=== PATIENT | male | born 1950 | race Caucasian/White ===

== ENCOUNTER 2018-04-18 11:48 | Emergency (ER) | payer MEDICARE, SELFPAY ==
[2018-04-18 11:51] VITALS: BP 141/104; PULSE 110; RESP 25; TEMP 36.7; O2SAT 91; BMI 25.2
[2018-04-18 11:59] VITALS: BP 141/104; PULSE 109; RESP 18
--- NOTE | 2018-04-18 12:09 | NURSING ---
NO OLD EKGS
--- NOTE | 2018-04-18 12:19 | EKG12_ITS ---
Test Reason : AFIB Blood Pressure : / mmHG Vent. Rate : 107 BPM Atrial Rate : 107 BPM P-R Int : 280 ms QRS Dur : 108 ms QT Int : 324 ms P-R-T Axes : 000 -60 066 degrees QTc Int : 432 ms Sinus tachycardia with 1st degree A-V block with Premature atrial complexes with Aberrant conduction Left axis deviation Possible Lateral infarct , age undetermined Inferior infarct , age undetermined , cannot be excluded Abnormal ECG Confirmed by COBY WADSWORTH, KEITH ([id number]), multimedia editor MARYLIN ENGLE ([id number]) on 04/21/2018 1:32:35 PM Referred By: EKATERINA Confirmed By:KEITH TENORIO MD
[2018-04-18 12:51] LABS: Absolute Lymphocyte Count 1.45 X10^3/ul (0.83-4.51); Absolute Neutrophil Count 14.3 X10^3/uL (2.0-7.7); Basophil# 0.08 X10^3/uL; Basophil% 0.5 % (0-1); Eosinophil# 0.12 X10^3/uL; Eosinophils% 0.7 % (0-5); Hematocrit 41.4 % (40-54); Hemoglobin 13.4 g/dl (13.0-16.5); Lymphocyte # 1.45 X10^3/ul (4.0); Lymphocyte % 8.5 % (19-41); Mean Corp Hgb Conc 32.4 g/gl (32-36); Mean Corpuscular Hgb 29.9 pg (27.0-32.0); Mean Corpuscular Volume 92.4 fL (80-94); Mean Platelet Vol. 10.7 fl (6.2-12.0); Monocyte# 1.03 X10^3/uL; Neutrophil # 14.29 X10^3/uL (2.7-7.7); Neutrophil % 83.4 % (47-70); Platelet Count 236 K/mm3 (150-450); RBC Distribution Width SD 49.4 fl (35.1-43.9); Red Blood Count 4.48 M/mm3 (4.6-6.2); White Blood Count 17.1 K/mm3 (4.4-11.0)
[2018-04-18 12:52] LABS: POSITIVE COUNT NO; POSITIVE DIFFERENTIAL NO; POSITIVE MORPHOLOGY NO
--- NOTE | 2018-04-18 13:02 | RAD_ITS ---
STUDY: X-RAY CHEST REASON FOR EXAM: Male, 67 years old. Cough. Nausea and vomiting. TECHNIQUE: Single AP portable view of the chest. COMPARISON: None. FINDINGS: EKG electrodes are seen. There is blunting of the left costophrenic angle with mild increased markings at the left lung base. Follow-up is recommended. There is mild cardiac enlargement. Normal mediastinum and merrill. Normal visualized pulmonary arteries. There is atherosclerotic calcification of the aortic arch with tortuosity. There are diffuse degenerative changes of the visualized thoracic spine. Normal visualized ribs, clavicles, and shoulders. There is no demonstrated abnormality of the visualized soft tissue structures of the upper abdomen. RAD/Chest 1 View (Portable) IMPRESSION: Mild increased markings at the left lung base with blunting of the left costophrenic angle. Electronically Signed: Jose Trejo MD at 13:51 EST Tel [phone], Service support ,
[2018-04-18 13:03] LABS: Anion Gap 4 (5-15); BUN 30 mg/dL (7-18); Calcium,Total 9.2 mg/dL (8.5-10.1); Chloride 97 mmol/L (98-107); Creatinine, Serum 0.53 mg/dL (0.70-1.30); EST Glomerular Filtration Rate 167 mL/min (>60); Est Glom Filt Rate - Afr Amer 202 mL/min (>60); Estimated Creatinine Clearance 152.52 ml/min; Glucose 135 mg/dL (74-106); Potassium 4.8 mmol/L (3.5-5.1); Sodium Level 132 mmol/L (136-145)
[2018-04-18 13:17] LABS: BNP,B-Type NATRIURETIC PEPTIDE 196.7 pg/mL (0-100)
[2018-04-18 14:00] VITALS: BP 129/93; PULSE 97; RESP 30; O2SAT 96
[2018-04-18] MEDS: levoFLOXacin IV 500 MG/100 ML BAG 100 MG IV (14:19)
[2018-04-18] MEDS: Ipratropium/Albuterol Sulfate 3 ML AMPUL.NEB INHALATION (14:23)
[2018-04-18 14:24] VITALS: PULSE 99; RESP 21
--- NOTE | 2018-04-18 15:12 | ED.RN ---
RED PATCHES NOTED ON L FOREARM AND ANTECUBITAL AREA, LEVAQUIN STOPPED. FAMILY CONCERNED OF ALLERGY TO IV MEDICATION. NO DUSSEL AWARE.
--- NOTE | 2018-04-18 15:17 | ED.VISSUMM ---
- ER Visit Summary Date of Service: 04/18/18 Chief Complaint: Cough History of Present Illness: The patient is a 67 M with a recent hospitalization at [facility] complicated by respiratory failure. He was doing well at a local group home facility but over the past 2 days has developed a productive cough and fever. He has vomited 1-2 times but has not had abdominal pain or other complaints. His mental status has remained essentially at baseline except for occasional episodes of confusion but no new neurologic symptoms. Physical Examination: Vitals are within normal limits except for a pulse ox of 90% on room air. He is not in distress. His mucous members are somewhat dry. Breath sounds are diminished at both bases but he has an audible productive moist cough. Abdomen is soft and nontender. He has no focal or lateralizing neuro findings. He is alert and oriented x3. Test Results: White blood cell count is 17,100. Chemistries essentially within normal limits. Chest x-ray revealed a left lower lobe infiltrate. Blood and sputum cultures were sent. Urinalysis is pending. Emergency Department Course and Treatment: He was given intravenous Levaquin and started to have a rash around the injection site so was discontinued. I discussed the case at length with his nephew who is his power of compliance attorney. He feels strongly that this is a pneumonia and there is no evidence of any other source of the infection at this time. He has no abdominal pain or tenderness at all. His nephew requested that he be transferred to [facility]. I spoke with the hospitalist through the transfer line but his nephew did notify that he spoke with the measurement department chief clerk of the hospital and the director of the intensive care unit who are going to assume care on a different service but that this is going to be arranged through the transfer line. He has been accepted at [facility] and we are waiting for a bed assignment. Treatment Plan: Transfer to [facility] Disposition: Transfer, stable Impression: Initial encounter healthcare associated pneumonia This note was generated with [employer] dictation software. It may contain incorrect words, spelling, and punctuation that were not noted in review of the chart prior to signing ED Disposition - Plan for ED Patient: Chief Complaint: Nausea/Vomiting/Diarrhea Referrals: Kamilah Lopez [Primary Care Provider] -
--- NOTE | 2018-04-18 15:21 | ED.DCSUM_ITS ---
- ER Visit Summary Date of Service: 04/18/18 Chief Complaint: Cough History of Present Illness: The patient is a 67 M with a recent hospitalization at [facility] complicated by respiratory failure. [facility] but over the past 2 days has developed a productive cough and fever. He has vomited 1-2 times but has not had abdominal pain or other complaints. His mental status has remained essentially at baseline except for occasional episodes of confusion but no new neurologic symptoms. Physical Examination: Vitals are within normal limits except for a pulse ox of 90% on room air. He is not in distress. His mucous members are somewhat dry. Breath sounds are diminished at both bases but he has an audible productive moist cough. Abdomen is soft and nontender. He has no focal or lateralizing neuro findings. He is alert and oriented x3. Test Results: White blood cell count is 17,100. Chemistries essentially within normal limits. Chest x-ray revealed a left lower lobe infiltrate. Blood and sputum cultures were sent. Urinalysis is pending. Emergency Department Course and Treatment: He was given intravenous Levaquin and started to have a rash around the injection site so was discontinued. I discussed the case at length with his nephew who is his power of commonwealth attorney. He feels strongly that this is a pneumonia and there is no evidence of any other source of the infection at this time. He has no abdominal pain or tenderness at all. His nephew requested that he be transferred to [facility]. I spoke with the hospitalist through the transfer line but his nephew did notify that he spoke with the chief operator of the hospital and the director of the intensive care unit who are going to assume care on a different service but that this is going to be arranged through the transfer line. He has been accepted at [facility] and we are waiting for a bed assignment. Treatment Plan: Transfer to [facility] Disposition: Transfer, stable Impression: Initial encounter healthcare associated pneumonia This note was generated with [employer] dictation software. It may contain incorrect words, spelling, and punctuation that were not noted in review of the chart prior to signing ED Disposition - Plan for ED Patient: Chief Complaint: Nausea/Vomiting/Diarrhea Referrals: Kamilah Lopez [Primary Care Provider] -
[2018-04-18] MEDS: Piperacil/Tazobactam 3.375 GM/50 ML ML IV (16:31)
[2018-04-18 16:32] VITALS: BP 135/72; PULSE 93; RESP 21; O2SAT 96
--- NOTE | 2018-04-18 16:58 | NURSING ---
CALLED [facility] FOR BED STATUS
--- NOTE | 2018-04-18 17:06 | NURSING ---
[facility] 3RD FLOOR 321 A NURSE TO NURSE [phone]
--- NOTE | 2018-04-18 17:15 | NURSING ---
CALLED [facility]. ETA 15
[2018-04-18 17:50] VITALS: BP 122/87
--- NOTE | 2018-04-20 21:08 | ED.RN ---
BLOOD CULTURE RESULTS FAXED TO [facility]
--- OUTSIDE RECORDS SUMMARY | 2018-06-11 18:53 | XMS RPT_ITS ---
:1950 Author Organization OHIP Care Team Providers Name Role Phone Dr. Allie Parada Admitting Unavailable Dr. Allie Parada Attending Unavailable Jose Strong Referring Unavailable Hood, Jr Zandra Primary Care Unavailable Parada, Dr. Allie Ruiz Attending Unavailable Hood, Jr Zandra Primary Care Unavailable Parada, Dr. Allie Ruiz Attending Unavailable UNKNOWN, PCP Referring Unavailable Hood, Jr Zandra Primary Care Unavailable Parada, Dr. Allie Ruiz Attending Unavailable Hood, Jr Zandra Primary Care Unavailable Parada, Dr. Allie Ruiz Attending Unavailable Parada, Dr. Allie Ruiz Referring Unavailable Hood, Jr Zandra Primary Care Unavailable Parada, Dr. Allie Ruiz Admitting Unavailable Parada, Dr. Allie Ruiz Admitting Unavailable Parada, Dr. Allie Ruiz Referring Unavailable Hood, Jr Zandra Primary Care Unavailable Ashley, Dr. Shagufta Aguiar Attending Unavailable Parada, Dr. Allie Ruiz Attending Unavailable Hood, Jr Zandra Primary Care Unavailable BRITTANY COTTER Attending Unavailable GIACOMO BYNUM Referring Unavailable Hood, Jr Zandra Primary Care Unavailable Rosendo, Dr. Augustine Wells Attending Unavailable Jacques, Dr. Mika Germain Referring Unavailable Hood, Jr Zandra Primary Care Unavailable GRACIELA BARBOZA Admitting Unavailable CORRECT INFO, NEEDED Referring Unavailable Hood, Jr Zandra Primary Care Unavailable [place] HARDING Attending Unavailable ROSENQUIST, RUBIN W Referring Unavailable ROSENQUIST, RUBIN W Referring Unavailable ROSENQUIST, RUBIN W Referring Unavailable CARLIN, TEJA COYLE Referring Unavailable ROSENQUIST, RUBIN W Referring Unavailable ROSENQUIST, RUBIN W Referring Unavailable ROSENQUIST, RUBIN W Referring Unavailable ROSENQUIST, RUBIN W Referring Unavailable ROSENQUIST, RUBIN W Referring Unavailable ROSENQUIST, RUBIN W Referring Unavailable ROSENQUIST, RUBIN W Attending Unavailable NELLIE, CHRISTY Referring Unavailable ROSENQUIST, RUBIN W Attending Unavailable Сергей Robles Attending Unavailable Gamaliel, Kamilah Primary Care Unavailable TEJA CARLIN Referring Unavailable IMCA Primary Care Unavailable TEJA ORTEGA (PT) Attending Unavailable IMCA Referring Unavailable IMCA Primary Care Unavailable IMCA Referring Unavailable IMCA Primary Care Unavailable IMCA Referring Unavailable IMCA Primary Care Unavailable IMCA Referring Unavailable IMCA Primary Care Unavailable IMCA Referring Unavailable IMCA Primary Care Unavailable TEJA ORTEGA (PT) Attending Unavailable IMCA Referring Unavailable IMCA Primary Care Unavailable TEJA ORTEGA (PT) Attending Unavailable IMCA Referring Unavailable IMCA Primary Care Unavailable IMCA Referring Unavailable IMCA Primary Care Unavailable TEJA ORTEGA (PT) Attending Unavailable IMCA Referring Unavailable IMCA Primary Care Unavailable TEJA ORTEGA (PT) Attending Unavailable IMCA Referring Unavailable IMCA Primary Care Unavailable IMCA Referring Unavailable IMCA Primary Care Unavailable IMCA Referring Unavailable IMCA Primary Care Unavailable IMCA Referring Unavailable IMCA Primary Care Unavailable IMCA Referring Unavailable IMCA Primary Care Unavailable TEJA ORTEGA (PT) Attending Unavailable IMCA Referring Unavailable IMCA Primary Care Unavailable TEJA ORTEGA (PT) Attending Unavailable IMCA Referring Unavailable IMCA Primary Care Unavailable TEJA ORTEGA (PT) Attending Unavailable IMCA Referring Unavailable IMCA Primary Care Unavailable PROBLEMS PROBLEMS DATE TYPE CONDITION / CODE ATTENDING STATUS SOURCE 05/02/2018 Final diagnosis Essential (primary) [facility] hypertension / Hospitals I10(ICD-10) Repository 05/02/2018 Final diagnosis Allergy status to [facility] Active [place] (discharge) penicillin / Hospitals Z88.0(ICD-10) Repository 05/02/2018 Final diagnosis buttermaker continuous churn (current) [facility] use of insulin / Hospitals Z79.4(ICD-10) Repository 05/02/2018 Final diagnosis Acute respiratory [facility], NOUR [facility] ([facility]) failure with Hospitals hypercapnia / Repository J96.02(ICD-10) 05/02/2018 Final diagnosis [facility] failure with hypoxia Hospitals / J96.01(ICD-10) Repository 05/02/2018 Final diagnosis Pneumonitis due to [facility], NOUR Active [facility] ([facility]) inhalation of food Hospitals and vomit / Repository J69.0(ICD-10) 05/02/2018 Final diagnosis Obstructive sleep [facility], NOUR [facility] ([facility]) apnea (adult) Hospitals (pediatric) / Repository G47.33(ICD-10) 05/02/2018 Final diagnosis 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 mellitus with Hospitals hyperglycemia / Repository E11.65(ICD-10) 05/02/2018 Admitting Pneumonitis due to [facility], NOUR Active [facility] diagnosis inhalation of food Hospitals and vomit / Repository J69.0(ICD-10) 05/02/2018 Final diagnosis Hypo[facility]osmolality and [facility] hyponatremia / Hospitals E87.1(ICD-10) Repository 05/02/2018 Final diagnosis Moderate [facility], NOUR [facility] ([facility]) protein-calorie Hospitals malnutrition / Repository E44.0(ICD-10) 05/02/2018 Final diagnosis Bacteremia / [facility], NOUR [facility] ([facility]) R78.81(ICD-10) Hospitals Repository 05/02/2018 Final diagnosis 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[facility], NOUR [facility] ([facility]) cerebral infrc aff Hospitals right dominant side Repository / I69.351(ICD-10) 05/02/2018 Final diagnosis skilled nursing (current) [facility], NOUR [facility]) use of Hospitals anticoagulants / Repository Z79.01(ICD-10) 05/02/2018 Final diagnosis skilled nursing (current) [facility], NOUR [facility] use of inhaled Hospitals steroids / Repository Z79.51(ICD-10) 05/02/2018 Final diagnosis [facility] nicotine dependence Hospitals / Z87.891(ICD-10) Repository 05/02/2018 Final diagnosis Encounter for [facility], NOUR [facility] ([facility]) palliative care / Hospitals Z51.5(ICD-10) Repository 05/02/2018 Final diagnosis Gastrostomy status / [facility], NOUR [facility]) Z93.1(ICD-10) Hospitals Repository 05/02/2018 Final diagnosis Other disorders of [facility], NOUR [facility]) phosphorus Hospitals metabolism / Repository E83.39(ICD-10) 05/02/2018 Final diagnosis Personal history of [facility], NOUR [facility]) malignant neoplasm Hospitals of brain / Repository Z85.841(ICD-10) 05/02/2018 Final diagnosis Esophagitis, [facility], NOUR [facility] unspecified / Hospitals K20.9(ICD-10) Repository 05/02/2018 Final diagnosis Body mass index [facility] ([facility]charge) (BMI) 27.0-27.9, Hospitals adult / Repository Z68.27(ICD-10) 05/02/2018 Final diagnosis Oth bacterial agents [facility] [place] [facility] (discharge) as the cause of Hospitals diseases classd Repository elswhr / B96.89(ICD-10) 05/02/2018 Final diagnosis Emphysema, [facility] / Hospitals J43.9(ICD-10) Repository 05/02/2018 Final diagnosis Bronchitis, not [facility] [place] Active [place] (discharge) specified as acute Hospitals or chronic / Repository J40(ICD-10) 05/02/2018 Final diagnosis Dysphagia following [facility] ([facility]charge) cerebral infarction Hospitals / I69.391(ICD-10) Repository 05/02/2018 Final diagnosis Facial weakness [facility] ([facility]) following cerebral Hospitals infarction / Repository I69.392(ICD-10) 04/04/2018 Final diagnosis Nicotine dependence, Dr. 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 Ashley Active [place] (discharge) Pseudomonas / [facility] J15.1(ICD-10) Repository 04/04/2018 Final diagnosis Compression of brain Dr. Ashley Active [place] (discharge) / G93.5(ICD-10) [facility] Repository 04/04/2018 Final diagnosis Cerebral edema / Dr. Ashley Active [place] (discharge) G93.6(ICD-10) [facility] Repository 04/04/2018 Final diagnosis Pneumonia due to Dr. Ashley [facility]) Methicillin [facility] resistant Repository Staphylococcus aureus / J15.212(ICD-10) 04/04/[address] Ashley Active [place] (discharge) encephalopathy / [facility] G93.41(ICD-10) Repository 04/04/2018 Final diagnosis Toxic encephalopathy Dr. Ashley Active [place] (discharge) / G92(ICD-10) [facility] Repository 04/04/2018 Final diagnosis Atelectasis / Dr. Ashley Active [place] (discharge) J98.11(ICD-10) [facility] Repository 04/04/2018 Final diagnosis Hemiplegia, Dr. Ashley Active [place] (discharge) unspecified [facility] affecting right Repository dominant side / G81.91(ICD-10) 04/04/2018 Final diagnosis Other sites of Dr. Ashley Active [place] (discharge) candidiasis / [facility] B37.89(ICD-10) Repository 04/04/2018 Final diagnosis Acute embolism and Dr. Ashley Active [place] (discharge) [facility] veins of l up extrem Repository / I82.612(ICD-10) 04/04/2018 Final diagnosis Hyperosmolality and Dr. Ashley Active [place] (discharge) hypernatremia / [facility] E87.0(ICD-10) Repository 04/04/2018 Final diagnosis Oth postproc Dr. Ashley Active [place] (discharge) complications and [facility] disorders of nervous Repository sys / G97.82(ICD-10) 04/04/2018 Final diagnosis ACQUIRED ABSENCE OF Dr. Ashley Active [place] (discharge) LUNG / Z90.2(ICD-10) [facility] Repository 04/04/2018 Final diagnosis Diplopia / Dr. Ashley Active [place] (discharge) H53.2(ICD-10) [facility] Repository 04/04/2018 Final diagnosis Other esophagitis / Dr. Ashley Active [place] (discharge) K20.8(ICD-10) [facility] Repository 04/04/2018 Final diagnosis Dysarthria and Dr. Ashley Active [place] (discharge) anarthria / [facility] R47.1(ICD-10) Repository 04/04/2018 Final diagnosis Retention of urineAshley Dr. Active [place] (discharge) unspecified / [facility] R33.9(ICD-10) Repository 04/04/2018 Final diagnosis DysphagiaAshley Dr. Active [place] (discharge) oropharyngeal phase [facility] / R13.12(ICD-10) Repository 04/04/2018 Final diagnosis Physical restraint Dr. Ashley Active [place] (discharge) status / [facility] Z78.1(ICD-10) Repository 04/04/2018 Final diagnosis Facial weakness / Dr. Ashley Active [place] (discharge) R29.810(ICD-10) [facility] Repository 04/04/2018 Final diagnosis NIHSS score 7 / Dr. Ashley Active [place] (discharge) R29.707(ICD-10) [facility] Repository 04/04/2018 Final diagnosis Altered mental Dr. Ashley Active [place] (discharge) status, unspecified [facility] / R41.82(ICD-10) Repository 04/04/[address] Active [place] (discharge) unspecified / [facility] K59.00(ICD-10) Repository 04/04/[address] obstructive [address] Ashley Active [place] (discharge) pulmonary disease, [facility] unspecified / Repository J44.9(ICD-10) 04/04/2018 Final diagnosis Pressure ulcer of Dr. Ashley Active [place] (discharge) right buttock, stage [facility] 1 / L89.311(ICD-10) Repository 04/04/[address] Active [place] (discharge) unspecified / [facility] G24.9(ICD-10) Repository 04/04/2018 Final diagnosis NIHSS score 18 / Dr. Ashley Active [place] (discharge) R29.718(ICD-10) [facility] Repository 04/04/2018 Final diagnosis Hyperkalemia / Dr. Ashley Active [place] (discharge) E87.5(ICD-10) [facility] Repository 04/04/2018 Final diagnosis Other disorders of Dr. Ashley Active [place] (discharge) meninges, not [facility] elsewhere classified Repository / G96.19(ICD-10) 02/10/2018 Final diagnosis Benign neoplasm of Tal, Active [place] (discharge) [facility], [facility] unspecified / Repository D32.9(ICD-10) 02/10/2018 Final diagnosis Type [address] Tal Active [place] (discharge) mellitus without [facility] complications / Repository E11.9(ICD-10) 02/10/2018 Active Benign neoplasm of Dr. Tal Active [facility] unspecified / Repository D32.9(ICD-10) 02/10/2018 Admitting Benign neoplasm of Dr. Tal Active [place] diagnosis mening, [facility] unspecified / Repository D32.9(ICD-10) 12/15/[address] Tal Active [place] diagnosis unspecified behavior [facility] of brain / Repository D49.6(ICD-10) 10/01/2017 Active Low back pain / NA Active [place] M54.5(ICD-10) Clinic Other [place] Repository 10/01/2017 Active Other chronic pain / NA Active [place] G89.29(ICD-10) Clinic Other [place] Repository 10/01/2017 Active Cervicalgia / NA Active [place] M54.2(ICD-10) Clinic Other [place] Repository 10/01/2017 Active Other malaise / NA Active [place] R53.81(ICD-10) Clinic Other [place] Repository 10/01/2017 Active Unspecified NA Active [place] abnormalities of Clinic Other gait and mobility / [place] R26.9(ICD-10) Repository 09/15/2017 Active Unknown / NA Active [place] UNK(Unknown) Clinic Other [place] Repository 06/07/2017 Admitting Unknown / NA Active [facility] diagnosis UNK(Unknown) Health System Repository PROCEDURES PROCEDURES DATE CODE DESCRIPTION STATUS SOURCE 03/18/2018 [id number](ICD10- [id number] Completed [facility] Hospitals Repository 03/14/2018 62P520Z(ICD10- 33Y855B Completed [facility]) Hospitals Repository 02/24/2018 319Z1XO(ICD10- 542D3MJ Completed [facility]) Hospitals Repository 02/21/2018 4AV70JX(ICD10- 7ZK69EK [facility]pleted [facility] Repository 02/16/2018 7JW35US(ICD10- 9UD91UM [facility]pleted [facility] Repository 02/16/2018 [id number](ICD10- 4LDB5LL Completed [facility] Repository 02/15/2018 84G931R(ICD10- 88E604U [facility]pleted [facility] Repository 02/15/2018 3C1V98M(ICD10- 1U1Z51M Completed [facility] Repository 02/15/2018 [id number](ICD10- 9SP7EKH Completed [facility] Repository 02/15/2018 4NO79WS(ICD10- 7EZ61KF Completed [facility] Repository 02/11/2018 65L79ZW(ICD10- 29S93XS Completed [facility] Repository 02/11/2018 5BN60JD(ICD10- 5DK33HZ Completed [facility] Repository 02/11/2018 28Q89JW(ICD10- 40S96VK Completed [facility] Repository 02/11/2018 4E33IUI(ICD10- 1C17NRL Completed [facility] Repository 02/10/2018 90171([facility]PCS 31450 Completed [facility]) Hospitals Repository 02/10/2018 91295([facility]PCS 23165 Completed [facility] Hospitals Repository 02/10/2018 99749([facility]PCS 73939 Completed [facility] Hospitals Repository 02/10/2018 92471([facility]PCS 18344 Completed [facility] Hospitals Repository 02/10/2018 70101([facility]PCS 74062 Completed [facility] Hospitals Repository RESULTS RESULTS GLUCOSE-POCT Collected: 05/02/2018 Status: F Source: [facility] 2:48 PM HOSPITALS REPOSITORY TYPE CODE TESTS RESULT OUT OF RANGE REFERENCE UNITS LAB GLUP(LOINC) 74 - 99 mg/dL High 151 GLUCOSE-POCT Performed By: #### GLUPO #### [facility] [address] [place] [address] GLUCOSE-POCT Collected: 05/02/2018 Status: F Source: [facility] 1:13 PM HOSPITALS REPOSITORY TYPE CODE TESTS RESULT OUT OF RANGE REFERENCE UNITS LAB GLUP(LOINC) 74 - 99 mg/dL High 168 GLUCOSE-POCT Performed By: #### GLUPO #### [facility] [address] [place] [id number] CBC Collected: 05/02/2018 Status: F Source: [facility] 8:05 HOSPITALS REPOSITORY TYPE CODE TESTS RESULT OUT OF REFERENCE UNITS RANGE LAB WBCR(LOINC 4.4 - 11.3 x10E9/L ) WBC High 14.0 LAB NRBC(LOINC 0.0-0.0 /100 WBC ) NUCLEATED RBC 0.0 LAB RBCCT(LOIN 4.50 - 5.90 x10E12/L C) RBC 4.65 LAB HGB(LOINC) 13.5 - 17.5 g/dL HGB 13.5 LAB HCT(LOINC) 41.0 - 52.0 % HCT 43.6 LAB MCV(LOINC) 80 - 100 fL MCV 94 LAB MCHC2(LOIN 32.0 - 36.0 g/dL C) Low MCHC 31.0 LAB PLTCT(LOIN 150 - 450 x10E9/L C) PLT 301 LAB RDWCV(LOIN 11.5 - 14.5 % C) RDW-CV 14.5 Performed By: #### CBC #### [facility] [address] [place] [id number] RENAL FUNCTION PANEL Collected: 05/02/2018 Status: F Source: [facility] 8:[address] [place] [address] REPOSITORY TYPE CODE TESTS RESULT OUT OF REFERENCE UNITS RANGE LAB GLU(LOINC) 74 - 99 mg/dL GLUCOSE High 191 LAB SOD(LOINC) 136 - 145 mmol/L SODIUM 138 LAB K(LOINC) 3.5 - 5.3 mmol/L POTASSIUM 4.9 LAB CHLOR(LOIN 98 - 107 mmol/L C) CHLORIDE 98 LAB BIC(LOINC) 21 - 32 mmol/L BICARBONATE 30 LAB ANGAP(LOIN 10 - 20 mmol/L C) ANION GAP 15 LAB UREA(LOINC 6 - 23 mg/dL ) UREA High NITROGEN 37 LAB CREA(LOINC 0.50 - 1.30 mg/dL ) Low CREATININE 0.45 LAB GFRFN(LOIN >60 mL/min/1.7 C) 3m2 GFR-NON AM. >60 LAB GFRAA(LOIN >60 mL/min/1.7 C) 3m2 GFR- AM. >60 Result Comment: CALCULATIONS OF ESTIMATED GFR ARE PERFORMED USING THE MDRD STUDY EQUATION FOR THE IDMS-TRACEABLE CREATININE METHODS. CLIN CHEM 2007;53:766-72 LAB CA(LOINC) 8.6 - 10.6 mg/dL CALCIUM 9.7 LAB PHOS(LOINC) 2.5 - 4.9 mg/dL PHOSPHORUS 3.0 Result Comment: The performance characteristics of phosphorus testing in heparinized plasma have been validated by the individual laboratory site where testing is performed. Testing on heparinized plasma is not approved by the FDA; however, such approval is not necessary. LAB ALB(LOINC) 3.4 - 5.0 g/dL Low ALBUMIN 3.0 Performed By: #### RENAL #### [facility] [address] [place] [address] GLUCOSE-POCT Collected: 05/02/2018 Status: F Source: [facility] 5:32 AM [facility] REPOSITORY TYPE CODE TESTS RESULT OUT OF RANGE REFERENCE UNITS LAB GLUP(LOINC) 74 - 99 mg/dL High 174 GLUCOSE-POCT Performed By: #### GLUPO #### [facility] [address] [place] [address] GLUCOSE-POCT Collected: 05/02/2018 Status: F Source: [facility] 12:28 AM HOSPITALS REPOSITORY TYPE CODE TESTS RESULT OUT OF RANGE REFERENCE UNITS LAB GLUP(LOINC) 74 - 99 mg/dL High 151 GLUCOSE-POCT Performed By: #### GLUPO #### [facility] [address] [place] [address] GLUCOSE-POCT Collected: 05/01/2018 Status: F Source: [facility] 8:20 PM HOSPITALS REPOSITORY TYPE CODE TESTS RESULT OUT OF RANGE REFERENCE UNITS LAB GLUP(LOINC) 74 - 99 mg/dL High 176 GLUCOSE-POCT Performed By: #### GLUPO #### [facility] [address] [place] [address] GLUCOSE-POCT Collected: 05/01/2018 Status: F Source: [facility] 3:29 PM [facility] REPOSITORY TYPE CODE TESTS RESULT OUT OF RANGE REFERENCE UNITS LAB GLUP(LOINC) 74 - 99 mg/dL High 162 GLUCOSE-POCT Performed By: #### GLUPO #### [facility] [address] [place] [address] DAILY PROGRESS Observed: 05/01/2018 Status: COMPLETED Source: [facility]MEDICINE 1:16 PM HOSPITALS REPOSITORY Service: Medicine Subjective Data: DIPESH BERMUDEZ is a 67 year old Male who is Hospital Day # 14. 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 Admitted to medicine. 05/01: . The patient states he looked okay and his only complaint is a mild headache which he also complained of yesterday. Patient states this is an ongoing problem. Patient denies any other pain, difficulty breathing, nausea vomiting, or any other issues at this time. Objective Data: Objective Information: ---- Intake and Output ----- Mn/Dy/Year TimeIntakeOutputNet May 01, 2018 6:00 [id number] Apr 30, 2018 10:00 [id number] Apr 30, 2018 2:00 [id number] The Intake and Output Totals for the last 24 hours are: IntakeOutputNet 3320nullnull T PRBPSpO2 [id number]/8898% Date/Time05/01 6: 6: 6: 6: 6:58 Range(35.9C - 37.1C ) (71 - 82 ) (18 - 18 ) (129 - 137 )/ (74 - 88 ) (92% - 98% ) Highest temp of 37.1 C was recorded at 04/30 15:25 Physical exam: General: Vitals noted, no acute distress. Afebrile. Alert and oriented x 1. Head: atraumatic and normocephalic Eyes: Pupils equal round reactive to light, EOMs are intact, conjunctivae is not injected. Oropharynx: no trismus or drooling, buccal mucosa is moist. Neck: Supple, full range of motion, Cardiac: Regular rate and rhythm. No murmurs noted. Pulmonary: Lungs clear bilaterally with good aeration. No adventitious breath sounds. No wheezes rales or rhonchi. No accessory muscle use no retraction noted. Abdomen: Soft, Nontender. No guarding, rigidity, or distention. Normoactive bowel sounds. No pulsatile masses, no bruits. Extremities: No pitting edema. Full range of motion. Distal pulses are intact. Skin: No rash seen. Skin is warm and dry Neuro: Patient is alert and oriented x1. Speech is clear. There is no asymmetry with facial grimaces, and no tongue deviation. Patient moves all extremities independently although minimal range of motion of lower extremities. Hospital course: History is provided by the patient and we reviewed the medical records. Vital signs and nurses notes were reviewed. Patient's CBC shows a white blood cell count of 13.2, hemoglobin 12.8 hematocrit is 42.8, platelets are normal. Patient's renal function panel is within normal limits other than a glucose of 109, chloride 96, BUN of 37, creatinine 0.47, and albumin low at 2.9 Patient is awaiting precertification to return to his shelter facility Medication: Medications: Continuous Medications No continuous medications are active Scheduled Medications 1. Artificial Tears (Preservative Free): 2 drop(s) Both Eyes Every 4 Hours 2. Atorvastatin: 40 mg Oral Daily 3. Budesonide 0.5 mg/ 2 mL Nebulizer Soln: 2 mL Inhalation Every 12 Hours 4. Docusate Oral Liquid: 100 mg Oral 2 Times a Day 5. Enoxaparin SubCutaneous: 40 mg SubCutaneous Every 24 Hours 6. Esomeprazole Oral Packet: 40 mg NasoGastric Tube 2 Times a Day 7. Formoterol 20 microgram/ 2 mL Neb Soln: 2 mL Inhalation Every 12 Hours 8. guaiFENesin Oral Liquid: 400 mg Oral Every 6 Hours 9. Insulin Glargine (Lantus) Injectable: 15 unit(s) SubCutaneous Every 24 Hours 10. Insulin Lispro Mild Corrective Scale: unit(s) SubCutaneous Every 4 Hours 11. Nystatin 100,000 Units/ gram Topical: 1 application(s) Topical 3 Times a Day 12. Saliva Substitute: 15 mL Oral 4 Times a Day 13. Silodosin (NON - Formulary): 8 mg Oral Daily 14. Simethicone Oral Liquid Drops: 80 mg Oral 4 Times a Day After Meals 15. Valproic Acid (Depakene) Oral Liquid: 500 mg PEG Tube <User Schedule> PRN Medications 1. Acetaminophen Oral Liquid: 650 mg Gastrostomy Tube Every 4 Hours 2. Albuterol 2.5 mg/ 3 mL Nebulizer Soln: 3 mL Inhalation Every 6 Hours 3. Dextrose 50% in Water Injectable: 25 gram(s) IntraVenous Push Every 15 Minutes 4. Glucagon Injectable: 1 mg IntraMuscular Every 15 Minutes 5. Polyethylene Glycol: 17 gram(s) Oral Daily Recent Lab Results: Results: I have reviewed these laboratory results: Complete Blood Count Trending View [id number] 08:15:00 -Apr-2018 08:30:00 White Blood Cell Count13.2 H 11.8 H Nucleated Erythrocyte Count0.0 0.0 Red Blood Cell Count4.36 L 4.73 HGB12.8 L 13.8 HCT42.8 45.4 MCV98 96 MCHC29.9 L 30.4 L GTP569 187 RDW-CV14.7 H 14.7 H Renal Function Panel Trending View [id number] 08:15:00 -Apr-2018 08:30:00 Glucose, Cyfsz414 H 173 H NA137 136 K4.8 4.7 CL96 L 100 Bicarbonate, Serum31 26 Anion Gap, Serum15 15 BUN37 H 37 H CREAT0.47 L 0.44 L GFR-Non >60 >60 GFR->60 >60 Calcium, Serum9.6 9.0 Phosphorus, Serum3.5 3.0 ALB2.9 L 2.7 L Assessment and Plan: Additional Dx: Respiratory failure with hypoxia: Entered Date: 28-Apr-2018 18:11 Hyponatremia: Entered Date: 28-Apr-2018 18:09 Bacteremia: Entered Date: 24-Apr-2018 21:10 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 continuous churn current use of insulin: Entered Date: 19-Apr-2018 19:36 Type 2 diabetes mellitus without complication: Entered Date: 19-Apr-2018 19:36 COPD (chronic obstructive pulmonary disease): Entered Date: 19-Apr-2018 19:36 Pneumonia: Entered Date: 18-Apr-2018 21:38 Assessment: This is a 67 year old male with history significant for HTN, type II DM, COPD, left lung resection in (for unclear reasons), CYNTHIA, and meningioma s/p craniotomy with resection 2013 (at [facility]) who was recently admitted 02/10/18-04/04/18 for meningioma resection with 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 Admitted to medicine. In a shared visit with Dr. Harding # PNA: - Pulmonology consulted -> signed off. Likely recurrent aspiration pneumonia - Chest CT 04/22 to assist with further plan for antibiotics --> Bronchial wall thickening predominantly in the lower lobes, and left lower lobe tree-in-bud opacity. Bronchiolitis/small airway disease, likely infectious in etiology. Pulmonary recommends to continue antibiotics x 2 weeks course. - One set of blood cultures was sent at [facility] 04/18 - per phone requested result on 04/22 --> aerobic vial positive for gram negative rods and 04/23 Breveundimonis diminuta - roman sensitive reported. - Blood cultures from 04/18 [place] negative -final. - ID consulted: started on ceftriaxone 2 gm every 24 hours for total of 10 days - Ceftriaxone completed course on 04/27 - continue EZ pap and vest therapy - weaned off supplemental 02. Satting 92-96% on RA - bronchial hygiene - spiritual support - repeat BC, UA, UC all negative with no growth on 04/29 - No need for further antibiotics at this time. Patient is stable with no fevers, no new oxygen requirement, a stable white blood cell count, no pain, no shortness of breath, patient is asymptomatic, and the workup shows no signs of current infection. - decreased WBC on 04/30, downtrending - Updated nephew Donta, he agrees with plan for pt to return to [facility] - Infectious disease felt the patient had no antibiotic requirements at this time. - Patient is ready to return to the shelter facility. # COPD: - continue inhaled formoterol and budesonide - hold off with Advair as he is unable to comply with medication administration - continue PRN albuterol nebulizer treatments # Dysphagia s/p PEG tube placement: - repeat MBS 04/21 with speech therapy recommending to continue NPO with PEG tube feedings. - Repeat MBSS in 2-3 months. - NPO status with PEG tube feedings - continue Diabetic Source tube feedings and free water flushes # Grade D esophagitis: - continue PPI BID (plan was for him to be on this for 3 months following EGD on 02/21/18) - arranged for outpatient GI follow up on 06/06/18 # Type II DM: - continue Lantus 15 units daily (home dose 30 units daily) - ISS - hypo-/ hyperglycemia protocol # CYNTHIA: - continue CPAP at night # DVT Prophylaxis: - enoxaparin, b/l SCD Code status: - DNAR/DNI # Discharge disposition: - pt was at SNF prior to going to [facility]. Anel Macias reporting that has mild cognitive deficits at baseline and has a low IQ. - PT recommending SNF - anel Macias updated. He would like him to return to prior SNF - No need for further antibiotics at this time. Patient is stable with no fevers, no new oxygen requirement, a stable white blood cell count, no pain, no shortness of breath, patient is asymptomatic, and the workup shows no signs of current infection. - decreased WBC on 04/30, downtrending - Updated kassandraew Donta, he agrees with plan for pt to return to [facility] - Infectious disease felt the patient had no antibiotic requirements at this time. - Patient is ready to return to the shelter facility. - SW aware, waiting on precert Signature/Cosignature/Attestation: Attending Only - Shared Visit with Advanced Practice ProviderThis is a shared visit. I have reviewed the Advanced Practice Providers encounter note, approve the Advanced Practice Providers documentation, and provide the following additional information from my personal encounter. 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 Admitted to medicine. # PNA: - Pulmonology consulted -> signed off. Likely recurrent aspiration pneumonia - Chest CT 04/22 to assist with further plan for antibiotics --> Bronchial wall thickening predominantly in the lower lobes, and left lower lobe tree-in-bud opacity. Bronchiolitis/small airway disease, likely infectious in etiology. Pulmonary recommends to continue antibiotics x 2 weeks course. - One set of blood cultures was sent at [facility] 04/18 - per phone requested result on 04/22 --> aerobic vial positive for gram negative rods and 04/23 Breveundimonis diminuta - roman sensitive reported. - Blood cultures from 04/18 [place] negative -final. - ID consulted: started on ceftriaxone 2 gm every 24 hours for total of 10 days- finished 04/27 - repeat BC, UA, UC all negative with no growth on 04/29 - No need for further antibiotics at this time. Patient is stable with no fevers, no new oxygen requirement, a stable white blood cell count, no pain, no shortness of breath, patient is asymptomatic, and the workup shows no signs of current infection. - Attempted to update his nephew Donta on 04/29 but was unable to reach him. I left a message for him to call back. - Infectious disease felt the patient had no antibiotic requirements at this time. - Patient is ready to return to the shelter facility. rest of the plan per the HANDLE SANDER OPERATOR note. Electronic Signatures: Nam Muro (PAC) (Signed 01-May-2018 13:22) Authored: Service, Subjective Data, Objective Data, Assessment and Plan, Signature/Cosignature/Attestation Phoenix Harding) (Signed 02-May-2018 07:51) Authored: Signature/Cosignature/Attestation Co-Signer: Service, Subjective Data, Objective Data, Assessment and Plan, Signature/Cosignature/Attestation Last Updated: 02-May-2018 07:51 by Phoenix Harding) GLUCOSE-POCT Collected: 05/01/2018 Status: F Source: [facility]ABEL 11:12 AM [facility]OS[facility]ITALS REPOSITORY TYPE CODE TESTS RESULT OUT OF RANGE REFERENCE UNITS LAB GLUP(LOINC) 74 - 99 mg/dL High 177 GLUCOSE-POCT Performed By: #### GLUPO #### [facility] [id number] [place] [id number] CBC Collected: 05/01/2018 Status: F Source: [facility] 8:15 AM HOSPITALS REPOSITORY TYPE CODE TESTS RESULT OUT OF REFERENCE UNITS RANGE LAB WBCR(LOINC 4.4 - 11.3 x10E9/L ) WBC High 13.2 LAB NRBC(LOINC 0.0-0.0 /100 WBC ) NUCLEATED RBC 0.0 LAB RBCCT(LOIN 4.50 - 5.90 x10E12/L C) Low RBC 4.36 LAB HGB(LOINC) 13.5 - 17.5 g/dL Low HGB 12.8 LAB HCT(LOINC) 41.0 - 52.0 % HCT 42.8 LAB MCV(LOINC) 80 - 100 fL MCV 98 LAB MCHC2(LOIN 32.0 - 36.0 g/dL C) Low MCHC 29.9 LAB PLTCT(LOIN 150 - 450 x10E9/L C) PLT 282 LAB RDWCV(LOIN 11.5 - 14.5 % C) High RDW-CV 14.7 Performed By: #### CBC #### [facility] [address] [place] [id number] RENAL FUNCTION PANEL Collected: 05/01/2018 Status: F Source: [facility] 8:15 AM HOSPITALS REPOSITORY TYPE CODE TESTS RESULT OUT OF REFERENCE UNITS RANGE LAB GLU(LOINC) 74 - 99 mg/dL GLUCOSE High 109 LAB SOD(LOINC) 136 - 145 mmol/L SODIUM 137 LAB K(LOINC) 3.5 - 5.3 mmol/L POTASSIUM 4.8 LAB CHLOR(LOIN 98 - 107 mmol/L C) Low CHLORIDE 96 LAB BIC(LOINC) 21 - 32 mmol/L BICARBONATE 31 LAB ANGAP(LOIN 10 - 20 mmol/L C) ANION GAP 15 LAB UREA(LOINC 6 - 23 mg/dL ) UREA High NITROGEN 37 LAB CREA(LOINC 0.50 - 1.30 mg/dL ) Low CREATININE 0.47 LAB GFRFN(LOIN >60 mL/min/1.7 C) 3m2 GFR-NON AM. >60 LAB GFRAA(LOIN >60 mL/min/1.7 C) 3m2 GFR- AM. >60 Result Comment: CALCULATIONS OF ESTIMATED GFR ARE PERFORMED USING THE MDRD STUDY EQUATION FOR THE IDMS-TRACEABLE CREATININE METHODS. CLIN CHEM 2007;53:766-72 LAB CA(LOINC) 8.6 - 10.6 mg/dL CALCIUM 9.6 LAB PHOS(LOINC) 2.5 - 4.9 mg/dL PHOSPHORUS 3.5 Result Comment: The performance characteristics of phosphorus testing in heparinized plasma have been validated by the individual laboratory site where testing is performed. Testing on heparinized plasma is not approved by the FDA; however, such approval is not necessary. LAB ALB(LOINC) 3.4 - 5.0 g/dL Low ALBUMIN 2.9 Performed By: #### RENAL #### [facility] [id number] [place] [address] GLUCOSE-POCT Collected: 05/01/2018 Status: F Source: IDABEL 7:11 AM [facility] REPOSITORY TYPE CODE TESTS RESULT OUT OF RANGE REFERENCE UNITS LAB GLUP(LOINC) 74 - 99 mg/dL High 123 GLUCOSE-POCT Performed By: #### GLUPO #### [facility] [address] [place] [address] GLUCOSE-POCT Collected: 05/01/2018 Status: F Source: [facility] 12:07 AM [facility]OSPITALS REPOSITORY TYPE CODE TESTS RESULT OUT OF RANGE REFERENCE UNITS LAB GLUP(LOINC) 74 - 99 mg/dL High 168 GLUCOSE-POCT Performed By: #### GLUPO #### [facility] [address] [place] [address] GLUCOSE-POCT Collected: 04/30/2018 Status: F Source: IDABEL 8:11 PM HOSPITALS REPOSITORY TYPE CODE TESTS RESULT OUT OF RANGE REFERENCE UNITS LAB GLUP(LOINC) 74 - 99 mg/dL High 125 GLUCOSE-POCT Performed By: #### GLUPO #### [facility] [address] [place] [address] DAILY PROGRESS Observed: 04/30/2018 Status: COMPLETED Source: [facility]ERS[facility] NOTE-MEDICINE 4:41 PM HOSPITALS REPOSITORY Service: Medicine Subjective Data: DIPESH BERMUDEZ is a 67 year old Male who is Hospital Day # 13. 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 Admitted to medicine. today, 04/30, the patient states he's had a slight frontal headache that started 2 weeks ago, however he has not mentioned this before. Patient denies any other pain or complaints. Overnight Events: Patient had an uneventful night. Objective Data: Objective Information: ---- Intake and Output ----- Mn/Dy/Year TimeIntakeOutputNet Apr 30, 2018 2:00 [id number] Apr 29, 2018 10:00 [id number] The Intake and Output Totals for the last 24 hours are: IntakeOutputNet 300nullnull T PRBPSpO2 [id number]/7492% Date/Time04/30 15: 15: 15: 15: 15:25 Range(36.7C - 37.1C ) (79 - 85 ) (18 - 18 ) (125 - 133 )/ (74 - 88 ) (92% - 96% ) Highest temp of 37.1 C was recorded at 12 15:25 Physical exam: General: Vitals noted, no acute distress. Afebrile. Alert and oriented to name only today, but is pleasant and cooperative. Head: atraumatic and normocephalic Eyes: Pupils equal round reactive to light, EOMs are intact, conjunctivae is not injected. Oropharynx: no trismus or drooling, buccal mucosa is moist. Neck: Supple, full range of motion, Cardiac: Regular rate and rhythm. No murmurs noted. Pulmonary: Lungs clear bilaterally with good aeration. No adventitious breath sounds. No wheezes rales or rhonchi. No accessory muscle use no retraction noted. Abdomen: Soft, Nontender. No guarding, rigidity, or distention. Normoactive bowel sounds. No pulsatile masses, no bruits. Extremities: No pitting edema. Full range of motion to upper extremities but decreased range of motion to lower extremities. Distal pulses are intact. Skin: No rash seen. Skin is warm and dry Neuro: Patient is alert and oriented to person only today. Speech is clear. There is no asymmetry with facial grimaces, and no tongue deviation. Patient moves all extremities independently, but has very little ROM to lower extremities. Hospital course: History is provided by the patient and we reviewed the medical records. Vital signs and nurses notes were reviewed. Patient's CBC today reveals a decreased white blood cell count 11.8, H&H, and platelets were within normal limits. Overall the CBC is improved from the prior study. The renal function panel is within normal limits other than a glucose of 173, BUN of 37, creatinine low at 0.44, and albumin low at 2.7. We discussed all the findings result etc. and ID consult recommendations with the patient's nephew Donta. He is pleased about the downtrend of the WBC count and agrees with the plan for patient to return to [facility] in [place], [place]. Per no precertification yet. Medication: Medications: Continuous Medications No continuous medications are active Scheduled Medications 1. Artificial Tears (Preservative Free): 2 drop(s) Both Eyes Every 4 Hours 2. Atorvastatin: 40 mg Oral Daily 3. Budesonide 0.5 mg/ 2 mL Nebulizer Soln: 2 mL Inhalation Every 12 Hours 4. Docusate Oral Liquid: 100 mg Oral 2 Times a Day 5. Enoxaparin SubCutaneous: 40 mg SubCutaneous Every 24 Hours 6. Esomeprazole Oral Packet: 40 mg NasoGastric Tube 2 Times a Day 7. Formoterol 20 microgram/ 2 mL Neb Soln: 2 mL Inhalation Every 12 Hours 8. guaiFENesin Oral Liquid: 400 mg Oral Every 6 Hours 9. Insulin Glargine (Lantus) Injectable: 15 unit(s) SubCutaneous Every 24 Hours 10. Insulin Lispro Mild Corrective Scale: unit(s) SubCutaneous Every 4 Hours 11. Nystatin 100,000 Units/ gram Topical: 1 application(s) Topical 3 Times a Day 12. Saliva Substitute: 15 mL Oral 4 Times a Day 13. Silodosin (NON - Formulary): 8 mg Oral Daily 14. Simethicone Oral Liquid Drops: 80 mg Oral 4 Times a Day After Meals 15. Valproic Acid (Depakene) Oral Liquid: 500 mg PEG Tube <User Schedule> PRN Medications 1. Acetaminophen Oral Liquid: 650 mg Gastrostomy Tube Every 4 Hours 2. Albuterol 2.5 mg/ 3 mL Nebulizer Soln: 3 mL Inhalation Every 6 Hours 3. Dextrose 50% in Water Injectable: 25 gram(s) IntraVenous Push Every 15 Minutes 4. Glucagon Injectable: 1 mg IntraMuscular Every 15 Minutes 5. Polyethylene Glycol: 17 gram(s) Oral Daily Recent Lab Results: Results: I have reviewed these laboratory results: Complete Blood Count Trending View [id number] 08:30:00 29-Apr-2018 06:24:00 White Blood Cell Count11.8 H 13.6 H Nucleated Erythrocyte Count0.0 0.0 Red Blood Cell Count4.73 4.45 L HGB13.8 13.0 L HCT45.4 41.6 MCV96 93 MCHC30.4 L 31.3 L JTW933 290 RDW-CV14.7 H 14.7 H Renal Function Panel Trending View [id number] 08:30:00 29-Apr-2018 06:24:00 Glucose, Tbwta243 H 170 H NA136 135 L K4.7 4.6 CL100 96 L Bicarbonate, Serum26 32 Anion Gap, Serum15 12 BUN37 H 37 H CREAT0.44 L 0.53 GFR-Non >60 >60 GFR->60 >60 Calcium, Serum9.0 9.5 Phosphorus, Serum3.0 3.1 ALB2.7 L 3.0 L Assessment and Plan: Additional Dx: Respiratory failure with hypoxia: Entered Date: 28-Apr-2018 18:11 Hyponatremia: Entered Date: 28-Apr-2018 18:09 Bacteremia: Entered Date: 24-Apr-2018 21:10 buttermaker continuous churn current use of insulin: Entered Date: 19-Apr-2018 19:36 Type 2 diabetes mellitus without complication: Entered Date: 19-Apr-2018 19:36 COPD (chronic obstructive pulmonary disease): Entered Date: 19-Apr-2018 19:36 Pneumonia: Entered Date: 18-Apr-2018 21:38 Assessment: This is a 67 year old male with history significant for HTN, type II DM, COPD, left lung resection in (for unclear reasons), CYNTHIA, and meningioma s/p craniotomy with resection 2013 (at [facility]) who was recently admitted 02/10/18-04/04/18 for meningioma resection with 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 Admitted to medicine. In a shared visit with Dr. Harding # PNA: - Pulmonology consulted -> signed off. Likely recurrent aspiration pneumonia - Chest CT 04/22 to assist with further plan for antibiotics --> Bronchial wall thickening predominantly in the lower lobes, and left lower lobe tree-in-bud opacity. Bronchiolitis/small airway disease, likely infectious in etiology. Pulmonary recommends to continue antibiotics x 2 weeks course. - One set of blood cultures was sent at [facility] 04/18 - per phone requested result on 04/22 --> aerobic vial positive for gram negative rods and 04/23 Breveundimonis diminuta - roman sensitive reported. - Blood cultures from 04/18 [place] negative -final. - ID consulted: started on ceftriaxone 2 gm every 24 hours for total of 10 days - Ceftriaxone completed course on 04/27 - continue EZ pap and vest therapy - weaned off supplemental 02. Satting 92-96% on RA - bronchial hygiene - spiritual support - repeat BC, UA, UC all negative with no growth on 04/29 - No need for further antibiotics at this time. Patient is stable with no fevers, no new oxygen requirement, a stable white blood cell count, no pain, no shortness of breath, patient is asymptomatic, and the workup shows no signs of current infection. - decreased WBC on 04/30, downtrending - Updated nephbibiana Macias, he agrees with plan for pt to return to [facility] - Infectious disease felt the patient had no antibiotic requirements at this time. - Patient is ready to return to the shelter facility. # COPD: - continue inhaled formoterol and budesonide - hold off with Advair as he is unable to comply with medication administration - continue PRN albuterol nebulizer treatments # Dysphagia s/p PEG tube placement: - repeat MBS 04/21 with speech therapy recommending to continue NPO with PEG tube feedings. - Repeat MBSS in 2-3 months. - NPO status with PEG tube feedings - continue Diabetic Source tube feedings and free water flushes # Grade D esophagitis: - continue PPI BID (plan was for him to be on this for 3 months following EGD on 02/21/18) - arranged for outpatient GI follow up on 06/06/18 # Type II DM: - continue Lantus 15 units daily (home dose 30 units daily) - ISS - hypo-/ hyperglycemia protocol # CYNTHIA: - continue CPAP at night # DVT Prophylaxis: - enoxaparin, b/l SCD Code status: - DNAR/DNI # Discharge disposition: - pt was at SNF prior to going to [facility]. Nephew Donta reporting that has mild cognitive deficits at baseline and has a low IQ. - PT recommending SNF - nephbibiana Macias updated. He would like him to return to prior SNF - No need for further antibiotics at this time. Patient is stable with no fevers, no new oxygen requirement, a stable white blood cell count, no pain, no shortness of breath, patient is asymptomatic, and the workup shows no signs of current infection. - decreased WBC on 04/30, downtrending - Updated nephew Donta, he agrees with plan for pt to return to [facility] - Infectious disease felt the patient had no antibiotic requirements at this time. - Patient is ready to return to the shelter facility. - SW aware, waiting on precert Signature/Cosignature/Attestation: Attending Only - Shared Visit with Advanced Practice ProviderThis is a shared visit. I have reviewed the Advanced Practice Providers encounter note, approve the Advanced Practice Providers documentation, and provide the following additional information from my personal encounter. 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 Admitted to medicine. # PNA: - Pulmonology consulted -> signed off. Likely recurrent aspiration pneumonia - Chest CT 04/22 to assist with further plan for antibiotics --> Bronchial wall thickening predominantly in the lower lobes, and left lower lobe tree-in-bud opacity. Bronchiolitis/small airway disease, likely infectious in etiology. Pulmonary recommends to continue antibiotics x 2 weeks course. - One set of blood cultures was sent at [facility] 04/18 - per phone requested result on 04/22 --> aerobic vial positive for gram negative rods and 04/23 Breveundimonis diminuta - roman sensitive reported. - Blood cultures from 04/18 [place] negative -final. - ID consulted: started on ceftriaxone 2 gm every 24 hours for total of 10 days- finished 04/27 - repeat BC, UA, UC all negative with no growth on 04/29 - No need for further antibiotics at this time. Patient is stable with no fevers, no new oxygen requirement, a stable white blood cell count, no pain, no shortness of breath, patient is asymptomatic, and the workup shows no signs of current infection. - Attempted to update his nephew Donta on 04/29 but was unable to reach him. I left a message for him to call back. - Infectious disease felt the patient had no antibiotic requirements at this time. - Patient is ready to return to the shelter facility. rest of the plan per the HANDLE SANDER OPERATOR note. Electronic Signatures: Nam Muro (PAC) (Signed 30-Apr-2018 17:03) Authored: Service, Subjective Data, Objective Data, Assessment and Plan, Signature/Cosignature/Attestation Phoenix Harding) (Signed 01-May-2018 09:40) Authored: Signature/Cosignature/Attestation Co-Signer: Service, Subjective Data, Objective Data, Assessment and Plan, Signature/Cosignature/Attestation Last Updated: 01-May-2018 09:40 by Phoenix Harding) GLUCOSE-POCT Collected: 04/30/2018 Status: F Source: IDABEL 4:04 PM [facility] REPOSITORY TYPE CODE TESTS RESULT OUT OF RANGE REFERENCE UNITS LAB GLUP(LOINC) 74 - 99 mg/dL High 165 GLUCOSE-POCT Performed By: #### GLUPO #### [facility] [address] [place] [address] GLUCOSE-POCT Collected: 04/30/2018 Status: F Source: IDABEL 11:09 AM [facility] TYPE CODE TESTS RESULT OUT OF RANGE REFERENCE UNITS LAB GLUP(LOINC) 74 - 99 mg/dL High 187 GLUCOSE-POCT Performed By: #### GLUPO #### [facility] [address] [place] [address] CBC Collected: 04/30/2018 Status: F Source: IDABEL 8:30 AM [facility] REPOSIT[facility] TYPE CODE TESTS RESULT OUT OF REFERENCE UNITS RANGE LAB WBCR(LOINC 4.4 - 11.3 x10E9/L ) WBC High 11.8 LAB NRBC(LOINC 0.0-0.0 /100 WBC ) NUCLEATED RBC 0.0 LAB RBCCT(LOIN 4.50 - 5.90 x10E12/L C) RBC 4.73 LAB HGB(LOINC) 13.5 - 17.5 g/dL HGB 13.8 LAB HCT(LOINC) 41.0 - 52.0 % HCT 45.4 LAB MCV(LOINC) 80 - 100 fL MCV 96 LAB MCHC2(LOIN 32.0 - 36.0 g/dL C) Low MCHC 30.4 LAB PLTCT(LOIN 150 - 450 x10E9/L C) PLT 187 LAB RDWCV(LOIN 11.5 - 14.5 % C) High RDW-CV 14.7 Performed By: #### CBC #### [facility] [address] [place] [address] RENAL FUNCTION PANEL Collected: 04/30/2018 Status: F Source: IDABEL 8:30 AM [facility]POSITORY TYPE CODE TESTS RESULT OUT OF REFERENCE UNITS RANGE LAB GLU(LOINC) 74 - 99 mg/dL High GLUCOSE 173 LAB SOD(LOINC) 136 - 145 mmol/L SODIUM 136 LAB K(LOINC) 3.5 - 5.3 mmol/L POTASSIUM 4.7 Result Comment: MILD HEMOLYSIS DETECTED. The result may be falsely elevated due to hemolysis or other interferents. Clinical correlation is recommended. Repeat testing may be considered. LAB CHLOR(LOINC) 98 - 107 mmol/L CHLORIDE 100 LAB BIC(LOINC) 21 - 32 mmol/L BICARBONATE 26 LAB ANGAP(LOINC) 10 - 20 mmol/L ANION GAP 15 LAB UREA(LOINC) 6 - 23 mg/dL UREA High NITROGEN 37 LAB CREA(LOINC) 0.50 - mg/dL 1.30 CREATININE Low 0.44 LAB GFRFN(LOINC) >60 mL/min/1.73m 2 GFR-NON AM. >60 LAB GFRAA(LOINC) >60 mL/min/1.73m 2 GFR- AM. >60 Result Comment: CALCULATIONS OF ESTIMATED GFR ARE PERFORMED USING THE MDRD STUDY EQUATION FOR THE IDMS-TRACEABLE CREATININE METHODS. CLIN CHEM 2007;53:766-72 LAB CA(LOINC) 8.6 - 10.6 mg/dL CALCIUM 9.0 LAB PHOS(LOINC) 2.5 - 4.9 mg/dL PHOSPHORUS 3.0 Result Comment: The performance characteristics of phosphorus testing in heparinized plasma have been validated by the individual laboratory site where testing is performed. Testing on heparinized plasma is not approved by the FDA; however, such approval is not necessary. LAB ALB(LOINC) 3.4 - 5.0 g/dL Low ALBUMIN 2.7 Performed By: #### RENAL #### [facility] [address] [place] [address] GLUCOSE-POCT Collected: 04/30/2018 Status: F Source: IDABEL 7:34 AM [facility] REPOSITORY TYPE CODE TESTS RESULT OUT OF RANGE REFERENCE UNITS LAB GLUP(LOINC) 74 - 99 mg/dL High 186 GLUCOSE-POCT Performed By: #### GLUPO #### [facility] [address] [place] [address] GLUCOSE-POCT Collected: 04/30/2018 Status: F Source: IDABEL 4:43 AM [facility] REPOSITORY TYPE CODE TESTS RESULT OUT OF RANGE REFERENCE UNITS LAB GLUP(LOINC) 74 - 99 mg/dL High 138 GLUCOSE-POCT Performed By: #### GLUPO #### [facility] [address] [place] [address] GLUCOSE-POCT Collected: 04/30/2018 Status: F Source: IDABEL 12:14 AM [facility] REPOSITORY TYPE CODE TESTS RESULT OUT OF RANGE REFERENCE UNITS LAB GLUP(LOINC) 74 - 99 mg/dL High 151 GLUCOSE-POCT Performed By: #### GLUPO #### [facility] [address] [place] [address] GLUCOSE-POCT Collected: 04/29/2018 Status: F Source: IDABEL 8:00 PM [facility] REPOSITORY TYPE CODE TESTS RESULT OUT OF RANGE REFERENCE UNITS LAB GLUP(LOINC) 74 - 99 mg/dL High 166 GLUCOSE-POCT Performed By: #### GLUPO #### [facility] [address] [place] [address] DAILY PROGRESS Observed: 04/29/2018 Status: COMPLETED Source: IDABEL NOTE-MEDICINE 6:24 PM [facility] REPOSITORY Service: Medicine Subjective Data: DIPESH BERMUDEZ is a 67 year old Male who is Hospital Day # 12. 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 Admitted to medicine. Today, 04/29, patient denies any pain or discomfort of any kind. Patient was not oriented to the place or year but was oriented to person, age, date of and was able to follow commands. Overnight Events: Patient had an uneventful night. Objective Data: Objective Information: ---- Intake and Output ----- Mn/Dy/Year TimeIntakeOutputNet Apr 29, 2018 2:00 pm000 Apr 29, 2018 6:00 [id number] Apr 28, 2018 10:00 [id number] The Intake and Output Totals for the last 24 hours are: IntakeOutputNet [id number] T PRBPSpO2 [id number]/8195% Date/Time04/29 15: 15: 15: 15: 15:05 Range(36.4C - 37.1C ) (79 - 92 ) (16 - 18 ) (107 - 129 )/ (66 - 85 ) (93% - 96% ) Highest temp of 37.1 C was recorded at 04/29 6:55 Physical exam: General: Vitals noted, no acute distress. Afebrile. Alert and oriented to name, date of and age. Head: atraumatic and normocephalic Eyes: Pupils equal round reactive to light, EOMs are intact, conjunctivae is not injected. Oropharynx: no trismus or drooling, buccal mucosa is moist. Neck: Supple, full range of motion, Cardiac: Regular rate and rhythm. No murmurs noted. Pulmonary: Lungs clear bilaterally with good aeration. No adventitious breath sounds. No wheezes rales or rhonchi. No accessory muscle use no retraction noted. Abdomen: Soft, Nontender. No guarding, rigidity, or distention. Normoactive bowel sounds. No pulsatile masses, no bruits. Extremities: No pitting edema. Full range of motion to upper extremities but decreased range of motion to lower extremities. Distal pulses are intact. Skin: No rash seen. Skin is warm and dry Neuro: Patient is alert and oriented to person, date of , and age, but was not able to tell me where he was or the year. Speech is clear. There is no asymmetry with facial grimaces, and no tongue deviation. Patient moves all extremities independently. Hospital course: History is provided by the patient and we reviewed the medical records. Vital signs and nurses notes were reviewed. The patient's lab work today showed a CBC with a white blood cell count of 3.6, hemoglobin 13.0, hematocrit 41.6, and platelets of 290,000. This compares with a white blood cell count of 13.5 on 04/28, normal H&H and normal platelets. The patient was blood cell count has been running in the typically with a 13.1 on 04/26, 13.2 on 04/23, 11.3 on 04/19, 13.2 on 03/24. Patient has been afebrile and had no new oxygen requirement. No signs of infectious process. Patient had a urinalysis that showed no signs of infection and a urine culture that showed no growth. Repeat blood cultures from 04/28 are negative to date. Repeat chest x-ray showed subtle bibasilar retrocardiac airspace opacities which may represent atelectatic changes, there was no sizable pleural effusions. At this time we do not have an indication for any further antibiotics but did consult ID for their opinion, as the POA is concerned about his long history of previous infections. He voiced to the physician that he thought we might need to extend the antibiotic treatment, however the ceftriaxone course was completed on April 27 and there is no indication for further antibiotics at this time. ID was not concerned white blood cell count and agreed that there was no need for further antibiotics currently. We will follow the blood culture results for any growth. I attempted to call the patient's nephew Donta this evening to update him, at [phone], but it went to a voicemail. We recommend discharge to shelter facility at this time. Medication: Medications: Continuous Medications No continuous medications are active Scheduled Medications 1. Artificial Tears (Preservative Free): 2 drop(s) Both Eyes Every 4 Hours 2. Atorvastatin: 40 mg Oral Daily 3. Budesonide 0.5 mg/ 2 mL Nebulizer Soln: 2 mL Inhalation Every 12 Hours 4. Docusate Oral Liquid: 100 mg Oral 2 Times a Day 5. Enoxaparin SubCutaneous: 40 mg SubCutaneous Every 24 Hours 6. Esomeprazole Oral Packet: 40 mg NasoGastric Tube 2 Times a Day 7. Formoterol 20 microgram/ 2 mL Neb Soln: 2 mL Inhalation Every 12 Hours 8. guaiFENesin Oral Liquid: 400 mg Oral Every 6 Hours 9. Insulin Glargine (Lantus) Injectable: 15 unit(s) SubCutaneous Every 24 Hours 10. Insulin Lispro Mild Corrective Scale: unit(s) SubCutaneous Every 4 Hours 11. Nystatin 100,000 Units/ gram Topical: 1 application(s) Topical 3 Times a Day 12. Saliva Substitute: 15 mL Oral 4 Times a Day 13. Silodosin (NON - Formulary): 8 mg Oral Daily 14. Simethicone Oral Liquid Drops: 80 mg Oral 4 Times a Day After Meals 15. Valproic Acid (Depakene) Oral Liquid: 500 mg PEG Tube <User Schedule> PRN Medications 1. Acetaminophen Oral Liquid: 650 mg Gastrostomy Tube Every 4 Hours 2. Albuterol 2.5 mg/ 3 mL Nebulizer Soln: 3 mL Inhalation Every 6 Hours 3. Dextrose 50% in Water Injectable: 25 gram(s) IntraVenous Push Every 15 Minutes 4. Glucagon Injectable: 1 mg IntraMuscular Every 15 Minutes 5. Polyethylene Glycol: 17 gram(s) Oral Daily Recent Lab Results: Results: I have reviewed these laboratory results: Complete Blood Count Trending View [id number] 06:24:00 13-Dec-2018 06:17:00 White Blood Cell Count13.6 H 13.5 H Nucleated Erythrocyte Count0.0 0.0 Red Blood Cell Count4.45 L 4.62 HGB13.0 L 13.7 HCT41.6 43.6 MCV93 94 MCHC31.3 L 31.4 L [id number] 259 RDW-CV14.7 H 14.8 H Renal Function Panel 29-Apr-2018 06:24:00 ResultValue Glucose, Serum 170 H NA 135 L K 4.6 CL 96 L Bicarbonate, Serum 32 Anion Gap, Serum 12 BUN 37 H CREAT 0.53 GFR-Non >60 GFR- >60 Calcium, Serum 9.5 Phosphorus, Serum 3.1 ALB 3.0 L Urinalysis 28-Apr-2018 18:55:00 ResultValue Color, Urine YELLOW Reference Range: STRAW,YELLOW Appearance, Urine HAZY Specific [place], Urine 1.020 pH, Urine 7.0 Protein, Urine 100 (2+) A Glucose, Urine NEGATIVE Blood, Urine NEGATIVE Ketones, Urine NEGATIVE Bilirubin, Urine NEGATIVE Urobilinogen, Urine <2.0 Nitrite, Urine NEGATIVE Leukocyte Esterase, Urine NEGATIVE Urinalysis, Microscopic 28-Apr-2018 18:55:00 ResultValue White Cells 4 Red Blood Cells 5 Epithelial Cells, Squamous <1 Mucous 1+ Culture, Urine 28-Apr-2018 18:55:00 ResultValue Culture, Urine NO GROWTH Culture, Blood 28-Apr-2018 18:53:00 ResultValue Culture, Blood NEGATIVE TO DATE, CULTURE IN PROGRESS. Basic Metabolic Panel 28-Apr-2018 06:17:00 ResultValue Glucose, Serum 143 H NA 134 L K 5.1 CL 95 L Bicarbonate, Serum 30 Anion Gap, Serum 14 BUN 31 H CREAT 0.54 GFR-Non >60 GFR- >60 Calcium, Serum 9.8 Radiology Results: Results: Impression: 1. Subtle bibasilar and retrocardiac airspace opacities, which are better evaluated on prior CT scan 06/22/2017 and may represent atelectatic changes. However, also correlate with infection/aspiration. 2. No sizable pleural effusions or pneumothorax. 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: Entered Date: 19-Apr-2018 19:36 Type 2 diabetes mellitus without complication: Entered Date: 19-Apr-2018 19:36 COPD (chronic obstructive pulmonary disease): Entered Date: 19-Apr-2018 19:36 Pneumonia: Entered Date: 18-Apr-2018 21:38 Medical History: Meningioma: Entered Date: 03-Mar-2018 15:48 COPD (chronic obstructive pulmonary disease): Entered Date: 03-Mar-2018 15:48 Type II diabetes mellitus: Entered Date: 03-Mar-2018 15:48 HTN (hypertension): Entered Date: 03-Mar-2018 15:48 Surg History: History of resection of meningioma: Entered Date: 03-Mar-2018 15:48 Assessment: Assessment: This is a 67 year old male with history significant for HTN, type II DM, COPD, left lung resection in (for unclear reasons), CYNTHIA, and meningioma s/p craniotomy with resection 2013 (at [facility]) who was recently admitted 02/10/18-04/04/18 for meningioma resection with 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 Admitted to medicine. In a shared visit with Dr. Jennings # PNA: - Pulmonology consulted -> signed off. Likely recurrent aspiration pneumonia - Chest CT 04/22 to assist with further plan for antibiotics --> Bronchial wall thickening predominantly in the lower lobes, and left lower lobe tree-in-bud opacity. Bronchiolitis/small airway disease, likely infectious in etiology. Pulmonary recommends to continue antibiotics x 2 weeks course. - One set of blood cultures was sent at [facility] 04/18 - per phone requested result on 04/22 --> aerobic vial positive for gram negative rods and 04/23 Breveundimonis diminuta - roman sensitive reported. - Blood cultures from 04/18 [place] negative -final. - ID consulted: started on ceftriaxone 2 gm every 24 hours for total of 10 days - Ceftriaxone completed course on 04/27 - continue EZ pap and vest therapy - weaned off supplemental 02. Satting 92-96% on RA - bronchial hygiene - spiritual support - repeat BC, UA, UC all negative with no growth on 04/29 - No need for further antibiotics at this time. Patient is stable with no fevers, no new oxygen requirement, a stable white blood cell count, no pain, no shortness of breath, patient is asymptomatic, and the workup shows no signs of current infection. - Attempted to update his nephew Donta on 04/29 but was unable to reach him. I left a message for him to call back. - Infectious disease felt the patient had no antibiotic requirements at this time. - Patient is ready to return to the shelter facility. # COPD: - continue inhaled formoterol and budesonide - hold off with Advair as he is unable to comply with medication administration - continue PRN albuterol nebulizer treatments # Dysphagia s/p PEG tube placement: - repeat MBS 04/21 with speech therapy recommending to continue NPO with PEG tube feedings. - Repeat MBSS in 2-3 months. - NPO status with PEG tube feedings - continue Diabetic Source tube feedings and free water flushes # Grade D esophagitis: - continue PPI BID (plan was for him to be on this for 3 months following EGD on 02/21/18) - arranged for outpatient GI follow up on 06/06/18 # Type II DM: - continue Lantus 15 units daily (home dose 30 units daily) - ISS - hypo-/ hyperglycemia protocol # CYNTHIA: - continue CPAP at night # DVT Prophylaxis: - enoxaparin, b/l SCD Code status: - DNAR/DNI # Discharge disposition: - pt was at SNF prior to going to [facility]. Nephew Donta reporting that has mild cognitive deficits at baseline and has a low IQ. - PT recommending SNF - nephew Donta updated. He would like him to return to prior SNF - No need for further antibiotics at this time. Patient is stable with no fevers, no new oxygen requirement, a stable white blood cell count, no pain, no shortness of breath, patient is asymptomatic, and the workup shows no signs of current infection. - Attempted to update his nephew Donta on 04/29 but was unable to reach him. I left a message for him to call back. - Infectious disease felt the patient had no antibiotic requirements at this time. - Patient is ready to return to the shelter facility. Signature/Cosignature/Attestation: Attending Only - Shared Visit with Advanced Practice ProviderThis is a shared visit. I have reviewed the Advanced Practice Providers encounter note, approve the Advanced Practice Providers documentation, and provide the following additional information from my personal encounter. Comments/ Additional Findings Patient see and examined with the HANDLE SANDER OPERATOR today. Agree with the above exam and assessment/ plan. Gen: NAD HEENT: facial droop CV: RRR Pulm: CTAB GI: soft, non-tender Ext: no pitting edema 67 year old male with a past medical history of COPD, CYNTHIA, DM-II, meningioma s/p resection in 2013 with recurrence, and recent admission (from 02/10/18-04/04/18) for repeat resection with hospital course complicated by brainstem infarction, dysphagia (now s/p PEG), line associated DVT, and multiple HAP (MRSA and Pseudomonas) and recurrent mucous plugging, atelectasis requiring aggressive respiratory management that was discharged to SNF. On 04/18/18 patient was found at SNF to be tachycardic and hypoxic so transferred to OSH. At OSH ED that was concern for LLL PNA on CXR so he was started on broad spectrum abx and transferred to [facility] on 04/18/18 due to for further care. Hypoxic Respiratory Failure/ Concern for LLL PNA: - given history concern for recurrent aspiration even - CT chest with left tree in bud opacity most likely infectious - pulmonary consulted - aggressive respiratory therapy per pulm/ respiratory recs - blood cultures from OSH growing Brevundimonis dimunnnata/ all culture from NGTD - ID consulted - s/p 10 day course of abx (stop date 04/27/13) Mild Leukocytosis: - re-roman culture (blood, urine, CXR) on 04/28 - cultures currently [facility]GTD and CXR with no new findings of infection - ID consulted today about cause of leukocytosis Dysphagia: - speech consulted and MBS done -> continue strict NPO Meningioma 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: - continue valproic acid Hyponatremia: - continue to monitor COPD: - does not appear to be in exacerbation - continue inhalers CYNTHIA: - continue CPAP DM: - Lantus 15U daily (1/2 home dose) and ISS Diet: - tube feeds Ppx: - Lovenox subcutaneous Electronic Signatures: Kimberly Singer) (Signed 02-May-2018 16:12) Authored: Signature/Cosignature/Attestation Co-Signer: Service, Subjective Data, Objective Data, Assessment and Plan, Signature/Cosignature/Attestation Nam Muro (PAC) (Signed 29-Apr-2018 18:45) Authored: Service, Subjective Data, Objective Data, Assessment and Plan, Signature/Cosignature/Attestation Last Updated: 02-May-2018 16:12 by Kimberly Singer) GLUCOSE-POCT Collected: 04/29/2018 Status: F Source: IDABEL 4:07 PM [facility] REPOSITORY TYPE CODE TESTS RESULT OUT OF RANGE REFERENCE UNITS LAB GLUP(LOINC) 74 - 99 mg/dL High 156 GLUCOSE-POCT Performed By: #### GLUPO #### [facility] [address] [place] [address] GLUCOSE-POCT Collected: 04/29/2018 Status: F Source: IDABEL 12:58 PM [facility] REPOSITORY TYPE CODE TESTS RESULT OUT OF RANGE REFERENCE UNITS LAB GLUP(LOINC) 74 - 99 mg/dL High 180 GLUCOSE-POCT Performed By: #### GLUPO #### [facility] [address] [place] [address] GLUCOSE-POCT Collected: 04/29/2018 Status: F Source: IDABEL 8:03 AM [facility] REPOSITORY TYPE CODE TESTS RESULT OUT OF RANGE REFERENCE UNITS LAB GLUP(LOINC) 74 - 99 mg/dL High 202 GLUCOSE-POCT Performed By: #### GLUPO #### [facility] [address] [place] [address] CBC Collected: 04/29/2018 Status: F Source: IDABEL 6:24 AM [facility] REPOSITORY TYPE CODE TESTS RESULT OUT OF REFERENCE UNITS RANGE LAB WBCR(LOINC 4.4 - 11.3 x10E9/L ) WBC High 13.6 LAB NRBC(LOINC 0.0-0.0 /100 WBC ) NUCLEATED RBC 0.0 LAB RBCCT(LOIN 4.50 - 5.90 x10E12/L C) Low RBC 4.45 LAB HGB(LOINC) 13.5 - 17.5 g/dL Low HGB 13.0 LAB HCT(LOINC) 41.0 - 52.0 % HCT 41.6 LAB MCV(LOINC) 80 - 100 fL MCV 93 LAB MCHC2(LOIN 32.0 - 36.0 g/dL C) Low MCHC 31.3 LAB PLTCT(LOIN 150 - 450 x10E9/L C) PLT 290 LAB RDWCV(LOIN 11.5 - 14.5 % C) High RDW-CV 14.7 Performed By: #### CBC #### [facility] [address] [place] [address] RENAL FUNCTION PANEL Collected: 04/29/2018 Status: F Source: IDABEL 6:24 AM [facility]POSIT[facility] TYPE CODE TESTS RESULT OUT OF REFERENCE UNITS RANGE LAB GLU(LOINC) 74 - 99 mg/dL GLUCOSE High 170 LAB SOD(LOINC) 136 - 145 mmol/L Low SODIUM 135 LAB K(LOINC) 3.5 - 5.3 mmol/L POTASSIUM 4.6 LAB CHLOR(LOIN 98 - 107 mmol/L C) Low CHLORIDE 96 LAB BIC(LOINC) 21 - 32 mmol/L BICARBONATE 32 LAB ANGAP(LOIN 10 - 20 mmol/L C) ANION GAP 12 LAB UREA(LOINC 6 - 23 mg/dL ) UREA High NITROGEN 37 LAB CREA(LOINC 0.50 - 1.30 mg/dL ) CREATININE 0.53 LAB GFRFN(LOIN >60 mL/min/1.7 C) 3m2 GFR-NON AM. >60 LAB GFRAA(LOIN >60 mL/min/1.7 C) 3m2 GFR- AM. >60 Result Comment: CALCULATIONS OF ESTIMATED GFR ARE PERFORMED USING THE MDRD STUDY EQUATION FOR THE IDMS-TRACEABLE CREATININE METHODS. CLIN CHEM 2007;53:766-72 LAB CA(LOINC) 8.6 - 10.6 mg/dL CALCIUM 9.5 LAB PHOS(LOINC) 2.5 - 4.9 mg/dL PHOSPHORUS 3.1 Result Comment: The performance characteristics of phosphorus testing in heparinized plasma have been validated by the individual laboratory site where testing is performed. Testing on heparinized plasma is not approved by the FDA; however, such approval is not necessary. LAB ALB(LOINC) 3.4 - 5.0 g/dL Low ALBUMIN 3.0 Performed By: #### RENAL #### [facility] [address] [place] [address] GLUCOSE-POCT Collected: 04/29/2018 Status: F Source: IDABEL 4:04 AM [facility] REPOSITORY TYPE CODE TESTS RESULT OUT OF RANGE REFERENCE UNITS LAB GLUP(LOINC) 74 - 99 mg/dL High 154 GLUCOSE-POCT Performed By: #### GLUPO #### [facility] [address] [place] [address] GLUCOSE-POCT Collected: 04/29/2018 Status: F Source: IDABEL 12:12 AM [facility] REPOSITORY TYPE CODE TESTS RESULT OUT OF RANGE REFERENCE UNITS LAB GLUP(LOINC) 74 - 99 mg/dL High 154 GLUCOSE-POCT Performed By: #### GLUPO #### [facility] [address] [place] [address] GLUCOSE-POCT Collected: 04/28/2018 Status: F Source: IDABEL 9:17 PM [facility] REPOSITORY TYPE CODE TESTS RESULT OUT OF RANGE REFERENCE UNITS LAB GLUP(LOINC) 74 - 99 mg/dL High 173 GLUCOSE-POCT Performed By: #### GLUPO #### [facility] [address] [place] [address] URINALYSIS Collected: 04/28/2018 Status: F Source: IDABEL 6:55 PM [facility] REPOSITORY TYPE CODE TESTS RESULT OUT OF RANGE REFERENCE UNITS LAB COLU(LOIN STRAW,YELLOW C) COLOR YELLOW LAB APPRU(SHAKEEL CLEAR NC) APPEARANCE HAZY LAB SPGRU(SHAKEEL 1.005 - 1.035 NC) SPECIFIC GRAVITY 1.020 LAB CAMMY(LOINC 5.0 - 8.0 ) pH 7.0 LAB PROTU(SHAKEEL NEGATIVE mg/dL NC) PROTEIN Abnormal 100 (2+) LAB GLUCU(SHAKEEL NEGATIVE mg/dL NC) GLUCOSE NEGATIVE LAB BLDU(LOIN NEGATIVE C) BLOOD NEGATIVE LAB KETU(LOIN NEGATIVE mg/dL C) KETONES NEGATIVE LAB BILIU(SHAKEEL NEGATIVE NC) BILIRUBIN NEGATIVE LAB UROU2(SHAKEEL 0.0 - 1.9 mg/dL NC) UROBILINOGEN <2.0 LAB NITRU(SHAKEEL NEGATIVE NC) NITRITE NEGATIVE LAB LEUKU(SHAKEEL NEGATIVE NC) LEUKOCYTE ESTERASE NEGATIVE Performed By: #### UA #### [facility] [address] [place] [address] UA MICROSCOPIC Collected: 04/28/2018 Status: F Source: [facility] 6:55 PM HOSPITALS REPOSITORY TYPE CODE TESTS RESULT OUT OF REFERENCE UNITS RANGE LAB WBCUR(LOINC 0-5 /HPF ) WBC 4 LAB RBCUR(LOINC 0-5 /HPF ) RBC 5 LAB EPSQE(LOINC /HPF ) SQUAMOUS <1 EPITH. CELLS LAB MUCOU(LOINC /LPF ) MUCUS 1+ Performed By: #### UAMIC #### [facility] [address] [place] [id number] URINE Observed: 04/28/2018 Status: F Source: [facility] CULTURE,BACTERIAL 6:55 PM HOSPITALS REPOSITORY PATIENT: DIPESH BERMUDEZ LOCATION: [facility]0 0 BILL#: [id number] : 54 AGE: SEX: M ORDERED BY: NAM MURO SOURCE: URINE COLLECTED: 04/28/18 18:55 ANTIBIOTICS AT [facility].: RECEIVED : 04/28/18 21:32 SITE: Straight Cath R E S U L T S URINE CULTURE,BACTERIAL FINAL 04/29/18 14:03 NO GROWTH Performed By: #### URINC #### [facility] [address] [place] [id number] Observed: 04/28/2018 Status: F Source: [facility] BLOOD CULTURE, 6:53 HOSPITALS REPOSITORY BACTERIAL PATIENT: DIPESH BERMUDEZ LOCATION: L050 L50 BILL#: [id number] : 54 AGE: SEX: M ORDERED BY: NAM MURO SOURCE: Blood COLLECTED: 04/28/18 18:53 ANTIBIOTICS AT [facility].: RECEIVED : 04/28/18 21:55 SITE: left wrist R E S U L T S BLOOD CULTURE, BACTERIAL FINAL 05/03/18 23:42 No Growth at 1 days No Growth at 2 days No Growth at 3 days No Growth at 4 days NO GROWTH - FINAL REPORT Performed By: #### BLDC #### [facility] [address] [place] [address] Observed: 04/28/2018 Status: F Source: [facility] BLOOD CULTURE, 6:51 PM HOSPITALS REPOSITORY BACTERIAL PATIENT: DIPESH BERMUDEZ LOCATION: [place] [address] BILL#: [id number] : 54 AGE: SEX: M ORDERED BY: NAM MURO SOURCE: Blood COLLECTED: 04/28/18 18:51 ANTIBIOTICS AT [facility].: RECEIVED : 04/28/18 23:49 SITE: Right wrist R E S U L T S BLOOD CULTURE, BACTERIAL FINAL 05/04/18 05:42 No Growth at 1 days No Growth at 2 days No Growth at 3 days NO GROWTH - FINAL REPORT Performed By: #### BLDC #### [facility] [address] [place] [address] DAILY PROGRESS Observed: 04/28/2018 Status: COMPLETED Source: [facility] 5:39 PM HOSPITALS REPOSITORY Service: Medicine Subjective Data: DIPESH BERMUDEZ is a 67 year old Male who is Hospital Day # 11. 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 Admitted to medicine. Today 04/28 the patient was reported to have had a soft stool yesterday and he had to again today. Patient is incontinent of stool and urine at his baseline. Patient denied any pain or any other complaints at this time. Overnight Events: Patient had an uneventful night. Objective Data: Objective Information: T PRBPSpO2 [id number]/9192% Date/Time04/28 15: 15: 15: 15: 15:18 Range(36.7C - 37.1C ) (69 - 106 ) (18 - 18 ) (103 - 138 )/ (71 - 91 ) (92% - 96% ) Highest temp of 37.1 C was recorded at 04/28 15:18 Physical exam: General: Vitals noted, no acute distress. Afebrile. Alert and oriented x 2. Head: atraumatic and normocephalic Eyes: Pupils equal round reactive to light, EOMs are intact, conjunctivae is not injected. Oropharynx: no trismus or drooling, buccal mucosa is moist. Neck: Supple, full range of motion, Cardiac: Regular rate and rhythm. No murmurs noted. Pulmonary: Lungs clear bilaterally with good aeration. No adventitious breath sounds. No wheezes rales or rhonchi. No accessory muscle use no retraction noted. Abdomen: Soft, Nontender. No guarding, rigidity, or distention. Normoactive bowel sounds. No pulsatile masses, no bruits. Extremities: No pitting edema. Full range of motion. Distal pulses are intact. Skin: No rash seen. Skin is warm and dry. Slight blanchable erythema at sacrum, no skin breakdown Neuro: Patient is alert and appears oriented x2. Speech is clear but limited to one word answers. Patient does follow commands well. There is no asymmetry with facial grimaces, and no tongue deviation. Patient moves all extremities independently. Sensation is intact. Hospital course: History is provided by the patient and we reviewed the medical records. Vital signs and nurses notes were reviewed. Pt has been on room air since 04/27 with oxygen saturations of 92-96% on room air. Patient has had 2 soft stools in the last 24 hours with no evidence of blood. Patient's CBC on 04/28 showed an elevated white blood cell count of 13.5. Hemoglobin, hematocrit, and platelets, all within normal limits. Patient's white blood cell count on April 27 was 13.4 on April 26 was 13.1. Patient had a white blood cell count of 16.1 on March 29 and has recently been running in the 12-13 range primarily. The patient basic metabolic panel on 04/28 revealed a glucose of 143, sodium was slightly low at 134 but improved from yesterday when it was 131. Patient's chloride was low at 95 and the BUN was high at 31 but the creatinine was normal at 0.54. The BUN was also 31 yesterday on 04/27. We did order a 500 cc normal saline bolus. Patient's chest x-ray today revealed subtle bibasilar and retrocardiac air space opacities which could be atelectatic changes versus infection/aspiration. Patient has repeat blood cultures, repeat urinalysis and urine culture, and repeat morning labs pending. Apparently the patient nephew was requesting that his antibiotics be extended however this is not recommended and Dr. Jennings was to call him and discuss this today. Patient completed a 10 day course of ceftriaxone on 04/27, it had been recommended by infectious disease. Prior to that the patient was on cefepime and Linezolid. At this time there does not appear to be an indication to give more antibiotics however we will review the blood cultures, urinalysis, CBC, etc. and those results are available. Medication: Medications: Continuous Medications No continuous medications are active Scheduled Medications 1. Artificial Tears (Preservative Free): 2 drop(s) Both Eyes Every 4 Hours 2. Atorvastatin: 40 mg Oral Daily 3. Budesonide 0.5 mg/ 2 mL Nebulizer Soln: 2 mL Inhalation Every 12 Hours 4. Docusate Oral Liquid: 100 mg Oral 2 Times a Day 5. Enoxaparin SubCutaneous: 40 mg SubCutaneous Every 24 Hours 6. Esomeprazole Oral Packet: 40 mg NasoGastric Tube 2 Times a Day 7. Formoterol 20 microgram/ 2 mL Neb Soln: 2 mL Inhalation Every 12 Hours 8. guaiFENesin Oral Liquid: 400 mg Oral Every 6 Hours 9. Insulin Glargine (Lantus) Injectable: 15 unit(s) SubCutaneous Every 24 Hours 10. Insulin Lispro Mild Corrective Scale: unit(s) SubCutaneous Every 4 Hours 11. Nystatin 100,000 Units/ gram Topical: 1 application(s) Topical 3 Times a Day 12. Saliva Substitute: 15 mL Oral 4 Times a Day 13. Silodosin (NON - Formulary): 8 mg Oral Daily 14. Simethicone Oral Liquid Drops: 80 mg Oral 4 Times a Day After Meals 15. Sodium Chloride 0.9% IV Bolus: 500 mL IntraVenous Piggyback Once 16. Valproic Acid (Depakene) Oral Liquid: 500 mg PEG Tube <User Schedule> PRN Medications 1. Acetaminophen Oral Liquid: 650 mg Gastrostomy Tube Every 4 Hours 2. Albuterol 2.5 mg/ 3 mL Nebulizer Soln: 3 mL Inhalation Every 6 Hours 3. Dextrose 50% in Water Injectable: 25 gram(s) IntraVenous Push Every 15 Minutes 4. Glucagon Injectable: 1 mg IntraMuscular Every 15 Minutes 5. Polyethylene Glycol: 17 gram(s) Oral Daily Recent Lab Results: Results: I have reviewed these laboratory results: Complete Blood Count Trending View [id number] 06:17:00 -Apr-2018 06:15:00 White Blood Cell Count13.5 H 13.4 H Nucleated Erythrocyte Count0.0 0.0 Red Blood Cell Count4.62 4.49 L HGB13.7 13.2 L HCT43.6 42.0 MCV94 94 MCHC31.4 L 31.4 L NUD167 224 RDW-CV14.8 H 14.5 Basic Metabolic Panel Trending View [id number] 06:17:00 -Apr-2018 06:15:00 Glucose, Gpoku304 H 161 H NA134 L 131 L K5.1 4.7 CL95 L 93 L Bicarbonate, Serum30 30 Anion Gap, Serum14 13 BUN31 H 31 H CREAT0.54 0.42 L GFR-Non >60 >60 GFR->60 >60 Calcium, Serum9.8 8.9 Radiology Results: Results: Impression: 1. Subtle bibasilar and retrocardiac airspace opacities, which are better evaluated on prior CT scan 06/22/2017 and may represent atelectatic changes. However, also correlate with infection/aspiration. 2. No sizable pleural effusions or pneumothorax. Xray Chest 2 View PA + Lateral [Apr 28 2018 2:19PM] Assessment and Plan: Additional Dx: Respiratory failure with hypoxia: Entered Date: 28-Apr-2018 18:11 Hyponatremia: Entered Date: 28-Apr-2018 18:09 Bacteremia: Entered Date: 24-Apr-2018 21:10 skilled nursing current use of insulin: Entered Date: 19-Apr-2018 19:36 Type 2 diabetes mellitus without complication: Entered Date: 19-Apr-2018 19:36 COPD (chronic obstructive pulmonary disease): Entered Date: 19-Apr-2018 19:36 Pneumonia: Entered Date: 18-Apr-2018 21:38 Delirium, acute: Onset Date: 27-Mar-2018, Entered Date: 27-Mar-2018 23:04 Pseudomonas pneumonia: Onset Date: 27-Mar-2018, Entered Date: 27-Mar-2018 23:04 Encephalopathy: Entered Date: 23-Mar-2018 09:23 Assessment: This is a 67 year old male with history significant for HTN, type II DM, COPD, left lung resection in (for unclear reasons), CYNTHIA, and meningioma s/p craniotomy with resection 2013 (at [facility]) who was recently admitted 02/10/18-04/04/18 for meningioma resection with 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 Admitted to medicine. In a shared visit with Dr. Jennings # PNA: - Pulmonology consulted -> signed off. Likely recurrent aspiration pneumonia - Chest CT 04/22 to assist with further plan for antibiotics --> Bronchial wall thickening predominantly in the lower lobes, and left lower lobe tree-in-bud opacity. Bronchiolitis/small airway disease, likely infectious in etiology. Pulmonary recommends to continue antibiotics x 2 weeks course. - One set of blood cultures was sent at [facility] 04/18 - per phone requested result on 04/22 --> aerobic vial positive for gram negative rods and 04/23 Breveundimonis diminuta - roman sensitive reported. - Blood cultures from 04/18 [place] negative -final. - ID consulted: started on ceftriaxone 2 gm every 24 hours for total of 10 days - Ceftriaxone completed course on 04/27 - continue EZ pap and vest therapy - weaned off supplemental 02. Satting 92-96% on RA - bronchial hygiene - spiritual support - repeat BC, UA, UC pending # COPD: - continue inhaled formoterol and budesonide - hold off with Advair as he is unable to comply with medication administration - continue PRN albuterol nebulizer treatments # Dysphagia s/p PEG tube placement: - repeat MBS 04/21 with speech therapy recommending to continue NPO with PEG tube feedings. - Repeat MBSS in 2-3 months. - NPO status with PEG tube feedings - continue Diabetic Source tube feedings and free water flushes # Grade D esophagitis: - continue PPI BID (plan was for him to be on this for 3 months following EGD on 02/21/18) - arranged for outpatient GI follow up on 06/06/18 # Type II DM: - continue Lantus 15 units daily (home dose 30 units daily) - ISS - hypo-/ hyperglycemia protocol # CYNTHIA: - continue CPAP at night # DVT Prophylaxis: - enoxaparin, b/l SCD Code status: - DNAR/DNI # Discharge disposition: - pt was at SNF prior to going to [facility]. Nephew Donta reporting that has mild cognitive deficits at baseline and has a low IQ. - PT recommending SNF - nephew Donta updated. He would like him to return to prior SNF - anticipate discharge back to SNF in next 2-3 days if respiratory status stable Signature/Cosignature/Attestation: Attending Only - Shared Visit with Advanced Practice ProviderThis is a shared visit. I have reviewed the Advanced Practice Providers encounter note, approve the Advanced Practice Providers documentation, and provide the following additional information from my personal encounter. Comments/ Additional Findings Patient see and examined with the HANDLE SANDER OPERATOR today. Agree with the above exam and assessment/ plan. Gen: NAD HEENT: facial droop CV: RRR Pulm: CTAB GI: soft, non-tender Ext: no pitting edema 67 year old male with a past medical history of COPD, CYNTHIA, DM-II, meningioma s/p resection in 2013 with recurrence, and recent admission (from 02/10/18-04/04/18) for repeat resection with hospital course complicated by brainstem infarction, dysphagia (now s/p PEG), line associated DVT, and multiple HAP (MRSA and Pseudomonas) and recurrent mucous plugging, atelectasis requiring aggressive respiratory management that was discharged to SNF. On 04/18/18 patient was found at SNF to be tachycardic and hypoxic so transferred to OSH. At OSH ED that was concern for LLL PNA on CXR so he was started on broad spectrum abx and transferred to [facility] on 04/18/18 due to for further care. Hypoxic Respiratory Failure/ Concern for LLL PNA: - given history concern for recurrent aspiration even - CT chest with left tree in bud opacity most likely infectious - pulmonary consulted - aggressive respiratory therapy per pulm/ respiratory recs - blood cultures from OSH growing Brevundimonis dimunnnata/ all culture from [facility] - ID consulted - s/p 10 day course of abx (stop date 04/27/13) Mild Leukocytosis: - re-roman culture (blood, urine, CXR) Dysphagia: - speech consulted and MBS done -> continue strict NPO Meningioma 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: - continue valproic acid Hyponatremia: - continue to monitor COPD: - does not appear to be in exacerbation - continue inhalers CYNTHIA: - continue CPAP DM: - Lantus 15U daily (1/2 home dose) and ISS Diet: - tube feeds Ppx: - Lovenox subcutaneous Electronic Signatures: Kimberly Singer) (Signed 02-May-2018 16:10) Authored: Signature/Cosignature/Attestation Co-Signer: Service, Subjective Data, Objective Data, Assessment and Plan, Signature/Cosignature/Attestation Nam Muro (PAC) (Signed 28-Apr-2018 18:15) Authored: Service, Subjective Data, Objective Data, Assessment and Plan, Signature/Cosignature/Attestation Last Updated: 02-May-2018 16:10 by Kimberly Singer) GLUCOSE-POCT Collected: 04/28/2018 Status: F Source: [facility] 4:57 PM HOSPITALS REPOSITORY TYPE CODE TESTS RESULT OUT OF RANGE REFERENCE UNITS LAB GLUP(LOINC) 74 - 99 mg/dL 98 GLUCOSE-POCT Performed By: #### GLUPO #### [facility] [address] [place] [address] CHEST 2 VIEW PA Observed: 04/28/2018 Status: F Source: [facility] 1:54 PM HOSPITALS REPOSITORY Patient Name: DIPESH BERMUDEZ STUDY: CHEST 2 VIEW PA AND LAT; 04/28/2018 1:54 pm INDICATION: Signs/Symptoms: leukocytosis, hx of aspiration pneumonia. COMPARISON: Chest radiograph and CT from 04/21/2018 ACCESSION NUMBER(S): [id number] ORDERING CLINICIAN: NAM MURO FINDINGS: The cardiomediastinal silhouette is within normal limits and grossly unchanged, allowing for differences in lung inflation Better inspiratory effort on present examination resulting in improvement of bronchovascular crowding. There is subtle bibasilar retrocardiac airspace opacities, better evaluated on the prior CT scan, which may represent atelectasis/consolidation. No sizeable pleural effusion pneumothorax. No acute osseous abnormality. IMPRESSION: 1. Subtle bibasilar and retrocardiac airspace opacities, which are better evaluated on prior CT scan 06/22/2017 and may represent atelectatic changes. However, also correlate with infection/aspiration. 2. No sizable pleural effusions or pneumothorax. Electronically signed by: LEXI LI MD GLUCOSE-POCT Collected: 04/28/2018 Status: F Source: [facility] 12:30 PM [facility] REPOSITORY TYPE CODE TESTS RESULT OUT OF RANGE REFERENCE UNITS LAB GLUP(LOINC) 74 - 99 mg/dL High 182 GLUCOSE-POCT Performed By: #### GLUPO #### [facility] [address] [place] [address] GLUCOSE-POCT Collected: 04/28/2018 Status: F Source: [facility] 8:08 AM [facility] REPOSITORY TYPE CODE TESTS RESULT OUT OF RANGE REFERENCE UNITS LAB GLUP(LOINC) 74 - 99 mg/dL High 134 GLUCOSE-POCT Performed By: #### GLUPO #### [facility] [address] [place] [address] BASIC METABOLIC PANEL Collected: 04/28/2018 Status: F Source: [facility] 6:17 AM HOSPITALS REPOSITORY TYPE CODE TESTS RESULT OUT OF REFERENCE UNITS RANGE LAB GLU(LOINC) 74 - 99 mg/dL High GLUCOSE 143 LAB SOD(LOINC) 136 - 145 mmol/L Low SODIUM 134 LAB K(LOINC) 3.5 - 5.3 mmol/L POTASSIUM 5.1 Result Comment: MILD HEMOLYSIS DETECTED. The result may be falsely elevated due to hemolysis or other interferents. Clinical correlation is recommended. Repeat testing may be considered. LAB CHLOR(LOINC) 98 - 107 mmol/L CHLORIDE Low 95 LAB BIC(LOINC) 21 - 32 mmol/L BICARBONATE 30 LAB ANGAP(LOINC) 10 - 20 mmol/L ANION GAP 14 LAB UREA(LOINC) 6 - 23 mg/dL UREA High NITROGEN 31 LAB CREA(LOINC) 0.50 - mg/dL 1.30 CREATININE 0.54 LAB GFRFN(LOINC) >60 mL/min/1.73m 2 GFR-NON AM. >60 LAB GFRAA(LOINC) >60 mL/min/1.73m 2 GFR- AM. >60 Result Comment: CALCULATIONS OF ESTIMATED GFR ARE PERFORMED USING THE MDRD STUDY EQUATION FOR THE IDMS-TRACEABLE CREATININE METHODS. CLIN CHEM 2007;53:766-72 LAB CA(LOINC) 8.6 - 10.6 mg/dL CALCIUM 9.8 Performed By: #### BMP #### [facility] [address] [place] [address] CBC Collected: 04/28/2018 Status: F Source: [facility] 6:17 AM HOSPITALS REPOSITORY TYPE CODE TESTS RESULT OUT OF REFERENCE UNITS RANGE LAB WBCR(LOINC 4.4 - 11.3 x10E9/L ) WBC High 13.5 LAB NRBC(LOINC 0.0-0.0 /100 WBC ) NUCLEATED RBC 0.0 LAB RBCCT(LOIN 4.50 - 5.90 x10E12/L C) RBC 4.62 LAB HGB(LOINC) 13.5 - 17.5 g/dL HGB 13.7 LAB HCT(LOINC) 41.0 - 52.0 % HCT 43.6 LAB MCV(LOINC) 80 - 100 fL MCV 94 LAB MCHC2(LOIN 32.0 - 36.0 g/dL C) Low MCHC 31.4 LAB PLTCT(LOIN 150 - 450 x10E9/L C) PLT 259 LAB RDWCV(LOIN 11.5 - 14.5 % C) High RDW-CV 14.8 Performed By: #### CBC #### [facility] [address] [place] [address] GLUCOSE-POCT Collected: 04/28/2018 Status: F Source: [facility] 3:00 AM HOSPITALS REPOSITORY TYPE CODE TESTS RESULT OUT OF RANGE REFERENCE UNITS LAB GLUP(LOINC) 74 - 99 mg/dL High 167 GLUCOSE-POCT Performed By: #### GLUPO #### [facility] [address] [place] [address] GLUCOSE-POCT Collected: 04/27/2018 Status: F Source: [facility] 9:07 PM [facility] REPOSITORY TYPE CODE TESTS RESULT OUT OF RANGE REFERENCE UNITS LAB GLUP(LOINC) 74 - 99 mg/dL High 137 GLUCOSE-POCT Performed By: #### GLUPO #### [facility] [address] [place] [address] GLUCOSE-POCT Collected: 04/27/2018 Status: F Source: [facility] 5:00 PM [facility] REPOSITORY TYPE CODE TESTS RESULT OUT OF RANGE REFERENCE UNITS LAB GLUP(LOINC) 74 - 99 mg/dL High 164 GLUCOSE-POCT Performed By: #### GLUPO #### [facility] [address] [place] [address] DAILY PROGRESS Observed: 04/27/2018 Status: COMPLETED Source: [facility] NOTE-MEDICINE 3:26 PM HOSPITALS REPOSITORY Service: Medicine Subjective Data: DIPESH BERMUDEZ is a 67 year old Male who is Hospital Day # 10. Overnight Events: Patient had an uneventful night. Objective Data: Objective Information: ---- Intake and Output ----- Mn/Dy/Year TimeIntakeOutputNet Apr 27, 2018 2:00 pm000 Apr 27, 2018 6:00 am000 Apr 26, 2018 10:00 [id number] The Intake and Output Totals for the last 24 hours are: IntakeOutputNet 1949nullnull T PRBPSpO2 Value36.09806997/8199% Date/Time04/27 15: 15: 15: 15: 15:17 Range(36.6C - 37.2C ) (70 - 104 ) (17 - 19 ) (115 - 152 )/ (76 - 93 ) (94% - 100% ) Highest temp of 37.2 C was recorded at 04/26 20:34 Physical Exam: Constitutional: Well developed, awake/alert/oriented x2, no distress, alert and cooperative Eyes: PERRL, EOMI, clear sclera ENMT: mucous membranes moist, no apparent injury, no lesions seen Head/Neck: Neck supple, no apparent injury, thyroid without mass or tenderness, No JVD, trachea midline, no bruits Respiratory/Thorax: Patent airways, CTAB, normal breath sounds with good chest expansion, thorax symmetric Cardiovascular: Regular, rate and rhythm, no murmurs, 2+ equal pulses of the extremities, normal S 1and S 2 Gastrointestinal: Nondistended, soft, non-tender, no rebound tenderness or guarding, no masses palpable, no organomegaly, +BS, no bruits Musculoskeletal: ROM intact, no joint swelling, normal strength Extremities: normal extremities, no cyanosis edema, contusions or wounds, no clubbing Neurological: alert and oriented x2, intact senses, motor, response and reflexes, normal strength Breast: No masses, tenderness, no discharge or discoloration Lymphatic: No significant lymphadenopathy Psychological: Appropriate mood and behavior Skin: Warm and dry, no lesions, no rashes Medication: Medications: Continuous Medications No continuous medications are active Scheduled Medications 1. Artificial Tears (Preservative Free): 2 drop(s) Both Eyes Every 4 Hours 2. Atorvastatin: 40 mg Oral Daily 3. Budesonide 0.5 mg/ 2 mL Nebulizer Soln: 2 mL Inhalation Every 12 Hours 4. Docusate Oral Liquid: 100 mg Oral 2 Times a Day 5. Enoxaparin SubCutaneous: 40 mg SubCutaneous Every 24 Hours 6. Esomeprazole Oral Packet: 40 mg NasoGastric Tube 2 Times a Day 7. Formoterol 20 microgram/ 2 mL Neb Soln: 2 mL Inhalation Every 12 Hours 8. guaiFENesin Oral Liquid: 400 mg Oral Every 6 Hours 9. Insulin Glargine (Lantus) Injectable: 15 unit(s) SubCutaneous Every 24 Hours 10. Insulin Lispro Mild Corrective Scale: unit(s) SubCutaneous Every 4 Hours 11. Nystatin 100,000 Units/ gram Topical: 1 application(s) Topical 3 Times a Day 12. Saliva Substitute: 15 mL Oral 4 Times a Day 13. Silodosin (NON - Formulary): 8 mg Oral Daily 14. Simethicone Oral Liquid Drops: 80 mg Oral 4 Times a Day After Meals 15. Valproic Acid (Depakene) Oral Liquid: 500 mg PEG Tube <User Schedule> PRN Medications 1. Acetaminophen Oral Liquid: 650 mg Gastrostomy Tube Every 4 Hours 2. Albuterol 2.5 mg/ 3 mL Nebulizer Soln: 3 mL Inhalation Every 6 Hours 3. Dextrose 50% in Water Injectable: 25 gram(s) IntraVenous Push Every 15 Minutes 4. Glucagon Injectable: 1 mg IntraMuscular Every 15 Minutes 5. Polyethylene Glycol: 17 gram(s) Oral Daily Recent Lab Results: Results: I have reviewed these laboratory results: Glucose_POCT Trending View [id number] 12:01:00 27-Apr-2018 08:14:00 27-Apr-2018 05:16:00 27-Apr-2018 00:18:00 26-Apr-2018 20:17:00 26-Apr-2018 16:36:00 26-Apr-2018 11:52:00 26-Apr-2018 07:33:00 26-Apr-2018 05:39:00 26-Apr-2018 01:04:00 25-Apr-2018 19:51:00 25-Apr-2018 16:54:00 Glucose-WESZ611 H 193 H 199 H 178 H 184 H 161 H 177 H 136 H 167 H 186 H 169 H 151 H Complete Blood Count Trending View [id number] 06:15:00 26-Apr-2018 06:21:00 White Blood Cell Count13.4 H 13.1 H Nucleated Erythrocyte Count0.0 0.0 Red Blood Cell Count4.49 L 4.34 L HGB13.2 L 12.7 L HCT42.0 39.8 L MCV94 92 MCHC31.4 L 31.9 L DIA683 243 RDW-CV14.5 14.5 Basic Metabolic Panel Trending View [id number] 06:15:00 26-Apr-2018 06:21:00 Glucose, Jqcwk971 H 134 H NA131 L 133 L K4.7 4.8 CL93 L 94 L Bicarbonate, Serum30 33 H Anion Gap, Serum13 11 BUN31 H 30 H CREAT0.42 L 0.44 L GFR-Non >60 >60 GFR->60 >60 Calcium, Serum8.9 9.7 Radiology Results: Results: Impression: number 6 should read indeterminate nodular thickening of the right adrenal gland. The rest of the dictation remains unchanged. Addendum Ends Patient Name: DIPESH BERMUDEZ STUDY: CT CHEST W CONTRAST; 04/21/2018 8:33 pm INDICATION: Signs/Symptoms: unresolving pneumonia, LieFlat: Yes. COMPARISON: Contrast enhance CT angiogram of the chest dated 03/12/2018. ACCESSION NUMBER(S): [id number] ORDERING CLINICIAN: JACKSON BELTRAN TECHNIQUE: Helical data acquisition of the chest was obtained following administration of 90 mL Isovue 370 intravenous contrast.. Images were reformatted in axial, coronal, and sagittal planes. FINDINGS: LUNGS AND AIRWAYS: The trachea and central airways are patent. No endobronchial lesion. There are surgical clips in the left hilum and postoperative changes left lower lobe from likely left lower lobectomy. Correlate with prior surgical history. There is redemonstration of diffuse bronchial wall thickening, predominantly in the lower lobes, with mucus plugging seen. There is been interval re-aeration of the left lung. There is bibasilar atelectasis, greater on the left. There is a linear band like opacity in the left lung base which likely represents atelectasis versus scar, as it is seen as far back as the CT of the chest from 02/16/2018. There is tree-in-bud opacity predominantly in the left lower lobe. Correlate with bronchiolitis/small airway disease. There are trace bilateral pleural effusions. MEDIASTINUM AND MERRILL, LOWER NECK AND AXILLA: The visualized thyroid gland is within normal limits. Scattered subcentimeter non-specific prominent mediastinal lymph nodes, however no evidence of thoracic lymphadenopathy by CT criteria. There is a small hiatal hernia. HEART AND VESSELS: The thoracic aorta is ectatic, measuring up to 4 cm in diameter. There is moderate calcified and noncalcified atherosclerosis of the thoracic aorta. Main pulmonary artery and its branches are normal in caliber. Moderate coronary artery calcifications are seen in the left main coronary artery and LAD. The study is not optimized for evaluation of coronary arteries. The cardiac chambers are not enlarged. No evidence of pericardial effusion. UPPER ABDOMEN: There is a 1.5 cm indeterminate nodular thickening of the left adrenal gland. There are multiple low attenuating lesions within the kidneys, favored to be cysts. Positive oral contrast is seen within the visualized colon. PEG tube is in place within the stomach. CHEST WALL AND OSSEOUS STRUCTURES: There are no suspicious osseous lesions. Multilevel degenerative changes are present. There is gynecomastia. IMPRESSION: 1. Bronchial wall thickening predominantly in the lower lobes, and left lower lobe tree-in-bud opacity. Correlate with bronchiolitis/small airway disease, likely infectious in etiology. No focal consolidation is however identified. 2. Bibasilar atelectasis, left more than right. Trace bibasilar pleural effusion. 3. Moderate coronary artery calcifications. 4. Ectatic thoracic aorta measuring up to 4 cm in diameter with moderate calcified and noncalcified atherosclerosis. 5. Postoperative changes consistent with left lower lobectomy. Correlate with surgical history. 6. 1.5 cm indeterminate nodular thickening of the left adrenal gland. ADDENDUM: Impression number 6 should read indeterminate nodular thickening of the right adrenal gland. The rest of the dictation remains unchanged. CT Chest with Contrast [Apr 24 2018 8:46AM] Conclusion: Electrocardiogram 12 Lead [Apr 21 2018 11:42PM] Impression: 1. Fluoroscopic support provided to speech pathologist for a modified barium swallow findings as described above. Correlate with detailed report from speech pathologist for dietary recommendations. Xray Complete Pharyngeal + Speech Eval [Apr 21 2018 3:53PM] Impression: Persistent left basilar and retrocardiac opacity which can be due to pneumonia in appropriate clinical setting. No significant interval change Xray Chest 1 View [Apr 21 2018 6:55AM] Impression: 1. Unchanged left basilar retrocardiac opacity, likely representing combination of atelectasis and small pleural effusion with or without superimposed consolidation. 2. No pneumothorax. Xray Chest 1 View [Apr 19 2018 7:55AM] Impression: Xray Chest 1 View [Apr 19 2018 12:20AM] Impression: Xray Chest 1 View [Apr 18 2018 9:17PM] Impression: 1. Slight interval worsening in left basilar atelectasis and effusion.No pneumothorax Xray Chest 1 View [Apr 03 2018 1:16PM] Conclusion: CONCLUSIONS: Right Upper Venous: Positive for aucte occlusive DVT of the right brachial vein. Brachial vein is noted to have IV line. Collateral was noted off axillary vein. Cephalic vein was not visualized. Basilic vein was compressible. Left Upper Venous: The subclavian demonstrates a normal spontaneous and phasic flow. 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 Admitted to medicine. In a shared visit with Dr. Jennings # PNA: - Pulmonology consulted -> signed off. Likely recurrent aspiration pneumonia - Chest CT 04/22 to assist with further plan for antibiotics --> Bronchial wall thickening predominantly in the lower lobes, and left lower lobe tree-in-bud opacity. Bronchiolitis/small airway disease, likely infectious in etiology. Pulmonary recommends to continue antibiotics x 2 weeks course. - One set of blood cultures was sent at [facility] 04/18 - per phone requested result on 04/22 --> aerobic vial positive for gram negative rods and 04/23 Breveundimonis diminuta - roman sensitive reported. - Blood cultures from 04/18 [place] negative -final. - ID consulted: started on ceftriaxone 2 gm every 24 hours for total of 10 days - Ceftriaxone completed course on 04/27 - continue EZ pap and vest therapy - weaned off supplemental 02. Satting 95% on RA - bronchial hygiene - spiritual support # COPD: - continue inhaled formoterol and budesonide - hold off with Advair as he is unable to comply with medication administration - continue PRN albuterol nebulizer treatments # Dysphagia s/p PEG tube placement: - repeat MBS 04/21 with speech therapy recommending to continue NPO with PEG tube feedings. - Repeat MBSS in 2-3 months. - NPO status with PEG tube feedings - continue Diabetic Source tube feedings and free water flushes # Grade D esophagitis: - continue PPI BID (plan was for him to be on this for 3 months following EGD on 02/21/18) - arranged for outpatient GI follow up on 06/06/18 # Type II DM: - continue Lantus 15 units daily (home dose 30 units daily) - ISS - hypo-/ hyperglycemia protocol # CYNTHIA: - continue CPAP at night # DVT Prophylaxis: - enoxaparin, b/l SCD Code status: - DNAR/DNI # Discharge disposition: - pt was at SNF prior to going to [facility]. Nephew Donta reporting that has mild cognitive deficits at baseline and has a low IQ. - PT recommending SNF - nephew Donta updated. He would like him to return to prior SNF - anticipate discharge back to SNF in next 2-3 days if respiratory status stable Signature/Cosignature/Attestation: Attending Only - Shared Visit with Advanced Practice ProviderThis is a shared visit. I have reviewed the Advanced Practice Providers encounter note, approve the Advanced Practice Providers documentation, and provide the following additional information from my personal encounter. Comments/ Additional Findings Patient see and examined with the HANDLE SANDER OPERATOR today. Agree with the above exam and assessment/ plan. Gen: NAD HEENT: facial droop CV: RRR Pulm: CTAB GI: soft, non-tender Ext: no pitting edema 67 year old male with a past medical history of COPD, CYNTHIA, DM-II, meningioma s/p resection in 2013 with recurrence, and recent admission (from 02/10/18-04/04/18) for repeat resection with hospital course complicated by brainstem infarction, dysphagia (now s/p PEG), line associated DVT, and multiple HAP (MRSA and Pseudomonas) and recurrent mucous plugging, atelectasis requiring aggressive respiratory management that was discharged to SNF. On 04/18/18 patient was found at SNF to be tachycardic and hypoxic so transferred to OSH. At OSH ED that was concern for LLL PNA on CXR so he was started on broad spectrum abx and transferred to [facility] on 04/18/18 due to for further care. Hypoxic Respiratory Failure/ Concern for LLL PNA: - given history concern for recurrent aspiration even - CT chest with left tree in bud opacity most likely infectious - pulmonary consulted - aggressive respiratory therapy per pulm/ respiratory recs - blood cultures from OSH growing Brevundimonis dimunnnata/ all culture from [facility] - ID consulted - continue ceftriaxone 2g daily for 10 day course (stop date 04/27/13) - if leaves can prior to stop date can transition to levofloxacin 750mg daily Dysphagia: - speech consulted and MBS done -> continue strict NPO Meningioma 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: - continue valproic acid Hyponatremia: - continue to monitor COPD: - does not appear to be in exacerbation - continue inhalers CYNTHIA: - continue CPAP DM: - Lantus 15U daily (1/2 home dose) and ISS Diet: - tube feeds Ppx: - Lovenox subcutaneous Electronic Signatures: Kimberly Singer) (Signed 02-May-2018 16:07) Authored: Signature/Cosignature/Attestation Constantine Ji ([facility]) (Signed 27-Apr-2018 19:33) Authored: Service, Subjective Data, Objective Data, Assessment and Plan Last Updated: 02-May-2018 16:07 by Kimberly Singer) GLUCOSE-POCT Collected: 04/27/2018 Status: F Source: [facility] 12:01 PM HOSPITALS REPOSITORY TYPE CODE TESTS RESULT OUT OF RANGE REFERENCE UNITS LAB GLUP(LOINC) 74 - 99 mg/dL High 159 GLUCOSE-POCT Performed By: #### GLUPO #### [facility] [id number] [place] [address] NUTRITION THERAPY-FOLLOW Observed: 04/27/2018 Status: UNK Source: [facility] UP 11:33 AM HOSPITALS REPOSITORY Assessment Subjective/Objective: Note Type: Follow Up Note Authored by: Registered Dietitian Career Placement Specialist Pager Number: [phone] Nutrition Note: Pt continues to receive Diabetisource AC @ 80ml/hr - recently underwent MBSS (04/21) with MANAGER PROCESS IMPROVEMENT recs for continued NPO.RDN attempted to visit pt, however, both times was unable (being cleaned and other discipline working with pt). RN informed RDN that there seems to be no concerns with TF intolerance at this time. Objective Information: Intake Output Enteral - Tube 1599 mL IV Fluids 50 mL Irrigation Solutions 300 mL Height/Weight: Weight history/ % weight change: This admission: 04/18: 84.8kg 04/27: 84.2kg Recent Lab Results: Results: I have reviewed these laboratory results: Glucose_POCT Trending View [id number] 08:14:00 27-Apr-2018 05:16:00 27-Apr-2018 00:18:00 26-Apr-2018 20:17:00 26-Apr-2018 16:36:00 Glucose-SKDL283 H 199 H 178 H 184 H 161 H Complete Blood Count Trending View [id number] 06:15:00 26-Apr-2018 06:21:00 White Blood Cell Count13.4 H 13.1 H Nucleated Erythrocyte Count0.0 0.0 Red Blood Cell Count4.49 L 4.34 L HGB13.2 L 12.7 L HCT42.0 39.8 L MCV94 92 MCHC31.4 L 31.9 L EHI314 243 RDW-CV14.5 14.5 Basic Metabolic Panel Trending View [id number] 06:15:00 26-Apr-2018 06:21:00 Glucose, Cigbg656 H 134 H NA131 L 133 L K4.7 4.8 CL93 L 94 L Bicarbonate, Serum30 33 H Anion Gap, Serum13 11 BUN31 H 30 H CREAT0.42 L 0.44 L GFR-Non >60 >60 GFR->60 >60 Calcium, Serum8.9 9.7 Nutrition Labs: Special Chemistry: 28-Feb-2018 03:53, Hemoglobin A1C, Level Hemoglobin A1C, Level 8.1 Diagnosis of Diabetes-Adults Non-Diabetic: < or = 5.6% Increased risk for developing diabetes: 5.7-6.4% Diagnostic of diabetes: > or = 6.5% . Monitoring of Diabetes Age (y) Therapeutic Goal (%) Adults: >18 <7.0 Pediatrics: 13-18 <7.5 7-12 <8.0 0- 6 7.5-8.5 [employer] [employer]. Diabetes Care 33(S1), May 2009. Current Active Medications/PN: Silodosin (NON - Formulary), Capsule DOSE = 8 mg Oral Daily, 18-Apr-2018 Atorvastatin, Tablet (LIPITOR) DOSE = 40 mg Oral Daily, 18-Apr-2018 Formoterol 20 microgram/ 2 mL Neb Soln, (PERFOROMIST) DOSE = 2 mL Inhalation Every 12 Hours via Nebulizer, 18-Apr-2018 Docusate Oral Liquid, (COLACE) DOSE = 100 mg Oral 2 Times a Day, 18-Apr-2018 Esomeprazole Oral Packet, (NEXIUM.) DOSE = 40 mg NasoGastric Tube 2 Times a Day, 18-Apr-2018 Polyethylene Glycol, Powder for Reconstitution (MIRALAX) DOSE = 17 gram(s) Oral Daily, PRN Constipation, 18-Apr-2018 Simethicone Oral Liquid Drops, (MYLICON) DOSE = 80 mg Oral 4 Times a Day After Meals, 18-Apr-2018 Insulin Lispro Mild Corrective Scale, Give SubCutaneous Every 4 Hours Hypoglycemia Protocol Call LIP unit(s) if Blood Glucose is between 0 - 70 0 unit(s) if Blood Glucose is between 71 - 150 2 unit(s) if Blood Glucose is between 151 - 200 4 unit(s) if Blood Glucose is between 201 - 250 6 unit(s) if Blood Glucose is between 251 - 300 8 unit(s) if Blood Glucose is between 301 - 350 10 unit(s) if Blood Glucose is between 351 - 400 Notify Provider unit(s) if Blood Glucose is greater than 400, 18-Apr-2018 Insulin Glargine (Lantus) Injectable, DOSE = 15 unit(s) SubCutaneous Every 24 Hours Notes from Pharmacy: HIGH ALERT , 18-Apr-2018 Valproic Acid (Depakene) Oral Liquid, DOSE = 500 mg PEG Tube <User Schedule> ( every 1 day: 21:00 ), 19-Apr-2018 cefTRIAXone IV Piggy Back, in Sodium Chloride 0.9% 50 mL (ROCEPHIN) DOSE = 2,000 mg Every 24 Hours Recommended Infusion Time: 30 minute(s), 24-Apr-2018 Nutrition Orders: Enteral Feeding (CMC), Routine, Diabetic Source AC Rate: ( Continuous & Cycle Only)- mL/hr: 80 ,<Continuous> Route: PEG (Percutaneous Endoscopic Gastric Tube), Continuous, 19-Apr-2018 Enteral Feeding Water Flush, 150, PEG (Percutaneous Endoscopic Gastric Tube), 4 Times a Day, 19-Apr-2018 NPO, Routine ., 19-Apr-2018 Nutrition Focused Physical Findings: Other Physical Findings: Skin: stage 2 buttock pressure ulcer Edema: +1, b/l ankles Change in Metabolic Demand: yes Subjective Global Assessment Rating: moderate malnutrition Etiology: acute illness or injury, chronic illness Estimated Needs: kcals/day: 7840-8433 gms protein/day: 100+ mL fluid/day: 3619-6231 Nutrition Diagnosis: Diagnosis1 ongoing. Dx: Moderate protein calorie malnutrition. related to recent complicated post-op course as evidenced by mild muscle wasting to temples, shoulders and clavicles, mild fat loss to orbital pads and biceps, and significant weight loss of 15% x ~ 2 months. Additional Assessment Information: Pt continues to require NPO, therefore, continuous is still warranted (it is noted that pt did not tolerate bolus feeds prior, so unsure if he would be safe to do nocturnal as this will require higher volume) - will keep TF continuous at this time. Nutrition Interventions: Individualized Nutrition Prescription Provided for: enteral nutrition Diet Education: not applicable Provided Nutrition Support Recommendations: Diabetisource AC provides 1920mls, 2304kcals, 115g pro, 192g CHO, 1567mls free H2O Nutrition Goals: Goals: Nutrition Therapy: nutrition support goals are met within 48 hrs, nutrition support is meeting 75% of nutrient needs, tube feed tolerance, Blood Glucose 80-180 mg/dl, promote healing, maintain stable weight Nutrition Goal Outcomes: goal partially met Outcomes Summary: Nutrition Therapy Progress: Nutrition Therapy: no change Outcome Summary: Nutritional Therapy: Moderate protein calorie malnutrition NUTRITION RECOMMENDATIONS: Recommendations: Continue Diabetisource AC @ 80ml/hr (continuous). Adjust water flushes per MD Continue to monitor lytes/BG Bi-weekly weights to track trend Nutrition Therapy Recommendations: Nutrition Therapy Recommendations: Please see RDN note on 04/27 Dietitian Monitoring and Evaluation Plan: Monitoring and Evaluation Plan: Nutrition Support tolerance/adequacy, weight trend, stool output, labs Time Spent (minutes): 60 Nutrition Support: yes Electronic Signatures: Elaine Bright (JORDYN, NOAH) (Signed 27-Apr-2018 14:42) Authored: Assessment Subjective/Objective, Nutrition Focused Physical Findings, Estimated Needs, Nutrition Diagnosis, Nutrition Interventions, Nutrition Goals, Nutrition Recommendations, Dietitian Monitoring and Evaluation Plan, Time Spent/Nutrition Support Last Updated: 27-Apr-2018 14:42 by Elaine Bright (RDN, LD) GLUCOSE-POCT Collected: 04/27/2018 Status: F Source: [facility] 8:14 AM HOSPITALS REPOSITORY TYPE CODE TESTS RESULT OUT OF RANGE REFERENCE UNITS LAB GLUP(LOINC) 74 - 99 mg/dL High 193 GLUCOSE-POCT Performed By: #### GLUPO #### [facility] [address] [place] [id number] CBC Collected: 04/27/2018 Status: F Source: [facility] 6:15 AM HOSPITALS REPOSITORY TYPE CODE TESTS RESULT OUT OF REFERENCE UNITS RANGE LAB WBCR(LOINC 4.4 - 11.3 x10E9/L ) WBC High 13.4 LAB NRBC(LOINC 0.0-0.0 /100 WBC ) NUCLEATED RBC 0.0 LAB RBCCT(LOIN 4.50 - 5.90 x10E12/L C) Low RBC 4.49 LAB HGB(LOINC) 13.5 - 17.5 g/dL Low HGB 13.2 LAB HCT(LOINC) 41.0 - 52.0 % HCT 42.0 LAB MCV(LOINC) 80 - 100 fL MCV 94 LAB MCHC2(LOIN 32.0 - 36.0 g/dL C) Low MCHC 31.4 LAB PLTCT(LOIN 150 - 450 x10E9/L C) PLT 224 LAB RDWCV(LOIN 11.5 - 14.5 % C) RDW-CV 14.5 Performed By: #### CBC #### [facility] [address] [place] [address] BASIC METABOLIC PANEL Collected: 04/27/2018 Status: F Source: [facility] 6:15 AM [facility] REPOSITORY TYPE CODE TESTS RESULT OUT OF REFERENCE UNITS RANGE LAB GLU(LOINC) 74 - 99 mg/dL GLUCOSE High 161 LAB SOD(LOINC) 136 - 145 mmol/L Low SODIUM 131 LAB K(LOINC) 3.5 - 5.3 mmol/L POTASSIUM 4.7 LAB CHLOR(LOIN 98 - 107 mmol/L C) Low CHLORIDE 93 LAB BIC(LOINC) 21 - 32 mmol/L BICARBONATE 30 LAB ANGAP(LOIN 10 - 20 mmol/L C) ANION GAP 13 LAB UREA(LOINC 6 - 23 mg/dL ) UREA High NITROGEN 31 LAB CREA(LOINC 0.50 - 1.30 mg/dL ) Low CREATININE 0.42 LAB GFRFN(LOIN >60 mL/min/1.7 C) 3m2 GFR-NON AM. >60 LAB GFRAA(LOIN >60 mL/min/1.7 C) 3m2 GFR- AM. >60 Result Comment: CALCULATIONS OF ESTIMATED GFR ARE PERFORMED USING THE MDRD STUDY EQUATION FOR THE IDMS-TRACEABLE CREATININE METHODS. CLIN CHEM 2007;53:766-72 LAB CA(LOINC) 8.6 - 10.6 mg/dL CALCIUM 8.9 Performed By: #### BMP #### [facility] [address] [place] [address] GLUCOSE-POCT Collected: 04/27/2018 Status: F Source: [facility] 5:16 AM [facility] REPOSITORY TYPE CODE TESTS RESULT OUT OF RANGE REFERENCE UNITS LAB GLUP(LOINC) 74 - 99 mg/dL High 199 GLUCOSE-POCT Performed By: #### GLUPO #### [facility] [address] [place] [address] GLUCOSE-POCT Collected: 04/27/2018 Status: F Source: [facility] 12:18 AM HOSPITALS REPOSITORY TYPE CODE TESTS RESULT OUT OF RANGE REFERENCE UNITS LAB GLUP(LOINC) 74 - 99 mg/dL High 178 GLUCOSE-POCT Performed By: #### GLUPO #### [facility] [address] [place] [address] GLUCOSE-POCT Collected: 04/26/2018 Status: F Source: [facility] 8:17 PM HOSPITALS REPOSITORY TYPE CODE TESTS RESULT OUT OF RANGE REFERENCE UNITS LAB GLUP(LOINC) 74 - 99 mg/dL High 184 GLUCOSE-POCT Performed By: #### GLUPO #### [facility] [address] [place] [address] GLUCOSE-POCT Collected: 04/26/2018 Status: F Source: [facility] 4:36 PM HOSPITALS REPOSITORY TYPE CODE TESTS RESULT OUT OF RANGE REFERENCE UNITS LAB GLUP(LOINC) 74 - 99 mg/dL High 161 GLUCOSE-POCT Performed By: #### GLUPO #### [facility] [address] [place] [address] GLUCOSE-POCT Collected: 04/26/2018 Status: F Source: [facility] 11:52 AM HOSPITALS REPOSITORY TYPE CODE TESTS RESULT OUT OF RANGE REFERENCE UNITS LAB GLUP(LOINC) 74 - 99 mg/dL High 177 GLUCOSE-POCT Performed By: #### GLUPO #### [facility] [address] [place] [address] DAILY PROGRESS Observed: 04/26/2018 Status: COMPLETED Source: [facility] NOTE-MEDICINE 8:49 AM HOSPITALS REPOSITORY Service: Medicine Subjective Data: DIPESH BERMUDEZ is a 67 year old Male who is Hospital Day # 9. Overnight Events: Patient had an uneventful night. Objective Data: Objective Information: ---- Intake and Output ----- Mn/Dy/Year TimeIntakeOutputNet Apr 26, 2018 6:00 [id number] Apr 25, 2018 10:00 [id number] Apr 25, 2018 2:00 [id number] The Intake and Output Totals for the last 24 hours are: IntakeOutputNet 1462nullnull T PRBPSpO2 [id number]/8694% Date/Time04/26 15: 15: 15: 15: 15:37 Range(36.3C - 37C ) (62 - 86 ) (16 - 18 ) (122 - 138 )/ (77 - 87 ) (91% - 99% ) Highest temp of 37 C was recorded at 04/26 10:48 Pain with Activity reported at 04/26 8:00: 0 Pain at Rest reported at 04/26 8:00: 0 Physical Exam: Constitutional: Well developed, awake/alert/oriented x2, no distress, alert and cooperative Eyes: PERRL, EOMI, clear sclera ENMT: mucous membranes moist, no apparent injury, no lesions seen Head/Neck: Neck supple, no apparent injury, thyroid without mass or tenderness, No JVD, trachea midline, no bruits Respiratory/Thorax: Patent airways, CTAB, normal breath sounds with good chest expansion, thorax symmetric Cardiovascular: Regular, rate and rhythm, no murmurs, 2+ equal pulses of the extremities, normal S 1and S 2 Gastrointestinal: Nondistended, soft, non-tender, no rebound tenderness or guarding, no masses palpable, no organomegaly, +BS, no bruits PEG in situ Musculoskeletal: ROM intact, no joint swelling, normal strength Extremities: normal extremities, no cyanosis edema, contusions or wounds, no clubbing Neurological: alert and oriented x2, intact senses, motor, response and reflexes, normal strength Breast: No masses, tenderness, no discharge or discoloration Lymphatic: No significant lymphadenopathy Psychological: Appropriate mood and behavior Skin: Warm and dry, no lesions, no rashes Medication: Medications: Continuous Medications No continuous medications are active Scheduled Medications 1. Artificial Tears (Preservative Free): 2 drop(s) Both Eyes Every 4 Hours 2. Atorvastatin: 40 mg Oral Daily 3. Budesonide 0.5 mg/ 2 mL Nebulizer Soln: 2 mL Inhalation Every 12 Hours 4. cefTRIAXone IV Piggy Back: 2000 mg IntraVenous Piggyback Every 24 Hours 5. Docusate Oral Liquid: 100 mg Oral 2 Times a Day 6. Enoxaparin SubCutaneous: 40 mg SubCutaneous Every 24 Hours 7. Esomeprazole Oral Packet: 40 mg NasoGastric Tube 2 Times a Day 8. Formoterol 20 microgram/ 2 mL Neb Soln: 2 mL Inhalation Every 12 Hours 9. guaiFENesin Oral Liquid: 400 mg Oral Every 6 Hours 10. Insulin Glargine (Lantus) Injectable: 15 unit(s) SubCutaneous Every 24 Hours 11. Insulin Lispro Mild Corrective Scale: unit(s) SubCutaneous Every 4 Hours 12. Nystatin 100,000 Units/ gram Topical: 1 application(s) Topical 3 Times a Day 13. Saliva Substitute: 15 mL Oral 4 Times a Day 14. Silodosin (NON - Formulary): 8 mg Oral Daily 15. Simethicone Oral Liquid Drops: 80 mg Oral 4 Times a Day After Meals 16. Valproic Acid (Depakene) Oral Liquid: 500 mg PEG Tube <User Schedule> PRN Medications 1. Acetaminophen Oral Liquid: 650 mg Gastrostomy Tube Every 4 Hours 2. Albuterol 2.5 mg/ 3 mL Nebulizer Soln: 3 mL Inhalation Every 6 Hours 3. Dextrose 50% in Water Injectable: 25 gram(s) IntraVenous Push Every 15 Minutes 4. Glucagon Injectable: 1 mg IntraMuscular Every 15 Minutes 5. Polyethylene Glycol: 17 gram(s) Oral Daily Recent Lab Results: Results: I have reviewed these laboratory results: Glucose_POCT Trending View [id number] 16:36:00 26-Apr-2018 11:52:00 26-Apr-2018 07:33:00 26-Apr-2018 05:39:00 26-Apr-2018 01:04:00 25-Apr-2018 19:51:00 25-Apr-2018 16:54:00 25-Apr-2018 12:04:00 25-Apr-2018 08:16:00 25-Apr-2018 03:56:00 24-Apr-2018 21:30:00 Glucose-[id number] H 177 H 136 H 167 H 186 H 169 H 151 H 176 H 158 H 111 H 153 H Complete Blood Count Trending View [id number] 06:21:00 25-Apr-2018 06:00:00 White Blood Cell Count13.1 H 12.0 H Nucleated Erythrocyte Count0.0 0.0 Red Blood Cell Count4.34 L 4.21 L HGB12.7 L 12.4 L HCT39.8 L 37.3 L MCV92 89 MCHC31.9 L 33.2 QBG037 202 RDW-CV14.5 14.3 Basic Metabolic Panel 26-Apr-2018 06:21:00 ResultValue Glucose, Serum 134 H NA 133 L K 4.8 CL 94 L Bicarbonate, Serum 33 H Anion Gap, Serum 11 BUN 30 H CREAT 0.44 L GFR-Non >60 GFR- >60 Calcium, Serum 9.7 Renal Function Panel 25-Apr-2018 06:00:00 ResultValue Glucose, Serum 139 H NA 132 L K 4.7 CL 94 L Bicarbonate, Serum 33 H Anion Gap, Serum 10 BUN 22 CREAT 0.42 L GFR-Non >60 GFR- >60 Calcium, Serum 9.6 Phosphorus, Serum 2.7 ALB 2.7 L Radiology Results: Results: Impression: number 6 should read indeterminate nodular thickening of the right adrenal gland. The rest of the dictation remains unchanged. Addendum Ends Patient Name: DIPESH BERMUDEZ STUDY: CT CHEST W CONTRAST; 04/21/2018 8:33 pm INDICATION: Signs/Symptoms: unresolving pneumonia, LieFlat: Yes. COMPARISON: Contrast enhance CT angiogram of the chest dated 03/12/2018. ACCESSION NUMBER(S): [id number] ORDERING CLINICIAN: JACKSON BELTRAN TECHNIQUE: Helical data acquisition of the chest was obtained following administration of 90 mL Isovue 370 intravenous contrast.. Images were reformatted in axial, coronal, and sagittal planes. FINDINGS: LUNGS AND AIRWAYS: The trachea and central airways are patent. No endobronchial lesion. There are surgical clips in the left hilum and postoperative changes left lower lobe from likely left lower lobectomy. Correlate with prior surgical history. There is redemonstration of diffuse bronchial wall thickening, predominantly in the lower lobes, with mucus plugging seen. There is been interval re-aeration of the left lung. There is bibasilar atelectasis, greater on the left. There is a linear band like opacity in the left lung base which likely represents atelectasis versus scar, as it is seen as far back as the CT of the chest from 02/16/2018. There is tree-in-bud opacity predominantly in the left lower lobe. Correlate with bronchiolitis/small airway disease. There are trace bilateral pleural effusions. MEDIASTINUM AND MERRILL, LOWER NECK AND AXILLA: The visualized thyroid gland is within normal limits. Scattered subcentimeter non-specific prominent mediastinal lymph nodes, however no evidence of thoracic lymphadenopathy by CT criteria. There is a small hiatal hernia. HEART AND VESSELS: The thoracic aorta is ectatic, measuring up to 4 cm in diameter. There is moderate calcified and noncalcified atherosclerosis of the thoracic aorta. Main pulmonary artery and its branches are normal in caliber. Moderate coronary artery calcifications are seen in the left main coronary artery and LAD. The study is not optimized for evaluation of coronary arteries. The cardiac chambers are not enlarged. No evidence of pericardial effusion. UPPER ABDOMEN: There is a 1.5 cm indeterminate nodular thickening of the left adrenal gland. There are multiple low attenuating lesions within the kidneys, favored to be cysts. Positive oral contrast is seen within the visualized colon. PEG tube is in place within the stomach. CHEST WALL AND OSSEOUS STRUCTURES: There are no suspicious osseous lesions. Multilevel degenerative changes are present. There is gynecomastia. IMPRESSION: 1. Bronchial wall thickening predominantly in the lower lobes, and left lower lobe tree-in-bud opacity. Correlate with bronchiolitis/small airway disease, likely infectious in etiology. No focal consolidation is however identified. 2. Bibasilar atelectasis, left more than right. Trace bibasilar pleural effusion. 3. Moderate coronary artery calcifications. 4. Ectatic thoracic aorta measuring up to 4 cm in diameter with moderate calcified and noncalcified atherosclerosis. 5. Postoperative changes consistent with left lower lobectomy. Correlate with surgical history. 6. 1.5 cm indeterminate nodular thickening of the left adrenal gland. ADDENDUM: Impression number 6 should read indeterminate nodular thickening of the right adrenal gland. The rest of the dictation remains unchanged. CT Chest with Contrast [Apr 24 2018 8:46AM] Conclusion: Electrocardiogram 12 Lead [Apr 21 2018 11:42PM] Impression: 1. Fluoroscopic support provided to speech pathologist for a modified barium swallow findings as described above. Correlate with detailed report from speech pathologist for dietary recommendations. Xray Complete Pharyngeal + Speech Eval [Apr 21 2018 3:53PM] Impression: Persistent left basilar and retrocardiac opacity which can be due to pneumonia in appropriate clinical setting. No significant interval change Xray Chest 1 View [Apr 21 2018 6:55AM] Impression: 1. Unchanged left basilar retrocardiac opacity, likely representing combination of atelectasis and small pleural effusion with or without superimposed consolidation. 2. No pneumothorax. Xray Chest 1 View [Apr 19 2018 7:55AM] Impression: Xray Chest 1 View [Apr 19 2018 12:20AM] Assessment and Plan: Assessment: This is a 67 year old male with history significant for HTN, type II DM, COPD, left lung resection in (for unclear reasons), CYNTHIA, and meningioma s/p craniotomy with resection 2013 (at [facility]) who was recently admitted 02/10/18-04/04/18 for meningioma resection with 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 Admitted to medicine. In a shared visit with Dr. Jennings # PNA: - Pulmonology consulted -> signed off. Likely recurrent aspiration pneumonia Chest CT 04/22 to assist with further plan for antibiotics --> Bronchial wall thickening predominantly in the lower lobes, and left lower lobe tree-in-bud opacity. Bronchiolitis/small airway disease, likely infectious in etiology. Pulmonary recommends to continue antibiotics x 2 weeks course. One set of blood cultures was sent at [facility] 04/18 - per phone requested result on 04/22 --> aerobic vial positive for gram negative rods and 04/23 Breveundimonis diminuta - roman sensitive reported. Blood cultures from 04/18 [place] negative -final. - ID consulted: started on ceftriaxone 2 gm every 24 hours for total of 10 days, stop date 04/27 (switch to levofloxacin if discharged prior to ceftriaxone completion) - > WBC down to 12.0 today - continue EZ pap and vest therapy - weaned off supplemental 02. Satting 95% on RA - bronchial hygiene - palliative care consulted to assist with conversations on plan of care (previously saw him during prior hospitalization) # COPD: - continue inhaled formoterol and budesonide - hold off with Advair as he is unable to comply with medication administration - continue PRN albuterol nebulizer treatments # Dysphagia s/p PEG tube placement: repeat MBS 04/21 with speech therapy recommending to continue NPO with PEG tube feedings. - Repeat MBSS in 2-3 months. - NPO status with PEG tube feedings - continue Diabetic Source tube feedings and free water flushes # Grade D esophagitis: - continue PPI BID (plan was for him to be on this for 3 months following EGD on 02/21/18) - arranged for outpatient GI follow up on 06/06/18 # Type II DM: - continue Lantus 15 units daily (home dose 30 units daily) - ISS - hypo-/ hyperglycemia protocol # CYNTHIA: - continue CPAP at night # DVT Prophylaxis: - enoxaparin, b/l SCD Code status: - DNAR/DNI # Discharge disposition: - pt was at SNF prior to going to [facility]. Nephew Donta reporting that has mild cognitive deficits at baseline and has a low IQ. - PT recommending SNF - nephew Donta updated. He would like him to return to prior SNF - anticipate discharge back to SNF in next 2-3 days if respiratory status stable Signature/Cosignature/Attestation: Attending Only - Shared Visit with Advanced Practice ProviderThis is a shared visit. I have reviewed the Advanced Practice Providers encounter note, approve the Advanced Practice Providers documentation, and provide the following additional information from my personal encounter. Comments/ Additional Findings Patient see and examined with the HANDLE SANDER OPERATOR today. Agree with the above exam and assessment/ plan. Gen: NAD HEENT: facial droop CV: RRR Pulm: CTAB GI: soft, non-tender Ext: no pitting edema 67 year old male with a past medical history of COPD, CYNTHIA, DM-II, meningioma s/p resection in 2013 with recurrence, and recent admission (from 02/10/18-04/04/18) for repeat resection with hospital course complicated by brainstem infarction, dysphagia (now s/p PEG), line associated DVT, and multiple HAP (MRSA and Pseudomonas) and recurrent mucous plugging, atelectasis requiring aggressive respiratory management that was discharged to SNF. On 04/18/18 patient was found at SNF to be tachycardic and hypoxic so transferred to OSH. At OSH ED that was concern for LLL PNA on CXR so he was started on broad spectrum abx and transferred to [facility] on 04/18/18 due to for further care. Hypoxic Respiratory Failure/ Concern for LLL PNA: - given history concern for recurrent aspiration even - CT chest with left tree in bud opacity most likely infectious - pulmonary consulted - aggressive respiratory therapy per pulm/ respiratory recs - blood cultures from OSH growing Brevundimonis dimunnnata/ all culture from [facility] - ID consulted - continue ceftriaxone 2g daily for 10 day course (stop date 04/27/13) - if leaves can prior to stop date can transition to levofloxacin 750mg daily Dysphagia: - speech consulted and MBS done -> continue strict NPO Meningioma 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: - continue valproic acid Hyponatremia: - continue to monitor COPD: - does not appear to be in exacerbation - continue inhalers CYNTHIA: - continue CPAP DM: - Lantus 15U daily (1/2 home dose) and ISS Diet: - tube feeds Ppx: - Lovenox subcutaneous Electronic Signatures: Kimberly Singer) (Signed 02-May-2018 16:06) Authored: Signature/Cosignature/Attestation Co-Signer: Subjective Data, Objective Data, Assessment and Plan TeriConstantine whitman ([employer] OPERATOR-GROUP MANAGER) (Signed 26-Apr-2018 18:26) Authored: Service, Subjective Data, Objective Data, Assessment and Plan Last Updated: 02-May-2018 16:06 by Kimberly Singer) GLUCOSE-POCT Collected: 04/26/2018 Status: F Source: [facility] 7:33 AM HOSPITALS REPOSITORY TYPE CODE TESTS RESULT OUT OF RANGE REFERENCE UNITS LAB GLUP(LOINC) 74 - 99 mg/dL High 136 GLUCOSE-POCT Performed By: #### GLUPO #### [facility] [address] [place] [address] CBC Collected: 04/26/2018 Status: F Source: [facility] 6:21 AM HOSPITALS REPOSITORY TYPE CODE TESTS RESULT OUT OF REFERENCE UNITS RANGE LAB WBCR(LOINC 4.4 - 11.3 x10E9/L ) WBC High 13.1 LAB NRBC(LOINC 0.0-0.0 /100 WBC ) NUCLEATED RBC 0.0 LAB RBCCT(LOIN 4.50 - 5.90 x10E12/L C) Low RBC 4.34 LAB HGB(LOINC) 13.5 - 17.5 g/dL Low HGB 12.7 LAB HCT(LOINC) 41.0 - 52.0 % Low HCT 39.8 LAB MCV(LOINC) 80 - 100 fL MCV 92 LAB MCHC2(LOIN 32.0 - 36.0 g/dL C) Low MCHC 31.9 LAB PLTCT(LOIN 150 - 450 x10E9/L C) PLT 243 LAB RDWCV(LOIN 11.5 - 14.5 % C) RDW-CV 14.5 Performed By: #### CBC #### [facility] [address] [place] [id number] BASIC METABOLIC PANEL Collected: 04/26/2018 Status: F Source: [facility] 6:21 AM HOSPITALS REPOSITORY TYPE CODE TESTS RESULT OUT OF REFERENCE UNITS RANGE LAB GLU(LOINC) 74 - 99 mg/dL GLUCOSE High 134 LAB SOD(LOINC) 136 - 145 mmol/L Low SODIUM 133 LAB K(LOINC) 3.5 - 5.3 mmol/L POTASSIUM 4.8 LAB CHLOR(LOIN 98 - 107 mmol/L C) Low CHLORIDE 94 LAB BIC(LOINC) 21 - 32 mmol/L BICARBONATE High 33 LAB ANGAP(LOIN 10 - 20 mmol/L C) ANION GAP 11 LAB UREA(LOINC 6 - 23 mg/dL ) UREA High NITROGEN 30 LAB CREA(LOINC 0.50 - 1.30 mg/dL ) Low CREATININE 0.44 LAB GFRFN(LOIN >60 mL/min/1.7 C) 3m2 GFR-NON AM. >60 LAB GFRAA(LOIN >60 mL/min/1.7 C) 3m2 GFR- AM. >60 Result Comment: CALCULATIONS OF ESTIMATED GFR ARE PERFORMED USING THE MDRD STUDY EQUATION FOR THE IDMS-TRACEABLE CREATININE METHODS. CLIN CHEM 2007;53:766-72 LAB CA(LOINC) 8.6 - 10.6 mg/dL CALCIUM 9.7 Performed By: #### BMP #### [facility] [address] [place] [address] GLUCOSE-POCT Collected: 04/26/2018 Status: F Source: [facility] 5:39 AM HOSPITALS REPOSITORY TYPE CODE TESTS RESULT OUT OF RANGE REFERENCE UNITS LAB GLUP(LOINC) 74 - 99 mg/dL High 167 GLUCOSE-POCT Performed By: #### GLUPO #### [facility] [address] [place] [address] GLUCOSE-POCT Collected: 04/26/2018 Status: F Source: [facility] 1:04 AM [facility]OSPITALS REPOSITORY TYPE CODE TESTS RESULT OUT OF RANGE REFERENCE UNITS LAB GLUP(LOINC) 74 - 99 mg/dL High 186 GLUCOSE-POCT Performed By: #### GLUPO #### [facility] [address] [place] [address] GLUCOSE-POCT Collected: 04/25/2018 Status: F Source: [facility] 7:51 PM HOSPITALS REPOSITORY TYPE CODE TESTS RESULT OUT OF RANGE REFERENCE UNITS LAB GLUP(LOINC) 74 - 99 mg/dL High 169 GLUCOSE-POCT Performed By: #### GLUPO #### [facility] [address] [place] [address] GLUCOSE-POCT Collected: 04/25/2018 Status: F Source: [facility] 4:54 PM HOSPITALS REPOSITORY TYPE CODE TESTS RESULT OUT OF RANGE REFERENCE UNITS LAB GLUP(LOINC) 74 - 99 mg/dL High 151 GLUCOSE-POCT Performed By: #### GLUPO #### [facility] [address] [place] [address] GLUCOSE-POCT Collected: 04/25/2018 Status: F Source: [facility] 12:04 PM HOSPITALS REPOSITORY TYPE CODE TESTS RESULT OUT OF RANGE REFERENCE UNITS LAB GLUP(LOINC) 74 - 99 mg/dL High 176 GLUCOSE-POCT Performed By: #### GLUPO #### [facility] [address] [place] [address] DAILY PROGRESS Observed: 04/25/2018 Status: COMPLETED Source: [facility] NOTE-MEDICINE 9:29 AM HOSPITALS REPOSITORY Service: Medicine Subjective Data: DIPESH BERMUDEZ is a 67 year old Male who is Hospital Day # 8. Overnight Events: Patient had an uneventful night. Objective Data: Objective Information: ---- Intake and Output ----- Mn/Dy/Year TimeIntakeOutputNet Apr 25, 2018 6:00 am000 Apr 24, 2018 10:00 [id number] Apr 24, 2018 2:00 [id number] The Intake and Output Totals for the last 24 hours are: IntakeOutputNet 1545nullnull T PRBPSpO2 [id number]/8795% Date/Time04/25 12: 12: 12: 12: 12:02 Range(36C - 36.8C ) (67 - 184 ) (16 - 18 ) (126 - 139 )/ (78 - 87 ) (95% - 99% ) Pain with Activity reported at 04/25 9:00: 0 Pain at Rest reported at 04/25 9:00: 0 Physical Exam: Constitutional: Well developed, awake/alert/oriented x2, no distress, alert and cooperative Eyes: PERRL, EOMI, clear sclera ENMT: mucous membranes moist, no apparent injury, no lesions seen Rt lower facial droop Head/Neck: Neck supple, no apparent injury, thyroid without mass or tenderness, No JVD, trachea midline, no bruits Respiratory/Thorax: Patent airways, CTAB, normal breath sounds with good chest expansion, thorax symmetric Cardiovascular: Regular, rate and rhythm, no murmurs, 2+ equal pulses of the extremities, normal S 1and S 2 Gastrointestinal: Nondistended, soft, non-tender, no rebound tenderness or guarding, no masses palpable, no organomegaly, +BS, no bruits PEG in situ Musculoskeletal: ROM intact, no joint swelling, normal strength Extremities: normal extremities, no cyanosis edema, contusions or wounds, no clubbing Neurological: alert and oriented x2, intact senses, motor, response and reflexes, normal strength Breast: No masses, tenderness, no discharge or discoloration Lymphatic: No significant lymphadenopathy Psychological: Appropriate mood and behavior Skin: Warm and dry, no lesions, no rashes Medication: Medications: Continuous Medications No continuous medications are active Scheduled Medications 1. Artificial Tears (Preservative Free): 2 drop(s) Both Eyes Every 4 Hours 2. Atorvastatin: 40 mg Oral Daily 3. Budesonide 0.5 mg/ 2 mL Nebulizer Soln: 2 mL Inhalation Every 12 Hours 4. cefTRIAXone IV Piggy Back: 2000 mg IntraVenous Piggyback Every 24 Hours 5. Docusate Oral Liquid: 100 mg Oral 2 Times a Day 6. Enoxaparin SubCutaneous: 40 mg SubCutaneous Every 24 Hours 7. Esomeprazole Oral Packet: 40 mg NasoGastric Tube 2 Times a Day 8. Formoterol 20 microgram/ 2 mL Neb Soln: 2 mL Inhalation Every 12 Hours 9. guaiFENesin Oral Liquid: 400 mg Oral Every 6 Hours 10. Insulin Glargine (Lantus) Injectable: 15 unit(s) SubCutaneous Every 24 Hours 11. Insulin Lispro Mild Corrective Scale: unit(s) SubCutaneous Every 4 Hours 12. Nystatin 100,000 Units/ gram Topical: 1 application(s) Topical 3 Times a Day 13. Saliva Substitute: 15 mL Oral 4 Times a Day 14. Silodosin (NON - Formulary): 8 mg Oral Daily 15. Simethicone Oral Liquid Drops: 80 mg Oral 4 Times a Day After Meals 16. Valproic Acid (Depakene) Oral Liquid: 500 mg PEG Tube <User Schedule> PRN Medications 1. Acetaminophen Oral Liquid: 650 mg Gastrostomy Tube Every 4 Hours 2. Albuterol 2.5 mg/ 3 mL Nebulizer Soln: 3 mL Inhalation Every 6 Hours 3. Dextrose 50% in Water Injectable: 25 gram(s) IntraVenous Push Every 15 Minutes 4. Glucagon Injectable: 1 mg IntraMuscular Every 15 Minutes 5. Polyethylene Glycol: 17 gram(s) Oral Daily Recent Lab Results: Results: I have reviewed these laboratory results: Glucose_POCT Trending View [id number] 16:54:00 25-Apr-2018 12:04:00 25-Apr-2018 08:16:00 25-Apr-2018 03:56:00 [id number] H 176 H 158 H 111 H Renal Function Panel 25-Apr-2018 06:00:00 ResultValue Glucose, Serum 139 H NA 132 L K 4.7 CL 94 L Bicarbonate, Serum 33 H Anion Gap, Serum 10 BUN 22 CREAT 0.42 L GFR-Non >60 GFR- >60 Calcium, Serum 9.6 Phosphorus, Serum 2.7 ALB 2.7 L Complete Blood Count 25-Apr-2018 06:00:00 ResultValue White Blood Cell Count 12.0 H Nucleated Erythrocyte Count 0.0 Red Blood Cell Count 4.21 L HGB 12.4 L HCT 37.3 L MCV 89 MCHC 33.2 PLT 202 RDW-CV 14.3 Radiology Results: Results: Impression: number 6 should read indeterminate nodular thickening of the right adrenal gland. The rest of the dictation remains unchanged. Addendum Ends Patient Name: DIPESH BERMUDEZ STUDY: CT CHEST W CONTRAST; 04/21/2018 8:33 pm INDICATION: Signs/Symptoms: unresolving pneumonia, LieFlat: Yes. COMPARISON: Contrast enhance CT angiogram of the chest dated 03/12/2018. ACCESSION NUMBER(S): [id number] ORDERING CLINICIAN: JACKSON BELTRAN TECHNIQUE: Helical data acquisition of the chest was obtained following administration of 90 mL Isovue 370 intravenous contrast.. Images were reformatted in axial, coronal, and sagittal planes. FINDINGS: LUNGS AND AIRWAYS: The trachea and central airways are patent. No endobronchial lesion. There are surgical clips in the left hilum and postoperative changes left lower lobe from likely left lower lobectomy. Correlate with prior surgical history. There is redemonstration of diffuse bronchial wall thickening, predominantly in the lower lobes, with mucus plugging seen. There is been interval re-aeration of the left lung. There is bibasilar atelectasis, greater on the left. There is a linear band like opacity in the left lung base which likely represents atelectasis versus scar, as it is seen as far back as the CT of the chest from 02/16/2018. There is tree-in-bud opacity predominantly in the left lower lobe. Correlate with bronchiolitis/small airway disease. There are trace bilateral pleural effusions. MEDIASTINUM AND MERRILL, LOWER NECK AND AXILLA: The visualized thyroid gland is within normal limits. Scattered subcentimeter non-specific prominent mediastinal lymph nodes, however no evidence of thoracic lymphadenopathy by CT criteria. There is a small hiatal hernia. HEART AND VESSELS: The thoracic aorta is ectatic, measuring up to 4 cm in diameter. There is moderate calcified and noncalcified atherosclerosis of the thoracic aorta. Main pulmonary artery and its branches are normal in caliber. Moderate coronary artery calcifications are seen in the left main coronary artery and LAD. The study is not optimized for evaluation of coronary arteries. The cardiac chambers are not enlarged. No evidence of pericardial effusion. UPPER ABDOMEN: There is a 1.5 cm indeterminate nodular thickening of the left adrenal gland. There are multiple low attenuating lesions within the kidneys, favored to be cysts. Positive oral contrast is seen within the visualized colon. PEG tube is in place within the stomach. CHEST WALL AND OSSEOUS STRUCTURES: There are no suspicious osseous lesions. Multilevel degenerative changes are present. There is gynecomastia. IMPRESSION: 1. Bronchial wall thickening predominantly in the lower lobes, and left lower lobe tree-in-bud opacity. Correlate with bronchiolitis/small airway disease, likely infectious in etiology. No focal consolidation is however identified. 2. Bibasilar atelectasis, left more than right. Trace bibasilar pleural effusion. 3. Moderate coronary artery calcifications. 4. Ectatic thoracic aorta measuring up to 4 cm in diameter with moderate calcified and noncalcified atherosclerosis. 5. Postoperative changes consistent with left lower lobectomy. Correlate with surgical history. 6. 1.5 cm indeterminate nodular thickening of the left adrenal gland. ADDENDUM: Impression number 6 should read indeterminate nodular thickening of the right adrenal gland. The rest of the dictation remains unchanged. CT Chest with Contrast [Apr 24 2018 8:46AM] Conclusion: Electrocardiogram 12 Lead [Apr 21 2018 11:42PM] Impression: 1. Fluoroscopic support provided to speech pathologist for a modified barium swallow findings as described above. Correlate with detailed report from speech pathologist for dietary recommendations. Xray Complete Pharyngeal + Speech Eval [Apr 21 2018 3:53PM] Impression: Persistent left basilar and retrocardiac opacity which can be due to pneumonia in appropriate clinical setting. No significant interval change Xray Chest 1 View [Apr 21 2018 6:55AM] Impression: 1. Unchanged left basilar retrocardiac opacity, likely representing combination of atelectasis and small pleural effusion with or without superimposed consolidation. 2. No pneumothorax. Xray Chest 1 View [Apr 19 2018 7:55AM] Impression: Xray Chest 1 View [Apr 19 2018 12:20AM] Impression: Xray Chest 1 View [Apr 18 2018 9:17PM] Assessment and Plan: Assessment: This is a 67 year old male with history significant for HTN, type II DM, COPD, left lung resection in (for unclear reasons), CYNTHIA, and meningioma s/p craniotomy with resection 2013 (at [facility]) who was recently admitted 02/10/18-04/04/18 for meningioma resection with 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 Admitted to medicine. In a shared visit with Dr. Jennings # PNA: - Pulmonology consulted, Likely recurrent aspiration pneumonia Chest CT 04/22 to assist with further plan for antibiotics --> Bronchial wall thickening predominantly in the lower lobes, and left lower lobe tree-in-bud opacity. Bronchiolitis/small airway disease, likely infectious in etiology. Pulmonary recommends to continue antibiotics x 2 weeks course. One set of blood cultures was sent at [facility] 04/18 - per phone requested result on 04/22 --> aerobic vial positive for gram negative rods and 04/23 Breveundimonis diminuta - roman sensitive reported. Blood cultures from 04/18 [place] negative -final. - ID consulted: started on ceftriaxone 2 gm every 24 hours for total of 10 days, stop date 04/27 (switch to levofloxacin if discharged prior to ceftriaxone completion) - > WBC down to 12.0 today - continue EZ pap and vest therapy - wean supplemental 02 as tolerated (he is not normally on 02) - bronchial hygiene - palliative care consulted to assist with conversations on plan of care (previously saw him during prior hospitalization) # COPD: - continue inhaled formoterol and budesonide - hold off with Advair as he is unable to comply with medication administration - continue PRN albuterol nebulizer treatments # Dysphagia s/p PEG tube placement: repeat MBS 04/21 with speech therapy recommending to continue NPO with PEG tube feedings. - Repeat MBSS in 2-3 months. - NPO status with PEG tube feedings - continue Diabetic Source tube feedings and free water flushes # Grade D esophagitis: - continue PPI BID (plan was for him to be on this for 3 months following EGD on 02/21/18) - arranged for outpatient GI follow up on 06/06/18 # Type II DM: - continue Lantus 15 units daily (home dose 30 units daily); will consider increasing dose - ISS - hypo-/ hyperglycemia protocol # CYNTHIA: - continue CPAP # DVT Prophylaxis: - enoxaparin, b/l SCD Code status: - DNAR/DNI # Discharge disposition: - pt was at SNF prior to going to [facility]. Nephew Donta reporting that has mild cognitive deficits at baseline and has a low IQ. - PT recommending SNF - nephbibiana Macias would like him to return to prior SNF - anticipate discharge back to SNF in next 2-3 days if respiratory status stable Signature/Cosignature/Attestation: Comments/ Additional Findings Patient see and examined with the HANDLE SANDER OPERATOR today. Agree with the above exam and assessment/ plan. Gen: NAD HEENT: facial droop CV: RRR Pulm: CTAB GI: soft, non-tender Ext: no pitting edema 67 year old male with a past medical history of COPD, CYNTHIA, DM-II, meningioma s/p resection in 2013 with recurrence, and recent admission (from 02/10/18-04/04/18) for repeat resection with hospital course complicated by brainstem infarction, dysphagia (now s/p PEG), line associated DVT, and multiple HAP (MRSA and Pseudomonas) and recurrent mucous plugging, atelectasis requiring aggressive respiratory management that was discharged to SNF. On 04/18/18 patient was found at SNF to be tachycardic and hypoxic so transferred to OSH. At OSH ED that was concern for LLL PNA on CXR so he was started on broad spectrum abx and transferred to [facility] on 04/18/18 due to for further care. Hypoxic Respiratory Failure/ Concern for LLL PNA: - given history concern for recurrent aspiration even - CT chest with left tree in bud opacity most likely infectious - pulmonary consulted - aggressive respiratory therapy per pulm/ respiratory recs - blood cultures from OSH growing Brevundimonis dimunnnata/ all culture from [facility] - ID consulted - continue ceftriaxone 2g daily for 10 day course (stop date 04/27/13) - if leaves can prior to stop date can transition to levofloxacin 750mg daily Dysphagia: - speech consulted and MBS done -> continue strict NPO Meningioma 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: - continue valproic acid Hyponatremia: - continue to monitor COPD: - does not appear to be in exacerbation - continue inhalers CYNTHIA: - continue CPAP DM: - Lantus 15U daily (1/2 home dose) and ISS Diet: - tube feeds Ppx: - Lovenox subcutaneous Electronic Signatures: Kimberly Singer) (Signed 02-May-2018 16:04) Authored: Signature/Cosignature/Attestation Co-Signer: Subjective Data, Objective Data, Assessment and Plan Constantine Ji ([employer] OPERATOR-GROUP MANAGER) (Signed 25-Apr-2018 18:42) Authored: Service, Subjective Data, Objective Data, Assessment and Plan Last Updated: 02-May-2018 16:04 by Kimberly Singer) GLUCOSE-POCT Collected: 04/25/2018 Status: F Source: [facility] 8:16 AM [facility] REPOSITORY TYPE CODE TESTS RESULT OUT OF RANGE REFERENCE UNITS LAB GLUP(LOINC) 74 - 99 mg/dL High 158 GLUCOSE-POCT Performed By: #### GLUPO #### [facility] [address] [place] [id number] CBC Collected: 04/25/2018 Status: F Source: [facility] 6:00 [facility]PITALS REPOSITORY TYPE CODE TESTS RESULT OUT OF REFERENCE UNITS RANGE LAB WBCR(LOINC 4.4 - 11.3 x10E9/L ) WBC High 12.0 LAB NRBC(LOINC 0.0-0.0 /100 WBC ) NUCLEATED RBC 0.0 LAB RBCCT(LOIN 4.50 - 5.90 x10E12/L C) Low RBC 4.21 LAB HGB(LOINC) 13.5 - 17.5 g/dL Low HGB 12.4 LAB HCT(LOINC) 41.0 - 52.0 % Low HCT 37.3 LAB MCV(LOINC) 80 - 100 fL MCV 89 LAB MCHC2(LOIN 32.0 - 36.0 g/dL C) MCHC 33.2 LAB PLTCT(LOIN 150 - 450 x10E9/L C) PLT 202 LAB RDWCV(LOIN 11.5 - 14.5 % C) RDW-CV 14.3 Performed By: #### CBC #### [facility] [id number] [place] [address] RENAL FUNCTION PANEL Collected: 04/25/2018 Status: F Source: ID[facility]EL 6:00 [facility] REPOSITORY TYPE CODE TESTS RESULT OUT OF REFERENCE UNITS RANGE LAB GLU(LOINC) 74 - 99 mg/dL GLUCOSE High 139 LAB SOD(LOINC) 136 - 145 mmol/L Low SODIUM 132 LAB K(LOINC) 3.5 - 5.3 mmol/L POTASSIUM 4.7 LAB CHLOR(LOIN 98 - 107 mmol/L C) Low CHLORIDE 94 LAB BIC(LOINC) 21 - 32 mmol/L BICARBONATE High 33 LAB ANGAP(LOIN 10 - 20 mmol/L C) ANION GAP 10 LAB UREA(LOINC 6 - 23 mg/dL ) UREA NITROGEN 22 LAB CREA(LOINC 0.50 - 1.30 mg/dL ) Low CREATININE 0.42 LAB GFRFN(LOIN >60 mL/min/1.7 C) 3m2 GFR-NON AM. >60 LAB GFRAA(LOIN >60 mL/min/1.7 C) 3m2 GFR- AM. >60 Result Comment: CALCULATIONS OF ESTIMATED GFR ARE PERFORMED USING THE MDRD STUDY EQUATION FOR THE IDMS-TRACEABLE CREATININE METHODS. CLIN CHEM 2007;53:766-72 LAB CA(LOINC) 8.6 - 10.6 mg/dL CALCIUM 9.6 LAB PHOS(LOINC) 2.5 - 4.9 mg/dL PHOSPHORUS 2.7 Result Comment: The performance characteristics of phosphorus testing in heparinized plasma have been validated by the individual laboratory site where testing is performed. Testing on heparinized plasma is not approved by the FDA; however, such approval is not necessary. LAB ALB(LOINC) 3.4 - 5.0 g/dL Low ALBUMIN 2.7 Performed By: #### RENAL #### [facility] [address] [place] [address] GLUCOSE-POCT Collected: 04/25/2018 Status: F Source: [facility] 3:56 AM [facility] REPOSITORY TYPE CODE TESTS RESULT OUT OF RANGE REFERENCE UNITS LAB GLUP(LOINC) 74 - 99 mg/dL High 111 GLUCOSE-POCT Performed By: #### GLUPO #### [facility] [address] [place] [address] GLUCOSE-POCT Collected: 04/24/2018 Status: F Source: [facility] 9:30 PM [facility] REPOSITORY TYPE CODE TESTS RESULT OUT OF RANGE REFERENCE UNITS LAB GLUP(LOINC) 74 - 99 mg/dL High 153 GLUCOSE-POCT Performed By: #### GLUPO #### [facility] [address] [place] [address] GLUCOSE-POCT Collected: 04/24/2018 Status: F Source: ID[facility] 5:16 PM [facility] REPOSITORY TYPE CODE TESTS RESULT OUT OF RANGE REFERENCE UNITS LAB GLUP(LOINC) 74 - 99 mg/dL High 148 GLUCOSE-POCT Performed By: #### GLUPO #### [facility] [address] [place] [address] DAILY PROGRESS Observed: 04/24/2018 Status: COMPLETED Source: [facility] NOTE-MEDICINE 12:44 PM [facility]OS[facility]ITALS REPOSITORY Service: Medicine Subjective Data: DIPESH BERMUDEZ is a 67 year old Male who is Hospital Day # 7. Overnight Events: Patient had an uneventful night. Additional Information: Patient verbal with one word communication pointing to abdomen nodding head when asked if in pain. Patient again nodded when asked regarding feeling constipated. Objective Data: Objective Information: ---- Intake and Output ----- Mn/Dy/Year TimeIntakeOutputNet Apr 24, 2018 6:00 am000 Apr 23, 2018 10:00 [id number] Apr 23, 2018 2:00 [id number] The Intake and Output Totals for the last 24 hours are: IntakeOutputNet 1380nullnull T PRBPSpO2 [id number]/8196% Date/Time04/24 19: 19: 19: 19: 19:05 Range(36C - 36.9C ) (61 - 75 ) (16 - 18 ) (126 - 137 )/ (76 - 84 ) (96% - 100% ) Highest temp of 36.9 C was recorded at 04/24 10:46 Physical Exam: Constitutional: lying in bed, in NAD Eyes: sclera clear, no injection or drainage ENMT: MMM, no lesions noted Head/Neck: Craniectomy incision well healed Respiratory/Thorax: CTAB, breathing even, unlabored, chest excursion even and symmetric on 2L N/C Cardiovascular: RRR, normal S1, S2, no m,r,g Gastrointestinal: +BS, soft, rounded nontender, Peg intact with no drainage at site Extremities: PPPx4, no edema Neurological: A&O to person and year, occasionally following simple command and limited one word verbalization Psychological: calm Skin: Warm, dry, and intact Medication: Medications: Continuous Medications No continuous medications are active Scheduled Medications 1. Artificial Tears (Preservative Free): 2 drop(s) Both Eyes Every 4 Hours 2. Atorvastatin: 40 mg Oral Daily 3. Budesonide 0.5 mg/ 2 mL Nebulizer Soln: 2 mL Inhalation Every 12 Hours 4. cefTRIAXone IV Piggy Back: 2000 mg IntraVenous Piggyback Every 24 Hours 5. Docusate Oral Liquid: 100 mg Oral 2 Times a Day 6. Enoxaparin SubCutaneous: 40 mg SubCutaneous Every 24 Hours 7. Esomeprazole Oral Packet: 40 mg NasoGastric Tube 2 Times a Day 8. Formoterol 20 microgram/ 2 mL Neb Soln: 2 mL Inhalation Every 12 Hours 9. guaiFENesin Oral Liquid: 400 mg Oral Every 6 Hours 10. Insulin Glargine (Lantus) Injectable: 15 unit(s) SubCutaneous Every 24 Hours 11. Insulin Lispro Mild Corrective Scale: unit(s) SubCutaneous Every 4 Hours 12. Nystatin 100,000 Units/ gram Topical: 1 application(s) Topical 3 Times a Day 13. Saliva Substitute: 15 mL Oral 4 Times a Day 14. Silodosin (NON - Formulary): 8 mg Oral Daily 15. Simethicone Oral Liquid Drops: 80 mg Oral 4 Times a Day After Meals 16. Valproic Acid (Depakene) Oral Liquid: 500 mg PEG Tube <User Schedule> PRN Medications 1. Acetaminophen Oral Liquid: 650 mg Gastrostomy Tube Every 4 Hours 2. Albuterol 2.5 mg/ 3 mL Nebulizer Soln: 3 mL Inhalation Every 6 Hours 3. Dextrose 50% in Water Injectable: 25 gram(s) IntraVenous Push Every 15 Minutes 4. Glucagon Injectable: 1 mg IntraMuscular Every 15 Minutes 5. Polyethylene Glycol: 17 gram(s) Oral Daily Recent Lab Results: Results: I have reviewed these laboratory results: Glucose_POCT Trending View [id number] 21:30:00 24-Apr-2018 17:16:00 24-Apr-2018 12:20:00 24-Apr-2018 07:46:00 24-Apr-2018 04:12:00 24-Apr-2018 00:34:00 23-Apr-2018 17:13:00 23-Apr-2018 13:10:00 [id number] H 148 H 182 H 161 H 158 H 226 H 124 H 182 H Renal Function Panel 24-Apr-2018 07:35:00 ResultValue Glucose, Serum 157 H NA 128 L K 5.2 CL 92 L Bicarbonate, Serum 28 Anion Gap, Serum 13 BUN 24 H CREAT 0.42 L GFR-Non >60 GFR- >60 Calcium, Serum 8.9 Phosphorus, Serum 2.5 ALB 2.6 L Complete Blood Count 24-Apr-2018 07:35:00 ResultValue White Blood Cell Count 13.1 H Nucleated Erythrocyte Count 0.0 Red Blood Cell Count 4.10 L HGB 12.0 L HCT 38.0 L MCV 93 MCHC 31.6 L PLT 216 RDW-CV 14.4 Radiology Results: Results: Impression: number 6 should read indeterminate nodular thickening of the right adrenal gland. The rest of the dictation remains unchanged. Addendum Ends Patient Name: DIPESH BERMUDEZ STUDY: CT CHEST W CONTRAST; 04/21/2018 8:33 pm INDICATION: Signs/Symptoms: unresolving pneumonia, LieFlat: Yes. COMPARISON: Contrast enhance CT angiogram of the chest dated 03/12/2018. ACCESSION NUMBER(S): [id number] ORDERING CLINICIAN: JACKSON BELTRAN TECHNIQUE: Helical data acquisition of the chest was obtained following administration of 90 mL Isovue 370 intravenous contrast.. Images were reformatted in axial, coronal, and sagittal planes. FINDINGS: LUNGS AND AIRWAYS: The trachea and central airways are patent. No endobronchial lesion. There are surgical clips in the left hilum and postoperative changes left lower lobe from likely left lower lobectomy. Correlate with prior surgical history. There is redemonstration of diffuse bronchial wall thickening, predominantly in the lower lobes, with mucus plugging seen. There is been interval re-aeration of the left lung. There is bibasilar atelectasis, greater on the left. There is a linear band like opacity in the left lung base which likely represents atelectasis versus scar, as it is seen as far back as the CT of the chest from 02/16/2018. There is tree-in-bud opacity predominantly in the left lower lobe. Correlate with bronchiolitis/small airway disease. There are trace bilateral pleural effusions. MEDIASTINUM AND MERRILL, LOWER NECK AND AXILLA: The visualized thyroid gland is within normal limits. Scattered subcentimeter non-specific prominent mediastinal lymph nodes, however no evidence of thoracic lymphadenopathy by CT criteria. There is a small hiatal hernia. HEART AND VESSELS: The thoracic aorta is ectatic, measuring up to 4 cm in diameter. There is moderate calcified and noncalcified atherosclerosis of the thoracic aorta. Main pulmonary artery and its branches are normal in caliber. Moderate coronary artery calcifications are seen in the left main coronary artery and LAD. The study is not optimized for evaluation of coronary arteries. The cardiac chambers are not enlarged. No evidence of pericardial effusion. UPPER ABDOMEN: There is a 1.5 cm indeterminate nodular thickening of the left adrenal gland. There are multiple low attenuating lesions within the kidneys, favored to be cysts. Positive oral contrast is seen within the visualized colon. PEG tube is in place within the stomach. CHEST WALL AND OSSEOUS STRUCTURES: There are no suspicious osseous lesions. Multilevel degenerative changes are present. There is gynecomastia. IMPRESSION: 1. Bronchial wall thickening predominantly in the lower lobes, and left lower lobe tree-in-bud opacity. Correlate with bronchiolitis/small airway disease, likely infectious in etiology. No focal consolidation is however identified. 2. Bibasilar atelectasis, left more than right. Trace bibasilar pleural effusion. 3. Moderate coronary artery calcifications. 4. Ectatic thoracic aorta measuring up to 4 cm in diameter with moderate calcified and noncalcified atherosclerosis. 5. Postoperative changes consistent with left lower lobectomy. Correlate with surgical history. 6. 1.5 cm indeterminate nodular thickening of the left adrenal gland. ADDENDUM: Impression number 6 should read indeterminate nodular thickening of the right adrenal gland. The rest of the dictation remains unchanged. CT Chest with Contrast [Apr 24 2018 8:46AM] Assessment and Plan: Assessment: This is a 67 year old male with history significant for HTN, type II DM, COPD, left lung resection in (for unclear reasons), CYNTHIA, and meningioma s/p craniotomy with resection 2013 (at [facility]) who was recently admitted 02/10/18-04/04/18 for meningioma resection with 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 Admitted to medicine. In a shared visit with Dr. Jennings Suspected HCAP: Pulmonology consulted, Appreciate recs. Likely recurrent aspiration pneumonia, COPD without signs of exacerbation, acute hypoxic respiratory failure, dysphagia related to stroke. Chest CT 04/22 to assist with further plan for antibiotics --> Bronchial wall thickening predominantly in the lower lobes, and left lower lobe tree-in-bud opacity. Bronchiolitis/small airway disease, likely infectious in etiology. Pulmonary recommends to continue antibiotics x 2 weeks course. Microbiology lab at [facility] verified that sputum culture was not sent and Flu panel from [facility] was negative. One set of blood cultures was sent at [facility] 04/18 - per phone requested result on 04/22 --> aerobic vial positive for gram negative rods and 04/23 Breveundimonis diminuta - roman sensitive reported. Micro report faxed from [place] and copy placed in patient paper chart. Blood cultures from 04/18 [place] negative -final. ID consulted for above OSH blood culture result and assistance with further antibiotic plan. - discontinue linezolid and cefepime per recommendations - ceftriaxone 2 gm every 24 hours for total of 10 days, stop date 04/27 (switch to levofloxacin if discharged prior to ceftriaxone completion) - follow up 04/18 [facility] blood culture results- negative to date - send sputum culture if cough productive - continue EZ pap and vest therapy - wean supplemental 02 as tolerated (he is not normally on 02) - bronchial hygiene - palliative care consulted to assist with conversations on plan of care (previously saw him during prior hospitalization) Initial concern for atrial fibrillation: unclear if this was the case as ECG was of poor quality. Repeat ECG at noted Sinus rhythm with 1st degree AV block. No atrial fibrillation has been noted on telemetry. - continue to monitor telemetry COPD: - continue inhaled formoterol and budesonide - hold off with Advair as he is unable to comply with medication administration - continue PRN albuterol nebulizer treatments Recent midline related right brachial DVT: - prior midline was removed during last hospitalization; therapeutic anticoagulation was not initiated - per records at SNF, planning for repeat US on 05/04/18 Dysphagia s/p PEG tube placement: repeat MBS 04/21 with speech therapy recommending to continue NPO with PEG tube feedings. Frequent aggressive oral care. Repeat MBSS in 2- 3 months. - NPO status with PEG tube feedings - continue Diabetic Source tube feedings and free water flushes Electrolyte abnormality/Hyponatremia today Na 128 yesterday 130 K+ 5.2 - monitor daily RFP Grade D esophagitis: - continue PPI BID (plan was for him to be on this for 3 months following EGD on 02/21/18) - arranged for outpatient GI follow up on 06/06/18 HTN: BP controlled - will consider starting antihypertensive if indicated Type II DM: - continue Lantus 15 units daily (home dose 30 units daily); will consider increasing dose - continue Lispro sliding scale with hypoglycemia protocol CYNTHIA: - continue CPAP Prophylaxis: - enoxaparin/PPI Code status: - DNAR/DNI MISC. CT chest 04/21/18 reported incidental L adrenal mass thickening. Re-read requested by radiology and addendum made to report that thickening is on R adrenal as patient had on previous CT reports. Discharge disposition: was at SNF prior to going to [facility]. Nephbibiana Macias reporting that has mild cognitive deficits at baseline and has a low IQ. - PT recommending SNF - anel Macias would like him to return to prior SNF - anticipate discharge back to SNF in next 2-3 days if respiratory status stable Signature/Cosignature/Attestation: Provider/Team Contact Info-Pager Bhargav Gonzalez [facility] #[id number] Attending Only - Shared Visit with Advanced Practice ProviderThis is a shared visit. I have reviewed the Advanced Practice Providers encounter note, approve the Advanced Practice Providers documentation, and provide the following additional information from my personal encounter. Comments/ Additional Findings Patient see and examined with the HANDLE SANDER OPERATOR today. Agree with the above exam and assessment/ plan. Gen: NAD HEENT: facial droop CV: RRR Pulm: CTAB, on 2L NC GI: soft, non-tender Ext: no pitting edema 67 year old male with a past medical history of COPD, CYNTHIA, DM-II, meningioma s/p resection in 2013 with recurrence, and recent admission (from 02/10/18-04/04/18) for repeat resection with hospital course complicated by brainstem infarction, dysphagia (now s/p PEG), line associated DVT, and multiple HAP (MRSA and Pseudomonas) and recurrent mucous plugging, atelectasis requiring aggressive respiratory management that was discharged to SNF. On 04/18/18 patient was found at SNF to be tachycardic and hypoxic so transferred to OSH. At OSH ED that was concern for LLL PNA on CXR so he was started on broad spectrum abx and transferred to [facility] on 04/18/18 due to for further care. Hypoxic Respiratory Failure/ Concern for LLL PNA: - given history concern for recurrent aspiration even - CT chest with left tree in bud opacity most likely infectious - pulmonary consulted - aggressive respiratory therapy per pulm/ respiratory recs - blood cultures from OSH growing Brevundimonis dimunnnata/ all culture from [facility] - ID consulted - change abx to ceftriaxone 2g daily for 10 day course (stop date 04/27/13) - if leaves can prior to stop date can transition to levofloxacin 750mg daily Dysphagia: - speech consulted and MBS done -> continue strict NPO Meningioma 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: - continue valproic acid Hyponatremia: - continue to monitor COPD: - does not appear to be in exacerbation - continue inhalers CYNTHIA: - continue CPAP DM: - Lantus 15U daily (1/2 home dose) and ISS Diet: - tube feeds Ppx: - Lovenox subcutaneous Electronic Signatures: Porfirio Gonzalez ([employer] OPERATOR-GROUP MANAGER) (Signed 24-Apr-2018 22:13) Authored: Service, Subjective Data, Objective Data, Assessment and Plan, Signature/Cosignature/Attestation Kimberly Singer) (Signed 25-Apr-2018 08:33) Authored: Signature/Cosignature/Attestation Co-Signer: Assessment and Plan Last Updated: 25-Apr-2018 08:33 by Kimberly Singer) GLUCOSE-POCT Collected: 04/24/2018 Status: F Source: [facility] 12:20 PM [facility] REPOSITORY TYPE CODE TESTS RESULT OUT OF RANGE REFERENCE UNITS LAB GLUP(LOINC) 74 - 99 mg/dL High 182 GLUCOSE-POCT Performed By: #### GLUPO #### [facility] [address] [place] [address] CONSULT-INFECTIOUS DISEASE Observed: 04/24/2018 Status: COMPLETED Source: [facility] 8:19 AM [facility]ITALS REPOSITORY Service: Service: Infectious Disease Consult: Consult requested by (Attending Name): Dr Darren Chao Reason: Bacteremia with Breveundimonis dimunnata History of Present Illness: HPI: Mr. Siegel is a 67 year old man with a medical history relevant for several comorbidities including HTN, Type II DM, COPD, CYNTHIA, history of left lower lobe lobectomy back in 1980s with no clear etiology, meningioma S/P resection in 2013 and recent prolonged hospitalization at [facility] for another resection of another enlarging residual mass S/P repeat craniotomy and titanium mesh placement on 02/11/18, complicated by brainstem infarct, midline associated DVT, Hospital acquired pneumonia with MRSA for which he received Vancomycin initially but apparently leukocytosis persisted , so Vancomycin switched to Linezolid. He also had Pseudomonas aeruginosa recovered from sputum culture on 03/19/18 for which he was treated with Levofloxacin. He was ultimately discharged to SNF on 04/04/18. He presented on 04/18/18 after being transferred from [facility] for concern of new pneumonia. He initially presented there with the complaint of alteration in general status over the past few days along with increase in O2 requirements. No fever or chills reported. Upon presentation there VS were the following: T: 36.0, P: 109, BP: 141/104, 96% on 2 L nasal cannula. Labs were notable for WBC of 17k. CXR with increased interstitial markings of the left lung base. Started there on Vancomycin , Piperacillin- Tazobactam and Levofloxacin He was transferred then here for further evaluation and management. Antibiotics were switched here to Cefepime and Linezolid ( As previous regimen during his last hospitalization). Pulmonary team consulted recommending CT chest. CT Chest revealed the presence of bronchial wall thickening predominantly in the lower lobes and left lower lobe tree in bud opacities. ID Team is consulted given the positive culture results from [facility] which grew from blood cultures collected there on 04-18-18: Brevundiimonas diminuta. Blood cultures collected here on 04/18/18 remain negative to date. Patient has been stable hemodynamically since transfer and afebrile. Patient seen this morning. He is aphasic. Lying in bed comfortable. History was provided by chart review. #ROS: A 10 point review of system was conducted. Negative unless mentioned specifically in the history of present illness. #PMH: As above #Social History: ( Per chart review) -Smoking: Former smoker -Alcohol: None -Illicit Drug use: None #Allergies: -PNC #Family History: -Reviewed and non contributory to the history of present illness Allergies: Codeine Sulfate: Unknown penicillin: Unknown Intolerances: Aspir 81: GI Upset Objective: Objective Information: T PRBPSpO2 Value36.80278346/8297% Date/Time04/24 7: 7: 7: 7: 7:23 Range(36C - 36.9C ) (61 - 75 ) (16 - 18 ) (119 - 135 )/ (69 - 84 ) (91% - 100% ) As of 23-Apr-2018 16:00:00, patient is on 2 L/min of oxygen Highest temp of 36.9 C was recorded at 04/23 11:35 Physical Exam: Constitutional: General appearance and Mental status: Comfortable looking. Not in distress. Aphasic. Follow simple commands. HEENT: Anicteric sclera. Could not assess oral cavity as patient barely opens his mouth Heart: Regular S1S2. No audible murmur. Lungs: Bilateral decrease air entry with very poor inspiratory effort. Abdomen: Non distended abdomen, positive bowel sounds, soft, no abdominal tenderness. Extremities: Warm to touch. No lower limb edema Skin: Normal skin color and pigmentation. No visible rash. Musculoskeletal: No Joint swelling, tenderness, or redness. Mood affect: Cannot be assessed. Medications: Medications: 1. Artificial Tears (Preservative Free): 2 drop(s) Both Eyes Every 4 Hours ANTI-INFECTIVES: 1. Nystatin 100,000 Units/ gram Topical: 1 application(s) Topical 3 Times a Day 2. Cefepime IV Piggy Back: 2 gram(s) IntraVenous Piggyback Every 12 Hours 3. Linezolid 600 mg IVPB/ Premixed Soln 300 mL: 300 mL IntraVenous Piggyback Every 12 Hours CARDIOVASCULAR AGENTS: 1. Silodosin (NON - Formulary): 8 mg Oral Daily CENTRAL NERVOUS SYSTEM AGENTS: 1. Acetaminophen Oral Liquid: 650 mg Gastrostomy Tube Every 4 Hours PRN 2. Valproic Acid (Depakene) Oral Liquid: 500 mg PEG Tube <User Schedule> COAGULATION MODIFIERS: 1. Enoxaparin SubCutaneous: 40 mg SubCutaneous Every 24 Hours GASTROINTESTINAL AGENTS: 1. Docusate Oral Liquid: 100 mg Oral 2 Times a Day 2. Polyethylene Glycol: 17 gram(s) Oral Daily PRN 3. Simethicone Oral Liquid Drops: 80 mg Oral 4 Times a Day After Meals 4. Esomeprazole Oral Packet: 40 mg NasoGastric Tube 2 Times a Day METABOLIC AGENTS: 1. Insulin Glargine (Lantus) Injectable: 15 unit(s) SubCutaneous Every 24 Hours 2. Insulin Lispro Mild Corrective Scale: unit(s) SubCutaneous Every 4 Hours 3. Atorvastatin: 40 mg Oral Daily 4. Dextrose 50% in Water Injectable: 25 gram(s) IntraVenous Push Every 15 Minutes PRN 5. Glucagon Injectable: 1 mg IntraMuscular Every 15 Minutes PRN RESPIRATORY AGENTS: 1. Albuterol 2.5 mg/ 3 mL Nebulizer Soln: 3 mL Inhalation Every 6 Hours PRN 2. Formoterol 20 microgram/ 2 mL Neb Soln: 2 mL Inhalation Every 12 Hours 3. guaiFENesin Oral Liquid: 400 mg Oral Every 6 Hours 4. Budesonide 0.5 mg/ 2 mL Nebulizer Soln: 2 mL Inhalation Every 12 Hours TOPICAL AGENTS: 1. Saliva Substitute: 15 mL Oral 4 Times a Day Recent Lab Results: Results: I have reviewed these laboratory results: Renal Function Panel Trending View [id number] 07:55:00 22-Apr-2018 20:10:00 Glucose, [id number] H 134 H NA130 L 125 L K5.6 H 4.5 CL93 L 90 L Bicarbonate, Serum23 32 Anion Gap, Serum20 8 L BUN24 H 22 CREAT0.45 L 0.39 L GFR-Non >60 >60 GFR->60 >60 Calcium, Serum9.0 8.7 Phosphorus, Serum3.3 1.8 L ALB2.6 L 2.7 L Complete Blood Count Trending View [id number] 07:55:00 22-Apr-2018 13:10:00 White Blood Cell Count13.2 H 11.5 H Nucleated Erythrocyte Count0.0 0.0 Red Blood Cell Count4.05 L 3.95 L HGB11.9 L 11.6 L HCT40.3 L 36.8 L FBT593 93 MCHC29.5 L 31.5 L LIC550 206 RDW-CV14.6 H 14.3 Radiology Results: Results: Impression: 1. Bronchial wall thickening predominantly in the lower lobes, and left lower lobe tree-in-bud opacity. Correlate with bronchiolitis/small airway disease, likely infectious in etiology. No focal consolidation is however identified. 2. Bibasilar atelectasis, left more than right. Trace bibasilar pleural effusion. 3. Moderate coronary artery calcifications. 4. Ectatic thoracic aorta measuring up to 4 cm in diameter with moderate calcified and noncalcified atherosclerosis. 5. Postoperative changes consistent with left lower lobectomy. Correlate with surgical history. 6. 1.5 cm indeterminate nodular thickening of the left adrenal gland. CT Chest with Contrast [Apr 22 2018 11:19AM] Impression: 1. Fluoroscopic support provided to speech pathologist for a modified barium swallow findings as described above. Correlate with detailed report from speech pathologist for dietary recommendations. Xray Complete Pharyngeal + Speech Eval [Apr 21 2018 3:53PM] Assessment: Mr. Siegel is a 67 year old man with a medical history relevant for several comorbidities including HTN, Type II DM, COPD, CYNTHIA, history of left lower lobe lobectomy back in with no clear etiology, meningioma S/P resection in 2013 and recent prolonged hospitalization at [facility] for another resection of another enlarging residual mass S/P repeat craniotomy and titanium mesh placement on 02/11/18, complicated by brainstem infarct, midline associated DVT, Hospital acquired pneumonia with MRSA for which he received Vancomycin initially but apparently leukocytosis persisted , so Vancomycin switched to Linezolid. He also had Pseudomonas aeruginosa recovered from sputum culture on 03/19/18 for which he was treated with Levofloxacin. He was ultimately discharged to SNF on 04/04/18. 1. Recent prolonged hospitalization for craniotomy and titanium mesh placement on 02/11/18 Complicated by Brainstem infarct Hospital acquired pneumonia: MRSA and Pseudomonas aeruginosa 2. Concern for new pneumonia CT Chest: bronchial wall thickening predominantly in the lower lobes and left lower lobe tree in bud opacities 3. Blood cultures: Brevundimonas diminuta from 04/18/18 from [facility]. Impression: Patient is presenting after a recent prolonged hospital stay with alteration in his general status compared to his baseline and mild increase in 02 requirements. WBC was elevated on admission to 17k. Blood cultures grew Breveundimonis dimunita which is a gram negative pathogen. It is usually isolated form soils, water. Per literature review, it has been isolated previously from lungs of CF patients. We believe that patient might have a new pneumonia given the radiological findings on CT chest that was complicated by Breveundimonis dimunita bacteremia. Given the susceptibility profile, ( Sensitive to Cefazolin, cefepime, ceftriaxone, ceftazidime, ciprofloxacin , Levofloxacin, TMP-SMX and Imipenem we can narrow antibiotics accordingly. RECOMMENDATIONS: 1. Stop Linezolid and Cefepime 2. Start Ceftriaxone 2 g IV Q 24 hrs 3. Recommend to treat for a total course of 10 days as of 04/18/18--> Today is Day# 7) Stop date: 04/27/18 If patient is discharged prior to the stop date, can switch to oral therapy. Suggest Levofloxacin 750 mg daily to complete the course. ID Team signing off. Please call for questions or concerns. Lavern Purvis MD Infectious Disease Fellow Team A Pager: [phone] Signature/Cosignature/Attestation: Attending AttestationI saw and evaluated the patient. I personally obtained the gonzalez and critical portions of the history and physical exam or was physically present for gonzalez and critical portions performed by the resident/fellow. I reviewed the resident/fellows documentation and discussed the patient with the resident/fellow. I agree with the resident/fellows medical decision making as documented in the residents note. I personally evaluated the patient (as noted in the above attestation) on 24-Apr-2018 Electronic Signatures: Dyllan Jean Baptiste) (Signed 24-Apr-2018 21:09) Authored: History of Present Illness, Assessment/Recommendations, Signature/Cosignature/Attestation Co-Signer: History of Present Illness, Objective, Assessment/Recommendations, Signature/Cosignature/Attestation Lavern Purvis (Fellow)) (Signed 24-Apr-2018 16:06) Authored: Service, History of Present Illness, Allergies, Objective, Assessment/Recommendations, Signature/Cosignature/Attestation Last Updated: 24-Apr-2018 21:09 by Dyllan Jean Baptiste) GLUCOSE-POCT Collected: 04/24/2018 Status: F Source: [facility] 7:46 AM HOSPITALS REPOSITORY TYPE CODE TESTS RESULT OUT OF RANGE REFERENCE UNITS LAB GLUP(LOINC) 74 - 99 mg/dL High 161 GLUCOSE-POCT Performed By: #### GLUPO #### [facility] [address] [place] [address] CBC Collected: 04/24/2018 Status: F Source: [facility] 7:35 AM HOSPITALS REPOSITORY TYPE CODE TESTS RESULT OUT OF REFERENCE UNITS RANGE LAB WBCR(LOINC 4.4 - 11.3 x10E9/L ) WBC High 13.1 LAB NRBC(LOINC 0.0-0.0 /100 WBC ) NUCLEATED RBC 0.0 LAB RBCCT(LOIN 4.50 - 5.90 x10E12/L C) Low RBC 4.10 LAB HGB(LOINC) 13.5 - 17.5 g/dL Low HGB 12.0 LAB HCT(LOINC) 41.0 - 52.0 % Low HCT 38.0 LAB MCV(LOINC) 80 - 100 fL MCV 93 LAB MCHC2(LOIN 32.0 - 36.0 g/dL C) Low MCHC 31.6 LAB PLTCT(LOIN 150 - 450 x10E9/L C) PLT 216 LAB RDWCV(LOIN 11.5 - 14.5 % C) RDW-CV 14.4 Performed By: #### CBC #### [facility] [address] [place] [address] RENAL FUNCTION PANEL Collected: 04/24/2018 Status: F Source: [facility] 7:35 AM [facility]OSPITALS REPOSITORY TYPE CODE TESTS RESULT OUT OF REFERENCE UNITS RANGE LAB GLU(LOINC) 74 - 99 mg/dL GLUCOSE High 157 LAB SOD(LOINC) 136 - 145 mmol/L Low SODIUM 128 LAB K(LOINC) 3.5 - 5.3 mmol/L POTASSIUM 5.2 LAB CHLOR(LOIN 98 - 107 mmol/L C) Low CHLORIDE 92 LAB BIC(LOINC) 21 - 32 mmol/L BICARBONATE 28 LAB ANGAP(LOIN 10 - 20 mmol/L C) ANION GAP 13 LAB UREA(LOINC 6 - 23 mg/dL ) UREA High NITROGEN 24 LAB CREA(LOINC 0.50 - 1.30 mg/dL ) Low CREATININE 0.42 LAB GFRFN(LOIN >60 mL/min/1.7 C) 3m2 GFR-NON AM. >60 LAB GFRAA(LOIN >60 mL/min/1.7 C) 3m2 GFR- AM. >60 Result Comment: CALCULATIONS OF ESTIMATED GFR ARE PERFORMED USING THE MDRD STUDY EQUATION FOR THE IDMS-TRACEABLE CREATININE METHODS. CLIN CHEM 2007;53:766-72 LAB CA(LOINC) 8.6 - 10.6 mg/dL CALCIUM 8.9 LAB PHOS(LOINC) 2.5 - 4.9 mg/dL PHOSPHORUS 2.5 Result Comment: The performance characteristics of phosphorus testing in heparinized plasma have been validated by the individual laboratory site where testing is performed. Testing on heparinized plasma is not approved by the FDA; however, such approval is not necessary. LAB ALB(LOINC) 3.4 - 5.0 g/dL Low ALBUMIN 2.6 Performed By: #### RENAL #### [facility] [address] [place] [address] GLUCOSE-POCT Collected: 04/24/2018 Status: F Source: [facility] 4:12 AM [facility] REPOSITORY TYPE CODE TESTS RESULT OUT OF RANGE REFERENCE UNITS LAB GLUP(LOINC) 74 - 99 mg/dL High 158 GLUCOSE-POCT Performed By: #### GLUPO #### [facility] [address] [place] [address] GLUCOSE-POCT Collected: 04/24/2018 Status: F Source: [facility] 12:34 AM [facility] REPOSITORY TYPE CODE TESTS RESULT OUT OF RANGE REFERENCE UNITS LAB GLUP(LOINC) 74 - 99 mg/dL High 226 GLUCOSE-POCT Performed By: #### GLUPO #### [facility] [address] [place] [address] GLUCOSE-POCT Collected: 04/23/2018 Status: F Source: [facility] 5:13 PM [facility] REPOSITORY TYPE CODE TESTS RESULT OUT OF RANGE REFERENCE UNITS LAB GLUP(LOINC) 74 - 99 mg/dL High 124 GLUCOSE-POCT Performed By: #### GLUPO #### [facility] [address] [place] [address] GLUCOSE-POCT Collected: 04/23/2018 Status: F Source: [facility] 1:10 PM [facility] REPOSITORY TYPE CODE TESTS RESULT OUT OF RANGE REFERENCE UNITS LAB GLUP(LOINC) 74 - 99 mg/dL High 182 GLUCOSE-POCT Performed By: #### GLUPO #### [facility] [address] [place] [address] DAILY PROGRESS Observed: 04/23/2018 Status: COMPLETED Source: [facility] NOTE-MEDICINE 10:52 AM HOSPITALS REPOSITORY Service: Medicine Subjective Data: DIPESH BERMUDEZ is a 67 year old Male who is Hospital Day # 6. Objective Data: Objective Information: T PRBPSpO2 [id number]/7894% Date/Time04/23 11: 11: 11: 11: 11:35 Range(36.8C - 37.3C ) (66 - 81 ) (17 - 18 ) (119 - 144 )/ (78 - 95 ) (94% - 99% ) Highest temp of 37.3 C was recorded at 04/23 6:53 Physical Exam: Constitutional: lying in bed, smiling, in NAD Eyes: sclera clear, no injection or drainage ENMT: MMM, no lesions noted Head/Neck: Craniectomy incision well-approximated Respiratory/Thorax: CTAB, breathing even, unlabored, chest excursion even and symmetric on 2L N/C Cardiovascular: RRR, normal S1, S2, no m,r,g Gastrointestinal: +BS, abd. soft, rounded NT, Peg intact with no drainage at site Extremities: PPPx4, no edema Neurological: A&O to person and year, occasionally following simple command Psychological: calm with limited verbalization Skin: Warm, dry, and intact Medication: Medications: Continuous Medications No continuous medications are active Scheduled Medications 1. Artificial Tears (Preservative Free): 2 drop(s) Both Eyes Every 4 Hours 2. Atorvastatin: 40 mg Oral Daily 3. Budesonide 0.5 mg/ 2 mL Nebulizer Soln: 2 mL Inhalation Every 12 Hours 4. Cefepime IV Piggy Back: 2 gram(s) IntraVenous Piggyback Every 12 Hours 5. Docusate Oral Liquid: 100 mg Oral 2 Times a Day 6. Enoxaparin SubCutaneous: 40 mg SubCutaneous Every 24 Hours 7. Esomeprazole Oral Packet: 40 mg NasoGastric Tube 2 Times a Day 8. Formoterol 20 microgram/ 2 mL Neb Soln: 2 mL Inhalation Every 12 Hours 9. guaiFENesin Oral Liquid: 400 mg Oral Every 6 Hours 10. Insulin Glargine (Lantus) Injectable: 15 unit(s) SubCutaneous Every 24 Hours 11. Insulin Lispro Mild Corrective Scale: unit(s) SubCutaneous Every 4 Hours 12. Linezolid 600 mg IVPB/ Premixed Soln 300 mL: 300 mL IntraVenous Piggyback Every 12 Hours 13. Nystatin 100,000 Units/ gram Topical: 1 application(s) Topical 3 Times a Day 14. Saliva Substitute: 15 mL Oral 4 Times a Day 15. Silodosin (NON - Formulary): 8 mg Oral Daily 16. Simethicone Oral Liquid Drops: 80 mg Oral 4 Times a Day After Meals 17. Valproic Acid (Depakene) Oral Liquid: 500 mg PEG Tube <User Schedule> PRN Medications 1. Acetaminophen Oral Liquid: 650 mg Gastrostomy Tube Every 4 Hours 2. Albuterol 2.5 mg/ 3 mL Nebulizer Soln: 3 mL Inhalation Every 6 Hours 3. Dextrose 50% in Water Injectable: 25 gram(s) IntraVenous Push Every 15 Minutes 4. Glucagon Injectable: 1 mg IntraMuscular Every 15 Minutes 5. Polyethylene Glycol: 17 gram(s) Oral Daily Recent Lab Results: Results: I have reviewed these laboratory results: Renal Function Panel 23-Apr-2018 07:55:00 ResultValue Glucose, Serum 144 H NA 130 L K 5.6 H CL 93 L Bicarbonate, Serum 23 Anion Gap, Serum 20 BUN 24 H CREAT 0.45 L GFR-Non >60 GFR- >60 Calcium, Serum 9.0 Phosphorus, Serum 3.3 ALB 2.6 L Complete Blood Count 23-Apr-2018 07:55:00 ResultValue White Blood Cell Count 13.2 H Nucleated Erythrocyte Count 0.0 Red Blood Cell Count 4.05 L HGB 11.9 L HCT 40.3 L MCV 100 MCHC 29.5 L PLT 197 RDW-CV 14.6 H Glucose_POCT 23-Apr-2018 06:26:00 ResultValue Glucose-POCT 179 H Radiology Results: Results: CT Chest with Contrast [Apr 22 2018 11:19AM] Impression: 1. Bronchial wall thickening predominantly in the lower lobes, and left lower lobe tree-in-bud opacity. Correlate with bronchiolitis/small airway disease, likely infectious in etiology. No focal consolidation is however identified. 2. Bibasilar atelectasis, left more than right. Trace bibasilar pleural effusion. 3. Moderate coronary artery calcifications. 4. Ectatic thoracic aorta measuring up to 4 cm in diameter with moderate calcified and noncalcified atherosclerosis. 5. Postoperative changes consistent with left lower lobectomy. Correlate with surgical history. 6. 1.5 cm indeterminate nodular thickening of the left adrenal gland. Assessment and Plan: Assessment: This is a 67 year old male with history significant for HTN, type II DM, COPD, left lung resection in (for unclear reasons), CYNTHIA, and meningioma s/p craniotomy with resection 2013 (at [facility]) who was recently admitted 02/10/18-04/04/18 for meningioma resection with 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 Admitted to medicine. In a shared visit with Dr. Jennings Suspected HCAP: Microbiology lab at [facility] verified that sputum culture was not sent. Flu panel from [facility] was negative. One set of blood cultures was sent at [facility] 04/18 - per phone requested result on 04/22 - aerobic vial positive for gram negative rods, sensitivities not resulted. Blood cultures from [place] negative to date (day #3). Pulmonology consulted, Appreciate recs. Likely recurrent aspiration pneumonia, COPD without signs of exacerbation, acute hypoxic respiratory failure, dysphagia related to stroke. Chest CT 04/22 to assist with further plan for antibiotics - Bronchial wall thickening predominantly in the lower lobes, and left lower lobe tree-in-bud opacity. Bronchiolitis/small airway disease, likely infectious in etiology. Pulmonary recommends to continue antibiotics x 2 weeks course - continue linezolid and cefepime per recommendations - Results from [facility] 04/18 blood culture (1 set) aerobic vial grew Breveundimonis diminuta - roman sensitive. Report faxed and copy placed in patient paper chart. - follow up 04/18 [facility] blood culture results- negative to date - ID consult for OSH blood culture result and assistance with further antibiotic plan - send sputum culture - continue EZ pap and vest therapy - wean supplemental 02 as tolerated (he is not normally on 02) - bronchial hygiene - palliative care consulted to assist with conversations on plan of care (previously saw him during prior hospitalization) Initial concern for atrial fibrillation: unclear if this was the case as ECG was of poor quality. Repeat ECG at noted Sinus rhythm with 1st degree AV block. No atrial fibrillation has been noted on telemetry. - continue to monitor telemetry COPD: - continue inhaled formoterol and budesonide - hold off with Advair as he is unable to comply with medication administration - continue PRN albuterol nebulizer treatments Recent midline related right brachial DVT: - prior midline was removed during last hospitalization; therapeutic anticoagulation was not initiated - per records at SNF, planning for repeat US on 05/04/18 Dysphagia s/p PEG tube placement: repeat MBS 04/21 with speech therapy recommending to continue NPO with PEG tube feedings. Frequent aggressive oral care. Repeat MBSS in 2- 3 months. - NPO status with PEG tube feedings - continue Diabetic Source tube feedings and free water flushes Electrolyte abnormality/Hyponatremia today Na 130 up from 125 yesterday K+ 5.6 today yesterday 4.5 and 4.7 - monitor daily RFP Grade D esophagitis: - continue PPI BID (plan was for him to be on this for 3 months following EGD on 02/21/18) - arranged for outpatient GI follow up on 06/06/18 HTN: BP controlled - will consider starting antihypertensive if indicated Type II DM: - continue Lantus 15 units daily (home dose 30 units daily); will consider increasing dose - continue Lispro sliding scale with hypoglycemia protocol CYNTHIA: - continue CPAP Prophylaxis: - enoxaparin/PPI Code status: - DNAR/DNI Discharge disposition: was at SNF prior to going to [facility]. Nephew Donta reporting that has mild cognitive deficits at baseline and has a low IQ. - PT recommending SNF - nephew Donta would like him to return to prior SNF - anticipate discharge back to SNF in next 2-3 days if respiratory status stable Nutrition Diagnosis: Nutrition Diagnosis Agree with dietitians assessment and diagnoses as stated. Moderate protein calorie malnutrition related to recent complicated post-op course as evidence by mild muscle wasting to temples, shoulders and clavicles, mild fat loss to orbital pads and biceps, and significant weight loss of 15% x ~ 2 months. Signature/Cosignature/Attestation: Provider/Team Contact Info-Pager Bhargav Gonzalez CHRISTIAN #[id number] Attending Only - Shared Visit with Advanced Practice ProviderThis is a shared visit. I have reviewed the Advanced Practice Providers encounter note, approve the Advanced Practice Providers documentation, and provide the following additional information from my personal encounter. Comments/ Additional Findings Patient see and examined with the HANDLE SANDER OPERATOR today. Agree with the above exam and assessment/ plan. No complaints today. Gen: NAD HEENT: facial droop CV: RRR Pulm: CTAB, on 2L NC GI: soft, non-tender Ext: no pitting edema 67 year old male with a past medical history of COPD, CYNTHIA, DM-II, meningioma s/p resection in 2013 with recurrence, and recent admission (from 02/10/18-04/04/18) for repeat resection with hospital course complicated by brainstem infarction, dysphagia (now s/p PEG), line associated DVT, and multiple HAP (MRSA and Pseudomonas) and recurrent mucous plugging, atelectasis requiring aggressive respiratory management that was discharged to SNF. On 04/18/18 patient was found at SNF to be tachycardic and hypoxic so transferred to OSH. At OSH ED that was concern for LLL PNA on CXR so he was started on broad spectrum abx and transferred to [facility] on 04/18/18 due to for further care. Hypoxic Respiratory Failure/ Concern for LLL PNA: - given history concern for recurrent aspiration even - CT chest with left tree in bud opacity most likely infectious - continue on linezolid and cefapime (day #6 of abx) - pulmonary consulted - aggressive respiratory therapy per pulm/ respiratory recs - cultures from OSH growing Brevundimonis dimunnnata - ID consult torrow - blood culture from admission to [facility] - >NGTD - wean oxygen as tolerated Dysphagia: - speech consulted and MBS done -> continue strict NPO Meningioma 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: - continue valproic acid Hyponatremia: - stable COPD: - does not appear to be in exacerbation - continue inhalers CYNTHIA: - continue CPAP DM: - Lantus 15U daily (1/2 home dose) and ISS Diet: - tube feeds Ppx: - Lovenox subcutaneous Electronic Signatures: Porfirio Gonzalez (V[employer]EX OPERATOR-GROUP MANAGER) (Signed 23-Apr-2018 17:35) Authored: Service, Subjective Data, Objective Data, Assessment and Plan, Signature/Cosignature/Attestation Kimberly Singer) (Signed 24-Apr-2018 09:12) Authored: Signature/Cosignature/Attestation Co-Signer: Objective Data, Assessment and Plan Last Updated: 24-Apr-2018 09:12 by Kimberly Singer) DAILY PROGRESS Observed: 04/23/2018 Status: COMPLETED Source: [facility] NOTE-PULMONOLOGY 10:04 AM [facility]OSPITALS REPOSITORY Service: Pulmonology Subjective Data: DIPESH BERMUDEZ is a 67 year old Male who is Hospital Day # 6. Overnight Events: Patient had an uneventful night. Objective Data: Objective Information: ---- Intake and Output ----- Mn/Dy/Year TimeIntakeOutputNet Apr 23, 2018 6:00 [id number] Apr 22, 2018 10:00 [id number] Apr 22, 2018 2:00 [id number] The Intake and Output Totals for the last 24 hours are: IntakeOutputNet 2570nullnull T PRBPSpO2 [id number]/8397% Date/Time04/23 6: 6: 6: 6: 6:53 Range(36.8C - 37.3C ) (66 - 81 ) (17 - 18 ) (135 - 144 )/ (78 - 95 ) (94% - 99% ) Highest temp of 37.3 C was recorded at 04/23 6:53 Physical Exam: Constitutional: Well developed, awake/alert/oriented x3, no distress, alert and cooperative Eyes: PERRL, EOMI, clear sclera ENMT: mucous membranes moist, no apparent injury, no lesions seen Head/Neck: Neck supple, no apparent injury, thyroid without mass or tenderness, No JVD, trachea midline, no bruits Respiratory/Thorax: Idalia. air entry with idalia. basal crypts+ (L>R) Cardiovascular: Regular, rate and rhythm, no murmurs, 2+ equal pulses of the extremities, normal S 1and S 2 Gastrointestinal: Nondistended, soft, non-tender, no rebound tenderness or guarding, no masses palpable, no organomegaly, +BS, no bruits Musculoskeletal: ROM intact, no joint swelling, normal strength Extremities: normal extremities, no cyanosis edema, contusions or wounds, no clubbing Neurological: awake, alert cooperative, facial droop, right sided hemiparesis Psychological: Appropriate mood and behavior Skin: Warm and dry, no lesions, no rashes Medication: Medications: Continuous Medications No continuous medications are active Scheduled Medications 1. Artificial Tears (Preservative Free): 2 drop(s) Both Eyes Every 4 Hours 2. Atorvastatin: 40 mg Oral Daily 3. Budesonide 0.5 mg/ 2 mL Nebulizer Soln: 2 mL Inhalation Every 12 Hours 4. Cefepime IV Piggy Back: 2 gram(s) IntraVenous Piggyback Every 12 Hours 5. Docusate Oral Liquid: 100 mg Oral 2 Times a Day 6. Enoxaparin SubCutaneous: 40 mg SubCutaneous Every 24 Hours 7. Esomeprazole Oral Packet: 40 mg NasoGastric Tube 2 Times a Day 8. Formoterol 20 microgram/ 2 mL Neb Soln: 2 mL Inhalation Every 12 Hours 9. guaiFENesin Oral Liquid: 400 mg Oral Every 6 Hours 10. Insulin Glargine (Lantus) Injectable: 15 unit(s) SubCutaneous Every 24 Hours 11. Insulin Lispro Mild Corrective Scale: unit(s) SubCutaneous Every 4 Hours 12. Linezolid 600 mg IVPB/ Premixed Soln 300 mL: 300 mL IntraVenous Piggyback Every 12 Hours 13. Nystatin 100,000 Units/ gram Topical: 1 application(s) Topical 3 Times a Day 14. Saliva Substitute: 15 mL Oral 4 Times a Day 15. Silodosin (NON - Formulary): 8 mg Oral Daily 16. Simethicone Oral Liquid Drops: 80 mg Oral 4 Times a Day After Meals 17. Valproic Acid (Depakene) Oral Liquid: 500 mg PEG Tube <User Schedule> PRN Medications 1. Acetaminophen Oral Liquid: 650 mg Gastrostomy Tube Every 4 Hours 2. Albuterol 2.5 mg/ 3 mL Nebulizer Soln: 3 mL Inhalation Every 6 Hours 3. Dextrose 50% in Water Injectable: 25 gram(s) IntraVenous Push Every 15 Minutes 4. Glucagon Injectable: 1 mg IntraMuscular Every 15 Minutes 5. Polyethylene Glycol: 17 gram(s) Oral Daily Recent Lab Results: Results: I have reviewed these laboratory results: Complete Blood Count 23-Apr-2018 07:55:00 ResultValue White Blood Cell Count 13.2 H Nucleated Erythrocyte Count 0.0 Red Blood Cell Count 4.05 L HGB 11.9 L HCT 40.3 L MCV 100 MCHC 29.5 L PLT 197 RDW-CV 14.6 H Glucose_POCT 23-Apr-2018 06:26:00 ResultValue Glucose-POCT 179 H Renal Function Panel 22-Apr-2018 20:10:00 ResultValue Glucose, Serum 134 H NA 125 L K 4.5 CL 90 L Bicarbonate, Serum 32 Anion Gap, Serum 8 L BUN 22 CREAT 0.39 L GFR-Non >60 GFR- >60 Calcium, Serum 8.7 Phosphorus, Serum 1.8 L ALB 2.7 L Radiology Results: Results: Impression: 1. Bronchial wall thickening predominantly in the lower lobes, and left lower lobe tree-in-bud opacity. Correlate with bronchiolitis/small airway disease, likely infectious in etiology. No focal consolidation is however identified. 2. Bibasilar atelectasis, left more than right. Trace bibasilar pleural effusion. 3. Moderate coronary artery calcifications. 4. Ectatic thoracic aorta measuring up to 4 cm in diameter with moderate calcified and noncalcified atherosclerosis. 5. Postoperative changes consistent with left lower lobectomy. Correlate with surgical history. 6. 1.5 cm indeterminate nodular thickening of the left adrenal gland. CT Chest with Contrast [Apr 22 2018 11:19AM] Assessment and Plan: Assessment: 67 year old man with PMHx of COPD, meningioma s/p resection twice with post-hospitalization course complicated by stroke, dysphagia, PEG placement, recurrent aspiration pneumonia presenting with acute hypoxic respiratory failure which may be related to a recent hospital-acquired pneumonia / aspiration pneumonia. CT chest showed: Bronchial wall thickening predominantly in the lower lobes, and left lower lobe tree-in-bud opacity. Bronchiolitis/small airway disease, likely infectious in etiology. IMPRESSIONS: 1. Recurrent Pneumonia- most likely due to recurrent aspiration. 2. COPD- (no sign of exacerbation) 3. Acute hypoxic respiratory failure- on low flow O2 4. Dysphagia- related to stroke RECOMMENDATIONS: - Continue antibiotics course for two weeks - Continue EzPAP and Vest therapy q6h - Slow weaning of O2 to keep saturation 90-92% - Aspiration precaution and need follow up speech therapy recommendation. - Continue Albuterol inh PRN Please page at #[phone] for any further questions. Nutrition Diagnosis: Nutrition Diagnosis Agree with dietitians assessment and diagnoses as stated. Moderate protein calorie malnutrition related to recent complicated post-op course as evidence by mild muscle wasting to temples, shoulders and clavicles, mild fat loss to orbital pads and biceps, and significant weight loss of 15% x ~ 2 months. Signature/Cosignature/Attestation: Attending AttestationI reviewed the resident/fellows documentation and discussed the patient with the resident/fellow. I agree with the resident/fellows medical decision making as documented in the residents note. Electronic Signatures: Porfirio Gonzalez ([facility] OPERATOR[facility]) (Signed 23-Apr-2018 12:11) Authored: Subjective Data, Assessment and Plan Dameno Salazar (Fellow)) (Entered 23-Apr-2018 10:17) Entered: Service, Subjective Data, Objective Data, Assessment and Plan, Signature/Cosignature/Attestation Digna Up) (Signed 23-Apr-2018 20:06) Entered: Signature/Cosignature/Attestation Authored: Service, Subjective Data, Objective Data, Assessment and Plan, Signature/Cosignature/Attestation Last Updated: 23-Apr-2018 20:06 by Digna Up) CBC Collected: 04/23/2018 Status: F Source: [facility] 7:55 AM HOSPITALS REPOSITORY TYPE CODE TESTS RESULT OUT OF REFERENCE UNITS RANGE LAB WBCR(LOINC 4.4 - 11.3 x10E9/L ) WBC High 13.2 LAB NRBC(LOINC 0.0-0.0 /100 WBC ) NUCLEATED RBC 0.0 LAB RBCCT(LOIN 4.50 - 5.90 x10E12/L C) Low RBC 4.05 LAB HGB(LOINC) 13.5 - 17.5 g/dL Low HGB 11.9 LAB HCT(LOINC) 41.0 - 52.0 % Low HCT 40.3 LAB MCV(LOINC) 80 - 100 fL MCV 100 LAB MCHC2(LOIN 32.0 - 36.0 g/dL C) Low MCHC 29.5 LAB PLTCT(LOIN 150 - 450 x10E9/L C) PLT 197 LAB RDWCV(LOIN 11.5 - 14.5 % C) High RDW-CV 14.6 Performed By: #### CBC #### [facility] [id number] [place] [address] RENAL FUNCTION PANEL Collected: 04/23/2018 Status: F Source: [facility] 7:55 AM HOSPITALS REPOSITORY TYPE CODE TESTS RESULT OUT OF REFERENCE UNITS RANGE LAB GLU(LOINC) 74 - 99 mg/dL High GLUCOSE 144 LAB SOD(LOINC) 136 - 145 mmol/L Low SODIUM 130 LAB K(LOINC) 3.5 - 5.3 mmol/L High POTASSIUM 5.6 Result Comment: MILD HEMOLYSIS DETECTED. The result may be falsely elevated due to hemolysis or other interferents. Clinical correlation is recommended. Repeat testing may be considered. LAB CHLOR(LOINC) 98 - 107 mmol/L CHLORIDE Low 93 LAB BIC(LOINC) 21 - 32 mmol/L BICARBONATE 23 LAB ANGAP(LOINC) 10 - 20 mmol/L ANION GAP 20 LAB UREA(LOINC) 6 - 23 mg/dL UREA High NITROGEN 24 LAB CREA(LOINC) 0.50 - mg/dL 1.30 CREATININE Low 0.45 LAB GFRFN(LOINC) >60 mL/min/1.73m 2 GFR-NON AM. >60 LAB GFRAA(LOINC) >60 mL/min/1.73m 2 GFR- AM. >60 Result Comment: CALCULATIONS OF ESTIMATED GFR ARE PERFORMED USING THE MDRD STUDY EQUATION FOR THE IDMS-TRACEABLE CREATININE METHODS. CLIN CHEM 2007;53:766-72 LAB CA(LOINC) 8.6 - 10.6 mg/dL CALCIUM 9.0 LAB PHOS(LOINC) 2.5 - 4.9 mg/dL PHOSPHORUS 3.3 Result Comment: The performance characteristics of phosphorus testing in heparinized plasma have been validated by the individual laboratory site where testing is performed. Testing on heparinized plasma is not approved by the FDA; however, such approval is not necessary. LAB ALB(LOINC) 3.4 - 5.0 g/dL Low ALBUMIN 2.6 Performed By: #### RENAL #### [facility] [address] [place] [address] GLUCOSE-POCT Collected: 04/23/2018 Status: F Source: [facility] 6:26 AM HOSPITALS REPOSITORY TYPE CODE TESTS RESULT OUT OF RANGE REFERENCE UNITS LAB GLUP(LOINC) 74 - 99 mg/dL High 179 GLUCOSE-POCT Performed By: #### GLUPO #### [facility] [address] [place] [address] GLUCOSE-POCT Collected: 04/22/2018 Status: F Source: [facility] 11:57 PM HOSPITALS REPOSITORY TYPE CODE TESTS RESULT OUT OF RANGE REFERENCE UNITS LAB GLUP(LOINC) 74 - 99 mg/dL High 208 GLUCOSE-POCT Performed By: #### GLUPO #### [facility] [address] [place] [address] CLINICAL EVENT Observed: 04/22/2018 Status: UNK Source: [facility] NOTE-HYPONATREMIA / 10:56 PM HOSPITALS REPOSITORY HYPOPHOSPHATEMIA Event: Topic: hyponatremia / hypophosphatemia Details: renal panel drawn with Na+=125 (this am was 125), phosphorus of 1.8. will order 21mmol of sodium phosphorus. repeat renal panel in am, monitor sodium closely. Provider / Team Contact Information: Provider/Team Contact Info-Pager Number: [phone] Electronic Signatures: Lavon Pedro ([employer] OPERATOR-GROUP MANAGER) (Signed 22-Apr-2018 23:01) Authored: Event, Provider / Team Contact Information Last Updated: 22-Apr-2018 23:01 by Lavon Pedro ([employer] OPERATOR-GROUP MANAGER) RENAL FUNCTION PANEL Collected: 04/22/2018 Status: F Source: [facility] 8:10 PM HOSPITALS REPOSITORY TYPE CODE TESTS RESULT OUT OF REFERENCE UNITS RANGE LAB GLU(LOINC) 74 - 99 mg/dL GLUCOSE High 134 LAB SOD(LOINC) 136 - 145 mmol/L Low SODIUM 125 LAB K(LOINC) 3.5 - 5.3 mmol/L POTASSIUM 4.5 LAB CHLOR(LOIN 98 - 107 mmol/L C) Low CHLORIDE 90 LAB BIC(LOINC) 21 - 32 mmol/L BICARBONATE 32 LAB ANGAP(LOIN 10 - 20 mmol/L C) Low ANION GAP 8 LAB UREA(LOINC 6 - 23 mg/dL ) UREA NITROGEN 22 LAB CREA(LOINC 0.50 - 1.30 mg/dL ) Low CREATININE 0.39 LAB GFRFN(LOIN >60 mL/min/1.7 C) 3m2 GFR-NON AM. >60 LAB GFRAA(LOIN >60 mL/min/1.7 C) 3m2 GFR- AM. >60 Result Comment: CALCULATIONS OF ESTIMATED GFR ARE PERFORMED USING THE MDRD STUDY EQUATION FOR THE IDMS-TRACEABLE CREATININE METHODS. CLIN CHEM 2007;53:766-72 LAB CA(LOINC) 8.6 - 10.6 mg/dL CALCIUM 8.7 LAB PHOS(LOINC) 2.5 - 4.9 mg/dL PHOSPHORUS Low 1.8 Result Comment: The performance characteristics of phosphorus testing in heparinized plasma have been validated by the individual laboratory site where testing is performed. Testing on heparinized plasma is not approved by the FDA; however, such approval is not necessary. LAB ALB(LOINC) 3.4 - 5.0 g/dL Low ALBUMIN 2.7 Performed By: #### RENAL #### [facility] [address] [place] [address] GLUCOSE-POCT Collected: 04/22/2018 Status: F Source: [facility] 7:55 PM HOSPITALS REPOSITORY TYPE CODE TESTS RESULT OUT OF RANGE REFERENCE UNITS LAB GLUP(LOINC) 74 - 99 mg/dL High 164 GLUCOSE-POCT Performed By: #### GLUPO #### [facility] [address] [place] [address] GLUCOSE-POCT Collected: 04/22/2018 Status: F Source: [facility] 5:24 PM HOSPITALS REPOSITORY TYPE CODE TESTS RESULT OUT OF RANGE REFERENCE UNITS LAB GLUP(LOINC) 74 - 99 mg/dL High 160 GLUCOSE-POCT Performed By: #### GLUPO #### [facility] [address] [place] [address] DAILY PROGRESS Observed: 04/22/2018 Status: COMPLETED Source: [facility]ERSITY NOTE-MEDICINE 2:44 PM HOSPITALS REPOSITORY Service: Medicine Subjective Data: DIPESH BERMUDEZ is a 67 year old Male who is Hospital Day # 5. Overnight Events: Patient had an uneventful night. Objective Data: Objective Information: Moshe PRBPSpO2 [id number]% Date/Time04/22 11: 11: 11: 11: 11:20 Range(36.4C - 37.2C ) (56 - 75 ) (18 - 18 ) (126 - 153 )/ (73 - 86 ) (94% - 99% ) As of 21-Apr-2018 21:05:00, patient is on 2 L/min of oxygen via nasal cannula. Highest temp of 37.2 C was recorded at 04/22 11:20 Pain with Activity reported at 04/22 8:40: 0 Pain at Rest reported at 04/22 8:40: 0 Physical Exam: Constitutional: Pt. lying in bed, pleasant, nodding, in NAD Eyes: sclera clear ENMT: MMM, no lesions noted Head/Neck: Craniectomy incision well-approximated Respiratory/Thorax: CTAB, breathing even, unlabored, chest excursion even and symmetric on 2L N/C Cardiovascular: RRR, normal S1, S2, no m,r,g Gastrointestinal: +BS, abd. soft, rounded NT, Peg intact with no drainage to site. Extremities: PPPx4, no edema noted Neurological: A&Ox1-2. difficult to assess, nonverbal, occasionally following simple command Psychological: calm, nonverbal Skin: Warm, dry, and intact Medication: Medications: Continuous Medications No continuous medications are active Scheduled Medications 1. Atorvastatin: 40 mg Oral Daily 2. Budesonide 0.5 mg/ 2 mL Nebulizer Soln: 2 mL Inhalation Every 12 Hours 3. Cefepime IV Piggy Back: 2 gram(s) IntraVenous Piggyback Every 12 Hours 4. Docusate Oral Liquid: 100 mg Oral 2 Times a Day 5. Enoxaparin SubCutaneous: 40 mg SubCutaneous Every 24 Hours 6. Esomeprazole Oral Packet: 40 mg NasoGastric Tube 2 Times a Day 7. Formoterol 20 microgram/ 2 mL Neb Soln: 2 mL Inhalation Every 12 Hours 8. guaiFENesin Oral Liquid: 400 mg Oral Every 6 Hours 9. Insulin Glargine (Lantus) Injectable: 15 unit(s) SubCutaneous Every 24 Hours 10. Insulin Lispro Mild Corrective Scale: unit(s) SubCutaneous Every 4 Hours 11. Linezolid 600 mg IVPB/ Premixed Soln 300 mL: 300 mL IntraVenous Piggyback Every 12 Hours 12. Saliva Substitute: 15 mL Oral 4 Times a Day 13. Silodosin (NON - Formulary): 8 mg Oral Daily 14. Simethicone Oral Liquid Drops: 80 mg Oral 4 Times a Day After Meals 15. Valproic Acid (Depakene) Oral Liquid: 500 mg PEG Tube <User Schedule> PRN Medications 1. Acetaminophen Oral Liquid: 650 mg Gastrostomy Tube Every 4 Hours 2. Albuterol 2.5 mg/ 3 mL Nebulizer Soln: 3 mL Inhalation Every 6 Hours 3. Dextrose 50% in Water Injectable: 25 gram(s) IntraVenous Push Every 15 Minutes 4. Glucagon Injectable: 1 mg IntraMuscular Every 15 Minutes 5. Polyethylene Glycol: 17 gram(s) Oral Daily Recent Lab Results: Results: I have reviewed these laboratory results: Glucose_POCT Trending View [id number] 17:24:00 22-Apr-2018 13:19:00 22-Apr-2018 09:56:00 22-Apr-2018 06:30:00 22-Apr-2018 02:08:00 [id number] H 169 H 146 H 134 H 176 H Complete Blood Count 22-Apr-2018 13:10:00 ResultValue White Blood Cell Count 11.5 H Nucleated Erythrocyte Count 0.0 Red Blood Cell Count 3.95 L HGB 11.6 L HCT 36.8 L MCV 93 MCHC 31.5 L PLT 206 RDW-CV 14.3 Renal Function Panel 22-Apr-2018 13:10:00 ResultValue Glucose, Serum 170 H NA 125 L K 4.7 CL 90 L Bicarbonate, Serum 29 Anion Gap, Serum 11 BUN 21 CREAT 0.39 L GFR-Non >60 GFR- >60 Calcium, Serum 8.9 Phosphorus, Serum 1.9 L ALB 2.7 L Radiology Results: Results: CT Chest with Contrast [Apr 22 2018 11:19AM] Impression: 1. Bronchial wall thickening predominantly in the lower lobes, and left lower lobe tree-in-bud opacity. Correlate with bronchiolitis/small airway disease, likely infectious in etiology. No focal consolidation is however identified. 2. Bibasilar atelectasis, left more than right. Trace bibasilar pleural effusion. 3. Moderate coronary artery calcifications. 4. Ectatic thoracic aorta measuring up to 4 cm in diameter with moderate calcified and noncalcified atherosclerosis. 5. Postoperative changes consistent with left lower lobectomy. Correlate with surgical history. 6. 1.5 cm indeterminate nodular thickening of the left adrenal gland. Assessment and Plan: Assessment: This is a 67 year old male with history significant for HTN, type II DM, COPD, left lung resection in (for unclear reasons), CYNTHIA, and meningioma s/p craniotomy with resection 2013 (at [facility]) who was recently admitted 02/10/18-04/04/18 for meningioma resection with 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 Admitted to medicine. In a shared visit with Dr. Jennings Suspected HCAP: Microbiology lab at [facility] verified that sputum culture was not sent. Flu panel from [facility] was negative. One set of blood cultures was sent at [facility] 04/18 - per phone requested result on 04/22 - aerobic vial positive for gram negative rods, sensitivities not resulted. Blood cultures from 04/18 [place] negative to date (day #3). - consulted pulmonology. Appreciate recs - obtain chest CT to assist with further plan for antibiotics - per pulmonary - consulted palliative care to assist with conversations on plan of care (previously saw him during prior hospitalization) - continue linezolid and cefepime per recommendations - follow up 04/18 blood culture sensitivity results from [facility] - follow up 04/18 [facility] blood culture results- negative to date - send sputum culture - continue EZ pap and vest therapy - wean supplemental 02 as tolerated (he is not normally on 02) - bronchial hygiene Initial concern for atrial fibrillation: unclear if this was the case as ECG was of poor quality. Repeat ECG at noted Sinus rhythm with 1st degree AV block. No atrial fibrillation has been noted on telemetry. - continue to monitor telemetry COPD: - continue inhaled formoterol and budesonide - hold off with Advair as he can't follow directions to receive medication - continue PRN albuterol nebulizer treatments Recent midline related right brachial DVT: - prior midline was removed during last hospitalization; therapeutic anticoagulation was not initiated - per records at SNF, planning for repeat US on 05/04/18 Dysphagia s/p PEG tube placement: repeat MBS 04/21 with speech therapy recommending to continue NPO with PEG tube. Frequent aggressive oral care. Repeat MBSS in 2-3 months. - speech therapy recommending NPO status - continue Diabetic Source tube feedings and free water flushes Hyponatremia Na 125 on am labs today, EMR review does not indicate history of recent hyponatremia - repeat evening RFP Grade D esophagitis: - continue PPI BID (plan was for him to be on this for 3 months following EGD on 02/21/18) - arranged for outpatient GI follow up on 06/06/18 HTN: BP controlled - will consider starting antihypertensive if indicated Type II DM: - continue Lantus 15 units daily (home dose 30 units daily); will consider increasing dose - continue Lispro sliding scale with hypoglycemia protocol CYNTHIA: - continue CPAP Prophylaxis: - enoxaparin/PPI Code status: - DNAR/DNI Discharge disposition: was at SNF prior to going to [facility]. Nephew Donta reporting that has mild cognitive deficits at baseline and has a low IQ. - PT recommending SNF - nephbibiana Macias would like him to return to prior SNF - anticipate discharge back to SNF in next 1-2 days Nutrition Diagnosis: Nutrition Diagnosis Agree with dietitians assessment and diagnoses as stated. Moderate protein calorie malnutrition related to recent complicated post-op course as evidence by mild muscle wasting to temples, shoulders and clavicles, mild fat loss to orbital pads and biceps, and significant weight loss of 15% x ~ 2 months. Signature/Cosignature/Attestation: Provider/Team Contact Info-Pager Bhargav Lisa GONZALES #[phone] Attending Only - Shared Visit with Advanced Practice ProviderThis is a shared visit. I have reviewed the Advanced Practice Providers encounter note, approve the Advanced Practice Providers documentation, and provide the following additional information from my personal encounter. Comments/ Additional Findings Patient see and examined with the HANDLE SANDER OPERATOR today. Agree with the above exam and assessment/ plan. No complaints today. Gen: NAD HEENT: facial droop CV: RRR Pulm: CTAB, on 2L NC GI: soft, non-tender Ext: no pitting edema 67 year old male with a past medical history of COPD, CYNTHIA, DM-II, meningioma s/p resection in 2013 with recurrence, and recent admission (from 02/10/18-04/04/18) for repeat resection with hospital course complicated by brainstem infarction, dysphagia (now s/p PEG), line associated DVT, and multiple HAP (MRSA and Pseudomonas) and recurrent mucous plugging, atelectasis requiring aggressive respiratory management that was discharged to SNF. On 04/18/18 patient was found at SNF to be tachycardic and hypoxic so transferred to OSH. At OSH ED that was concern for LLL PNA on CXR so he was started on broad spectrum abx and transferred to [facility] on 04/18/18 due to for further care. Hypoxic Respiratory Failure/ Concern for LLL PNA: - given history concern for recurrent aspiration even - continue on linezolid and cefapime (day #5 of abx) - pulmonary consulted - CT chest with left tree in bud opacity most likely infectious - aggressive respiratory therapy per pulm/ respiratory recs - cultures from OSH (1 of 2 vitals from blood cultures with gram neg bacilli) - blood culture from admission to [facility] - >NGTD - wean oxygen as tolerated Tachycardia: - resolved - EKG at OSH showed sinus tach with multiple PACs and some PVCs Dysphagia: - speech consulted and MBS done -> continue strict NPO Meningioma 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: - continue valproic acid COPD: - does not appear to be in exacerbation - continue inhalers CYNTHIA: - continue CPAP DM: - Lantus 15U daily (1/2 home dose) and ISS Diet: - tube feeds Ppx: - Lovenox subcutaneous Electronic Signatures: Porfirio Gonzalez ([employer] OPERATOR-GROUP MANAGER) (Signed 22-Apr-2018 18:14) Authored: Service, Subjective Data, Objective Data, Assessment and Plan, Signature/Cosignature/Attestation Kimberly Singer) (Signed 24-Apr-2018 09:08) Authored: Signature/Cosignature/Attestation Co-Signer: Subjective Data, Objective Data, Assessment and Plan Last Updated: 24-Apr-2018 09:08 by Kimberly Singer) GLUCOSE-POCT Collected: 04/22/2018 Status: F Source: [facility] 1:19 HOSPITALS REPOSITORY TYPE CODE TESTS RESULT OUT OF RANGE REFERENCE UNITS LAB GLUP(LOINC) 74 - 99 mg/dL High 169 GLUCOSE-POCT Performed By: #### GLUPO #### [facility] [address] [place] [address] CBC Collected: 04/22/2018 Status: F Source: [facility] 1:10 HOSPITALS REPOSITORY TYPE CODE TESTS RESULT OUT OF REFERENCE UNITS RANGE LAB WBCR(LOINC 4.4 - 11.3 x10E9/L ) WBC High 11.5 LAB NRBC(LOINC 0.0-0.0 /100 WBC ) NUCLEATED RBC 0.0 LAB RBCCT(LOIN 4.50 - 5.90 x10E12/L C) Low RBC 3.95 LAB HGB(LOINC) 13.5 - 17.5 g/dL Low HGB 11.6 LAB HCT(LOINC) 41.0 - 52.0 % Low HCT 36.8 LAB MCV(LOINC) 80 - 100 fL MCV 93 LAB MCHC2(LOIN 32.0 - 36.0 g/dL C) Low MCHC 31.5 LAB PLTCT(LOIN 150 - 450 x10E9/L C) PLT 206 LAB RDWCV(LOIN 11.5 - 14.5 % C) RDW-CV 14.3 Performed By: #### CBC #### [facility] [address] [place] [id number] RENAL FUNCTION PANEL Collected: 04/22/2018 Status: F Source: [facility] 1:10 HOSPITALS REPOSITORY TYPE CODE TESTS RESULT OUT OF REFERENCE UNITS RANGE LAB GLU(LOINC) 74 - 99 mg/dL GLUCOSE High 170 LAB SOD(LOINC) 136 - 145 mmol/L Low SODIUM 125 LAB K(LOINC) 3.5 - 5.3 mmol/L POTASSIUM 4.7 LAB CHLOR(LOIN 98 - 107 mmol/L C) Low CHLORIDE 90 LAB BIC(LOINC) 21 - 32 mmol/L BICARBONATE 29 LAB ANGAP(LOIN 10 - 20 mmol/L C) ANION GAP 11 LAB UREA(LOINC 6 - 23 mg/dL ) UREA NITROGEN 21 LAB CREA(LOINC 0.50 - 1.30 mg/dL ) Low CREATININE 0.39 LAB GFRFN(LOIN >60 mL/min/1.7 C) 3m2 GFR-NON AM. >60 LAB GFRAA(LOIN >60 mL/min/1.7 C) 3m2 GFR- AM. >60 Result Comment: CALCULATIONS OF ESTIMATED GFR ARE PERFORMED USING THE MDRD STUDY EQUATION FOR THE IDMS-TRACEABLE CREATININE METHODS. CLIN CHEM 2007;53:766-72 LAB CA(LOINC) 8.6 - 10.6 mg/dL CALCIUM 8.9 LAB PHOS(LOINC) 2.5 - 4.9 mg/dL PHOSPHORUS Low 1.9 Result Comment: The performance characteristics of phosphorus testing in heparinized plasma have been validated by the individual laboratory site where testing is performed. Testing on heparinized plasma is not approved by the FDA; however, such approval is not necessary. LAB ALB(LOINC) 3.4 - 5.0 g/dL Low ALBUMIN 2.7 Performed By: #### RENAL #### [facility] [address] [place] [address] DAILY PROGRESS Observed: 04/22/2018 Status: COMPLETED Source: UNIVERSITY NOTE-PULMONOLOGY 12:24 PM HOSPITALS REPOSITORY Service: Pulmonology Subjective Data: DIPESH BERMUDEZ is a 67 year old Male who is Hospital Day # 5. Overnight Events: Acute events in the past 24 hours include Additional Information: Patient is non verbal. No acute distress and denies SOB or chest pain. Objective Data: Objective Information: Moshe PRBPSpO2 [id number]% Date/Time04/22 11: 11: 11: 11: 11:20 Range(36.4C - 37.2C ) (56 - 75 ) (18 - 18 ) (126 - 153 )/ (73 - 86 ) (94% - 99% ) As of 21-Apr-2018 21:05:00, patient is on 2 L/min of oxygen via nasal cannula. Highest temp of 37.2 C was recorded at 04/22 11:20 Pain with Activity reported at 04/22 8:40: 0 Pain at Rest reported at 04/22 8:40: 0 Physical Exam: Constitutional: Well developed, awake/alert/oriented x3, no distress, alert and cooperative Eyes: PERRL, EOMI, clear sclera ENMT: mucous membranes moist, no apparent injury, no lesions seen Head/Neck: Neck supple, no apparent injury, thyroid without mass or tenderness, No JVD, trachea midline, no bruits Respiratory/Thorax: [place]. air entry with few right basal crypts+ Cardiovascular: Regular, rate and rhythm, no murmurs, 2+ equal pulses of the extremities, normal S 1and S 2 Gastrointestinal: Nondistended, soft, non-tender, no rebound tenderness or guarding, no masses palpable, no organomegaly, +BS, no bruits Musculoskeletal: ROM intact, no joint swelling, normal strength Extremities: normal extremities, no cyanosis edema, contusions or wounds, no clubbing Neurological: awake, alert cooperative, facial droop, right sided hemiparesis Psychological: Appropriate mood and behavior Skin: Warm and dry, no lesions, no rashes Medication: Medications: Continuous Medications No continuous medications are active Scheduled Medications 1. Atorvastatin: 40 mg Oral Daily 2. Budesonide 0.5 mg/ 2 mL Nebulizer Soln: 2 mL Inhalation Every 12 Hours 3. Cefepime IV Piggy Back: 2 gram(s) IntraVenous Piggyback Every 12 Hours 4. Docusate Oral Liquid: 100 mg Oral 2 Times a Day 5. Enoxaparin SubCutaneous: 40 mg SubCutaneous Every 24 Hours 6. Esomeprazole Oral Packet: 40 mg NasoGastric Tube 2 Times a Day 7. Formoterol 20 microgram/ 2 mL Neb Soln: 2 mL Inhalation Every 12 Hours 8. guaiFENesin Oral Liquid: 400 mg Oral Every 6 Hours 9. Insulin Glargine (Lantus) Injectable: 15 unit(s) SubCutaneous Every 24 Hours 10. Insulin Lispro Mild Corrective Scale: unit(s) SubCutaneous Every 4 Hours 11. Linezolid 600 mg IVPB/ Premixed Soln 300 mL: 300 mL IntraVenous Piggyback Every 12 Hours 12. Saliva Substitute: 15 mL Oral 4 Times a Day 13. Silodosin (NON - Formulary): 8 mg Oral Daily 14. Simethicone Oral Liquid Drops: 80 mg Oral 4 Times a Day After Meals 15. Valproic Acid (Depakene) Oral Liquid: 500 mg PEG Tube <User Schedule> PRN Medications 1. Acetaminophen Oral Liquid: 650 mg Gastrostomy Tube Every 4 Hours 2. Albuterol 2.5 mg/ 3 mL Nebulizer Soln: 3 mL Inhalation Every 6 Hours 3. Dextrose 50% in Water Injectable: 25 gram(s) IntraVenous Push Every 15 Minutes 4. Glucagon Injectable: 1 mg IntraMuscular Every 15 Minutes 5. Polyethylene Glycol: 17 gram(s) Oral Daily Recent Lab Results: Results: I have reviewed these laboratory results: Glucose_POCT 22-Apr-2018 09:56:00 ResultValue Glucose-POCT 146 H Radiology Results: Results: Impression: 1. Bronchial wall thickening predominantly in the lower lobes, and left lower lobe tree-in-bud opacity. Correlate with bronchiolitis/small airway disease, likely infectious in etiology. No focal consolidation is however identified. 2. Bibasilar atelectasis, left more than right. Trace bibasilar pleural effusion. 3. Moderate coronary artery calcifications. 4. Ectatic thoracic aorta measuring up to 4 cm in diameter with moderate calcified and noncalcified atherosclerosis. 5. Postoperative changes consistent with left lower lobectomy. Correlate with surgical history. 6. 1.5 cm indeterminate nodular thickening of the left adrenal gland. CT Chest with Contrast [Apr 22 2018 11:19AM] Assessment and Plan: Assessment: 67 year old man known case of COPD, meningioma s/p resection twice with post-hospitalization course complicated by stroke, dysphagia, PEG placement, recurrent aspiration pneumonia presenting with acute hypoxic respiratory failure which may be related to a recent hospital-acquired pneumonia vs. left lower lobe atelectasis. 1. Recurrent Pneumonia- most likely due to recurrent aspiration. 2. COPD 3. Acute hypoxic respiratory failure 4. Dysphagia Recommend: - Aspiration precaution and need follow up speech therapy recommendation. - Continue Linezolid/Cefepime - Continue EzPAP and Vest therapy q6h - Low flow O2 to keep saturation 90-92% - Please obtain CT chest to evaluate for presence of infiltrate, and determine course length of antibiotics Please page at #[phone] for any further questions. Signature/Cosignature/Attestation: Attending AttestationI saw and evaluated the patient. I personally obtained the gonzalez and critical portions of the history and physical exam or was physically present for gonzalez and critical portions performed by the resident/fellow. I reviewed the resident/fellows documentation and discussed the patient with the resident/fellow. I agree with the resident/fellows medical decision making as documented in the resident/fellows note with the exception/addition of the following: I personally evaluated the patient (as noted in the above attestation) on 22-Apr-2018 Comments/ Additional Findings Stable overnight, receiving respiratory secretion clearance, note failure of swallow study with aspiration consistent with ongoing problems, primary team addressing, Ct consistent with aspiration and previous pneumonia, would consider 10-14 day antibiotics. Electronic Signatures: Dameon Salazar ( (Fellow)) (Entered 22-Apr-2018 12:30) Entered: Service, Subjective Data, Objective Data, Assessment and Plan, Signature/Cosignature/Attestation Brittany Harrell (DO) (Signed 22-Apr-2018 13:39) Entered: Signature/Cosignature/Attestation Authored: Service, Subjective Data, Objective Data, Assessment and Plan, Signature/Cosignature/Attestation Last Updated: 22-Apr-2018 13:39 by Brittany Harrell (DO) GLUCOSE-POCT Collected: 04/22/2018 Status: F Source: [facility] 9:56 AM HOSPITALS REPOSITORY TYPE CODE TESTS RESULT OUT OF RANGE REFERENCE UNITS LAB GLUP(LOINC) 74 - 99 mg/dL High 146 GLUCOSE-POCT Performed By: #### GLUPO #### [facility] [address] [place] [address] GLUCOSE-POCT Collected: 04/22/2018 Status: F Source: [facility] 6:30 AM HOSPITALS REPOSITORY TYPE CODE TESTS RESULT OUT OF RANGE REFERENCE UNITS LAB GLUP(LOINC) 74 - 99 mg/dL High 134 GLUCOSE-POCT Performed By: #### GLUPO #### [facility] [address] [place] [address] GLUCOSE-POCT Collected: 04/22/2018 Status: F Source: [facility] 2:08 AM HOSPITALS REPOSITORY TYPE CODE TESTS RESULT OUT OF RANGE REFERENCE UNITS LAB GLUP(LOINC) 74 - 99 mg/dL High 176 GLUCOSE-POCT Performed By: #### GLUPO #### [facility] [address] [place] [address] GLUCOSE-POCT Collected: 04/21/2018 Status: F Source: [facility] 9:45 PM HOSPITALS REPOSITORY TYPE CODE TESTS RESULT OUT OF RANGE REFERENCE UNITS LAB GLUP(LOINC) 74 - 99 mg/dL High 137 GLUCOSE-POCT Performed By: #### GLUPO #### [facility] [address] [place] [address] CHEST W Observed: 04/21/2018 Status: F Source: [facility] CONTRAST 8:33 PM HOSPITALS REPOSITORY Addendum Begins Patient Name: DIPESH BERMUDEZ ADDENDUM: Impression number 6 should read indeterminate nodular thickening of the right adrenal gland. The rest of the dictation remains unchanged. Electronically signed by: FADIA WEI MD Addendum Ends Patient Name: DIPESH BERMUDEZ STUDY: CT CHEST W CONTRAST; 04/21/2018 8:33 pm INDICATION: Signs/Symptoms: unresolving pneumonia, Lie Flat: Yes. COMPARISON: Contrast enhance CT angiogram of the chest dated 03/12/2018. ACCESSION NUMBER(S): [id number] ORDERING CLINICIAN: JACKSON BELTRAN TECHNIQUE: Helical data acquisition of the chest was obtained following administration of 90 mL Isovue 370 intravenous contrast.. Images were reformatted in axial, coronal, and sagittal planes. FINDINGS: LUNGS AND AIRWAYS: The trachea and central airways are patent. No endobronchial lesion. There are surgical clips in the left hilum and postoperative changes left lower lobe from likely left lower lobectomy. Correlate with prior surgical history. There is redemonstration of diffuse bronchial wall thickening, predominantly in the lower lobes, with mucus plugging seen. There is been interval re-aeration of the left lung. There is bibasilar atelectasis, greater on the left. There is a linear band like opacity in the left lung base which likely represents atelectasis versus scar, as it is seen as far back as the CT of the chest from 02/16/2018. There is tree-in-bud opacity predominantly in the left lower lobe. Correlate with bronchiolitis/small airway disease. There are trace bilateral pleural effusions. MEDIASTINUM AND MERRILL, LOWER NECK AND AXILLA: The visualized thyroid gland is within normal limits. Scattered subcentimeter non-specific prominent mediastinal lymph nodes, however no evidence of thoracic lymphadenopathy by CT criteria. There is a small hiatal hernia. HEART AND VESSELS: The thoracic aorta is ectatic, measuring up to 4 cm in diameter. There is moderate calcified and noncalcified atherosclerosis of the thoracic aorta. Main pulmonary artery and its branches are normal in caliber. Moderate coronary artery calcifications are seen in the left main coronary artery and LAD. The study is not optimized for evaluation of coronary arteries. The cardiac chambers are not enlarged. No evidence of pericardial effusion. UPPER ABDOMEN: There is a 1.5 cm indeterminate nodular thickening of the left adrenal gland. There are multiple low attenuating lesions within the kidneys, favored to be cysts. Positive oral contrast is seen within the visualized colon. PEG tube is in place within the stomach. CHEST WALL AND OSSEOUS STRUCTURES: There are no suspicious osseous lesions. Multilevel degenerative changes are present. There is gynecomastia. IMPRESSION: 1. Bronchial wall thickening predominantly in the lower lobes, and left lower lobe tree-in-bud opacity. Correlate with bronchiolitis/small airway disease, likely infectious in etiology. No focal consolidation is however identified. 2. Bibasilar atelectasis, left more than right. Trace bibasilar pleural effusion. 3. Moderate coronary artery calcifications. 4. Ectatic thoracic aorta measuring up to 4 cm in diameter with moderate calcified and noncalcified atherosclerosis. 5. Postoperative changes consistent with left lower lobectomy. Correlate with surgical history. 6. 1.5 cm indeterminate nodular thickening of the left adrenal gland. I personally reviewed the images/study and I agree with the findings as stated. This study was interpreted at [place], [place]. Electronically signed by: FADIA WEI MD GLUCOSE-POCT Collected: 04/21/2018 Status: F Source: [facility] 3:47 PM HOSPITALS REPOSITORY TYPE CODE TESTS RESULT OUT OF RANGE REFERENCE UNITS LAB GLUP(LOINC) 74 - 99 mg/dL High 132 GLUCOSE-POCT Performed By: #### GLUPO #### [facility] [address] [place] [address] DAILY PROGRESS Observed: 04/21/2018 Status: COMPLETED Source: [facility] NOTE-PULMONOLOGY 2:37 PM HOSPITALS REPOSITORY Service: Pulmonology Subjective Data: DIPESH BERMUDEZ is a 67 year old Male who is Hospital Day # 4. Additional Information: Reported feeling well. Denied dyspnea, cough, or sputum production. Objective Data: Objective Information: Moshe PRBPSpO2 [id number]% Date/Time04/21 11: 11: 11: 11: 11:42 Range(36.5C - 37.1C ) (59 - 71 ) (17 - 18 ) (111 - 148 )/ (69 - 89 ) (98% - 100% ) Highest temp of 37.1 C was recorded at 04/21 11:42 Pain with Activity reported at 04/21 9:50: 0 Pain at Rest reported at 04/21 9:50: 0 Physical Exam: Constitutional: awake, cooperative, dysarthria Eyes: anicteric sclera ENMT: mmm Head/Neck: nc/at Respiratory/Thorax: Patent airways, CTAB, normal breath sounds with good chest expansion, thorax symmetric Cardiovascular: Regular, rate and rhythm, no murmurs, 2+ equal pulses of the extremities, normal S 1and S 2 Gastrointestinal: abd soft nontender, peg tube Extremities: no edema Neurological: awake, alert cooperative, facial droop, right sided hemiparesis Lymphatic: No significant lymphadenopathy Psychological: Appropriate mood and behavior Skin: warm dry, no edema Medication: Medications: Continuous Medications No continuous medications are active Scheduled Medications 1. Atorvastatin: 40 mg Oral Daily 2. Budesonide 0.5 mg/ 2 mL Nebulizer Soln: 2 mL Inhalation Every 12 Hours 3. Cefepime IV Piggy Back: 2 gram(s) IntraVenous Piggyback Every 12 Hours 4. Docusate Oral Liquid: 100 mg Oral 2 Times a Day 5. Enoxaparin SubCutaneous: 40 mg SubCutaneous Every 24 Hours 6. Esomeprazole Oral Packet: 40 mg NasoGastric Tube 2 Times a Day 7. Formoterol 20 microgram/ 2 mL Neb Soln: 2 mL Inhalation Every 12 Hours 8. guaiFENesin Oral Liquid: 400 mg Oral Every 6 Hours 9. Insulin Glargine (Lantus) Injectable: 15 unit(s) SubCutaneous Every 24 Hours 10. Insulin Lispro Mild Corrective Scale: unit(s) SubCutaneous Every 4 Hours 11. Iopamidol 76% (ISOVUE 370) -Radiology Contrast): 125.85 mL IntraVenous Push Once 12. Linezolid 600 mg IVPB/ Premixed Soln 300 mL: 300 mL IntraVenous Piggyback Every 12 Hours 13. Saliva Substitute: 15 mL Oral 4 Times a Day 14. Silodosin (NON - Formulary): 8 mg Oral Daily 15. Simethicone Oral Liquid Drops: 80 mg Oral 4 Times a Day After Meals 16. Valproic Acid (Depakene) Oral Liquid: 500 mg PEG Tube <User Schedule> PRN Medications 1. Acetaminophen Oral Liquid: 650 mg Gastrostomy Tube Every 4 Hours 2. Albuterol 2.5 mg/ 3 mL Nebulizer Soln: 3 mL Inhalation Every 6 Hours 3. Dextrose 50% in Water Injectable: 25 gram(s) IntraVenous Push Every 15 Minutes 4. Glucagon Injectable: 1 mg IntraMuscular Every 15 Minutes 5. Polyethylene Glycol: 17 gram(s) Oral Daily Radiology Results: Results: Impression: Persistent left basilar and retrocardiac opacity which can be due to pneumonia in appropriate clinical setting. No significant interval change Xray Chest 1 View [Apr 21 2018 6:55AM] Assessment and Plan: Assessment: 67 year old man known case of COPD, meningioma s/p resection twice with post-hospitalization course complicated by stroke, dysphagia, PEG placement, recurrent aspiration pneumonia presenting with acute hypoxic respiratory failure which may be related to a recent hospital-acquired pneumonia vs. left lower lobe atelectasis. 1. Recurrent Pneumonia 2. COPD 3. Acute hypoxic respiratory failure 4. Dysphagia Recommend: - Continue Linezolid/Cefepime - Continue EzPAP and Vest therapy q6h - Wean down FiO2 to keep SpO2 around 92% - Please obtain CT chest to evaluate for presence of infiltrate, and determine course length of antibiotics Thank you for allowing our service to participate in the patient's care, and please feel free to page at #[phone] for any further questions. Signature/Cosignature/Attestation: Attending AttestationI saw and evaluated the patient. I personally obtained the gonzalez and critical portions of the history and physical exam or was physically present for gonzalez and critical portions performed by the resident/fellow. I reviewed the resident/fellows documentation and discussed the patient with the resident/fellow. I agree with the resident/fellows medical decision making as documented in the resident/fellows note with the exception/addition of the following: I personally evaluated the patient (as noted in the above attestation) on 21-Apr-2018 Comments/ Additional Findings Receiving therapy per bedside nursing, non-verbal but awake. Lungs clear on my exam. Will re-image chest to assess duration of therapy. Oxygen stable. Electronic Signatures: Jairon Lomas (Fellow)) (Signed 21-Apr-2018 14:40) Authored: Service, Subjective Data, Objective Data, Assessment and Plan, Signature/Cosignature/Attestation Brittany Harrell (DO) (Signed 21-Apr-2018 15:57) Authored: Signature/Cosignature/Attestation Co-Signer: Service, Subjective Data, Objective Data, Assessment and Plan, Signature/Cosignature/Attestation Last Updated: 21-Apr-2018 15:57 by Brittany Harrell (DO) 12 LEAD ELECTROCARDIOGRAM Observed: 04/21/2018 Status: F Source: [place] 1:33 PM [facility] REPOSITORY [facility] Cardiovascular Services [address] [place] [id number] 12 Lead EKG 04/18/18 1158 MR#: [id number] Acct: [id number] Name: DIPESH CARR Rep #: [id number] : 1950 67 From: Keith Andujar MD Attending Dr: Status: DEP ER Ordering Dr: Riccardo Robles MD Date: 04/18/18 Location: ED Sex: M C Admitted: Test Reason : AFIB Blood Pressure : / mmHG Vent. Rate : 107 BPM Atrial Rate : 107 BPM P-R Int : 280 ms QRS Dur : 108 ms QT Int : 324 ms P-R-T Axes : 000 -60 066 degrees QTc Int : 432 ms Sinus tachycardia with 1st degree A-V block with Premature atrial complexes with Aberrant conduction Left axis deviation Possible Lateral infarct , age undetermined Inferior infarct , age undetermined , cannot be excluded Abnormal ECG Confirmed by KEITH ANDUJAR MD ([id number]), rewrite editor MARYLIN NUNES ([id number]) on 04/21/2018 1:32:35 PM Referred By: EKATERINA Confirmed By:KEITH ANDUJAR MD 04/21/18 1332 Date Keith Andujar MD CC: Kamilah Lopez; Срегей Robles MD; Kamilah Lopez MD Signed DAILY PROGRESS Observed: 04/21/2018 Status: COMPLETED Source: [facility] 12:22 PM HOSPITALS REPOSITORY Service: Medicine Subjective Data: DIPESH BERMUDEZ is a 67 year old Male who is Hospital Day # 4. pt stating only his name. Overnight Events: Patient had an uneventful night. Objective Data: Objective Information: T PRBPSpO2 [id number]% Date/Time04/21 11 11 11 11:42 Range(36.5C - 37.1C ) (59 - 71 ) (17 - 18 ) (111 - 148 )/ (69 - 89 ) (98% - 100% ) Highest temp of 37.1 C was recorded at 04/21 11:42 Pain with Activity reported at 04/21 9:50: 0 Pain at Rest reported at 04/21 9:50: 0 Weights 04/21 5:23: Weight in kg (Weight (kg)) 83.9 04/21 5:23: Weight in lbs ((lbs)) 184.9 Physical Exam: Constitutional: Pt. lying in bed, pleasant, nodding, making eye contact, in NAD Eyes: PERRL +3, sclera clear ENMT: MMM, no lesions noted Head/Neck: Craniectomy incision well-approximated Respiratory/Thorax: CTAB, breathing even, unlabored, chest excursion even and symmetric on 2L N/C Cardiovascular: RRR, normal S1, S2, no m,r,g Gastrointestinal: +BS, abd. soft, round NT, Peg intact with no drainage to site. Musculoskeletal: 5/5 strength throughout Extremities: PPPx4, no edema noted Neurological: A&Ox1-2. difficult to assess Psychological: Mood flat, verbal with much encouragement. Skin: Warm, dry, and intact Medication: Medications: Continuous Medications No continuous medications are active Scheduled Medications 1. Atorvastatin: 40 mg Oral Daily 2. Budesonide 0.5 mg/ 2 mL Nebulizer Soln: 2 mL Inhalation Every 12 Hours 3. Cefepime IV Piggy Back: 2 gram(s) IntraVenous Piggyback Every 12 Hours 4. Docusate Oral Liquid: 100 mg Oral 2 Times a Day 5. Enoxaparin SubCutaneous: 40 mg SubCutaneous Every 24 Hours 6. Esomeprazole Oral Packet: 40 mg NasoGastric Tube 2 Times a Day 7. Formoterol 20 microgram/ 2 mL Neb Soln: 2 mL Inhalation Every 12 Hours 8. guaiFENesin Oral Liquid: 400 mg Oral Every 6 Hours 9. Insulin Glargine (Lantus) Injectable: 15 unit(s) SubCutaneous Every 24 Hours 10. Insulin Lispro Mild Corrective Scale: unit(s) SubCutaneous Every 4 Hours 11. Iopamidol 76% (ISOVUE 370) -Radiology Contrast): 125.85 mL IntraVenous Push Once 12. Linezolid 600 mg IVPB/ Premixed Soln 300 mL: 300 mL IntraVenous Piggyback Every 12 Hours 13. Saliva Substitute: 15 mL Oral 4 Times a Day 14. Silodosin (NON - Formulary): 8 mg Oral Daily 15. Simethicone Oral Liquid Drops: 80 mg Oral 4 Times a Day After Meals 16. Valproic Acid (Depakene) Oral Liquid: 500 mg PEG Tube <User Schedule> PRN Medications 1. Acetaminophen Oral Liquid: 650 mg Gastrostomy Tube Every 4 Hours 2. Albuterol 2.5 mg/ 3 mL Nebulizer Soln: 3 mL Inhalation Every 6 Hours 3. Dextrose 50% in Water Injectable: 25 gram(s) IntraVenous Push Every 15 Minutes 4. Glucagon Injectable: 1 mg IntraMuscular Every 15 Minutes 5. Polyethylene Glycol: 17 gram(s) Oral Daily Recent Lab Results: Results: I have reviewed these laboratory results: Glucose_POCT Trending View [id number] 15:47:00 21-Apr-2018 11:40:00 21-Apr-2018 07:07:00 21-Apr-2018 04:16:00 21-Apr-2018 02:14:00 [id number] H 148 H 160 H 136 H 148 H Radiology Results: Results: Impression: 1. Fluoroscopic support provided to speech pathologist for a modified barium swallow findings as described above. Correlate with detailed report from speech pathologist for dietary recommendations. Xray Complete Pharyngeal + Speech Eval [Apr 21 2018 3:53PM] Impression: Persistent left basilar and retrocardiac opacity which can be due to pneumonia in appropriate clinical setting. No significant interval change Xray Chest 1 View [Apr 21 2018 6:55AM] Assessment and Plan: Assessment: This is a 67 year old male with history significant for HTN, type II DM, COPD, left lung resection in (for unclear reasons), CYNTHIA, and meningioma s/p craniotomy with resection 2013 (at [facility]) who was recently admitted 02/10/18-04/04/18 for meningioma resection with 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 Admitted to medicine. In a shared visit with Dr. Jennings Suspected HCAP: Microbiology lab at [facility] verified that sputum culture was not sent. Flu panel from [facility] was negative. One set of blood cultures was sent at [facility] and is negative to date. Blood cultures from [facility] negative to date. - consulted pulmonology. Appreciate recs - obtain chest CT to assist with further plan for antibiotics - consulted palliative care to assist with conversations on plan of care (previously saw him during prior hospitalization) - continue linezolid and cefepime per recommendations - follow up blood cultures from [facility] and [facility] - send sputum culture - continue EZ pap and vest therapy - wean supplemental 02 as tolerated (he is not normally on 02) - bronchial hygiene Initial concern for atrial fibrillation: unclear if this was the case as ECG was of poor quality. Repeat ECG at noted. Sinus rhythm with 1st degree AV block. No atrial fibrillation has been noted on telemetry. - continue to monitor telemetry COPD: - continue inhaled formoterol and budesonide - hold off with Advair as he can't follow directions enough to take this - continue PRN albuterol nebulizer treatments Recent midline related right brachial DVT: - prior midline was removed during last hospitalization; therapeutic anticoagulation was not initiated - per records at SNF, planning for repeat US on 05/04/18 Dysphagia s/p PEG tube placement: - speech therapy recommending NPO status and MBS (which will be tomorrow; canceled today) - continue Diabetic Source tube feedings and free water flushes Grade D esophagitis: - continue PPI BID (plan was for him to be on this for 3 months following EGD on 02/21/18) - arranged for outpatient GI follow up on 06/06/18 HTN: BP controlled - will consider starting antihypertensive if indicated Type II DM: - continue Lantus 15 units daily (home dose 30 units daily); will consider increasing dose tomorrow - continue Lispro sliding scale with hypoglycemia protocol CYNTHIA: - continue CPAP Prophylaxis: - enoxaparin/PPI Code status: - DNAR/DNI Discharge disposition: was at SNF prior to going to [facility]. Nephew Donta reporting that pt has mild cognitive deficits at baseline and has a low IQ. - PT recommending SNF - nephew Donta would like him to return to prior SNF - anticipate discharge back to SNF in next 1-2 days Nutrition Diagnosis: Nutrition Diagnosis Agree with dietitians assessment and diagnoses as stated. Moderate protein calorie malnutrition related to recent complicated post-op course as evidence by mild muscle wasting to temples, shoulders and clavicles, mild fat loss to orbital pads and biceps, and significant weight loss of 15% x ~ 2 months. Signature/Cosignature/Attestation: Provider/Team Contact Info-Pager LESLIE De Los Santos #[phone] Comments/ Additional Findings Patient see and examined with the HANDLE SANDER OPERATOR today. Agree with the above exam and assessment/ plan. No complaints today. Gen: NAD HEENT: facial droop CV: RRR Pulm: CTAB, on 2L NC GI: soft, non-tender Ext: no pitting edema 67 year old male with a past medical history of COPD, CYNTHIA, DM-II, meningioma s/p resection in 2013 with recurrence, and recent admission (from 02/10/18-04/04/18) for repeat resection with hospital course complicated by brainstem infarction, dysphagia (now s/p PEG), line associated DVT, and multiple HAP (MRSA and Pseudomonas) and recurrent mucous plugging, atelectasis requiring aggressive respiratory management that was discharged to SNF. On 04/18/18 patient was found at SNF to be tachycardic and hypoxic so transferred to OSH. At OSH ED that was concern for LLL PNA on CXR so he was started on broad spectrum abx and transferred to [facility] on 04/18/18 due to for further care. Hypoxic Respiratory Failure/ Concern for LLL PNA: - given history concern for recurrent aspiration even - continue on linezolid and cefapime (day #4 of abx) - pulmonary consulted - CXR with persistent left basilar and retrocardic opacity - recommend CT chest - aggressive respiratory therapy per pulm/ respirtory recs - f/u cultures from OSH - blood culture from admission to [facility] - >NGTD - wean oxygen as tolerated Tachycardia: - resolved - EKG at OSH showed sinus tach with multiple PACs and some PVCs Dysphagia: - speech consulted and MBS done -> continue strict NPO Meningioma 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: - continue valproic acid COPD: - does not appear to be in exacerbation - continue inhalers CYNTHIA: - continue CPAP DM: - Lantus 15U daily (1/2 home dose) and ISS Diet: - tube feeds Ppx: - Lovenox subcutaneous Electronic Signatures: Jackson Beltran (VORTEX OPERATOR-GROUP MANAGER) (Signed 21-Apr-2018 20:18) Authored: Service, Subjective Data, Objective Data, Assessment and Plan, Signature/Cosignature/Attestation Kimberly Singer) (Signed 24-Apr-2018 09:05) Authored: Signature/Cosignature/Attestation Co-Signer: Service, Subjective Data, Objective Data, Assessment and Plan, Signature/Cosignature/Attestation Last Updated: 24-Apr-2018 09:05 by Kimberly Singer) GLUCOSE-POCT Collected: 04/21/2018 Status: F Source: [facility]ABEL 11:40 AM [facility]OSPITALS REPOSITORY TYPE CODE TESTS RESULT OUT OF RANGE REFERENCE UNITS LAB GLUP(LOINC) 74 - 99 mg/dL High 148 GLUCOSE-POCT Performed By: #### GLUPO #### [facility] [address] [place] [address] SWALLOW EVALUATION Observed: 04/21/2018 Status: UNK Source: IDABEL V2-MODIFIED BARIUM 8:38 AM HOSPITALS REPOSITORY SWALLOW, MANAGER PROCESS IMPROVEMENT Rehab: Info: Mode of TreatmentSpeech-Language Pathology Time IN07:50 Time OUT08:25 Total Treatment [id number] Patient in ... at end of sessionbed, 4 railings up Evaluation TypeModified Barium Swallow, MANAGER PROCESS IMPROVEMENT Patient Effortadequate Symptoms Noted During/After Treatmentshortness of breath Patient Profile Reviewedyes Onset of Illness/Injury or Date of [id number] Reason for ReferralPneumonia Referring PhysicianMahsa Mar Observations of PatientCooperative; Confused: IV lines; O2 via NC Pertinent History of Current Functional Uwyxdnl89 y/o male with PMH of HTN, type II DM, COPD, left lung resection ( for unclear reasons), CYNTHIA refuses treatment, and meningioma s/p craniotomy with resection 2013 (at [facility]) here as transfer from [facility] for treatment of pneumonia. Patient recently had a prolonged hospital stay from 02/10 04/03 when he came for a repeat surgical resection of his meningioma. The post-operative course was complicated by dysphagia and aspiration pneumonia, as well as brainstem infarct. Patient received vanc/zosyn but without a resolution of leukocytosis until he was transitioned to linezolid for pneumonia with MRSA growing in sputum, and then later was started on a brief course of Levaquin for sputum growing pseudomonas (03/21-04/04). He had multiple episodes of desaturation requiring CPAP and aggressive chest physiotherapy. Patient was eventually discharged to SNF on 2L NC. While at SNF, patients labs were stable, he states he was participating in physical therapy as best as he could and that he did not have any issues. States he continued to cough up clear sputum, and denies any fevers or chills. However, he endorses approximately 4-5 days of muscle aches and fatigue. In the ED: VS T 36.0 P 109 BP 141/104 R 18 96% SpO2 on 2L NC Labs: CBC 17.1/13.4/236 BMP 132/4.8/97/31/30/0.53 Lactate 1.0 Imaging: CXR w/ increased interstitial marking over left lung and base Intervention: Given 1L NS bolus, 3.375gm zosyn, 1.25gm vancomycin, 500mg Levaquin, transferred to [facility] Precautions/Limitationsswallowing precautions; oxygen therapy device and L/min Limitations/Impairmentssafety/cognitive; sensory; swallowing Impression: MANAGER PROCESS IMPROVEMENT Swallowing DiagnosisSevere Oral-Pharyngeal Dysphagia Assessment (Swallow Eval)Repeat MBSS completed. Initial MBSS completed 02/16 with recs for STRICT NPO; see EMR for full details/recommendations. Informed verbal consent obtained. Given trials of thin, nectar, honey and puree consistencies. Pt presents with significantly impaired bolus formation/control, decreased A-P transit and lingual pumping resulting in premature spillage into the pharynx across tested consistencies. Significantly delayed swallow onset with decreased BOT retraction, laryngeal elevation/anterior pull, pharyngeal squeeze and reduced laryngeal vestibular closure resulting in SILENT ASPIRATION in mod amounts during the swallow with thin liquids, nectar thick liquids and honey thick liquids and continued SILENT aspiration with all liquid consistencies and puree after the swallow 2/2 pharyngeal residue. Pt is NOT sensate to pharyngeal residue leaving him at high risk of aspiration with any/all PO intake, including therapeutic trials. Pt not able to follow commands to complete compensatory strategies (i.e. chin tuck/head turn). Recommend continue NPO with PEG tube. Frequent aggressive oral care. HANDLE SANDER OPERATOR (Jackson) aware of results/recommendations. Repeat MBSS in 2-3 months. MANAGER PROCESS IMPROVEMENT Diet Recommendations (Swallow Eval)STRICT NPO with frequent aggressive oral care MBSS: Rosenbek's Penetration Aspiration Scale, Thin Liquid (MBSS)(8) contrast passes glottis, visible subglottic residue remains, absent patient response (aspiration) Rosenbek's Penetration Aspiration Scale, [place] Thick (MBSS)(8) contrast passes glottis, visible subglottic residue remains, absent patient response (aspiration) Rosenbek's Penetration Aspiration Scale, Honey Thick (MBSS)(8) contrast passes glottis, visible subglottic residue remains, absent patient response (aspiration) Rosenbek's Penetration Aspiration Scale, Puree (MBSS)(5) contrast contacts vocal cords, visible residue remains (penetration) Short Term Goals: Dysphagia/Swallow: Established [id number] Dysphagia/Swallow: Goal DetailsPt will tolerate the least restrictive diet with no overt clinical s/s of aspiration/penetration 100% of the time. Dysphagia/Swallow: Time Frame for GoalBy discharge Electronic Signatures: Danielle Florence (RYLAN) (Signed 21-Apr-2018 09:04) Authored: Rehab Last Updated: 21-Apr-2018 09:04 by Danielle Florence (RYLAN) GI COMP PHARYNGEAL Observed: 04/21/2018 Status: F Source: UNIVERSITY SPEECH EVAL 8:10 AM HOSPITALS REPOSITORY Patient Name: DIPESH BERMUDEZ STUDY: GI COMP PHARYNGEAL SPEECH EVAL; 04/21/2018 8:10 am INDICATION: Signs/Symptoms: Mr. Bermudez had prior dysphagia. Please reassess.. COMPARISON: Pharyngeal speech evaluation dated 02/16/2018. ACCESSION NUMBER(S): [id number] ORDERING CLINICIAN: BROOKE MULLEN TECHNIQUE: Radiographic and videographic assistance was provided to the speech pathologist performing modified barium swallow. The patient was given food of different consistencies mixed with approximately 100 mL of barium and the swallowing response was observed. Fluoroscopic time was 2.7 minutes. FINDINGS: Normal retropharyngeal space. Moderate degenerative changes are seen in the cervical spine. No abnormal calcifications. Oral phase swallowing function was Abnormal The pharyngeal phase is Abnormal. Laryngeal penetration and aspiration detected with thin, nectar, honey, and puree consistencies. Esophageal phase of swallowing demonstrated No reduced motility. See MANAGER PROCESS IMPROVEMENT report for further findings and recommendations. IMPRESSION: 1. Fluoroscopic support provided to speech pathologist for a modified barium swallow findings as described above. Correlate with detailed report from speech pathologist for dietary recommendations. I personally reviewed the images/study and I agree with the findings as stated. This study was interpreted at [facility], [place], [place]. Electronically signed by: DENNY BLACK MD GLUCOSE-POCT Collected: 04/21/2018 Status: F Source: IDABEL 7:07 AM [facility] REPOSITORY TYPE CODE TESTS RESULT OUT OF RANGE REFERENCE UNITS LAB GLUP(LOINC) 74 - 99 mg/dL High 160 GLUCOSE-POCT Performed By: #### GLUPO #### [facility] [address] [place] [address] TH CHEST 1 VIEW Observed: 04/21/2018 Status: F Source: IDABEL 6:38 AM [facility] REPOSITORY Patient Name: DIPESH BERMUDEZ STUDY: TH CHEST 1 VIEW; 04/21/2018 6:38 am INDICATION: Signs/Symptoms: Mr. Bermudez has suspected pneumonia. Please reevaluate.. COMPARISON: 04/18/2018 ACCESSION NUMBER(S): [id number] ORDERING CLINICIAN: BROOKE MULLEN FINDINGS: The cardiac silhouette size is stable. There is calcification in aortic knob. Persistent left basilar and retrocardiac opacity. No sizable pneumothorax No acute osseous abnormality. IMPRESSION: Persistent left basilar and retrocardiac opacity which can be due to pneumonia in appropriate clinical setting. No significant interval change Electronically signed by: FADIA WEI MD GLUCOSE-POCT Collected: 04/21/2018 Status: F Source: IDABEL 4:16 AM [facility] REPOSITORY TYPE CODE TESTS RESULT OUT OF RANGE REFERENCE UNITS LAB GLUP(LOINC) 74 - 99 mg/dL High 136 GLUCOSE-POCT Performed By: #### GLUPO #### [facility] [address] [place] [address] GLUCOSE-POCT Collected: 04/21/2018 Status: F Source: IDABEL 2:14 AM [facility] REPOSITORY TYPE CODE TESTS RESULT OUT OF RANGE REFERENCE UNITS LAB GLUP(LOINC) 74 - 99 mg/dL High 148 GLUCOSE-POCT Performed By: #### GLUPO #### [facility] [address] [place] [address] CBC AND DIFFERENTIAL Collected: 04/21/2018 Status: CANCELLED Source: [facility] 1:00 HOSPITALS REPOSITORY Order Comment: TEST CBC AND DIFFERENTIAL WAS CANCELLED, 04/22/2018 01:31 NO SPECIMEN RECEIVED IN LAB. TYPE CODE TESTS RESULT OUT OF REFERENCE UNITS RANGE LAB WBCR(LOINC ) WBC Canceled LAB NRBC(LOINC ) NUCLEATED RBC Canceled LAB RBCCT(LOIN C) RBC Canceled LAB HGB(LOINC) HGB Canceled LAB HCT(LOINC) HCT Canceled LAB MCV(LOINC) MCV Canceled LAB MCHC2(LOIN C) MCHC Canceled LAB PLTCT(LOIN C) PLT Canceled LAB RDWCV(LOIN C) RDW-CV Canceled LAB NEUT(LOINC ) % NEUTROPHIL Canceled LAB IG(LOINC) % AUTOMATED Canceled IMMATURE GRAN Result Comment: Percent differential counts (%) should be interpreted in the context of the absolute cell counts (cells/L). LAB LYMPH(LOINC) % LYMPHOCYTE Canceled LAB MONO(LOINC) % MONOCYTE Canceled LAB EOS(LOINC) % EOSINOPHIL Canceled LAB BASO(LOINC) % BASOPHIL Canceled LAB #NEUT(LOINC) NEUTROPHIL Canceled LAB #LYMP(LOINC) LYMPHOCYTE Canceled LAB #MONO(LOINC) MONOCYTE Canceled LAB #EOS(LOINC) EOSINOPHIL Canceled LAB #BASO(LOINC) BASOPHIL Canceled LAB MDIF(LOINC) DIFFERENTIAL Canceled Performed By: #### CBCDF #### [facility] [address] [place] [address] RENAL FUNCTION PANEL Collected: 04/21/2018 Status: CANCELLED Source: [facility] 1:00 HOSPITALS REPOSITORY Order Comment: TEST RENAL FUNCTION PANEL WAS CANCELLED, 04/22/2018 01:31 NO SPECIMEN RECEIVED IN LAB. TYPE CODE TESTS RESULT OUT OF REFERENCE UNITS RANGE LAB GLU(LOINC) GLUCOSE Canceled LAB SOD(LOINC) SODIUM Canceled LAB K(LOINC) POTASSIUM Canceled LAB CHLOR(LOIN C) CHLORIDE Canceled LAB BIC(LOINC) BICARBONATE Canceled LAB ANGAP(LOIN C) ANION GAP Canceled LAB UREA(LOINC ) UREA NITROGEN Canceled LAB CREA(LOINC ) CREATININE Canceled LAB GFRFN(LOIN C) GFR-NON AM. Canceled LAB GFRAA(LOIN C) GFR- AM. Canceled Result Comment: CALCULATIONS OF ESTIMATED GFR ARE PERFORMED USING THE MDRD STUDY EQUATION FOR THE IDMS-TRACEABLE CREATININE METHODS. CLIN CHEM 2007;53:766-72 LAB CA(LOINC) CALCIUM Canceled LAB PHOS(LOINC) PHOSPHORUS Canceled Result Comment: The performance characteristics of phosphorus testing in heparinized plasma have been validated by the individual laboratory site where testing is performed. Testing on heparinized plasma is not approved by the FDA; however, such approval is not necessary. LAB ALB(LOINC) Canceled ALBUMIN Performed By: #### RENAL #### [facility] [address] [place] [address] GLUCOSE-POCT Collected: 04/20/2018 Status: F Source: IDABEL 10:36 PM [facility] REPOSITORY TYPE CODE TESTS RESULT OUT OF RANGE REFERENCE UNITS LAB GLUP(LOINC) 74 - 99 mg/dL High 176 GLUCOSE-POCT Performed By: #### GLUPO #### [facility] [address] [place] [address] GLUCOSE-POCT Collected: 04/20/2018 Status: F Source: IDABEL 5:43 PM [facility] REPOSITORY TYPE CODE TESTS RESULT OUT OF RANGE REFERENCE UNITS LAB GLUP(LOINC) 74 - 99 mg/dL High 137 GLUCOSE-POCT Performed By: #### GLUPO #### [facility] [address] [place] [address] DAILY PROGRESS Observed: 04/20/2018 Status: COMPLETED Source: [facility] NOTE-PULMONOLOGY 5:36 PM HOSPITALS REPOSITORY Service: Pulmonology Subjective Data: DIPESH BERMUDEZ is a 67 year old Male who is Hospital Day # 3. Additional Information: Reported feeling well with no dyspnea or cough. Objective Data: Objective Information: Moshe PRBPSpO2 [id number]/7598% Date/Time04/20 16:00106/21 16: 16: 16: 16:00 Range(36.5C - 36.8C ) (63 - 71 ) (18 - 19 ) (122 - 128 )/ (75 - 80 ) (91% - 98% ) Pain with Activity reported at 04/20 9:20: 0 Pain at Rest reported at 04/20 9:20: 0 Physical Exam: Constitutional: awake, cooperative, dysarthria Eyes: anicteric sclera ENMT: mmm Head/Neck: nc/at Respiratory/Thorax: Patent airways, CTAB, normal breath sounds with good chest expansion, thorax symmetric Cardiovascular: Regular, rate and rhythm, no murmurs, 2+ equal pulses of the extremities, normal S 1and S 2 Gastrointestinal: abd soft nontender, peg tube Extremities: no edema Neurological: awake, alert cooperative, facial droop, right sided hemiparesis Lymphatic: No significant lymphadenopathy Psychological: Appropriate mood and behavior Skin: warm dry, no edema Medication: Medications: Continuous Medications No continuous medications are active Scheduled Medications 1. Atorvastatin: 40 mg Oral Daily 2. Budesonide 0.5 mg/ 2 mL Nebulizer Soln: 2 mL Inhalation Every 12 Hours 3. Cefepime IV Piggy Back: 2 gram(s) IntraVenous Piggyback Every 12 Hours 4. Docusate Oral Liquid: 100 mg Oral 2 Times a Day 5. Enoxaparin SubCutaneous: 40 mg SubCutaneous Every 24 Hours 6. Esomeprazole Oral Packet: 40 mg NasoGastric Tube 2 Times a Day 7. Formoterol 20 microgram/ 2 mL Neb Soln: 2 mL Inhalation Every 12 Hours 8. guaiFENesin Oral Liquid: 400 mg Oral Every 6 Hours 9. Insulin Glargine (Lantus) Injectable: 15 unit(s) SubCutaneous Every 24 Hours 10. Insulin Lispro Mild Corrective Scale: unit(s) SubCutaneous Every 4 Hours 11. Linezolid 600 mg IVPB/ Premixed Soln 300 mL: 300 mL IntraVenous Piggyback Every 12 Hours 12. Saliva Substitute: 15 mL Oral 4 Times a Day 13. Silodosin (NON - Formulary): 8 mg Oral Daily 14. Simethicone Oral Liquid Drops: 80 mg Oral 4 Times a Day After Meals 15. Valproic Acid (Depakene) Oral Liquid: 500 mg PEG Tube <User Schedule> PRN Medications 1. Acetaminophen Oral Liquid: 650 mg Gastrostomy Tube Every 4 Hours 2. Albuterol 2.5 mg/ 3 mL Nebulizer Soln: 3 mL Inhalation Every 6 Hours 3. Dextrose 50% in Water Injectable: 25 gram(s) IntraVenous Push Every 15 Minutes 4. Glucagon Injectable: 1 mg IntraMuscular Every 15 Minutes 5. Polyethylene Glycol: 17 gram(s) Oral Daily Recent Lab Results: Results: I have reviewed these laboratory results: Complete Blood Count + Differential 20-Apr-2018 08:40:00 ResultValue White Blood Cell Count 11.5 H Nucleated Erythrocyte Count 0.0 Red Blood Cell Count 3.97 L HGB 11.5 L HCT 37.5 L MCV 94 MCHC 30.7 L PLT 187 RDW-CV 14.6 H Neutrophil % 75.4 Immature Granulocytes % 1.4 Lymphocyte % 13.3 Monocyte % 7.5 Eosinophil % 1.7 Basophil % 0.7 Neutrophil Count 8.66 H Lymphocyte Count 1.53 Monocyte Count 0.86 Eosinophil Count 0.20 Basophil Count 0.08 Renal Function Panel 20-Apr-2018 08:40:00 ResultValue Glucose, Serum 126 H NA 131 L K 4.7 CL 96 L Bicarbonate, Serum 30 Anion Gap, Serum 10 BUN 26 H CREAT 0.41 L GFR-Non >60 GFR- >60 Calcium, Serum 8.9 Phosphorus, Serum 2.4 L ALB 2.4 L Procalcitonin, Serum 20-Apr-2018 08:40:00 ResultValue Procalcitonin, Serum 0.08 A Assessment and Plan: Assessment: 67 year old man known case of COPD, meningioma s/p resection twice with post-hospitalization course complicated by stroke, dysphagia, PEG placement, recurrent aspiration pneumonia presenting with acute hypoxic respiratory failure which may be related to a recent hospital-acquired pneumonia vs. left lower lobe atelectasis. 1. Recurrent Pneumonia 2. COPD 3. Acute hypoxic respiratory failure 4. Dysphagia Recommend: - Continue Linezolid/Cefepime - Check on sputum culture from [facility] - Awaiting blood cultures - Aggressive bronchial hygiene with Vest and EzPAP q6h - Continue Formoterol and Budesonide by nebulizer - Albuterol as needed by nebulizer - Aspiration precautions - Please obtain CXR tomorrow - Wean down FiO2 to keep SpO2 around 92% Thank you for allowing our service to participate in the patient's care, and please feel free to page at #[phone] for any further questions. Signature/Cosignature/Attestation: Attending AttestationI saw and evaluated the patient. I personally obtained the gonzalez and critical portions of the history and physical exam or was physically present for gonzalez and critical portions performed by the resident/fellow. I reviewed the resident/fellows documentation and discussed the patient with the resident/fellow. I agree with the resident/fellows medical decision making as documented in the resident/fellows note with the exception/addition of the following: I personally evaluated the patient (as noted in the above attestation) on 20-Apr-2018 Comments/ Additional Findings Patient remains stable with stable oxygen needs. Will insure VEST and secretion clearance therapy for mucous , continue ab for possible pneumonia, repeat CXR Electronic Signatures: Jairon Lomas (Fellow)) (Signed 20-Apr-2018 17:39) Authored: Service, Subjective Data, Objective Data, Assessment and Plan, Signature/Cosignature/Attestation Brittany Harrell (DO) (Signed 21-Apr-2018 14:45) Authored: Signature/Cosignature/Attestation Co-Signer: Service, Subjective Data, Objective Data, Assessment and Plan, Signature/Cosignature/Attestation Last Updated: 21-Apr-2018 14:45 by Brittany Harrell (DO) CONSULT-PALLIATIVE CARE Observed: 04/20/2018 Status: COMPLETED Source: [facility] 1:08 PM [facility]OSPITALS REPOSITORY Service: Service: Palliative Care Consult: Consult requested by (Attending Name): Dr. Darren Jennings Reason: Continuity of care History of Present Illness: Admission Reason: Pneumonia HPI: Patient is a 67 y/o man with a recent (02/10-04/03) prolonged hospital stay after initially being admitted for resection of the meningioma and having a recovery complicated by brain stem infarction, aspiration, weak cough, and multiple pneumonias with recurrent mucous plugging, atelectasis, and respiratory failure. When patient was discharged he went to a shelter facility. At the SNF patient developed cough and increasing oxygen requirements. He initially presented to an outside hospital for treatment of presumed pneumonia. Palliative cares consults for continuity of care as patient and family known to palliative from his prior hospital stay. Patient is a poor historian and today found to be disoriented. He could not provide details of what has happened recently, but was able to state that he is not having pain and his breathing feels okay. His only concern was that his sisters may not know where he is. Of note, his sisters did visit and spoke with primary team yesterday. No family at bedside at this time. PMH/PSH hypertension diabetes COPD CYNTHIA meningioma s/p resections (2013, 2018) brainstem stroke recurrent HAP DVT Review Family/Social History and ROS: Review Family/Social History and ROS: I have reviewed the family and social history and review of systems from the History and Physical dated 04/18, no changes. Incomplete ROS: patient's impaired mental status, family not present to provide Allergies: Codeine Sulfate: Unknown penicillin: Unknown Intolerances: Aspir 81: GI Upset Objective: Objective Information: T PRBPSpO2 [id number]/7798% Date/Time04/20 11: 11: 11: 11: 11:32 Range(36.5C - 36.8C ) (63 - 71 ) (18 - 19 ) (122 - 130 )/ (76 - 82 ) (91% - 98% ) Pain with Activity reported at 04/20 9:20: 0 Pain at Rest reported at 04/20 9:20: 0 Physical Exam: Constitutional: patient sitting in bed, talking with providers, comfortable appearing Eyes: Anicteric ENMT: Dry mucous membranes Respiratory/Thorax: Breathing comfortably with supplemental oxygen via nasal canula, no increased work of breathing Cardiovascular: Rapid rate, regular rhythm Gastrointestinal: Soft, no apparent tenderness Extremities: No edema Neurological: Awake and alert, but oriented to self only; able to smile and converse but unable to provide history Psychological: Calm, cooperative Skin: Warm and dry Medications: Medications: Continuous Medications No continuous medications are active Scheduled Medications 1. Atorvastatin: 40 mg Oral Daily 2. Budesonide 0.5 mg/ 2 mL Nebulizer Soln: 2 mL Inhalation Every 12 Hours 3. Cefepime IV Piggy Back: 2 gram(s) IntraVenous Piggyback Every 12 Hours 4. Docusate Oral Liquid: 100 mg Oral 2 Times a Day 5. Enoxaparin SubCutaneous: 40 mg SubCutaneous Every 24 Hours 6. Esomeprazole Oral Packet: 40 mg NasoGastric Tube 2 Times a Day 7. Formoterol 20 microgram/ 2 mL Neb Soln: 2 mL Inhalation Every 12 Hours 8. guaiFENesin Oral Liquid: 400 mg Oral Every 6 Hours 9. Insulin Glargine (Lantus) Injectable: 15 unit(s) SubCutaneous Every 24 Hours 10. Insulin Lispro Mild Corrective Scale: unit(s) SubCutaneous Every 4 Hours 11. Linezolid 600 mg IVPB/ Premixed Soln 300 mL: 300 mL IntraVenous Piggyback Every 12 Hours 12. Saliva Substitute: 15 mL Oral 4 Times a Day 13. Silodosin (NON - Formulary): 8 mg Oral Daily 14. Simethicone Oral Liquid Drops: 80 mg Oral 4 Times a Day After Meals 15. Valproic Acid (Depakene) Oral Liquid: 500 mg PEG Tube <User Schedule> PRN Medications 1. Acetaminophen Oral Liquid: 650 mg Gastrostomy Tube Every 4 Hours 2. Albuterol 2.5 mg/ 3 mL Nebulizer Soln: 3 mL Inhalation Every 6 Hours 3. Dextrose 50% in Water Injectable: 25 gram(s) IntraVenous Push Every 15 Minutes 4. Glucagon Injectable: 1 mg IntraMuscular Every 15 Minutes 5. Polyethylene Glycol: 17 gram(s) Oral Daily Recent Lab Results: Results: I have reviewed these laboratory results: Complete Blood Count + Differential [Drawn 20-Apr-2018 08:40:00], Complete Blood Count + Differential [Drawn 19-Apr-2018 05:47:00], Renal Function Panel [Drawn 20-Apr-2018 08:40:00], Comprehensive Metabolic Panel [Drawn 19-Apr-2018 05:47:00]. Radiology Results: Results: I have reviewed these studies: Xray Chest 1 View [Apr 19 2018 7:55AM] Xray Chest 1 View [Apr 18 2018 9:17PM] Assessment: Patient is a 67 y/o man with a recent (02/10-04/03) prolonged hospital stay after initially being admitted for resection of the meningioma and having a recovery complicated by brain stem infarction, aspiration, weak cough, and multiple pneumonias with recurrent mucous plugging, atelectasis, and respiratory failure. When patient was discharged he went to a shelter facility. At the SNF patient developed cough and increasing oxygen requirements. He initially presented to an outside hospital for treatment of presumed pneumonia. Palliative cares consults for continuity of care as patient and family known to palliative from his prior hospital stay. # Palliative care encounter: family not present at this time; sat with patient and talked; provided reassurance that his sisters would be called (and later found out they had been in the day before and do know where he is); will reach out to family at next opportunity and continue to visit if they are present - supportive listening presence provided - ongoing visits for psychosocial support - will engage remainder of palliative interdisciplinary team as indicated - Please and forearm palliative team if any family meetings are set with patient's nephew and palliative will attend barring conflict Thank you for allowing us to participate in the care of this patient. Palliative Team will continue to follow as needed. Please contact team with any questions or concerns. Pao Engel MD Palliative Care Contact via [employer] for weekday workdays If delayed answer [place] for [place] [phone] Electronic Signatures: Pao Engel) (Signed 20-Apr-2018 15:06) Authored: Service, History of Present Illness, Review Family/Social History and ROS, Allergies, Objective, Assessment/Recommendations, Signature/Cosignature/Attestation Last Updated: 20-Apr-2018 15:06 by Pao Engel) DAILY PROGRESS Observed: 04/20/2018 Status: COMPLETED Source: UNIVERSITY NOTE-MEDICINE 12:14 PM HOSPITALS REPOSITORY Service: Medicine Subjective Data: DIPESH BERMUDEZ is a 67 year old Male who is Hospital Day # 3. Denies any complaints. Objective Data: Objective Information: Moshe PRBPSpO2 [id number]% Date/Time04/20 16: 16: 16: 16: 16:00 Range(36.5C - 36.8C ) (63 - 71 ) (18 - 19 ) (122 - 128 )/ (75 - 80 ) (91% - 98% ) Physical Exam: Constitutional: Lying in bed in NAD Eyes: Clear sclera ENMT: MMM Head/Neck: Craniectomy incision well-approximated Respiratory/Thorax: Nonlabored. Lungs CTA bilaterally. Cardiovascular: RRR. Normal S1/S2. No M/R/G noted. Gastrointestinal: Abdomen soft, nondistended and nontender. +BS. PEG tube intact. Musculoskeletal: REMY Extremities: No peripheral edema Neurological: Alert. Oriented to person and time only. Psychological: Appropriate mood and behavior Skin: Warm and dry; no rashes or lesions Medication: Medications: Continuous Medications No continuous medications are active Scheduled Medications 1. Atorvastatin: 40 mg Oral Daily 2. Budesonide 0.5 mg/ 2 mL Nebulizer Soln: 2 mL Inhalation Every 12 Hours 3. Cefepime IV Piggy Back: 2 gram(s) IntraVenous Piggyback Every 12 Hours 4. Docusate Oral Liquid: 100 mg Oral 2 Times a Day 5. Enoxaparin SubCutaneous: 40 mg SubCutaneous Every 24 Hours 6. Esomeprazole Oral Packet: 40 mg NasoGastric Tube 2 Times a Day 7. Formoterol 20 microgram/ 2 mL Neb Soln: 2 mL Inhalation Every 12 Hours 8. guaiFENesin Oral Liquid: 400 mg Oral Every 6 Hours 9. Insulin Glargine (Lantus) Injectable: 15 unit(s) SubCutaneous Every 24 Hours 10. Insulin Lispro Mild Corrective Scale: unit(s) SubCutaneous Every 4 Hours 11. Linezolid 600 mg IVPB/ Premixed Soln 300 mL: 300 mL IntraVenous Piggyback Every 12 Hours 12. Saliva Substitute: 15 mL Oral 4 Times a Day 13. Silodosin (NON - Formulary): 8 mg Oral Daily 14. Simethicone Oral Liquid Drops: 80 mg Oral 4 Times a Day After Meals 15. Valproic Acid (Depakene) Oral Liquid: 500 mg PEG Tube <User Schedule> PRN Medications 1. Acetaminophen Oral Liquid: 650 mg Gastrostomy Tube Every 4 Hours 2. Albuterol 2.5 mg/ 3 mL Nebulizer Soln: 3 mL Inhalation Every 6 Hours 3. Dextrose 50% in Water Injectable: 25 gram(s) IntraVenous Push Every 15 Minutes 4. Glucagon Injectable: 1 mg IntraMuscular Every 15 Minutes 5. Polyethylene Glycol: 17 gram(s) Oral Daily Recent Lab Results: Results: I have reviewed these laboratory results: Glucose_POCT Trending View [id number] 17:43:00 20-Apr-2018 11:37:00 20-Apr-2018 09:05:00 20-Apr-2018 04:50:00 20-Apr-2018 01:04:00 [id number] H 196 H 146 H 158 H 119 H Complete Blood Count + Differential 20-Apr-2018 08:40:00 ResultValue White Blood Cell Count 11.5 H Nucleated Erythrocyte Count 0.0 Red Blood Cell Count 3.97 L HGB 11.5 L HCT 37.5 L MCV 94 MCHC 30.7 L PLT 187 RDW-CV 14.6 H Neutrophil % 75.4 Immature Granulocytes % 1.4 Lymphocyte % 13.3 Monocyte % 7.5 Eosinophil % 1.7 Basophil % 0.7 Neutrophil Count 8.66 H Lymphocyte Count 1.53 Monocyte Count 0.86 Eosinophil Count 0.20 Basophil Count 0.08 Renal Function Panel 20-Apr-2018 08:40:00 ResultValue Glucose, Serum 126 H NA 131 L K 4.7 CL 96 L Bicarbonate, Serum 30 Anion Gap, Serum 10 BUN 26 H CREAT 0.41 L GFR-Non >60 GFR- >60 Calcium, Serum 8.9 Phosphorus, Serum 2.4 L ALB 2.4 L Procalcitonin, Serum 20-Apr-2018 08:40:00 ResultValue Procalcitonin, Serum 0.08 A Assessment and Plan: Assessment: This is a 67 year old male with history significant for HTN, type II DM, COPD, left lung resection in (for unclear reasons), CYNTHIA, and meningioma s/p craniotomy with resection 2013 (at [facility]) who was recently admitted 02/10/18-04/04/18 for meningioma resection with 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 Admitted to medicine. in a shared visit with Dr. Jennings Suspected HCAP: spoke with microbiology lab at [facility] who verified that sputum culture was not sent. Flu panel from [facility] was negative. One set of blood cultures were sent at [facility] and is negative to date. Blood cultures from [facility] negative to date. - consulted pulmonology - consulted palliative care to assist with conversations on plan of care (previously saw him during prior hospitalization) - continue linezolid and cefepime per recommendations - follow up blood cultures from [facility] and [facility] - send sputum culture - wean supplemental 02 as tolerated (he is not normally on 02) - bronchial hygiene - will repeat chest x-ray tomorrow Initial concern for atrial fibrillation: unclear if this was the case as ECG was of poor quality. Repeat ECG at noted sinus rhythm with 1st degree AV block. No atrial fibrillation has been noted on telemetry. - continue to monitor telemetry COPD: - continue inhaled formoterol and budesonide - hold off with Advair as he can't follow directions enough to take this - continue PRN albuterol nebulizer treatments Recent midline related right brachial DVT: - prior midline was removed during last hospitalization; therapeutic anticoagulation was not initiated - per records at SNF, planning for repeat US on 05/04/18 Dysphagia s/p PEG tube placement: - speech therapy recommending NPO status and MBS (which will be tomorrow; canceled today) - continue Diabetic Source tube feedings and free water flushes Grade D esophagitis: - continue PPI BID (plan was for him to be on this for 3 months following EGD on 02/21/18) - arranged for outpatient GI follow up on 06/06/18 HTN: BP controlled - will consider starting antihypertensive if indicated Type II DM: - continue Lantus 15 units daily (home dose 30 units daily); will consider increasing dose tomorrow - continue Lispro sliding scale with hypoglycemia protocol CYNTHIA: - continue CPAP DVT prophylaxis: - enoxaparin Miscellaneous: - continue home valproic acid Code status: - DNAR/DNI Discharge disposition: was at SNF prior to going to [facility]. Nephew Donta reporting that pt has mild cognitive deficits at baseline and has a low IQ. - PT recommending SNF - nephew Donta would like him to return to prior SNF - updated nephbibiana Macias on plan of care via telephone - anticipate discharge back to SNF by the end of the week Nutrition Diagnosis: Nutrition Diagnosis Agree with dietitians assessment and diagnoses as stated. Moderate protein calorie malnutrition related to recent complicated post-op course as evidence by mild muscle wasting to temples, shoulders and clavicles, mild fat loss to orbital pads and biceps, and significant weight loss of 15% x ~ 2 months. Signature/Cosignature/Attestation: Attending Only - Shared Visit with Advanced Practice ProviderThis is a shared visit. I have reviewed the Advanced Practice Providers encounter note, approve the Advanced Practice Providers documentation, and provide the following additional information from my personal encounter. Comments/ Additional Findings Patient see and examined with the HANDLE SANDER OPERATOR today. Agree with the above exam and assessment/ plan. Patient seems to be upset about his new room today (moved to a telemetry floor) but otherwise no complaints. States breathing okay. Gen: NAD HEENT: facial droop CV: RRR Pulm: CTAB, on 2L NC GI: soft, non-tender Ext: no pitting edema 67 year old male with a past medical history of COPD, CYNTHIA, DM-II, meningioma s/p resection in 2013 with recurrence, and recent admission (from 02/10/18-04/04/18) for repeat resection with hospital course complicated by brainstem infarction, dysphagia (now s/p PEG), line associated DVT, and multiple HAP (MRSA and Pseudomonas) and recurrent mucous plugging, atelectasis requiring aggressive respiratory management that was discharged to SNF. On 04/18/18 patient was found at SNF to be tachycardic and hypoxic so transferred to OSH. At OSH ED that was concern for LLL PNA on CXR so he was started on broad spectrum abx and transferred to [facility] on 04/18/18 due to for further care. Hypoxic Respiratory Failure/ Concern for LLL PNA: - given history concern for recurrent aspiration even - continue on linezolid and cefapime (day #3 of abx) - pulmonary consulted - repeat CXR tomorrow - aggressive respiratory therapy per pulm/ respirtory recs - f/u cultures from OSH (blood no growth and sputum canceled) - blood culture from admission to [facility] - >NGTD - wean oxygen as tolerated Tachycardia: - resolved - EKG at OSH showed sinus tach with multiple PACs and some PVCs Dysphagia: - speech consulted - plan for MBS tomorrow - continue NPO and tube feeds for now Meningioma 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: - continue valproic acid COPD: - does not appear to be in exacerbation - continue inhalers CYNTHIA: - continue CPAP DM: - Lantus 15U daily (1/2 home dose) and ISS Diet: - tube feeds Ppx: - Lovenox subcutaneous Electronic Signatures: Kimberly Singer) (Signed 24-Apr-2018 07:46) Authored: Signature/Cosignature/Attestation Co-Signer: Service, Subjective Data, Objective Data, Assessment and Plan, Signature/Cosignature/Attestation Brooke Mullen ([facility]) (Signed 20-Apr-2018 18:46) Authored: Service, Subjective Data, Objective Data, Assessment and Plan, Signature/Cosignature/Attestation Last Updated: 24-Apr-2018 07:46 by Kimberly Singer) GLUCOSE-POCT Collected: 04/20/2018 Status: F Source: IDABEL 11:37 AM [facility] REPOSITORY TYPE CODE TESTS RESULT OUT OF RANGE REFERENCE UNITS LAB GLUP(LOINC) 74 - 99 mg/dL High 196 GLUCOSE-POCT Performed By: #### GLUPO #### [facility] [address] [place] [address] GLUCOSE-POCT Collected: 04/20/2018 Status: F Source: IDABEL 9:05 AM [facility] REPOSITORY TYPE CODE TESTS RESULT OUT OF RANGE REFERENCE UNITS LAB GLUP(LOINC) 74 - 99 mg/dL High 146 GLUCOSE-POCT Performed By: #### GLUPO #### [facility] [address] [place] [address] CBC AND DIFFERENTIAL Collected: 04/20/2018 Status: F Source: IDABEL 8:40 AM HOSPITALS REPOSITORY TYPE CODE TESTS RESULT OUT OF REFERENCE UNITS RANGE LAB WBCR(LOINC 4.4 - 11.3 x10E9/L ) WBC High 11.5 LAB NRBC(LOINC 0.0-0.0 /100 WBC ) NUCLEATED RBC 0.0 LAB RBCCT(LOIN 4.50 - 5.90 x10E12/L C) Low RBC 3.97 LAB HGB(LOINC) 13.5 - 17.5 g/dL Low HGB 11.5 LAB HCT(LOINC) 41.0 - 52.0 % Low HCT 37.5 LAB MCV(LOINC) 80 - 100 fL MCV 94 LAB MCHC2(LOIN 32.0 - 36.0 g/dL C) Low MCHC 30.7 LAB PLTCT(LOIN 150 - 450 x10E9/L C) PLT 187 LAB RDWCV(LOIN 11.5 - 14.5 % C) RDW-CV High 14.6 LAB NEUT(LOINC 40.0 - 80.0 % ) % NEUTROPHIL 75.4 LAB IG(LOINC) 0.0 - 0.9 % % AUTOMATED 1.4 IMMATURE GRAN Result Comment: Percent differential counts (%) should be interpreted in the context of the absolute cell counts (cells/L). LAB LYMPH(LOINC) 13.0 - % 44.0 % LYMPHOCYTE 13.3 LAB MONO(LOINC) 2.0 - 10.0 % % MONOCYTE 7.5 LAB EOS(LOINC) 0.0 - 6.0 % % EOSINOPHIL 1.7 LAB BASO(LOINC) 0.0 - 2.0 % % BASOPHIL 0.7 LAB #NEUT(LOINC) 1.20 - x10E9/L 7.70 NEUTROPHIL High 8.66 LAB #LYMP(LOINC) 1.20 - x10E9/L 4.80 LYMPHOCYTE 1.53 LAB #MONO(LOINC) 0.10 - x10E9/L 1.00 MONOCYTE 0.86 LAB #EOS(LOINC) 0.00 - x10E9/L 0.70 EOSINOPHIL 0.20 LAB #BASO(LOINC) 0.00 - x10E9/L 0.10 BASOPHIL 0.08 Performed By: #### CBCDF #### [facility] [address] [place] [address] RENAL FUNCTION PANEL Collected: 04/20/2018 Status: F Source: IDABEL 8:40 AM [facility]OSPITALS REPOSITORY TYPE CODE TESTS RESULT OUT OF REFERENCE UNITS RANGE LAB GLU(LOINC) 74 - 99 mg/dL GLUCOSE High 126 LAB SOD(LOINC) 136 - 145 mmol/L Low SODIUM 131 LAB K(LOINC) 3.5 - 5.3 mmol/L POTASSIUM 4.7 LAB CHLOR(LOIN 98 - 107 mmol/L C) Low CHLORIDE 96 LAB BIC(LOINC) 21 - 32 mmol/L BICARBONATE 30 LAB ANGAP(LOIN 10 - 20 mmol/L C) ANION GAP 10 LAB UREA(LOINC 6 - 23 mg/dL ) UREA High NITROGEN 26 LAB CREA(LOINC 0.50 - 1.30 mg/dL ) Low CREATININE 0.41 LAB GFRFN(LOIN >60 mL/min/1.7 C) 3m2 GFR-NON AM. >60 LAB GFRAA(LOIN >60 mL/min/1.7 C) 3m2 GFR- AM. >60 Result Comment: CALCULATIONS OF ESTIMATED GFR ARE PERFORMED USING THE MDRD STUDY EQUATION FOR THE IDMS-TRACEABLE CREATININE METHODS. CLIN CHEM 2007;53:766-72 LAB CA(LOINC) 8.6 - 10.6 mg/dL CALCIUM 8.9 LAB PHOS(LOINC) 2.5 - 4.9 mg/dL PHOSPHORUS Low 2.4 Result Comment: The performance characteristics of phosphorus testing in heparinized plasma have been validated by the individual laboratory site where testing is performed. Testing on heparinized plasma is not approved by the FDA; however, such approval is not necessary. LAB ALB(LOINC) 3.4 - 5.0 g/dL Low ALBUMIN 2.4 Performed By: #### RENAL #### [facility] [address] [place] [address] PROCALCITONIN Collected: 04/20/2018 Status: F Source: IDABEL 8:40 AM [facility]OSPITALS REPOSITORY TYPE CODE TESTS RESULT OUT OF RANGE REFERENCE UNITS LAB PCALC(SHAKEEL <=0.07 ng/mL NC) PROCALCITONIN Abnormal 0.08 Result Comment: Note new reference range and methodology as of 06/29/2017. . Procalcitonin (PCT) results measured serially can aid in decision-making for antibiotic discontinuation in patients with suspected or confirmed sepsis in conjunction with additional clinical information. Antibiotic discontinuation may be considered with a change in PCT of >80% from the peak result or when PCT falls below 0.50 ng/mL. . Procalcitonin results should not be used in isolation but should be interpreted in conjunction with additional clinical and laboratory findings. Procalcitonin results should not be used to guide the initiation of antibiotic therapy. . Falsely low PCT values in the presence of bacterial infection may occur in early infection, with atypical pathogens, localized infections, and subacute infectious endocarditis. . Falsely elevated results outside of severe bacterial infection/sepsis may be seen in patients with renal failure or insufficiency, severe trauma or chao, recent major abdominal/cardiac surgery, acute multi-organ failure, rarely in patients with medullary thyroid carcinoma and rare neuroendocrine tumors, and non-specific interfering antibodies (heterophile antibodies, rheumatoid factor, human anti-mouse antibodies (HAMA), etc). . Performance of the PCT test in pediatric patients (<18yo), women, immunocompromised patients, and patients on immunomodulatory medications has not been evaluated. Performed By: #### PCALC #### [facility] [address] [place], [place] [id number] EMR ADDON Collected: 04/20/2018 Status: F Source: IDABEL 8:28 AM [facility] REPOSITORY TYPE CODE TESTS RESULT OUT OF REFERENCE UNITS RANGE LAB EMRAC(LOIN C) ADDON CONFIRMATION REQUEST REC'D Performed By: #### EMRAD #### NO LOCATION NEEDED GLUCOSE-POCT Collected: 04/20/2018 Status: F Source: IDABEL 4:50 AM [facility] REPOSITORY TYPE CODE TESTS RESULT OUT OF RANGE REFERENCE UNITS LAB GLUP(LOINC) 74 - 99 mg/dL High 158 GLUCOSE-POCT Performed By: #### GLUPO #### [facility] [address] [employer] [facility] [employer] [facility] [place] [address] GLUCOSE-POCT Collected: 04/20/2018 Status: F Source: IDABEL 1:04 AM [facility] REPOSITORY TYPE CODE TESTS RESULT OUT OF RANGE REFERENCE UNITS LAB GLUP(LOINC) 74 - 99 mg/dL High 119 GLUCOSE-POCT Performed By: #### GLUPO #### [facility] [address] [employer] [facility] [place] [address] DISCHARGE PROFILE2 Observed: 04/19/2018 Status: UNK Source: IDABEL 8:43 PM [facility]OSPITALS REPOSITORY Discharge Orders: Anticipated Discharge Date: Anticipated Discharge [id number] Anticipated Discharge Time15:20 Problem List: Additional Dx: Respiratory failure with hypoxia: Catalog Name: Respiratory failure, unspecified with hypoxia Hyponatremia: Catalog Name: Hypo-osmolality and hyponatremia Bacteremia: Catalog Name: Bacteremia buttermaker continuous churn current use of insulin: Catalog Name: buttermaker continuous churn (current) use of insulin Type 2 diabetes mellitus without complication: Catalog Name: Type 2 diabetes mellitus without complications COPD (chronic obstructive pulmonary disease): Catalog Name: Chronic obstructive pulmonary disease, unspecified Pneumonia: Catalog Name: Pneumonia, unspecified organism 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 Acute respiratory failure with hypoxia and hypercapnia: Catalog Name: Acute respiratory failure with hypoxia COPD with chronic bronchitis and emphysema: Catalog Name: Chronic obstructive pulmonary disease, unspecified Dysphagia: Catalog Name: Dysphagia, unspecified Type 2 diabetes mellitus: Catalog Name: Type 2 diabetes mellitus Medical History: Meningioma: Catalog Name: Benign neoplasm of meninges, unspecified COPD (chronic obstructive pulmonary disease): Catalog Name: Chronic obstructive pulmonary disease, unspecified Type II diabetes mellitus: Catalog Name: Type 2 diabetes mellitus without complications HTN (hypertension): Catalog Name: Essential (primary) hypertension Prelim Disch Dx: Positive blood culture: Catalog Name: Bacteremia Respiratory failure with hypoxia: Catalog Name: Respiratory failure, unspecified with hypoxia COPD without exacerbation: Catalog Name: Chronic obstructive pulmonary disease, unspecified Pneumonia: Catalog Name: Pneumonia, unspecified organism Aspiration pneumonia due to food (regurgitated): Catalog Name: Pneumonitis due to inhalation of food and vomit Hospital Providers: Provider RoleProvider Name Pao Chau Helen E ConsultingPalliative Care ConsultingPulmonary Consult Kimberly Carson Willem Henry DNAR: DNAR StatusDNAR + additional limitations DNI Activity: activity with assistance. Weight-bearing Instructions: weight-bearing as tolerated. Diet: Dietnothing by mouth Enteral Feeding: Enteral Feedingyes Tube Feeding ProductDiabetic Source AC, 150 ml water flush four times daily Feeding RoutePEG (percutaneous Endoscopic Gastric) Frequency of Feedingcontinuous [id number] cc/hr Drain/Tube Care 1: TypeGT (Gastrostomy Tube) Cleanse Withsodium chloride 0.9% Frequencydaily Other Instructionscover with drain gauze Mechanical Ventilation: Ventilation TypeCPAP auto 4-20 Frequencycontinuous O2 LPM (Liters per Minute) or FIO20.21 Delivery DeviceRT discretion Additional Orders: Blood Glucose Monitoringevery 6 hours Vital Signsdaily Additional Instructions Follow up repeat ultrasound 05/04 (as reported scheduled prior to admission) for history of right brachial DVT Repeat Modified Barium swallow in 2-3 months recommended Daily Care for PEG tube: - Inspect skin for redness, tenderness, swelling, drainage or gastric leakage. - Inspect tube for inward or outward movement. The ink brooke should be at skin level. - Cleanse skin with antibacterial soap and water. Dry thoroughly. Gentle manipulations of tube are not harmful, but take care not to push or pull tube out of position. If tube has a disk or crossbar, clean underneath with cotton tip applicator. - Use half- strength hydrogen peroxide to remove crusts, if present. Rinse with water. Repeat up to 2-3 times per day as needed. - Avoid a dressing in most cases: dressings may promote skin breakdown and infection. If a dressing is used, change immediately if it becomes wet. - Secure the tube underneath clothing to prevent movement. Excess tension can cause damage to the stomach lining or enlarge the opening in the stomach. Make sure the tube does not lay flat against the skin all the time. - T- bar or cross-piece should rest gently against the skin without dimpling it when you are in a position of comfort. If it leaves an impression on the skin, its too tight. There should be some room for cleaning under it and around the tube. If necessary, rotate bar to relieve pressure. If the bar seems to be too tight, you should contact your physician. It may become tight if you gain weight. - Rotate cross- piece of a turn daily to avoid skin breakdown. Perform this after cleaning the area. When should I call my doctor Signs and Symptoms for infection - Chills or temperature over 100.5 - Redness, swelling, increased pain, or foul smelling drainage around the tube. - Contact your physician immediately or go to the emergency room if tube falls out within the first 2 weeks after placement. - The tube must be replaced within 2 to 3 hours or the opening leading to your stomach may close. - Bring your tube with you. Cover skin opening with a dry gauze or cloth. - If tube falls out over 2 weeks after placement: it should be replaced within 12 hours Abdominal bloating, nausea, cramps, vomiting or diarrhea. -Unable to do feedings. -Increasing size of the hole into your stomach. - The crosspiece is making a sore at the skin. - Change in overall health: significant weight change, weakness, less urine. - Any new, unexplained symptoms. - If you are unable to solve any problems Call Provider If (Homegoing Patients): Breathing harder than normal or having retractions. Temperature is greater than 102 degrees. Chills. Acting very sleepy and difficult to awaken. Vomiting (throwing up) and not able to eat or drink for 12 hours. 3 or more loose, watery bowel movements in 24 hours (diarrhea). Any new concerning symptoms. Hospital Course (Home Care/Gold Form): Hospital Course: Hospital Course: include significant abnormal lab values This is a 67 year old male with history significant for HTN, type II DM, COPD, left lung resection in (for unclear reasons), CYNTHIA, and meningioma s/p craniotomy with resection 2013 (at [facility]) who was recently admitted 02/10/18-04/04/18 for meningioma resection with postop course complicated by brainstem infarction, dysphagia requiring PEG placement, grade D esophagitis (noted on EGD 02/21/18), midline-related right brachial DVT, multiple bouts of aspiration with left lung collapse (grew MRSA and 2 different strains of pseudomonas; was previously on several antibiotics, but most recently completed course of levofloxacin on 04/04/18) who was transferred from [facility] for further management of suspected HCAP. He was admitted to medicine service and continued on cefepime and linezolid. Pulmonology and palliative care consulted. Speech therapy consulted and patient failed MBS study, unchanged from previous study and NPO status with enteral PEG feedings maintained. Recommended that MBS not need to be repeated for at least 2-3 months given brainstem infarction as this often can take 6 months for recovery. Pulmonary consult impression indicated recurrent pneumonia most likely due to recurrent aspiration, COPD without exacerbation, acute hypoxic respiratory failure, and dysphagia. Chest CT repeated 04/22 showed bronchial wall thickening predominantly in lower lobes LLL tree in bud opacity, bronchiolitis/ small airway disease likely infectious in etiology and recommended to continue bronchial pulmonary hygiene along with antibiotics for two week course. [facility] [facility] microbiology lab reported 04/18 blood culture(1 set done) aerobic vial growth postitive for Brevundimonas Diminuta, roman sensitive. [facility] blood culture 04/18 showing no growth to date. ID consulted for evaluation of OSH blood culture results. Cefepime and linezolid stopped and Ceftriaxone started for 10 day total course with stop date 04/27. Plan for levofloxacin if patient discharged prior to completing ceftriaxone course. 04/28:Pt has been on room air since 04/27 with oxygen saturations of 92-96% on room air. Patient has had 2 soft stools in the last 24 hours with no evidence of blood. Patient's CBC on 04/28 showed an elevated white blood cell count of 13.5. Hemoglobin, hematocrit, and platelets, all within normal limits. Patient's white blood cell count on April 27 was 13.4 on April 26 was 13.1. Patient had a white blood cell count of 16.1 on March 29 and has recently been running in the 12-13 range primarily. The patient basic metabolic panel on 04/28 revealed a glucose of 143, sodium was slightly low at 134 but improved from yesterday when it was 131. Patient's chloride was low at 95 and the BUN was high at 31 but the creatinine was normal at 0.54. The BUN was also 31 yesterday on 04/27. We did order a 500 cc normal saline bolus. Patient's chest x-ray today revealed subtle bibasilar and retrocardiac air space opacities which could be atelectatic changes versus infection/aspiration. Patient has repeat blood cultures, repeat urinalysis and urine culture, and repeat morning labs pending. Apparently the patient nephew was requesting that his antibiotics be extended however this is not recommended and Dr. Jennings was to call him and discuss this today. Patient completed a 10 day course of ceftriaxone on 04/27, it had been recommended by infectious disease. Prior to that the patient was on cefepime and Linezolid. At this time there does not appear to be an indication to give more antibiotics however we will review the blood cultures, urinalysis, CBC, etc. and those results are available. 04/30: Patient's CBC today reveals a decreased white blood cell count 11.8, H&H, and platelets were within normal limits. Overall the CBC is improved from the prior study. The renal function panel is within normal limits other than a glucose of 173, BUN of 37, creatinine low at 0.44, and albumin low at 2.7. We discussed all the findings result etc. and ID consult recommendations with the patient's nephew Donta. He is pleased about the downtrend of the WBC count and agrees with the plan for patient to return to [facility] in [place], [place]. Infectious Disease: PPD Statusnot given MRSAno VREno C. Diffno Other Resistant Organismno Isolation Typenone Gold Form Orders: Care Recommendation: I recommend that INPATIENT care is required at:Skilled Estimated StayConvalescent stay < 30 days PrognosisGood Rehab Potential/FunctionImprove Provider CertificationI certify that inpatient care is required at the level recommended above. To the best of my knowledge, all information provided about the individual is a true and accurate reflection of the individual's condition. Therapy Orders: Occupational Therapy OrdersEval and Treat ([facility]) daily Physical Therapy OrdersEval and Treat ([facility]) daily Speech Therapy OrdersEval and Treat ([facility]) 1-3 times/week Provider Follow Up: Physician To Follow at Skilled/RehabAttending Phys[facility] Provider FINAL REVIEW of Orders: Final Review: Final Review of Medication Reconciliation and Orders Completedby Physician Reviewing ProviderPhoenix Harding MD at 02-May-2018 15:20:38 Appointments: Follow-Up Appointment 01: Physician/Dept/ServiceDr. Christian Silva, Gastroenterology Scheduled Date/[id number] 10:[address] [place] [address] Phone [phone] CommentsPlease arrive 10-15 minutes early, bring photo ID, insurance cards, discharge summary, and a list of current medications. Please call the office if you need to change this appointment. Gold Form - Nursing Summary: Special Treatments/Procedures (in past 14 days): Chemotherapyno Dialysisno IV Medicationno Oxygen Therapyno Transfusionsno Feverno Radiationno Ventilatorno Tracheostomyno Suctioningno Nutrition: Nutritional Statusdysphagia, feeding tube Feeding Tube TypePEG Nutrition CommentDiabetic source AC IV Hydration: Additional IV InformationNo Iv Sensory/Comfort: Visionadequate Hearingadequate Speechdifficult, garbled Language Neededenglish Elimination: Bladderincontinent Bowelincontinent Toiletingdiapered Safety: Siderailsyes Siderails Number/Reason2 Restraintsno Sitterno Fall Riskweakness Medication/Hygiene/Mobility: Medication Administrationtotal dependent Bathingtotal dependent Dressingtotal dependent Bed Mobilitytotal dependent Wheelchairtotal dependent Transferstotal dependent Ambulationtotal dependent Pressure Ulcer 1: Locationcoccyx StageStage 1 Appearancered Tunneling/Sinus Tractnone Dressingmepilex Dressing Change Frequencydaily/prn Electronic Signatures: Mora Kam (RN) (Signed 02-May-2018 01:30) Authored: Gold Form - Nursing Summary Jr Jacobs ([facility]) (Signed 02-May-2018 11:39) Authored: Discharge Orders, Hospital Course (Home Care/Gold Form), Provider FINAL REVIEW of Orders Porfirio Gonzalez ([facility]) (Signed 24-Apr-2018 22:26) Authored: Discharge Orders, Hospital Course (Home Care/Gold Form), Gold Form Orders Nam Muro ([facility]) (Signed 01-May-2018 13:25) Authored: Discharge Orders, Hospital Course (Home Care/Gold Form), Provider FINAL REVIEW of Orders Phoenix Harding) (Signed 02-May-2018 15:20) Authored: Discharge Orders, Provider FINAL REVIEW of Orders Brooke Mullen ([facility]) (Signed 20-Apr-2018 21:59) Authored: Discharge Orders, Hospital Course (Home Care/Gold Form), Gold Form Orders, Gold Form - Media Production Operator Summary Constantine Ji ([facility]) (Signed 26-Apr-2018 12:44) Authored: Discharge Orders, Gold Form Orders Ladonna Griffin (PT [facility]) (Signed 20-Apr-2018 08:40) Authored: Appointments Last Updated: 02-May-2018 15:20 by Phoenix Harding) CONSULT-PULMONOLOGY Observed: Status: COMPLETED Source: IDABEL 04/19/2018 8:12 PM HOSPITALS REPOSITORY Service: Service: Pulmonology Consult: Consult requested by (Attending Name): Dr. Kimberly Jennings Reason: Possible pneumonia History of Present Illness: HPI: 67 year old man known case of meningioma s/p recent repeat resection at [facility] with a prolonged hospital course complicated by a brainstem infarct and multiple HAP (MRSA and Pseudomonas) and recurrent mucous plugging, atelectasis, and respiratory failure presenting with concern for pneumonia. The patient started experiencing desaturations at current [facility], so he was transferred to nearby hospital. His labs showed WBC 17 and CXR showed a left lower lobe infiltrate, so he was started on Zosyn. The patient was transferred here, the time of which his antibiotics were broadened to Linezolid and Cefepime. On interview, the patient reported feeling well overall. He denied any dyspnea. Described chronic cough, but denied any sputum production. He also denied any fever, chills, nausea, or vomiting. Past Medical/Surgical History: HTN COPD DM CYNTHIA Meningioma s/p resection X 2 Brainstem stroke Recurrent HAP DVT Social History: Former smoker Denied alcohol or illicit drugs Lives at Longterm Family History: Unable to obtain Review Family/Social History and ROS: Incomplete ROS: patient's impaired mental status, family not present to provide Allergies: Codeine Sulfate: Unknown penicillin: Unknown Intolerances: Aspir 81: GI Upset Objective: Objective Information: T PRBPSpO2 [id number]/8293% Date/Time04/19 16:10106/20 16: 16:10106/20 16:10106/20 16:10 Range(35.9C - 36.6C ) (71 - 91 ) (16 - 18 ) (129 - 134 )/ (82 - 86 ) (92% - 96% ) Physical Exam: Constitutional: awake, cooperative, dysarthria Eyes: pupils +3 equal reactive to light ENMT: mucous membrane dry, white coated tongue Head/Neck: nc/at Respiratory/Thorax: Patent airways, CTAB, normal breath sounds with good chest expansion, thorax symmetric Cardiovascular: Regular, rate and rhythm, no murmurs, 2+ equal pulses of the extremities, normal S 1and S 2 Gastrointestinal: abd soft nontender, peg tube Extremities: no cyanosis edema, contusions or wounds, no clubbing Neurological: awake, alert cooperative, facial droop, right sided hemiparesis Lymphatic: No significant lymphadenopathy Psychological: Appropriate mood and behavior Skin: warm dry, no edema Medications: Medications: Continuous Medications No continuous medications are active Scheduled Medications 1. Atorvastatin: 40 mg Oral Daily 2. Budesonide 0.5 mg/ 2 mL Nebulizer Soln: 2 mL Inhalation Every 12 Hours 3. Cefepime IV Piggy Back: 2 gram(s) IntraVenous Piggyback Every 12 Hours 4. Docusate Oral Liquid: 100 mg Oral 2 Times a Day 5. Enoxaparin SubCutaneous: 40 mg SubCutaneous Every 24 Hours 6. Esomeprazole Oral Packet: 40 mg NasoGastric Tube 2 Times a Day 7. Formoterol 20 microgram/ 2 mL Neb Soln: 2 mL Inhalation Every 12 Hours 8. guaiFENesin Oral Liquid: 400 mg Oral Every 6 Hours 9. Insulin Glargine (Lantus) Injectable: 15 unit(s) SubCutaneous Every 24 Hours 10. Insulin Lispro Mild Corrective Scale: unit(s) SubCutaneous Every 4 Hours 11. Linezolid 600 mg IVPB/ Premixed Soln 300 mL: 300 mL IntraVenous Piggyback Every 12 Hours 12. Saliva Substitute: 15 mL Oral 4 Times a Day 13. Silodosin (NON - Formulary): 8 mg Oral Daily 14. Simethicone Oral Liquid Drops: 80 mg Oral 4 Times a Day After Meals 15. Valproic Acid (Depakene) Oral Liquid: 500 mg PEG Tube <User Schedule> PRN Medications 1. Acetaminophen Oral Liquid: 650 mg Gastrostomy Tube Every 4 Hours 2. Albuterol 2.5 mg/ 3 mL Nebulizer Soln: 3 mL Inhalation Every 6 Hours 3. Dextrose 50% in Water Injectable: 25 gram(s) IntraVenous Push Every 15 Minutes 4. Glucagon Injectable: 1 mg IntraMuscular Every 15 Minutes 5. Polyethylene Glycol: 17 gram(s) Oral Daily Recent Lab Results: Results: I have reviewed these laboratory results: Comprehensive Metabolic Panel 19-Apr-2018 05:47:00 ResultValue Glucose, Serum 97 NA 131 L K 4.6 CL 96 L Bicarbonate, Serum 28 Anion Gap, Serum 12 BUN 26 H CREAT 0.53 GFR-Non >60 GFR- >60 Calcium, Serum 9.4 ALB 2.8 L ALKP 82 T Pro 5.9 L T Bili 0.4 Alanine Aminotransferase, Serum 24 Aspartate Transaminase, Serum 17 Complete Blood Count + Differential 19-Apr-2018 05:47:00 ResultValue White Blood Cell Count 11.3 Nucleated Erythrocyte Count 0.0 Red Blood Cell Count 4.56 HGB 13.4 L HCT 41.1 MCV 90 MCHC 32.6 PLT 184 RDW-CV 14.8 H Neutrophil % 71.0 Immature Granulocytes % 1.4 Lymphocyte % 18.3 Monocyte % 7.7 Eosinophil % 1.1 Basophil % 0.5 Neutrophil Count 8.04 H Lymphocyte Count 2.07 Monocyte Count 0.87 Eosinophil Count 0.13 Basophil Count 0.06 Culture, Blood Trending View [id number] 23:56:00 18-Apr-2018 23:55:00 Culture, BloodNEGATIVE TO DATE, CULTURE IN PROGRESS. NEGATIVE TO DATE, CULTURE IN PROGRESS. Radiology Results: Results: Impression: 1. Unchanged left basilar retrocardiac opacity, likely representing combination of atelectasis and small pleural effusion with or without superimposed consolidation. 2. No pneumothorax. Xray Chest 1 View [Apr 19 2018 7:55AM] Assessment: 67 year old man known case of COPD, meningioma s/p resection twice with post-hospitalization course complicated by stroke, dysphagia, PEG placement, recurrent aspiration pneumonia presenting with acute hypoxic respiratory failure which may be related to a recent hospital-acquired pneumonia vs. left lower lobe atelectasis. 1. Recurrent Pneumonia - likely 2. COPD 3. Acute hypoxic respiratory failure 4. Dysphagia Recommend: - Agree with empiric antibiotics (Linezolid/Cefepime) - Awaiting blood cultures - Please obtain sputum cultures if positive - Please obtain serum procalcitonin - Aggressive bronchial hygiene with Metaneb q6h - Continue Formoterol and Budesonide by nebulizer - Albuterol as needed by nebulizer - Aspiration precautions - Will continue to follow Thank you for allowing our service to participate in the patient's care, and please feel free to page at #[phone] for any further questions. Signature/Cosignature/Attestation: Attending AttestationI saw and evaluated the patient. I personally obtained the gonzalez and critical portions of the history and physical exam or was physically present for gonzalez and critical portions performed by the resident/fellow. I reviewed the resident/fellows documentation and discussed the patient with the resident/fellow. I agree with the resident/fellows medical decision making as documented in the resident/fellows note with the exception/addition of the following: I personally evaluated the patient (as noted in the above attestation) on 19-Apr-2018 Comments/ Additional Findings Given patient's previous course would consider additional secretion clearance by addition of vest therapy. Electronic Signatures: Jairon Lomas (Fellow)) (Signed 19-Apr-2018 20:31) Authored: Service, History of Present Illness, Review Family/Social History and ROS, Allergies, Objective, Assessment/Recommendations, Signature/Cosignature/Attestation Brittany Harrell (DO) (Signed 21-Apr-2018 14:14) Authored: Assessment/Recommendations, Signature/Cosignature/Attestation Co-Signer: Service, History of Present Illness, Review Family/Social History and ROS, Allergies, Objective, Assessment/Recommendations, Signature/Cosignature/Attestation Last Updated: 21-Apr-2018 14:14 by Brittany Harrell (DO) GLUCOSE-POCT Collected: 04/19/2018 Status: F Source: IDABEL 4:47 PM [facility] REPOSITORY TYPE CODE TESTS RESULT OUT OF RANGE REFERENCE UNITS LAB GLUP(LOINC) 74 - 99 mg/dL High 101 GLUCOSE-POCT Performed By: #### GLUPO #### [facility] [address] [place] [address] SWALLOW EVALUATION Observed: 04/19/2018 Status: UNK Source: IDABEL V2-BEDSIDE CLINICAL 2:55 PM HOSPITALS REPOSITORY SWALLOW, MANAGER PROCESS IMPROVEMENT Rehab: Info: Mode of TreatmentSpeech-Language Pathology Time IN14:00 Time OUT14:40 Total Treatment [id number] Patient in ... at end of sessionbed, 4 railings up Evaluation TypeBedside Clinical Swallow, MANAGER PROCESS IMPROVEMENT Patient Effortfair Symptoms Noted During/After Treatmentshortness of breath Patient Profile Reviewedyes Onset of Illness/Injury or Date of [id number] Reason for ReferralPneumonia Referring PhysicianMahsa Mar General Observations of PatientCooperative; Confused: IV lines; O2 via NC Pertinent History of Current Functional Iqqscus57 y/o male with PMH of HTN, type II DM, COPD, left lung resection ( for unclear reasons), CYNTHIA refuses treatment, and meningioma s/p craniotomy with resection 2013 (at [facility]) here as transfer from [facility] for treatment of pneumonia. Patient recently had a prolonged hospital stay from 02/10 04/03 when he came for a repeat surgical resection of his meningioma. The post-operative course was complicated by dysphagia and aspiration pneumonia, as well as brainstem infarct. Patient received vanc/zosyn but without a resolution of leukocytosis until he was transitioned to linezolid for pneumonia with MRSA growing in sputum, and then later was started on a brief course of Levaquin for sputum growing pseudomonas (03/21-04/04). He had multiple episodes of desaturation requiring CPAP and aggressive chest physiotherapy. Patient was eventually discharged to SNF on 2L NC. While at SNF, patients labs were stable, he states he was participating in physical therapy as best as he could and that he did not have any issues. States he continued to cough up clear sputum, and denies any fevers or chills. However, he endorses approximately 4-5 days of muscle aches and fatigue. In the ED: VS T 36.0 P 109 BP 141/104 R 18 96% SpO2 on 2L NC Labs: CBC 17.1/13.4/236 BMP 132/4.8/97/31/30/0.53 Lactate 1.0 Imaging: CXR w/ increased interstitial marking over left lung and base Intervention: Given 1L NS bolus, 3.375gm zosyn, 1.25gm vancomycin, 500mg Levaquin, transferred to [facility] Precautions/Limitationsswallowing precautions; oxygen therapy device and L/min Limitations/Impairmentssafety/cognitive; sensory; swallowing Impression: MANAGER PROCESS IMPROVEMENT Swallowing Diagnosissevere dysphagia; Per MBSS completed 02/16; please see EMR for full results/recommendations Assessment (Swallow Eval)Swallow evaluation completed. Pt well known to this MANAGER PROCESS IMPROVEMENT from recent lengthy admission. MBSS completed 02/16 with recs for STRICT NPO with frequent aggressive oral care. PEG placed during last admit. Please see EMR for full details/recommendations. This date, pt A&Ox2. MANAGER PROCESS IMPROVEMENT attempted to review MBSS results via PACS images from recent admit; question pt's ability to demonstrate understanding of swallow function. Per pt and HANDLE SANDER OPERATOR, pt scheduled for MBSS at SNF. Given tsp of thin liquids x3, pt with audible repeated swallows (4-5 swallows per tsp) with immediate overt clinical s/s of aspiration/penetration. No further trials given 2/2 hx of severe oral-pharyngeal dysphagia/risk of aspiration. Recommend continue NPO with PEG tube feeding. Repeat MBSS warranted to determine any improvement since last exam. Discussed POC with both HANDLE SANDER OPERATOR (Brooke) and nephew Donta via telephone; will call Donta with results of MBSS. Criteria for Skilled Therapeutic Interventions Met (Swallow Eval)yes; treatment indicated Therapy Frequency (MANAGER PROCESS IMPROVEMENT)2 times/wk MANAGER PROCESS IMPROVEMENT Diet Recommendations (Swallow Eval)NPO with MBSS to fully re-assess swallow function Short Term Goals: Dysphagia/Swallow: Established [id number] Dysphagia/Swallow: Goal DetailsPt will tolerate the least restrictive diet with no overt clinical s/s of aspiration/penetration 100% of the time. Dysphagia/Swallow: Time Frame for GoalBy discharge Electronic Signatures: Danielle Florence (RYLAN) (Signed 19-Apr-2018 15:19) Authored: Rehab Last Updated: 19-Apr-2018 15:19 by Danielle Florence (RYLAN) DISCHARGE PLANNING Observed: 04/19/2018 Status: UNK Source: UNIVERSITY NOTE 2:24 PM HOSPITALS REPOSITORY Patient Learning: Factors that Impact Ability to Learnacuteness of illness, cognitive limitations, physical limitations(1) Other Factors: Functional Screen: In the recent/past 2-4 weeks, patient or family have noticeda significant change in speech or language, a significant change in function affecting balance, or the ability to safely transfer or ambulate (And is not on bedrest)(2) Discharge Planning: Discharge Plannin04/19/18 Waste Disposal Attendant Note 1020 Met with pt and family, introduced self as RN-CC and part of the care transitions team. Demographic sheet verified Pt is from [facility] for rehab. Pt's Primary POA is Kyle Lam([phone]) and secondary is Isha ([phone]). Plan is for patient to return to facility to continue rehab at discharge. Sw made aware. Will continue to follow and will update accordingly. Verenice Sy RNlog carrier operator Coordinator pager #[phone] 04/19/18 SOCIAL WORK NOTE 1100 This director of social services sent referral to [facility] in [facility] as patient has been their previously. They agreed to accept the patient back when medically ready for discharge. Social work will continue to follow through out stay until discharge. Call with questions. LEXI Garza [phone] 04/19/18 22:30 Transfer Note: Patient arrived saftely to [place] [address] from [place] [address] at 21:53. Patient refused to be assessed and screamed to be left alone. Patient denies pain. Patient put on Telemetry. Call light functioning and within reach. Patient did not arrive with any belongings. Patient is resting comfortably, will continue to monitor. Antonia Crystal RN 04/20/18 3:17am SOCIAL WORK NOTE TAMALE MACHINE FEEDER spoke with the patient's TCC on this date who reported that the MD said the patient should be medically ready on 04/22. TAMALE MACHINE FEEDER asked [facility] to start precert. TAMALE MACHINE FEEDER will follow up as needed. VERONICA Simmons, TAMALE MACHINE FEEDER pager [phone] 04/21/18 2:02pm SOCIAL WORK NOTE TAMALE MACHINE FEEDER spoke with [facility] who reported that they would submit for precert. TAMALE MACHINE FEEDER sent updated notes. TAMALE MACHINE FEEDER will follow up as needed. VERONICA Simmons, TAMALE MACHINE FEEDER pager [phone] 04/25/18 2:20pm SOCIAL WORK NOTE TAMALE MACHINE FEEDER spoke with the patient's [facility] who reported that the patient may be medically ready in the next couple of days. TAMALE MACHINE FEEDER was informed that the patient has IVs for 2 more days and the MD is trying to decide if he should stay here for the duration or if he can discharge. TAMALE MACHINE FEEDER asked [facility] to start precert on 04/20. TAMALE MACHINE FEEDER will send updates and follow up with Ana to see if they obtained precert. TAMALE MACHINE FEEDER will follow up as needed. VERONICA Simmons, TAMALE MACHINE FEEDER pager [phone] 04/27/18 4:31pm SOCIAL WORK NOTE TAMALE MACHINE FEEDER asked PT/OT to see the patient yesterday. TAMALE MACHINE FEEDER sent PT updates yesterday 04/26. TAMALE MACHINE FEEDER spoke with the facility on this date who reported that [facility] closed the case since it was taking too long. They reported that they would need to resubmit when the patient is medically ready and when we have all the notes. TAMALE MACHINE FEEDER asked them to restart precert. Patient should be medically ready. TAMALE MACHINE FEEDER sent OT updates to the facility. TAMALE MACHINE FEEDER spring follow up as needed Althea Ordaz TRADEMARK ATTORNEY, TAMALE MACHINE FEEDER pager [phone] Social Work Note 04/27/18 1:10pm SW was contacted by the medical team re potential return to SNF. Called facility and confirmed that precert has not yet been obtained. They will need updates on Wednesday morning. Will request therapy to see for updates and inform team SW MOJGAN Cantor, METAL ENGINEERING PROCESS WORKER-S pager [phone] 05/02/18 11:50am SOCIAL WORK NOTE TAMALE MACHINE FEEDER spoke with the patient's GROUP MANAGER on this date who reported that the patient is medically ready. TAMALE MACHINE FEEDER received a message from [facility] who reported that they obtained auth. Patient does not need 7000 or PAS. TAMALE MACHINE FEEDER set up transport for 3pm. TAMALE MACHINE FEEDER will send orders when finished. TAMALE MACHINE FEEDER also called patient's nephew Donta to let him know about discharge. Donta reported understanding and agreement. TAMALE MACHINE FEEDER will follow up as needed. Althea Ordaz TRADEMARK ATTORNEY, TAMALE MACHINE FEEDER pager [phone] 05/02/18 1625 Discharge note patient tube feed disconnected, iv discontinued and tele removed. transport here to take patient to SNF. Kate Vera RN Electronic Signatures: Deanne Hinton (METAL ENGINEERING PROCESS WORKER) (Signed 30-Apr-2018 13:15) Authored: Discharge Planning Note Verenice Sy (RN) (Signed 19-Apr-2018 14:59) Authored: Discharge Planning Note Kate Vera (RN) (Signed 02-May-2018 16:27) Authored: Discharge Planning Note Althea Ordaz (CONSTANTINO) (Signed 02-May-2018 11:52) Authored: Discharge Planning Note Bhakti Hoffmann (METAL ENGINEERING PROCESS WORKER) (Signed 20-Apr-2018 14:43) Authored: Discharge Planning Note Antonia Crystal (RN) (Signed 19-Apr-2018 23:17) Authored: Discharge Planning Note Last Updated: 02-May-2018 16:27 by Kate Vera (RN) References: 1. Data Referenced From 5. Education 04/18/2018 8:02 PM 2. Data Referenced From Admission Risk Screen - Adult 04/18/2018 8:02 PM GLUCOSE-POCT Collected: 04/19/2018 Status: F Source: [facility]EL 11:47 AM HOSPITALS REPOSITORY TYPE CODE TESTS RESULT OUT OF RANGE REFERENCE UNITS LAB GLUP(LOINC) 74 - 99 mg/dL High 138 GLUCOSE-POCT Performed By: #### GLUPO #### [facility] [address] [place] [address] NUTRITION THERAPY-ASSESSMENT Observed: 04/19/2018 Status: UNK Source: [facility] 11:28 AM HOSPITALS REPOSITORY Assessment Subjective/Objective: Note Type: Assessment Note Authored by: Registered Dietitian Career Placement Specialist Pager Number: [phone] Nutrition Note: The patient is a 67 year old Male who transferred from [facility] for treatment of pneumonia. - Concern for both pseudomonas and MRSA. Patient was hospitalized at 02/10 04/03 for a repeat surgical resection of his meningioma. Post-op complications included dysphagia, aspiration pneumonia, and brainstem infarct. Patient discharged on 04/03 to SNF with continuous TF's of Diabetisource AC. Has been NPO since discharge. This Service consulted via TF rec's Spoke with HANDLE SANDER OPERATOR this morning. Plan is to start TF's and order a Swallowing eval. Patient's sister and [id number] present and stated that patient had been on continuous tube feeds in SNF. Per [id number], Don't do bolus. He aspirated when they did that. Medical History: Meningioma: COPD (chronic obstructive pulmonary disease): Type II diabetes mellitus: HTN (hypertension): Objective Information: T PRBPSpO2 [id number]% Date/Time04/19 6: 6: 6: 6: 6:55 Range(35.9C - 36.6C ) (77 - 91 ) (16 - 18 ) (129 - 138 )/ (69 - 86 ) (92% - 97% ) Height/Weight: Height in inches: 72 inch(es) Weight history/ % weight change: Wt loss of 33 lbs (15%) since his surgery in January 2018. Wt hx: 04/18 186.6 lbs 04/04 192.7 lbs 02/10 219.8 lbs Significant Weight Change: yes Recent Lab Results: Results: I have reviewed these laboratory results: Glucose_POCT Trending View [id number] 07:47:00 19-Apr-2018 05:45:00 19-Apr-2018 02:12:00 Glucose-POCT95 102 H 133 H Comprehensive Metabolic Panel 19-Apr-2018 05:47:00 ResultValue Glucose, Serum 97 NA 131 L K 4.6 CL 96 L Bicarbonate, Serum 28 Anion Gap, Serum 12 BUN 26 H CREAT 0.53 GFR-Non >60 GFR- >60 Calcium, Serum 9.4 ALB 2.8 L ALKP 82 T Pro 5.9 L T Bili 0.4 Alanine Aminotransferase, Serum 24 Aspartate Transaminase, Serum 17 Current Active Medications/PN: Linezolid 600 mg IVPB/ Premixed Soln 300 mL, Every 12 Hours Recommended Infusion Time: 2 hour(s), 18-Apr-2018 Atorvastatin, Tablet (LIPITOR) DOSE = 40 mg Oral Daily, 18-Apr-2018 Docusate Oral Liquid, (COLACE) DOSE = 100 mg Oral 2 Times a Day, 18-Apr-2018 Esomeprazole Oral Packet, (NEXIUM.) DOSE = 40 mg NasoGastric Tube 2 Times a Day, 18-Apr-2018 Polyethylene Glycol, Powder for Reconstitution (MIRALAX) DOSE = 17 gram(s) Oral Daily, PRN Constipation, 18-Apr-2018 Saliva Substitute, Solution DOSE = 15 mL Oral 4 Times a Day, 18-Apr-2018 Simethicone Oral Liquid Drops, (MYLICON) DOSE = 80 mg Oral 4 Times a Day After Meals, 18-Apr-2018 Insulin Lispro Mild Corrective Scale, Give SubCutaneous Every 4 Hours Hypoglycemia Protocol Call LIP unit(s) if Blood Glucose is between 0 - 70 0 unit(s) if Blood Glucose is between 71 - 150 2 unit(s) if Blood Glucose is between 151 - 200 4 unit(s) if Blood Glucose is between 201 - 250 6 unit(s) if Blood Glucose is between 251 - 300 8 unit(s) if Blood Glucose is between 301 - 350 10 unit(s) if Blood Glucose is between 351 - 400 Notify Provider unit(s) if Blood Glucose is greater than 400, 18-Apr-2018 Insulin Glargine (Lantus) Injectable, DOSE = 15 unit(s) SubCutaneous Every 24 Hours Notes from Pharmacy: HIGH ALERT , 18-Apr-2018 Cefepime IV Piggy Back, in Sodium Chloride 0.9% 50 mL (MAXIPIME) DOSE = 2 gram(s) Every 12 Hours Recommended Infusion Time: 30 minute(s), 18-Apr-2018 Lactated Ringers Infusion, IV Bag Volume = 1,000 mL Run at: 200 mL/hr IntraVenous <Continuous> Stop After 5 Hours, 18-Apr-2018 Nutrition Orders: NPO, Routine Except Ice Chips, 18-Apr-2018 Food/Nutrition Related History: Oral Problems: swallowing difficulty Mobility: difficulty with normal activity Food Allergies Comment: NKFA Nutrition Focused Physical Findings: Muscle Wasting: Temporal: yes Shoulder: yes Clavicle: yes Scapula/Back: defer Interosseous: yes Quadriceps: yes Calf: yes Loss of Subcutaneous Fat: Eyes: yes Perioral: no Triceps: yes Chest: no Other Physical Findings: Hair: negative Eyes: negative Mouth: patient had difficulty sticking out his tongue on command Nails: negative Skin: stage II pressure injury to R buttock Edema: none Change in Metabolic Demand: yes Etiology: acute illness or injury Estimated Needs: kcals/day: 3085-9584 gms protein/day: 100+ mL fluid/day: 8147-8602 Nutrition Diagnosis: Dx: Moderate protein calorie malnutrition. related to recent complicated post-op course as evidenced by mild muscle wasting to temples, shoulders and clavicles, mild fat loss to orbital pads and biceps, and significant weight loss of 15% x ~ 2 months. Nutrition Interventions: Individualized Nutrition Prescription Provided for: enteral nutrition Diet Education: not applicable Nutrition Goals: Goals: Nutrition Therapy: nutrition support goals are met within 48 hrs, nutrition support is meeting 75% of nutrient needs, tube feed tolerance, Blood Glucose 80-180 mg/dl, promote healing, maintain stable weight Outcomes Summary: Nutrition Therapy Outcome Summary: Nutritional Therapy: Moderate protein calorie malnutrition NUTRITION RECOMMENDATIONS: Recommendations: 1) Diabetisource AC at 80ml/hr. (2304kcals, 115grams protein,1567ml of free water). FAMILY IS REQUESTING NO BOLUS FEEDS DUE TO THEIR REPORT OF ASPIRATION WITH BOLUS FEEDS. 2) Flushes per MD. (patient hyponatremic). Nutrition Therapy Recommendations: Nutrition Therapy Recommendations: See RDN note 04/19 Dietitian Monitoring and Evaluation Plan: Monitoring and Evaluation Plan: Nutrition Support tolerance/adequacy, weight trend, skin healing/integrity, labs Time Spent (minutes): 60 Nutrition Support: yes Electronic Signatures: Yaneth Martini (JORDYN, NOAH) (Signed 19-Apr-2018 12:06) Authored: Assessment Subjective/Objective, Nutrition Focused Physical Findings, Estimated Needs, Nutrition Diagnosis, Nutrition Interventions, Nutrition Goals, Nutrition Recommendations, Dietitian Monitoring and Evaluation Plan, Time Spent/Nutrition Support Last Updated: 19-Apr-2018 12:06 by Yaneth Martini (JORDYN, NOAH) HISTORY AND PHYSICAL Observed: 04/19/2018 Status: COMPLETED Source: [facility] 9:20 AM HOSPITALS REPOSITORY History of Present Illness: Admission Reason: HCAP HPI: This is a 67 year old male with history significant for HTN, type II DM, COPD, left lung resection in (for unclear reasons), CYNTHIA, and meningioma s/p craniotomy with resection 2013 (at [facility]) who was recently admitted 02/10/18-04/04/18 for meningioma resection with postop course complicated by brainstem infarction, dysphagia requiring PEG placement, grade D esophagitis (noted on EGD 02/21/18), midline-related right brachial DVT, multiple bouts of aspiration with left lung collapse (grew MRSA and 2 different strains of pseudomonas; was previously on several antibiotics, but most recently completed course of levofloxacin on 04/04/18) who was transferred from [facility] for further management of suspected HCAP. Pt is somewhat of a poor historian so much of the historian was obtained from his nephew Donta and his sister. Pt reportedly had been having a productive cough for the past several days. Nephew notes that he was having oxygen desaturations while at [facility] and required supplemental 02. Denies any fevers or chills. EMS brought pt from SNF to [facility]. ECG obtained by EMS en route to hospital read as atrial fibrillation, but unclear if this was the case as it was of poor quality and potentially had P waves. Chest x-ray upon arrival to [facility] reported mild increased markings at left lung base with blunting of left costophrenic angle. WBC was 17.1. Flu panel, sputum culture, and blood cultures were obtained. Pt was given IV vancomycin, Zosyn, and levofloxacin prior to transport to [facility]. Past medical history: See above in HPI Past surgical history: See above in HPI Family history: Not pertinent to presenting problem Social history: Prior smoker Denies use of alcohol or illicit substances Allergies: Aspirin Codeine Penicillin Medications per [facility] records: acetaminophen 160 mg/5 mL oral liquid 20.3 milliliter(s) by gastrostomy tube every 6 hours, As Needed for pain/temp albuterol 2.5 mg/3 mL (0.083%) inhalation solution 3 milliliter(s) inhaled every 6 hours Arginaid 1 packet(s) by gastrostomy tube 2 times a day atorvastatin 40 mg oral tablet orally once a day (at bedtime) bisacodyl 10 mg rectal suppository 1 suppository(ies) rectal once a day, As needed, budesonide 0.5 mg/2 mL inhalation suspension 2 milliliter(s) inhaled every 12 hours docusate sodium 10 mg/mL oral liquid 10 milliliter(s) via peg 2 times a day enoxaparin 40 milligram(s) subcutaneous every 24 hours esomeprazole 40 mg oral powder for reconstitution, delayed release 1 packet(s) by nasogastric tube 2 times a day fluticasone-salmeterol 250 mcg-50 mcg inhalation powder inhaled twice a day formoterol 20 mcg/2 mL inhalation solution 2 milliliter(s) inhaled every 12 hours guaiFENesin 100 mg/5 mL oral liquid 20 milliliter(s) via peg every 6 hours insulin glargine 100 units/mL subcutaneous solution 30 unit(s) subcutaneous every 24 hours insulin lispro 100 units/mL injectable solution subcutaneous every 6 hours; Hypoglycemia Protocol Call LIP unit(s) if Blood Glucose is between 0 - 70, 0 unit(s) if Blood Glucose is between 71 - 150, 2 unit(s) if Blood Glucose is between 151 - 200, 4 unit(s) if Blood Glucose is between 201 - 250, 6 unit(s) if Blood Glucose is between 251 - 300, 8 unit(s) if Blood Glucose is between 301 - 350, 10 unit(s) if Blood Glucose is between 351 - 400, Notify Physician unit(s) if Blood Glucose is greater than 400 meloxicam 7.5 mg oral tablet 1 tab(s) by gastrostomy tube once a day (at bedtime) for 2 weeks nystatin 100,000 units/mL oral suspension 5 milliliter(s) orally every 6 hours polyethylene glycol 3350 oral powder for reconstitution 17 gram(s) via peg once a day silodosin 8 mg oral capsule 1 cap(s) by gastrostomy tube once a day simethicone 40 mg/0.6 mL oral liquid 1.2 milliliter(s) orally 4 times a day (after meals and at bedtime) Tylenol 500 milligram(s) by gastrostomy tube 3 times a day valproic acid 250 mg/5 mL oral syrup 10 ml via peg tube every night Comorbidities: Comorbid Conditionschronic obstructive pulmonary disease, diabetes, hypertension COPDunknown Diabtetes TypeType 2 Insulin Dependentyes DM Acuity or Statuspoorly controlled DM Complicationsnone Family History: Family History: reviewed and not pertinent to presenting problem Social History: Social History: Smoking Statusformer smoker Alcohol Usedenies Drug Usedenies Allergies: Codeine Sulfate: Unknown penicillin: Unknown Intolerances: Aspir 81: GI Upset Review of Systems: Constitutional: NEGATIVE: Fever, Chills, Anorexia, Weight Loss, Malaise Eyes: NEGATIVE: Blurry Vision, Drainage, Diploplia, Redness, Vision Loss/ Change ENMT: NEGATIVE: Nasal Discharge, Nasal Congestion, Ear Pain, Mouth Pain, Throat Pain Respiratory: POSITIVE: Productive Cough; NEGATIVE: Dry Cough, Hemoptysis, Wheezing, Shortness of Breath Cardiac: NEGATIVE: Chest Pain, Dyspnea on Exertion, Orthopnea, Palpitations, Syncope Gastrointestinal: NEGATIVE: Nausea, Vomiting, Diarrhea, Constipation, Abdominal Pain Genitourinary: NEGATIVE: Discharge, Dysuria, Flank Pain, Frequency, Hematuria Musculoskeletal: NEGATIVE: Decreased ROM, Pain, Swelling, Stiffness, Weakness Neurological: NEGATIVE: Dizziness, Confusion, Headache, Seizures, Syncope Psychiatric: NEGATIVE: Mood Changes, Anxiety, Hallucinations, Sleep Changes Skin: NEGATIVE: Mass, Pain, Pruritus, Rash, Ulcer Endocrine: NEGATIVE: Heat Intolerance, Cold Intolerance, Sweat, Polyuria, Thirst Hematologic/Lymph: NEGATIVE: Anemia, Bruising, Easy Bleeding, Night Sweats, Petechiae Allergic/Immunologic: NEGATIVE: Anaphylaxis, Itchy/ Teary Eyes, Itching, Sneezing, Swelling Objective: Objective Information: T PRBPSpO2 [id number]% Date/Time04/19 16: 16: 16: 16: 16:10 Range(35.9C - 36.6C ) (71 - 91 ) (16 - 18 ) (129 - 138 )/ (69 - 86 ) (92% - 97% ) Physical Exam: Constitutional: Lying in bed in NAD Eyes: Clear sclera ENMT: MMM Head/Neck: Craniectomy incision well-approximated Respiratory/Thorax: Nonlabored. Lungs CTA bilaterally. Cardiovascular: RRR. Normal S1/S2. No M/R/G noted. Gastrointestinal: Abdomen soft, nondistended and nontender. +BS. PEG tube intact. Musculoskeletal: REMY Extremities: No peripheral edema Neurological: Alert. Oriented to person, place, and time. Psychological: Appropriate mood and behavior Skin: Warm and dry; no rashes or lesions Medications: Medications: Continuous Medications No continuous medications are active Scheduled Medications 1. Atorvastatin: 40 mg Oral Daily 2. Budesonide 0.5 mg/ 2 mL Nebulizer Soln: 2 mL Inhalation Every 12 Hours 3. Cefepime IV Piggy Back: 2 gram(s) IntraVenous Piggyback Every 12 Hours 4. Docusate Oral Liquid: 100 mg Oral 2 Times a Day 5. Enoxaparin SubCutaneous: 40 mg SubCutaneous Every 24 Hours 6. Esomeprazole Oral Packet: 40 mg NasoGastric Tube 2 Times a Day 7. Formoterol 20 microgram/ 2 mL Neb Soln: 2 mL Inhalation Every 12 Hours 8. guaiFENesin Oral Liquid: 400 mg Oral Every 6 Hours 9. Insulin Glargine (Lantus) Injectable: 15 unit(s) SubCutaneous Every 24 Hours 10. Insulin Lispro Mild Corrective Scale: unit(s) SubCutaneous Every 4 Hours 11. Linezolid 600 mg IVPB/ Premixed Soln 300 mL: 300 mL IntraVenous Piggyback Every 12 Hours 12. Saliva Substitute: 15 mL Oral 4 Times a Day 13. Silodosin (NON - Formulary): 8 mg Oral Daily 14. Simethicone Oral Liquid Drops: 80 mg Oral 4 Times a Day After Meals 15. Valproic Acid (Depakene) Oral Liquid: 500 mg PEG Tube <User Schedule> PRN Medications 1. Acetaminophen Oral Liquid: 650 mg Gastrostomy Tube Every 4 Hours 2. Albuterol 2.5 mg/ 3 mL Nebulizer Soln: 3 mL Inhalation Every 6 Hours 3. Dextrose 50% in Water Injectable: 25 gram(s) IntraVenous Push Every 15 Minutes 4. Glucagon Injectable: 1 mg IntraMuscular Every 15 Minutes 5. Polyethylene Glycol: 17 gram(s) Oral Daily Recent Lab Results: Results: I have reviewed these laboratory results: Glucose_POCT Trending View [id number] 16:47:00 19-Apr-2018 11:47:00 19-Apr-2018 07:47:00 19-Apr-2018 05:45:00 19-Apr-2018 02:12:00 Glucose-SFSR332 H 138 H 95 102 H 133 H Comprehensive Metabolic Panel 19-Apr-2018 05:47:00 ResultValue Glucose, Serum 97 NA 131 L K 4.6 CL 96 L Bicarbonate, Serum 28 Anion Gap, Serum 12 BUN 26 H CREAT 0.53 GFR-Non >60 GFR- >60 Calcium, Serum 9.4 ALB 2.8 L ALKP 82 T Pro 5.9 L T Bili 0.4 Alanine Aminotransferase, Serum 24 Aspartate Transaminase, Serum 17 Complete Blood Count + Differential 19-Apr-2018 05:47:00 ResultValue White Blood Cell Count 11.3 Nucleated Erythrocyte Count 0.0 Red Blood Cell Count 4.56 HGB 13.4 L HCT 41.1 MCV 90 MCHC 32.6 PLT 184 RDW-CV 14.8 H Neutrophil % 71.0 Immature Granulocytes % 1.4 Lymphocyte % 18.3 Monocyte % 7.7 Eosinophil % 1.1 Basophil % 0.5 Neutrophil Count 8.04 H Lymphocyte Count 2.07 Monocyte Count 0.87 Eosinophil Count 0.13 Basophil Count 0.06 Radiology Results: Results: Impression: 1. Unchanged left basilar retrocardiac opacity, likely representing combination of atelectasis and small pleural effusion with or without superimposed consolidation. 2. No pneumothorax. Xray Chest 1 View [Apr 19 2018 7:55AM] Assessment and Plan: Assessment: This is a 67 year old male with history significant for HTN, type II DM, COPD, left lung resection in (for unclear reasons), CYNTHIA, and meningioma s/p craniotomy with resection 2013 (at [facility]) who was recently admitted 02/10/18-04/04/18 for meningioma resection with 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 Admitted to medicine. in a shared visit with Dr. Jennings Suspected HCAP: - consult pulmonology given complex pulmonary history and recent hospitalization - consult palliative care to assist with conversations on plan of care (previously saw him during prior hospitalization) - continue linezolid and cefepime (started on admission) - repeat blood cultures sent at ; will follow up results - send sputum culture - follow up flu panel, blood cultures, and sputum culture from [facility] - wean supplemental 02 as tolerated (he is not normally on 02) Initial concern for atrial fibrillation: unclear if this was the case as ECG was of poor quality. Repeat ECG today noting sinus rhythm with 1st degree AV block. - transfer to telemetry for further evaluation and per request of anel Macias (who spoke with Dr. Ramirez in pulmonology) COPD: - continue inhaled formoterol and budesonide - hold off with Advair as he can't follow directions enough to take this - change albuterol nebulizer treatments to PRN Recent midline related right brachial DVT: - prior midline was removed during last hospitalization; therapeutic anticoagulation was not initiated - per records at SNF, planning for repeat US on 05/04/18 Dysphagia s/p PEG tube placement: - speech therapy consulted and is recommending NPO with MBS (which will be done tomorrow) - continue Diabetic Source tube feedings and free water flushes Grade D esophagitis: - continue PPI BID (plan was for him to be on this for 3 months following EGD on 02/21/18) - will need outpatient follow up in GI clinic in 05/2018 HTN: BP controlled - will consider starting antihypertensive if indicated Type II DM: - continue Lantus 15 units daily (home dose 30 units daily); will consider increasing dose tomorrow - continue Lispro sliding scale with hypoglycemia protocol CYNTHIA: - continue CPAP DVT prophylaxis: - enoxaparin Miscellaneous: - continue home valproic acid Code status: - DNAR/DNI Discharge disposition: was at SNF prior to going to [facility]. Nephew Donta reporting that pt has mild cognitive deficits at baseline and has a low IQ. - updated nephew Donta and sister on plan of care at bedside - nephew Donta would like him to return to prior SNF - consult PT/OT Signatures/Attestation/Certification: Attending Only - Shared Visit with Advanced Practice ProviderThis is a shared visit. I have reviewed the Advanced Practice Providers encounter note, approve the Advanced Practice Providers documentation, and provide the following additional information from my personal encounter. Comments/ Additional Findings 67 year old male with a past medical history of COPD, CYNTHIA, DM-II, meningioma s/p resection in 2013 with recurrence, and recent admission (from 02/10/18-04/04/18) for repeat resection with hospital course complicated by brainstem infarction, dysphagia (now s/p PEG), line associated DVT, and multiple HAP (MRSA and Pseudomonas) and recurrent mucous plugging, atelectasis requiring aggressive respiratory management that was discharged to SNF that was readmitted to [facility] on 04/18/18 due to hypoxic respiratory failure. Per his nephew he was been doing well at the SNF but continues to have a wet sounding cough. His nephew was called by the SNF the morning of 04/18/18 and told that he had thick brown substance down the front of his cloths (unsure if it was secretions due to cough or emesis) and was de-sating to the upper 70s/ low 80s and so his nephew had him transported to the hospital. He was taken to [facility] where he was found to have a leukocytosis to 17 and CXR suggested possible left sided PNA. Thus, he was given vancomycin, Zosyn, and levofloxacin in the ED and transferred to [facility] for admission. See HANDLE SANDER OPERATOR note for full details of history, ROS, home meds, and exam. Gen: NAD Eyes: sclera anicteric, PERRLA HEENT: mucous membranes moist, dentures in places, dysarthric. Head and Neck: scar from surgery over the left scalp CV: RRR Pulm: CTAB, on 2L NC GI: soft, non-tender Ext: no pitting edema Neuro: AAOx2-3 (knows year but exact month) Labs and Imaging Reviewed. 67 year old male with a past medical history of COPD, CYNTHIA, DM-II, meningioma s/p resection in 2013 with recurrence, and recent admission (from 02/10/18-04/04/18) for repeat resection with hospital course complicated by brainstem infarction, dysphagia (now s/p PEG), line associated DVT, and multiple HAP (MRSA and Pseudomonas) and recurrent mucous plugging, atelectasis requiring aggressive respiratory management that was discharged to SNF. On 04/18/18 patient was found at SNF to be tachycardic and hypoxic so transferred to OSH. At OSH ED that was concern for LLL PNA on CXR so he was started on broad spectrum abx and transferred to [facility] on 04/18/18 due to for further care. Hypoxic Respiratory Failure/ Concern for LLL PNA: - given history concern for recurrent aspiration even - continue on linezolid and cefapime - based on allergies and past sensitivities - pulmonary consulted - aggressive respiratory therapy - f/u cultures from OSH - f/u blood culture from admission to [facility] - wean oxygen as tolerated Tachycardia: - resolved - EKG at OSH showed sinus tach with multiple PACs and some PVCs - will move to telemetry bed per family request for closer monitoring Dysphagia: - speech consulted - per family due for a repeat swallow evaluation today - continue NPO and tube feeds for now Meningioma 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: - continue valproic acid COPD: - does not appear to be in exacerbation - continue inhalers CYNTHIA: - continue CPAP DM: - Lantus 15U daily (1/2 home dose) and ISS Diet: - tube feeds Ppx: - Lovenox subcutaneous Attending Provider Inpatient Certification StatementI certify this patients need for inpatient care based on the above documentation including; the order to admit as inpatient, the anticipated length of stay, diagnosis, problem list and plan of care, and discharge plan. Electronic Signatures: Kimberly Singer) (Signed 24-Apr-2018 07:36) Authored: Signatures/Attestation/Certification Co-Signer: History of Present Illness, Comorbidities, Family History, Social History, Allergies, Review of Systems, Objective, Assessment and Plan, Signatures/Attestation/Certification Brooke Mullen ([employer] OPERATOR-GROUP MANAGER) (Signed 19-Apr-2018 20:38) Authored: History of Present Illness, Comorbidities, Family History, Social History, Allergies, Review of Systems, Objective, Assessment and Plan, Signatures/Attestation/Certification Last Updated: 24-Apr-2018 07:36 by Kimberly Singer) GLUCOSE-POCT Collected: 04/19/2018 Status: F Source: [facility] 7:47 AM HOSPITALS REPOSITORY TYPE CODE TESTS RESULT OUT OF RANGE REFERENCE UNITS LAB GLUP(LOINC) 74 - 99 mg/dL 95 GLUCOSE-POCT Performed By: #### GLUPO #### [facility] [address] [place] [address] COMPREHENSIVE PANEL Collected: 04/19/2018 Status: F Source: [facility] 5:47 AM HOSPITALS REPOSITORY TYPE CODE TESTS RESULT OUT OF REFERENCE UNITS RANGE LAB GLU(LOINC) 74 - 99 mg/dL GLUCOSE 97 LAB SOD(LOINC) 136 - 145 mmol/L Low SODIUM 131 LAB K(LOINC) 3.5 - 5.3 mmol/L POTASSIUM 4.6 LAB CHLOR(LOIN 98 - 107 mmol/L C) Low CHLORIDE 96 LAB BIC(LOINC) 21 - 32 mmol/L BICARBONATE 28 LAB ANGAP(LOIN 10 - 20 mmol/L C) ANION GAP 12 LAB UREA(LOINC 6 - 23 mg/dL ) UREA High NITROGEN 26 LAB CREA(LOINC 0.50 - 1.30 mg/dL ) CREATININE 0.53 LAB GFRFN(LOIN >60 mL/min/1.7 C) 3m2 GFR-NON AM. >60 LAB GFRAA(LOIN >60 mL/min/1.7 C) 3m2 GFR- AM. >60 Result Comment: CALCULATIONS OF ESTIMATED GFR ARE PERFORMED USING THE MDRD STUDY EQUATION FOR THE IDMS-TRACEABLE CREATININE METHODS. CLIN CHEM 2007;53:766-72 LAB CA(LOINC) 8.6 - 10.6 mg/dL CALCIUM 9.4 LAB ALB(LOINC) 3.4 - 5.0 g/dL ALBUMIN Low 2.8 LAB AP(LOINC) 33 - 136 U/L ALKALINE PHOSPHATASE 82 LAB TP(LOINC) 6.4 - 8.2 g/dL TOTAL PROTEIN Low 5.9 LAB AST(LOINC) 9 - 39 U/L AST 17 LAB TBILI(LOINC) 0.0 - 1.2 mg/dL BILIRUBIN,TOTAL 0.4 LAB ALT(LOINC) 10 - 52 U/L ALT 24 Result Comment: Patients treated with Sulfasalazine may generate falsely decreased results for ALT. Performed By: #### CMP #### [facility] [address] [place] [address] CBC AND DIFFERENTIAL Collected: 04/19/2018 Status: F Source: [facility] 5:47 AM HOSPITALS REPOSITORY TYPE CODE TESTS RESULT OUT OF REFERENCE UNITS RANGE LAB WBCR(LOINC 4.4 - 11.3 x10E9/L ) WBC 11.3 LAB NRBC(LOINC 0.0-0.0 /100 WBC ) NUCLEATED RBC 0.0 LAB RBCCT(LOIN 4.50 - 5.90 x10E12/L C) RBC 4.56 LAB HGB(LOINC) 13.5 - 17.5 g/dL Low HGB 13.4 LAB HCT(LOINC) 41.0 - 52.0 % HCT 41.1 LAB MCV(LOINC) 80 - 100 fL MCV 90 LAB MCHC2(LOIN 32.0 - 36.0 g/dL C) MCHC 32.6 LAB PLTCT(LOIN 150 - 450 x10E9/L C) PLT 184 LAB RDWCV(LOIN 11.5 - 14.5 % C) RDW-CV High 14.8 LAB NEUT(LOINC 40.0 - 80.0 % ) % NEUTROPHIL 71.0 LAB IG(LOINC) 0.0 - 0.9 % % AUTOMATED 1.4 IMMATURE GRAN Result Comment: Percent differential counts (%) should be interpreted in the context of the absolute cell counts (cells/L). LAB LYMPH(LOINC) 13.0 - % 44.0 % LYMPHOCYTE 18.3 LAB MONO(LOINC) 2.0 - 10.0 % % MONOCYTE 7.7 LAB EOS(LOINC) 0.0 - 6.0 % % EOSINOPHIL 1.1 LAB BASO(LOINC) 0.0 - 2.0 % % BASOPHIL 0.5 LAB #NEUT(LOINC) 1.20 - x10E9/L 7.70 NEUTROPHIL High 8.04 LAB #LYMP(LOINC) 1.20 - x10E9/L 4.80 LYMPHOCYTE 2.07 LAB #MONO(LOINC) 0.10 - x10E9/L 1.00 MONOCYTE 0.87 LAB #EOS(LOINC) 0.00 - x10E9/L 0.70 EOSINOPHIL 0.13 LAB #BASO(LOINC) 0.00 - x10E9/L 0.10 BASOPHIL 0.06 Performed By: #### CBCDF #### [facility] [address] [place] [address] GLUCOSE-POCT Collected: 04/19/2018 Status: F Source: [facility] 5:45 AM [facility]OSPITALS REPOSITORY TYPE CODE TESTS RESULT OUT OF RANGE REFERENCE UNITS LAB GLUP(LOINC) 74 - 99 mg/dL High 102 GLUCOSE-POCT Performed By: #### GLUPO #### [facility] [address] [place] [address] GLUCOSE-POCT Collected: 04/19/2018 Status: F Source: [facility] 2:12 AM [facility] REPOSITORY TYPE CODE TESTS RESULT OUT OF RANGE REFERENCE UNITS LAB GLUP(LOINC) 74 - 99 mg/dL High 133 GLUCOSE-POCT Performed By: #### GLUPO #### [facility] [address] [place] [address] Observed: 04/18/2018 Status: F Source: [facility] BLOOD CULTURE, 11:56 PM HOSPITALS REPOSITORY BACTERIAL PATIENT: DIPESH BERMUDEZ LOCATION: L050 L50 BILL#: [id number] : 54 AGE: SEX: M ORDERED BY: KRISTEN PLUMMER SOURCE: Blood COLLECTED: 04/18/18 23:56 ANTIBIOTICS AT [facility].: RECEIVED : 04/19/18 02:33 SITE: PERIPHERAL R E S U L T S BLOOD CULTURE, BACTERIAL FINAL 04/24/18 05:42 No Growth at 1 days No Growth at 2 days No Growth at 3 days NO GROWTH - FINAL REPORT Performed By: #### BLDC #### [facility] [address] [place] [address] Observed: 04/18/2018 Status: F Source: [facility] BLOOD CULTURE, 11:55 PM HOSPITALS REPOSITORY BACTERIAL PATIENT: DIPESH BERMUDEZ LOCATION: L050 L50 BILL#: [id number] : 54 AGE: SEX: M ORDERED BY: KRISTEN PLUMMER SOURCE: Blood COLLECTED: 04/18/18 23:55 ANTIBIOTICS AT [facility].: RECEIVED : 04/19/18 02:33 SITE: PERIPHERAL R E S U L T S BLOOD CULTURE, BACTERIAL FINAL 04/24/18 05:42 No Growth at 1 days No Growth at 2 days No Growth at 3 days NO GROWTH - FINAL REPORT Performed By: #### BLDC #### [facility] [address] [place] [address] GLUCOSE-POCT Collected: 04/18/2018 Status: F Source: [facility] 10:32 PM [facility]OSPITALS REPOSITORY TYPE CODE TESTS RESULT OUT OF RANGE REFERENCE UNITS LAB GLUP(LOINC) 74 - 99 mg/dL High 108 GLUCOSE-POCT Performed By: #### GLUPO #### [facility] [address] [place] [address] TH CHEST 1 VIEW Observed: 04/18/2018 Status: F Source: [facility] 9:36 PM HOSPITALS REPOSITORY Patient Name: DIPESH BERMUDEZ STUDY: CHEST 1 VIEW; 04/18/2018 9:36 pm INDICATION: Signs/Symptoms: pneumonia. COMPARISON: Chest radiograph from 04/03/2018 ACCESSION NUMBER(S): [id number] ORDERING CLINICIAN: KRISTEN PLUMMER FINDINGS: Evaluation is slightly limited due to patient's rightward rotation and beam underpenetration. The cardiomediastinal silhouette is grossly stable in size and configuration. Mild aortic knob calcifications. The patient is status post left lower lobectomy. There is mild perihilar congestion and interstitial prominence without overt edema. There is similar left basilar retrocardiac opacity, likely representing combination of atelectasis and small pleural effusion. No pneumothorax. No acute osseous abnormality. IMPRESSION: 1. Unchanged left basilar retrocardiac opacity, likely representing combination of atelectasis and small pleural effusion with or without superimposed consolidation. 2. No pneumothorax. Electronically signed by: LEXI LI MD PATIENT PROFILE - Observed: 04/18/2018 Status: UNK Source: [facility] ADULT V2 8:30 PM HOSPITALS REPOSITORY Profile: Initial Info: How to be Addressedharry Spoken Language PreferredEnglish (1) Source of Informationpatient Are you currently using the Personal [facility] Record or WePowSigndatno Are you interested in learning more about [facility] for the management of your healthdeclined Stated Reason for AdmissionI have pneumonia [facility] Bel[facility] Medications Brought to Hospitalno General Health: Weight in kg84.8 kilogram(s) Weight in dae505.9 pound(s) Height in feet5 feet Height in inches9 inch(es) Height in cm175.2 centimeter(s) BMI (kg/m2)27.626 square meter Weight Methodactual (measured) Scale Typebed Height Methodstated RSP Based Care: How would you like to participate in your careFull What is the number one concern for you during this hospitalizationGetting better What is the most important thing we can do to support you during this hospitalizationAddress my concerns Is there anything we need to know to best care for youNo Substance: Current or Former Substance Use never: Street Drugs(1) YES: Cigarette/Tobacco(1), Alcohol(1) Tobacco Cessation Education (provide if tobacco use within the last 12 mos)not applicable Alcohol Use Statuspast alcohol (1) Health Mgmt: Symptoms/Conditions Managed at Homecardiovascular; neurological; respiratory; musculoskeletal; skin Cardiovascular Symptoms/Conditionshypertension; Afib Cardiovascular Managementmanaged Musculoskeletal Symptoms/Conditionsmobility limited; unsteady gait Musculoskeletal Managementnot managed Neurological Symptoms/Conditionsstroke Neurological Managementmanaged Respiratory Symptoms/Conditionspna Respiratory Managementnot managed Skin Symptoms/Conditionspressure injury Number of Pressure Injury on Admission1 Skin Managementmanaged Relationship/Environ: Primary Source of Support/Comfortsibling(s) Lives Withsnf Living Arrangementsnursing home Resource/Environmental Concernsnone Anticipated Transition [facility] care facility Services Anticipated at Transitionskilled nursing Significant IndicatorsComplete Information Review: Allergies, Home Meds and Significant Events have been Reviewed and Verified with Patient/Familyyes ALLERGY, INTOLERANCE, ADVERSE EVENT: Allergies: Codeine Sulfate: Drug, Unknown, Active penicillin: Drug, Unknown, Active insulin: Drug, Unknown, Active Intolerances: Aspir 81: Drug, GI Upset, Active Problem List: Additional Dx: Delirium, acute: Onset Date: 27-Mar-2018, Catalog Name: Disorientation, unspecified Pseudomonas pneumonia: Onset Date: 27-Mar-2018, Catalog Name: Pneumonia due to Pseudomonas Encephalopathy: Catalog Name: Encephalopathy, unspecified Encounter for palliative care: Catalog Name: Encounter for palliative care Goals of care, counseling/discussion: Catalog Name: Other specified counseling Hyperkalemia: Catalog Name: Hyperkalemia 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 Esophagitis, acute: Catalog Name: Esophagitis, unspecified Feeding difficulty in adult: Catalog Name: Feeding difficulties Encephalopathy acute: Catalog Name: Encephalopathy, unspecified Acute respiratory failure with hypoxia and hypercapnia: Catalog Name: Acute respiratory failure with hypoxia COPD with chronic bronchitis and emphysema: Catalog Name: Chronic obstructive pulmonary disease, unspecified Respiratory failure with hypoxia: Catalog Name: Respiratory failure, unspecified with hypoxia Oropharyngeal dysphagia: Catalog Name: Dysphagia, oropharyngeal phase Dysphagia: Catalog Name: Dysphagia, unspecified Pneumonia: Catalog Name: Pneumonia, unspecified organism Cerebral edema: Catalog Name: Cerebral edema Brain stem compression: Catalog Name: Compression of brain buttermaker continuous churn current use of insulin: Catalog Name: buttermaker continuous churn (current) use of insulin Type 2 diabetes mellitus: Catalog Name: Type 2 diabetes mellitus skilled nursing current use of insulin: Catalog Name: skilled nursing (current) use of insulin Type 2 diabetes mellitus: Catalog Name: Type 2 diabetes mellitus Meningioma: Catalog Name: Benign neoplasm of meninges, unspecified Medical History: Meningioma: Catalog Name: Benign neoplasm of meninges, unspecified COPD (chronic obstructive pulmonary disease): Catalog Name: Chronic obstructive pulmonary disease, unspecified Type II diabetes mellitus: Catalog Name: Type 2 diabetes mellitus without complications HTN (hypertension): Catalog Name: Essential (primary) hypertension Surg History: History of resection of meningioma: Catalog Name: Other specified postprocedural states Hypoxemia: Onset Date: 16-Feb-2018, Catalog Name: Hypoxemia Prelim Disch Dx: Leukocytosis: Catalog Name: Elevated white blood cell count, unspecified Aspiration pneumonia due to food (regurgitated): Catalog Name: Pneumonitis due to inhalation of food and vomit MRSA pneumonia: Catalog Name: Pneumonia due to Methicillin resistant Staphylococcus aureus Electronic Signatures: Cindy Pearson) (Signed 18-Apr-2018 20:42) Authored: Profile, Additional Information Last Updated: 18-Apr-2018 20:42 by Cindy Pearson (JANIYA) References: 1. Data Referenced From Patient [facility] - Adult v2 02/10/2018 07:45 PM ADMISSION RISK SCREEN Observed: 04/18/2018 Status: UNK Source: [facility] - ADULT 8:02 PM HOSPITALS REPOSITORY Allergies: Allergies: Codeine Sulfate: Unknown penicillin: Unknown insulin: Unknown Intolerances: Aspir 81: GI Upset Patient Verification: New W ID Band Applied in my Departmentyes Patient Identity Verified Bypatient ID Band FULL Name, include Middle, spelling matches patient's ID used for verificationyes ID Band Matches Patient ID used for Verficationyes ID Band MRN Matches EMR MRNyes Advance Directive: Advance Directive Medicalno Advance Directive Information Givenpatient/family declined Falls Screen: Type of Assessmentadmission Moderate Risk Factorsaltered elimination High Risk Factorsgait instability Risk for Injury Associated with Fallnone Fall Risk Conclusionhigh falls risk with low risk for associated injury [place] Safety InterventionsWDL *orient to call system *instruct to call for assistance before getting out of bed *non-slip footwear when patient is out of bed *call kam in reach *personal items and telephone in reach *physically safe environment (no spills or clutter) *bed in lowest position with wheels locked *appropriate side rails in place *room/bathroom lighting operational, light cord in reach *appropriate signage on door Family Violence Screen: Are you or have you been threatened or abused physically, emotionally, or sexually by anyoneno Do you feel UNSAFE going back to the place where you are livingno Clinical assessment: Are there any apparent signs of injuries/behaviors that could be related to abuse/neglectno Social Service Consult for abuse/neglect needed this visitno Functional screen: Functional Screen: In the recent/past 2-4 weeks, patient or family have noticeda significant change in speech or language, a significant change in function affecting balance, or the ability to safely transfer or ambulate (And is not on bedrest) Learning Assessment (Patient): Patient is Able to be Assessed for Learningyes Factors Influencing Readiness to Learnacuteness of illness Factors that Impact Ability to Learnacuteness of illness, cognitive limitations, physical limitations Devices/Methods Used to Communicatenone Learning Preferencesverbal instruction Cultural Considerationsnone Developmental Considerationsnone Quaker Considerationsnone Learning Assessment (Other Learner): Other learner availableno Suicide/Depression Screen: During the past month, have you often been bothered by feeling down, depressed or hopelessno During the past month, have you often had little interest or pleasure in doing thingsno Have you had any thoughts of harming yourselfno Have you had any thoughts of harming anyone elseno Adult Nutrition Screen: Have you recently lost weight without tryingunsure Have you been eating poorly because of a decreased appetiteno MST Score2 RiskMST = 2 or more At Risk. Eating poorly and/or recent weight loss Additional Risk (Order Nutrition Consult)tube feeding or parenteral nutrition Nutrition Consult needed this visityes Can Patient Participate in Room Serviceno Patient requires Paper Dishes/Plastic Utensilsno Pain Screen: Pain Scalenumerical 0-10 Pain Scale Educationteaching provided Current Pain Level0 = None Acceptable Pain Level0 = None Expression of Pain (nonverbal)none Chronic Painno Spiritual Screen: Are there any cultural, spiritual, voodoo practices/values/needs that are important for us to knowno CAGE: Is this an injured patient at a Trauma Center ([facility] / [facility]): no Vaccinations: Vaccination - Influenza Vaccination Screen: Is it flu season (between and )Yes Screening for identified contraindications to influenza vaccinationpatient already received vaccine this season Vaccination - Pneumonia Vaccination Screen: Patient has received a previous pneumonia vaccine:yes Rikki: Skin - Rikki Scale: Rikki: Sensory Perception (response to environment)(3) slightly limited Rikki: Moisture (degree skin exposed to moisture)(3) occasionally moist Rikki: Activity (ability to walk)(1) bedfast Rikki: Mobility (amount/control of body movement)(2) very limited Rikki: Nutrition (quality of food intake)(3) adequate Rikki: Friction and Shear(2) potential problem Rikki: Score14 Skin Intervention Orders (Nursing orders will be generated)elevate heels, up in chair < 1 hr intervals, turn side to side every 2 hrs, assess for therapeutic equipment, assess pressure points, hygiene care, toilet/ADL every 2 hrs awake, toilet/ADL every 4 hrs asleep, educate prevent/treat pressure ulcer Significant Indicatiors: Significant Indicators: Complete Pressure Injury: Pressure Injury Present on Admissionyes Pressure Injury: Image has been removed. Pressure Injury Photo Takenyes Electronic Signatures: Cindy Pearson (JANIYA) (Signed 18-Apr-2018 20:29) Authored: Admission Risk Screens, Vaccinations, Rikki, Pressure Injury Last Updated: 18-Apr-2018 20:29 by Cindy Pearson) EMERGENCY DEPARTMENT Observed: 04/18/2018 Status: F Source: [facility] SUMMARY 3:21 PM [facility] REPOSITORY [facility] Medical Records Department [address] [place] [address] Emergency Department Summary 04/18/18 1517 MR#: [id number] Acct: [id number] Name: DIPESH CARR Rep #: [id number] : 1950 67 From: Riccardo Robles MD PCP: Kamilah Lopez Status: REG ER - ER Visit Summary Date of Service: 04/18/18 Chief Complaint: Cough History of Present Illness: The patient is a 67 M with a recent hospitalization at [facility] complicated by respiratory failure. He was doing well at a local shelter facility but over the past 2 days has developed a productive cough and fever. He has vomited 1-2 times but has not had abdominal pain or other complaints. His mental status has remained essentially at baseline except for occasional episodes of confusion but no new neurologic symptoms. Physical Examination: Vitals are within normal limits except for a pulse ox of 90% on room air. He is not in distress. His mucous members are somewhat dry. Breath sounds are diminished at both bases but he has an audible productive moist cough. Abdomen is soft and nontender. He has no focal or lateralizing neuro findings. He is alert and oriented x3. Test Results: White blood cell count is 17,100. Chemistries essentially within normal limits. Chest x-ray revealed a left lower lobe infiltrate. Blood and sputum cultures were sent. Urinalysis is pending. Emergency Department Course and Treatment: He was given intravenous Levaquin and started to have a rash around the injection site so was discontinued. I discussed the case at length with his nephew who is his power of attorney law clerk. He feels strongly that this is a pneumonia and there is no evidence of any other source of the infection at this time. He has no abdominal pain or tenderness at all. His nephew requested that he be transferred to [facility]. I spoke with the hospitalist through the transfer line but his nephew did notify that he spoke with the chief cardiopulmonary technologist of the hospital and the director of the intensive care unit who are going to assume care on a different service but that this is going to be arranged through the transfer line. He has been accepted at [facility] and we are waiting for a bed assignment. Treatment Plan: Transfer to [facility] Disposition: Transfer, stable Impression: Initial encounter healthcare associated pneumonia This note was generated with [employer] dictation software. It may contain incorrect words, spelling, and punctuation that were not noted in review of the chart prior to signing ED Disposition - Plan for ED Patient: Chief Complaint: Nausea/Vomiting/Diarrhea Referrals: Kamilah Lopez [Primary Care Provider] - What to do if you have Problems For any increased pain, shortness of breath, bleeding, nausea or vomiting, chest pain, or any unexpected problems, contact your Primary Care Provider. Call [facility] ([phone]) or report to the closest Emergency Room. Call 911 if necessary. 04/18/18 1521 <Electronically signed by Riccardo Robles MD> Date Riccardo Robles MD Cosigner Signature (If Indicated): Date CC: Kamilah Lopez; Kamilah Loepz MD Observed: 04/18/2018 Status: F Source: [facility] INFLUENZA A+B (RAPID 12:35 PM [facility]) REPOSITORY Order Date: 04/18/18 FLU A/B Rapid Negative test results should be confirmed by culture. Order Rapid Viral Culture for Influenzae A+B ([id number]) if clinically indicated. Influenza Ag, Direct Presumptive NEGATIVE for Influenza A/B Antigen (See Note) Performed By: #### M101.0101 #### [facility] [place], [address] CBC W/DIFF, AUTOMATED Collected: 04/18/2018 Status: F Source: [place] 12:30 PM [facility] REPOSITORY TYPE CODE TESTS RESULT OUT OF RANGE REFERENCE UNITS LAB L100.1000 4.4-11.0 K/mm3 High WBC 17.1 LAB L100.1200 4.6-6.2 M/mm3 Low RBC 4.48 LAB L100.1300 13.0-16.5 g/dl Normal HGB 13.4 LAB L100.1400 40-54 % Normal HCT 41.4 LAB L100.1500 80-94 fL Normal MCV 92.4 LAB L100.1600 27.0-32.0 pg Normal MCH 29.9 LAB L100.1700 32-36 g/gl Normal MCHC 32.4 LAB L100.1810 11.6-14.6 % High RDW CV 15.0 LAB L100.1820 35.1-43.9 fl High RDW SD 49.4 LAB L100.1900 150-450 K/mm3 Normal PLT 236 LAB L100.2000 6.2-12.0 fl Normal MPV 10.7 LAB L100.2100 47-70 % High NEUT% 83.4 LAB L100.2200 19-41 % Low LY% 8.5 LAB L100.2300 0-10 % Normal MONO% 6.0 LAB L100.2400 0-5 % Normal EO% 0.7 LAB L100.2500 0-1 % Normal BASO% 0.5 LAB L100.2550 0.0-0.9 % Normal IM GRAN % 0.900 Result Comment: IG% - Immature Granulocytes (promyelocytes, myelocytes and metamyelocytes) > 1% indicates that a LEFT SHIFT is Present. LAB L100.2620 2.0-7.7 X10 3/uL High Absolute Neut 14.3 LAB L100.2720 0.83-4.51 X10 3/ul Normal Absolute Lymph 1.45 Performed By: #### L100.0100 #### [facility] [address] [place], [place], [address] BASIC METABOLIC Collected: 04/18/2018 Status: F Source: [facility] PROFILE ([facility]) 12:30 PM [facility] REPOSITORY TYPE CODE TESTS RESULT OUT OF RANGE REFERENCE UNITS LAB L501.0100 74-106 mg/dL High GLU 135 Result Comment: Fasting Glucose result greater than or equal to 126 mg/dL suggests DIABETES MELLITUS per A.D.A. criteria. Please note revised GLUCOSE reference range effective 2017. LAB L501.1000 7-18 mg/dL High BUN 30 LAB L501.1100 0.70-1.30 mg/dL Low CREAT,SERUM 0.53 Result Comment: The validity of the calculated GFR AND GFRAA in patients over 70 years has not been determined. Clinical correlation is essential. LAB L501.1110 >60 mL/min Normal EST GFR 167 Result Comment: Non- GFR Calc LAB L501.1115 >60 mL/min Normal EST GFR - AA 202 Result Comment: GFR Calc LAB L501.1255 ml/min Normal Estimated CRCL 152.52 LAB L501.1300 10-20 RATIO High BUN/CRE 57.0 LAB L501.2200 8.5-10 mg/dL .1 CA Normal 9.2 LAB L501.5300 136-14 mmol/L Low 5 NA 132 LAB L501.5600 3.5-5. mmol/L 1 K Normal 4.8 LAB L501.5900 98-107 mmol/L Low CL 97 LAB L501.6100 21.0-3 mmol/L 2.0 CO2 Normal 31.0 LAB L501.6200 5-15 Low GAP 4 Performed By: #### L500.2500 #### [facility] [address] [place], [place], [id number] LACTIC ACID Collected: 04/18/2018 Status: F Source: [facility] 12:30 PM [facility] REPOSITORY Order Comment: Yes/No query for Sepsis Lactate Rule Y TYPE CODE TESTS RESULT OUT OF RANGE REFERENCE UNITS LAB L503.6005 0.4-2.0 mmol/L Normal LACTIC ACID 1.0 Performed By: #### L503.6005 #### [facility] [address] [place], [place], [address] BNP,B-TYPE NATRIURETIC Collected: 04/18/2018 Status: F Source: [facility] PEPTIDE 12:30 PM [facility] REPOSITORY TYPE CODE TESTS RESULT OUT OF RANGE REFERENCE UNITS LAB L503.6620 0-100 pg/mL High B-TYPE 196.7 JENNIFER PEP Performed By: #### L503.6620 #### [facility] [address] [place], [place], [address] Observed: 04/18/2018 Status: F Source: [facility] CULTURE, BLOOD (WB) 12:30 PM [facility] REPOSITORY PRELIM GRAM STAIN CALLED TO ER Dennis.ALL 28/09/17 AT 2100PM MAF PRELIM GRAM STAIN= GRAM NEG RODS POSITIVE AEROBIC BOTTLE BC PRELIM GRAM STAIN CALLED TO ER JENNIFER 28/09/17 AT 2100PM MAF PRELIM GRAM STAIN= GRAM NEG RODS POSITIVE AEROBIC BOTTLE ANAEROBIC BOTTLE:No growth in 5 days. ORGANISM 1: Brevundimonas vesicularis Amount Growth Growth Performed By: #### M200.1000 #### [facility] [address] [place], [address] CHEST 1 VIEW Observed: 04/18/2018 Status: F Source: [facility]CIAL (PORTABLE) 12:22 PM [facility] REPOSITORY [facility] Imaging Services [address] [place] [address] Chest 1 View (Portable) MR#: [id number] Acct: [id number] Name: DIPESH CARR Rep #: [id number] : 1950 67 From: Jose Trejo MD PCP: Kamilah Lopez Status: REG ER Study: Chest 1 View (Portable) Date of Exam: 04/18/18 Exam# [id number] Ordering Dr: Riccardo Robles MD STUDY: X-RAY CHEST REASON FOR EXAM: Male, 67 years old. Cough. Nausea and vomiting. TECHNIQUE: Single AP portable view of the chest. COMPARISON: None. FINDINGS: EKG electrodes are seen. There is blunting of the left costophrenic angle with mild increased markings at the left lung base. Follow-up is recommended. There is mild cardiac enlargement. Normal mediastinum and merrill. Normal visualized pulmonary arteries. There is atherosclerotic calcification of the aortic arch with tortuosity. There are diffuse degenerative changes of the visualized thoracic spine. Normal visualized ribs, clavicles, and shoulders. There is no demonstrated abnormality of the visualized soft tissue structures of the upper abdomen. RAD/Chest 1 View (Portable) IMPRESSION: Mild increased markings at the left lung base with blunting of the left costophrenic angle. Electronically Signed: Jose Trejo MD at 13:51 EST Tel [phone], Service support , CC: Kamilah Lopez; Сергей Robles MD Shoe Polisher: Signed ESTABLISHED VISIT Observed: 04/11/2018 Status: UNK Source: [facility] ([facility]UROSURGERY) 3:42 PM HOSPITALS REPOSITORY Chief Complaint Patient is being seen for a follow-up Neurosurgical visit. History of Present Illness Mr. BERMUDEZ is a very nice 67 year year old man here for post-operative visit s/p 02/11/18 left posterior fossa crani for tumor resection. doing ok; he is in SNF he has no complaints today; denies headaches; he is NPO on tube feeds. he is off oxygen Active Problems Problems Brain lesion (348.89) (G93.9) Meningioma (225.2) (D32.9) Family History Mother No pertinent family history Social History Problems Current every day smoker (305.1) (F17.200) Allergies Medication aspirin Recorded By: Yaneth Ocampo; 10/14/2017 8:35:55 AM codeine Recorded By: Yaneth Ocampo; 10/14/2017 8:35:55 AM Penicillins Recorded By: Yaneth Ocampo; 10/14/2017 8:35:55 AM sulindac Recorded By: Yaneth Ocampo; 10/14/2017 8:35:55 AM Current Meds Medication NameInstruction Albuterol Sulfate (2.5 MG/3ML) 0.083% Inhalation Nebulization Solution Albuterol Sulfate HFA 108 MCG/ACT AERS AmLODIPine Besylate 10 MG Oral Tablet Atorvastatin Calcium 20 MG Oral Tablet Carboxymethylcellulose Sodium Granules Chlorthalidone 25 MG Oral Tablet Depakote 500 MG Oral Tablet Delayed Release Divalproex Sodium 500 MG Oral Tablet Delayed Release Glucose 4 GM Oral Tablet Chewable GuaiFENesin 400 MG Oral Tablet Hibiclens 4 % External LiquidUSE DIRECTED as preop shower Ketoconazole 2 % External Cream Levemir 100 UNIT/ML Subcutaneous Solution Lisinopril 40 MG Oral Tablet Loratadine 10 MG Oral Tablet Melatonin 3 MG Oral Tablet MetFORMIN HCl - 1000 MG Oral Tablet MiraLax Oral Packet Mometasone Furoate SKNS270 MCG/INH NovoLOG FlexPen 100 UNIT/ML SOLN RisperiDONE 3 MG Oral Tablet Sildenafil Citrate 100 MG Oral Tablet Tolnaftate 1 % External Cream TraZODone HCl - 100 MG Oral Tablet Physical Exam awake and alert speech slow but fluent;' he is oriented to person not to place moves all extremities; face is symmetric nonambulatory Diagnoses/Problems Assessed Meningioma (225.2) (D32.9) Orders Meningioma Education Material Provided for Patient; Status:Complete - Retrospective Authorization; Done: 11Apr2018 Last Updated By:Flores Stevenson; 04/11/2018 3:38:59 PM;Ordered; For:Meningioma; Ordered By:Augustine Cardoza; Provider Impressions slow recovery following debulking of 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 continue therapies and follow up in 6 months with MRI Signatures Electronically signed by : Augustine Cardoza MD; Apr 11 2018 3:42PM EST (Author) DISCHARGE SUMMARY Observed: 04/04/2018 Status: COMPLETED Source: [facility] 8:22 PM HOSPITALS REPOSITORY Send Summary: Discharge Summary Providers: Provider RoleProvider Name AttendingShagufta Ramirez Helen E Note Recipients: Christy Esquivel MD - [id number] [] Allie Parada MD Discharge: Summary: Admission Date: .10-Feb-2018 16:08:00 Discharge Date: 04-Apr-2018 Attending Physician at Discharge: Shagufta Ramirez Admission Reason: craniotomy for tumor resection Final Discharge Diagnoses: Acute respiratory failure with hypoxia and hypercapnia, Aspiration pneumonia due to food (regurgitated), Brain stem compression, Brainstem stroke syndrome, Cerebral edema, COPD (chronic obstructive pulmonary disease), Delirium, acute, Dysphagia, Encephalopathy acute, HTN (hypertension), Hyperkalemia, Leukocytosis, Meningioma, MRSA pneumonia, Pseudomonas pneumonia, Type 2 diabetes mellitus, Procedures: Date: 11-Feb-2018 17:06:00 Procedure Name: left retrosigmoid craniotomy for tumor resection Date: 24-Feb-2018 23:13:00 Procedure Name: Lumbar puncture Lars Procedure Date: 02/21/2018 10:04 AM Date of : 1950 Admit Type: Inpatient Site: [place] Procedure Room 1 Ethnicity: Not or Race: White Attending MD: Jalen Feb 21, 2018 Condition at Discharge: Poor Disposition at Discharge: Shelter Facility Hospital Course: Mr Bermudez is a 67 y/o male with PMH of HTN, type II DM, COPD, left lung resection ( for unclear reasons), CYNTHIA refuses treatment, and meningioma s/p craniotomy with resection 2013 (at [facility]). Admitted 02/10 for repeat surgical resection of meningioma. 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 Postop course complicated by dysphagia, brainstem infarction and hypoxia concerning for aspiration PNA. Sputum grew MRSA. Seen by ENT for dysphagia, and flexible laryngoscopy showed generalized pharyngeal weakness with gross aspiration. PEG was placed on 02/21/18 with EGD at that time noting grade D esophagitis. On 02/24/18 neurosurgery performed lumbar puncture that was negative. Was in step down for 2 days and then transferred to medicine service on 03/02. He was continued on Vancomycin until 03/04, when ID was consulted for a persistent leukocytosis, up to 23K, they recommended stopping the vancomycin and starting linezolid. CT chest 03/04 showed significant worsening of now severe bronchial and bronchiolar wall thickening, worsening small airway disease, tree in bud changes, infectious bronchiolitis and likely aspiration. Head CT showed left occipital craniectomy and cranioplasty with associated pseudomeningocele and cortical resection defect at the lateral left cerebellum, mild cortical volume loss and slight ventricular dilatation. C. Diff PCR negative. Leukocytosis resolved with switching to Linezolid, with stop date 03/13. During the infectious work up an ultrasound duplex was completed of the BUE which revealed a left basilic occlusive thrombosis adjacent to the midline. No anticoagulation indicated for this, line was removed. New Midline in RUE placed 03/14. Brain MRI repeated 03/07, showing new irregular enhancement within the brainstem suggest evolving subacute infarction within the brainstem with the possibility of a minimal amount of superimposed more acute infarction (compared to initial MRI 02/10. On 03/12 O2 needs increased to NRB mask. CXR showed left chest complete opacified and CT chest 03/13 was negative for PE and revealed complete atelectasis of left lung. He was transferred to the MICU 03/13. Goals of care established no intubation but aggressive measures to reexpand lung. Attempted to utilize NIPPV but pt did not tolerate, refusing care and mask, tried nasal mask and that was not tolerated either. IPV, vest therapy, and NT suction did reexpand the lung by 03/16 but then it partially (LLL) recollapsed 03/17. Over the last 3 days his lung has remained expanded and O2 weaned to room air. MICU team met with family, the Cyber Software Engineer (had been contacted by family), and MICU team and goals of care established further. He will go only to SDU where pulmonary needs can be met, then from there to LTACH for ongoing care. Family was to select a facility over this past weekend. SDU course He is now transferred to [facility]. Upon arrival patient was sleeping, mildly arousable. He was on room air, having episodes of apnea with POx drop to 87% during apneic episodes. RT called to place patient on CPAP. After he was placed on CPAP (auto pap as per previous MICU orderers) POx improved to upper 90s. During the day, pt continue to be drowsy, unable to assess LOC due to level drowsiness, grimacing to painful stimulation. Patient was kept on auto CPAP.Chest Xray order this morning 03/22 with improvement compared to 03/21 Cxray. ABG showed 7.48/37/74/98 HCO3 (27.4). Repeat VBG 7.41/46/36/HCo3 29.2 Code Bat called by Dr Ramirez. Head CT scan done w/o new acute findings. Per neuro stroke likely metabolic encephalopathy. Repeat brain MRI on 03/23 did not show any changes in comparison to prior exam. Hold melatonin and Risperidone, narcotics continue O2 via NC 2L and CPAP at night oxygenation support continue treatement for PSA PNA with levaquin (start on 03/21, plan for 7-10 days of therapy)-stopping on 04/04 03/27-03/29 - Left lower lobe collapse noted on CXR and continues to have leukocytosis. ID consulted, with repeat cultures and C-diff samples negative. NO increase in oxygen needs and aggressive pulmonary toileting contiued. Patient was weaned off aggressive pulmonary hygiene. On 03/31 right arm DVT study showed acute occlusive brachial DVT at midline site. Midline removed, no anticoagulation. Will need to repeat DVT study in 1 month. PT/OT/MANAGER PROCESS IMPROVEMENT rec discharge to a SNF. Nephew was called and updated prior to transferring patient to facility. Medical History: Meningioma: COPD (chronic obstructive pulmonary disease): Type II diabetes mellitus: HTN (hypertension): Surg History: History of resection of meningioma: Hypoxemia: Onset Date: 16-Feb-2018 Discharge Information: and Continuing Care: Discharge Instructions: Activity: activity with assistance. Weight-bearing Instructions: weight-bearing as tolerated. Nutrition/Diet: nothing by mouth Tube Feeding Product: Diabetic Source AC Feeding Route: PEG (percutaneous Endoscopic Gastric) Frequency of Feeding: continuous Rate Per Hour: 80 Comments: 60 ml free water flushes before feeds, after feeds, and in between feeds Labs: Lab Test(s): Basic Metabolic Panel, CBC, Magnesium Date To Be Drawn: twice weekly Call Results To: facility provider Fax Results To: facility provider Wound Care: Wound Site: Left craniotomy surgical incision Wound Type: surgical incision Cleanse With: soap and water Cover With: no dressing, leave open to air Instructions: no lotions, creams, or tub soaks Wound Site: Stage 1- right buttocks Wound Type: pressure ulcer Cover With: no dressing, leave open to air Instructions: no lotions, creams, or tub soaks Respiratory: Ventilation Type: CPAP Auto CPAP 4-20 Frequency: at night O2 LPM (Liters per Minute) or FIO2: 2 Inspiratory Pressure: 4-20 Monitors: Type: pulse oximetry Frequency: as needed Additional Orders: Blood Glucose Monitoring: every 6 hours Vital Signs: per facility protocol Weight: daily Rehab Services: Occupational Therapy Orders: Eval and Treat ([facility]) daily 2 times/day Physical Therapy Orders: Eval and Treat ([facility]) daily 2 times/day Speech Therapy Orders: Eval and Treat ([facility]) 1-3 times/week Infectious Disease: PPD Status: not given MRSA: yes MRSA Site: sputum VRE: no C. Diff: no Other Resistant Organism: no Isolation Type: Contact, Droplet Care Recommendation: I recommend that INPATIENT care is required at:: Skilled Estimated Stay: Convalescent stay < 30 days Follow Up Appointments: Follow-Up Appointment 01: Physician/Dept/Service: Dr. Cardoza - Neurosurgery Scheduled Date/Time: 11-Apr-2018 15:15 Location: [address], [place] [id number] Follow-Up Appointment 02: Physician/Dept/Service: Dr. Christian Silva - Gastroenterology Scheduled Date/Time: 06-Jun-2018 10:00 Location: [address] [place] [address] [address] [address] Discharge Medications: Home Medication docusate sodium 10 mg/mL oral liquid - 10 milliliter(s) via peg 2 times a day polyethylene glycol 3350 oral powder for reconstitution - 17 gram(s) via peg once a day esomeprazole 40 mg oral powder for reconstitution, delayed release - 1 packet(s) by nasogastric tube 2 times a day insulin glargine 100 units/mL subcutaneous solution - 30 unit(s) subcutaneous every 24 hours simethicone 40 mg/0.6 mL oral liquid - 1.2 milliliter(s) orally 4 times a day (after meals and at bedtime) saliva substitutes oral solution - 5 milliliter(s) orally 4 times a day budesonide 0.5 mg/2 mL inhalation suspension - 2 milliliter(s) inhaled every 12 hours nystatin 100,000 units/mL oral suspension - 5 milliliter(s) orally every 6 hours enoxaparin - 40 milligram(s) subcutaneous every 24 hours insulin lispro 100 units/mL injectable solution - subcutaneous every 6 hours; Hypoglycemia Protocol Call LIP unit(s) if Blood Glucose is between 0 - 70 0 unit(s) if Blood Glucose is between 71 - 150 2 unit(s) if Blood Glucose is between 151 - 200 4 unit(s) if Blood Glucose is between 201 - 250 6 unit(s) if Blood Glucose is between 251 - 300 8 unit(s) if Blood Glucose is between 301 - 350 10 unit(s) if Blood Glucose is between 351 - 400 Notify Physician unit(s) if Blood Glucose is greater than 400 silodosin 8 mg oral capsule - 1 cap(s) by nasogastric tube once a day valproic acid 250 mg/5 mL oral syrup - 10 ml via peg tube every night albuterol 2.5 mg/3 mL (0.083%) inhalation solution - 3 milliliter(s) inhaled every 6 hours formoterol 20 mcg/2 mL inhalation solution - 2 milliliter(s) inhaled every 12 hours fluticasone-salmeterol 250 mcg-50 mcg inhalation powder - inhaled twice a day guaiFENesin 100 mg/5 mL oral liquid - 20 milliliter(s) via peg every 6 hours atorvastatin 40 mg oral tablet - orally once a day (at bedtime) PRN Medication acetaminophen 325 mg oral tablet - 2 tab(s) via peg every 6 hours, As needed, Pain - Mild (1-3) bisacodyl 10 mg rectal suppository - 1 suppository(ies) rectal once a day, As needed, if no BM in the previous 36 hours Lab Results - Pending: None Radiology Results - Pending: Midline Placement in Radiology (greater than 5 years) at 14-Mar-2018 10:29:00 Midline Placement in Radiology (greater than 5 years) at 15-Feb-2018 16:32:00 Signature/Cosignature/Attestation: Attending Only - Shared Visit with Advanced Practice ProviderThis is a shared visit. I have reviewed the Advanced Practice Providers encounter note, approve the Advanced Practice Providers documentation, and provide the following additional information from my personal encounter. Comments/ Additional Findings I saw and evaluated the patient. I personally obtained the gonzalez and critical portions of the clinical data. The above reflect my findings, assessment and management plans. Electronic Signatures: Evelin Hernadez ([employer] OPERATOR-GROUP MANAGER) (Signed 04-Apr-2018 20:31) Authored: Send Summary, Summary Content, Medical History, Ongoing Care, Signature/Cosignature/Attestation Shagufta Ramirez) (Signed 10-Apr-2018 14:17) Authored: Send Summary, Summary Content, Ongoing Care, Signature/Cosignature/Attestation Co-Signer: Send Summary, Summary Content, Medical History, Ongoing Care, Signature/Cosignature/Attestation Last Updated: 10-Apr-2018 14:17 by Shagufta Ramirez) GLUCOSE-POCT Collected: 04/04/2018 Status: F Source: [facility] 5:46 PM HOSPITALS REPOSITORY TYPE CODE TESTS RESULT OUT OF RANGE REFERENCE UNITS LAB GLUP(LOINC) 74 - 99 mg/dL High 159 GLUCOSE-POCT Performed By: #### GLUPO #### [facility] [address] [place] [address] GLUCOSE-POCT Collected: 04/04/2018 Status: F Source: [facility] 11:38 AM HOSPITALS REPOSITORY TYPE CODE TESTS RESULT OUT OF RANGE REFERENCE UNITS LAB GLUP(LOINC) 74 - 99 mg/dL High 186 GLUCOSE-POCT Performed By: #### GLUPO #### [facility] [address] [place] [address] DAILY PROGRESS Observed: 04/04/2018 Status: COMPLETED Source: [facility] NOTE-PULMONOLOGY 8:25 AM HOSPITALS REPOSITORY Service: Pulmonology Subjective Data: DIPESH BERMUDEZ is a 67 year old Male who is Hospital Day # 54 and POD #52 for left retrosigmoid craniotomy for tumor resection. no complaints this morning. Additional Information: Hemodynamically stable, awake, cooperative, soft voice. Remains on room air w/o any evidence of worsening of respiratory status. Plan for discharge today. Objective Data: Objective Information: Moshe PRBPSpO2 [id number]% Date/Time04/04 8: 8: 8: 8: 8:00 Range(36C - 36.6C ) (78 - 87 ) (17 - 25 ) (105 - 140 )/ (72 - 95 ) (92% - 97% ) Weights 04/04 3:00: Weight in kg (Weight (kg)) 87.6 04/04 3:00: Weight in lbs ((lbs)) 193.3 ---- Intake and Output ----- Mn/Dy/Year TimeIntakeOutputNet Apr 04, 2018 6:00 [id number] Apr 03, 2018 10:00 [id number] The Intake and Output Totals for the last 24 hours are: IntakeOutputNet [id number] Physical Exam: Constitutional: awake, cooperative, refused to answer his name, place or time, but cooperative with commands, pt with right sided weakness (not new finding), + dysarthria Eyes: pupils +3 equal reactive to light ENMT: mucous membrane dry, white coated tongue Head/Neck: nc/at Respiratory/Thorax: clear lung sounds, no wheezing rales or rhonchi, low lung volume Cardiovascular: RRR, s1/s 2 no s3/s4 no GMR + radial and dp Gastrointestinal: abd soft nontender, peg tube Musculoskeletal: strength 3/3 LUE, 2/2 LLE, 1/1 bilateral right UE and LE, no edema Extremities: no cyanosis edema, contusions or wounds, no clubbing Neurological: awake, alert cooperative, smililing on exam, but refusing to answer LOC questions Psychological: Appropriate mood and behavior Skin: warm dry, no edema Medication: Medications: Continuous Medications No continuous medications are active Scheduled Medications 1. Albuterol 2.5 mg/ 3 mL Nebulizer Soln: 3 mL Inhalation Every 6 Hours 2. Atorvastatin: 40 mg Oral Daily 3. Budesonide 0.5 mg/ 2 mL Nebulizer Soln: 2 mL Inhalation Every 12 Hours 4. Docusate 50 mg - Senna 8.6 m tablet(s) Oral 2 Times a Day 5. Enoxaparin SubCutaneous: 40 mg SubCutaneous Every 24 Hours 6. Esomeprazole Oral Packet: 40 mg PEG Tube 2 Times a Day 7. Insulin Glargine (Lantus) Injectable: 30 unit(s) SubCutaneous Every 24 Hours 8. Insulin Lispro Mild Corrective Scale: unit(s) SubCutaneous Every 6 Hours 9. levoFLOXacin 750 mg IVPB/ Premix 150 mL: 150 mL IntraVenous Piggyback Every 24 Hours 10. Nicotine 7 mg/ 24 hour TransDermal: 1 patch TransDermal Every 24 Hours 11. Nystatin Oral Liquid: 838162 unit(s) Oral Every 6 Hours 12. Petrolatum Topical: 1 application(s) Topical 2 Times a Day 13. Saliva Substitute: 5 mL Oral 4 Times a Day 14. Silodosin (NON - Formulary): 8 mg NasoGastric Tube Daily 15. Simethicone Oral Liquid Drops: 80 mg Oral 4 Times a Day After Meals 16. Valproic Acid (Depakene) Oral Liquid: 250 mg PEG Tube Every 12 Hours PRN Medications 1. Acetaminophen: 650 mg Oral Every 6 Hours 2. Bisacodyl Rectal: 10 mg Rectal Daily 3. Dextrose 50% in Water Injectable: 25 gram(s) IntraVenous Push Every 15 Minutes 4. Glucagon Injectable: 1 mg IntraMuscular Every 15 Minutes 5. Ondansetron Injectable: 4 mg IntraVenous Push Every 6 Hours 6. Polyethylene Glycol: 17 gram(s) Oral Daily Recent Lab Results: Results: I have reviewed these laboratory results: Glucose_POCT Trending View [id number] 05:52:00 04-Apr-2018 00:18:00 [id number] H 167 H Assessment and Plan: Assessment: Patient is 67 year old male who is s/p meningioma resection on 02/11 c/b L brainstem infarction, dysphagia and dysarthria, Right sided weakness, hypoxemic respiratory failure (treated for MRSA), AMS, now undergoing treatment for PSAG. Transfer to SDU on 03/22 for aggressive pulmonary toileting for left lobe collapse. REspiratory remained stable for the last week, awaiting LTAC Neuro: s/p meningioma resection on 02/11 c/b L brainstem infarction, dysphagia and dysarthria, right sided weakness. c/b AMS, difficult to arouse in the SDU on 03/22 s/[address] Head CT scan w/o acute findings. Patient at high risk for metabolic encephalopathy Pt with prolong hospitalization, undergoing infection treatment, polypharmacy. - continue Valproid Acid - holding trazodone, risperidone, melatonin - PT/OT/MANAGER PROCESS IMPROVEMENT following - s/p head CT scan 03/22 (w/o no new acute findings per neuro stroke) - MRI brain with no acute findings compared prior MRI 03/07) - will continue to provide supportive care Pulm: Hx of COPD. Acute hypoxic respiratory failure. Treated for MRSA PNA. Currently, undergoing treatment for PSAG pneumonia. Patient remains hemodynamically stable, on room air. - pt stable off aggressive therapy - incentive spirometer - will continue Levaquin for PSA coverage- Stop today 04/04 per ID recs - continue budesonide, albuterol prn - will continue auto CPAP and RA during the day (while off CPAP) - IPV-per SNF facility they can only provide Caugh assist, which is likely not beneficial to patient ID: Leukocytosis resolved, remains afebrile. Currently with PSA in the sputum (03/21). - sputum cx 02/24 grew MRSA - Treated for MRSA PNA (Vanco 02/17-02/22, 02/25-03/04) - Abx: Kvng (02/24-02/28) - cont Levofloxacin for PSA coverage ( 03/21 stop 04/04) - can transition to PEG route for DC - ID following, per ID recs - c-diff (neg.), blood culture (NGTD), sputum culture (does not provide adequate sputum), UA/culture (neg.) Cardiac: hx of HTN, remains HD stable - will continue to hold home amlodipine, HCTZ and Lisinopril for now - continue statin Heme: -pt with right brachial acute occlusive DVT at midline site, found on 03/31 UE US. Line removed, no AC (d/t risk/benefit) -will need to repeat US in 1 month to f/u FEN/GI: Severe dysphagia 2/2 L brainstem infarction.s/p Peg tube 02/21. Tolerating tube feeds - continue bowel regimen - s/p EGD 02/21 showing LA grade D esophagitis - continue PPI twice a day x 3 months - Replete electrolytes as needed - daily RFP Renal: no issues Endo: IDDM - continue Lantus 30 units (40 units home dose) - mild corrective insulin scale as needed - hypoglycemia protocol ordered as needed - holding home 70/30 insulin PPX: cont lovenox and scds DNAR/DNI lines: midline Dispo: patient hemodynamically stable - discharge to facility today awaiting for transportation confirmation A and P discussed with Dr Ramirez Signature/Cosignature/Attestation: Attending Only - Shared Visit with Advanced Practice ProviderThis is a shared visit. I have reviewed the Advanced Practice Providers encounter note, approve the Advanced Practice Providers documentation, and provide the following additional information from my personal encounter. Comments/ Additional Findings I saw and evaluated the patient. I personally obtained the gonzalez and critical portions of the clinical data. The above reflect my findings, assessment and management plans. Electronic Signatures: Shagufta Ramirez) (Signed 18-Apr-2018 12:01) Authored: Signature/Cosignature/Attestation Co-Signer: Signature/Cosignature/Attestation Brittany Cool ([employer] OPERATOR-GROUP MANAGER) (Signed 04-Apr-2018 13:50) Authored: Service, Subjective Data, Objective Data, Assessment and Plan, Signature/Cosignature/Attestation Last Updated: 18-Apr-2018 12:01 by Shagufta Ramirez) GLUCOSE-POCT Collected: 04/04/2018 Status: F Source: [facility] 5:52 AM HOSPITALS REPOSITORY TYPE CODE TESTS RESULT OUT OF RANGE REFERENCE UNITS LAB GLUP(LOINC) 74 - 99 mg/dL High 138 GLUCOSE-POCT Performed By: #### GLUPO #### [facility] [address] [place] [address] CBC Collected: 04/04/2018 Status: CANCELLED Source: [facility] 2:29 AM HOSPITALS REPOSITORY Order Comment: TEST CBC WAS CANCELLED, 04/05/2018 07:49 NO SPECIMEN RECEIVED IN LAB. TYPE CODE TESTS RESULT OUT OF REFERENCE UNITS RANGE LAB WBCR(LOINC ) WBC Canceled LAB NRBC(LOINC ) NUCLEATED RBC Canceled LAB RBCCT(LOIN C) RBC Canceled LAB HGB(LOINC) HGB Canceled LAB HCT(LOINC) HCT Canceled LAB MCV(LOINC) MCV Canceled LAB MCHC2(LOIN C) MCHC Canceled LAB PLTCT(LOIN C) PLT Canceled LAB RDWCV(LOIN C) RDW-CV Canceled Performed By: #### CBC #### [facility] [address] [place] [address] MAGNESIUM Collected: 04/04/2018 Status: CANCELLED Source: [facility] 2:29 AM HOSPITALS REPOSITORY Order Comment: TEST MAGNESIUM WAS CANCELLED, 04/05/2018 07:49 NO SPECIMEN RECEIVED IN LAB. TYPE CODE TESTS RESULT OUT OF REFERENCE UNITS RANGE LAB MG(LOINC) MAGNESIUM Canceled Performed By: #### MG #### [facility] [address] [place] [address] RENAL FUNCTION PANEL Collected: 04/04/2018 Status: CANCELLED Source: [facility] 2:29 AM HOSPITALS REPOSITORY Order Comment: TEST RENAL FUNCTION PANEL WAS CANCELLED, 04/05/2018 07:49 NO SPECIMEN RECEIVED IN LAB. TYPE CODE TESTS RESULT OUT OF REFERENCE UNITS RANGE LAB GLU(LOINC) GLUCOSE Canceled LAB SOD(LOINC) SODIUM Canceled LAB K(LOINC) POTASSIUM Canceled LAB CHLOR(LOIN C) CHLORIDE Canceled LAB BIC(LOINC) BICARBONATE Canceled LAB ANGAP(LOIN C) ANION GAP Canceled LAB UREA(LOINC ) UREA NITROGEN Canceled LAB CREA(LOINC ) CREATININE Canceled LAB GFRFN(LOIN C) GFR-NON AM. Canceled LAB GFRAA(LOIN C) GFR- AM. Canceled Result Comment: CALCULATIONS OF ESTIMATED GFR ARE PERFORMED USING THE MDRD STUDY EQUATION FOR THE IDMS-TRACEABLE CREATININE METHODS. CLIN CHEM 2007;53:766-72 LAB CA(LOINC) CALCIUM Canceled LAB PHOS(LOINC) PHOSPHORUS Canceled Result Comment: The performance characteristics of phosphorus testing in heparinized plasma have been validated by the individual laboratory site where testing is performed. Testing on heparinized plasma is not approved by the FDA; however, such approval is not necessary. LAB ALB(LOINC) Canceled ALBUMIN Performed By: #### RENAL #### [facility] [address] [place] [address] GLUCOSE-POCT Collected: 04/04/2018 Status: F Source: [facility] 12:18 AM [facility]ITALS REPOSITORY TYPE CODE TESTS RESULT OUT OF RANGE REFERENCE UNITS LAB GLUP(LOINC) 74 - 99 mg/dL High 167 GLUCOSE-POCT Performed By: #### GLUPO #### [facility] [address] [place] [address] GLUCOSE-POCT Collected: 04/03/2018 Status: F Source: [facility] 5:45 PM [facility]ITALS REPOSITORY TYPE CODE TESTS RESULT OUT OF RANGE REFERENCE UNITS LAB GLUP(LOINC) 74 - 99 mg/dL High 115 GLUCOSE-POCT Performed By: #### GLUPO #### [facility] [address] [place] [address] GLUCOSE-POCT Collected: 04/03/2018 Status: F Source: [facility] 11:23 AM [facility]ALS REPOSITORY TYPE CODE TESTS RESULT OUT OF RANGE REFERENCE UNITS LAB GLUP(LOINC) 74 - 99 mg/dL High 159 GLUCOSE-POCT Performed By: #### GLUPO #### [facility] [address] [place] [address] DAILY PROGRESS Observed: 04/03/2018 Status: COMPLETED Source: [facility]ERSITY NOTE-PULMONOLOGY 8:40 AM [facility]ITALS REPOSITORY Service: Pulmonology Subjective Data: DIPESH BERMUDEZ is a 67 year old Male who is Hospital Day # 53 and POD #51 for left retrosigmoid craniotomy for tumor resection. denies pain, SOB, agrees to attempt sitting in cardiac chair today. Objective Data: Objective Information: ---- Intake and Output ----- Mn/Dy/Year TimeIntakeOutputNet Apr 03, 2018 6:00 [id number] Apr 02, 2018 10:00 [id number] Apr 02, 2018 2:00 [id number] The Intake and Output Totals for the last 24 hours are: IntakeOutputNet [id number] T PRBPSpO2 Value36.10181734/9293% Date/Time04/03 8: 8: 8: 8:00106/03 8:00 Range(35.8C - 36.5C ) (77 - 88 ) (11 - 25 ) (103 - 131 )/ (60 - 92 ) (92% - 97% ) Physical Exam: Constitutional: alert, no distress Eyes: anicteric sclera ENMT: mm pink, dry Head/Neck: normocephalic Respiratory/Thorax: coarse crackles left lower lobe Cardiovascular: RRR Gastrointestinal: abdomen soft, nontender Musculoskeletal: REMY Extremities: no edema Neurological: A/O to self Skin: warm, dry Medication: Medications: Continuous Medications No continuous medications are active Scheduled Medications 1. Albuterol 2.5 mg/ 3 mL Nebulizer Soln: 3 mL Inhalation Every 6 Hours 2. Atorvastatin: 40 mg Oral Daily 3. Budesonide 0.5 mg/ 2 mL Nebulizer Soln: 2 mL Inhalation Every 12 Hours 4. Docusate 50 mg - Senna 8.6 m tablet(s) Oral 2 Times a Day 5. Enoxaparin SubCutaneous: 40 mg SubCutaneous Every 24 Hours 6. Esomeprazole Oral Packet: 40 mg PEG Tube 2 Times a Day 7. Insulin Glargine (Lantus) Injectable: 30 unit(s) SubCutaneous Every 24 Hours 8. Insulin Lispro Mild Corrective Scale: unit(s) SubCutaneous Every 6 Hours 9. levoFLOXacin 750 mg IVPB/ Premix 150 mL: 150 mL IntraVenous Piggyback Every 24 Hours 10. Nicotine 7 mg/ 24 hour TransDermal: 1 patch TransDermal Every 24 Hours 11. Nystatin Oral Liquid: [id number] unit(s) Oral Every 6 Hours 12. Petrolatum Topical: 1 application(s) Topical 2 Times a Day 13. Saliva Substitute: 5 mL Oral 4 Times a Day 14. Silodosin (NON - Formulary): 8 mg NasoGastric Tube Daily 15. Simethicone Oral Liquid Drops: 80 mg Oral 4 Times a Day After Meals 16. Valproic Acid (Depakene) Oral Liquid: 250 mg PEG Tube Every 12 Hours PRN Medications 1. Acetaminophen: 650 mg Oral Every 6 Hours 2. Bisacodyl Rectal: 10 mg Rectal Daily 3. Dextrose 50% in Water Injectable: 25 gram(s) IntraVenous Push Every 15 Minutes 4. Glucagon Injectable: 1 mg IntraMuscular Every 15 Minutes 5. Ondansetron Injectable: 4 mg IntraVenous Push Every 6 Hours 6. Polyethylene Glycol: 17 gram(s) Oral Daily Assessment and Plan: Assessment: Patient is 67 year old male who is s/p meningioma resection on 02/11 c/b L brainstem infarction, dysphagia and dysarthria, Right sided weakness, hypoxemic respiratory failure (treated for MRSA), AMS, now undergoing treatment for PSAG. Transfer to SDU on 03/22 for aggressive pulmonary toileting for left lobe collapse. REspiratory remained stable for the last week, awaiting LTAC Neuro: s/p meningioma resection on 02/11 c/b L brainstem infarction, dysphagia and dysarthria, right sided weakness. c/b AMS, difficult to arouse in the SDU on 03/22 s/p Head CT scan w/o acute findings. Patient at high risk for metabolic encephalopathy Pt with prolong hospitalization, undergoing infection treatment, polypharmacy. - continue Valproid Acid - holding trazodone, risperidone, melatonin - PT/OT/MANAGER PROCESS IMPROVEMENT following - s/p head CT scan 03/22 (w/o no new acute findings per neuro stroke) - MRI brain with no acute findings compared prior MRI 03/07) - will continue to provide supportive care Pulm: Hx of COPD. Acute hypoxic respiratory failure. Treated for MRSA PNA. Currently, undergoing treatment for PSAG pneumonia. Left lower lobe collapsed on CXR this am - resume IPV for 24 hours - will continue Levaquin for PSA coverage- Stop date 04/04 per ID recs - continue budesonide, albuterol prn - will continue auto CPAP and RA during the day (while off CPAP) - IPV-per SNF facility they can only provide Caugh assist, which is likely not beneficial to patient - does not need inhaled hypertonic saline for DC ID: Leukocytosis resolved, remains afebrile. Currently with PSA in the sputum (03/21). - sputum cx 02/24 grew MRSA - Treated for MRSA PNA (Vanco 02/17-02/22, 02/25-03/04) - Abx: Kvng (02/24-02/28) - cont Levofloxacin for PSA coverage ( 03/21 stop 04/04) - can transition to PEG route for DC - ID following, per ID recs - c-diff (neg.), blood culture (NGTD), sputum culture (does not provide adequate sputum), UA/culture (neg.) Cardiac: hx of HTN, remains HD stable - will continue to hold home amlodipine, HCTZ and Lisinopril for now - continue statin Heme: -pt with right brachial acute occlusive DVT at midline site, found on 03/31 UE US. Line removed, no AC (d/t risk/benefit) -will need to repeat US in 1 month to f/u FEN/GI: Severe dysphagia 2/2 L brainstem infarction.s/p Peg tube 02/21. Tolerating tube feeds - continue bowel regimen - s/p EGD 02/21 showing LA grade D esophagitis - continue PPI twice a day x 3 months - Replete electrolytes as needed - daily RFP Renal: no issues Endo: IDDM - continue Lantus 30 units (40 units home dose) - mild corrective insulin scale as needed - hypoglycemia protocol ordered as needed - holding home 70/30 insulin PPX: cont lovenox and scds DNAR/DNI lines: midline Dispo: Keep patient in the SDU until DC likely Wednesday. Obtained Precert Wednesday evening, it is active until Thursday 04/05. Will monitor over weekend holding bronchial hygiene d/t stable respiratory function in preparation for d/c d/w Dr Up Signature/Cosignature/Attestation: Attending Only - Shared Visit with Advanced Practice ProviderThis is a shared visit. I have reviewed the Advanced Practice Providers encounter note, approve the Advanced Practice Providers documentation, and provide the following additional information from my personal encounter. Comments/ Additional Findings Patient agreeable to sit in chair. Somewhat slumped when I walked in. overall deconditioned. CXR personally reviewed and sublobar collapse on left. Will treat with aggressive pulmonary hygiene. Increased mobilization. Electronic Signatures: Digna Up) (Signed 03-Apr-2018 15:10) Authored: Signature/Cosignature/Attestation Co-Signer: Signature/Cosignature/Attestation Cherelle Juarez ([employer] OPERATOR-GROUP MANAGER) (Signed 03-Apr-2018 15:05) Authored: Service, Subjective Data, Objective Data, Assessment and Plan, Signature/Cosignature/Attestation Last Updated: 03-Apr-2018 15:10 by Digan Up) CBC Collected: 04/03/2018 Status: F Source: [facility] 7:00 AM [facility]ALS REPOSITORY TYPE CODE TESTS RESULT OUT OF REFERENCE UNITS RANGE LAB WBCR(LOINC 4.4 - 11.3 x10E9/L ) WBC High 13.2 LAB NRBC(LOINC 0.0-0.0 /100 WBC ) NUCLEATED RBC 0.0 LAB RBCCT(LOIN 4.50 - 5.90 x10E12/L C) Low RBC 4.10 LAB HGB(LOINC) 13.5 - 17.5 g/dL Low HGB 12.1 LAB HCT(LOINC) 41.0 - 52.0 % Low HCT 39.4 LAB MCV(LOINC) 80 - 100 fL MCV 96 LAB MCHC2(LOIN 32.0 - 36.0 g/dL C) Low MCHC 30.7 LAB PLTCT(LOIN 150 - 450 x10E9/L C) PLT 207 LAB RDWCV(LOIN 11.5 - 14.5 % C) High RDW-CV 16.9 Performed By: #### CBC #### [facility] [address] [place] [address] MAGNESIUM Collected: 04/03/2018 Status: F Source: [facility] 7:00 AM [facility] REPOSITORY TYPE CODE TESTS RESULT OUT OF REFERENCE UNITS RANGE LAB MG(LOINC) 1.60 - 2.40 mg/dL MAGNESIUM 2.00 Performed By: #### MG #### [facility] [address] [place] [address] RENAL FUNCTION PANEL Collected: 04/03/2018 Status: F Source: [facility] 7:00 [facility]ITALS REPOSITORY TYPE CODE TESTS RESULT OUT OF REFERENCE UNITS RANGE LAB GLU(LOINC) 74 - 99 mg/dL GLUCOSE High 166 LAB SOD(LOINC) 136 - 145 mmol/L Low SODIUM 134 LAB K(LOINC) 3.5 - 5.3 mmol/L POTASSIUM 4.6 LAB CHLOR(LOIN 98 - 107 mmol/L C) Low CHLORIDE 94 LAB BIC(LOINC) 21 - 32 mmol/L BICARBONATE 31 LAB ANGAP(LOIN 10 - 20 mmol/L C) ANION GAP 14 LAB UREA(LOINC 6 - 23 mg/dL ) UREA High NITROGEN 40 LAB CREA(LOINC 0.50 - 1.30 mg/dL ) CREATININE 0.61 LAB GFRFN(LOIN >60 mL/min/1.7 C) 3m2 GFR-NON AM. >60 LAB GFRAA(LOIN >60 mL/min/1.7 C) 3m2 GFR- AM. >60 Result Comment: CALCULATIONS OF ESTIMATED GFR ARE PERFORMED USING THE MDRD STUDY EQUATION FOR THE IDMS-TRACEABLE CREATININE METHODS. CLIN CHEM 2007;53:766-72 LAB CA(LOINC) 8.6 - 10.6 mg/dL CALCIUM 9.3 LAB PHOS(LOINC) 2.5 - 4.9 mg/dL PHOSPHORUS 3.3 Result Comment: The performance characteristics of phosphorus testing in heparinized plasma have been validated by the individual laboratory site where testing is performed. Testing on heparinized plasma is not approved by the FDA; however, such approval is not necessary. LAB ALB(LOINC) 3.4 - 5.0 g/dL Low ALBUMIN 2.8 Performed By: #### RENAL #### [facility] [address] [place] [address] GLUCOSE-POCT Collected: 04/03/2018 Status: F Source: [facility] 5:49 AM [facility] REPOSITORY TYPE CODE TESTS RESULT OUT OF RANGE REFERENCE UNITS LAB GLUP(LOINC) 74 - 99 mg/dL High 158 GLUCOSE-POCT Performed By: #### GLUPO #### [facility] [address] [place] [address] TH CHEST 1 VIEW Observed: 04/03/2018 Status: F Source: [facility] 4:41 AM [facility] REPOSITORY Patient Name: DIPESH BERMUDEZ STUDY: TH CHEST 1 VIEW; 04/03/2018 4:41 am INDICATION: Signs/Symptoms: pulmonary congestion f/u. COMPARISON: 04/01/2018 ACCESSION NUMBER(S): [id number] ORDERING CLINICIAN: EVELIN HERNADEZ FINDINGS: CARDIOMEDIASTINAL SILHOUETTE: Cardiomediastinal silhouette is normal in size and configuration. LUNGS: Slight interval worsening in left basilar atelectasis/effusion. No pneumothorax. ABDOMEN: No remarkable upper abdominal findings. BONES: No acute osseous changes. IMPRESSION: 1. Slight interval worsening in left basilar atelectasis and effusion. No pneumothorax Electronically signed by: Brnadee COTTER MD GLUCOSE-POCT Collected: 04/03/2018 Status: F Source: [facility] 12:37 AM [facility] REPOSITORY TYPE CODE TESTS RESULT OUT OF RANGE REFERENCE UNITS LAB GLUP(LOINC) 74 - 99 mg/dL High 155 GLUCOSE-POCT Performed By: #### GLUPO #### [facility] [address] [place] [address] GLUCOSE-POCT Collected: 04/02/2018 Status: F Source: [facility] 5:46 PM [facility]ALS REPOSITORY TYPE CODE TESTS RESULT OUT OF RANGE REFERENCE UNITS LAB GLUP(LOINC) 74 - 99 mg/dL High 169 GLUCOSE-POCT Performed By: #### GLUPO #### [facility] [address] [place] [address] GLUCOSE-POCT Collected: 04/02/2018 Status: F Source: [facility] 11:50 AM [facility] REPOSITORY TYPE CODE TESTS RESULT OUT OF RANGE REFERENCE UNITS LAB GLUP(LOINC) 74 - 99 mg/dL High 122 GLUCOSE-POCT Performed By: #### GLUPO #### [facility] [address] [place] [address] DAILY PROGRESS Observed: 04/02/2018 Status: COMPLETED Source: [facility]ERS[facility] NOTE-PULMONOLOGY 11:31 AM [facility]ALS REPOSITORY Service: Pulmonology Subjective Data: DIPESH BERMUDEZ is a 67 year old Male who is Hospital Day # 52 and POD #50 for left retrosigmoid craniotomy for tumor resection. no issues, denies pain. Objective Data: Objective Information: ---- Intake and Output ----- Mn/Dy/Year TimeIntakeOutputNet Apr 02, 2018 6:00 [id number] Apr 01, 2018 10:00 [id number] Apr 01, 2018 2:00 [id number] The Intake and Output Totals for the last 24 hours are: IntakeOutputNet [id number] Pain with Activity reported at 04/02 8:00: 0 Pain at Rest reported at 04/02 8:00: 0 T PRBPSpO2 Value36.39432550/8794% Date/Time04/02 8: 10: 10: 10: 10:00 Range(36.2C - 36.8C ) (75 - 93 ) (13 - 23 ) (103 - 135 )/ (63 - 89 ) (93% - 96% ) Physical Exam: Constitutional: alert, no apparent distress Eyes: anicteric sclera ENMT: mm pink, moist Head/Neck: normocephalic Respiratory/Thorax: clear Cardiovascular: RRR Gastrointestinal: abdomen soft, nontender, PEG Musculoskeletal: strength L>R Extremities: no edema Neurological: A/O to self, nods appropriately, R sided deficit Skin: warm, dry Medication: Medications: Continuous Medications No continuous medications are active Scheduled Medications 1. Albuterol 2.5 mg/ 3 mL Nebulizer Soln: 3 mL Inhalation Every 6 Hours 2. Atorvastatin: 40 mg Oral Daily 3. Budesonide 0.5 mg/ 2 mL Nebulizer Soln: 2 mL Inhalation Every 12 Hours 4. Docusate 50 mg - Senna 8.6 m tablet(s) Oral 2 Times a Day 5. Enoxaparin SubCutaneous: 40 mg SubCutaneous Every 24 Hours 6. Esomeprazole Oral Packet: 40 mg PEG Tube 2 Times a Day 7. Insulin Glargine (Lantus) Injectable: 30 unit(s) SubCutaneous Every 24 Hours 8. Insulin Lispro Mild Corrective Scale: unit(s) SubCutaneous Every 6 Hours 9. levoFLOXacin 750 mg IVPB/ Premix 150 mL: 150 mL IntraVenous Piggyback Every 24 Hours 10. Nicotine 7 mg/ 24 hour TransDermal: 1 patch TransDermal Every 24 Hours 11. Nystatin Oral Liquid: [id number] unit(s) Oral Every 6 Hours 12. Petrolatum Topical: 1 application(s) Topical 2 Times a Day 13. Saliva Substitute: 5 mL Oral 4 Times a Day 14. Silodosin (NON - Formulary): 8 mg NasoGastric Tube Daily 15. Simethicone Oral Liquid Drops: 80 mg Oral 4 Times a Day After Meals 16. Valproic Acid (Depakene) Oral Liquid: 250 mg PEG Tube Every 12 Hours PRN Medications 1. Acetaminophen: 650 mg Oral Every 6 Hours 2. Bisacodyl Rectal: 10 mg Rectal Daily 3. Dextrose 50% in Water Injectable: 25 gram(s) IntraVenous Push Every 15 Minutes 4. Glucagon Injectable: 1 mg IntraMuscular Every 15 Minutes 5. Ondansetron Injectable: 4 mg IntraVenous Push Every 6 Hours 6. Polyethylene Glycol: 17 gram(s) Oral Daily Recent Lab Results: Results: I have reviewed these laboratory results: Glucose_POCT Trending View [id number] 06:11:00 02-Apr-2018 00:43:00 [id number] H 165 H Complete Blood Count 02-Apr-2018 05:30:00 ResultValue White Blood Cell Count 12.9 H Nucleated Erythrocyte Count 0.0 Red Blood Cell Count 4.08 L HGB 12.1 L HCT 39.2 L MCV 96 MCHC 30.9 L PLT 204 RDW-CV 17.0 H Renal Function Panel 02-Apr-2018 05:30:00 ResultValue Glucose, Serum 178 H NA 131 L K 4.9 CL 94 L Bicarbonate, Serum 28 Anion Gap, Serum 14 BUN 43 H CREAT 0.64 GFR-Non >60 GFR- >60 Calcium, Serum 9.5 Phosphorus, Serum 3.0 ALB 2.9 L Magnesium, Serum 02-Apr-2018 05:30:00 ResultValue Magnesium, Serum 2.19 Radiology Results: Results: Conclusion: CONCLUSIONS: Right Upper Venous: Positive for aucte occlusive DVT of the right brachial vein. Brachial vein is noted to have IV line. Collateral was noted off axillary vein. Cephalic vein was not visualized. Basilic vein was compressible. Left Upper Venous: The subclavian demonstrates a normal spontaneous and phasic flow. [facility] Venous Duplex Ultrasound for DVT [Apr 02 2018 8:56AM] Assessment and Plan: Assessment: Patient is 67 year old male who is s/p meningioma resection on 02/11 c/b L brainstem infarction, dysphagia and dysarthria, Right sided weakness, hypoxemic respiratory failure (treated for MRSA), AMS, now undergoing treatment for PSAG. Transfer to SDU on 03/22 for aggressive pulmonary toileting for left lobe collapse. REspiratory remained stable for the last week, awaiting LTAC Neuro: s/p meningioma resection on 02/11 c/b L brainstem infarction, dysphagia and dysarthria, right sided weakness. c/b AMS, difficult to arouse in the SDU on 03/22 s/p Head CT scan w/o acute findings. Patient at high risk for metabolic encephalopathy Pt with prolong hospitalization, undergoing infection treatment, polypharmacy. - continue Valproid Acid - holding trazodone, risperidone, melatonin - PT/OT/MANAGER PROCESS IMPROVEMENT following - s/p head CT scan 03/22 (w/o no new acute findings per neuro stroke) - MRI brain with no acute findings compared prior MRI 03/07) - will continue to provide supportive care Pulm: Hx of COPD. Acute hypoxic respiratory failure. Treated for MRSA PNA. Currently, undergoing treatment for PSAG pneumonia. Left lower lobe collapse resolved with agressive bronchial hygiene - will continue Levaquin for PSA coverage- Stop date 04/04 per ID recs - continue budesonide, albuterol prn - will continue auto CPAP and RA during the day (while off CPAP) - IPV-per SNF facility they can only provide Caugh assist, which is likely not beneficial to patient - stop inhaled hypertonic saline ID:Leukocytosis resolved, remains afebrile. Currently with PSA in the sputum (03/21). - sputum cx 02/24 grew MRSA - Treated for MRSA PNA (Vanco 02/17-02/22, 02/25-03/04) - Abx: Kvng (02/24-02/28) - cont Levofloxacin for PSA coverage ( 03/21 stop 04/04) - can transition to PEG route for DC - ID following, per ID recs - c-diff (neg.), blood culture (NGTD), sputum culture (does not provide adequate sputum), UA/culture (neg.) Cardiac: hx of HTN, remains HD stable - will continue to hold home amlodipine, HCTZ and Lisinopril for now - continue statin Heme: -pt with right brachial acute occlusive DVT at midline site, found on 03/31 UE US. Line removed, no AC (d/t risk/benefit) -will need to repeat US in 1 month to f/u FEN/GI: Severe dysphagia 2/2 L brainstem infarction.s/p Peg tube 02/21. Tolerating tube feeds - continue bowel regimen - s/p EGD 02/21 showing LA grade D esophagitis - continue PPI twice a day x 3 months - Replete electrolytes as needed - daily RFP Renal: no issues Endo: IDDM - continue Lantus 30 units (40 units home dose) - mild corrective insulin scale as needed - hypoglycemia protocol ordered as needed - holding home 70/30 insulin PPX: cont lovenox and scds DNAR/DNI lines: midline Dispo: Keep patient in the SDU until DC likely Wednesday. Obtained Precert Wednesday evening, it is active until Thursday 04/05. Will monitor over weekend holding bronchial hygiene d/t stable respiratory function in preparation for d/c d/w Dr Up Signature/Cosignature/Attestation: Attending Only - Shared Visit with Advanced Practice ProviderThis is a shared visit. I have reviewed the Advanced Practice Providers encounter note, approve the Advanced Practice Providers documentation, and provide the following additional information from my personal encounter. Comments/ Additional Findings Denies any pain. Continue with levaquin to complete course. Aggressive pulmonary toileting but will stop hypertonic saline. Electronic Signatures: Digna Up) (Signed 02-Apr-2018 15:58) Authored: Signature/Cosignature/Attestation Co-Signer: Subjective Data, Objective Data, Assessment and Plan, Signature/Cosignature/Attestation Cherelle Juarez ([employer] OPERATOR-GROUP MANAGER) (Signed 02-Apr-2018 14:23) Authored: Service, Subjective Data, Objective Data, Assessment and Plan, Signature/Cosignature/Attestation Last Updated: 02-Apr-2018 15:58 by Digna Up) GLUCOSE-POCT Collected: 04/02/2018 Status: F Source: [facility] 6:11 AM [facility] REPOSITORY TYPE CODE TESTS RESULT OUT OF RANGE REFERENCE UNITS LAB GLUP(LOINC) 74 - 99 mg/dL High 184 GLUCOSE-POCT Performed By: #### GLUPO #### [facility] [address] [place] [address] CBC Collected: 04/02/2018 Status: F Source: [facility] 5:30 AM [facility] REPOSITORY TYPE CODE TESTS RESULT OUT OF REFERENCE UNITS RANGE LAB WBCR(LOINC 4.4 - 11.3 x10E9/L ) WBC High 12.9 LAB NRBC(LOINC 0.0-0.0 /100 WBC ) NUCLEATED RBC 0.0 LAB RBCCT(LOIN 4.50 - 5.90 x10E12/L C) Low RBC 4.08 LAB HGB(LOINC) 13.5 - 17.5 g/dL Low HGB 12.1 LAB HCT(LOINC) 41.0 - 52.0 % Low HCT 39.2 LAB MCV(LOINC) 80 - 100 fL MCV 96 LAB MCHC2(LOIN 32.0 - 36.0 g/dL C) Low MCHC 30.9 LAB PLTCT(LOIN 150 - 450 x10E9/L C) PLT 204 LAB RDWCV(LOIN 11.5 - 14.5 % C) High RDW-CV 17.0 Performed By: #### CBC #### [facility] [address] [place] [address] MAGNESIUM Collected: 04/02/2018 Status: F Source: [facility] 5:30 AM [facility] REPOSITORY TYPE CODE TESTS RESULT OUT OF REFERENCE UNITS RANGE LAB MG(LOINC) 1.60 - 2.40 mg/dL MAGNESIUM 2.19 Performed By: #### MG #### [facility] [address] [place] [address] RENAL FUNCTION PANEL Collected: 04/02/2018 Status: F Source: [facility] 5:30 AM [facility] REPOSITORY TYPE CODE TESTS RESULT OUT OF REFERENCE UNITS RANGE LAB GLU(LOINC) 74 - 99 mg/dL GLUCOSE High 178 LAB SOD(LOINC) 136 - 145 mmol/L Low SODIUM 131 LAB K(LOINC) 3.5 - 5.3 mmol/L POTASSIUM 4.9 LAB CHLOR(LOIN 98 - 107 mmol/L C) Low CHLORIDE 94 LAB BIC(LOINC) 21 - 32 mmol/L BICARBONATE 28 LAB ANGAP(LOIN 10 - 20 mmol/L C) ANION GAP 14 LAB UREA(LOINC 6 - 23 mg/dL ) UREA High NITROGEN 43 LAB CREA(LOINC 0.50 - 1.30 mg/dL ) CREATININE 0.64 LAB GFRFN(LOIN >60 mL/min/1.7 C) 3m2 GFR-NON AM. >60 LAB GFRAA(LOIN >60 mL/min/1.7 C) 3m2 GFR- AM. >60 Result Comment: CALCULATIONS OF ESTIMATED GFR ARE PERFORMED USING THE MDRD STUDY EQUATION FOR THE IDMS-TRACEABLE CREATININE METHODS. CLIN CHEM 2007;53:766-72 LAB CA(LOINC) 8.6 - 10.6 mg/dL CALCIUM 9.5 LAB PHOS(LOINC) 2.5 - 4.9 mg/dL PHOSPHORUS 3.0 Result Comment: The performance characteristics of phosphorus testing in heparinized plasma have been validated by the individual laboratory site where testing is performed. Testing on heparinized plasma is not approved by the FDA; however, such approval is not necessary. LAB ALB(LOINC) 3.4 - 5.0 g/dL Low ALBUMIN 2.9 Performed By: #### RENAL #### [facility] [address] [place] [address] GLUCOSE-POCT Collected: 04/02/2018 Status: F Source: [facility] 12:43 AM [facility] REPOSIT[facility] TYPE CODE TESTS RESULT OUT OF RANGE REFERENCE UNITS LAB GLUP(LOINC) 74 - 99 mg/dL High 165 GLUCOSE-POCT Performed By: #### GLUPO #### [facility] [address] [place] [address] GLUCOSE-POCT Collected: 04/01/2018 Status: F Source: [facility] 5:34 PM [facility] REPOSITORY TYPE CODE TESTS RESULT OUT OF RANGE REFERENCE UNITS LAB GLUP(LOINC) 74 - 99 mg/dL High 176 GLUCOSE-POCT Performed By: #### GLUPO #### [facility] [address] [place] [address] GLUCOSE-POCT Collected: 04/01/2018 Status: F Source: [facility] 12:35 PM [facility] REPOSITORY TYPE CODE TESTS RESULT OUT OF RANGE REFERENCE UNITS LAB GLUP(LOINC) 74 - 99 mg/dL High 151 GLUCOSE-POCT Performed By: #### GLUPO #### [facility] [address] [place] [address] DAILY PROGRESS Observed: 04/01/2018 Status: COMPLETED Source: [facility] NOTE-PULMONOLOGY 10:33 AM [facility]IT[facility] REPOSITORY Consult Type: Step Down Service: Pulmonology Subjective Data: DIPESH BERMUDEZ is a 67 year old Male who is Hospital Day # 51 and POD #49 for left retrosigmoid craniotomy for tumor resection. Overnight Events: Patient had an uneventful night. Additional Information: Right arm vascular study showed brachial thrombus at the midline site. Midline was removed. No AC started. Patient HD stable. More alert and awake today Objective Data: Objective Information: ---- Intake and Output ----- Mn/Dy/Year TimeIntakeOutputNet Apr 01, 2018 6:00 [id number] Mar 31, 2018 10:00 [id number] Mar 31, 2018 2:00 [id number] The Intake and Output Totals for the last 24 hours are: IntakeOutputNet 2450nullnull T PRBPSpO2 Value36.61895257/8196% Date/Time04/01 8: 8: 8: 8: 8:00 Range(36.4C - 36.7C ) (85 - 99 ) (11 - 24 ) (97 - 130 )/ (56 - 90 ) (93% - 100% ) Physical Exam: Constitutional: alert, awake, NAD Eyes: PERRL ENMT: moist mucous membranes Respiratory/Thorax: CTAB Cardiovascular: HRR, no m/g/r Gastrointestinal: abdomen soft, non-tender, non-distended Genitourinary: [place] catheter Extremities: +1BLE edema, +2 right hand and arm edema Neurological: alert, awake, oriented x2 today, facial droop, follows commands, generalized wekness, REMY Psychological: Appropriate mood and behavior Skin: WDI Medication: Medications: Continuous Medications No continuous medications are active Scheduled Medications 1. Albuterol 2.5 mg/ 3 mL Nebulizer Soln: 3 mL Inhalation Every 6 Hours 2. Atorvastatin: 40 mg Oral Daily 3. Budesonide 0.5 mg/ 2 mL Nebulizer Soln: 2 mL Inhalation Every 12 Hours 4. Docusate 50 mg - Senna 8.6 m tablet(s) Oral 2 Times a Day 5. Enoxaparin SubCutaneous: 40 mg SubCutaneous Every 24 Hours 6. Esomeprazole Oral Packet: 40 mg PEG Tube 2 Times a Day 7. Insulin Glargine (Lantus) Injectable: 30 unit(s) SubCutaneous Every 24 Hours 8. Insulin Lispro Mild Corrective Scale: unit(s) SubCutaneous Every 6 Hours 9. levoFLOXacin 750 mg IVPB/ Premix 150 mL: 150 mL IntraVenous Piggyback Every 24 Hours 10. Nicotine 7 mg/ 24 hour TransDermal: 1 patch TransDermal Every 24 Hours 11. Nystatin Oral Liquid: 500024 unit(s) Oral Every 6 Hours 12. Petrolatum Topical: 1 application(s) Topical 2 Times a Day 13. Saliva Substitute: 5 mL Oral 4 Times a Day 14. Silodosin (NON - Formulary): 8 mg NasoGastric Tube Daily 15. Simethicone Oral Liquid Drops: 80 mg Oral 4 Times a Day After Meals 16. Sodium Chloride 0.9% Injectable Flush: 10 mL IntraVenous Flush Every 12 Hours 17. Sodium Chloride 0.9% Injectable Flush: 10 mL IntraVenous Flush Every 12 Hours 18. Sodium Chloride 3% Nebulizer Soln: 3 mL Inhalation Every 6 Hours 19. Valproic Acid (Depakene) Oral Liquid: 250 mg PEG Tube Every 12 Hours PRN Medications 1. Acetaminophen: 650 mg Oral Every 6 Hours 2. Bisacodyl Rectal: 10 mg Rectal Daily 3. Dextrose 50% in Water Injectable: 25 gram(s) IntraVenous Push Every 15 Minutes 4. Glucagon Injectable: 1 mg IntraMuscular Every 15 Minutes 5. Heparin Flush 10 unit/ mL PF Injectable: 5 mL IntraVenous Flush Every 12 Hours 6. Heparin Flush 10 unit/ mL PF Injectable PRN: 5 mL IntraVenous Flush According to Flush Policy 7. Heparin Flush 10 unit/ mL PF Injectable PRN: 5 mL IntraVenous Flush According to Flush Policy 8. Ondansetron Injectable: 4 mg IntraVenous Push Every 6 Hours 9. Polyethylene Glycol: 17 gram(s) Oral Daily 10. Sodium Chloride 0.9% Injectable Flush PRN: 10 mL IntraVenous Flush According to Flush Policy 11. Sodium Chloride 0.9% Injectable Flush PRN: 20 mL IntraVenous Flush According to Flush Policy Recent Lab Results: Results: I have reviewed these laboratory results: Complete Blood Count 01-Apr-2018 07:38:00 ResultValue White Blood Cell Count 12.5 H Nucleated Erythrocyte Count 0.0 Red Blood Cell Count 3.90 L HGB 11.5 L HCT 36.5 L MCV 94 MCHC 31.5 L PLT 194 RDW-CV 17.2 H Renal Function Panel 01-Apr-2018 07:38:00 ResultValue Glucose, Serum 155 H NA 132 L K 4.4 CL 94 L Bicarbonate, Serum 31 Anion Gap, Serum 11 BUN 38 H CREAT 0.59 GFR-Non >60 GFR- >60 Calcium, Serum 9.2 Phosphorus, Serum 3.2 ALB 2.6 L Magnesium, Serum 01-Apr-2018 07:38:00 ResultValue Magnesium, Serum 1.93 Glucose_POCT Trending View [id number] 05:47:00 01-Apr-2018 00:19:00 31-Mar-2018 18:26:00 31-Mar-2018 15:48:00 [id number] H 157 H 132 H 154 H Radiology Results: Results: Xray Chest 1 View [Apr 01 2018 10:42AM] Impression: 1. Continued improvement in left basilar and retrocardiac presumed atelectasis. Small left pleural effusion is not excluded. MRI Brain without Contrast [Mar 23 2018 3:00PM] Impression: Overall, no significant interval change compared to prior examination dated 03/07/2018. CT Head without Contrast [Mar 22 2018 4:37PM] Impression: Redemonstration of postoperative changes compatible with a left retrosigmoid craniectomy and cranioplasty. 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 The hypodense extra-axial collection deep to the cranioplasty in the posterior fossa is similar from the previous examination. Suspected lacunar infarcts of the basal ganglia and right thalamus/posterior limb of the internal capsule. MRI with diffusion-weighted imaging would be a more sensitive means of evaluating for acute ischemic injury. There are alsononspecific white matter changes thought to most likely reflect small-vessel ischemic disease in a patient of this age. Diffuse parenchymal volume loss. Assessment and Plan: Assessment: Patient is 67 year old male who is s/p meningioma resection on 02/11 c/b L brainstem infarction, dysphagia and dysarthria, Right sided weakness, hypoxemic respiratory failure (treated for MRSA), AMS, now undergoing treatment for PSAG. Transfer to SDU on 03/22 for aggressive pulmonary toileting for left lobe collapse. REspiratory remained stable for the last week, awaiting LTAC Neuro: s/p meningioma resection on 02/11 c/b L brainstem infarction, dysphagia and dysarthria, right sided weakness. c/b AMS, difficult to arouse in the SDU on 03/22 s/p Head CT scan w/o acute findings. Patient at high risk for metabolic encephalopathy Pt with prolong hospitalization, undergoing infection treatment, polypharmacy. - continue Valproid Acid - holding trazodone, risperidone, melatonin - PT/OT/MANAGER PROCESS IMPROVEMENT following - s/p head CT scan 03/22 (w/o no new acute findings per neuro stroke) - MRI brain with no acute findings compared prior MRI 03/07) - will continue to provide supportive care Pulm: Hx of COPD. Acute hypoxic respiratory failure. Treated for MRSA PNA. Currently, undergoing treatment for PSAG pneumonia. Left lower lobe collapse resolved with agressive bronchial hygiene - will continue Levaquin for PSA coverage- Stop date 04/04 per ID recs - continue budesonide, albuterol prn - will continue auto CPAP and RA during the day (while off CPAP) - IPV-per SNF facility they can only provide Caugh assist, which is likely not beneficial to patient -at this time will d/c bronchial hygiene and monitor respiratory function, repeat CXR Wednesday (last CXR from 04/01 with much improvement ) ID:Leukocytosis resolved, remains afebrile. Currently with PSA in the sputum (03/21). - sputum cx 02/24 grew MRSA - Treated for MRSA PNA (Vanco 02/17-02/22, 02/25-03/04) - Abx: Kvng (02/24-02/28) - cont Levofloxacin for PSA coverage ( 03/21 stop 04/04) - can transition to PEG route for DC - ID following, per ID recs - c-diff (neg.), blood culture (NGTD), sputum culture (does not provide adequate sputum), UA/culture (neg.) Cardiac: hx of HTN, remains HD stable - will continue to hold home amlodipine, HCTZ and Lisinopril for now - continue statin Heme: -pt with right brachial acute occlusive DVT at midline site, found on 03/31 UE US. Line removed, no AC (d/t risk/benefit) -will need to repeat US in 1 month to f/u FEN/GI: Severe dysphagia 2/2 L brainstem infarction.s/p Peg tube 02/21. Tolerating tube feeds - continue bowel regimen - s/p EGD 02/21 showing LA grade D esophagitis - continue PPI twice a day x 3 months - Replete electrolytes as needed - daily RFP Renal: no issues Endo: IDDM - continue Lantus 30 units (40 units home dose) - mild corrective insulin scale as needed - hypoglycemia protocol ordered as needed - holding home 70/30 insulin PPX: cont lovenox and scds DNAR/DNI lines: midline Dispo: Keep patient in the SDU until DC likely Wednesday. Obtained Precert Wednesday evening, it is active until Thursday 04/05. Will monitor over weekend holding bronchial hygiene d/t stable respiratory function in preparation for d/c d/w Dr Hanna Signature/Cosignature/Attestation: Attending Only - Shared Visit with Advanced Practice ProviderThis is a shared visit. I have reviewed the Advanced Practice Providers encounter note, approve the Advanced Practice Providers documentation, and provide the following additional information from my personal encounter. Comments/ Additional Findings This is a shared visit. Both the HANDLE SANDER OPERATOR and I have had a [id number] encounter with this patient today. I have reviewed the child care aide encounter note and approve the child care aide documentation. The following is additional information from my personal encounter with this patient: No further information obtained. Electronic Signatures: Evelin Hernadez ([employer] OPERATOR-GROUP MANAGER) (Signed 01-Apr-2018 16:17) Authored: Service, Subjective Data, Objective Data, Assessment and Plan, Signature/Cosignature/Attestation Mika Hanna) (Signed 05-Apr-2018 10:51) Authored: Signature/Cosignature/Attestation Co-Signer: Assessment and Plan, Signature/Cosignature/Attestation Last Updated: 05-Apr-2018 10:51 by Mika Hanna) TH CHEST 1 VIEW Observed: 04/01/2018 Status: F Source: [facility] 10:20 AM [facility] REPOSITORY Patient Name: DIPESH BERMUDEZ STUDY: CHEST 1 VIEW; 04/01/2018 10:20 am INDICATION: Signs/Symptoms: pulmonary congestion. COMPARISON: Chest radiograph from 03/29/2018 ACCESSION NUMBER(S): [id number] ORDERING CLINICIAN: EVELIN HERNADEZ FINDINGS: The cardiomediastinal silhouette is stable and within normal limits. Continued interval improvement in left basilar retrocardiac atelectasis. Small pleural effusion is not excluded. Right lung is clear. No pneumothorax PET No acute osseous abnormality. IMPRESSION: 1. Continued improvement in left basilar and retrocardiac presumed atelectasis. Small left pleural effusion is not excluded. Electronically signed by: LEXI LI MD CBC Collected: 04/01/2018 Status: F Source: [facility] 7:38 AM [facility] REPOSITORY TYPE CODE TESTS RESULT OUT OF REFERENCE UNITS RANGE LAB WBCR(LOINC 4.4 - 11.3 x10E9/L ) WBC High 12.5 LAB NRBC(LOINC 0.0-0.0 /100 WBC ) NUCLEATED RBC 0.0 LAB RBCCT(LOIN 4.50 - 5.90 x10E12/L C) Low RBC 3.90 LAB HGB(LOINC) 13.5 - 17.5 g/dL Low HGB 11.5 LAB HCT(LOINC) 41.0 - 52.0 % Low HCT 36.5 LAB MCV(LOINC) 80 - 100 fL MCV 94 LAB MCHC2(LOIN 32.0 - 36.0 g/dL C) Low MCHC 31.5 LAB PLTCT(LOIN 150 - 450 x10E9/L C) PLT 194 LAB RDWCV(LOIN 11.5 - 14.5 % C) High RDW-CV 17.2 Performed By: #### CBC #### [facility] [address] [place] [id number] MAGNESIUM Collected: 04/01/2018 Status: F Source: [facility] 7:38 [facility] REPOSITORY TYPE CODE TESTS RESULT OUT OF REFERENCE UNITS RANGE LAB MG(LOINC) 1.60 - 2.40 mg/dL MAGNESIUM 1.93 Performed By: #### MG #### [facility] [address] [place] [id number] RENAL FUNCTION PANEL Collected: 04/01/2018 Status: F Source: [facility] 7:38 [facility]POS[facility] TYPE CODE TESTS RESULT OUT OF REFERENCE UNITS RANGE LAB GLU(LOINC) 74 - 99 mg/dL GLUCOSE High 155 LAB SOD(LOINC) 136 - 145 mmol/L Low SODIUM 132 LAB K(LOINC) 3.5 - 5.3 mmol/L POTASSIUM 4.4 LAB CHLOR(LOIN 98 - 107 mmol/L C) Low CHLORIDE 94 LAB BIC(LOINC) 21 - 32 mmol/L BICARBONATE 31 LAB ANGAP(LOIN 10 - 20 mmol/L C) ANION GAP 11 LAB UREA(LOINC 6 - 23 mg/dL ) UREA High NITROGEN 38 LAB CREA(LOINC 0.50 - 1.30 mg/dL ) CREATININE 0.59 LAB GFRFN(LOIN >60 mL/min/1.7 C) 3m2 GFR-NON AM. >60 LAB GFRAA(LOIN >60 mL/min/1.7 C) 3m2 GFR- AM. >60 Result Comment: CALCULATIONS OF ESTIMATED GFR ARE PERFORMED USING THE MDRD STUDY EQUATION FOR THE IDMS-TRACEABLE CREATININE METHODS. CLIN CHEM 2007;53:766-72 LAB CA(LOINC) 8.6 - 10.6 mg/dL CALCIUM 9.2 LAB PHOS(LOINC) 2.5 - 4.9 mg/dL PHOSPHORUS 3.2 Result Comment: The performance characteristics of phosphorus testing in heparinized plasma have been validated by the individual laboratory site where testing is performed. Testing on heparinized plasma is not approved by the FDA; however, such approval is not necessary. LAB ALB(LOINC) 3.4 - 5.0 g/dL Low ALBUMIN 2.6 Performed By: #### RENAL #### [facility] [address] [place] [address] GLUCOSE-POCT Collected: 04/01/2018 Status: F Source: [facility] 5:47 AM [facility] REPOSITORY TYPE CODE TESTS RESULT OUT OF RANGE REFERENCE UNITS LAB GLUP(LOINC) 74 - 99 mg/dL High 163 GLUCOSE-POCT Performed By: #### GLUPO #### [facility] [address] [place] [address] GLUCOSE-POCT Collected: 04/01/2018 Status: F Source: [facility] 12:19 AM [facility] REPOSITORY TYPE CODE TESTS RESULT OUT OF RANGE REFERENCE UNITS LAB GLUP(LOINC) 74 - 99 mg/dL High 157 GLUCOSE-POCT Performed By: #### GLUPO #### [facility] [address] [place] [address] GLUCOSE-POCT Collected: 03/31/2018 Status: F Source: [facility] 6:26 PM [facility] REPOSITORY TYPE CODE TESTS RESULT OUT OF RANGE REFERENCE UNITS LAB GLUP(LOINC) 74 - 99 mg/dL High 132 GLUCOSE-POCT Performed By: #### GLUPO #### [facility] [address] [place] [address] VASC LAB VENOUS DUPLEX Observed: 03/31/2018 Status: F Source: [facility] ULTRASOUND DVT 4:15 PM [facility]OS[facility]ITALS REPOSITORY [facility], [address] [place] [address] and Vascular Lab Report Upper Venous Duplex Ultrasound Patient Name: DIPESH Quiñones Physician: [id number] Alexa BERMUDEZ Study Date: 03/31/2018 Referring Mika Hanna Physician: MRN/PID: [id number] PCP: Accession/Order#: [id number] CC Report to: Date of : 1950 Technologist: Flores Burnette RVT Gender: M Technologist 2: Dyana Ellenpaola REEMAT, [facility] Admission Status: Inpatient Location Performed: [facility] Diagnosis/ICD: M79.89-Right arm swelling Indication: Limb edema Procedure/CPT: 53907 Peripheral venous duplex scan for DVT Limited-[id number] CRITICAL RESULT Critical Result: Acute DVT in the right brachial vein. Notification called to Cody NELSON on 03/31/2018 at 5:08:02 PM by Cory Burnette RVT. CONCLUSIONS: Right Upper Venous: Positive for aucte occlusive DVT of the right brachial vein. Brachial vein is noted to have IV line. Collateral was noted off axillary vein. Cephalic vein was not visualized. Basilic vein was compressible. Left Upper Venous: The subclavian demonstrates a normal spontaneous and phasic flow. Imaging AND Doppler Findings: Right Compressible Thrombus Internal Jugular Yes None Subclavian No Acute occlusive Subclavian Proximal No Acute occlusive Subclavian Mid No Acute occlusive Subclavian Distal No Acute occlusive Axillary Yes None Brachial Yes None Basilic Yes None [id number] Alexa Callaway MD Final GLUCOSE-POCT Collected: 03/31/2018 Status: F Source: [facility] 3:48 PM [facility]ALS REPOSITORY TYPE CODE TESTS RESULT OUT OF RANGE REFERENCE UNITS LAB GLUP(LOINC) 74 - 99 mg/dL High 154 GLUCOSE-POCT Performed By: #### GLUPO #### [facility] [address] [place] [address] RENAL FUNCTION PANEL Collected: 03/31/2018 Status: F Source: [facility] 12:23 PM [facility] REPOSITORY TYPE CODE TESTS RESULT OUT OF REFERENCE UNITS RANGE LAB GLU(LOINC) 74 - 99 mg/dL High GLUCOSE 196 LAB SOD(LOINC) 136 - 145 mmol/L Low SODIUM 130 LAB K(LOINC) 3.5 - 5.3 mmol/L POTASSIUM 5.2 Result Comment: MILD HEMOLYSIS DETECTED. The result may be falsely elevated due to hemolysis or other interferents. Clinical correlation is recommended. Repeat testing may be considered. LAB CHLOR(LOINC) 98 - 107 mmol/L CHLORIDE Low 93 LAB BIC(LOINC) 21 - 32 mmol/L BICARBONATE 28 LAB ANGAP(LOINC) 10 - 20 mmol/L ANION GAP 14 LAB UREA(LOINC) 6 - 23 mg/dL UREA High NITROGEN 36 LAB CREA(LOINC) 0.50 - mg/dL 1.30 CREATININE 0.60 LAB GFRFN(LOINC) >60 mL/min/1.73m 2 GFR-NON AM. >60 LAB GFRAA(LOINC) >60 mL/min/1.73m 2 GFR- AM. >60 Result Comment: CALCULATIONS OF ESTIMATED GFR ARE PERFORMED USING THE MDRD STUDY EQUATION FOR THE IDMS-TRACEABLE CREATININE METHODS. CLIN CHEM 2007;53:766-72 LAB CA(LOINC) 8.6 - 10.6 mg/dL CALCIUM 9.5 LAB PHOS(LOINC) 2.5 - 4.9 mg/dL PHOSPHORUS 3.4 Result Comment: The performance characteristics of phosphorus testing in heparinized plasma have been validated by the individual laboratory site where testing is performed. Testing on heparinized plasma is not approved by the FDA; however, such approval is not necessary. LAB ALB(LOINC) 3.4 - 5.0 g/dL Low ALBUMIN 2.8 Performed By: #### RENAL #### [facility] [address] [place] [address] GLUCOSE-POCT Collected: 03/31/2018 Status: F Source: [facility] 11:50 AM [facility] REPOSITORY TYPE CODE TESTS RESULT OUT OF RANGE REFERENCE UNITS LAB GLUP(LOINC) 74 - 99 mg/dL High 183 GLUCOSE-POCT Performed By: #### GLUPO #### [facility] [address] [place] [address] DAILY PROGRESS Observed: 03/31/2018 Status: COMPLETED Source: [facility] NOTE-PULMONOLOGY 7:50 AM [facility] REPOSITORY Consult Type: Step Down Service: Pulmonology Subjective Data: DIPESH BERMUDEZ is a 67 year old Male who is Hospital Day # 50 and POD #48 for left retrosigmoid craniotomy for tumor resection. Overnight Events: Patient had an uneventful night. Objective Data: Objective Information: ---- Intake and Output ----- Mn/Dy/Year TimeIntakeOutputNet Mar 31, 2018 6:00 [id number] Mar 30, 2018 10:00 [id number] Mar 30, 2018 2:00 [id number] The Intake and Output Totals for the last 24 hours are: IntakeOutputNet 1770nullnull T PRBPSpO2 [id number]/8693% Date/Time03/31 4: 6: 6: 6: 6:00 Range(36.4C - 36.9C ) (81 - 99 ) (13 - 25 ) (99 - 148 )/ (64 - 95 ) (92% - 100% ) Highest temp of 36.9 C was recorded at 03/30 20:00 Physical Exam: Constitutional: NAD Eyes: PERRL ENMT: moist mucous membranes Respiratory/Thorax: CTAB Cardiovascular: HRR, no m/g/r Gastrointestinal: abdomen soft, non-tender, non-distended Genitourinary: [place] catheter Extremities: +1BLE edema, +2 right hand and arm Neurological: alert, not odriented, follows commands, generalized wekness, REMY Skin: WDI Medication: Medications: Continuous Medications No continuous medications are active Scheduled Medications 1. Albuterol 2.5 mg/ 3 mL Nebulizer Soln: 3 mL Inhalation Every 6 Hours 2. Atorvastatin: 40 mg Oral Daily 3. Budesonide 0.5 mg/ 2 mL Nebulizer Soln: 2 mL Inhalation Every 12 Hours 4. Docusate 50 mg - Senna 8.6 m tablet(s) Oral 2 Times a Day 5. Enoxaparin SubCutaneous: 40 mg SubCutaneous Every 24 Hours 6. Esomeprazole Oral Packet: 40 mg PEG Tube 2 Times a Day 7. Insulin Glargine (Lantus) Injectable: 30 unit(s) SubCutaneous Every 24 Hours 8. Insulin Lispro Mild Corrective Scale: unit(s) SubCutaneous Every 6 Hours 9. levoFLOXacin 750 mg IVPB/ Premix 150 mL: 150 mL IntraVenous Piggyback Every 24 Hours 10. Nicotine 7 mg/ 24 hour TransDermal: 1 patch TransDermal Every 24 Hours 11. Nystatin Oral Liquid: 310448 unit(s) Oral Every 6 Hours 12. Petrolatum Topical: 1 application(s) Topical 2 Times a Day 13. Saliva Substitute: 5 mL Oral 4 Times a Day 14. Silodosin (NON - Formulary): 8 mg NasoGastric Tube Daily 15. Simethicone Oral Liquid Drops: 80 mg Oral 4 Times a Day After Meals 16. Sodium Chloride 0.9% Injectable Flush: 10 mL IntraVenous Flush Every 12 Hours 17. Sodium Chloride 0.9% Injectable Flush: 10 mL IntraVenous Flush Every 12 Hours 18. Sodium Chloride 3% Nebulizer Soln: 3 mL Inhalation Every 6 Hours 19. Sodium Polystyrene Sulfonate Oral Liquid: 15 gram(s) Oral Once 20. Valproic Acid (Depakene) Oral Liquid: 250 mg PEG Tube Every 12 Hours PRN Medications 1. Acetaminophen: 650 mg Oral Every 6 Hours 2. Bisacodyl Rectal: 10 mg Rectal Daily 3. Dextrose 50% in Water Injectable: 25 gram(s) IntraVenous Push Every 15 Minutes 4. Glucagon Injectable: 1 mg IntraMuscular Every 15 Minutes 5. Heparin Flush 10 unit/ mL PF Injectable: 5 mL IntraVenous Flush Every 12 Hours 6. Heparin Flush 10 unit/ mL PF Injectable PRN: 5 mL IntraVenous Flush According to Flush Policy 7. Heparin Flush 10 unit/ mL PF Injectable PRN: 5 mL IntraVenous Flush According to Flush Policy 8. Ondansetron Injectable: 4 mg IntraVenous Push Every 6 Hours 9. Polyethylene Glycol: 17 gram(s) Oral Daily 10. Sodium Chloride 0.9% Injectable Flush PRN: 10 mL IntraVenous Flush According to Flush Policy 11. Sodium Chloride 0.9% Injectable Flush PRN: 20 mL IntraVenous Flush According to Flush Policy Recent Lab Results: Results: I have reviewed these laboratory results: Glucose_POCT Trending View [id number] 05:56:00 31-Mar-2018 00:36:00 30-Mar-2018 17:30:00 30-Mar-2018 12:41:00 [id number] H 154 H 158 H 165 H Complete Blood Count 31-Mar-2018 03:37:00 ResultValue White Blood Cell Count 13.4 H Nucleated Erythrocyte Count 0.0 Red Blood Cell Count 3.81 L HGB 11.3 L HCT 38.1 L MCV 100 MCHC 29.7 L PLT 139 L RDW-CV 17.4 H Renal Function Panel 31-Mar-2018 03:37:00 ResultValue Glucose, Serum 152 H NA 129 L K 5.8 H CL 96 L Bicarbonate, Serum 18 L Anion Gap, Serum 21 H BUN 37 H CREAT 0.65 GFR-Non >60 GFR- >60 Calcium, Serum 9.2 Phosphorus, Serum 3.1 ALB 2.9 L Magnesium, Serum 31-Mar-2018 03:37:00 ResultValue Magnesium, Serum 2.62 H Radiology Results: Results: Xray Chest 1 View [Mar 29 2018 10:50AM] Impression: 1. Persistent left basilar and retrocardiac opacity which might be due to left basilar atelectasis and small effusion with infectious infiltrate not excluded. MRI Brain without Contrast [Mar 23 2018 3:00PM] Impression: Overall, no significant interval change compared to prior examination dated 03/07/2018. CT Head without Contrast [Mar 22 2018 4:37PM] Impression: Redemonstration of postoperative changes compatible with a left retrosigmoid craniectomy and cranioplasty. 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 The hypodense extra-axial collection deep to the cranioplasty in the posterior fossa is similar from the previous examination. Suspected lacunar infarcts of the basal ganglia and right thalamus/posterior limb of the internal capsule. MRI with diffusion-weighted imaging would be a more sensitive means of evaluating for acute ischemic injury. There are alsononspecific white matter changes thought to most likely reflect small-vessel ischemic disease in a patient of this age. Diffuse parenchymal volume loss. Assessment and Plan: Assessment: Patient is 67 year old male who is s/p meningioma resection on 02/11 c/b L brainstem infarction, dysphagia and dysarthria, Right sided weakness, hypoxemic respiratory failure (treated for MRSA), AMS, now undergoing treatment for PSAG. Transfer to SDU on 03/22 for aggressive pulmonary toileting for left lobe collapse. Neuro: s/p meningioma resection on 02/11 c/b L brainstem infarction, dysphagia and dysarthria, right sided weakness. c/b AMS, difficult to arouse in the SDU on 03/22 s/p Head CT scan w/o acute findings. Patient at high risk for metabolic encephalopathy Pt with prolong hospitalization, undergoing infection treatment, polypharmacy. - continue Valproid Acid - holding trazodone, risperidone, melatonin - PT/OT/MANAGER PROCESS IMPROVEMENT following - s/p head CT scan 03/22 (w/o no new acute findings per neuro stroke) - MRI brain with no acute findings compared prior MRI 03/07) - will continue to provide supportive care Pulm: Hx of COPD. Acute hypoxic respiratory failure. Treated for MRSA PNA. Currently, undergoing treatment for PSAG pneumonia. Left lower lobe collapse resolved with agressive bronchial hygiene - will continue Levaquin for PSA coverage- Stop date 04/04 per ID recs - continue budesonide, albuterol prn - will continue auto CPAP and RA during the day (while off CPAP) - IPV- can provide cough assist when DCd to facility ID: Continues with Leukocytosis but downtrending, however remains afebrile. Currently with PSA in the sputum (03/21). - sputum cx 02/24 grew MRSA - Treated for MRSA PNA (Vanco 02/17-02/22, 02/25-03/04) - Abx: Kvng (02/24-02/28) - cont Levofloxacin for PSA coverage ( 03/21 stop 04/04) - can transition to PEG route for DC - ID following, per ID recs - c-diff (neg.), blood culture (NGTD), sputum culture (does not provide adequate sputum), UA/culture (neg.) Cardiac: hx of HTN, remains HD stable - will continue to hold home amlodipine, HCTZ and Lisinopril for now - continue statin FEN/GI: Severe dysphagia 2/2 L brainstem infarction.s/p Peg tube 02/21. Tolerating tube feeds - continue bowel regimen - s/p EGD 02/21 showing LA grade D esophagitis - continue PPI twice a day x 3 months - Replete electrolytes as needed - daily RFP Renal: no issues Endo: IDDM - continue Lantus 30 units (40 units home dose) - mild corrective insulin scale as needed - hypoglycemia protocol ordered as needed - holding home 70/30 insulin PPX: cont lovenox and scds DNAR/DNI lines: midline Dispo: Keep patient in the SDU until DC at end of week,, Wednesday at the earliest. Awaiting Precert. Facility will only be able to provide cough assist. d/c with Dr Hanna Signature/Cosignature/Attestation: Attending Only - Shared Visit with Advanced Practice ProviderThis is a shared visit. I have reviewed the Advanced Practice Providers encounter note, approve the Advanced Practice Providers documentation, and provide the following additional information from my personal encounter. Comments/ Additional Findings This is a shared visit. Both the HANDLE SANDER OPERATOR and I have had a [id number] encounter with this patient today. I have reviewed the child care aide encounter note and approve the child care aide documentation. The following is additional information from my personal encounter with this patient: No further information obtained. Electronic Signatures: Evelin Hernadez ([employer] OPERATOR-GROUP MANAGER) (Signed 31-Mar-2018 12:36) Authored: Service, Subjective Data, Objective Data, Assessment and Plan, Signature/Cosignature/Attestation Mika Hanna) (Signed 31-Mar-2018 15:33) Authored: Signature/Cosignature/Attestation Co-Signer: Objective Data, Assessment and Plan, Signature/Cosignature/Attestation Last Updated: 31-Mar-2018 15:33 by Mika Hanna) GLUCOSE-POCT Collected: 03/31/2018 Status: F Source: [facility] 5:56 AM HOSPITALS REPOSITORY TYPE CODE TESTS RESULT OUT OF RANGE REFERENCE UNITS LAB GLUP(LOINC) 74 - 99 mg/dL High 177 GLUCOSE-POCT Performed By: #### GLUPO #### [facility] [address] [place] [address] CBC Collected: 03/31/2018 Status: F Source: [facility] 3:37 AM HOSPITALS REPOSITORY TYPE CODE TESTS RESULT OUT OF REFERENCE UNITS RANGE LAB WBCR(LOINC 4.4 - 11.3 x10E9/L ) WBC High 13.4 LAB NRBC(LOINC 0.0-0.0 /100 WBC ) NUCLEATED RBC 0.0 LAB RBCCT(LOIN 4.50 - 5.90 x10E12/L C) Low RBC 3.81 LAB HGB(LOINC) 13.5 - 17.5 g/dL Low HGB 11.3 LAB HCT(LOINC) 41.0 - 52.0 % Low HCT 38.1 LAB MCV(LOINC) 80 - 100 fL MCV 100 LAB MCHC2(LOIN 32.0 - 36.0 g/dL C) Low MCHC 29.7 LAB PLTCT(LOIN 150 - 450 x10E9/L C) Low PLT 139 LAB RDWCV(LOIN 11.5 - 14.5 % C) High RDW-CV 17.4 Performed By: #### CBC #### [facility] [address] [place] [address] MAGNESIUM Collected: 03/31/2018 Status: F Source: [facility] 3:[facility] REPOSITORY TYPE CODE TESTS RESULT OUT OF REFERENCE UNITS RANGE LAB MG(LOINC) 1.60 - 2.40 mg/dL High MAGNESIUM 2.62 Performed By: #### MG #### [facility] [address] [place] [id number] RENAL FUNCTION PANEL Collected: 03/31/2018 Status: F Source: [facility] 3:[address] [place] [address] REPOSITORY TYPE CODE TESTS RESULT OUT OF REFERENCE UNITS RANGE LAB GLU(LOINC) 74 - 99 mg/dL High GLUCOSE 152 LAB SOD(LOINC) 136 - 145 mmol/L Low SODIUM 129 LAB K(LOINC) 3.5 - 5.3 mmol/L High POTASSIUM 5.8 Result Comment: MILD HEMOLYSIS DETECTED. The result may be falsely elevated due to hemolysis or other interferents. Clinical correlation is recommended. Repeat testing may be considered. LAB CHLOR(LOINC) 98 - 107 mmol/L CHLORIDE Low 96 LAB BIC(LOINC) 21 - 32 mmol/L BICARBONATE Low 18 LAB ANGAP(LOINC) 10 - 20 mmol/L ANION GAP High 21 LAB UREA(LOINC) 6 - 23 mg/dL UREA High NITROGEN 37 LAB CREA(LOINC) 0.50 - mg/dL 1.30 CREATININE 0.65 LAB GFRFN(LOINC) >60 mL/min/1.73m 2 GFR-NON AM. >60 LAB GFRAA(LOINC) >60 mL/min/1.73m 2 GFR- AM. >60 Result Comment: CALCULATIONS OF ESTIMATED GFR ARE PERFORMED USING THE MDRD STUDY EQUATION FOR THE IDMS-TRACEABLE CREATININE METHODS. CLIN CHEM 2007;53:766-72 LAB CA(LOINC) 8.6 - 10.6 mg/dL CALCIUM 9.2 LAB PHOS(LOINC) 2.5 - 4.9 mg/dL PHOSPHORUS 3.1 Result Comment: The performance characteristics of phosphorus testing in heparinized plasma have been validated by the individual laboratory site where testing is performed. Testing on heparinized plasma is not approved by the FDA; however, such approval is not necessary. LAB ALB(LOINC) 3.4 - 5.0 g/dL Low ALBUMIN 2.9 Performed By: #### RENAL #### [facility] [address] [place] [address] GLUCOSE-POCT Collected: 03/31/2018 Status: F Source: [facility] 12:36 AM [facility]OSPITALS REPOSITORY TYPE CODE TESTS RESULT OUT OF RANGE REFERENCE UNITS LAB GLUP(LOINC) 74 - 99 mg/dL High 154 GLUCOSE-POCT Performed By: #### GLUPO #### [facility] [address] [place] [address] DAILY PROGRESS Observed: 03/30/2018 Status: COMPLETED Source: [facility] NOTE-INFECTIOUS DISEASE 7:04 PM HOSPITALS REPOSITORY Service: Infectious Disease Subjective Data: DIPESH BERMUDEZ is a 67 year old Male who is Hospital Day # 49 and POD #47 for left retrosigmoid craniotomy for tumor resection. Additional Information: No acute events overnight. No fever. Objective Data: Objective Information: ---- Intake and Output ----- Mn/Dy/Year TimeIntakeOutputNet Mar 30, 2018 2:00 [id number] Mar 30, 2018 6:00 [id number] Mar 29, 2018 10:00 [id number] The Intake and Output Totals for the last 24 hours are: IntakeOutputNet 1760nullnull T PRBPSpO2 [id number]/66684% Date/Time03/30 16: 16: 16: 16: 16:00 Range(36.4C - 36.7C ) (85 - 94 ) (13 - 24 ) (99 - 145 )/ (63 - 87 ) (91% - 100% ) Physical Exam: Constitutional: In no acute distress, non-toxic appearing alert and interactive slightly dysarthric but understandable ENMT: Dry mucous membranes, no lesions noted. Head/Neck: Left sided post-auricular fluid collection that can be seen and palpated where surgical site is. Non-tender, not warm or fluctuant. Respiratory/Thorax: Diminished most on left base but otherwise comfortable in room air and clear. Cardiovascular: Regular rate and rhythm, no murmurs, rubs, gallops. Gastrointestinal: Soft, non-tender, non-distended. A PEG tube is in place, not leaking feeds. Extremities: RUE PICC line. Surrounding area appears clean, no signs of inflammation Neurological: Right UE, LE weaker than left. Right sided facial droop. Skin: No rashes, no sacral wound Medication: Medications: Continuous Medications No continuous medications are active Scheduled Medications 1. Albuterol 2.5 mg/ 3 mL Nebulizer Soln: 3 mL Inhalation Every 6 Hours 2. Atorvastatin: 40 mg Oral Daily 3. Budesonide 0.5 mg/ 2 mL Nebulizer Soln: 2 mL Inhalation Every 12 Hours 4. Docusate 50 mg - Senna 8.6 m tablet(s) Oral 2 Times a Day 5. Enoxaparin SubCutaneous: 40 mg SubCutaneous Every 24 Hours 6. Esomeprazole Oral Packet: 40 mg PEG Tube 2 Times a Day 7. Insulin Glargine (Lantus) Injectable: 30 unit(s) SubCutaneous Every 24 Hours 8. Insulin Lispro Mild Corrective Scale: unit(s) SubCutaneous Every 6 Hours 9. levoFLOXacin 750 mg IVPB/ Premix 150 mL: 150 mL IntraVenous Piggyback Every 24 Hours 10. Nicotine 7 mg/ 24 hour TransDermal: 1 patch TransDermal Every 24 Hours 11. Nystatin Oral Liquid: 218533 unit(s) Oral Every 6 Hours 12. Petrolatum Topical: 1 application(s) Topical 2 Times a Day 13. Saliva Substitute: 5 mL Oral 4 Times a Day 14. Silodosin (NON - Formulary): 8 mg NasoGastric Tube Daily 15. Simethicone Oral Liquid Drops: 80 mg Oral 4 Times a Day After Meals 16. Sodium Chloride 0.9% Injectable Flush: 10 mL IntraVenous Flush Every 12 Hours 17. Sodium Chloride 0.9% Injectable Flush: 10 mL IntraVenous Flush Every 12 Hours 18. Sodium Chloride 3% Nebulizer Soln: 3 mL Inhalation Every 6 Hours 19. Valproic Acid (Depakene) Oral Liquid: 250 mg PEG Tube Every 12 Hours PRN Medications 1. Acetaminophen: 650 mg Oral Every 6 Hours 2. Bisacodyl Rectal: 10 mg Rectal Daily 3. Dextrose 50% in Water Injectable: 25 gram(s) IntraVenous Push Every 15 Minutes 4. Glucagon Injectable: 1 mg IntraMuscular Every 15 Minutes 5. Heparin Flush 10 unit/ mL PF Injectable: 5 mL IntraVenous Flush Every 12 Hours 6. Heparin Flush 10 unit/ mL PF Injectable PRN: 5 mL IntraVenous Flush According to Flush Policy 7. Heparin Flush 10 unit/ mL PF Injectable PRN: 5 mL IntraVenous Flush According to Flush Policy 8. Ondansetron Injectable: 4 mg IntraVenous Push Every 6 Hours 9. Polyethylene Glycol: 17 gram(s) Oral Daily 10. Sodium Chloride 0.9% Injectable Flush PRN: 10 mL IntraVenous Flush According to Flush Policy 11. Sodium Chloride 0.9% Injectable Flush PRN: 20 mL IntraVenous Flush According to Flush Policy Recent Lab Results: Results: I have reviewed these laboratory results: Complete Blood Count 30-Mar-2018 06:39:00 ResultValue White Blood Cell Count 15.7 H Nucleated Erythrocyte Count 0.0 Red Blood Cell Count 4.10 L HGB 11.9 L HCT 39.1 L MCV 95 MCHC 30.4 L PLT 216 RDW-CV 17.5 H Renal Function Panel 30-Mar-2018 06:39:00 ResultValue Glucose, Serum 158 H NA 132 L K 4.9 CL 94 L Bicarbonate, Serum 29 Anion Gap, Serum 14 BUN 34 H CREAT 0.60 GFR-Non >60 GFR- >60 Calcium, Serum 9.3 Phosphorus, Serum 3.0 ALB 2.8 L Magnesium, Serum 30-Mar-2018 06:39:00 ResultValue Magnesium, Serum 2.05 Radiology Results: Results: Impression: 1. Persistent left basilar and retrocardiac opacity which might be due to left basilar atelectasis and small effusion with infectious infiltrate not excluded. 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 Treated already for both MRSA and pseudomonal pneumonia with ongoing leukocytosis. With no fever, change in respiratory effort or support needs the white count likely does not reflect a new pneumonia. It may be that he is continuing to aspirate. Pseudomonas that grew out 03/19 with very different resistance profile is likely just a different strain not a developed resistance over a few days. Leukocytosis now improving and patient remains stable. Growing S aureus and Pseudomonas aeruginosa from sputum culture in a saliva contaminated sample. The patient is likely colonized. 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 Complicated by stroke in post-op period MICRO 03/28 sputum Cx -- multiple organisms. Contaminated with saliva. Asked lab to check for S aureus and P aeruginosa which he is growing. COLONIZATION 03/28 Blood Cx x2 03/22 urine Cx NGTD 03/19 Pseudomonas aeruginosa sensitive to meropenem, imipenem, ciprofloxacin, levofloxacin, tobramycin; resistant to piperarcillin-tazobactam, aztreonam, intermediate to cefepime 03/14 Pseudomonas aeruginosa sensitive to piperacillin-tazobactam, cefepime, meropenem, imipenem, aztreonam, ciprofloxacin, levofloxacin, tobramycin 02/24 Sputum MRSA Antibiotics levofloxacin (03/21 - current) piperacillin-tazobactam (03/13 - 03/21) linezolid (03/04 - 03/18) vancomycin (02/24 - 03/04) azithromycin (02/16 - 02/22) RECOMMENDATIONS - continue on levofloxacin 750 mg every daily. Has already been on since 03/21. Can continue for a total of 14 days AND STOP 04/04 - continued aggressive pulmonary toilet and aspiration precautions Will sign off at this time. Discussed with attending on ID rounds. Please check for attending updates to this note. Allan Monique MD Adult and Pediatric Infectious Disease Fellow [facility] Team A Pager: [phone] Signature/Cosignature/Attestation: Attending AttestationI saw and evaluated the patient. I personally obtained the gonzalez and critical portions of the history and physical exam or was physically present for gonzalez and critical portions performed by the resident/fellow. I reviewed the resident/fellows documentation and discussed the patient with the resident/fellow. I agree with the resident/fellows medical decision making as documented in the residents note. I personally evaluated the patient (as noted in the above attestation) on 30-Mar-2018 Electronic Signatures: Aureliano Nelson) (Signed 30-Mar-2018 20:53) Authored: Assessment and Plan, Signature/Cosignature/Attestation Co-Signer: Service, Subjective Data, Objective Data, Assessment and Plan, Signature/Cosignature/Attestation Allan Monique (Fellow)) (Signed 30-Mar-2018 19:17) Authored: Service, Subjective Data, Objective Data, Assessment and Plan, Signature/Cosignature/Attestation Last Updated: 30-Mar-2018 20:53 by Aureliano Nelson) DAILY PROGRESS Observed: 03/30/2018 Status: COMPLETED Source: [facility] NOTE-PULMONOLOGY 6:04 PM HOSPITALS REPOSITORY Consult Type: Step Down Service: Pulmonology Subjective Data: DIPESH BERMUDEZ is a 67 year old Male who is Hospital Day # 49 and POD #47 for left retrosigmoid craniotomy for tumor resection. Overnight Events: Patient had an uneventful night. Objective Data: Objective Information: ---- Intake and Output ----- Mn/Dy/Year TimeIntakeOutputNet Mar 30, 2018 2:00 [id number] Mar 30, 2018 6:00 [id number] Mar 29, 2018 10:00 [id number] The Intake and Output Totals for the last 24 hours are: IntakeOutputNet 1760nullnull T PRBPSpO2 [id number]/18039% Date/Time03/30 16: 16: 16: 16: 16:00 Range(36.4C - 36.7C ) (85 - 94 ) (13 - 24 ) (99 - 145 )/ (63 - 87 ) (91% - 100% ) Physical Exam: Constitutional: NAD Eyes: PERRL ENMT: moist mucous membranes Respiratory/Thorax: CTAB Cardiovascular: HRR, no m/g/r Gastrointestinal: abdomen soft, non-tender, non-distended Genitourinary: [place] catheter Extremities: +1BLE edema Neurological: alert, not odriented, follows commands, generalized wekness, REMY Skin: WDI Medication: Medications: Continuous Medications No continuous medications are active Scheduled Medications 1. Albuterol 2.5 mg/ 3 mL Nebulizer Soln: 3 mL Inhalation Every 6 Hours 2. Atorvastatin: 40 mg Oral Daily 3. Budesonide 0.5 mg/ 2 mL Nebulizer Soln: 2 mL Inhalation Every 12 Hours 4. Docusate 50 mg - Senna 8.6 m tablet(s) Oral 2 Times a Day 5. Enoxaparin SubCutaneous: 40 mg SubCutaneous Every 24 Hours 6. Esomeprazole Oral Packet: 40 mg PEG Tube 2 Times a Day 7. Insulin Glargine (Lantus) Injectable: 30 unit(s) SubCutaneous Every 24 Hours 8. Insulin Lispro Mild Corrective Scale: unit(s) SubCutaneous Every 6 Hours 9. levoFLOXacin 750 mg IVPB/ Premix 150 mL: 150 mL IntraVenous Piggyback Every 24 Hours 10. Nicotine 7 mg/ 24 hour TransDermal: 1 patch TransDermal Every 24 Hours 11. Nystatin Oral Liquid: 168623 unit(s) Oral Every 6 Hours 12. Petrolatum Topical: 1 application(s) Topical 2 Times a Day 13. Saliva Substitute: 5 mL Oral 4 Times a Day 14. Silodosin (NON - Formulary): 8 mg NasoGastric Tube Daily 15. Simethicone Oral Liquid Drops: 80 mg Oral 4 Times a Day After Meals 16. Sodium Chloride 0.9% Injectable Flush: 10 mL IntraVenous Flush Every 12 Hours 17. Sodium Chloride 0.9% Injectable Flush: 10 mL IntraVenous Flush Every 12 Hours 18. Sodium Chloride 3% Nebulizer Soln: 3 mL Inhalation Every 6 Hours 19. Valproic Acid (Depakene) Oral Liquid: 250 mg PEG Tube Every 12 Hours PRN Medications 1. Acetaminophen: 650 mg Oral Every 6 Hours 2. Bisacodyl Rectal: 10 mg Rectal Daily 3. Dextrose 50% in Water Injectable: 25 gram(s) IntraVenous Push Every 15 Minutes 4. Glucagon Injectable: 1 mg IntraMuscular Every 15 Minutes 5. Heparin Flush 10 unit/ mL PF Injectable: 5 mL IntraVenous Flush Every 12 Hours 6. Heparin Flush 10 unit/ mL PF Injectable PRN: 5 mL IntraVenous Flush According to Flush Policy 7. Heparin Flush 10 unit/ mL PF Injectable PRN: 5 mL IntraVenous Flush According to Flush Policy 8. Ondansetron Injectable: 4 mg IntraVenous Push Every 6 Hours 9. Polyethylene Glycol: 17 gram(s) Oral Daily 10. Sodium Chloride 0.9% Injectable Flush PRN: 10 mL IntraVenous Flush According to Flush Policy 11. Sodium Chloride 0.9% Injectable Flush PRN: 20 mL IntraVenous Flush According to Flush Policy Recent Lab Results: Results: I have reviewed these laboratory results: Glucose_POCT Trending View [id number] 17:30:00 30-Mar-2018 12:41:00 30-Mar-2018 05:51:00 30-Mar-2018 00:18:00 29-Mar-2018 17:16:00 29-Mar-2018 12:18:00 [id number] H 165 H 160 H 161 H 149 H 173 H Complete Blood Count 30-Mar-2018 06:39:00 ResultValue White Blood Cell Count 15.7 H Nucleated Erythrocyte Count 0.0 Red Blood Cell Count 4.10 L HGB 11.9 L HCT 39.1 L MCV 95 MCHC 30.4 L PLT 216 RDW-CV 17.5 H Renal Function Panel 30-Mar-2018 06:39:00 ResultValue Glucose, Serum 158 H NA 132 L K 4.9 CL 94 L Bicarbonate, Serum 29 Anion Gap, Serum 14 BUN 34 H CREAT 0.60 GFR-Non >60 GFR- >60 Calcium, Serum 9.3 Phosphorus, Serum 3.0 ALB 2.8 L Magnesium, Serum 30-Mar-2018 06:39:00 ResultValue Magnesium, Serum 2.05 Radiology Results: Results: Xray Chest 1 View [Mar 29 2018 10:50AM] Impression: 1. Persistent left basilar and retrocardiac opacity which might be due to left basilar atelectasis and small effusion with infectious infiltrate not excluded. MRI Brain without Contrast [Mar 23 2018 3:00PM] Impression: Overall, no significant interval change compared to prior examination dated 03/07/2018. CT Head without Contrast [Mar 22 2018 4:37PM] Impression: Redemonstration of postoperative changes compatible with a left retrosigmoid craniectomy and cranioplasty. 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 The hypodense extra-axial collection deep to the cranioplasty in the posterior fossa is similar from the previous examination. Suspected lacunar infarcts of the basal ganglia and right thalamus/posterior limb of the internal capsule. MRI with diffusion-weighted imaging would be a more sensitive means of evaluating for acute ischemic injury. There are alsononspecific white matter changes thought to most likely reflect small-vessel ischemic disease in a patient of this age. Diffuse parenchymal volume loss. Assessment and Plan: Assessment: Patient is 67 year old male who is s/p meningioma resection on 02/11 c/b L brainstem infarction, dysphagia and dysarthria, Right sided weakness, hypoxemic respiratory failure (treated for MRSA), AMS, now undergoing treatment for PSAG. Transfer to SDU on 03/22 for aggressive pulmonary toileting for left lobe collapse. Neuro: s/p meningioma resection on 02/11 c/b L brainstem infarction, dysphagia and dysarthria, right sided weakness. c/b AMS, difficult to arouse in the SDU on 03/22 s/p Head CT scan w/o acute findings. Patient at high risk for metabolic encephalopathy Pt with prolong hospitalization, undergoing infection treatment, polypharmacy. - continue Valproid Acid - holding trazodone, risperidone, melatonin - PT/OT/MANAGER PROCESS IMPROVEMENT following - s/p head CT scan 03/22 (w/o no new acute findings per neuro stroke) - MRI brain ordered (no acute findings compared prior MRI 03/07) - will continue to provide supportive care Pulm: Hx of COPD. Acute hypoxic respiratory failure. Treated for MRSA PNA. Currently, undergoing treatment for PSAG pneumonia. Left lower lobe collapse on CXR. Did not wear CPAP overnight. - will continue Levaquin for PSA coverage - continue budesonide, albuterol prn - will continue auto CPAP and RA during the day (while off CPAP) - IPV- can provide cough assist when DCd to facility ID: Continues with Leukocytosis but downtrending, however remains afebrile. Currently with PSA in the sputum (03/21). 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 Tolerating tube feeds - continue bowel regimen - s/p EGD 02/21 showing LA grade D esophagitis - continue PPI twice a day x 3 months - Replete electrolytes as needed - daily RFP Renal: no issues Endo: IDDM - continue Lantus 30 units (40 units home dose) - mild corrective insulin scale as needed - hypoglycemia protocol ordered as needed - holding home 70/30 insulin PPX: cont lovenox and scds DNAR/DNI lines: midline Likely DC to SNF when lung re-expands Dispo: Keep patient in the SDU until DC at end of week,, Wednesday at the earliest. Facility will only be able to provide cough assist. d/c with Dr Hanna Signature/Cosignature/Attestation: Attending Only - Shared Visit with Advanced Practice ProviderThis is a shared visit. I have reviewed the Advanced Practice Providers encounter note, approve the Advanced Practice Providers documentation, and provide the following additional information from my personal encounter. Comments/ Additional Findings This is a shared visit. Both the HANDLE SANDER OPERATOR and I have had a [id number] encounter with this patient today. I have reviewed the child care aide encounter note and approve the child care aide documentation. The following is additional information from my personal encounter with this patient: No further information obtained. Electronic Signatures: Evelin Hernadez ([employer] OPERATOR-GROUP MANAGER) (Signed 30-Mar-2018 18:14) Authored: Service, Subjective Data, Objective Data, Assessment and Plan, Signature/Cosignature/Attestation Mika Hanna) (Signed 31-Mar-2018 10:56) Authored: Signature/Cosignature/Attestation Co-Signer: Service, Subjective Data, Objective Data, Assessment and Plan, Signature/Cosignature/Attestation Last Updated: 31-Mar-2018 10:56 by Mika Hanna) GLUCOSE-POCT Collected: 03/30/2018 Status: F Source: [facility] 5:30 PM [facility]OSPITALS REPOSITORY TYPE CODE TESTS RESULT OUT OF RANGE REFERENCE UNITS LAB GLUP(LOINC) 74 - 99 mg/dL High 158 GLUCOSE-POCT Performed By: #### GLUPO #### [facility] [address] [place] [address] GLUCOSE-POCT Collected: 03/30/2018 Status: F Source: [facility] 12:41 PM [facility]OSPITALS REPOSITORY TYPE CODE TESTS RESULT OUT OF RANGE REFERENCE UNITS LAB GLUP(LOINC) 74 - 99 mg/dL High 165 GLUCOSE-POCT Performed By: #### GLUPO #### [facility] [address] [place] [address] CBC Collected: 03/30/2018 Status: F Source: [facility] 6:39 AM HOSPITALS REPOSITORY TYPE CODE TESTS RESULT OUT OF REFERENCE UNITS RANGE LAB WBCR(LOINC 4.4 - 11.3 x10E9/L ) WBC High 15.7 LAB NRBC(LOINC 0.0-0.0 /100 WBC ) NUCLEATED RBC 0.0 LAB RBCCT(LOIN 4.50 - 5.90 x10E12/L C) Low RBC 4.10 LAB HGB(LOINC) 13.5 - 17.5 g/dL Low HGB 11.9 LAB HCT(LOINC) 41.0 - 52.0 % Low HCT 39.1 LAB MCV(LOINC) 80 - 100 fL MCV 95 LAB MCHC2(LOIN 32.0 - 36.0 g/dL C) Low MCHC 30.4 LAB PLTCT(LOIN 150 - 450 x10E9/L C) PLT 216 LAB RDWCV(LOIN 11.5 - 14.5 % C) High RDW-CV 17.5 Performed By: #### CBC #### [facility] [address] [place] [address] MAGNESIUM Collected: 03/30/2018 Status: F Source: [facility] 6:39 AM HOSPITALS REPOSITORY TYPE CODE TESTS RESULT OUT OF REFERENCE UNITS RANGE LAB MG(LOINC) 1.60 - 2.40 mg/dL MAGNESIUM 2.05 Performed By: #### MG #### [facility] [address] [place] [address] RENAL FUNCTION PANEL Collected: 03/30/2018 Status: F Source: [facility] 6:39 AM [facility]OSPITALS REPOSITORY TYPE CODE TESTS RESULT OUT OF REFERENCE UNITS RANGE LAB GLU(LOINC) 74 - 99 mg/dL GLUCOSE High 158 LAB SOD(LOINC) 136 - 145 mmol/L Low SODIUM 132 LAB K(LOINC) 3.5 - 5.3 mmol/L POTASSIUM 4.9 LAB CHLOR(LOIN 98 - 107 mmol/L C) Low CHLORIDE 94 LAB BIC(LOINC) 21 - 32 mmol/L BICARBONATE 29 LAB ANGAP(LOIN 10 - 20 mmol/L C) ANION GAP 14 LAB UREA(LOINC 6 - 23 mg/dL ) UREA High NITROGEN 34 LAB CREA(LOINC 0.50 - 1.30 mg/dL ) CREATININE 0.60 LAB GFRFN(LOIN >60 mL/min/1.7 C) 3m2 GFR-NON AM. >60 LAB GFRAA(LOIN >60 mL/min/1.7 C) 3m2 GFR- AM. >60 Result Comment: CALCULATIONS OF ESTIMATED GFR ARE PERFORMED USING THE MDRD STUDY EQUATION FOR THE IDMS-TRACEABLE CREATININE METHODS. CLIN CHEM 2007;53:766-72 LAB CA(LOINC) 8.6 - 10.6 mg/dL CALCIUM 9.3 LAB PHOS(LOINC) 2.5 - 4.9 mg/dL PHOSPHORUS 3.0 Result Comment: The performance characteristics of phosphorus testing in heparinized plasma have been validated by the individual laboratory site where testing is performed. Testing on heparinized plasma is not approved by the FDA; however, such approval is not necessary. LAB ALB(LOINC) 3.4 - 5.0 g/dL Low ALBUMIN 2.8 Performed By: #### RENAL #### [facility] [address] [place] [address] GLUCOSE-POCT Collected: 03/30/2018 Status: F Source: [facility] 5:51 AM [facility] REPOSITORY TYPE CODE TESTS RESULT OUT OF RANGE REFERENCE UNITS LAB GLUP(LOINC) 74 - 99 mg/dL High 160 GLUCOSE-POCT Performed By: #### GLUPO #### [facility] [address] [place] [address] GLUCOSE-POCT Collected: 03/30/2018 Status: F Source: [facility] 12:18 AM [facility] REPOSITORY TYPE CODE TESTS RESULT OUT OF RANGE REFERENCE UNITS LAB GLUP(LOINC) 74 - 99 mg/dL High 161 GLUCOSE-POCT Performed By: #### GLUPO #### [facility] [address] [place] [address] GLUCOSE-POCT Collected: 03/29/2018 Status: F Source: [facility] 5:16 PM [facility] REPOSITORY TYPE CODE TESTS RESULT OUT OF RANGE REFERENCE UNITS LAB GLUP(LOINC) 74 - 99 mg/dL High 149 GLUCOSE-POCT Performed By: #### GLUPO #### [facility] [address] [place] [address] GLUCOSE-POCT Collected: 03/29/2018 Status: F Source: [facility] 12:18 PM [facility] REPOSITORY TYPE CODE TESTS RESULT OUT OF RANGE REFERENCE UNITS LAB GLUP(LOINC) 74 - 99 mg/dL High 173 GLUCOSE-POCT Performed By: #### GLUPO #### [facility] [address] [place] [address] TH CHEST 1 VIEW Observed: 03/29/2018 Status: F Source: [facility] 9:55 AM [facility] REPOSITORY Patient Name: DIPESH BERMUDEZ STUDY: TH CHEST 1 VIEW; 03/29/2018 9:55 am INDICATION: Signs/Symptoms: left lower lobe collapse. COMPARISON: 03/28/2018 ACCESSION NUMBER(S): [id number] ORDERING CLINICIAN: CHERELLE JUAREZ FINDINGS: The cardiac silhouette size is stable. There is calcification in aortic knob.There is left basilar opacity and blunting of left costophrenic angle. There is no edema or pneumothorax. No acute osseous abnormality. IMPRESSION: 1. Persistent left basilar and retrocardiac opacity which might be due to left basilar atelectasis and small effusion with infectious infiltrate not excluded. Electronically signed by: FADIA WEI MD DAILY PROGRESS Observed: 03/29/2018 Status: COMPLETED Source: [facility]-PULMONOLOGY 8:17 AM [facility] REPOSITORY Service: Pulmonology Subjective Data: DIPESH BERMUDEZ is a 67 year old Male who is Hospital Day # 48 and POD #46 for left retrosigmoid craniotomy for tumor resection. did not wear CPAP overnight. Objective Data: Objective Information: ---- Intake and Output ----- Mn/Dy/Year TimeIntakeOutputNet Mar 29, 2018 6:00 [id number] Mar 28, 2018 10:00 [id number] Mar 28, 2018 2:00 [id number] The Intake and Output Totals for the last 24 hours are: IntakeOutputNet 2100nullnull T PRBPSpO2 [id number]/6393% Date/Time03/29 4: 4: 4: 4: 4:00 Range(36.2C - 36.6C ) (79 - 90 ) (13 - 22 ) (124 - 141 )/ (63 - 90 ) (93% - 98% ) Pain with Activity reported at 03/28 21:00: 0 Pain at Rest reported at 03/28 21:00: 0 Physical Exam: Constitutional: no apparent distress Eyes: anicteric sclera ENMT: mm pink, oral thrush Head/Neck: normocephalic Respiratory/Thorax: diminshed breath sounds on left Cardiovascular: RRR Gastrointestinal: abdomen nontender, PEG Genitourinary: incontinent Musculoskeletal: REMY Extremities: no edema Neurological: A/O to self, follows commands Psychological: flat affect Skin: warm, dry Medication: Medications: Continuous Medications No continuous medications are active Scheduled Medications 1. Albuterol 2.5 mg/ 3 mL Nebulizer Soln: 3 mL Inhalation Every 6 Hours 2. Atorvastatin: 40 mg Oral Daily 3. Budesonide 0.5 mg/ 2 mL Nebulizer Soln: 2 mL Inhalation Every 12 Hours 4. Docusate 50 mg - Senna 8.6 m tablet(s) Oral 2 Times a Day 5. Enoxaparin SubCutaneous: 40 mg SubCutaneous Every 24 Hours 6. Esomeprazole Oral Packet: 40 mg PEG Tube 2 Times a Day 7. Insulin Glargine (Lantus) Injectable: 30 unit(s) SubCutaneous Every 24 Hours 8. Insulin Lispro Mild Corrective Scale: unit(s) SubCutaneous Every 6 Hours 9. levoFLOXacin 750 mg IVPB/ Premix 150 mL: 150 mL IntraVenous Piggyback Every 24 Hours 10. Nicotine 7 mg/ 24 hour TransDermal: 1 patch TransDermal Every 24 Hours 11. Nystatin Oral Liquid: [id number] unit(s) Oral Every 6 Hours 12. Petrolatum Topical: 1 application(s) Topical 2 Times a Day 13. Saliva Substitute: 5 mL Oral 4 Times a Day 14. Silodosin (NON - Formulary): 8 mg NasoGastric Tube Daily 15. Simethicone Oral Liquid Drops: 80 mg Oral 4 Times a Day After Meals 16. Sodium Chloride 0.9% Injectable Flush: 10 mL IntraVenous Flush Every 12 Hours 17. Sodium Chloride 0.9% Injectable Flush: 10 mL IntraVenous Flush Every 12 Hours 18. Sodium Chloride 3% Nebulizer Soln: 3 mL Inhalation Every 6 Hours 19. Valproic Acid (Depakene) Oral Liquid: 250 mg PEG Tube Every 12 Hours PRN Medications 1. Acetaminophen: 650 mg Oral Every 6 Hours 2. Bisacodyl Rectal: 10 mg Rectal Daily 3. Dextrose 50% in Water Injectable: 25 gram(s) IntraVenous Push Every 15 Minutes 4. Glucagon Injectable: 1 mg IntraMuscular Every 15 Minutes 5. Heparin Flush 10 unit/ mL PF Injectable: 5 mL IntraVenous Flush Every 12 Hours 6. Heparin Flush 10 unit/ mL PF Injectable PRN: 5 mL IntraVenous Flush According to Flush Policy 7. Heparin Flush 10 unit/ mL PF Injectable PRN: 5 mL IntraVenous Flush According to Flush Policy 8. Ondansetron Injectable: 4 mg IntraVenous Push Every 6 Hours 9. Polyethylene Glycol: 17 gram(s) Oral Daily 10. Sodium Chloride 0.9% Injectable Flush PRN: 10 mL IntraVenous Flush According to Flush Policy 11. Sodium Chloride 0.9% Injectable Flush PRN: 20 mL IntraVenous Flush According to Flush Policy Recent Lab Results: Results: I have reviewed these laboratory results: Complete Blood Count + Differential 29-Mar-2018 06:13:00 ResultValue White Blood Cell Count 16.1 H Nucleated Erythrocyte Count 0.0 Red Blood Cell Count 4.09 L HGB 12.0 L HCT 38.5 L MCV 94 MCHC 31.2 L PLT 210 RDW-CV 17.7 H Neutrophil % 73.7 Immature Granulocytes % 1.6 Lymphocyte % 14.3 Monocyte % 7.4 Eosinophil % 2.3 Basophil % 0.7 Neutrophil Count 11.88 H Lymphocyte Count 2.31 Monocyte Count 1.20 H Eosinophil Count 0.37 Basophil Count 0.12 H Glucose_POCT Trending View [id number] 05:17:00 29-Mar-2018 00:09:00 [id number] H 168 H I have reviewed these laboratory results: Renal Function Panel 29-Mar-2018 06:13:00 ResultValue Glucose, Serum 130 H NA 133 L K 4.7 CL 95 L Bicarbonate, Serum 30 Anion Gap, Serum 13 BUN 36 H CREAT 0.58 GFR-Non >60 GFR- >60 Calcium, Serum 9.3 Phosphorus, Serum 2.8 ALB 2.8 L Assessment and Plan: Assessment: Patient is 67 year old male patient who is s/p meningioma resection on 02/11 c/b L brainstem infarction, dysphagia and dysarthria, Right sided weakness, hypoxemic respiratory failure (treated for MRSA), AMS, now undergoing treatment for PSAG. Transfer to SDU on 03/22 for aggressive pulmonary toileting for left lobe collapse. Neuro: s/p meningioma resection on 02/11 c/b L brainstem infarction, dysphagia and dysarthria, right sided weakness. c/b AMS, difficult to arouse in the SDU on 03/22 s/p Head CT scan w/o acute findings. Patient at high risk for metabolic encephalopathy Pt with prolong hospitalization, undergoing infection treatment, polypharmacy. - continue Valproid Acid - holding trazodone, risperidone, melatonin - PT/OT/MANAGER PROCESS IMPROVEMENT following - s/p head CT scan 03/22 (w/o no new acute findings per neuro stroke) - MRI brain ordered (no acute findings compared prior MRI 03/07) - will continue to provide supportive care Pulm: Hx of COPD. Acute hypoxia respiratory failure. Treated for MRSA PNA. Currently, undergoing treatment for PSAG pneumonia. Left lower lobe collapse on CXR. Did not wear CPAP overnight. - will continue Levaquin for PSA coverage - continue budesonide, albuterol prn - will continue auto CPAP and RA during the day (while off CPAP) - IPV- can provide cough assist when DCd to facility ID: Continues with Leukocytosis but downtrending, however remains afebrile. Currently with PSA in the sputum (03/21). 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 Tolerating tube feeds - continue bowel regimen - s/p EGD 02/21 showing LA grade D esophagitis - continue PPI twice a day x 3 months - Replete electrolytes as needed - daily RFP Renal: no issues Endo: IDDM - continue Lantus 30 units (40 units home dose) - mild corrective insulin scale as needed - hypoglycemia protocol ordered as needed - holding home 70/30 insulin PPX: cont lovenox and scds DNAR/DNI lines: midline Likely DC to SNF when lung re-expands Dispo: Keep patient in the SDU until DC at end of week,, Wednesday at the earliest. Facility will only be able to provide cough assist. Signature/Cosignature/Attestation: Attending Only - Shared Visit with Advanced Practice ProviderThis is a shared visit. I have reviewed the Advanced Practice Providers encounter note, approve the Advanced Practice Providers documentation, and provide the following additional information from my personal encounter. Comments/ Additional Findings This is a shared visit. Both the HANDLE SANDER OPERATOR and I have had a [id number] encounter with this patient today. I have reviewed the child care aide encounter note and approve the child care aide documentation. The following is additional information from my personal encounter with this patient: No further information obtained. Electronic Signatures: Cherelle Juarez ([employer] OPERATOR-GROUP MANAGER) (Signed 29-Mar-2018 16:17) Authored: Service, Subjective Data, Objective Data, Assessment and Plan, Signature/Cosignature/Attestation Mika Hanna) (Signed 29-Mar-2018 18:16) Authored: Signature/Cosignature/Attestation Co-Signer: Assessment and Plan, Signature/Cosignature/Attestation Last Updated: 29-Mar-2018 18:16 by Mika Hanna) CBC AND DIFFERENTIAL Collected: 03/29/2018 Status: F Source: [facility] 6:13 AM [facility] REPOSITORY TYPE CODE TESTS RESULT OUT OF REFERENCE UNITS RANGE LAB WBCR(LOINC 4.4 - 11.3 x10E9/L ) WBC High 16.1 LAB NRBC(LOINC 0.0-0.0 /100 WBC ) NUCLEATED RBC 0.0 LAB RBCCT(LOIN 4.50 - 5.90 x10E12/L C) Low RBC 4.09 LAB HGB(LOINC) 13.5 - 17.5 g/dL Low HGB 12.0 LAB HCT(LOINC) 41.0 - 52.0 % Low HCT 38.5 LAB MCV(LOINC) 80 - 100 fL MCV 94 LAB MCHC2(LOIN 32.0 - 36.0 g/dL C) Low MCHC 31.2 LAB PLTCT(LOIN 150 - 450 x10E9/L C) PLT 210 LAB RDWCV(LOIN 11.5 - 14.5 % C) RDW-CV High 17.7 LAB NEUT(LOINC 40.0 - 80.0 % ) % NEUTROPHIL 73.7 LAB IG(LOINC) 0.0 - 0.9 % % AUTOMATED 1.6 IMMATURE GRAN Result Comment: Percent differential counts (%) should be interpreted in the context of the absolute cell counts (cells/L). LAB LYMPH(LOINC) 13.0 - % 44.0 % LYMPHOCYTE 14.3 LAB MONO(LOINC) 2.0 - 10.0 % % MONOCYTE 7.4 LAB EOS(LOINC) 0.0 - 6.0 % % EOSINOPHIL 2.3 LAB BASO(LOINC) 0.0 - 2.0 % % BASOPHIL 0.7 LAB #NEUT(LOINC) 1.20 - x10E9/L 7.70 NEUTROPHIL High 11.88 LAB #LYMP(LOINC) 1.20 - x10E9/L 4.80 LYMPHOCYTE 2.31 LAB #MONO(LOINC) 0.10 - x10E9/L 1.00 MONOCYTE High 1.20 LAB #EOS(LOINC) 0.00 - x10E9/L 0.70 EOSINOPHIL 0.37 LAB #BASO(LOINC) 0.00 - x10E9/L 0.10 BASOPHIL High 0.12 Performed By: #### CBCDF #### [facility] [address] [place] [address] RENAL FUNCTION PANEL Collected: 03/29/2018 Status: F Source: [facility] 6:13 AM [facility] REPOSITORY TYPE CODE TESTS RESULT OUT OF REFERENCE UNITS RANGE LAB GLU(LOINC) 74 - 99 mg/dL GLUCOSE High 130 LAB SOD(LOINC) 136 - 145 mmol/L Low SODIUM 133 LAB K(LOINC) 3.5 - 5.3 mmol/L POTASSIUM 4.7 LAB CHLOR(LOIN 98 - 107 mmol/L C) Low CHLORIDE 95 LAB BIC(LOINC) 21 - 32 mmol/L BICARBONATE 30 LAB ANGAP(LOIN 10 - 20 mmol/L C) ANION GAP 13 LAB UREA(LOINC 6 - 23 mg/dL ) UREA High NITROGEN 36 LAB CREA(LOINC 0.50 - 1.30 mg/dL ) CREATININE 0.58 LAB GFRFN(LOIN >60 mL/min/1.7 C) 3m2 GFR-NON AM. >60 LAB GFRAA(LOIN >60 mL/min/1.7 C) 3m2 GFR- AM. >60 Result Comment: CALCULATIONS OF ESTIMATED GFR ARE PERFORMED USING THE MDRD STUDY EQUATION FOR THE IDMS-TRACEABLE CREATININE METHODS. CLIN CHEM 2007;53:766-72 LAB CA(LOINC) 8.6 - 10.6 mg/dL CALCIUM 9.3 LAB PHOS(LOINC) 2.5 - 4.9 mg/dL PHOSPHORUS 2.8 Result Comment: The performance characteristics of phosphorus testing in heparinized plasma have been validated by the individual laboratory site where testing is performed. Testing on heparinized plasma is not approved by the FDA; however, such approval is not necessary. LAB ALB(LOINC) 3.4 - 5.0 g/dL Low ALBUMIN 2.8 Performed By: #### RENAL #### [facility] [address] [place] [address] GLUCOSE-POCT Collected: 03/29/2018 Status: F Source: [facility] 5:17 AM [facility] REPOSITORY TYPE CODE TESTS RESULT OUT OF RANGE REFERENCE UNITS LAB GLUP(LOINC) 74 - 99 mg/dL High 148 GLUCOSE-POCT Performed By: #### GLUPO #### [facility] [address] [place] [address] GLUCOSE-POCT Collected: 03/29/2018 Status: F Source: [facility] 12:09 AM [facility]ALS REPOSITORY TYPE CODE TESTS RESULT OUT OF RANGE REFERENCE UNITS LAB GLUP(LOINC) 74 - 99 mg/dL High 168 GLUCOSE-POCT Performed By: #### GLUPO #### [facility] [address] [place] [address] GLUCOSE-POCT Collected: 03/28/2018 Status: F Source: [facility] 8:17 PM [facility]ALS REPOSITORY TYPE CODE TESTS RESULT OUT OF RANGE REFERENCE UNITS LAB GLUP(LOINC) 74 - 99 mg/dL High 147 GLUCOSE-POCT Performed By: #### GLUPO #### [facility] [address] [place] [address] GLUCOSE-POCT Collected: 03/28/2018 Status: F Source: [facility] 3:08 PM [facility] REPOSITORY TYPE CODE TESTS RESULT OUT OF RANGE REFERENCE UNITS LAB GLUP(LOINC) 74 - 99 mg/dL High 173 GLUCOSE-POCT Performed By: #### GLUPO #### [facility] [address] [place] [address] GLUCOSE-POCT Collected: 03/28/2018 Status: F Source: [facility] 11:48 AM [facility] REPOSITORY TYPE CODE TESTS RESULT OUT OF RANGE REFERENCE UNITS LAB GLUP(LOINC) 74 - 99 mg/dL High 197 GLUCOSE-POCT Performed By: #### GLUPO #### [facility] [address] [place] [address] CLOST.DIFF.TOXIN,PCR Collected: Status: F Source: [facility] 03/28/2018 11:39 AM [facility] REPOSITORY TYPE CODE TESTS RESULT OUT OF REFERENCE UNITS RANGE LAB CDPCR(LOINC Not Detected ) NOT DETECTED CLOST.DIFF.T OXIN,PCR Result Comment: This assay detects the presence of the tcdB (toxin B) gene via DNA amplification, and results should be interpreted in the context of the patients history and clinical findings. This test cannot be performed on formed stools or used as a test of cure, and should not be performed more than once per 7 days. Performed By: #### CDPCR #### [facility] [address] [place] [address] Observed: 03/28/2018 Status: F Source: [facility] BLOOD CULTURE, 11:25 AM [facility]OSPITALS REPOSITORY BACTERIAL PATIENT: DIPESH BERMUDEZ LOCATION: [address]#: [id number] : 54 AGE: SEX: M ORDERED BY: CHERELLE JUAREZ SOURCE: Blood COLLECTED: 03/28/18 11:25 ANTIBIOTICS AT [facility].: RECEIVED : 03/28/18 13:05 SITE: PERIPHERAL lt ac R E S U L T S BLOOD CULTURE, BACTERIAL FINAL 04/02/18 13:42 No Growth at 1 days No Growth at 2 days No Growth at 3 days No Growth at 4 days NO GROWTH - FINAL REPORT Performed By: #### BLDC #### [facility] [address] [place] [address] URINALYSIS Collected: 03/28/2018 Status: F Source: [facility] 11:18 AM [facility] REPOSITORY TYPE CODE TESTS RESULT OUT OF RANGE REFERENCE UNITS LAB COLU(LOIN STRAW,YELLOW C) COLOR YELLOW LAB APPRU(SHAKEEL CLEAR NC) APPEARANCE CLEAR LAB SPGRU(SHAKEEL 1.005 - 1.035 NC) SPECIFIC GRAVITY 1.017 LAB CAMMY(LOINC 5.0 - 8.0 ) pH 7.0 LAB PROTU(SHAKEEL NEGATIVE mg/dL NC) PROTEIN Abnormal 30 (1+) LAB GLUCU(SHAKEEL NEGATIVE mg/dL NC) GLUCOSE Abnormal 50 (TRACE) LAB BLDU(LOIN NEGATIVE C) BLOOD NEGATIVE LAB KETU(LOIN NEGATIVE mg/dL C) KETONES NEGATIVE LAB BILIU(SHAKEEL NEGATIVE NC) BILIRUBIN NEGATIVE LAB UROU2(SHAKEEL 0.0 - 1.9 mg/dL NC) UROBILINOGEN <2.0 LAB NITRU(SHAKEEL NEGATIVE NC) NITRITE NEGATIVE LAB LEUKU(SHAKEEL NEGATIVE NC) LEUKOCYTE ESTERASE NEGATIVE Performed By: #### UA #### [facility] [address] [place] [address] UA MICROSCOPIC Collected: 03/28/2018 Status: F Source: [facility] 11:18 [facility] REPOSITORY TYPE CODE TESTS RESULT OUT OF RANGE REFERENCE UNITS LAB WBCUR(LOINC 0-5 /HPF ) WBC 3 LAB RBCUR(LOINC 0-5 /HPF ) Abnormal RBC 12 LAB MUCOU(LOINC /LPF ) MUCUS 1+ Performed By: #### UAMIC #### [facility] [address] [place] [address] URINE Observed: 03/28/2018 Status: F Source: [facility] CULTURE,BACTERIAL 11:18 HOSPITALS REPOSITORY PATIENT: DIPESH BERMUDEZ LOCATION: [place] [id number] BILL#: [id number] : 54 AGE: SEX: M ORDERED BY: CHERELLE JUAREZ SOURCE: URINE COLLECTED: 03/28/18 11:18 ANTIBIOTICS AT [facility].: RECEIVED : 03/28/18 13:19 SITE: Straight Cath R E S U L T S URINE CULTURE,BACTERIAL FINAL 03/29/18 08:01 NO GROWTH Performed By: #### URINC #### [facility] [address] [place] [address] DAILY PROGRESS Observed: 03/28/2018 Status: COMPLETED Source: UNIVERSITY NOTE-INFECTIOUS DISEASE 10:59 AM [facility]OSPITALS REPOSITORY Service: Infectious Disease Subjective Data: DIPESH BERMUDEZ is a 67 year old Male who is Hospital Day # 47 and POD #45 for left retrosigmoid craniotomy for tumor resection. Additional Information: Infectious disease service is called back regarding increased leukocytosis. ID team comprised of different providers had been consulted before for pneumonia with Pseudomonas aeruginosa and MRSA growing from sputum. In brief, this is a 67-yearold male with a history of meningioma s/p resection in 2013 who presented on 02/10/18 for resection of enlarging residual mass and underwent repeat craniotomy with titanium mesh placement on 02/11 with complication of brainstem infarction and resultant desaturations and aspirations. 02/21 he had PEG tube placed. 02/24 sputum cultures eventually grew out MRSA, planned for 1 week of therapy for HAP/VAP. Leukocytosis stable but not improved by the end of therapy so ID consulted and switched vancomycin to linezolid. CT chest 03/12 showed left lung collapse. Repeat sputum culture 03/14/18 grew out Pseudomonas aeruginosa and so he was planned on piperacillin-tazobctam for 14 day course. ID signed off 03/15/18. A repeat sputum culture from 03/19/18 grew out different Pseudomonas with more resistant profile. Changed from piperacillin-tazobactam to levofloxacin 03/21/18. White count has trended back up again but patient is clinically stable, no new oxygen requirements. In addition, patient has had no chest pain, sob, rash, diarrhea, or headache. Objective Data: Objective Information: ---- Intake and Output ----- Mn/Dy/Year TimeIntakeOutputNet Mar 28, 2018 6:00 [id number] Mar 27, 2018 10:00 [id number] Mar 27, 2018 2:00 [id number] The Intake and Output Totals for the last 24 hours are: IntakeOutputNet 2120nullnull T PRBPSpO2 [id number]/9095% Date/Time03/28 16: 16: 16: 16: 16:00 Range(36.2C - 37.1C ) (78 - 94 ) (10 - 24 ) (118 - 140 )/ (56 - 90 ) (93% - 100% ) Highest temp of 37.1 C was recorded at 03/28 8:00 Pain with Activity reported at 03/28 16:00: 0 Pain at Rest reported at 03/28 16:00: 0 Physical Exam: Constitutional: In no acute distress, non-toxic appearing alert and interactive slightly dysarthric but understandable Eyes: PERRL, EOMI, clear sclera ENMT: Dry mucous membranes, no lesions noted. Head/Neck: Left sided post-auricular fluid collection that can be seen and palpated where surgical site is. Non-tender, not warm or fluctuant. Respiratory/Thorax: Diminished most on left base but otherwise comfortable in room air and clear. Cardiovascular: Regular rate and rhythm, no murmurs, rubs, gallops. Gastrointestinal: Soft, non-tender, non-distended. A PEG tube is in place, not leaking feeds. Genitourinary: Sacral area clean and clear No ulcers Musculoskeletal: No joint swelling noted. Extremities: RUE PICC line. Surrounding area appears clean, no signs of inflammation Neurological: Right UE, LE weaker than left. Right sided facial droop. Lymphatic: No significant lymphadenopathy Psychological: Appropriate mood and behavior Skin: No rashes, no sacral wound Medication: Medications: ANTI-INFECTIVES: 1. Nystatin Oral Liquid: [id number] unit(s) Oral Every 6 Hours 2. levoFLOXacin 750 mg IVPB/ Premix 150 mL: 150 mL IntraVenous Piggyback Every 24 Hours CARDIOVASCULAR AGENTS: 1. Silodosin (NON - Formulary): 8 mg NasoGastric Tube Daily CENTRAL NERVOUS SYSTEM AGENTS: 1. Acetaminophen: 650 mg Oral Every 6 Hours PRN 2. Valproic Acid (Depakene) Oral Liquid: 250 mg PEG Tube Every 12 Hours 3. Ondansetron Injectable: 4 mg IntraVenous Push Every 6 Hours PRN COAGULATION MODIFIERS: 1. Enoxaparin SubCutaneous: 40 mg SubCutaneous Every 24 Hours 2. Heparin Flush 10 unit/ mL PF Injectable: 5 mL IntraVenous Flush Every 12 Hours PRN 3. Heparin Flush 10 unit/ mL PF Injectable PRN: 5 mL IntraVenous Flush According to Flush Policy PRN 4. Heparin Flush 10 unit/ mL PF Injectable PRN: 5 mL IntraVenous Flush According to Flush Policy PRN GASTROINTESTINAL AGENTS: 1. Bisacodyl Rectal: 10 mg Rectal Daily PRN 2. Docusate 50 mg - Senna 8.6 m tablet(s) Oral 2 Times a Day 3. Polyethylene Glycol: 17 gram(s) Oral Daily PRN 4. Simethicone Oral Liquid Drops: 80 mg Oral 4 Times a Day After Meals 5. Esomeprazole Oral Packet: 40 mg PEG Tube 2 Times a Day METABOLIC AGENTS: 1. Insulin Glargine (Lantus) Injectable: 30 unit(s) SubCutaneous Every 24 Hours 2. Insulin Lispro Mild Corrective Scale: unit(s) SubCutaneous Every 6 Hours 3. Atorvastatin: 40 mg Oral Daily 4. Dextrose 50% in Water Injectable: 25 gram(s) IntraVenous Push Every 15 Minutes PRN 5. Glucagon Injectable: 1 mg IntraMuscular Every 15 Minutes PRN MISCELLANEOUS AGENTS: 1. Nicotine 7 mg/ 24 hour TransDermal: 1 patch TransDermal Every 24 Hours NUTRITIONAL PRODUCTS: 1. Sodium Chloride 0.9% Injectable Flush: 10 mL IntraVenous Flush Every 12 Hours 2. Sodium Chloride 0.9% Injectable Flush: 10 mL IntraVenous Flush Every 12 Hours 3. Sodium Chloride 0.9% Injectable Flush PRN: 10 mL IntraVenous Flush According to Flush Policy PRN 4. Sodium Chloride 0.9% Injectable Flush PRN: 20 mL IntraVenous Flush According to Flush Policy PRN RESPIRATORY AGENTS: 1. Albuterol 2.5 mg/ 3 mL Nebulizer Soln: 3 mL Inhalation Every 6 Hours 2. Sodium Chloride 3% Nebulizer Soln: 3 mL Inhalation Every 6 Hours 3. Budesonide 0.5 mg/ 2 mL Nebulizer Soln: 2 mL Inhalation Every 12 Hours TOPICAL AGENTS: 1. Petrolatum Topical: 1 application(s) Topical 2 Times a Day 2. Saliva Substitute: 5 mL Oral 4 Times a Day Recent Lab Results: Results: I have reviewed these laboratory results: Complete Blood Count + Differential 28-Mar-2018 06:12:00 ResultValue White Blood Cell Count 18.7 H Nucleated Erythrocyte Count 0.0 Red Blood Cell Count 3.97 L HGB 11.6 L HCT 37.8 L MCV 95 MCHC 30.7 L PLT 221 RDW-CV 17.9 H Neutrophil % 78.5 Immature Granulocytes % 1.7 Lymphocyte % 12.0 Monocyte % 6.1 Eosinophil % 1.0 Basophil % 0.7 Neutrophil Count 14.71 H Lymphocyte Count 2.24 Monocyte Count 1.15 H Eosinophil Count 0.18 Basophil Count 0.14 H Renal Function Panel 28-Mar-2018 06:12:00 ResultValue Glucose, Serum 137 H NA 133 L K 4.8 CL 95 L Bicarbonate, Serum 30 Anion Gap, Serum 13 BUN 34 H CREAT 0.58 GFR-Non >60 GFR- >60 Calcium, Serum 9.5 Phosphorus, Serum 3.0 ALB 2.8 L Procalcitonin, Serum 28-Mar-2018 06:12:00 ResultValue Procalcitonin, Serum 0.09 A Radiology Results: Results: Impression: 1. Left basilar consolidation concerning for pneumonia, grossly unchanged.. 2. Small left basilar pleural effusion. Xray Chest 1 View [Mar 28 2018 12:14PM] Impression: Overall, no significant interval change compared to prior examination dated 03/07/2018. MRI Brain without Contrast [Mar 23 2018 3:00PM] Assessment and Plan: Assessment: 67-yearold male with a history of meningioma s/p resection in 2013 who presented on 02/10/18 for resection of enlarging residual mass and underwent repeat craniotomy with titanium mesh placement on 02/11 with complication of brainstem infarction and resultant desaturations and aspirations. Treated already for both MRSA and pseudomonal pneumonia with ongoing leukocytosis. With no fever, change in respiratory effort or support needs the white count likely does not reflect a new pneumonia. It may be that he is continuing to aspirate. Pseudomonas that grew out 03/19 with very different resistance profile is likely just a different strain not a developed resistance over a few days. In addition to pulmonary source, other sources of leukocytosis could be PICC line, C difficile given antibiotics (stools were soft appearing in diaper), loculated effusion in the pleural space. He remarkably does not have sacral decubitus ulcers/skin breakdown. Clinically, the patient is relatively well appearing. It may be that we do not find exact cause of leukocytosis in this patient and if all workup comes back negative would just have to follow clinically. 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 Complicated by stroke in post-op period MICRO 03/22 urine Cx NGTD 03/19 Pseudomonas aeruginosa sensitive to meropenem, imipenem, ciprofloxacin, levofloxacin, tobramycin; resistant to piperarcillin-tazobactam, aztreonam, intermediate to cefepime 03/14 Pseudomonas aeruginosa sensitive to piperacillin-tazobactam, cefepime, meropenem, imipenem, aztreonam, ciprofloxacin, levofloxacin, tobramycin 02/24 Sputum MRSA Antibiotics levofloxacin (03/21 - current) piperacillin-tazobactam (03/13 - 03/21) linezolid (03/04 - 03/18) vancomycin (02/24 - 03/04) azithromycin (02/16 - 02/22) RECOMMENDATIONS - repeat blood cultures and include one set from PICC line - repeat urine culture - induce sputum for culture - order thoracic ultrasound to see if left pleural effusion can be drained - check C difficile. - continue on levofloxacin 750 mg every daily. Will follow Discussed with attending on ID rounds. Please check for attending updates to this note. Allan Monique MD Adult and Pediatric Infectious Disease Fellow [facility] Team A Pager: [phone] Signature/Cosignature/Attestation: Attending AttestationI saw and evaluated the patient. I personally obtained the gonzalez and critical portions of the history and physical exam or was physically present for gonzalez and critical portions performed by the resident/fellow. I reviewed the resident/fellows documentation and discussed the patient with the resident/fellow. I agree with the resident/fellows medical decision making as documented in the residents note. I personally evaluated the patient (as noted in the above attestation) on 28-Mar-2018 Electronic Signatures: Aureliano Nelson) (Signed 29-Mar-2018 08:01) Authored: Subjective Data, Objective Data, Assessment and Plan, Signature/Cosignature/Attestation Co-Signer: Subjective Data, Objective Data, Assessment and Plan, Signature/Cosignature/Attestation Allan Monique (Fellow)) (Signed 28-Mar-2018 19:34) Authored: Service, Subjective Data, Objective Data, Assessment and Plan, Signature/Cosignature/Attestation Last Updated: 29-Mar-2018 08:01 by Aureliano Nelson) Observed: 03/28/2018 Status: F Source: [facility] RESPIRATORY 10:46 AM HOSPITALS REPOSITORY CULT./[facility] PATIENT: DIPESH BERMUDEZ LOCATION: [place] [address] BILL#: [id number] : 54 AGE: SEX: M ORDERED BY: NORM CARRILLO SOURCE: SPUTUM COLLECTED: 03/28/18 10:46 ANTIBIOTICS AT [place].: RECEIVED : 03/28/18 13:19 SITE: Supplemental Report R E S U L T S GRAM STAIN FINAL 03/28/18 16:34 THE GRAM STAIN INDICATES THAT THE SPECIMEN CONTAINS SIGNIFICANT SALIVARY CONTAMINATION. THE CULTURE WILL NOT BE PROCESSED IT WILL BE OF LIMITED DIAGNOSTIC VALUE.A SPECIMEN OF BETTER QUALITY SHOULD BE SUBMITTED IF CLINICALLY INDICATED. RESPIRATORY CULT./,[facility] FINAL 03/31/18 12:44 THIS REPORT CONTAINS ADDITIONAL INFORMATION NOT INCLUDED IN PREVIOUS FINAL REPORT. WORK UP PER DOCTOR REQUEST. ISOLATE1 : Staphylococcus aureus 3+ METHICILLIN(OXACILLIN)RESISTANT METHICILLIN(OXACILLIN)RESISTANT STAPHYLOCOCCI ARE RESISTANT TO ALL CURRENTLY AVAILABLE PENICILLINS, BETA-LACTAM/BETA-LACTAMASE INHIBITOR COMBINATIONS (INCLUDING AMPICILLIN/SULBACTAM, AMOXICILLIN/CLAVULANATE AND PIPERACILLIN/TAZOBACTAM),CARBAPENEMS AND CEPHALOSPORINS(EXCEPT CEFTAROLINE). ISOLATE2 : Pseudomonas aeruginosa 4 COLONIES Organism S aureus Ps aerug Antibiotic BP INTRP BP INTRP Ampicillin R Clindamycin R Ciprofloxacin R S Erythromycin R Gentamicin S S Levofloxacin R S Oxacillin R Penicillin R Trimeth/Sulfa S Tetracycline S Vancomycin S Aztreonam R Ceftazidime S Cefepime S Piperc/Tazobact S Tobramycin S S=SUSCEPTIBLE I=INTERMEDIATE R=RESISTANT SDD=SUSCEPTIBLE DOSE DEPENDENT NS=NONSUSCEPTIBLE X=REPORTED IN ERROR Performed By: #### RESPL #### [facility] [address] [place] [address] GLUCOSE-POCT Collected: 03/28/2018 Status: F Source: [facility] 8:36 AM HOSPITALS REPOSITORY TYPE CODE TESTS RESULT OUT OF RANGE REFERENCE UNITS LAB GLUP(LOINC) 74 - 99 mg/dL High 165 GLUCOSE-POCT Performed By: #### GLUPO #### [facility] [address] [place] [address] DAILY PROGRESS Observed: 03/28/2018 Status: COMPLETED Source: [facility] NOTE-PULMONOLOGY 8:26 AM HOSPITALS REPOSITORY Service: Pulmonology Subjective Data: DIPESH BERMUDEZ is a 67 year old Male who is Hospital Day # 47 and POD #45 for left retrosigmoid craniotomy for tumor resection. alert, interactive, no distress. Objective Data: Objective Information: ---- Intake and Output ----- Mn/Dy/Year TimeIntakeOutputNet Mar 28, 2018 6:00 [id number] Mar 27, 2018 10:00 [id number] Mar 27, 2018 2:00 [id number] The Intake and Output Totals for the last 24 hours are: IntakeOutputNet 2120nullnull T PRBPSpO2 [id number]/7294% Date/Time03/28 0: 6: 6: 6: 6:00 Range(36.5C - 36.9C ) (78 - 96 ) (10 - 24 ) (112 - 135 )/ (56 - 88 ) (93% - 100% ) Highest temp of 36.9 C was recorded at 03/27 20:00 Pain with Activity reported at 03/27 21:00: 0 Pain at Rest reported at 03/27 21:00: 0 Physical Exam: Constitutional: alert, no apparent distress Eyes: anicteric sclera ENMT: oral thrush Head/Neck: normocephalic Respiratory/Thorax: diminshed breath sounds throughout Cardiovascular: RRR Gastrointestinal: abdomen soft, nontender Genitourinary: incontinent Musculoskeletal: REMY Extremities: no edema Neurological: A/Ox1-2, follows commands Skin: warm, dry Medication: Medications: Continuous Medications No continuous medications are active Scheduled Medications 1. Albuterol 2.5 mg/ 3 mL Nebulizer Soln: 3 mL Inhalation Every 6 Hours 2. Atorvastatin: 40 mg Oral Daily 3. Budesonide 0.5 mg/ 2 mL Nebulizer Soln: 2 mL Inhalation Every 12 Hours 4. Docusate 50 mg - Senna 8.6 m tablet(s) Oral 2 Times a Day 5. Enoxaparin SubCutaneous: 40 mg SubCutaneous Every 24 Hours 6. Esomeprazole Oral Packet: 40 mg PEG Tube 2 Times a Day 7. Insulin Glargine (Lantus) Injectable: 30 unit(s) SubCutaneous Every 24 Hours 8. Insulin Lispro Mild Corrective Scale: unit(s) SubCutaneous Every 6 Hours 9. levoFLOXacin 750 mg IVPB/ Premix 150 mL: 150 mL IntraVenous Piggyback Every 24 Hours 10. Nicotine 7 mg/ 24 hour TransDermal: 1 patch TransDermal Every 24 Hours 11. Nystatin Oral Liquid: 249911 unit(s) Oral Every 6 Hours 12. Petrolatum Topical: 1 application(s) Topical 2 Times a Day 13. Saliva Substitute: 5 mL Oral 4 Times a Day 14. Silodosin (NON - Formulary): 8 mg NasoGastric Tube Daily 15. Simethicone Oral Liquid Drops: 80 mg Oral 4 Times a Day After Meals 16. Sodium Chloride 0.9% Injectable Flush: 10 mL IntraVenous Flush Every 12 Hours 17. Sodium Chloride 0.9% Injectable Flush: 10 mL IntraVenous Flush Every 12 Hours 18. Sodium Chloride 3% Nebulizer Soln: 3 mL Inhalation Every 6 Hours 19. Valproic Acid (Depakene) Oral Liquid: 250 mg PEG Tube Every 12 Hours PRN Medications 1. Acetaminophen: 650 mg Oral Every 6 Hours 2. Bisacodyl Rectal: 10 mg Rectal Daily 3. Dextrose 50% in Water Injectable: 25 gram(s) IntraVenous Push Every 15 Minutes 4. Glucagon Injectable: 1 mg IntraMuscular Every 15 Minutes 5. Heparin Flush 10 unit/ mL PF Injectable: 5 mL IntraVenous Flush Every 12 Hours 6. Heparin Flush 10 unit/ mL PF Injectable PRN: 5 mL IntraVenous Flush According to Flush Policy 7. Heparin Flush 10 unit/ mL PF Injectable PRN: 5 mL IntraVenous Flush According to Flush Policy 8. Ondansetron Injectable: 4 mg IntraVenous Push Every 6 Hours 9. Polyethylene Glycol: 17 gram(s) Oral Daily 10. Sodium Chloride 0.9% Injectable Flush PRN: 10 mL IntraVenous Flush According to Flush Policy 11. Sodium Chloride 0.9% Injectable Flush PRN: 20 mL IntraVenous Flush According to Flush Policy Recent Lab Results: Results: I have reviewed these laboratory results: Glucose_POCT Trending View [id number] 11:48:00 28-Mar-2018 08:36:00 28-Mar-2018 05:09:00 [id number] H 165 H 124 H Urinalysis 28-Mar-2018 11:18:00 ResultValue Color, Urine YELLOW Reference Range: STRAW,YELLOW Appearance, Urine CLEAR Specific [place], Urine 1.017 pH, Urine 7.0 Protein, Urine 30 (1+) A Glucose, Urine 50 (TRACE) A Blood, Urine NEGATIVE Ketones, Urine NEGATIVE Bilirubin, Urine NEGATIVE Urobilinogen, Urine <2.0 Nitrite, Urine NEGATIVE Leukocyte Esterase, Urine NEGATIVE Urinalysis, Microscopic 28-Mar-2018 11:18:00 ResultValue White Cells 3 Red Blood Cells 12 A Mucous 1+ Complete Blood Count + Differential 28-Mar-2018 06:12:00 ResultValue White Blood Cell Count 18.7 H Nucleated Erythrocyte Count 0.0 Red Blood Cell Count 3.97 L HGB 11.6 L HCT 37.8 L MCV 95 MCHC 30.7 L PLT 221 RDW-CV 17.9 H Neutrophil % 78.5 Immature Granulocytes % 1.7 Lymphocyte % 12.0 Monocyte % 6.1 Eosinophil % 1.0 Basophil % 0.7 Neutrophil Count 14.71 H Lymphocyte Count 2.24 Monocyte Count 1.15 H Eosinophil Count 0.18 Basophil Count 0.14 H Renal Function Panel 28-Mar-2018 06:12:00 ResultValue Glucose, Serum 137 H NA 133 L K 4.8 CL 95 L Bicarbonate, Serum 30 Anion Gap, Serum 13 BUN 34 H CREAT 0.58 GFR-Non >60 GFR- >60 Calcium, Serum 9.5 Phosphorus, Serum 3.0 ALB 2.8 L Procalcitonin, Serum 28-Mar-2018 06:12:00 ResultValue Procalcitonin, Serum 0.09 A Radiology Results: Results: Impression: 1. Left basilar consolidation concerning for pneumonia, grossly unchanged.. 2. Small left basilar pleural effusion. Xray Chest 1 View [Mar 28 2018 12:14PM] Assessment and Plan: Assessment: Patient is 67 year old male patient who is s/p meningioma resection on 02/11 c/b L brainstem infarction, dysphagia and dysarthria, Right sided weakness, hypoxemic respiratory failure (treated for MRSA), AMS, now undergoing treatment for PSAG. Transfer to SDU on 03/22 for aggressive pulmonary toileting for left lobe collapse. Neuro: s/p meningioma resection on 02/11 c/b L brainstem infarction, dysphagia and dysarthria, right sided weakness. c/b AMS, difficult to arouse in the SDU on 03/22 s/p Head CT scan w/o acute findings. Patient at high risk for metabolic encephalopathy Pt with prolong hospitalization, undergoing infection treatment, polypharmacy. - continue Valproid Acid - holding trazodone, risperidone, melatonin - PT/OT/MANAGER PROCESS IMPROVEMENT following - s/p head CT scan 03/22 (w/o no new acute findings per neuro stroke) - MRI brain ordered (no acute findings compared prior MRI 03/07) - will continue to provide supportive care Pulm: Hx of COPD. Acute hypoxia respiratory failure. Treated for MRSA PNA. Currently, undergoing treatment for PSAG pneumonia. Left lower lobe collapse on CXR. - will continue Levaquin for PSA coverage - continue budesonide, albuterol prn - will continue auto CPAP and RA during the day (while off CPAP) - mechanical vest, IPV, bed percussion ID: Continues with Leukocytosis, however remains afebrile. Currently with PSA in the sputum (03/21). - sputum cx 02/24 grew MRSA - Treated for MRSA PNA (Vanco 02/17-02/22, 02/25-03/04) - Abx: Kvng (02/24-02/28) - cont Levofloxacin for PSA coverage (start 03/21) - plan to stop Levaquin on 03/31 (can transition to PEG route for DC) - f/u ID recs - c-diff, blood culture, sputum culture, UA/culture, consider tap of pleural effusion Cardiac: hx of HTN, remains HD stable - will continue to hold home amlodipine, HCTZ and Lisinopril for now - continue statin as ordered FEN/GI: Severe dysphagia 2/2 L brainstem infarction.s/p Peg tube 02/21. Tolerating tube feeds - continue bowel regimen - s/p EGD 02/21 showing LA grade D esophagitis - continue PPI twice a day x 3 months - Replete electrolytes as needed - daily RFP Renal: no issues Endo: IDDM - continue Lantus 30 units (40 units home dose) - mild corrective insulin scale as needed - hypoglycemia protocol ordered as needed - holding home 70/30 insulin PPX: cont lovenox and scds DNAR/DNI lines: midline Likely DC to SNF when lung re-expands Dispo: Keep patient in the SDU Signature/Cosignature/Attestation: Attending Only - Shared Visit with Advanced Practice ProviderThis is a shared visit. I have reviewed the Advanced Practice Providers encounter note, approve the Advanced Practice Providers documentation, and provide the following additional information from my personal encounter. Comments/ Additional Findings This is a shared visit. Both the HANDLE SANDER OPERATOR and I have had a [id number] encounter with this patient today. I have reviewed the child care aide encounter note and approve the child care aide documentation. The following is additional information from my personal encounter with this patient: No further information obtained. Electronic Signatures: Cherelle Juarez ([employer] OPERATOR-GROUP MANAGER) (Signed 28-Mar-2018 15:37) Authored: Service, Subjective Data, Objective Data, Assessment and Plan, Signature/Cosignature/Attestation Mika Hanna) (Signed 29-Mar-2018 18:15) Authored: Signature/Cosignature/Attestation Co-Signer: Signature/Cosignature/Attestation Last Updated: 29-Mar-2018 18:15 by Mika Hanna) CBC AND DIFFERENTIAL Collected: 03/28/2018 Status: F Source: [facility] 6:12 AM HOSPITALS REPOSITORY TYPE CODE TESTS RESULT OUT OF REFERENCE UNITS RANGE LAB WBCR(LOINC 4.4 - 11.3 x10E9/L ) WBC High 18.7 LAB NRBC(LOINC 0.0-0.0 /100 WBC ) NUCLEATED RBC 0.0 LAB RBCCT(LOIN 4.50 - 5.90 x10E12/L C) Low RBC 3.97 LAB HGB(LOINC) 13.5 - 17.5 g/dL Low HGB 11.6 LAB HCT(LOINC) 41.0 - 52.0 % Low HCT 37.8 LAB MCV(LOINC) 80 - 100 fL MCV 95 LAB MCHC2(LOIN 32.0 - 36.0 g/dL C) Low MCHC 30.7 LAB PLTCT(LOIN 150 - 450 x10E9/L C) PLT 221 LAB RDWCV(LOIN 11.5 - 14.5 % C) RDW-CV High 17.9 LAB NEUT(LOINC 40.0 - 80.0 % ) % NEUTROPHIL 78.5 LAB IG(LOINC) 0.0 - 0.9 % % AUTOMATED 1.7 IMMATURE GRAN Result Comment: Percent differential counts (%) should be interpreted in the context of the absolute cell counts (cells/L). LAB LYMPH(LOINC) 13.0 - % 44.0 % LYMPHOCYTE 12.0 LAB MONO(LOINC) 2.0 - 10.0 % % MONOCYTE 6.1 LAB EOS(LOINC) 0.0 - 6.0 % % EOSINOPHIL 1.0 LAB BASO(LOINC) 0.0 - 2.0 % % BASOPHIL 0.7 LAB #NEUT(LOINC) 1.20 - x10E9/L 7.70 NEUTROPHIL High 14.71 LAB #LYMP(LOINC) 1.20 - x10E9/L 4.80 LYMPHOCYTE 2.24 LAB #MONO(LOINC) 0.10 - x10E9/L 1.00 MONOCYTE High 1.15 LAB #EOS(LOINC) 0.00 - x10E9/L 0.70 EOSINOPHIL 0.18 LAB #BASO(LOINC) 0.00 - x10E9/L 0.10 BASOPHIL High 0.14 Performed By: #### CBCDF #### [facility] [address] [place] [address] RENAL FUNCTION PANEL Collected: 03/28/2018 Status: F Source: [facility] 6:12 AM HOSPITALS REPOSITORY TYPE CODE TESTS RESULT OUT OF REFERENCE UNITS RANGE LAB GLU(LOINC) 74 - 99 mg/dL GLUCOSE High 137 LAB SOD(LOINC) 136 - 145 mmol/L Low SODIUM 133 LAB K(LOINC) 3.5 - 5.3 mmol/L POTASSIUM 4.8 LAB CHLOR(LOIN 98 - 107 mmol/L C) Low CHLORIDE 95 LAB BIC(LOINC) 21 - 32 mmol/L BICARBONATE 30 LAB ANGAP(LOIN 10 - 20 mmol/L C) ANION GAP 13 LAB UREA(LOINC 6 - 23 mg/dL ) UREA High NITROGEN 34 LAB CREA(LOINC 0.50 - 1.30 mg/dL ) CREATININE 0.58 LAB GFRFN(LOIN >60 mL/min/1.7 C) 3m2 GFR-NON AM. >60 LAB GFRAA(LOIN >60 mL/min/1.7 C) 3m2 GFR- AM. >60 Result Comment: CALCULATIONS OF ESTIMATED GFR ARE PERFORMED USING THE MDRD STUDY EQUATION FOR THE IDMS-TRACEABLE CREATININE METHODS. CLIN CHEM 2007;53:766-72 LAB CA(LOINC) 8.6 - 10.6 mg/dL CALCIUM 9.5 LAB PHOS(LOINC) 2.5 - 4.9 mg/dL PHOSPHORUS 3.0 Result Comment: The performance characteristics of phosphorus testing in heparinized plasma have been validated by the individual laboratory site where testing is performed. Testing on heparinized plasma is not approved by the FDA; however, such approval is not necessary. LAB ALB(LOINC) 3.4 - 5.0 g/dL Low ALBUMIN 2.8 Performed By: #### RENAL #### [facility] [address] [place] [address] PROCALCITONIN Collected: 03/28/2018 Status: F Source: [facility] 6:12 AM [facility] REPOSITORY TYPE CODE TESTS RESULT OUT OF RANGE REFERENCE UNITS LAB PCALC(SHAKEEL <=0.07 ng/mL NC) PROCALCITONIN Abnormal 0.09 Result Comment: Note new reference range and methodology as of 06/29/2017. . Procalcitonin (PCT) results measured serially can aid in decision-making for antibiotic discontinuation in patients with suspected or confirmed sepsis in conjunction with additional clinical information. Antibiotic discontinuation may be considered with a change in PCT of >80% from the peak result or when PCT falls below 0.50 ng/mL. . Procalcitonin results should not be used in isolation but should be interpreted in conjunction with additional clinical and laboratory findings. Procalcitonin results should not be used to guide the initiation of antibiotic therapy. . Falsely low PCT values in the presence of bacterial infection may occur in early infection, with atypical pathogens, localized infections, and subacute infectious endocarditis. . Falsely elevated results outside of severe bacterial infection/sepsis may be seen in patients with renal failure or insufficiency, severe trauma or chao, recent major abdominal/cardiac surgery, acute multi-organ failure, rarely in patients with medullary thyroid carcinoma and rare neuroendocrine tumors, and non-specific interfering antibodies (heterophile antibodies, rheumatoid factor, human anti-mouse antibodies (HAMA), etc). . Performance of the PCT test in pediatric patients (<18yo), women, immunocompromised patients, and patients on immunomodulatory medications has not been evaluated. Performed By: #### PCALC #### [facility] [address] [place], [place] [id number] GLUCOSE-POCT Collected: 03/28/2018 Status: F Source: [facility] 5:09 AM [facility] REPOSITORY TYPE CODE TESTS RESULT OUT OF RANGE REFERENCE UNITS LAB GLUP(LOINC) 74 - 99 mg/dL High 124 GLUCOSE-POCT Performed By: #### GLUPO #### [facility] [address] [place] [address] TH CHEST 1 VIEW Observed: 03/28/2018 Status: F Source: [facility] 5:09 AM HOSPITALS REPOSITORY Patient Name: DIPESH BERMUDEZ STUDY: CHEST 1 VIEW; 03/28/2018 5:09 am INDICATION: Signs/Symptoms: hypoxia. COMPARISON: 03/27/2018 ACCESSION NUMBER(S): [id number] ORDERING CLINICIAN: NORM CARRILLO FINDINGS: The cardiac silhouette size is within normal limits. There is calcification in aortic knob. Right midline is projecting over the right axilla. Left basilar consolidation again identified. Small left basilar pleural effusion. No edema or pneumothorax. No acute osseous abnormality. IMPRESSION: 1. Left basilar consolidation concerning for pneumonia, grossly unchanged.. 2. Small left basilar pleural effusion. Electronically signed by: FADIA WEI MD GLUCOSE-POCT Collected: 03/27/2018 Status: F Source: [facility] 11:45 PM HOSPITALS REPOSITORY TYPE CODE TESTS RESULT OUT OF RANGE REFERENCE UNITS LAB GLUP(LOINC) 74 - 99 mg/dL High 190 GLUCOSE-POCT Performed By: #### GLUPO #### [facility] [address] [place] [address] GLUCOSE-POCT Collected: 03/27/2018 Status: F Source: [facility] 8:40 PM HOSPITALS REPOSITORY TYPE CODE TESTS RESULT OUT OF RANGE REFERENCE UNITS LAB GLUP(LOINC) 74 - 99 mg/dL High 163 GLUCOSE-POCT Performed By: #### GLUPO #### [facility] [address] [place] [address] DAILY PROGRESS Observed: 03/27/2018 Status: COMPLETED Source: [facility] NOTE-PULMONOLOGY 7:43 PM HOSPITALS REPOSITORY Service: Pulmonology Subjective Data: DIPESH BERMUDEZ is a 67 year old Male who is Hospital Day # 46 and POD #44 for left retrosigmoid craniotomy for tumor resection. I want to go sit in the living room, remains confused to place, time, and person. Overnight Events: Acute events in the past 24 hours include Additional Information: Removed CPAP at 0200, stated that he did not want to wear it any more for the night according to the nursing staff CC: confused, delirium ROS: All systems reviewed and unable to accurately assess for negative or positive complaints due to confusion Objective Data: Objective Information: ---- Intake and Output ----- Mn/Dy/Year TimeIntakeOutputNet Mar 27, 2018 2:00 [id number] Mar 27, 2018 6:00 [id number] Mar 26, 2018 10:00 [id number] The Intake and Output Totals for the last 24 hours are: IntakeOutputNet [id number] Physical Exam: Constitutional: Confused to time, place, oriented to person, stable Eyes: PERRL ENMT: mucous membranes slightly dry, no apparent injury, no lesions seen Head/Neck: has small healed incision in posterior part of head on the left side Respiratory/Thorax: Breath sounds vesicular with decreased sounds on the left anterior lobe Cardiovascular: RRR, S1 S2, bus monitor showing sinus rhythm with first degree AV block, HR at 94 Gastrointestinal: ABD soft to touch, ND, + bowel sounds, PEG tube in place Genitourinary: incontinent of stool and urine Musculoskeletal: right leg 1/5 strength, moves left leg, 3/5 strength of upper extremities Extremities: trace edema to lower legs Neurological: face deviation to right side Skin: Warm and dry to touch Medication: Medications: ANTI-INFECTIVES: 1. Nystatin Oral Liquid: [id number] unit(s) Oral Every 6 Hours 2. levoFLOXacin 750 mg IVPB/ Premix 150 mL: 150 mL IntraVenous Piggyback Every 24 Hours CARDIOVASCULAR AGENTS: 1. Silodosin (NON - Formulary): 8 mg NasoGastric Tube Daily CENTRAL NERVOUS SYSTEM AGENTS: 1. Acetaminophen: 650 mg Oral Every 6 Hours PRN 2. Valproic Acid (Depakene) Oral Liquid: 250 mg PEG Tube Every 12 Hours 3. Ondansetron Injectable: 4 mg IntraVenous Push Every 6 Hours PRN COAGULATION MODIFIERS: 1. Enoxaparin SubCutaneous: 40 mg SubCutaneous Every 24 Hours 2. Heparin Flush 10 unit/ mL PF Injectable: 5 mL IntraVenous Flush Every 12 Hours PRN 3. Heparin Flush 10 unit/ mL PF Injectable PRN: 5 mL IntraVenous Flush According to Flush Policy PRN 4. Heparin Flush 10 unit/ mL PF Injectable PRN: 5 mL IntraVenous Flush According to Flush Policy PRN GASTROINTESTINAL AGENTS: 1. Bisacodyl Rectal: 10 mg Rectal Daily PRN 2. Docusate 50 mg - Senna 8.6 m tablet(s) Oral 2 Times a Day 3. Polyethylene Glycol: 17 gram(s) Oral Daily PRN 4. Simethicone Oral Liquid Drops: 80 mg Oral 4 Times a Day After Meals 5. Esomeprazole Oral Packet: 40 mg PEG Tube 2 Times a Day METABOLIC AGENTS: 1. Insulin Glargine (Lantus) Injectable: 30 unit(s) SubCutaneous Every 24 Hours 2. Insulin Lispro Mild Corrective Scale: unit(s) SubCutaneous Every 4 Hours 3. Atorvastatin: 40 mg Oral Daily 4. Dextrose 50% in Water Injectable: 25 gram(s) IntraVenous Push Every 15 Minutes PRN 5. Glucagon Injectable: 1 mg IntraMuscular Every 15 Minutes PRN MISCELLANEOUS AGENTS: 1. Nicotine 7 mg/ 24 hour TransDermal: 1 patch TransDermal Every 24 Hours NUTRITIONAL PRODUCTS: 1. Sodium Chloride 0.9% Injectable Flush: 10 mL IntraVenous Flush Every 12 Hours 2. Sodium Chloride 0.9% Injectable Flush: 10 mL IntraVenous Flush Every 12 Hours 3. Sodium Chloride 0.9% Injectable Flush PRN: 10 mL IntraVenous Flush According to Flush Policy PRN 4. Sodium Chloride 0.9% Injectable Flush PRN: 20 mL IntraVenous Flush According to Flush Policy PRN RESPIRATORY AGENTS: 1. Albuterol 2.5 mg/ 3 mL Nebulizer Soln: 3 mL Inhalation Every 6 Hours 2. Sodium Chloride 3% Nebulizer Soln: 3 mL Inhalation Every 6 Hours 3. Budesonide 0.5 mg/ 2 mL Nebulizer Soln: 2 mL Inhalation Every 12 Hours TOPICAL AGENTS: 1. Petrolatum Topical: 1 application(s) Topical 2 Times a Day 2. Saliva Substitute: 5 mL Oral 4 Times a Day Recent Lab Results: Results: I have reviewed these laboratory results: Glucose_POCT Trending View [id number] 16:47:00 27-Mar-2018 11:53:00 27-Mar-2018 07:34:00 [id number] H 164 H 142 H Complete Blood Count + Differential 27-Mar-2018 06:17:00 ResultValue White Blood Cell Count 17.7 H Nucleated Erythrocyte Count 0.0 Red Blood Cell Count 3.77 L HGB 11.1 L HCT 38.0 L MCV 101 H MCHC 29.2 L PLT 171 RDW-CV 17.8 H Neutrophil % 79.4 Immature Granulocytes % 1.5 Lymphocyte % 10.1 Monocyte % 6.3 Eosinophil % 1.9 Basophil % 0.8 Neutrophil Count 14.05 H Lymphocyte Count 1.79 Monocyte Count 1.12 H Eosinophil Count 0.34 Basophil Count 0.14 H Renal Function Panel 27-Mar-2018 06:17:00 ResultValue Glucose, Serum 133 H NA 133 L K 5.0 CL 97 L Bicarbonate, Serum 28 Anion Gap, Serum 13 BUN 38 H CREAT 0.59 GFR-Non >60 GFR- >60 Calcium, Serum 9.4 Phosphorus, Serum 3.0 ALB 2.6 L Magnesium, Serum 27-Mar-2018 06:17:00 ResultValue Magnesium, Serum 2.33 Radiology Results: Results: I have reviewed this radiology result: Impression: 1. Interval development of left basilar and retrocardiac large area of consolidation correlate with concern for pneumonia. 2. Probable small pleural effusion. 3. Right lung is clear. Xray Chest 1 View [Mar 27 2018 12:02PM] Assessment and Plan: Assessment: Patient is 67 year old male patient who is s/p meningioma resection on 02/11 c/b L brainstem infarction, dysphagia and dysarthria, Right sided weakness, hypoxemic respiratory failure (treated for MRSA), AMS, now undergoing treatment for PSAG. Transfer to SDU on 03/22, pt arrived to the SDU drowsy with AMS, with periods of desaturation on room air, placed on CPAP, not following command, grimacing to painful stimulation at the time, Code BAT called, s/p head CT scan w/o acute findings. Family asked to transfer pt back to MICU and MRI brain (MRI unchanged from prior exam). No need for transfer back to MICU at this time Neuro: s/p meningioma resection on 02/11 c/b L brainstem infarction, dysphagia and dysarthria, right sided weakness. c/b AMS, difficult to arouse in the SDU on 03/22 s/p Head CT scan w/o acute findings. Patient at high risk for metabolic encephalopathy Pt with prolong hospitalization, undergoing infection treatment, polypharmacy. - continue Valproid Acid - holding trazodone, risperidone, melatonin - PT/OT/MANAGER PROCESS IMPROVEMENT following - s/p head CT scan 03/22 (w/o no new acute findings per neuro stroke) - MRI brain ordered (no acute findings compared prior MRI 03/07) - will continue to provide supportive care Pulm: Hx of COPD. Acute hypoxia respiratory failure. Treated for MRSA PNA. Currently, undergoing treatment for PSAG pneumonia. Pt with AMS upon arrival to SDU. will continue nocturnal CPAP at night, auto pressor 4- 20 with Oxygen at 2 liters, however, patient requested the CPAP to be removed at 0200 last night - will continue Levaquin for PSA coverage - continue budesonide, albuterol prn - CXR done today showing increased infiltrate on the left lower lobe, plan to repeat CXR in am - will continue auto CPAP and RA during the day (while off CPAP) - mechanical vest, IPV, bed percussion ID: Continues with Leukocytosis, however remains afebrile. Currently with PSA in the sputum (03/21). - sputum cx 02/24 grew MRSA - Treated for MRSA PNA (Vanco 02/17-02/22, 02/25-03/04) - Abx: Kvng (02/24-02/28) - cont Levofloxacin for PSA coverage (start 03/21) - plan to stop Levaquin on 03/31 (can transition to PEG route for DC) - reconsulted ID today due to persistent leukocytosis in the setting of changes in the CXR from today - sputum cultured ordered Cardiac: hx of HTN, remains HD stable - blood pressure sys 120 to 136 for 24 hours - will continue to hold home amlodipine, HCTZ and Lisinopril for now - continue statin as ordered FEN/GI: Severe dysphagia 2/2 L brainstem infarction.s/p Peg tube 02/21. Tolerating tube feeds - continue bowel regimen - s/p EGD 02/21 showing LA grade D esophagitis - continue PPI twice a day x 3 months - Replete electrolytes as needed - daily RFP Renal: no issues Endo: IDDM - Accu check 133 to 159 for last 24 hours - continue Lantus 30 units (40 units home dose) - mild corrective insulin scale as needed - hypoglycemia protocol ordered as needed - holding home 70/30 insulin PPX: cont lovenox and scds DNAR/DNI lines: midline Likely DC to SNF early next week. DIspo: Keep patient in the SDU Assessment and plan of care d/w Dr. Lomax, SDU attending Signature/Cosignature/Attestation: Attending Only - Shared Visit with Advanced Practice ProviderThis is a shared visit. I have reviewed the Advanced Practice Providers encounter note, approve the Advanced Practice Providers documentation, and provide the following additional information from my personal encounter. Comments/ Additional Findings I have seen and evaluated the patient. I personally obtained the gonzalez and critical portions of the history and physical exam or was physically present for gonzalez and critical portions performed by the nurse practitioner. I reviewed the HANDLE SANDER OPERATOR's documentation and discussed the patient with the HANDLE SANDER OPERATOR, and agree with above transcribed documentation. Treating for pseudomonas pneumonia, hypoxemia improved, supporting encephalopathy and delirium, CXR showing worsening of LL aeration- will increase airway clearance and repeat CXR tomorrow to see if atelectasis, ID called back to discuss antibiotic coverage, rest as above. Continue in SDU for close observation. Electronic Signatures: Norm Carrillo ([employer] OPERATOR-GROUP MANAGER) (Signed 27-Mar-2018 20:41) Authored: Service, Subjective Data, Objective Data, Assessment and Plan, Signature/Cosignature/Attestation Komal Lomax) (Signed 27-Mar-2018 23:03) Authored: Signature/Cosignature/Attestation Co-Signer: Service, Subjective Data, Objective Data, Assessment and Plan, Signature/Cosignature/Attestation Last Updated: 27-Mar-2018 23:03 by Komal Lomax) GLUCOSE-POCT Collected: 03/27/2018 Status: F Source: [facility] 4:47 PM [facility] REPOSITORY TYPE CODE TESTS RESULT OUT OF RANGE REFERENCE UNITS LAB GLUP(LOINC) 74 - 99 mg/dL High 144 GLUCOSE-POCT Performed By: #### GLUPO #### [facility] [address] [place] [address] GLUCOSE-POCT Collected: 03/27/2018 Status: F Source: [facility] 11:53 AM [facility] REPOSITORY TYPE CODE TESTS RESULT OUT OF RANGE REFERENCE UNITS LAB GLUP(LOINC) 74 - 99 mg/dL High 164 GLUCOSE-POCT Performed By: #### GLUPO #### [facility] [address] [place] [address] TH CHEST 1 VIEW Observed: 03/27/2018 Status: F Source: [facility] 11:44 AM [facility] REPOSITORY Patient Name: DIPESH BERMUDEZ STUDY: TH CHEST 1 VIEW; 03/27/2018 11:44 am INDICATION: Signs/Symptoms: infection. COMPARISON: Chest radiograph from 03/22/2018 ACCESSION NUMBER(S): [id number] ORDERING CLINICIAN: NORM CARRILLO FINDINGS: The cardiomediastinal silhouette is grossly stable from prior. Mild aortic knob calcifications. Slightly low lung volumes with bronchovascular crowding no lowell pulmonary edema. Interval development of a large airspace opacity along the left lung base and retrocardiac location. Suspected small left pleural effusion. Right lung is clear. No pneumothorax. No acute osseous abnormality. IMPRESSION: 1. Interval development of left basilar and retrocardiac large area of consolidation correlate with concern for pneumonia. 2. Probable small pleural effusion. 3. Right lung is clear. Electronically signed by: LEXI LI MD GLUCOSE-POCT Collected: 03/27/2018 Status: F Source: [facility] 7:34 AM [facility] REPOSITORY TYPE CODE TESTS RESULT OUT OF RANGE REFERENCE UNITS LAB GLUP(LOINC) 74 - 99 mg/dL High 142 GLUCOSE-POCT Performed By: #### GLUPO #### [facility] [address] [place] [address] CBC AND DIFFERENTIAL Collected: 03/27/2018 Status: F Source: [facility] 6:17 AM [facility] REPOSITORY TYPE CODE TESTS RESULT OUT OF REFERENCE UNITS RANGE LAB WBCR(LOINC 4.4 - 11.3 x10E9/L ) WBC High 17.7 LAB NRBC(LOINC 0.0-0.0 /100 WBC ) NUCLEATED RBC 0.0 LAB RBCCT(LOIN 4.50 - 5.90 x10E12/L C) Low RBC 3.77 LAB HGB(LOINC) 13.5 - 17.5 g/dL Low HGB 11.1 LAB HCT(LOINC) 41.0 - 52.0 % Low HCT 38.0 LAB MCV(LOINC) 80 - 100 fL MCV High 101 LAB MCHC2(LOIN 32.0 - 36.0 g/dL C) Low MCHC 29.2 LAB PLTCT(LOIN 150 - 450 x10E9/L C) PLT 171 LAB RDWCV(LOIN 11.5 - 14.5 % C) RDW-CV High 17.8 LAB NEUT(LOINC 40.0 - 80.0 % ) % NEUTROPHIL 79.4 LAB IG(LOINC) 0.0 - 0.9 % % AUTOMATED 1.5 IMMATURE GRAN Result Comment: Percent differential counts (%) should be interpreted in the context of the absolute cell counts (cells/L). LAB LYMPH(LOINC) 13.0 - % 44.0 % LYMPHOCYTE 10.1 LAB MONO(LOINC) 2.0 - 10.0 % % MONOCYTE 6.3 LAB EOS(LOINC) 0.0 - 6.0 % % EOSINOPHIL 1.9 LAB BASO(LOINC) 0.0 - 2.0 % % BASOPHIL 0.8 LAB #NEUT(LOINC) 1.20 - x10E9/L 7.70 NEUTROPHIL High 14.05 LAB #LYMP(LOINC) 1.20 - x10E9/L 4.80 LYMPHOCYTE 1.79 LAB #MONO(LOINC) 0.10 - x10E9/L 1.00 MONOCYTE High 1.12 LAB #EOS(LOINC) 0.00 - x10E9/L 0.70 EOSINOPHIL 0.34 LAB #BASO(LOINC) 0.00 - x10E9/L 0.10 BASOPHIL High 0.14 Performed By: #### CBCDF #### [facility] [address] [place] [address] MAGNESIUM Collected: 03/27/2018 Status: F Source: [place] [id number] [place] [address] REPOSITORY TYPE CODE TESTS RESULT OUT OF REFERENCE UNITS RANGE LAB MG(LOINC) 1.60 - 2.40 mg/dL MAGNESIUM 2.33 Performed By: #### MG #### [facility] [address] [place] [id number] RENAL FUNCTION PANEL Collected: 03/27/2018 Status: F Source: [facility] [address] [place] [address] REPOSITORY TYPE CODE TESTS RESULT OUT OF REFERENCE UNITS RANGE LAB GLU(LOINC) 74 - 99 mg/dL High GLUCOSE 133 LAB SOD(LOINC) 136 - 145 mmol/L Low SODIUM 133 LAB K(LOINC) 3.5 - 5.3 mmol/L POTASSIUM 5.0 Result Comment: MILD HEMOLYSIS DETECTED. The result may be falsely elevated due to hemolysis or other interferents. Clinical correlation is recommended. Repeat testing may be considered. LAB CHLOR(LOINC) 98 - 107 mmol/L CHLORIDE Low 97 LAB BIC(LOINC) 21 - 32 mmol/L BICARBONATE 28 LAB ANGAP(LOINC) 10 - 20 mmol/L ANION GAP 13 LAB UREA(LOINC) 6 - 23 mg/dL UREA High NITROGEN 38 LAB CREA(LOINC) 0.50 - mg/dL 1.30 CREATININE 0.59 LAB GFRFN(LOINC) >60 mL/min/1.73m 2 GFR-NON AM. >60 LAB GFRAA(LOINC) >60 mL/min/1.73m 2 GFR- AM. >60 Result Comment: CALCULATIONS OF ESTIMATED GFR ARE PERFORMED USING THE MDRD STUDY EQUATION FOR THE IDMS-TRACEABLE CREATININE METHODS. CLIN CHEM 2007;53:766-72 LAB CA(LOINC) 8.6 - 10.6 mg/dL CALCIUM 9.4 LAB PHOS(LOINC) 2.5 - 4.9 mg/dL PHOSPHORUS 3.0 Result Comment: The performance characteristics of phosphorus testing in heparinized plasma have been validated by the individual laboratory site where testing is performed. Testing on heparinized plasma is not approved by the FDA; however, such approval is not necessary. LAB ALB(LOINC) 3.4 - 5.0 g/dL Low ALBUMIN 2.6 Performed By: #### RENAL #### [facility] [address] [place] [address] GLUCOSE-POCT Collected: 03/27/2018 Status: F Source: [facility] 5:12 AM [facility] REPOSITORY TYPE CODE TESTS RESULT OUT OF RANGE REFERENCE UNITS LAB GLUP(LOINC) 74 - 99 mg/dL High 142 GLUCOSE-POCT Performed By: #### GLUPO #### [facility] [address] [place] [address] GLUCOSE-POCT Collected: 03/27/2018 Status: F Source: [facility] 12:33 AM [facility] REPOSITORY TYPE CODE TESTS RESULT OUT OF RANGE REFERENCE UNITS LAB GLUP(LOINC) 74 - 99 mg/dL High 159 GLUCOSE-POCT Performed By: #### GLUPO #### [facility] [address] [place] [address] GLUCOSE-POCT Collected: 03/26/2018 Status: F Source: [facility] 8:43 PM [facility] REPOSITORY TYPE CODE TESTS RESULT OUT OF RANGE REFERENCE UNITS LAB GLUP(LOINC) 74 - 99 mg/dL High 160 GLUCOSE-POCT Performed By: #### GLUPO #### [facility] [address] [place] [address] GLUCOSE-POCT Collected: 03/26/2018 Status: F Source: [facility] 8:14 PM [facility] REPOSITORY TYPE CODE TESTS RESULT OUT OF RANGE REFERENCE UNITS LAB GLUP(LOINC) 74 - 99 mg/dL High 170 GLUCOSE-POCT Performed By: #### GLUPO #### [facility] [address] [place] [address] DAILY PROGRESS Observed: 03/26/2018 Status: COMPLETED Source: [facility] NOTE-PULMONOLOGY 7:07 PM [facility] REPOSITORY Service: Pulmonology Subjective Data: DIPESH BERMUDEZ is a 67 year old Male who is Hospital Day # 45 and POD #43 for left retrosigmoid craniotomy for tumor resection. Following commands, disoriented to place and time, knows the president and the season is fall, stable. Additional Information: CPAP at night All other systems have been reviewed, but patient unable to provide complaint or full ROS due to encephalopathy. Objective Data: Objective Information: ---- Intake and Output ----- Mn/Dy/Year TimeIntakeOutputNet Mar 26, 2018 2:00 [id number] Mar 26, 2018 6:00 [id number] Mar 25, 2018 10:00 [id number] The Intake and Output Totals for the last 24 hours are: IntakeOutputNet [id number] Physical Exam: Constitutional: Confused to place and time, needs reorienting, follows commands, has slurred speech Eyes: PERRL ENMT: mucous membranes moist Respiratory/Thorax: Breath sounds decreased in anterior lobes Cardiovascular: RRR, S1 S2, bus monitor showing sinus rhythm with HR 98 Gastrointestinal: ABD soft to touch, + bowel sounds, PEG in place with tube feeding Genitourinary: incontinent of urine and stool Musculoskeletal: 3/5 strength of upper extremities, 1/5 strength of lower extremities Extremities: has trace edema to lower legs bilaterally Skin: Warm and dry to touch Medication: Medications: ANTI-INFECTIVES: 1. Nystatin Oral Liquid: [id number] unit(s) Oral Every 6 Hours 2. levoFLOXacin 750 mg IVPB/ Premix 150 mL: 150 mL IntraVenous Piggyback Every 24 Hours CARDIOVASCULAR AGENTS: 1. Silodosin (NON - Formulary): 8 mg NasoGastric Tube Daily CENTRAL NERVOUS SYSTEM AGENTS: 1. Acetaminophen: 650 mg Oral Every 6 Hours PRN 2. Valproic Acid (Depakene) Oral Liquid: 250 mg PEG Tube Every 12 Hours 3. Ondansetron Injectable: 4 mg IntraVenous Push Every 6 Hours PRN COAGULATION MODIFIERS: 1. Enoxaparin SubCutaneous: 40 mg SubCutaneous Every 24 Hours 2. Heparin Flush 10 unit/ mL PF Injectable: 5 mL IntraVenous Flush Every 12 Hours PRN 3. Heparin Flush 10 unit/ mL PF Injectable PRN: 5 mL IntraVenous Flush According to Flush Policy PRN 4. Heparin Flush 10 unit/ mL PF Injectable PRN: 5 mL IntraVenous Flush According to Flush Policy PRN GASTROINTESTINAL AGENTS: 1. Bisacodyl Rectal: 10 mg Rectal Daily PRN 2. Docusate 50 mg - Senna 8.6 m tablet(s) Oral 2 Times a Day 3. Polyethylene Glycol: 17 gram(s) Oral Daily PRN 4. Simethicone Oral Liquid Drops: 80 mg Oral 4 Times a Day After Meals 5. Esomeprazole Oral Packet: 40 mg PEG Tube 2 Times a Day METABOLIC AGENTS: 1. Insulin Glargine (Lantus) Injectable: 30 unit(s) SubCutaneous Every 24 Hours 2. Insulin Lispro Mild Corrective Scale: unit(s) SubCutaneous Every 4 Hours 3. Atorvastatin: 40 mg Oral Daily 4. Dextrose 50% in Water Injectable: 25 gram(s) IntraVenous Push Every 15 Minutes PRN 5. Glucagon Injectable: 1 mg IntraMuscular Every 15 Minutes PRN MISCELLANEOUS AGENTS: 1. Nicotine 7 mg/ 24 hour TransDermal: 1 patch TransDermal Every 24 Hours NUTRITIONAL PRODUCTS: 1. Sodium Chloride 0.9% Injectable Flush: 10 mL IntraVenous Flush Every 12 Hours 2. Sodium Chloride 0.9% Injectable Flush: 10 mL IntraVenous Flush Every 12 Hours 3. Sodium Chloride 0.9% Injectable Flush PRN: 10 mL IntraVenous Flush According to Flush Policy PRN 4. Sodium Chloride 0.9% Injectable Flush PRN: 20 mL IntraVenous Flush According to Flush Policy PRN RESPIRATORY AGENTS: 1. Albuterol 2.5 mg/ 3 mL Nebulizer Soln: 3 mL Inhalation Every 6 Hours 2. Sodium Chloride 3% Nebulizer Soln: 3 mL Inhalation Every 6 Hours 3. Budesonide 0.5 mg/ 2 mL Nebulizer Soln: 2 mL Inhalation Every 12 Hours TOPICAL AGENTS: 1. Petrolatum Topical: 1 application(s) Topical 2 Times a Day 2. Saliva Substitute: 5 mL Oral 4 Times a Day Radiology Results: Results: I have reviewed this radiology result: MRI Brain without Contrast [Mar 23 2018 3:00PM] CT Head without Contrast [Mar 22 2018 4:37PM] Assessment and Plan: Assessment: Patient is 67 year old male patient who is s/p meningioma resection on 02/11 c/b L brainstem infarction, dysphagia and dysarthria, Right sided weakness, hypoxemic respiratory failure (treated for MRSA), AMS, now undergoing treatment for PSAG. Transfer to SDU on 03/22, pt arrived to the SDU drowsy with AMS, with periods of desaturation on room air, placed on CPAP, not following command, grimacing to painful stimulation at the time, Code BAT called, s/p head CT scan w/o acute findings. Family asked to transfer pt back to MICU and MRI brain (MRI unchanged from prior exam). No need for transfer back to MICU at this time Neuro: s/p meningioma resection on 02/11 c/b L brainstem infarction, dysphagia and dysarthria, right sided weakness. c/b AMS, difficult to arouse in the SDU on 03/22 s/p Head CT scan w/o acute findings. Patient at high risk for metabolic encephalopathy Pt with prolong hospitalization, undergoing infection treatment, polypharmacy. - continue Valproid Acid - holding trazodone, risperidone, melatonin - PT/OT/MANAGER PROCESS IMPROVEMENT following - s/p head CT scan 03/22 (w/o no new acute findings per neuro stroke) - MRI brain order (no acute findings compared prior MRI 03/07) - will continue to provide supportive care Pulm: Hx of COPD. Acute hypoxia respiratory failure. Treated for MRSA PNA. Now undergoing treatment for PSAG pneumonia. Pt with AMS upon arrival to SDU. On cpap overnight, and now on RA, will continue nocturnal CPAP at night, auto pressor 4-20 with Oxygen at 2 liters - continue Levaquin for PSA coverage - continue budesonide, albuterol prn - 03/22 chest xray (improvement of bilateral atelectasis) - will continue auto CPAP and NC 2-3L during the day (while off CPAP) - mechanical vest, IPV, bed percussion ID: Leukocytosis, remains afebrile. Now PSA in the sputum (03/21). - sputum cx 02/24 grew MRSA - Treated for MRSA PNA (Vanco 02/17-02/22, 02/25-03/04) - Abx: Kvng (02/24-02/28) - cont Levofloxacin for PSA coverage (start 03/21) - plan to stop Levaquin on 03/31 (can transition to PEG route for DC) Cardiac: hx of HTN, remains HD stable - blood pressure 99/87 to 100/61 for last 24 hours - holding home amlodipine, HCTZ and Lisinopril - continue Statin as ordered FEN/GI: Severe dysphagia 2/2 L brainstem infarction.s/p Peg tube 02/21. Tolerating tube feeds - continue bowel regimen - s/p EGD 02/21 showing LA grade D esophagitis - cont PPI twice a day x 3 months - Replete electrolytes as needed - daily RFP Renal: no issues Endo: IDDM - continue Lantus 30 units (40 units home dose) - mild corrective insulin scale as needed - hypoglycemia protocol ordered as needed - holding home 70/30 insulin PPX: cont lovenox and scds DNAR/DNI lines: midline Likely DC to SNF early next week. DIspo: Keep patient in the SDU Assessment and plan of care d/w Dr. Lomax, SDU attending Signature/Cosignature/Attestation: Attending Only - Shared Visit with Advanced Practice ProviderThis is a shared visit. I have reviewed the Advanced Practice Providers encounter note, approve the Advanced Practice Providers documentation, and provide the following additional information from my personal encounter. Comments/ Additional Findings I have seen and evaluated the patient. I personally obtained the gonzalez and critical portions of the history and physical exam or was physically present for gonzalez and critical portions performed by the nurse practitioner. I reviewed the HANDLE SANDER OPERATOR's documentation and discussed the patient with the HANDLE SANDER OPERATOR, and agree with above transcribed documentation. On exam lungs diminished anteriorly, no wheeze, patient awake but unable to answer questions. Treating for pneumonia, hypoxemia, rest as above. Electronic Signatures: Norm Carrillo ([employer] OPERATOR-GROUP MANAGER) (Signed 26-Mar-2018 19:29) Authored: Service, Subjective Data, Objective Data, Assessment and Plan, Signature/Cosignature/Attestation Komal Lomax) (Signed 27-Mar-2018 22:59) Authored: Subjective Data, Signature/Cosignature/Attestation Co-Signer: Subjective Data, Objective Data, Assessment and Plan, Signature/Cosignature/Attestation Last Updated: 27-Mar-2018 22:59 by Komal Lomax) CBC Collected: 03/26/2018 Status: F Source: [facility] 6:54 PM [facility] REPOSITORY TYPE CODE TESTS RESULT OUT OF REFERENCE UNITS RANGE LAB WBCR(LOINC 4.4 - 11.3 x10E9/L ) WBC High 22.0 LAB NRBC(LOINC 0.0-0.0 /100 WBC ) NUCLEATED RBC 0.0 LAB RBCCT(LOIN 4.50 - 5.90 x10E12/L C) Low RBC 3.89 LAB HGB(LOINC) 13.5 - 17.5 g/dL Low HGB 11.8 LAB HCT(LOINC) 41.0 - 52.0 % Low HCT 37.4 LAB MCV(LOINC) 80 - 100 fL MCV 96 LAB MCHC2(LOIN 32.0 - 36.0 g/dL C) Low MCHC 31.6 LAB PLTCT(LOIN 150 - 450 x10E9/L C) PLT 210 LAB RDWCV(LOIN 11.5 - 14.5 % C) High RDW-CV 18.2 Performed By: #### CBC #### [facility] [address] [place] [address] GLUCOSE-POCT Collected: 03/26/2018 Status: F Source: [facility] 4:00 PM [facility] REPOSITORY TYPE CODE TESTS RESULT OUT OF RANGE REFERENCE UNITS LAB GLUP(LOINC) 74 - 99 mg/dL High 152 GLUCOSE-POCT Performed By: #### GLUPO #### [facility] [address] [place] [address] GLUCOSE-POCT Collected: 03/26/2018 Status: F Source: [facility] 4:24 AM [facility] REPOSITORY TYPE CODE TESTS RESULT OUT OF RANGE REFERENCE UNITS LAB GLUP(LOINC) 74 - 99 mg/dL High 178 GLUCOSE-POCT Performed By: #### GLUPO #### [facility] [address] [place] [address] CBC Collected: 03/26/2018 Status: CANCELLED Source: [facility] 4:15 [facility]ITALS REPOSITORY Order Comment: TEST CBC WAS CANCELLED, 03/26/2018 04:15 ?Cancel Reason: Discontinued. TYPE CODE TESTS RESULT OUT OF REFERENCE UNITS RANGE LAB WBCR(LOINC ) WBC Canceled LAB NRBC(LOINC ) NUCLEATED RBC Canceled LAB RBCCT(LOIN C) RBC Canceled LAB HGB(LOINC) HGB Canceled LAB HCT(LOINC) HCT Canceled LAB MCV(LOINC) MCV Canceled LAB MCHC2(LOIN C) MCHC Canceled LAB PLTCT(LOIN C) PLT Canceled LAB RDWCV(LOIN C) RDW-CV Canceled Performed By: #### CBC #### [facility] [address] [place] [address] MAGNESIUM Collected: 03/26/2018 Status: CANCELLED Source: [facility] 4:15 [facility] REPOSITORY Order Comment: TEST MAGNESIUM WAS CANCELLED, 03/26/2018 04:15 ?Cancel Reason: Discontinued. TYPE CODE TESTS RESULT OUT OF REFERENCE UNITS RANGE LAB MG(LOINC) MAGNESIUM Canceled Performed By: #### MG #### [facility] [address] [place] [address] RENAL FUNCTION PANEL Collected: 03/26/2018 Status: CANCELLED Source: [facility] 4:15 [facility] REPOSITORY Order Comment: TEST RENAL FUNCTION PANEL WAS CANCELLED, 03/26/2018 04:15 ?Cancel Reason: Discontinued. TYPE CODE TESTS RESULT OUT OF REFERENCE UNITS RANGE LAB GLU(LOINC) GLUCOSE Canceled LAB SOD(LOINC) SODIUM Canceled LAB K(LOINC) POTASSIUM Canceled LAB CHLOR(LOIN C) CHLORIDE Canceled LAB BIC(LOINC) BICARBONATE Canceled LAB ANGAP(LOIN C) ANION GAP Canceled LAB UREA(LOINC ) UREA NITROGEN Canceled LAB CREA(LOINC ) CREATININE Canceled LAB GFRFN(LOIN C) GFR-NON AM. Canceled LAB GFRAA(LOIN C) GFR- AM. Canceled Result Comment: CALCULATIONS OF ESTIMATED GFR ARE PERFORMED USING THE MDRD STUDY EQUATION FOR THE IDMS-TRACEABLE CREATININE METHODS. CLIN CHEM 2007;53:766-72 LAB CA(LOINC) CALCIUM Canceled LAB PHOS(LOINC) PHOSPHORUS Canceled Result Comment: The performance characteristics of phosphorus testing in heparinized plasma have been validated by the individual laboratory site where testing is performed. Testing on heparinized plasma is not approved by the FDA; however, such approval is not necessary. LAB ALB(LOINC) Canceled ALBUMIN Performed By: #### RENAL #### [facility] [address] [place] [address] TROPONIN I Collected: 03/26/2018 Status: CANCELLED Source: [facility] 4:15 AM [facility] REPOSITORY Order Comment: TEST TROPONIN I WAS CANCELLED, 03/26/2018 04:15 ?Cancel Reason: Discontinued. TYPE CODE TESTS RESULT OUT OF REFERENCE UNITS RANGE LAB TROP2(LOIN C) TROPONIN I Canceled Result Comment: LESS THAN 0.04 NG/ML: NEGATIVE REPEAT TESTING IN FOUR TO SIX HOURS IF CLINICALLY INDICATED. 0.04 - 0.5 NG/ML: CONSISTENT WITH POSSIBLE CARDIAC DAMAGE AND POSSIBLE INCREASED CLINICAL RISK. SERIAL MEASUREMENTS MAY HELP ASSESS EXTENT OF MYOCARDIAL DAMAGE. >0.5 NG/ML: CONSISTENT WITH CARDIAC DAMAGE, INCREASED CLINICAL RISK AND MYOCARDIAL INFARCTION. SERIAL MEASUREMENTS MAY HELP ASSESS EXTENT OF MYOCARDIAL DAMAGE. . Note: Troponin I testing is performed using different testing methodology at [facility] than at other [facility]. Direct result comparisons should only be made within the same method. . Patients receiving more than 5 mg/day of biotin may have interference in test results. A sample should be taken no sooner than eight hours after previous dose. Contact [phone] for additional information. Performed By: #### TROP2 #### [facility] [id number] [place] [address] GLUCOSE-POCT Collected: 03/26/2018 Status: F Source: [facility] 12:17 AM [facility] REPOSITORY TYPE CODE TESTS RESULT OUT OF RANGE REFERENCE UNITS LAB GLUP(LOINC) 74 - 99 mg/dL High 178 GLUCOSE-POCT Performed By: #### GLUPO #### [facility] [address] [place] [address] GLUCOSE-POCT Collected: 03/25/2018 Status: F Source: [facility] 4:28 PM [facility] REPOSITORY TYPE CODE TESTS RESULT OUT OF RANGE REFERENCE UNITS LAB GLUP(LOINC) 74 - 99 mg/dL High 166 GLUCOSE-POCT Performed By: #### GLUPO #### [facility] [address] [place] [address] NUTRITION THERAPY-FOLLOW Observed: 03/25/2018 Status: UNK Source: [facility] 12:11 PM [facility] REPOSITORY Assessment Subjective/Objective: Note Type: Follow Up Note Authored by: Registered Dietitian Career Placement Specialist Pager Number: [phone] Nutrition Note: Pt transferred to SDU from MICU for further care. He is being treated for MRSA PNA and resp failure after meningioma resection and subsequent brainstem infarct with dysphagia. Intermittent metabolic encephalopathy. Pt on CPAP at night and nasal canula during the day. Pt remains in with PEG for sole source nutrition. He is on Diabetisource AC@ 80mls/hr. Stooling appears to be less-- would hesitate on changing TF away from a carb-controlled, fiber-rich TF d/t concern for blood sugars going up. Can always do Imodium and/or probiotics to get with stool output. Docusate ordered on 03/21 for unclear reason as pt was having loose stools. He has only been given it once, on 03/22. Objective Information: weight: 87.8kgs-- stable from last RDN note but remains down overall from admit weight of 99.7kgs stool: +BM today, 2 on 03/24 Recent Lab Results: Results: Na+ 132 K+ 4.6 chloride 94 bicarb 30 BUN 39 creatinine 0.69 calcium 9.5 phos 2.4 sugars 199, 167, 170 Current Active Medications/PN: Silodosin (NON - Formulary), Capsule DOSE = 8 mg NasoGastric Tube Daily, 16-Feb-2018 Valproic Acid (Depakene) Oral Liquid, DOSE = 250 mg PEG Tube Every 12 Hours, 23-Feb-2018 Simethicone Oral Liquid Drops, (MYLICON) DOSE = 80 mg Oral 4 Times a Day After Meals, 17-Mar-2018 Insulin Glargine (Lantus) Injectable, DOSE = 30 unit(s) SubCutaneous Every 24 Hours Notes from Pharmacy: HIGH ALERT , 17-Mar-2018 levoFLOXacin 750 mg IVPB/ Premix 150 mL, (LEVAQUIN) Every 24 Hours Recommended Infusion Time: 90 minute(s), 21-Mar-2018 Docusate 50 mg - Senna 8.6 mg, Tablet (SENOKOT S) DOSE = 2 tablet(s) Oral 2 Times a Day, 21-Mar-2018 Nutrition Focused Physical Findings: Other Physical Findings: Skin: stage I butt, L crani site Edema: +1 to +2 edema all over Change in Metabolic Demand: yes Estimated Needs: kcals/day: 2170-3066 gms protein/day: 100+ mL fluid/day: 1 ml/kcal or per MD Nutrition Diagnosis: Diagnosis1 ongoing. Dx: Swallowing difficulties. related to recent craniotomy for tumor resection as evidenced by speech recs for pt to remain NPO with need for PEG placement. Nutrition Interventions: Diet Education: not applicable Provided Nutrition Support Recommendations: TF at goal= 2304kcals, 115grams protein Nutrition Goals: Goals: Nutrition Therapy: tube feed tolerance, Blood Glucose 80-180 mg/dl, maintain stable weight NUTRITION RECOMMENDATIONS: Recommendations: 1) Would consider d/c'ing docusate as it is not being given and pt without constipation issues. 2) If pt needs an alternate feeding regimen for therapy, can trial the following: --> 375mls of Diabetisource AC given 5 times daily. Typically would flush with 60mls of water before and after each feed but will defer to team as pt is hyponatremic. This provides 2250kcals, 112.5grams protein. --> Pt should sit upright-- least at 45 degree angle-- for at least an hour after each bolus. --> Since pt is on CPAP at night, alternate feeding option be would to change feeding regimen to daytime to help prevent aspiration while on CPAP at night. Can do 130mls/hr over 14hrs during the day of Diabetisource AC, from 7a-9p. This provides 2184kcals, 109grams protein. 3) Can consider ordering PRN Imodium for patient if stooling is liquid. 4) Can also try probiotics with patient. Following- -[id number] Nutrition Therapy Recommendations: Nutrition Therapy Recommendations: See RDN note on 03/25 for updated recommendations Dietitian Monitoring and Evaluation Plan: Monitoring and Evaluation Plan: digestive function, Nutrition Support tolerance/adequacy Electronic Signatures: Margarita Awan (JORDYN, LD) (Signed 25-Mar-2018 12:38) Authored: Assessment Subjective/Objective, Nutrition Focused Physical Findings, Estimated Needs, Nutrition Diagnosis, Nutrition Interventions, Nutrition Goals, Nutrition Recommendations, Dietitian Monitoring and Evaluation Plan Last Updated: 25-Mar-2018 12:38 by Margarita Awan (JORDYN, LD) GLUCOSE-POCT Collected: 03/25/2018 Status: F Source: [facility] 11:26 AM [facility] REPOSITORY TYPE CODE TESTS RESULT OUT OF RANGE REFERENCE UNITS LAB GLUP(LOINC) 74 - 99 mg/dL High 168 GLUCOSE-POCT Performed By: #### GLUPO #### [facility] [address] [place] [address] DAILY PROGRESS Observed: 03/25/2018 Status: COMPLETED Source: ID[facility]EL NOTE-PULMONOLOGY 8:18 AM [facility] REPOSITORY Service: Pulmonology Subjective Data: DIPESH BERMUDEZ is a 67 year old Male who is Hospital Day # 44 and POD #42 for left retrosigmoid craniotomy for tumor resection. alert and interacting, minimal verbal response. Objective Data: Objective Information: ---- Intake and Output ----- Mn/Dy/Year TimeIntakeOutputNet Mar 25, 2018 6:00 [id number] Mar 24, 2018 10:00 [id number] Mar 24, 2018 2:00 [id number] The Intake and Output Totals for the last 24 hours are: IntakeOutputNet [id number] T PRBPSpO2 [id number]/7397% Date/Time03/25 6: 6: 6: 6: 6:39 Range(36C - 37.1C ) (75 - 99 ) (16 - 22 ) (80 - 130 )/ (57 - 83 ) (94% - 100% ) As of 24-Mar-2018 20:00:00, patient is on 2 L/min of oxygen via CPAP. Highest temp of 37.1 C was recorded at 03/24 20:00 Pain with Activity reported at 03/24 20:40: 4 Pain at Rest reported at 03/25 7:34: 0 Weights 03/25 2:00: Weight in kg (Weight (kg)) 87.8 03/25 2:00: Weight in lbs ((lbs)) 193.7 Physical Exam: Constitutional: alert, no apparent distress Eyes: anicteric sclera ENMT: mm pink, dry, oral thrush Head/Neck: normocephalic Respiratory/Thorax: clear bilat, diminished Cardiovascular: RRR Gastrointestinal: abdomen soft, nontender, PEG, bowel sounds present Genitourinary: flynn Musculoskeletal: REMY Extremities: no edema Neurological: A/O to self, minimal movement of RUE/RLE Skin: warm, dry Medication: Medications: Continuous Medications No continuous medications are active Scheduled Medications 1. Atorvastatin: 40 mg Oral Daily 2. Budesonide 0.5 mg/ 2 mL Nebulizer Soln: 2 mL Inhalation Every 12 Hours 3. Docusate 50 mg - Senna 8.6 m tablet(s) Oral 2 Times a Day 4. Enoxaparin SubCutaneous: 40 mg SubCutaneous Every 24 Hours 5. Esomeprazole Oral Packet: 40 mg PEG Tube 2 Times a Day 6. Insulin Glargine (Lantus) Injectable: 30 unit(s) SubCutaneous Every 24 Hours 7. Insulin Lispro Mild Corrective Scale: unit(s) SubCutaneous Every 4 Hours 8. levoFLOXacin 750 mg IVPB/ Premix 150 mL: 150 mL IntraVenous Piggyback Every 24 Hours 9. Nicotine 7 mg/ 24 hour TransDermal: 1 patch TransDermal Every 24 Hours 10. Nystatin Oral Liquid: 107290 unit(s) Oral Every 6 Hours 11. Petrolatum Topical: 1 application(s) Topical 2 Times a Day 12. Saliva Substitute: 5 mL Oral 4 Times a Day 13. Silodosin (NON - Formulary): 8 mg NasoGastric Tube Daily 14. Simethicone Oral Liquid Drops: 80 mg Oral 4 Times a Day After Meals 15. Sodium Chloride 0.9% Injectable Flush: 10 mL IntraVenous Flush Every 12 Hours 16. Sodium Chloride 0.9% Injectable Flush: 10 mL IntraVenous Flush Every 12 Hours 17. Sodium Chloride 3% Nebulizer Soln: 3 mL Inhalation Every 6 Hours 18. Valproic Acid (Depakene) Oral Liquid: 250 mg PEG Tube Every 12 Hours PRN Medications 1. Acetaminophen: 650 mg Oral Every 6 Hours 2. Albuterol 2.5 mg/ 3 mL Nebulizer Soln: 3 mL Inhalation Every 2 Hours 3. Bisacodyl Rectal: 10 mg Rectal Daily 4. Dextrose 50% in Water Injectable: 25 gram(s) IntraVenous Push Every 15 Minutes 5. Glucagon Injectable: 1 mg IntraMuscular Every 15 Minutes 6. Heparin Flush 10 unit/ mL PF Injectable: 5 mL IntraVenous Flush Every 12 Hours 7. Heparin Flush 10 unit/ mL PF Injectable PRN: 5 mL IntraVenous Flush According to Flush Policy 8. Heparin Flush 10 unit/ mL PF Injectable PRN: 5 mL IntraVenous Flush According to Flush Policy 9. Ondansetron Injectable: 4 mg IntraVenous Push Every 6 Hours 10. Polyethylene Glycol: 17 gram(s) Oral Daily 11. Sodium Chloride 0.9% Injectable Flush PRN: 10 mL IntraVenous Flush According to Flush Policy 12. Sodium Chloride 0.9% Injectable Flush PRN: 20 mL IntraVenous Flush According to Flush Policy Recent Lab Results: Results: I have reviewed these laboratory results: Glucose_POCT Trending View [id number] 07:36:00 25-Mar-2018 05:09:00 25-Mar-2018 00:14:00 [id number] H 167 H 170 H Complete Blood Count + Differential 25-Mar-2018 05:03:00 ResultValue White Blood Cell Count 19.1 H Nucleated Erythrocyte Count 0.0 Red Blood Cell Count 4.01 L HGB 11.9 L HCT 38.5 L MCV 96 MCHC 30.9 L PLT 229 RDW-CV 18.4 H Neutrophil % 78.3 Immature Granulocytes % 2.3 Lymphocyte % 10.6 Monocyte % 6.4 Eosinophil % 1.7 Basophil % 0.7 Neutrophil Count 15.00 H Lymphocyte Count 2.03 Monocyte Count 1.22 H Eosinophil Count 0.32 Basophil Count 0.13 H Renal Function Panel 25-Mar-2018 05:03:00 ResultValue Glucose, Serum 165 H NA 132 L K 4.6 CL 94 L Bicarbonate, Serum 30 Anion Gap, Serum 13 BUN 39 H CREAT 0.69 GFR-Non >60 GFR- >60 Calcium, Serum 9.5 Phosphorus, Serum 2.4 L ALB 2.9 L Assessment and Plan: Assessment: 67 year old male patient who is s/p meningioma resection on 02/11 c/b L brainstem infarction, dysphagia and dysarthria, Right sided weakness, hypoxemic respiratory failure (treated for MRSA), AMS, now undergoing treatment for PSAG. Transfer to SDU on 03/22, pt arrived to the SDU drowsy with AMS, with periods of desaturation on room air, placed on CPAP, not following command, grimacing to painful stimulation at the time, Code BAT called, s/p head CT scan w/o acute findings. Family asked to transfer pt back to MICU and MRI brain (MRI unchanged from prior exam). NO need for transfer back to MICU at this time. Neuro: s/p meningioma resection on 02/11 c/b L brainstem infarction, dysphagia and dysarthria, right sided weakness. c/b AMS, difficult to arouse in the SDU on 03/22 s/p Head CT scan w/o acute findings. Patient at high risk for metabolic encephalopathy Pt with prolong hospitalization, undergoing infection treatment, polypharmacy. - cont Valproid Acid - holding trazodone, risperidone, melatonin - PT/OT/MANAGER PROCESS IMPROVEMENT following - NSG and Neuro stroke following - s/p head CT scan 03/22 (w/o no new acute findings per neuro stroke) - MRI brain order (no acute findings compared prior MRI 03/07) - will continue to provide supportive care Pulm: Hx of COPD. Acute hypoxia respiratory failure. Treated for MRSA PNA. Now undergoing treatment for PSAG pneumonia. Pt with AMS upon arrival to SDU. On cpap overnight, and now on RA. - cont Levaquin for PSA coverage - cont budesonide, albuterol prn - repeat ABG prn - 03/22 chest xray (improvement of bilateral atelectasis) - will continue auto CPAP and NC 2-3L during the day (while off CPAP) - mechanical vest, IPV, bed percussion ID: Leukocytosis, remains afebrile. Now PSA in the sputum (03/21). - sputum cx 02/24 grew MRSA - Treated for MRSA PNA (Vanco 02/17-02/22, 02/25-03/04) - Abx: Kvng (02/24-02/28) - cont Levofloxacin for PSA coverage (start 03/21) - plan to stop Levaquin on 03/31 (can transition to PEG route for DC) Cardiac: hx of HTN, remains HD stable -holding home amlodipine, HCTZ and Lisinopril -cont Statin FEN/GI: Severe dysphagia 2/2 L brainstem infarction.s/p Peg tube 02/21. Tolerating tube feeds - cont bowel regimen - s/p EGD 02/21 showing LA grade D esophagitis - cont PPI twice a day x 3 months - Replete electrolytes as needed - daily RFP Renal: no issues Endo: IDDM - cont Lantus 30 units (40 units home dose) - SSI q6hrs - holding home 70/30 PPX: cont lovenox and scds DNAR/DNI lines: midline Likely DC to SNF early next week. DIspo: Keep patient in the SDU A and P discussed with Dr Gamino Signature/Cosignature/Attestation: Attending Only - Shared Visit with Advanced Practice ProviderThis is a shared visit. I have reviewed the Advanced Practice Providers encounter note, approve the Advanced Practice Providers documentation, and provide the following additional information from my personal encounter. Comments/ Additional Findings Patient seen and examined by me during team rounds. Ms. Juarez's note reviewed and agree. Patient appears to be at baseline neurologic status. We are trying to place in SNF for rehab. Bayron Gamino MD Electronic Signatures: Cherelle Juarez ([employer] OPERATOR-GROUP MANAGER) (Signed 25-Mar-2018 15:00) Authored: Service, Subjective Data, Objective Data, Assessment and Plan, Signature/Cosignature/Attestation Bayron Gamino) (Signed 25-Mar-2018 19:11) Authored: Signature/Cosignature/Attestation Co-Signer: Assessment and Plan, Signature/Cosignature/Attestation Last Updated: 25-Mar-2018 19:11 by Bayron Gamino) GLUCOSE-POCT Collected: 03/25/2018 Status: F Source: [facility] 7:36 AM [facility] REPOSITORY TYPE CODE TESTS RESULT OUT OF RANGE REFERENCE UNITS LAB GLUP(LOINC) 74 - 99 mg/dL High 199 GLUCOSE-POCT Performed By: #### GLUPO #### [facility] [address] [place] [address] GLUCOSE-POCT Collected: 03/25/2018 Status: F Source: [facility] 5:09 AM [facility] REPOSITORY TYPE CODE TESTS RESULT OUT OF RANGE REFERENCE UNITS LAB GLUP(LOINC) 74 - 99 mg/dL High 167 GLUCOSE-POCT Performed By: #### GLUPO #### [facility] [address] [place] [address] CBC AND DIFFERENTIAL Collected: 03/25/2018 Status: F Source: [facility] 5:03 AM [facility] REPOSITORY TYPE CODE TESTS RESULT OUT OF REFERENCE UNITS RANGE LAB WBCR(LOINC 4.4 - 11.3 x10E9/L ) WBC High 19.1 LAB NRBC(LOINC 0.0-0.0 /100 WBC ) NUCLEATED RBC 0.0 LAB RBCCT(LOIN 4.50 - 5.90 x10E12/L C) Low RBC 4.01 LAB HGB(LOINC) 13.5 - 17.5 g/dL Low HGB 11.9 LAB HCT(LOINC) 41.0 - 52.0 % Low HCT 38.5 LAB MCV(LOINC) 80 - 100 fL MCV 96 LAB MCHC2(LOIN 32.0 - 36.0 g/dL C) Low MCHC 30.9 LAB PLTCT(LOIN 150 - 450 x10E9/L C) PLT 229 LAB RDWCV(LOIN 11.5 - 14.5 % C) RDW-CV High 18.4 LAB NEUT(LOINC 40.0 - 80.0 % ) % NEUTROPHIL 78.3 LAB IG(LOINC) 0.0 - 0.9 % % AUTOMATED 2.3 IMMATURE GRAN Result Comment: Percent differential counts (%) should be interpreted in the context of the absolute cell counts (cells/L). LAB LYMPH(LOINC) 13.0 - % 44.0 % LYMPHOCYTE 10.6 LAB MONO(LOINC) 2.0 - 10.0 % % MONOCYTE 6.4 LAB EOS(LOINC) 0.0 - 6.0 % % EOSINOPHIL 1.7 LAB BASO(LOINC) 0.0 - 2.0 % % BASOPHIL 0.7 LAB #NEUT(LOINC) 1.20 - x10E9/L 7.70 NEUTROPHIL High 15.00 LAB #LYMP(LOINC) 1.20 - x10E9/L 4.80 LYMPHOCYTE 2.03 LAB #MONO(LOINC) 0.10 - x10E9/L 1.00 MONOCYTE High 1.22 LAB #EOS(LOINC) 0.00 - x10E9/L 0.70 EOSINOPHIL 0.32 LAB #BASO(LOINC) 0.00 - x10E9/L 0.10 BASOPHIL High 0.13 Performed By: #### CBCDF #### [facility] [address] [place] [address] RENAL FUNCTION PANEL Collected: 03/25/2018 Status: F Source: [facility] 5:03 AM [facility] REPOSITORY TYPE CODE TESTS RESULT OUT OF REFERENCE UNITS RANGE LAB GLU(LOINC) 74 - 99 mg/dL GLUCOSE High 165 LAB SOD(LOINC) 136 - 145 mmol/L Low SODIUM 132 LAB K(LOINC) 3.5 - 5.3 mmol/L POTASSIUM 4.6 LAB CHLOR(LOIN 98 - 107 mmol/L C) Low CHLORIDE 94 LAB BIC(LOINC) 21 - 32 mmol/L BICARBONATE 30 LAB ANGAP(LOIN 10 - 20 mmol/L C) ANION GAP 13 LAB UREA(LOINC 6 - 23 mg/dL ) UREA High NITROGEN 39 LAB CREA(LOINC 0.50 - 1.30 mg/dL ) CREATININE 0.69 LAB GFRFN(LOIN >60 mL/min/1.7 C) 3m2 GFR-NON AM. >60 LAB GFRAA(LOIN >60 mL/min/1.7 C) 3m2 GFR- AM. >60 Result Comment: CALCULATIONS OF ESTIMATED GFR ARE PERFORMED USING THE MDRD STUDY EQUATION FOR THE IDMS-TRACEABLE CREATININE METHODS. CLIN CHEM 2007;53:766-72 LAB CA(LOINC) 8.6 - 10.6 mg/dL CALCIUM 9.5 LAB PHOS(LOINC) 2.5 - 4.9 mg/dL PHOSPHORUS Low 2.4 Result Comment: The performance characteristics of phosphorus testing in heparinized plasma have been validated by the individual laboratory site where testing is performed. Testing on heparinized plasma is not approved by the FDA; however, such approval is not necessary. LAB ALB(LOINC) 3.4 - 5.0 g/dL Low ALBUMIN 2.9 Performed By: #### RENAL #### [facility] [address] [place] [address] GLUCOSE-POCT Collected: 03/25/2018 Status: F Source: [facility] 12:14 AM [facility] REPOSITORY TYPE CODE TESTS RESULT OUT OF RANGE REFERENCE UNITS LAB GLUP(LOINC) 74 - 99 mg/dL High 170 GLUCOSE-POCT Performed By: #### GLUPO #### [facility] [address] [place] [address] GLUCOSE-POCT Collected: 03/24/2018 Status: F Source: [facility] 7:43 PM [facility] REPOSITORY TYPE CODE TESTS RESULT OUT OF RANGE REFERENCE UNITS LAB GLUP(LOINC) 74 - 99 mg/dL High 151 GLUCOSE-POCT Performed By: #### GLUPO #### [facility] [address] [place] [address] GLUCOSE-POCT Collected: 03/24/2018 Status: F Source: [facility] 3:44 PM [facility] REPOSITORY TYPE CODE TESTS RESULT OUT OF RANGE REFERENCE UNITS LAB GLUP(LOINC) 74 - 99 mg/dL High 137 GLUCOSE-POCT Performed By: #### GLUPO #### [facility] [address] [place] [address] GLUCOSE-POCT Collected: 03/24/2018 Status: F Source: [facility] 11:39 AM [facility] REPOSITORY TYPE CODE TESTS RESULT OUT OF RANGE REFERENCE UNITS LAB GLUP(LOINC) 74 - 99 mg/dL High 183 GLUCOSE-POCT Performed By: #### GLUPO #### [facility] [address] [place] [address] GLUCOSE-POCT Collected: 03/24/2018 Status: F Source: [facility] 8:25 AM [facility] REPOSITORY TYPE CODE TESTS RESULT OUT OF RANGE REFERENCE UNITS LAB GLUP(LOINC) 74 - 99 mg/dL High 190 GLUCOSE-POCT Performed By: #### GLUPO #### [facility] [address] [place] [address] DAILY PROGRESS Observed: 03/24/2018 Status: COMPLETED Source: [facility] NOTE-NEURO - STROKE 8:12 AM [facility] REPOSITORY Service: Neuro - Stroke Subjective Data: DIPESH BERMUDEZ is a 67 year old Male who is Hospital Day # 43 and POD #41 for left retrosigmoid craniotomy for tumor resection. This morning patient is able to say that he is doing ok but that he is confused. Objective Data: Objective Information: ---- Intake and Output ----- Mn/Dy/Year TimeIntakeOutputNet Mar 24, 2018 6:00 [id number] Mar 23, 2018 10:00 [id number] Mar 23, 2018 2:00 [id number] The Intake and Output Totals for the last 24 hours are: IntakeOutputNet [id number] Physical Exam: Neurological: MSE: Alert oriented to name and age, thinks he's at home in [place]. Knows president is Trump. CN: Appears to BTT bilaterally, PER EOMI horizontally rt lower face droop, dysarthria. Motor: NO drift LUE, is at least AG in LLE, he does not wriggle his rt toes, no EAG RUE or RLE. In rt hand he has weak lever operator. Sensory: intact to LT x4 Coord: F2N intact in LUE, untestable in other limbs Medication: Medications: ANTI-INFECTIVES: 1. Nystatin Oral Liquid: 038801 unit(s) Oral Every 6 Hours 2. levoFLOXacin 750 mg IVPB/ Premix 150 mL: 150 mL IntraVenous Piggyback Every 24 Hours CARDIOVASCULAR AGENTS: 1. Silodosin (NON - Formulary): 8 mg NasoGastric Tube Daily CENTRAL NERVOUS SYSTEM AGENTS: 1. Acetaminophen: 650 mg Oral Every 6 Hours PRN 2. Valproic Acid (Depakene) Oral Liquid: 250 mg PEG Tube Every 12 Hours 3. Ondansetron Injectable: 4 mg IntraVenous Push Every 6 Hours PRN COAGULATION MODIFIERS: 1. Enoxaparin SubCutaneous: 40 mg SubCutaneous Every 24 Hours 2. Heparin Flush 10 unit/ mL PF Injectable: 5 mL IntraVenous Flush Every 12 Hours PRN 3. Heparin Flush 10 unit/ mL PF Injectable PRN: 5 mL IntraVenous Flush According to Flush Policy PRN 4. Heparin Flush 10 unit/ mL PF Injectable PRN: 5 mL IntraVenous Flush According to Flush Policy PRN GASTROINTESTINAL AGENTS: 1. Bisacodyl Rectal: 10 mg Rectal Daily PRN 2. Docusate 50 mg - Senna 8.6 m tablet(s) Oral 2 Times a Day 3. Polyethylene Glycol: 17 gram(s) Oral Daily PRN 4. Simethicone Oral Liquid Drops: 80 mg Oral 4 Times a Day After Meals 5. Esomeprazole Oral Packet: 40 mg PEG Tube 2 Times a Day METABOLIC AGENTS: 1. Insulin Glargine (Lantus) Injectable: 30 unit(s) SubCutaneous Every 24 Hours 2. Insulin Lispro Mild Corrective Scale: unit(s) SubCutaneous Every 4 Hours 3. Atorvastatin: 40 mg Oral Daily 4. Dextrose 50% in Water Injectable: 25 gram(s) IntraVenous Push Every 15 Minutes PRN 5. Glucagon Injectable: 1 mg IntraMuscular Every 15 Minutes PRN MISCELLANEOUS AGENTS: 1. Nicotine 7 mg/ 24 hour TransDermal: 1 patch TransDermal Every 24 Hours NUTRITIONAL PRODUCTS: 1. Sodium Chloride 0.9% Injectable Flush: 10 mL IntraVenous Flush Every 12 Hours 2. Sodium Chloride 0.9% Injectable Flush: 10 mL IntraVenous Flush Every 12 Hours 3. Sodium Chloride 0.9% Injectable Flush PRN: 10 mL IntraVenous Flush According to Flush Policy PRN 4. Sodium Chloride 0.9% Injectable Flush PRN: 20 mL IntraVenous Flush According to Flush Policy PRN RESPIRATORY AGENTS: 1. Albuterol 2.5 mg/ 3 mL Nebulizer Soln: 3 mL Inhalation Every 2 Hours PRN 2. Sodium Chloride 3% Nebulizer Soln: 3 mL Inhalation Every 6 Hours 3. Budesonide 0.5 mg/ 2 mL Nebulizer Soln: 2 mL Inhalation Every 12 Hours TOPICAL AGENTS: 1. Petrolatum Topical: 1 application(s) Topical 2 Times a Day 2. Saliva Substitute: 5 mL Oral 4 Times a Day Recent Lab Results: Results: I have reviewed these laboratory results: Complete Blood Count + Differential 24-Mar-2018 03:38:00 ResultValue White Blood Cell Count 15.7 H Nucleated Erythrocyte Count 0.0 Red Blood Cell Count 3.89 L HGB 11.7 L HCT 36.7 L MCV 94 MCHC 31.9 L PLT 231 RDW-CV 18.3 H Neutrophil % 68.8 Immature Granulocytes % 3.8 Lymphocyte % 14.4 Monocyte % 10.0 Eosinophil % 2.1 Basophil % 0.9 Neutrophil Count 10.78 H Lymphocyte Count 2.25 Monocyte Count 1.56 H Eosinophil Count 0.33 Basophil Count 0.14 H Renal Function Panel 24-Mar-2018 03:38:00 ResultValue Glucose, Serum 170 H NA 132 L K 4.9 CL 96 L Bicarbonate, Serum 27 Anion Gap, Serum 14 BUN 39 H CREAT 0.75 GFR-Non >60 GFR- >60 Calcium, Serum 9.3 Phosphorus, Serum 2.9 ALB 2.8 L Hepatic Function Panel 23-Mar-2018 04:19:00 ResultValue Aspartate Transaminase, Serum 12 ALB 2.7 L T Bili 0.3 Bilirubin, Serum Direct - Conjugated 0.1 ALKP 57 Alanine Aminotransferase, Serum 17 T Pro 5.9 L Radiology Results: Results: Impression: Overall, no significant interval change compared to prior examination dated 03/07/2018. MRI Brain without Contrast [Mar 23 2018 3:00PM] NIHSS: Level of Consciousness: 0 = alert LOC Question: 0 = both correct LOC Commands: 0 = obeys both Best Gaze: 0 = normal Visual Field: 0 = no visual loss Facial Paresis: 1 = minor paresis Left Upper Extremity: 0 = no drift; 10 seconds Right Upper Extremity: 3 = no effort vs gravity Dysarthria: 1 = mild-moderate Left Lower Extremity: 2 = effort vs gravity Right Lower Extremity: 3 = no effort vs gravity Best Language: 0 = no aphasia Limb Ataxia: 0 = absent Sensory: 0 = absent Neglect: 0 = none NIHSS Score: 10 Assessment and Plan: Assessment: 67 y/o CM with pmhx meningioma s/p crani and resection in 2013 hospital day 40 for repeat resection meningioma for infratentorial tumor, microdisscetion, and lumbar drain placement. Course complicated by brainstem infarction and hypoxia from likely aspiration pneumonia necessitating transfer to ICU, evolution of infarct in 03/07 MRI brain in brainstem, complete left lung atelectasis, patient refusing care, PEG placement, and now a BAT called for confusion, unclear if there is actual change in neuro exam. CTH reviewed, no signs of early ischemic or hemorrhagic stroke. Findings initially attributed to metabolic encephalopathy + risperdal on top of baseline neurological deficits. No improvement in exam overnight after risperdal held. MRI done, is stable to prior no significant changes. He is more alert on 03/24 and much more cooperative. Impression: Metabolic encephalopathy (infection, hyponatremia, respiratory issues, medication induced) on top of baseline neuro deficits. Recommendations Continue to hold sedating medications Delirium precautions Treat sources of metabolic encephalopathy Stroke neurology will sign off at this time, please page with questions [id number]. Signature/Cosignature/Attestation: Attending AttestationI reviewed the resident/fellows documentation and discussed the patient with the resident/fellow. I agree with the resident/fellows medical decision making as documented in the residents note. Electronic Signatures: Lucas Huitron (Resident)) (Signed 24-Mar-2018 08:20) Authored: Service, Subjective Data, Objective Data, Scales, Assessment and Plan, Signature/Cosignature/Attestation Mark Kennedy) (Signed 24-Mar-2018 10:32) Authored: Assessment and Plan, Signature/Cosignature/Attestation Co-Signer: Service, Subjective Data, Objective Data, Scales, Assessment and Plan, Signature/Cosignature/Attestation Last Updated: 24-Mar-2018 10:32 by Mark Kennedy) DAILY PROGRESS Observed: 03/24/2018 Status: COMPLETED Source: [facility] NOTE-PULMONOLOGY 7:47 AM [facility]OSPITALS REPOSITORY Service: Pulmonology Subjective Data: DIPESH BERMUDEZ is a 67 year old Male who is Hospital Day # 43 and POD #41 for left retrosigmoid craniotomy for tumor resection. alert, calm. Objective Data: Objective Information: ---- Intake and Output ----- Mn/Dy/Year TimeIntakeOutputNet Mar 24, 2018 6:00 [id number] Mar 23, 2018 10:00 [id number] Mar 23, 2018 2:00 [id number] The Intake and Output Totals for the last 24 hours are: IntakeOutputNet [id number] T PRBPSpO2 [id number]/5096% Date/Time03/24 7: 7: 7: 7: 7:15 Range(36.4C - 37.2C ) (90 - 104 ) (11 - 26 ) (89 - 121 )/ (50 - 72 ) (93% - 97% ) As of 24-Mar-2018 07:15:00, patient is on 2 L/min of oxygen via nasal cannula. Highest temp of 37.2 C was recorded at 03/23 20:00 Pain with Activity reported at 03/23 21:15: 0 Pain at Rest reported at 03/23 21:15: 0 Physical Exam: Constitutional: no apparent distress Eyes: anicteric sclera ENMT: yellow plaque on tongue, dry Head/Neck: normocephalic Respiratory/Thorax: diminished breath sounds on left Cardiovascular: RRR Gastrointestinal: PEG, abdomen soft, with bowel sounds Musculoskeletal: REMY Extremities: trace BUE edema Neurological: A/O to self Skin: warm, dry Medication: Medications: Continuous Medications No continuous medications are active Scheduled Medications 1. Atorvastatin: 40 mg Oral Daily 2. Budesonide 0.5 mg/ 2 mL Nebulizer Soln: 2 mL Inhalation Every 12 Hours 3. Docusate 50 mg - Senna 8.6 m tablet(s) Oral 2 Times a Day 4. Enoxaparin SubCutaneous: 40 mg SubCutaneous Every 24 Hours 5. Esomeprazole Oral Packet: 40 mg PEG Tube 2 Times a Day 6. Insulin Glargine (Lantus) Injectable: 30 unit(s) SubCutaneous Every 24 Hours 7. Insulin Lispro Mild Corrective Scale: unit(s) SubCutaneous Every 4 Hours 8. levoFLOXacin 750 mg IVPB/ Premix 150 mL: 150 mL IntraVenous Piggyback Every 24 Hours 9. Nicotine 7 mg/ 24 hour TransDermal: 1 patch TransDermal Every 24 Hours 10. Nystatin Oral Liquid: [id number] unit(s) Oral Every 6 Hours 11. Petrolatum Topical: 1 application(s) Topical 2 Times a Day 12. Saliva Substitute: 5 mL Oral 4 Times a Day 13. Silodosin (NON - Formulary): 8 mg NasoGastric Tube Daily 14. Simethicone Oral Liquid Drops: 80 mg Oral 4 Times a Day After Meals 15. Sodium Chloride 0.9% Injectable Flush: 10 mL IntraVenous Flush Every 12 Hours 16. Sodium Chloride 0.9% Injectable Flush: 10 mL IntraVenous Flush Every 12 Hours 17. Sodium Chloride 3% Nebulizer Soln: 3 mL Inhalation Every 6 Hours 18. Valproic Acid (Depakene) Oral Liquid: 250 mg PEG Tube Every 12 Hours PRN Medications 1. Acetaminophen: 650 mg Oral Every 6 Hours 2. Albuterol 2.5 mg/ 3 mL Nebulizer Soln: 3 mL Inhalation Every 2 Hours 3. Bisacodyl Rectal: 10 mg Rectal Daily 4. Dextrose 50% in Water Injectable: 25 gram(s) IntraVenous Push Every 15 Minutes 5. Glucagon Injectable: 1 mg IntraMuscular Every 15 Minutes 6. Heparin Flush 10 unit/ mL PF Injectable: 5 mL IntraVenous Flush Every 12 Hours 7. Heparin Flush 10 unit/ mL PF Injectable PRN: 5 mL IntraVenous Flush According to Flush Policy 8. Heparin Flush 10 unit/ mL PF Injectable PRN: 5 mL IntraVenous Flush According to Flush Policy 9. Ondansetron Injectable: 4 mg IntraVenous Push Every 6 Hours 10. Polyethylene Glycol: 17 gram(s) Oral Daily 11. Sodium Chloride 0.9% Injectable Flush PRN: 10 mL IntraVenous Flush According to Flush Policy 12. Sodium Chloride 0.9% Injectable Flush PRN: 20 mL IntraVenous Flush According to Flush Policy Recent Lab Results: Results: I have reviewed these laboratory results: Glucose_POCT Trending View [id number] 04:32:00 24-Mar-2018 00:24:00 Glucose-PEPT777 H 136 H Complete Blood Count + Differential 24-Mar-2018 03:38:00 ResultValue White Blood Cell Count 15.7 H Nucleated Erythrocyte Count 0.0 Red Blood Cell Count 3.89 L HGB 11.7 L HCT 36.7 L MCV 94 MCHC 31.9 L PLT 231 RDW-CV 18.3 H Neutrophil % 68.8 Immature Granulocytes % 3.8 Lymphocyte % 14.4 Monocyte % 10.0 Eosinophil % 2.1 Basophil % 0.9 Neutrophil Count 10.78 H Lymphocyte Count 2.25 Monocyte Count 1.56 H Eosinophil Count 0.33 Basophil Count 0.14 H Renal Function Panel 24-Mar-2018 03:38:00 ResultValue Glucose, Serum 170 H NA 132 L K 4.9 CL 96 L Bicarbonate, Serum 27 Anion Gap, Serum 14 BUN 39 H CREAT 0.75 GFR-Non >60 GFR- >60 Calcium, Serum 9.3 Phosphorus, Serum 2.9 ALB 2.8 L Assessment and Plan: Assessment: 67 year old male patient who is s/p meningioma resection on 02/11 c/b L brainstem infarction, dysphagia and dysarthria, Right sided weakness, hypoxemic respiratory failure (treated for MRSA), AMS, now undergoing treatment for PSAG. Transfer to SDU on 03/22, pt arrived to the SDU drowsy with AMS, with periods of desaturation on room air, placed on CPAP, not following command, grimacing to painful stimulation at the time, Code BAT called, s/p head CT scan w/o acute findings. Family asked to transfer pt back to MICU and MRI brain (MRI unchanged from prior exam). NO need for transfer back to MICU at this time. Neuro: s/p meningioma resection on 02/11 c/b L brainstem infarction, dysphagia and dysarthria, right sided weakness. c/b AMS, difficult to arouse in the SDU on 03/22 s/p Head CT scan w/o acute findings. Patient at high risk for metabolic encephalopathy Pt with prolong hospitalization, undergoing infection treatment, polypharmacy. - cont Valproid Acid - holding trazodone, risperidone, melatonin - PT/OT/MANAGER PROCESS IMPROVEMENT following - NSG and Neuro stroke following - s/p head CT scan 03/22 (w/o no new acute findings per neuro stroke) - MRI brain order (no acute findings compared prior MRI 03/07) - will continue to provide supportive care Pulm: Hx of COPD. Acute hypoxia respiratory failure. Treated for MRSA PNA. Now undergoing treatment for PSAG pneumonia. Pt with AMS upon arrival to SDU. On cpap overnight, and now on 2 L of o2. - cont Levaquin for PSA coverage - cont budesonide, albuterol prn - repeat ABG prn - 03/22 chest xray (improvement of bilateral atelectasis) - will continue auto CPAP and NC 2-3L during the day (while off CPAP) - mechanical vest, IPV, bed percussion ID: Leukocytosis plateau WBC 16.5, remains afebrile. Now PSA in the sputum (03/21). - sputum cx 02/24 grew MRSA - Treated for MRSA PNA (Vanco 02/17-02/22, 02/25-03/04) - Abx: Kvng (02/24-02/28) - cont Levofloxacin for PSA coverage (start 03/21) Cardiac: hx of HTN, remains HD stable -holding home amlodipine, HCTZ and Lisinopril -cont Statin FEN/GI: Severe dysphagia 2/2 L brainstem infarction.s/p Peg tube 10/08. Tolerating tube feeds - cont bowel regimen - s/p EGD 02/21 showing LA grade D esophagitis - cont PPI twice a day x 3 months - Replete electrolytes as needed - daily RFP Renal: no issues Endo: IDDM - cont Lantus 30 units (40 units home dose) - SSI q6hrs - holding home 70/30 PPX: cont lovenox and scds DNAR/DNI lines: midline Updated nephew this afternoon, plan for DC to SNF early next week if remains stable. DIspo: Keep patient in the SDU A and P discussed with Dr Gamino Signature/Cosignature/Attestation: Attending Only - Shared Visit with Advanced Practice ProviderThis is a shared visit. I have reviewed the Advanced Practice Providers encounter note, approve the Advanced Practice Providers documentation, and provide the following additional information from my personal encounter. Comments/ Additional Findings Patient seen and examined by me during team rounds. Ms. Juarez's note reviewed and agree. Patient is awake and alert but hesitant to speak, which he says is due to dry mouth. Answers questions appropriately. Aggressive physical therapy is his biggest need currently. We will continue to follow cultures, though worsened somnolence 2 days ago was likely due to medication. Bayron Gamino MD Electronic Signatures: Cherelle Juarez ([employer] OPERATOR-GROUP MANAGER) (Signed 24-Mar-2018 16:40) Authored: Service, Subjective Data, Objective Data, Assessment and Plan, Signature/Cosignature/Attestation Bayron Gamino) (Signed 24-Mar-2018 18:13) Authored: Signature/Cosignature/Attestation Co-Signer: Objective Data, Assessment and Plan, Signature/Cosignature/Attestation Last Updated: 24-Mar-2018 18:13 by Bayron Gmaino) GLUCOSE-POCT Collected: 03/24/2018 Status: F Source: [facility] 4:32 AM [facility]OS[facility]ITALS REPOSITORY TYPE CODE TESTS RESULT OUT OF RANGE REFERENCE UNITS LAB GLUP(LOINC) 74 - 99 mg/dL High 173 GLUCOSE-POCT Performed By: #### GLUPO #### [facility] [address] [place] [address] CBC AND DIFFERENTIAL Collected: 03/24/2018 Status: F Source: [facility] 3:38 AM [facility]ITALS REPOSITORY TYPE CODE TESTS RESULT OUT OF REFERENCE UNITS RANGE LAB WBCR(LOINC 4.4 - 11.3 x10E9/L ) WBC High 15.7 LAB NRBC(LOINC 0.0-0.0 /100 WBC ) NUCLEATED RBC 0.0 LAB RBCCT(LOIN 4.50 - 5.90 x10E12/L C) Low RBC 3.89 LAB HGB(LOINC) 13.5 - 17.5 g/dL Low HGB 11.7 LAB HCT(LOINC) 41.0 - 52.0 % Low HCT 36.7 LAB MCV(LOINC) 80 - 100 fL MCV 94 LAB MCHC2(LOIN 32.0 - 36.0 g/dL C) Low MCHC 31.9 LAB PLTCT(LOIN 150 - 450 x10E9/L C) PLT 231 LAB RDWCV(LOIN 11.5 - 14.5 % C) RDW-CV High 18.3 LAB NEUT(LOINC 40.0 - 80.0 % ) % NEUTROPHIL 68.8 LAB IG(LOINC) 0.0 - 0.9 % % AUTOMATED 3.8 IMMATURE GRAN Result Comment: Percent differential counts (%) should be interpreted in the context of the absolute cell counts (cells/L). LAB LYMPH(LOINC) 13.0 - % 44.0 % LYMPHOCYTE 14.4 LAB MONO(LOINC) 2.0 - 10.0 % % MONOCYTE 10.0 LAB EOS(LOINC) 0.0 - 6.0 % % EOSINOPHIL 2.1 LAB BASO(LOINC) 0.0 - 2.0 % % BASOPHIL 0.9 LAB #NEUT(LOINC) 1.20 - x10E9/L 7.70 NEUTROPHIL High 10.78 LAB #LYMP(LOINC) 1.20 - x10E9/L 4.80 LYMPHOCYTE 2.25 LAB #MONO(LOINC) 0.10 - x10E9/L 1.00 MONOCYTE High 1.56 LAB #EOS(LOINC) 0.00 - x10E9/L 0.70 EOSINOPHIL 0.33 LAB #BASO(LOINC) 0.00 - x10E9/L 0.10 BASOPHIL High 0.14 Performed By: #### CBCDF #### [facility] [address] [place] [address] RENAL FUNCTION PANEL Collected: 03/24/2018 Status: F Source: [facility] 3:38 AM [facility]ITALS REPOSITORY TYPE CODE TESTS RESULT OUT OF REFERENCE UNITS RANGE LAB GLU(LOINC) 74 - 99 mg/dL GLUCOSE High 170 LAB SOD(LOINC) 136 - 145 mmol/L Low SODIUM 132 LAB K(LOINC) 3.5 - 5.3 mmol/L POTASSIUM 4.9 LAB CHLOR(LOIN 98 - 107 mmol/L C) Low CHLORIDE 96 LAB BIC(LOINC) 21 - 32 mmol/L BICARBONATE 27 LAB ANGAP(LOIN 10 - 20 mmol/L C) ANION GAP 14 LAB UREA(LOINC 6 - 23 mg/dL ) UREA High NITROGEN 39 LAB CREA(LOINC 0.50 - 1.30 mg/dL ) CREATININE 0.75 LAB GFRFN(LOIN >60 mL/min/1.7 C) 3m2 GFR-NON AM. >60 LAB GFRAA(LOIN >60 mL/min/1.7 C) 3m2 GFR- AM. >60 Result Comment: CALCULATIONS OF ESTIMATED GFR ARE PERFORMED USING THE MDRD STUDY EQUATION FOR THE IDMS-TRACEABLE CREATININE METHODS. CLIN CHEM 2007;53:766-72 LAB CA(LOINC) 8.6 - 10.6 mg/dL CALCIUM 9.3 LAB PHOS(LOINC) 2.5 - 4.9 mg/dL PHOSPHORUS 2.9 Result Comment: The performance characteristics of phosphorus testing in heparinized plasma have been validated by the individual laboratory site where testing is performed. Testing on heparinized plasma is not approved by the FDA; however, such approval is not necessary. LAB ALB(LOINC) 3.4 - 5.0 g/dL Low ALBUMIN 2.8 Performed By: #### RENAL #### [facility] [address] [place] [address] GLUCOSE-POCT Collected: 03/24/2018 Status: F Source: [facility] 12:24 AM [facility]OSPITALS REPOSITORY TYPE CODE TESTS RESULT OUT OF RANGE REFERENCE UNITS LAB GLUP(LOINC) 74 - 99 mg/dL High 136 GLUCOSE-POCT Performed By: #### GLUPO #### [facility] [address] [place] [address] GLUCOSE-POCT Collected: 03/23/2018 Status: F Source: [facility] 8:34 PM [facility]OSPITALS REPOSITORY TYPE CODE TESTS RESULT OUT OF RANGE REFERENCE UNITS LAB GLUP(LOINC) 74 - 99 mg/dL High 158 GLUCOSE-POCT Performed By: #### GLUPO #### [facility] [address] [place] [address] GLUCOSE-POCT Collected: 03/23/2018 Status: F Source: [facility] 4:40 PM [facility]ITALS REPOSITORY TYPE CODE TESTS RESULT OUT OF RANGE REFERENCE UNITS LAB GLUP(LOINC) 74 - 99 mg/dL High 205 GLUCOSE-POCT Performed By: #### GLUPO #### [facility] [address] [place] [address] NR MRI BRAIN WO Observed: 03/23/2018 Status: F Source: [facility] 1:31 PM [facility]OSPITALS REPOSITORY Patient Name: DIPESH BERMUDEZ STUDY: NR MRI BRAIN WO; 03/23/2018 1:31 pm INDICATION: Signs/Symptoms: alter mental status, Lie Flat: Yes, Pre Med: No. COMPARISON: MRI scan of the brain dated 03/07/2018 ACCESSION NUMBER(S): [id number] ORDERING CLINICIAN: BRITTANY COOL TECHNIQUE: Axial T2, FLAIR, DWI, gradient echo T2 and sagittal and coronal T1 weighted images of brain were acquired. FINDINGS: Again, note is made of changes consistent with previous left retromastoid craniectomy and mesh cranioplasty as well as left frontal craniotomy. An extracranial fluid collection is again noted at the craniotomy site which is unchanged in size in the interval. Also, an extra-axial intracranial fluid collection is again noted adjacent to the mesh cranioplasty unchanged in the interval. Again, note is made of encephalomalacia changes involving the inferior cerebellar hemispheres bilaterally. Abnormal diffusion restriction is again seen involving the left anterior aspect the alejandra not significantly changed in the interval. There are no new areas of abnormal diffusion restriction on the current examination compared to the previous examination. There is no gradient echo image evidence of intracranial hemorrhage. Abnormal signal intensity consistent with residual neoplasm/postoperative granulation tissue is again seen within the left prepontine cistern extending into the region Meckel's cave on the left. The appearance has not changed significantly in the interval. Again, note is made of edematous changes involving the left temporal lobe unchanged in the interval. Again, note is made of nonspecific signal changes involving right hemispheric periventricular white matter. IMPRESSION: Overall, no significant interval change compared to prior examination dated 03/07/2018. Electronically signed by: BRITTANY HAMPTON MD GLUCOSE-POCT Collected: 03/23/2018 Status: F Source: [facility] 12:25 PM [facility]OSPITALS REPOSITORY TYPE CODE TESTS RESULT OUT OF RANGE REFERENCE UNITS LAB GLUP(LOINC) 74 - 99 mg/dL High 174 GLUCOSE-POCT Performed By: #### GLUPO #### [facility] [address] [place] [address] EMR ADDON Collected: 03/23/2018 Status: F Source: [facility] 10:58 AM [facility] REPOSITORY TYPE CODE TESTS RESULT OUT OF REFERENCE UNITS RANGE LAB EMRAC(LOIN C) ADDON CONFIRMATION REQUEST REC'D Performed By: #### EMRAD #### NO LOCATION NEEDED GLUCOSE-POCT Collected: 03/23/2018 Status: F Source: [facility] 8:56 AM [facility] REPOSITORY TYPE CODE TESTS RESULT OUT OF RANGE REFERENCE UNITS LAB GLUP(LOINC) 74 - 99 mg/dL High 203 GLUCOSE-POCT Performed By: #### GLUPO #### [facility] [address] [place] [id number] DAILY PROGRESS Observed: 03/23/2018 Status: COMPLETED Source: [facility] NOTE-PULMONOLOGY 8:30 AM [facility]OSPITALS REPOSITORY Service: Pulmonology Subjective Data: DIPESH BERMUDEZ is a 67 year old Male who is Hospital Day # 42 and POD #40 for left retrosigmoid craniotomy for tumor resection. Additional Information: no acute events overnight, pt's vitals stable, pt was taking off CPAP this morning. asked pt patient to say sidneylo KELVIN he replied. Asked to tell me his name, place, time, nodded head 'NO', asked commands question pt close his eyes and yelled What. Objective Data: Objective Information: T PRBPSpO2 [id number]/6397% Date/Time03/23 8: 8: 8: 8: 8:00 Range(36.2C - 37.8C ) (91 - 100 ) (15 - 29 ) (103 - 131 )/ (63 - 86 ) (92% - 97% ) As of 22-Mar-2018 22:00:00, patient is on 2 L/min of oxygen via CPAP. Highest temp of 37.8 C was recorded at 11/6 20:00 Weights 03/23 6:00: Weight in kg (Weight (kg)) 87.4 03/23 6:00: Weight in lbs ((lbs)) 192.6 ---- Intake and Output ----- Mn/Dy/[facility] Mar 23, 2018 6:00 [id number] Mar 22, 2018 10:00 [id number] Mar 22, 2018 2:00 [id number] The Intake and Output Totals for the last 24 hours are: IntakeOutputNet [id number] Physical Exam: Constitutional: drowsy, pt was aroused, noddle head NO when asked (name, time, place), yelled what when asked simple commands request, moved noted on right arm, left arm, and left toes, none noted on RLL Eyes: pupils +3 equal reactive to light ENMT: mucous membrane dry, white coated tongue Head/Neck: nc/at Respiratory/Thorax: clear lung anterior field, diminished BB no wheezing, rales or rhonchi Cardiovascular: RRR, s1/s 2 no s3/s4 no GMR + radial and dp Gastrointestinal: abd soft nontender Genitourinary: flynn yellow clear urine Musculoskeletal: no movement on RLL, pt followed command when asked to lift JOEY (weakness lift up 10 degree angle), squeeze with Carole, lift up to 15 degree angle), wiggles toes L side. Extremities: no cyanosis edema, contusions or wounds, no clubbing Neurological: unable to assess cranial nverve V, II, IX, X, XI due to pt with poor cooperation on exam Psychological: flat Skin: warm dry Medication: Medications: Continuous Medications No continuous medications are active Scheduled Medications 1. Atorvastatin: 40 mg Oral Daily 2. Budesonide 0.5 mg/ 2 mL Nebulizer Soln: 2 mL Inhalation Every 12 Hours 3. Docusate 50 mg - Senna 8.6 m tablet(s) Oral 2 Times a Day 4. Enoxaparin SubCutaneous: 40 mg SubCutaneous Every 24 Hours 5. Esomeprazole Oral Packet: 40 mg PEG Tube 2 Times a Day 6. Insulin Glargine (Lantus) Injectable: 30 unit(s) SubCutaneous Every 24 Hours 7. Insulin Lispro Mild Corrective Scale: unit(s) SubCutaneous Every 4 Hours 8. levoFLOXacin 750 mg IVPB/ Premix 150 mL: 150 mL IntraVenous Piggyback Every 24 Hours 9. Nicotine 7 mg/ 24 hour TransDermal: 1 patch TransDermal Every 24 Hours 10. Nystatin Oral Liquid: [id number] unit(s) Oral Every 6 Hours 11. Petrolatum Topical: 1 application(s) Topical 2 Times a Day 12. Saliva Substitute: 5 mL Oral 4 Times a Day 13. Silodosin (NON - Formulary): 8 mg NasoGastric Tube Daily 14. Simethicone Oral Liquid Drops: 80 mg Oral 4 Times a Day After Meals 15. Sodium Chloride 0.9% Injectable Flush: 10 mL IntraVenous Flush Every 12 Hours 16. Sodium Chloride 0.9% Injectable Flush: 10 mL IntraVenous Flush Every 12 Hours 17. Sodium Chloride 3% Nebulizer Soln: 3 mL Inhalation Every 6 Hours 18. Valproic Acid (Depakene) Oral Liquid: 250 mg PEG Tube Every 12 Hours PRN Medications 1. Acetaminophen: 650 mg Oral Every 6 Hours 2. Albuterol 2.5 mg/ 3 mL Nebulizer Soln: 3 mL Inhalation Every 2 Hours 3. Bisacodyl Rectal: 10 mg Rectal Daily 4. Dextrose 50% in Water Injectable: 25 gram(s) IntraVenous Push Every 15 Minutes 5. Fleet Adult (Sodium Phosphate) Rectal: 1 enema Rectal Daily 6. Glucagon Injectable: 1 mg IntraMuscular Every 15 Minutes 7. Heparin Flush 10 unit/ mL PF Injectable: 5 mL IntraVenous Flush Every 12 Hours 8. Heparin Flush 10 unit/ mL PF Injectable PRN: 5 mL IntraVenous Flush According to Flush Policy 9. Heparin Flush 10 unit/ mL PF Injectable PRN: 5 mL IntraVenous Flush According to Flush Policy 10. Ondansetron Injectable: 4 mg IntraVenous Push Every 6 Hours 11. Polyethylene Glycol: 17 gram(s) Oral Daily 12. Sodium Chloride 0.9% Injectable Flush PRN: 10 mL IntraVenous Flush According to Flush Policy 13. Sodium Chloride 0.9% Injectable Flush PRN: 20 mL IntraVenous Flush According to Flush Policy Currently Suspended Medications 1. Melatonin: 3 mg Oral At Bedtime 2. risperiDONE: 2 mg Oral At Bedtime Recent Lab Results: Results: I have reviewed these laboratory results: Glucose_POCT Trending View [id number] 08:56:00 23-Mar-2018 03:44:00 23-Mar-2018 00:24:00 [id number] H 168 H 143 H Complete Blood Count + Differential 23-Mar-2018 04:19:00 ResultValue White Blood Cell Count 16.5 H Nucleated Erythrocyte Count 0.0 Red Blood Cell Count 3.83 L HGB 11.3 L HCT 36.2 L MCV 95 MCHC 31.2 L PLT 255 RDW-CV 18.3 H Immature Granulocytes % 5.8 Differential Comment SEE MANUAL DIFF Renal Function Panel 23-Mar-2018 04:19:00 ResultValue Glucose, Serum 165 H NA 132 L K 5.0 CL 97 L Bicarbonate, Serum 28 Anion Gap, Serum 12 BUN 39 H CREAT 0.91 GFR-Non >60 GFR- >60 Calcium, Serum 9.5 Phosphorus, Serum 3.5 ALB 2.7 L RBC Morphology 23-Mar-2018 04:19:00 ResultValue Red Blood Cell Morphology See Below Polychromasia Mild Manual Differential Panel 23-Mar-2018 04:19:00 ResultValue % Seg Neutrophil 68.0 % Band Neutrophil 8.0 % Lymphocyte 9.0 % Monocyte 11.0 % Eosinophil 1.0 % Basophil 0.0 % Lymph-Atypical 1.0 % Myelocyte 2.0 Absolute Neutrophil Count (ANC) 12.54 H Seg Neutrophil Count 11.22 H Band Neutrophil Count 1.32 H Lymphocyte, Count 1.49 Monocyte, Count 1.82 H Eosinophil, Count 0.17 Basophil, Count 0.00 Lymph Atypical, Count 0.17 Myelocyte, Count 0.33 A Assessment and Plan: Additional Dx: Encephalopathy: Entered Date: 23-Mar-2018 09:23 Brainstem stroke syndrome: Entered Date: 08-Mar-2018 14:40 Esophagitis, acute: Entered Date: 06-Mar-2018 17:45 COPD with chronic bronchitis and emphysema: Entered Date: 22-Feb-2018 19:10 Respiratory failure with hypoxia: Entered Date: 22-Feb-2018 09:36 Oropharyngeal dysphagia: Entered Date: 20-Feb-2018 15:42 skilled nursing current use of insulin: Entered Date: 10-Feb-2018 13:31 Assessment: 67 year old male patient who is s/p meningioma resection on 02/11 c/b L brainstem infarction, dysphagia and dysarthria, Right sided weakness, hypoxemic respiratory failure (treated for MRSA), AMS, now undergoing treatment for PSAG. Transfer to SDU on 03/22, pt arrived to the SDU drowsy with AMS, with periods of desaturation on room air, placed on CPAP, not following command, grimacing to painful stimulation at the time, Code BAT called, s/p head CT scan w/o acute findings. Family asked to transfer pt back to MICU and MRI brain (both pending). This morning open eyes to verbal and touch stimulation, asked to say Hello he say HI, asked to express his name, place or time he noddle NO, after multiple request to assess command response, physical and mental pt yelled What and closed his eyes. Movement noted BUA and left leg toes, no spontaneous movement noted to RLL. Patient's vitals stable since arrival to SDU. Neuro: s/p meningioma resection on 02/11 c/b L brainstem infarction, dysphagia and dysarthria, right sided weakness. c/b AMS, difficult to arouse in the SDU on 03/22 s/p Head CT scan w/o acute findings. Patient at high risk for metabolic encephalopathy Pt with prolong hospitalization, undergoing infection treatment, polypharmacy. - cont Valproid Acid - holding trazodone, risperidone, melatonin - PT/OT/MANAGER PROCESS IMPROVEMENT following - NSG and Neuro stroke following - s/p head CT scan 03/22 (w/o no new acute findings per neuro stroke) - MRI brain order (no acute findings compared prior MRI 03/07) - will continue to provide supportive care Pulm: Hx of COPD. Acute hypoxia respiratory failure. Treated for MRSA PNA. Now undergoing treatment for PSAG pneumonia. Pt with AMS upon arrival to SDU. On cpap overnight, and now on 2 L of o2. - ABG obtained w/o any CO2 retention (7.48/37/74/98/27.4), repeat VBG 7.41/46/36/29.2) - cont Levaquin for PSA coverage - cont budesonide, albuterol prn - repeat ABG prn - 03/22 chest xray (improvement of bilateral atelectasis) - will continue auto CPAP and NC 2-3L during the day (while off CPAP) - mechanical vest, IPV, bed percussion ID: Leukocytosis plateau WBC 16.5, remains afebrile. Now PSA in the sputum (03/21). - sputum cx 02/24 grew MRSA - Treated for MRSA PNA (Vanco 02/17-02/22, 02/25-03/04) - Abx: Kvng (02/24-02/28) - cont Levofloxacin for PSA coverage (start 03/21) Cardiac: hx of HTN, remains HD stable -holding home amlodipine, HCTZ and Lisinopril -cont Statin FEN/GI: Severe dysphagia 2/2 L brainstem infarction.s/p Peg tube 02/21. Tolerating tube feeds - cont bowel regimen - s/p EGD 02/21 showing LA grade D esophagitis - cont PPI twice a day x 3 months - Replete electrolytes as needed - daily RFP Renal: no issues Endo: IDDM - cont Lantus 30 units (40 units home dose) - SSI q6hrs - holding home 70/30 PPX: cont lovenox and scds DNAR/DNI lines: midline Will update pt's nephew today after rounds or with new medical changes of the patient. DIspo: Keep patient in the SDU Plan for discharge to LTACH from either SDU or ICU. A and P discussed with Dr Gmaino Signature/Cosignature/Attestation: Attending Only - Shared Visit with Advanced Practice ProviderThis is a shared visit. I have reviewed the Advanced Practice Providers encounter note, approve the Advanced Practice Providers documentation, and provide the following additional information from my personal encounter. Comments/ Additional Findings Patient seen and examined by me during rounds today. I agree with Ms. Cool's exam and plan. Patient is awake and alert on my exam. He spoke a few words but largely communicated with nods and shrugs, but did so appropriately. MRI results pending. Patient is appropriate to remain in stepdown. Bayron Gamino MD Electronic Signatures: Brittany Cool ([employer] OPERATOR-GROUP MANAGER) (Signed 23-Mar-2018 15:31) Authored: Service, Subjective Data, Objective Data, Assessment and Plan, Signature/Cosignature/Attestation Bayron Gamino) (Signed 23-Mar-2018 16:10) Authored: Signature/Cosignature/Attestation Co-Signer: Signature/Cosignature/Attestation Last Updated: 23-Mar-2018 16:10 by Bayron Gamino) DAILY PROGRESS Observed: 03/23/2018 Status: COMPLETED Source: UNIVERSITY NOTE-NEURO - STROKE 7:51 AM HOSPITALS REPOSITORY Service: Neuro - Stroke Subjective Data: DIPESH BERMUDEZ is a 67 year old Male who is Hospital Day # 42 and POD #40 for left retrosigmoid craniotomy for tumor resection. Overnight pt's nephew requested MRI and MICU transfer. Pt's overnight nurse who also had him prior night in the SDU says there has been no clinical change. in AM patient is still telling me to stop and being minimally cooperative. Objective Data: Objective Information: ---- Intake and Output ----- Mn/Dy/Year TimeIntakeOutputNet Mar 23, 2018 6:00 [id number] Mar 22, 2018 10:00 [id number] Mar 22, 2018 2:00 [id number] The Intake and Output Totals for the last 24 hours are: IntakeOutputNet [id number] Physical Exam: Neurological: MSE: Sleepy but arousable, Oriented to name, not age (thought it was 61), not place (hospital but in [place]), not answering for president or year. Minimally cooperative not following any commands. CN: PERRL, EOMI by VOR, right lower facial assymetry/droop. Not following any commands to test vision, remainder of CN exam limited by lack of cooperation Motor: flaccid RUE and RLE. NOrmal tone LUE and LLE. Is at least AG in LUE and localizing there. Spontaneous LLE movements observed, and spont RLE at toes. No movement in RUE observed. Not fol cmnds for further testing. Sensory: Grimaces to nox stim x4, but no movement in response in RUE, trace toe movement in RLE Reflexes: normal in RUE, 0 Rt knee 0 rt ankle, rt toes mute. UNable to test in LUE due to lack of cooperation, LLE 0 knee 0 ankle, toes mute. Coord: untestable due to lack of cooperation Gait: untestable due to lack of cooperation Medication: Medications: ANTI-INFECTIVES: 1. Nystatin Oral Liquid: [id number] unit(s) Oral Every 6 Hours 2. levoFLOXacin 750 mg IVPB/ Premix 150 mL: 150 mL IntraVenous Piggyback Every 24 Hours CARDIOVASCULAR AGENTS: 1. Silodosin (NON - Formulary): 8 mg NasoGastric Tube Daily CENTRAL NERVOUS SYSTEM AGENTS: 1. Acetaminophen: 650 mg Oral Every 6 Hours PRN 2. Valproic Acid (Depakene) Oral Liquid: 250 mg PEG Tube Every 12 Hours 3. Ondansetron Injectable: 4 mg IntraVenous Push Every 6 Hours PRN COAGULATION MODIFIERS: 1. Enoxaparin SubCutaneous: 40 mg SubCutaneous Every 24 Hours 2. Heparin Flush 10 unit/ mL PF Injectable: 5 mL IntraVenous Flush Every 12 Hours PRN 3. Heparin Flush 10 unit/ mL PF Injectable PRN: 5 mL IntraVenous Flush According to Flush Policy PRN 4. Heparin Flush 10 unit/ mL PF Injectable PRN: 5 mL IntraVenous Flush According to Flush Policy PRN GASTROINTESTINAL AGENTS: 1. Bisacodyl Rectal: 10 mg Rectal Daily PRN 2. Docusate 50 mg - Senna 8.6 m tablet(s) Oral 2 Times a Day 3. Fleet Adult (Sodium Phosphate) Rectal: 1 enema Rectal Daily PRN 4. Polyethylene Glycol: 17 gram(s) Oral Daily PRN 5. Simethicone Oral Liquid Drops: 80 mg Oral 4 Times a Day After Meals 6. Esomeprazole Oral Packet: 40 mg PEG Tube 2 Times a Day METABOLIC AGENTS: 1. Insulin Glargine (Lantus) Injectable: 30 unit(s) SubCutaneous Every 24 Hours 2. Insulin Lispro Mild Corrective Scale: unit(s) SubCutaneous Every 4 Hours 3. Atorvastatin: 40 mg Oral Daily 4. Dextrose 50% in Water Injectable: 25 gram(s) IntraVenous Push Every 15 Minutes PRN 5. Glucagon Injectable: 1 mg IntraMuscular Every 15 Minutes PRN MISCELLANEOUS AGENTS: 1. Nicotine 7 mg/ 24 hour TransDermal: 1 patch TransDermal Every 24 Hours NUTRITIONAL PRODUCTS: 1. Sodium Chloride 0.9% Injectable Flush: 10 mL IntraVenous Flush Every 12 Hours 2. Sodium Chloride 0.9% Injectable Flush: 10 mL IntraVenous Flush Every 12 Hours 3. Sodium Chloride 0.9% Injectable Flush PRN: 10 mL IntraVenous Flush According to Flush Policy PRN 4. Sodium Chloride 0.9% Injectable Flush PRN: 20 mL IntraVenous Flush According to Flush Policy PRN RESPIRATORY AGENTS: 1. Albuterol 2.5 mg/ 3 mL Nebulizer Soln: 3 mL Inhalation Every 2 Hours PRN 2. Sodium Chloride 3% Nebulizer Soln: 3 mL Inhalation Every 6 Hours 3. Budesonide 0.5 mg/ 2 mL Nebulizer Soln: 2 mL Inhalation Every 12 Hours TOPICAL AGENTS: 1. Petrolatum Topical: 1 application(s) Topical 2 Times a Day 2. Saliva Substitute: 5 mL Oral 4 Times a Day Currently Suspended Medications 1. Melatonin: 3 mg Oral At Bedtime 2. risperiDONE: 2 mg Oral At Bedtime Recent Lab Results: Results: I have reviewed these laboratory results: Complete Blood Count + Differential Trending View [id number] 04:19:00 22-Mar-2018 04:02:00 White Blood Cell Count16.5 H 16.7 H Nucleated Erythrocyte Count0.0 0.0 Red Blood Cell Count3.83 L 4.01 L HGB11.3 L 11.9 L HCT36.2 L 38.0 L MCV95 95 MCHC31.2 L 31.3 L ASV566 246 RDW-CV18.3 H 18.0 H Immature Granulocytes %5.8 8.6 Differential CommentSEE MANUAL DIFF SEE MANUAL DIFF Renal Function Panel Trending View [id number] 04:19:00 22-Mar-2018 04:02:00 Glucose, Dqxxs012 H 125 H NA132 L 132 L K5.0 4.9 CL97 L 97 L Bicarbonate, Serum28 28 Anion Gap, Serum12 12 BUN39 H 32 H CREAT0.91 0.75 GFR-Non >60 >60 GFR->60 >60 Calcium, Serum9.5 9.4 Phosphorus, Serum3.5 3.1 ALB2.7 L 2.8 L RBC Morphology Trending View [id number] 04:19:00 22-Mar-2018 04:02:00 Red Blood Cell MorphologySee Below See Below PolychromasiaMild Mild Manual Differential Panel 23-Mar-2018 04:19:00 ResultValue % Seg Neutrophil 68.0 % Band Neutrophil 8.0 % Lymphocyte 9.0 % Monocyte 11.0 % Eosinophil 1.0 % Basophil 0.0 % Lymph-Atypical 1.0 % Myelocyte 2.0 Absolute Neutrophil Count (ANC) 12.54 H Seg Neutrophil Count 11.22 H Band Neutrophil Count 1.32 H Lymphocyte, Count 1.49 Monocyte, Count 1.82 H Eosinophil, Count 0.17 Basophil, Count 0.00 Lymph Atypical, Count 0.17 Myelocyte, Count 0.33 A Glucose_POCT Trending View [id number] 03:44:00 23-Mar-2018 00:24:00 22-Mar-2018 20:56:00 22-Mar-2018 17:50:00 22-Mar-2018 11:48:00 22-Mar-2018 08:17:00 Glucose-[id number] H 143 H 152 H 117 H 203 H 210 H Urinalysis 22-Mar-2018 16:23:00 ResultValue Color, Urine YELLOW Reference Range: STRAW,YELLOW Appearance, Urine CLEAR Specific [place], Urine 1.015 pH, Urine 8.0 Protein, Urine 30 (1+) A Glucose, Urine NEGATIVE Blood, Urine NEGATIVE Ketones, Urine NEGATIVE Bilirubin, Urine NEGATIVE Urobilinogen, Urine <2.0 Nitrite, Urine NEGATIVE Leukocyte Esterase, Urine TRACE A Urinalysis, Microscopic 22-Mar-2018 16:23:00 ResultValue White Cells 9 A Red Blood Cells 3 Mucous 1+ Blood Gas, Venous 22-Mar-2018 10:37:00 ResultValue pH, Venous 7.41 pCO2, Venous 46 pO2, Venous 36 Patient-Temperature 37.0 SO2, Venous 73 Base Excess-Blood 4.0 H Bicarbonate, Calculated, Venous 29.2 H Blood Gas, Arterial 22-Mar-2018 10:04:00 ResultValue pH, Arterial 7.48 H pCO2, Arterial 37 L pO2, Arterial 74 L Patient-Temperature 37.0 SO2, Arterial 98 Base Excess-Blood 4.0 H Bicarbonate, Calculated, Arterial 27.6 H NIHSS: Level of Consciousness: 1 = drowsy LOC Question: 1 = one correct LOC Commands: 2 = obeys neither Best Gaze: 0 = normal Visual Field: 0 = no visual loss Facial Paresis: 1 = minor paresis Left Upper Extremity: 1 = drift Right Upper Extremity: 4 = no movement Dysarthria: 1 = mild-moderate Left Lower Extremity: 3 = no effort vs gravity Right Lower Extremity: 3 = no effort vs gravity Best Language: 2 = severe aphasia Limb Ataxia: 0 = absent Sensory: 0 = absent Neglect: 0 = none NIHSS Score: 19 Assessment and Plan: Assessment: 67 y/o CM with pmhx meningioma s/p crani and resection in 2013 hospital day 40 for repeat resection meningioma for infratentorial tumor, microdisscetion, and lumbar drain placement. Course complicated by brainstem infarction and hypoxia from likely aspiration pneumonia necessitating transfer to ICU, evolution of infarct in 03/07 MRI brain in brainstem, complete left lung atelectasis, patient refusing care, PEG placement, and now a BAT called for confusion, unclear if there is actual change in neuro exam. CTH reviewed, no signs of early ischemic or hemorrhagic stroke. Findings initially attributed to metabolic encephalopathy + risperdal on top of baseline neurological deficits. No improvement in exam overnight after risperdal held. now waiting for MRI (requested by pt's nephew) and MICU transfer. Impression: Metabolic encephalopathy (infection, hyponatremia, respiratory issues, medication induced) on top of baseline neuro deficits. Recommendations Continue to hold sedating medications Metabolic encephalopathy workup Will follow up MRI if done Signature/Cosignature/Attestation: Attending AttestationI reviewed the resident/fellows documentation and discussed the patient with the resident/fellow. I agree with the resident/fellows medical decision making as documented in the residents note. Electronic Signatures: Lucas Huitron (Resident)) (Signed 24-Mar-2018 08:51) Authored: Service, Subjective Data, Objective Data, Scales, Assessment and Plan, Signature/Cosignature/Attestation Mark Kennedy) (Signed 24-Mar-2018 10:30) Authored: Signature/Cosignature/Attestation Co-Signer: Service, Subjective Data, Objective Data, Scales, Assessment and Plan, Signature/Cosignature/Attestation Last Updated: 24-Mar-2018 10:30 by Mark Kennedy) RENAL FUNCTION PANEL Collected: 03/23/2018 Status: F Source: [facility] 4:19 AM HOSPITALS REPOSITORY TYPE CODE TESTS RESULT OUT OF REFERENCE UNITS RANGE LAB GLU(LOINC) 74 - 99 mg/dL GLUCOSE High 165 LAB SOD(LOINC) 136 - 145 mmol/L Low SODIUM 132 LAB K(LOINC) 3.5 - 5.3 mmol/L POTASSIUM 5.0 LAB CHLOR(LOIN 98 - 107 mmol/L C) Low CHLORIDE 97 LAB BIC(LOINC) 21 - 32 mmol/L BICARBONATE 28 LAB ANGAP(LOIN 10 - 20 mmol/L C) ANION GAP 12 LAB UREA(LOINC 6 - 23 mg/dL ) UREA High NITROGEN 39 LAB CREA(LOINC 0.50 - 1.30 mg/dL ) CREATININE 0.91 LAB GFRFN(LOIN >60 mL/min/1.7 C) 3m2 GFR-NON AM. >60 LAB GFRAA(LOIN >60 mL/min/1.7 C) 3m2 GFR- AM. >60 Result Comment: CALCULATIONS OF ESTIMATED GFR ARE PERFORMED USING THE MDRD STUDY EQUATION FOR THE IDMS-TRACEABLE CREATININE METHODS. CLIN CHEM 2007;53:766-72 LAB CA(LOINC) 8.6 - 10.6 mg/dL CALCIUM 9.5 LAB PHOS(LOINC) 2.5 - 4.9 mg/dL PHOSPHORUS 3.5 Result Comment: The performance characteristics of phosphorus testing in heparinized plasma have been validated by the individual laboratory site where testing is performed. Testing on heparinized plasma is not approved by the FDA; however, such approval is not necessary. LAB ALB(LOINC) 3.4 - 5.0 g/dL Low ALBUMIN 2.7 Performed By: #### RENAL #### [facility] [address] [place] [address] CBC AND DIFFERENTIAL Collected: 03/23/2018 Status: F Source: [facility] 4:19 AM HOSPITALS REPOSITORY TYPE CODE TESTS RESULT OUT OF REFERENCE UNITS RANGE LAB WBCR(LOINC 4.4 - 11.3 x10E9/L ) WBC High 16.5 LAB NRBC(LOINC 0.0-0.0 /100 WBC ) NUCLEATED RBC 0.0 LAB RBCCT(LOIN 4.50 - 5.90 x10E12/L C) Low RBC 3.83 LAB HGB(LOINC) 13.5 - 17.5 g/dL Low HGB 11.3 LAB HCT(LOINC) 41.0 - 52.0 % Low HCT 36.2 LAB MCV(LOINC) 80 - 100 fL MCV 95 LAB MCHC2(LOIN 32.0 - 36.0 g/dL C) Low MCHC 31.2 LAB PLTCT(LOIN 150 - 450 x10E9/L C) PLT 255 LAB RDWCV(LOIN 11.5 - 14.5 % C) High RDW-CV 18.3 LAB IG(LOINC) 0.0 - 0.9 % % AUTOMATED 5.8 IMMATURE GRAN Result Comment: Percent differential counts (%) should be interpreted in the context of the absolute cell counts (cells/L). LAB MDIF(LOINC) DIFFERENTIAL SEE MANUAL DIFF Performed By: #### CBCDF #### [facility] [address] [place] [address] MANUAL DIFFERENTIAL Collected: 03/23/2018 Status: F Source: [facility] 4:19 AM [facility]OSPITALS REPOSITORY TYPE CODE TESTS RESULT OUT OF REFERENCE UNITS RANGE LAB SEG(LOINC) 40.0 - 80.0 % % SEG NEUTROPHIL 68.0 Result Comment: Percent differential counts (%) should be interpreted in the context of the absolute cell counts (cells/L). LAB BAND(LOINC) 0.0 - 5.0 % % BAND NEUTROPHIL 8.0 LAB LYMP2(LOINC) 13.0 - % 44.0 % LYMPHOCYTE 9.0 LAB MONO2(LOINC) 2.0 - % 10.0 % MONOCYTE 11.0 LAB EOS2(LOINC) 0.0 - 6.0 % % EOSINOPHIL 1.0 LAB BASO2(LOINC) 0.0 - 2.0 % % BASOPHIL 0.0 LAB ALYMP(LOINC) 0.0 - 2.0 % % LYMPH-ATYPICAL 1.0 LAB MYEL(LOINC) 0.0 - 0.0 % % MYELOCYTE 2.0 LAB ANC(LOINC) 1.20 - x10E9/L High 7.70 ANC 12.54 LAB #SEG(LOINC) 1.20 - x10E9/L High 7.00 SEG NEUTROPHIL 11.22 LAB #BAND(LOINC) 0.00 - x10E9/L High 0.70 BAND NEUTROPHIL 1.32 LAB #LYM2(LOINC) 1.20 - x10E9/L 4.80 LYMPHOCYTE 1.49 LAB #MON2(LOINC) 0.10 - x10E9/L High 1.00 MONOCYTE 1.82 LAB #EOS2(LOINC) 0.00 - x10E9/L 0.70 EOSINOPHIL 0.17 LAB #BAS2(LOINC) 0.00 - x10E9/L 0.10 BASOPHIL 0.00 LAB #ALYM(LOINC) 0.00 - x10E9/L 0.50 LYMPH-ATYPICAL 0.17 LAB #MYEL(LOINC) 0.00 - x10E9/L Abnormal 0.00 MYELOCYTE 0.33 Performed By: #### MDIFF #### [facility] [address] [place] [address] RED CELL MORPHOLOGY Collected: 03/23/2018 Status: F Source: [facility] 4:19 AM HOSPITALS REPOSITORY TYPE CODE TESTS RESULT OUT OF REFERENCE UNITS RANGE LAB RBCMO(LOIN C) RBC MORPHOLOGY See Below LAB POLY(LOINC ) POLYCHROMASIA Mild Performed By: #### MORP2 #### [facility] [address] [place] [address] HEPATIC FUNCTION Collected: 03/23/2018 Status: F Source: [facility] 4:19 AM HOSPITALS REPOSITORY TYPE CODE TESTS RESULT OUT OF REFERENCE UNITS RANGE LAB ALB(LOINC) 3.4 - 5.0 g/dL Low ALBUMIN 2.7 LAB TBILI(LOIN 0.0 - 1.2 mg/dL C) BILIRUBIN,TOTAL 0.3 LAB DBILI(LOIN 0.0 - 0.3 mg/dL C) BILIRUBIN,DIRECT 0.1 LAB AP(LOINC) 33 - 136 U/L ALKALINE PHOSPHATASE 57 LAB ALT(LOINC) 10 - 52 U/L ALT 17 Result Comment: Patients treated with Sulfasalazine may generate falsely decreased results for ALT. LAB AST(LOINC) 9 - 39 U/L AST 12 LAB TP(LOINC) 6.4 - 8.2 g/dL Low TOTAL PROTEIN 5.9 Performed By: #### HEPFP #### [facility] [address] [place] [id number] TSH Collected: 03/23/2018 Status: F Source: [facility] 4:19 AM [facility] REPOSITORY TYPE CODE TESTS RESULT OUT OF RANGE REFERENCE UNITS LAB TSH2(LOINC) 0.44 - 3.98 mIU/L TSH 1.56 Result Comment: TSH testing is performed using different testing methodology at [facility] than at other [facility]. Direct result comparisons should only be made within the same method. . Patients receiving more than 5 mg/day of biotin may have interference in test results. A sample should be taken no sooner than eight hours after previous dose. Contact [phone] for additional information. Performed By: #### TSH2 #### [facility] [address] [place] [address] VITAMIN B12 Collected: 03/23/2018 Status: F Source: [facility] 4:19 AM [facility] REPOSITORY TYPE CODE TESTS RESULT OUT OF REFERENCE UNITS RANGE LAB VTB12(LOINC 211 - 911 pg/mL ) High VITAMIN B12 1158 Performed By: #### VTB12 #### [facility] [address] [place] [id number] FOLATE, SERUM Collected: 03/23/2018 Status: F Source: [facility] 4:19 AM [facility] REPOSITORY TYPE CODE TESTS RESULT OUT OF RANGE REFERENCE UNITS LAB FOLA2(LOINC >5.0 ng/mL ) FOLATE, 23.0 SERUM Result Comment: Patients receiving more than 5 mg/day of biotin may have interference in test results. A sample should be taken no sooner than eight hours after previous dose. Contact [phone] for additional information. Performed By: #### FOLA2 #### [facility] [address] [place] [address] GLUCOSE-POCT Collected: 03/23/2018 Status: F Source: [facility] 3:44 AM [facility] REPOSITORY TYPE CODE TESTS RESULT OUT OF RANGE REFERENCE UNITS LAB GLUP(LOINC) 74 - 99 mg/dL High 168 GLUCOSE-POCT Performed By: #### GLUPO #### [facility] [address] [place] [address] GLUCOSE-POCT Collected: 03/23/2018 Status: F Source: [facility] 12:24 AM [facility] REPOSITORY TYPE CODE TESTS RESULT OUT OF RANGE REFERENCE UNITS LAB GLUP(LOINC) 74 - 99 mg/dL High 143 GLUCOSE-POCT Performed By: #### GLUPO #### [facility] [address] [place] [address] GLUCOSE-POCT Collected: 03/22/2018 Status: F Source: [facility] 8:56 PM HOSPITALS REPOSITORY TYPE CODE TESTS RESULT OUT OF RANGE REFERENCE UNITS LAB GLUP(LOINC) 74 - 99 mg/dL High 152 GLUCOSE-POCT Performed By: #### GLUPO #### [facility] [address] [place] [address] TRANSFER/OFF SERVICE Observed: 03/22/2018 Status: UNK Source: [facility] NOTE 5:52 PM HOSPITALS REPOSITORY Subjective: Hospital Course: Hospital Course: Mr Bermudez is a 67 y/o male with PMH of HTN, type II DM, COPD, left lung resection ( for unclear reasons), CYNTHIA refuses treatment, and meningioma s/p craniotomy with resection 2013 (at [facility]). Admitted 02/10 for repeat surgical resection of meningioma. 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 Postop course complicated by dysphagia, brainstem infarction and hypoxia concerning for aspiration PNA. Sputum grew MRSA. Seen by ENT for dysphagia, and flexible laryngoscopy showed generalized pharyngeal weakness with gross aspiration. PEG was placed on 02/21/18 with EGD at that time noting grade D esophagitis. On 02/24/18 neurosurgery performed lumbar puncture that was negative. Was in step down for 2 days and then transferred to medicine service on 03/02. He was continued on Vancomycin until 03/04, when ID was consulted for a persistent leukocytosis, up to 23K, they recommended stopping the vancomycin and starting linezolid. CT chest 03/04 showed significant worsening of now severe bronchial and bronchiolar wall thickening, worsening small airway disease, tree in bud changes, infectious bronchiolitis and likely aspiration. Head CT showed left occipital craniectomy and cranioplasty with associated pseudomeningocele and cortical resection defect at the lateral left cerebellum, mild cortical volume loss and slight ventricular dilatation. C. Diff PCR negative. Leukocytosis resolved with switching to Linezolid, with stop date 03/13. During the infectious work up an ultrasound duplex was completed of the BUE which revealed a left basilic occlusive thrombosis adjacent to the midline. No anticoagulation indicated for this, line was removed. New Midline in RUE placed 03/14. Brain MRI repeated 03/07, showing new irregular enhancement within the brainstem suggest evolving subacute infarction within the brainstem with the possibility of a minimal amount of superimposed more acute infarction (compared to initial MRI 02/10. On 03/12 O2 needs increased to NRB mask. CXR showed left chest complete opacified and CT chest 03/13 was negative for PE and revealed complete atelectasis of left lung. He was transferred to the MICU 03/13. Goals of care established no intubation but aggressive measures to reexpand lung. Attempted to utilize NIPPV but pt did not tolerate, refusing care and mask, tried nasal mask and that was not tolerated either. IPV, vest therapy, and NT suction did reexpand the lung by 03/16 but then it partially (LLL) recollapsed 03/17. Over the last 3 days his lung has remained expanded and O2 weaned to room air. MICU team met with family, the Cyber Software Engineer (had been contacted by family), and MICU team and goals of care established further. He will go only to SDU where pulmonary needs can be met, then from there to LTACH for ongoing care. Family was to select a facility over this past weekend. SDU course He is now transferred to Step Down. Upon arrival patient was sleeping, mildly arousable. He was on room air, having episodes of apnea with POx drop to 87% during apneic episodes. RT called to place patient on CPAP. After he was placed on CPAP (auto pap as per previous MICU orderers) POx improved to upper 90s. During the day, pt continue to be drowsy, unable to assess LOC due to level drowsiness, grimacing to painful stimulation. Patient was kept on auto CPAP.Chest Xray order this morning 03/22 with improvement compared to 03/21 Cxray. ABG showed 7.48/37/74/98 HCO3 (27.4). Repeat VBG 7.41/46/36/HCo3 29.2 Code Bat called by Dr Ramirez. Head CT scan done w/o new acute findings. Per neuro stroke likely metabolic encephalopathy. will order Brain MRI w/o contrast Hold melatonin and Risperidone, narcotics continue O2 via NC 2L and CPAP at night oxygenation support ABG as needed continue treatement for PSA PNA with levaquin (start on 03/21) Transfer to MICU for higher level of care Objective Data: Objective Information: Objective Information: ---- Intake and Output ----- Mn/Dy/[facility] Mar 22, 2018 2:00 [id number] Mar 22, 2018 6:00 [id number] Mar 21, 2018 10:00 [id number] The Intake and Output Totals for the last 24 hours are: IntakeOutputNet [id number] Physical Exam: Constitutional: pt noncooperative, noted right sided weakness upper and lower, + dysarthria, pt combative with frequent reassessment but drowsy without stimulation Eyes: pupils equal reactive to light, EOMI with spontaneous eye movements. No nystagmus. ENMT: dry mucous membrane Head/Neck: nc/at Respiratory/Thorax: clear lung sounds, diminished BB good lung expansion no wheezing rales or rhonchi Cardiovascular: RRR s1/s2 no s3/s4 no gmr +2 radial and dp Gastrointestinal: abd soft nontender bsx 4 peg tube Genitourinary: flynn, yellow urine Musculoskeletal: weakness noted on right upper and lower side, noncooperative to fully assess ROM Neurological: combative disoriented to time place or name, drowsy without frequent reassessment, unable to fully assess LOC due to noncooperative Skin: dry + trace edema Medications: Medications: Continuous Medications No continuous medications are active Scheduled Medications 1. Atorvastatin: 40 mg Oral Daily 2. Budesonide 0.5 mg/ 2 mL Nebulizer Soln: 2 mL Inhalation Every 12 Hours 3. Docusate 50 mg - Senna 8.6 m tablet(s) Oral 2 Times a Day 4. Enoxaparin SubCutaneous: 40 mg SubCutaneous Every 24 Hours 5. Esomeprazole Oral Packet: 40 mg PEG Tube 2 Times a Day 6. Insulin Glargine (Lantus) Injectable: 30 unit(s) SubCutaneous Every 24 Hours 7. Insulin Lispro Mild Corrective Scale: unit(s) SubCutaneous Every 4 Hours 8. levoFLOXacin 750 mg IVPB/ Premix 150 mL: 150 mL IntraVenous Piggyback Every 24 Hours 9. Nicotine 7 mg/ 24 hour TransDermal: 1 patch TransDermal Every 24 Hours 10. Nystatin Oral Liquid: [id number] unit(s) Oral Every 6 Hours 11. Petrolatum Topical: 1 application(s) Topical 2 Times a Day 12. Saliva Substitute: 5 mL Oral 4 Times a Day 13. Silodosin (NON - Formulary): 8 mg NasoGastric Tube Daily 14. Simethicone Oral Liquid Drops: 80 mg Oral 4 Times a Day After Meals 15. Sodium Chloride 0.9% Injectable Flush: 10 mL IntraVenous Flush Every 12 Hours 16. Sodium Chloride 0.9% Injectable Flush: 10 mL IntraVenous Flush Every 12 Hours 17. Sodium Chloride 3% Nebulizer Soln: 3 mL Inhalation Every 6 Hours 18. Valproic Acid (Depakene) Oral Liquid: 250 mg PEG Tube Every 12 Hours PRN Medications 1. Acetaminophen: 650 mg Oral Every 6 Hours 2. Albuterol 2.5 mg/ 3 mL Nebulizer Soln: 3 mL Inhalation Every 2 Hours 3. Bisacodyl Rectal: 10 mg Rectal Daily 4. Dextrose 50% in Water Injectable: 25 gram(s) IntraVenous Push Every 15 Minutes 5. Fleet Adult (Sodium Phosphate) Rectal: 1 enema Rectal Daily 6. Glucagon Injectable: 1 mg IntraMuscular Every 15 Minutes 7. Heparin Flush 10 unit/ mL PF Injectable: 5 mL IntraVenous Flush Every 12 Hours 8. Heparin Flush 10 unit/ mL PF Injectable PRN: 5 mL IntraVenous Flush According to Flush Policy 9. Heparin Flush 10 unit/ mL PF Injectable PRN: 5 mL IntraVenous Flush According to Flush Policy 10. Ondansetron Injectable: 4 mg IntraVenous Push Every 6 Hours 11. Polyethylene Glycol: 17 gram(s) Oral Daily 12. Sodium Chloride 0.9% Injectable Flush PRN: 10 mL IntraVenous Flush According to Flush Policy 13. Sodium Chloride 0.9% Injectable Flush PRN: 20 mL IntraVenous Flush According to Flush Policy Currently Suspended Medications 1. Melatonin: 3 mg Oral At Bedtime 2. risperiDONE: 2 mg Oral At Bedtime Recent Lab Results: Results: I have reviewed these laboratory results: Glucose_POCT Trending View [id number] 17:50:00 22-Mar-2018 11:48:00 22-Mar-2018 08:17:00 22-Mar-2018 03:41:00 Glucose-IBOH243 H 203 H 210 H 153 H Urinalysis 22-Mar-2018 16:23:00 ResultValue Color, Urine YELLOW Reference Range: STRAW,YELLOW Appearance, Urine CLEAR Specific [place], Urine 1.015 pH, Urine 8.0 Protein, Urine 30 (1+) A Glucose, Urine NEGATIVE Blood, Urine NEGATIVE Ketones, Urine NEGATIVE Bilirubin, Urine NEGATIVE Urobilinogen, Urine <2.0 Nitrite, Urine NEGATIVE Leukocyte Esterase, Urine TRACE A Urinalysis, Microscopic 22-Mar-2018 16:23:00 ResultValue White Cells 9 A Red Blood Cells 3 Mucous 1+ Blood Gas, Arterial 22-Mar-2018 10:04:00 ResultValue pH, Arterial 7.48 H pCO2, Arterial 37 L pO2, Arterial 74 L Patient-Temperature 37.0 SO2, Arterial 98 Base Excess-Blood 4.0 H Bicarbonate, Calculated, Arterial 27.6 H Complete Blood Count + Differential 22-Mar-2018 04:02:00 ResultValue White Blood Cell Count 16.7 H Nucleated Erythrocyte Count 0.0 Red Blood Cell Count 4.01 L HGB 11.9 L HCT 38.0 L MCV 95 MCHC 31.3 L PLT 246 RDW-CV 18.0 H Immature Granulocytes % 8.6 Differential Comment SEE MANUAL DIFF Renal Function Panel 22-Mar-2018 04:02:00 ResultValue Glucose, Serum 125 H NA 132 L K 4.9 CL 97 L Bicarbonate, Serum 28 Anion Gap, Serum 12 BUN 32 H CREAT 0.75 GFR-Non >60 GFR- >60 Calcium, Serum 9.4 Phosphorus, Serum 3.1 ALB 2.8 L RBC Morphology 22-Mar-2018 04:02:00 ResultValue Red Blood Cell Morphology See Below Polychromasia Mild Manual Differential Panel 22-Mar-2018 04:02:00 ResultValue % Seg Neutrophil 62.0 % Band Neutrophil 1.0 % Lymphocyte 20.0 % Monocyte 6.0 % Eosinophil 2.0 % Basophil 2.0 % Lymph-Atypical 1.0 % Myelocyte 6.0 Absolute Neutrophil Count (ANC) 10.52 H Seg Neutrophil Count 10.35 H Band Neutrophil Count 0.17 Lymphocyte, Count 3.34 Monocyte, Count 1.00 Eosinophil, Count 0.33 Basophil, Count 0.33 H Lymph Atypical, Count 0.17 Myelocyte, Count 1.00 A Radiology Results: Results: Conclusion: Electrocardiogram 12 Lead [Mar 22 2018 4:44PM] Impression: Redemonstration of postoperative changes compatible with a left retrosigmoid craniectomy and cranioplasty. 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 The hypodense extra-axial collection deep to the cranioplasty in the posterior fossa is similar from the previous examination. Suspected lacunar infarcts of the basal ganglia and right thalamus/posterior limb of the internal capsule. MRI with diffusion-weighted imaging would be a more sensitive means of evaluating for acute ischemic injury. There are alsononspecific white matter changes thought to most likely reflect small-vessel ischemic disease in a patient of this age. Diffuse parenchymal volume loss. CT Head without Contrast [Mar 22 2018 4:37PM] Impression: 1. Left basilar pleural effusion. Residual left basilar atelectasis and follow-up with any concern underlying infiltrate or pneumonia. Xray Chest 1 View [Mar 22 2018 7:51AM] Assessment and Plan: Impression and Plan 1-5: Assessment: 67 year old male patient who is s/p meningioma resection on 02/11 c/b L brainstem infarction, dysphagia and dysarthria, hypoxemic respiratory failure (treated for MRSA) now undergoing treatment for PSAG. Transfer to SDU on 03/22, pt with AMS not following commands, grimacing to painful stimulation only. Neuro: s/p meningioma resection on 02/11 c/b L brainstem infarction, dysphagia and dysarthria. Pt with AMS this morning, unable to assess fully LOC due to unable to communicate with staffing. Likely delirium due to prolong hospitalization, undergoing infection treatment. Code BAT called by Dr Ramierz due to noted AMS. - per neuro stroke likely metabolic encephalopathy - cont Valproid Acid, Hold risperidone and melatonin - holding home Trazodone - PT/OT/MANAGER PROCESS IMPROVEMENT following - NSG and Neuro stroke following - order CT head w/o contrast - per neuro w/o any acute findings - per neuro recs: continue current therapy, hold sedatives and repeat MRI Brain if mentals does not improves by tomorrow - MRI brain order (per family request), okay per SDU attending Pulm: Hx of COPD. Acute hypoxia respiratory failure 2/2 Treated for MRSA PNA. Now undergoing treatment for PSAG pneumonia. Pt with AMS upon arrival to SDU - ABG obtained w/o any CO2 retention (7.48/37/74/98/27.4), repeat VBG 7.41/46/36/29.2) - cont Levaquin possible 7 day coverage (start on 03/21) - cont budesonide, albuterol prn - repeat ABG prn - f/u chest xray from this morning (improvement of bilateral atelectasis) - will continue auto CPAP and NC 2-3L during the day (while off CPAP) ID: Leukocytosis improving, remains afebrile. WBC 16.7 today - sputum cx 02/24 grew MRSA - Treated for MRSA PNA (Vanco 02/17-02/22, 02/25-03/04) - Abx: Kvng (02/24-02/28) - continue treatment Levaquin for PSA PNA per sputum cx 03/21 (finalized) Cardiac: hx of HTN, remains HD stable -holding home amlodipine, HCTZ and Lisinopril -cont Statin FEN/GI: Severe dysphagia 2/2 L brainstem infarction.s/p Peg tube 02/21. Tolerating tube feeds - cont bowel regimen - s/p EGD 02/21 showing LA grade D esophagitis - cont PPI twice a day x 3 months - Replete electrolytes as needed - daily RFP Renal: no issues Endo: IDDM - cont Lantus 30 units (40 units home dose) - SSI q6hrs - holding home 70/30 PPX: cont lovenox and scds DNAR/DNI lines: midline - pt's nephew at bedside updated by SDU team DIspo:Transfer to MICU for higher level of care Plan for discharge to LTACH from either SDU or ICU. A and P discussed with Dr Gamino Signature: Signature: Signature: Pager # Electronic Signatures: Brittany Cool ([employer] OPERATOR-GROUP MANAGER) (Signed 22-Mar-2018 18:09) Authored: Subjective, Objective Data, Assessment and Plan, Signature, Signature/Cosignature/Attestation Last Updated: 22-Mar-2018 18:09 by Brittany Cool ([employer] OPERATOR-GROUP MANAGER) GLUCOSE-POCT Collected: 03/22/2018 Status: F Source: [facility] 5:50 [facility] REPOSITORY TYPE CODE TESTS RESULT OUT OF RANGE REFERENCE UNITS LAB GLUP(LOINC) 74 - 99 mg/dL High 117 GLUCOSE-POCT Performed By: #### GLUPO #### [facility] [address] [place] [id number] URINALYSIS Collected: 03/22/2018 Status: F Source: [facility] 4:23 [facility] REPOSITORY TYPE CODE TESTS RESULT OUT OF RANGE REFERENCE UNITS LAB COLU(LOIN STRAW,YELLOW C) COLOR YELLOW LAB APPRU(SHAKEEL CLEAR NC) APPEARANCE CLEAR LAB SPGRU(SHAKEEL 1.005 - 1.035 NC) SPECIFIC GRAVITY 1.015 LAB CAMMY(LOINC 5.0 - 8.0 ) pH 8.0 LAB PROTU(SHAKEEL NEGATIVE mg/dL NC) PROTEIN Abnormal 30 (1+) LAB GLUCU(SHAKEEL NEGATIVE mg/dL NC) GLUCOSE NEGATIVE LAB BLDU(LOIN NEGATIVE C) BLOOD NEGATIVE LAB KETU(LOIN NEGATIVE mg/dL C) KETONES NEGATIVE LAB BILIU(SHAKEEL NEGATIVE NC) BILIRUBIN NEGATIVE LAB UROU2(SHAKEEL 0.0 - 1.9 mg/dL NC) UROBILINOGEN <2.0 LAB NITRU(SHAKEEL NEGATIVE NC) NITRITE NEGATIVE LAB LEUKU(SHAKEEL NEGATIVE NC) LEUKOCYTE Abnormal ESTERASE TRACE Performed By: #### UA #### [facility] [address] [place] [id number] UA MICROSCOPIC Collected: 03/22/2018 Status: F Source: [facility] 4:23 [facility] REPOSITORY TYPE CODE TESTS RESULT OUT OF RANGE REFERENCE UNITS LAB WBCUR(LOINC 0-5 /HPF ) Abnormal WBC 9 LAB RBCUR(LOINC 0-5 /HPF ) RBC 3 LAB MUCOU(LOINC /LPF ) MUCUS 1+ Performed By: #### UAMIC #### [facility] [address] [place] [address] URINE Observed: 03/22/2018 Status: F Source: [facility] CULTURE,BACTERIAL 4:23 [facility] REPOSITORY PATIENT: DIPESH BERMUDEZ LOCATION: 03 T30 BILL#: [id number] : 54 AGE: SEX: M ORDERED BY: BRITTANY COOL SOURCE: URINE COLLECTED: 03/22/18 16:23 ANTIBIOTICS AT [facility].: RECEIVED : 03/22/18 17:50 SITE: [facility] URINE CULTURE,BACTERIAL FINAL 03/23/18 10:27 NO GROWTH Performed By: #### URINC #### [facility] [address] [place] [address] CONSULT - NEURO-STROKE Observed: 03/22/2018 Status: COMPLETED Source: [facility] 3:30 [facility] REPOSITORY Service: Service: Service: Stroke Consult: Consult requested by (Attending Name): Dr. Gamino Reason: BAT History of Present Illness: HPI: History per chart review and talking to pt's caregivers as he is a poor historian. 67 year old male with history significant for HTN, type II DM, COPD, 2/3 of left lung resected for unclear reasons pt relates due to rib poking into lung, CYNTHIA refuses treatment, and meningioma s/p craniotomy with resection 2013 (done at [facility]). He was admitted 02/10 for repeat surgical resection of meningioma as angiogram prior to admit had no targets for embolization. 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 Postoperative course complicated by dysphagia, brainstem infarction as well as hypoxia concerning for aspiration pneumonia necessitating transfer to ICU. Sputum grew MRSA. He ended up failing modified barium swallow by speech therapy. ENT was consulted and performed flexible laryngoscopy that noted generalized pharyngeal weakness with gross aspiration. GI was consulted and placed PEG tube on 02/21/18 with EGD at that time also noting grade D esophagitis. On 02/24/18 neurosurgery performed lumbar puncture that was negative. Transferred from step down unit to regular nursing floor for further management by medicine service 03/02. On the floor he was continued on vancomycin until 03/04, when ID was consulted for a persistent leukocytosis, up to 23K, they recommended stopping the vancomycin and starting linezolid. CT chest 03/04 showed significant worsening of now severe bronchial and bronchiolar wall thickening, worsening small airway disease, tree in bud changes, infectious bronchiolitis and likely aspiration. Head CT the same day showed left occipital craniectomy and cranioplasty with associated pseudomeningocele and cortical resection defect at the lateral left cerebellum, mild cortical volume loss and slight ventricular dilatation. C. Diff PCR negative. Leukocytosis resolved with switching the antibiotic to linezolid, stop date for antibiotic will be 03/13. During the infectious work up an ultrasound duplex was completed of the BUE which revealed a left basilic occlusive thrombosis adjacent to the midline. No anticoagulation is indicated for this, line was removed. New Midline in RUE placed 03/14. An MRI of the brain was repeated 03/07, it did show showing new irregular enhancement within the brainstem suggest evolving subacute infarction within the brainstem with the possibility of a minimal amount of superimposed more acute infarction (compared to initial MRI 02/10. On 03/12 O2 needs increased to NRB mask. CXR showed left chest complete opacified and CT chest 03/13 was negative for PE and revealed complete atelectasis of left lung. He was transferred to the MICU 03/13. Goals of care established no intubation but aggressive measures to reexpand lung. Attempted to utilize NIPPV but pt did not tolerate, refusing care and mask, tried nasal mask and that was not tolerated either. IPV, vest therapy, and NT suction did reexpand the lung by 03/16 but then it partially (LLL) recollasped 03/17. Over the last 3 days his lung has remained expanded and O2 weaned to room air. We met with family, the Cyber Software Engineer (had been contacted by family), and MICU team and goals of care established further. He will go only to SDU where pulmonary needs can be met, then from there to LTACH for ongoing care. Family was to select a facility over this past weekend. on 03/22 a BAT was called at 2:30pm, unclear who initiated it, it may have been initiated by pt's nephew who was in the room. Per the nephew patient is more confused today than he was yesterday, and this is why it was called. Per the nephew the patient was standing on Wednesday and now is unable to get out of bed. Per review of rehab notes patient was max assist to stand on Sunday 03/18 so it is unclear if there is a change from then until now. The pt's HANDLE SANDER OPERATOR was not aware a bat was called until after it happened, per the HANDLE SANDER OPERATOR the patient arrived from MICU at around 3am in current condition, minimally cooperative, and has actually IMPROVED through the course of the day. LKN is unclear but is no later than 3am when he arrived to [facility] stepdown unit. Taken to CTH where there was no intracranial bleed and no signs of early ischemic stroke. Taken back to SDU. ROS: incomplete due to lack of cooperation from patient FamHx: incomplete due to lack of cooperation from patient PMHx: as above Social: prior everyday smoker, no alcohol or illicit drugs reported All: Codeine Sulfate, Penicillin, Insulin Notably, was just re-started on risperdal last night, got single dose 2mg. Home Medications: -Metformin 1000mg BID -Amlodipine 10mg daily -Lisinopril 30mg daily -Albuterol PRN -HCTZ 25mg daily -Mometasone -Atorvastatin 40mg daily -Divalproex ER 500mg daily -Insulin Lantus 40u qhs -Novolog 8u TID -Melatonin qhs -Trazodone 100mg qhs -Risperdal 3mg qhs Allergies: Codeine Sulfate: Unknown penicillin: Unknown insulin: Unknown Intolerances: Aspir 81: GI Upset Objective: Objective Information: T PRBPSpO2 [id number]/7897% Date/Time03/22 12: 14: 14: 14: 14:00 Range(36.3C - 37.4C ) (80 - 117 ) (12 - 25 ) (94 - 150 )/ (39 - 91 ) (90% - 100% ) As of 21-Mar-2018 18:00:00, patient is on 4 L/min of oxygen via CPAP. Highest temp of 37.4 C was recorded at 03/21 20:00 General Neurology: General Neurology Extensive Exam: GENERAL APPEARANCE: No distress, alert, minimally interactive CARDIOVASCULAR: Distant heart sounds, but is RRR at least. unable to test carotid pulses though attmepted, due to patient lack of cooperation. MENTAL STATE: Refusing to answer any questions, says no no away and you are a retard. He does not say his name and does not nod to name for choices. Does not answer any other orientation questions. Recent and remote memory is not assessable due to lack of cooperation. Attention span and concentration were not normal. Language testing: he follows some commands but unable to assess in detail. Clarke snot name, does not open his eyes to look at stroke card, does not tell me how many fingers I am holding up. He clarke smake eye contact to say you are a retard. General fund of knowledge was not intact OPHTHALMOSCOPIC: The ophthalmoscopic exam attempted but unable to visualize due to perhaps cataracts or corrective error, complicated by lack of cooperation CRANIAL NERVES: CN 2 Does not reliably BTT from either side, does not count fingers due to lack of cooperation CN 3, 4, 6 Pupils round, 2 mm in diameter, equally reactive to light. Lids symmetric; no ptosis. EOMI horizontally by spontaneous eye movements. No nystagmus. CN 5 Unable to assess due to lack of cooperation CN 7 right lower face droop CN 8 Follows some verbal commands CN 9 Unable to assess due to lack of cooperation CN 11 Unable to assess due to lack of cooperation CN 12 Unable to assess due to lack of cooperation MOTOR: LUE drift LLE no EAG RUE no EAG RLE no EAG Flaccid tone on right Normal on left Not following ocmmands for formal strenght testing, but on passive testing his is 5/5 in LUE REFLEXES: Reflexes were normal. RIGHT UE LEFT UE BR:2 BR: Biceps:2 Biceps: Triceps:2 Triceps: unable to test in LUE due to lack of cooperation RIGHT LLE LEFT LLE Knee:0 Knee:0 Ankle:0 Ankle:0 Babinski: toes mute bilat SENSORY: Intact to LT in RUE and RLE Possible loss of LT in LUE and LLE versus lack of cooperation Brisk withdrawal to nox stim in all limbs except RLE and yells ouch stop that and you're a retard COORDINATION: Unable to assess due to lack of cooperation GAIT: Deferred due to lack of patient cooperation and recent documentatoin that he is max assist Recent Lab Results: Results: I have reviewed these laboratory results: Glucose_POCT Trending View [id number] 11:48:00 22-Mar-2018 08:17:00 22-Mar-2018 03:41:00 21-Mar-2018 23:43:00 21-Mar-2018 19:35:00 21-Mar-2018 15:28:00 21-Mar-2018 11:38:00 21-Mar-2018 10:15:00 21-Mar-2018 01:47:00 20-Mar-2018 16:05:00 20-Mar-2018 11:38:00 20-Mar-2018 07:42:00 20-Mar-2018 04:42:00 Glucose-UPUP869 H 210 H 153 H 171 H 164 H 167 H 184 H 231 H 178 H 149 H 167 H 172 H 137 H Blood Gas, Venous 22-Mar-2018 10:37:00 ResultValue pH, Venous 7.41 pCO2, Venous 46 pO2, Venous 36 Patient-Temperature 37.0 SO2, Venous 73 Base Excess-Blood 4.0 H Bicarbonate, Calculated, Venous 29.2 H Blood Gas, Arterial 22-Mar-2018 10:04:00 ResultValue pH, Arterial 7.48 H pCO2, Arterial 37 L pO2, Arterial 74 L Patient-Temperature 37.0 SO2, Arterial 98 Base Excess-Blood 4.0 H Bicarbonate, Calculated, Arterial 27.6 H Complete Blood Count + Differential Trending View [id number] 04:02:00 21-Mar-2018 01:53:00 White Blood Cell Count16.7 H 18.3 H Nucleated Erythrocyte Count0.0 0.1 Red Blood Cell Count4.01 L 3.89 L HGB11.9 L 11.5 L HCT38.0 L 35.4 L MCV95 91 MCHC31.3 L 32.5 GTH548 228 RDW-CV18.0 H 17.3 H Immature Granulocytes %8.6 5.4 Differential CommentSEE MANUAL DIFF SEE MANUAL DIFF Renal Function Panel Trending View [id number] 04:02:00 21-Mar-2018 01:53:00 Glucose, Tkywl339 H 182 H NA132 L 134 L K4.9 4.9 CL97 L 99 Bicarbonate, Serum28 28 Anion Gap, Serum12 12 BUN32 H 30 H CREAT0.75 0.80 GFR-Non >60 >60 GFR->60 >60 Calcium, Serum9.4 9.4 Phosphorus, Serum3.1 2.5 ALB2.8 L 2.7 L RBC Morphology Trending View [id number] 04:02:00 21-Mar-2018 01:53:00 Red Blood Cell MorphologySee Below See Below PolychromasiaMild Mild Ovalocytes Few Manual Differential Panel Trending View [id number] 04:02:00 21-Mar-2018 01:53:00 % Seg Stufqpvajv22.0 68.0 % Band Neutrophil1.0 1.0 % Ungufqojxf37.0 14.0 % Monocyte6.0 7.0 % Eosinophil2.0 1.0 % Basophil2.0 0.0 % Lymph-Atypical1.0 1.0 % Myelocyte6.0 7.0 Absolute Neutrophil Count (ANC)10.52 H 12.62 H Seg Neutrophil Count10.35 H 12.44 H Band Neutrophil Count0.17 0.18 Lymphocyte, Count3.34 2.56 Monocyte, Count1.00 1.28 H Eosinophil, Count0.33 0.18 Basophil, Count0.33 H 0.00 Lymph Atypical, Count0.17 0.18 Myelocyte, Count1.00 A 1.28 A % Metamyelocyte 1.0 Metamyelocyte, Count 0.18 A Procalcitonin, Serum 21-Mar-2018 01:53:00 ResultValue Procalcitonin, Serum 0.11 A NIH Stroke Scale: Level of Consciousness: 0 = alert LOC Question: 2 = neither correct LOC Commands: 1 = obeys Best Gaze: 0 = normal Visual Field: 0 = no visual loss Facial Paresis: 1 = minor paresis Left Upper Extremity: 1 = drift Right Upper Extremity: 3 = no effort vs gravity Dysarthria: 1 = mild-moderate Left Lower Extremity: 3 = no effort vs gravity Right Lower Extremity: 3 = no effort vs gravity Best Language: 2 = severe aphasia Limb Ataxia: 0 = absent Sensory: 1 = partial loss Neglect: 0 = none NIHSS Score: 18 Modified Luis Scale: Modified Lycoming Scale: 4 = moderate-severe, walks with a person, alone for hours IV tPA Exclusions and Consent: IV tPA Therapy for Acute Ischemic Stroke: Last known well date/time unknown; pt arrived from MICU at around 3am in [facility]. unknown LKW prior to that, per pt's nephew he was better the prior night but unclear exactly how so. CT/MRI was interpreted as it was being performed. Contraindications for IV tPA Therapy: Time from last known well (or stroke onset) is > 4.5 hours. See Other Circumstances for these Contraindications for IV tPA Therapy: *History of prior ischemic stroke < 3 months. Assessment/Recommendations: 67 y/o CM with pmhx meningioma s/p crani and resection in 2013 hospital day 40 for repeat resectoin meningioma for infratentorial tumor, microdisscetion, and lumbar drain placement. Course complicated by brainstem infarction and hypoxia from likely aspiration pneumonia necessitating transfer to ICU, evolution of infarct in 03/07 MRI brain in brainstem, complete left lung atelectasis, patient refusing care, PEG placement, and now a BAT called for confusion, unclear if there is actual change in neuro exam. CTH reviewed, no signs of early ischemic or hemorrhagic stroke. No prior exams by neuro to compare to but exam is notable for lack of cooperation, and right sided weakness and left sided sensory deficit to LT but not nox stim, and possible aphasia with inability to say his own name. Difficult to localize this exam, however patient is not tPA candidate given he is out of the time window, and is a poor mechanical thrombectomy candidate given his comorbidities. High consideration given for metabolic encephalopathy on top of his baseline neuro deficits. his lack of cooperation and refusal to say his own name may be related to encephalopathy and not true aphasia. Notably he had gotten one dose of 2mg risperdal overnight. Recommendations Hold sedating medications Metabolic encephalopathy workup If symptoms do not resolve would consider repeat MRI brain Signature/Cosignature/Attestation: Attending AttestationI saw and evaluated the patient. I personally obtained the gonzalez and critical portions of the history and physical exam or was physically present for gonzalez and critical portions performed by the resident/fellow. I reviewed the resident/fellows documentation and discussed the patient with the resident/fellow. I agree with the resident/fellows medical decision making as documented in the resident/fellows note with the exception/addition of the following: I personally evaluated the patient (as noted in the above attestation) on 22-Mar-2018 Comments/ Additional Findings Late entry: 67 yo M with complex recent medical history was discovered to have decreased mental status since transfer from MICU. Of note, patient was restarted on risperidone 2mg yesterday. 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 Head CT is unremarkable. If patient's mental status does not improve within 24h, can consider MRI brain to r/o any acute pathology. Will follow. Electronic Signatures: Lucas Huitron (Resident)) (Signed 22-Mar-2018 17:02) Authored: Service, History of Present Illness, Allergies, Objective, NIH Stroke Scale, Modified Luis Scale, IV tPA Exclusions and Consent, Assessment/Recommendations, Signature/Cosignature/Attestation Mark Kennedy) (Signed 23-Mar-2018 09:23) Authored: Signature/Cosignature/Attestation Co-Signer: Objective, Assessment/Recommendations, Signature/Cosignature/Attestation Last Updated: 23-Mar-2018 09:23 by Mark Kennedy) NR CT HEAD WO Observed: 03/22/2018 Status: F Source: [facility] 3:00 PM [facility]PITALS REPOSITORY Patient Name: DIPESH BERMUDEZ STUDY: CT HEAD WO CONTRAST; 03/22/2018 3:00 pm INDICATION: Signs/Symptoms: AMS, Lie Flat: Yes. COMPARISON: March 04, 2018 ACCESSION NUMBER(S): [id number] ORDERING CLINICIAN: BRITTANY COOL TECHNIQUE: Noncontrast axial CT scan of head was performed. Angled reformats in brain and bone windows were generated. The images were reviewed in bone, brain, blood and soft tissue windows. FINDINGS: There are again postoperative changes compatible with a left retro sigmoid craniectomy and cranioplasty. There is also a lateral left craniectomy/cranioplasty. There is an extra-axial collection in the posterior fossa deep to the cranioplasty that remains hypodense and measures up to approximately 1.5 cm in thickness overlying the left cerebellar hemisphere. There is again an extracranial collection overlying the cranioplasty and extending into the upper neck. The inferior component is incompletely included on the obtained [id number] and measures up to approximately 4.8 by 4.9 cm in axial dimension compared with 4.3 by 4.6 cm. The component superficial to and surrounding the cranioplasty has also increased in size currently measuring up to approximately 5.2 cm in greatest axial dimension. There is again prominence of ventricles and sulci compatible with diffuse parenchymal volume loss. There are subtle areas of diminished attenuation in the subcortical and periventricular white matter. There are again ovoid hypodensities within the basal ganglia likely corresponding to lacunar infarcts. There is also a subtle hypodensity within the right thalamus/posterior limb of the internal capsule. There are calcifications of the carotid siphons. There is no evidence of acute intracranial hemorrhage. No mass effect or midline shift is identified. There is polypoid mucosal thickening versus retention cysts or polyps in the left sphenoid sinus. There is opacification of a left ethmoid air cell. The mastoid air cells are clear. There is asymmetric soft tissue attenuation in the left external auditory canal, possibly corresponding to cerumen or debris. Correlation with direct visualization is recommended. IMPRESSION: Redemonstration of postoperative changes compatible with a left retrosigmoid craniectomy and cranioplasty. 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 The hypodense extra-axial collection deep to the cranioplasty in the posterior fossa is similar from the previous examination. Suspected lacunar infarcts of the basal ganglia and right thalamus/posterior limb of the internal capsule. MRI with diffusion-weighted imaging would be a more sensitive means of evaluating for acute ischemic injury. There are also nonspecific white matter changes thought to most likely reflect small-vessel ischemic disease in a patient of this age. Diffuse parenchymal volume loss. Electronically signed by: PAO HIGH DO GLUCOSE-POCT Collected: 03/22/2018 Status: F Source: [facility] 11:48 AM [facility] REPOSITORY TYPE CODE TESTS RESULT OUT OF RANGE REFERENCE UNITS LAB GLUP(LOINC) 74 - 99 mg/dL High 203 GLUCOSE-POCT Performed By: #### GLUPO #### [facility] [address] [place] [address] VENOUS BLOOD GAS Collected: 03/22/2018 Status: F Source: ID[place] 10:37 AM [facility] REPOSITORY TYPE CODE TESTS RESULT OUT OF REFERENCE UNITS RANGE LAB PHVEN(LOIN 7.33 - 7.43 C) pH 7.41 LAB PCO2V(LOIN 41 - 51 mmHg C) PCO2 46 LAB PO2V(LOINC 35 - 45 mmHg ) PO2 36 LAB TEMP(LOINC degrees C ) PATIENT TEMPERATURE 37.0 Result Comment: NOTE: PATIENT RESULTS ARE NOT CORRECTED FOR TEMPERATURE. LAB SO2%V(LOINC) 45 - 75 % SO2 73 LAB BSEXB(LOINC) -2.0 - mmol/L 3.0 BASE High EXCESS-BLOOD 4.0 LAB BICVN(LOINC) 22.0 - mmol/L 26.0 BICARB, High CALCULATED 29.2 Performed By: #### [email or web address] #### [facility] [address] [place] [address] ARTERIAL BLOOD GAS Collected: 03/22/2018 Status: F Source: [facility] 10:04 AM [facility] TYPE CODE TESTS RESULT OUT OF REFERENCE UNITS RANGE LAB PHART(LOIN 7.38 - 7.42 C) pH High 7.48 LAB PCO2A(LOIN 38 - 42 mmHg C) PCO2 Low 37 LAB PO2A(LOINC 85 - 95 mmHg ) PO2 Low 74 LAB TEMP(LOINC degrees C ) PATIENT TEMPERATURE 37.0 Result Comment: NOTE: PATIENT RESULTS ARE NOT CORRECTED FOR TEMPERATURE. LAB SO2%A(LOINC) 94 - 100 % SO2 98 LAB BSEXB(LOINC) -2.0 - 3.0 mmol/L BASE High EXCESS-BLOOD 4.0 LAB BICAR(LOINC) 22.0 - mmol/L 26.0 BICARB, High CALCULATED 27.6 Performed By: #### [email or web address] #### [facility] [address] [place] [address] ARTERIAL BLOOD GAS Collected: 03/22/2018 Status: CANCELLED Source: [facility] 9:49 AM [facility] Order Comment: TEST ARTERIAL BLOOD GAS WAS CANCELLED, 03/22/2018 09:50 SYRINGE NOT LABELED NOTIFIED MARTI CARLISLE/JANIYA. TYPE CODE TESTS RESULT OUT OF REFERENCE UNITS RANGE LAB PHART(LOIN C) pH Canceled LAB PCO2A(LOIN C) PCO2 Canceled LAB PO2A(LOINC ) PO2 Canceled LAB TEMP(LOINC ) PATIENT TEMPERATURE Canceled Result Comment: NOTE: PATIENT RESULTS ARE NOT CORRECTED FOR TEMPERATURE. LAB FIO2(LOINC) % FIO2 Canceled LAB BSEXB(LOINC) BASE EXCESS-BLOOD Canceled LAB BICAR(LOINC) BICARB, CALCULATED Canceled LAB APPAR(LOINC) APPARATUS Canceled LAB VMODE(LOINC) VENTILATOR MODE Canceled LAB VRATE(LOINC) VENTILATOR RATE Canceled LAB TLVOL(LOINC) TIDAL VOLUME Canceled LAB SPTLV(LOINC) SPONTANEOUS TIDAL VOLUME Canceled LAB TMVOL(LOINC) TOTAL MINUTE VOLUME Canceled LAB PEEP(LOINC) PEEP CMH2O Canceled LAB BPM(LOINC) FREQUENCY (BPM) Canceled LAB PRESS(LOINC) PRESSURE SUPPORT Canceled LAB PEAKP(LOINC) PEAK PRESSURE Canceled LAB IERAT(LOINC) INSPIRATORY/EXPIRA Canceled TORY RATIO LAB HPEEP(LOINC) HIGH PEEP CMH2O Canceled LAB LPEEP(LOINC) LOW PEEP CMH2O Canceled LAB ITIME(LOINC) INSPIRATORY TIME Canceled LAB CPAP(LOINC) CPAP Canceled LAB IPAP(LOINC) IPAP CMH2O Canceled LAB EPAP(LOINC) EPAP CMH2O Canceled LAB VLPM(LOINC) VAPOTHERM LPM Canceled Performed By: #### [email or web address] #### [facility] [address] [place] [address] GLUCOSE-POCT Collected: 03/22/2018 Status: F Source: [facility] 8:17 AM [facility] REPOSITORY TYPE CODE TESTS RESULT OUT OF RANGE REFERENCE UNITS LAB GLUP(LOINC) 74 - 99 mg/dL High 210 GLUCOSE-POCT Performed By: #### GLUPO #### [facility] [address] [place] [address] DAILY PROGRESS Observed: 03/22/2018 Status: COMPLETED Source: IDABEL NOTE-PULMONOLOGY 7:56 AM [facility] REPOSITORY Service: Pulmonology Subjective Data: DIPESH BERMUDEZ is a 67 year old Male who is Hospital Day # 41 and POD #39 for left retrosigmoid craniotomy for tumor resection. Additional Information: pt transfer from MICU to SDU. This morning pt with AMS not following command, grimacing to painful stimulation. ABG order. Vitals stable. Objective Data: Objective Information: Moshe PRBPSpO2 [id number]% Date/Time03/22 3: 6: 6: 6: 6:00 Range(36.1C - 37.4C ) (80 - 117 ) (12 - 27 ) (104 - 150 )/ (64 - 91 ) (89% - 100% ) As of 21-Mar-2018 18:00:00, patient is on 4 L/min of oxygen via CPAP. Highest temp of 37.4 C was recorded at 03/21 20:00 Weights 03/22 7:00: Weight in kg (Weight (kg)) 87 03/22 7:00: Weight in lbs ((lbs)) 191.9 ---- Intake and Output ----- Mn/Dy/Year TimeIntakeOutputNet Mar 22, 2018 6:00 [id number] Mar 21, 2018 10:00 [id number] Mar 21, 2018 2:00 [id number] The Intake and Output Totals for the last 24 hours are: IntakeOutputNet [id number] Physical Exam: Constitutional: not following command, grimacing to painful stimulation only Eyes: pupils equal reactive ENMT: dry mucous membrane Head/Neck: nc/at Respiratory/Thorax: clear lung sounds, diminished BB good lung expansion no wheezing rales or rhonchi Cardiovascular: RRR s1/s2 no s3/s4 no gmr +2 radial and dp Gastrointestinal: abd soft nontender bsx 4 peg tube Genitourinary: flynn, yellow urine Musculoskeletal: unable to assess due to ams Neurological: unable to assess LOC due to AMS, not following command, pt grimacy to painful stimulation Skin: dry + trace edema Medication: Medications: Continuous Medications No continuous medications are active Scheduled Medications 1. Atorvastatin: 40 mg Oral Daily 2. Budesonide 0.5 mg/ 2 mL Nebulizer Soln: 2 mL Inhalation Every 12 Hours 3. Docusate 50 mg - Senna 8.6 m tablet(s) Oral 2 Times a Day 4. Enoxaparin SubCutaneous: 40 mg SubCutaneous Every 24 Hours 5. Esomeprazole Oral Packet: 40 mg PEG Tube 2 Times a Day 6. Insulin Glargine (Lantus) Injectable: 30 unit(s) SubCutaneous Every 24 Hours 7. Insulin Lispro Mild Corrective Scale: unit(s) SubCutaneous Every 4 Hours 8. levoFLOXacin 750 mg IVPB/ Premix 150 mL: 150 mL IntraVenous Piggyback Every 24 Hours 9. Melatonin: 3 mg Oral At Bedtime 10. Nicotine 7 mg/ 24 hour TransDermal: 1 patch TransDermal Every 24 Hours 11. Nystatin Oral Liquid: 325687 unit(s) Oral Every 6 Hours 12. Petrolatum Topical: 1 application(s) Topical 2 Times a Day 13. risperiDONE: 2 mg Oral At Bedtime 14. Saliva Substitute: 5 mL Oral 4 Times a Day 15. Silodosin (NON - Formulary): 8 mg NasoGastric Tube Daily 16. Simethicone Oral Liquid Drops: 80 mg Oral 4 Times a Day After Meals 17. Sodium Chloride 0.9% Injectable Flush: 10 mL IntraVenous Flush Every 12 Hours 18. Sodium Chloride 0.9% Injectable Flush: 10 mL IntraVenous Flush Every 12 Hours 19. Sodium Chloride 3% Nebulizer Soln: 3 mL Inhalation Every 6 Hours 20. Valproic Acid (Depakene) Oral Liquid: 250 mg PEG Tube Every 12 Hours PRN Medications 1. Acetaminophen: 650 mg Oral Every 6 Hours 2. Albuterol 2.5 mg/ 3 mL Nebulizer Soln: 3 mL Inhalation Every 2 Hours 3. Bisacodyl Rectal: 10 mg Rectal Daily 4. Dextrose 50% in Water Injectable: 25 gram(s) IntraVenous Push Every 15 Minutes 5. Fleet Adult (Sodium Phosphate) Rectal: 1 enema Rectal Daily 6. Glucagon Injectable: 1 mg IntraMuscular Every 15 Minutes 7. Heparin Flush 10 unit/ mL PF Injectable: 5 mL IntraVenous Flush Every 12 Hours 8. Heparin Flush 10 unit/ mL PF Injectable PRN: 5 mL IntraVenous Flush According to Flush Policy 9. Heparin Flush 10 unit/ mL PF Injectable PRN: 5 mL IntraVenous Flush According to Flush Policy 10. Ondansetron Injectable: 4 mg IntraVenous Push Every 6 Hours 11. Polyethylene Glycol: 17 gram(s) Oral Daily 12. Sodium Chloride 0.9% Injectable Flush PRN: 10 mL IntraVenous Flush According to Flush Policy 13. Sodium Chloride 0.9% Injectable Flush PRN: 20 mL IntraVenous Flush According to Flush Policy Recent Lab Results: Results: I have reviewed these laboratory results: Complete Blood Count + Differential 22-Mar-2018 04:02:00 ResultValue White Blood Cell Count 16.7 H Nucleated Erythrocyte Count 0.0 Red Blood Cell Count 4.01 L HGB 11.9 L HCT 38.0 L MCV 95 MCHC 31.3 L PLT 246 RDW-CV 18.0 H Immature Granulocytes % 8.6 Differential Comment SEE MANUAL DIFF Renal Function Panel 22-Mar-2018 04:02:00 ResultValue Glucose, Serum 125 H NA 132 L K 4.9 CL 97 L Bicarbonate, Serum 28 Anion Gap, Serum 12 BUN 32 H CREAT 0.75 GFR-Non >60 GFR- >60 Calcium, Serum 9.4 Phosphorus, Serum 3.1 ALB 2.8 L RBC Morphology 22-Mar-2018 04:02:00 ResultValue Red Blood Cell Morphology See Below Polychromasia Mild Manual Differential Panel 22-Mar-2018 04:02:00 ResultValue % Seg Neutrophil 62.0 % Band Neutrophil 1.0 % Lymphocyte 20.0 % Monocyte 6.0 % Eosinophil 2.0 % Basophil 2.0 % Lymph-Atypical 1.0 % Myelocyte 6.0 Absolute Neutrophil Count (ANC) 10.52 H Seg Neutrophil Count 10.35 H Band Neutrophil Count 0.17 Lymphocyte, Count 3.34 Monocyte, Count 1.00 Eosinophil, Count 0.33 Basophil, Count 0.33 H Lymph Atypical, Count 0.17 Myelocyte, Count 1.00 A Glucose_POCT 22-Mar-2018 03:41:00 ResultValue Glucose-POCT 153 H Radiology Results: Results: Impression: 1. Left basilar pleural effusion. Residual left basilar atelectasis and follow-up with any concern underlying infiltrate or pneumonia. Xray Chest 1 View [Mar 22 2018 7:51AM] Assessment and Plan: Assessment: 67 year old male patient who is s/p meningioma resection on 02/11 c/b L brainstem infarction, dysphagia and dysarthria, hypoxemic respiratory failure (treated for MRSA) now undergoing treatment for PSAG. Transfer to SDU on 03/22, pt with AMS not following commands, grimacing to painful stimulation only. Neuro: s/p meningioma resection on 02/11 c/b L brainstem infarction, dysphagia and dysarthria. Pt with AMS this morning, unable to assess fully LOC due to unable to communicate with staffing. Likely delirium due to prolong hospitalization, undergoing infection treatment - cont Valproid Acid, Hold risperidone - holding home Trazodone - PT/OT/MANAGER PROCESS IMPROVEMENT following - will f/u with neurology team for possible evaluation if imaging needs to be repeated today - order CT head w/o contrast Pulm: Hx of COPD. Acute hypoxia respiratory failure 2/2 Treated for MRSA PNA. Now undergoing treatment for PSAG pneumonia. Pt with AMS upon arrival to SDU - ABG obtained w/o any CO2 retention (7.48/37/74/98/27.4), repeat VBG 7.41/46/36/29.2) - cont Levaquin - cont budesonide, albuterol prn - repeat ABG prn - f/u chest xray from this morning (improvement of bilateral atelectasis) - will continue auto CPAP and NC 2-3L during the day (while off CPAP) ID: Leukocytosis improving, remains afebrile. WBC 16.7 today - sputum cx 02/24 grew MRSA - Treated for MRSA PNA (Vanco 02/17-02/22, 02/25-03/04) - Abx: Kvng (02/24-02/28) Cardiac: hx of HTN, remains HD stable -holding home amlodipine, HCTZ and Lisinopril -cont Statin FEN/GI: Severe dysphagia 2/2 L brainstem infarction.s/p Peg tube 02/21. Tolerating tube feeds - cont bowel regimen - s/p EGD 02/21 showing LA grade D esophagitis - cont PPI twice a day x 3 months - Replete electrolytes as needed - daily RFP Renal: no issues Endo: IDDM - cont Lantus 30 units (40 units home dose) - SSI q6hrs - holding home 70/30 PPX: cont lovenox and scds DNAR/DNI lines: midline - pt's nephew at bedside updated by SDU team DIspo: keep in SDU due to AMS. Plan for discharge to LTACH from either SDU or ICU. A and P discussed with Dr Gamino Signature/Cosignature/Attestation: Attending Only - Shared Visit with Advanced Practice ProviderThis is a shared visit. I have reviewed the Advanced Practice Providers encounter note, approve the Advanced Practice Providers documentation, and provide the following additional information from my personal encounter. Comments/ Additional Findings Patient seen and examined by me during team rounds today. Patient would open eyes to voice and focus, but quickly closed them. He resisted me opening his eyes equally on both sides but would not follow commands to assess neuro exam. Unclear etiology of this change in mentation. Metabolic encephalopathy seems unlikely given labs. Hypoactive delirium is possible, but he had not been having problems with this recently in ICU. Over the course of the day he has woken up and is able to participate in neuro exam with neuro team. We will check head CT, though likely no intervention will be possible if he has another ischemic stroke. I reviewed head CT, which appears unchanged from recent films by my read. Awaiting official report. We will discuss further evaluation with neurology. Bayron Gamino MD Electronic Signatures: Brittany Cool ([employer] OPERATOR-GROUP MANAGER) (Signed 22-Mar-2018 15:29) Authored: Service, Subjective Data, Objective Data, Assessment and Plan, Signature/Cosignature/Attestation Bayron Gamino) (Signed 22-Mar-2018 15:47) Authored: Assessment and Plan, Signature/Cosignature/Attestation Co-Signer: Signature/Cosignature/Attestation Last Updated: 22-Mar-2018 15:47 by Bayron Gamino) TH CHEST 1 VIEW Observed: 03/22/2018 Status: F Source: [facility] 4:59 AM [facility] Patient Name: DIPESH BERMUDEZ STUDY: TH CHEST 1 VIEW; 03/22/2018 4:59 am INDICATION: Signs/Symptoms: hypoxia. COMPARISON: 03/21/2018 ACCESSION NUMBER(S): [id number] ORDERING CLINICIAN: EVELIN HERNADEZ FINDINGS: CARDIOMEDIASTINAL SILHOUETTE: Cardiomediastinal silhouette is stable in size and configuration. Atherosclerotic calcifications are again identified in the aortic arch. LUNGS: Blunting of the left costophrenic angle is identified, consistent with pleural effusion. No sizable pneumothorax or focal consolidation is identified. ABDOMEN: No remarkable upper abdominal findings. BONES: No acute osseous changes. IMPRESSION: 1. Left basilar pleural effusion. Residual left basilar atelectasis and follow-up with any concern underlying infiltrate or pneumonia. I personally reviewed the image(s) / study and resident, Dr. Aranda's interpretation. I agree with the findings as stated. This study has been interpreted at [facility] in [place], [place]. Electronically signed by: Brandee COTTER MD RENAL FUNCTION PANEL Collected: 03/22/2018 Status: F Source: [facility] 4:02 AM [facility]POS[facility] TYPE CODE TESTS RESULT OUT OF REFERENCE UNITS RANGE LAB GLU(LOINC) 74 - 99 mg/dL GLUCOSE High 125 LAB SOD(LOINC) 136 - 145 mmol/L Low SODIUM 132 LAB K(LOINC) 3.5 - 5.3 mmol/L POTASSIUM 4.9 LAB CHLOR(LOIN 98 - 107 mmol/L C) Low CHLORIDE 97 LAB BIC(LOINC) 21 - 32 mmol/L BICARBONATE 28 LAB ANGAP(LOIN 10 - 20 mmol/L C) ANION GAP 12 LAB UREA(LOINC 6 - 23 mg/dL ) UREA High NITROGEN 32 LAB CREA(LOINC 0.50 - 1.30 mg/dL ) CREATININE 0.75 LAB GFRFN(LOIN >60 mL/min/1.7 C) 3m2 GFR-NON AM. >60 LAB GFRAA(LOIN >60 mL/min/1.7 C) 3m2 GFR- AM. >60 Result Comment: CALCULATIONS OF ESTIMATED GFR ARE PERFORMED USING THE MDRD STUDY EQUATION FOR THE IDMS-TRACEABLE CREATININE METHODS. CLIN CHEM 2007;53:766-72 LAB CA(LOINC) 8.6 - 10.6 mg/dL CALCIUM 9.4 LAB PHOS(LOINC) 2.5 - 4.9 mg/dL PHOSPHORUS 3.1 Result Comment: The performance characteristics of phosphorus testing in heparinized plasma have been validated by the individual laboratory site where testing is performed. Testing on heparinized plasma is not approved by the FDA; however, such approval is not necessary. LAB ALB(LOINC) 3.4 - 5.0 g/dL Low ALBUMIN 2.8 Performed By: #### RENAL #### [facility] [address] [place] [address] CBC AND DIFFERENTIAL Collected: 03/22/2018 Status: F Source: [facility] 4:02 [facility] REPOSITORY TYPE CODE TESTS RESULT OUT OF REFERENCE UNITS RANGE LAB WBCR(LOINC 4.4 - 11.3 x10E9/L ) WBC High 16.7 LAB NRBC(LOINC 0.0-0.0 /100 WBC ) NUCLEATED RBC 0.0 LAB RBCCT(LOIN 4.50 - 5.90 x10E12/L C) Low RBC 4.01 LAB HGB(LOINC) 13.5 - 17.5 g/dL Low HGB 11.9 LAB HCT(LOINC) 41.0 - 52.0 % Low HCT 38.0 LAB MCV(LOINC) 80 - 100 fL MCV 95 LAB MCHC2(LOIN 32.0 - 36.0 g/dL C) Low MCHC 31.3 LAB PLTCT(LOIN 150 - 450 x10E9/L C) PLT 246 LAB RDWCV(LOIN 11.5 - 14.5 % C) High RDW-CV 18.0 LAB IG(LOINC) 0.0 - 0.9 % % AUTOMATED 8.6 IMMATURE GRAN Result Comment: Percent differential counts (%) should be interpreted in the context of the absolute cell counts (cells/L). LAB MDIF(LOINC) DIFFERENTIAL SEE MANUAL DIFF Performed By: #### CBCDF #### [facility] [address] [facility] [employer] [facility] [facility] [place] [address] RED CELL MORPHOLOGY Collected: 03/22/2018 Status: F Source: [address] REPOSITORY TYPE CODE TESTS RESULT OUT OF REFERENCE UNITS RANGE LAB RBCMO(LOIN C) RBC MORPHOLOGY See Below LAB POLY(LOINC ) POLYCHROMASIA Mild Performed By: #### [email or web address] #### [facility] [address] [facility] [employer] [facility] [place] [address] MANUAL DIFFERENTIAL Collected: 03/22/2018 Status: F Source: ID[place]EL 4:[address] [place] [address] REPOSITORY TYPE CODE TESTS RESULT OUT OF REFERENCE UNITS RANGE LAB SEG(LOINC) 40.0 - 80.0 % % SEG NEUTROPHIL 62.0 Result Comment: Percent differential counts (%) should be interpreted in the context of the absolute cell counts (cells/L). LAB BAND(LOINC) 0.0 - 5.0 % % BAND NEUTROPHIL 1.0 LAB LYMP2(LOINC) 13.0 - % 44.0 % LYMPHOCYTE 20.0 LAB MONO2(LOINC) 2.0 - % 10.0 % MONOCYTE 6.0 LAB EOS2(LOINC) 0.0 - 6.0 % % EOSINOPHIL 2.0 LAB BASO2(LOINC) 0.0 - 2.0 % % BASOPHIL 2.0 LAB ALYMP(LOINC) 0.0 - 2.0 % % LYMPH-ATYPICAL 1.0 LAB MYEL(LOINC) 0.0 - 0.0 % % MYELOCYTE 6.0 LAB ANC(LOINC) 1.20 - x10E9/L High 7.70 ANC 10.52 LAB #SEG(LOINC) 1.20 - x10E9/L High 7.00 SEG NEUTROPHIL 10.35 LAB #BAND(LOINC) 0.00 - x10E9/L 0.70 BAND NEUTROPHIL 0.17 LAB #LYM2(LOINC) 1.20 - x10E9/L 4.80 LYMPHOCYTE 3.34 LAB #MON2(LOINC) 0.10 - x10E9/L 1.00 MONOCYTE 1.00 LAB #EOS2(LOINC) 0.00 - x10E9/L 0.70 EOSINOPHIL 0.33 LAB #BAS2(LOINC) 0.00 - x10E9/L High 0.10 BASOPHIL 0.33 LAB #ALYM(LOINC) 0.00 - x10E9/L 0.50 LYMPH-ATYPICAL 0.17 LAB #MYEL(LOINC) 0.00 - x10E9/L Abnormal 0.00 MYELOCYTE 1.00 Performed By: #### IFF #### [facility] [address] [place] [address] CLINICAL EVENT NOTE Observed: 03/22/2018 Status: UNK Source: [facility] 3:42 AM [facility] REPOSITORY Event: Topic: Acceptance to Step Down Details: Mr Bermudez is a 67 y/o male with PMH of HTN, type II DM, COPD, left lung resection ( for unclear reasons), CYNTHIA refuses treatment, and meningioma s/p craniotomy with resection 2013 (at [facility]). Admitted 02/10 for repeat surgical resection of meningioma. 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 Postop course complicated by dysphagia, brainstem infarction and hypoxia concerning for aspiration PNA. Sputum grew MRSA. Seen by ENT for dysphagia, and flexible laryngoscopy showed generalized pharyngeal weakness with gross aspiration. PEG was placed on 02/21/18 with EGD at that time noting grade D esophagitis. On 02/24/18 neurosurgery performed lumbar puncture that was negative. Was in step down for 2 days and then transferred to medicine service on 03/02. He was continued on Vancomycin until 03/04, when ID was consulted for a persistent leukocytosis, up to 23K, they recommended stopping the vancomycin and starting linezolid. CT chest 03/04 showed significant worsening of now severe bronchial and bronchiolar wall thickening, worsening small airway disease, tree in bud changes, infectious bronchiolitis and likely aspiration. Head CT showed left occipital craniectomy and cranioplasty with associated pseudomeningocele and cortical resection defect at the lateral left cerebellum, mild cortical volume loss and slight ventricular dilatation. C. Diff PCR negative. Leukocytosis resolved with switching to Linezolid, with stop date 03/13. During the infectious work up an ultrasound duplex was completed of the BUE which revealed a left basilic occlusive thrombosis adjacent to the midline. No anticoagulation indicated for this, line was removed. New Midline in RUE placed 03/14. Brain MRI repeated 03/07, showing new irregular enhancement within the brainstem suggest evolving subacute infarction within the brainstem with the possibility of a minimal amount of superimposed more acute infarction (compared to initial MRI 02/10. On 03/12 O2 needs increased to NRB mask. CXR showed left chest complete opacified and CT chest 03/13 was negative for PE and revealed complete atelectasis of left lung. He was transferred to the MICU 03/13. Goals of care established no intubation but aggressive measures to reexpand lung. Attempted to utilize NIPPV but pt did not tolerate, refusing care and mask, tried nasal mask and that was not tolerated either. IPV, vest therapy, and NT suction did reexpand the lung by 03/16 but then it partially (LLL) recollapsed 03/17. Over the last 3 days his lung has remained expanded and O2 weaned to room air. MICU team met with family, the Cyber Software Engineer (had been contacted by family), and MICU team and goals of care established further. He will go only to SDU where pulmonary needs can be met, then from there to LTACH for ongoing care. Family was to select a facility over this past weekend. He is now transferred to Step Down. Upon arrival patient was sleeping, mildly arousable. He was on room air, having episodes of apnea with POx drop to 87% during apneic episodes. RT called to place patient on CPAP. After he was placed on CPAP (auto pap as per previous MICU orderers) POx improved to upper 90s. Will continue plan as outlined in MICU progress note Neuro: -managing delirium and seizures Pulm/ID: -continue Vest, IPV and NT suction -Levofloxacin for MRSA PNA (need to determine stop date) -CPAP at night -autopap CV: -continue adjusting HTN meds FEN/GI: -TF via PEG -bowel regimen and PPI Endo: -glargine and mild sliding scale Code: DNAR and DNI. Dispo: will remain in SDU until tx to LTACH Provider / Team Contact Information: Provider/Team Contact Info-Pager Number: [phone] Electronic Signatures: Evelin Hernadez ([employer] OPERATOR-GROUP MANAGER) (Signed 22-Mar-2018 05:15) Authored: Event, Provider / Team Contact Information Last Updated: 22-Mar-2018 05:15 by Evelin Hernadez ([employer] OPERATOR-GROUP MANAGER) GLUCOSE-POCT Collected: 03/22/2018 Status: F Source: [facility] 3:41 AM [facility] REPOSITORY TYPE CODE TESTS RESULT OUT OF RANGE REFERENCE UNITS LAB GLUP(LOINC) 74 - 99 mg/dL High 153 GLUCOSE-POCT Performed By: #### GLUPO #### [facility] [address] [place] [address] GLUCOSE-POCT Collected: 03/21/2018 Status: F Source: [facility] 11:43 PM [facility] REPOSITORY TYPE CODE TESTS RESULT OUT OF RANGE REFERENCE UNITS LAB GLUP(LOINC) 74 - 99 mg/dL High 171 GLUCOSE-POCT Performed By: #### GLUPO #### [facility] [address] [place] [address] GLUCOSE-POCT Collected: 03/21/2018 Status: F Source: [facility] 7:35 PM [facility] TYPE CODE TESTS RESULT OUT OF RANGE REFERENCE UNITS LAB GLUP(LOINC) 74 - 99 mg/dL High 164 GLUCOSE-POCT Performed By: #### GLUPO #### [facility] [address] [place] [address] GLUCOSE-POCT Collected: 03/21/2018 Status: F Source: [facility] 3:28 PM [facility] TYPE CODE TESTS RESULT OUT OF RANGE REFERENCE UNITS LAB GLUP(LOINC) 74 - 99 mg/dL High 167 GLUCOSE-POCT Performed By: #### GLUPO #### [facility] [address] [place] [address] ESTABLISHED VISIT Observed: 03/21/2018 Status: UNK Source: [facility] (NEUROSURGERY) 1:48 PM [facility] REPOSITORY No report was sent DAILY PROGRESS Observed: 03/21/2018 Status: COMPLETED Source: [facility] NOTE-PALLIATIVE CARE 1:32 PM [facility] REPOSITORY Consult Type: subsequent visit/care Service: Palliative Care Subjective Data: DIPESH BERMUDEZ is a 67 year old Male who is Hospital Day # 40 and POD #38 for left retrosigmoid craniotomy for tumor resection. Additional Information: Subjective / interval events: - patient trialed with PPV overnight end of last week, did not tolerate - patient intermittently refusing treatments/therapies Objective Data: Objective Information: T PRBPSpO2 [id number]% Date/Time03/21 12: 13: 14: 13: 13:00 Range(36.1C - 37.1C ) (72 - 104 ) (10 - 27 ) (122 - 161 )/ (70 - 121 ) (88% - 100% ) Highest temp of 37.1 C was recorded at 03/20 15:45 Patient on room air Patient refused exam Medication: Medications: Continuous Medications No continuous medications are active Scheduled Medications 1. Atorvastatin: 40 mg Oral Daily 2. Budesonide 0.5 mg/ 2 mL Nebulizer Soln: 2 mL Inhalation Every 12 Hours 3. Docusate 50 mg - Senna 8.6 m tablet(s) Oral 2 Times a Day 4. Enoxaparin SubCutaneous: 40 mg SubCutaneous Every 24 Hours 5. Esomeprazole Oral Packet: 40 mg PEG Tube 2 Times a Day 6. Insulin Glargine (Lantus) Injectable: 30 unit(s) SubCutaneous Every 24 Hours 7. Insulin Lispro Mild Corrective Scale: unit(s) SubCutaneous Every 4 Hours 8. levoFLOXacin 750 mg IVPB/ Premix 150 mL: 150 mL IntraVenous Piggyback Every 24 Hours 9. Melatonin: 3 mg Oral At Bedtime 10. Nicotine 7 mg/ 24 hour TransDermal: 1 patch TransDermal Every 24 Hours 11. Nystatin Oral Liquid: 724155 unit(s) Oral Every 6 Hours 12. Petrolatum Topical: 1 application(s) Topical 2 Times a Day 13. Saliva Substitute: 5 mL Oral 4 Times a Day 14. Silodosin (NON - Formulary): 8 mg NasoGastric Tube Daily 15. Simethicone Oral Liquid Drops: 80 mg Oral 4 Times a Day After Meals 16. Sodium Chloride 0.9% Injectable Flush: 10 mL IntraVenous Flush Every 12 Hours 17. Sodium Chloride 0.9% Injectable Flush: 10 mL IntraVenous Flush Every 12 Hours 18. Sodium Chloride 3% Nebulizer Soln: 3 mL Inhalation Every 6 Hours 19. Valproic Acid (Depakene) Oral Liquid: 250 mg PEG Tube Every 12 Hours PRN Medications 1. Acetaminophen: 650 mg Oral Every 6 Hours 2. Albuterol 2.5 mg/ 3 mL Nebulizer Soln: 3 mL Inhalation Every 2 Hours 3. Bisacodyl Rectal: 10 mg Rectal Daily 4. Dextrose 50% in Water Injectable: 25 gram(s) IntraVenous Push Every 15 Minutes 5. Fleet Adult (Sodium Phosphate) Rectal: 1 enema Rectal Daily 6. Glucagon Injectable: 1 mg IntraMuscular Every 15 Minutes 7. Heparin Flush 10 unit/ mL PF Injectable: 5 mL IntraVenous Flush Every 12 Hours 8. Heparin Flush 10 unit/ mL PF Injectable PRN: 5 mL IntraVenous Flush According to Flush Policy 9. Heparin Flush 10 unit/ mL PF Injectable PRN: 5 mL IntraVenous Flush According to Flush Policy 10. Ondansetron Injectable: 4 mg IntraVenous Push Every 6 Hours 11. Polyethylene Glycol: 17 gram(s) Oral Daily 12. Sodium Chloride 0.9% Injectable Flush PRN: 10 mL IntraVenous Flush According to Flush Policy 13. Sodium Chloride 0.9% Injectable Flush PRN: 20 mL IntraVenous Flush According to Flush Policy Recent Lab Results: Results: I have reviewed these laboratory results: Complete Blood Count + Differential [Drawn 21-Mar-2018 01:53:00], Renal Function Panel [Drawn 21-Mar-2018 01:53:00]. Radiology Results: Results: I have reviewed and personally visualized these studies: Xray Chest 1 View [Mar 21 2018 1:26PM] Xray Chest 1 View [Mar 20 2018 11:40AM] Xray Chest 1 View [Mar 19 2018 10:58AM] Xray Chest 1 View [Mar 18 2018 9:46AM] Xray Chest 1 View [Mar 17 2018 4:01PM] Assessment and Plan: Assessment: Mr. Bermudez is a 67 y/o with a history of COPD and untreated sleep apnea who initially presented for meningioma resection and has had a prolonged hospital stay with post-operative period complicated by stroke, decreased cough and impaired swallow as post-stroke sequelae, and recurrent MICU admissions due to acute on chronic respiratory failure attributed to mucous plugging in the setting of decreased cough. Palliative Care is consulted for goals of care. # Goals of care: no change since family meeting held 03/16; see notes from that day or PC note from 03/17 for summary; patient has done well with spacing out breathing treatments and currently left lung remains open for the past few days so transfer to SDU in process; if patient continues to do well in SDU then potentially transition to LTAC but if not goals and plan of care will need to be readdressed - monitor progress - ongoing conversations regarding goals/plan of care # Palliative encounter: no family at bedside this AM and patient would not engage - ongoing visits for building rapport - palliative care interdisciplinary team following Thank you for allowing us to participate in the care of this patient. Palliative Team will continue to follow as needed. Please contact team with any questions or concerns. Pao Engel MD Palliative Care Contact via [employer] for weekday workdays If delayed answer [place] for [place] [phone] Electronic Signatures: Pao Engel) (Signed 21-Mar-2018 13:47) Authored: Service, Subjective Data, Objective Data, Assessment and Plan, Signature/Cosignature/Attestation Last Updated: 21-Mar-2018 13:47 by Pao Engel) GLUCOSE-POCT Collected: 03/21/2018 Status: F Source: [facility] 11:38 AM [facility]IT[facility] TYPE CODE TESTS RESULT OUT OF RANGE REFERENCE UNITS LAB GLUP(LOINC) 74 - 99 mg/dL High 184 GLUCOSE-POCT Performed By: #### GLUPO #### [facility] [address] [place] [address] EMR ADDON Collected: 03/21/2018 Status: F Source: [facility] 10:16 AM [facility] REPOSITORY TYPE CODE TESTS RESULT OUT OF REFERENCE UNITS RANGE LAB EMRAC(LOIN C) ADDON CONFIRMATION REQUEST REC'D Performed By: #### EMRAD #### NO LOCATION NEEDED GLUCOSE-POCT Collected: 03/21/2018 Status: F Source: [facility] 10:15 AM [facility] REPOSITORY TYPE CODE TESTS RESULT OUT OF RANGE REFERENCE UNITS LAB GLUP(LOINC) 74 - 99 mg/dL High 231 GLUCOSE-POCT Performed By: #### GLUPO #### [facility] [address] [place] [address] TH CHEST 1 VIEW Observed: 03/21/2018 Status: F Source: [facility] 9:17 AM [facility] REPOSITORY Patient Name: DIPESH BERMUDEZ STUDY: CHEST 1 VIEW; 03/21/2018 9:17 am INDICATION: Signs/Symptoms: reassess atelectasis. COMPARISON: Chest x-ray dated 03/20/2018. ACCESSION NUMBER(S): [id number] ORDERING CLINICIAN: MO KINGSTON FINDINGS: CARDIOMEDIASTINAL SILHOUETTE: Cardiomediastinal silhouette is persistently enlarged, unchanged from prior. Mild aortic knob calcifications again seen. LUNGS: There is stable appearance of a left basilar retrocardiac opacity, likely representing pleural effusion versus atelectasis. Mild perihilar congestion is again present without evidence of lowell pulmonary edema. No evidence of sizable pneumothorax. ABDOMEN: No remarkable upper abdominal findings. BONES: No acute osseous changes. IMPRESSION: 1. Stable appearance of left basilar retrocardiac opacity, likely representing pleural effusion versus atelectasis. I personally reviewed the images/study and I agree with the findings as stated. This study was interpreted at [facility], [place], [place]. Electronically signed by: Brandee COTTER MD DAILY PROGRESS NOTE - Observed: 03/21/2018 Status: COMPLETED Source: [facility] ( 7:26 AM HOSPITALS REPOSITORY AGALEEROYP STUDENT ) Service: Critical Care Service: ServiceMICU Medical Student: Medical Student: JOSEPH Student Subjective Data: ID Statement: DIPESH BERMUDEZ is a 67 year old Male who is Hospital Day # 40 and ICU Day #4 and POD #38 for left retrosigmoid craniotomy for tumor resection. No acute events overnight. Patient alert and answering questions appropriately. Resting comfortably in bed. Objective Data: Objective Information T PRBPSpO2 [id number]/8490% Date/Time03/20 15:4511/5 6:00115 6:00105/21 6:00105/21 6:00 Range(36.7C - 37.2C ) (72 - 104 ) (10 - 25 ) (130 - 161 )/ (70 - 121 ) (90% - 96% ) Highest temp of 37.2 C was recorded at 03/20 11:51 ---- Intake and Output ----- Mn/Dy/Year TimeIntakeOutputNet Mar 21, 2018 6:00 [id number] Mar 20, 2018 10:00 [id number] Mar 20, 2018 2:00 [id number] The Intake and Output Totals for the last 24 hours are: IntakeOutputNet [id number] Drain and tube details (included in I&O totals) 2510 cc Indwelling Catheter - Urethral( 21-Mar-2018 06:00:00 ) Physical Exam: Physical Exam: Neurological: Alert and answering question appropriately MAEx4 5/5 with generalized weakness PERRLA EOMI Cardiovascular: NSR on the monitor S1S2 auscultated without friction rubs or murmurs +1 generalized edema radial and DP +2 pulses palpable Respiratory/Thorax: RA Rhonchi in left upper lobe diminished lung sounds in bilateral lower lobes Genitourinary: Flynn with clear yellow adequate urine Gastrointestinal: LUQ PEG without drainage around site. skin intact with bumper in place active bowel sounds in all four quadrants Soft, non-tender, round Skin: Grossly intact, warm, dry Musculoskeletal: Generalized weakness Constitutional: In no acute distress resting in bed Eyes: no icterus sclera white ENMT: no nasal or oral lesions mucosa moist and intact Head/Neck: atraumatic, normocephalic Mike T Coma Scale: Best Eye Response: (E4) spontaneous Best Motor Response: (M6) obeys commands Best Verbal Response: (V4) confused [place] Score: 14 RASS: Torres Agitation Sedation Scale (RASS): 0 (alert and calm) spontaneously pays attention to caregiver Allergies: Allergies: Codeine Sulfate: Unknown penicillin: Unknown insulin: Unknown Intolerances: Aspir 81: GI Upset Medications: Medications: Continuous Medications No continuous medications are active Scheduled Medications 1. Atorvastatin: 40 mg Oral Daily 2. Budesonide 0.5 mg/ 2 mL Nebulizer Soln: 2 mL Inhalation Every 12 Hours 3. Docusate Oral Liquid: 100 mg Oral 2 Times a Day 4. Enoxaparin SubCutaneous: 40 mg SubCutaneous Every 24 Hours 5. Esomeprazole Oral Packet: 40 mg PEG Tube 2 Times a Day 6. Insulin Glargine (Lantus) Injectable: 30 unit(s) SubCutaneous Every 24 Hours 7. Insulin Lispro Mild Corrective Scale: unit(s) SubCutaneous Every 4 Hours 8. levoFLOXacin 750 mg IVPB/ Premix 150 mL: 150 mL IntraVenous Piggyback Every 24 Hours 9. Melatonin: 3 mg Oral At Bedtime 10. Nicotine 7 mg/ 24 hour TransDermal: 1 patch TransDermal Every 24 Hours 11. Nystatin Oral Liquid: 756694 unit(s) Oral Every 6 Hours 12. Petrolatum Topical: 1 application(s) Topical 2 Times a Day 13. Polyethylene Glycol: 17 gram(s) Oral Daily 14. Saliva Substitute: 5 mL Oral 4 Times a Day 15. Silodosin (NON - Formulary): 8 mg NasoGastric Tube Daily 16. Simethicone Oral Liquid Drops: 80 mg Oral 4 Times a Day After Meals 17. Sodium Chloride 0.9% Injectable Flush: 10 mL IntraVenous Flush Every 12 Hours 18. Sodium Chloride 0.9% Injectable Flush: 10 mL IntraVenous Flush Every 12 Hours 19. Sodium Chloride 3% Nebulizer Soln: 3 mL Inhalation Every 6 Hours 20. Valproic Acid (Depakene) Oral Liquid: 250 mg PEG Tube Every 12 Hours PRN Medications 1. Acetaminophen: 650 mg Oral Every 6 Hours 2. Albuterol 2.5 mg/ 3 mL Nebulizer Soln: 3 mL Inhalation Every 2 Hours 3. Bisacodyl Rectal: 10 mg Rectal Daily 4. Dextrose 50% in Water Injectable: 25 gram(s) IntraVenous Push Every 15 Minutes 5. Fleet Adult (Sodium Phosphate) Rectal: 1 enema Rectal Daily 6. Glucagon Injectable: 1 mg IntraMuscular Every 15 Minutes 7. Heparin Flush 10 unit/ mL PF Injectable: 5 mL IntraVenous Flush Every 12 Hours 8. Heparin Flush 10 unit/ mL PF Injectable PRN: 5 mL IntraVenous Flush According to Flush Policy 9. Heparin Flush 10 unit/ mL PF Injectable PRN: 5 mL IntraVenous Flush According to Flush Policy 10. Ondansetron Injectable: 4 mg IntraVenous Push Every 6 Hours 11. Polyethylene Glycol: 17 gram(s) Oral Daily 12. Sodium Chloride 0.9% Injectable Flush PRN: 10 mL IntraVenous Flush According to Flush Policy 13. Sodium Chloride 0.9% Injectable Flush PRN: 20 mL IntraVenous Flush According to Flush Policy Recent Lab Results: Results: CBC: 03/21/2018 01:53 \ Hgb / \ 11.5 L / WBC Plt 18.3 H 228 / Hct \ / 35.4 L \ RBC: 3.89 L MCV: 91 RFP: 03/21/2018 01:53 NA+ Cl- BUN / 134 L 99 30 H / Glucose 182 H K+ HCO3- Creat \ 4.9 28 0.80 \ Calcium : 9.4Anion Gap : 12 Albumin : 2.7 L Phos : 2.5 I have reviewed these laboratory results: RBC Morphology [Drawn 21-Mar-2018 01:53:00], Manual Differential Panel [Drawn 21-Mar-2018 01:53:00]. Results: Impression: 1.Slight interval improvement in left basilar atelectasis. Xray Chest 1 View [Mar 20 2018 11:40AM] Assessment and Plan: Daily Risk Screen: Does patient have a central lineno Does patient have an indwelling urinary catheteryes Plan for indwelling urinary catheter removal todayno The patient continues to require indwelling urinary catheterization for critically ill patients who need accurate urinary output measurements, urinary retention/bladder outlet obstruction, acute or chronic Is the patient intubatedno Neurology: Diagnosis: Hospital course: 67 year old male with a PMH significant for HTN, DMII, COPD, tobacco abuse, CYNTHIA, hypoxemic episodes related to aspiration pneumonitis, meningioma with surgical resection in 2013 who was admitted on 02/10/18 for repeat surgical resection of residual meningioma. He underwent a left retrosigmoid craniotomy for meningioma resection on 02/11/18. Postoperative course was complicated by brainstem stroke, left CN 6 palsy, recurrent dysphagia and aspiration pneumonitis. A Swallow evaluation was performed on 02/12 with weak right sided oromotor skills, poor lingual control and coordination, and overt coughing/choking spell with ice chip and 2 sips of water. MANAGER PROCESS IMPROVEMENT recommended strict NPO and consideration into right eye alternate means of nutrition. 02/13 Luis mason was called r/t patient desaturation which improved with increased FiO2. On 02/16 MBS was completed a significantly delayed swallow onset with decreased laryngeal elevation/anterior pull and laryngeal vestibular closure which results in silent aspiration in moderate amounts during swallow with thin, nectar, and honey thick liquids is seen with pharyngeal residue. Recommendations are strict NPO with frequent, aggressive oral care. On 02/17 a code [place] was called and the patient was transferred from the floor to the NSU related to increased FiO2 requirement and desaturation 2/2 mucous plugging and concern for aspiration pneumonia for which he was treated with vancomycin, azithromycin, metronidazole, and cefepime r/t PCN allergy. Goals of care were discussed with patient and family at this time and he was made DNAR/DNI . On 02/19 GI was consulted for PEG placement 2/2 silent aspiration Patient was transferred to the floor and on 02/21 PEG was placed. A code [place] was called on 02/21 r/t patient desaturation to 76% on 40% FiO2. He was placed on a NRB 100% FiO2 and his saturation improved to 88%. He was NT suctioned and thick secretions were removed. He was transferred to the MICU at that time. CXR showed left lung volume loss, postobstructive atelectasis 2/2 to mucous plugging . On 02/23 he had leukocytosis to 27.9 and elevated procalcitonin 0.24. He was started on meropenum. On 02/24 an LP was completed with concern for hydrocephalus, opening pressure was 15 cmH2O. Fungal and bacterial cultures were sent and were negative. Lower respiratory sputum culture was positive for MRSA and was initially treated with vancomycin and meropenem which was changed to linezolid and a 12 day course was completed. On 02/28 he was transferred to the SDU with decreased FiO2 needs at that time. On 03/07 an ultrasounds of the LUE showed an occlusive thrombus into right eye the left basilic vein adjacent to the midline catheter, AC was not indicated at this time. An MRI of the brain was completed and showed subacute infarction within the brainstem, left parietal subacute infarction and extra- axial dural based neoplasm/meningioma. Neurosurgery signed off. On 03/09 the patient was transferred to the floor. On 03/13 a code white was called related to a change in mental status and desaturation to the low 80%. CXR showed left lower lobe lung collapse. EzPap was initiated with albuterol and mucomyst treatments. Zosyn and Vancomycin were started. The patient was transferred to the MICU, family was contacted and it was restated the patient was not to be intubated. On 03/14 the left midline was d/c and a 4fr right midline was placed. On 03/15 lower respiratory tract sputum culture was positive for pansensitive PSAG and zosyn was started. The patient required q4h IPV, mechanical vest therapy, and frequent NT suctioning. He was unable to create a productive enough cough on his own to mainatin airway patency. On 03/16 a family meeting was held to discuss the patients tenuous condition and inability to clear his own airway without continued, intesne bronchial hygiene, pulmonary toileting, and suctioning. It was discussed that he would need LTACH placemetn for continued pulmonary toileting and physical and occupational therapy that he will need in order to gain the strength to maintain lung fucntion and airway patency. aeration on CXR improved and his need for pulmonary toileting decreased from q4h to q6h. On 03/17 nasal CPAP was trialed, the patient was unable to tolerate this. From 03/18 - 03/21 his left lung aeration improved but he has continued to have leukocytosis. His ATB was changed from zosyn to Levoflaxocin. Patient is currently maintaining SPO2 >91% on RA. He is requiring Q6h bronchial hygiene with IPV an mechanical vest. He is requiring NT suctioning at PRN basis. Assessment: 67 year old male s/p left retrosigmoid craniotomy for meningioma resection complicated by brain stem stroke, Left CN 6 palsy, recurrent dysphagia s/p PEG placement with hypoxemic hypercapnic respiratory failure 2/2 to recurrent aspiration PNA with MRSA and now PSAG. Plan: Neuro: Generalized weakness r/t prolonged hospitalization and illness. Slept well overnight. - Continue PT/OT - Mobilize patient daily - Continue valproic acid - Continue melatonin HS - Promote sleep hygiene Pulm/ID: Hypoxemic hypercapnic respiratory failure now resolved 2/2 to aspiration PNA with PSAG. Patient receive full course of linezolid for MRSA PNA. He is now on Levofloxacin for PSAG PNA. Continued leukocytosis. Afebrile. - Change zosyn to Levofloxacin - continue q6h pulmonary toilet with IPV and Mechanical vest - NT suction PRN - Continue incentive spirometry Q2h while awake - daily CBC - follow temperature curve - low threshold to roman culture patient if fever develops - f/u on CXR today CV: Hemodynamically stable. HLD, HFpEF 55- 60% - Continue atorvastatin - continue to hold home lisinopril, HCTHZ, amlodipine as SBP 130 - 160 - continue to monitor BP and need to restart home antihypertensives - Continue tele monitoring FEN/GI: Hyponatremia. Stable hypophosphatemia. Dysphagia with MBS completed on 02/16 recommending strict NPO r/t silent aspiration on thin, honey, and nectar thick liquids s/p PEG on enteral feedings. Stooling. Esophagitis. - Continue daily PPI - outpatient follow up with GI r/t esophagitis - Continue enteral feedings at goal as tolerated - d/c free water flushes r/t hyponatremia - daily RFP - aggressive oral care Q2h to prevent aspiration - daily I&O, monitor stool Endo: DMII POCT BG 137 - 182 well controlled. - continue lantus - continue mild corrective insulin scale Dispo: DNAR/DNI. Patient will be transferred to SDU today once bed available. Patient will continue to be worked up for LTACH placement as he continues to have high pulmonary toileting and suctioning needs. He will require extensive PT/OT needs. Family will be updated, patient is in agreement with this plan. Code Status: Code StatusDNAR with Added Limitations Signature/Cosignature/Attestation: Operations Leader Only - Attest to Medical Student/Acting Merchandise Distributor documentationAs a teaching institution, we recognize that medical students need to learn how to formulate documentation in the medical record. Although this document has been reviewed and the student has been given formative feedback by me, clinical decisions should not be based on the information contained herein. Electronic Signatures: Rubin Pathak (GURPREET) (Signed 21-Mar-2018 10:02) Authored: Service, Subjective Data, Objective Data, Assessment and Plan Mo Kingston ([employer] OPERATOR-GROUP MANAGER) (Signed 21-Mar-2018 11:27) Authored: Service, Signature/Cosignature/Attestation Last Updated: 21-Mar-2018 11:27 by Mo Kingston ([employer] OPERATOR-GROUP MANAGER) DAILY PROGRESS NOTE - Observed: 03/21/2018 Status: COMPLETED Source[facility] AM [facility] REPOSITORY TRANSFER SUMMARY Service: Critical Care Service: ServiceMICU Transfer Summary Subjective Data: ID Statement: DIPESH BEMRUDEZ is a 67 year old Male who is Hospital Day # 40 and ICU Day #4 and POD #38 for left retrosigmoid craniotomy for tumor resection. No issues overnight. Pt slept then awake with stooling and had trouble falling back asleep. Objective Data: Objective Information T PRBPSpO2 [id number]/8490% Date/Time03/20 15:4511/5 6:0011/5 6:0011/5 6:0011/5 6:00 Range(36.7C - 37.2C ) (72 - 104 ) (10 - 25 ) (127 - 161 )/ (70 - 121 ) (90% - 96% ) ---- Intake and Output ----- The Intake and Output Totals for the last 24 hours are: IntakeOutputNet [id number] Drain and tube details (included in I&O totals) 2510 cc Indwelling Catheter - Urethral( 21-Mar-2018 06:00:00 ) 3 BM Room air chemsticks 137-178 Allergies: Allergies: Codeine Sulfate: Unknown penicillin: Unknown insulin: Unknown Intolerances: Aspir 81: GI Upset Recent Lab Results: Results: CBC: 03/21/2018 01:53 \ Hgb / \ 11.5 L / WBC Plt 18.3 H 228 / Hct \ / 35.4 L \ RBC: 3.89 L MCV: 91 RFP: 03/21/2018 01:53 NA+ Cl- BUN / 134 L 99 30 H / Glucose 182 H K+ HCO3- Creat \ 4.9 28 0.80 \ Calcium : 9.4Anion Gap : 12 Albumin : 2.7 L Phos : 2.5 Cultures: 03/14 blood x 2 negative urine negative 03/19 c diff negative sputum PSAG sensitivities pending Results: 03/21 am CXR: Assessment and Plan: Daily Risk Screen: Does patient have a central lineno Does patient have an indwelling urinary catheteryes Plan for indwelling urinary catheter removal todayno The patient continues to require indwelling urinary catheterization for critically ill patients who need accurate urinary output measurements, incontinent patients with an open sacral wound or perineal wounds Is the patient intubatedno Neurology: Diagnosis: HOSPITAL COURSE: 67 year old male with history significant for HTN, type II DM, COPD, 2/3 of left lung resected for unclear reasons pt relates due to rib poking into lung, CYNTHIA refuses treatment, and meningioma s/p craniotomy with resection 2013 (done at [facility]). He was admitted 02/10 for repeat surgical resection of meningioma as angiogram prior to admit had no targets for embolization. 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 Postoperative course complicated by dysphagia, brainstem infarction as well as hypoxia concerning for aspiration pneumonia necessitating transfer to ICU. Sputum grew MRSA. He ended up failing modified barium swallow by speech therapy. ENT was consulted and performed flexible laryngoscopy that noted generalized pharyngeal weakness with gross aspiration. GI was consulted and placed PEG tube on 02/21/18 with EGD at that time also noting grade D esophagitis. On 02/24/18 neurosurgery performed lumbar puncture that was negative. Transferred from step down unit to regular nursing floor for further management by medicine service 03/02. On the floor he was continued on vancomycin until 03/04, when ID was consulted for a persistent leukocytosis, up to 23K, they recommended stopping the vancomycin and starting linezolid. CT chest 03/04 showed significant worsening of now severe bronchial and bronchiolar wall thickening, worsening small airway disease, tree in bud changes, infectious bronchiolitis and likely aspiration. Head CT the same day showed left occipital craniectomy and cranioplasty with associated pseudomeningocele and cortical resection defect at the lateral left cerebellum, mild cortical volume loss and slight ventricular dilatation. C. Diff PCR negative. Leukocytosis resolved with switching the antibiotic to linezolid, stop date for antibiotic will be 03/13. During the infectious work up an ultrasound duplex was completed of the BUE which revealed a left basilic occlusive thrombosis adjacent to the midline. No anticoagulation is indicated for this, line was removed. New Midline in RUE placed 03/14. An MRI of the brain was repeated 03/07, it did show showing new irregular enhancement within the brainstem suggest evolving subacute infarction within the brainstem with the possibility of a minimal amount of superimposed more acute infarction (compared to initial MRI 02/10. On 03/12 O2 needs increased to NRB mask. CXR showed left chest complete opacified and CT chest 03/13 was negative for PE and revealed complete atelectasis of left lung. He was transferred to the MICU 03/13. Goals of care established no intubation but aggressive measures to reexpand lung. Attempted to utilize NIPPV but pt did not tolerate, refusing care and mask, tried nasal mask and that was not tolerated either. IPV, vest therapy, and NT suction did reexpand the lung by 03/16 but then it partially (LLL) recollasped 03/17. Over the last 3 days his lung has remained expanded and O2 weaned to room air. We met with family, the Cyber Software Engineer (had been contacted by family), and MICU team and goals of care established further. He will go only to SDU where pulmonary needs can be met, then from there to LTACH for ongoing care. Family was to select a facility over this past weekend. A/P: 67 y/o s/p meningioma resection complicated by brainstem CVA with dysphagia, aspiration pneumonia, initially with MRSA now with PSAG that is pansensitive, and hypercapneic and hypoxemic respiratory failure. Ongoing issues include leukocytosis that is somewhat better today, no fevers; pulmonary toilet requirements; sleep. Neuro: Slept but it was interrupted, then could not return to sleep. Avoiding all benzos and sedating agents due to risk of delirium. - continue PT and OT - continue valproic acid - mobilize daily - schedule melatonin, increase to 6 mg Pulm/ID: MRSA then PSAG pneumonia. Completed a course of vanco/linezolid, now was on piptazo switched to levaquin today. O2 weaned to room air for the last several days. We did try nocturnal CPAP with nasal mask but he did not tolerate. Nephew was planning to get nasal prongs but I do not think we have tried those over the weekend. He remains afebrile but WBC count is still elevated. Differential is normal but there are metamyelocytes and myeloytes on the smear. Repeat cx are negative except for PSAG in the sputum still. Hx of COPD, but we do not have PFTs here in the system. - continue budesonide and as needed albuterol - continue pulmonary toilet with IPV, 3% nebs, percussion, VEST therapy, and NT suctioning. - continue levofloxacin, will discuss stop date - daily CBC with diff CV: HTN at home on lisinopril, HCTZ, and amlodipine. We have been holding them for soft BP. Echo done 02/16 with preserved EF, diastolic dysfunction, and moderate LVH. - will resume amlodipine, starting at 5 mg daily - strict I and O FEN/GI: Pt failed first swallow study post op with dysphagia signs on 02/12, then MBSS with laryngeal penetration, aspiration events, and subsequent PEG placement 03/01. On enteral feeds at goal, aspiration precautions. No further episodes of aspiration thus far. No further PO trials have been attempted. Electrolytes have been stable with K, Mag, and phos repleted as needed. Had some constipation, now on bowel regimen and having more stools, regimen adjusted, stopped standing miralax and colace and replaced it with PRN miralax and standing senokot BID. Mild hypernatremia corrected, free water stopped today. EGD revealed esophagitis, on BID PPI and needs follow up with GI. - daily RFP - F/U appt with GI needs to be set - continue PPI Renal: Pt had elevated BUN>>>Cr, both are improving. UA had no casts or debris. Urine lytes not sent. UOP has been good. Overall he is positive fluid balance but no signs of congestion. Endo: Type II DM, on glargine and metformin at home. BG was difficult to control at times, but once the glargine was titrated up he is at goal 140-180. - continue glargine to 30 units daily - continue mild scale for now Dispo: DNAR and DNI. Will update nephew via phone today. To SDU. Once LTACH ready and they have accepted can go right to LTACH from SDU. Pt discussed with Dr Stevenson WADSWORTH 45 minutes critical care time Code Status: Code StatusDNAR Signature/Cosignature/Attestation: Provider/Team Contact Info-Pager [id number] Critical Care PatientI have reviewed and evaluated the most recent data and results, personally examined the patient, and formulated the plan of care as presented above. This patient was critically ill and required continued critical care treatment. Teaching and any separately billable procedures are not included in the time calculation. Billing Provider Critical Care Time45 minute(s) Primary Critical Care Issue/Treatment (See Assessment and Plan for greater detail)-- This patient has significantly altered mental status (delirium, encephalopathy, coma, or anoxic brain damage). We are treating with appropriate medications, hemodynamic support, ventilatory and/or oxygenating support, as indicated, as well as doing intensive diagnostic evaluation and neurological monitoring. Please see assessment and plan above for greater detail.; -- This patient has impending or acute respiratory failure. We are treating with appropriate medications, ventilatory and/or oxygenating support, as indicated, as well as intensive monitoring. Please see assessment and plan above for greater detail. Electronic Signatures: Mo Kingston ([employer] OPERATOR-GROUP MANAGER) (Signed 21-Mar-2018 11:25) Authored: Service, Subjective Data, Objective Data, Assessment and Plan, Signature/Cosignature/Attestation Last Updated: 21-Mar-2018 11:25 by Mo Kingston ([employer] OPERATOR-GROUP MANAGER) RENAL FUNCTION PANEL Collected: 03/21/2018 Status: F Source: [facility] 1:53 AM HOSPITALS REPOSITORY TYPE CODE TESTS RESULT OUT OF REFERENCE UNITS RANGE LAB GLU(LOINC) 74 - 99 mg/dL GLUCOSE High 182 LAB SOD(LOINC) 136 - 145 mmol/L Low SODIUM 134 LAB K(LOINC) 3.5 - 5.3 mmol/L POTASSIUM 4.9 LAB CHLOR(LOIN 98 - 107 mmol/L C) CHLORIDE 99 LAB BIC(LOINC) 21 - 32 mmol/L BICARBONATE 28 LAB ANGAP(LOIN 10 - 20 mmol/L C) ANION GAP 12 LAB UREA(LOINC 6 - 23 mg/dL ) UREA High NITROGEN 30 LAB CREA(LOINC 0.50 - 1.30 mg/dL ) CREATININE 0.80 LAB GFRFN(LOIN >60 mL/min/1.7 C) 3m2 GFR-NON AM. >60 LAB GFRAA(LOIN >60 mL/min/1.7 C) 3m2 GFR- AM. >60 Result Comment: CALCULATIONS OF ESTIMATED GFR ARE PERFORMED USING THE MDRD STUDY EQUATION FOR THE IDMS-TRACEABLE CREATININE METHODS. CLIN CHEM 2007;53:766-72 LAB CA(LOINC) 8.6 - 10.6 mg/dL CALCIUM 9.4 LAB PHOS(LOINC) 2.5 - 4.9 mg/dL PHOSPHORUS 2.5 Result Comment: The performance characteristics of phosphorus testing in heparinized plasma have been validated by the individual laboratory site where testing is performed. Testing on heparinized plasma is not approved by the FDA; however, such approval is not necessary. LAB ALB(LOINC) 3.4 - 5.0 g/dL Low ALBUMIN 2.7 Performed By: #### RENAL #### [facility] [address] [place] [address] CBC AND DIFFERENTIAL Collected: 03/21/2018 Status: F Source: [facility] 1:53 AM HOSPITALS REPOSITORY TYPE CODE TESTS RESULT OUT OF REFERENCE UNITS RANGE LAB WBCR(LOINC 4.4 - 11.3 x10E9/L ) WBC High 18.3 LAB NRBC(LOINC 0.0-0.0 /100 WBC ) NUCLEATED RBC 0.1 LAB RBCCT(LOIN 4.50 - 5.90 x10E12/L C) Low RBC 3.89 LAB HGB(LOINC) 13.5 - 17.5 g/dL Low HGB 11.5 LAB HCT(LOINC) 41.0 - 52.0 % Low HCT 35.4 LAB MCV(LOINC) 80 - 100 fL MCV 91 LAB MCHC2(LOIN 32.0 - 36.0 g/dL C) MCHC 32.5 LAB PLTCT(LOIN 150 - 450 x10E9/L C) PLT 228 LAB RDWCV(LOIN 11.5 - 14.5 % C) High RDW-CV 17.3 LAB IG(LOINC) 0.0 - 0.9 % % AUTOMATED 5.4 IMMATURE GRAN Result Comment: Percent differential counts (%) should be interpreted in the context of the absolute cell counts (cells/L). LAB MDIF(LOINC) DIFFERENTIAL SEE MANUAL DIFF Performed By: #### CBCDF #### [facility] [address] [place] [address] MANUAL DIFFERENTIAL Collected: 03/21/2018 Status: F Source: [facility] 1:53 AM [facility]PITALS REPOSITORY TYPE CODE TESTS RESULT OUT OF REFERENCE UNITS RANGE LAB SEG(LOINC) 40.0 - 80.0 % % SEG NEUTROPHIL 68.0 Result Comment: Percent differential counts (%) should be interpreted in the context of the absolute cell counts (cells/L). LAB BAND(LOINC) 0.0 - 5.0 % % BAND NEUTROPHIL 1.0 LAB LYMP2(LOINC) 13.0 - % 44.0 % LYMPHOCYTE 14.0 LAB MONO2(LOINC) 2.0 - % 10.0 % MONOCYTE 7.0 LAB EOS2(LOINC) 0.0 - 6.0 % % EOSINOPHIL 1.0 LAB BASO2(LOINC) 0.0 - 2.0 % % BASOPHIL 0.0 LAB ALYMP(LOINC) 0.0 - 2.0 % % LYMPH-ATYPICAL 1.0 LAB META(LOINC) 0.0 - 0.0 % % METAMYELOCYTE 1.0 LAB MYEL(LOINC) 0.0 - 0.0 % % MYELOCYTE 7.0 LAB ANC(LOINC) 1.20 - x10E9/L High 7.70 ANC 12.62 LAB #SEG(LOINC) 1.20 - x10E9/L High 7.00 SEG NEUTROPHIL 12.44 LAB #BAND(LOINC) 0.00 - x10E9/L 0.70 BAND NEUTROPHIL 0.18 LAB #LYM2(LOINC) 1.20 - x10E9/L 4.80 LYMPHOCYTE 2.56 LAB #MON2(LOINC) 0.10 - x10E9/L High 1.00 MONOCYTE 1.28 LAB #EOS2(LOINC) 0.00 - x10E9/L 0.70 EOSINOPHIL 0.18 LAB #BAS2(LOINC) 0.00 - x10E9/L 0.10 BASOPHIL 0.00 LAB #ALYM(LOINC) 0.00 - x10E9/L 0.50 LYMPH-ATYPICAL 0.18 LAB #META(LOINC) 0.00 - x10E9/L Abnormal 0.00 METAMYELOCYTE 0.18 LAB #MYEL(LOINC) 0.00 - x10E9/L Abnormal 0.00 MYELOCYTE 1.28 Performed By: #### MDIFF #### [facility] [address] [place] [id number] RED CELL MORPHOLOGY Collected: 03/21/2018 Status: F Source: [address] REPOSITORY TYPE CODE TESTS RESULT OUT OF REFERENCE UNITS RANGE LAB RBCMO(LOIN C) RBC MORPHOLOGY See Below LAB POLY(LOINC ) POLYCHROMASIA Mild LAB OVALO(LOIN C) OVALOCYTES Few Performed By: #### MORP2 #### [facility] [address] [place] [address] PROCALCITONIN Collected: 03/21/2018 Status: F Source: [place] [id number] [place] [address] REPOSITORY TYPE CODE TESTS RESULT OUT OF RANGE REFERENCE UNITS LAB PCALC(SHAKEEL <=0.07 ng/mL NC) PROCALCITONIN Abnormal 0.11 Result Comment: Note new reference range and methodology as of 06/29/2017. . Procalcitonin (PCT) results measured serially can aid in decision-making for antibiotic discontinuation in patients with suspected or confirmed sepsis in conjunction with additional clinical information. Antibiotic discontinuation may be considered with a change in PCT of >80% from the peak result or when PCT falls below 0.50 ng/mL. . Procalcitonin results should not be used in isolation but should be interpreted in conjunction with additional clinical and laboratory findings. Procalcitonin results should not be used to guide the initiation of antibiotic therapy. . Falsely low PCT values in the presence of bacterial infection may occur in early infection, with atypical pathogens, localized infections, and subacute infectious endocarditis. . Falsely elevated results outside of severe bacterial infection/sepsis may be seen in patients with renal failure or insufficiency, severe trauma or chao, recent major abdominal/cardiac surgery, acute multi-organ failure, rarely in patients with medullary thyroid carcinoma and rare neuroendocrine tumors, and non-specific interfering antibodies (heterophile antibodies, rheumatoid factor, human anti-mouse antibodies (HAMA), etc). . Performance of the PCT test in pediatric patients (<18yo), women, immunocompromised patients, and patients on immunomodulatory medications has not been evaluated. Performed By: #### PCALC #### [facility] [address] [place], [place] [id number] GLUCOSE-POCT Collected: 03/21/2018 Status: F Source: [facility] 1:47 AM HOSPITALS REPOSITORY TYPE CODE TESTS RESULT OUT OF RANGE REFERENCE UNITS LAB GLUP(LOINC) 74 - 99 mg/dL High 178 GLUCOSE-POCT Performed By: #### GLUPO #### [facility] [address] [place] [address] DAILY PROGRESS NOTE - Observed: 03/20/2018 Status: COMPLETED Source: [facility] CRITICAL CARE-MICU 5:05 PM HOSPITALS REPOSITORY Service: Critical Care Service: ServiceMICU Subjective Data: ID Statement: DIPESH BERMUDEZ is a 67 year old Male who is Hospital Day # 39 and ICU Day #3 and POD #37 for left retrosigmoid craniotomy for tumor resection. Mr. Bermudez is alert and cooperative today. He follows commands intermittently. He has been on room air since last night. Objective Data: Objective Information T PRBPSpO2 [id number]% Date/Time03/20 15: 16: 16: 16: 16:00 Range(36.5C - 37.3C ) (72 - 99 ) (10 - 29 ) (127 - 163 )/ (69 - 95 ) (90% - 96% ) Highest temp of 37.3 C was recorded at 03/20 4:00 ---- Intake and Output ----- Mn/Dy/Year TimeIntakeOutputNet Mar 20, 2018 2:00 [id number] Mar 20, 2018 6:00 [id number] Mar 19, 2018 10:00 [id number] The Intake and Output Totals for the last 24 hours are: IntakeOutputNet [id number] Drain and tube details (included in I&O totals) 2265 cc Indwelling Catheter - Urethral( 20-Mar-2018 06:00:00 ) Physical Exam: Physical Exam: Neurological: Alert, answering questions appropriately Cardiovascular: RRR Respiratory/Thorax: decreased breath sounds left base Genitourinary: flynn Gastrointestinal: + BS soft NT ND Skin: No rash Constitutional: no distress Eyes: no icterus ENMT: moist Head/Neck: supple Extremities: 1+ LE chronic stasis RUE ML site dressed and clear Allergies: Allergies: Codeine Sulfate: Unknown penicillin: Unknown insulin: Unknown Intolerances: Aspir 81: GI Upset Recent Lab Results: Results: CBC: 03/20/2018 04:03 \ Hgb / \ 11.0 L / WBC Plt 19.0 H 233 / Hct \ / 34.8 L \ RBC: 3.82 L MCV: 91 Neutrophil %: 73.4 RFP: 03/20/2018 04:03 NA+ Cl- BUN / 137 100 28 H / Glucose 158 H K+ HCO3- Creat \ 4.7 30 0.72 \ Calcium : 9.3Anion Gap : 12 Albumin : 2.7 L Phos : 2.3 L Results: Impression: 1.Slight interval improvement in left basilar atelectasis. Xray Chest 1 View [Mar 20 2018 11:40AM] Assessment and Plan: Daily Risk Screen: Does patient have a central lineno Does patient have an indwelling urinary catheterno Is the patient intubatedno Neurology: Diagnosis: 67 y/o s/p meningioma resection complicated by brainstem CVA with dysphagia, aspiration pneumonia, initially with MRSA now with PSAG that is pansensitive, and hypercapneic and hypoxemic respiratory failure. Neuro: Did not sleep well, attempt with CPAP failed and may have been to stimulating for him. We are reluctant to use any sedation due to risk of delirium and over sedation. - continue PT and OT - continue valproic acid - mobilize daily - scheduled melatonin Pulm/ID: CXR with stable improvement and increased aeration to the left. Psuedamonas culture+, treating with zosyn. Did not tolerate CPAP and refuses from here on to try it. WBC count increased again today, no fevers. Some loose stools. Completed course of linezolid for the MRSA. - c diff toxin negative - repeat sputum cx ordered. Growing Gram negative Bacilli - continue to wean O2 - continue pulmonary toilet with IPV, 3% nebs, percussion, and NT suctioning. Will decrease IPV to Q6 and this way he will get a treatement Q4 and will evaluate to see if that interval keeps lung inflated. - CXR in am - continue piptazo and stop 03/26 (per ID recs for 14 day course); considering de-escalation of antibiotics as ID has signed off, but will hold off given increasing WBC - daily CBC CV: BP stable, holding home amlodipine, HCTZ, and lisinopril for now. HFpEF. FEN/GI: Electrolytes stable, sodium normal. PO4 still low. On enteral feeds via PEG. Loose stools, nutrition consulted to evaluate if could be formula related. - replete PO4 - continue feeds - continue small amount of free water, stop if Na < 140 - follow stools - daily RFP - continue PPI - f/u nutrition recs Endo: Type II DM, on glargine and mild scale. BG better controlled, now in goal range 140-180. On 40 units of glargine at home, now on 30 units here. - continue glargine to 30 units daily - continue mild scale for now Dispo: DNAR and DNI. Nephew updated. Pt discussed with Dr Arana Code Status: Code StatusDNAR with Added Limitations Signature/Cosignature/Attestation: Comments/ Additional Findings I agree with above, I personally saw and examined the patient plan to trasnfer to floor continue chest CPT change AB to levofloxacin Electronic Signatures: Ricardo Arana) (Signed 20-Mar-2018 18:17) Authored: Assessment and Plan, Signature/Cosignature/Attestation Co-Signer: Service, Subjective Data, Objective Data, Assessment and Plan, Signature/Cosignature/Attestation Jairon Lomas ( (Fellow)) (Signed 20-Mar-2018 17:13) Authored: Service, Subjective Data, Objective Data, Assessment and Plan, Signature/Cosignature/Attestation Last Updated: 20-Mar-2018 18:17 by Ricardo Arana) GLUCOSE-POCT Collected: 03/20/2018 Status: F Source: [facility] 4:05 PM [facility]OSPITALS REPOSITORY TYPE CODE TESTS RESULT OUT OF RANGE REFERENCE UNITS LAB GLUP(LOINC) 74 - 99 mg/dL High 149 GLUCOSE-POCT Performed By: #### GLUPO #### [facility] [address] [place] [address] GLUCOSE-POCT Collected: 03/20/2018 Status: F Source: [facility] 11:38 AM [facility] REPOSITORY TYPE CODE TESTS RESULT OUT OF RANGE REFERENCE UNITS LAB GLUP(LOINC) 74 - 99 mg/dL High 167 GLUCOSE-POCT Performed By: #### GLUPO #### [facility] [address] [place] [address] TH CHEST 1 VIEW Observed: 03/20/2018 Status: F Source: [facility] 9:27 AM HOSPITALS REPOSITORY Patient Name: DIPESH BERMUDEZ STUDY: CHEST 1 VIEW; 03/20/2018 9:27 am INDICATION: Signs/Symptoms: follow-up atelectasis. COMPARISON: 03/19/2018 ACCESSION NUMBER(S): [id number] ORDERING CLINICIAN: JAIRON LOMAS FINDINGS: CARDIOMEDIASTINAL SILHOUETTE: Cardiomediastinal silhouette is normal in size and configuration. LUNGS: Mild peribronchial interstitial prominence. No definite focal pneumonia. Slight improvement in left basilar aeration but follow-up with PA and lateral x-ray is recommended. ABDOMEN: No remarkable upper abdominal findings. BONES: No acute osseous changes. IMPRESSION: 1. Slight interval improvement in left basilar atelectasis. Electronically signed by: Brandee COTTER MD GLUCOSE-POCT Collected: 03/20/2018 Status: F Source: [facility] 7:42 AM HOSPITALS REPOSITORY TYPE CODE TESTS RESULT OUT OF RANGE REFERENCE UNITS LAB GLUP(LOINC) 74 - 99 mg/dL High 172 GLUCOSE-POCT Performed By: #### GLUPO #### [facility] [address] [place] [address] GLUCOSE-POCT Collected: 03/20/2018 Status: F Source: [facility] 4:42 AM [facility]ITALS REPOSITORY TYPE CODE TESTS RESULT OUT OF RANGE REFERENCE UNITS LAB GLUP(LOINC) 74 - 99 mg/dL High 137 GLUCOSE-POCT Performed By: #### GLUPO #### [facility] [address] [place] [address] CBC AND DIFFERENTIAL Collected: 03/20/2018 Status: F Source: [facility] 4:03 AM [facility]ITALS REPOSITORY TYPE CODE TESTS RESULT OUT OF REFERENCE UNITS RANGE LAB WBCR(LOINC 4.4 - 11.3 x10E9/L ) WBC High 19.0 LAB NRBC(LOINC 0.0-0.0 /100 WBC ) NUCLEATED RBC 0.0 LAB RBCCT(LOIN 4.50 - 5.90 x10E12/L C) Low RBC 3.82 LAB HGB(LOINC) 13.5 - 17.5 g/dL Low HGB 11.0 LAB HCT(LOINC) 41.0 - 52.0 % Low HCT 34.8 LAB MCV(LOINC) 80 - 100 fL MCV 91 LAB MCHC2(LOIN 32.0 - 36.0 g/dL C) Low MCHC 31.6 LAB PLTCT(LOIN 150 - 450 x10E9/L C) PLT 233 LAB RDWCV(LOIN 11.5 - 14.5 % C) RDW-CV High 17.2 LAB NEUT(LOINC 40.0 - 80.0 % ) % NEUTROPHIL 73.4 LAB IG(LOINC) 0.0 - 0.9 % % AUTOMATED 3.9 IMMATURE GRAN Result Comment: Percent differential counts (%) should be interpreted in the context of the absolute cell counts (cells/L). LAB LYMPH(LOINC) 13.0 - % 44.0 % LYMPHOCYTE 14.2 LAB MONO(LOINC) 2.0 - 10.0 % % MONOCYTE 6.6 LAB EOS(LOINC) 0.0 - 6.0 % % EOSINOPHIL 1.1 LAB BASO(LOINC) 0.0 - 2.0 % % BASOPHIL 0.8 LAB #NEUT(LOINC) 1.20 - x10E9/L 7.70 NEUTROPHIL High 13.97 LAB #LYMP(LOINC) 1.20 - x10E9/L 4.80 LYMPHOCYTE 2.70 LAB #MONO(LOINC) 0.10 - x10E9/L 1.00 MONOCYTE High 1.26 LAB #EOS(LOINC) 0.00 - x10E9/L 0.70 EOSINOPHIL 0.20 LAB #BASO(LOINC) 0.00 - x10E9/L 0.10 BASOPHIL High 0.16 Performed By: #### CBCDF #### [facility] [address] [place] [address] RENAL FUNCTION PANEL Collected: 03/20/2018 Status: F Source: [facility] 4:03 AM [facility]OSPITALS REPOSITORY TYPE CODE TESTS RESULT OUT OF REFERENCE UNITS RANGE LAB GLU(LOINC) 74 - 99 mg/dL GLUCOSE High 158 LAB SOD(LOINC) 136 - 145 mmol/L SODIUM 137 LAB K(LOINC) 3.5 - 5.3 mmol/L POTASSIUM 4.7 LAB CHLOR(LOIN 98 - 107 mmol/L C) CHLORIDE 100 LAB BIC(LOINC) 21 - 32 mmol/L BICARBONATE 30 LAB ANGAP(LOIN 10 - 20 mmol/L C) ANION GAP 12 LAB UREA(LOINC 6 - 23 mg/dL ) UREA High NITROGEN 28 LAB CREA(LOINC 0.50 - 1.30 mg/dL ) CREATININE 0.72 LAB GFRFN(LOIN >60 mL/min/1.7 C) 3m2 GFR-NON AM. >60 LAB GFRAA(LOIN >60 mL/min/1.7 C) 3m2 GFR- AM. >60 Result Comment: CALCULATIONS OF ESTIMATED GFR ARE PERFORMED USING THE MDRD STUDY EQUATION FOR THE IDMS-TRACEABLE CREATININE METHODS. CLIN CHEM 2007;53:766-72 LAB CA(LOINC) 8.6 - 10.6 mg/dL CALCIUM 9.3 LAB PHOS(LOINC) 2.5 - 4.9 mg/dL PHOSPHORUS Low 2.3 Result Comment: The performance characteristics of phosphorus testing in heparinized plasma have been validated by the individual laboratory site where testing is performed. Testing on heparinized plasma is not approved by the FDA; however, such approval is not necessary. LAB ALB(LOINC) 3.4 - 5.0 g/dL Low ALBUMIN 2.7 Performed By: #### RENAL #### [facility] [address] [place] [address] GLUCOSE-POCT Collected: 03/20/2018 Status: F Source: [facility] 12:36 AM HOSPITALS REPOSITORY TYPE CODE TESTS RESULT OUT OF RANGE REFERENCE UNITS LAB GLUP(LOINC) 74 - 99 mg/dL High 104 GLUCOSE-POCT Performed By: #### GLUPO #### [facility] [address] [place] [address] GLUCOSE-POCT Collected: 03/19/2018 Status: F Source: [facility] 7:49 PM [facility]OSPITALS REPOSITORY TYPE CODE TESTS RESULT OUT OF RANGE REFERENCE UNITS LAB GLUP(LOINC) 74 - 99 mg/dL High 166 GLUCOSE-POCT Performed By: #### GLUPO #### [facility] [address] [place] [address] CLOST.DIFF.TOXIN,PCR Collected: Status: F Source: [facility] 03/19/2018 6:25 PM HOSPITALS REPOSITORY TYPE CODE TESTS RESULT OUT OF REFERENCE UNITS RANGE LAB CDPCR(LOINC Not Detected ) NOT DETECTED CLOST.DIFF.T OXIN,PCR Result Comment: This assay detects the presence of the tcdB (toxin B) gene via DNA amplification, and results should be interpreted in the context of the patients history and clinical findings. This test cannot be performed on formed stools or used as a test of cure, and should not be performed more than once per 7 days. Performed By: #### CDPCR #### [facility] [address] [place] [address] Observed: 03/19/2018 Status: F Source: [facility] 5:50 PM HOSPITALS REPOSITORY CULT./SM,LOWER PATIENT: DIPESH BERMUDEZ LOCATION: [facility] BILL#: [id number] : 54 AGE: SEX: M ORDERED BY: EMMANUELLE MARC SOURCE: TRACHEAL ASPIRATE COLLECTED: 03/19/18 17:50 ANTIBIOTICS AT [facility].: RECEIVED : 03/19/18 18:26 SITE: [facility] Collins S U L T S GRAM STAIN FINAL 03/19/18 23:14 3+ GRANULOCYTES. 4+ GRAM (-) BACILLI. RESPIRATORY CULT./,LOWER FINAL 03/21/18 08:36 ISOLATE1 : Pseudomonas aeruginosa 4+ Organism Ps aerug Antibiotic BP INTRP Aztreonam R Ceftazidime R Ciprofloxacin S Cefepime I Gentamicin S Imipenem S Levofloxacin S Meropenem S Piperc/Tazobact R Tobramycin S S=SUSCEPTIBLE I=INTERMEDIATE R=RESISTANT SDD=SUSCEPTIBLE DOSE DEPENDENT NS=NONSUSCEPTIBLE X=REPORTED IN ERROR Performed By: #### RESPL #### [facility] [address] [address] [address] GLUCOSE-POCT Collected: 03/19/2018 Status: F Source: [facility] 3:22 PM HOSPITALS REPOSITORY TYPE CODE TESTS RESULT OUT OF RANGE REFERENCE UNITS LAB GLUP(LOINC) 74 - 99 mg/dL High 165 GLUCOSE-POCT Performed By: #### GLUPO #### [facility] [address] [place] [address] DAILY PROGRESS NOTE - Observed: 03/19/2018 Status: COMPLETED Source: [facility] 2:55 PM HOSPITALS REPOSITORY Service: Critical Care Service: ServiceMICU Subjective Data: ID Statement: DIPESH BERMUDEZ is a 67 year old Male who is Hospital Day # 38 and ICU Day #2 and POD #36 for left retrosigmoid craniotomy for tumor resection. No events overnight. Objective Data: Objective Information T PRBPSpO2 [id number]/15260% Date/Time03/19 12: 13: 13: 13: 13:00 Range(35.5C - 36.6C ) (59 - 90 ) (11 - 25 ) (122 - 166 )/ (65 - 133 ) (85% - 100% ) As of 19-Mar-2018 08:00:00, patient is on 2 L/min of oxygen via nasal cannula. Pain with Activity reported at 03/18 16:00: 0 Pain at Rest reported at 03/18 20:00: 0 ---- Intake and Output ----- Mn/Dy/Year TimeIntakeOutputNet Mar 19, 2018 2:00 [id number] Mar 19, 2018 6:00 [id number] Mar 18, 2018 10:00 [id number] The Intake and Output Totals for the last 24 hours are: IntakeOutputNet [id number] Drain and tube details (included in I&O totals) 1290 cc Indwelling Catheter - Urethral( 19-Mar-2018 06:00:00 ) Weights 03/19 5:00: Weight in kg (Weight (kg)) 88.3 03/19 5:00: Weight in lbs ((lbs)) 194.6 T PRBPSpO2 [id number]/69544% Date/Time03/19 12: 13: 13: 13: 13:00 Range(35.5C - 36.6C ) (59 - 90 ) (11 - 25 ) (122 - 166 )/ (65 - 133 ) (85% - 100% ) As of 19-Mar-2018 08:00:00, patient is on 2 L/min of oxygen via nasal cannula. Pain with Activity reported at 03/18 16:00: 0 Pain at Rest reported at 03/18 20:00: 0 Weights 03/19 5:00: Weight in kg (Weight (kg)) 88.3 03/19 5:00: Weight in lbs ((lbs)) 194.6 Physical Exam: Physical Exam: Neurological: Alert, answering questions appropriately, dysarthria continued right arm drift Cardiovascular: RRR Respiratory/Thorax: decreased breath sounds left base Genitourinary: flynn Gastrointestinal: + BS soft NT ND Constitutional: no distress Eyes: no icterus ENMT: moist Head/Neck: supple Extremities: 1+ LE chronic stasis RUE ML site dressed and clear Allergies: Allergies: Codeine Sulfate: Unknown penicillin: Unknown insulin: Unknown Intolerances: Aspir 81: GI Upset Medications: Medications: Continuous Medications No continuous medications are active Scheduled Medications 1. Atorvastatin: 40 mg Oral Daily 2. Budesonide 0.5 mg/ 2 mL Nebulizer Soln: 2 mL Inhalation Every 12 Hours 3. Docusate Oral Liquid: 100 mg Oral 2 Times a Day 4. Enoxaparin SubCutaneous: 40 mg SubCutaneous Every 24 Hours 5. Esomeprazole Oral Packet: 40 mg PEG Tube 2 Times a Day 6. Insulin Glargine (Lantus) Injectable: 30 unit(s) SubCutaneous Every 24 Hours 7. Insulin Lispro Mild Corrective Scale: unit(s) SubCutaneous Every 4 Hours 8. Melatonin: 3 mg Oral At Bedtime 9. Nicotine 14 mg/ 24 hour TransDermal: 1 patch TransDermal Every 24 Hours 10. Nystatin Oral Liquid: 647308 unit(s) Oral Every 6 Hours 11. Petrolatum Topical: 1 application(s) Topical 2 Times a Day 12. Piperacillin - Tazobactam 4.5 gram/Iso-osmotic 100 mL Premix IVPB: 100 mL IntraVenous Piggyback Every 6 Hours 13. Polyethylene Glycol: 17 gram(s) Oral Daily 14. Saliva Substitute: 5 mL Oral 4 Times a Day 15. Silodosin (NON - Formulary): 8 mg NasoGastric Tube Daily 16. Simethicone Oral Liquid Drops: 80 mg Oral 4 Times a Day After Meals 17. Sodium Chloride 0.9% Injectable Flush: 10 mL IntraVenous Flush Every 12 Hours 18. Sodium Chloride 0.9% Injectable Flush: 10 mL IntraVenous Flush Every 12 Hours 19. Sodium Chloride 3% Nebulizer Soln: 3 mL Inhalation Every 4 Hours 20. Valproic Acid (Depakene) Oral Liquid: 250 mg PEG Tube Every 12 Hours PRN Medications 1. Acetaminophen: 650 mg Oral Every 6 Hours 2. Albuterol 2.5 mg/ 3 mL Nebulizer Soln: 3 mL Inhalation Every 2 Hours 3. Bisacodyl Rectal: 10 mg Rectal Daily 4. Dextrose 50% in Water Injectable: 25 gram(s) IntraVenous Push Every 15 Minutes 5. Fleet Adult (Sodium Phosphate) Rectal: 1 enema Rectal Daily 6. Glucagon Injectable: 1 mg IntraMuscular Every 15 Minutes 7. Heparin Flush 10 unit/ mL PF Injectable: 5 mL IntraVenous Flush Every 12 Hours 8. Heparin Flush 10 unit/ mL PF Injectable PRN: 5 mL IntraVenous Flush According to Flush Policy 9. Heparin Flush 10 unit/ mL PF Injectable PRN: 5 mL IntraVenous Flush According to Flush Policy 10. Ondansetron Injectable: 4 mg IntraVenous Push Every 6 Hours 11. Polyethylene Glycol: 17 gram(s) Oral Daily 12. Sodium Chloride 0.9% Injectable Flush PRN: 10 mL IntraVenous Flush According to Flush Policy 13. Sodium Chloride 0.9% Injectable Flush PRN: 20 mL IntraVenous Flush According to Flush Policy Recent Lab Results: Results: CBC: 03/19/2018 03:57 \ Hgb / \ 10.1 L / WBC Plt 15.7 H 230 / Hct \ / 31.4 L \ RBC: 3.42 L MCV: 92 Neutrophil %: 74.1 RFP: 03/19/2018 03:57 NA+ Cl- BUN / 140 100 30 H / Glucose 154 H K+ HCO3- Creat \ 4.4 35 H 0.68 \ Calcium : 8.7Anion Gap : 9 L Albumin : 2.4 L Phos : 2.3 L Results: Impression: 1. Continued left basilar atelectasis and correlate with residual atelectasis/pneumonia. Xray Chest 1 View [Mar 19 2018 10:58AM] Impression: 1. Interval slight improvement in left lung aeration with persistent left basilar opacity, likely representing combination of atelectasis and pleural effusion. Again, correlate with concern for central mucous plugging and underlying infection. Xray Chest 1 View [Mar 18 2018 9:46AM] Assessment and Plan: Daily Risk Screen: Does patient have a central lineno Does patient have an indwelling urinary catheterno Is the patient intubatedno Neurology: Diagnosis: 67 y/o s/p meningioma resection complicated by brainstem CVA with dysphagia, aspiration pneumonia, initially with MRSA now with PSAG that is pansensitive, and hypercapneic and hypoxemic respiratory failure. Neuro: Did not sleep well, attempt with CPAP failed and may have been to stimulating for him. We are reluctant to use any sedation due to risk of delirium and over sedation. - continue PT and OT - continue valproic acid - mobilize daily - scheduled melatonin Pulm/ID: CXR with stable improvement and increased aeration to the left. Psuedamonas culture+, treating with zosyn. Did not tolerate CPAP and refuses from here on to try it. WBC count increased again today, no fevers. Some loose stools. Completed course of linezolid for the MRSA. - c diff toxin - repeat sputum cx ordered - continue to wean O2 - continue pulmonary toilet with IPV, 3% nebs, percussion, and NT suctioning. Will decrease IPV to Q6 and this way he will get a treatement Q4 and will evaluate to see if that interval keeps lung inflated. - CXR in am - continue piptazo and stop 11/10 (per ID recs for 14 day course); considering de-escalation of antibiotics as ID has signed off, but will hold off given increasing WBC - daily CBC CV: BP stable, holding home amlodipine, HCTZ, and lisinopril for now. HFpEF. FEN/GI: Electrolytes stable, sodium normal. PO4 still low. On enteral feeds via PEG. Loose stools, nutrition consulted to evaluate if could be formula related. - replete PO4 - continue feeds - continue small amount of free water, stop if Na < 140 - follow stools - daily RFP - continue PPI - f/u nutrition recs Endo: Type II DM, on glargine and mild scale. BG better controlled, now in goal range 140-180. On 40 units of glargine at home, now on 30 units here. - continue glargine to 30 units daily - continue mild scale for now Dispo: DNAR and DNI. Nephew updated. Pt discussed with Dr Arana Code Status: Code StatusDNAR with Added Limitations Electronic Signatures: Ricardo Arana) (Signed 19-Mar-2018 19:43) Authored: Assessment and Plan, Signature/Cosignature/Attestation Co-Signer: Service, Subjective Data, Objective Data, Assessment and Plan, Signature/Cosignature/Attestation Ralf Hughes (Fellow)) (Signed 19-Mar-2018 15:20) Authored: Service, Subjective Data, Objective Data, Assessment and Plan, Signature/Cosignature/Attestation Last Updated: 19-Mar-2018 19:43 by Ricardo Arana) GLUCOSE-POCT Collected: 03/19/2018 Status: F Source: [facility] 11:53 AM HOSPITALS REPOSITORY TYPE CODE TESTS RESULT OUT OF RANGE REFERENCE UNITS LAB GLUP(LOINC) 74 - 99 mg/dL High 155 GLUCOSE-POCT Performed By: #### GLUPO #### [facility] [address] [place] [address] TH CHEST 1 VIEW Observed: 03/19/2018 Status: F Source: [facility] 8:03 AM [facility] REPOSITORY Patient Name: DIPESH BERMUDEZ STUDY: CHEST 1 VIEW; 03/19/2018 8:03 am INDICATION: Signs/Symptoms: am film f/u atelectasis. COMPARISON: 03/18/2018 ACCESSION NUMBER(S): [id number] ORDERING CLINICIAN: MO KINGSTON FINDINGS: CARDIOMEDIASTINAL SILHOUETTE: Cardiomediastinal silhouette is normal in size and configuration. LUNGS: Mild left perihilar edema with left basilar atelectasis/effusion. Correlate pneumonia. Correlate with subphrenic process. ABDOMEN: No remarkable upper abdominal findings. BONES: No acute osseous changes. IMPRESSION: 1. Continued left basilar atelectasis and correlate with residual atelectasis/pneumonia. Electronically signed by: Brandee COTTER MD GLUCOSE-POCT Collected: 03/19/2018 Status: F Source: [facility] 7:49 AM HOSPITALS REPOSITORY TYPE CODE TESTS RESULT OUT OF RANGE REFERENCE UNITS LAB GLUP(LOINC) 74 - 99 mg/dL High 165 GLUCOSE-POCT Performed By: #### GLUPO #### [facility] [address] [place] [address] GLUCOSE-POCT Collected: 03/19/2018 Status: F Source: [facility] 4:05 AM [facility] REPOSITORY TYPE CODE TESTS RESULT OUT OF RANGE REFERENCE UNITS LAB GLUP(LOINC) 74 - 99 mg/dL High 173 GLUCOSE-POCT Performed By: #### GLUPO #### [facility] [address] [place] [address] RENAL FUNCTION PANEL Collected: 03/19/2018 Status: F Source: [facility] 3:57 AM [facility] REPOSITORY TYPE CODE TESTS RESULT OUT OF REFERENCE UNITS RANGE LAB GLU(LOINC) 74 - 99 mg/dL GLUCOSE High 154 LAB SOD(LOINC) 136 - 145 mmol/L SODIUM 140 LAB K(LOINC) 3.5 - 5.3 mmol/L POTASSIUM 4.4 LAB CHLOR(LOIN 98 - 107 mmol/L C) CHLORIDE 100 LAB BIC(LOINC) 21 - 32 mmol/L BICARBONATE High 35 LAB ANGAP(LOIN 10 - 20 mmol/L C) Low ANION GAP 9 LAB UREA(LOINC 6 - 23 mg/dL ) UREA High NITROGEN 30 LAB CREA(LOINC 0.50 - 1.30 mg/dL ) CREATININE 0.68 LAB GFRFN(LOIN >60 mL/min/1.7 C) 3m2 GFR-NON AM. >60 LAB GFRAA(LOIN >60 mL/min/1.7 C) 3m2 GFR- AM. >60 Result Comment: CALCULATIONS OF ESTIMATED GFR ARE PERFORMED USING THE MDRD STUDY EQUATION FOR THE IDMS-TRACEABLE CREATININE METHODS. CLIN CHEM 2007;53:766-72 LAB CA(LOINC) 8.6 - 10.6 mg/dL CALCIUM 8.7 LAB PHOS(LOINC) 2.5 - 4.9 mg/dL PHOSPHORUS Low 2.3 Result Comment: The performance characteristics of phosphorus testing in heparinized plasma have been validated by the individual laboratory site where testing is performed. Testing on heparinized plasma is not approved by the FDA; however, such approval is not necessary. LAB ALB(LOINC) 3.4 - 5.0 g/dL Low ALBUMIN 2.4 Performed By: #### RENAL #### [facility] [address] [place] [address] CBC AND DIFFERENTIAL Collected: 03/19/2018 Status: F Source: [facility] 3:57 AM [facility]ITALS REPOSITORY TYPE CODE TESTS RESULT OUT OF REFERENCE UNITS RANGE LAB WBCR(LOINC 4.4 - 11.3 x10E9/L ) WBC High 15.7 LAB NRBC(LOINC 0.0-0.0 /100 WBC ) NUCLEATED RBC 0.0 LAB RBCCT(LOIN 4.50 - 5.90 x10E12/L C) Low RBC 3.42 LAB HGB(LOINC) 13.5 - 17.5 g/dL Low HGB 10.1 LAB HCT(LOINC) 41.0 - 52.0 % Low HCT 31.4 LAB MCV(LOINC) 80 - 100 fL MCV 92 LAB MCHC2(LOIN 32.0 - 36.0 g/dL C) MCHC 32.2 LAB PLTCT(LOIN 150 - 450 x10E9/L C) PLT 230 LAB RDWCV(LOIN 11.5 - 14.5 % C) RDW-CV High 16.5 LAB NEUT(LOINC 40.0 - 80.0 % ) % NEUTROPHIL 74.1 LAB IG(LOINC) 0.0 - 0.9 % % AUTOMATED 2.3 IMMATURE GRAN Result Comment: Percent differential counts (%) should be interpreted in the context of the absolute cell counts (cells/L). LAB LYMPH(LOINC) 13.0 - % 44.0 % LYMPHOCYTE 14.7 LAB MONO(LOINC) 2.0 - 10.0 % % MONOCYTE 6.4 LAB EOS(LOINC) 0.0 - 6.0 % % EOSINOPHIL 1.9 LAB BASO(LOINC) 0.0 - 2.0 % % BASOPHIL 0.6 LAB #NEUT(LOINC) 1.20 - x10E9/L 7.70 NEUTROPHIL High 11.62 LAB #LYMP(LOINC) 1.20 - x10E9/L 4.80 LYMPHOCYTE 2.31 LAB #MONO(LOINC) 0.10 - x10E9/L 1.00 MONOCYTE 1.00 LAB #EOS(LOINC) 0.00 - x10E9/L 0.70 EOSINOPHIL 0.30 LAB #BASO(LOINC) 0.00 - x10E9/L 0.10 BASOPHIL 0.10 Performed By: #### CBCDF #### [facility] [address] [place] [address] GLUCOSE-POCT Collected: 03/18/2018 Status: F Source: [facility] 11:41 PM [facility]ALS REPOSITORY TYPE CODE TESTS RESULT OUT OF RANGE REFERENCE UNITS LAB GLUP(LOINC) 74 - 99 mg/dL High 184 GLUCOSE-POCT Performed By: #### GLUPO #### [facility] [address] [place] [address] GLUCOSE-POCT Collected: 03/18/2018 Status: F Source: [facility] 7:22 PM [facility] REPOSITORY TYPE CODE TESTS RESULT OUT OF RANGE REFERENCE UNITS LAB GLUP(LOINC) 74 - 99 mg/dL High 163 GLUCOSE-POCT Performed By: #### GLUPO #### [facility] [address] [place] [address] GLUCOSE-POCT Collected: 03/18/2018 Status: F Source: [facility] 11:44 AM [facility] REPOSITORY TYPE CODE TESTS RESULT OUT OF RANGE REFERENCE UNITS LAB GLUP(LOINC) 74 - 99 mg/dL High 178 GLUCOSE-POCT Performed By: #### GLUPO #### [facility] [address] [place] [address] NUTRITION THERAPY-NOTE Observed: 03/18/2018 Status: UNK Source: [facility] 11:43 AM [facility]OSPITALS REPOSITORY Assessment Subjective/Objective: Note Type: Note Note Authored by: Registered Dietitian Career Placement Specialist Pager Number: [phone] Nutrition Note: Reconsulted to see patient for loose stools while on TF. He has had 2 loose BMs so far today and 3 yesterday. Pt is currently on Diabetisource AC@ goal rate of 80mls/hr. This goal rate has 29grams of fiber. Pt's blood sugars had been better today but had been in the mid-100s to low 200s in the days before that. Would be concerned about changing pt to a lower fiber tube feed as blood sugars are just starting to get better controlled-- fiber in TF can be helpful in controlling blood sugars. High amounts of fiber can cause loose stools. Changing TF to a semi-elemental formula such as Peptamen 1.5 which has no fiber in it would provide patient with 100grams more carbs daily compared to current feeding regimen. For now, can continue on current TF regimen. May want to consider adding probiotics to med regimen to help with encouraging growth of good gut bacteria as this may help stool output-- lactobacillus tablets BID to start. May need to order PRN Imodium as well. Following-- [id number] . Electronic Signatures: Margarita Harrington (JORDYN, NOAH) (Signed 18-Mar-2018 12:05) Authored: Assessment Subjective/Objective Last Updated: 18-Mar-2018 12:05 by Margarita Harrington (JORDYN, NOAH) TH CHEST 1 VIEW Observed: 03/18/2018 Status: F Source: [facility] 7:48 AM [facility] REPOSITORY Patient Name: DIPESH BERMUDEZ STUDY: CHEST 1 VIEW; 03/18/2018 7:48 am INDICATION: Signs/Symptoms: am film. COMPARISON: Chest radiograph from 03/17/2018 ACCESSION NUMBER(S): [id number] ORDERING CLINICIAN: MO KINGSTON FINDINGS: The cardiomediastinal silhouette is stable with respect to size, but now with slightly improved partial obscuration of left heart border. There has been interval slight improvement in left lung aeration with persistent left basilar retrocardiac opacity. Similar mild right basilar atelectasis without sizable right-sided pleural effusion. No pneumothorax. No acute osseous abnormality. IMPRESSION: 1. Interval slight improvement in left lung aeration with persistent left basilar opacity, likely representing combination of atelectasis and pleural effusion. Again, correlate with concern for central mucous plugging and underlying infection. Electronically signed by: LEXI LI MD GLUCOSE-POCT Collected: 03/18/2018 Status: F Source: [facility] 7:31 AM [facility]ALS REPOSITORY TYPE CODE TESTS RESULT OUT OF RANGE REFERENCE UNITS LAB GLUP(LOINC) 74 - 99 mg/dL High 179 GLUCOSE-POCT Performed By: #### GLUPO #### [facility] [address] [place] [address] DAILY PROGRESS NOTE - Observed: 03/18/2018 Status: COMPLETED Source: [facility] 6:17 AM [facility] REPOSITORY Service: Critical Care Service: ServiceMICU Subjective Data: ID Statement: DIPESH BERMUDEZ is a 67 year old Male who is Hospital Day # 37 and ICU Day #6 and POD #35 for left retrosigmoid craniotomy for tumor resection. Pt is awake and alert this am, no complaints. When asked about the mask last night, he said that was a trip, never again. Per RN was on CPAP 12-2 am but slept little and did not tolerate. Slept very little after that as well. Objective Data: Objective Information T PRBPSpO2 [id number]/55627% Date/Time03/18 4:00105/18 5:00105/18 5:0012 5:00105/18 5:00 Range(35.9C - 36.6C ) (57 - 86 ) (11 - 25 ) (112 - 149 )/ (59 - 93 ) (90% - 100% ) --- Intake and Output ----- The Intake and Output Totals for the last 24 hours are: IntakeOutputNet [id number] Drain and tube details (included in I&O totals) 970 cc Indwelling Catheter - Urethral( 18-Mar-2018 06:00:00 ) on room air last evening on 2 l/m NC this am chemsticks 154-175 Weights 03/18 4:00: Weight in kg (Weight (kg)) 89.6 03/18 4:00: Weight in lbs ((lbs)) 197.5 Physical Exam: Physical Exam: Neurological: awake answers questions, speech somewhat garbled but follows commands REMY continued right arm drift Cardiovascular: RRR Respiratory/Thorax: bronchial left base Genitourinary: flynn Gastrointestinal: + BS soft NT ND Constitutional: no distress Eyes: no icterus ENMT: moist Head/Neck: supple Extremities: 1+ LE chronic stasis RUE ML site dressed and clear Allergies: Allergies: Codeine Sulfate: Unknown penicillin: Unknown insulin: Unknown Intolerances: Aspir 81: GI Upset Medications: Medications: Scheduled Medications 1. Atorvastatin: 40 mg Oral Daily 2. Budesonide 0.5 mg/ 2 mL Nebulizer Soln: 2 mL Inhalation Every 12 Hours 3. Docusate Oral Liquid: 100 mg Oral 2 Times a Day 4. Enoxaparin SubCutaneous: 40 mg SubCutaneous Every 24 Hours 5. Esomeprazole Oral Packet: 40 mg PEG Tube 2 Times a Day 6. Insulin Glargine (Lantus) Injectable: 30 unit(s) SubCutaneous Every 24 Hours 7. Insulin Lispro Mild Corrective Scale: unit(s) SubCutaneous Every 4 Hours 8. Melatonin: 3 mg Oral At Bedtime 9. Nicotine 14 mg/ 24 hour TransDermal: 1 patch TransDermal Every 24 Hours 10. Nystatin Oral Liquid: 132711 unit(s) Oral Every 6 Hours 11. Petrolatum Topical: 1 application(s) Topical 2 Times a Day 12. Piperacillin - Tazobactam 4.5 gram/Iso-osmotic 100 mL Premix IVPB: 100 mL IntraVenous Piggyback Every 6 Hours 13. Polyethylene Glycol: 17 gram(s) Oral Daily 14. Potassium Acid Phosphate: 500 mg Oral Every 6 Hours 15. Saliva Substitute: 5 mL Oral 4 Times a Day 16. Silodosin (NON - Formulary): 8 mg NasoGastric Tube Daily 17. Simethicone Oral Liquid Drops: 80 mg Oral 4 Times a Day After Meals 18. Sodium Chloride 0.9% Injectable Flush: 10 mL IntraVenous Flush Every 12 Hours 19. Sodium Chloride 0.9% Injectable Flush: 10 mL IntraVenous Flush Every 12 Hours 20. Sodium Chloride 3% Nebulizer Soln: 3 mL Inhalation Every 4 Hours 21. Valproic Acid (Depakene) Oral Liquid: 250 mg PEG Tube Every 12 Hours PRN Medications 1. Acetaminophen: 650 mg Oral Every 6 Hours 2. Albuterol 2.5 mg/ 3 mL Nebulizer Soln: 3 mL Inhalation Every 2 Hours 3. Bisacodyl Rectal: 10 mg Rectal Daily 4. Dextrose 50% in Water Injectable: 25 gram(s) IntraVenous Push Every 15 Minutes 5. Fleet Adult (Sodium Phosphate) Rectal: 1 enema Rectal Daily 6. Glucagon Injectable: 1 mg IntraMuscular Every 15 Minutes 7. Heparin Flush 10 unit/ mL PF Injectable: 5 mL IntraVenous Flush Every 12 Hours 8. Heparin Flush 10 unit/ mL PF Injectable PRN: 5 mL IntraVenous Flush According to Flush Policy 9. Heparin Flush 10 unit/ mL PF Injectable PRN: 5 mL IntraVenous Flush According to Flush Policy 10. Ondansetron Injectable: 4 mg IntraVenous Push Every 6 Hours 11. Polyethylene Glycol: 17 gram(s) Oral Daily 12. Sodium Chloride 0.9% Injectable Flush PRN: 10 mL IntraVenous Flush According to Flush Policy 13. Sodium Chloride 0.9% Injectable Flush PRN: 20 mL IntraVenous Flush According to Flush Policy Recent Lab Results: Results: CBC: 03/18/2018 03:33 \ Hgb / \ 10.0 L / WBC Plt 15.4 H 248 / Hct \ / 31.7 L \ RBC: 3.46 L MCV: 92 RFP: 03/18/2018 03:41 NA+ Cl- BUN / 140 98 35 H / Glucose 169 H K+ HCO3- Creat \ 4.0 36 H 0.68 \ Calcium : 8.8Anion Gap : 10 Albumin : 2.4 L Phos : 1.9 L Coagulation: 03/18/2018 03:41 PT / 11.4 / -------< INR < 1.0 PTT\ 29 \ Results: 11 am CXR: FINDINGS: The cardiomediastinal silhouette is stable with respect to size, but now with slightly improved partial obscuration of left heart border. There has been interval slight improvement in left lung aeration with persistent left basilar retrocardiac opacity. Similar mild right basilar atelectasis without sizable right-sided pleural effusion. No pneumothorax. No acute osseous abnormality. IMPRESSION: 1. Interval slight improvement in left lung aeration with persistent left basilar opacity, likely representing combination of atelectasis and pleural effusion. Again, correlate with concern for central mucous plugging and underlying infection. Assessment and Plan: Daily Risk Screen: Does patient have a central lineno Does patient have an indwelling urinary catheteryes Plan for indwelling urinary catheter removal todayno The patient continues to require indwelling urinary catheterization for critically ill patients who need accurate urinary output measurements Is the patient intubatedno Neurology: Diagnosis: 67 y/o s/p meningioma resection complicated by brainstem CVA with dysphagia, aspiration pneumonia, initially with MRSA now with PSAG that is pansensitive, and hypercapneic and hypoxemic respiratory failure. Neuro: Did not sleep well, attempt with CPAP failed and may have been to stimulating for him. We are reluctant to use any sedation due to risk of delirium and over sedation. - continue PT and OT - continue valproic acid - mobilize daily - schedule melatonin Pulm/ID: Weaned to room air at least for a bit last night. CXR does show some improvement today, increased aeration to the left. On piptazo for PSAG day #6 of 14. Did not tolerate CPAP and refuses from here on to try it. WBC count increased again today, no fevers. Some loose stools. Completed course of linezolid for the MRSA. - c diff toxin - repeat sputum cx if produces - continue to wean O2 - continue pulmonary toilet with IPV, 3% nebs, percussion, and NT suctioning. Will decrease IPV to Q6 and this way he will get a treatement Q4 and will evaluate to see if that interval keeps lung inflated. - CXR in am - continue piptazo and stop 03/26 (per ID recs for 14 day course) - daily CBC CV: BP stable, holding home amlodipine, HCTZ, and lisinopril for now. HFpEF. FEN/GI: Electrolytes stable, sodium normal. PO4 still low. On enteral feeds via PEG. Loose stools, nutrition consulted to evaluate if could be formula related. - replete PO4 - continue feeds - continue small amount of free water, stop if Na < 140 - follow stools - daily RFP - continue PPI - f/u nutrition recs Endo: Type II DM, on glargine and mild scale. BG better controlled, now in goal range 140-180. On 40 units of glargine at home, now on 30 units here. - continue glargine to 30 units daily - continue mild scale for now Dispo: DNAR and DNI. Will update nephew via phone today. Pt discussed with Dr Ashley WADSWORTH 35 minutes critical care time Code Status: Code StatusDNAR Signature/Cosignature/Attestation: Provider/Team Contact Info-Pager [phone] Critical Care PatientI have reviewed and evaluated the most recent data and results, personally examined the patient, and formulated the plan of care as presented above. This patient was critically ill and required continued critical care treatment. Teaching and any separately billable procedures are not included in the time calculation. Billing Provider Critical Care Time35 minute(s) Primary Critical Care Issue/Treatment (See Assessment and Plan for greater detail)-- This patient has impending or acute respiratory failure. We are treating with appropriate medications, ventilatory and/or oxygenating support, as indicated, as well as intensive monitoring. Please see assessment and plan above for greater detail. Electronic Signatures: Mo Kingston ([employer] OPERATOR-GROUP MANAGER) (Signed 18-Mar-2018 11:41) Authored: Service, Subjective Data, Objective Data, Assessment and Plan, Signature/Cosignature/Attestation Last Updated: 18-Mar-2018 11:41 by Mo Kingston ([employer] OPERATOR-GROUP MANAGER) GLUCOSE-POCT Collected: 03/18/2018 Status: F Source: [facility] 4:08 AM [facility] REPOSITORY TYPE CODE TESTS RESULT OUT OF RANGE REFERENCE UNITS LAB GLUP(LOINC) 74 - 99 mg/dL High 160 GLUCOSE-POCT Performed By: #### GLUPO #### [facility] [address] [place] [address] RENAL FUNCTION PANEL Collected: 03/18/2018 Status: F Source: [facility] 3:41 AM [facility] REPOSITORY TYPE CODE TESTS RESULT OUT OF REFERENCE UNITS RANGE LAB GLU(LOINC) 74 - 99 mg/dL GLUCOSE High 169 LAB SOD(LOINC) 136 - 145 mmol/L SODIUM 140 LAB K(LOINC) 3.5 - 5.3 mmol/L POTASSIUM 4.0 LAB CHLOR(LOIN 98 - 107 mmol/L C) CHLORIDE 98 LAB BIC(LOINC) 21 - 32 mmol/L BICARBONATE High 36 LAB ANGAP(LOIN 10 - 20 mmol/L C) ANION GAP 10 LAB UREA(LOINC 6 - 23 mg/dL ) UREA High NITROGEN 35 LAB CREA(LOINC 0.50 - 1.30 mg/dL ) CREATININE 0.68 LAB GFRFN(LOIN >60 mL/min/1.7 C) 3m2 GFR-NON AM. >60 LAB GFRAA(LOIN >60 mL/min/1.7 C) 3m2 GFR- AM. >60 Result Comment: CALCULATIONS OF ESTIMATED GFR ARE PERFORMED USING THE MDRD STUDY EQUATION FOR THE IDMS-TRACEABLE CREATININE METHODS. CLIN CHEM 2007;53:766-72 LAB CA(LOINC) 8.6 - 10.6 mg/dL CALCIUM 8.8 LAB PHOS(LOINC) 2.5 - 4.9 mg/dL PHOSPHORUS Low 1.9 Result Comment: The performance characteristics of phosphorus testing in heparinized plasma have been validated by the individual laboratory site where testing is performed. Testing on heparinized plasma is not approved by the FDA; however, such approval is not necessary. LAB ALB(LOINC) 3.4 - 5.0 g/dL Low ALBUMIN 2.4 Performed By: #### RENAL #### [facility] [address] [place] [address] COAGULATION SCREEN Collected: 03/18/2018 Status: F Source: [facility] 3:41 AM [facility] TYPE CODE TESTS RESULT OUT OF REFERENCE UNITS RANGE LAB PT(LOINC) 9.7 - 12.7 sec PROTHROMBIN TIME 11.4 Result Comment: Note new reference range as of 03/08/2018. LAB INR(LOINC) 0.9 - 1.1 PT, INR 1.0 LAB APTT(LOINC) 28 - 38 sec APTT 29 Result Comment: Note new reference range as of 03/08/2018. THE APTT IS NO LONGER USED FOR MONITORING UNFRACTIONATED HEPARIN THERAPY. FOR MONITORING HEPARIN THERAPY, USE THE HEPARIN ASSAY. Performed By: #### COAGS #### [facility] [address] [place] [address] CBC Collected: 03/18/2018 Status: F Source: [facility] 3:33 AM [facility] TYPE CODE TESTS RESULT OUT OF REFERENCE UNITS RANGE LAB WBCR(LOINC 4.4 - 11.3 x10E9/L ) WBC High 15.4 LAB NRBC(LOINC 0.0-0.0 /100 WBC ) NUCLEATED RBC 0.0 LAB RBCCT(LOIN 4.50 - 5.90 x10E12/L C) Low RBC 3.46 LAB HGB(LOINC) 13.5 - 17.5 g/dL Low HGB 10.0 LAB HCT(LOINC) 41.0 - 52.0 % Low HCT 31.7 LAB MCV(LOINC) 80 - 100 fL MCV 92 LAB MCHC2(LOIN 32.0 - 36.0 g/dL C) Low MCHC 31.5 LAB PLTCT(LOIN 150 - 450 x10E9/L C) PLT 248 LAB RDWCV(LOIN 11.5 - 14.5 % C) High RDW-CV 16.0 Performed By: #### CBC #### [facility] [address] [place] [address] GLUCOSE-POCT Collected: 03/17/2018 Status: F Source: [facility] 11:32 PM [facility] REPOSITORY TYPE CODE TESTS RESULT OUT OF RANGE REFERENCE UNITS LAB GLUP(LOINC) 74 - 99 mg/dL High 175 GLUCOSE-POCT Performed By: #### GLUPO #### [facility] [address] [place] [address] GLUCOSE-POCT Collected: 03/17/2018 Status: F Source: [facility] 4:56 PM [facility] TYPE CODE TESTS RESULT OUT OF RANGE REFERENCE UNITS LAB GLUP(LOINC) 74 - 99 mg/dL High 172 GLUCOSE-POCT Performed By: #### GLUPO #### [facility] [address] [place] [address] DAILY PROGRESS Observed: 03/17/2018 Status: COMPLETED Source: [facility] NOTE-PALLIATIVE CARE 1:06 PM [facility] REPOSITORY Consult Type: subsequent visit/care Service: Palliative Care Subjective Data: DIPESH BERMUDEZ is a 67 year old Male who is Hospital Day # 36 and POD #34 for left retrosigmoid craniotomy for tumor resection. Additional Information: Subjective / interval events: - Patient reports feeling better today, no acute complaints - Patient expressed frustration that the doctors have been talking to his nephew and not telling him things - when asked if he knew the outcome of yesterday's (03/16) meeting he said that he did not - big picture overview of immediate/short term plan provided, patient expressed agreement - Patient asking for soda, knows that he isn't supposed to have it - patient's sister at bedside (not the sister who was present for the family meeting 03/16) - only question was how the xray from this AM looked - RT came for breathing treatment, provided update including xray result - patient's sister expressed frustration with patient's lack of progress (one step forward, two steps back) Objective Data: Objective Information: T PRBPSpO2 [id number]/7599% Date/Time03/17 4: 11: 11: 11: 11:00 Range(35.1C - 36C ) (54 - 73 ) (11 - 22 ) (91 - 153 )/ (59 - 91 ) (94% - 100% ) As of 17-Mar-2018 03:00:00, patient is on 2 L/min of oxygen via nasal cannula. Pain with Activity reported at 03/17 8:00: 0 Pain at Rest reported at 03/17 8:00: 0 Physical Exam: Constitutional: chronincally ill appearing man sitting up in bed, visiting with family, comfortable appearing ENMT: dry mucous membranes, supplemental oxygen via nasal canula in place, frequent wet-sounding but non-productive cough Respiratory/Thorax: coarse breath sounds, do not clear with cough Cardiovascular: normal rate, regular rhythm Neurological: awake, alert, and oriented, no myoclonus Psychological: calm, cooperative Skin: warm and dr Medication: Medications: Continuous Medications No continuous medications are active Scheduled Medications 1. Atorvastatin: 40 mg Oral Daily 2. Budesonide 0.5 mg/ 2 mL Nebulizer Soln: 2 mL Inhalation Every 12 Hours 3. Docusate Oral Liquid: 100 mg Oral 2 Times a Day 4. Enoxaparin SubCutaneous: 40 mg SubCutaneous Every 24 Hours 5. Esomeprazole Oral Packet: 40 mg PEG Tube 2 Times a Day 6. Insulin Glargine (Lantus) Injectable: 30 unit(s) SubCutaneous Every 24 Hours 7. Insulin Lispro Mild Corrective Scale: unit(s) SubCutaneous Every 4 Hours 8. Linezolid 600 mg IVPB/ Premixed Soln 300 mL: 300 mL IntraVenous Piggyback Every 12 Hours 9. Nicotine 14 mg/ 24 hour TransDermal: 1 patch TransDermal Every 24 Hours 10. Nystatin Oral Liquid: 837430 unit(s) Oral Every 6 Hours 11. Petrolatum Topical: 1 application(s) Topical 2 Times a Day 12. Piperacillin - Tazobactam 4.5 gram/Iso-osmotic 100 mL Premix IVPB: 100 mL IntraVenous Piggyback Every 6 Hours 13. Polyethylene Glycol: 17 gram(s) Oral Daily 14. Saliva Substitute: 5 mL Oral 4 Times a Day 15. Silodosin (NON - Formulary): 8 mg NasoGastric Tube Daily 16. Simethicone Oral Liquid Drops: 80 mg Oral 4 Times a Day After Meals 17. Sodium Chloride 0.9% Injectable Flush: 10 mL IntraVenous Flush Every 12 Hours 18. Sodium Chloride 0.9% Injectable Flush: 10 mL IntraVenous Flush Every 12 Hours 19. Sodium Chloride 3% Nebulizer Soln: 3 mL Inhalation Every 4 Hours 20. Valproic Acid (Depakene) Oral Liquid: 250 mg PEG Tube Every 12 Hours PRN Medications 1. Acetaminophen: 650 mg Oral Every 6 Hours 2. Albuterol 2.5 mg/ 3 mL Nebulizer Soln: 3 mL Inhalation Every 2 Hours 3. Bisacodyl Rectal: 10 mg Rectal Daily 4. Dextrose 50% in Water Injectable: 25 gram(s) IntraVenous Push Every 15 Minutes 5. Fleet Adult (Sodium Phosphate) Rectal: 1 enema Rectal Daily 6. Glucagon Injectable: 1 mg IntraMuscular Every 15 Minutes 7. Heparin Flush 10 unit/ mL PF Injectable: 5 mL IntraVenous Flush Every 12 Hours 8. Heparin Flush 10 unit/ mL PF Injectable PRN: 5 mL IntraVenous Flush According to Flush Policy 9. Heparin Flush 10 unit/ mL PF Injectable PRN: 5 mL IntraVenous Flush According to Flush Policy 10. Ondansetron Injectable: 4 mg IntraVenous Push Every 6 Hours 11. Polyethylene Glycol: 17 gram(s) Oral Daily 12. Sodium Chloride 0.9% Injectable Flush PRN: 10 mL IntraVenous Flush According to Flush Policy 13. Sodium Chloride 0.9% Injectable Flush PRN: 20 mL IntraVenous Flush According to Flush Policy Recent Lab Results: Results: I have reviewed these laboratory results: Complete Blood Count + Differential [Drawn 17-Mar-2018 04:53:00], Complete Blood Count + Differential [Drawn 16-Mar-2018 03:41:00], Renal Function Panel [Drawn 17-Mar-2018 04:53:00], Renal Function Panel [Drawn 16-Mar-2018 03:41:00]. Radiology Results: Results: I have reviewed these studies: Xray Chest 1 View [Mar 16 2018 11:21AM] I personally visualized/assessed CXR from 03/17: notable for partial left sided collapse, worsened from 03/16 Assessment and Plan: Assessment: Mr. Bermudez is a 67 y/o with a history of COPD and untreated sleep apnea who initially presented for meningioma resection and has had a prolonged hospital stay with post-operative period complicated by stroke, decreased cough and impaired swallow as post-stroke sequelae, and recurrent MICU admissions due to acute on chronic respiratory failure attributed to mucous plugging in the setting of decreased cough. Palliative Care is consulted for goals of care. # Goals of care: family meeting held 03/16 to discus goals and plan of care; at that time plan was made to monitor to see if patient's lung would stay open and potentially transfer to SDU with the ultimate goal of transition to LTAC for ongoing aggressive pulmonary toilet and ongoing rehab with the hope for recovery to patient's premorbid baseline; family acknowledged that this may be out of reach and if so or if the patient worsened they would consider comfort care - monitor progress - ongoing conversations regarding goals/plan of care # Palliative encounter - ongoing visits for building rapport - will engage remainder of palliative care interdisciplinary team as indicated Thank you for allowing us to participate in the care of this patient. Palliative Team will continue to follow as needed. Please contact team with any questions or concerns. Pao Engel MD Palliative Care Contact via [employer] for weekday workdays If delayed answer [place] [phone] Electronic Signatures: Pao Engel) (Signed 17-Mar-2018 14:17) Authored: Service, Subjective Data, Objective Data, Assessment and Plan, Signature/Cosignature/Attestation Last Updated: 17-Mar-2018 14:17 by Pao Engel) GLUCOSE-POCT Collected: 03/17/2018 Status: F Source: [facility] 12:48 PM [facility] TYPE CODE TESTS RESULT OUT OF RANGE REFERENCE UNITS LAB GLUP(LOINC) 74 - 99 mg/dL High 154 GLUCOSE-POCT Performed By: #### GLUPO #### [facility] [address] [place] [address] CLINICAL EVENT Observed: 03/17/2018 Status: UNK Source: [facility]-NEUROSURGERY 12:27 PM [facility] RE[facility]IT[facility] Event: Topic: neurosurgery Details: patient was seen this morning eosp comfortable awake ox3 fc x 4 briskly incision healing appropriately -no need for nsgy intervention -will follow peripherally -do not hesitate to page if you have any questions Provider / Team Contact Information: Provider/Team Contact Info-Pager Number: [phone] Electronic Signatures: Santiago Tompkins (Resident)) (Signed 17-Mar-2018 12:28) Authored: Event, Provider / Team Contact Information Last Updated: 17-Mar-2018 12:28 by Santiago Tompkins (Resident)) GLUCOSE-POCT Collected: 03/17/2018 Status: F Source: [facility] 8:13 AM [facility] REPOSIT[facility] TYPE CODE TESTS RESULT OUT OF RANGE REFERENCE UNITS LAB GLUP(LOINC) 74 - 99 mg/dL High 175 GLUCOSE-POCT Performed By: #### GLUPO #### [facility] [address] [place] [address] TH CHEST 1 VIEW Observed: 03/17/2018 Status: F Source: [facility] 7:20 AM [facility] REPOSITORY Patient Name: DIPESH BERMUDEZ STUDY: CHEST 1 VIEW; 03/17/2018 7:20 am INDICATION: Signs/Symptoms: am film. COMPARISON: Chest radiograph from 03/1606/23/2017 ACCESSION NUMBER(S): [id number] ORDERING CLINICIAN: MO KINGSTON FINDINGS: Cardiomediastinal silhouette is stable with respect to size, but with increased partial obscuration of the left, when compared to prior. Mild aortic knob calcifications. There has been interval worsening of left lung aeration secondary to increasing volume loss and basilar predominant opacification, likely representing increasing atelectasis with left basilar pleural effusion. Unchanged minimal right basilar atelectasis without right pleural effusion. No pneumothorax. No acute osseous abnormality. IMPRESSION: 1. Interval worsening of left lung aeration, likely secondary to increasing atelectasis and associated pleural effusion. Correlate with concern for central mucous plugging. Electronically signed by: LEXI LI MD DAILY PROGRESS NOTE - Observed: 03/17/2018 Status: COMPLETED Source: [facility] CRITICAL CARE-MICU 6:21 AM [facility] REPOSITORY Service: Critical Care Service: ServiceMICU Subjective Data: ID Statement: DIPESH BERMUDEZ is a 67 year old Male who is Hospital Day # 36 and ICU Day #5 and POD #34 for left retrosigmoid craniotomy for tumor resection. Pt slept overnight. Per RN transient drop in HR to the 40s, periods of apnea. No desats noted, O2 weaned to 2 liters. Objective Data: Objective Information T PRBPSpO2 [id number]/6699% Date/Time03/17 4: 5: 5: 5: 5:00 Range(35.1C - 36C ) (54 - 79 ) (11 - 22 ) (91 - 153 )/ (59 - 91 ) (94% - 100% ) ---- Intake and Output ----- The Intake and Output Totals for the last 24 hours are: IntakeOutputNet [id number] Drain and tube details (included in I&O totals) 895 cc Indwelling Catheter - Urethral( 17-Mar-2018 06:00:00 ) 2 l/m NC chemsticks 164-214 3 BM Weights 03/17 4:00: Weight in kg (Weight (kg)) 87.5 03/17 4:00: Weight in lbs ((lbs)) 192.9 Physical Exam: Physical Exam: Neurological: alert smiles perrl eomi slight right arm drift REMY Cardiovascular: RRR Respiratory/Thorax: diminshed throughout no wheeze or rhonchi Genitourinary: flynn Gastrointestinal: + BS soft NT ND peg site clear Constitutional: no distress Eyes: no icterus ENMT: moist some oral thrush Head/Neck: supple Extremities: 1-2+ edema RUE ML site dressed and clear Psychological: calm cooperative Allergies: Allergies: Codeine Sulfate: Unknown penicillin: Unknown insulin: Unknown Intolerances: Aspir 81: GI Upset Medications: Medications: Scheduled Medications 1. Atorvastatin: 40 mg Oral Daily 2. Budesonide 0.5 mg/ 2 mL Nebulizer Soln: 2 mL Inhalation Every 12 Hours 3. Docusate Oral Liquid: 100 mg Oral 2 Times a Day 4. Enoxaparin SubCutaneous: 40 mg SubCutaneous Every 24 Hours 5. Esomeprazole Oral Packet: 40 mg PEG Tube 2 Times a Day 6. Insulin Glargine (Lantus) Injectable: 30 unit(s) SubCutaneous Every 24 Hours 7. Insulin Lispro Mild Corrective Scale: unit(s) SubCutaneous Every 4 Hours 8. Linezolid 600 mg IVPB/ Premixed Soln 300 mL: 300 mL IntraVenous Piggyback Every 12 Hours 9. Nicotine 14 mg/ 24 hour TransDermal: 1 patch TransDermal Every 24 Hours 10. Nystatin Oral Liquid: 564334 unit(s) Oral Every 6 Hours 11. Petrolatum Topical: 1 application(s) Topical 2 Times a Day 12. Piperacillin - Tazobactam 4.5 gram/Iso-osmotic 100 mL Premix IVPB: 100 mL IntraVenous Piggyback Every 6 Hours 13. Polyethylene Glycol: 17 gram(s) Oral Daily 14. Silodosin (NON - Formulary): 8 mg NasoGastric Tube Daily 15. Simethicone Oral Liquid Drops: 80 mg Oral 4 Times a Day After Meals 16. Sodium Chloride 0.9% Injectable Flush: 10 mL IntraVenous Flush Every 12 Hours 17. Sodium Chloride 0.9% Injectable Flush: 10 mL IntraVenous Flush Every 12 Hours 18. Sodium Chloride 3% Nebulizer Soln: 3 mL Inhalation Every 4 Hours 19. Valproic Acid (Depakene) Oral Liquid: 250 mg PEG Tube Every 12 Hours PRN Medications 1. Acetaminophen: 650 mg Oral Every 6 Hours 2. Albuterol 2.5 mg/ 3 mL Nebulizer Soln: 3 mL Inhalation Every 2 Hours 3. Bisacodyl Rectal: 10 mg Rectal Daily 4. Dextrose 50% in Water Injectable: 25 gram(s) IntraVenous Push Every 15 Minutes 5. Fleet Adult (Sodium Phosphate) Rectal: 1 enema Rectal Daily 6. Glucagon Injectable: 1 mg IntraMuscular Every 15 Minutes 7. Heparin Flush 10 unit/ mL PF Injectable: 5 mL IntraVenous Flush Every 12 Hours 8. Heparin Flush 10 unit/ mL PF Injectable PRN: 5 mL IntraVenous Flush According to Flush Policy 9. Heparin Flush 10 unit/ mL PF Injectable PRN: 5 mL IntraVenous Flush According to Flush Policy 10. Ondansetron Injectable: 4 mg IntraVenous Push Every 6 Hours 11. Polyethylene Glycol: 17 gram(s) Oral Daily 12. Sodium Chloride 0.9% Injectable Flush PRN: 10 mL IntraVenous Flush According to Flush Policy 13. Sodium Chloride 0.9% Injectable Flush PRN: 20 mL IntraVenous Flush According to Flush Policy Recent Lab Results: Results: 03/17 am LABS 143 100 44 185 3.7 37 0.72 Ca 9 Po4 2.3 WBC 14 hgb 9 Plt 229 Results: 11 am CXR: Assessment and Plan: Daily Risk Screen: Does patient have a central lineno Does patient have an indwelling urinary catheteryes Plan for indwelling urinary catheter removal todayno The patient continues to require indwelling urinary catheterization for critically ill patients who need accurate urinary output measurements Is the patient intubatedno Neurology: Diagnosis: 67 y/o s/p meningioma resection complicated by brainstem CVA with dysphagia, aspiration pneumonia, initially with MRSA now with PSAG that is pansensitive, and hypercapneic and hypoxemic respiratory failure. Neuro: Mental status slightly better today, more interactive. Working with PT. - continue PT and OT - continue valproic acid - mobilize daily Pulm: O2 needs came down however CXR with increased LLL collapse. On piptazo for PSAG in sputum. Will ccomplete a course of linezolid for MRSA today. - add nocturnal CPAP --> use autotitrator and nasal mask or nasal prongs - continue to wean O2 - continue pulmonary toilet with IPV, 3% nebs, percussion, and NT suctioning - continue piptazo and stop 03/26 (per ID recs for 14 day course) - continue linezolid stop today CV: Hemodynamically stable. Holding home amlodipine, HCTZ, and lisinopril for now. HFpEF. FEN/GI: Electrolytes stable, mild rise in sodium. PO4 still slightly low. On enteral feeds via PEG. - replete PO4 - continue feeds - add small amount of free water - follow stools - daily RFP - continue PPI Endo: Type II DM, on glargine and mild scale. BG still elevated, required 16 units of regular on the corrective scale. - increase glargine to 30 units daily - continue mild scale for now Dispo: DNAR and DNI. Nephew updated via phone today. Pt discussed with Dr Ashley WADSWORTH 45 minutes critical care time Code Status: Code StatusDNAR with Added Limitations Signature/Cosignature/Attestation: Provider/Team Contact Info-Pager [phone] Critical Care PatientI have reviewed and evaluated the most recent data and results, personally examined the patient, and formulated the plan of care as presented above. This patient was critically ill and required continued critical care treatment. Teaching and any separately billable procedures are not included in the time calculation. Billing Provider Critical Care Time45 minute(s) Primary Critical Care Issue/Treatment (See Assessment and Plan for greater detail)-- This patient has significantly altered mental status (delirium, encephalopathy, coma, or anoxic brain damage). We are treating with appropriate medications, hemodynamic support, ventilatory and/or oxygenating support, as indicated, as well as doing intensive diagnostic evaluation and neurological monitoring. Please see assessment and plan above for greater detail.; -- This patient has impending or acute respiratory failure. We are treating with appropriate medications, ventilatory and/or oxygenating support, as indicated, as well as intensive monitoring. Please see assessment and plan above for greater detail. Electronic Signatures: Mo Kingston ([employer] OPERATOR-GROUP MANAGER) (Signed 17-Mar-2018 12:35) Authored: Service, Subjective Data, Objective Data, Assessment and Plan, Signature/Cosignature/Attestation Last Updated: 17-Mar-2018 12:35 by Mo Kingston ([employer] OPERATOR-GROUP MANAGER) CBC AND DIFFERENTIAL Collected: 03/17/2018 Status: F Source: [facility] 4:53 AM [facility] REPOSITORY TYPE CODE TESTS RESULT OUT OF REFERENCE UNITS RANGE LAB WBCR(LOINC 4.4 - 11.3 x10E9/L ) WBC High 14.4 LAB NRBC(LOINC 0.0-0.0 /100 WBC ) NUCLEATED RBC 0.0 LAB RBCCT(LOIN 4.50 - 5.90 x10E12/L C) Low RBC 3.22 LAB HGB(LOINC) 13.5 - 17.5 g/dL Low HGB 9.5 LAB HCT(LOINC) 41.0 - 52.0 % Low HCT 29.6 LAB MCV(LOINC) 80 - 100 fL MCV 92 LAB MCHC2(LOIN 32.0 - 36.0 g/dL C) MCHC 32.1 LAB PLTCT(LOIN 150 - 450 x10E9/L C) PLT 229 LAB RDWCV(LOIN 11.5 - 14.5 % C) RDW-CV High 16.2 LAB NEUT(LOINC 40.0 - 80.0 % ) % NEUTROPHIL 77.1 LAB IG(LOINC) 0.0 - 0.9 % % AUTOMATED 1.5 IMMATURE GRAN Result Comment: Percent differential counts (%) should be interpreted in the context of the absolute cell counts (cells/L). LAB LYMPH(LOINC) 13.0 - % 44.0 % LYMPHOCYTE 13.0 LAB MONO(LOINC) 2.0 - 10.0 % % MONOCYTE 5.8 LAB EOS(LOINC) 0.0 - 6.0 % % EOSINOPHIL 1.9 LAB BASO(LOINC) 0.0 - 2.0 % % BASOPHIL 0.7 LAB #NEUT(LOINC) 1.20 - x10E9/L 7.70 NEUTROPHIL High 11.11 LAB #LYMP(LOINC) 1.20 - x10E9/L 4.80 LYMPHOCYTE 1.87 LAB #MONO(LOINC) 0.10 - x10E9/L 1.00 MONOCYTE 0.83 LAB #EOS(LOINC) 0.00 - x10E9/L 0.70 EOSINOPHIL 0.27 LAB #BASO(LOINC) 0.00 - x10E9/L 0.10 BASOPHIL 0.10 Performed By: #### CBCDF #### [facility] [address] [place] [address] RENAL FUNCTION PANEL Collected: 03/17/2018 Status: F Source: [facility] 4:53 AM [facility] REPOSIT[facility] TYPE CODE TESTS RESULT OUT OF REFERENCE UNITS RANGE LAB GLU(LOINC) 74 - 99 mg/dL GLUCOSE High 185 LAB SOD(LOINC) 136 - 145 mmol/L SODIUM 143 LAB K(LOINC) 3.5 - 5.3 mmol/L POTASSIUM 3.7 LAB CHLOR(LOIN 98 - 107 mmol/L C) CHLORIDE 100 LAB BIC(LOINC) 21 - 32 mmol/L BICARBONATE High 37 LAB ANGAP(LOIN 10 - 20 mmol/L C) ANION GAP 10 LAB UREA(LOINC 6 - 23 mg/dL ) UREA High NITROGEN 44 LAB CREA(LOINC 0.50 - 1.30 mg/dL ) CREATININE 0.72 LAB GFRFN(LOIN >60 mL/min/1.7 C) 3m2 GFR-NON AM. >60 LAB GFRAA(LOIN >60 mL/min/1.7 C) 3m2 GFR- AM. >60 Result Comment: CALCULATIONS OF ESTIMATED GFR ARE PERFORMED USING THE MDRD STUDY EQUATION FOR THE IDMS-TRACEABLE CREATININE METHODS. CLIN CHEM 2007;53:766-72 LAB CA(LOINC) 8.6 - 10.6 mg/dL CALCIUM 9.0 LAB PHOS(LOINC) 2.5 - 4.9 mg/dL PHOSPHORUS Low 2.3 Result Comment: The performance characteristics of phosphorus testing in heparinized plasma have been validated by the individual laboratory site where testing is performed. Testing on heparinized plasma is not approved by the FDA; however, such approval is not necessary. LAB ALB(LOINC) 3.4 - 5.0 g/dL Low ALBUMIN 2.2 Performed By: #### RENAL #### [facility] [address] [place] [address] GLUCOSE-POCT Collected: 03/17/2018 Status: F Source: [facility] 4:46 AM [facility]ALS REPOSITORY TYPE CODE TESTS RESULT OUT OF RANGE REFERENCE UNITS LAB GLUP(LOINC) 74 - 99 mg/dL High 200 GLUCOSE-POCT Performed By: #### GLUPO #### [facility] [address] [place] [address] GLUCOSE-POCT Collected: 03/17/2018 Status: F Source: [facility] 12:32 AM HOSPITALS REPOSITORY TYPE CODE TESTS RESULT OUT OF RANGE REFERENCE UNITS LAB GLUP(LOINC) 74 - 99 mg/dL High 164 GLUCOSE-POCT Performed By: #### GLUPO #### [facility] [address] [place] [address] GLUCOSE-POCT Collected: 03/16/2018 Status: F Source: IDABEL 8:55 PM HOSPITALS REPOSITORY TYPE CODE TESTS RESULT OUT OF RANGE REFERENCE UNITS LAB GLUP(LOINC) 74 - 99 mg/dL High 183 GLUCOSE-POCT Performed By: #### GLUPO #### [facility] [address] [place] [address] GLUCOSE-POCT Collected: 03/16/2018 Status: F Source: IDABEL 3:42 PM HOSPITALS REPOSITORY TYPE CODE TESTS RESULT OUT OF RANGE REFERENCE UNITS LAB GLUP(LOINC) 74 - 99 mg/dL High 214 GLUCOSE-POCT Performed By: #### GLUPO #### [facility] [address] [place] [address] CLINICAL EVENT Observed: 03/16/2018 Status: UNK Source: UNIVERSITY NOTE-FAMILY MEETING 2:52 PM HOSPITALS REPOSITORY Event: Topic: Family meeting Details: Dr Ramirez, Dr Deluna, Dr Engel, Nel Lawrence RN, KARLY Dumont, and myself met with pts nephew Donta and pts sister Nam. Reviewed course and prognosis --> admitted for meningioma resected, complicated by altered mental status and dysphagia, found to have CVA, developed MRSA pneumonia and recurrent respiratory failure 2/2 poor cough and atelectasis. At present time he is improving. We found a new pathogen on most recent cx and added antibiotic to cover that organism. With Q 2 hour pulmonary toilet he has reexpanded his left lung, however, he is requiring frequent treatments. Because of this once he is stable- perhaps tomorrow - we will transfer him to Step Down unit. From there he will need to go directly to [facility] where he can continue to receive the aggressive pulmonary toilet and the PT he needs in order to get the strength he needs to keep lungs inflated. Whether he will ever be able to take PO food is to be determined. He will need speech therapy and he can get that as well at the [facility]. Dr Deluna and Dr Ramirez answered questions. Dr Engel explained the role of palliative care when faced with life limiting disease in helping the family navigate the choices that need to be made. Ariella Hinton will give them list of LTACHs to explore and visit to make a choice. 45 minutes patient's family explaining goals of care. Greater than 50% of this time was spent in counselling and or coordination of care. Provider / Team Contact Information: Provider/Team Contact Info-Pager Number: [phone] Electronic Signatures: Mo Kingston ([employer] OPERATOR-GROUP MANAGER) (Signed 16-Mar-2018 15:09) Authored: Event, Provider / Team Contact Information Last Updated: 16-Mar-2018 15:09 by Mo Kingston ([employer] OPERATOR-GROUP MANAGER) GLUCOSE-POCT Collected: 03/16/2018 Status: F Source: IDABEL 11:45 AM HOSPITALS REPOSITORY TYPE CODE TESTS RESULT OUT OF RANGE REFERENCE UNITS LAB GLUP(LOINC) 74 - 99 mg/dL High 184 GLUCOSE-POCT Performed By: #### GLUPO #### [facility] [address] [place] [address] TH CHEST 1 VIEW Observed: 03/16/2018 Status: F Source: IDABEL 7:45 AM HOSPITALS REPOSITORY Patient Name: DIPESH BERMUDEZ STUDY: TH CHEST 1 VIEW; 03/16/2018 7:45 am INDICATION: Signs/Symptoms: mrsa pneumonia. COMPARISON: Chest x-ray dated 03/15/[address] chest dated 03/12/2018. ACCESSION NUMBER(S): [id number] ORDERING CLINICIAN: DANIELLE CORRAL FINDINGS: CARDIOMEDIASTINAL SILHOUETTE: Cardiomediastinal silhouette is persistently enlarged, unchanged from prior. Trachea now appears midline. LUNGS: There is improved aeration of the left lung with significant improvement in the previously identified left lung opacification, likely reflecting resolving atelectasis. There remains a left basilar retrocardiac opacity, which may be secondary to a small pleural effusion or residual basilar atelectasis. There is mild perihilar congestion without evidence of lowell pulmonary edema. ABDOMEN: No remarkable upper abdominal findings. BONES: No acute osseous changes. A remote fracture of the distal 3rd of the right clavicle is again seen. IMPRESSION: 1. Significant improvement in the aeration of the left lung with residual left basilar pleural effusion and atelectasis. 2. Mild perihilar congestion without evidence of lowell pulmonary edema. I personally reviewed the images/study and I agree with the findings as stated. This study was interpreted at [facility], [place], [place]. Electronically signed by: FADIA WEI MD GLUCOSE-POCT Collected: 03/16/2018 Status: F Source: IDABEL 7:33 AM HOSPITALS REPOSITORY TYPE CODE TESTS RESULT OUT OF RANGE REFERENCE UNITS LAB GLUP(LOINC) 74 - 99 mg/dL High 212 GLUCOSE-POCT Performed By: #### GLUPO #### [facility] [address] [place] [address] DAILY PROGRESS NOTE - Observed: 03/16/2018 Status: COMPLETED Source: IDABEL CRITICAL CARE-MICU 6:40 AM HOSPITALS REPOSITORY Service: Critical Care Service: ServiceMICU Subjective Data: ID Statement: DIPESH BERMUDEZ is a 67 year old Male who is Hospital Day # 35 and ICU Day #4 and POD #33 for left retrosigmoid craniotomy for tumor resection. Pt opens eyes and says hello when addressed. No issues overnight. Objective Data: Objective Information T PRBPSpO2 [id number]% Date/Time03/16 4: 6: 6: 6: 6:00 Range(35.6C - 37.1C ) (68 - 105 ) (12 - 31 ) (91 - 140 )/ (59 - 83 ) (92% - 100% ) 4 L/M NC 2 BM chemsticks 187-224 ---- Intake and Output ----- The Intake and Output Totals for the last 24 hours are: IntakeOutputNet [id number] Drain and tube details (included in I&O totals) 1355 cc Indwelling Catheter - Urethral( 16-Mar-2018 06:00:00 ) Physical Exam: Physical Exam: Neurological: alert O x person and place perrl eomi follows commands, REMY. RUE weak, sensation intact Cardiovascular: RRR distant Respiratory/Thorax: diminshed throughout no wheeze or rhonchi Genitourinary: flynn in place Gastrointestinal: + BS soft NT ND peg site clean Constitutional: no distress Eyes: no icterus ENMT: slightly dry Head/Neck: supple no jvp Allergies: Allergies: Codeine Sulfate: Unknown penicillin: Unknown insulin: Unknown Intolerances: Aspir 81: GI Upset Medications: Medications: Scheduled Medications 1. Atorvastatin: 40 mg Oral Daily 2. Budesonide 0.5 mg/ 2 mL Nebulizer Soln: 2 mL Inhalation Every 12 Hours 3. Docusate Oral Liquid: 100 mg Oral 2 Times a Day 4. Enoxaparin SubCutaneous: 40 mg SubCutaneous Every 24 Hours 5. Esomeprazole Oral Packet: 40 mg PEG Tube 2 Times a Day 6. Insulin Glargine (Lantus) Injectable: 25 unit(s) SubCutaneous Every 24 Hours 7. Insulin Lispro Mild Corrective Scale: unit(s) SubCutaneous Every 4 Hours 8. Linezolid 600 mg IVPB/ Premixed Soln 300 mL: 300 mL IntraVenous Piggyback Every 12 Hours 9. Nicotine 14 mg/ 24 hour TransDermal: 1 patch TransDermal Every 24 Hours 10. Nystatin Oral Liquid: [id number] unit(s) Oral Every 6 Hours 11. Petrolatum Topical: 1 application(s) Topical 2 Times a Day 12. Piperacillin - Tazobactam 4.5 gram/Iso-osmotic 100 mL Premix IVPB: 100 mL IntraVenous Piggyback Every 6 Hours 13. Polyethylene Glycol: 17 gram(s) Oral Daily 14. Potassium Acid Phosphate: 500 mg Oral Every 6 Hours 15. Silodosin (NON - Formulary): 8 mg NasoGastric Tube Daily 16. Sodium Chloride 0.9% Injectable Flush: 10 mL IntraVenous Flush Every 12 Hours 17. Sodium Chloride 0.9% Injectable Flush: 10 mL IntraVenous Flush Every 12 Hours 18. Sodium Chloride 3% Nebulizer Soln: 3 mL Inhalation Every 4 Hours 19. Valproic Acid (Depakene) Oral Liquid: 250 mg PEG Tube Every 12 Hours PRN Medications 1. Acetaminophen: 650 mg Oral Every 6 Hours 2. Albuterol 2.5 mg/ 3 mL Nebulizer Soln: 3 mL Inhalation Every 2 Hours 3. Bisacodyl Rectal: 10 mg Rectal Daily 4. Dextrose 50% in Water Injectable: 25 gram(s) IntraVenous Push Every 15 Minutes 5. Fleet Adult (Sodium Phosphate) Rectal: 1 enema Rectal Daily 6. Glucagon Injectable: 1 mg IntraMuscular Every 15 Minutes 7. Heparin Flush 10 unit/ mL PF Injectable: 5 mL IntraVenous Flush Every 12 Hours 8. Heparin Flush 10 unit/ mL PF Injectable PRN: 5 mL IntraVenous Flush According to Flush Policy 9. Heparin Flush 10 unit/ mL PF Injectable PRN: 5 mL IntraVenous Flush According to Flush Policy 10. Ondansetron Injectable: 4 mg IntraVenous Push Every 6 Hours 11. Polyethylene Glycol: 17 gram(s) Oral Daily 12. Sodium Chloride 0.9% Injectable Flush PRN: 10 mL IntraVenous Flush According to Flush Policy 13. Sodium Chloride 0.9% Injectable Flush PRN: 20 mL IntraVenous Flush According to Flush Policy Recent Lab Results: Results: CBC: 03/16/2018 03:41 \ Hgb / \ 9.9 L / WBC Plt 13.6 H 234 / Hct \ / 31.6 L \ RBC: 3.41 L MCV: 93 Neutrophil %: 75.7 RFP: 03/16/2018 03:41 NA+ Cl- BUN / 142 102 48 H / Glucose 206 H K+ HCO3- Creat \ 3.4 L 33 H 0.86 \ Calcium : 9.1Anion Gap : 10 Albumin : 2.2 L Phos : 2.2 L Cultures: 03/14 urine negative sputum PSAG sens all Results: 03/16 am CXR: CARDIOMEDIASTINAL SILHOUETTE: Cardiomediastinal silhouette is persistently enlarged, unchanged from prior. Trachea now appears midline. LUNGS: There is improved aeration of the left lung with significant improvement in the previously identified left lung opacification, likely reflecting resolving atelectasis. There remains a left basilar retrocardiac opacity, which may be secondary to a small pleural effusion or residual basilar atelectasis. There is mild perihilar congestion without evidence of lowell pulmonary edema. ABDOMEN: No remarkable upper abdominal findings. BONES: No acute osseous changes. A remote fracture of the distal 3rd of the right clavicle is again seen. IMPRESSION: 1. Significant improvement in the aeration of the left lung with residual left basilar pleural effusion and atelectasis. 2. Mild perihilar congestion without evidence of lowell pulmonary edema. Assessment and Plan: Daily Risk Screen: Does patient have a central lineno Does patient have an indwelling urinary catheteryes Plan for indwelling urinary catheter removal todayno The patient continues to require indwelling urinary catheterization for critically ill patients who need accurate urinary output measurements Is the patient intubatedno Neurology: Diagnosis: 67 y/o s/p meningioma resection complicated by brainstem CVA with dysphagia, aspiration pneumonia, initially with MRSA now with PSAG that is pansensitive, and hypercapneic and hypoxemic respiratory failure. Neuro: Mental status stable, working with PT and got to chair today. Sleeping at night. - continue PT and OT - continue valproic acid - mobilize Pulm: CXR with improved LLL and RAIN, O2 needs stable. Sputum cx with PSAG that is sensitive to piptazo. On linezolid for MRSA - continue to wean O2 - continue pulmonary toilet with IPV, 3% nebs, percussion, and NT suctioning - continue piptazo and stop 03/26 - continue linezolid stop 03/17 CV: Hx of HTN, hemodynamically stable. Holding home amlodipine, HCTZ, and lisinopril for now. HFpEF. Demand ischemia, troponin was downtrended. ID: Afebrile, WBC count coming back down. - antibiotics as above FEN/GI: On enteral feeds via PEG. Speech therapy following peripherally if further evaluation needed. Will need Speech therapy in rehab. - replete K and PO4 - continue feeds - follow stools - daily RFP - continue PPI Endo: Type II DM, on glargine and mild scale. BG mostly > than goal of 140-180. Received 20 units of regular on the corrective scale. - increase glargine to 25 units daily - continue mild scale for now Dispo: DNAR and DNI. Family meeting today see clinical event note. Pt discussed with Dr Ashley WADSWORTH 45 minutes critical care time Code Status: Code StatusDNAR with Added Limitations Signature/Cosignature/Attestation: Provider/Team Contact Info-Pager [phone] Critical Care PatientI have reviewed and evaluated the most recent data and results, personally examined the patient, and formulated the plan of care as presented above. This patient was critically ill and required continued critical care treatment. Teaching and any separately billable procedures are not included in the time calculation. Billing Provider Critical Care Time45 minute(s) Primary Critical Care Issue/Treatment (See Assessment and Plan for greater detail)-- This patient has significantly altered mental status (delirium, encephalopathy, coma, or anoxic brain damage). We are treating with appropriate medications, hemodynamic support, ventilatory and/or oxygenating support, as indicated, as well as doing intensive diagnostic evaluation and neurological monitoring. Please see assessment and plan above for greater detail.; -- This patient is believed to have significant heart failure requiring careful monitoring of fluid and respiratory status, including intensive treatment with cardiovascular medications or devices, as indicated. Please see assessment and plan above for greater detail.; -- This patient has impending or acute respiratory failure. We are treating with appropriate medications, ventilatory and/or oxygenating support, as indicated, as well as intensive monitoring. Please see assessment and plan above for greater detail. Electronic Signatures: Mo Kingston ([employer] OPERATOR-GROUP MANAGER) (Signed 16-Mar-2018 14:52) Authored: Service, Subjective Data, Objective Data, Assessment and Plan, Signature/Cosignature/Attestation Last Updated: 16-Mar-2018 14:52 by Mo Kingston ([employer] OPERATOR-GROUP MANAGER) CBC AND DIFFERENTIAL Collected: 03/16/2018 Status: F Source: IDABEL 3:41 AM HOSPITALS REPOSITORY TYPE CODE TESTS RESULT OUT OF REFERENCE UNITS RANGE LAB WBCR(LOINC 4.4 - 11.3 x10E9/L ) WBC High 13.6 LAB NRBC(LOINC 0.0-0.0 /100 WBC ) NUCLEATED RBC 0.0 LAB RBCCT(LOIN 4.50 - 5.90 x10E12/L C) Low RBC 3.41 LAB HGB(LOINC) 13.5 - 17.5 g/dL Low HGB 9.9 LAB HCT(LOINC) 41.0 - 52.0 % Low HCT 31.6 LAB MCV(LOINC) 80 - 100 fL MCV 93 LAB MCHC2(LOIN 32.0 - 36.0 g/dL C) Low MCHC 31.3 LAB PLTCT(LOIN 150 - 450 x10E9/L C) PLT 234 LAB RDWCV(LOIN 11.5 - 14.5 % C) RDW-CV High 16.2 LAB NEUT(LOINC 40.0 - 80.0 % ) % NEUTROPHIL 75.7 LAB IG(LOINC) 0.0 - 0.9 % % AUTOMATED 1.3 IMMATURE GRAN Result Comment: Percent differential counts (%) should be interpreted in the context of the absolute cell counts (cells/L). LAB LYMPH(LOINC) 13.0 - % 44.0 % LYMPHOCYTE 14.0 LAB MONO(LOINC) 2.0 - 10.0 % % MONOCYTE 6.7 LAB EOS(LOINC) 0.0 - 6.0 % % EOSINOPHIL 1.8 LAB BASO(LOINC) 0.0 - 2.0 % % BASOPHIL 0.5 LAB #NEUT(LOINC) 1.20 - x10E9/L 7.70 NEUTROPHIL High 10.27 LAB #LYMP(LOINC) 1.20 - x10E9/L 4.80 LYMPHOCYTE 1.90 LAB #MONO(LOINC) 0.10 - x10E9/L 1.00 MONOCYTE 0.91 LAB #EOS(LOINC) 0.00 - x10E9/L 0.70 EOSINOPHIL 0.24 LAB #BASO(LOINC) 0.00 - x10E9/L 0.10 BASOPHIL 0.07 Performed By: #### CBCDF #### [facility] [address] [place] [address] RENAL FUNCTION PANEL Collected: 03/16/2018 Status: F Source: IDABEL 3:41 AM HOSPITALS REPOSITORY TYPE CODE TESTS RESULT OUT OF REFERENCE UNITS RANGE LAB GLU(LOINC) 74 - 99 mg/dL GLUCOSE High 206 LAB SOD(LOINC) 136 - 145 mmol/L SODIUM 142 LAB K(LOINC) 3.5 - 5.3 mmol/L Low POTASSIUM 3.4 LAB CHLOR(LOIN 98 - 107 mmol/L C) CHLORIDE 102 LAB BIC(LOINC) 21 - 32 mmol/L BICARBONATE High 33 LAB ANGAP(LOIN 10 - 20 mmol/L C) ANION GAP 10 LAB UREA(LOINC 6 - 23 mg/dL ) UREA High NITROGEN 48 LAB CREA(LOINC 0.50 - 1.30 mg/dL ) CREATININE 0.86 LAB GFRFN(LOIN >60 mL/min/1.7 C) 3m2 GFR-NON AM. >60 LAB GFRAA(LOIN >60 mL/min/1.7 C) 3m2 GFR- AM. >60 Result Comment: CALCULATIONS OF ESTIMATED GFR ARE PERFORMED USING THE MDRD STUDY EQUATION FOR THE IDMS-TRACEABLE CREATININE METHODS. CLIN CHEM 2007;53:766-72 LAB CA(LOINC) 8.6 - 10.6 mg/dL CALCIUM 9.1 LAB PHOS(LOINC) 2.5 - 4.9 mg/dL PHOSPHORUS Low 2.2 Result Comment: The performance characteristics of phosphorus testing in heparinized plasma have been validated by the individual laboratory site where testing is performed. Testing on heparinized plasma is not approved by the FDA; however, such approval is not necessary. LAB ALB(LOINC) 3.4 - 5.0 g/dL Low ALBUMIN 2.2 Performed By: #### RENAL #### [facility] [address] [place] [address] GLUCOSE-POCT Collected: 03/16/2018 Status: F Source: IDABEL 3:37 AM HOSPITALS REPOSITORY TYPE CODE TESTS RESULT OUT OF RANGE REFERENCE UNITS LAB GLUP(LOINC) 74 - 99 mg/dL High 223 GLUCOSE-POCT Performed By: #### GLUPO #### [facility] [address] [place] [address] GLUCOSE-POCT Collected: 03/15/2018 Status: F Source: ID[facility]EL 11:29 PM HOSPITALS REPOSITORY TYPE CODE TESTS RESULT OUT OF RANGE REFERENCE UNITS LAB GLUP(LOINC) 74 - 99 mg/dL High 183 GLUCOSE-POCT Performed By: #### GLUPO #### [facility] [address] [place] [address] GLUCOSE-POCT Collected: 03/15/2018 Status: F Source: ID[facility]EL 7:12 PM HOSPITALS REPOSITORY TYPE CODE TESTS RESULT OUT OF RANGE REFERENCE UNITS LAB GLUP(LOINC) 74 - 99 mg/dL High 196 GLUCOSE-POCT Performed By: #### GLUPO #### [facility] [address] [place] [address] DAILY PROGRESS Observed: 03/15/2018 Status: COMPLETED Source: UNIVERSITY NOTE-INFECTIOUS DISEASE 6:37 PM HOSPITALS REPOSITORY Consult Type: subsequent visit/care Service: Infectious Disease Subjective Data: DIPESH BERMUDEZ is a 67 year old Male who is Hospital Day # 34 and POD #32 for left retrosigmoid craniotomy for tumor resection. Additional Information: He is mad because he cannot drink. Indicates that he is breathing fine. No specific complaints. Shakes head NO when questioned regarding symptoms. Objective Data: Objective Information: T PRBPSpO2 [id number]/6997% Date/Time03/15 16: 18: 18: 18: 18:00 Range(35.7C - 37.1C ) (69 - 105 ) (17 - 27 ) (91 - 140 )/ (61 - 83 ) (92% - 100% ) As of 15-Mar-2018 15:00:00, patient is on 6% oxygen via nasal cannula. Highest temp of 37.1 C was recorded at 03/15 16:00 Physical Exam: ENMT: No thrush Respiratory/Thorax: Clear throughout but decreased BS in left chest throughout. Effort may be decreased overall. Cardiovascular: Regular, rate and rhythm. Normal S1 and S2. No murmur, rub, or gallop. Skin: No rashes Medication: Medications: ANTI-INFECTIVES: 1. Nystatin Oral Liquid: [id number] unit(s) Oral Every 6 Hours 2. Linezolid 600 mg IVPB/ Premixed Soln 300 mL: 300 mL IntraVenous Piggyback Every 12 Hours 3. Piperacillin - Tazobactam 4.5 gram/Iso-osmotic 100 mL Premix IVPB: 100 mL IntraVenous Piggyback Every 6 Hours CARDIOVASCULAR AGENTS: 1. Silodosin (NON - Formulary): 8 mg NasoGastric Tube Daily CENTRAL NERVOUS SYSTEM AGENTS: 1. Acetaminophen: 650 mg Oral Every 6 Hours PRN 2. Valproic Acid (Depakene) Oral Liquid: 250 mg PEG Tube Every 12 Hours 3. Ondansetron Injectable: 4 mg IntraVenous Push Every 6 Hours PRN COAGULATION MODIFIERS: 1. Enoxaparin SubCutaneous: 40 mg SubCutaneous Every 24 Hours 2. Heparin Flush 10 unit/ mL PF Injectable: 5 mL IntraVenous Flush Every 12 Hours PRN 3. Heparin Flush 10 unit/ mL PF Injectable PRN: 5 mL IntraVenous Flush According to Flush Policy PRN 4. Heparin Flush 10 unit/ mL PF Injectable PRN: 5 mL IntraVenous Flush According to Flush Policy PRN GASTROINTESTINAL AGENTS: 1. Bisacodyl Rectal: 10 mg Rectal Daily PRN 2. Docusate Oral Liquid: 100 mg Oral 2 Times a Day 3. Fleet Adult (Sodium Phosphate) Rectal: 1 enema Rectal Daily PRN 4. Polyethylene Glycol: 17 gram(s) Oral Daily PRN 5. Polyethylene Glycol: 17 gram(s) Oral Daily 6. Esomeprazole Oral Packet: 40 mg PEG Tube 2 Times a Day METABOLIC AGENTS: 1. Insulin Glargine (Lantus) Injectable: 15 unit(s) SubCutaneous Every 24 Hours 2. Insulin Lispro Mild Corrective Scale: unit(s) SubCutaneous Every 4 Hours 3. Atorvastatin: 40 mg Oral Daily 4. Dextrose 50% in Water Injectable: 25 gram(s) IntraVenous Push Every 15 Minutes PRN 5. Glucagon Injectable: 1 mg IntraMuscular Every 15 Minutes PRN MISCELLANEOUS AGENTS: 1. Nicotine 14 mg/ 24 hour TransDermal: 1 patch TransDermal Every 24 Hours NUTRITIONAL PRODUCTS: 1. Sodium Chloride 0.9% Injectable Flush: 10 mL IntraVenous Flush Every 12 Hours 2. Sodium Chloride 0.9% Injectable Flush: 10 mL IntraVenous Flush Every 12 Hours 3. Sodium Chloride 0.9% Injectable Flush PRN: 10 mL IntraVenous Flush According to Flush Policy PRN 4. Sodium Chloride 0.9% Injectable Flush PRN: 20 mL IntraVenous Flush According to Flush Policy PRN RESPIRATORY AGENTS: 1. Albuterol 2.5 mg/ 3 mL Nebulizer Soln: 3 mL Inhalation Every 2 Hours PRN 2. Sodium Chloride 3% Nebulizer Soln: 3 mL Inhalation Every 4 Hours 3. Budesonide 0.5 mg/ 2 mL Nebulizer Soln: 2 mL Inhalation Every 12 Hours TOPICAL AGENTS: 1. Petrolatum Topical: 1 application(s) Topical 2 Times a Day Recent Lab Results: Results: I have reviewed these laboratory results: Complete Blood Count + Differential Trending View [id number] 04:12:00 14-Mar-2018 01:53:00 White Blood Cell Count17.8 H 27.5 H Nucleated Erythrocyte Count0.0 0.0 Red Blood Cell Count3.52 L 4.06 L HGB10.3 L 12.0 L HCT32.3 L 37.0 L MCV92 91 MCHC31.9 L 32.4 DLQ151 278 RDW-CV16.6 H 16.8 H Neutrophil %79.7 83.0 Immature Granulocytes %1.5 0.9 Lymphocyte %9.7 6.3 Monocyte %8.0 9.4 Eosinophil %0.7 0.0 Basophil %0.4 0.4 Neutrophil Count14.23 H 22.82 H Lymphocyte Count1.73 1.73 Monocyte Count1.43 H 2.60 H Eosinophil Count0.12 0.01 Basophil Count0.07 0.11 H Renal Function Panel Trending View [id number] 04:12:00 14-Mar-2018 01:53:00 Glucose, Sztih209 H 133 H NA141 143 K3.3 L 4.2 CL103 103 Bicarbonate, Serum31 31 Anion Gap, Serum10 13 BUN46 H 46 H CREAT0.99 1.09 GFR-Non >60 >60 GFR->60 >60 Calcium, Serum9.1 9.4 Phosphorus, Serum2.6 4.0 ALB2.2 L 2.3 L Culture, Respiratory Lower, incl. smear 14-Mar-2018 14:09:00 ResultValue Gram Stain GRAM STAIN INDICATES SPECIMEN CONSISTS OF LOWER RESPIRATORY TRACT SECRETIONS. PREDOMINANT ORGANISM= GRAM (-) BACILLI. Organism Pseudomonas aeruginosa 4+ A Assessment and Plan: Assessment: 67 male with hx of HTN, HLD, DM, COPD, CYNTHIA, meningioma s/p resection in 2013 who was admitted on 02/10 for repeat craniotomy of the infratentorial tumor with titanium mesh complicated by post op brainstem infarction who additionally has had a complicated hospitalization. He has had multiple code whites called due to desaturation, and there was concern for aspiration pneumonia/pneumonitis near the beginning of his admission. On 02/17 he was started on Vanco/Cefepime/Azithro/Flagyl. There was concern for continued aspiration, so PEG was placed on 02/21. He completed a 7 day course of Cefepime. On 02/24, respiratory cultures were growing MRSA, so Vanco was restarted with a planned end date of 03/04 to treat MRSA pneumonia. He continued to have a leukocytosis, so ID was consulted on 03/04. There was no new positive culture data, so we switched him from Vanco to Linezolid with planned end date of 03/13. CT of the Chest was done, and he was found to have left lung collapse with concern for necrotizing PNA. He was transferred to the MICU after having a Code White called. Oxygenation improved remarkably with airway suctioning. Sputum culture growing Pseudomonas aeruginosa, sensitivities pending. Microbiology: 02/24 Resp Cx: MRSA 03/14 BCx: pending Antibiotics: Linezolid 600 q12 hours (start 03/13, received it 03/04-03/12) Pip Tazo 4.5 q6 hours (start 03/13) s/p Vanco 02/24-03/04 A/P: 1. Left lung collapse -likely secondary to mucus plugging, unlikely necrotizing PNA as gas was consistent with air in bronchioles 2. Hx of MRSA pneumonia 3. meningioma s/p resections in 2013 with repeat crani on 02/11 FINAL RECOMMENDATIONS: 1. Complete a course of Linezolid 600 mg IV q 12 hrs after doses received on 03/17/18. 2. Continue high dose Piperacillin/Tazobactam 4.5 gm IV every 6 hours for PSDA. Today is day 3 of 14 with anticipated stop date of 03/26/18. If returns resistant to Piperacillin/Tazobactam (then he will have improved despite abx) then new medication will start from day #[address] Ramirez. She will continue to manage his pneumonia clinically. Thank-you for allowing us to assist in your patient's management. We are signing off. Call if any further issues should arise or you should have any questions. Teja Renee MD. pager [phone] Infectious Diseases Attending Physician Team A pager [phone] Please feel free to reconsult ID f conditions change Electronic Signatures: Teja Renee) (Signed 15-Mar-2018 18:58) Authored: Service, Subjective Data, Objective Data, Assessment and Plan, Signature/Cosignature/Attestation Last Updated: 15-Mar-2018 18:58 by Teja Renee) DAILY PROGRESS Observed: 03/15/2018 Status: UNK Source: UN[facility]ERSITY NOTE-INFECTIOUS DISEASE 6:16 PM HOSPITALS REPOSITORY This report has been cancelled. CLINICAL EVENT Observed: 03/15/2018 Status: UNK Source: [facility] NOTE-PALLIATIVE CARE 5:04 PM HOSPITALS REPOSITORY Event: Topic: Palliative Care Details: Consult request received from primary team for goals of care discussion with family meeting planned for 03/16 1100 with patient's surrogate (nephew). Case reviewed with primary team, reviewed available records in EMR. Met with patient briefly. Will plan to attend family meeting. Please inform palliative if plan for meeting is changed. Full consult to follow. Pao Engel MD Palliative Care Contact via [employer] for weekday workdays If delayed answer [place] [phone] Provider / Team Contact Information: Provider/Team Contact Info-Pager Number: [phone] Electronic Signatures: Pao Engel) (Signed 15-Mar-2018 17:07) Authored: Event, Provider / Team Contact Information Last Updated: 15-Mar-2018 17:07 by Pao Engel) GLUCOSE-POCT Collected: 03/15/2018 Status: F Source: [facility] 3:24 PM HOSPITALS REPOSITORY TYPE CODE TESTS RESULT OUT OF RANGE REFERENCE UNITS LAB GLUP(LOINC) 74 - 99 mg/dL High 187 GLUCOSE-POCT Performed By: #### GLUPO #### [facility] [address] [place] [address] CLINICAL EVENT Observed: 03/15/2018 Status: UNK Source: [facility] NOTE-CRITICAL CARE 2:42 PM HOSPITALS REPOSITORY ATTENDING Event: Topic: Critical care attending Details: Overnight - no major changes. he declined treatment till early in morning . CXR showed complete opacification of the left chest indicating complete atelectasis of the RAIN. The LLL has been resected previously. Sputum culture is positive for pseudomonas Electronic Signatures: Shagufta Ramirez) (Signed 15-Mar-2018 14:49) Authored: Event Last Updated: 15-Mar-2018 14:49 by Shagufta Ramirez) DAILY PROGRESS NOTE - Observed: 03/15/2018 Status: COMPLETED Source: [facility] CRITICAL CARE-MICU 12:07 PM HOSPITALS REPOSITORY Service: Critical Care Service: ServiceMICU Subjective Data: ID Statement: DIPESH BERMUDEZ is a 67 year old Male who is Hospital Day # 34 and ICU Day #3 and POD #32 for left retrosigmoid craniotomy for tumor resection. Pt reportedly did not cooperate with 1 IPV tx last night and 2nd was more cooperative. This am, CXR with total L lung atelectasis, RT performed IPV, bed vibration and suctioned large amounts yellow secretions. Pt states no pain, breathing so so. Objective Data: Objective Information T PRBPSpO2 [id number]/7098% Date/Time03/15 12: 12: 12: 12: 12:00 Range(35.7C - 36.6C ) (69 - 113 ) (17 - 28 ) (91 - 128 )/ (61 - 95 ) (90% - 99% ) As of 15-Mar-2018 09:00:00, patient is on 25 L/min of oxygen via vapotherm. Pain with Activity reported at 03/15 9:00: 0 Pain at Rest reported at 03/15 9:00: 0 ---- Intake and Output ----- Mn/Dy/Year TimeIntakeOutputNet Mar 15, 2018 6:00 [id number] Mar 14, 2018 10:00 [id number] Mar 14, 2018 2:00 [id number] The Intake and Output Totals for the last 24 hours are: IntakeOutputNet [id number] Drain and tube details (included in I&O totals) 1190 cc Indwelling Catheter - Urethral( 15-Mar-2018 06:00:00 ) Weights 03/15 6:00: Weight in kg (Weight (kg)) 89 03/15 6:00: Weight in lbs ((lbs)) 196.2 Physical Exam: Physical Exam: Neurological: AAOC x 3, knows year, not month. REMY , generally weak with R side weaker. Cardiovascular: S1, S2, RRR. No edema. Has midline UE. Respiratory/Thorax: Lungs very diminished R side, L did not hear breaths sounds. On 50% FIO2 high flow 25L/min. Genitourinary: flynn draining yellow urine. Gastrointestinal: BS+, soft nontender. Has peg infusing tubefeeds. Eyes: perrla anicteric. ENMT: tongue dry. no lesions. Allergies: Allergies: Codeine Sulfate: Unknown penicillin: Unknown insulin: Unknown Intolerances: Aspir 81: GI Upset Medications: Medications: Continuous Medications No continuous medications are active Scheduled Medications 1. Atorvastatin: 40 mg Oral Daily 2. Budesonide 0.5 mg/ 2 mL Nebulizer Soln: 2 mL Inhalation Every 12 Hours 3. Docusate Oral Liquid: 100 mg Oral 2 Times a Day 4. Enoxaparin SubCutaneous: 40 mg SubCutaneous Every 24 Hours 5. Esomeprazole Oral Packet: 40 mg PEG Tube 2 Times a Day 6. Insulin Glargine (Lantus) Injectable: 15 unit(s) SubCutaneous Every 24 Hours 7. Insulin Lispro Mild Corrective Scale: unit(s) SubCutaneous Every 4 Hours 8. Linezolid 600 mg IVPB/ Premixed Soln 300 mL: 300 mL IntraVenous Piggyback Every 12 Hours 9. Nicotine 14 mg/ 24 hour TransDermal: 1 patch TransDermal Every 24 Hours 10. Nystatin Oral Liquid: 307595 unit(s) Oral Every 6 Hours 11. Petrolatum Topical: 1 application(s) Topical 2 Times a Day 12. Piperacillin - Tazobactam 4.5 gram/Iso-osmotic 100 mL Premix IVPB: 100 mL IntraVenous Piggyback Every 6 Hours 13. Polyethylene Glycol: 17 gram(s) Oral Daily 14. Silodosin (NON - Formulary): 8 mg NasoGastric Tube Daily 15. Sodium Chloride 0.9% Injectable Flush: 10 mL IntraVenous Flush Every 12 Hours 16. Sodium Chloride 0.9% Injectable Flush: 10 mL IntraVenous Flush Every 12 Hours 17. Sodium Chloride 3% Nebulizer Soln: 3 mL Inhalation Every 4 Hours 18. Valproic Acid (Depakene) Oral Liquid: 250 mg PEG Tube Every 12 Hours PRN Medications 1. Acetaminophen: 650 mg Oral Every 6 Hours 2. Albuterol 2.5 mg/ 3 mL Nebulizer Soln: 3 mL Inhalation Every 2 Hours 3. Bisacodyl Rectal: 10 mg Rectal Daily 4. Dextrose 50% in Water Injectable: 25 gram(s) IntraVenous Push Every 15 Minutes 5. Fleet Adult (Sodium Phosphate) Rectal: 1 enema Rectal Daily 6. Glucagon Injectable: 1 mg IntraMuscular Every 15 Minutes 7. Heparin Flush 10 unit/ mL PF Injectable: 5 mL IntraVenous Flush Every 12 Hours 8. Heparin Flush 10 unit/ mL PF Injectable PRN: 5 mL IntraVenous Flush According to Flush Policy 9. Heparin Flush 10 unit/ mL PF Injectable PRN: 5 mL IntraVenous Flush According to Flush Policy 10. Ondansetron Injectable: 4 mg IntraVenous Push Every 6 Hours 11. Polyethylene Glycol: 17 gram(s) Oral Daily 12. Sodium Chloride 0.9% Injectable Flush PRN: 10 mL IntraVenous Flush According to Flush Policy 13. Sodium Chloride 0.9% Injectable Flush PRN: 20 mL IntraVenous Flush According to Flush Policy Recent Lab Results: Results: CBC: 03/15/2018 04:12 \ Hgb / \ 10.3 L / WBC Plt 17.8 H 238 / Hct \ / 32.3 L \ RBC: 3.52 L MCV: 92 Neutrophil %: 79.7 RFP: 03/15/2018 04:12 NA+ Cl- BUN / 141 103 46 H / Glucose 185 H K+ HCO3- Creat \ 3.3 L 31 0.99 \ Calcium : 9.1Anion Gap : 10 Albumin : 2.2 L Phos : 2.6 I have reviewed these laboratory results: Culture, Respiratory Lower, incl. smear 14-Mar-2018 14:09:00 ResultValue Gram Stain GRAM STAIN INDICATES SPECIMEN CONSISTS OF LOWER RESPIRATORY TRACT SECRETIONS. PREDOMINANT ORGANISM= GRAM (-) BACILLI. Organism Pseudomonas aeruginosa 4+ A Culture, Urine 14-Mar-2018 01:57:00 ResultValue Culture, Urine NO GROWTH Culture, Blood Trending View [id number] 01:55:00 14-Mar-2018 01:53:00 Culture, BloodNEGATIVE TO DATE, CULTURE IN PROGRESS. No Growth at 1 days NEGATIVE TO DATE, CULTURE IN PROGRESS. No Growth at 1 days Results: I have reviewed this radiology result: Impression: [Complete whiteout of the left lung with secondary signs of volume loss, leftward mediastinal and tracheal deviation. This is most compatible with left lung collapse secondary to mucus plug. This case was discussed with Angelica Corral by Dr. Reynaldo Munoz on 03/15/2018 at 8:50 a.m.. [ Xray Chest 1 View [Mar 15 2018 8:51AM] Impression: Postoperative changes are again identified compatible with a previous left-sided craniotomy as well as a left retrosigmoid occipital craniectomy with surgical mesh overlying the craniectomy site. There is an extracranial fluid collection similar to CSF in attenuation superficial to and surrounding the surgical mesh overlying left occipital craniectomy site most suggestive of a pseudomeningocele which has demonstrated interval enlargement when compared with the prior MRI dated 02/12/2018. Immediately deep to the surgical mesh overlying the left occipital craniectomy, there is a extra-axial fluid collection similar to CSF again measuring approximately 16 mm in thickness similar when compared with the prior study. There is smooth dural enhancement deep to the left craniotomy site as well as surrounding the left occipital craniectomy site likely postsurgical/reactive in etiology. The current diffusion-weighted images againdemonstrate increased diffusion signal within the left aspect of the pontomesencephalic junction with less pronounced corresponding diminished signal on the ADC map. There is corresponding abnormal increased signal on the FLAIR and T2 weighted images. The diffusion-weighted images demonstrate new irregular enhancement within the brain stem in this region. The constellation of findings suggests an area of predominantly evolving subacute infarction within the brainstem with the possibility of a minimal amount superimposed more acute infarction not entirely excluded. There is a punctate focus of cortical enhancement noted along the posterior left parietal lobe as seen on axial post gadolinium T1 slice 10 of 28 which corresponds aurora area of abnormal diffusion restriction on the prior MRI dated 02/12/2018 raising the possibility of a small focus of enhancement related to an evolving area of subacute infarction. Areas of encephalomalacia and gliosis are again identified along the inferior medial cerebellar hemispheres bilaterally as well as within the left temporal lobe. There is again evidence of asymmetric extra-axial dural thickening enhancement along the left parasellar region/cavernous sinus and filling Meckel's cave on the left extending posteriorly along the left petrous apex, left aspect of the tentorium, and left posterior margin of the clivus which is similar in appearance when compared with 02/12/2018 suggestive of residual extra-axial dural based neoplasm/meningioma as well as postoperative granulation tissue/scar. There is new opacification of scattered left mastoid air cells. The study was interpreted at [facility]. MRI Brain w/wo Contrast [Mar 07 2018 9:39AM] Conclusion: CONCLUSIONS: 1. The left ventricular systolic function is normal with a 55-60% estimated ejection fraction. 2. Spectral Doppler shows an impaired relaxation pattern of left ventricular diastolic filling. 3. There is moderate concentric left ventricular hypertrophy. QUANTITATIVE DATA SUMMARY: 2D MEASUREMENTS: Normal Ranges: IVSd: 1.70 cm (0.6-1.1cm) LVPWd: 1.30 cm (0.6-1.1cm) LVIDd: 5.61 cm (3.9-5.9cm) LVIDs: 3.50 cm LV % FS 37.6 % LA VOLUME: Normal Ranges: LA Volume Index: 22.0ml/m2 M-MODE MEASUREMENTS: Normal Ranges: Ao Root: 3.70 cm (2.0-3.7cm) LAs: 2.50 cm (2.7-4.0cm) AORTA MEASUREMENTS: Normal Ranges: Ao Sinus, d: 3.70 cm (2.1-3.5cm) Asc Ao, d: 3.54 cm (2.1-3.4cm) LVSYSTOLIC FUNCTION BY 2D PLANIMETRY (MOD): Normal Ranges: EF-A4C View: 61.5 % (>55%) EF-A2C View: 57.6 % EF-Biplane: 58.7 % LV DIASTOLIC FUNCTION: Normal Ranges: MV Peak E: 0.58 m/s (0.7-1.2 m/s) AORTICVALVE: Normal Ranges: AoV Vmax: 1.64 m/s (<1.7m/s) AoV Peak P.8 mmHg (<20mmHg) LVOT Max Siddhartha: 1.50 m/s (<1.1m/s) LVOT VTI: 23.90 cm LVOT Diameter: 2.10 cm (1.8-2.4cm) AoV Area,Vmax: 3.17 cm2 (2.5-4.5cm2) PULMONIC VALVE: Normal Ranges: PV Max Siddhartha: 1.2 m/s (0.6-0.9m/s) PV Max P.9 mmHg Echocardiogram [Feb 16 2018 12:46PM] Assessment and Plan: Daily Risk Screen: Does patient have a central lineno Does patient have an indwelling urinary catheteryes Plan for indwelling urinary catheter removal todayno The patient continues to require indwelling urinary catheterization for critically ill patients who need accurate urinary output measurements Is the patient intubatedno Neurology: Diagnosis: This is a 67y/o WM with PMH significant for HTN, DMII, COPD, s/p meningioma resection 2013, s/p 2nd meningioma resection 02/11/18 complicated by brainstem infarct, dysphagia and R sided weakness, aspiration MRSA PNA, difficulty with lung atelectasis due to weakness and infection and now PSA Pneumonia. Neuro: s/p Meningioma resection 02/11/18 with course complicated by brainstem infarct resulting in dysphagia and R sided weakness. -cont valproic acid -PT/OT-attempt to stand today, very weak, unable to sit in chair CV: Tropinemia likely due to demand ischemia. EF 55-60% with impaired diastolic fillings. HF diastolic dysfunction. -I/O keep even -holding home amlodipine, lisinopril and HCTZ Pulm/ID: COPD, Acute hypoxemic respiratory failure due to MRSA pneumonia, now PSA pneumonia and weak cough. On 30L flow 50% oxygen. CXR this am with total L lung atelectasis, required IPV, bed vibration and frequent suctioning. -IPV/vest therapy every 4h with NT suctioning and in between every 4hrs bed vibration -add 3% NS -wean down oxygen -f/u sensitivities of sputum cx -f/u blood cx -cont IV linezolid and started zosyn, ID following GI: Esophagitis. dysphagia, failed swallow eval by speech. s/p PEg 02/21. -cont TF continuous rate -PPI bid x 3 months -monitor bms Endocrine: DM, BS 128-187. Lantus had been decreased when made npo. Now back on tubefeeds continuously. -on lantus, titrate up as needed -on SSI Heme: Superficial venous thrombus L basilica vein associated with midline. This midline was removed. - new poieodi01/29 Disp: DNAR/DNI. Anel Macias [phone] updated. He wants to be updated daily with status and any change in condition. Discussed with him that pt had total atelectasis due to combination of weakness and infection, and he may never be strong enough to cough up own secretions. I later called him and updated him on the plan for increase pulmonary toilet and that we would like to meet with him tomorrow with palliative care, social work, Dr. Ramirez and [employer] [place] Saw Operator to discuss goals of care and where he can go from the ICU. -Meeting tomorrow 11am (palliative care Pao Engel MD, social work, Dr. Ramirez and HANDLE SANDER OPERATOR to meet) Discussed with Dr. Ramierz. Code Status: Code StatusDNAR with Added Limitations Signature/Cosignature/Attestation: Critical Care PatientI have reviewed and evaluated the most recent data and results, personally examined the patient, and formulated the plan of care as presented above. This patient was critically ill and required continued critical care treatment. Teaching and any separately billable procedures are not included in the time calculation. Billing Provider Critical Care Time60 minute(s) Primary Critical Care Issue/Treatment (See Assessment and Plan for greater detail)-- This patient has significantly altered mental status (delirium, encephalopathy, coma, or anoxic brain damage). We are treating with appropriate medications, hemodynamic support, ventilatory and/or oxygenating support, as indicated, as well as doing intensive diagnostic evaluation and neurological monitoring. Please see assessment and plan above for greater detail.; -- This patient is believed to have significant heart failure requiring careful monitoring of fluid and respiratory status, including intensive treatment with cardiovascular medications or devices, as indicated. Please see assessment and plan above for greater detail.; -- This patient has impending or acute respiratory failure. We are treating with appropriate medications, ventilatory and/or oxygenating support, as indicated, as well as intensive monitoring. Please see assessment and plan above for greater detail. Electronic Signatures: Danielle Corral ([employer] OPERATOR-GROUP MANAGER) (Signed 15-Mar-2018 13:26) Authored: Service, Subjective Data, Objective Data, Assessment and Plan, Signature/Cosignature/Attestation Last Updated: 15-Mar-2018 13:26 by Danielle Corral ([employer] OPERATOR-GROUP MANAGER) NUTRITION THERAPY-ASSESSMENT Observed: 03/15/2018 Status: UNK Source: [facility] 11:44 AM HOSPITALS REPOSITORY Assessment Subjective/Objective: Note Type: Assessment Note Authored by: Registered Dietitian Career Placement Specialist Pager Number: [phone] Nutrition Note: Pt transferred back to MICU overnight 03/13-03/14 for code white d/t change in mental status and desaturations. He is currently on 40% high flow nasal canula for support. Noted to have near complete collapse of L lung. Initially admitted for crani and resection of meningioma with subsequent brain stem infarct. Aware goals of care discussions being had with family re: pt's prognosis. Currently DNR/DNI. Pt is receiving TF via PEG. GI had been consulted two weeks ago for possible J-tube as he has chronic issues with dysphagia/aspiration d/t brain stem infarct and concerned for feeding into his stomach. GI indicates pt too high risk for J-tube d/t poor resp status and need for sedation during placement. He is on Diabetisource AC@ 70mls/hr with goal rate noted to be 80mls/hr. TF had been turned off d/t concern for resp status. Unclear when it got turned off or if he was at goal rate on the floor as it is not documented on RN flowsheets. Objective Information: weight today: 89kgs-- down by 10kgs from admit weight of 99.7kgs (fluids vs actual weight loss) stool: +BM on 03/13 Recent Lab Results: Results: Na+ 141 K+ 3.3 chloride 103 bicarb 31 BUN 46 creatinine 0.99 calcium 9.1 phos 2.6 mag 2.27 sugars 216, 187, 149 Current Active Medications/PN: Silodosin (NON - Formulary), Capsule DOSE = 8 mg NasoGastric Tube Daily, 16-Feb-2018 Docusate Oral Liquid, (COLACE) DOSE = 100 mg Oral 2 Times a Day, 19-Feb-2018 Valproic Acid (Depakene) Oral Liquid, DOSE = 250 mg PEG Tube Every 12 Hours, 23-Feb-2018 Polyethylene Glycol, Powder for Reconstitution (MIRALAX) DOSE = 17 gram(s) Oral Daily, 27-Feb-2018 Nystatin Oral Liquid, DOSE = 500,000 unit(s) Oral Every 6 Hours Clinician Notes: swish and spit, 27-Feb-2018 Piperacillin - Tazobactam 4.5 gram/Iso-osmotic 100 mL Premix IVPB, (ZOSYN) Every 6 Hours Recommended Infusion Time: 30 minute(s), 13-Mar-2018 Linezolid 600 mg IVPB/ Premixed Soln 300 mL, Every 12 Hours Recommended Infusion Time: 2 hour(s), 13-Mar-2018 Insulin Glargine (Lantus) Injectable, DOSE = 15 unit(s) SubCutaneous Every 24 Hours Notes from Pharmacy: HIGH ALERT , 14-Mar-2018 Nutrition Orders: Enteral Feeding (CMC), Diabetic Source AC Rate: ( Continuous & Cycle Only)- mL/hr: 80 ,<Continuous> Route: PEG (Percutaneous Endoscopic Gastric Tube), Continuous Special Instructions: Increase by 20ml every 6hrs until at goal rate., 27-Feb-2018 Enteral Feeding Water Flush, 60 ml, GT (Gastric Tube), Daily, Before Feeds, After Feeds, Between Feeds Special Instructions: before and after medication administration, 01-Mar-2018 Nutrition Focused Physical Findings: Muscle Wasting: Temporal: yes Shoulder: yes Clavicle: yes Biceps/Triceps: yes Quadriceps: no Calf: no Loss of Subcutaneous Fat: Eyes: no Perioral: no Triceps: no Chest: no Other Physical Findings: Hair: negative Eyes: negative Nails: negative Skin: L head crani site, stage I sacrum, bruises Edema: +1, generalized Change in Metabolic Demand: yes Estimated Needs: kcals/day: 9856-8427 gms protein/day: 100+ mL fluid/day: 1 ml/kcal or per MD Nutrition Diagnosis: Diagnosis1 ongoing. Dx: Swallowing difficulties. related to recent craniotomy for tumor resection as evidenced by speech recs for pt to remain NPO with need for PEG placement. Additional Assessment Information: Pt remains at high risk for aspiration with current medical issues affecting his ability to protect his airway. Few options nutrition-ortiz to decrease aspiration risk at this time. Pt showing signs of muscle loss on exam. May be from deconditioning from prolonged hospital stay vs frequency of TF being turned off during admission. Nutrition Interventions: Diet Education: not applicable Provided Nutrition Support Recommendations: TF at goal= 2304kcals, 115grams protein Nutrition Goals: Goals: Nutrition Therapy: tube feed tolerance, Blood Glucose 80-180 mg/dl NUTRITION RECOMMENDATIONS: Recommendations: 1) Continue with increasing TF to goal rate of 80mls/hr. Following-- [id number] Dietitian Monitoring and Evaluation Plan: Monitoring and Evaluation Plan: Nutrition Support tolerance/adequacy Electronic Signatures: Margarita Harrington (JORDYN, NOAH) (Signed 15-Mar-2018 12:10) Authored: Assessment Subjective/Objective, Nutrition Focused Physical Findings, Estimated Needs, Nutrition Diagnosis, Nutrition Interventions, Nutrition Goals, Nutrition Recommendations, Dietitian Monitoring and Evaluation Plan Last Updated: 15-Mar-2018 12:10 by Margarita Harrington (JORDYN, NOAH) GLUCOSE-POCT Collected: 03/15/2018 Status: F Source: [facility] 11:43 AM HOSPITALS REPOSITORY TYPE CODE TESTS RESULT OUT OF RANGE REFERENCE UNITS LAB GLUP(LOINC) 74 - 99 mg/dL High 224 GLUCOSE-POCT Performed By: #### GLUPO #### [facility] [address] [place] [address] TH CHEST 1 VIEW Observed: 03/15/2018 Status: F Source: [place] 7:42 AM [facility] REPOSITORY Patient Name: DIPESH BERMUDEZ STUDY: TH CHEST 1 VIEW; 03/15/2018 7:42 am INDICATION: Signs/Symptoms: pneumonia mrsa. COMPARISON: Radiograph dated 03/14/2018 ACCESSION NUMBER(S): [id number] ORDERING CLINICIAN: DANIELLE CORRAL FINDINGS: CARDIOMEDIASTINAL SILHOUETTE: Cardiomediastinal silhouette is shifted to the left. There is leftward tracheal deviation. LUNGS: There is complete whiteout of the left lung with secondary signs of volume loss. Likely representing left lung collapse secondary to mucus plug. The right lung appears clear. BONES: There is a remote fracture of the distal 3rd of the right clavicle. IMPRESSION: 1. Near complete opacification of the left lung with secondary signs of volume loss, leftward mediastinal and tracheal deviation. Findings are likely due to combination of volume loss, collapse and pleural effusion/consolidation. Correlation for mucous plugging. This case was discussed with Angelica Corral by Dr. Reynaldo Munoz on 03/15/2018 at 8:50 a.m.. I personally reviewed the images/study and I agree with the findings as stated. This study was interpreted at [facility] [place], [place]. Electronically signed by: FADIA WEI MD GLUCOSE-POCT Collected: 03/15/2018 Status: F Source: [facility] 7:32 AM HOSPITALS REPOSITORY TYPE CODE TESTS RESULT OUT OF RANGE REFERENCE UNITS LAB GLUP(LOINC) 74 - 99 mg/dL High 216 GLUCOSE-POCT Performed By: #### GLUPO #### [facility] [address] [place] [address] CBC AND DIFFERENTIAL Collected: 03/15/2018 Status: F Source: [facility] 4:12 AM HOSPITALS REPOSITORY TYPE CODE TESTS RESULT OUT OF REFERENCE UNITS RANGE LAB WBCR(LOINC 4.4 - 11.3 x10E9/L ) WBC High 17.8 LAB NRBC(LOINC 0.0-0.0 /100 WBC ) NUCLEATED RBC 0.0 LAB RBCCT(LOIN 4.50 - 5.90 x10E12/L C) Low RBC 3.52 LAB HGB(LOINC) 13.5 - 17.5 g/dL Low HGB 10.3 LAB HCT(LOINC) 41.0 - 52.0 % Low HCT 32.3 LAB MCV(LOINC) 80 - 100 fL MCV 92 LAB MCHC2(LOIN 32.0 - 36.0 g/dL C) Low MCHC 31.9 LAB PLTCT(LOIN 150 - 450 x10E9/L C) PLT 238 LAB RDWCV(LOIN 11.5 - 14.5 % C) RDW-CV High 16.6 LAB NEUT(LOINC 40.0 - 80.0 % ) % NEUTROPHIL 79.7 LAB IG(LOINC) 0.0 - 0.9 % % AUTOMATED 1.5 IMMATURE GRAN Result Comment: Percent differential counts (%) should be interpreted in the context of the absolute cell counts (cells/L). LAB LYMPH(LOINC) 13.0 - 44.0 % % LYMPHOCYTE 9.7 LAB MONO(LOINC) 2.0 - 10.0 % % MONOCYTE 8.0 LAB EOS(LOINC) 0.0 - 6.0 % % EOSINOPHIL 0.7 LAB BASO(LOINC) 0.0 - 2.0 % % BASOPHIL 0.4 LAB #NEUT(LOINC) 1.20 - 7.70 x10E9/L NEUTROPHIL High 14.23 LAB #LYMP(LOINC) 1.20 - 4.80 x10E9/L LYMPHOCYTE 1.73 LAB #MONO(LOINC) 0.10 - 1.00 x10E9/L MONOCYTE High 1.43 LAB #EOS(LOINC) 0.00 - 0.70 x10E9/L EOSINOPHIL 0.12 LAB #BASO(LOINC) 0.00 - 0.10 x10E9/L BASOPHIL 0.07 Performed By: #### CBCDF #### [facility] [address] [place] [address] RENAL FUNCTION PANEL Collected: 03/15/2018 Status: F Source: [facility] 4:12 AM HOSPITALS REPOSITORY TYPE CODE TESTS RESULT OUT OF REFERENCE UNITS RANGE LAB GLU(LOINC) 74 - 99 mg/dL GLUCOSE High 185 LAB SOD(LOINC) 136 - 145 mmol/L SODIUM 141 LAB K(LOINC) 3.5 - 5.3 mmol/L Low POTASSIUM 3.3 LAB CHLOR(LOIN 98 - 107 mmol/L C) CHLORIDE 103 LAB BIC(LOINC) 21 - 32 mmol/L BICARBONATE 31 LAB ANGAP(LOIN 10 - 20 mmol/L C) ANION GAP 10 LAB UREA(LOINC 6 - 23 mg/dL ) UREA High NITROGEN 46 LAB CREA(LOINC 0.50 - 1.30 mg/dL ) CREATININE 0.99 LAB GFRFN(LOIN >60 mL/min/1.7 C) 3m2 GFR-NON AM. >60 LAB GFRAA(LOIN >60 mL/min/1.7 C) 3m2 GFR- AM. >60 Result Comment: CALCULATIONS OF ESTIMATED GFR ARE PERFORMED USING THE MDRD STUDY EQUATION FOR THE IDMS-TRACEABLE CREATININE METHODS. CLIN CHEM 2007;53:766-72 LAB CA(LOINC) 8.6 - 10.6 mg/dL CALCIUM 9.1 LAB PHOS(LOINC) 2.5 - 4.9 mg/dL PHOSPHORUS 2.6 Result Comment: The performance characteristics of phosphorus testing in heparinized plasma have been validated by the individual laboratory site where testing is performed. Testing on heparinized plasma is not approved by the FDA; however, such approval is not necessary. LAB ALB(LOINC) 3.4 - 5.0 g/dL Low ALBUMIN 2.2 Performed By: #### RENAL #### [facility] [address] [place] [address] GLUCOSE-POCT Collected: 03/15/2018 Status: F Source: [facility] 3:27 AM HOSPITALS REPOSITORY TYPE CODE TESTS RESULT OUT OF RANGE REFERENCE UNITS LAB GLUP(LOINC) 74 - 99 mg/dL High 187 GLUCOSE-POCT Performed By: #### GLUPO #### [facility] [address] [place] [address] GLUCOSE-POCT Collected: 03/15/2018 Status: F Source: [facility] 12:05 AM [facility]PITALS REPOSITORY TYPE CODE TESTS RESULT OUT OF RANGE REFERENCE UNITS LAB GLUP(LOINC) 74 - 99 mg/dL High 149 GLUCOSE-POCT Performed By: #### GLUPO #### [facility] [address] [place] [address] GLUCOSE-POCT Collected: 03/14/2018 Status: F Source: [facility] 7:18 PM [facility]OSPITALS REPOSITORY TYPE CODE TESTS RESULT OUT OF RANGE REFERENCE UNITS LAB GLUP(LOINC) 74 - 99 mg/dL High 182 GLUCOSE-POCT Performed By: #### GLUPO #### [facility] [address] [place] [address] TH CHEST 1 VIEW Observed: 03/14/2018 Status: F Source: [facility] 5:33 PM HOSPITALS REPOSITORY Patient Name: DIPESH BERMUDEZ STUDY: TH CHEST 1 VIEW; 03/14/2018 5:33 pm INDICATION: Signs/Symptoms: pneumonia. COMPARISON: 03/13/2018 ACCESSION NUMBER(S): [id number] ORDERING CLINICIAN: DANIELLE CORRAL FINDINGS: CARDIOMEDIASTINAL SILHOUETTE: Cardiomediastinal silhouette is stable in size and configuration. LUNGS: Since the prior radiograph, there is interval improvement in left upper lung aeration from prior examination. Patient is status post left lower lobectomy. Coarsened interstitial lung markings are identified, consistent with chronic interstitial disease. ABDOMEN: No remarkable upper abdominal findings. BONES: No acute osseous changes. IMPRESSION: 1. Interval improvement in left upper lung aeration from prior exam. Trace left-sided pleural effusion. 2. Coarsened interstitial markings consistent with emphysematous changes. I personally reviewed the image(s) / study and resident, Dr. Aranda's interpretation. I agree with the findings as stated. This study has been interpreted at [facility] in [place], [place]. Electronically signed by: GAYATHRI STEVENSON MD GLUCOSE-POCT Collected: 03/14/2018 Status: F Source: [facility] 5:15 PM HOSPITALS REPOSITORY TYPE CODE TESTS RESULT OUT OF RANGE REFERENCE UNITS LAB GLUP(LOINC) 74 - 99 mg/dL High 221 GLUCOSE-POCT Performed By: #### GLUPO #### [facility] [address] [place] [address] Observed: 03/14/2018 Status: F Source: [facility] RESPIRATORY 2:09 PM HOSPITALS REPOSITORY CULT./SM,LOWER PATIENT: DIPESH BERMUDEZ LOCATION: [facility] BILL#: [id number] : 54 AGE: SEX: M ORDERED BY: TAMELA BYNUM SOURCE: SPUTUM COLLECTED: 03/14/18 14:09 ANTIBIOTICS AT [facility].: RECEIVED : 03/14/18 17:25 SITE: Brandee Chavarria U L T S GRAM STAIN FINAL 03/14/18 22:04 GRAM STAIN INDICATES SPECIMEN CONSISTS OF LOWER RESPIRATORY TRACT SECRETIONS. PREDOMINANT ORGANISM= GRAM (-) BACILLI. RESPIRATORY CULT./SM,LOWER FINAL 03/16/18 09:12 ISOLATE1 : Pseudomonas aeruginosa 4+ Organism Ps aerug Antibiotic BP INTRP Aztreonam S Ceftazidime S Ciprofloxacin S Cefepime S Gentamicin S Levofloxacin S Piperc/Tazobact S Tobramycin S S=SUSCEPTIBLE I=INTERMEDIATE R=RESISTANT SDD=SUSCEPTIBLE DOSE DEPENDENT NS=NONSUSCEPTIBLE X=REPORTED IN ERROR Performed By: #### RESPL #### [facility] [address] [place] [address] CLINICAL EVENT Observed: 03/14/2018 Status: UNK Source: UNIVERSITY NOTE-GOALS OF CARE 11:46 AM HOSPITALS REPOSITORY Event: Topic: Goals of care/daily progress note. Details: Neuro: Awake, oriented x 1, verbalizes I want pop. REMY, R side weaker than L S1, S2, RRR On 100% 40L High flow oxygen. Lungs diminished L lung, R coarse vesicular, nonlabored. BS+, soft nontender, Has peg tube site nonred. Extr: Pulses radials and pedals +1, no edema. Venous stasis changes Labs: WBC 27.1, H/h 11.9/37 plts 336, BUN/Cr 44/1.12, LFTs nl, Troponin 0.12. ABG 03/13 1623 7.47/47/74/97 03/12 CT PE no PE, bronchial wall thckening and mucus secretions with near complete obliteration of PRISCILLA bronchus and more distal bronchi, subtle tree in bud opacities; RUL correlate with concern for aspiration 03/07 MRI pseudomeningocele suggests interval enlargement, subacute infarct within brainstem wit more acute infarct no excluded. Discussion held with pts anel Macias, Dr. Ramirez, and Jairon, ICU Fellow and myself. The nephew articulated that he believes that there was malpractice with the care of his uncle since hospitalization. He was asked to explain and he said that it started from after surgery when the family noticed dysphagia and weakness on 1 side and they were told that the pt did not have a stroke and then later, he did have a stroke. He said that the pt was transferred to and was treated like a palliative care patient instead of active care. He does not believe he was getting aggressive pulmonary care on the floor. He did not appreciate not getting a call every day from the team. He believes he has been lied to. He expressed that he feels guilty for bringing his uncle here and other family members blame him for the patients decline because he suggested pt come to . He said he called the community administrator travel accommodations rater and that the POWER EQUIPMENT TECHNOLOGY INSTRUCTOR will be reviewing his case and speaking to him. Dr. Ramirez reviewed with the nephew that the pt has pneumonia which has been tx with antibiotics, but the course was broadened in the event there is another bacteria. The pt has collapse of the RAIN, and has had LLL lobectomy. Given his stroke, it is difficult for him to cough up his own secretions. We will institute IPV and lung vibration, and attempt NT suction every 4 hours to see if the lung can be opened up. But it will be difficult to keep it open if the pt can not cough. The nephew did say that his family agree if he should decline, that there be no cpr or intubation. If he is in pain, we should treat the pain knowing it may decrease his respirations. He wants to be called with acute changes in condition. A: s/p Meningioma resection 02/11/18 complicated by brainstem infarct resulting in R side weakness and dysphagia. Acute hypoxemic respiratory failure due to MRSA pneumonia and weakness to cough effectively Tropinemia likely due to demand ischemia Dysphagia and Grade D esophagitis, s/p Peg tube DMII L basilic superficial venous thrombosis-L midline removed Plan: See how pt does with aggressive pulmonary toilet over the next couple of days and reevaluate 1. Zosyn emperic coverage and Linezolid per ID recs, repeat sputum cx with deep suctioning 2. Restart tubefeeds at continuous rate 3. Mobilize pt, PT 4. f/u EKG 5. Update nephew Donta [phone] daily with status and for any emergent change in condition Critical care time 30 minutes. Electronic Signatures: Danielle Corral ([employer] OPERATOR-GROUP MANAGER) (Signed 14-Mar-2018 12:19) Authored: Event Last Updated: 14-Mar-2018 12:19 by Danielle Corral ([employer] OPERATOR-GROUP MANAGER) GLUCOSE-POCT Collected: 03/14/2018 Status: F Source: [facility] 11:43 AM HOSPITALS REPOSITORY TYPE CODE TESTS RESULT OUT OF RANGE REFERENCE UNITS LAB GLUP(LOINC) 74 - 99 mg/dL High 128 GLUCOSE-POCT Performed By: #### GLUPO #### [facility] [address] [place] [address] DAILY PROGRESS Observed: 03/14/2018 Status: COMPLETED Source: UNIVERSITY NOTE-INFECTIOUS DISEASE 10:26 AM HOSPITALS REPOSITORY Service: Infectious Disease Subjective Data: DIPESH BERMUDEZ is a 67 year old Male who is Hospital Day # 33 and POD #31 for left retrosigmoid craniotomy for tumor resection. Additional Information: Patient transferred to ICU overnight after desaturation and Code White. Afebrile. Less lethargic this morning, on high flow NC Objective Data: Objective Information: ---- Intake and Output ----- Mn/Dy/Year TimeIntakeOutputNet Mar 14, 2018 6:00 [id number] Mar 13, 2018 10:00 [id number] Mar 13, 2018 2:00 [id number] The Intake and Output Totals for the last 24 hours are: IntakeOutputNet [id number] T PRBPSpO2 [id number]/7195% Date/Time03/14 8:001 7:001 7: 7:001 7:00 Range(36.3C - 37.4C ) (51 - 124 ) (16 - 31 ) (88 - 157 )/ (23 - 84 ) (81% - 97% ) As of 14-Mar-2018 04:00:00, patient is on 40% oxygen via high-flow nasal cannula. Highest temp of 37.4 C was recorded at 03/13 20:00 Physical Exam: Constitutional: Less lethargic, arousable and more responsive this morning Eyes: PERRL Respiratory/Thorax: lungs with diminished breath sounds on the left side and rhonchi on the right Cardiovascular: irregularly irregular, +S1/S2, tachycardic Gastrointestinal: +BS, soft, PEG Extremities: no peripheral edema Neurological: more responsive today Skin: PEG site c/d/i Medication: Medications: ANTI-INFECTIVES: 1. Nystatin Oral Liquid: 830324 unit(s) Oral Every 6 Hours 2. Linezolid 600 mg IVPB/ Premixed Soln 300 mL: 300 mL IntraVenous Piggyback Every 12 Hours 3. Piperacillin - Tazobactam 4.5 gram/Iso-osmotic 100 mL Premix IVPB: 100 mL IntraVenous Piggyback Every 6 Hours CARDIOVASCULAR AGENTS: 1. Silodosin (NON - Formulary): 8 mg NasoGastric Tube Daily CENTRAL NERVOUS SYSTEM AGENTS: 1. Acetaminophen: 650 mg Oral Every 6 Hours PRN 2. Valproic Acid (Depakene) Oral Liquid: 250 mg PEG Tube Every 12 Hours 3. Ondansetron Injectable: 4 mg IntraVenous Push Every 6 Hours PRN COAGULATION MODIFIERS: 1. Enoxaparin SubCutaneous: 40 mg SubCutaneous Every 24 Hours 2. Heparin Flush 10 unit/ mL PF Injectable: 5 mL IntraVenous Flush Every 12 Hours PRN 3. Heparin Flush 10 unit/ mL PF Injectable PRN: 5 mL IntraVenous Flush According to Flush Policy PRN 4. Heparin Flush 10 unit/ mL PF Injectable PRN: 5 mL IntraVenous Flush According to Flush Policy PRN GASTROINTESTINAL AGENTS: 1. Bisacodyl Rectal: 10 mg Rectal Daily PRN 2. Docusate Oral Liquid: 100 mg Oral 2 Times a Day 3. Fleet Adult (Sodium Phosphate) Rectal: 1 enema Rectal Daily PRN 4. Polyethylene Glycol: 17 gram(s) Oral Daily PRN 5. Polyethylene Glycol: 17 gram(s) Oral Daily 6. Esomeprazole Oral Packet: 40 mg PEG Tube 2 Times a Day METABOLIC AGENTS: 1. Insulin Glargine (Lantus) Injectable: 15 unit(s) SubCutaneous Every 24 Hours 2. Insulin Lispro Mild Corrective Scale: unit(s) SubCutaneous Every 4 Hours 3. Atorvastatin: 40 mg Oral Daily 4. Dextrose 50% in Water Injectable: 25 gram(s) IntraVenous Push Every 15 Minutes PRN 5. Glucagon Injectable: 1 mg IntraMuscular Every 15 Minutes PRN MISCELLANEOUS AGENTS: 1. Nicotine 14 mg/ 24 hour TransDermal: 1 patch TransDermal Every 24 Hours NUTRITIONAL PRODUCTS: 1. Sodium Chloride 0.9% Infusion: 1000 mL IntraVenous <Continuous> 2. Sodium Chloride 0.9% Injectable Flush: 10 mL IntraVenous Flush Every 12 Hours 3. Sodium Chloride 0.9% Injectable Flush: 10 mL IntraVenous Flush Every 12 Hours 4. Sodium Chloride 0.9% Injectable Flush PRN: 10 mL IntraVenous Flush According to Flush Policy PRN 5. Sodium Chloride 0.9% Injectable Flush PRN: 20 mL IntraVenous Flush According to Flush Policy PRN RESPIRATORY AGENTS: 1. Albuterol 2.5 mg/ 3 mL Nebulizer Soln: 3 mL Inhalation Every 6 Hours 2. Albuterol 2.5 mg/ 3 mL Nebulizer Soln: 3 mL Inhalation Every 2 Hours PRN 3. Acetylcysteine 20% Inhalation: 5 mL Inhalation Every 6 Hours 4. Budesonide 0.25 mg/ 2 mL Nebulizer Soln: 2 mL Inhalation Every 12 Hours TOPICAL AGENTS: 1. Petrolatum Topical: 1 application(s) Topical 2 Times a Day Recent Lab Results: Results: I have reviewed these laboratory results: Glucose_POCT Trending View [id number] 07:32:00 14-Mar-2018 02:50:00 14-Mar-2018 00:06:00 [id number] H 102 H 106 H Culture, Blood 14-Mar-2018 01:55:00 ResultValue Culture, Blood NEGATIVE TO DATE, CULTURE IN PROGRESS. Complete Blood Count 13-Mar-2018 20:41:00 ResultValue White Blood Cell Count 27.1 H Nucleated Erythrocyte Count 0.0 Red Blood Cell Count 4.07 L HGB 11.9 L HCT 37.0 L MCV 91 MCHC 32.2 PLT 336 RDW-CV 16.5 H Comprehensive Metabolic Panel 13-Mar-2018 20:41:00 ResultValue Glucose, Serum 93 NA 141 K 4.4 CL 101 Bicarbonate, Serum 30 Anion Gap, Serum 14 BUN 44 H CREAT 1.12 GFR-Non >60 GFR- >60 Calcium, Serum 9.8 ALB 2.8 L ALKP 47 T Pro 6.3 L T Bili 0.6 Alanine Aminotransferase, Serum 23 Aspartate Transaminase, Serum 16 Coagulation Screen 13-Mar-2018 20:41:00 ResultValue Prothrombin Time, Plasma 13.8 H International Normalized Ratio, Plasma 1.2 H Activated Partial Thromboplastin Time 34 Creatine Kinase, Level 13-Mar-2018 20:41:00 ResultValue Creatine Kinase, Level 84 CKMB 13-Mar-2018 20:41:00 ResultValue CKMB 1.6 Radiology Results: Results: Xray Chest 1 View [Mar 13 2018 10:16PM] Assessment and Plan: Assessment: 67 male with hx of HTN, HLD, DM, COPD, CYNTHIA, meningioma s/p resection in 2013 who was admitted on 02/10 for repeat craniotomy of the infratentorial tumor with titanium mesh complicated by post op brainstem infarction who additionally has had a complicated hospitalization. He has had multiple code whites called due to desaturation, and there was concern for aspiration pneumonia/pneumonitis near the beginning of his admission. On 02/17 he was started on Vanco/Cefepime/Azithro/Flagyl. There was concern for continued aspiration, so PEG was placed on 02/21. He completed a 7 day course of Cefepime. On 02/24, respiratory cultures were growing MRSA, so Vanco was restarted with a planned end date of 03/04 to treat MRSA pneumonia. He continued to have a leukocytosis, so ID was consulted on 03/04. There was no new positive culture data, so we switched him from Vanco to Linezolid with planned end date of 03/13. CT of the Chest was done, and he was found to have left lung collapse with concern for necrotizing PNA. He was transferred to the MICU overnight after having a Code White on the floor. He is now on high flow NC but has improved and is much more awake today Microbiology: 02/24 Resp Cx: MRSA 03/14 BCx: pending Antibiotics: Linezolid 600 q12 hours (start 03/13, received it 03/04-03/12) Pip Tazo 4.5 q6 hours (start 03/13) s/p Vanco 02/24-03/04 A/P: 1. Left lung collapse -likely secondary to mucus plugging, less likely necrotizing PNA 2. Hx of MRSA pneumonia 3. meningioma s/p resections in 2013 with repeat crani on 02/11 Recommendations: -Continue Linezolid 600mg IV q12 hours, OK to d/c Pip tazo. Discussed with team, and they would like to wait until sputum culture results -he is much more responsive today -Pulm follow for the collapsed left lung--possible bronch, chest PT for now -f/u repeat BCx -sputum culture pending All findings discussed with the attending, Dr Thelma Friend ID fellow Team [id number] Signature/Cosignature/Attestation: Attending AttestationI saw and evaluated the patient. I personally obtained the gonzalez and critical portions of the history and physical exam or was physically present for gonzalez and critical portions performed by the resident/fellow. I reviewed the resident/fellows documentation and discussed the patient with the resident/fellow. I agree with the resident/fellows medical decision making as documented in the resident/fellows note with the exception/addition of the following: I personally evaluated the patient (as noted in the above attestation) on 14-Mar-2018 Comments/ Additional Findings Marked improvement in oxygenation and mental status after aggressive suctioning of mucus plugs. Sputum sent from procedure. Awaiting cultures and if negative for gram negative organisms, would stop Piperacillin/Tazobactam and continue treatment for Linezolid. Teja Renee MD. pager [phone] Infectious Diseases Attending Physician Team A pager [phone] Electronic Signatures: Lisette Friend (DO (Fellow)) (Signed 14-Mar-2018 18:27) Authored: Service, Subjective Data, Objective Data, Assessment and Plan, Signature/Cosignature/Attestation Teja Renee) (Signed 15-Mar-2018 00:44) Authored: Signature/Cosignature/Attestation Co-Signer: Assessment and Plan, Signature/Cosignature/Attestation Last Updated: 15-Mar-2018 00:44 by Teja Renee) GLUCOSE-POCT Collected: 03/14/2018 Status: F Source: [facility] 7:32 [facility] REPOSITORY TYPE CODE TESTS RESULT OUT OF RANGE REFERENCE UNITS LAB GLUP(LOINC) 74 - 99 mg/dL High 124 GLUCOSE-POCT Performed By: #### GLUPO #### [facility] [address] [facility] [place] [address] CBC Collected: 03/14/2018 Status: CANCELLED Source: [facility] 7:28 [facility] REPOSITORY Order Comment: TEST CBC WAS CANCELLED, 03/14/2018 11:07 DUPLICATE ORDER. TYPE CODE TESTS RESULT OUT OF REFERENCE UNITS RANGE LAB WBCR(LOINC ) WBC Canceled LAB NRBC(LOINC ) NUCLEATED RBC Canceled LAB RBCCT(LOIN C) RBC Canceled LAB HGB(LOINC) HGB Canceled LAB HCT(LOINC) HCT Canceled LAB MCV(LOINC) MCV Canceled LAB MCHC2(LOIN C) MCHC Canceled LAB PLTCT(LOIN C) PLT Canceled LAB RDWCV(LOIN C) RDW-CV Canceled Performed By: #### CBC #### [facility] [address] [place] [address] MAGNESIUM Collected: 03/14/2018 Status: CANCELLED Source: [facility] 7:28 [facility]OSPITALS REPOSITORY Order Comment: TEST MAGNESIUM WAS CANCELLED, 03/14/2018 11:07 DUPLICATE ORDER. TYPE CODE TESTS RESULT OUT OF REFERENCE UNITS RANGE LAB MG(LOINC) MAGNESIUM Canceled Performed By: #### MG #### [facility] [address] [place] [address] RENAL FUNCTION PANEL Collected: 03/14/2018 Status: CANCELLED Source: [facility] 7:28 [facility]OSPITALS REPOSITORY Order Comment: TEST RENAL FUNCTION PANEL WAS CANCELLED, 03/14/2018 11:07 DUPLICATE ORDER. TYPE CODE TESTS RESULT OUT OF REFERENCE UNITS RANGE LAB GLU(LOINC) GLUCOSE Canceled LAB SOD(LOINC) SODIUM Canceled LAB K(LOINC) POTASSIUM Canceled LAB CHLOR(LOIN C) CHLORIDE Canceled LAB BIC(LOINC) BICARBONATE Canceled LAB ANGAP(LOIN C) ANION GAP Canceled LAB UREA(LOINC ) UREA NITROGEN Canceled LAB CREA(LOINC ) CREATININE Canceled LAB GFRFN(LOIN C) GFR-NON AM. Canceled LAB GFRAA(LOIN C) GFR- AM. Canceled Result Comment: CALCULATIONS OF ESTIMATED GFR ARE PERFORMED USING THE MDRD STUDY EQUATION FOR THE IDMS-TRACEABLE CREATININE METHODS. CLIN CHEM 2007;53:766-72 LAB CA(LOINC) CALCIUM Canceled LAB PHOS(LOINC) PHOSPHORUS Canceled Result Comment: The performance characteristics of phosphorus testing in heparinized plasma have been validated by the individual laboratory site where testing is performed. Testing on heparinized plasma is not approved by the FDA; however, such approval is not necessary. LAB ALB(LOINC) Canceled ALBUMIN Performed By: #### RENAL #### [facility] [address] [place] [address] TROPONIN I Collected: 03/14/2018 Status: CANCELLED Source: [facility] 7:28 [facility]OSPITALS REPOSITORY Order Comment: TEST TROPONIN I WAS CANCELLED, 03/14/2018 11:07 DUPLICATE ORDER. TYPE CODE TESTS RESULT OUT OF REFERENCE UNITS RANGE LAB TROP2(LOIN C) TROPONIN I Canceled Result Comment: LESS THAN 0.04 NG/ML: NEGATIVE REPEAT TESTING IN FOUR TO SIX HOURS IF CLINICALLY INDICATED. 0.04 - 0.5 NG/ML: CONSISTENT WITH POSSIBLE CARDIAC DAMAGE AND POSSIBLE INCREASED CLINICAL RISK. SERIAL MEASUREMENTS MAY HELP ASSESS EXTENT OF MYOCARDIAL DAMAGE. >0.5 NG/ML: CONSISTENT WITH CARDIAC DAMAGE, INCREASED CLINICAL RISK AND MYOCARDIAL INFARCTION. SERIAL MEASUREMENTS MAY HELP ASSESS EXTENT OF MYOCARDIAL DAMAGE. . Note: Troponin I testing is performed using different testing methodology at [facility] than at other [facility]. Direct result comparisons should only be made within the same method. . Patients receiving more than 5 mg/day of biotin may have interference in test results. A sample should be taken no sooner than eight hours after previous dose. Contact [phone] for additional information. Performed By: #### TROP2 #### [facility] [address] [place] [address] GLUCOSE-POCT Collected: 03/14/2018 Status: F Source: [facility] 2:50 AM HOSPITALS REPOSITORY TYPE CODE TESTS RESULT OUT OF RANGE REFERENCE UNITS LAB GLUP(LOINC) 74 - 99 mg/dL High 102 GLUCOSE-POCT Performed By: #### GLUPO #### [facility] [address] [place] [id number] URINE Observed: 03/14/2018 Status: F Source: [facility]EL CULTURE,BACTERIAL 1:57 AM HOSPITALS REPOSITORY PATIENT: DIPESH BERMUDEZ LOCATION: [facility] BILL#: [id number] : 54 AGE: SEX: M ORDERED BY: TAMELA BYNUM SOURCE: URINE COLLECTED: 03/14/18 01:57 ANTIBIOTICS AT [facility].: RECEIVED : 03/14/18 08:03 SITE: [facility] R E S [facility] T S URINE CULTURE,BACTERIAL FINAL 03/15/18 03:00 NO GROWTH Performed By: #### URINC #### [facility] [address] [place] [address] Observed: 03/14/2018 Status: F Source: [facility] BLOOD CULTURE, 1:55 AM HOSPITALS REPOSITORY BACTERIAL PATIENT: DIPESH BERMUDEZ LOCATION: [facility] BILL#: [id number] : 54 AGE: SEX: M ORDERED BY: TAEMLA BYNUM SOURCE: Blood COLLECTED: 03/14/18 01:55 ANTIBIOTICS AT [facility].: RECEIVED : 03/14/18 08:45 SITE: [facility] R E S U L T S BLOOD CULTURE, BACTERIAL FINAL 03/19/18 09:42 No Growth at 1 days No Growth at 2 days No Growth at 3 days No Growth at 4 days NO GROWTH - FINAL REPORT Performed By: #### BLDC #### [facility] [address] [place] [address] CBC AND DIFFERENTIAL Collected: 03/14/2018 Status: F Source: [facility] 1:53 AM [facility]OSPITALS REPOSITORY TYPE CODE TESTS RESULT OUT OF REFERENCE UNITS RANGE LAB WBCR(LOINC 4.4 - 11.3 x10E9/L ) WBC High 27.5 LAB NRBC(LOINC 0.0-0.0 /100 WBC ) NUCLEATED RBC 0.0 LAB RBCCT(LOIN 4.50 - 5.90 x10E12/L C) Low RBC 4.06 LAB HGB(LOINC) 13.5 - 17.5 g/dL Low HGB 12.0 LAB HCT(LOINC) 41.0 - 52.0 % Low HCT 37.0 LAB MCV(LOINC) 80 - 100 fL MCV 91 LAB MCHC2(LOIN 32.0 - 36.0 g/dL C) MCHC 32.4 LAB PLTCT(LOIN 150 - 450 x10E9/L C) PLT 278 LAB RDWCV(LOIN 11.5 - 14.5 % C) RDW-CV High 16.8 LAB NEUT(LOINC 40.0 - 80.0 % ) % NEUTROPHIL 83.0 LAB IG(LOINC) 0.0 - 0.9 % % AUTOMATED 0.9 IMMATURE GRAN Result Comment: Percent differential counts (%) should be interpreted in the context of the absolute cell counts (cells/L). LAB LYMPH(LOINC) 13.0 - 44.0 % % LYMPHOCYTE 6.3 LAB MONO(LOINC) 2.0 - 10.0 % % MONOCYTE 9.4 LAB EOS(LOINC) 0.0 - 6.0 % % EOSINOPHIL 0.0 LAB BASO(LOINC) 0.0 - 2.0 % % BASOPHIL 0.4 LAB #NEUT(LOINC) 1.20 - 7.70 x10E9/L NEUTROPHIL High 22.82 LAB #LYMP(LOINC) 1.20 - 4.80 x10E9/L LYMPHOCYTE 1.73 LAB #MONO(LOINC) 0.10 - 1.00 x10E9/L MONOCYTE High 2.60 LAB #EOS(LOINC) 0.00 - 0.70 x10E9/L EOSINOPHIL 0.01 LAB #BASO(LOINC) 0.00 - 0.10 x10E9/L BASOPHIL High 0.11 Performed By: #### CBCDF #### [facility] [address] [place] [address] MAGNESIUM Collected: 03/14/2018 Status: F Source: [facility] 1:53 HOSPITALS REPOSITORY TYPE CODE TESTS RESULT OUT OF REFERENCE UNITS RANGE LAB MG(LOINC) 1.60 - 2.40 mg/dL MAGNESIUM 2.27 Performed By: #### MG #### [facility] [address] [place] [id number] RENAL FUNCTION PANEL Collected: 03/14/2018 Status: F Source: [facility] 1:53 HOSPITALS REPOSITORY TYPE CODE TESTS RESULT OUT OF REFERENCE UNITS RANGE LAB GLU(LOINC) 74 - 99 mg/dL GLUCOSE High 133 LAB SOD(LOINC) 136 - 145 mmol/L SODIUM 143 LAB K(LOINC) 3.5 - 5.3 mmol/L POTASSIUM 4.2 LAB CHLOR(LOIN 98 - 107 mmol/L C) CHLORIDE 103 LAB BIC(LOINC) 21 - 32 mmol/L BICARBONATE 31 LAB ANGAP(LOIN 10 - 20 mmol/L C) ANION GAP 13 LAB UREA(LOINC 6 - 23 mg/dL ) UREA High NITROGEN 46 LAB CREA(LOINC 0.50 - 1.30 mg/dL ) CREATININE 1.09 LAB GFRFN(LOIN >60 mL/min/1.7 C) 3m2 GFR-NON AM. >60 LAB GFRAA(LOIN >60 mL/min/1.7 C) 3m2 GFR- AM. >60 Result Comment: CALCULATIONS OF ESTIMATED GFR ARE PERFORMED USING THE MDRD STUDY EQUATION FOR THE IDMS-TRACEABLE CREATININE METHODS. CLIN CHEM 2007;53:766-72 LAB CA(LOINC) 8.6 - 10.6 mg/dL CALCIUM 9.4 LAB PHOS(LOINC) 2.5 - 4.9 mg/dL PHOSPHORUS 4.0 Result Comment: The performance characteristics of phosphorus testing in heparinized plasma have been validated by the individual laboratory site where testing is performed. Testing on heparinized plasma is not approved by the FDA; however, such approval is not necessary. LAB ALB(LOINC) 3.4 - 5.0 g/dL Low ALBUMIN 2.3 Performed By: #### RENAL #### [facility] [address] [place] [address] TROPONIN I Collected: 03/14/2018 Status: F Source: [facility] 1:53 AM HOSPITALS REPOSITORY TYPE CODE TESTS RESULT OUT OF REFERENCE UNITS RANGE LAB TROP2(LOINC 0.00 - 0.03 ng/mL ) High TROPONIN I 0.11 Result Comment: LESS THAN 0.04 NG/ML: NEGATIVE REPEAT TESTING IN FOUR TO SIX HOURS IF CLINICALLY INDICATED. 0.04 - 0.5 NG/ML: CONSISTENT WITH POSSIBLE CARDIAC DAMAGE AND POSSIBLE INCREASED CLINICAL RISK. SERIAL MEASUREMENTS MAY HELP ASSESS EXTENT OF MYOCARDIAL DAMAGE. >0.5 NG/ML: CONSISTENT WITH CARDIAC DAMAGE, INCREASED CLINICAL RISK AND MYOCARDIAL INFARCTION. SERIAL MEASUREMENTS MAY HELP ASSESS EXTENT OF MYOCARDIAL DAMAGE. . Note: Troponin I testing is performed using different testing methodology at [facility] than at other [facility]. Direct result comparisons should only be made within the same method. . Patients receiving more than 5 mg/day of biotin may have interference in test results. A sample should be taken no sooner than eight hours after previous dose. Contact [phone] for additional information. Performed By: #### TROP2 #### [facility] [address] [place] [address] Observed: 03/14/2018 Status: F Source: [facility] BLOOD CULTURE, 1:53 AM HOSPITALS REPOSITORY BACTERIAL PATIENT: DIPESH BERMUDEZ LOCATION: [facility] BILL#: [id number] : 54 AGE: SEX: M ORDERED BY: TAMELA BYNUM SOURCE: Blood COLLECTED: 03/14/18 01:53 ANTIBIOTICS AT [facility].: RECEIVED : 03/14/18 08:49 SITE: PERIPHERAL R E S U L T S BLOOD CULTURE, BACTERIAL FINAL 03/19/18 09:42 No Growth at 1 days No Growth at 2 days No Growth at 3 days No Growth at 4 days NO GROWTH - FINAL REPORT Performed By: #### BLDC #### [facility] [address] [place] [address] HISTORY AND PHYSICAL Observed: 03/14/2018 Status: COMPLETED Source: [facility] 1:35 AM HOSPITALS REPOSITORY Service: Critical Care Service: ServiceMICU History of Present Illness: HPI: PCP: none on record Neurosurgeon: notes outpatient from Dr Allie Parada Admission Reason: Hypoxemic Respiratory Failure HPI: Mr Bermudez is a 67 yo man with PMHx s/f COPD (no PFTs on record), DM type II (A1C 8.1% on 02/2018), CYNTHIA (non compliant with CPAP) and History of Meningioma (s/p craniotomy with resection in 2013 in [facility]) who presents to the MICU for Hypoxemic Respiratory Failure. Patient was initially admitted to [facility] for repeat surgical resection of Meningioma, underwent retrosigmoid craniectomy with resection of infratentorial meningioma on 02/11/2018. Hospital course has been prolonged complicated by Brainstem infarction with development of subsequent dysphagia. Patient has had multiple Code Whites/transfers to the MICU for respiratory distress and desaturations thought to be 2/2 aspiration episodes. He was started on Vancomycin/Cefepime/Azithromycin/Flagyl 02/17 and initially completed a 7 day course. Due to continued concerns for aspiration patient underwent PEG tube placement 02/21. On 02/24, SpCx was positive for MRSA so Vancomycin was restarted with initial planned stop date of 03/04. Given continued elevated WBC (15-20s), ID was consulted and recommended stopping Vancomycin and switching to Linezolid with planned stop date 03/13. On 03/12 patient noted to have desaturations, tachycardia and O2 requirement (although per chart review patient was continued on 3L NC). CT PE showed near complete L lung collapse with concerns for necrotizing Pneumonia so he was restarted on IV Zosyn, switched from Linezolid to Vancomycin. Both ID and Pulmonary were re-consulted. Pulmonary recommended aggressive chest physiotherapy to promote bronchial clearance, vest therapy and IPV. ID recommended continuing IV Zosyn, switching back to IV Linezolid and possible bronchoscopy. Today Code [place] was called for worsening mental status and desaturations necessitating escalation to NRB mask, ABG 7.47/45/74 97% SO2. Discussion was held with the family and despite continued desire for DNAR/DNI the decision was made to transfer to the MICU for high flood oxygen. On arrival to the MICU patient is lethargic, only opening eyes to sternal rub and not following commands. Repeat ABG 7.46/44/66 93% SO2 on Vapotherm, FiO2 100%, 40LPM. Family at bedside, discussing GOC. 12 point ROS is unable to be obtained given patients mental status PMHx: as above PSHx: as above Social: prior everyday smoker, no alcohol or illicit drugs reported All: Codeine Sulfate, Penicillin, Insulin Home Medications: -Metformin 1000mg BID -Amlodipine 10mg daily -Lisinopril 30mg daily -Albuterol PRN -HCTZ 25mg daily -Mometasone -Atorvastatin 40mg daily -Divalproex ER 500mg daily -Insulin Lantus 40u qhs -Novolog 8u TID -Melatonin qhs -Trazodone 100mg qhs -Risperdal 3mg qhs Medications on transfer: as below Comorbidities: Comorbid Conditionsdiabetes, hypertension Diabtetes TypeType 2 Insulin Dependentyes DM Acuity or Statuspoorly controlled DM Complicationsunknown Allergies: Codeine Sulfate: Unknown penicillin: Unknown insulin: Unknown Intolerances: Aspir 81: GI Upset Medications Prior to Admission: amLODIPine 10 mg oral tablet: 1 tab(s) orally once a day (at bedtime) hydroCHLOROthiazide 25 mg oral tablet: 1 tab(s) orally once a day (at bedtime) lisinopril 30 mg oral tablet: orally once a day (at bedtime) atorvastatin 40 mg oral tablet: orally once a day (at bedtime) metFORMIN 1000 mg oral tablet: 1 tab(s) orally 2 times a day RisperDAL 3 mg oral tablet: orally once a day (at bedtime) Melatonin: orally once a day (at bedtime) traZODone 100 mg oral tablet: 1 orally once a day (at bedtime). Objective: Objective Information: Objective Information T PRBPSpO2 [id number]/6295% Date/Time03/14 0: 1: 1:: 1:00 Range(36.6C - 37.4C ) (51 - 124 ) (16 - 31 ) (88 - 157 )/ (23 - 87 ) (85% - 97% ) As of 13-Mar-2018 20:00:00, patient is on 40% oxygen via high-flow nasal cannula. Highest temp of 37.4 C was recorded at 03/13 20:00 Pain with Activity reported at 03/13 2:12: 0 Pain at Rest reported at 03/13 2:12: 0 ---- Intake and Output ----- Mn/Dy/Year TimeIntakeOutputNet Mar 12, 2018 10:00 [id number] Mar 12, 2018 2:00 [id number] Mar 12, 2018 6:00 [id number] The Intake and Output Totals for the last 24 hours are: IntakeOutputNet [id number] Physical Exam: Neurological: Lethargic, opens eyes to sternal rub and painful stimuli, does not follow commands or answer questions Cardiovascular: Tachycardic but regular, +posteriolateral displacement of PMI Respiratory/Thorax: Crackles throughtout L lung, basilar crackles in RLL Gastrointestinal: soft, non distended, no grimmacing to deep palpation, PEG tube site appears clean and intact, no bleeding or significant erythema Constitutional: Lethargic Extremities: No LE edema, +venous stasis changes Medications: Medications: Continuous Medications 1. Sodium Chloride 0.9% Infusion: 1000 mL IntraVenous <Continuous> Scheduled Medications 1. Acetylcysteine 20% Inhalation: 5 mL Inhalation Every 6 Hours 2. Albuterol 2.5 mg/ 3 mL Nebulizer Soln: 3 mL Inhalation Every 6 Hours 3. Atorvastatin: 40 mg Oral Daily 4. Budesonide 0.25 mg/ 2 mL Nebulizer Soln: 2 mL Inhalation Every 12 Hours 5. Docusate Oral Liquid: 100 mg Oral 2 Times a Day 6. Enoxaparin SubCutaneous: 40 mg SubCutaneous Every 24 Hours 7. Esomeprazole Oral Packet: 40 mg PEG Tube 2 Times a Day 8. Insulin Glargine (Lantus) Injectable: 15 unit(s) SubCutaneous Every 24 Hours 9. Insulin Lispro Mild Corrective Scale: unit(s) SubCutaneous Every 4 Hours 10. Linezolid 600 mg IVPB/ Premixed Soln 300 mL: 300 mL IntraVenous Piggyback Every 12 Hours 11. Nicotine 14 mg/ 24 hour TransDermal: 1 patch TransDermal Every 24 Hours 12. Nystatin Oral Liquid: 360121 unit(s) Oral Every 6 Hours 13. Petrolatum Topical: 1 application(s) Topical 2 Times a Day 14. Piperacillin - Tazobactam 4.5 gram/Iso-osmotic 100 mL Premix IVPB: 100 mL IntraVenous Piggyback Every 6 Hours 15. Polyethylene Glycol: 17 gram(s) Oral Daily 16. Silodosin (NON - Formulary): 8 mg NasoGastric Tube Daily 17. Sodium Chloride 0.9% Injectable Flush: 10 mL IntraVenous Flush Every 12 Hours 18. Valproic Acid (Depakene) Oral Liquid: 250 mg PEG Tube Every 12 Hours PRN Medications 1. Acetaminophen: 650 mg Oral Every 6 Hours 2. Albuterol 2.5 mg/ 3 mL Nebulizer Soln: 3 mL Inhalation Every 2 Hours 3. Bisacodyl Rectal: 10 mg Rectal Daily 4. Dextrose 50% in Water Injectable: 25 gram(s) IntraVenous Push Every 15 Minutes 5. Fleet Adult (Sodium Phosphate) Rectal: 1 enema Rectal Daily 6. Glucagon Injectable: 1 mg IntraMuscular Every 15 Minutes 7. Heparin Flush 10 unit/ mL PF Injectable PRN: 5 mL IntraVenous Flush According to Flush Policy 8. Lidocaine 1% Injectable (PICC KIT): 1 mL IntraDermal Once 9. Ondansetron Injectable: 4 mg IntraVenous Push Every 6 Hours 10. Polyethylene Glycol: 17 gram(s) Oral Daily Recent Lab Results: Results: I have reviewed these laboratory results: Glucose_POCT Trending View [id number] 00:06:00 13-Mar-2018 18:12:00 13-Mar-2018 15:56:00 Glucose-IDXG700 H 98 83 Complete Blood Count 13-Mar-2018 20:41:00 ResultValue White Blood Cell Count 27.1 H Nucleated Erythrocyte Count 0.0 Red Blood Cell Count 4.07 L HGB 11.9 L HCT 37.0 L MCV 91 MCHC 32.2 PLT 336 RDW-CV 16.5 H Comprehensive Metabolic Panel 13-Mar-2018 20:41:00 ResultValue Glucose, Serum 93 NA 141 K 4.4 CL 101 Bicarbonate, Serum 30 Anion Gap, Serum 14 BUN 44 H CREAT 1.12 GFR-Non >60 GFR- >60 Calcium, Serum 9.8 ALB 2.8 L ALKP 47 T Pro 6.3 L T Bili 0.6 Alanine Aminotransferase, Serum 23 Aspartate Transaminase, Serum 16 Coagulation Screen 13-Mar-2018 20:41:00 ResultValue Prothrombin Time, Plasma 13.8 H International Normalized Ratio, Plasma 1.2 H Activated Partial Thromboplastin Time 34 Creatine Kinase, Level 13-Mar-2018 20:41:00 ResultValue Creatine Kinase, Level 84 CKMB 13-Mar-2018 20:41:00 ResultValue CKMB 1.6 Troponin I, Serum Trending View [id number] 20:41:00 13-Mar-2018 17:56:00 13-Mar-2018 09:17:00 Troponin I, Serum0.12 H 0.11 H 0.12 H Arterial Full Panel Trending View [id number] 19:11:00 13-Mar-2018 16:23:00 pH, Arterial7.46 H 7.47 H pCO2, Foybacge31 H 45 H pO2, Ioyyegpz11 L 74 L Patient-Yyjwmldqpaq53.0 37.0 SO2, Jmipziyh06 L 97 HCT42.0 42.0 Sodium-Dvgnk699 L 138 Potassium-Level4.5 4.5 Chloride-Ntlos478 107 Calcium, Ionized-Level1.36 H 1.36 H Glucose-Rmljv947 H 77 Lactate-Level1.0 1.5 Base Excess-Blood6.6 H 8.0 H Bicarbonate, Calculated, Gbsfbdom82.3 H 32.8 H HGB, Wtavweyqom74.3 14.3 Anion Gap-Level5 L 3 L Culture, Respiratory Lower, incl. smear 13-Mar-2018 15:49:00 ResultValue Gram Stain THE GRAM STAIN INDICATES THAT THE SPECIMEN CONTAINS SIGNIFICANT SALIVARY CONTAMINATION. THE CULTURE WILL NOT BE PROCESSED IT WILL BE OF LIMITED DIAGNOSTIC VALUE.A SPECIMEN OF BETTER QUALITY SHOULD BE SUBMITTED IF CLINICALLY INDICATED. Complete Blood Count + Differential 13-Mar-2018 09:17:00 ResultValue White Blood Cell Count 20.0 H Nucleated Erythrocyte Count 0.0 Red Blood Cell Count 4.78 HGB 13.6 HCT 44.5 MCV 93 MCHC 30.6 L PLT 350 RDW-CV 16.2 H Neutrophil % 74.7 Immature Granulocytes % 2.8 Lymphocyte % 10.9 Monocyte % 10.4 Eosinophil % 0.5 Basophil % 0.7 Neutrophil Count 14.98 H Lymphocyte Count 2.17 Monocyte Count 2.08 H Eosinophil Count 0.09 Basophil Count 0.13 H Renal Function Panel 13-Mar-2018 09:17:00 ResultValue Glucose, Serum 209 H NA 137 K 5.0 CL 98 Bicarbonate, Serum 28 Anion Gap, Serum 16 BUN 43 H CREAT 0.99 GFR-Non >60 GFR- >60 Calcium, Serum 9.7 Phosphorus, Serum 3.5 ALB 2.7 L Results: Impression: 1. Interval increase in left lower lung zone consolidation with associated atelectasis and pleural effusion likely secondary to worsening infectious etiology. 2. Minimal right basilar atelectasis/pleural effusion. Xray Chest 1 View [Mar 13 2018 10:16PM] Assessment and Plan: Neurology: Diagnosis: Mr Bermudez is a 67 yo man with PMHx s/f COPD (no PFTs on record), DM type II (A1C 8.1% on 02/2018), CYNTHIA (non compliant with CPAP) and History of Meningioma (s/p craniotomy with resection in 2013 in [facility]) who was initially admitted to [facility] for repeat craniotomy and meningioma resection 01/2018, hospitalization c/b brainstem stroke and subsequent dysphagia now presenting to the MICU for Hypoxemic Respiratory Failure likely 2/2 inability to clear secretions leading to near complete L lung collapse. Patient currently remains hypoxic despite Vapotherm at 100%, family would not like escalation of care, discussion to pursue comfort care ongoing. 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 -Continue Valproic Acid 250mg BID via PEG Respiratory #Hypoxemic Respiratory Failure -suspect 2/2 inability to clear secretions leading to near total L lung collapse -Labs remarkable for increasing WBC to 27->will trend, repeat BCx2, UCx and SpCx ordered as above -CXR showed interval increase in left lower lung zone consolidation with associated atelectasis and pleural effusion likely secondary to worsening infectious etiology -Continue Vapotherm at 100%, 40 LPM->no escalation of O2 per discussion with family -Continue Mycomyst q6hrs scheduled, Pulmicort BID, Albuterol q6hrs -Continue Bronchial Hygiene with Mechanical vest therapy and IPV (pending patients ability to cooperate) q4hrs scheduled -Continue IV Linezolid 600mg BID, IV Zosyn 4.5grams q6hrs -ID following, appreciate recs Cardiovascular #Troponin leak -suspect 2/2 demand ischemia -EKG without acute ischemic changes -Troponin 0.12->0.11->0.12, will stop trending #Sinus Tachycardia -suspect reactive 2/2 underlying infection -will allow compensatory tachycardia for now -Continue NS at 75cc/hr #HTN -Holding home Amlodipine, Lisinopril, HCTZ Renal -no active issues GI #Dysphagia -suspect 2/2 stroke -Speech pathology consulted->patient failed MBS -ENT consulted, performed flexible laryngoscopy and noted generalized pharyngeal weakness with gross aspiration -PEG tube placed by GI 02/21 -TF now on hold given concern for persistent aspiration #Grade D Esophagitis -per GI, continue Esomeprazole 40mg BID x3 months -follow up outpatient Endocrine #DM type II -A1C 8.1% on 02/2018 -Will hold home Metformin 1000mg BID -Home insulin regimen: Lantus 40u qhs, Novolog 8u TID -Given currently NPO will decrease Lantus to 15u qhs +SSI -Monitor for hypoglycemia Heme/Onc #Superficial Venous Thrombosis -03/06 Duplex showing L basilica vein thrombus-associated with midline -given midline is sole access, plan to keep until discharge -warm compresses as needed Fluids: NS at 75cc/hr Electrolytes: Replete as needed Diet: NPO for now, PEG for medications. Discuss restarting TF in the AM Prophylaxis DVT: SCDs, SubQ Lovenox GI: Esomeprazole 40mg BID Lines: L arm midline (placed 02/15)->will need to be replaced tomorrow, consider sending tip for culture DNAR/DNI, no escalation of care. Per discussion with family, if respiratory status were to deteriorate from current, plan is to initiate palliative measures. Code Status: Code StatusDNAR with Added Limitations Signatures/Attestation/Certification: Attending AttestationI saw and evaluated the patient. I personally obtained the gonzalez and critical portions of the history and physical exam or was physically present for gonzalez and critical portions performed by the resident/fellow. I reviewed the resident/fellows documentation and discussed the patient with the resident/fellow. I agree with the resident/fellows medical decision making as documented in the resident/fellows note with the exception/addition of the following: I personally evaluated the patient (as noted in the above attestation) on 14-Mar-2018 Comments/ Additional Findings this critically ill patient continues to be at-risk for deterioration / failure due to the above mentioned dysfunctional unstable organ systems. I have personally identified and managed all critical care issues. Assessment, impressions and plans are reflected in the note above as well as the orders. Critical care time is spent at bedside includes review of diagnostic tests, labs, and radiographs, serial assessments and management of hemodynamics, respiratory status, ventilation and coordination of care Time spent in critical care is 50 minutes gonzalez critical care issues include - acute, probably on chronic respiratory failure secondary to progressive atelectasis of the left lung. A superimposed bacterial pneumonia is also suspected given the increased secretions and tendency for mucus plugging Encephalopathy - it is metabolic in nature - mainly related to the hypoxia and sepsis without shock that is likely induced by pneumonia. aspiration is not excluded recent brain stem infarct resulting in significant dysphagia - now NPO with enteral feeding via PEG , plan to switch it to continuous feeding rather than bolus feeding DM - need to optimize glycemic control with SC insulin Met with POAugustina = Donta Tam . He is frustrated and is concerned about the multiple transfers. We agreed for the next 24 to focus on treatment with the least invasive strategy possible. DNR and I status maintained. my team will communicate with Donta directly any change in condition as well as the progress of management Critical Care PatientI have reviewed and evaluated the most recent data and results, personally examined the patient, and formulated the plan of care as presented above. This patient was critically ill and required continued critical care treatment. Teaching and any separately billable procedures are not included in the time calculation. Billing Provider Critical Care Time50 minute(s) Primary Critical Care Issue/Treatment (See Assessment and Plan for greater detail)-- This patient has impending or acute respiratory failure. We are treating with appropriate medications, ventilatory and/or oxygenating support, as indicated, as well as intensive monitoring. Please see assessment and plan above for greater detail.; -- This patient has significantly altered mental status (delirium, encephalopathy, coma, or anoxic brain damage). We are treating with appropriate medications, hemodynamic support, ventilatory and/or oxygenating support, as indicated, as well as doing intensive diagnostic evaluation and neurological monitoring. Please see assessment and plan above for greater detail. Attending Provider Inpatient Certification StatementI certify this patients need for inpatient care based on the above documentation including; the order to admit as inpatient, the anticipated length of stay, diagnosis, problem list and plan of care, and discharge plan. Electronic Signatures: Shagufta Ramirez) (Signed 15-Mar-2018 14:39) Authored: Signatures/Attestation/Certification Tamela Bynum (Resident)) (Signed 14-Mar-2018 01:45) Authored: Service, History of Present Illness, Allergies, Medications Prior to Admission, Objective, Assessment and Plan, Signatures/Attestation/Certification, Comorbidities Last Updated: 23-Mar-2018 10:06 by Zhane Garcia ([facility]) CLINICAL EVENT Observed: 03/14/2018 Status: UNK Source: [facility] NOTE-GOALS OF CARE 12:31 AM HOSPITALS REPOSITORY Event: Topic: Goals of Care Details: Met with family to discuss re-escalation of care as the patient was transferred to the ICU. Relayed to family it appears patient is having recurrent difficulties handling mucus secretions and difficulties with hypoxia with a component of mucus plugging. Patient had previously reported he did not want to be intubated. Given that patient has had a long and complicated hospital stay with poor prognosis, the consideration of comfort measures was discussed, however, family declined, reporting they prefer continuation of current care, with no escalation of care and comfort measures to be instituted should patient further deteriorate Electronic Signatures: Christina Palma ( (Fellow)) (Signed 14-Mar-2018 07:34) Authored: Event Last Updated: 14-Mar-2018 07:34 by Christina Palma ( (Fellow)) GLUCOSE-POCT Collected: 03/14/2018 Status: F Source: [facility] 12:06 AM HOSPITALS REPOSITORY TYPE CODE TESTS RESULT OUT OF RANGE REFERENCE UNITS LAB GLUP(LOINC) 74 - 99 mg/dL High 106 GLUCOSE-POCT Performed By: #### GLUPO #### [facility] [address] [place] [address] COAGULATION SCREEN Collected: 03/13/2018 Status: CANCELLED Source: [facility] 9:05 PM HOSPITALS REPOSITORY Order Comment: TEST COAGULATION SCREEN WAS CANCELLED, 03/14/2018 08:28 DUPLICATE ORDER. TYPE CODE TESTS RESULT OUT OF REFERENCE UNITS RANGE LAB PT(LOINC) PROTHROMBIN TIME Canceled Result Comment: Note new reference range as of 03/08/2018. LAB INR(LOINC) Canceled PT, INR LAB APTT(LOINC) Canceled APTT Result Comment: Note new reference range as of 03/08/2018. THE APTT IS NO LONGER USED FOR MONITORING UNFRACTIONATED HEPARIN THERAPY. FOR MONITORING HEPARIN THERAPY, USE THE HEPARIN ASSAY. Performed By: #### COAGS #### [facility] [address] [place] [address] EMR ADDON Collected: 03/13/2018 Status: F Source: [facility] 9:04 PM HOSPITALS REPOSITORY TYPE CODE TESTS RESULT OUT OF REFERENCE UNITS RANGE LAB EMRAC(LOIN C) ADDON CONFIRMATION REQUEST REC'D Performed By: #### EMRAD #### NO LOCATION NEEDED CBC Collected: 03/13/2018 Status: CANCELLED Source: [facility] 9:04 PM HOSPITALS REPOSITORY Order Comment: TEST CBC WAS CANCELLED, 03/14/2018 08:28 DUPLICATE ORDER. TYPE CODE TESTS RESULT OUT OF REFERENCE UNITS RANGE LAB WBCR(LOINC ) WBC Canceled LAB NRBC(LOINC ) NUCLEATED RBC Canceled LAB RBCCT(LOIN C) RBC Canceled LAB HGB(LOINC) HGB Canceled LAB HCT(LOINC) HCT Canceled LAB MCV(LOINC) MCV Canceled LAB MCHC2(LOIN C) MCHC Canceled LAB PLTCT(LOIN C) PLT Canceled LAB RDWCV(LOIN C) RDW-CV Canceled Performed By: #### CBC #### [facility] [address] [place] [address] COMPREHENSIVE PANEL Collected: 03/13/2018 Status: CANCELLED Source: [facility] 9:04 PM HOSPITALS REPOSITORY Order Comment: TEST COMPREHENSIVE PANEL WAS CANCELLED, 03/14/2018 08:28 DUPLICATE ORDER. TYPE CODE TESTS RESULT OUT OF REFERENCE UNITS RANGE LAB GLU(LOINC) GLUCOSE Canceled LAB SOD(LOINC) SODIUM Canceled LAB K(LOINC) POTASSIUM Canceled LAB CHLOR(LOIN C) CHLORIDE Canceled LAB BIC(LOINC) BICARBONATE Canceled LAB ANGAP(LOIN C) ANION GAP Canceled LAB UREA(LOINC ) UREA NITROGEN Canceled LAB CREA(LOINC ) CREATININE Canceled LAB GFRFN(LOIN C) GFR-NON AM. Canceled LAB GFRAA(LOIN C) GFR- AM. Canceled Result Comment: CALCULATIONS OF ESTIMATED GFR ARE PERFORMED USING THE MDRD STUDY EQUATION FOR THE IDMS-TRACEABLE CREATININE METHODS. CLIN CHEM 2007;53:766-72 LAB CA(LOINC) CALCIUM Canceled LAB ALB(LOINC) ALBUMIN Canceled LAB AP(LOINC) ALKALINE Canceled PHOSPHATASE LAB TP(LOINC) TOTAL PROTEIN Canceled LAB AST(LOINC) AST Canceled LAB TBILI(LOINC) BILIRUBIN,TOTAL Canceled LAB ALT(LOINC) ALT Canceled Result Comment: Patients treated with Sulfasalazine may generate falsely decreased results for ALT. Performed By: #### CMP #### [facility] [address] [place] [address] TH CHEST 1 VIEW Observed: 03/13/2018 Status: F Source: [facility] 8:56 PM HOSPITALS REPOSITORY Patient Name: DIPESH BERMUDEZ STUDY: TH CHEST 1 VIEW; 03/13/2018 8:56 pm INDICATION: Signs/Symptoms: increased oxygen demand, SOB. COMPARISON: CT chest dated 03/12/2018, 03/04/2018, chest radiograph dated 02/28/2018 ACCESSION NUMBER(S): [id number] ORDERING CLINICIAN: TAMELA BYNUM FINDINGS: CARDIOMEDIASTINAL SILHOUETTE: Cardiomediastinal silhouette is stable in size and configuration. LUNGS: Patient is status post left lower lobectomy. There is increased left lower lung zone opacification. There is decreased aeration of the left upper lung zone. There is minimal right basilar opacification. No evidence of pneumothorax. ABDOMEN: No remarkable upper abdominal findings. BONES: No acute osseous changes. IMPRESSION: 1. Interval increase in left lower lung zone consolidation with associated atelectasis and pleural effusion likely secondary to worsening infectious etiology. 2. Minimal right basilar atelectasis/pleural effusion. I personally reviewed the images/study and I agree with the findings as stated. This study was interpreted at [facility], [place], [place]. Electronically signed by: Brandee COTTER MD CBC Collected: 03/13/2018 Status: F Source: [place] [id number] [place] [address] REPOSITORY TYPE CODE TESTS RESULT OUT OF REFERENCE UNITS RANGE LAB WBCR(LOINC 4.4 - 11.3 x10E9/L ) WBC High 27.1 LAB NRBC(LOINC 0.0-0.0 /100 WBC ) NUCLEATED RBC 0.0 LAB RBCCT(LOIN 4.50 - 5.90 x10E12/L C) Low RBC 4.07 LAB HGB(LOINC) 13.5 - 17.5 g/dL Low HGB 11.9 LAB HCT(LOINC) 41.0 - 52.0 % Low HCT 37.0 LAB MCV(LOINC) 80 - 100 fL MCV 91 LAB MCHC2(LOIN 32.0 - 36.0 g/dL C) MCHC 32.2 LAB PLTCT(LOIN 150 - 450 x10E9/L C) PLT 336 LAB RDWCV(LOIN 11.5 - 14.5 % C) High RDW-CV 16.5 Performed By: #### CBC #### [facility] [address] [place] [address] COMPREHENSIVE PANEL Collected: 03/13/2018 Status: F Source: [place] [id number] [place] [address] REPOSITORY TYPE CODE TESTS RESULT OUT OF REFERENCE UNITS RANGE LAB GLU(LOINC) 74 - 99 mg/dL GLUCOSE 93 LAB SOD(LOINC) 136 - 145 mmol/L SODIUM 141 LAB K(LOINC) 3.5 - 5.3 mmol/L POTASSIUM 4.4 LAB CHLOR(LOIN 98 - 107 mmol/L C) CHLORIDE 101 LAB BIC(LOINC) 21 - 32 mmol/L BICARBONATE 30 LAB ANGAP(LOIN 10 - 20 mmol/L C) ANION GAP 14 LAB UREA(LOINC 6 - 23 mg/dL ) UREA High NITROGEN 44 LAB CREA(LOINC 0.50 - 1.30 mg/dL ) CREATININE 1.12 LAB GFRFN(LOIN >60 mL/min/1.7 C) 3m2 GFR-NON AM. >60 LAB GFRAA(LOIN >60 mL/min/1.7 C) 3m2 GFR- AM. >60 Result Comment: CALCULATIONS OF ESTIMATED GFR ARE PERFORMED USING THE MDRD STUDY EQUATION FOR THE IDMS-TRACEABLE CREATININE METHODS. CLIN CHEM 2007;53:766-72 LAB CA(LOINC) 8.6 - 10.6 mg/dL CALCIUM 9.8 LAB ALB(LOINC) 3.4 - 5.0 g/dL ALBUMIN Low 2.8 LAB AP(LOINC) 33 - 136 U/L ALKALINE PHOSPHATASE 47 LAB TP(LOINC) 6.4 - 8.2 g/dL TOTAL PROTEIN Low 6.3 LAB AST(LOINC) 9 - 39 U/L AST 16 LAB TBILI(LOINC) 0.0 - 1.2 mg/dL BILIRUBIN,TOTAL 0.6 LAB ALT(LOINC) 10 - 52 U/L ALT 23 Result Comment: Patients treated with Sulfasalazine may generate falsely decreased results for ALT. Performed By: #### CMP #### [facility] [address] [place] [address] COAGULATION SCREEN Collected: 03/13/2018 Status: F Source: [place] 8:41 PM HOSPITALS REPOSITORY TYPE CODE TESTS RESULT OUT OF REFERENCE UNITS RANGE LAB PT(LOINC) 9.7 - 12.7 sec PROTHROMBIN High TIME 13.8 Result Comment: Note new reference range as of 03/08/2018. LAB INR(LOINC) 0.9 - 1.1 High PT, INR 1.2 LAB APTT(LOINC) 28 - 38 sec APTT 34 Result Comment: Note new reference range as of 03/08/2018. THE APTT IS NO LONGER USED FOR MONITORING UNFRACTIONATED HEPARIN THERAPY. FOR MONITORING HEPARIN THERAPY, USE THE HEPARIN ASSAY. Performed By: #### COAGS #### [facility] [address] [place] [address] CKMB Collected: 03/13/2018 Status: F Source: [address] REPOSITORY TYPE CODE TESTS RESULT OUT OF RANGE REFERENCE UNITS LAB CKMB(LOINC) ng/mL CKMB 1.6 Result Comment: CKMB testing is performed using different testing methodology at [facility] than at other [facility]. Direct result comparisons should only be made within the same method. REF VALUES CKMB <7 and RI <4% :Negative CKMB <7 and RI >4% :Equivocal CKMB >=7 and RI <4% :Equivocal CKMB >=7 and RI >4% :Positive Performed By: #### CKMB #### [facility] [address] [place] [id number] TROPONIN I Collected: 03/13/2018 Status: F Source: [address] REPOSITORY TYPE CODE TESTS RESULT OUT OF REFERENCE UNITS RANGE LAB TROP2(LOINC 0.00 - 0.03 ng/mL ) High TROPONIN I 0.12 Result Comment: LESS THAN 0.04 NG/ML: NEGATIVE REPEAT TESTING IN FOUR TO SIX HOURS IF CLINICALLY INDICATED. 0.04 - 0.5 NG/ML: CONSISTENT WITH POSSIBLE CARDIAC DAMAGE AND POSSIBLE INCREASED CLINICAL RISK. SERIAL MEASUREMENTS MAY HELP ASSESS EXTENT OF MYOCARDIAL DAMAGE. >0.5 NG/ML: CONSISTENT WITH CARDIAC DAMAGE, INCREASED CLINICAL RISK AND MYOCARDIAL INFARCTION. SERIAL MEASUREMENTS MAY HELP ASSESS EXTENT OF MYOCARDIAL DAMAGE. . Note: Troponin I testing is performed using different testing methodology at [facility] than at [facility]. Direct result comparisons should only be made within the same method. . Patients receiving more than 5 mg/day of biotin may have interference in test results. A sample should be taken no sooner than eight hours after previous dose. Contact [phone] for additional information. Performed By: #### TROP2 #### [facility] [address] [place] [address] CREATINE KINASE Collected: 03/13/2018 Status: F Source: [address] REPOSITORY TYPE CODE TESTS RESULT OUT OF REFERENCE UNITS RANGE LAB CK(LOINC) 0 - 325 U/L CREATINE 84 KINASE Performed By: #### CK #### [facility] [address] [place] [address] ARTERIAL FULL PANEL Collected: 03/13/2018 Status: F Source: [place] 7:11 PM HOSPITALS REPOSITORY TYPE CODE TESTS RESULT OUT OF REFERENCE UNITS RANGE LAB PHART(LOIN 7.38 - 7.42 C) pH High 7.46 LAB PCO2A(LOIN 38 - 42 mmHg C) PCO2 High 44 LAB PO2A(LOINC 85 - 95 mmHg ) PO2 Low 66 LAB TEMP(LOINC degrees C ) PATIENT TEMPERATURE 37.0 Result Comment: NOTE: PATIENT RESULTS ARE NOT CORRECTED FOR TEMPERATURE. LAB SO2%A(LOINC) 94 - 100 % Low SO2 93 LAB HCTN(LOINC) 41.0 - % 52.0 HCT 42.0 LAB SODN(LOINC) 136 - 145 mmol/L Low SODIUM 135 LAB POTN(LOINC) 3.5 - 5.3 mmol/L POTASSIUM 4.5 LAB CHLN(LOINC) 98 - 107 mmol/L CHLORIDE 103 LAB IONCA(LOINC) 1.10 - mmol/L 1.33 High CALCIUM,IONIZED 1.36 LAB GLUN(LOINC) 74 - 99 mg/dL GLUCOSE High 127 LAB LACTN(LOINC) 0.4 - 2.0 mmol/L LACTATE 1.0 LAB BSEXB(LOINC) -2.0 - 3.0 mmol/L BASE High EXCESS-BLOOD 6.6 LAB BICAR(LOINC) 22.0 - mmol/L 26.0 BICARB, High CALCULATED 31.3 LAB HGBNC(LOINC) 13.5 - g/dL 17.5 HGB,CALCULATED 14.3 LAB ANGPN(LOINC) 10 - 25 mmol/L Low ANION GAP 5 Performed By: #### AFPA3 #### [facility] [address] [place] [address] TRANSFER/OFF SERVICE Observed: 03/13/2018 Status: UNK Source: UNIVERSITY NOTE 6:57 PM HOSPITALS REPOSITORY Subjective: Identification Statement: Identification StatementTransfer to ICU for hypoxia Hospital Course: Hospital Course: This is a 67 year old male with history significant for HTN, type II DM, COPD, and meningioma s/p craniotomy with resection 2013 (done at [facility]) who was admitted for repeat surgical resection of meningioma as angiogram prior to admit had no targets for embolization. 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 Postoperative course complicated by dysphagia, brainstem infarction as well as hypoxia concerning for aspiration pneumonia necessitating transfer to ICU. Sputum grew MRSA. He ended up failing modified barium swallow by speech therapy. ENT was consulted and performed flexible laryngoscopy that noted generalized pharyngeal weakness with gross aspiration. GI was consulted and placed PEG tube on 02/21/18 with EGD at that time also noting grade D esophagitis. On 02/24/18 neurosurgery performed lumbar puncture that was unrevealing. Transferred from step down unit to regular nursing floor for further management by medicine service. Most recently noted to have increased [address] chest noting evidence of collapsed left lung as well as aspiration for which pulmonology and ID were reconsulted. Zosyn was added to Linezolid for coverage. Today pt was noted to have increased 02 requirements to the point that he needed a nonrebreather to maintain 02 saturations in the 90s. Code white was called. Despite pts DNAR/DNI status, he was transferred to the ICU for high flow 02 administration per family's request. Objective Data: Objective Information: Objective Information: T PRBPSpO2 [id number]/8092% Date/Time03/13 17: 18: 18: 18: 18:03 Range(36.6C - 37C ) (51 - 121 ) (16 - 22 ) (111 - 157 )/ (75 - 87 ) (87% - 97% ) As of 13-Mar-2018 17:46:00, patient is on 14 L/min of oxygen via nonrebreather mask. Highest temp of 37 C was recorded at 03/13 1:48 Physical Exam: Constitutional: Lying in bed appearing dyspneic Head/Neck: Craniectomy incision intact Respiratory/Thorax: Mildly labored breathing pattern. Breath sounds difficult to hear as he was unable to cooperate when asked to take deep breaths. Cardiovascular: Regular rhythm, but tachycardic. Normal S1/S2. No M/R/G noted. Gastrointestinal: abdomen soft and nontender; normoactive bowel sounds; PEG tube intact Extremities: No peripheral edema Neurological: Somnolent. He does awaken with deep sternal rub though. Unable to answer orientation questions. Skin: Warm and dry; no rashes or lesions Medications: Medications: Continuous Medications 1. Sodium Chloride 0.9% Infusion: 1000 mL IntraVenous <Continuous> Scheduled Medications 1. Acetylcysteine 20% Inhalation: 5 mL Inhalation Every 6 Hours 2. Albuterol 2.5 mg/ 3 mL Nebulizer Soln: 3 mL Inhalation Every 6 Hours 3. Atorvastatin: 40 mg Oral Daily 4. Budesonide 0.25 mg/ 2 mL Nebulizer Soln: 2 mL Inhalation Every 12 Hours 5. Docusate Oral Liquid: 100 mg Oral 2 Times a Day 6. Enoxaparin SubCutaneous: 40 mg SubCutaneous Every 24 Hours 7. Esomeprazole Oral Packet: 40 mg NasoGastric Tube 2 Times a Day 8. guaiFENesin Oral Liquid: 400 mg Oral Every 6 Hours 9. Insulin Glargine (Lantus) Injectable: 25 unit(s) SubCutaneous Daily Before First Meal 10. Insulin Lispro Moderate Corrective Scale: unit(s) SubCutaneous Every 6 Hours 11. Linezolid 600 mg IVPB/ Premixed Soln 300 mL: 300 mL IntraVenous Piggyback Every 12 Hours 12. Nicotine 14 mg/ 24 hour TransDermal: 1 patch TransDermal Every 24 Hours 13. Nystatin Oral Liquid: 774127 unit(s) Oral Every 6 Hours 14. Petrolatum Topical: 1 application(s) Topical 2 Times a Day 15. Piperacillin - Tazobactam 4.5 gram/Iso-osmotic 100 mL Premix IVPB: 100 mL IntraVenous Piggyback Every 6 Hours 16. Polyethylene Glycol: 17 gram(s) Oral Daily 17. Silodosin (NON - Formulary): 8 mg NasoGastric Tube Daily 18. Sodium Chloride 0.9% Injectable Flush: 10 mL IntraVenous Flush Every 12 Hours 19. Valproic Acid (Depakene) Oral Liquid: 250 mg PEG Tube Every 12 Hours PRN Medications 1. Acetaminophen: 650 mg Oral Every 6 Hours 2. Albuterol 2.5 mg/ 3 mL Nebulizer Soln: 3 mL Inhalation Every 2 Hours 3. Bisacodyl Rectal: 10 mg Rectal Daily 4. Dextrose 50% in Water Injectable: 25 gram(s) IntraVenous Push Every 15 Minutes 5. Fleet Adult (Sodium Phosphate) Rectal: 1 enema Rectal Daily 6. Glucagon Injectable: 1 mg IntraMuscular Every 15 Minutes 7. Heparin Flush 10 unit/ mL PF Injectable PRN: 5 mL IntraVenous Flush According to Flush Policy 8. hydrALAZINE Injectable: 10 mg IntraVenous Push Every 6 Hours 9. Lidocaine 1% Injectable (PICC KIT): 1 mL IntraDermal Once 10. Ondansetron Injectable: 4 mg IntraVenous Push Every 6 Hours 11. Polyethylene Glycol: 17 gram(s) Oral Daily Currently Suspended Medications 1. amLODIPine: 10 mg Oral Daily 2. Fluticasone 250 microgram -Salmeterol 50 microgram/ Inh: 1 inhalation Inhalation Every 12 Hours 3. hydroCHLOROthiazide: 25 mg Oral Daily 4. Insulin Glargine (Lantus) Injectable: 25 unit(s) SubCutaneous At Bedtime 5. Insulin Lispro (HumaLOG) Injectable: 5 unit(s) SubCutaneous Every 6 Hours 6. Lisinopril: 30 mg Oral Daily 7. oxyCODONE Immediate Release: 5 mg Oral Every 4 Hours 8. oxyCODONE Immediate Release: 10 mg Oral Every 4 Hours 9. Sennosides: 2 tablet(s) Oral Daily Recent Lab Results: Results: I have reviewed these laboratory results: Glucose_POCT Trending View [id number] 18:12:00 13-Mar-2018 15:56:00 13-Mar-2018 06:50:00 13-Mar-2018 01:15:00 [id number] 83 195 H 234 H Arterial Full Panel 13-Mar-2018 16:23:00 ResultValue pH, Arterial 7.47 H pCO2, Arterial 45 H pO2, Arterial 74 L Patient-Temperature 37.0 SO2, Arterial 97 HCT 42.0 Sodium-Level 138 Potassium-Level 4.5 Chloride-Level 107 Calcium, Ionized-Level 1.36 H Glucose-Level 77 Lactate-Level 1.5 Base Excess-Blood 8.0 H Bicarbonate, Calculated, Arterial 32.8 H HGB, Calculated 14.3 Anion Gap-Level 3 L Complete Blood Count + Differential 13-Mar-2018 09:17:00 ResultValue White Blood Cell Count 20.0 H Nucleated Erythrocyte Count 0.0 Red Blood Cell Count 4.78 HGB 13.6 HCT 44.5 MCV 93 MCHC 30.6 L PLT 350 RDW-CV 16.2 H Neutrophil % 74.7 Immature Granulocytes % 2.8 Lymphocyte % 10.9 Monocyte % 10.4 Eosinophil % 0.5 Basophil % 0.7 Neutrophil Count 14.98 H Lymphocyte Count 2.17 Monocyte Count 2.08 H Eosinophil Count 0.09 Basophil Count 0.13 H Renal Function Panel 13-Mar-2018 09:17:00 ResultValue Glucose, Serum 209 H NA 137 K 5.0 CL 98 Bicarbonate, Serum 28 Anion Gap, Serum 16 BUN 43 H CREAT 0.99 GFR-Non >60 GFR- >60 Calcium, Serum 9.7 Phosphorus, Serum 3.5 ALB 2.7 L Troponin I, Serum 13-Mar-2018 09:17:00 ResultValue Troponin I, Serum 0.12 H Radiology Results: Results: Impression: 1. No discrete filling defect to suggest pulmonary embolism to the segmental level. 2. Bronchial wall thickening and mucous secretions with near complete obliteration of left upper bronchus and more distal bronchi and resulting in complete collapse of left lung with significant volume loss. Subtle tree-in-bud opacities within right upper lobe are unchanged from prior. Correlate with concern for aspiration. 3. Focal area of decreased enhancement of the left lung parenchyma, concerning for focal infectious consolidation. 4. Small left pleural effusion again seen, slightly increased from prior. 5. Rest of stable chronic findings as above. 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 Angio Chest for PE [Mar 13 2018 10:19AM] Assessment and Plan: Impression and Plan 1-5: Assessment: This is a 67 year old male with history significant for HTN, type II DM, COPD, and meningioma s/p craniotomy with resection 2013 (done at [facility]) who was admitted for repeat surgical resection of meningioma as angiogram prior to admit had no targets for embolization. 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 Postoperative course complicated by dysphagia, brainstem infarction as well as hypoxia concerning for aspiration pneumonia necessitating transfer to ICU. Sputum grew MRSA. He ended up failing modified barium swallow by speech therapy. ENT was consulted and performed flexible laryngoscopy that noted generalized pharyngeal weakness with gross aspiration. GI was consulted and placed PEG tube on 02/21/18 with EGD at that time also noting grade D esophagitis. On 02/24/18 neurosurgery performed lumbar puncture that was unrevealing. Transferred from step down unit to regular nursing floor for further management by medicine service. Most recently noted to have increased [address] chest noting evidence of collapsed left lung as well as aspiration. Today pt was noted to have increased 02 requirements to the point that he needed a nonrebreather to maintain 02 saturations in the 90s. Code white was called. Despite pts DNAR/DNI status, he was transferred to the ICU for high flow 02 administration per family's request. in a shared visit with Dr. Cruz Left lung collapse/MRSA pneumonia: collapsed lung potentially secondary to mucous plugging in the setting of MRSA pneumonia. - pulmonology reconsulted and recommending aggressive chest physiotherapy; chest vest ordered - ID reconsulted - continue linezolid - added Zosyn - repeat sputum culture - check CBC daily - pulmonology considering bronchoscopy if he doesn't show improvement with chest physiotherapy - wean supplemental 02 as tolerated Sinus tachycardia: likely multifactorial in the setting of collapsed lung/infection. No PE was noted on CT scan. - telemetry monitoring Troponin elevation: troponin up to 0.12 this morning. Suspect demand ischemia in the setting of tachycardia and infection. Low suspicion for acute coronary syndrome. ECG with no significant ST or T wave changes. - continue to trend troponin levels - will consider cardiology consult if troponin becomes significantly elevated Encephalopathy: suspect etiology to be related to underlying pneumonia and overall compromised respiratory status. ABG was without evidence of significant C02 retention. - continue to monitor mentation for now Meningioma s/p retrosigmoid craniectomy with postop brainstem infarction: LP cultures from 02/24/18 negative so far. - follow up LP cultures - outpatient follow up with Dr. Cardoza in neurosurgery on 03/21/18 at 3:15 PM Superficial venous thrombosis: US from 03/06/18 noted an occlusive thrombosis of left basilic vein adjacent to midline catheter - no therapeutic anticoagulation needed for this - plan to remove midline at time of discharge Dysphagia s/p PEG tube placement: - NPO - hold tube feedings for now in light of aspiration noted on CT scan - continue gentle IV hydration - needs repeat modified barium swallow in 4-6 weeks (per verbal recommendations by speech therapy) Grade D esophagitis: - continue PPI BID x3 months - will need outpatient follow up in GI clinic in 3 months COPD: - hold Advair as he is unable to take this in current encephalopathic state; start inhaled budesonide in the interim - continue albuterol nebulizers - added acetylcysteine in light of potential mucous plugging HTN: BP controlled - hold all schedule antihypertensives for now - continue PRN hydralazine Type II DM: - continue Lantus 25 units in the morning; will hold evening Lantus since tube feeding are on hold - continue Lispro sliding scale with hypoglycemia protocol - will hold scheduled Lispro 5 units every 6 hours since tube feeding are on hold DVT prophylaxis: - enoxaparin Miscellaneous: - continue home valproic acid Code status: - DNAR/DNI Discharge disposition: - PT/OT recommending acute rehab - prior plans for discharge now on hold given his poor prognosis - updated nephew Donta and sister/POAugustina Prieto on transfer to ICU and overall declining condition Signature: Signature: Signature: Pager # Signature/Cosignature/Attestation: Attending Only - Shared Visit with Advanced Practice ProviderThis is a shared visit. I have reviewed the Advanced Practice Providers encounter note, approve the Advanced Practice Providers documentation, and provide the following additional information from my personal encounter. Comments/ Additional Findings Transferred to MICU. Electronic Signatures: Brooke Mullen ([employer]ORTEX OPERATOR-GROUP MANAGER) (Signed 13-Mar-2018 19:14) Authored: Subjective, Objective Data, Assessment and Plan, Signature, Signature/Cosignature/Attestation Emiliana Cruz) (Signed 14-Mar-2018 09:16) Authored: Signature/Cosignature/Attestation Co-Signer: Subjective, Objective Data, Assessment and Plan, Signature, Signature/Cosignature/Attestation Last Updated: 14-Mar-2018 09:16 by Emiliana Cruz) CLINICAL EVENT Observed: 03/13/2018 Status: UNK Source: [place] NOTE-MICU TRANSFER 6:41 PM HOSPITALS REPOSITORY Event: Topic: MICU Transfer Details: LUIS mason called for Hypoxia, noted to be desaturating down to 80's on 6L o2, also tried on ventimask and non rebreather. MICU fellow at the bedside Lethargic initially hard to arouse, later arousable, opened eyes, decreased respirations when lethargic, very weak cough reflex. Spoke to Donta, the nephew, discussed his clinical status, concern for worsening resp status, DNI status. Discussed with MICU, to be transferred to MICU for high flow Oxygen, cont bronchial hygiene. Provider / Team Contact Information: Provider/Team Contact Info-Pager Number: [phone] Electronic Signatures: Emiliana Cruz) (Signed 13-Mar-2018 18:44) Authored: Event, Provider / Team Contact Information Last Updated: 13-Mar-2018 18:44 by Emiliana Cruz) GLUCOSE-POCT Collected: 03/13/2018 Status: F Source: [place] 6:12 PM [facility] REPOSITORY TYPE CODE TESTS RESULT OUT OF RANGE REFERENCE UNITS LAB GLUP(LOINC) 74 - 99 mg/dL 98 GLUCOSE-POCT Performed By: #### GLUPO #### [facility] [address] [place] [address] TROPONIN I Collected: 03/13/2018 Status: F Source: [place] 5:56 PM [facility] REPOSITORY TYPE CODE TESTS RESULT OUT OF REFERENCE UNITS RANGE LAB TROP2(LOINC 0.00 - 0.03 ng/mL ) High TROPONIN I 0.11 Result Comment: LESS THAN 0.04 NG/ML: NEGATIVE REPEAT TESTING IN FOUR TO SIX HOURS IF CLINICALLY INDICATED. 0.04 - 0.5 NG/ML: CONSISTENT WITH POSSIBLE CARDIAC DAMAGE AND POSSIBLE INCREASED CLINICAL RISK. SERIAL MEASUREMENTS MAY HELP ASSESS EXTENT OF MYOCARDIAL DAMAGE. >0.5 NG/ML: CONSISTENT WITH CARDIAC DAMAGE, INCREASED CLINICAL RISK AND MYOCARDIAL INFARCTION. SERIAL MEASUREMENTS MAY HELP ASSESS EXTENT OF MYOCARDIAL DAMAGE. . Note: Troponin I testing is performed using different testing methodology at [facility] than at other [facility]. Direct result comparisons should only be made within the same method. . Patients receiving more than 5 mg/day of biotin may have interference in test results. A sample should be taken no sooner than eight hours after previous dose. Contact [phone] for additional information. Performed By: #### TROP2 #### [facility] [address] [place] [id number] ARTERIAL FULL PANEL Collected: 03/13/2018 Status: F Source: [place] 4:23 PM HOSPITALS REPOSITORY TYPE CODE TESTS RESULT OUT OF REFERENCE UNITS RANGE LAB PHART(LOIN 7.38 - 7.42 C) pH High 7.47 LAB PCO2A(LOIN 38 - 42 mmHg C) PCO2 High 45 LAB PO2A(LOINC 85 - 95 mmHg ) PO2 Low 74 LAB TEMP(LOINC degrees C ) PATIENT TEMPERATURE 37.0 Result Comment: NOTE: PATIENT RESULTS ARE NOT CORRECTED FOR TEMPERATURE. LAB SO2%A(LOINC) 94 - 100 % SO2 97 LAB HCTN(LOINC) 41.0 - % 52.0 HCT 42.0 LAB SODN(LOINC) 136 - 145 mmol/L SODIUM 138 LAB POTN(LOINC) 3.5 - 5.3 mmol/L POTASSIUM 4.5 LAB CHLN(LOINC) 98 - 107 mmol/L CHLORIDE 107 LAB IONCA(LOINC) 1.10 - mmol/L 1.33 High CALCIUM,IONIZED 1.36 LAB GLUN(LOINC) 74 - 99 mg/dL GLUCOSE 77 LAB LACTN(LOINC) 0.4 - 2.0 mmol/L LACTATE 1.5 LAB BSEXB(LOINC) -2.0 - 3.0 mmol/L BASE High EXCESS-BLOOD 8.0 LAB BICAR(LOINC) 22.0 - mmol/L 26.0 BICARB, High CALCULATED 32.8 LAB HGBNC(LOINC) 13.5 - g/dL 17.5 HGB,CALCULATED 14.3 LAB ANGPN(LOINC) 10 - 25 mmol/L Low ANION GAP 3 Performed By: #### AFPA3 #### [facility] [address] [place] [address] GLUCOSE-POCT Collected: 03/13/2018 Status: F Source: [place] 3:56 PM [facility]OS[facility]ITALS REPOSITORY TYPE CODE TESTS RESULT OUT OF RANGE REFERENCE UNITS LAB GLUP(LOINC) 74 - 99 mg/dL 83 GLUCOSE-POCT Performed By: #### GLUPO #### [facility] [address] [place] [address] Observed: 03/13/2018 Status: F Source: [place] RESPIRATORY 3:49 PM HOSPITALS REPOSITORY CULT./SM,LOWER PATIENT: DIPESH BERMUDEZ LOCATION: [facility] BILL#: [id number] : 54 AGE: SEX: M ORDERED BY: BROOKE MULLEN SOURCE: SPUTUM COLLECTED: 03/13/18 15:49 ANTIBIOTICS AT [facility].: RECEIVED : 03/13/18 17:46 SITE: R E S U L T S GRAM STAIN FINAL 03/14/18 01:13 THE GRAM STAIN INDICATES THAT THE SPECIMEN CONTAINS SIGNIFICANT SALIVARY CONTAMINATION. THE CULTURE WILL NOT BE PROCESSED IT WILL BE OF LIMITED DIAGNOSTIC VALUE.A SPECIMEN OF BETTER QUALITY SHOULD BE SUBMITTED IF CLINICALLY INDICATED. RESPIRATORY CULT./SM,LOWER CANCELLED 03/14/18 01:14 Performed By: #### RESPL #### [facility] [address] [place] [address] DAILY PROGRESS Observed: 03/13/2018 Status: COMPLETED Source: [place] NOTE-PULMONOLOGY 1:06 PM HOSPITALS REPOSITORY Service: Pulmonology Subjective Data: DIPESH BERMUDEZ is a 67 year old Male who is Hospital Day # 32 and POD #30 for left retrosigmoid craniotomy for tumor resection. Additional Information: Pulmonary called to re-evaluate patient again given possible necrotizing pneumonia. Patient well known as he has been admitted or followed by the consult, MICU, and stepdown unit teams. Briefly, he is a 67 yo M with hx of meningioma s/p craniotomy/resection (2013), HTN, DM, COPD, tobacco abuse, prior LLL lobectomy, and CYNTHIA who was admitted on 02/10 for repeat craniotomy of the infratentorial tumor with titanium mesh complicated by post-op brainstem infarction who additionally has had a complicated hospitalization. He has had multiple code whites called due to desaturation events, and there were concerns for aspiration pneumonia/pneumonitis near the beginning of his admission given significant dysphagia & multiple suspected aspiration events. On 02/17 he was started on Vanc/Cefepime/Azithro/Flagyl. Due to concerns regarding continued aspiration patient underwent PEG placement on 02/21. He completed a 7- day course of Cefepime. On 02/24, respiratory cultures were growing MRSA, so Vanc was re-started with a planned end date of 03/04 to treat MRSA pneumonia. He continued to have a leukocytosis, so ID was consulted on 03/04. Vanc was switched to Linezolid with planned end date of 03/13. Yesterday he was found to have worsening O2 saturation and tachycardia so CT chest was repeated which shows near complete left lung collapse with concerns for necrotizing pneumonia. Zosyn was added and Pulmonary re-consulted for assistance in management. Patient on examination today provides little contributory history. He appears comfortable breathing with 3L nasal oxygen. No signs or symptoms of respiratory distress. He is not able to provide a strong cough - his cough is very weak. Objective Data: Objective Information: T PRBPSpO2 [id number]/7996% Date/Time03/13 10: 10: 10: 10: 10:00 Range(36.3C - 37.1C ) (90 - 114 ) (18 - 20 ) (111 - 146 )/ (79 - 87 ) (90% - 96% ) As of 12-Mar-2018 14:20:00, patient is on 3 L/min of oxygen via nasal cannula. Highest temp of 37.1 C was recorded at 03/12 13:18 ---- Intake and Output ----- Mn/Dy/Year TimeIntakeOutputNet Mar 13, 2018 6:00 [id number] Mar 12, 2018 10:00 [id number] Mar 12, 2018 2:00 [id number] The Intake and Output Totals for the last 24 hours are: IntakeOutputNet 2240nullnull Physical Exam: Constitutional: Awake, alert, NAD Eyes: EOMI Head/Neck: Neck supple, normal ROM Respiratory/Thorax: Patient with very weak cough and weak inspiratory effort, no signs of respiratory distress, breath sounds are faint across the left lung field with rhonchi, better aeration right lung field but again with rhonchi Cardiovascular: RRR, normal S1/S2 Gastrointestinal: Soft, NT, ND Neurological: Alert, speech dysarthric/difficult to understand Psychological: Appropriate mood and behavior Skin: Warm and dry, no diaphoresis Medication: Medications: ANTI-INFECTIVES: 1. Nystatin Oral Liquid: 699075 unit(s) Oral Every 6 Hours 2. Vancomycin IV Piggy Back: 1.5 gram(s) IntraVenous Piggyback Every 12 Hours 3. Piperacillin - Tazobactam 4.5 gram/Iso-osmotic 100 mL Premix IVPB: 100 mL IntraVenous Piggyback Every 6 Hours CARDIOVASCULAR AGENTS: 1. Silodosin (NON - Formulary): 8 mg NasoGastric Tube Daily 2. hydrALAZINE Injectable: 10 mg IntraVenous Push Every 6 Hours PRN CENTRAL NERVOUS SYSTEM AGENTS: 1. Acetaminophen: 650 mg Oral Every 6 Hours PRN 2. Valproic Acid (Depakene) Oral Liquid: 250 mg PEG Tube Every 12 Hours 3. Ondansetron Injectable: 4 mg IntraVenous Push Every 6 Hours PRN COAGULATION MODIFIERS: 1. Enoxaparin SubCutaneous: 40 mg SubCutaneous Every 24 Hours 2. Heparin Flush 10 unit/ mL PF Injectable PRN: 5 mL IntraVenous Flush According to Flush Policy PRN GASTROINTESTINAL AGENTS: 1. Bisacodyl Rectal: 10 mg Rectal Daily PRN 2. Docusate Oral Liquid: 100 mg Oral 2 Times a Day 3. Fleet Adult (Sodium Phosphate) Rectal: 1 enema Rectal Daily PRN 4. Polyethylene Glycol: 17 gram(s) Oral Daily 5. Polyethylene Glycol: 17 gram(s) Oral Daily PRN 6. Esomeprazole Oral Packet: 40 mg NasoGastric Tube 2 Times a Day METABOLIC AGENTS: 1. Insulin Glargine (Lantus) Injectable: 25 unit(s) SubCutaneous Daily Before First Meal 2. Insulin Lispro Moderate Corrective Scale: unit(s) SubCutaneous Every 6 Hours 3. Atorvastatin: 40 mg Oral Daily 4. Dextrose 50% in Water Injectable: 25 gram(s) IntraVenous Push Every 15 Minutes PRN 5. Glucagon Injectable: 1 mg IntraMuscular Every 15 Minutes PRN MISCELLANEOUS AGENTS: 1. Lidocaine 1% Injectable (PICC KIT): 1 mL IntraDermal Once PRN 2. Nicotine 14 mg/ 24 hour TransDermal: 1 patch TransDermal Every 24 Hours NUTRITIONAL PRODUCTS: 1. Sodium Chloride 0.9% Infusion: 1000 mL IntraVenous <Continuous> 2. Sodium Chloride 0.9% Injectable Flush: 10 mL IntraVenous Flush Every 12 Hours RESPIRATORY AGENTS: 1. Albuterol 2.5 mg/ 3 mL Nebulizer Soln: 3 mL Inhalation Every 2 Hours PRN 2. Albuterol 2.5 mg/ 3 mL Nebulizer Soln: 3 mL Inhalation Every 6 Hours 3. Fluticasone 250 microgram -Salmeterol 50 microgram/ Inh: 1 inhalation Inhalation Every 12 Hours 4. guaiFENesin Oral Liquid: 400 mg Oral Every 6 Hours 5. Acetylcysteine 20% Inhalation: 5 mL Inhalation Every 6 Hours TOPICAL AGENTS: 1. Petrolatum Topical: 1 application(s) Topical 2 Times a Day Currently Suspended Medications 1. Lisinopril: 30 mg Oral Daily 2. amLODIPine: 10 mg Oral Daily 3. hydroCHLOROthiazide: 25 mg Oral Daily 4. oxyCODONE Immediate Release: 5 mg Oral Every 4 Hours PRN 5. oxyCODONE Immediate Release: 10 mg Oral Every 4 Hours PRN 6. Sennosides: 2 tablet(s) Oral Daily 7. Insulin Glargine (Lantus) Injectable: 25 unit(s) SubCutaneous At Bedtime 8. Insulin Lispro (HumaLOG) Injectable: 5 unit(s) SubCutaneous Every 6 Hours Recent Lab Results: Results: I have reviewed these laboratory results: Complete Blood Count + Differential 13-Mar-2018 09:17:00 ResultValue White Blood Cell Count 20.0 H Nucleated Erythrocyte Count 0.0 Red Blood Cell Count 4.78 HGB 13.6 HCT 44.5 MCV 93 MCHC 30.6 L PLT 350 RDW-CV 16.2 H Neutrophil % 74.7 Immature Granulocytes % 2.8 Lymphocyte % 10.9 Monocyte % 10.4 Eosinophil % 0.5 Basophil % 0.7 Neutrophil Count 14.98 H Lymphocyte Count 2.17 Monocyte Count 2.08 H Eosinophil Count 0.09 Basophil Count 0.13 H Renal Function Panel 13-Mar-2018 09:17:00 ResultValue Glucose, Serum 209 H NA 137 K 5.0 CL 98 Bicarbonate, Serum 28 Anion Gap, Serum 16 BUN 43 H CREAT 0.99 GFR-Non >60 GFR- >60 Calcium, Serum 9.7 Phosphorus, Serum 3.5 ALB 2.7 L Radiology Results: Results: Impression: 1. No discrete filling defect to suggest pulmonary embolism to the segmental level. 2. Bronchial wall thickening and mucous secretions with near complete obliteration of left upper bronchus and more distal bronchi and resulting in complete collapse of left lung with significant volume loss. Subtle tree-in-bud opacities within right upper lobe are unchanged from prior. Correlate with concern for aspiration. 3. Focal area of decreased enhancement of the left lung parenchyma, concerning for focal infectious consolidation. 4. Small left pleural effusion again seen, slightly increased from prior. 5. Rest of stable chronic findings as above. 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 Angio Chest for PE [Mar 13 2018 10:19AM] Assessment and Plan: Assessment: 67 yo M with history of meningioma s/p craniotomy/resection (2013), HTN, DM, COPD, tobacco abuse, prior LLL lobectomy, and CYNTHIA, admitted following repeat craniotomy, hospital course has been complex and complicated by multiple episodes of hypoxia and needed for intensive care. Patient was MRSA isolated from the sputum for which he has been receiving appropriate antibiotic therapy (vanc->linezolid). Pulmonary re-consulted due to repeat CT- PE which shows near complete left lung collapse (some air is still penetrating into the parenchyma) which is a significant change compared to prior CT chest on 03/04 at which point patient was adequately ventilating his entire left lung. Patient currently requiring 3L NC. #Acute respiratory failure/Hypoxia, etiology likely multifactorial secondary to all of the below #Left lung collapse likely related to significant bronchial secretions/debris in setting of known MRSA pneumonia #History of COPD (severity unknown given no PFT data), likely chronic bronchitis given bronchial thickening on CT scan #Heavy secretions with weak cough #Small left pleural effusion #Dysphagia/chronic aspiration s/p PEG tube #CYNTHIA not treated currently (patient non-adherent to home CPAP) #History of LLL lobectomy RECS: 1. Antibiotics per primary team and ID 2. Continue aggressive chest physiotherapy to promote bronchial clearance - please involve RT for EZ-PAP (if pt will cooperative), vest therapy, and/or IPV - MUST BE REGULARLY SCHEDULED 3. Continue bronchodilators - schedule Duo-Nebs, start albuterol nebs PRN, continue Advair 4. Wean FiO2 as tolerated 5. If no improvement with aggressive chest PT after 48-72 hrs, will consider bronchoscopy Will follow. Please page [phone] with questions. Patient seen, examined, and discussed with staff Dr. Ramirez. Recommendations discussed personally with the primary team. Signature/Cosignature/Attestation: Attending AttestationI saw and evaluated the patient. I personally obtained the gonzalez and critical portions of the history and physical exam or was physically present for gonzalez and critical portions performed by the resident/fellow. I reviewed the resident/fellows documentation and discussed the patient with the resident/fellow. I agree with the resident/fellows medical decision making as documented in the residents note. I personally evaluated the patient (as noted in the above attestation) on 13-Mar-2018 Electronic Signatures: Allan Babcock (Fellow)) (Signed 13-Mar-2018 13:39) Authored: Service, Subjective Data, Objective Data, Assessment and Plan, Signature/Cosignature/Attestation Shagufta Ramirez) (Signed 15-Mar-2018 14:41) Authored: Signature/Cosignature/Attestation Co-Signer: Service, Subjective Data, Objective Data, Assessment and Plan, Signature/Cosignature/Attestation Last Updated: 15-Mar-2018 14:41 by Shagufta Ramirez) DAILY PROGRESS Observed: 03/13/2018 Status: COMPLETED Source: [facility] NOTE-INFECTIOUS DISEASE 12:16 PM [facility] REPOSITORY Service: Infectious Disease Subjective Data: DIPESH BERMUDEZ is a 67 year old Male who is Hospital Day # 32 and POD #30 for left retrosigmoid craniotomy for tumor resection. Additional Information: ID was recalled to see the patient today due to possible necrotizing PNA and left lung collapse Briefly, he is a 67 male with hx of HTN, HLD, DM, COPD, CYNTHIA, meningioma s/p resection in 2013 who was admitted on 02/10 for repeat craniotomy of the infratentorial tumor with titanium mesh complicated by post op brainstem infarction who additionally has had a complicated hospitalization. He has had multiple code whites called due to desaturation, and there was concern for aspiration pneumonia/pneumonitis near the beginning of his admission. On 02/17 he was started on Vanco/Cefepime/Azithro/Flagyl. There was concern for continued aspiration, so PEG was placed on 02/21. He completed a 7 day course of Cefepime. On 02/24, respiratory cultures were growing MRSA, so Vanco was restarted with a planned end date of 03/04 to treat MRSA pneumonia. He continued to have a leukocytosis, so ID was consulted on 03/04. There was no new positive culture data, so we switched him from Vanco to Linezolid with planned end date of 03/13. Yesterday he was found to have worsening O2 saturation, so CT of the Chest was done and he was found to have left lung collapse with concern for necrotizing PNA. The team added Pip Tazo, d/c'd Linezolid, and restarted Vanco. He has remained afebrile. Pulmonary consult has also been requested. Objective Data: Objective Information: ---- Intake and Output ----- Mn/Dy/Year TimeIntakeOutputNet Mar 13, 2018 6:00 [id number] Mar 12, 2018 10:00 [id number] Mar 12, 2018 2:00 [id number] The Intake and Output Totals for the last 24 hours are: IntakeOutputNet 2240nullnull T PRBPSpO2 [id number]/7996% Date/Time03/13 10: 10: 10: 10: 10:00 Range(36.3C - 37.1C ) (90 - 114 ) (18 - 20 ) (111 - 146 )/ (79 - 87 ) (90% - 96% ) As of 12-Mar-2018 14:20:00, patient is on 3 L/min of oxygen via nasal cannula. Highest temp of 37.1 C was recorded at 03/12 13:18 Physical Exam: Constitutional: Lethargic but arousable with Tanner Armstrong breathing Eyes: PERRL Respiratory/Thorax: lungs with diminished breath sounds on the left side Cardiovascular: irregularly irregular, +S1/S2 Gastrointestinal: +BS, soft, PEG Extremities: no peripheral edema, LUE midline Neurological: lethargic Skin: PEG site c/d/i Medication: Medications: ANTI-INFECTIVES: 1. Nystatin Oral Liquid: [id number] unit(s) Oral Every 6 Hours 2. Vancomycin IV Piggy Back: 1.5 gram(s) IntraVenous Piggyback Every 12 Hours 3. Piperacillin - Tazobactam 4.5 gram/Iso-osmotic 100 mL Premix IVPB: 100 mL IntraVenous Piggyback Every 6 Hours CARDIOVASCULAR AGENTS: 1. Silodosin (NON - Formulary): 8 mg NasoGastric Tube Daily 2. hydrALAZINE Injectable: 10 mg IntraVenous Push Every 6 Hours PRN CENTRAL NERVOUS SYSTEM AGENTS: 1. Acetaminophen: 650 mg Oral Every 6 Hours PRN 2. Valproic Acid (Depakene) Oral Liquid: 250 mg PEG Tube Every 12 Hours 3. Ondansetron Injectable: 4 mg IntraVenous Push Every 6 Hours PRN COAGULATION MODIFIERS: 1. Enoxaparin SubCutaneous: 40 mg SubCutaneous Every 24 Hours 2. Heparin Flush 10 unit/ mL PF Injectable PRN: 5 mL IntraVenous Flush According to Flush Policy PRN GASTROINTESTINAL AGENTS: 1. Bisacodyl Rectal: 10 mg Rectal Daily PRN 2. Docusate Oral Liquid: 100 mg Oral 2 Times a Day 3. Fleet Adult (Sodium Phosphate) Rectal: 1 enema Rectal Daily PRN 4. Polyethylene Glycol: 17 gram(s) Oral Daily 5. Polyethylene Glycol: 17 gram(s) Oral Daily PRN 6. Esomeprazole Oral Packet: 40 mg NasoGastric Tube 2 Times a Day METABOLIC AGENTS: 1. Insulin Glargine (Lantus) Injectable: 25 unit(s) SubCutaneous Daily Before First Meal 2. Insulin Lispro Moderate Corrective Scale: unit(s) SubCutaneous Every 6 Hours 3. Atorvastatin: 40 mg Oral Daily 4. Dextrose 50% in Water Injectable: 25 gram(s) IntraVenous Push Every 15 Minutes PRN 5. Glucagon Injectable: 1 mg IntraMuscular Every 15 Minutes PRN MISCELLANEOUS AGENTS: 1. Lidocaine 1% Injectable (PICC KIT): 1 mL IntraDermal Once PRN 2. Nicotine 14 mg/ 24 hour TransDermal: 1 patch TransDermal Every 24 Hours NUTRITIONAL PRODUCTS: 1. Sodium Chloride 0.9% Infusion: 1000 mL IntraVenous <Continuous> 2. Sodium Chloride 0.9% Injectable Flush: 10 mL IntraVenous Flush Every 12 Hours RESPIRATORY AGENTS: 1. Albuterol 2.5 mg/ 3 mL Nebulizer Soln: 3 mL Inhalation Every 2 Hours PRN 2. Albuterol 2.5 mg/ 3 mL Nebulizer Soln: 3 mL Inhalation Every 6 Hours 3. Fluticasone 250 microgram -Salmeterol 50 microgram/ Inh: 1 inhalation Inhalation Every 12 Hours 4. guaiFENesin Oral Liquid: 400 mg Oral Every 6 Hours 5. Acetylcysteine 20% Inhalation: 5 mL Inhalation Every 6 Hours TOPICAL AGENTS: 1. Petrolatum Topical: 1 application(s) Topical 2 Times a Day Currently Suspended Medications 1. Lisinopril: 30 mg Oral Daily 2. amLODIPine: 10 mg Oral Daily 3. hydroCHLOROthiazide: 25 mg Oral Daily 4. oxyCODONE Immediate Release: 5 mg Oral Every 4 Hours PRN 5. oxyCODONE Immediate Release: 10 mg Oral Every 4 Hours PRN 6. Sennosides: 2 tablet(s) Oral Daily 7. Insulin Glargine (Lantus) Injectable: 25 unit(s) SubCutaneous At Bedtime 8. Insulin Lispro (HumaLOG) Injectable: 5 unit(s) SubCutaneous Every 6 Hours Recent Lab Results: Results: I have reviewed these laboratory results: Complete Blood Count + Differential 13-Mar-2018 09:17:00 ResultValue White Blood Cell Count 20.0 H Nucleated Erythrocyte Count 0.0 Red Blood Cell Count 4.78 HGB 13.6 HCT 44.5 MCV 93 MCHC 30.6 L PLT 350 RDW-CV 16.2 H Neutrophil % 74.7 Immature Granulocytes % 2.8 Lymphocyte % 10.9 Monocyte % 10.4 Eosinophil % 0.5 Basophil % 0.7 Neutrophil Count 14.98 H Lymphocyte Count 2.17 Monocyte Count 2.08 H Eosinophil Count 0.09 Basophil Count 0.13 H Renal Function Panel 13-Mar-2018 09:17:00 ResultValue Glucose, Serum 209 H NA 137 K 5.0 CL 98 Bicarbonate, Serum 28 Anion Gap, Serum 16 BUN 43 H CREAT 0.99 GFR-Non >60 GFR- >60 Calcium, Serum 9.7 Phosphorus, Serum 3.5 ALB 2.7 L Radiology Results: Results: CT Angio Chest for PE [Mar 13 2018 10:19AM] CT Angio Chest for PE [Mar 13 2018 12:39AM] Assessment and Plan: Assessment: ID was recalled to see the patient today due to possible necrotizing PNA with left lung collapse. 67 male with hx of HTN, HLD, DM, COPD, CYNTHIA, meningioma s/p resection in 2013 who was admitted on 02/10 for repeat craniotomy of the infratentorial tumor with titanium mesh complicated by post op brainstem infarction who additionally has had a complicated hospitalization. He has had multiple code whites called due to desaturation, and there was concern for aspiration pneumonia/pneumonitis near the beginning of his admission. On 02/17 he was started on Vanco/Cefepime/Azithro/Flagyl. There was concern for continued aspiration, so PEG was placed on 02/21. He completed a 7 day course of Cefepime. On 02/24, respiratory cultures were growing MRSA, so Vanco was restarted with a planned end date of 03/04 to treat MRSA pneumonia. He continued to have a leukocytosis, so ID was consulted on 03/04. There was no new positive culture data, so we switched him from Vanco to Linezolid with planned end date of 03/13. Yesterday he was found to have worsening O2 saturation, so CT of the Chest was done and he was found to have left lung collapse with concern for necrotizing PNA. The team added Pip Tazo, and restarted Vanco, but d/c Linezolid. Microbiology: 02/24 Resp Cx: MRSA Antibiotics: Vanco 02/24-03/04, restarted 03/13 Linezolid 600 q12 hours 03/04- Pip Tazo 4.5 q6 hours (start 03/13) A/P: 1. Left lung collapse -likely secondary to mucus plugging 2. Hx of MRSA pneumonia 3. meningioma s/p resections in 2013 with repeat crani on 02/11 Recommendations: -D/C Vanco and restart Linezolid 600mg IV q12 hours -Pulm follow for the collapsed left lung--possible bronch, chest PT for now -Ok to continue Pip Tazo All findings discussed with the attending, Dr Thelma Friend ID fellow Team [id number] Signature/Cosignature/Attestation: Attending AttestationI saw and evaluated the patient. I personally obtained the gonzalez and critical portions of the history and physical exam or was physically present for gonzalez and critical portions performed by the resident/fellow. I reviewed the resident/fellows documentation and discussed the patient with the resident/fellow. I agree with the resident/fellows medical decision making as documented in the resident/fellows note with the exception/addition of the following: I personally evaluated the patient (as noted in the above attestation) on 13-Mar-2018 Comments/ Additional Findings We personally reviewed the images from his CT scan of his chest. His left lung is fully collapsed. The concern for an necrotizing pneumonia due to gas bubbles his [place] the presence of air in his bronchial tree. He has full lung collapse, most likely due to mucous plugging of his airways. He is barely responsive during rounds and has obvious Tanner-Armstrong respirations with periods of apnea. During the apneic spells, he had oxygen desaturations into the low 80%'s He would benefit from aggressive pulmonary toilet. Recent his appearance, I would not be surprised if he ends up in the intensive care unit at some point soon for further respiratory management. Antibiotics as recommended above. Electronic Signatures: Lisette FriendDO (Fellow)) (Signed 13-Mar-2018 16:08) Authored: Service, Subjective Data, Objective Data, Assessment and Plan, Signature/Cosignature/Attestation Teja Renee) (Signed 15-Mar-2018 00:11) Authored: Signature/Cosignature/Attestation Co-Signer: Signature/Cosignature/Attestation Last Updated: 15-Mar-2018 00:11 by Teja Renee) DAILY PROGRESS Observed: 03/13/2018 Status: COMPLETED Source: [facility] NOTE-MEDICINE 11:06 AM [facility] REPOSIT[facility] Service: Medicine Subjective Data: DIPESH BERMUDEZ is a 67 year old Male who is Hospital Day # 32 and POD #30 for left retrosigmoid craniotomy for tumor resection. Not responding to verbal commands this morning. Objective Data: Objective Information: Moshe PRBPSpO2 [id number]/[id number]% Date/Time03/13 13: 13: 13: 13: 13:50 Range(36.3C - 37C ) (90 - 114 ) (18 - 20 ) (111 - 146 )/ (79 - 87 ) (90% - 97% ) Highest temp of 37 C was recorded at 03/13 1:48 Physical Exam: Constitutional: Lying in bed appearing mildly dyspneic Eyes: Clear sclera. Head/Neck: Craniectomy incision intact. Respiratory/Thorax: Mildly labored breathing pattern. Breath sounds difficult to hear as he was unable to cooperate when asked to take deep breaths. Cardiovascular: Regular rhythm, but tachycardic. Normal S1/S2. No M/R/G noted. Gastrointestinal: Abdomen soft and nontender. +BS noted. PEG tube intact. Musculoskeletal: Right sided weakness. Extremities: No peripheral edema Neurological: Somnolent. He does awaken with deep sternal rub though. Unable to answer orientation questions. Skin: Warm and dry; no rashes or lesions Medication: Medications: Continuous Medications 1. Sodium Chloride 0.9% Infusion: 1000 mL IntraVenous <Continuous> Scheduled Medications 1. Acetylcysteine 20% Inhalation: 5 mL Inhalation Every 6 Hours 2. Albuterol 2.5 mg/ 3 mL Nebulizer Soln: 3 mL Inhalation Every 6 Hours 3. Atorvastatin: 40 mg Oral Daily 4. Budesonide 0.25 mg/ 2 mL Nebulizer Soln: 2 mL Inhalation Every 12 Hours 5. Docusate Oral Liquid: 100 mg Oral 2 Times a Day 6. Enoxaparin SubCutaneous: 40 mg SubCutaneous Every 24 Hours 7. Esomeprazole Oral Packet: 40 mg NasoGastric Tube 2 Times a Day 8. guaiFENesin Oral Liquid: 400 mg Oral Every 6 Hours 9. Insulin Glargine (Lantus) Injectable: 25 unit(s) SubCutaneous Daily Before First Meal 10. Insulin Lispro Moderate Corrective Scale: unit(s) SubCutaneous Every 6 Hours 11. Linezolid 600 mg IVPB/ Premixed Soln 300 mL: 300 mL IntraVenous Piggyback Every 12 Hours 12. Nicotine 14 mg/ 24 hour TransDermal: 1 patch TransDermal Every 24 Hours 13. Nystatin Oral Liquid: 231915 unit(s) Oral Every 6 Hours 14. Petrolatum Topical: 1 application(s) Topical 2 Times a Day 15. Piperacillin - Tazobactam 4.5 gram/Iso-osmotic 100 mL Premix IVPB: 100 mL IntraVenous Piggyback Every 6 Hours 16. Polyethylene Glycol: 17 gram(s) Oral Daily 17. Silodosin (NON - Formulary): 8 mg NasoGastric Tube Daily 18. Sodium Chloride 0.9% Injectable Flush: 10 mL IntraVenous Flush Every 12 Hours 19. Valproic Acid (Depakene) Oral Liquid: 250 mg PEG Tube Every 12 Hours PRN Medications 1. Acetaminophen: 650 mg Oral Every 6 Hours 2. Albuterol 2.5 mg/ 3 mL Nebulizer Soln: 3 mL Inhalation Every 2 Hours 3. Bisacodyl Rectal: 10 mg Rectal Daily 4. Dextrose 50% in Water Injectable: 25 gram(s) IntraVenous Push Every 15 Minutes 5. Fleet Adult (Sodium Phosphate) Rectal: 1 enema Rectal Daily 6. Glucagon Injectable: 1 mg IntraMuscular Every 15 Minutes 7. Heparin Flush 10 unit/ mL PF Injectable PRN: 5 mL IntraVenous Flush According to Flush Policy 8. hydrALAZINE Injectable: 10 mg IntraVenous Push Every 6 Hours 9. Lidocaine 1% Injectable (PICC KIT): 1 mL IntraDermal Once 10. Ondansetron Injectable: 4 mg IntraVenous Push Every 6 Hours 11. Polyethylene Glycol: 17 gram(s) Oral Daily Currently Suspended Medications 1. amLODIPine: 10 mg Oral Daily 2. Fluticasone 250 microgram -Salmeterol 50 microgram/ Inh: 1 inhalation Inhalation Every 12 Hours 3. hydroCHLOROthiazide: 25 mg Oral Daily 4. Insulin Glargine (Lantus) Injectable: 25 unit(s) SubCutaneous At Bedtime 5. Insulin Lispro (HumaLOG) Injectable: 5 unit(s) SubCutaneous Every 6 Hours 6. Lisinopril: 30 mg Oral Daily 7. oxyCODONE Immediate Release: 5 mg Oral Every 4 Hours 8. oxyCODONE Immediate Release: 10 mg Oral Every 4 Hours 9. Sennosides: 2 tablet(s) Oral Daily Recent Lab Results: Results: I have reviewed these laboratory results: Complete Blood Count + Differential 13-Mar-2018 09:17:00 ResultValue White Blood Cell Count 20.0 H Nucleated Erythrocyte Count 0.0 Red Blood Cell Count 4.78 HGB 13.6 HCT 44.5 MCV 93 MCHC 30.6 L PLT 350 RDW-CV 16.2 H Neutrophil % 74.7 Immature Granulocytes % 2.8 Lymphocyte % 10.9 Monocyte % 10.4 Eosinophil % 0.5 Basophil % 0.7 Neutrophil Count 14.98 H Lymphocyte Count 2.17 Monocyte Count 2.08 H Eosinophil Count 0.09 Basophil Count 0.13 H Renal Function Panel 13-Mar-2018 09:17:00 ResultValue Glucose, Serum 209 H NA 137 K 5.0 CL 98 Bicarbonate, Serum 28 Anion Gap, Serum 16 BUN 43 H CREAT 0.99 GFR-Non >60 GFR- >60 Calcium, Serum 9.7 Phosphorus, Serum 3.5 ALB 2.7 L Troponin I, Serum 13-Mar-2018 09:17:00 ResultValue Troponin I, Serum 0.12 H Glucose_POCT Trending View [id number] 06:50:00 13-Mar-2018 01:15:00 [id number] H 234 H Radiology Results: Results: Impression: 1. No discrete filling defect to suggest pulmonary embolism to the segmental level. 2. Bronchial wall thickening and mucous secretions with near complete obliteration of left upper bronchus and more distal bronchi and resulting in complete collapse of left lung with significant volume loss. Subtle tree-in-bud opacities within right upper lobe are unchanged from prior. Correlate with concern for aspiration. 3. Focal area of decreased enhancement of the left lung parenchyma, concerning for focal infectious consolidation. 4. Small left pleural effusion again seen, slightly increased from prior. 5. Rest of stable chronic findings as above. Above findings was discussed with the team HANDLE SANDER OPERATOR Jim by surgeon/president at 12:[address] Angio Chest for PE [Mar 13 2018 10:19AM] Assessment and Plan: Assessment: This is a pleasant 67 year old male with history significant for HTN, type II DM, COPD, and meningioma s/p craniotomy with resection 2013 (done at [facility]) who was admitted for repeat surgical resection of meningioma as angiogram prior to admit had no targets for embolization. 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 Postoperative course complicated by dysphagia, brainstem infarction as well as hypoxia concerning for aspiration pneumonia necessitating transfer to ICU. Sputum grew MRSA. He ended up failing modified barium swallow by speech therapy. ENT was consulted and performed flexible laryngoscopy that noted generalized pharyngeal weakness with gross aspiration. GI was consulted and placed PEG tube on 02/21/18 with EGD at that time also noting grade D esophagitis. On 02/24/18 neurosurgery performed lumbar puncture that was unrevealing. Transferred from step down unit to regular nursing floor for further management by medicine service. Most recently noted to have increased [address] chest noting evidence of collapsed left lung as well as aspiration. in a shared visit with Dr. Cruz Left lung collapse/MRSA pneumonia: collapsed lung potentially secondary to mucous plugging in the setting of MRSA pneumonia. - pulmonology reconsulted and recommending aggressive chest physiotherapy; chest vest ordered - ID reconsulted - continue linezolid - added Zosyn - repeat sputum culture - check CBC daily - pulmonology considering bronchoscopy if he doesn't show improvement with chest physiotherapy - wean supplemental 02 as tolerated Sinus tachycardia: likely multifactorial in the setting of collapsed lung/infection. No PE was noted on CT scan. - telemetry monitoring Troponin elevation: troponin up to 0.12 this morning. Suspect demand ischemia in the setting of tachycardia and infection. Low suspicion for acute coronary syndrome. ECG with no significant ST or T wave changes. - continue to trend troponin levels - will consider cardiology consult if troponin becomes significantly elevated Encephalopathy: suspect etiology to be related to underlying pneumonia and overall compromised respiratory status. ABG was without evidence of significant C02 retention. - continue to monitor mentation for now Meningioma s/p retrosigmoid craniectomy with postop brainstem infarction: LP cultures from 02/24/18 negative so far. - follow up LP cultures - outpatient follow up with Dr. Cardoza in neurosurgery on 03/21/18 at 3:15 PM Superficial venous thrombosis: US from 03/06/18 noted an occlusive thrombosis of left basilic vein adjacent to midline catheter - no therapeutic anticoagulation needed for this - plan to remove midline at time of discharge Dysphagia s/p PEG tube placement: - NPO - hold tube feedings for now in light of aspiration noted on CT scan - start gentle IV hydration - needs repeat modified barium swallow in 4-6 weeks (per verbal recommendations by speech therapy) Grade D esophagitis: - continue PPI BID x3 months - will need outpatient follow up in GI clinic in 3 months COPD: - hold Advair as he is unable to take this in light of encephalopathic state; start inhaled budesonide in the interim - continue albuterol nebulizers - added acetylcysteine in light of potential mucous plugging HTN: BP controlled - hold all schedule antihypertensives for now - continue PRN hydralazine Type II DM: - continue Lantus 25 units in the morning; will hold evening Lantus since tube feeding are on hold - continue Lispro sliding scale with hypoglycemia protocol - will hold scheduled Lispro 5 units every 6 hours since tube feeding are on hold DVT prophylaxis: - enoxaparin Miscellaneous: - continue home valproic acid Code status: - DNAR/DNI Discharge disposition: - PT/OT recommending acute rehab - do not anticipate discharge until sometime later next week in light of multiple active problems - social work assisting with placement - updated nephew Donta and sister/POA Isha on plan of care extensively at the bedside Signature/Cosignature/Attestation: Attending Only - Shared Visit with Advanced Practice ProviderThis is a shared visit. I have reviewed the Advanced Practice Providers encounter note, approve the Advanced Practice Providers documentation, and provide the following additional information from my personal encounter. Comments/ Additional Findings Seen at the bedside. Overnight events noted. CT chest results noted, left lung collapse, tube feeds held, started on IVF, abx coverage broadened. Lethargic, arousable, but not able to follow commands. Vitals noted, tachycardic, o2 sat 94 on 4L O2, NC On exam, appears tachypneic, deviation of mouth noted lungs with decreased air left lung, Irregular tachycardic heart rate, unable to hear any murmurs. soft, +peg in place, area clean and dry, BS+ No pedal edema, palpable pulses. Labs noted. Leukocytosis + up to 20 Cr stable. Telemetry reviewed, tachycardic CT chest films reviewed, completed white out of the left lung on imaging technologist film, also concern for worsening consolidation/ bronchiolitis. Plan Left lung collapse, acute resp failure, hypoxic, likely due to mucus ;plugging Also with worsening consolidation/ PNA/ Bronchiolitis aggressive bronchial hygiene, EZ PAP, Chest VEST three times a day Mucomyst/ Aerosol nebs, O2 as needed, maintain o2 sat at >925 pulm input, Bronch for airway clearance. Tachycardia, likely due to hypoxia Troponin leak, type 2, demand ischemia from Tachycardia/ hypoxia/ pneumonia Cont Zosyn, changed to Vanc, discussed with ID, reconsulted, changed back to Linezolid IV Sputum c/s, hold PEG tube feeds, >component of Aspiration IVF for hydration. s/p Craniectomy, CVA Suture well healed, boggy, but no tenderness, clean and dry Dysphagia, s/p PEG Follow up with NSGY outpatient. DM type 2, Hold evening Lantus dose NPO, once daily, half dose Accucheck DNAR/ DNI, but family ok with higher level care, MICU/ Step Down, NIPPV if needed Low threshold to transfer to MICU. Had extensive discussion with nephbibiana Macias, at the bedside earlier today. Was very upset about multiple events that transpired since earlier this admission, also with other teams involved in his care earlier, concerned about lack of communication. Explained that overnight, the covering HANDLE SANDER OPERATOR was willing to give him a call back, but he preferred to speak with an MD only. Noted to be tachycardic, felt to be Sinus tachy with PAC's, EKG and Tele reviewed by EP< nephew informed about the same, when he questioned about A fib diagnosis. Explained the course of events past 24 hours, clinical picture, reviewed the CT films with him, also the labs and the plan to broaden the abx coverage, ID and Pulm input. Conservative treatment plan for the LL collapse, concern for persistent Asp/ difficult airway clearance, given his CVA. Troponin added, as per his request, explained to him, the possibility of it being elevated, type 2 ND, demand ischemia from Tachycardia. Will trend as needed. Prognosis: Guarded, given multiple comorbidities. Spent over 120mins of time with this patient. Electronic Signatures: Brooke Mullen (VORTEX OPERATOR-GROUP MANAGER) (Signed 13-Mar-2018 17:02) Authored: Service, Subjective Data, Objective Data, Assessment and Plan, Signature/Cosignature/Attestation Emiliana Cruz) (Signed 13-Mar-2018 17:44) Authored: Signature/Cosignature/Attestation Co-Signer: Subjective Data, Objective Data, Assessment and Plan, Signature/Cosignature/Attestation Last Updated: 13-Mar-2018 17:44 by Emiliana Cruz) MURRAY PEÑA Collected: 03/13/2018 Status: F Source: [facility] 10:49 AM HOSPITALS REPOSITORY TYPE CODE TESTS RESULT OUT OF REFERENCE UNITS RANGE LAB EMRAC(LOIN C) ADDON CONFIRMATION REQUEST REC'D Performed By: #### EMRAD #### NO LOCATION NEEDED CBC AND DIFFERENTIAL Collected: 03/13/2018 Status: F Source: [facility] 9:17 AM [facility]OSPITALS REPOSITORY TYPE CODE TESTS RESULT OUT OF REFERENCE UNITS RANGE LAB WBCR(LOINC 4.4 - 11.3 x10E9/L ) WBC High 20.0 LAB NRBC(LOINC 0.0-0.0 /100 WBC ) NUCLEATED RBC 0.0 LAB RBCCT(LOIN 4.50 - 5.90 x10E12/L C) RBC 4.78 LAB HGB(LOINC) 13.5 - 17.5 g/dL HGB 13.6 LAB HCT(LOINC) 41.0 - 52.0 % HCT 44.5 LAB MCV(LOINC) 80 - 100 fL MCV 93 LAB MCHC2(LOIN 32.0 - 36.0 g/dL C) Low MCHC 30.6 LAB PLTCT(LOIN 150 - 450 x10E9/L C) PLT 350 LAB RDWCV(LOIN 11.5 - 14.5 % C) RDW-CV High 16.2 LAB NEUT(LOINC 40.0 - 80.0 % ) % NEUTROPHIL 74.7 LAB IG(LOINC) 0.0 - 0.9 % % AUTOMATED 2.8 IMMATURE GRAN Result Comment: Percent differential counts (%) should be interpreted in the context of the absolute cell counts (cells/L). LAB LYMPH(LOINC) 13.0 - % 44.0 % LYMPHOCYTE 10.9 LAB MONO(LOINC) 2.0 - 10.0 % % MONOCYTE 10.4 LAB EOS(LOINC) 0.0 - 6.0 % % EOSINOPHIL 0.5 LAB BASO(LOINC) 0.0 - 2.0 % % BASOPHIL 0.7 LAB #NEUT(LOINC) 1.20 - x10E9/L 7.70 NEUTROPHIL High 14.98 LAB #LYMP(LOINC) 1.20 - x10E9/L 4.80 LYMPHOCYTE 2.17 LAB #MONO(LOINC) 0.10 - x10E9/L 1.00 MONOCYTE High 2.08 LAB #EOS(LOINC) 0.00 - x10E9/L 0.70 EOSINOPHIL 0.09 LAB #BASO(LOINC) 0.00 - x10E9/L 0.10 BASOPHIL High 0.13 Performed By: #### CBCDF #### [facility] [address] [place] [address] RENAL FUNCTION PANEL Collected: 03/13/2018 Status: F Source: [facility] 9:17 AM [facility]OSPITALS REPOSITORY TYPE CODE TESTS RESULT OUT OF REFERENCE UNITS RANGE LAB GLU(LOINC) 74 - 99 mg/dL GLUCOSE High 209 LAB SOD(LOINC) 136 - 145 mmol/L SODIUM 137 LAB K(LOINC) 3.5 - 5.3 mmol/L POTASSIUM 5.0 LAB CHLOR(LOIN 98 - 107 mmol/L C) CHLORIDE 98 LAB BIC(LOINC) 21 - 32 mmol/L BICARBONATE 28 LAB ANGAP(LOIN 10 - 20 mmol/L C) ANION GAP 16 LAB UREA(LOINC 6 - 23 mg/dL ) UREA High NITROGEN 43 LAB CREA(LOINC 0.50 - 1.30 mg/dL ) CREATININE 0.99 LAB GFRFN(LOIN >60 mL/min/1.7 C) 3m2 GFR-NON AM. >60 LAB GFRAA(LOIN >60 mL/min/1.7 C) 3m2 GFR- AM. >60 Result Comment: CALCULATIONS OF ESTIMATED GFR ARE PERFORMED USING THE MDRD STUDY EQUATION FOR THE IDMS-TRACEABLE CREATININE METHODS. CLIN CHEM 2007;53:766-72 LAB CA(LOINC) 8.6 - 10.6 mg/dL CALCIUM 9.7 LAB PHOS(LOINC) 2.5 - 4.9 mg/dL PHOSPHORUS 3.5 Result Comment: The performance characteristics of phosphorus testing in heparinized plasma have been validated by the individual laboratory site where testing is performed. Testing on heparinized plasma is not approved by the FDA; however, such approval is not necessary. LAB ALB(LOINC) 3.4 - 5.0 g/dL Low ALBUMIN 2.7 Performed By: #### RENAL #### [facility] [address] [place] [address] TROPONIN I Collected: 03/13/2018 Status: F Source: [facility] 9:17 AM [facility]OSPITALS REPOSITORY TYPE CODE TESTS RESULT OUT OF REFERENCE UNITS RANGE LAB TROP2(LOINC 0.00 - 0.03 ng/mL ) High TROPONIN I 0.12 Result Comment: LESS THAN 0.04 NG/ML: NEGATIVE REPEAT TESTING IN FOUR TO SIX HOURS IF CLINICALLY INDICATED. 0.04 - 0.5 NG/ML: CONSISTENT WITH POSSIBLE CARDIAC DAMAGE AND POSSIBLE INCREASED CLINICAL RISK. SERIAL MEASUREMENTS MAY HELP ASSESS EXTENT OF MYOCARDIAL DAMAGE. >0.5 NG/ML: CONSISTENT WITH CARDIAC DAMAGE, INCREASED CLINICAL RISK AND MYOCARDIAL INFARCTION. SERIAL MEASUREMENTS MAY HELP ASSESS EXTENT OF MYOCARDIAL DAMAGE. . Note: Troponin I testing is performed using different testing methodology at [facility] than at other [facility]. Direct result comparisons should only be made within the same method. . Patients receiving more than 5 mg/day of biotin may have interference in test results. A sample should be taken no sooner than eight hours after previous dose. Contact [phone] for additional information. Performed By: #### TROP2 #### [facility] [address] [place] [address] GLUCOSE-POCT Collected: 03/13/2018 Status: F Source: [facility] 6:50 AM [facility] REPOSITORY TYPE CODE TESTS RESULT OUT OF RANGE REFERENCE UNITS LAB GLUP(LOINC) 74 - 99 mg/dL High 195 GLUCOSE-POCT Performed By: #### GLUPO #### [facility] [address] [place] [address] CLINICAL EVENT Observed: 03/13/2018 Status: UNK Source: [facility] NOTE-LEFT LUNG COLLAPSE 6:02 AM HOSPITALS REPOSITORY / C/F NECROTIZING PNE Event: Topic: Left lung collapse / c/f necrotizing pneumonia Details: Called by radiology at [address] PE study was negative for PE however showing complete LLL collapse with consolidation and volume loss, resulting in mediastinal shift.; decreased enhancement in parenchyma and air foci in apex c/f necrotizing pneumonia. Pt has been afebrile. Previous VS 36.6 - 90 - 18 - 140/88 - 91% 3L. at 0148 VS 37 - 111 -20 -111/85 - 92% onO2 increased to 4L. Ordered EZ pap, albuterol tx, mucomyst tx (in case d/t plug), RT consult; changed linezolid to IV (has been receiving since 03/07) and started zosyn 4.5 gram every 6 hours. Mucous secretion seen on CT left upper bronchus c/f aspiration so TF on hold; started D5NS as pt received long acting insulin. on exam pt stating no more but then opened eyes slightly (per RT was not wanting resp treatment and she had just left room) and cooperated with exam. on exam heart with irregular beats, rate approx 110 bpm; lungs with scattered faint rhonchi on right, decreased sounds on left. resp non labored. per RT pt refused treatment at 0700. Nephbibiana Macias called RN in evening wanting to speak with team (however I was unable to call back immediately). He then called back within the hour, stating he wanted to speak with attending and told RN that he did NOT want ot speak with HANDLE SANDER OPERATOR. RN paged [facility]. will ask team to update today. Provider / Team Contact Information: Provider/Team Contact Info-Pager Number: [phone] Electronic Signatures: Lavon Pedro (VORTEX OPERATOR-GROUP MANAGER) (Signed 13-Mar-2018 07:15) Authored: Event, Provider / Team Contact Information Last Updated: 13-Mar-2018 07:15 by Lavon Pedro (VORTEX OPERATOR-GROUP MANAGER) GLUCOSE-POCT Collected: 03/13/2018 Status: F Source: [facility] 1:15 AM [facility]OSPITALS REPOSITORY TYPE CODE TESTS RESULT OUT OF RANGE REFERENCE UNITS LAB GLUP(LOINC) 74 - 99 mg/dL High 234 GLUCOSE-POCT Performed By: #### GLUPO #### [facility] [address] [place] [address] ANGIO CHEST Observed: 03/12/2018 Status: F Source: [facility] FOR PE 10:35 PM HOSPITALS REPOSITORY Patient Name: DIPESH BERMUDEZ STUDY: TH CT ANGIO CHEST FOR PE; 03/12/2018 10:35 pm INDICATION: Signs/Symptoms: Mr. Bermudez has increased 02 requirements and unexplained tachycardia concerning for PE., Lie Flat: Yes. COMPARISON: Chest CT dated 03/04/2018 and 02/16/2018. ACCESSION NUMBER(S): [id number] ORDERING CLINICIAN: BROOKE MULLEN TECHNIQUE: Helical data acquisition of the chest was obtained following intravenous administration of 90 mL of Isovue 370 contrast. Images were reformatted in axial, coronal, and sagittal planes including Axial and Coronal MIP. FINDINGS: POTENTIAL LIMITATIONS OF THE STUDY:Mild respiratory motion artifact. HEART AND VESSELS: No discrete filling defects within the main pulmonary artery or its branches. Main pulmonary artery is within upper normal range. The thoracic aorta is mildly ectatic, measuring up to 4 cm, unchanged from prior examination. There is mild atherosclerotic calcifications along the aortic arch and descending thoracic aorta. Mild to moderate coronary artery calcifications are seen.The study is not optimized for evaluation of coronary arteries. The cardiac chambers are not enlarged. No evidence of pericardial effusion. MEDIASTINUM AND MERRILL, LOWER NECK AND AXILLA: The visualized thyroid gland is within normal limits. No evidence of thoracic lymphadenopathy by CT criteria. Prominent AP window and left hilar lymph nodes are likely reactive in nature, measuring 9 mm in short axis. Esophagus appears within normal limits as seen. LUNGS AND AIRWAYS: The trachea is patent. There is again demonstration of bronchial wall thickening with mucous secretions in resulting in near complete obliteration of left upper lobar bronchus and more distal bronchi. Patient is status post left lower lobectomy. There has been interval development of complete left lung collapse with resultant leftward mediastinal shift. Only minimal portion of left apical lung aeration remains (axial image 53 of 294). At the medial aspect of the left lung parenchyma, there is decreased enhancement, which may represent focal infectious consolidation. There is small left pleural effusion again seen, slightly increased from prior. There is mild right basilar atelectasis, improved from prior examination.. There is also suggestion of subtle tree-in-bud opacities within right upper lobe, unchanged from prior examination. UPPER ABDOMEN: The visualized subdiaphragmatic structures demonstrate no acute findings. Nodularities of the right adrenal gland is again noted. Mild bilateral perinephric stranding. PEG tube is seen in the gastric body. CHEST WALL AND OSSEOUS STRUCTURES: There are no suspicious osseous lesions. Chronic fracture deformity of the left 11th rib. Multilevel degenerative changes are present IMPRESSION: 1. No discrete filling defect to suggest pulmonary embolism to the segmental level. 2. Bronchial wall thickening and mucous secretions with near complete obliteration of left upper bronchus and more distal bronchi and resulting in complete collapse of left lung with significant volume loss. Subtle tree-in-bud opacities within right upper lobe are unchanged from prior. Correlate with concern for aspiration. 3. Focal area of decreased enhancement of the left lung parenchyma, concerning for focal infectious consolidation. 4. Small left pleural effusion again seen, slightly increased from prior. 5. Rest of stable chronic findings as above. 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 I personally reviewed the images/study and I agree with the findings as stated. This study was interpreted at [facility], [place], [place]. Electronically signed by: LEXI LI MD GLUCOSE-POCT Collected: 03/12/2018 Status: F Source: [facility] 5:33 PM HOSPITALS REPOSITORY TYPE CODE TESTS RESULT OUT OF RANGE REFERENCE UNITS LAB GLUP(LOINC) 74 - 99 mg/dL High 154 GLUCOSE-POCT Performed By: #### GLUPO #### [facility] [address] [place] [id number] CLINICAL EVENT NOTE Observed: 03/12/2018 Status: UNK Source: [facility] 2:12 PM HOSPITALS REPOSITORY Event: Details: ECG and Telemetry reviewed. Rhythm is sinus tachycardia with PACs. No atrial fibrillation noted. Electronic Signatures: Donald Tompkins ( (Fellow)) (Signed 12-Mar-2018 14:13) Authored: Event Last Updated: 12-Mar-2018 14:13 by Donald Tompkins ( (Fellow)) GLUCOSE-POCT Collected: 03/12/2018 Status: F Source: [facility] 12:19 PM [facility]OSPITALS REPOSITORY TYPE CODE TESTS RESULT OUT OF RANGE REFERENCE UNITS LAB GLUP(LOINC) 74 - 99 mg/dL High 222 GLUCOSE-POCT Performed By: #### GLUPO #### [facility] [address] [place] [id number] DAILY PROGRESS Observed: 03/12/2018 Status: COMPLETED Source: [facility] NOTE-MEDICINE 11:17 AM HOSPITALS REPOSITORY Service: Medicine Subjective Data: DIPESH BERMUDEZ is a 67 year old Male who is Hospital Day # 31 and POD #29 for left retrosigmoid craniotomy for tumor resection. Denies any complaints. Objective Data: Objective Information: T PRBPSpO2 [id number]/8092% Date/Time03/12 14: 14: 14: 14: 14:20 Range(36.7C - 37.5C ) (73 - 109 ) (18 - 18 ) (122 - 155 )/ (76 - 83 ) (91% - 95% ) As of 12-Mar-2018 14:20:00, patient is on 3 L/min of oxygen via nasal cannula. Highest temp of 37.5 C was recorded at 03/12 9:55 Physical Exam: Constitutional: Lying in bed in NAD Eyes: Clear sclera. Head/Neck: Craniectomy incision intact. Respiratory/Thorax: Nonlabored. Lungs CTA bilaterally. Cardiovascular: RRR. Normal S1/S2. No M/R/G noted. Gastrointestinal: Abdomen soft and nontender. +BS noted. PEG tube intact. Musculoskeletal: Right sided weakness. Extremities: No peripheral edema Neurological: A/Ox2. Psychological: pleasant affect Skin: Warm and dry; no rashes or lesions Medication: Medications: Continuous Medications No continuous medications are active Scheduled Medications 1. Atorvastatin: 40 mg Oral Daily 2. Docusate Oral Liquid: 100 mg Oral 2 Times a Day 3. Enoxaparin SubCutaneous: 40 mg SubCutaneous Every 24 Hours 4. Esomeprazole Oral Packet: 40 mg NasoGastric Tube 2 Times a Day 5. Fluticasone 250 microgram -Salmeterol 50 microgram/ Inh: 1 inhalation Inhalation Every 12 Hours 6. Formoterol 20 microgram/ 2 mL Neb Soln: 2 mL Inhalation Every 12 Hours 7. guaiFENesin Oral Liquid: 400 mg Oral Every 6 Hours 8. Insulin Glargine (Lantus) Injectable: 25 unit(s) SubCutaneous At Bedtime 9. Insulin Glargine (Lantus) Injectable: 25 unit(s) SubCutaneous Daily Before First Meal 10. Insulin Lispro (HumaLOG) Injectable: 5 unit(s) SubCutaneous Every 6 Hours 11. Insulin Lispro Moderate Corrective Scale: unit(s) SubCutaneous Every 6 Hours 12. Iopamidol 76% (ISOVUE 370) -Radiology Contrast): 135.15 mL IntraVenous Push Once 13. Linezolid Oral Liquid: 600 mg PEG Tube Every 12 Hours 14. Nicotine 14 mg/ 24 hour TransDermal: 1 patch TransDermal Every 24 Hours 15. Nystatin Oral Liquid: 397242 unit(s) Oral Every 6 Hours 16. Petrolatum Topical: 1 application(s) Topical 2 Times a Day 17. Polyethylene Glycol: 17 gram(s) Oral Daily 18. Silodosin (NON - Formulary): 8 mg NasoGastric Tube Daily 19. Sodium Chloride 0.9% Injectable Flush: 10 mL IntraVenous Flush Every 12 Hours 20. Valproic Acid (Depakene) Oral Liquid: 250 mg PEG Tube Every 12 Hours PRN Medications 1. Acetaminophen: 650 mg Oral Every 6 Hours 2. Albuterol 2.5 mg/ 3 mL Nebulizer Soln: 3 mL Inhalation Every 2 Hours 3. Bisacodyl Rectal: 10 mg Rectal Daily 4. Dextrose 50% in Water Injectable: 25 gram(s) IntraVenous Push Every 15 Minutes 5. Fleet Adult (Sodium Phosphate) Rectal: 1 enema Rectal Daily 6. Glucagon Injectable: 1 mg IntraMuscular Every 15 Minutes 7. Heparin Flush 10 unit/ mL PF Injectable PRN: 5 mL IntraVenous Flush According to Flush Policy 8. hydrALAZINE Injectable: 10 mg IntraVenous Push Every 6 Hours 9. Lidocaine 1% Injectable (PICC KIT): 1 mL IntraDermal Once 10. Ondansetron Injectable: 4 mg IntraVenous Push Every 6 Hours 11. Polyethylene Glycol: 17 gram(s) Oral Daily Currently Suspended Medications 1. Albuterol 2.5 mg/ 3 mL Nebulizer Soln: 3 mL Inhalation Every 6 Hours 2. amLODIPine: 10 mg Oral Daily 3. hydroCHLOROthiazide: 25 mg Oral Daily 4. Lisinopril: 30 mg Oral Daily 5. oxyCODONE Immediate Release: 5 mg Oral Every 4 Hours 6. oxyCODONE Immediate Release: 10 mg Oral Every 4 Hours 7. Sennosides: 2 tablet(s) Oral Daily Recent Lab Results: Results: I have reviewed these laboratory results: Glucose_POCT Trending View [id number] 17:33:00 27-Oct-2018 12:19:00 12-Mar-2018 05:32:00 12-Mar-2018 01:42:00 [id number] H 222 H 152 H 182 H Complete Blood Count + Differential 12-Mar-2018 09:41:00 ResultValue White Blood Cell Count 15.4 H Nucleated Erythrocyte Count 0.0 Red Blood Cell Count 4.12 L HGB 11.8 L HCT 38.9 L MCV 94 MCHC 30.3 L PLT 322 RDW-CV 16.0 H Neutrophil % 64.8 Immature Granulocytes % 4.5 Lymphocyte % 15.9 Monocyte % 10.0 Eosinophil % 3.0 Basophil % 1.8 Neutrophil Count 9.96 H Lymphocyte Count 2.45 Monocyte Count 1.54 H Eosinophil Count 0.46 Basophil Count 0.28 H Renal Function Panel 12-Mar-2018 09:41:00 ResultValue Glucose, Serum 174 H NA 136 K 5.3 CL 98 Bicarbonate, Serum 28 Anion Gap, Serum 15 BUN 42 H CREAT 0.93 GFR-Non >60 GFR- >60 Calcium, Serum 9.5 Phosphorus, Serum 3.0 ALB 2.7 L Assessment and Plan: Assessment: This is a pleasant 67 year old male with history significant for HTN, type II DM, COPD, and meningioma s/p craniotomy with resection 2013 (done at [facility]) who was admitted for repeat surgical resection of meningioma as angiogram prior to admit had no targets for embolization. 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 Postoperative course complicated by dysphagia, brainstem infarction as well as hypoxia concerning for aspiration pneumonia necessitating transfer to ICU. Sputum grew MRSA. He ended up failing modified barium swallow by speech therapy. ENT was consulted and performed flexible laryngoscopy that noted generalized pharyngeal weakness with gross aspiration. GI was consulted and placed PEG tube on 02/21/18 with EGD at that time also noting grade D esophagitis. On 02/24/18 neurosurgery performed lumbar puncture that was unrevealing. Transferred from step down unit to regular nursing floor for further management by medicine service. in a shared visit with Dr. Cruz Meningioma s/p retrosigmoid craniectomy with postop brainstem infarction: LP cultures from 02/24/18 negative so far. - follow up LP cultures - outpatient follow up with Dr. Cardoza in neurosurgery on 03/21/18 at 3:15 PM Aspiration/MRSA pneumonia: - continue linezolid 600 mg twice a day via PEG tube with stop date of 03/13/18 per ID recommendations - check CBC daily Tachycardia: initially concerning for Afib. Cardiology reviewed telemetry/ECG and felt it was actually sinus tachycardia with PACs. - will get CT angio to rule out PE Superficial venous thrombosis: US from 03/06/18 noted an occlusive thrombosis of left basilic vein adjacent to midline catheter - no therapeutic anticoagulation needed for this - plan to remove midline at time of discharge Dysphagia s/p PEG tube placement: - NPO - continue Diabetic Source tube feedings - needs repeat modified barium swallow in 4-6 weeks (per verbal recommendations by speech therapy) - oral hygiene Grade D esophagitis: - continue PPI BID x3 months - will need outpatient follow up in GI clinic in 3 months COPD: - continue albuterol nebulizers and Advair HTN: BP controlled - hold all schedule antihypertensives for now - continue PRN hydralazine Type II DM: - continue Lantus 25 units BID - continue scheduled Lispro 5 units every 6 hours - continue Lispro sliding scale with hypoglycemia protocol DVT prophylaxis: - enoxaparin Miscellaneous: - continue home valproic acid Code status: - DNAR/DNI Discharge disposition: - PT/OT recommending acute rehab - anticipate discharge sometime early next week - social work assisting with placement Signature/Cosignature/Attestation: Attending Only - Shared Visit with Advanced Practice ProviderThis is a shared visit. I have reviewed the Advanced Practice Providers encounter note, approve the Advanced Practice Providers documentation, and provide the following additional information from my personal encounter. Comments/ Additional Findings Seen at the bedside. Family present, no complains, no acute overnight events. Awake, follows commands. Vitals noted, tachycardic, O2 sat at 91-94% on 3L )2, was on 2L previously. On exam, deviation of mouth noted lungs with fair air entry, no wheeze/ rhonchi heard Irregular tachycardic heart rate, unable to hear any murmurs. soft, +peg in place, area clean and dry, BS+ No pedal edema, palpable pulses. Labs noted. Leukocytosis +, Cr stable. Telemetry reviewed, tachycardic, irregular EKG with A fib, irregular rhythm. Plan Tachycardic, Sinus vs A fib, irregular on auscultation No pain, O2 sat at around the same., appears to be adequately hydrated, receiving tube feeds, can try to increase free water flushes, given mild elevated Na yesterday, but Na down to 136 +basilic vein thrombosis by the midline, LUE midline still in place Started on DVT prophylaxis, Lovenox 03/10, none prior to that EKG and tele reviewed by EP, believe he has SInus tachy with PAC's, no a fib ECHO 02/16 with normal EF, LVH, impaired relaxation Will get CT PE, r/o PE if HR >120, Metop in the interim, if BP tolerates. Afebrile, leukocytosis stable, trending down. MRSA pneumonia, Acute hypoxic resp failure, requiring O2 now Cont Linezolid, last dose tomorrow. s/p Craniectomy, CVA Suture well healed, boggy, but no tenderness, clean and dry Dysphagia, s/p PEG Follow up with NSGY outpatient. O K for AC if needed as per NSGY DM type 2, Cont Insulin, fairly controlled Cont rest of meds SNF when stable. DNAR/ DNI Electronic Signatures: Brooke Mullen ([employer] OPERATOR-GROUP MANAGER) (Signed 12-Mar-2018 17:46) Authored: Service, Subjective Data, Objective Data, Assessment and Plan, Signature/Cosignature/Attestation Emiliana Cruz) (Signed 12-Mar-2018 18:28) Authored: Signature/Cosignature/Attestation Co-Signer: Service, Subjective Data, Objective Data, Assessment and Plan, Signature/Cosignature/Attestation Last Updated: 12-Mar-2018 18:28 by Emiliana Cruz) CBC AND DIFFERENTIAL Collected: 03/12/2018 Status: F Source: [facility] 9:41 AM HOSPITALS REPOSITORY TYPE CODE TESTS RESULT OUT OF REFERENCE UNITS RANGE LAB WBCR(LOINC 4.4 - 11.3 x10E9/L ) WBC High 15.4 LAB NRBC(LOINC 0.0-0.0 /100 WBC ) NUCLEATED RBC 0.0 LAB RBCCT(LOIN 4.50 - 5.90 x10E12/L C) Low RBC 4.12 LAB HGB(LOINC) 13.5 - 17.5 g/dL Low HGB 11.8 LAB HCT(LOINC) 41.0 - 52.0 % Low HCT 38.9 LAB MCV(LOINC) 80 - 100 fL MCV 94 LAB MCHC2(LOIN 32.0 - 36.0 g/dL C) Low MCHC 30.3 LAB PLTCT(LOIN 150 - 450 x10E9/L C) PLT 322 LAB RDWCV(LOIN 11.5 - 14.5 % C) RDW-CV High 16.0 LAB NEUT(LOINC 40.0 - 80.0 % ) % NEUTROPHIL 64.8 LAB IG(LOINC) 0.0 - 0.9 % % AUTOMATED 4.5 IMMATURE GRAN Result Comment: Percent differential counts (%) should be interpreted in the context of the absolute cell counts (cells/L). LAB LYMPH(LOINC) 13.0 - % 44.0 % LYMPHOCYTE 15.9 LAB MONO(LOINC) 2.0 - 10.0 % % MONOCYTE 10.0 LAB EOS(LOINC) 0.0 - 6.0 % % EOSINOPHIL 3.0 LAB BASO(LOINC) 0.0 - 2.0 % % BASOPHIL 1.8 LAB #NEUT(LOINC) 1.20 - x10E9/L 7.70 NEUTROPHIL High 9.96 LAB #LYMP(LOINC) 1.20 - x10E9/L 4.80 LYMPHOCYTE 2.45 LAB #MONO(LOINC) 0.10 - x10E9/L 1.00 MONOCYTE High 1.54 LAB #EOS(LOINC) 0.00 - x10E9/L 0.70 EOSINOPHIL 0.46 LAB #BASO(LOINC) 0.00 - x10E9/L 0.10 BASOPHIL High 0.28 Performed By: #### CBCDF #### [facility] [address] [place] [address] RENAL FUNCTION PANEL Collected: 03/12/2018 Status: F Source: [facility] 9:41 AM [facility]OSPITALS REPOSITORY TYPE CODE TESTS RESULT OUT OF REFERENCE UNITS RANGE LAB GLU(LOINC) 74 - 99 mg/dL GLUCOSE High 174 LAB SOD(LOINC) 136 - 145 mmol/L SODIUM 136 LAB K(LOINC) 3.5 - 5.3 mmol/L POTASSIUM 5.3 LAB CHLOR(LOIN 98 - 107 mmol/L C) CHLORIDE 98 LAB BIC(LOINC) 21 - 32 mmol/L BICARBONATE 28 LAB ANGAP(LOIN 10 - 20 mmol/L C) ANION GAP 15 LAB UREA(LOINC 6 - 23 mg/dL ) UREA High NITROGEN 42 LAB CREA(LOINC 0.50 - 1.30 mg/dL ) CREATININE 0.93 LAB GFRFN(LOIN >60 mL/min/1.7 C) 3m2 GFR-NON AM. >60 LAB GFRAA(LOIN >60 mL/min/1.7 C) 3m2 GFR- AM. >60 Result Comment: CALCULATIONS OF ESTIMATED GFR ARE PERFORMED USING THE MDRD STUDY EQUATION FOR THE IDMS-TRACEABLE CREATININE METHODS. CLIN CHEM 2007;53:766-72 LAB CA(LOINC) 8.6 - 10.6 mg/dL CALCIUM 9.5 LAB PHOS(LOINC) 2.5 - 4.9 mg/dL PHOSPHORUS 3.0 Result Comment: The performance characteristics of phosphorus testing in heparinized plasma have been validated by the individual laboratory site where testing is performed. Testing on heparinized plasma is not approved by the FDA; however, such approval is not necessary. LAB ALB(LOINC) 3.4 - 5.0 g/dL Low ALBUMIN 2.7 Performed By: #### RENAL #### [facility] [address] [place] [address] GLUCOSE-POCT Collected: 03/12/2018 Status: F Source: [facility] 5:32 AM [facility]ITALS REPOSITORY TYPE CODE TESTS RESULT OUT OF RANGE REFERENCE UNITS LAB GLUP(LOINC) 74 - 99 mg/dL High 152 GLUCOSE-POCT Performed By: #### GLUPO #### [facility] [address] [place] [address] GLUCOSE-POCT Collected: 03/12/2018 Status: F Source: [facility] 1:42 AM [facility]ALS REPOSITORY TYPE CODE TESTS RESULT OUT OF RANGE REFERENCE UNITS LAB GLUP(LOINC) 74 - 99 mg/dL High 182 GLUCOSE-POCT Performed By: #### GLUPO #### [facility] [address] [place] [address] GLUCOSE-POCT Collected: 03/11/2018 Status: F Source: [facility] 10:18 PM HOSPITALS REPOSITORY TYPE CODE TESTS RESULT OUT OF RANGE REFERENCE UNITS LAB GLUP(LOINC) 74 - 99 mg/dL High 139 GLUCOSE-POCT Performed By: #### GLUPO #### [facility] [address] [place] [address] GLUCOSE-POCT Collected: 03/11/2018 Status: F Source: [facility] 6:49 PM [facility]OSPITALS REPOSITORY TYPE CODE TESTS RESULT OUT OF RANGE REFERENCE UNITS LAB GLUP(LOINC) 74 - 99 mg/dL High 146 GLUCOSE-POCT Performed By: #### GLUPO #### [facility] [address] [place] [address] DAILY PROGRESS Observed: 03/11/2018 Status: COMPLETED Source: [facility] NOTE-MEDICINE 4:40 PM HOSPITALS REPOSITORY Service: Medicine Subjective Data: DIPESH BERMUDEZ is a 67 year old Male who is Hospital Day # 30 and POD #28 for left retrosigmoid craniotomy for tumor resection. I saw the patient, reviewed labs, images, medications, reports and discussed with the GROUP MANAGER. No fever or desaturation reported past 24h. At the time we arrived in his room he was sleeping, it took a few min to wake him up. Did not have any new complaints. Objective Data: Objective Information: T PRBPSpO2 [id number]% Date/Time03/11 9: 9: 9: 9: 9:14 Range(36.9C - 37.6C ) (74 - 109 ) (18 - 18 ) (113 - 159 )/ (66 - 85 ) (91% - 95% ) Highest temp of 37.6 C was recorded at 03/10 17:36 Intake/output not followed strictly, not critically important at this time. Physical examination: Today's physical findings are similar to those noted/reported yesterday. A middle (older than stated) age male oriented to self in mild detectable physical distress. No dyskinesia movements noted when asleep. It quickly appeared after waking up. No signs of trauma in the head. Nonicteric sclera, round pupils symmetrically respond to light. Full range of motion in all directions. Mouth and throat mucosa dry, no ulcers or thrush. Edentulous, no dentures were present. When sleeping he breaths by mouth, mucosa is dry all the time. Supple neck, no JVD, or bruit appreciated. Good air motion, no wheezing or rales heard. While without movements of dyskinesia he was breathing with larger volumes, no wheezing or rales. Nasal cannula was in place, nose patent. Regular rhythm, clear S1/S2 no appreciable murmur or gallop. Abdomen round, large with normal bowel sounds, no tenderness or organomegaly appreciated. PEG in place, dry and clean exit site. Neuro exam showed mild R hemiparesis. He has buccal dyskinesia pretty severe. (In)coherent, did not appear depressed. No lab tests performed today below are the most recent ones. WBC: 16.2 -> 12.8 -> 14.1 -> 14.2 Hctr: 38.7 -> 36.7 -> 38.0 -> 37.0 Platelet: 302 -> 345 -> 367 -> 333 BUN/creatinine: 47/0.85 -> 39/0.78 -> 40/0.86 43/0.92 K+(mEq/L): 5.2 -> 5.6 -> 4.7 Capillary glucose is reported daily: AM glucose: 169 Past 24h: 143 - 220 No new radiological imaging; previous ones I reviewed, read the report and discussed with the GROUP MANAGER. I reviewed the medications and discussed with the resident. Medical decision making: An elderly male with multiple medical problems, listed according to importance: Recurrent meningeoma, s/p resection complicated with brainstem stroke. Most recent MRI showed changes that are indicative of infarct evolution although perifocal ischemia cannot be excluded. Continue statin. MRSA pneumonia presumed from aspiration. No fever or desaturation. He is on oxygen supplementation though. Leukocytosis is fluctuating. Per ID team linezolid is being given. Severe dysphagia, s/p gastrostomy (PEG) insertion. Dysphagia also can be from tardive dyskinesia! Type 2 DM. The feeding is continuous. In AM glucose was higher likely because smaller dose of evening glargine given. Currently is to be on Glargine 25 units BID. Continue lispro as ordered. Hyperkalemia. He has no renal disfunction. Heparin can cause hyperkalemia. With polystyrene hyerkalemia resolved. Substitute enoxaparin (40mg daily) for heparin. COPD Breathing treatments. On previous days he was saturating optimally on ambient air. Oxygen can be discontinued as judged by the oxymetry. Electronic Signatures: Brian Raza) (Signed 11-Mar-2018 16:49) Authored: Service, Subjective Data, Objective Data, Signature/Cosignature/Attestation Last Updated: 11-Mar-2018 16:49 by Brian Raza) GLUCOSE-POCT Collected: 03/11/2018 Status: F Source: [facility] 12:23 PM [facility]OSPITALS REPOSITORY TYPE CODE TESTS RESULT OUT OF RANGE REFERENCE UNITS LAB GLUP(LOINC) 74 - 99 mg/dL High 201 GLUCOSE-POCT Performed By: #### GLUPO #### [facility] [address] [place] [address] CBC AND DIFFERENTIAL Collected: 03/11/2018 Status: F Source: [facility] 6:44 AM [facility]ITALS REPOSITORY TYPE CODE TESTS RESULT OUT OF REFERENCE UNITS RANGE LAB WBCR(LOINC 4.4 - 11.3 x10E9/L ) WBC High 14.2 LAB NRBC(LOINC 0.0-0.0 /100 WBC ) NUCLEATED RBC 0.0 LAB RBCCT(LOIN 4.50 - 5.90 x10E12/L C) Low RBC 3.99 LAB HGB(LOINC) 13.5 - 17.5 g/dL Low HGB 11.5 LAB HCT(LOINC) 41.0 - 52.0 % Low HCT 37.0 LAB MCV(LOINC) 80 - 100 fL MCV 93 LAB MCHC2(LOIN 32.0 - 36.0 g/dL C) Low MCHC 31.1 LAB PLTCT(LOIN 150 - 450 x10E9/L C) PLT 333 LAB RDWCV(LOIN 11.5 - 14.5 % C) RDW-CV High 15.8 LAB NEUT(LOINC 40.0 - 80.0 % ) % NEUTROPHIL 64.5 LAB IG(LOINC) 0.0 - 0.9 % % AUTOMATED 4.6 IMMATURE GRAN Result Comment: Percent differential counts (%) should be interpreted in the context of the absolute cell counts (cells/L). LAB LYMPH(LOINC) 13.0 - % 44.0 % LYMPHOCYTE 18.7 LAB MONO(LOINC) 2.0 - 10.0 % % MONOCYTE 8.4 LAB EOS(LOINC) 0.0 - 6.0 % % EOSINOPHIL 2.7 LAB BASO(LOINC) 0.0 - 2.0 % % BASOPHIL 1.1 LAB #NEUT(LOINC) 1.20 - x10E9/L 7.70 NEUTROPHIL High 9.16 LAB #LYMP(LOINC) 1.20 - x10E9/L 4.80 LYMPHOCYTE 2.65 LAB #MONO(LOINC) 0.10 - x10E9/L 1.00 MONOCYTE High 1.19 LAB #EOS(LOINC) 0.00 - x10E9/L 0.70 EOSINOPHIL 0.39 LAB #BASO(LOINC) 0.00 - x10E9/L 0.10 BASOPHIL High 0.16 Performed By: #### CBCDF #### [facility] [address] [place] [address] RENAL FUNCTION PANEL Collected: 03/11/2018 Status: F Source: [facility] 6:44 AM [facility]ITALS REPOSITORY TYPE CODE TESTS RESULT OUT OF REFERENCE UNITS RANGE LAB GLU(LOINC) 74 - 99 mg/dL GLUCOSE High 162 LAB SOD(LOINC) 136 - 145 mmol/L SODIUM 138 LAB K(LOINC) 3.5 - 5.3 mmol/L POTASSIUM 4.7 LAB CHLOR(LOIN 98 - 107 mmol/L C) CHLORIDE 99 LAB BIC(LOINC) 21 - 32 mmol/L BICARBONATE 31 LAB ANGAP(LOIN 10 - 20 mmol/L C) ANION GAP 13 LAB UREA(LOINC 6 - 23 mg/dL ) UREA High NITROGEN 43 LAB CREA(LOINC 0.50 - 1.30 mg/dL ) CREATININE 0.92 LAB GFRFN(LOIN >60 mL/min/1.7 C) 3m2 GFR-NON AM. >60 LAB GFRAA(LOIN >60 mL/min/1.7 C) 3m2 GFR- AM. >60 Result Comment: CALCULATIONS OF ESTIMATED GFR ARE PERFORMED USING THE MDRD STUDY EQUATION FOR THE IDMS-TRACEABLE CREATININE METHODS. CLIN CHEM 2007;53:766-72 LAB CA(LOINC) 8.6 - 10.6 mg/dL CALCIUM 9.5 LAB PHOS(LOINC) 2.5 - 4.9 mg/dL PHOSPHORUS 3.4 Result Comment: The performance characteristics of phosphorus testing in heparinized plasma have been validated by the individual laboratory site where testing is performed. Testing on heparinized plasma is not approved by the FDA; however, such approval is not necessary. LAB ALB(LOINC) 3.4 - 5.0 g/dL Low ALBUMIN 2.6 Performed By: #### RENAL #### [facility] [address] [place] [address] GLUCOSE-POCT Collected: 03/11/2018 Status: F Source: [facility] 5:35 AM [facility] REPOSITORY TYPE CODE TESTS RESULT OUT OF RANGE REFERENCE UNITS LAB GLUP(LOINC) 74 - 99 mg/dL High 169 GLUCOSE-POCT Performed By: #### GLUPO #### [facility] [address] [place] [address] GLUCOSE-POCT Collected: 03/11/2018 Status: F Source: [facility] 12:30 AM [facility] REPOSITORY TYPE CODE TESTS RESULT OUT OF RANGE REFERENCE UNITS LAB GLUP(LOINC) 74 - 99 mg/dL High 212 GLUCOSE-POCT Performed By: #### GLUPO #### [facility] [address] [place] [address] GLUCOSE-POCT Collected: 03/10/2018 Status: F Source: [facility] 10:35 PM [facility] REPOSITORY TYPE CODE TESTS RESULT OUT OF RANGE REFERENCE UNITS LAB GLUP(LOINC) 74 - 99 mg/dL High 143 GLUCOSE-POCT Performed By: #### GLUPO #### [facility] [address] [place] [address] GLUCOSE-POCT Collected: 03/10/2018 Status: F Source: [facility] 6:00 PM [facility] REPOSITORY TYPE CODE TESTS RESULT OUT OF RANGE REFERENCE UNITS LAB GLUP(LOINC) 74 - 99 mg/dL High 214 GLUCOSE-POCT Performed By: #### GLUPO #### [facility] [address] [place] [address] GLUCOSE-POCT Collected: 03/10/2018 Status: F Source: [facility] 11:47 AM [facility] REPOSITORY TYPE CODE TESTS RESULT OUT OF RANGE REFERENCE UNITS LAB GLUP(LOINC) 74 - 99 mg/dL High 220 GLUCOSE-POCT Performed By: #### GLUPO #### [facility] [address] [place] [address] DAILY PROGRESS Observed: 03/10/2018 Status: COMPLETED Source: [facility]-MEDICINE 10:59 AM [facility]OS[facility]ITALS REPOSITORY Service: Medicine Subjective Data: DIPESH BERMUDEZ is a 67 year old Male who is Hospital Day # 29 and POD #27 for left retrosigmoid craniotomy for tumor resection. Denies any complaints. Objective Data: Objective Information: T PRBPSpO2 [id number]% Date/Time03/10 6: 6: 6: 6: 6:00 Range(36.6C - 37.6C ) (79 - 87 ) (18 - 20 ) (122 - 144 )/ (73 - 82 ) (91% - 94% ) Highest temp of 37.6 C was recorded at 03/10 2:00 Physical Exam: Constitutional: Lying in bed in NAD Eyes: Clear sclera. Head/Neck: Craniectomy incision intact. Respiratory/Thorax: Nonlabored. Lungs CTA bilaterally. Cardiovascular: RRR. Normal S1/S2. No M/R/G noted. Gastrointestinal: Abdomen soft and nontender. +BS noted. PEG tube intact. Musculoskeletal: Right sided weakness. Extremities: No peripheral edema Neurological: Oriented x2. Somnolent this morning. Psychological: pleasant affect Skin: Warm and dry; no rashes or lesions Medication: Medications: Continuous Medications No continuous medications are active Scheduled Medications 1. Atorvastatin: 40 mg Oral Daily 2. Docusate Oral Liquid: 100 mg Oral 2 Times a Day 3. Enoxaparin SubCutaneous: 40 mg SubCutaneous Every 24 Hours 4. Esomeprazole Oral Packet: 40 mg NasoGastric Tube 2 Times a Day 5. Fluticasone 250 microgram -Salmeterol 50 microgram/ Inh: 1 inhalation Inhalation Every 12 Hours 6. Formoterol 20 microgram/ 2 mL Neb Soln: 2 mL Inhalation Every 12 Hours 7. guaiFENesin Oral Liquid: 400 mg Oral Every 6 Hours 8. Insulin Glargine (Lantus) Injectable: 25 unit(s) SubCutaneous At Bedtime 9. Insulin Glargine (Lantus) Injectable: 25 unit(s) SubCutaneous Daily Before First Meal 10. Insulin Lispro (HumaLOG) Injectable: 5 unit(s) SubCutaneous Every 6 Hours 11. Insulin Lispro Moderate Corrective Scale: unit(s) SubCutaneous Every 6 Hours 12. Linezolid Oral Liquid: 600 mg PEG Tube Every 12 Hours 13. Nicotine 14 mg/ 24 hour TransDermal: 1 patch TransDermal Every 24 Hours 14. Nystatin Oral Liquid: [id number] unit(s) Oral Every 6 Hours 15. Petrolatum Topical: 1 application(s) Topical 2 Times a Day 16. Polyethylene Glycol: 17 gram(s) Oral Daily 17. Silodosin (NON - Formulary): 8 mg NasoGastric Tube Daily 18. Sodium Chloride 0.9% Injectable Flush: 10 mL IntraVenous Flush Every 12 Hours 19. Valproic Acid (Depakene) Oral Liquid: 250 mg PEG Tube Every 12 Hours PRN Medications 1. Acetaminophen: 650 mg Oral Every 6 Hours 2. Albuterol 2.5 mg/ 3 mL Nebulizer Soln: 3 mL Inhalation Every 2 Hours 3. Bisacodyl Rectal: 10 mg Rectal Daily 4. Dextrose 50% in Water Injectable: 25 gram(s) IntraVenous Push Every 15 Minutes 5. Fleet Adult (Sodium Phosphate) Rectal: 1 enema Rectal Daily 6. Glucagon Injectable: 1 mg IntraMuscular Every 15 Minutes 7. Heparin Flush 10 unit/ mL PF Injectable PRN: 5 mL IntraVenous Flush According to Flush Policy 8. hydrALAZINE Injectable: 10 mg IntraVenous Push Every 6 Hours 9. Lidocaine 1% Injectable (PICC KIT): 1 mL IntraDermal Once 10. Ondansetron Injectable: 4 mg IntraVenous Push Every 6 Hours 11. Polyethylene Glycol: 17 gram(s) Oral Daily Currently Suspended Medications 1. Albuterol 2.5 mg/ 3 mL Nebulizer Soln: 3 mL Inhalation Every 6 Hours 2. amLODIPine: 10 mg Oral Daily 3. hydroCHLOROthiazide: 25 mg Oral Daily 4. Lisinopril: 30 mg Oral Daily 5. oxyCODONE Immediate Release: 5 mg Oral Every 4 Hours 6. oxyCODONE Immediate Release: 10 mg Oral Every 4 Hours 7. Sennosides: 2 tablet(s) Oral Daily Recent Lab Results: Results: I have reviewed these laboratory results: Glucose_POCT Trending View [id number] 11:47:00 10-Mar-2018 06:37:00 10-Mar-2018 00:33:00 [id number] H 213 H 182 H Complete Blood Count + Differential 10-Mar-2018 07:51:00 ResultValue White Blood Cell Count 14.1 H Nucleated Erythrocyte Count 0.0 Red Blood Cell Count 4.15 L HGB 11.6 L HCT 38.0 L MCV 92 MCHC 30.5 L PLT 367 RDW-CV 15.3 H Neutrophil % 70.2 Immature Granulocytes % 3.5 Lymphocyte % 14.0 Monocyte % 7.3 Eosinophil % 3.8 Basophil % 1.2 Neutrophil Count 9.92 H Lymphocyte Count 1.98 Monocyte Count 1.03 H Eosinophil Count 0.54 Basophil Count 0.17 H Renal Function Panel 10-Mar-2018 07:51:00 ResultValue Glucose, Serum 186 H NA 133 L K 5.6 H CL 97 L Bicarbonate, Serum 28 Anion Gap, Serum 14 BUN 40 H CREAT 0.86 GFR-Non >60 GFR- >60 Calcium, Serum 9.6 Phosphorus, Serum 3.0 ALB 2.7 L Assessment and Plan: Assessment: This is a pleasant 67 year old male with history significant for HTN, type II DM, COPD, and meningioma s/p craniotomy with resection 2013 (done at [facility]) who was admitted for repeat surgical resection of meningioma as angiogram prior to admit had no targets for embolization. 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 Postoperative course complicated by dysphagia, brainstem infarction as well as hypoxia concerning for aspiration pneumonia necessitating transfer to ICU. Sputum grew MRSA. He ended up failing modified barium swallow by speech therapy. ENT was consulted and performed flexible laryngoscopy that noted generalized pharyngeal weakness with gross aspiration. GI was consulted and placed PEG tube on 02/21/18 with EGD at that time also noting grade D esophagitis. On 02/24/18 neurosurgery performed lumbar puncture that was unrevealing. Transferred from step down unit to regular nursing floor for further management by medicine service. in a shared visit with Dr. Raza Meningioma s/p retrosigmoid craniectomy with postop brainstem infarction: LP cultures from 02/24/18 negative so far. - follow up LP cultures - outpatient follow up with Dr. Cardoza in neurosurgery on 03/21/18 at 3:15 PM Aspiration/MRSA pneumonia: leukocytosis improving. - continue linezolid 600 mg twice a day via PEG tube with stop date of 03/13/18 per ID recommendations - check CBC daily Hyperkalemia: - will give 30 grams of Kayexalate as potassium up to 5.6 - change subcutaneous heparin to enoxaparin for chemoprophylaxis - check renal function panel in the morning Superficial venous thrombosis: US from 03/06/18 noted an occlusive thrombosis of left basilic vein adjacent to midline catheter - no therapeutic anticoagulation needed for this - plan to remove midline at time of discharge Dysphagia s/p PEG tube placement: - NPO - continue Diabetic Source tube feedings - needs repeat modified barium swallow in 4-6 weeks (per verbal recommendations by speech therapy) - oral hygiene Grade D esophagitis: - continue PPI BID x3 months - will need outpatient follow up in GI clinic in 3 months COPD: - continue albuterol nebulizers and Advair HTN: BP controlled - hold all schedule antihypertensives for now - continue PRN hydralazine Type II DM: - continue Lantus 25 units BID - continue scheduled Lispro 5 units every 6 hours - continue Lispro sliding scale with hypoglycemia protocol DVT prophylaxis: - change subcutaneous heparin to enoxaparin for chemoprophylaxis in light of hyperkalemia (see above) Miscellaneous: - continue home valproic acid Code status: - DNAR/DNI Discharge disposition: - PT/OT recommending acute rehab - medically ready for discharge; social work assisting with placement Signature/Cosignature/Attestation: Attending Only - Shared Visit with Advanced Practice ProviderThis is a shared visit. I have reviewed the Advanced Practice Providers encounter note, approve the Advanced Practice Providers documentation, and provide the following additional information from my personal encounter. Comments/ Additional Findings No fever or desaturation reported past 24h. At the time we arrived in his room he was sleeping, didn't want to be waken up, half awake he denied having pain, nausea or SOB. Physical examination: A middle (older than stated) age male oriented to self in mild detectable physical distress. No dyskinesia movements noted just after waking up. No signs of trauma in the head. Nonicteric sclera, round pupils symmetrically respond to light. Full range of motion in all directions. Mouth and throat mucosa dry, no ulcers or thrush. Edentulous, no dentures were present. Supple neck, no JVD, or bruit appreciated. Good air motion, no wheezing or rales heard. While without movements of dyskinesia he was breathing with larger volumes, no wheezing or rales. Nasal cannula was not in place, nose patent. Regular rhythm, clear S1/S2 no appreciable murmur or gallop. Abdomen round, large with normal bowel sounds, no tenderness or organomegaly appreciated. PEG in place, dry and clean exit site. Neuro exam showed mild R hemiparesis. He has buccal dyskinesia pretty severe. (In)coherent, did not appear depressed. The rest of today's physical findings are similar to those noted/reported yesterday. No lab tests performed today below are the most recent ones. WBC: 16.2 -> 12.8 -> 14.1 Hctr: 38.7 -> 36.7 -> 38.0 Platelet: 302 -> 345 -> 367 BUN/creatinine: 47/0.85 -> 39/0.78 -> 40/0.86 K+(mEq/L): 5.2 -> 5.6 Capillary glucose is reported daily: AM glucose: 213 Past 24h: 140 - 296 No new radiological imaging; previous ones I reviewed, read the report and discussed with the GROUP MANAGER. I reviewed the medications and discussed with the resident. Medical decision making: An elderly male with multiple medical problems, listed according to importance: Recurrent meningeoma, s/p resection complicated with brainstem stroke. Most recent MRI showed changes that are indicative of infarct evolution although perifocal ischemia cannot be excluded. Continue statin. MRSA pneumonia presumed from aspiration. No fever or desaturation. Leukocytosis is fluctuating. Per ID team linezolid is being given. Severe dysphagia, s/p gastrostomy (PEG) insertion. Dysphagia also can be from tardive dyskinesia! Type 2 DM. The feeding is continuous. In AM glucose was higher likely because smaller dose of evening glargine given. Currently is to be on Glargine 25 units BID. Continue lispro as ordered. Hyperkalemia. He has no renal disfunction. Heparin can cause hyperkalemia. Polystyrene orally. Substitute enoxaparin (40mg daily) for heparin. COPD Breathing treatments. Was saturating optimally on ambient air. Oxygen can be discontinued. Anticipate discharge in 1-2 days. Electronic Signatures: Brian Raza) (Signed 10-Mar-2018 17:31) Authored: Signature/Cosignature/Attestation Co-Signer: Service, Subjective Data, Objective Data, Assessment and Plan, Signature/Cosignature/Attestation Brooke Mullen ([facility]) (Signed 10-Mar-2018 12:52) Authored: Service, Subjective Data, Objective Data, Assessment and Plan, Signature/Cosignature/Attestation Last Updated: 10-Mar-2018 17:31 by Brian Raza) CBC AND DIFFERENTIAL Collected: 03/10/2018 Status: F Source: [facility] 7:51 AM [facility]OSPITALS REPOSITORY TYPE CODE TESTS RESULT OUT OF REFERENCE UNITS RANGE LAB WBCR(LOINC 4.4 - 11.3 x10E9/L ) WBC High 14.1 LAB NRBC(LOINC 0.0-0.0 /100 WBC ) NUCLEATED RBC 0.0 LAB RBCCT(LOIN 4.50 - 5.90 x10E12/L C) Low RBC 4.15 LAB HGB(LOINC) 13.5 - 17.5 g/dL Low HGB 11.6 LAB HCT(LOINC) 41.0 - 52.0 % Low HCT 38.0 LAB MCV(LOINC) 80 - 100 fL MCV 92 LAB MCHC2(LOIN 32.0 - 36.0 g/dL C) Low MCHC 30.5 LAB PLTCT(LOIN 150 - 450 x10E9/L C) PLT 367 LAB RDWCV(LOIN 11.5 - 14.5 % C) RDW-CV High 15.3 LAB NEUT(LOINC 40.0 - 80.0 % ) % NEUTROPHIL 70.2 LAB IG(LOINC) 0.0 - 0.9 % % AUTOMATED 3.5 IMMATURE GRAN Result Comment: Percent differential counts (%) should be interpreted in the context of the absolute cell counts (cells/L). LAB LYMPH(LOINC) 13.0 - % 44.0 % LYMPHOCYTE 14.0 LAB MONO(LOINC) 2.0 - 10.0 % % MONOCYTE 7.3 LAB EOS(LOINC) 0.0 - 6.0 % % EOSINOPHIL 3.8 LAB BASO(LOINC) 0.0 - 2.0 % % BASOPHIL 1.2 LAB #NEUT(LOINC) 1.20 - x10E9/L 7.70 NEUTROPHIL High 9.92 LAB #LYMP(LOINC) 1.20 - x10E9/L 4.80 LYMPHOCYTE 1.98 LAB #MONO(LOINC) 0.10 - x10E9/L 1.00 MONOCYTE High 1.03 LAB #EOS(LOINC) 0.00 - x10E9/L 0.70 EOSINOPHIL 0.54 LAB #BASO(LOINC) 0.00 - x10E9/L 0.10 BASOPHIL High 0.17 Performed By: #### CBCDF #### [facility] [id number] [place] [address] RENAL FUNCTION PANEL Collected: 03/10/2018 Status: F Source: [facility] 7:51 AM [facility]ITALS REPOSITORY TYPE CODE TESTS RESULT OUT OF REFERENCE UNITS RANGE LAB GLU(LOINC) 74 - 99 mg/dL GLUCOSE High 186 LAB SOD(LOINC) 136 - 145 mmol/L Low SODIUM 133 LAB K(LOINC) 3.5 - 5.3 mmol/L POTASSIUM High 5.6 LAB CHLOR(LOIN 98 - 107 mmol/L C) Low CHLORIDE 97 LAB BIC(LOINC) 21 - 32 mmol/L BICARBONATE 28 LAB ANGAP(LOIN 10 - 20 mmol/L C) ANION GAP 14 LAB UREA(LOINC 6 - 23 mg/dL ) UREA High NITROGEN 40 LAB CREA(LOINC 0.50 - 1.30 mg/dL ) CREATININE 0.86 LAB GFRFN(LOIN >60 mL/min/1.7 C) 3m2 GFR-NON AM. >60 LAB GFRAA(LOIN >60 mL/min/1.7 C) 3m2 GFR- AM. >60 Result Comment: CALCULATIONS OF ESTIMATED GFR ARE PERFORMED USING THE MDRD STUDY EQUATION FOR THE IDMS-TRACEABLE CREATININE METHODS. CLIN CHEM 2007;53:766-72 LAB CA(LOINC) 8.6 - 10.6 mg/dL CALCIUM 9.6 LAB PHOS(LOINC) 2.5 - 4.9 mg/dL PHOSPHORUS 3.0 Result Comment: The performance characteristics of phosphorus testing in heparinized plasma have been validated by the individual laboratory site where testing is performed. Testing on heparinized plasma is not approved by the FDA; however, such approval is not necessary. LAB ALB(LOINC) 3.4 - 5.0 g/dL Low ALBUMIN 2.7 Performed By: #### RENAL #### [facility] [address] [place] [address] GLUCOSE-POCT Collected: 03/10/2018 Status: F Source: [facility] 6:37 AM [facility]ITALS REPOSITORY TYPE CODE TESTS RESULT OUT OF RANGE REFERENCE UNITS LAB GLUP(LOINC) 74 - 99 mg/dL High 213 GLUCOSE-POCT Performed By: #### GLUPO #### [facility] [address] [place] [address] GLUCOSE-POCT Collected: 03/10/2018 Status: F Source: [facility] 12:33 AM [facility] REPOSITORY TYPE CODE TESTS RESULT OUT OF RANGE REFERENCE UNITS LAB GLUP(LOINC) 74 - 99 mg/dL High 182 GLUCOSE-POCT Performed By: #### GLUPO #### [facility] [address] [place] [address] GLUCOSE-POCT Collected: 03/09/2018 Status: F Source: [facility] 5:20 PM [facility]OS[facility]ITALS REPOSITORY TYPE CODE TESTS RESULT OUT OF RANGE REFERENCE UNITS LAB GLUP(LOINC) 74 - 99 mg/dL High 139 GLUCOSE-POCT Performed By: #### GLUPO #### [facility] [address] [place] [address] GLUCOSE-POCT Collected: 03/09/2018 Status: F Source: [facility] 11:59 AM [facility]ALS REPOSITORY TYPE CODE TESTS RESULT OUT OF RANGE REFERENCE UNITS LAB GLUP(LOINC) 74 - 99 mg/dL High 296 GLUCOSE-POCT Performed By: #### GLUPO #### [facility] [address] [place] [address] DAILY PROGRESS Observed: 03/09/2018 Status: COMPLETED Source: [facility] NOTE-MEDICINE 11:25 AM HOSPITALS REPOSITORY Service: Medicine Subjective Data: DIPESH BERMUDEZ is a 67 year old Male who is Hospital Day # 28 and POD #26 for left retrosigmoid craniotomy for tumor resection. Denies any complaints. Objective Data: Objective Information: Moshe [id number] [id number]% Date/Time03/09 17: 17: 17: 17: 17:43 Range(36.1C - 36.8C ) (79 - 92 ) (18 - 28 ) (125 - 143 )/ (76 - 82 ) (90% - 94% ) Physical Exam: Constitutional: Lying in bed in NAD Eyes: Clear sclera. Head/Neck: Craniectomy incision intact. Respiratory/Thorax: Nonlabored. Lungs CTA bilaterally. Cardiovascular: RRR. Normal S1/S2. No M/R/G noted. Gastrointestinal: Abdomen soft and nontender. +BS noted. PEG tube intact. Musculoskeletal: Right sided weakness. Extremities: No peripheral edema Neurological: A/Ox2. Psychological: pleasant affect Skin: Warm and dry; no rashes or lesions Medication: Medications: Continuous Medications No continuous medications are active Scheduled Medications 1. Atorvastatin: 40 mg Oral Daily 2. Docusate Oral Liquid: 100 mg Oral 2 Times a Day 3. Esomeprazole Oral Packet: 40 mg NasoGastric Tube 2 Times a Day 4. Fluticasone 250 microgram -Salmeterol 50 microgram/ Inh: 1 inhalation Inhalation Every 12 Hours 5. Formoterol 20 microgram/ 2 mL Neb Soln: 2 mL Inhalation Every 12 Hours 6. guaiFENesin Oral Liquid: 400 mg Oral Every 6 Hours 7. Heparin SubCutaneous: 5000 unit(s) SubCutaneous Every 8 Hours 8. Insulin Glargine (Lantus) Injectable: 25 unit(s) SubCutaneous At Bedtime 9. Insulin Lispro (HumaLOG) Injectable: 5 unit(s) SubCutaneous Every 6 Hours 10. Insulin Lispro Moderate Corrective Scale: unit(s) SubCutaneous Every 6 Hours 11. Linezolid Oral Liquid: 600 mg PEG Tube Every 12 Hours 12. Nicotine 14 mg/ 24 hour TransDermal: 1 patch TransDermal Every 24 Hours 13. Nystatin Oral Liquid: 855968 unit(s) Oral Every 6 Hours 14. Petrolatum Topical: 1 application(s) Topical 2 Times a Day 15. Polyethylene Glycol: 17 gram(s) Oral Daily 16. Silodosin (NON - Formulary): 8 mg NasoGastric Tube Daily 17. Sodium Chloride 0.9% Injectable Flush: 10 mL IntraVenous Flush Every 12 Hours 18. Valproic Acid (Depakene) Oral Liquid: 250 mg PEG Tube Every 12 Hours PRN Medications 1. Acetaminophen: 650 mg Oral Every 6 Hours 2. Albuterol 2.5 mg/ 3 mL Nebulizer Soln: 3 mL Inhalation Every 2 Hours 3. Bisacodyl Rectal: 10 mg Rectal Daily 4. Dextrose 50% in Water Injectable: 25 gram(s) IntraVenous Push Every 15 Minutes 5. Fleet Adult (Sodium Phosphate) Rectal: 1 enema Rectal Daily 6. Glucagon Injectable: 1 mg IntraMuscular Every 15 Minutes 7. Heparin Flush 10 unit/ mL PF Injectable PRN: 5 mL IntraVenous Flush According to Flush Policy 8. hydrALAZINE Injectable: 10 mg IntraVenous Push Every 6 Hours 9. Lidocaine 1% Injectable (PICC KIT): 1 mL IntraDermal Once 10. Ondansetron Injectable: 4 mg IntraVenous Push Every 6 Hours 11. Polyethylene Glycol: 17 gram(s) Oral Daily Currently Suspended Medications 1. Albuterol 2.5 mg/ 3 mL Nebulizer Soln: 3 mL Inhalation Every 6 Hours 2. amLODIPine: 10 mg Oral Daily 3. hydroCHLOROthiazide: 25 mg Oral Daily 4. Lisinopril: 30 mg Oral Daily 5. oxyCODONE Immediate Release: 5 mg Oral Every 4 Hours 6. oxyCODONE Immediate Release: 10 mg Oral Every 4 Hours 7. Sennosides: 2 tablet(s) Oral Daily Recent Lab Results: Results: I have reviewed these laboratory results: Glucose_POCT Trending View [id number] 17:20:00 09-Mar-2018 11:59:00 09-Mar-2018 06:00:00 09-Mar-2018 00:09:00 [id number] H 296 H 140 H 169 H Complete Blood Count 09-Mar-2018 07:37:00 ResultValue White Blood Cell Count 12.8 H Nucleated Erythrocyte Count 0.0 Red Blood Cell Count 4.03 L HGB 11.3 L HCT 36.7 L MCV 91 MCHC 30.8 L PLT 345 RDW-CV 15.0 H Renal Function Panel 09-Mar-2018 07:37:00 ResultValue Glucose, Serum 161 H NA 134 L K 5.2 CL 97 L Bicarbonate, Serum 30 Anion Gap, Serum 12 BUN 39 H CREAT 0.78 GFR-Non >60 GFR- >60 Calcium, Serum 9.4 Phosphorus, Serum 3.2 ALB 2.6 L Assessment and Plan: Assessment: This is a pleasant 67 year old male with history significant for HTN, type II DM, COPD, and meningioma s/p craniotomy with resection 2013 (done at [facility]) who was admitted for repeat surgical resection of meningioma as angiogram prior to admit had no targets for embolization. 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 Postoperative course complicated by dysphagia, brainstem infarction as well as hypoxia concerning for aspiration pneumonia necessitating transfer to ICU. Sputum grew MRSA. He ended up failing modified barium swallow by speech therapy. ENT was consulted and performed flexible laryngoscopy that noted generalized pharyngeal weakness with gross aspiration. GI was consulted and placed PEG tube on 02/21/18 with EGD at that time also noting grade D esophagitis. On 02/24/18 neurosurgery performed lumbar puncture that was unrevealing. Transferred from step down unit to regular nursing floor for further management by medicine service. in a shared visit with Dr. Raza Meningioma s/p retrosigmoid craniectomy with postop brainstem infarction: LP cultures from 02/24/18 negative so far. - follow up LP cultures - outpatient follow up with Dr. Cardoza in neurosurgery on 03/21/18 at 3:15 PM Aspiration/MRSA pneumonia: leukocytosis improving. - continue linezolid 600 mg twice a day via PEG tube with stop date of 03/13/18 per ID recommendations - check CBC daily Superficial venous thrombosis: US from 03/06/18 noted an occlusive thrombosis of left basilic vein adjacent to midline catheter - no therapeutic anticoagulation needed for this - plan to remove midline at time of discharge Dysphagia s/p PEG tube placement: - NPO - continue Diabetic Source tube feedings - needs repeat modified barium swallow in 4-6 weeks (per verbal recommendations by speech therapy) - oral hygiene Grade D esophagitis: - continue PPI BID x3 months - will need outpatient follow up in GI clinic in 3 months COPD: - continue albuterol nebulizers and Advair HTN: BP controlled - hold all schedule antihypertensives for now - continue PRN hydralazine Type II DM: Blood sugars poorly controlled today - change Lantus to 25 units BID for better glycemic control - continue scheduled Lispro 5 units every 6 hours - continue Lispro sliding scale with hypoglycemia protocol DVT prophylaxis: - subcutaneous heparin Miscellaneous: - continue home valproic acid Code status: - DNAR/DNI Discharge disposition: - PT/OT recommending acute rehab - medically ready for discharge; social work assisting with placement Signature/Cosignature/Attestation: Attending Only - Shared Visit with Advanced Practice ProviderThis is a shared visit. I have reviewed the Advanced Practice Providers encounter note, approve the Advanced Practice Providers documentation, and provide the following additional information from my personal encounter. Comments/ Additional Findings No fever or desaturation reported past 24h. After we discontinued nasal canula the nursing staff likely noted desaturation and reinstituted it. Reported no complaints. At the time we arrived in his room he was awake, nasal canula away, slowly answered questions and followed simple commands. Physical examination: A middle (older than stated) age male oriented to self in mild detectable physical distress. No signs of trauma in the head. Nonicteric sclera, round pupils symmetrically respond to light. Full range of motion in all directions. Mouth and throat mucosa dry, no ulcers or thrush. Edentulous, no dentures were present. Supple neck, no JVD, or bruit appreciated. Good air motion, no wheezing or rales heard. (He cannot take deep breath and the impression for clear breath sounds may be inaccurate. This problem is not due to weakness but rather due to dyskinesia.) Nasal cannula was not in place, nose patent. Regular rhythm, clear S1/S2 no appreciable murmur or gallop. Abdomen round, large with normal bowel sounds, no tenderness or organomegaly appreciated. PEG in place, dry and clean exit site. Neuro exam showed mild R hemiparesis. He has buccal dyskinesia pretty severe. Musculoskeletal system without anatomical deformities, good strength in all major muscle groups. Extremities with no anatomical deformities, full range of motion in all big joints, no pitting edema in legs. No lymphadenopathy noted in the standard sites of examination. Skin has normal color and turgor. (In)coherent, did not appear depressed. No lab tests performed today below are the most recent ones. WBC: 16.2 -> 12.8 Hctr: 38.7 -> 36.7 Platelet: 302 -> 345 BUN/creatinine: 47/0.85 -> 39/0.78 Capillary glucose is reported daily: AM glucose: 140 Past 24h: 136 - 239 I reviewed the imaging, I read the report and discussed with the GROUP MANAGER. MRI brain with and without contrast (03/07): Postoperative changes are again identified compatible with a previous left-sided craniotomy as well as a left retrosigmoid occipital craniectomy with surgical mesh overlying the craniectomy site. There is an extracranial fluid collection similar to CSF in attenuation superficial to and surrounding the surgical mesh overlying left occipital craniectomy site most suggestive of a pseudomeningocele which has demonstrated interval enlargement when compared with the prior MRI dated 02/12/2018. Immediately deep to the surgical mesh overlying the left occipital craniectomy, there is a extra-axial fluid collection similar to CSF again measuring approximately 16 mm in thickness similar when compared with the prior study. There is smooth dural enhancement deep to the left craniotomy site as well as surrounding the left occipital craniectomy site likely postsurgical/reactive in etiology. The current diffusion-weighted images again demonstrate increased diffusion signal within the left aspect of the pontomesencephalic junction with less pronounced corresponding diminished signal on the ADC map. There is corresponding abnormal increased signal on the FLAIR and T2 weighted images. The diffusion-weighted images demonstrate new irregular enhancement within the brain stem in this region. The constellation of findings suggests an area of predominantly evolving subacute infarction within the brainstem with the possibility of a minimal amount superimposed more acute infarction not entirely excluded. There is a punctate focus of cortical enhancement noted along the posterior left parietal lobe as seen on axial post gadolinium T1 slice which corresponds to an area of abnormal diffusion restriction on the prior MRI dated 02/12/2018 raising the possibility of a small focus of enhancement related to an evolving area of subacute infarction. Areas of encephalomalacia and gliosis are again identified along the inferior medial cerebellar hemispheres bilaterally as well as within the left temporal lobe. There is again evidence of asymmetric extra-axial dural thickening enhancement along the left parasellar region/cavernous sinus and filling Meckel's cave on the left extending posteriorly along the left petrous apex, left aspect of the tentorium, and left posterior margin of the clivus which is similar in appearance when compared with 02/12/2018 suggestive of residual extra-axial dural based neoplasm/meningioma as well as postoperative granulation tissue/scar. There is new opacification of scattered left mastoid air cells. I reviewed the medications and discussed with the resident. Medical decision making: An elderly male with multiple medical problems, listed per importance: Recurrent meningeoma, s/p resection complicated with brainstem stroke. New MRI showed changes that are indicative of infarct evolution although perifocal ischemia cannot be excluded. Continue statin. MRSA pneumonia presumed from aspiration. Leukocytosis improved. No fever or desaturation. Per ID team linezolid is being given. Severe dysphagia, s/p gastrostomy (PEG) insertion. Dysphagia also can be from dyskinesia! He is craving for Coca. It can be given through PEG. Type 2 DM. In mid day there is a spike in glycemia! Could be from (possible) regular coca given per PEG. The feeding is continuous. Change glargine to 25 units BID. Continue lispro as ordered. COPD Breathing treatments. Was saturating optimally on ambient air. Oxygen can be discontinued. Anticipate discharge in 1-2 days. Electronic Signatures: Brian Raza) (Signed 09-Mar-2018 16:56) Authored: Service, Signature/Cosignature/Attestation Brooke Mullen ([facility] MANAGER) (Signed 09-Mar-2018 18:25) Authored: Subjective Data, Objective Data, Assessment and Plan Last Updated: 09-Mar-2018 18:25 by Brooke Mullen ([facility]) CBC Collected: 03/09/2018 Status: F Source: [facility] 7:37 AM [facility]OSPITALS REPOSITORY TYPE CODE TESTS RESULT OUT OF REFERENCE UNITS RANGE LAB WBCR(LOINC 4.4 - 11.3 x10E9/L ) WBC High 12.8 LAB NRBC(LOINC 0.0-0.0 /100 WBC ) NUCLEATED RBC 0.0 LAB RBCCT(LOIN 4.50 - 5.90 x10E12/L C) Low RBC 4.03 LAB HGB(LOINC) 13.5 - 17.5 g/dL Low HGB 11.3 LAB HCT(LOINC) 41.0 - 52.0 % Low HCT 36.7 LAB MCV(LOINC) 80 - 100 fL MCV 91 LAB MCHC2(LOIN 32.0 - 36.0 g/dL C) Low MCHC 30.8 LAB PLTCT(LOIN 150 - 450 x10E9/L C) PLT 345 LAB RDWCV(LOIN 11.5 - 14.5 % C) High RDW-CV 15.0 Performed By: #### CBC #### [facility] [address] [place] [address] RENAL FUNCTION PANEL Collected: 03/09/2018 Status: F Source: [facility] 7:37 AM [facility]ITALS REPOSITORY TYPE CODE TESTS RESULT OUT OF REFERENCE UNITS RANGE LAB GLU(LOINC) 74 - 99 mg/dL GLUCOSE High 161 LAB SOD(LOINC) 136 - 145 mmol/L Low SODIUM 134 LAB K(LOINC) 3.5 - 5.3 mmol/L POTASSIUM 5.2 LAB CHLOR(LOIN 98 - 107 mmol/L C) Low CHLORIDE 97 LAB BIC(LOINC) 21 - 32 mmol/L BICARBONATE 30 LAB ANGAP(LOIN 10 - 20 mmol/L C) ANION GAP 12 LAB UREA(LOINC 6 - 23 mg/dL ) UREA High NITROGEN 39 LAB CREA(LOINC 0.50 - 1.30 mg/dL ) CREATININE 0.78 LAB GFRFN(LOIN >60 mL/min/1.7 C) 3m2 GFR-NON AM. >60 LAB GFRAA(LOIN >60 mL/min/1.7 C) 3m2 GFR- AM. >60 Result Comment: CALCULATIONS OF ESTIMATED GFR ARE PERFORMED USING THE MDRD STUDY EQUATION FOR THE IDMS-TRACEABLE CREATININE METHODS. CLIN CHEM 2007;53:766-72 LAB CA(LOINC) 8.6 - 10.6 mg/dL CALCIUM 9.4 LAB PHOS(LOINC) 2.5 - 4.9 mg/dL PHOSPHORUS 3.2 Result Comment: The performance characteristics of phosphorus testing in heparinized plasma have been validated by the individual laboratory site where testing is performed. Testing on heparinized plasma is not approved by the FDA; however, such approval is not necessary. LAB ALB(LOINC) 3.4 - 5.0 g/dL Low ALBUMIN 2.6 Performed By: #### RENAL #### [facility] [address] [place] [address] GLUCOSE-POCT Collected: 03/09/2018 Status: F Source: [facility] 6:00 AM [facility] REPOSITORY TYPE CODE TESTS RESULT OUT OF RANGE REFERENCE UNITS LAB GLUP(LOINC) 74 - 99 mg/dL High 140 GLUCOSE-POCT Performed By: #### GLUPO #### [facility] [address] [place] [address] GLUCOSE-POCT Collected: 03/09/2018 Status: F Source: [facility] 12:09 AM [facility] REPOSITORY TYPE CODE TESTS RESULT OUT OF RANGE REFERENCE UNITS LAB GLUP(LOINC) 74 - 99 mg/dL High 169 GLUCOSE-POCT Performed By: #### GLUPO #### [facility] [address] [place] [address] GLUCOSE-POCT Collected: 03/08/2018 Status: F Source: [facility] 5:10 PM [facility] REPOSITORY TYPE CODE TESTS RESULT OUT OF RANGE REFERENCE UNITS LAB GLUP(LOINC) 74 - 99 mg/dL High 136 GLUCOSE-POCT Performed By: #### GLUPO #### [facility] [address] [place] [address] NUTRITION THERAPY-FOLLOW Observed: 03/08/2018 Status: UNK Source: [facility] UP 1:57 PM [facility]OS[facility]ITALS REPOSITORY Assessment Subjective/Objective: Note Type: Follow Up Note Authored by: Registered Dietitian Career Placement Specialist Pager Number: [phone] Nutrition Note: The patient is a 67 year old Male Hospital Day # 27 and POD #25 for left retrosigmoid craniotomy for tumor resection. During last nutrition visit, RDN recommended J-tube extension placement to try to reduce the risk of aspiration. GI consulted on 02/25. Pt is high risk aspiration of his oral secretions as well as TF. J-tube extension may or may not reduce the risk of aspiration and required pt to be intubated for the procedure. After discussion, decided that J-tube placement can be postponed until pt's respiratory status improves and if J-tube extension still requested. Pt is currently receiving Diabetic Source AC via PEG at goal rate of 80mL/hr. J-tube not placed. Objective Information: ---- Intake and Output ----- Mn/Dy/Year TimeIntakeOutputNet Mar 08, 2018 2:00 pm02-2 Mar 08, 2018 6:00 am02-2 Mar 07, 2018 10:00 [id number] The Intake and Output Totals for the last 24 hours are: IntakeOutputNet [id number] Recent Lab Results: Results: I have reviewed these laboratory results: Glucose_POCT Trending View [id number] 11:18:00 08-Mar-2018 05:40:00 08-Mar-2018 00:33:00 07-Mar-2018 17:25:00 07-Mar-2018 12:25:00 07-Mar-2018 06:36:00 [id number] H 161 H 214 H 74 167 H 272 H Renal Function Panel 07-Mar-2018 06:20:00 ResultValue Glucose, Serum 242 H NA 137 K 5.1 CL 97 L Bicarbonate, Serum 32 Anion Gap, Serum 13 BUN 47 H CREAT 0.85 GFR-Non >60 GFR- >60 Calcium, Serum 9.4 Phosphorus, Serum 3.2 ALB 2.5 L Nutrition Labs: Special Chemistry: 28-Feb-2018 03:53, Hemoglobin A1C, Level Hemoglobin A1C, Level 8.1 Diagnosis of Diabetes-Adults Non-Diabetic: < or = 5.6% Increased risk for developing diabetes: 5.7-6.4% Diagnostic of diabetes: > or = 6.5% . Monitoring of Diabetes Age (y) Therapeutic Goal (%) Adults: >18 <7.0 Pediatrics: 13-18 <7.5 7-12 <8.0 0- 6 7.5-8.5 [employer]. Diabetes Care 33(S1), May 2009. Current Active Medications/PN: Atorvastatin, Tablet (LIPITOR) DOSE = 40 mg Oral Daily, 11-Feb-2018 Sodium Chloride 0.9% Injectable Flush, via Midline Catheter Volume = 10 mL IntraVenous Flush Every 12 Hours Clinician Notes: When patient has double lumen, flush both lumens, 14-Feb-2018 Docusate Oral Liquid, (COLACE) DOSE = 100 mg Oral 2 Times a Day, 19-Feb-2018 Insulin Lispro (HumaLOG) Injectable, DOSE = 5 unit(s) SubCutaneous Every 6 Hours Clinician Notes: hold if tube feeds on hold, 01-Mar-2018 Insulin Lispro Moderate Corrective Scale, Give SubCutaneous Every 6 Hours Hypoglycemia Protocol Call LIP unit(s) if Blood Glucose is between 0 - 70 0 unit(s) if Blood Glucose is between 71 - 150 4 unit(s) if Blood Glucose is between 151 - 200 6 unit(s) if Blood Glucose is between 201 - 250 8 unit(s) if Blood Glucose is between 251 - 300 10 unit(s) if Blood Glucose is between 301 - 350 12 unit(s) if Blood Glucose is between 351 - 400 Notify Physician unit(s) if Blood Glucose is greater than 400, 01-Mar-2018 Insulin Glargine (Lantus) Injectable, DOSE = 40 unit(s) SubCutaneous At Bedtime Notes from Pharmacy: HIGH ALERT , 06-Mar-2018 Nutrition Orders: NPO, Routine ., 18-Feb-2018 Enteral Feeding (CMC), Diabetic Source AC Rate: ( Continuous & Cycle Only)- mL/hr: 80 ,<Continuous> Route: PEG (Percutaneous Endoscopic Gastric Tube), Continuous Special Instructions: Increase by 20ml every 6hrs until at goal rate., 27-Feb-2018 Enteral Feeding Water Flush, 60 ml, GT (Gastric Tube), Daily, Before Feeds, After Feeds, Between Feeds Special Instructions: before and after medication administration, 01-Mar-2018 Nutrition Focused Physical Findings: Other Physical Findings: Edema: +1, generalized Estimated Needs: kcals/day: 2279-7266 gms protein/day: 100+ mL fluid/day: 1 ml/kcal or per MD Nutrition Diagnosis: Diagnosis1 ongoing. Dx: Swallowing difficulties. related to recent craniotomy for tumor resection as evidenced by speech recs for pt to remain NPO with need for PEG placement. Additional Assessment Information: pt is at high risk for aspiration, may still benefit from continuous TF at this time. Nutrition Interventions: Individualized Nutrition Prescription Provided for: enteral nutrition Diet Education: not applicable Provided Nutrition Support Recommendations: TF at goal provides 2304kcals, 115grams protein, 192grams carbs and 1920mls volume (1566mls volume). Nutrition Goals: Goals: Nutrition Therapy: nutrition support is meeting 75% of nutrient needs, tube feed tolerance, Blood Glucose 80-180 mg/dl, electrolytes within normal limits, maintain stable weight Nutrition Goal Outcomes: goal partially met Outcomes Summary: Nutrition Therapy Progress: Nutrition Therapy: no change Outcome Summary: Nutritional Therapy: Swallowing Difficulties NUTRITION RECOMMENDATIONS: Recommendations: Continue current TF regimen Nutrition Therapy Recommendations: Nutrition Therapy Recommendations: see RDN note on 03/08 Dietitian Monitoring and Evaluation Plan: Monitoring and Evaluation Plan: Nutrition Support tolerance/adequacy, weight trend, stool output, labs Electronic Signatures: Candie Siddiqui (NOAH COBB) (Signed 08-Mar-2018 14:58) Authored: Assessment Subjective/Objective, Nutrition Focused Physical Findings, Estimated Needs, Nutrition Diagnosis, Nutrition Interventions, Nutrition Goals, Nutrition Recommendations, Dietitian Monitoring and Evaluation Plan Last Updated: 08-Mar-2018 14:58 by Candie Siddiqui (NOAH COBB) CBC Collected: 03/08/2018 Status: F Source: [facility] [address] [place] [address] REPOSITORY TYPE CODE TESTS RESULT OUT OF REFERENCE UNITS RANGE LAB WBCR(LOINC 4.4 - 11.3 x10E9/L ) WBC High 13.6 LAB NRBC(LOINC 0.0-0.0 /100 WBC ) NUCLEATED RBC 0.0 LAB RBCCT(LOIN 4.50 - 5.90 x10E12/L C) RBC 4.85 LAB HGB(LOINC) 13.5 - 17.5 g/dL Low HGB 13.3 LAB HCT(LOINC) 41.0 - 52.0 % HCT 44.9 LAB MCV(LOINC) 80 - 100 fL MCV 93 LAB MCHC2(LOIN 32.0 - 36.0 g/dL C) Low MCHC 29.6 LAB PLTCT(LOIN 150 - 450 x10E9/L C) PLT 324 LAB RDWCV(LOIN 11.5 - 14.5 % C) High RDW-CV 14.8 Performed By: #### CBC #### [facility] [address] [place] [address] RENAL FUNCTION PANEL Collected: 03/08/2018 Status: F Source: [facility] [address] [place] [address] REPOSITORY TYPE CODE TESTS RESULT OUT OF REFERENCE UNITS RANGE LAB GLU(LOINC) 74 - 99 mg/dL GLUCOSE High 220 LAB SOD(LOINC) 136 - 145 mmol/L SODIUM 136 LAB K(LOINC) 3.5 - 5.3 mmol/L POTASSIUM 5.2 LAB CHLOR(LOIN 98 - 107 mmol/L C) Low CHLORIDE 96 LAB BIC(LOINC) 21 - 32 mmol/L BICARBONATE 30 LAB ANGAP(LOIN 10 - 20 mmol/L C) ANION GAP 15 LAB UREA(LOINC 6 - 23 mg/dL ) UREA High NITROGEN 42 LAB CREA(LOINC 0.50 - 1.30 mg/dL ) CREATININE 0.80 LAB GFRFN(LOIN >60 mL/min/1.7 C) 3m2 GFR-NON AM. >60 LAB GFRAA(LOIN >60 mL/min/1.7 C) 3m2 GFR- AM. >60 Result Comment: CALCULATIONS OF ESTIMATED GFR ARE PERFORMED USING THE MDRD STUDY EQUATION FOR THE IDMS-TRACEABLE CREATININE METHODS. CLIN CHEM 2007;53:766-72 LAB CA(LOINC) 8.6 - 10.6 mg/dL CALCIUM 9.6 LAB PHOS(LOINC) 2.5 - 4.9 mg/dL PHOSPHORUS 3.6 Result Comment: The performance characteristics of phosphorus testing in heparinized plasma have been validated by the individual laboratory site where testing is performed. Testing on heparinized plasma is not approved by the FDA; however, such approval is not necessary. LAB ALB(LOINC) 3.4 - 5.0 g/dL Low ALBUMIN 2.9 Performed By: #### RENAL #### [facility] [id number] [place] [address] GLUCOSE-POCT Collected: 03/08/2018 Status: F Source: [facility] 11:18 AM [facility] REPOSITORY TYPE CODE TESTS RESULT OUT OF RANGE REFERENCE UNITS LAB GLUP(LOINC) 74 - 99 mg/dL High 239 GLUCOSE-POCT Performed By: #### GLUPO #### [facility] [address] [place] [address] DAILY PROGRESS Observed: 03/08/2018 Status: COMPLETED Source: [facility] NOTE-MEDICINE 11:12 AM [facility] REPOSITORY Service: Medicine Subjective Data: DIPESH BERMUDEZ is a 67 year old Male who is Hospital Day # 27 and POD #25 for left retrosigmoid craniotomy for tumor resection. Objective Data: Objective Information: ---- Intake and Output ----- Mn/Dy/Year TimeIntakeOutputNet Mar 08, 2018 6:00 am02-2 Mar 07, 2018 10:00 [id number] Mar 07, 2018 2:00 [id number] The Intake and Output Totals for the last 24 hours are: [id number] Physical Exam: Constitutional: awake and interactive Respiratory/Thorax: CTAB Cardiovascular: RRR Gastrointestinal: soft, nontender, nondistended, BSX4 PEG tube site intact no redness or drainage noted Extremities: NO edema noted Lymphatic: No significant lymphadenopathy Psychological: Appropriate mood and behavior Skin: intact Medication: Medications: Continuous Medications No continuous medications are active Scheduled Medications 1. Atorvastatin: 40 mg Oral Daily 2. Docusate Oral Liquid: 100 mg Oral 2 Times a Day 3. Esomeprazole Oral Packet: 40 mg NasoGastric Tube 2 Times a Day 4. Fluticasone 250 microgram -Salmeterol 50 microgram/ Inh: 1 inhalation Inhalation Every 12 Hours 5. Formoterol 20 microgram/ 2 mL Neb Soln: 2 mL Inhalation Every 12 Hours 6. guaiFENesin Oral Liquid: 400 mg Oral Every 6 Hours 7. Heparin SubCutaneous: 5000 unit(s) SubCutaneous Every 8 Hours 8. Insulin Glargine (Lantus) Injectable: 40 unit(s) SubCutaneous At Bedtime 9. Insulin Lispro (HumaLOG) Injectable: 5 unit(s) SubCutaneous Every 6 Hours 10. Insulin Lispro Moderate Corrective Scale: unit(s) SubCutaneous Every 6 Hours 11. Linezolid Oral Liquid: 600 mg PEG Tube Every 12 Hours 12. Nicotine 14 mg/ 24 hour TransDermal: 1 patch TransDermal Every 24 Hours 13. Nystatin Oral Liquid: 071010 unit(s) Oral Every 6 Hours 14. Petrolatum Topical: 1 application(s) Topical 2 Times a Day 15. Polyethylene Glycol: 17 gram(s) Oral Daily 16. Silodosin (NON - Formulary): 8 mg NasoGastric Tube Daily 17. Sodium Chloride 0.9% Injectable Flush: 10 mL IntraVenous Flush Every 12 Hours 18. Valproic Acid (Depakene) Oral Liquid: 250 mg PEG Tube Every 12 Hours PRN Medications 1. Acetaminophen: 650 mg Oral Every 6 Hours 2. Albuterol 2.5 mg/ 3 mL Nebulizer Soln: 3 mL Inhalation Every 2 Hours 3. Bisacodyl Rectal: 10 mg Rectal Daily 4. Dextrose 50% in Water Injectable: 25 gram(s) IntraVenous Push Every 15 Minutes 5. Fleet Adult (Sodium Phosphate) Rectal: 1 enema Rectal Daily 6. Glucagon Injectable: 1 mg IntraMuscular Every 15 Minutes 7. Heparin Flush 10 unit/ mL PF Injectable PRN: 5 mL IntraVenous Flush According to Flush Policy 8. hydrALAZINE Injectable: 10 mg IntraVenous Push Every 6 Hours 9. Lidocaine 1% Injectable (PICC KIT): 1 mL IntraDermal Once 10. Ondansetron Injectable: 4 mg IntraVenous Push Every 6 Hours 11. Polyethylene Glycol: 17 gram(s) Oral Daily Currently Suspended Medications 1. Albuterol 2.5 mg/ 3 mL Nebulizer Soln: 3 mL Inhalation Every 6 Hours 2. amLODIPine: 10 mg Oral Daily 3. hydroCHLOROthiazide: 25 mg Oral Daily 4. Lisinopril: 30 mg Oral Daily 5. oxyCODONE Immediate Release: 5 mg Oral Every 4 Hours 6. oxyCODONE Immediate Release: 10 mg Oral Every 4 Hours 7. Sennosides: 2 tablet(s) Oral Daily Recent Lab Results: Results: I have reviewed these laboratory results: Glucose_POCT Trending View [id number] 05:40:00 08-Mar-2018 00:33:00 Glucose-[id number] H 214 H Assessment and Plan: Assessment: This is a pleasant 67 year old male with history significant for HTN, type II DM, COPD, and meningioma s/p craniotomy with resection 2013 (done at [facility]) who was admitted for repeat surgical resection of meningioma as angiogram prior to admit had no targets for embolization. 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 Postoperative course complicated by dysphagia, brainstem infarction as well as hypoxia concerning for aspiration pneumonia necessitating transfer to ICU. Sputum grew MRSA. He ended up failing modified barium swallow by speech therapy. ENT was consulted and performed flexible laryngoscopy that noted generalized pharyngeal weakness with gross aspiration. GI was consulted and placed PEG tube on 02/21/18 with EGD at that time also noting grade D esophagitis. On 02/24/18 neurosurgery performed lumbar puncture that was unrevealing. Transferred from step down unit to regular nursing floor for further management by medicine service. in a shared visit with Meningioma s/p retrosigmoid craniectomy with postop brainstem infarction: LP cultures from 02/24 negative MRI Brain repeated - showing new irregular enhancement within the brainstem suggest evolving subacute infarction within the brainstem with the possibility of a minimal amount of superimposed more acute infarction - continue statin - continue PRN oxycodone - outpatient follow up with Dr. Cardoza in neurosurgery on 03/21/18 at 3:15 PM Aspiration/MRSA pneumonia: CT chest revealing significant worsening of now severe bronchial and bronchiolar wall thickening, worsening small airway disease, infectious bronchiolitis and likely aspiration - ID consulted, appreciate recs - change to linezolid 600 mg twice a day via peg tube with stop date of 03/13 - check CBC daily Persistent leukocytosis - improving WBC trending down to 16, awaiting labs from today c. diff pcr negative recent blood culture and urine culture no growth, afebrile LP culture from 02/24 no growth BUE duplex showing a left bascilic vein occlusive thrombus adjacent to the midline, plan to remove midline at the time of discharge, no anticoagulation is needed - continue linezolid 600 mg q12h stop date 03/13 - repeat cbc in am - monitor Dysphagia s/p PEG tube placement: - NPO - continue Diabetic Source tube feedings - needs repeat modified barium swallow in 4-6 weeks (per verbal recommendations by speech therapy) - oral hygiene Grade D esophagitis: - continue PPI BID x3 months - will need outpatient follow up in GI clinic in 3 months COPD: - continue albuterol nebulizers and Advair HTN: BP controlled - hold all schedule antihypertensives for now - continue PRN hydralazine Type II DM: uncontrolled - increases lantus to 40 units, this may need further titration - continue scheduled Lispro 5 units every 6 hours - continue Lispro sliding scale with hypoglycemia protocol DVT prophylaxis: - subcutaneous heparin Miscellaneous: - continue home valproic acid Code status: - DNAR/DNI Discharge disposition: - PT/OT recommending acute rehab -updated donta on wednesday evening regarding imaging and plan of care Signature/Cosignature/Attestation: Provider/Team Contact Info-Pager [phone] Attending Only - Shared Visit with Advanced Practice ProviderThis is a shared visit. I have reviewed the Advanced Practice Providers encounter note, approve the Advanced Practice Providers documentation, and provide the following additional information from my personal encounter. Comments/ Additional Findings No fever or desaturation reported past 24h. At the time we arrived in his room he was not wearing the oxygen cannula. Pulse oxymetry on ambient air was reading from 90 - 92% Had no complaints. Physical examination: Per the WHO definition of age the patient is a middle (older than stated) age male oriented in mild detectable physical distress. No signs of trauma in the head. Nonicteric sclera, round pupils symmetrically respond to light. Full range of motion in all directions. Mouth and throat mucosa dry, no ulcers or thrush. Edentulous, no dentures were present. Supple neck, no JVD, or bruit appreciated. Good air motion, no wheezing or rales heard. Nasal cannula in place, nose patent. Regular rhythm, clear S1/S2 no appreciable murmur or gallop. Abdomen round, large with normal bowel sounds, no tenderness or organomegaly appreciated. PEG in place, dry and clean exit site. Neuro exam showed mild R hemiparesis. He has buccal dyskinesia pretty severe. Musculoskeletal system without anatomical deformities, good strength in all major muscle groups. Extremities with no anatomical deformities, full range of motion in all big joints, no pitting edema in legs. No lymphadenopathy noted in the standard sites of examination. Skin has normal color and turgor. (In)coherent, did not appear depressed. No lab tests performed today below are the most recent ones. WBC: 16.2 Hctr: 38.7 Platelet: 302 BUN/creatinine: 47/0.85 Capillary glucose is reported daily: AM glucose: 161 Past 24h: 74 - 272 I reviewed the imaging, I read the report and discussed with the GROUP MANAGER. MRI brain with and without contrast (03/07): Postoperative changes are again identified compatible with a previous left-sided craniotomy as well as a left retrosigmoid occipital craniectomy with surgical mesh overlying the craniectomy site. There is an extracranial fluid collection similar to CSF in attenuation superficial to and surrounding the surgical mesh overlying left occipital craniectomy site most suggestive of a pseudomeningocele which has demonstrated interval enlargement when compared with the prior MRI dated 02/12/2018. Immediately deep to the surgical mesh overlying the left occipital craniectomy, there is a extra-axial fluid collection similar to CSF again measuring approximately 16 mm in thickness similar when compared with the prior study. There is smooth dural enhancement deep to the left craniotomy site as well as surrounding the left occipital craniectomy site likely postsurgical/reactive in etiology. The current diffusion-weighted images again demonstrate increased diffusion signal within the left aspect of the pontomesencephalic junction with less pronounced corresponding diminished signal on the ADC map. There is corresponding abnormal increased signal on the FLAIR and T2 weighted images. The diffusion-weighted images demonstrate new irregular enhancement within the brain stem in this region. The constellation of findings suggests an area of predominantly evolving subacute infarction within the brainstem with the possibility of a minimal amount superimposed more acute infarction not entirely excluded. There is a punctate focus of cortical enhancement noted along the posterior left parietal lobe as seen on axial post gadolinium T1 slice 10 of 28 which corresponds to an area of abnormal diffusion restriction on the prior MRI dated 02/12/2018 raising the possibility of a small focus of enhancement related to an evolving area of subacute infarction. Areas of encephalomalacia and gliosis are again identified along the inferior medial cerebellar hemispheres bilaterally as well as within the left temporal lobe. There is again evidence of asymmetric extra-axial dural thickening enhancement along the left parasellar region/cavernous sinus and filling Meckel's cave on the left extending posteriorly along the left petrous apex, left aspect of the tentorium, and left posterior margin of the clivus which is similar in appearance when compared with 02/12/2018 suggestive of residual extra-axial dural based neoplasm/meningioma as well as postoperative granulation tissue/scar. There is new opacification of scattered left mastoid air cells. I reviewed the medications and discussed with the resident. Medical decision making: An elderly male with multiple medical problems, listed per importance: Recurrent meningeoma, s/p resection complicated with brainstem stroke. New MRI showed changes that are indicative of infarct evolution although perifocal ischemia cannot be excluded. Continue statin. MRSA pneumonia presumed from aspiration. Per ID team linezolid is being given. No fever or desaturation. Severe dysphagia, s/p gastrostomy (PEG) insertion. Dysphagia also can be from dyskinesia! He is craving for Coca. It can be given through PEG. COPD Breathing treatments. Was saturating optimally on ambient air. Oxygen can be discontinued. Anticipate discharge in 1-2 days. Electronic Signatures: Brian Raza) (Signed 08-Mar-2018 14:38) Authored: Signature/Cosignature/Attestation Jr Jacobs ([employer] OPERATOR-GROUP MANAGER) (Signed 08-Mar-2018 11:46) Authored: Service, Subjective Data, Objective Data, Assessment and Plan, Signature/Cosignature/Attestation Last Updated: 08-Mar-2018 14:38 by Brian Raza) GLUCOSE-POCT Collected: 03/08/2018 Status: F Source: [facility] 5:40 AM [facility] REPOSITORY TYPE CODE TESTS RESULT OUT OF RANGE REFERENCE UNITS LAB GLUP(LOINC) 74 - 99 mg/dL High 161 GLUCOSE-POCT Performed By: #### GLUPO #### [facility] [address] [place] [address] GLUCOSE-POCT Collected: 03/08/2018 Status: F Source: [facility] 12:33 AM [facility] REPOSITORY TYPE CODE TESTS RESULT OUT OF RANGE REFERENCE UNITS LAB GLUP(LOINC) 74 - 99 mg/dL High 214 GLUCOSE-POCT Performed By: #### GLUPO #### [facility] [address] [place] [address] GLUCOSE-POCT Collected: 03/07/2018 Status: F Source: [facility] 5:25 PM [facility] REPOSITORY TYPE CODE TESTS RESULT OUT OF RANGE REFERENCE UNITS LAB GLUP(LOINC) 74 - 99 mg/dL 74 GLUCOSE-POCT Performed By: #### GLUPO #### [facility] [address] [place] [address] GLUCOSE-POCT Collected: 03/07/2018 Status: F Source: [facility] 12:25 PM [facility] REPOSITORY TYPE CODE TESTS RESULT OUT OF RANGE REFERENCE UNITS LAB GLUP(LOINC) 74 - 99 mg/dL High 167 GLUCOSE-POCT Performed By: #### GLUPO #### [facility] [address] [place] [address] DAILY PROGRESS Observed: 03/07/2018 Status: COMPLETED Source: [facility] 10:19 AM [facility] REPOSITORY Service: Medicine Subjective Data: DIPESH BERMUDEZ is a 67 year old Male who is Hospital Day # 26 and POD #24 for left retrosigmoid craniotomy for tumor resection. Objective Data: Objective Information: ---- Intake and Output ----- Mn/Dy/Year TimeIntakeOutputNet Mar 06, 2018 10:00 [id number] Mar 06, 2018 2:00 [id number] The Intake and Output Totals for the last 24 hours are: IntakeOutputNet [id number] Physical Exam: Constitutional: awake and interactive Respiratory/Thorax: CTAB Cardiovascular: RRR Gastrointestinal: soft, nontender, nondistended, BSX4 PEG tube site intact no redness or drainage noted Extremities: NO edema noted Lymphatic: No significant lymphadenopathy Psychological: Appropriate mood and behavior Skin: intact Medication: Medications: Continuous Medications No continuous medications are active Scheduled Medications 1. Atorvastatin: 40 mg Oral Daily 2. Docusate Oral Liquid: 100 mg Oral 2 Times a Day 3. Esomeprazole Oral Packet: 40 mg NasoGastric Tube 2 Times a Day 4. Fluticasone 250 microgram -Salmeterol 50 microgram/ Inh: 1 inhalation Inhalation Every 12 Hours 5. Formoterol 20 microgram/ 2 mL Neb Soln: 2 mL Inhalation Every 12 Hours 6. guaiFENesin Oral Liquid: 400 mg Oral Every 6 Hours 7. Heparin SubCutaneous: 5000 unit(s) SubCutaneous Every 8 Hours 8. Insulin Glargine (Lantus) Injectable: 40 unit(s) SubCutaneous At Bedtime 9. Insulin Lispro (HumaLOG) Injectable: 5 unit(s) SubCutaneous Every 6 Hours 10. Insulin Lispro Moderate Corrective Scale: unit(s) SubCutaneous Every 6 Hours 11. Linezolid Oral Liquid: 600 mg PEG Tube Every 12 Hours 12. Nicotine 14 mg/ 24 hour TransDermal: 1 patch TransDermal Every 24 Hours 13. Nystatin Oral Liquid: [id number] unit(s) Oral Every 6 Hours 14. Petrolatum Topical: 1 application(s) Topical 2 Times a Day 15. Polyethylene Glycol: 17 gram(s) Oral Daily 16. Silodosin (NON - Formulary): 8 mg NasoGastric Tube Daily 17. Sodium Chloride 0.9% Injectable Flush: 10 mL IntraVenous Flush Every 12 Hours 18. Valproic Acid (Depakene) Oral Liquid: 250 mg PEG Tube Every 12 Hours PRN Medications 1. Acetaminophen: 650 mg Oral Every 6 Hours 2. Albuterol 2.5 mg/ 3 mL Nebulizer Soln: 3 mL Inhalation Every 2 Hours 3. Bisacodyl Rectal: 10 mg Rectal Daily 4. Dextrose 50% in Water Injectable: 25 gram(s) IntraVenous Push Every 15 Minutes 5. Fleet Adult (Sodium Phosphate) Rectal: 1 enema Rectal Daily 6. Glucagon Injectable: 1 mg IntraMuscular Every 15 Minutes 7. Heparin Flush 10 unit/ mL PF Injectable PRN: 5 mL IntraVenous Flush According to Flush Policy 8. hydrALAZINE Injectable: 10 mg IntraVenous Push Every 6 Hours 9. Lidocaine 1% Injectable (PICC KIT): 1 mL IntraDermal Once 10. Ondansetron Injectable: 4 mg IntraVenous Push Every 6 Hours 11. Polyethylene Glycol: 17 gram(s) Oral Daily Currently Suspended Medications 1. Albuterol 2.5 mg/ 3 mL Nebulizer Soln: 3 mL Inhalation Every 6 Hours 2. amLODIPine: 10 mg Oral Daily 3. hydroCHLOROthiazide: 25 mg Oral Daily 4. Lisinopril: 30 mg Oral Daily 5. oxyCODONE Immediate Release: 5 mg Oral Every 4 Hours 6. oxyCODONE Immediate Release: 10 mg Oral Every 4 Hours 7. Sennosides: 2 tablet(s) Oral Daily Recent Lab Results: Results: I have reviewed these laboratory results: Glucose_POCT Trending View [id number] 06:36:00 07-Mar-2018 00:02:00 Glucose-[id number] H 136 H Renal Function Panel 07-Mar-2018 06:20:00 ResultValue Glucose, Serum 242 H NA 137 K 5.1 CL 97 L Bicarbonate, Serum 32 Anion Gap, Serum 13 BUN 47 H CREAT 0.85 GFR-Non >60 GFR- >60 Calcium, Serum 9.4 Phosphorus, Serum 3.2 ALB 2.5 L Complete Blood Count + Differential 07-Mar-2018 06:20:00 ResultValue White Blood Cell Count 16.2 H Nucleated Erythrocyte Count 0.0 Red Blood Cell Count 4.17 L HGB 11.7 L HCT 38.7 L MCV 93 MCHC 30.2 L PLT 302 RDW-CV 14.9 H Neutrophil % 76.4 Immature Granulocytes % 0.8 Lymphocyte % 11.9 Monocyte % 6.0 Eosinophil % 4.3 Basophil % 0.6 Neutrophil Count 12.37 H Lymphocyte Count 1.93 Monocyte Count 0.98 Eosinophil Count 0.69 Basophil Count 0.10 Radiology Results: Results: Impression: Postoperative changes are again identified compatible with a previous left-sided craniotomy as well as a left retrosigmoid occipital craniectomy with surgical mesh overlying the craniectomy site. There is an extracranial fluid collection similar to CSF in attenuation superficial to and surrounding the surgical mesh overlying left occipital craniectomy site most suggestive of a pseudomeningocele which has demonstrated interval enlargement when compared with the prior MRI dated 02/12/2018. Immediately deep to the surgical mesh overlying the left occipital craniectomy, there is a extra-axial fluid collection similar to CSF again measuring approximately 16 mm in thickness similar when compared with the prior study. There is smooth dural enhancement deep to the left craniotomy site as well as surrounding the left occipital craniectomy site likely postsurgical/reactive in etiology. The current diffusion-weighted images againdemonstrate increased diffusion signal within the left aspect of the pontomesencephalic junction with less pronounced corresponding diminished signal on the ADC map. There is corresponding abnormal increased signal on the FLAIR and T2 weighted images. The diffusion-weighted images demonstrate new irregular enhancement within the brain stem in this region. The constellation of findings suggests an area of predominantly evolving subacute infarction within the brainstem with the possibility of a minimal amount superimposed more acute infarction not entirely excluded. There is a punctate focus of cortical enhancement noted along the posterior left parietal lobe as seen on axial post gadolinium T1 slice 10 of 28 which corresponds aurora area of abnormal diffusion restriction on the prior MRI dated 02/12/2018 raising the possibility of a small focus of enhancement related to an evolving area of subacute infarction. Areas of encephalomalacia and gliosis are again identified along the inferior medial cerebellar hemispheres bilaterally as well as within the left temporal lobe. There is again evidence of asymmetric extra-axial dural thickening enhancement along the left parasellar region/cavernous sinus and filling Meckel's cave on the left extending posteriorly along the left petrous apex, left aspect of the tentorium, and left posterior margin of the clivus which is similar in appearance when compared with 02/12/2018 suggestive of residual extra-axial dural based neoplasm/meningioma as well as postoperative granulation tissue/scar. There is new opacification of scattered left mastoid air cells. The study was interpreted at [facility]. MRI Brain w/wo Contrast [Mar 07 2018 9:39AM] Impression: Occlusive thrombus of the left basilic vein adjacent to the midline catheter. Nurse practitioner Martin was made aware of these findings by residential roofer Tyrese Avendano MD at 11:59 p.m. on 03/06/2018 with read back verification. Ultrasound Duplex Upper Extremity Veins Bilateral [Mar 07 2018 6:38AM] Impression: No sonographic evidence for deep vein thrombosis within the evaluated veins of the bilateral lower extremity. Nurse practitioner Martin was made aware of these findings by residential roofer Tyrese Avendano MD at 11:59 p.m. on 03/06/2018 with read back verification. Ultrasound Duplex Lower Extremity Veins Bilateral [Mar 07 2018 6:37AM] Assessment and Plan: Assessment: This is a pleasant 67 year old male with history significant for HTN, type II DM, COPD, and meningioma s/p craniotomy with resection 2013 (done at [facility]) who was admitted for repeat surgical resection of meningioma as angiogram prior to admit had no targets for embolization. 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 Postoperative course complicated by dysphagia, brainstem infarction as well as hypoxia concerning for aspiration pneumonia necessitating transfer to ICU. Sputum grew MRSA. He ended up failing modified barium swallow by speech therapy. ENT was consulted and performed flexible laryngoscopy that noted generalized pharyngeal weakness with gross aspiration. GI was consulted and placed PEG tube on 02/21/18 with EGD at that time also noting grade D esophagitis. On 02/24/18 neurosurgery performed lumbar puncture that was unrevealing. Transferred from step down unit to regular nursing floor for further management by medicine service. in a shared visit with Meningioma s/p retrosigmoid craniectomy with postop brainstem infarction: LP cultures from 02/24 negative MRI Brain repeated - showing new irregular enhancement within the brainstem suggest evolving subacute infarction within the brainstem with the possibility of a minimal amount of superimposed more acute infarction - continue statin - continue PRN oxycodone - outpatient follow up with Dr. Cardoza in neurosurgery on 03/21/18 at 3:15 PM Aspiration/MRSA pneumonia: CT chest revealing significant worsening of now severe bronchial and bronchiolar wall thickening, worsening small airway disease, infectious bronchiolitis and likely aspiration - ID consulted, appreciate recs - change to linezolid 600 mg twice a day via peg tube with stop date of 03/13 - check CBC daily Persistent leukocytosis - improving WBC trending down to 16 c. diff pcr negative recent blood culture and urine culture no growth, afebrile LP culture from 02/24 no growth - continue linezolid 600 mg q12h stop date 03/13 - repeat cbc in am - monitor Dysphagia s/p PEG tube placement: - NPO - continue Diabetic Source tube feedings - needs repeat modified barium swallow in 4-6 weeks (per verbal recommendations by speech therapy) - oral hygiene Grade D esophagitis: - continue PPI BID x3 months - will need outpatient follow up in GI clinic in 3 months COPD: - continue albuterol nebulizers and Advair HTN: BP controlled - hold all schedule antihypertensives for now - continue PRN hydralazine Type II DM: uncontrolled BS 272 - 167 looking at trend he has been elevated - increase lantus to 40 units - continue scheduled Lispro 5 units every 6 hours - continue Lispro sliding scale with hypoglycemia protocol DVT prophylaxis: - subcutaneous heparin Miscellaneous: - continue home valproic acid Code status: - DNAR/DNI Discharge disposition: - PT/OT recommending acute rehab - given leukocytosis and ID consulted, possible discharge wednesday Signature/Cosignature/Attestation: Provider/Team Contact Info-Pager [phone] Attending Only - Shared Visit with Advanced Practice ProviderThis is a shared visit. I have reviewed the Advanced Practice Providers encounter note, approve the Advanced Practice Providers documentation, and provide the following additional information from my personal encounter. Comments/ Additional Findings I [place] [facility] Mr. Bermudez Suffered a brainstem stroke which left into muscle with severe dysphagia. Gastrostomy (PEG) tube was given. Per the previous attending's information patient's POA worried because he appeared less interactive. MRI was requested later on completed. At the time we arrived in his room he was awake, initially did not talk later continued to talk quite coherently. Denied SOB or pain, felt thirsty and wanted to be allowed to drink Coca. Physical examination: Per the WHO definition of age the patient is a middle (older than stated) age male oriented in mild detectable physical distress. No signs of trauma in the head. Nonicteric sclera, round pupils symmetrically respond to light. Full range of motion in all directions. Mouth and throat mucosa dry, no ulcers or thrush. Edentulous, no dentures were present. Supple neck, no JVD, or bruit appreciated. Good air motion, no wheezing or rales heard. Nasal cannula in place, nose patent. Regular rhythm, clear S1/S2 no appreciable murmur or gallop. Abdomen round, large with normal bowel sounds, no tenderness or organomegaly appreciated. PEG in place, dry and clean exit site. Neuro exam showed mild R hemiparesis. He has buccal dyskinesia pretty severe. Musculoskeletal system without anatomical deformities, good strength in all major muscle groups. Extremities with no anatomical deformities, full range of motion in all big joints, no pitting edema in legs. No lymphadenopathy noted in the standard sites of examination. Skin has normal color and turgor. Coherent, did not appear depressed. I reviewed the most recent labs and discussed with the GROUP MANAGER. WBC: 16.2 Hctr: 38.7 Platelet: 302 BUN/creatinine: 47/0.85 Capillary glucose is reported daily: AM glucose: 272 Past 24h: I reviewed the imaging, I read the report and discussed with the GROUP MANAGER. MRI brain with and without contrast (03/07): Postoperative changes are again identified compatible with a previous left-sided craniotomy as well as a left retrosigmoid occipital craniectomy with surgical mesh overlying the craniectomy site. There is an extracranial fluid collection similar to CSF in attenuation superficial to and surrounding the surgical mesh overlying left occipital craniectomy site most suggestive of a pseudomeningocele which has demonstrated interval enlargement when compared with the prior MRI dated 02/12/2018. Immediately deep to the surgical mesh overlying the left occipital craniectomy, there is a extra-axial fluid collection similar to CSF again measuring approximately 16 mm in thickness similar when compared with the prior study. There is smooth dural enhancement deep to the left craniotomy site as well as surrounding the left occipital craniectomy site likely postsurgical/reactive in etiology. The current diffusion-weighted images again demonstrate increased diffusion signal within the left aspect of the pontomesencephalic junction with less pronounced corresponding diminished signal on the ADC map. There is corresponding abnormal increased signal on the FLAIR and T2 weighted images. The diffusion-weighted images demonstrate new irregular enhancement within the brain stem in this region. The constellation of findings suggests an area of predominantly evolving subacute infarction within the brainstem with the possibility of a minimal amount superimposed more acute infarction not entirely excluded. There is a punctate focus of cortical enhancement noted along the posterior left parietal lobe as seen on axial post gadolinium T1 slice 10 of 28 which corresponds to an area of abnormal diffusion restriction on the prior MRI dated 02/12/2018 raising the possibility of a small focus of enhancement related to an evolving area of subacute infarction. Areas of encephalomalacia and gliosis are again identified along the inferior medial cerebellar hemispheres bilaterally as well as within the left temporal lobe. There is again evidence of asymmetric extra-axial dural thickening enhancement along the left parasellar region/cavernous sinus and filling Meckel's cave on the left extending posteriorly along the left petrous apex, left aspect of the tentorium, and left posterior margin of the clivus which is similar in appearance when compared with 02/12/2018 suggestive of residual extra-axial dural based neoplasm/meningioma as well as postoperative granulation tissue/scar. There is new opacification of scattered left mastoid air cells. I reviewed the medications and discussed with the resident. Medical decision making: An elderly male with multiple medical problems, listed per improtance: Recurrent meningeoma, s/p resection complicated with brainstem stroke. New MRI showed changes that are indicative of infarct evolution although perifocus ischemia cannot be excluded. Continue statin. MRSA pneumonia presumed from aspiration. Per ID team linezolid is being given. Leukocytosis is still high. No fever or desaturation. Severe dysphagia, s/p gastrostomy (PEG) insertion. He is craving for Coca. It can be given through PEG. COPD Breathing treatments. Electronic Signatures: Brian Raza) (Signed 07-Mar-2018 22:58) Authored: Signature/Cosignature/Attestation Jr Jacobs ([employer] OPERATOR-GROUP MANAGER) (Signed 07-Mar-2018 16:32) Authored: Service, Subjective Data, Objective Data, Assessment and Plan, Signature/Cosignature/Attestation Last Updated: 07-Mar-2018 22:58 by Brian Raza) NR MRI BRAIN W/WO Observed: 03/07/2018 Status: F Source: UNIVERS[facility] CONTRAST 7:55 AM HOSPITALS REPOSITORY Patient Name: DIPESH BERMUDEZ STUDY: NR MRI BRAIN W/WO CONTRAST; 03/07/2018 7:55 am INDICATION: Signs/Symptoms: s/p craniotomy, worsening mental status., Lie Flat: Yes, Pre Med: No. COMPARISON: None. ACCESSION NUMBER(S): [id number] ORDERING CLINICIAN: LAVON PEDRO TECHNIQUE: Axial diffusion, axial T2, axial FLAIR, axial T1, post gadolinium volumetric T1, as well as post gadolinium axial T1 weighted MRI images of the brain were obtained. The patient received 18 mL of MultiHance gadolinium intravenously. FINDINGS: Postoperative changes are again identified compatible with a previous left-sided craniotomy as well as a left retrosigmoid occipital craniectomy with surgical mesh overlying the craniectomy site. There is an extracranial fluid collection similar to CSF in attenuation superficial to and surrounding the surgical mesh overlying left occipital craniectomy site most suggestive of a pseudomeningocele which has demonstrated interval enlargement when compared with the prior MRI dated 02/12/2018. Immediately deep to the surgical mesh overlying the left occipital craniectomy, there is a extra-axial fluid collection similar to CSF again measuring approximately 16 mm in thickness similar when compared with the prior study. There is smooth dural enhancement deep to the left craniotomy site as well as surrounding the left occipital craniectomy site likely postsurgical/reactive in etiology. The current diffusion-weighted images again demonstrate increased diffusion signal within the left aspect of the pontomesencephalic junction with less pronounced corresponding diminished signal on the ADC map. There is corresponding abnormal increased signal on the FLAIR and T2 weighted images. The diffusion-weighted images demonstrate new irregular enhancement within the brain stem in this region. The constellation of findings suggests an area of predominantly evolving subacute infarction within the brainstem with the possibility of a minimal amount superimposed more acute infarction not entirely excluded. There is a punctate focus of cortical enhancement noted along the posterior left parietal lobe as seen on axial post gadolinium T1 slice 10 of 28 which corresponds to an area of abnormal diffusion restriction on the prior MRI dated 02/12/2018 raising the possibility of a small focus of enhancement related to an evolving area of subacute infarction. Areas of encephalomalacia and gliosis are again identified along the inferior medial cerebellar hemispheres bilaterally as well as within the left temporal lobe. There is again evidence of asymmetric extra-axial dural thickening enhancement along the left parasellar region/cavernous sinus and filling Meckel's cave on the left extending posteriorly along the left petrous apex, left aspect of the tentorium, and left posterior margin of the clivus which is similar in appearance when compared with 02/12/2018 suggestive of residual extra-axial dural based neoplasm/meningioma as well as postoperative granulation tissue/scar. There has been interval resolution of the previously noted pneumocephalus. There is again evidence of moderate brain parenchymal volume loss. Scattered nonspecific white matter changes are again noted within the cerebral hemispheres bilaterally which while nonspecific, given the patient's age, likely represent sequelae of small vessel ischemic change. Additional foci of bright signal on the T2 weighted images are again noted within the basal ganglia and thalami bilaterally suggesting incidental mildly prominent perivascular spaces and/or scattered more remote lacunar infarctions. There is opacification of left ethmoid air cell. Minimal mucosal thickening is noted within additional scattered ethmoid air cells. There is new opacification of scattered left mastoid air cells. IMPRESSION: Postoperative changes are again identified compatible with a previous left-sided craniotomy as well as a left retrosigmoid occipital craniectomy with surgical mesh overlying the craniectomy site. There is an extracranial fluid collection similar to CSF in attenuation superficial to and surrounding the surgical mesh overlying left occipital craniectomy site most suggestive of a pseudomeningocele which has demonstrated interval enlargement when compared with the prior MRI dated 02/12/2018. Immediately deep to the surgical mesh overlying the left occipital craniectomy, there is a extra-axial fluid collection similar to CSF again measuring approximately 16 mm in thickness similar when compared with the prior study. There is smooth dural enhancement deep to the left craniotomy site as well as surrounding the left occipital craniectomy site likely postsurgical/reactive in etiology. The current diffusion-weighted images again demonstrate increased diffusion signal within the left aspect of the pontomesencephalic junction with less pronounced corresponding diminished signal on the ADC map. There is corresponding abnormal increased signal on the FLAIR and T2 weighted images. The diffusion-weighted images demonstrate new irregular enhancement within the brain stem in this region. The constellation of findings suggests an area of predominantly evolving subacute infarction within the brainstem with the possibility of a minimal amount superimposed more acute infarction not entirely excluded. There is a punctate focus of cortical enhancement noted along the posterior left parietal lobe as seen on axial post gadolinium T1 slice 10 of 28 which corresponds to an area of abnormal diffusion restriction on the prior MRI dated 02/12/2018 raising the possibility of a small focus of enhancement related to an evolving area of subacute infarction. Areas of encephalomalacia and gliosis are again identified along the inferior medial cerebellar hemispheres bilaterally as well as within the left temporal lobe. There is again evidence of asymmetric extra-axial dural thickening enhancement along the left parasellar region/cavernous sinus and filling Meckel's cave on the left extending posteriorly along the left petrous apex, left aspect of the tentorium, and left posterior margin of the clivus which is similar in appearance when compared with 02/12/2018 suggestive of residual extra-axial dural based neoplasm/meningioma as well as postoperative granulation tissue/scar. There is new opacification of scattered left mastoid air cells. The study was interpreted at [facility]. Electronically signed by: CELIA MCPHERSON MD CLINICAL EVENT Observed: 03/07/2018 Status: UNK Source: [facility] [id number] 7:52 AM HOSPITALS REPOSITORY Event: Topic: Sign-off Details: No acute neurosurgical intervention or additional neuroimaging needed at this time. Thank you for allowing us to participate in the care of this patient. Will sign off at this time. Please page with any questions or concerns. Provider / Team Contact Information: Provider/Team Contact Info-Pager Number: [phone] Electronic Signatures: Norman Daniel ( (Resident)) (Signed 07-Mar-2018 07:52) Authored: Event, Provider / Team Contact Information Last Updated: 07-Mar-2018 07:52 by Norman Daniel (Resident)) GLUCOSE-POCT Collected: 03/07/2018 Status: F Source: [facility] 6:36 AM HOSPITALS REPOSITORY TYPE CODE TESTS RESULT OUT OF RANGE REFERENCE UNITS LAB GLUP(LOINC) 74 - 99 mg/dL High 272 GLUCOSE-POCT Performed By: #### GLUPO #### [facility] [address] [place] [address] CBC AND DIFFERENTIAL Collected: 03/07/2018 Status: F Source: [facility] 6:20 AM HOSPITALS REPOSITORY TYPE CODE TESTS RESULT OUT OF REFERENCE UNITS RANGE LAB WBCR(LOINC 4.4 - 11.3 x10E9/L ) WBC High 16.2 LAB NRBC(LOINC 0.0-0.0 /100 WBC ) NUCLEATED RBC 0.0 LAB RBCCT(LOIN 4.50 - 5.90 x10E12/L C) Low RBC 4.17 LAB HGB(LOINC) 13.5 - 17.5 g/dL Low HGB 11.7 LAB HCT(LOINC) 41.0 - 52.0 % Low HCT 38.7 LAB MCV(LOINC) 80 - 100 fL MCV 93 LAB MCHC2(LOIN 32.0 - 36.0 g/dL C) Low MCHC 30.2 LAB PLTCT(LOIN 150 - 450 x10E9/L C) PLT 302 LAB RDWCV(LOIN 11.5 - 14.5 % C) RDW-CV High 14.9 LAB NEUT(LOINC 40.0 - 80.0 % ) % NEUTROPHIL 76.4 LAB IG(LOINC) 0.0 - 0.9 % % AUTOMATED 0.8 IMMATURE GRAN Result Comment: Percent differential counts (%) should be interpreted in the context of the absolute cell counts (cells/L). LAB LYMPH(LOINC) 13.0 - % 44.0 % LYMPHOCYTE 11.9 LAB MONO(LOINC) 2.0 - 10.0 % % MONOCYTE 6.0 LAB EOS(LOINC) 0.0 - 6.0 % % EOSINOPHIL 4.3 LAB BASO(LOINC) 0.0 - 2.0 % % BASOPHIL 0.6 LAB #NEUT(LOINC) 1.20 - x10E9/L 7.70 NEUTROPHIL High 12.37 LAB #LYMP(LOINC) 1.20 - x10E9/L 4.80 LYMPHOCYTE 1.93 LAB #MONO(LOINC) 0.10 - x10E9/L 1.00 MONOCYTE 0.98 LAB #EOS(LOINC) 0.00 - x10E9/L 0.70 EOSINOPHIL 0.69 LAB #BASO(LOINC) 0.00 - x10E9/L 0.10 BASOPHIL 0.10 Performed By: #### CBCDF #### [facility] [address] [place] [address] RENAL FUNCTION PANEL Collected: 03/07/2018 Status: F Source: [facility] 6:20 AM HOSPITALS REPOSITORY TYPE CODE TESTS RESULT OUT OF REFERENCE UNITS RANGE LAB GLU(LOINC) 74 - 99 mg/dL GLUCOSE High 242 LAB SOD(LOINC) 136 - 145 mmol/L SODIUM 137 LAB K(LOINC) 3.5 - 5.3 mmol/L POTASSIUM 5.1 LAB CHLOR(LOIN 98 - 107 mmol/L C) Low CHLORIDE 97 LAB BIC(LOINC) 21 - 32 mmol/L BICARBONATE 32 LAB ANGAP(LOIN 10 - 20 mmol/L C) ANION GAP 13 LAB UREA(LOINC 6 - 23 mg/dL ) UREA High NITROGEN 47 LAB CREA(LOINC 0.50 - 1.30 mg/dL ) CREATININE 0.85 LAB GFRFN(LOIN >60 mL/min/1.7 C) 3m2 GFR-NON AM. >60 LAB GFRAA(LOIN >60 mL/min/1.7 C) 3m2 GFR- AM. >60 Result Comment: CALCULATIONS OF ESTIMATED GFR ARE PERFORMED USING THE MDRD STUDY EQUATION FOR THE IDMS-TRACEABLE CREATININE METHODS. CLIN CHEM 2007;53:766-72 LAB CA(LOINC) 8.6 - 10.6 mg/dL CALCIUM 9.4 LAB PHOS(LOINC) 2.5 - 4.9 mg/dL PHOSPHORUS 3.2 Result Comment: The performance characteristics of phosphorus testing in heparinized plasma have been validated by the individual laboratory site where testing is performed. Testing on heparinized plasma is not approved by the FDA; however, such approval is not necessary. LAB ALB(LOINC) 3.4 - 5.0 g/dL Low ALBUMIN 2.5 Performed By: #### RENAL #### [facility] [address] [place] [address] CLINICAL EVENT NOTE Observed: 03/07/2018 Status: UNK Source: [facility] 1:18 AM HOSPITALS REPOSITORY Event: Details: Notified by radiology UE doppler (wet read) -> Occlusive thrombus of the left basilic vein adjacent to the midline catheter. Pt. POD #23 for left retrosigmoid craniotomy for tumor resection on SQ heparin TID. Discussed with [facility] () whom reviewed imaging and chart -> advised to hold on initiating AC and discuss with primary team in am and neuro surgery if AC is indicated. Of note, LE doppler negative, UE doppler negative, except noted basilic vein thrombus. Provider / Team Contact Information: Provider/Team Contact Info-Pager Number: [phone] Electronic Signatures: Preeti Salazar ([employer] OPERATOR-GROUP MANAGER) (Signed 07-Mar-2018 01:27) Authored: Event, Provider / Team Contact Information Last Updated: 07-Mar-2018 01:27 by Preeti Salazar ([employer] OPERATOR-GROUP MANAGER) GLUCOSE-POCT Collected: 03/07/2018 Status: F Source: [facility] 12:02 AM HOSPITALS REPOSITORY TYPE CODE TESTS RESULT OUT OF RANGE REFERENCE UNITS LAB GLUP(LOINC) 74 - 99 mg/dL High 136 GLUCOSE-POCT Performed By: #### GLUPO #### [facility] [address] [place] [address] DUPLEX UPPER EXTREMITY Observed: 03/06/2018 Status: F Source: UNIVERSITY VEINS, BILATERAL 10:36 PM HOSPITALS REPOSITORY Patient Name: DIPESH BERMUDEZ STUDY: DUPLEX UPPER EXTREMITY VEINS, BILATERAL; 03/06/2018 10:36 pm INDICATION: Signs/Symptoms: edema. COMPARISON: None. ACCESSION NUMBER(S): [id number] ORDERING CLINICIAN: DANIELLE CORRAL TECHNIQUE: Vascular ultrasound of the bilateral upper extremities was performed. Evaluation was performed with grayscale, color, and spectral Doppler. When possible, compression views of the evaluated veins was also performed. FINDINGS: RIGHT UPPER EXTREMITY: Evaluation of the visualized portions of the right internal jugular, innominate, subclavian, axillary, brachial, cephalic, and basilic veins was performed. There is normal respiratory variation, normal compressibility, as well as normal color doppler signal in the visualized vessels. There is no evidence of thrombus. LEFT UPPER EXTREMITY: Evaluation of the visualized portions of the left internal jugular, innominate, subclavian, axillary, brachial, cephalic, and basilic veins was performed. There is an occlusive thrombus of the left basilic vein adjacent to the midline catheter. Otherwise, there is normal respiratory variation, normal compressibility, as well as normal color doppler signal in the visualized vessels.. IMPRESSION: Occlusive thrombus of the left basilic vein adjacent to the midline catheter. Nurse practitioner Martin was made aware of these findings by residential roofer Tyrese Avendano MD at 11:59 p.m. on 03/06/2018 with read back verification. I personally reviewed the images/study and I agree with the findings as stated. This study was interpreted at [place], [place]. Electronically signed by: CHASITY BATISTA MD DUPLEX LOWER EXTREMITY Observed: 03/06/2018 Status: F Source: UNIVERSITY VEINS, BILATERAL 9:54 PM HOSPITALS REPOSITORY Patient Name: DIPESH BERMUDEZ STUDY: DUPLEX LOWER EXTREMITY VEINS, BILATERAL; 03/06/2018 9:54 pm INDICATION: Signs/Symptoms: edema. COMPARISON: None. ACCESSION NUMBER(S): [id number] ORDERING CLINICIAN: DANIELLE CORRAL TECHNIQUE: Vascular ultrasound of the bilateral lower extremities was performed. Real-time compression views as well as Slaughter scale, color Doppler and spectral Doppler waveform analysis was performed. FINDINGS: Evaluation of the visualized portions of the bilateral common femoral vein, proximal, mid, and distal femoral vein, and popliteal vein were performed. Evaluation of the visualized portions of the posterior tibial and peroneal veins were also performed. Limitations: None The evaluated veins demonstrate normal compressibility. There is intact venous flow demonstrating normal respiratory variability and normal augmentation of flow with calf compression. Therefore, there is no ultrasonographic evidence for deep vein thrombosis within the evaluated veins. Respiratory variation and augmentation to calf pressure was noted. IMPRESSION: No sonographic evidence for deep vein thrombosis within the evaluated veins of the bilateral lower extremity. Nurse practitioner Martin was made aware of these findings by residential roofer Tyrese Avendano MD at 11:59 p.m. on 03/06/2018 with read back verification. I personally reviewed the images/study and I agree with the findings as stated. This study was interpreted at [place], [place]. Electronically signed by: CHASITY BATISTA MD GLUCOSE-POCT Collected: 03/06/2018 Status: F Source: [facility] 5:37 PM HOSPITALS REPOSITORY TYPE CODE TESTS RESULT OUT OF RANGE REFERENCE UNITS LAB GLUP(LOINC) 74 - 99 mg/dL High 194 GLUCOSE-POCT Performed By: #### GLUPO #### [facility] [address] [place] [address] AMMONIA Collected: 03/06/2018 Status: F Source: [facility] 2:38 PM HOSPITALS REPOSITORY TYPE CODE TESTS RESULT OUT OF RANGE REFERENCE UNITS LAB AMM(LOINC) umol/L Abnormal AMMONIA 57 Result Comment: . REFERENCE VALUES DAY 1 to DAY 7 <110 DAY 8 to DAY 14 < 90 DAY 15 to ADULT 16-53 Performed By: #### AMM #### [facility] [address] [place] [address] DAILY PROGRESS Observed: 03/06/2018 Status: COMPLETED Source: [facility] NOTE-INFECTIOUS DISEASE 2:08 PM HOSPITALS REPOSITORY Consult Type: subsequent visit/care Service: Infectious Disease Subjective Data: DIPESH BERMUDEZ is a 67 year old Male who is Hospital Day # 25 and POD #23 for left retrosigmoid craniotomy for tumor resection. More awake and alert today, asking to drink. No fevers. Objective Data: Objective Information: ---- Intake and Output ----- Mn/Dy/Year TimeIntakeOutputNet Mar 06, 2018 2:00 [id number] The Intake and Output Totals for the last 24 hours are: IntakeOutputNet 1120nullnull T PRBPSpO2 [id number]/8094% Date/Time03/06 13: 13: 13: 13: 13:22 Range(36.5C - 36.7C ) (85 - 92 ) (16 - 24 ) (114 - 122 )/ (75 - 84 ) (92% - 94% ) As of 06-Mar-2018 13:22:00, patient is on 3 L/min of oxygen via nasal cannula with humidification. Physical Exam: Constitutional: No acute distress, somewhat chronically ill- appearing, awake and alert and appropriate, on 3 L nasal cannula oxygen Eyes: EOMI, anicteric ENMT: No oral lesions noted Head/Neck: Neck supple Respiratory/Thorax: lungs with diminished breath sounds at the bases, coarse breath sounds Cardiovascular: RRR, +S1/S2 Gastrointestinal: +BS, soft, minimal right-sided tenderness to palpation, nondistended, +PEG site clean dry and intact Genitourinary: No Flynn catheter Musculoskeletal: no joint effusions Extremities: no peripheral edema Psychological: Appropriate mood and behavior Skin: PEG site c/d/i; craniectomy site c/d/i, no skin rash Medication: Medications: ANTI-INFECTIVES: 1. Nystatin Oral Liquid: 094276 unit(s) Oral Every 6 Hours 2. Linezolid 600 mg IVPB/ Premixed Soln 300 mL: 300 mL IntraVenous Piggyback Every 12 Hours CARDIOVASCULAR AGENTS: 1. Silodosin (NON - Formulary): 8 mg NasoGastric Tube Daily 2. hydrALAZINE Injectable: 10 mg IntraVenous Push Every 6 Hours PRN CENTRAL NERVOUS SYSTEM AGENTS: 1. Acetaminophen: 650 mg Oral Every 6 Hours PRN 2. Valproic Acid (Depakene) Oral Liquid: 250 mg PEG Tube Every 12 Hours 3. Ondansetron Injectable: 4 mg IntraVenous Push Every 6 Hours PRN COAGULATION MODIFIERS: 1. Heparin Flush 10 unit/ mL PF Injectable PRN: 5 mL IntraVenous Flush According to Flush Policy PRN 2. Heparin SubCutaneous: 5000 unit(s) SubCutaneous Every 8 Hours GASTROINTESTINAL AGENTS: 1. Bisacodyl Rectal: 10 mg Rectal Daily PRN 2. Docusate Oral Liquid: 100 mg Oral 2 Times a Day 3. Fleet Adult (Sodium Phosphate) Rectal: 1 enema Rectal Daily PRN 4. Polyethylene Glycol: 17 gram(s) Oral Daily PRN 5. Polyethylene Glycol: 17 gram(s) Oral Daily 6. Esomeprazole Oral Packet: 40 mg NasoGastric Tube 2 Times a Day METABOLIC AGENTS: 1. Insulin Glargine (Lantus) Injectable: 40 unit(s) SubCutaneous At Bedtime 2. Insulin Lispro (HumaLOG) Injectable: 5 unit(s) SubCutaneous Every 6 Hours 3. Insulin Lispro Moderate Corrective Scale: unit(s) SubCutaneous Every 6 Hours 4. Atorvastatin: 40 mg Oral Daily 5. Dextrose 50% in Water Injectable: 25 gram(s) IntraVenous Push Every 15 Minutes PRN 6. Glucagon Injectable: 1 mg IntraMuscular Every 15 Minutes PRN MISCELLANEOUS AGENTS: 1. Lidocaine 1% Injectable (PICC KIT): 1 mL IntraDermal Once PRN 2. Nicotine 14 mg/ 24 hour TransDermal: 1 patch TransDermal Every 24 Hours NUTRITIONAL PRODUCTS: 1. Sodium Chloride 0.9% Injectable Flush: 10 mL IntraVenous Flush Every 12 Hours RADIOLOGIC AGENTS: 1. Gadobenate Dimeglumine (MultiHance-Radiology Contrast): 18.02 mL IntraVenous Push Once RESPIRATORY AGENTS: 1. Albuterol 2.5 mg/ 3 mL Nebulizer Soln: 3 mL Inhalation Every 2 Hours PRN 2. Fluticasone 250 microgram -Salmeterol 50 microgram/ Inh: 1 inhalation Inhalation Every 12 Hours 3. Formoterol 20 microgram/ 2 mL Neb Soln: 2 mL Inhalation Every 12 Hours 4. guaiFENesin Oral Liquid: 400 mg Oral Every 6 Hours TOPICAL AGENTS: 1. Petrolatum Topical: 1 application(s) Topical 2 Times a Day Currently Suspended Medications 1. Lisinopril: 30 mg Oral Daily 2. amLODIPine: 10 mg Oral Daily 3. hydroCHLOROthiazide: 25 mg Oral Daily 4. oxyCODONE Immediate Release: 5 mg Oral Every 4 Hours PRN 5. oxyCODONE Immediate Release: 10 mg Oral Every 4 Hours PRN 6. Sennosides: 2 tablet(s) Oral Daily 7. Albuterol 2.5 mg/ 3 mL Nebulizer Soln: 3 mL Inhalation Every 6 Hours Recent Lab Results: Results: I have reviewed these laboratory results: Renal Function Panel 06-Mar-2018 12:34:00 ResultValue Glucose, Serum 248 H NA 138 K 4.7 CL 98 Bicarbonate, Serum 33 H Anion Gap, Serum 12 BUN 45 H CREAT 0.88 GFR-Non >60 GFR- >60 Calcium, Serum 9.3 Phosphorus, Serum 3.7 ALB 2.3 L Complete Blood Count + Differential 06-Mar-2018 12:34:00 ResultValue White Blood Cell Count 19.2 H Nucleated Erythrocyte Count 0.0 Red Blood Cell Count 4.22 L HGB 11.7 L HCT 39.2 L MCV 93 MCHC 29.8 L PLT 263 RDW-CV 15.3 H Neutrophil % 78.7 Immature Granulocytes % 0.8 Lymphocyte % 10.9 Monocyte % 6.6 Eosinophil % 2.3 Basophil % 0.7 Neutrophil Count 15.09 H Lymphocyte Count 2.08 Monocyte Count 1.27 H Eosinophil Count 0.44 Basophil Count 0.14 H Clostridium Difficile Toxin, PCR 20-Oct-2018 07:02:00 ResultValue Clostridium Difficile Toxin, PCR NOT DETECTED Reference Range: Not Detected This assay detects the presence of the tcdB (toxin B) gene via DNA amplification, and results should be interpreted in the context of the patients history and clinical findings. This test cannot be p Radiology Results: Results: Impression: *Postoperative changes as described in the left posterior fossa *No evidence of hemorrhage or infarction *THIS CT Head without Contrast [Mar 05 2018 10:27AM] Impression: 1. Interval significant worsening of now severe bronchial and bronchiolar wall thickening with interval development/worsening of extensive tree-in-bud appearance more in the left lung. Findings are concerning for worsening small airway disease and infectious bronchiolitis. Also recommend correlation for aspiration. 2. Status post left lower lobectomy. 3. Slightly dilated aorta measuring 4.1 cm. 4. Moderate to severe coronary artery calcification. 5. Againseen nodular thickening of the right adrenal gland. CT Chest without Contrast [Mar 05 2018 9:24AM] Assessment and Plan: Assessment: 67 male with hx of HTN, HLD, DM, COPD, CYNTHIA, meningioma s/p resection in 2013 who was admitted on 02/10 for repeat craniotomy of the infratentorial tumor with titanium mesh complicated by post op brainstem infarction who additionally has had a complicated hospitalization. He has had multiple code whites called due to desaturation, and there was concern for aspiration pneumonia/pneumonitis. On 02/17 he was started on Vanco/Cefepime/Azitro/Flagyl. There was concern for continued aspiration, so PEG was placed on 02/21. He completed a day course of Cefepime. 02/24 respiratory cultures were growing MRSA, so Vanco was restarted with a planned end date of 03/04 to treat MRSA pneumonia. It seems that his WBCs spiked around 02/22 and have been persistently high since then. Microbiology: 02/17 BCx: negative 02/22 BCx: negative 02/24 respiratory Cx: +MRSA Antibiotics: Vanco 1g q12 hours (02/17-02/22, 02/25-present) s/p Cefepime x7 days A/P: 1. persistent leukocytosis -MRSA PNA vs continued aspiration 2. hx of meningioma s/p craniectomy Recommendations: -Continue linezolid, could change to per PEG through 03/13/18 to complete course for MRSA pneumonia -Plan noted for brain MRI, neurosurgery recommendations reviewed -Check LFTs, consider CT abdomen/pelvis and ultrasounds of upper/lower extremities if ongoing leukocytosis although appears to be improving at present -Long-term prognosis appears guarded for recovery, can see patient again if needed. Please call if further questions, will sign off Team A [place] pager [phone] Electronic Signatures: Jaycee Mirza) (Signed 06-Mar-2018 14:14) Authored: Service, Subjective Data, Objective Data, Assessment and Plan, Signature/Cosignature/Attestation Last Updated: 06-Mar-2018 14:14 by Jaycee Mirza) EMR ADDON Collected: 03/06/2018 Status: F Source: [facility] 2:07 PM HOSPITALS REPOSITORY TYPE CODE TESTS RESULT OUT OF REFERENCE UNITS RANGE LAB EMRAC(LOIN C) ADDON CONFIRMATION REQUEST REC'D Performed By: #### EMRAD #### NO LOCATION NEEDED CBC AND DIFFERENTIAL Collected: 03/06/2018 Status: F Source: [place] 12:34 PM [facility] REPOSITORY TYPE CODE TESTS RESULT OUT OF REFERENCE UNITS RANGE LAB WBCR(LOINC 4.4 - 11.3 x10E9/L ) WBC High 19.2 LAB NRBC(LOINC 0.0-0.0 /100 WBC ) NUCLEATED RBC 0.0 LAB RBCCT(LOIN 4.50 - 5.90 x10E12/L C) Low RBC 4.22 LAB HGB(LOINC) 13.5 - 17.5 g/dL Low HGB 11.7 LAB HCT(LOINC) 41.0 - 52.0 % Low HCT 39.2 LAB MCV(LOINC) 80 - 100 fL MCV 93 LAB MCHC2(LOIN 32.0 - 36.0 g/dL C) Low MCHC 29.8 LAB PLTCT(LOIN 150 - 450 x10E9/L C) PLT 263 LAB RDWCV(LOIN 11.5 - 14.5 % C) RDW-CV High 15.3 LAB NEUT(LOINC 40.0 - 80.0 % ) % NEUTROPHIL 78.7 LAB IG(LOINC) 0.0 - 0.9 % % AUTOMATED 0.8 IMMATURE GRAN Result Comment: Percent differential counts (%) should be interpreted in the context of the absolute cell counts (cells/L). LAB LYMPH(LOINC) 13.0 - % 44.0 % LYMPHOCYTE 10.9 LAB MONO(LOINC) 2.0 - 10.0 % % MONOCYTE 6.6 LAB EOS(LOINC) 0.0 - 6.0 % % EOSINOPHIL 2.3 LAB BASO(LOINC) 0.0 - 2.0 % % BASOPHIL 0.7 LAB #NEUT(LOINC) 1.20 - x10E9/L 7.70 NEUTROPHIL High 15.09 LAB #LYMP(LOINC) 1.20 - x10E9/L 4.80 LYMPHOCYTE 2.08 LAB #MONO(LOINC) 0.10 - x10E9/L 1.00 MONOCYTE High 1.27 LAB #EOS(LOINC) 0.00 - x10E9/L 0.70 EOSINOPHIL 0.44 LAB #BASO(LOINC) 0.00 - x10E9/L 0.10 BASOPHIL High 0.14 Performed By: #### CBCDF #### [facility] [address] [place] [address] RENAL FUNCTION PANEL Collected: 03/06/2018 Status: F Source: [facility] 12:34 PM HOSPITALS REPOSITORY TYPE CODE TESTS RESULT OUT OF REFERENCE UNITS RANGE LAB GLU(LOINC) 74 - 99 mg/dL GLUCOSE High 248 LAB SOD(LOINC) 136 - 145 mmol/L SODIUM 138 LAB K(LOINC) 3.5 - 5.3 mmol/L POTASSIUM 4.7 LAB CHLOR(LOIN 98 - 107 mmol/L C) CHLORIDE 98 LAB BIC(LOINC) 21 - 32 mmol/L BICARBONATE High 33 LAB ANGAP(LOIN 10 - 20 mmol/L C) ANION GAP 12 LAB UREA(LOINC 6 - 23 mg/dL ) UREA High NITROGEN 45 LAB CREA(LOINC 0.50 - 1.30 mg/dL ) CREATININE 0.88 LAB GFRFN(LOIN >60 mL/min/1.7 C) 3m2 GFR-NON AM. >60 LAB GFRAA(LOIN >60 mL/min/1.7 C) 3m2 GFR- AM. >60 Result Comment: CALCULATIONS OF ESTIMATED GFR ARE PERFORMED USING THE MDRD STUDY EQUATION FOR THE IDMS-TRACEABLE CREATININE METHODS. CLIN CHEM 2007;53:766-72 LAB CA(LOINC) 8.6 - 10.6 mg/dL CALCIUM 9.3 LAB PHOS(LOINC) 2.5 - 4.9 mg/dL PHOSPHORUS 3.7 Result Comment: The performance characteristics of phosphorus testing in heparinized plasma have been validated by the individual laboratory site where testing is performed. Testing on heparinized plasma is not approved by the FDA; however, such approval is not necessary. LAB ALB(LOINC) 3.4 - 5.0 g/dL Low ALBUMIN 2.3 Performed By: #### RENAL #### [facility] [address] [place] [address] HEPATIC FUNCTION Collected: 03/06/2018 Status: F Source: [facility]EL 12:34 PM HOSPITALS REPOSITORY TYPE CODE TESTS RESULT OUT OF REFERENCE UNITS RANGE LAB ALB(LOINC) 3.4 - 5.0 g/dL Low ALBUMIN 2.3 LAB TBILI(LOIN 0.0 - 1.2 mg/dL C) BILIRUBIN,TOTAL 0.6 LAB DBILI(LOIN 0.0 - 0.3 mg/dL C) BILIRUBIN,DIRECT 0.2 LAB AP(LOINC) 33 - 136 U/L ALKALINE PHOSPHATASE 56 LAB ALT(LOINC) 10 - 52 U/L ALT 31 Result Comment: Patients treated with Sulfasalazine may generate falsely decreased results for ALT. LAB AST(LOINC) 9 - 39 U/L AST 16 LAB TP(LOINC) 6.4 - 8.2 g/dL Low TOTAL PROTEIN 5.7 Performed By: #### HEPFP #### [facility] [address] [place] [address] DAILY PROGRESS Observed: 03/06/2018 Status: COMPLETED Source: [facility] NOTE-MEDICINE ( 12:27 PM HOSPITALS REPOSITORY HOSPITALIST ) Service: Medicine Medical Student: Hospitalist Subjective Data: DIPESH BERMUDEZ is a 67 year old Male who is Hospital Day # 25 and POD #23 for left retrosigmoid craniotomy for tumor resection. Lavon Pedro HANDLE SANDER OPERATOR reports that pts nephew Donta called last night and was upset because he thought that pt was less alert, did not know who he was yesterday, wanted MRI brain done. Today nephew is here and wants to know when MRI will be done and if LP is going to be done. Pt denies pain or SOB this am. Objective Data: Objective Information: ---- Intake and Output ----- Mn/Dy/Year TimeIntakeOutputNet Mar 05, 2018 2:00 [id number] The Intake and Output Totals for the last 24 hours are: IntakeOutputNet 1120nullnull T PRBPSpO2 [id number]/8492% Date/Time03/06 10: 10: 10: 10: 10:12 Range(36.5C - 36.7C ) (85 - 92 ) (20 - 24 ) (114 - 122 )/ (75 - 84 ) (92% - 94% ) As of 05-Mar-2018 20:23:00, patient is on 3 L/min of oxygen via nasal cannula. Medication: Medications: Continuous Medications No continuous medications are active Scheduled Medications 1. Atorvastatin: 40 mg Oral Daily 2. Docusate Oral Liquid: 100 mg Oral 2 Times a Day 3. Esomeprazole Oral Packet: 40 mg NasoGastric Tube 2 Times a Day 4. Fluticasone 250 microgram -Salmeterol 50 microgram/ Inh: 1 inhalation Inhalation Every 12 Hours 5. Formoterol 20 microgram/ 2 mL Neb Soln: 2 mL Inhalation Every 12 Hours 6. Gadobenate Dimeglumine (MultiHance-Radiology Contrast): 18.02 mL IntraVenous Push Once 7. guaiFENesin Oral Liquid: 400 mg Oral Every 6 Hours 8. Heparin SubCutaneous: 5000 unit(s) SubCutaneous Every 8 Hours 9. Insulin Glargine (Lantus) Injectable: 35 unit(s) SubCutaneous At Bedtime 10. Insulin Lispro (HumaLOG) Injectable: 5 unit(s) SubCutaneous Every 6 Hours 11. Insulin Lispro Moderate Corrective Scale: unit(s) SubCutaneous Every 6 Hours 12. Linezolid 600 mg IVPB/ Premixed Soln 300 mL: 300 mL IntraVenous Piggyback Every 12 Hours 13. Nicotine 14 mg/ 24 hour TransDermal: 1 patch TransDermal Every 24 Hours 14. Nystatin Oral Liquid: 127695 unit(s) Oral Every 6 Hours 15. Petrolatum Topical: 1 application(s) Topical 2 Times a Day 16. Polyethylene Glycol: 17 gram(s) Oral Daily 17. Silodosin (NON - Formulary): 8 mg NasoGastric Tube Daily 18. Sodium Chloride 0.9% Injectable Flush: 10 mL IntraVenous Flush Every 12 Hours 19. Valproic Acid (Depakene) Oral Liquid: 250 mg PEG Tube Every 12 Hours PRN Medications 1. Acetaminophen: 650 mg Oral Every 6 Hours 2. Albuterol 2.5 mg/ 3 mL Nebulizer Soln: 3 mL Inhalation Every 2 Hours 3. Bisacodyl Rectal: 10 mg Rectal Daily 4. Dextrose 50% in Water Injectable: 25 gram(s) IntraVenous Push Every 15 Minutes 5. Fleet Adult (Sodium Phosphate) Rectal: 1 enema Rectal Daily 6. Glucagon Injectable: 1 mg IntraMuscular Every 15 Minutes 7. Heparin Flush 10 unit/ mL PF Injectable PRN: 5 mL IntraVenous Flush According to Flush Policy 8. hydrALAZINE Injectable: 10 mg IntraVenous Push Every 6 Hours 9. Lidocaine 1% Injectable (PICC KIT): 1 mL IntraDermal Once 10. Ondansetron Injectable: 4 mg IntraVenous Push Every 6 Hours 11. Polyethylene Glycol: 17 gram(s) Oral Daily Currently Suspended Medications 1. Albuterol 2.5 mg/ 3 mL Nebulizer Soln: 3 mL Inhalation Every 6 Hours 2. amLODIPine: 10 mg Oral Daily 3. hydroCHLOROthiazide: 25 mg Oral Daily 4. Lisinopril: 30 mg Oral Daily 5. oxyCODONE Immediate Release: 5 mg Oral Every 4 Hours 6. oxyCODONE Immediate Release: 10 mg Oral Every 4 Hours 7. Sennosides: 2 tablet(s) Oral Daily Recent Lab Results: Results: I have reviewed these laboratory results: Glucose_POCT Trending View [id number] 12:04:00 06-Mar-2018 00:30:00 Glucose-[id number] H 266 H Complete Blood Count 05-Mar-2018 07:10:00 ResultValue White Blood Cell Count 23.9 H Nucleated Erythrocyte Count 0.0 Red Blood Cell Count 4.48 L HGB 12.2 L HCT 40.3 L MCV 90 MCHC 30.3 L PLT 278 RDW-CV 15.1 H Renal Function Panel 05-Mar-2018 07:10:00 ResultValue Glucose, Serum 142 H NA 138 K 5.2 CL 98 Bicarbonate, Serum 30 Anion Gap, Serum 15 BUN 39 H CREAT 0.97 GFR-Non >60 GFR- >60 Calcium, Serum 9.3 Phosphorus, Serum 3.6 ALB 2.6 L Clostridium Difficile Toxin, PCR 05-Mar-2018 07:02:00 ResultValue Clostridium Difficile Toxin, PCR NOT DETECTED Reference Range: Not Detected This assay detects the presence of the tcdB (toxin B) gene via DNA amplification, and results should be interpreted in the context of the patients history and clinical findings. This test cannot be p Radiology Results: Results: Impression: *Postoperative changes as described in the left posterior fossa *No evidence of hemorrhage or infarction *THIS CT Head without Contrast [Mar 05 2018 10:27AM] Impression: 1. Interval significant worsening of now severe bronchial and bronchiolar wall thickening with interval development/worsening of extensive tree-in-bud appearance more in the left lung. Findings are concerning for worsening small airway disease and infectious bronchiolitis. Also recommend correlation for aspiration. 2. Status post left lower lobectomy. 3. Slightly dilated aorta measuring 4.1 cm. 4. Moderate to severe coronary artery calcification. 5. Againseen nodular thickening of the right adrenal gland. CT Chest without Contrast [Mar 05 2018 9:24AM] Impression: 1. Tiny vessels arising from the left cavernous ICA and likely supplying the left intracranial/cavernous sinus mass with minimal tumor blush. No definite target for embolization was identified. 2. No evidence of abnormal blood supply to the left intracranial mass from the left ECA branches. I was present for and/or performed the critical portions of the procedure and immediately available throughout the entireprocedure. Angio Ext Unilateral [Mar 04 2018 1:08PM] Impression: 1. Question mild perihilar edema but no lobar or segmental consolidation. Follow-up with PA and lateral x-ray if there is continued concern for developing pneumonia Xray Chest 1 View [Feb 28 2018 12:18PM] Assessment and Plan: Comorbidities: Comorbidity: altered mental status... Altered Mental Status Type: encephalopathy... Encephalopathy Type: metabolic cva Assessment: This is a 67y/o WM with pMH significant for HTN, DMII, COPD, s/p L lobectomy, meningioma who presented to 02/10 for repeat resection of meningioma done 02/11 with postop course complicated by brainstem infarct, dyspahgia, acute hypoxemic respiratory failure due MRSA aspiration PNA, s/p peg 02/21/18, who has waxing/waning mental status likely multifactorial and worsening MRSA PNA. Neuro: s/p brainstem cva, meningioma resection s/p craniotomy. Has R sided weakness. The pt appears the same from a neurological standpoint to me as compared to last week. Reportedly by nephew Donta, pt seemed less responsive yesterday, but better today. He wanted to know plan for LP and MRI brain today. I called neurosurgery who will speak with him, but resident told me there is no indication now for LP. -f/u repeat MRI brain -cont Pt/OT -monitor neuro status -f/u ammonia level CV: Stable Pulm: MRSA PNA. 03/04 CT chest showed interval worsening extensive tree in bud L lung, trace bilateral pleural effusion, moderate-severe coronary calcifications. ID consulted and changed Vanco to linezolid on 03/04. Leukocytosis with WBC 23.9k yesterday. -appreciate ID recs -cont Linezolid for now -f/u CBC to be drawn today GI: Dyspagia s/p peg tube. -cont tubefeeds -npo Renal: No labs today -f/u renal function today Endo; DMII. BS 150-266. On lantus and lispro. -titrate up lantus as needed to maintain Bs 150-180. -cont SSI Disp: DNAR/DNI. Pt was living with niece, he will need rehab at discharge once stable. Updated nephew Donta who was visiting today [phone] . NSy to update him on plan re mental status and why decision not to do LP. -start discharge form Pt discussed with Dr. Sanchez. Signature/Cosignature/Attestation: Comments/ Additional Findings 67 male with hx of HTN, HLD, DM, COPD, CYNTHIA, meningioma s/p resection in 2013 who was admitted on 9/27 for repeat craniotomy of the infratentorial tumor with titanium mesh complicated by post op brainstem infarction Patient is AOx2 and asking for diet coke Power in Right U and L extremity 2/5 , Left Uand L 5/5 chronic ill looking []Acute respiratory failure secondary to aspiration pneumonia versus hospital-acquired pneumonia Continue Zyvox as per infectious disease recommendations, cultures negative to date. Sputum culture grew MRSA . Continue oxygen to keep saturation more than 90% and wean as tolerated. Patient still has persistent leukocytosis but is trending down , repeat CT chest showing findings consistent with acute bronchiolitis. We will get Doppler studies for upper and lower extremities to rule out DVT. []Meningioma status post rectosigmoid colectomy with postoperative brainstem infarction Outpatient follow-up with neurosurgery, continue physical therapy. Repeat CT head did not show any acute pathology. No acute intervention, as per neurosurgery []Acute encephalopathy Resolving, likely multifactorial secondary to infection, prolonged hospital stay, CVA and metabolic. Continue to hold oxycodone immediate release and continue Tylenol when necessary for pain. Maintain sleep wake cycle and avoid narcotics. CAT scan head did not show any acute intracranial pathology except for postoperative changes, MRI head pending. []Grade D esophagitis. Continue PPI []Type 2 diabetes mellitus. Continue Lantus and sliding scale. Hemoglobin A1c is 8.1 Diet continue PEG tube feeding. Code status full Electronic Signatures: Danielle Corral ([employer] O[employer]ATOR-GROUP MANAGER) (Signed 06-Mar-2018 12:49) Authored: Service, Subjective Data, Objective Data, Assessment and Plan, Signature/Cosignature/Attestation Katy Sanchez) (Signed 06-Mar-2018 15:48) Authored: Signature/Cosignature/Attestation Last Updated: 06-Mar-2018 15:48 by Katy Sanchez) GLUCOSE-POCT Collected: 03/06/2018 Status: F Source: [facility] 12:04 PM HOSPITALS REPOSITORY TYPE CODE TESTS RESULT OUT OF RANGE REFERENCE UNITS LAB GLUP(LOINC) 74 - 99 mg/dL High 218 GLUCOSE-POCT Performed By: #### GLUPO #### [facility] [address] [place] [address] CLINICAL EVENT Observed: 03/06/2018 Status: UNK Source: [facility] NOTE-NSGY 7:12 AM HOSPITALS REPOSITORY Event: Topic: nsgy Details: patient seen this morning Wide awake Ox3 FCx4 LUE/LLE 4+/5 RUE2/5 RLE 3/5 Plan no acute nsgy intervention needed as patient is doing well clinically and is wide awake nsgy will continue to follow please page if you have any questions Provider / Team Contact Information: Provider/Team Contact Info-Pager Number: [phone] Electronic Signatures: Santiago Tompkins ( (Resident)) (Signed 06-Mar-2018 08:39) Authored: Event, Provider / Team Contact Information Last Updated: 06-Mar-2018 08:39 by Santiago Tompkins ( (Resident)) GLUCOSE-POCT Collected: 03/06/2018 Status: F Source: [facility] 12:30 AM [facility]PITALS REPOSITORY TYPE CODE TESTS RESULT OUT OF RANGE REFERENCE UNITS LAB GLUP(LOINC) 74 - 99 mg/dL High 266 GLUCOSE-POCT Performed By: #### GLUPO #### [facility] [address] [place] [address] GLUCOSE-POCT Collected: 03/05/2018 Status: F Source: [facility] 7:56 PM [facility]ITALS REPOSITORY TYPE CODE TESTS RESULT OUT OF RANGE REFERENCE UNITS LAB GLUP(LOINC) 74 - 99 mg/dL High 199 GLUCOSE-POCT Performed By: #### GLUPO #### [facility] [address] [place] [address] DAILY PROGRESS Observed: 03/05/2018 Status: COMPLETED Source: [facility] NOTE-INFECTIOUS DISEASE 4:29 PM HOSPITALS REPOSITORY Consult Type: subsequent visit/care Service: Infectious Disease Subjective Data: DIPESH BERMUDEZ is a 67 year old Male who is Hospital Day # 24 and POD #22 for left retrosigmoid craniotomy for tumor resection. Patient seen earlier today. Mental status remains poor. No fevers. Objective Data: Objective Information: ---- Intake and Output ----- Mn/Dy/Year TimeIntakeOutputNet Mar 05, 2018 2:00 [id number] Mar 04, 2018 10:00 pm000 T PRBPSpO2 [id number]/6392% Date/Time03/05 12: 12: 12: 12: 12:04 Range(36.6C - 36.8C ) (73 - 110 ) (22 - 22 ) (124 - 129 )/ (63 - 77 ) (86% - 92% ) Physical Exam: Constitutional: awake, arousable, minimally responsive to questioning, on room air currently Eyes: EOMI, anicteric ENMT: No oral lesions noted Head/Neck: Neck supple Respiratory/Thorax: lungs with diminished breath sounds at the bases Cardiovascular: RRR, +S1/S2 Gastrointestinal: +BS, soft, nontender, nondistended, +PEG Genitourinary: No Flynn catheter Musculoskeletal: no joint effusions Extremities: no peripheral edema Skin: PEG site c/d/i; craniectomy site c/d/i, no skin rash Medication: Medications: ANTI-INFECTIVES: 1. Nystatin Oral Liquid: 271483 unit(s) Oral Every 6 Hours 2. Linezolid 600 mg IVPB/ Premixed Soln 300 mL: 300 mL IntraVenous Piggyback Every 12 Hours CARDIOVASCULAR AGENTS: 1. Silodosin (NON - Formulary): 8 mg NasoGastric Tube Daily 2. hydrALAZINE Injectable: 10 mg IntraVenous Push Every 6 Hours PRN CENTRAL NERVOUS SYSTEM AGENTS: 1. Acetaminophen: 650 mg Oral Every 6 Hours PRN 2. Valproic Acid (Depakene) Oral Liquid: 250 mg PEG Tube Every 12 Hours 3. Ondansetron Injectable: 4 mg IntraVenous Push Every 6 Hours PRN COAGULATION MODIFIERS: 1. Heparin Flush 10 unit/ mL PF Injectable PRN: 5 mL IntraVenous Flush According to Flush Policy PRN 2. Heparin SubCutaneous: 5000 unit(s) SubCutaneous Every 8 Hours GASTROINTESTINAL AGENTS: 1. Bisacodyl Rectal: 10 mg Rectal Daily PRN 2. Docusate Oral Liquid: 100 mg Oral 2 Times a Day 3. Fleet Adult (Sodium Phosphate) Rectal: 1 enema Rectal Daily PRN 4. Polyethylene Glycol: 17 gram(s) Oral Daily PRN 5. Polyethylene Glycol: 17 gram(s) Oral Daily 6. Esomeprazole Oral Packet: 40 mg NasoGastric Tube 2 Times a Day METABOLIC AGENTS: 1. Insulin Glargine (Lantus) Injectable: 35 unit(s) SubCutaneous At Bedtime 2. Insulin Lispro (HumaLOG) Injectable: 5 unit(s) SubCutaneous Every 6 Hours 3. Insulin Lispro Moderate Corrective Scale: unit(s) SubCutaneous Every 6 Hours 4. Atorvastatin: 40 mg Oral Daily 5. Dextrose 50% in Water Injectable: 25 gram(s) IntraVenous Push Every 15 Minutes PRN 6. Glucagon Injectable: 1 mg IntraMuscular Every 15 Minutes PRN MISCELLANEOUS AGENTS: 1. Lidocaine 1% Injectable (PICC KIT): 1 mL IntraDermal Once PRN 2. Nicotine 14 mg/ 24 hour TransDermal: 1 patch TransDermal Every 24 Hours NUTRITIONAL PRODUCTS: 1. Sodium Chloride 0.9% Injectable Flush: 10 mL IntraVenous Flush Every 12 Hours RESPIRATORY AGENTS: 1. Albuterol 2.5 mg/ 3 mL Nebulizer Soln: 3 mL Inhalation Every 2 Hours PRN 2. Fluticasone 250 microgram -Salmeterol 50 microgram/ Inh: 1 inhalation Inhalation Every 12 Hours 3. Formoterol 20 microgram/ 2 mL Neb Soln: 2 mL Inhalation Every 12 Hours 4. guaiFENesin Oral Liquid: 400 mg Oral Every 6 Hours TOPICAL AGENTS: 1. Petrolatum Topical: 1 application(s) Topical 2 Times a Day Currently Suspended Medications 1. Lisinopril: 30 mg Oral Daily 2. amLODIPine: 10 mg Oral Daily 3. hydroCHLOROthiazide: 25 mg Oral Daily 4. oxyCODONE Immediate Release: 5 mg Oral Every 4 Hours PRN 5. oxyCODONE Immediate Release: 10 mg Oral Every 4 Hours PRN 6. Sennosides: 2 tablet(s) Oral Daily 7. Albuterol 2.5 mg/ 3 mL Nebulizer Soln: 3 mL Inhalation Every 6 Hours Recent Lab Results: Results: I have reviewed these laboratory results: Complete Blood Count 05-Mar-2018 07:10:00 ResultValue White Blood Cell Count 23.9 H Nucleated Erythrocyte Count 0.0 Red Blood Cell Count 4.48 L HGB 12.2 L HCT 40.3 L MCV 90 MCHC 30.3 L PLT 278 RDW-CV 15.1 H Renal Function Panel Trending View [id number] 07:10:00 04-Mar-2018 08:15:00 Glucose, [place]330 H 192 H NA138 137 K5.2 5.1 CL98 98 Bicarbonate, Serum30 31 Anion Gap, Serum15 13 BUN39 H 39 H CREAT0.97 0.87 GFR-Non >60 >60 GFR->60 >60 Calcium, Serum9.3 9.2 Phosphorus, Serum3.6 3.2 ALB2.6 L 2.5 L Clostridium Difficile Toxin, PCR 05-Mar-2018 07:02:00 ResultValue Clostridium Difficile Toxin, PCR NOT DETECTED Reference Range: Not Detected This assay detects the presence of the tcdB (toxin B) gene via DNA amplification, and results should be interpreted in the context of the patients history and clinical findings. This test cannot be p Vancomycin Level, Trough 04-Mar-2018 14:44:00 ResultValue Vancomycin Level, Trough 16.6 Complete Blood Count + Differential 04-Mar-2018 08:15:00 ResultValue White Blood Cell Count 23.4 H Nucleated Erythrocyte Count 0.0 Red Blood Cell Count 4.28 L HGB 11.9 L HCT 38.3 L MCV 89 MCHC 31.1 L PLT 256 RDW-CV 15.0 H Neutrophil % 83.0 Immature Granulocytes % 0.9 Lymphocyte % 7.8 Monocyte % 6.1 Eosinophil % 1.6 Basophil % 0.6 Neutrophil Count 19.37 H Lymphocyte Count 1.83 Monocyte Count 1.43 H Eosinophil Count 0.38 Basophil Count 0.14 H Radiology Results: Results: Impression: *Postoperative changes as described in the left posterior fossa *No evidence of hemorrhage or infarction *THIS CT Head without Contrast [Mar 05 2018 10:27AM] Impression: 1. Interval significant worsening of now severe bronchial and bronchiolar wall thickening with interval development/worsening of extensive tree-in-bud appearance more in the left lung. Findings are concerning for worsening small airway disease and infectious bronchiolitis. Also recommend correlation for aspiration. 2. Status post left lower lobectomy. 3. Slightly dilated aorta measuring 4.1 cm. 4. Moderate to severe coronary artery calcification. 5. Againseen nodular thickening of the right adrenal gland. CT Chest without Contrast [Mar 05 2018 9:24AM] Conclusion: CONCLUSIONS: Right Lower Venous: No evidence of acute deep vein thrombus visualized in the right lower extremity. Left Lower Venous: No evidence of acute deep vein thrombus visualized in the left lower extremity. [facility] Venous Duplex Ultrasound for DVT [Feb 19 2018 10:10AM] Assessment and Plan: Assessment: 67 male with hx of HTN, HLD, DM, COPD, CYNTHIA, meningioma s/p resection in 2013 who was admitted on 02/10 for repeat craniotomy of the infratentorial tumor with titanium mesh complicated by post op brainstem infarction who additionally has had a complicated hospitalization. He has had multiple code whites called due to desaturation, and there was concern for aspiration pneumonia/pneumonitis. On 02/17 he was started on Vanco/Cefepime/Azitro/Flagyl. There was concern for continued aspiration, so PEG was placed on 02/21. He completed a day course of Cefepime. 02/24 respiratory cultures were growing MRSA, so Vanco was restarted with a planned end date of 03/04 to treat MRSA pneumonia. It seems that his WBCs spiked around 02/22 and have been persistently high since then. Microbiology: 02/17 BCx: negative 02/22 BCx: negative 02/24 respiratory Cx: +MRSA Antibiotics: Vanco 1g q12 hours (02/17-02/22, 02/25-present) s/p Cefepime x7 days A/P: 1. persistent leukocytosis -MRSA PNA vs continued aspiration 2. hx of meningioma s/p craniectomy Recommendations: -Continue linezolid (day 2) -Trend leukocytosis -Repeat blood cultures if fever -Consider repeat LE and UE bilateral ultrasound for DVT to evaluate for non-infectious cause of leukocytosis -Will follow, fci prognosis appears poor for recovery Team A [place] pager [phone] Electronic Signatures: Jaycee Mirza) (Signed 05-Mar-2018 16:34) Authored: Service, Subjective Data, Objective Data, Assessment and Plan, Signature/Cosignature/Attestation Last Updated: 05-Mar-2018 16:34 by Jaycee Mirza) DAILY PROGRESS Observed: 03/05/2018 Status: COMPLETED Source: [facility] NOTE-MEDICINE 3:48 PM HOSPITALS REPOSITORY Service: Medicine Subjective Data: DIPESH BERMUDEZ is a 67 year old Male who is Hospital Day # 24 and POD #22 for left retrosigmoid craniotomy for tumor resection. Patient is nonverbal. Overnight Events: Patient had an uneventful night. Additional Information: Patient's nephew at bedside Objective Data: Objective Information: ---- Intake and Output ----- Mn/Dy/Year TimeIntakeOutputNet Mar 05, 2018 2:00 [id number] Mar 04, 2018 10:00 pm000 T PRBPSpO2 [id number]/6392% Date/Time03/05 12: 12: 12: 12: 12:04 Range(36.6C - 36.8C ) (73 - 110 ) (22 - 22 ) (124 - 129 )/ (63 - 77 ) (86% - 92% ) Physical Exam: Constitutional: Chronically looking, nonverbal, opening eyes on ENMT: mucous membranes dry Head/Neck: Neck supple, no apparent injury, trachea midline, no bruits Respiratory/Thorax: Bilateral air entry decreased bases Cardiovascular: Regular, rate and rhythm, no murmurs, Gastrointestinal: Nondistended, soft, non-tender, no rebound tenderness or guarding, no masses palpable, no organomegaly, +BS PEG tube is in place Musculoskeletal: no joint swelling Extremities: no edema, Pulses + b/l Neurological: Patient is nonverbal and confused, not following verbal commands, patient is not moving his right upper and lower extremity, but moved left lower extremity while I was in the room. Neurological examination is difficult as patient is not following commands and is confused Psychological: Not able to assess Skin: Warm and dry, no lesions, no rashes Medication: Medications: ANTI-INFECTIVES: 1. Nystatin Oral Liquid: [id number] unit(s) Oral Every 6 Hours 2. Linezolid 600 mg IVPB/ Premixed Soln 300 mL: 300 mL IntraVenous Piggyback Every 12 Hours CARDIOVASCULAR AGENTS: 1. Silodosin (NON - Formulary): 8 mg NasoGastric Tube Daily 2. hydrALAZINE Injectable: 10 mg IntraVenous Push Every 6 Hours PRN CENTRAL NERVOUS SYSTEM AGENTS: 1. Acetaminophen: 650 mg Oral Every 6 Hours PRN 2. oxyCODONE Immediate Release: 5 mg Oral Every 4 Hours PRN 3. oxyCODONE Immediate Release: 10 mg Oral Every 4 Hours PRN 4. Valproic Acid (Depakene) Oral Liquid: 250 mg PEG Tube Every 12 Hours 5. Ondansetron Injectable: 4 mg IntraVenous Push Every 6 Hours PRN COAGULATION MODIFIERS: 1. Heparin Flush 10 unit/ mL PF Injectable PRN: 5 mL IntraVenous Flush According to Flush Policy PRN 2. Heparin SubCutaneous: 5000 unit(s) SubCutaneous Every 8 Hours GASTROINTESTINAL AGENTS: 1. Bisacodyl Rectal: 10 mg Rectal Daily PRN 2. Docusate Oral Liquid: 100 mg Oral 2 Times a Day 3. Fleet Adult (Sodium Phosphate) Rectal: 1 enema Rectal Daily PRN 4. Polyethylene Glycol: 17 gram(s) Oral Daily PRN 5. Polyethylene Glycol: 17 gram(s) Oral Daily 6. Esomeprazole Oral Packet: 40 mg NasoGastric Tube 2 Times a Day METABOLIC AGENTS: 1. Insulin Glargine (Lantus) Injectable: 35 unit(s) SubCutaneous At Bedtime 2. Insulin Lispro (HumaLOG) Injectable: 5 unit(s) SubCutaneous Every 6 Hours 3. Insulin Lispro Moderate Corrective Scale: unit(s) SubCutaneous Every 6 Hours 4. Atorvastatin: 40 mg Oral Daily 5. Dextrose 50% in Water Injectable: 25 gram(s) IntraVenous Push Every 15 Minutes PRN 6. Glucagon Injectable: 1 mg IntraMuscular Every 15 Minutes PRN MISCELLANEOUS AGENTS: 1. Lidocaine 1% Injectable (PICC KIT): 1 mL IntraDermal Once PRN 2. Nicotine 14 mg/ 24 hour TransDermal: 1 patch TransDermal Every 24 Hours NUTRITIONAL PRODUCTS: 1. Sodium Chloride 0.9% Injectable Flush: 10 mL IntraVenous Flush Every 12 Hours RESPIRATORY AGENTS: 1. Albuterol 2.5 mg/ 3 mL Nebulizer Soln: 3 mL Inhalation Every 6 Hours 2. Albuterol 2.5 mg/ 3 mL Nebulizer Soln: 3 mL Inhalation Every 2 Hours PRN 3. Fluticasone 250 microgram -Salmeterol 50 microgram/ Inh: 1 inhalation Inhalation Every 12 Hours 4. Formoterol 20 microgram/ 2 mL Neb Soln: 2 mL Inhalation Every 12 Hours 5. guaiFENesin Oral Liquid: 400 mg Oral Every 6 Hours TOPICAL AGENTS: 1. Petrolatum Topical: 1 application(s) Topical 2 Times a Day Currently Suspended Medications 1. Lisinopril: 30 mg Oral Daily 2. amLODIPine: 10 mg Oral Daily 3. hydroCHLOROthiazide: 25 mg Oral Daily 4. Sennosides: 2 tablet(s) Oral Daily Recent Lab Results: Results: I have reviewed these laboratory results: Glucose_POCT [Drawn 05-Mar-2018 12:27:00], Glucose_POCT [Drawn 05-Mar-2018 12:02:00], Complete Blood Count [Drawn 05-Mar-2018 07:10:00], Renal Function Panel [Drawn 05-Mar-2018 07:10:00]. Radiology Results: Results: Impression: *Postoperative changes as described in the left posterior fossa *No evidence of hemorrhage or infarction *THIS CT Head without Contrast [Mar 05 2018 10:27AM] Impression: 1. Interval significant worsening of now severe bronchial and bronchiolar wall thickening with interval development/worsening of extensive tree-in-bud appearance more in the left lung. Findings are concerning for worsening small airway disease and infectious bronchiolitis. Also recommend correlation for aspiration. 2. Status post left lower lobectomy. 3. Slightly dilated aorta measuring 4.1 cm. 4. Moderate to severe coronary artery calcification. 5. Againseen nodular thickening of the right adrenal gland. CT Chest without Contrast [Mar 05 2018 9:24AM] Assessment and Plan: Assessment: 67 male with hx of HTN, HLD, DM, COPD, CYNTHIA, meningioma s/p resection in 2013 who was admitted on 02/10 for repeat craniotomy of the infratentorial tumor with titanium mesh complicated by post op brainstem infarction []Acute respiratory failure secondary to aspiration pneumonia versus hospital-acquired pneumonia Continue Zyvox as per infectious disease recommendations, cultures negative to date. Sputum culture grew MRSA that. Continue oxygen to keep saturation more than 90% and wean as tolerated. Patient still has persistent leukocytosis, repeat CT chest showing findings consistent with acute bronchiolitis. []Meningioma status post rectosigmoid colectomy with postoperative brainstem infarction Outpatient follow-up with neurosurgery, continue physical therapy. Repeat CT head did not show any acute pathology. Neurosurgery was made aware that patient's nephew wants to talk to them []Acute encephalopathy Likely multifactorial secondary to infection, prolonged hospital stay, CVA and metabolic. Hold oxycodone immediate release and continue Tylenol when necessary for pain. Maintain sleep wake cycle and avoid narcotics. CAT scan head did not show any acute intracranial pathology except for postoperative changes []Grade D esophagitis. Continue PPI []Type 2 diabetes mellitus. Continue Lantus and sliding scale. Hemoglobin A1c is 8.1 Diet continue PEG tube feeding. Cor status full Signature/Cosignature/Attestation: Comments/ Additional Findings Spent more than 35 minutes in managing the patient, more than 50% of time spent on counseling and coordination of care. All questions answered Dr Katy Sanchez Pager no : [phone] / [phone] (8am to 8 pm) Pager no : [phone] ( 8pm to 8 am) Electronic Signatures: Katy Sanchez) (Signed 05-Mar-2018 15:54) Authored: Service, Subjective Data, Objective Data, Assessment and Plan, Signature/Cosignature/Attestation Last Updated: 05-Mar-2018 15:54 by Katy Sanchez) GLUCOSE-POCT Collected: 03/05/2018 Status: F Source: [facility] 12:27 PM [facility]OSPITALS REPOSITORY TYPE CODE TESTS RESULT OUT OF RANGE REFERENCE UNITS LAB GLUP(LOINC) 74 - 99 mg/dL High 239 GLUCOSE-POCT Performed By: #### GLUPO #### [facility] [address] [place] [id number] GLUCOSE-POCT Collected: 03/05/2018 Status: F Source: [facility] 12:02 PM [facility] REPOSITORY TYPE CODE TESTS RESULT OUT OF RANGE REFERENCE UNITS LAB GLUP(LOINC) 74 - 99 mg/dL High 229 GLUCOSE-POCT Performed By: #### GLUPO #### [facility] [address] [place] [id number] CBC Collected: 03/05/2018 Status: F Source: [facility] 7:10 AM [facility] REPOSITORY TYPE CODE TESTS RESULT OUT OF REFERENCE UNITS RANGE LAB WBCR(LOINC 4.4 - 11.3 x10E9/L ) WBC High 23.9 LAB NRBC(LOINC 0.0-0.0 /100 WBC ) NUCLEATED RBC 0.0 LAB RBCCT(LOIN 4.50 - 5.90 x10E12/L C) Low RBC 4.48 LAB HGB(LOINC) 13.5 - 17.5 g/dL Low HGB 12.2 LAB HCT(LOINC) 41.0 - 52.0 % Low HCT 40.3 LAB MCV(LOINC) 80 - 100 fL MCV 90 LAB MCHC2(LOIN 32.0 - 36.0 g/dL C) Low MCHC 30.3 LAB PLTCT(LOIN 150 - 450 x10E9/L C) PLT 278 LAB RDWCV(LOIN 11.5 - 14.5 % C) High RDW-CV 15.1 Performed By: #### CBC #### [facility] [address] [place] [address] RENAL FUNCTION PANEL Collected: 03/05/2018 Status: F Source: [facility] 7:10 AM [facility]ITALS REPOSITORY TYPE CODE TESTS RESULT OUT OF REFERENCE UNITS RANGE LAB GLU(LOINC) 74 - 99 mg/dL GLUCOSE High 142 LAB SOD(LOINC) 136 - 145 mmol/L SODIUM 138 LAB K(LOINC) 3.5 - 5.3 mmol/L POTASSIUM 5.2 LAB CHLOR(LOIN 98 - 107 mmol/L C) CHLORIDE 98 LAB BIC(LOINC) 21 - 32 mmol/L BICARBONATE 30 LAB ANGAP(LOIN 10 - 20 mmol/L C) ANION GAP 15 LAB UREA(LOINC 6 - 23 mg/dL ) UREA High NITROGEN 39 LAB CREA(LOINC 0.50 - 1.30 mg/dL ) CREATININE 0.97 LAB GFRFN(LOIN >60 mL/min/1.7 C) 3m2 GFR-NON AM. >60 LAB GFRAA(LOIN >60 mL/min/1.7 C) 3m2 GFR- AM. >60 Result Comment: CALCULATIONS OF ESTIMATED GFR ARE PERFORMED USING THE MDRD STUDY EQUATION FOR THE IDMS-TRACEABLE CREATININE METHODS. CLIN CHEM 2007;53:766-72 LAB CA(LOINC) 8.6 - 10.6 mg/dL CALCIUM 9.3 LAB PHOS(LOINC) 2.5 - 4.9 mg/dL PHOSPHORUS 3.6 Result Comment: The performance characteristics of phosphorus testing in heparinized plasma have been validated by the individual laboratory site where testing is performed. Testing on heparinized plasma is not approved by the FDA; however, such approval is not necessary. LAB ALB(LOINC) 3.4 - 5.0 g/dL Low ALBUMIN 2.6 Performed By: #### RENAL #### [facility] [address] [place] [address] CLOST.DIFF.TOXIN,PCR Collected: Status: F Source: [facility] 03/05/2018 7:02 AM HOSPITALS REPOSITORY TYPE CODE TESTS RESULT OUT OF REFERENCE UNITS RANGE LAB CDPCR(LOINC Not Detected ) NOT DETECTED CLOST.DIFF.T OXIN,PCR Result Comment: This assay detects the presence of the tcdB (toxin B) gene via DNA amplification, and results should be interpreted in the context of the patients history and clinical findings. This test cannot be performed on formed stools or used as a test of cure, and should not be performed more than once per 7 days. Performed By: #### CDPCR #### [facility] [address] [place] [address] GLUCOSE-POCT Collected: 03/05/2018 Status: F Source: [facility] 6:54 AM [facility]ITALS REPOSITORY TYPE CODE TESTS RESULT OUT OF RANGE REFERENCE UNITS LAB GLUP(LOINC) 74 - 99 mg/dL High 150 GLUCOSE-POCT Performed By: #### GLUPO #### [facility] [address] [place] [address] GLUCOSE-POCT Collected: 03/05/2018 Status: F Source: [facility] 12:47 AM [facility] REPOSITORY TYPE CODE TESTS RESULT OUT OF RANGE REFERENCE UNITS LAB GLUP(LOINC) 74 - 99 mg/dL High 252 GLUCOSE-POCT Performed By: #### GLUPO #### [facility] [address] [place] [address] CT CHEST WO Observed: 03/04/2018 Status: F Source: [facility] CONTRAST 11:24 PM HOSPITALS REPOSITORY Patient Name: DIPESH BERMUDEZ STUDY: CT CHEST WO CONTRAST; 03/04/2018 11:24 pm INDICATION: Signs/Symptoms: aspiration PNA, MRSA PNA, persistent leukocytosis, Lie Flat: Yes. COMPARISON: CT dated 02/17/2018 and 02/16/2018 ACCESSION NUMBER(S): [id number] ORDERING CLINICIAN: JR JACOBS TECHNIQUE: Helical data acquisition of the chest was obtained without IV contrast material. Images were reformatted in axial, coronal, and sagittal planes. FINDINGS: LUNGS AND AIRWAYS: The trachea and central airways are patent. No endobronchial lesion. Some layering secretion and mucous in the trachea as well as in the left lung bronchi. Interval worsening of diffuse significant thickening of the bronchial and bronchiolar campos. There has been interval worsening of extensive tree-in-bud appearance in the left lung. Status post left lower lobectomy. Trace bilateral pleural effusion. No edema or pneumothorax. Atelectatic changes in lung bases. MEDIASTINUM AND MERRILL, LOWER NECK AND AXILLA: The visualized thyroid gland is within normal limits. No evidence of thoracic lymphadenopathy by CT criteria. Esophagus appears within normal limits as seen. HEART AND VESSELS: Thoracic aorta is slightly dilated measuring 4.1 cm. Main pulmonary artery and its branches are normal in caliber. Moderate to severe coronary artery calcification. The study is not optimized for evaluation of coronary arteries. The cardiac chambers are not enlarged. No evidence of pericardial effusion. UPPER ABDOMEN: Again seen nodular thickening of the right adrenal gland. A presumed cyst in the interpolar region of the right kidney. The visualized portion of the upper abdomen appears otherwise unremarkable. CHEST WALL AND OSSEOUS STRUCTURES: There are no suspicious osseous lesions. Multilevel degenerative changes are present IMPRESSION: 1. Interval significant worsening of now severe bronchial and bronchiolar wall thickening with interval development/worsening of extensive tree-in-bud appearance more in the left lung. Findings are concerning for worsening small airway disease and infectious bronchiolitis. Also recommend correlation for aspiration. 2. Status post left lower lobectomy. 3. Slightly dilated aorta measuring 4.1 cm. 4. Moderate to severe coronary artery calcification. 5. Again seen nodular thickening of the right adrenal gland. Electronically signed by: FADIA WEI MD NR CT HEAD WO Observed: 03/04/2018 Status: F Source: [facility] 11:24 PM [facility] REPOSITORY Patient Name: DIPESH BERMUDEZ STUDY: CT HEAD WO CONTRAST; 03/04/2018 11:24 pm INDICATION: Signs/Symptoms: continued confusion and garbled speech, Lie Flat: Yes. COMPARISON: February 24. ACCESSION NUMBER(S): [id number] ORDERING CLINICIAN: DELFINA KELLOGG TECHNIQUE: Noncontrast enhanced CT brain FINDINGS: *Left occipital craniectomy and cranioplasty with associated pseudomeningocele and cortical resection defect at the lateral left cerebellum *Mild cortical volume loss and slight ventricular dilatation *No evidence of hemorrhage, extra-axial collection or infarction. IMPRESSION: *Postoperative changes as described in the left posterior fossa *No evidence of hemorrhage or infarction *THIS EXAMINATION WAS INTERPRETED AT [facility] Electronically signed by: JUDY NASSAR MD GLUCOSE-POCT Collected: 03/04/2018 Status: F Source: [facility] 5:50 PM HOSPITALS REPOSITORY TYPE CODE TESTS RESULT OUT OF RANGE REFERENCE UNITS LAB GLUP(LOINC) 74 - 99 mg/dL High 298 GLUCOSE-POCT Performed By: #### GLUPO #### [facility] [address] [place] [address] CONSULT-INFECTIOUS DISEASE Observed: 03/04/2018 Status: COMPLETED Source: [facility] 5:04 PM HOSPITALS REPOSITORY Service: Service: Infectious Disease Consult: Consult requested by (Attending Name): Delfina Kellogg Reason: persistent leukocytosis History of Present Illness: HPI: 67 male with hx of HTN, HLD, DM, COPD, CYNTHIA, meningioma s/p resection in 2013 who was admitted on 02/10 for repeat craniotomy of the infratentorial tumor with titanium mesh complicated by post op brainstem infarction who additionally has had a complicated hospitalization. He has had multiple code whites called due to desaturation, and there was concern for aspiration pneumonia/pneumonitis. On 02/17 he was started on Vanco/Cefepime/Azitro/Flagyl. There was concern for continued aspiration, so PEG was placed on 02/21. He completed a day course of Cefepime. 02/24 respiratory cultures were growing MRSA, so Vanco withas restarted with a planned end date of 03/04. It seems that his WBCs spiked around 02/22 and have been persistently high since then. He remains on Vancomycin. He is a poor historian and is not very responsive to questioning. Per nurse, no noted diarrhea, and last fever was on 03/02. ID was consulted for persistently elevated leukocytosis. 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 Social hx: hx of tobacco use Allergies: recorded as PCN allergic, could not confirm with the patient Review Family/Social History and ROS: Incomplete ROS: patient's impaired mental status Allergies: Codeine Sulfate: Unknown penicillin: Unknown insulin: Unknown Intolerances: Aspir 81: GI Upset Objective: Objective Information: T PRBPSpO2 [id number]/6298% Date/Time03/04 14: 14: 14: 14: 14:00 Range(36.4C - 36.7C ) (90 - 104 ) (16 - 18 ) (117 - 139 )/ (62 - 87 ) (93% - 98% ) Physical Exam: Constitutional: awake, arousable, minimally responsive to questioning Eyes: EOMI, anicteric Respiratory/Thorax: lungs with diminished breath sounds at the bases Cardiovascular: RRR, +S1/S2 Gastrointestinal: +BS, soft, +PEG Musculoskeletal: moves all extremities Extremities: no peripheral edema Neurological: awake, arousable Skin: PEG site c/d/i; craniectomy site c/d/ Medications: Medications: ANTI-INFECTIVES: 1. Nystatin Oral Liquid: 124726 unit(s) Oral Every 6 Hours 2. Vancomycin 1 gram IVPB/ Premixed Soln 200 mL: 200 mL IntraVenous Piggyback Every 12 Hours CARDIOVASCULAR AGENTS: 1. Silodosin (NON - Formulary): 8 mg NasoGastric Tube Daily 2. hydrALAZINE Injectable: 10 mg IntraVenous Push Every 6 Hours PRN CENTRAL NERVOUS SYSTEM AGENTS: 1. Acetaminophen: 650 mg Oral Every 6 Hours PRN 2. oxyCODONE Immediate Release: 5 mg Oral Every 4 Hours PRN 3. oxyCODONE Immediate Release: 10 mg Oral Every 4 Hours PRN 4. Valproic Acid (Depakene) Oral Liquid: 250 mg PEG Tube Every 12 Hours 5. Ondansetron Injectable: 4 mg IntraVenous Push Every 6 Hours PRN COAGULATION MODIFIERS: 1. Heparin Flush 10 unit/ mL PF Injectable PRN: 5 mL IntraVenous Flush According to Flush Policy PRN 2. Heparin SubCutaneous: 5000 unit(s) SubCutaneous Every 8 Hours GASTROINTESTINAL AGENTS: 1. Bisacodyl Rectal: 10 mg Rectal Daily PRN 2. Docusate Oral Liquid: 100 mg Oral 2 Times a Day 3. Fleet Adult (Sodium Phosphate) Rectal: 1 enema Rectal Daily PRN 4. Polyethylene Glycol: 17 gram(s) Oral Daily PRN 5. Polyethylene Glycol: 17 gram(s) Oral Daily 6. Sennosides: 2 tablet(s) Oral Daily 7. Esomeprazole Oral Packet: 40 mg NasoGastric Tube 2 Times a Day METABOLIC AGENTS: 1. Insulin Glargine (Lantus) Injectable: 35 unit(s) SubCutaneous At Bedtime 2. Insulin Lispro (HumaLOG) Injectable: 5 unit(s) SubCutaneous Every 6 Hours 3. Insulin Lispro Moderate Corrective Scale: unit(s) SubCutaneous Every 6 Hours 4. Atorvastatin: 40 mg Oral Daily 5. Dextrose 50% in Water Injectable: 25 gram(s) IntraVenous Push Every 15 Minutes PRN 6. Glucagon Injectable: 1 mg IntraMuscular Every 15 Minutes PRN MISCELLANEOUS AGENTS: 1. Lidocaine 1% Injectable (PICC KIT): 1 mL IntraDermal Once PRN 2. Nicotine 14 mg/ 24 hour TransDermal: 1 patch TransDermal Every 24 Hours NUTRITIONAL PRODUCTS: 1. Sodium Chloride 0.9% Injectable Flush: 10 mL IntraVenous Flush Every 12 Hours RESPIRATORY AGENTS: 1. Albuterol 2.5 mg/ 3 mL Nebulizer Soln: 3 mL Inhalation Every 6 Hours 2. Albuterol 2.5 mg/ 3 mL Nebulizer Soln: 3 mL Inhalation Every 2 Hours PRN 3. Fluticasone 250 microgram -Salmeterol 50 microgram/ Inh: 1 inhalation Inhalation Every 12 Hours 4. Formoterol 20 microgram/ 2 mL Neb Soln: 2 mL Inhalation Every 12 Hours 5. guaiFENesin Oral Liquid: 400 mg Oral Every 6 Hours Currently Suspended Medications 1. Lisinopril: 30 mg Oral Daily 2. amLODIPine: 10 mg Oral Daily 3. hydroCHLOROthiazide: 25 mg Oral Daily Recent Lab Results: Results: I have reviewed these laboratory results: Vancomycin Level, Trough 04-Mar-2018 14:44:00 ResultValue Vancomycin Level, Trough 16.6 Glucose_POCT Trending View [id number] 11:37:00 04-Mar-2018 05:24:00 04-Mar-2018 00:53:00 Glucose-NLVE060 H 241 H 185 H Complete Blood Count + Differential 04-Mar-2018 08:15:00 ResultValue White Blood Cell Count 23.4 H Nucleated Erythrocyte Count 0.0 Red Blood Cell Count 4.28 L HGB 11.9 L HCT 38.3 L MCV 89 MCHC 31.1 L PLT 256 RDW-CV 15.0 H Neutrophil % 83.0 Immature Granulocytes % 0.9 Lymphocyte % 7.8 Monocyte % 6.1 Eosinophil % 1.6 Basophil % 0.6 Neutrophil Count 19.37 H Lymphocyte Count 1.83 Monocyte Count 1.43 H Eosinophil Count 0.38 Basophil Count 0.14 H Renal Function Panel 04-Mar-2018 08:15:00 ResultValue Glucose, Serum 192 H NA 137 K 5.1 CL 98 Bicarbonate, Serum 31 Anion Gap, Serum 13 BUN 39 H CREAT 0.87 GFR-Non >60 GFR- >60 Calcium, Serum 9.2 Phosphorus, Serum 3.2 ALB 2.5 L Radiology Results: Results: Angio Ext Unilateral [Mar 04 2018 1:08PM] Assessment: 67 male with hx of HTN, HLD, DM, COPD, CYNTHIA, meningioma s/p resection in 2013 who was admitted on 02/10 for repeat craniotomy of the infratentorial tumor with titanium mesh complicated by post op brainstem infarction who additionally has had a complicated hospitalization. He has had multiple code whites called due to desaturation, and there was concern for aspiration pneumonia/pneumonitis. On 02/17 he was started on Vanco/Cefepime/Azitro/Flagyl. There was concern for continued aspiration, so PEG was placed on 02/21. He completed a day course of Cefepime. 02/24 respiratory cultures were growing MRSA, so Vanco was restarted with a planned end date of 03/04 to treat MRSA pneumonia. It seems that his WBCs spiked around 02/22 and have been persistently high since then. He remains on Vancomycin. Microbiology: 02/17 BCx: negative 02/22 BCx: negative 02/24 respiratory Cx: +MRSA Antibiotics: Vanco 1g q12 hours (02/17-02/22, 02/25-present) s/p Cefepime x7 days A/P: 1. persistent leukocytosis -MRSA PNA vs continued aspiration 2. hx of meningioma s/p craniectomy Recommendations: -repeat CT chest w/o contrast -check Cdiff if patient has diarrhea -D/C Vanco and start Linezolid 60mmg every 12 hours to cover the MRSA Thank you for the courtesy of the consult. All findings discussed with the attending, Dr Yosvany Friend ID fellow [id number] Signature/Cosignature/Attestation: Attending AttestationI saw and evaluated the patient. I personally obtained the gonzalez and critical portions of the history and physical exam or was physically present for gonzalez and critical portions performed by the resident/fellow. I reviewed the resident/fellows documentation and discussed the patient with the resident/fellow. I agree with the resident/fellows medical decision making as documented in the residents note. I personally evaluated the patient (as noted in the above attestation) on 05-Mar-2018 Electronic Signatures: Lisette Friend (DO (Fellow)) (Signed 04-Mar-2018 17:23) Authored: Service, History of Present Illness, Review Family/Social History and ROS, Allergies, Objective, Assessment/Recommendations, Signature/Cosignature/Attestation Ghislaine Bar) (Signed 04-Mar-2018 18:45) Authored: Signature/Cosignature/Attestation Co-Signer: Signature/Cosignature/Attestation Last Updated: 04-Mar-2018 18:45 by Ghislaine Bar) VANCOMYCIN,TROUGH Collected: Status: F Source: [facility] 03/04/2018 2:44 PM HOSPITALS REPOSITORY TYPE CODE TESTS RESULT OUT OF RANGE REFERENCE UNITS LAB VANCT(LOINC 5.0 - 20.0 ug/mL ) 16.6 VANCOMYCIN,T ROUGH Result Comment: Vancomycin levels should be interpreted in conjunction with the dose, disease being treated, vancomycin JENIFFER, time of draw (trough concentrations should be obtained just before the next dose at steady-state), and other clinical information. Trough concentrations of 15-20 ug/mL are desired for severe infections. Ref.: Am J Health-Syst Pharm 66: 83-98, 2008. Performed By: #### VANCT #### [facility] [address] [place] [id number] VANCOMYCIN,TROUGH Collected: Status: CANCELLED Source: [facility] 03/04/2018 2:39 PM HOSPITALS REPOSITORY Order Comment: TEST VANCOMYCIN,TROUGH WAS CANCELLED, 03/07/2018 10:10 NO SPECIMEN RECEIVED IN LAB. TYPE CODE TESTS RESULT OUT OF REFERENCE UNITS RANGE LAB VANCT(LOINC ) Canceled VANCOMYCIN,T ROUGH Performed By: #### VANCT #### [facility] [address] [place] [address] DAILY PROGRESS Observed: 03/04/2018 Status: COMPLETED Source: [facility] NOTE-MEDICINE 11:59 AM HOSPITALS REPOSITORY Service: Medicine Subjective Data: DIPESH BERMUDEZ is a 67 year old Male who is Hospital Day # 23 and POD #21 for left retrosigmoid craniotomy for tumor resection. Objective Data: Objective Information: ---- Intake and Output ----- Mn/Dy/Year TimeIntakeOutputNet Mar 04, 2018 6:00 am000 Mar 03, 2018 10:00 pm000 Mar 03, 2018 2:00 [id number] The Intake and Output Totals for the last 24 hours are: IntakeOutputNet [id number] Physical Exam: Constitutional: asleep this afternoon was not answering orientation questions NAD ENMT: lips and tongue dry Respiratory/Thorax: CTAB Cardiovascular: RRR Gastrointestinal: soft, nontender, nondistended, BSX4 PEG tube site intact no redness or drainage noted Extremities: NO edema noted Lymphatic: No significant lymphadenopathy Skin: intact Medication: Medications: Continuous Medications No continuous medications are active Scheduled Medications 1. Albuterol 2.5 mg/ 3 mL Nebulizer Soln: 3 mL Inhalation Every 6 Hours 2. Atorvastatin: 40 mg Oral Daily 3. Docusate Oral Liquid: 100 mg Oral 2 Times a Day 4. Esomeprazole Oral Packet: 40 mg NasoGastric Tube 2 Times a Day 5. Fluticasone 250 microgram -Salmeterol 50 microgram/ Inh: 1 inhalation Inhalation Every 12 Hours 6. Formoterol 20 microgram/ 2 mL Neb Soln: 2 mL Inhalation Every 12 Hours 7. guaiFENesin Oral Liquid: 400 mg Oral Every 6 Hours 8. Heparin SubCutaneous: 5000 unit(s) SubCutaneous Every 8 Hours 9. Insulin Glargine (Lantus) Injectable: 35 unit(s) SubCutaneous At Bedtime 10. Insulin Lispro (HumaLOG) Injectable: 5 unit(s) SubCutaneous Every 6 Hours 11. Insulin Lispro Moderate Corrective Scale: unit(s) SubCutaneous Every 6 Hours 12. Nicotine 14 mg/ 24 hour TransDermal: 1 patch TransDermal Every 24 Hours 13. Nystatin Oral Liquid: 669187 unit(s) Oral Every 6 Hours 14. Polyethylene Glycol: 17 gram(s) Oral Daily 15. Sennosides: 2 tablet(s) Oral Daily 16. Silodosin (NON - Formulary): 8 mg NasoGastric Tube Daily 17. Sodium Chloride 0.9% Injectable Flush: 10 mL IntraVenous Flush Every 12 Hours 18. Valproic Acid (Depakene) Oral Liquid: 250 mg PEG Tube Every 12 Hours 19. Vancomycin 1 gram IVPB/ Premixed Soln 200 mL: 200 mL IntraVenous Piggyback Every 12 Hours PRN Medications 1. Acetaminophen: 650 mg Oral Every 6 Hours 2. Albuterol 2.5 mg/ 3 mL Nebulizer Soln: 3 mL Inhalation Every 2 Hours 3. Bisacodyl Rectal: 10 mg Rectal Daily 4. Dextrose 50% in Water Injectable: 25 gram(s) IntraVenous Push Every 15 Minutes 5. Fleet Adult (Sodium Phosphate) Rectal: 1 enema Rectal Daily 6. Glucagon Injectable: 1 mg IntraMuscular Every 15 Minutes 7. Heparin Flush 10 unit/ mL PF Injectable PRN: 5 mL IntraVenous Flush According to Flush Policy 8. hydrALAZINE Injectable: 10 mg IntraVenous Push Every 6 Hours 9. Lidocaine 1% Injectable (PICC KIT): 1 mL IntraDermal Once 10. Ondansetron Injectable: 4 mg IntraVenous Push Every 6 Hours 11. oxyCODONE Immediate Release: 5 mg Oral Every 4 Hours 12. oxyCODONE Immediate Release: 10 mg Oral Every 4 Hours 13. Polyethylene Glycol: 17 gram(s) Oral Daily Currently Suspended Medications 1. amLODIPine: 10 mg Oral Daily 2. hydroCHLOROthiazide: 25 mg Oral Daily 3. Lisinopril: 30 mg Oral Daily Recent Lab Results: Results: I have reviewed these laboratory results: Glucose_POCT Trending View [id number] 11:37:00 04-Mar-2018 05:24:00 Glucose-MWLB178 H 241 H Complete Blood Count + Differential Trending View [id number] 08:15:00 03-Mar-2018 01:57:00 White Blood Cell Count23.4 H 21.8 H Nucleated Erythrocyte Count0.0 0.0 Red Blood Cell Count4.28 L 4.11 L HGB11.9 L 11.4 L HCT38.3 L 35.1 L MCV89 85 MCHC31.1 L 32.5 UKG007 281 RDW-CV15.0 H 14.6 H Neutrophil %83.0 81.3 Immature Granulocytes %0.9 1.1 Lymphocyte %7.8 8.9 Monocyte %6.1 6.6 Eosinophil %1.6 1.5 Basophil %0.6 0.6 Neutrophil Count19.37 H 17.72 H Lymphocyte Count1.83 1.93 Monocyte Count1.43 H 1.43 H Eosinophil Count0.38 0.32 Basophil Count0.14 H 0.13 H Renal Function Panel 04-Mar-2018 08:15:00 ResultValue Glucose, Serum 192 H NA 137 K 5.1 CL 98 Bicarbonate, Serum 31 Anion Gap, Serum 13 BUN 39 H CREAT 0.87 GFR-Non >60 GFR- >60 Calcium, Serum 9.2 Phosphorus, Serum 3.2 ALB 2.5 L Radiology Results: Results: Impression: 1. Question mild perihilar edema but no lobar or segmental consolidation. Follow-up with PA and lateral x-ray if there is continued concern for developing pneumonia Xray Chest 1 View [Feb 28 2018 12:18PM] Impression: 1. Nonobstructive bowel gas pattern. Left basilar atelectasis and correlate with developing infiltrate left pneumonia Xray Abdomen AP View [Feb 27 2018 12:22PM] Assessment and Plan: Assessment: This is a pleasant 67 year old male with history significant for HTN, type II DM, COPD, and meningioma s/p craniotomy with resection 2013 (done at [facility]) who was admitted for repeat surgical resection of meningioma as angiogram prior to admit had no targets for embolization. 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 Postoperative course complicated by dysphagia, brainstem infarction as well as hypoxia concerning for aspiration pneumonia necessitating transfer to ICU. Sputum grew MRSA. He ended up failing modified barium swallow by speech therapy. ENT was consulted and performed flexible laryngoscopy that noted generalized pharyngeal weakness with gross aspiration. GI was consulted and placed PEG tube on 02/21/18 with EGD at that time also noting grade D esophagitis. On 02/24/18 neurosurgery performed lumbar puncture that was unrevealing. Transferred from step down unit to regular nursing floor for further management by medicine service. in a shared visit with Dr. Kellogg Meningioma s/p retrosigmoid craniectomy with postop brainstem infarction: LP cultures from 02/24 negative - continue PRN oxycodone - outpatient follow up with Dr. Cardoza in neurosurgery on 03/21/18 at 3:15 PM Aspiration/MRSA pneumonia: - ID consulted, appreciate recs - check CT chest - discontinue vancomycin - start linezolid 600 mg IV q12h - check CBC daily Persistent leukocytosis WBC uptrending to 23.4 although patient is denying diarrhea had a few loose stools recent blood culture and urine culture no growth, afebrile LP culture from 02/24 no growth - check c.diff pcr - ID consulted awaiting recs - check CT chest - d/c vanco - start linezolid 600 mg IVP q12h - repeat cbc in am - monitor Dysphagia s/p PEG tube placement: - NPO - continue Diabetic Source tube feedings - needs repeat modified barium swallow in 4-6 weeks (per verbal recommendations by speech therapy) - oral hygiene Grade D esophagitis: - continue PPI BID x3 months - will need outpatient follow up in GI clinic in 3 months COPD: - continue albuterol nebulizers and Advair HTN: BP controlled 117/68 - hold all schedule antihypertensives for now - continue PRN hydralazine Type II DM: uncontrolled BS 233-241 - continue Lantus to 35 units at bedtime - continue scheduled Lispro 5 units every 6 hours - continue Lispro sliding scale with hypoglycemia protocol DVT prophylaxis: - subcutaneous heparin Miscellaneous: - continue home valproic acid Code status: - DNAR/DNI Discharge disposition: - PT/OT recommending acute rehab - given leukocytosis and ID consulted, possible discharge wednesday or wednesday Signature/Cosignature/Attestation: Provider/Team Contact Info-Pager [phone] Attending Only - Shared Visit with Advanced Practice ProviderThis is a shared visit. I have reviewed the Advanced Practice Providers encounter note, approve the Advanced Practice Providers documentation, and provide the following additional information from my personal encounter. Comments/ Additional Findings was seen and examined today on rounds with the assistant womens volleyball coach. He had no new complaints . On exam S1S2 normal. Chest clear to anterior auscultation. Abdomen , soft nontender to palpation . No guarding . Peg tube noted. Imp; has no physical complaints , but he continues to have a persistent peripheral leucocytosis . Will ask id to see him. If he is having diarrhea would send stool for c.diff . Electronic Signatures: Jr Jacobs ([employer] OPERATOR-GROUP MANAGER) (Signed 04-Mar-2018 17:42) Authored: Service, Subjective Data, Objective Data, Assessment and Plan, Signature/Cosignature/Attestation Delfina Kellogg) (Signed 04-Mar-2018 17:53) Authored: Signature/Cosignature/Attestation Co-Signer: Objective Data, Assessment and Plan Last Updated: 04-Mar-2018 17:53 by Delfina Kellogg) GLUCOSE-POCT Collected: 03/04/2018 Status: F Source: [facility]ABEL 11:37 AM HOSPITALS REPOSITORY TYPE CODE TESTS RESULT OUT OF RANGE REFERENCE UNITS LAB GLUP(LOINC) 74 - 99 mg/dL High 233 GLUCOSE-POCT Performed By: #### GLUPO #### [facility] [address] [place] [address] CBC AND DIFFERENTIAL Collected: 03/04/2018 Status: F Source: [facility] 8:15 AM HOSPITALS REPOSITORY TYPE CODE TESTS RESULT OUT OF REFERENCE UNITS RANGE LAB WBCR(LOINC 4.4 - 11.3 x10E9/L ) WBC High 23.4 LAB NRBC(LOINC 0.0-0.0 /100 WBC ) NUCLEATED RBC 0.0 LAB RBCCT(LOIN 4.50 - 5.90 x10E12/L C) Low RBC 4.28 LAB HGB(LOINC) 13.5 - 17.5 g/dL Low HGB 11.9 LAB HCT(LOINC) 41.0 - 52.0 % Low HCT 38.3 LAB MCV(LOINC) 80 - 100 fL MCV 89 LAB MCHC2(LOIN 32.0 - 36.0 g/dL C) Low MCHC 31.1 LAB PLTCT(LOIN 150 - 450 x10E9/L C) PLT 256 LAB RDWCV(LOIN 11.5 - 14.5 % C) RDW-CV High 15.0 LAB NEUT(LOINC 40.0 - 80.0 % ) % NEUTROPHIL 83.0 LAB IG(LOINC) 0.0 - 0.9 % % AUTOMATED 0.9 IMMATURE GRAN Result Comment: Percent differential counts (%) should be interpreted in the context of the absolute cell counts (cells/L). LAB LYMPH(LOINC) 13.0 - 44.0 % % LYMPHOCYTE 7.8 LAB MONO(LOINC) 2.0 - 10.0 % % MONOCYTE 6.1 LAB EOS(LOINC) 0.0 - 6.0 % % EOSINOPHIL 1.6 LAB BASO(LOINC) 0.0 - 2.0 % % BASOPHIL 0.6 LAB #NEUT(LOINC) 1.20 - 7.70 x10E9/L NEUTROPHIL High 19.37 LAB #LYMP(LOINC) 1.20 - 4.80 x10E9/L LYMPHOCYTE 1.83 LAB #MONO(LOINC) 0.10 - 1.00 x10E9/L MONOCYTE High 1.43 LAB #EOS(LOINC) 0.00 - 0.70 x10E9/L EOSINOPHIL 0.38 LAB #BASO(LOINC) 0.00 - 0.10 x10E9/L BASOPHIL High 0.14 Performed By: #### CBCDF #### [facility] [address] [place] [address] RENAL FUNCTION PANEL Collected: 03/04/2018 Status: F Source: ID[facility]EL 8:15 AM HOSPITALS REPOSITORY TYPE CODE TESTS RESULT OUT OF REFERENCE UNITS RANGE LAB GLU(LOINC) 74 - 99 mg/dL GLUCOSE High 192 LAB SOD(LOINC) 136 - 145 mmol/L SODIUM 137 LAB K(LOINC) 3.5 - 5.3 mmol/L POTASSIUM 5.1 LAB CHLOR(LOIN 98 - 107 mmol/L C) CHLORIDE 98 LAB BIC(LOINC) 21 - 32 mmol/L BICARBONATE 31 LAB ANGAP(LOIN 10 - 20 mmol/L C) ANION GAP 13 LAB UREA(LOINC 6 - 23 mg/dL ) UREA High NITROGEN 39 LAB CREA(LOINC 0.50 - 1.30 mg/dL ) CREATININE 0.87 LAB GFRFN(LOIN >60 mL/min/1.7 C) 3m2 GFR-NON AM. >60 LAB GFRAA(LOIN >60 mL/min/1.7 C) 3m2 GFR- AM. >60 Result Comment: CALCULATIONS OF ESTIMATED GFR ARE PERFORMED USING THE MDRD STUDY EQUATION FOR THE IDMS-TRACEABLE CREATININE METHODS. CLIN CHEM 2007;53:766-72 LAB CA(LOINC) 8.6 - 10.6 mg/dL CALCIUM 9.2 LAB PHOS(LOINC) 2.5 - 4.9 mg/dL PHOSPHORUS 3.2 Result Comment: The performance characteristics of phosphorus testing in heparinized plasma have been validated by the individual laboratory site where testing is performed. Testing on heparinized plasma is not approved by the FDA; however, such approval is not necessary. LAB ALB(LOINC) 3.4 - 5.0 g/dL Low ALBUMIN 2.5 Performed By: #### RENAL #### [facility] [address] [place] [address] GLUCOSE-POCT Collected: 03/04/2018 Status: F Source: [facility]EL 5:24 AM HOSPITALS REPOSITORY TYPE CODE TESTS RESULT OUT OF RANGE REFERENCE UNITS LAB GLUP(LOINC) 74 - 99 mg/dL High 241 GLUCOSE-POCT Performed By: #### GLUPO #### [facility] [address] [place] [address] GLUCOSE-POCT Collected: 03/04/2018 Status: F Source: [facility] 12:53 AM HOSPITALS REPOSITORY TYPE CODE TESTS RESULT OUT OF RANGE REFERENCE UNITS LAB GLUP(LOINC) 74 - 99 mg/dL High 185 GLUCOSE-POCT Performed By: #### GLUPO #### [facility] [address] [place] [address] GLUCOSE-POCT Collected: 03/03/2018 Status: F Source: [facility]EL 6:09 PM HOSPITALS REPOSITORY TYPE CODE TESTS RESULT OUT OF RANGE REFERENCE UNITS LAB GLUP(LOINC) 74 - 99 mg/dL High 296 GLUCOSE-POCT Performed By: #### GLUPO #### [facility] [address] [place] [address] GLUCOSE-POCT Collected: 03/03/2018 Status: F Source: [facility]EL 12:40 PM HOSPITALS REPOSITORY TYPE CODE TESTS RESULT OUT OF RANGE REFERENCE UNITS LAB GLUP(LOINC) 74 - 99 mg/dL High 242 GLUCOSE-POCT Performed By: #### GLUPO #### [facility] [address] [place] [address] DAILY PROGRESS Observed: 03/03/2018 Status: COMPLETED Source: [facility] NOTE-MEDICINE 10:34 AM HOSPITALS REPOSITORY Service: Medicine Subjective Data: DIPESH BERMUDEZ is a 67 year old Male who is Hospital Day # 22 and POD #20 for left retrosigmoid craniotomy for tumor resection. Denies any complaints. Objective Data: Objective Information: T PRBPSpO2 [id number]/7194% Date/Time03/03 7: 7: 7: 7: 7:37 Range(37.6C - 38.2C ) (84 - 97 ) (17 - 22 ) (128 - 132 )/ (67 - 75 ) (90% - 94% ) Highest temp of 38.2 C was recorded at 03/02 14:45 Physical Exam: Constitutional: Lying in bed in NAD Eyes: Clear sclera. ENMT: Dry mucous membranes Head/Neck: Craniectomy incision intact. Respiratory/Thorax: Nonlabored. Lungs CTA bilaterally. Cardiovascular: RRR. Normal S1/S2. No M/R/G noted. Gastrointestinal: Abdomen soft and nontender. +BS noted. PEG tube intact. Musculoskeletal: Right sided weakness Extremities: No peripheral edema Neurological: A/Ox3. Dysarthria noted. Psychological: pleasant affect Skin: Warm and dry; no rashes or lesions Medication: Medications: Continuous Medications No continuous medications are active Scheduled Medications 1. Albuterol 2.5 mg/ 3 mL Nebulizer Soln: 3 mL Inhalation Every 6 Hours 2. Atorvastatin: 40 mg Oral Daily 3. Docusate Oral Liquid: 100 mg Oral 2 Times a Day 4. Esomeprazole Oral Packet: 40 mg NasoGastric Tube 2 Times a Day 5. Fluticasone 250 microgram -Salmeterol 50 microgram/ Inh: 1 inhalation Inhalation Every 12 Hours 6. Formoterol 20 microgram/ 2 mL Neb Soln: 2 mL Inhalation Every 12 Hours 7. guaiFENesin Oral Liquid: 400 mg Oral Every 6 Hours 8. Heparin SubCutaneous: 5000 unit(s) SubCutaneous Every 8 Hours 9. Insulin Glargine (Lantus) Injectable: 35 unit(s) SubCutaneous At Bedtime 10. Insulin Lispro (HumaLOG) Injectable: 5 unit(s) SubCutaneous Every 6 Hours 11. Insulin Lispro Moderate Corrective Scale: unit(s) SubCutaneous Every 6 Hours 12. Nicotine 14 mg/ 24 hour TransDermal: 1 patch TransDermal Every 24 Hours 13. Nystatin Oral Liquid: 457801 unit(s) Oral Every 6 Hours 14. Polyethylene Glycol: 17 gram(s) Oral Daily 15. Sennosides: 2 tablet(s) Oral Daily 16. Silodosin (NON - Formulary): 8 mg NasoGastric Tube Daily 17. Sodium Chloride 0.9% Injectable Flush: 10 mL IntraVenous Flush Every 12 Hours 18. Valproic Acid (Depakene) Oral Liquid: 250 mg PEG Tube Every 12 Hours 19. Vancomycin 1 gram IVPB/ Premixed Soln 200 mL: 200 mL IntraVenous Piggyback Every 12 Hours PRN Medications 1. Acetaminophen: 650 mg Oral Every 6 Hours 2. Albuterol 2.5 mg/ 3 mL Nebulizer Soln: 3 mL Inhalation Every 2 Hours 3. Bisacodyl Rectal: 10 mg Rectal Daily 4. Dextrose 50% in Water Injectable: 25 gram(s) IntraVenous Push Every 15 Minutes 5. Fleet Adult (Sodium Phosphate) Rectal: 1 enema Rectal Daily 6. Glucagon Injectable: 1 mg IntraMuscular Every 15 Minutes 7. Heparin Flush 10 unit/ mL PF Injectable PRN: 5 mL IntraVenous Flush According to Flush Policy 8. hydrALAZINE Injectable: 10 mg IntraVenous Push Every 6 Hours 9. Lidocaine 1% Injectable (PICC KIT): 1 mL IntraDermal Once 10. Ondansetron Injectable: 4 mg IntraVenous Push Every 6 Hours 11. oxyCODONE Immediate Release: 5 mg Oral Every 4 Hours 12. oxyCODONE Immediate Release: 10 mg Oral Every 4 Hours 13. Polyethylene Glycol: 17 gram(s) Oral Daily Currently Suspended Medications 1. amLODIPine: 10 mg Oral Daily 2. hydroCHLOROthiazide: 25 mg Oral Daily 3. Lisinopril: 30 mg Oral Daily Recent Lab Results: Results: I have reviewed these laboratory results: Glucose_POCT Trending View [id number] 05:52:00 03-Mar-2018 00:29:00 Glucose-[id number] H 222 H Complete Blood Count + Differential 03-Mar-2018 01:57:00 ResultValue White Blood Cell Count 21.8 H Nucleated Erythrocyte Count 0.0 Red Blood Cell Count 4.11 L HGB 11.4 L HCT 35.1 L MCV 85 MCHC 32.5 PLT 281 RDW-CV 14.6 H Neutrophil % 81.3 Immature Granulocytes % 1.1 Lymphocyte % 8.9 Monocyte % 6.6 Eosinophil % 1.5 Basophil % 0.6 Neutrophil Count 17.72 H Lymphocyte Count 1.93 Monocyte Count 1.43 H Eosinophil Count 0.32 Basophil Count 0.13 H Renal Function Panel 03-Mar-2018 01:57:00 ResultValue Glucose, Serum 231 H NA 136 K 5.2 CL 98 Bicarbonate, Serum 34 H Anion Gap, Serum 9 L BUN 41 H CREAT 0.92 GFR-Non >60 GFR- >60 Calcium, Serum 9.2 Phosphorus, Serum 2.5 ALB 2.4 L Vancomycin Level, Trough 03-Mar-2018 01:57:00 ResultValue Vancomycin Level, Trough 15.4 Assessment and Plan: Assessment: This is a pleasant 67 year old male with history significant for HTN, type II DM, COPD, and meningioma s/p craniotomy with resection 2013 (done at [facility]) who was admitted for repeat surgical resection of meningioma as angiogram prior to admit had no targets for embolization. 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 Postoperative course complicated by dysphagia, brainstem infarction as well as hypoxia concerning for aspiration pneumonia necessitating transfer to ICU. Sputum grew MRSA. He ended up failing modified barium swallow by speech therapy. ENT was consulted and performed flexible laryngoscopy that noted generalized pharyngeal weakness with gross aspiration. GI was consulted and placed PEG tube on 02/21/18 with EGD at that time also noting grade D esophagitis. On 02/24/18 neurosurgery performed lumbar puncture that was unrevealing. Transferred from step down unit to regular nursing floor for further management by medicine service. in a shared visit with Dr. Kellogg Meningioma s/p retrosigmoid craniectomy with postop brainstem infarction: LP cultures with no growth so far. - continue PRN oxycodone - follow up cultures from LP done on 02/24/18 - outpatient follow up with Dr. Cardoza in neurosurgery on 03/21/18 at 3:15 PM Aspiration/MRSA pneumonia: - continue IV vancomycin 1 gram every 12 hours (trough before 2nd dose therapeutic at 15.4-->it was spot checked in light of recent supratherapeutic level); planned stop date 03/04/18 - repeat vancomycin trough before 4th dose - check CBC daily Dysphagia s/p PEG tube placement: - NPO - continue Diabetic Source tube feedings - needs repeat modified barium swallow in 4-6 weeks (per verbal recommendations by speech therapy) Grade D esophagitis: - continue PPI BID x3 months - will need outpatient follow up in GI clinic in 3 months COPD: - continue albuterol nebulizers and Advair - stop budesonide as Advair has corticosteroid component HTN: BP controlled - hold all schedule antihypertensives for now - continue PRN hydralazine Type II DM: Blood sugars poorly controlled today. - increase Lantus to 35 units at bedtime - continue scheduled Lispro 5 units every 6 hours - continue Lispro sliding scale with hypoglycemia protocol DVT prophylaxis: - subcutaneous heparin Miscellaneous: - continue home valproic acid Code status: - DNAR/DNI Discharge disposition: - PT/OT recommending acute rehab - do not anticipate discharge at least until end of week as still completing course of IV vancomycin - updated nephew Donta on plan of care via telephone Signature/Cosignature/Attestation: Attending Only - Shared Visit with Advanced Practice ProviderThis is a shared visit. I have reviewed the Advanced Practice Providers encounter note, approve the Advanced Practice Providers documentation, and provide the following additional information from my personal encounter. Comments/ Additional Findings was seen and examined today on rounds with the assistant womens volleyball coach. He had no new complaints . On exam Left sided occipital surgical wound healing well. S1S2 normal. Chest clear to anterior auscultation. Abdomen soft , nontender to palpation .No guarding. Peg tube noted . Plan - Continue vancomycin until tomorrow. The persistent peripheral leucocytosis is concerning. Try to improve glycemic control . Electronic Signatures: Brooke Mullen ([employer] OPERATOR-GROUP MANAGER) (Signed 03-Mar-2018 15:56) Authored: Service, Subjective Data, Objective Data, Assessment and Plan, Signature/Cosignature/Attestation Delfina Kellogg) (Signed 03-Mar-2018 17:31) Authored: Signature/Cosignature/Attestation Co-Signer: Service, Subjective Data, Objective Data, Assessment and Plan, Signature/Cosignature/Attestation Last Updated: 03-Mar-2018 17:31 by Delfina Kellogg) GLUCOSE-POCT Collected: 03/03/2018 Status: F Source: [facility] 5:52 AM [facility]ITALS REPOSITORY TYPE CODE TESTS RESULT OUT OF RANGE REFERENCE UNITS LAB GLUP(LOINC) 74 - 99 mg/dL High 238 GLUCOSE-POCT Performed By: #### GLUPO #### [facility] [address] [place] [address] CBC AND DIFFERENTIAL Collected: 03/03/2018 Status: F Source: [facility] 1:57 AM [facility]ITALS REPOSITORY TYPE CODE TESTS RESULT OUT OF REFERENCE UNITS RANGE LAB WBCR(LOINC 4.4 - 11.3 x10E9/L ) WBC High 21.8 LAB NRBC(LOINC 0.0-0.0 /100 WBC ) NUCLEATED RBC 0.0 LAB RBCCT(LOIN 4.50 - 5.90 x10E12/L C) Low RBC 4.11 LAB HGB(LOINC) 13.5 - 17.5 g/dL Low HGB 11.4 LAB HCT(LOINC) 41.0 - 52.0 % Low HCT 35.1 LAB MCV(LOINC) 80 - 100 fL MCV 85 LAB MCHC2(LOIN 32.0 - 36.0 g/dL C) MCHC 32.5 LAB PLTCT(LOIN 150 - 450 x10E9/L C) PLT 281 LAB RDWCV(LOIN 11.5 - 14.5 % C) RDW-CV High 14.6 LAB NEUT(LOINC 40.0 - 80.0 % ) % NEUTROPHIL 81.3 LAB IG(LOINC) 0.0 - 0.9 % % AUTOMATED 1.1 IMMATURE GRAN Result Comment: Percent differential counts (%) should be interpreted in the context of the absolute cell counts (cells/L). LAB LYMPH(LOINC) 13.0 - 44.0 % % LYMPHOCYTE 8.9 LAB MONO(LOINC) 2.0 - 10.0 % % MONOCYTE 6.6 LAB EOS(LOINC) 0.0 - 6.0 % % EOSINOPHIL 1.5 LAB BASO(LOINC) 0.0 - 2.0 % % BASOPHIL 0.6 LAB #NEUT(LOINC) 1.20 - 7.70 x10E9/L NEUTROPHIL High 17.72 LAB #LYMP(LOINC) 1.20 - 4.80 x10E9/L LYMPHOCYTE 1.93 LAB #MONO(LOINC) 0.10 - 1.00 x10E9/L MONOCYTE High 1.43 LAB #EOS(LOINC) 0.00 - 0.70 x10E9/L EOSINOPHIL 0.32 LAB #BASO(LOINC) 0.00 - 0.10 x10E9/L BASOPHIL High 0.13 Performed By: #### CBCDF #### [facility] [address] [place] [address] VANCOMYCIN,TROUGH Collected: Status: F Source: [facility] 03/03/2018 1:57 AM HOSPITALS REPOSITORY TYPE CODE TESTS RESULT OUT OF RANGE REFERENCE UNITS LAB VANCT(LOINC 5.0 - 20.0 ug/mL ) 15.4 VANCOMYCIN,T ROUGH Result Comment: Vancomycin levels should be interpreted in conjunction with the dose, disease being treated, vancomycin JENIFFER, time of draw (trough concentrations should be obtained just before the next dose at steady-state), and other clinical information. Trough concentrations of 15-20 ug/mL are desired for severe infections. Ref.: Am J Health-Syst Pharm 66: 83-98, 2008. Performed By: #### VANCT #### [facility] [address] [place] [address] RENAL FUNCTION PANEL Collected: 03/03/2018 Status: F Source: [facility] 1:57 [facility]OSPITALS REPOSITORY TYPE CODE TESTS RESULT OUT OF REFERENCE UNITS RANGE LAB GLU(LOINC) 74 - 99 mg/dL GLUCOSE High 231 LAB SOD(LOINC) 136 - 145 mmol/L SODIUM 136 LAB K(LOINC) 3.5 - 5.3 mmol/L POTASSIUM 5.2 LAB CHLOR(LOIN 98 - 107 mmol/L C) CHLORIDE 98 LAB BIC(LOINC) 21 - 32 mmol/L BICARBONATE High 34 LAB ANGAP(LOIN 10 - 20 mmol/L C) Low ANION GAP 9 LAB UREA(LOINC 6 - 23 mg/dL ) UREA High NITROGEN 41 LAB CREA(LOINC 0.50 - 1.30 mg/dL ) CREATININE 0.92 LAB GFRFN(LOIN >60 mL/min/1.7 C) 3m2 GFR-NON AM. >60 LAB GFRAA(LOIN >60 mL/min/1.7 C) 3m2 GFR- AM. >60 Result Comment: CALCULATIONS OF ESTIMATED GFR ARE PERFORMED USING THE MDRD STUDY EQUATION FOR THE IDMS-TRACEABLE CREATININE METHODS. CLIN CHEM 2007;53:766-72 LAB CA(LOINC) 8.6 - 10.6 mg/dL CALCIUM 9.2 LAB PHOS(LOINC) 2.5 - 4.9 mg/dL PHOSPHORUS 2.5 Result Comment: The performance characteristics of phosphorus testing in heparinized plasma have been validated by the individual laboratory site where testing is performed. Testing on heparinized plasma is not approved by the FDA; however, such approval is not necessary. LAB ALB(LOINC) 3.4 - 5.0 g/dL Low ALBUMIN 2.4 Performed By: #### RENAL #### [facility] [address] [place] [address] VANCOMYCIN,TROUGH Collected: Status: CANCELLED Source: [facility] 03/03/2018 1:57 AM [facility]OSPITALS REPOSITORY Order Comment: TEST VANCOMYCIN,TROUGH WAS CANCELLED, 03/07/2018 03:38 No specimen received. TYPE CODE TESTS RESULT OUT OF REFERENCE UNITS RANGE LAB VANCT(LOINC ) Canceled VANCOMYCIN,T ROUGH Performed By: #### VANCT #### [facility] [address] [place] [address] GLUCOSE-POCT Collected: 03/03/2018 Status: F Source: [facility] 12:29 AM [facility]OSPITALS REPOSITORY TYPE CODE TESTS RESULT OUT OF RANGE REFERENCE UNITS LAB GLUP(LOINC) 74 - 99 mg/dL High 222 GLUCOSE-POCT Performed By: #### GLUPO #### [facility] [address] [place] [address] CLINICAL EVENT Observed: 03/02/2018 Status: UNK Source: [facility]OUN[facility] 6:54 PM [facility]OSPITALS REPOSITORY Event: Topic: Rounds Details: was seen and examined today on rounds with the assistant womens volleyball coach. He had no complaints . Continue antibiotics for pneumonia. Electronic Signatures: Delfina Kellogg) (Signed 02-Mar-2018 18:57) Authored: Event Last Updated: 02-Mar-2018 18:57 by Delfina Kellogg) GLUCOSE-POCT Collected: 03/02/2018 Status: F Source: [facility] 6:06 PM [facility]OSPITALS REPOSITORY TYPE CODE TESTS RESULT OUT OF RANGE REFERENCE UNITS LAB GLUP(LOINC) 74 - 99 mg/dL High 215 GLUCOSE-POCT Performed By: #### GLUPO #### [facility] [address] [place] [address] GLUCOSE-POCT Collected: 03/02/2018 Status: F Source: [facility] 11:29 AM [facility]OSPITALS REPOSITORY TYPE CODE TESTS RESULT OUT OF RANGE REFERENCE UNITS LAB GLUP(LOINC) 74 - 99 mg/dL High 260 GLUCOSE-POCT Performed By: #### GLUPO #### [facility] [address] [place] [address] CLINICAL INTERVENTION - Observed: 03/02/2018 Status: UNK Source: [facility] 11:20 AM [facility]IT[facility] REPOSITORY Pharmacist's Clinical Intervention: Active and Pending Medications: Vancomycin 750 mg/ D5W IVPB Premixed Soln 150 mL, Every 12 Hours Recommended Infusion Time: 45 minute(s), 02-Mar-2018, Active Reason for pharmacist's clinical intervention: Dosage change, Frequency change Dosage change: Dosage choice Frequency change: Frequency choice Pharmacist intervention: Contacted physician Type of recommendation: Pharmacokinetics Is this intervention medication reconciliation related: No Expected outcome and basis: Enhance therapeutic effect/increase quality, Order clarified or corrected Time Required: 1 - 5 minutes, Discussed with Paz GONZALES. Suggested increase to 1.5GM q12h, since est crcl 80-90. Paz GONZALES and I noted levels, times of draw and dose as well as specific doses. I suggested giving at least 1gm, get a true trough and consider going up based on good renal fx Electronic Signatures: Robert Pool () (Signed 02-Mar-2018 11:24) Authored: Pharmacist's Clinical Intervention Last Updated: 02-Mar-2018 11:24 by Robert Pool () DAILY PROGRESS Observed: 03/02/2018 Status: COMPLETED Source: [facility] 10:37 AM [facility]OS[facility]ITALS REPOSITORY Service: Medicine Subjective Data: DIPESH BERMUDEZ is a 67 year old Male who is Hospital Day # 21 and POD #19 for left retrosigmoid craniotomy for tumor resection. Denies any complaints. Objective Data: Objective Information: T PRBPSpO2 [id number]/7590% Date/Time03/02 14:4510/17 14: 14: 14: 14:45 Range(35.6C - 38.2C ) (72 - 94 ) (16 - 22 ) (132 - 150 )/ (75 - 88 ) (90% - 100% ) Highest temp of 38.2 C was recorded at 03/02 14:45 Physical Exam: Constitutional: Lying in bed in NAD Eyes: Clear sclera. ENMT: Dry mucous membranes Head/Neck: Craniectomy incision intact. Respiratory/Thorax: Nonlabored. Lungs CTA bilaterally. Cardiovascular: RRR. Normal S1/S2. No M/R/G noted. Gastrointestinal: Abdomen soft and nontender. +BS noted. PEG tube intact. Musculoskeletal: Right sided weakness Extremities: No peripheral edema Neurological: A/Ox3. Dysarthria noted. Psychological: pleasant affect Skin: Warm and dry; no rashes or lesions Medication: Medications: Continuous Medications No continuous medications are active Scheduled Medications 1. Albuterol 2.5 mg/ 3 mL Nebulizer Soln: 3 mL Inhalation Every 6 Hours 2. Atorvastatin: 40 mg Oral Daily 3. Budesonide 0.25 mg/ 2 mL Nebulizer Soln: 2 mL Inhalation Every 12 Hours 4. Docusate Oral Liquid: 100 mg Oral 2 Times a Day 5. Esomeprazole Oral Packet: 40 mg NasoGastric Tube 2 Times a Day 6. Fluticasone 250 microgram -Salmeterol 50 microgram/ Inh: 1 inhalation Inhalation Every 12 Hours 7. Formoterol 20 microgram/ 2 mL Neb Soln: 2 mL Inhalation Every 12 Hours 8. guaiFENesin Oral Liquid: 400 mg Oral Every 6 Hours 9. Heparin SubCutaneous: 5000 unit(s) SubCutaneous Every 8 Hours 10. Insulin Glargine (Lantus) Injectable: 30 unit(s) SubCutaneous At Bedtime 11. Insulin Lispro (HumaLOG) Injectable: 5 unit(s) SubCutaneous Every 6 Hours 12. Insulin Lispro Moderate Corrective Scale: unit(s) SubCutaneous Every 6 Hours 13. Nicotine 14 mg/ 24 hour TransDermal: 1 patch TransDermal Every 24 Hours 14. Nystatin Oral Liquid: 255196 unit(s) Oral Every 6 Hours 15. Polyethylene Glycol: 17 gram(s) Oral Daily 16. Sennosides: 2 tablet(s) Oral Daily 17. Silodosin (NON - Formulary): 8 mg NasoGastric Tube Daily 18. Sodium Chloride 0.9% Injectable Flush: 10 mL IntraVenous Flush Every 12 Hours 19. Valproic Acid (Depakene) Oral Liquid: 250 mg PEG Tube Every 12 Hours 20. Vancomycin 1 gram IVPB/ Premixed Soln 200 mL: 200 mL IntraVenous Piggyback Every 12 Hours PRN Medications 1. Acetaminophen: 650 mg Oral Every 6 Hours 2. Albuterol 2.5 mg/ 3 mL Nebulizer Soln: 3 mL Inhalation Every 2 Hours 3. Bisacodyl Rectal: 10 mg Rectal Daily 4. Dextrose 50% in Water Injectable: 25 gram(s) IntraVenous Push Every 15 Minutes 5. Fleet Adult (Sodium Phosphate) Rectal: 1 enema Rectal Daily 6. Glucagon Injectable: 1 mg IntraMuscular Every 15 Minutes 7. Heparin Flush 10 unit/ mL PF Injectable PRN: 5 mL IntraVenous Flush According to Flush Policy 8. hydrALAZINE Injectable: 10 mg IntraVenous Push Every 6 Hours 9. Lidocaine 1% Injectable (PICC KIT): 1 mL IntraDermal Once 10. Ondansetron Injectable: 4 mg IntraVenous Push Every 6 Hours 11. oxyCODONE Immediate Release: 5 mg Oral Every 4 Hours 12. oxyCODONE Immediate Release: 10 mg Oral Every 4 Hours 13. Polyethylene Glycol: 17 gram(s) Oral Daily Currently Suspended Medications 1. amLODIPine: 10 mg Oral Daily 2. hydroCHLOROthiazide: 25 mg Oral Daily 3. Lisinopril: 30 mg Oral Daily Recent Lab Results: Results: I have reviewed these laboratory results: Glucose_POCT Trending View [id number] 18:06:00 02-Mar-2018 11:29:00 02-Mar-2018 06:33:00 Glucose-[id number] H 260 H 220 H Complete Blood Count 17-Oct-2018 07:51:00 ResultValue White Blood Cell Count 22.1 H Nucleated Erythrocyte Count 0.0 Red Blood Cell Count 4.40 L HGB 12.4 L HCT 39.7 L MCV 90 MCHC 31.2 L PLT 316 RDW-CV 14.8 H Comprehensive Metabolic Panel 02-Mar-2018 07:51:00 ResultValue Glucose, Serum 251 H NA 138 K 5.3 CL 97 L Bicarbonate, Serum 32 Anion Gap, Serum 14 BUN 42 H CREAT 0.85 GFR-Non >60 GFR- >60 Calcium, Serum 9.4 ALB 2.5 L ALKP 62 T Pro 5.9 L T Bili 0.5 Alanine Aminotransferase, Serum 45 Aspartate Transaminase, Serum 27 Coagulation Screen 02-Mar-2018 07:51:00 ResultValue Prothrombin Time, Plasma 12.8 H International Normalized Ratio, Plasma 1.2 H Activated Partial Thromboplastin Time 29 Vancomycin Level, Random 02-Mar-2018 07:51:00 ResultValue Vancomycin Level, Random 12.6 Assessment and Plan: Assessment: This is a pleasant 67 year old male with history significant for HTN, type II DM, COPD, and meningioma s/p craniotomy with resection 2013 (done at [facility]) who was admitted for repeat surgical resection of meningioma as angiogram prior to admit had no targets for embolization. 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 Hospital course complicated by dysphagia, dysarthria, and hypoxia concerning for aspiration pneumonia necessitating transfer to ICU. Sputum grew MRSA. He ended up failing modified barium swallow by speech therapy. ENT was consulted and performed flexible laryngoscopy that noted generalized pharyngeal weakness with gross aspiration. GI was consulted and placed PEG tube on 02/21/18 with EGD at that time also noting grade D esophagitis. On 02/24/18 neurosurgery performed lumbar puncture that was unrevealing. Transferred from step down unit to regular nursing floor for further management by medicine service. in a shared visit with Dr. Kellogg Meningioma s/p retrosigmoid craniectomy: - continue PRN oxycodone - follow up cultures from LP done on 02/24/18 - will need outpatient follow up with neurosurgery Aspiration/MRSA pneumonia: - continue IV vancomycin 1 gram every 12 hours (will keep at current dose as it's unclear why trough on 03/01/18 was 21.5 as no dose changes were made recently); planned stop date 03/04/18 - repeat vancomycin trough this evening to ensure dosing is appropriate - check CBC daily Dysphagia s/p PEG tube placement: - NPO - continue Diabetic Source tube feedings - follow up with speech therapy for reevaluation Grade D esophagitis: - continue PPI BID x3 months - will need outpatient follow up in GI clinic in 3 months COPD: - continue albuterol nebulizers, Advair, and budesonide HTN: BP controlled - hold all schedule antihypertensives for now - continue PRN hydralazine Type II DM: - continue Lantus 30 units daily - continue scheduled Lispro 5 units every 6 hours - continue Lispro sliding scale with hypoglycemia protocol DVT prophylaxis: - subcutaneous heparin Miscellaneous: - continue home valproic acid Code status: - DNAR/DNI Discharge disposition: - PT/OT recommending acute rehab - do not anticipate discharge at least until end of week as still completing course of IV vancomycin Signature/Cosignature/Attestation: Attending Only - Shared Visit with Advanced Practice ProviderThis is a shared visit. I have reviewed the Advanced Practice Providers encounter note, approve the Advanced Practice Providers documentation, and provide the following additional information from my personal encounter. Comments/ Additional Findings was seen and examined today on rounds with the assistant womens volleyball coach. He had no particular complaints . On exam S1S2 normal. Chest clear to anterior auscultation. Abdomen soft,nontender to palpation , no guarding . Peg tube noted. Plan- Continue antibiotics for pneumonia until the stop date of 03-04 . The persistent leucocytosis is of concern . Continue ppi . Continue tube feeds. Electronic Signatures: Brooke Mullen ([employer] OPERATOR-GROUP MANAGER) (Signed 02-Mar-2018 19:20) Authored: Service, Subjective Data, Objective Data, Assessment and Plan, Signature/Cosignature/Attestation Delfina Kellogg) (Signed 03-Mar-2018 12:33) Authored: Signature/Cosignature/Attestation Co-Signer: Service, Subjective Data, Objective Data, Assessment and Plan, Signature/Cosignature/Attestation Last Updated: 03-Mar-2018 12:33 by Delfina Kellogg) CBC Collected: 03/02/2018 Status: F Source: [place] [address]:[id number] [place] [address] REPOSITORY TYPE CODE TESTS RESULT OUT OF REFERENCE UNITS RANGE LAB WBCR(LOINC 4.4 - 11.3 x10E9/L ) WBC High 22.1 LAB NRBC(LOINC 0.0-0.0 /100 WBC ) NUCLEATED RBC 0.0 LAB RBCCT(LOIN 4.50 - 5.90 x10E12/L C) Low RBC 4.40 LAB HGB(LOINC) 13.5 - 17.5 g/dL Low HGB 12.4 LAB HCT(LOINC) 41.0 - 52.0 % Low HCT 39.7 LAB MCV(LOINC) 80 - 100 fL MCV 90 LAB MCHC2(LOIN 32.0 - 36.0 g/dL C) Low MCHC 31.2 LAB PLTCT(LOIN 150 - 450 x10E9/L C) PLT 316 LAB RDWCV(LOIN 11.5 - 14.5 % C) High RDW-CV 14.8 Performed By: #### CBC #### [facility] [address] [place] [id number] COAGULATION SCREEN Collected: 03/02/2018 Status: F Source: [address] REPOSITORY TYPE CODE TESTS RESULT OUT OF REFERENCE UNITS RANGE LAB PT(LOINC) 9.8 - 12.7 sec PROTHROMBIN High TIME 12.8 LAB INR(LOINC) 0.9 - 1.1 PT, INR High 1.2 LAB APTT(LOINC 25 - 36 sec ) APTT 29 Result Comment: THE APTT IS NO LONGER USED FOR MONITORING UNFRACTIONATED HEPARIN THERAPY. FOR MONITORING HEPARIN THERAPY, USE THE HEPARIN ASSAY. Performed By: #### COAGS #### [facility] [address] [place] [id number] VANCOMYCIN Collected: 03/02/2018 Status: F Source: [place] [address]:[address] [place] [address] REPOSITORY TYPE CODE TESTS RESULT OUT OF REFERENCE UNITS RANGE LAB VANCU(LOIN ug/mL C) VANCOMYCIN 12.6 Result Comment: .Therapeutic Ranges: Peak: All ages: 30.0-40.0 ug/mL . Trough: Age <18y: 5.0-10.0 ug/mL . Age >/= 18y: 5.0-20.0 ug/mL . Vancomycin trough concentrations drawn immediately prior to the next dose at steady-state are preferred for monitoring patients treated with vancomycin. Ref.: Am J Health-Syst Pharm 66: 83-98, 2008. Performed By: #### VANCU #### [facility] [address] [place] [address] VANCOMYCIN Collected: 03/02/2018 Status: F Source: [facility] [address] [place] [address] REPOSITORY TYPE CODE TESTS RESULT OUT OF REFERENCE UNITS RANGE LAB VANCU(LOIN ug/mL C) VANCOMYCIN 14.4 Result Comment: .Therapeutic Ranges: Peak: All ages: 30.0-40.0 ug/mL . Trough: Age <18y: 5.0-10.0 ug/mL . Age >/= 18y: 5.0-20.0 ug/mL . Vancomycin trough concentrations drawn immediately prior to the next dose at steady-state are preferred for monitoring patients treated with vancomycin. Ref.: Am J Health-Syst Pharm 66: 83-982008. Performed By: #### VANCU #### [facility] [address] [place] [address] COMPREHENSIVE PANEL Collected: 03/02/2018 Status: F Source: [facility] [address] [place] [address] REPOSITORY TYPE CODE TESTS RESULT OUT OF REFERENCE UNITS RANGE LAB GLU(LOINC) 74 - 99 mg/dL GLUCOSE High 251 LAB SOD(LOINC) 136 - 145 mmol/L SODIUM 138 LAB K(LOINC) 3.5 - 5.3 mmol/L POTASSIUM 5.3 LAB CHLOR(LOIN 98 - 107 mmol/L C) Low CHLORIDE 97 LAB BIC(LOINC) 21 - 32 mmol/L BICARBONATE 32 LAB ANGAP(LOIN 10 - 20 mmol/L C) ANION GAP 14 LAB UREA(LOINC 6 - 23 mg/dL ) UREA High NITROGEN 42 LAB CREA(LOINC 0.50 - 1.30 mg/dL ) CREATININE 0.85 LAB GFRFN(LOIN >60 mL/min/1.7 C) 3m2 GFR-NON AM. >60 LAB GFRAA(LOIN >60 mL/min/1.7 C) 3m2 GFR- AM. >60 Result Comment: CALCULATIONS OF ESTIMATED GFR ARE PERFORMED USING THE MDRD STUDY EQUATION FOR THE IDMS-TRACEABLE CREATININE METHODS. CLIN CHEM 2007;53:766-72 LAB CA(LOINC) 8.6 - 10.6 mg/dL CALCIUM 9.4 LAB ALB(LOINC) 3.4 - 5.0 g/dL ALBUMIN Low 2.5 LAB AP(LOINC) 33 - 136 U/L ALKALINE PHOSPHATASE 62 LAB TP(LOINC) 6.4 - 8.2 g/dL TOTAL PROTEIN Low 5.9 LAB AST(LOINC) 9 - 39 U/L AST 27 LAB TBILI(LOINC) 0.0 - 1.2 mg/dL BILIRUBIN,TOTAL 0.5 LAB ALT(LOINC) 10 - 52 U/L ALT 45 Result Comment: Patients treated with Sulfasalazine may generate falsely decreased results for ALT. Performed By: #### CMP #### [facility] [address] [place] [address] GLUCOSE-POCT Collected: 03/02/2018 Status: F Source: [facility] 6:33 AM [facility] REPOSITORY TYPE CODE TESTS RESULT OUT OF RANGE REFERENCE UNITS LAB GLUP(LOINC) 74 - 99 mg/dL High 220 GLUCOSE-POCT Performed By: #### GLUPO #### [facility] [address] [place] [address] GLUCOSE-POCT Collected: 03/01/2018 Status: F Source: [facility] 11:45 PM [facility] REPOSITORY TYPE CODE TESTS RESULT OUT OF RANGE REFERENCE UNITS LAB GLUP(LOINC) 74 - 99 mg/dL High 203 GLUCOSE-POCT Performed By: #### GLUPO #### [facility] [address] [place] [address] CONSULT-WOUND CARE Observed: 03/01/2018 Status: COMPLETED Source: [facility] 5:54 PM [facility] REPOSITORY Service: Service: Wound Care Consult: Reason: wound care Allergies: Codeine Sulfate: Unknown penicillin: Unknown insulin: Unknown Intolerances: Aspir 81: GI Upset Assessment: Wound location: right buttock size:12.5x1cm undermining: none tracking: none Wound type: device related stage 1 pressure injury Wound bed: non blanchable redness Draining: none Periwound skin: intact Therapeutic surface: [facility] Recommendation: Turn and reposition at least every 2 hours. Cleanse with warm wipes. Pat dry. Apply mepilex border daily. Plan: While inpatient, call with questions or if condition changes. Opal Greenberg RN CWON pager# [phone] Electronic Signatures: Opal Greenberg (RN) (Signed 01-Mar-2018 17:58) Authored: Service, Allergies, Assessment/Recommendations, Signature/Cosignature/Attestation Last Updated: 01-Mar-2018 17:58 by Opal Greenberg (RN) GLUCOSE-POCT Collected: 03/01/2018 Status: F Source: [facility] 5:42 PM [facility] REPOSITORY TYPE CODE TESTS RESULT OUT OF RANGE REFERENCE UNITS LAB GLUP(LOINC) 74 - 99 mg/dL High 239 GLUCOSE-POCT Performed By: #### GLUPO #### [facility] [address] [place] [address] GLUCOSE-POCT Collected: 03/01/2018 Status: F Source: [facility] 12:31 PM [facility] REPOSITORY TYPE CODE TESTS RESULT OUT OF RANGE REFERENCE UNITS LAB GLUP(LOINC) 74 - 99 mg/dL High 295 GLUCOSE-POCT Performed By: #### GLUPO #### [facility] [address] [place] [address] CLINICAL EVENT Observed: 03/01/2018 Status: UNK Source: [facility] NOTE-SPEECH THERAPY - 11:30 AM [facility]OSPITALS REPOSITORY ASPIRATION PRECAUTIONS Event: Topic: Speech Therapy - Aspiration Precautions Details: Pt well known to MANAGER PROCESS IMPROVEMENT. MBSS completed 02/16 with recommendations for STRICT NPO 2/2 SILENT ASPIRATION with all tested consistencies. PEG was placed for nutritional needs. New orders received for repeat swallow evaluation. MANAGER PROCESS IMPROVEMENT discussed case at length with HANDLE SANDER OPERATOR (Brittany). Pt continues to demonstrated difficulty managing secretions with an elevated WBC. Pt is NOT appropriate for PO trials and/or repeat MBSS at this time. Recommend continue STRICT NPO with frequent aggressive oral care. Per pt. report, was being given swabs with coke in the ICU. Recommend oral swabs only be used x1 and with water ONLY. Will continue to follow peripherally and repeat MBSS when medical/respiratory status improves. Provider / Team Contact Information: Provider/Team Contact Info-Pager Number: Daxa Florence [phone] Electronic Signatures: Danielle Florence (RYLAN) (Signed 01-Mar-2018 11:35) Authored: Event, Provider / Team Contact Information Last Updated: 01-Mar-2018 11:35 by Danielle Florence (RYLAN) VANCOMYCIN,TROUGH Collected: Status: F Source: [facility] 03/01/2018 9:15 AM [facility] REPOSITORY Order Comment: CRIT VANCT CALLED RB TO LAWSON GUTIÉRREZ., 03/01/2018 10:13 TYPE CODE TESTS RESULT OUT OF RANGE REFERENCE UNITS LAB VANCT(LOINC 5.0 - 20.0 ug/mL ) High alert 21.5 VANCOMYCIN,T ROUGH Result Comment: Vancomycin levels should be interpreted in conjunction with the dose, disease being treated, vancomycin JENIFFER, time of draw (trough concentrations should be obtained just before the next dose at steady-state), and other clinical information. Trough concentrations of 15-20 ug/mL are desired for severe infections. Ref.: Am J Health-Syst Pharm 66: 83-98, 2008. CRIT VANCT CALLED RB TO LAWSON GUTIÉRREZ., 03/01/2018 10:13 Performed By: #### VANCT #### [facility] [address] [place] [address] EMR ADDON Collected: 03/01/2018 Status: F Source: [facility] 8:56 [facility] REPOSITORY TYPE CODE TESTS RESULT OUT OF REFERENCE UNITS RANGE LAB EMRAC(LOIN C) ADDON CONFIRMATION REQUEST REC'D Performed By: #### EMRAD #### NO LOCATION NEEDED EMR ADDON Collected: 03/01/2018 Status: F Source: [facility] 8:47 [facility] REPOSITORY TYPE CODE TESTS RESULT OUT OF REFERENCE UNITS RANGE LAB EMRAC(LOIN C) ADDON CONFIRMATION REQUEST REC'D Performed By: #### EMRAD #### NO LOCATION NEEDED DAILY PROGRESS Observed: 03/01/2018 Status: COMPLETED Source: [facility] NOTE-PULMONOLOGY 8:37 AM [facility]OS[facility]ITALS REPOSITORY Service: Pulmonology Subjective Data: DIPESH BERMUDEZ is a 67 year old Male who is Hospital Day # 20 and POD #18 for left retrosigmoid craniotomy for tumor resection. Additional Information: CC: hypoxia, right sided weakness, dysphagia ROS: pt on 6L of o2, thick sputum, nonproductive cough, right sided weakness (upper and lower extremities), + facial dropping, dysarthria. Rest of vitals of stable. Transfer summary: This is a 67y/o WM with PMH significant for HTN, DM, meningioma s/p craniotomy with resection 2013 (done at [facility]) wh presented 02/10/18 after having been seen by Dr. Parada in clinic for worsening double vision along with unsteady gait. Recent imaging noted interval development of his known residual mass, which was proven to be a meningioma. He was admitted for repeat surgical resection of meningioma. He underwent a Cerebral angiogram for possible embolization, however there was no suitable embolization targets on angiogram. He underwent a retrosigmoid craniectomy for resection of the infratentorial tumor meningioma, micodissection, and lumbar drain catheter placement. After surgery on 02/10 he was noted to be dysarthric. Speech evaluated pt and recommended npo status. On 02/12 and MRI of the brain showed L lateral aspect alejandra developed acute ischemia. Pt has R sided weakness along with dysarthria and dysphagia. On 02/13, a code white was called after the pt desaturated and was treated with duoneb, ezpap and steroids. On 02/15 it was found the feeding tube was in the esophagus and it was replaced, but there was a concern for possible aspiration. He was started on IV Vanco, azithro, flagyl and cefepime. Pt failed MBS. On 02/17 there was a discussion about code status and pt was made DNAR/DNI. GI was consulted for a peg tube and it was placed 02/21. The pt desatted again to 76% on 40% oxygen and was placed on 100% FIO2 and TF to MICU. He was placed on Airvo high flow oxygen. 02/22 Blood cx was negative. 02/24 Sputum Cx grew MRSA. He underwent an LP which preliminarily cx are negative. Antibiotics were changed to Meropenem on 02/24 and IV Vanco (received 02/17-02/22, then restarted 02/25). Pt is constipated and had not had BM in a number of days. He was started on stool softener, laxatives and today given fleets enema. He has had 1 small formed stool. In the SDU patient o2 needs were weaned down to 4L NC. Continue aggresive pulmonary hygiene. s/p enema on 02/28 s/p 1 BM. Holding from repeating MBS at this point due to pt currently under therapy for PNA and likely continues to micro aspirate. Add Advair to pulmonary hygiene 03/01 and holding antihypertensive SBP range 120-130s. Objective Data: Objective Information: T PRBPSpO2 [id number]% Date/Time03/01 8: 8: 8: 8: 8:00 Range(36.1C - 37C ) (89 - 105 ) (12 - 28 ) (111 - 153 )/ (61 - 87 ) (91% - 98% ) As of 01-Mar-2018 08:00:00, patient is on 6 L/min of oxygen via nasal cannula. Highest temp of 37 C was recorded at 02/28 16:00 Weights 03/01 1:00: Weight in kg (Weight (kg)) 90.1 03/01 1:00: Weight in lbs ((lbs)) 198.6 ---- Intake and Output ----- Mn/Dy/Year TimeIntakeOutun[facility] Mar 01, 2018 6:00 [id number] Feb 28, 2018 10:00 [id number] Feb 28, 2018 2:00 [id number] The Intake and Output Totals for the last 24 hours are: IntakeOutputNet [id number] Physical Exam: Constitutional: awake, alert and oriented to self, place and time, follows commands, facial dropping of right side, ride sided neglet, strenght L >R, dysarthria Eyes: pupils +2 ENMT: mucous membrane dry, left head incision intact, no s/sx of infection Head/Neck: nc/at Respiratory/Thorax: clear lung sounds diminished BB + rhonchi upper lobes, no wheezing or rales Cardiovascular: RRR, s1/s2 no s3/s4 no gmr +2 radial and dp, Gastrointestinal: peg tube, abd soft nontender Musculoskeletal: L strength > right, neglect of right arm and leg Neurological: awake, alert to self and oriented x3, follows commands, right sided weakness Psychological: Appropriate mood and behavior Skin: warm, + trace edema Medication: Medications: Continuous Medications 1. Sodium Chloride 0.9% Infusion: 1000 mL IntraVenous <Continuous> Scheduled Medications 1. Albuterol 2.5 mg/ 3 mL Nebulizer Soln: 3 mL Inhalation Every 6 Hours 2. Atorvastatin: 40 mg Oral Daily 3. Budesonide 0.25 mg/ 2 mL Nebulizer Soln: 2 mL Inhalation Every 12 Hours 4. Docusate Oral Liquid: 100 mg Oral 2 Times a Day 5. Esomeprazole Oral Packet: 40 mg NasoGastric Tube 2 Times a Day 6. Formoterol 20 microgram/ 2 mL Neb Soln: 2 mL Inhalation Every 12 Hours 7. guaiFENesin Oral Liquid: 400 mg Oral Every 6 Hours 8. Heparin SubCutaneous: 5000 unit(s) SubCutaneous Every 8 Hours 9. Insulin Glargine (Lantus) Injectable: 20 unit(s) SubCutaneous Every 24 Hours 10. Insulin Lispro Moderate Corrective Scale: unit(s) SubCutaneous Every 4 Hours 11. Nicotine 14 mg/ 24 hour TransDermal: 1 patch TransDermal Every 24 Hours 12. Nystatin Oral Liquid: 801809 unit(s) Oral Every 6 Hours 13. Polyethylene Glycol: 17 gram(s) Oral Daily 14. Sennosides: 2 tablet(s) Oral Daily 15. Silodosin (NON - Formulary): 8 mg NasoGastric Tube Daily 16. Sodium Chloride 0.9% Injectable Flush: 10 mL IntraVenous Flush Every 12 Hours 17. Valproic Acid (Depakene) Oral Liquid: 250 mg PEG Tube Every 12 Hours 18. Vancomycin 1 gram IVPB/ Premixed Soln 200 mL: 200 mL IntraVenous Piggyback Every 12 Hours PRN Medications 1. Acetaminophen: 650 mg Oral Every 6 Hours 2. Albuterol 2.5 mg/ 3 mL Nebulizer Soln: 3 mL Inhalation Every 2 Hours 3. Bisacodyl Rectal: 10 mg Rectal Daily 4. Dextrose 50% in Water Injectable: 25 gram(s) IntraVenous Push Every 15 Minutes 5. Fleet Adult (Sodium Phosphate) Rectal: 1 enema Rectal Daily 6. Glucagon Injectable: 1 mg IntraMuscular Every 15 Minutes 7. Heparin Flush 10 unit/ mL PF Injectable PRN: 5 mL IntraVenous Flush According to Flush Policy 8. hydrALAZINE Injectable: 10 mg IntraVenous Push Every 6 Hours 9. Lidocaine 1% Injectable (PICC KIT): 1 mL IntraDermal Once 10. Ondansetron Injectable: 4 mg IntraVenous Push Every 6 Hours 11. oxyCODONE Immediate Release: 5 mg Oral Every 4 Hours 12. oxyCODONE Immediate Release: 10 mg Oral Every 4 Hours 13. Polyethylene Glycol: 17 gram(s) Oral Daily Currently Suspended Medications 1. amLODIPine: 10 mg Oral Daily 2. hydroCHLOROthiazide: 25 mg Oral Daily 3. Lisinopril: 30 mg Oral Daily Recent Lab Results: Results: I have reviewed these laboratory results: Glucose_POCT Trending View [id number] 05:41:00 01-Mar-2018 02:13:00 [id number] H 269 H Complete Blood Count 01-Mar-2018 04:20:00 ResultValue White Blood Cell Count 25.4 H Nucleated Erythrocyte Count 0.0 Red Blood Cell Count 4.26 L HGB 11.9 L HCT 38.5 L MCV 90 MCHC 30.9 L PLT 346 RDW-CV 15.0 H Renal Function Panel 01-Mar-2018 04:20:00 ResultValue Glucose, Serum 262 H NA 139 K 4.8 CL 97 L Bicarbonate, Serum 34 H Anion Gap, Serum 13 BUN 47 H CREAT 0.92 GFR-Non >60 GFR- >60 Calcium, Serum 9.2 Phosphorus, Serum 1.8 L ALB 2.5 L Coagulation Screen 01-Mar-2018 04:20:00 ResultValue Prothrombin Time, Plasma 12.5 International Normalized Ratio, Plasma 1.1 Activated Partial Thromboplastin Time 30 Magnesium, Serum 01-Mar-2018 04:20:00 ResultValue Magnesium, Serum 2.23 Assessment and Plan: Additional Dx: Acute respiratory failure with hypoxia and hypercapnia: Entered Date: 22-Feb-2018 19:11 COPD with chronic bronchitis and emphysema: Entered Date: 22-Feb-2018 19:10 Oropharyngeal dysphagia: Entered Date: 20-Feb-2018 15:42 Pneumonia: Entered Date: 17-Feb-2018 12:11 Assessment: 67 year old male patient who is s/p meningioma resection on 02/11 c/b L brainstem infarction, dysphagia and dysarthria, hypoxemic respiratory failure, undergoing treatment for aspiration pneumonia, (sputum cx growth MRSA). Transfer to SDU on 02/28 for aggressive pulmonary hygiene. Neuro: s/p meningioma resection on 02/11 c/b L brainstem infarction, dysphagia and dysarthria (pt able to answer simple questions with one word answers), still with Right sided weakness (upper and lower extremities), facial dropping - NSG following - s/p LP on 02/24f/u with cx - cont Valproid Acid - holding home Trazodone, risperidone - PT/OT/MANAGER PROCESS IMPROVEMENT following Pulm: Hx of COPD. Acute hypoxia respiratory failure 2/2 aspiration PNA. O2 weaned from 6 L to 4L NC, saturations staying stable. -sputum cx grow MRSA - wean o2 down for sat>92% - IPV q6hrs ID: MRSA PNA, remains to have leukocytosis likely oral secretions aspiration, and pt s/p MBS test likely aspirated all test content - Vanco (02/17-02/22) cont with goal 7 day course (start on 02/25- stop 03/04) - Meropenem (02/24-) - f/u with LP cx from 02/24 - oral nystatin for thrush - 02/24 sputum cx + MRSA - 02/22 MRSA screen negative - bld cx negative - 03/01 d/c flynn catheter Cardiac: hx of HTN, remains HD stable with SBP range 120-130s. - will hold from restarting home antihypertensive at this time consider tomorrow if HD stable. -holding home amlodipine, HCTZ and Lisinopril -consider starting meds slowly per BP tolerance -cont Statin FEN/GI: Severe dysphagia 2/2 L brainstem infarction. Esophagitis s/p EGD on 02/21. c/b constipation Last BM >3 days - s/p enemas, BM today - cont bowel regimen -s/p peg tube 02/21 - s/p EGD 02/21 showing LA grade D esophagitis - cont PPI twice a day x 3 months - MANAGER PROCESS IMPROVEMENT following - holding MBS at this time due to pt with high risk for aspiration, under treatment for PNA and remains to have leukocytosis likely due to microaspiration - pt s/p failed MBS, s/p scope by ENT with evidence with aspirtion - cont tube feeds per pt tolerance Renal: no issues Endo: IDDM - add Lantus 30 units (40 units home dose) - add 5 units lispro q6hrs (hold if tube feeds on hold) - continue moderate SSI q6hrs - holding home 70/30 PPX: cont heparin and scds DNAR/DNI lines: midline - d/c flynn 03/01 DIspo: will transfer to [facility], no need for tele PT recs Acute Rehab at discharge A and P discussed with Dr Ramirez Signature/Cosignature/Attestation: Attending Only - Shared Visit with Advanced Practice ProviderThis is a shared visit. I have reviewed the Advanced Practice Providers encounter note, approve the Advanced Practice Providers documentation, and provide the following additional information from my personal encounter. Comments/ Additional Findings this chronically ill patient continues to be at-risk for deterioration / failure due to the above mentioned dysfunctional organ systems thus needing in patient care. I have personally identified and managed all active medical issues. Assessment, impressions and plans are reflected in the note above as well as the orders. Management time is spent at bedside includes review of diagnostic tests, labs, and radiographs, serial assessments and management of active medical issues and coordination of care Time spent in management is >35 minutes HISTORY 7 yo M with history of meningioma s/p craniotomy/resection (2013), HTN, DM, COPD, tobacco abuse, admitted under Neurosurgery following repeat craniotomy & tumor resection, noted to have multiple episodes of hypoxia for which Pulmonary has been following. CT chest negative for PE, shows prior LLL resection and patchy opacities in the bilateral lung bases with TIB appearance & mild diffuse bronchial wall thickening. LE Dopplers also negative for DVT in both legs. TTE shows preserved EF 55-60% and diastolic disease. Strict NPO per MANAGER PROCESS IMPROVEMENT due to dysphagia. Transferred to NSU from the floor due to tenuous respiratory status, but has since improved, now down to 5L NC. EXAM - awake, alert, oriented and is very cooperative. . Continues to ask for water . Oropharynx is without any lesions. No JVD . Good air entry bilaterally. Few scattered rhonchi. Both bases have minimal crackles no wheezing is noted. Regular rate and rhythm. Bowel sounds present without any abdominal tenderness, LABS - reviewed CXR - reviewed and confirmed with radiology IMPRESSION #Acute respiratory failure/Hypoxia, CTPE negative, etiology likely multifactorial secondary to all of the below #History of COPD - likely chronic bronchitis given bronchial thickening on CT scan; due to lack of PFT data severity of COPD can not be characterized at this point #Dysphagia requiring strict NPO, with chronic aspiration, now with suspected aspiration pneumonia #Bilateral lung atelectasis #Heavy secretions with weak cough #CYNTHIA not treated currently (patient non-adherent to home CPAP) PLANS Nothing by mouth Physical therapy Bronchodilators Up in chair No need for antibiotics Bronchial clearance as per respiratory Observe in SBU for 24 hours then transferred to the floor Electronic Signatures: Shagufta Ramirez) (Signed 02-Mar-2018 14:32) Authored: Signature/Cosignature/Attestation Brittany Cool ([facility]) (Signed 01-Mar-2018 15:15) Authored: Service, Subjective Data, Objective Data, Assessment and Plan Last Updated: 02-Mar-2018 14:32 by Shagufta Ramirez) GLUCOSE-POCT Collected: 03/01/2018 Status: F Source: [facility] 5:41 AM [facility] REPOSITORY TYPE CODE TESTS RESULT OUT OF RANGE REFERENCE UNITS LAB GLUP(LOINC) 74 - 99 mg/dL High 250 GLUCOSE-POCT Performed By: #### GLUPO #### [facility] [address] [facility] [place] [address] CBC Collected: 03/01/2018 Status: F Source: [facility] 4:20 AM [facility] REPOSITORY TYPE CODE TESTS RESULT OUT OF REFERENCE UNITS RANGE LAB WBCR(LOINC 4.4 - 11.3 x10E9/L ) WBC High 25.4 LAB NRBC(LOINC 0.0-0.0 /100 WBC ) NUCLEATED RBC 0.0 LAB RBCCT(LOIN 4.50 - 5.90 x10E12/L C) Low RBC 4.26 LAB HGB(LOINC) 13.5 - 17.5 g/dL Low HGB 11.9 LAB HCT(LOINC) 41.0 - 52.0 % Low HCT 38.5 LAB MCV(LOINC) 80 - 100 fL MCV 90 LAB MCHC2(LOIN 32.0 - 36.0 g/dL C) Low MCHC 30.9 LAB PLTCT(LOIN 150 - 450 x10E9/L C) PLT 346 LAB RDWCV(LOIN 11.5 - 14.5 % C) High RDW-CV 15.0 Performed By: #### CBC #### [facility] [address] [place] [id number] COAGULATION SCREEN Collected: 03/01/2018 Status: F Source: ID[facility] 4:20 [facility] REPOSITORY TYPE CODE TESTS RESULT OUT OF REFERENCE UNITS RANGE LAB PT(LOINC) 9.8 - 12.7 sec PROTHROMBIN TIME 12.5 LAB INR(LOINC) 0.9 - 1.1 PT, INR 1.1 LAB APTT(LOINC 25 - 36 sec ) APTT 30 Result Comment: THE APTT IS NO LONGER USED FOR MONITORING UNFRACTIONATED HEPARIN THERAPY. FOR MONITORING HEPARIN THERAPY, USE THE HEPARIN ASSAY. Performed By: #### COAGS #### [facility] [address] [place] [id number] MAGNESIUM Collected: 03/01/2018 Status: F Source: ID[facility]EL 4:20 [facility] REPOSITORY TYPE CODE TESTS RESULT OUT OF REFERENCE UNITS RANGE LAB MG(LOINC) 1.60 - 2.40 mg/dL MAGNESIUM 2.23 Performed By: #### MG #### [facility] [address] [employer] [place] [id number] RENAL FUNCTION PANEL Collected: 03/01/2018 Status: F Source: [facility] 4:20 [facility] REPOSITORY TYPE CODE TESTS RESULT OUT OF REFERENCE UNITS RANGE LAB GLU(LOINC) 74 - 99 mg/dL GLUCOSE High 262 LAB SOD(LOINC) 136 - 145 mmol/L SODIUM 139 LAB K(LOINC) 3.5 - 5.3 mmol/L POTASSIUM 4.8 LAB CHLOR(LOIN 98 - 107 mmol/L C) Low CHLORIDE 97 LAB BIC(LOINC) 21 - 32 mmol/L BICARBONATE High 34 LAB ANGAP(LOIN 10 - 20 mmol/L C) ANION GAP 13 LAB UREA(LOINC 6 - 23 mg/dL ) UREA High NITROGEN 47 LAB CREA(LOINC 0.50 - 1.30 mg/dL ) CREATININE 0.92 LAB GFRFN(LOIN >60 mL/min/1.7 C) 3m2 GFR-NON AM. >60 LAB GFRAA(LOIN >60 mL/min/1.7 C) 3m2 GFR- AM. >60 Result Comment: CALCULATIONS OF ESTIMATED GFR ARE PERFORMED USING THE MDRD STUDY EQUATION FOR THE IDMS-TRACEABLE CREATININE METHODS. CLIN CHEM 2007;53:766-72 LAB CA(LOINC) 8.6 - 10.6 mg/dL CALCIUM 9.2 LAB PHOS(LOINC) 2.5 - 4.9 mg/dL PHOSPHORUS Low 1.8 Result Comment: The performance characteristics of phosphorus testing in heparinized plasma have been validated by the individual laboratory site where testing is performed. Testing on heparinized plasma is not approved by the FDA; however, such approval is not necessary. LAB ALB(LOINC) 3.4 - 5.0 g/dL Low ALBUMIN 2.5 Performed By: #### RENAL #### [facility] [address] [place] [address] RED CELL MORPHOLOGY Collected: 03/01/2018 Status: F Source: [facility] 4:20 [facility] REPOSITORY TYPE CODE TESTS RESULT OUT OF REFERENCE UNITS RANGE LAB RBCMO(LOIN C) RBC MORPHOLOGY SEE COMMENT Result Comment: NO SIGNIFICANT RBC ABNORMALITIES SEEN ON SMEAR REVIEW. Performed By: #### MORP2 #### [facility] [address] [place] [address] MANUAL DIFFERENTIAL Collected: 03/01/2018 Status: F Source: [facility]EL 4:20 [facility] REPOSITORY TYPE CODE TESTS RESULT OUT OF REFERENCE UNITS RANGE LAB SEG(LOINC) 40.0 - 80.0 % % SEG NEUTROPHIL 68.0 Result Comment: Percent differential counts (%) should be interpreted in the context of the absolute cell counts (cells/L). LAB BAND(LOINC) 0.0 - 5.0 % % BAND NEUTROPHIL 1.0 LAB LYMP2(LOINC) 13.0 - % 44.0 % LYMPHOCYTE 20.0 LAB MONO2(LOINC) 2.0 - 10.0 % % MONOCYTE 7.0 LAB EOS2(LOINC) 0.0 - 6.0 % % EOSINOPHIL 2.0 LAB BASO2(LOINC) 0.0 - 2.0 % % BASOPHIL 2.0 LAB ANC(LOINC) 1.20 - x10E9/L 7.70 ANC High 17.52 LAB #SEG(LOINC) 1.20 - x10E9/L 7.00 SEG High NEUTROPHIL 17.27 LAB #BAND(LOINC) 0.00 - x10E9/L 0.70 BAND NEUTROPHIL 0.25 LAB #LYM2(LOINC) 1.20 - x10E9/L 4.80 LYMPHOCYTE High 5.08 LAB #MON2(LOINC) 0.10 - x10E9/L 1.00 MONOCYTE High 1.78 LAB #EOS2(LOINC) 0.00 - x10E9/L 0.70 EOSINOPHIL 0.51 LAB #BAS2(LOINC) 0.00 - x10E9/L 0.10 BASOPHIL High 0.51 Performed By: #### MDIFF #### [facility] [address] [place] [address] PROCALCITONIN Collected: 03/01/2018 Status: F Source: [facility] 4:20 [facility]IT[facility] TYPE CODE TESTS RESULT OUT OF RANGE REFERENCE UNITS LAB PCALC(SHAKEEL <=0.07 ng/mL NC) PROCALCITONIN Abnormal 0.17 Result Comment: Note new reference range and methodology as of 06/29/2017. . Procalcitonin (PCT) results measured serially can aid in decision-making for antibiotic discontinuation in patients with suspected or confirmed sepsis in conjunction with additional clinical information. Antibiotic discontinuation may be considered with a change in PCT of >80% from the peak result or when PCT falls below 0.50 ng/mL. . Procalcitonin results should not be used in isolation but should be interpreted in conjunction with additional clinical and laboratory findings. Procalcitonin results should not be used to guide the initiation of antibiotic therapy. . Falsely low PCT values in the presence of bacterial infection may occur in early infection, with atypical pathogens, localized infections, and subacute infectious endocarditis. . Falsely elevated results outside of severe bacterial infection/sepsis may be seen in patients with renal failure or insufficiency, severe trauma or chao, recent major abdominal/cardiac surgery, acute multi-organ failure, rarely in patients with medullary thyroid carcinoma and rare neuroendocrine tumors, and non-specific interfering antibodies (heterophile antibodies, rheumatoid factor, human anti-mouse antibodies (HAMA), etc). . Performance of the PCT test in pediatric patients (<18yo), women, immunocompromised patients, and patients on immunomodulatory medications has not been evaluated. Performed By: #### PCALC #### [facility] [address] [place], [place] [id number] GLUCOSE-POCT Collected: 03/01/2018 Status: F Source: [facility] 2:13 AM HOSPITALS REPOSITORY TYPE CODE TESTS RESULT OUT OF RANGE REFERENCE UNITS LAB GLUP(LOINC) 74 - 99 mg/dL High 269 GLUCOSE-POCT Performed By: #### GLUPO #### [facility] [address] [place] [address] GLUCOSE-POCT Collected: 02/28/2018 Status: F Source: [facility] 10:04 PM HOSPITALS REPOSITORY TYPE CODE TESTS RESULT OUT OF RANGE REFERENCE UNITS LAB GLUP(LOINC) 74 - 99 mg/dL High 267 GLUCOSE-POCT Performed By: #### GLUPO #### [facility] [address] [place] [address] DAILY PROGRESS Observed: 02/28/2018 Status: COMPLETED Source: [facility] NOTE-PULMONOLOGY 6:10 PM HOSPITALS REPOSITORY Service: Pulmonology Subjective Data: DIPESH BERMUDEZ is a 67 year old Male who is Hospital Day # 19 and POD #17 for left retrosigmoid craniotomy for tumor resection. Additional Information: Transfer to SDU this morning. Remains hemodynamically stable with some periods of desaturations down to mid 80s with minimal exertions turning side to side with nursing help, improves with rest pt asymptomatic, still needing 6L of o2. Objective Data: Objective Information: Moshe PRBPSpO2 [id number]% Date/Time02/28 16: 18: 18: 18: 18:05 Range(36.1C - 37.4C ) (78 - 105 ) (12 - 28 ) (111 - 153 )/ (61 - 89 ) (90% - 99% ) As of 28-Feb-2018 18:05:00, patient is on 6 L/min of oxygen via nasal cannula. Highest temp of 37.4 C was recorded at 02/27 20:00 ---- Intake and Output ----- Mn/Dy/Year TimeIntakeOutputNet Feb 28, 2018 2:00 [id number] Feb 28, 2018 6:00 [id number] Feb 27, 2018 10:00 [id number] The Intake and Output Totals for the last 24 hours are: [facility] [id number] Physical Exam: Constitutional: awake, alert and oriented to self, follows commands, facial drop of right side, ride sided neglet, strenght L >R Eyes: pupils +2 ENMT: mucous membrane dry Head/Neck: nc/at Respiratory/Thorax: clear lung sounds diminished BB no wheezing rales or rhonchi Cardiovascular: RRR, s1/s2 no s3/s4 no gmr +2 radial and dp, Gastrointestinal: peg tube, abd soft nontender Musculoskeletal: L strength > right, neglect of right arm and leg Neurological: awake, alert to self only, follows commands, agitated at times Psychological: Appropriate mood and behavior Skin: warm dry Medication: Medications: Continuous Medications 1. Sodium Chloride 0.9% Infusion: 1000 mL IntraVenous <Continuous> Scheduled Medications 1. Albuterol 2.5 mg/ 3 mL Nebulizer Soln: 3 mL Inhalation Every 6 Hours 2. Atorvastatin: 40 mg Oral Daily 3. Budesonide 0.25 mg/ 2 mL Nebulizer Soln: 2 mL Inhalation Every 12 Hours 4. Docusate Oral Liquid: 100 mg Oral 2 Times a Day 5. Esomeprazole Oral Packet: 40 mg NasoGastric Tube 2 Times a Day 6. Formoterol 20 microgram/ 2 mL Neb Soln: 2 mL Inhalation Every 12 Hours 7. guaiFENesin Oral Liquid: 400 mg Oral Every 6 Hours 8. Heparin SubCutaneous: 5000 unit(s) SubCutaneous Every 8 Hours 9. Insulin Lispro Moderate Corrective Scale: unit(s) SubCutaneous Every 4 Hours 10. Nicotine 14 mg/ 24 hour TransDermal: 1 patch TransDermal Every 24 Hours 11. Nystatin Oral Liquid: 141227 unit(s) Oral Every 6 Hours 12. Polyethylene Glycol: 17 gram(s) Oral Daily 13. Sennosides: 2 tablet(s) Oral Daily 14. Silodosin (NON - Formulary): 8 mg NasoGastric Tube Daily 15. Sodium Chloride 0.9% Injectable Flush: 10 mL IntraVenous Flush Every 12 Hours 16. Valproic Acid (Depakene) Oral Liquid: 250 mg PEG Tube Every 12 Hours 17. Vancomycin 1 gram IVPB/ Premixed Soln 200 mL: 200 mL IntraVenous Piggyback Every 12 Hours PRN Medications 1. Acetaminophen: 650 mg Oral Every 6 Hours 2. Albuterol 2.5 mg/ 3 mL Nebulizer Soln: 3 mL Inhalation Every 2 Hours 3. Bisacodyl Rectal: 10 mg Rectal Daily 4. Dextrose 50% in Water Injectable: 25 gram(s) IntraVenous Push Every 15 Minutes 5. Fleet Adult (Sodium Phosphate) Rectal: 1 enema Rectal Daily 6. Glucagon Injectable: 1 mg IntraMuscular Every 15 Minutes 7. Heparin Flush 10 unit/ mL PF Injectable PRN: 5 mL IntraVenous Flush According to Flush Policy 8. hydrALAZINE Injectable: 10 mg IntraVenous Push Every 6 Hours 9. Lidocaine 1% Injectable (PICC KIT): 1 mL IntraDermal Once 10. Ondansetron Injectable: 4 mg IntraVenous Push Every 6 Hours 11. oxyCODONE Immediate Release: 5 mg Oral Every 4 Hours 12. oxyCODONE Immediate Release: 10 mg Oral Every 4 Hours 13. Polyethylene Glycol: 17 gram(s) Oral Daily Currently Suspended Medications 1. amLODIPine: 10 mg Oral Daily 2. hydroCHLOROthiazide: 25 mg Oral Daily 3. Lisinopril: 30 mg Oral Daily Recent Lab Results: Results: I have reviewed these laboratory results: Glucose_POCT Trending View [id number] 16:37:00 28-Feb-2018 12:02:00 28-Feb-2018 04:47:00 28-Feb-2018 00:33:00 Glucose-[id number] H 239 H 220 H 181 H Complete Blood Count 28-Feb-2018 03:53:00 ResultValue White Blood Cell Count 23.8 H Nucleated Erythrocyte Count 0.0 Red Blood Cell Count 4.81 HGB 13.2 L HCT 41.7 MCV 87 MCHC 31.7 L PLT 390 RDW-CV 14.5 Renal Function Panel 28-Feb-2018 03:53:00 ResultValue Glucose, Serum 239 H NA 140 K 4.6 CL 99 Bicarbonate, Serum 35 H Anion Gap, Serum 11 BUN 48 H CREAT 0.96 GFR-Non >60 GFR- >60 Calcium, Serum 9.7 Phosphorus, Serum 2.5 ALB 2.6 L Assessment and Plan: Assessment: 67 year old male patient who is s/p meningioma resection on 02/11 c/b L brainstem infarction, dysphagia and dysarthria, hypoxemic respiratory failure, undergoing treatment for aspiration pneumonia, (sputum cx growth MRSA). Transfer to SDU on 02/28 for aggressive pulmonary hygiene. Neuro: s/p meningioma resection on 02/11 c/b L brainstem infarction, dysphagia and dysarthria. -NSG following - s/p LP on 02/24f/u with cx - cont Valproid Acid - holding home Trazodone, risperidone - PT/OT/MANAGER PROCESS IMPROVEMENT following Pulm: Hx of COPD. Acute hypoxia respiratory failure 2/2 aspiraton PNA. Still needing 6L of o2 -sputum cx grow MRSA - wean o2 down for sat>92% - IPV q6hrs ID: MRSA PNA - Vanco (02/17-02/22) cont with goal 7 day course (start on 02/25) - Meropenem (02/24-) - f/u with LP cx from 02/24 - oral nystatin for thrush - 02/24 sputum cx + MRSA - 02/22 MRSA screen negative - bld cx negative Cardiac: hx of HTN, remains HD stable -holding home amlodipine, HCTZ and Lisinopril -consider starting meds slowly per BP tolerance -cont Statin FEN/GI: Severe dysphagia 2/2 L brainstem infarction. Eosphaghitis s/p EGD on 02/21 c/b constipation - f/u with nursing if constipation improved by this afternoon - cont bowel regimen -s/p peg tube 02/21 - s/p EGD 02/21 showing LA grade D esophagitis - cont PPI twice a day x 3 months - MANAGER PROCESS IMPROVEMENT following - holding MBS at this time due to pt with oral secretions and acute saturations at time \ - cont tube feeds per pt tolerance Renal: no issues Endo: IDDM - SSI q6hrs - will start on lantus - holding home 70/30 PPX: cont heparin and scds DNAR/DNI DIspo: keep in SDU until respiratory status stable PT recs Acute Rehab at discharge Electronic Signatures: Brittany Cool ([employer] OPERATOR-GROUP MANAGER) (Signed 28-Feb-2018 18:51) Authored: Service, Subjective Data, Objective Data, Assessment and Plan, Signature/Cosignature/Attestation Last Updated: 28-Feb-2018 18:51 by Brittany Cool ([employer] OPERATOR-GROUP MANAGER) GLUCOSE-POCT Collected: 02/28/2018 Status: F Source: [facility] 4:37 PM [facility]OSPITALS REPOSITORY TYPE CODE TESTS RESULT OUT OF RANGE REFERENCE UNITS LAB GLUP(LOINC) 74 - 99 mg/dL High 197 GLUCOSE-POCT Performed By: #### GLUPO #### [facility] [address] [place] [address] GLUCOSE-POCT Collected: 02/28/2018 Status: F Source: [facility] 12:02 PM [facility]PITALS REPOSITORY TYPE CODE TESTS RESULT OUT OF RANGE REFERENCE UNITS LAB GLUP(LOINC) 74 - 99 mg/dL High 239 GLUCOSE-POCT Performed By: #### GLUPO #### [facility] [address] [place] [address] DAILY PROGRESS NOTE - Observed: 02/28/2018 Status: COMPLETED Source: [facility] CRITICAL CARE-MICU 8:20 AM HOSPITALS REPOSITORY Service: Critical Care Service: ServiceMICU Subjective Data: ID Statement: DIPESH BERUMDEZ is a 67 year old Male who is Hospital Day # 19 and ICU Day #8 and POD #17 for left retrosigmoid craniotomy for tumor resection. Transfer summary: This is a 67y/o WM with PMH significant for HTN, DM, meningioma s/p craniotomy with resection 2013 (done at [facility]) wh presented 02/10/18 after having been seen by Dr. Parada in clinic for worsening double vision along with unsteady gait. Recent imaging noted interval development of his known residual mass, which was proven to be a meningioma. He was admitted for repeat surgical resection of meningioma. He underwent a Cerebral angiogram for possible embolization, however there was no suitable embolization targets on angiogram. He underwent a retrosigmoid craniectomy for resection of the infratentorial tumor meningioma, micodissection, and lumbar drain catheter placement. After surgery on 02/10 he was noted to be dysarthric. Speech evaluated pt and recommended npo status. On 02/12 and MRI of the brain showed L lateral aspect alejandra developed acute ischemia. Pt has R sided weakness along with dysarthria and dysphagia. On 02/13, a code white was called after the pt desaturated and was treated with duoneb, ezpap and steroids. On 02/15 it was found the feeding tube was in the esophagus and it was replaced, but there was a concern for possible aspiration. He was started on IV Vanco, azithro, flagyl and cefepime. Pt failed MBS. On 02/17 there was a discussion about code status and pt was made DNAR/DNI. GI was consulted for a peg tube and it was placed 02/21. The pt desatted again to 76% on 40% oxygen and was placed on 100% FIO2 and TF to MICU. He was placed on Airvo high flow oxygen. 02/22 Blood cx was negative. 02/24 Sputum Cx grew MRSA. He underwent an LP which preliminarily cx are negative. Antibiotics were changed to Meropenem on 02/24 and IV Vanco (received 02/17-02/22, then restarted 02/25). Pt is constipated and had not had BM in a number of days. He was started on stool softener, laxatives and today given fleets enema. He has had 1 small formed stool. Objective Data: Objective Information T PRBPSpO2 [id number]/8993% Date/Time02/28 4: 7: 7: 6: 7:00 Range(36.2C - 37.4C ) (78 - 101 ) (16 - 22 ) (111 - 142 )/ (57 - 89 ) (90% - 99% ) As of 28-Feb-2018 04:00:00, patient is on 6 L/min of oxygen via nasal cannula. Highest temp of 37.4 C was recorded at 02/27 20:00 Pain with Activity reported at 02/28 4:00: 0 Pain at Rest reported at 02/28 4:00: 0 ---- Intake and Output ----- Mn/Dy/Year TimeIntakeOutputNet Feb 28, 2018 6:00 [id number] Feb 27, 2018 10:00 [id number] Feb 27, 2018 2:00 [id number] The Intake and Output Totals for the last 24 hours are: [facility] [id number] Drain and tube details (included in I&O totals) 1500 cc Indwelling Catheter - Urethral( 28-Feb-2018 06:00:00 ) Physical Exam: Physical Exam: Neurological: AAOx2. R side weakness and facial droop. Able to weakly squeeze R hand and wiggle r toes, L side with fair strength. Perrla. Dysarthria improving. Cardiovascular: S1, S2, RRR. Pulses radials and pedals +2. No LE edema. Respiratory/Thorax: coarse Vesicular, nonlabored, L side diminished 1/2 up. On 6L NC Has congested cough. Genitourinary: flynn draining yellow urine. Gastrointestinal: BS+, soft nontender. has peg tube site nonred. Skin: warm and dry. Has incision behind L ear that is clean//intact Eyes: perrla anicteric. ENMT: no lesions. Extremities: R sided weakness. Allergies: Allergies: Codeine Sulfate: Unknown penicillin: Unknown insulin: Unknown Intolerances: Aspir 81: GI Upset Medications: Medications: Continuous Medications 1. Sodium Chloride 0.9% Infusion: 1000 mL IntraVenous <Continuous> Scheduled Medications 1. Albuterol 2.5 mg/ 3 mL Nebulizer Soln: 3 mL Inhalation Every 6 Hours 2. Atorvastatin: 40 mg Oral Daily 3. Budesonide 0.25 mg/ 2 mL Nebulizer Soln: 2 mL Inhalation Every 12 Hours 4. Docusate Oral Liquid: 100 mg Oral 2 Times a Day 5. Esomeprazole Oral Packet: 40 mg NasoGastric Tube 2 Times a Day 6. Formoterol 20 microgram/ 2 mL Neb Soln: 2 mL Inhalation Every 12 Hours 7. guaiFENesin Oral Liquid: 400 mg Oral Every 6 Hours 8. Heparin SubCutaneous: 5000 unit(s) SubCutaneous Every 8 Hours 9. Insulin Lispro Moderate Corrective Scale: unit(s) SubCutaneous Every 4 Hours 10. Meropenem IV Piggy Back: 1 gram(s) IntraVenous Piggyback Every 8 Hours 11. Nicotine 14 mg/ 24 hour TransDermal: 1 patch TransDermal Every 24 Hours 12. Nystatin Oral Liquid: 178716 unit(s) Oral Every 6 Hours 13. Polyethylene Glycol: 17 gram(s) Oral Daily 14. Sennosides: 2 tablet(s) Oral Daily 15. Silodosin (NON - Formulary): 8 mg NasoGastric Tube Daily 16. Sodium Chloride 0.9% Injectable Flush: 10 mL IntraVenous Flush Every 12 Hours 17. Valproic Acid (Depakene) Oral Liquid: 250 mg PEG Tube Every 12 Hours 18. Vancomycin 1 gram IVPB/ Premixed Soln 200 mL: 200 mL IntraVenous Piggyback Every 12 Hours PRN Medications 1. Acetaminophen: 650 mg Oral Every 6 Hours 2. Albuterol 2.5 mg/ 3 mL Nebulizer Soln: 3 mL Inhalation Every 2 Hours 3. Bisacodyl Rectal: 10 mg Rectal Daily 4. Dextrose 50% in Water Injectable: 25 gram(s) IntraVenous Push Every 15 Minutes 5. Fleet Adult (Sodium Phosphate) Rectal: 1 enema Rectal Daily 6. Glucagon Injectable: 1 mg IntraMuscular Every 15 Minutes 7. Heparin Flush 10 unit/ mL PF Injectable PRN: 5 mL IntraVenous Flush According to Flush Policy 8. hydrALAZINE Injectable: 10 mg IntraVenous Push Every 6 Hours 9. Lidocaine 1% Injectable (PICC KIT): 1 mL IntraDermal Once 10. Ondansetron Injectable: 4 mg IntraVenous Push Every 6 Hours 11. oxyCODONE Immediate Release: 5 mg Oral Every 4 Hours 12. oxyCODONE Immediate Release: 10 mg Oral Every 4 Hours 13. Polyethylene Glycol: 17 gram(s) Oral Daily Currently Suspended Medications 1. amLODIPine: 10 mg Oral Daily 2. hydroCHLOROthiazide: 25 mg Oral Daily 3. Lisinopril: 30 mg Oral Daily Recent Lab Results: Results: CBC: 02/28/2018 03:53 \ Hgb / \ 13.2 L / WBC Plt 23.8 H 390 / Hct \ / 41.7 \ RBC: 4.81 MCV: 87 RFP: 02/28/2018 03:53 NA+ Cl- BUN / 140 99 48 H / Glucose 239 H K+ HCO3- Creat \ 4.6 35 H 0.96 \ Calcium : 9.7Anion Gap : 11 Albumin : 2.6 L Phos : 2.5 I have reviewed these laboratory results: Glucose_POCT Trending View [id number] 00:33:00 27-Feb-2018 19:50:00 [id number] H 192 H Vancomycin Level, Trough 27-Feb-2018 05:55:00 ResultValue Vancomycin Level, Trough 17.3 Urinalysis 26-Feb-2018 08:35:00 ResultValue Color, Urine YELLOW Reference Range: STRAW,YELLOW Appearance, Urine CLEAR Specific [place], Urine 1.020 pH, Urine 5.0 Protein, Urine 100 (2+) A Glucose, Urine 50 (TRACE) A Blood, Urine MODERATE (2+) A Ketones, Urine 5 (TRACE) A Bilirubin, Urine NEGATIVE Urobilinogen, Urine 4.0 H Nitrite, Urine NEGATIVE Leukocyte Esterase, Urine NEGATIVE Results: Impression: 1. Nonobstructive bowel gas pattern. Left basilar atelectasis and correlate with developing infiltrate left pneumonia Xray Abdomen AP View [Feb 27 2018 12:22PM] Impression: 1. Interval improvement in left basilar aeration/consolidation. Xray Chest 1 View [Feb 27 2018 10:10AM] Assessment and Plan: Daily Risk Screen: Does patient have a central lineyes Central Line Typenon-tunneled Plan for non-tunneled central line removal todayno The patient continues to require non-tunneled central line access for parenteral medication Does patient have an indwelling urinary catheteryes Plan for indwelling urinary catheter removal todayno The patient continues to require indwelling urinary catheterization for critically ill patients who need accurate urinary output measurements Is the patient intubatedno Neurology: Diagnosis: This is a 67y/o WM with PMH significant for HTN, DM, COPD, tobacco use, CYNTHIA who presented for meningioma resection done 02/11 with 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 Neuro: S/p Meningioma resection 02/11 with course complicated by CVA resulting in dysphagia, dysarthria and R sided weakness. Dysarthria is improving. Neurosurgery performed LP 02/24 with opening pressure 15, CSF cx prelim neg, viral PCR pending, fungal stain neg, culture no organisms seen. -PT/OT/Speech therapy -Ask speech to reevaluate swallow Wednesday -cont Valproic acid -home trazodone and risperidone held -appreciate neurosurgery following Pulm: Hypoxemic respiratory failure s/p aspiration pneumonia found to have MRSA growing in sputum. Weaning oxygen to 6L. CXR with improvement of L infiltrate. -cont to try to wean down Airvo 50%, 50L -pulmonary toilet IPV CV: Hemodynamically stable. I/O +395. Pt appears dry. -cont to hold home amlodipine, HCTZ and lisinopril -stop lasix twice a day -consider restart home HCTZ tomorrow -cont atorvastatin ID: MRSA pneumonia, on Vanco (02/17-02/22 and restarted 02/25) and Meropenem started 02/24 emperic tx. Vanco trough 17.3 good range. Has oral thrush. Cultures: 02/24 CSF viral PCR pending culture 4+ granulocytes, no organisms seen Sputum MRSA 02/22 MRSA screen neg Blood cx neg 4 days -cont Vanco restarted 02/25 for a 7 day course -stop Meropenem -start oral nystatin GI: Constipation. dysphagia npo. Peg tube placed 02/21 and on trickle feeds. s/p EGD 02/21 showing LA grade D esophagitis and GI recommends ppi twice a day x 3 months. -dulcolax suppository today, if no results by this afternoon give fleets enema -cont docusate -cont sennosides -once bm, increase tubefeed rate to goal -cont ppi twice a day x 3 months, then needs to f/u with gi as OP Endocrine: DM at home on lantus and 70/30 insulin. BS here 168-220. -if repeat bs >200, calculate lantus dose and start -cont ssi -hypoglycemia protocol PPX: cont heparin and scds Disp: DNAR/DNI. Pt will need acute rehab at discharge. Pts niece and children have been living with him the past 2 years. He is a . -starteddischarge form -consult director of social services for placement when pt is stable -Pts Nephbibiana Macias gets all medical updates [phone] -TF to SDU when bed available. Pt discussed with Dr. Ramirez. Code Status: Code StatusDNAR with Added Limitations Comorbidities: Comorbidity: anemia Anemia: anemia of chronic disease Signature/Cosignature/Attestation: Critical Care PatientI have reviewed and evaluated the most recent data and results, personally examined the patient, and formulated the plan of care as presented above. This patient was critically ill and required continued critical care treatment. Teaching and any separately billable procedures are not included in the time calculation. Billing Provider Critical Care Time45 minute(s) Primary Critical Care Issue/Treatment (See Assessment and Plan for greater detail)-- This patient has significantly altered mental status (delirium, encephalopathy, coma, or anoxic brain damage). We are treating with appropriate medications, hemodynamic support, ventilatory and/or oxygenating support, as indicated, as well as doing intensive diagnostic evaluation and neurological monitoring. Please see assessment and plan above for greater detail.; -- This patient is believed to have significant heart failure requiring careful monitoring of fluid and respiratory status, including intensive treatment with cardiovascular medications or devices, as indicated. Please see assessment and plan above for greater detail.; -- This patient has impending or acute respiratory failure. We are treating with appropriate medications, ventilatory and/or oxygenating support, as indicated, as well as intensive monitoring. Please see assessment and plan above for greater detail. Electronic Signatures: Danielle Corral ([employer] OPERATOR-GROUP MANAGER) (Signed 27-Mar-2018 15:03) Authored: Service, Subjective Data, Objective Data, Assessment and Plan, Signature/Cosignature/Attestation Last Updated: 27-Mar-2018 15:03 by Danielle Corral ([employer] OPERATOR-GROUP MANAGER) CLINICAL EVENT Observed: 02/28/2018 Status: UNK Source: [facility]-CLEMENTINE[facility] 8:19 AM [facility]PITALS REPOSITORY Event: Topic: nsgy Details: patient was seen this morning wide awake, oriented x 3 fc x 4 briskly Provider / Team Contact Information: Provider/Team Contact Info-Pager Number: [phone] Electronic Signatures: Santiago Tompkins ( (Resident)) (Signed 28-Feb-2018 08:19) Authored: Event, Provider / Team Contact Information Last Updated: 28-Feb-2018 08:19 by Santiago Tompkins ( (Resident)) TH CHEST 1 VIEW Observed: 02/28/2018 Status: F Source: [facility] 7:25 AM [facility] REPOSITORY Patient Name: DIPESH BERMUDEZ STUDY: TH CHEST 1 VIEW; 02/28/2018 7:25 am INDICATION: Signs/Symptoms: mrsa pneumonia. COMPARISON: 02/27/2018 ACCESSION NUMBER(S): [id number] ORDERING CLINICIAN: DANIELLE CORRAL FINDINGS: CARDIOMEDIASTINAL SILHOUETTE: Cardiomegaly versus pericardial effusion. LUNGS: Mild perihilar interstitial prominence with slight improvement in left lung aeration. Question mild perihilar edema No remarkable upper abdominal findings. BONES: No acute osseous changes. IMPRESSION: 1. Question mild perihilar edema but no lobar or segmental consolidation. Follow-up with PA and lateral x-ray if there is continued concern for developing pneumonia Electronically signed by: Brandee COTTER MD GLUCOSE-POCT Collected: 02/28/2018 Status: F Source: [facility] 4:47 AM [facility] REPOSITORY TYPE CODE TESTS RESULT OUT OF RANGE REFERENCE UNITS LAB GLUP(LOINC) 74 - 99 mg/dL High 220 GLUCOSE-POCT Performed By: #### GLUPO #### [facility] [address] [address] [employer] [place] [address] CBC Collected: 02/28/2018 Status: F Source: [facility] 3:53 AM [facility] REPOSITORY TYPE CODE TESTS RESULT OUT OF REFERENCE UNITS RANGE LAB WBCR(LOINC 4.4 - 11.3 x10E9/L ) WBC High 23.8 LAB NRBC(LOINC 0.0-0.0 /100 WBC ) NUCLEATED RBC 0.0 LAB RBCCT(LOIN 4.50 - 5.90 x10E12/L C) RBC 4.81 LAB HGB(LOINC) 13.5 - 17.5 g/dL Low HGB 13.2 LAB HCT(LOINC) 41.0 - 52.0 % HCT 41.7 LAB MCV(LOINC) 80 - 100 fL MCV 87 LAB MCHC2(LOIN 32.0 - 36.0 g/dL C) Low MCHC 31.7 LAB PLTCT(LOIN 150 - 450 x10E9/L C) PLT 390 LAB RDWCV(LOIN 11.5 - 14.5 % C) RDW-CV 14.5 Performed By: #### CBC #### [facility] [address] [place] [address] RENAL FUNCTION PANEL Collected: 02/28/2018 Status: F Source: [facility] 3:53 AM [facility]ALS REPOSITORY TYPE CODE TESTS RESULT OUT OF REFERENCE UNITS RANGE LAB GLU(LOINC) 74 - 99 mg/dL GLUCOSE High 239 LAB SOD(LOINC) 136 - 145 mmol/L SODIUM 140 LAB K(LOINC) 3.5 - 5.3 mmol/L POTASSIUM 4.6 LAB CHLOR(LOIN 98 - 107 mmol/L C) CHLORIDE 99 LAB BIC(LOINC) 21 - 32 mmol/L BICARBONATE High 35 LAB ANGAP(LOIN 10 - 20 mmol/L C) ANION GAP 11 LAB UREA(LOINC 6 - 23 mg/dL ) UREA High NITROGEN 48 LAB CREA(LOINC 0.50 - 1.30 mg/dL ) CREATININE 0.96 LAB GFRFN(LOIN >60 mL/min/1.7 C) 3m2 GFR-NON AM. >60 LAB GFRAA(LOIN >60 mL/min/1.7 C) 3m2 GFR- AM. >60 Result Comment: CALCULATIONS OF ESTIMATED GFR ARE PERFORMED USING THE MDRD STUDY EQUATION FOR THE IDMS-TRACEABLE CREATININE METHODS. CLIN CHEM 2007;53:766-72 LAB CA(LOINC) 8.6 - 10.6 mg/dL CALCIUM 9.7 LAB PHOS(LOINC) 2.5 - 4.9 mg/dL PHOSPHORUS 2.5 Result Comment: The performance characteristics of phosphorus testing in heparinized plasma have been validated by the individual laboratory site where testing is performed. Testing on heparinized plasma is not approved by the FDA; however, such approval is not necessary. LAB ALB(LOINC) 3.4 - 5.0 g/dL Low ALBUMIN 2.6 Performed By: #### RENAL #### [facility] [address] [place] [address] HEMOGLOBIN A1C Collected: 02/28/2018 Status: F Source: [facility] 3:53 AM [facility]OSPITALS REPOSITORY TYPE CODE TESTS RESULT OUT OF RANGE REFERENCE UNITS LAB HBA1C(LOINC % ) HGB A1C 8.1 Result Comment: Diagnosis of Diabetes-Adults Non-Diabetic: < or = 5.6% Increased risk for developing diabetes: 5.7-6.4% Diagnostic of diabetes: > or = 6.5% . Monitoring of Diabetes Age (y) Therapeutic Goal (%) Adults: >18 <7.0 Pediatrics: 13-18 <7.5 7-12 <8.0 0- 6 7.5-8.5 [employer]. Diabetes Care 33(S1), May 2009. LAB ESAVG(LOINC) MG/DL EST.AVG.GLUCOSE 186 Performed By: #### HBA1E #### [facility] [address] [place] [address] COAGULATION SCREEN Collected: 02/28/2018 Status: CANCELLED Source: [facility] 3:53 AM [facility]OS[facility]ITALS REPOSITORY Order Comment: TEST COAGULATION SCREEN WAS CANCELLED, 03/03/2018 08:18 NO SPECIMEN RECEIVED IN LAB. TYPE CODE TESTS RESULT OUT OF REFERENCE UNITS RANGE LAB PT(LOINC) PROTHROMBIN TIME Canceled LAB INR(LOINC) PT, INR Canceled LAB APTT(LOINC ) APTT Canceled Result Comment: THE APTT IS NO LONGER USED FOR MONITORING UNFRACTIONATED HEPARIN THERAPY. FOR MONITORING HEPARIN THERAPY, USE THE HEPARIN ASSAY. Performed By: #### COAGS #### [facility] [address] [place] [address] GLUCOSE-POCT Collected: 02/28/2018 Status: F Source: [facility] 12:33 AM [facility]ITALS REPOSITORY TYPE CODE TESTS RESULT OUT OF RANGE REFERENCE UNITS LAB GLUP(LOINC) 74 - 99 mg/dL High 181 GLUCOSE-POCT Performed By: #### GLUPO #### [facility] [address] [place] [address] GLUCOSE-POCT Collected: 02/27/2018 Status: F Source: [facility] 7:50 PM [facility]OSPITALS REPOSITORY TYPE CODE TESTS RESULT OUT OF RANGE REFERENCE UNITS LAB GLUP(LOINC) 74 - 99 mg/dL High 192 GLUCOSE-POCT Performed By: #### GLUPO #### [facility] [address] [place] [address] GLUCOSE-POCT Collected: 02/27/2018 Status: F Source: [facility] 11:11 AM [facility]OSPITALS REPOSITORY TYPE CODE TESTS RESULT OUT OF RANGE REFERENCE UNITS LAB GLUP(LOINC) 74 - 99 mg/dL High 192 GLUCOSE-POCT Performed By: #### GLUPO #### [facility] [address] [place] [address] DAILY PROGRESS NOTE - Observed: 02/27/2018 Status: COMPLETED Source: [facility] 9:49 AM [facility]OSPITALS REPOSITORY Service: Critical Care Service: ServiceMICU Subjective Data: ID Statement: DIPESH BERMUDEZ is a 67 year old Male who is Hospital Day # 18 and ICU Day #7 and POD #16 for left retrosigmoid craniotomy for tumor resection. slept well last night. denies pain/sob. breathing is pretty good. Objective Data: Objective Information T PRBPSpO2 [id number]/8895% Date/Time02/27 8: 9: 9: 9: 9:00 Range(36.3C - 37.2C ) (75 - 108 ) (15 - 28 ) (94 - 144 )/ (47 - 94 ) (87% - 98% ) As of 27-Feb-2018 07:00:00, patient is on 50 L/min of oxygen via airvo. Highest temp of 37.2 C was recorded at 02/27 8:00 ---- Intake and Output ----- Mn/Dy/Year TimeIntakeOutputNet Feb 27, 2018 6:00 [id number] Feb 26, 2018 10:00 [id number] Feb 26, 2018 2:00 [id number] The Intake and Output Totals for the last 24 hours are: [facility] [id number] Drain and tube details (included in I&O totals) 2180 cc Indwelling Catheter - Urethral( 27-Feb-2018 06:00:00 ) Physical Exam: Physical Exam: Neurological: AAOx2. R side weakness and facial droop. Able to weakly squeeze R hand and wiggle r toes, L side with fair strength. Perrla. Dysarthria improving. Cardiovascular: S1, S2, RRR. Pulses radials and pedals +2. No LE edema. Respiratory/Thorax: Vesicular, nonlabored, L side diminished 2/3 up. On 50% airvo, 50L. Has congested cough. Genitourinary: flynn draining yellow urine. Gastrointestinal: BS+, soft nontender. has peg tube site nonred. Skin: warm and dry. Has incision behind L ear that is clean//intact Eyes: perrla anicteric. ENMT: no lesions. Extremities: R sided weakness. Allergies: Allergies: Codeine Sulfate: Unknown penicillin: Unknown insulin: Unknown Intolerances: Aspir 81: GI Upset Medications: Medications: Continuous Medications 1. Sodium Chloride 0.9% Infusion: 1000 mL IntraVenous <Continuous> Scheduled Medications 1. Albuterol 2.5 mg/ 3 mL Nebulizer Soln: 3 mL Inhalation Every 6 Hours 2. Atorvastatin: 40 mg Oral Daily 3. Budesonide 0.25 mg/ 2 mL Nebulizer Soln: 2 mL Inhalation Every 12 Hours 4. Docusate Oral Liquid: 100 mg Oral 2 Times a Day 5. Esomeprazole Oral Packet: 40 mg NasoGastric Tube 2 Times a Day 6. Formoterol 20 microgram/ 2 mL Neb Soln: 2 mL Inhalation Every 12 Hours 7. Furosemide Injectable: 40 mg IntraVenous Push 2 Times a Day 8. guaiFENesin Oral Liquid: 400 mg Oral Every 6 Hours 9. Heparin SubCutaneous: 5000 unit(s) SubCutaneous Every 8 Hours 10. Insulin Lispro Moderate Corrective Scale: unit(s) SubCutaneous Every 4 Hours 11. Meropenem IV Piggy Back: 1 gram(s) IntraVenous Piggyback Every 8 Hours 12. Nicotine 14 mg/ 24 hour TransDermal: 1 patch TransDermal Every 24 Hours 13. Polyethylene Glycol: 17 gram(s) Oral Daily 14. Sennosides: 2 tablet(s) Oral Daily 15. Silodosin (NON - Formulary): 8 mg NasoGastric Tube Daily 16. Sodium Chloride 0.9% Injectable Flush: 10 mL IntraVenous Flush Every 12 Hours 17. Valproic Acid (Depakene) Oral Liquid: 250 mg PEG Tube Every 12 Hours 18. Vancomycin 1 gram IVPB/ Premixed Soln 200 mL: 200 mL IntraVenous Piggyback Every 12 Hours PRN Medications 1. Acetaminophen: 650 mg Oral Every 6 Hours 2. Albuterol 2.5 mg/ 3 mL Nebulizer Soln: 3 mL Inhalation Every 2 Hours 3. Bisacodyl Rectal: 10 mg Rectal Daily 4. Dextrose 50% in Water Injectable: 25 gram(s) IntraVenous Push Every 15 Minutes 5. Fleet Adult (Sodium Phosphate) Rectal: 1 enema Rectal Daily 6. Glucagon Injectable: 1 mg IntraMuscular Every 15 Minutes 7. Heparin Flush 10 unit/ mL PF Injectable PRN: 5 mL IntraVenous Flush According to Flush Policy 8. hydrALAZINE Injectable: 10 mg IntraVenous Push Every 6 Hours 9. Lidocaine 1% Injectable (PICC KIT): 1 mL IntraDermal Once 10. Ondansetron Injectable: 4 mg IntraVenous Push Every 6 Hours 11. oxyCODONE Immediate Release: 5 mg Oral Every 4 Hours 12. oxyCODONE Immediate Release: 10 mg Oral Every 4 Hours 13. Polyethylene Glycol: 17 gram(s) Oral Daily Currently Suspended Medications 1. amLODIPine: 10 mg Oral Daily 2. hydroCHLOROthiazide: 25 mg Oral Daily 3. Lisinopril: 30 mg Oral Daily Recent Lab Results: Results: CBC: 02/27/2018 05:55 \ Hgb / \ 12.0 L / WBC Plt 24.2 H 343 / Hct \ / 37.3 L \ RBC: 4.35 L MCV: 86 RFP: 02/27/2018 05:56 NA+ Cl- BUN / 141 100 48 H / Glucose 161 H K+ HCO3- Creat \ 4.2 30 1.02 \ Calcium : 9.5Anion Gap : 15 Albumin : 2.4 L Phos : 2.8 I have reviewed these laboratory results: Vancomycin Level, Trough 27-Feb-2018 05:55:00 ResultValue Vancomycin Level, Trough 17.3 Results: Xray Chest 1 View [Feb 27 2018 8:06AM] Assessment and Plan: Daily Risk Screen: Does patient have a central lineno Does patient have an indwelling urinary catheteryes Plan for indwelling urinary catheter removal todayno The patient continues to require indwelling urinary catheterization for critically ill patients who need accurate urinary output measurements Is the patient intubatedno Neurology: Diagnosis: This is a 67y/o WM with PMH significant for HTN, DM, COPD, tobacco use, CYNTHIA who presented for meningioma resection done 02/11 with 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 Neuro: S/p Meningioma resection 02/11 with course complicated by CVA resulting in dysphagia, dysarthria and R sided weakness. Neurosurgery performed LP 02/24 with opening pressure 15, CSF viral PCR pending, fungal stain neg, culture no organisms seen. -PT/OT/Speech therapy -Ask speech to reevaluate swallow Wednesday -cont Valproic acid -home trazodone and risperidonse held -appreciate neurosurgery following Pulm: Hypoxemic respiratory failure s/p aspiration pneumonia found to have MRSA growing in sputum. Weaning down airvo to 50%. CXR with improvement of L infiltrate. No clear effusion found on bedside US yesterday. -cont to try to wean down Airvo 50%, 50L -pulmonary toilet CV: Hemodynamically stable. I/O -605L last 24h on lasix twice a day. -cont to hold home amlodipine, HCTZ and lisinopril -stop lasix twice a day -consider restart home HCTZ tomorrow -cont atorvastatin ID: MRSA pneumonia, on Vanco (02/17-02/22 and restarted 02/25) and Meropenem started 02/24 emperic tx. Vanco trough 17.3 good range. Has oral thrush. Cultures: 02/24 CSF viral PCR pending culture 4+ granulocytes, no organisms seen Sputum MRSA 02/22 MRSA screen neg Blood cx neg 4 days -cont Vanco restarted 02/25 for an 8 day course -cont Meropenem for now and re evaluate once all cx back -start oral nystatin GI: Constipation. dysphagia npo. Peg tube placed 02/21 and on trickle feeds. s/p EGD 02/21 showing LA grade D esophagitis and GI recommends ppi twice a day x 3 months. -dulcolax suppository today, if no results by this afternoon give fleets enema -cont docusate -cont sennosides -once bm, increase tubefeed rate to goal -cont ppi twice a day x 3 months, then needs to f/u with gi as OP Endocrine: DM at home on lantus and 70/30 insulin. BS here 136-167. -if repeat bs >200, calculate lantus dose and start -cont ssi -hypoglycemia protocol PPX: cont heparin and scds Disp: DNAR/DNI. Pt will need acute rehab at discharge. Pts niece and children have been living with him the past 2 years. He is a . -start discharge form -consult director of social services for placement when pt is stable -Pts Nephbibiana Macias gets all medical updates [phone] -Possible TF to floor tomorrow once constipation issue resolved and FIO2 weaned down Pt discussed with Dr. Coto. Code Status: Code StatusDNAR with Added Limitations Comorbidities: Comorbidity: anemia Anemia: anemia of chronic disease Signature/Cosignature/Attestation: Critical Care PatientI have reviewed and evaluated the most recent data and results, personally examined the patient, and formulated the plan of care as presented above. This patient was critically ill and required continued critical care treatment. Teaching and any separately billable procedures are not included in the time calculation. Billing Provider Critical Care Time60 minute(s) Primary Critical Care Issue/Treatment (See Assessment and Plan for greater detail)-- This patient has significantly altered mental status (delirium, encephalopathy, coma, or anoxic brain damage). We are treating with appropriate medications, hemodynamic support, ventilatory and/or oxygenating support, as indicated, as well as doing intensive diagnostic evaluation and neurological monitoring. Please see assessment and plan above for greater detail.; -- This patient is believed to have significant heart failure requiring careful monitoring of fluid and respiratory status, including intensive treatment with cardiovascular medications or devices, as indicated. Please see assessment and plan above for greater detail.; -- This patient has impending or acute respiratory failure. We are treating with appropriate medications, ventilatory and/or oxygenating support, as indicated, as well as intensive monitoring. Please see assessment and plan above for greater detail. Electronic Signatures: Danielle Corral ([employer] OPERATOR-GROUP MANAGER) (Signed 27-Feb-2018 12:44) Authored: Service, Subjective Data, Objective Data, Assessment and Plan, Signature/Cosignature/Attestation Last Updated: 27-Feb-2018 12:44 by Danielle Corral ([employer] OPERATOR-GROUP MANAGER) TH ABDOMEN AP VIEW Observed: 02/27/2018 Status: F Source: [facility] 9:12 AM [facility] REPOSITORY Patient Name: DIPESH BERMUDEZ STUDY: ABDOMEN AP VIEW; 02/27/2018 9:12 am INDICATION: Signs/Symptoms: constipation. COMPARISON: 02/16/2018 ACCESSION NUMBER(S): [id number] ORDERING CLINICIAN: DANIELLE CORRAL FINDINGS: Feeding tube overlies the body of stomach. Residual contrast in nondistended colon. Limited evaluation of pneumoperitoneum on supine imaging, however no gross evidence of free air is noted. Left basilar opacities probably atelectatic but correlate with basilar infiltrates/atelectasis Osseous structures demonstrate no acute bony changes. IMPRESSION: 1. Nonobstructive bowel gas pattern. Left basilar atelectasis and correlate with developing infiltrate left pneumonia Electronically signed by: Brandee COTTER MD GLUCOSE-POCT Collected: 02/27/2018 Status: F Source: [facility] 8:06 AM [facility] REPOSITORY TYPE CODE TESTS RESULT OUT OF RANGE REFERENCE UNITS LAB GLUP(LOINC) 74 - 99 mg/dL High 168 GLUCOSE-POCT Performed By: #### GLUPO #### [facility] [address] [place] [address] TH CHEST 1 VIEW Observed: 02/27/2018 Status: F Source: [facility] 7:33 AM [facility] REPOSITORY Patient Name: DIPESH BERMUDEZ STUDY: TH CHEST 1 VIEW; 02/27/2018 7:33 am INDICATION: Signs/Symptoms: mrsa pneumonia. COMPARISON: 02/25/2018 ACCESSION NUMBER(S): [id number] ORDERING CLINICIAN: DANIELLE CORRAL FINDINGS: CARDIOMEDIASTINAL SILHOUETTE: Cardiomegaly versus pericardial effusion.. LUNGS: Slight interval improvement in left basilar aeration/effusion. ABDOMEN: No remarkable upper abdominal findings. BONES: No acute osseous changes. IMPRESSION: 1. Interval improvement in left basilar aeration/consolidation. Electronically signed by: Brandee COTTER MD RENAL FUNCTION PANEL Collected: 02/27/2018 Status: F Source: [facility] 5:56 AM [facility] REPOSITORY TYPE CODE TESTS RESULT OUT OF REFERENCE UNITS RANGE LAB GLU(LOINC) 74 - 99 mg/dL GLUCOSE High 161 LAB SOD(LOINC) 136 - 145 mmol/L SODIUM 141 LAB K(LOINC) 3.5 - 5.3 mmol/L POTASSIUM 4.2 LAB CHLOR(LOIN 98 - 107 mmol/L C) CHLORIDE 100 LAB BIC(LOINC) 21 - 32 mmol/L BICARBONATE 30 LAB ANGAP(LOIN 10 - 20 mmol/L C) ANION GAP 15 LAB UREA(LOINC 6 - 23 mg/dL ) UREA High NITROGEN 48 LAB CREA(LOINC 0.50 - 1.30 mg/dL ) CREATININE 1.02 LAB GFRFN(LOIN >60 mL/min/1.7 C) 3m2 GFR-NON AM. >60 LAB GFRAA(LOIN >60 mL/min/1.7 C) 3m2 GFR- AM. >60 Result Comment: CALCULATIONS OF ESTIMATED GFR ARE PERFORMED USING THE MDRD STUDY EQUATION FOR THE IDMS-TRACEABLE CREATININE METHODS. CLIN CHEM 2007;53:766-72 LAB CA(LOINC) 8.6 - 10.6 mg/dL CALCIUM 9.5 LAB PHOS(LOINC) 2.5 - 4.9 mg/dL PHOSPHORUS 2.8 Result Comment: The performance characteristics of phosphorus testing in heparinized plasma have been validated by the individual laboratory site where testing is performed. Testing on heparinized plasma is not approved by the FDA; however, such approval is not necessary. LAB ALB(LOINC) 3.4 - 5.0 g/dL Low ALBUMIN 2.4 Performed By: #### RENAL #### [facility] [address] [place] [address] CBC Collected: 02/27/2018 Status: F Source: [facility] 5:55 AM [facility] REPOSITORY TYPE CODE TESTS RESULT OUT OF REFERENCE UNITS RANGE LAB WBCR(LOINC 4.4 - 11.3 x10E9/L ) WBC High 24.2 LAB NRBC(LOINC 0.0-0.0 /100 WBC ) NUCLEATED RBC 0.0 LAB RBCCT(LOIN 4.50 - 5.90 x10E12/L C) Low RBC 4.35 LAB HGB(LOINC) 13.5 - 17.5 g/dL Low HGB 12.0 LAB HCT(LOINC) 41.0 - 52.0 % Low HCT 37.3 LAB MCV(LOINC) 80 - 100 fL MCV 86 LAB MCHC2(LOIN 32.0 - 36.0 g/dL C) MCHC 32.2 LAB PLTCT(LOIN 150 - 450 x10E9/L C) PLT 343 LAB RDWCV(LOIN 11.5 - 14.5 % C) High RDW-CV 14.6 Performed By: #### CBC #### [facility] [address] [place] [id number] VANCOMYCIN,TROUGH Collected: Status: F Source: [facility] 02/27/2018 5:55 AM [facility] REPOSITORY TYPE CODE TESTS RESULT OUT OF RANGE REFERENCE UNITS LAB VANCT(LOINC 5.0 - 20.0 ug/mL ) 17.3 VANCOMYCIN,T ROUGH Result Comment: Vancomycin levels should be interpreted in conjunction with the dose, disease being treated, vancomycin JENIFFER, time of draw (trough concentrations should be obtained just before the next dose at steady-state), and other clinical information. Trough concentrations of 15-20 ug/mL are desired for severe infections. Ref.: Am J Health-Syst Pharm 66: 83-98, 2008. Performed By: #### VANCT #### [facility] [address] [place] [address] DAILY PROGRESS Observed: 02/27/2018 Status: COMPLETED Source: [facility] NOTE-NEUROSURGERY 1:01 AM [facility]ITALS REPOSITORY Service: Neurosurgery Subjective Data: DIPESH BERMUDEZ is a 67 year old Male who is Hospital Day # 18 and POD #16 for left retrosigmoid craniotomy for tumor resection. Objective Data: Objective Information: ---- Intake and Output ----- Mn/Dy/Year TimeIntakeOutputNet Feb 25, 2018 10:00 [id number] Feb 25, 2018 2:00 [id number] Feb 25, 2018 6:00 [id number] The Intake and Output Totals for the last 24 hours are: IntakeOutputNet [id number] Physical Exam: Neurological: EOSp, PERRL, tracks Verbal )x1 (name), Ox2 with choices FCx4 Assessment and Plan: Assessment: 67M with a h/o HTN, DM, prev L crani for meningioma p/w worsening gait and diplopia, interval inc in residual L petroclival meningioma 02/10 s/p angio with no target for embo. vMRI done. Patient doing remarkably well this morning (see neurological exam). 02/11 s/p L crani for tumor resection. 02/12 MRI POC 02/13 Code White 10/ code white, concern for aspiration, transferred to NSU for increased O2 requirement. CTH/CT chest stable 02/24 s/p LP OP 15 CSF R89K, W346, Pro 484, Glu 64; ABG stable Plan - f/u ammonia - please page nsg with questions Signature/Cosignature/Attestation: Attending AttestationI reviewed the resident/fellows documentation and discussed the patient with the resident/fellow. I agree with the resident/fellows medical decision making as documented in the residents note. Electronic Signatures: Jaiden Cyr) (Signed 28-Feb-2018 09:09) Authored: Signature/Cosignature/Attestation Co-Signer: Service, Subjective Data, Objective Data, Assessment and Plan, Signature/Cosignature/Attestation Tory Abraham (Resident)) (Signed 27-Feb-2018 01:02) Authored: Service, Subjective Data, Objective Data, Assessment and Plan, Signature/Cosignature/Attestation Last Updated: 28-Feb-2018 09:09 by Jaiden Cyr) DAILY PROGRESS NOTE - Observed: 02/26/2018 Status: COMPLETED Source: [facility] 10:23 AM [facility] REPOSITORY Service: Critical Care Service: ServiceMICU Subjective Data: ID Statement: DIPESH BERMUDEZ is a 67 year old Male who is Hospital Day # 17 and ICU Day #6 and POD #15 for left retrosigmoid craniotomy for tumor resection. Nurse reports that patient refused sub Q heparin. I discussed with him the rationale for heparin and potential complications of not receiving it including blood clots with stroke or pulmonary emboli. He initially became very angry, told me he does not want to take it, only wants to take medication that he takes at home. I assessed his orientation and he is oriented x 2, could not remember the year. Pt denies pain or sob. Objective Data: Objective Information T PRBPSpO2 [id number]% Date/Time02/26 8: 9: 9: 9: 9:00 Range(36.3C - 37.4C ) (79 - 107 ) (12 - 27 ) (96 - 139 )/ (54 - 102 ) (90% - 98% ) As of 26-Feb-2018 07:00:00, patient is on 50 L/min of oxygen via Airvo. Highest temp of 37.4 C was recorded at 02/26 0:00 Pain with Activity reported at 02/26 4:00: 0 Pain at Rest reported at 02/26 8:00: 2 ---- Intake and Output ----- Mn/Dy/[facility] Feb 26, 2018 6:00 [id number] Feb 25, 2018 10:00 [id number] Feb 25, 2018 2:00 [phone] The Intake and Output Totals for the last 24 hours are: [facility] [id number] Drain and tube details (included in I&O totals) 2335 cc Indwelling Catheter - Urethral( 26-Feb-2018 06:00:00 ) Weights 02/26 4:00: Weight in kg (Weight (kg)) 87.5 02/26 4:00: Weight in lbs ((lbs)) 192.9 Physical Exam: Physical Exam: Neurological: AAOx2. R side weakness and facial droop. Able to weakly squeeze R hand and wiggle r toes, L side with fair strength. Perrla. Dysarthria Cardiovascular: S1, S2, RRR. Pulses radials and pedals +2. No LE edema. Respiratory/Thorax: Vesicular, nonlabored. On 60% airvo, 50L. Has congested cough. Gastrointestinal: BS+, soft nontender. Skin: warm and dry. Has incision behind L ear that is clean//intact Eyes: perrla anicteric. ENMT: no lesions. Extremities: R sided weakness. Allergies: Allergies: Codeine Sulfate: Unknown penicillin: Unknown insulin: Unknown Intolerances: Aspir 81: GI Upset Medications: Medications: Continuous Medications 1. Sodium Chloride 0.9% Infusion: 1000 mL IntraVenous <Continuous> Scheduled Medications 1. Albuterol 2.5 mg/ 3 mL Nebulizer Soln: 3 mL Inhalation Every 6 Hours 2. Atorvastatin: 40 mg Oral Daily 3. Budesonide 0.25 mg/ 2 mL Nebulizer Soln: 2 mL Inhalation Every 12 Hours 4. Docusate Oral Liquid: 100 mg Oral 2 Times a Day 5. Esomeprazole Oral Packet: 40 mg NasoGastric Tube 2 Times a Day 6. Formoterol 20 microgram/ 2 mL Neb Soln: 2 mL Inhalation Every 12 Hours 7. Furosemide Injectable: 40 mg IntraVenous Push 2 Times a Day 8. guaiFENesin Oral Liquid: 400 mg Oral Every 6 Hours 9. Heparin SubCutaneous: 5000 unit(s) SubCutaneous Every 8 Hours 10. Insulin Lispro Moderate Corrective Scale: unit(s) SubCutaneous Every 4 Hours 11. Meropenem IV Piggy Back: 1 gram(s) IntraVenous Piggyback Every 8 Hours 12. Nicotine 14 mg/ 24 hour TransDermal: 1 patch TransDermal Every 24 Hours 13. Sennosides: 2 tablet(s) Oral Daily 14. Silodosin (NON - Formulary): 8 mg NasoGastric Tube Daily 15. Sodium Chloride 0.9% Injectable Flush: 10 mL IntraVenous Flush Every 12 Hours 16. Valproic Acid (Depakene) Oral Liquid: 250 mg PEG Tube Every 12 Hours 17. Vancomycin 1 gram IVPB/ Premixed Soln 200 mL: 200 mL IntraVenous Piggyback Every 12 Hours PRN Medications 1. Acetaminophen: 650 mg Oral Every 6 Hours 2. Albuterol 2.5 mg/ 3 mL Nebulizer Soln: 3 mL Inhalation Every 2 Hours 3. Bisacodyl Rectal: 10 mg Rectal Daily 4. Dextrose 50% in Water Injectable: 25 gram(s) IntraVenous Push Every 15 Minutes 5. Fleet Adult (Sodium Phosphate) Rectal: 1 enema Rectal Daily 6. Glucagon Injectable: 1 mg IntraMuscular Every 15 Minutes 7. Heparin Flush 10 unit/ mL PF Injectable PRN: 5 mL IntraVenous Flush According to Flush Policy 8. hydrALAZINE Injectable: 10 mg IntraVenous Push Every 6 Hours 9. Lidocaine 1% Injectable (PICC KIT): 1 mL IntraDermal Once 10. Ondansetron Injectable: 4 mg IntraVenous Push Every 6 Hours 11. oxyCODONE Immediate Release: 5 mg Oral Every 4 Hours 12. oxyCODONE Immediate Release: 10 mg Oral Every 4 Hours 13. Polyethylene Glycol: 17 gram(s) Oral Daily Currently Suspended Medications 1. amLODIPine: 10 mg Oral Daily 2. hydroCHLOROthiazide: 25 mg Oral Daily 3. Lisinopril: 30 mg Oral Daily Recent Lab Results: Results: CBC: 02/26/2018 03:58 \ Hgb / \ 12.9 L / WBC Plt 26.0 H 336 / Hct \ / 38.4 L \ RBC: 4.57 MCV: 84 RFP: 02/26/2018 03:58 NA+ Cl- BUN / 139 103 48 H / Glucose 167 H K+ HCO3- Creat \ 4.7 25 1.15 \ Calcium : 9.7Anion Gap : 16 Albumin : 2.4 L Phos : 2.3 L I have reviewed these laboratory results: Urinalysis 26-Feb-2018 08:35:00 ResultValue Color, Urine YELLOW Reference Range: STRAW,YELLOW Appearance, Urine CLEAR Specific [place], Urine 1.020 pH, Urine 5.0 Protein, Urine 100 (2+) A Glucose, Urine 50 (TRACE) A Blood, Urine MODERATE (2+) A Ketones, Urine 5 (TRACE) A Bilirubin, Urine NEGATIVE Urobilinogen, Urine 4.0 H Nitrite, Urine NEGATIVE Leukocyte Esterase, Urine NEGATIVE Urinalysis, Microscopic 26-Feb-2018 08:35:00 ResultValue White Cells 3 Red Blood Cells 6 A Epithelial Cells, Squamous <1 Bacteria, Urine 1+ A Mucous 1+ Ammonia, Plasma 26-Feb-2018 03:58:00 ResultValue Ammonia, Plasma 55 A Glucose_POCT 24-Feb-2018 23:12:00 ResultValue Glucose-POCT 157 H Cell Count + Differential, CSF 24-Feb-2018 23:02:00 ResultValue CSF Color Red CSF Clarity Turbid Tube # Tube 1 Total Nucleated Cell Count, CSF 346 [place] [address] H Supernatant Xanthochromic Comment, CSF SEE BELOW Cell count and differential may be inaccurate due to particulate matter and/or clots. Lymphocyte, CSF 7 Monocyte, CSF 9 Cells Counted, CSF 100 Neutrophil, CSF 84 Total Protein and Glucose, CSF 24-Feb-2018 23:02:00 ResultValue Total Protein, CSF 484 H Glucose, CSF 64 Miscellaneous Lab Test 24-Feb-2018 23:02:00 ResultValue Test Sent Out VIRAL MENINGITIS PANEL BY PCR Culture, CSF, includes smear 24-Feb-2018 23:02:00 ResultValue Gram Stain 4+ GRANULOCYTES, NO ORGANISM SEEN Culture, Fungus +smear 24-Feb-2018 23:02:00 ResultValue Fungal Smear FLUORESCENT FUNGAL STAIN: NEGATIVE Culture, Respiratory Lower, incl. smear 24-Feb-2018 17:00:00 ResultValue Gram Stain GRAM STAIN INDICATES SPECIMEN CONSISTS OF LOWER RESPIRATORY TRACT SECRETIONS. NO PREDOMINANT ORGANISM. Organism Staphylococcus aureus 4+ METHICILLIN(OXACILLIN)RESISTANT METHICILLIN(OXACILLIN)RESISTANT STAPHYLOCOCCI ARE RESISTANT TO ALL CURRENTLY AVAILABLE PENICILLINS, BETA-LACTAM/BETA-LACTAMASE INHIBITOR COMBINATIONS (INCLUDING AMPICILLIN/SULBACTAM, AM A - Antibiotics Result-Interpretation - Ampicillin R Gonzalez S=Susceptible I=Intermediate R=Resistant NS=Non-Susceptible S-DD=Susceptible Dose DependentDependent X=Reported In Error - Ciprofloxacin R - Clindamycin S - Erythromycin R - Gentamicin S - Levofloxacin R - Oxacillin R - Penicillin R - Tetracycline S - Trimethoprim/ Sulfamethoxazole S - Vancomycin S Results: Impression: 1. Redemonstration of left basilar opacity concerning for consolidation/pneumonia (possibly aspiration induced). Left-sided pleural effusion cannot be excluded. 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 Neuro: S/p Meningioma resection 02/11 with course complicated by CVA resulting in dysphagia, dysarthria and R sided weakness. Neurosurgery performed LP 02/24 with opening pressure 15, CSF viral PCR pending, fungal stain neg, culture no organisms seen. -PT/OT/Speech therapy -cont Valproic acid -home trazodone and risperidonse held -appreciate neurosurgery following Pulm: Hypoxemic respiratory failure s/p aspiration pneumonia found to have MRSA growing in sputum. L side lung with large infiltrate, if effusion also present. -f/u bedside US for effusion and tap if found -cont to try to wean down Airvo 60%, 50L -pulmonary toilet CV: Hemodynamically stable. I/O -1.2L last 24h on lasix twice a day. -cont to hold home amlodipine, HCTZ and lisinopril -cont lasix twice a day -cont atorvastatin ID: MRSA pneumonia, on Vanco (02/17-02/22 and restarted 02/25) and Meropenem started 02/24 emperic tx. Cultures: 02/24 CSF viral PCR pending culture 4+ granulocytes, no organisms seen Sputum MRSA 02/22 MRSA screen neg Blood cx neg 4 days -cont Vanco restarted 02/25, f/u vanco trough after 4th dose -cont Meropenem for now and re evaluate once all cx back GI: Constipation. dysphagia npo. Peg tube placed 02/21 and on trickle feeds. s/p EGD 02/21 showing LA grade D esophagitis and GI recommends ppi twice a day x 3 months. -dulcolax suppository today, if no results by this afternoon give fleets enema -cont docusate -cont sennosides -once bm, increase tubefeed rate to goal Endocrine: DM at home on lantus and 70/30 insulin. BS here 136-200. -if repeat bs >200, calculate lantus dose and start -cont ssi -hypoglycemia protocol PPX: pt was refusing heparin subcutaneous and after discussion with pts sister and nephew in room, pt agreed to take heparin and scds Disp: DNAR/DNI. Pt will need acute rehab at discharge. Pts niece and children have been living with him the past 2 years. He is a . -start discharge form -consult director of social services for placement when pt is stable -Pts Nephew Donta gets all medical updates [phone] Coto. Code Status: Code StatusDNAR with Added Limitations Comorbidities: Comorbidity: anemia Anemia: anemia of chronic disease Signature/Cosignature/Attestation: Critical Care PatientI have reviewed and evaluated the most recent data and results, personally examined the patient, and formulated the plan of care as presented above. This patient was critically ill and required continued critical care treatment. Teaching and any separately billable procedures are not included in the time calculation. Billing Provider Critical Care Time45 minute(s) Primary Critical Care Issue/Treatment (See Assessment and Plan for greater detail)-- This patient has significantly altered mental status (delirium, encephalopathy, coma, or anoxic brain damage). We are treating with appropriate medications, hemodynamic support, ventilatory and/or oxygenating support, as indicated, as well as doing intensive diagnostic evaluation and neurological monitoring. Please see assessment and plan above for greater detail.; -- This patient has impending or acute respiratory failure. We are treating with appropriate medications, ventilatory and/or oxygenating support, as indicated, as well as intensive monitoring. Please see assessment and plan above for greater detail. Electronic Signatures: Danielle Corral ([employer] OPERATOR-GROUP MANAGER) (Signed 26-Feb-2018 14:06) Authored: Service, Subjective Data, Objective Data, Assessment and Plan, Signature/Cosignature/Attestation Last Updated: 26-Feb-2018 14:06 by Danielle Corral ([employer] OPERATOR-GROUP MANAGER) DAILY PROGRESS Observed: 02/26/2018 Status: COMPLETED Source: [facility] NOTE-NEUROSURGERY 9:59 AM [facility]OSPITALS REPOSITORY Service: Neurosurgery Subjective Data: DIPESH BERMUDEZ is a 67 year old Male who is Hospital Day # 17 and POD #15 for left retrosigmoid craniotomy for tumor resection. Objective Data: Objective Information: ---- Intake and Output ----- Mn/Dy/Year TimeIntakeOutputNet Feb 26, 2018 6:00 [id number] Feb 25, 2018 10:00 [id number] Feb 25, 2018 2:00 [phone] The Intake and Output Totals for the last 24 hours are: IntakeOutputNet [id number] Physical Exam: Neurological: EOSp, PERRL, AOx3 FCx4 Assessment and Plan: Assessment: 67M with a h/o HTN, DM, prev L crani for meningioma p/w worsening gait and diplopia, interval inc in residual L petroclival meningioma 02/10 s/p angio with no target for embo. vMRI done. Patient doing remarkably well this morning (see neurological exam). 02/11 s/p L crani for tumor resection. 02/12 MRI POC 02/13 Code White 10/4 code white, concern for aspiration, transferred to NSU for increased O2 requirement. CTH/CT chest stable 02/24 s/p LP OP 15 CSF R89K, W346, Pro 484, Glu 64; ABG stable Plan - please page nsg with questions Electronic Signatures: Augustine Cardoza) (Signed 28-Feb-2018 17:45) Authored: Signature/Cosignature/Attestation Co-Signer: Service, Subjective Data, Objective Data, Assessment and Plan Reginald Rubi (Resident)) (Signed 26-Feb-2018 10:02) Authored: Service, Subjective Data, Objective Data, Assessment and Plan Last Updated: 28-Feb-2018 17:45 by Augustine Cardoza) URINALYSIS Collected: 02/26/2018 Status: F Source: [facility] 8:35 AM HOSPITALS REPOSITORY TYPE CODE TESTS RESULT OUT OF RANGE REFERENCE UNITS LAB COLU(LOIN STRAW,YELLOW C) COLOR YELLOW LAB APPRU(SHAKEEL CLEAR NC) APPEARANCE CLEAR LAB SPGRU(SHAKEEL 1.005 - 1.035 NC) SPECIFIC GRAVITY 1.020 LAB CAMMY(LOINC 5.0 - 8.0 ) pH 5.0 LAB PROTU(SHAKEEL NEGATIVE mg/dL NC) PROTEIN Abnormal 100 (2+) LAB GLUCU(SHAKEEL NEGATIVE mg/dL NC) GLUCOSE Abnormal 50 (TRACE) LAB BLDU(LOIN NEGATIVE C) BLOOD Abnormal MODERATE (2+) LAB KETU(LOIN NEGATIVE mg/dL C) KETONES Abnormal 5 (TRACE) LAB BILIU(SHAKEEL NEGATIVE NC) BILIRUBIN NEGATIVE LAB UROU2(SHAKEEL 0.0 - 1.9 mg/dL NC) High UROBILINOGEN 4.0 Result Comment: SOME PIGMENTS AND MEDICATIONS MAY CAUSE A FALSE POSITIVE UROBILINOGEN LAB NITRU(LOINC) NEGATIVE NITRITE NEGATIVE LAB LEUKU(LOINC) NEGATIVE LEUKOCYTE NEGATIVE ESTERASE Performed By: #### UA #### [facility] [address] [place] [address] UA MICROSCOPIC Collected: 02/26/2018 Status: F Source: [facility] [address] [place] [address] REPOSITORY TYPE CODE TESTS RESULT OUT OF RANGE REFERENCE UNITS LAB WBCUR(LOIN 0-5 /HPF C) WBC 3 LAB RBCUR(LOIN 0-5 /HPF C) Abnormal RBC 6 LAB EPSQE(LOIN /HPF C) SQUAMOUS <1 EPITH. CELLS LAB BACUR(LOIN /HPF C) Abnormal BACTERIA 1+ LAB MUCOU(LOIN /LPF C) MUCUS 1+ Performed By: #### UAMIC #### [facility] [address] [place] [address] URINE Observed: 02/26/2018 Status: F Source: [facility] CULTURE,BACTERIAL 8:35 [facility] REPOSITORY PATIENT: DIPESH BERMUDEZ LOCATION: [facility] BILL#: [id number] : 54 AGE: SEX: M ORDERED BY: DANIELLE CORRAL SOURCE: URINE COLLECTED: 02/26/18 08:35 ANTIBIOTICS AT [facility].: RECEIVED : 02/26/18 11:29 SITE: [facility] S URINE CULTURE,BACTERIAL FINAL 02/27/18 09:51 NO GROWTH Performed By: #### URINC #### [facility] [address] [place] [address] CBC Collected: 02/26/2018 Status: F Source: [facility] 3:58 [facility] REPOSITORY TYPE CODE TESTS RESULT OUT OF REFERENCE UNITS RANGE LAB WBCR(LOINC 4.4 - 11.3 x10E9/L ) WBC High 26.0 LAB NRBC(LOINC 0.0-0.0 /100 WBC ) NUCLEATED RBC 0.0 LAB RBCCT(LOIN 4.50 - 5.90 x10E12/L C) RBC 4.57 LAB HGB(LOINC) 13.5 - 17.5 g/dL Low HGB 12.9 LAB HCT(LOINC) 41.0 - 52.0 % Low HCT 38.4 LAB MCV(LOINC) 80 - 100 fL MCV 84 LAB MCHC2(LOIN 32.0 - 36.0 g/dL C) MCHC 33.6 LAB PLTCT(LOIN 150 - 450 x10E9/L C) PLT 336 LAB RDWCV(LOIN 11.5 - 14.5 % C) High RDW-CV 14.7 Performed By: #### CBC #### [facility] [address] [place] [address] AMMONIA Collected: 02/26/2018 Status: F Source: [facility] [address] [place] [address] REPOSITORY TYPE CODE TESTS RESULT OUT OF RANGE REFERENCE UNITS LAB AMM(LOINC) umol/L Abnormal AMMONIA 55 Result Comment: . REFERENCE VALUES DAY 1 to DAY 7 <110 DAY 8 to DAY 14 < 90 DAY 15 to ADULT 16-53 Performed By: #### AMM #### [facility] [address] [place] [address] RENAL FUNCTION PANEL Collected: 02/26/2018 Status: F Source: [facility] [address] [place] [address] REPOSITORY TYPE CODE TESTS RESULT OUT OF REFERENCE UNITS RANGE LAB GLU(LOINC) 74 - 99 mg/dL GLUCOSE High 167 LAB SOD(LOINC) 136 - 145 mmol/L SODIUM 139 LAB K(LOINC) 3.5 - 5.3 mmol/L POTASSIUM 4.7 LAB CHLOR(LOIN 98 - 107 mmol/L C) CHLORIDE 103 LAB BIC(LOINC) 21 - 32 mmol/L BICARBONATE 25 LAB ANGAP(LOIN 10 - 20 mmol/L C) ANION GAP 16 LAB UREA(LOINC 6 - 23 mg/dL ) UREA High NITROGEN 48 LAB CREA(LOINC 0.50 - 1.30 mg/dL ) CREATININE 1.15 LAB GFRFN(LOIN >60 mL/min/1.7 C) 3m2 GFR-NON AM. >60 LAB GFRAA(LOIN >60 mL/min/1.7 C) 3m2 GFR- AM. >60 Result Comment: CALCULATIONS OF ESTIMATED GFR ARE PERFORMED USING THE MDRD STUDY EQUATION FOR THE IDMS-TRACEABLE CREATININE METHODS. CLIN CHEM 2007;53:766-72 LAB CA(LOINC) 8.6 - 10.6 mg/dL CALCIUM 9.7 LAB PHOS(LOINC) 2.5 - 4.9 mg/dL PHOSPHORUS Low 2.3 Result Comment: The performance characteristics of phosphorus testing in heparinized plasma have been validated by the individual laboratory site where testing is performed. Testing on heparinized plasma is not approved by the FDA; however, such approval is not necessary. LAB ALB(LOINC) 3.4 - 5.0 g/dL Low ALBUMIN 2.4 Performed By: #### RENAL #### [facility] [address] [place] [address] DAILY PROGRESS Observed: 02/26/2018 Status: COMPLETED Source: [facility] 2:42 AM HOSPITALS REPOSITORY Service: Neurosurgery Subjective Data: DIPESH BERMUDEZ is a 67 year old Male who is Hospital Day # 17 and POD #15 for left retrosigmoid craniotomy for tumor resection. 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 vMRI done. Patient doing remarkably well this morning (see neurological exam). 02/11 s/p L crani for tumor resection. 02/12 MRI POC 02/13 Code White 10/ code white, concern for aspiration, transferred to NSU for increased O2 requirement. CTH/CT chest stable 02/24 s/p LP OP 15 CSF R89K, W346, Pro 484, Glu 64; ABG stable Plan - f/u ammonia - please page nsg with questions Signature/Cosignature/Attestation: Attending AttestationI reviewed the resident/fellows documentation and discussed the patient with the resident/fellow. I agree with the resident/fellows medical decision making as documented in the residents note. Electronic Signatures: Jaiden Cyr) (Signed 28-Feb-2018 09:09) Authored: Signature/Cosignature/Attestation Co-Signer: Service, Subjective Data, Objective Data, Assessment and Plan, Signature/Cosignature/Attestation Troy Abraham (Resident)) (Signed 26-Feb-2018 02:44) Authored: Service, Subjective Data, Objective Data, Assessment and Plan, Signature/Cosignature/Attestation Last Updated: 28-Feb-2018 09:09 by Jaiden Cyr) GLUCOSE-POCT Collected: 02/25/2018 Status: F Source: [facility] 11:37 PM HOSPITALS REPOSITORY TYPE CODE TESTS RESULT OUT OF RANGE REFERENCE UNITS LAB GLUP(LOINC) 74 - 99 mg/dL High 150 GLUCOSE-POCT Performed By: #### GLUPO #### [facility] [address] [place] [address] EMR ADDON Collected: 02/25/2018 Status: F Source: [facility] 10:23 PM HOSPITALS REPOSITORY TYPE CODE TESTS RESULT OUT OF REFERENCE UNITS RANGE LAB EMRAC(LOIN C) ADDON CONFIRMATION REQUEST REC'D Performed By: #### EMRAD #### NO LOCATION NEEDED CLINICAL INTERVENTION - Observed: 02/25/2018 Status: UNK Source: [facility] 7:56 PM HOSPITALS REPOSITORY Pharmacist's Clinical Intervention: Active and Pending Medications: Vancomycin 1 gram IVPB/ Premixed Soln 200 mL, Every 24 Hours Recommended Infusion Time: 1 hour(s), 25-Feb-2018, Discontinued Vancomycin 1 gram IVPB/ Premixed Soln 200 mL, Every 12 Hours Recommended Infusion Time: 1 hour(s), 25-Feb-2018, Active Reason for pharmacist's clinical intervention: Dosage change Dosage change: Dosage choice Pharmacist intervention: Contacted physician Type of recommendation: Alternative dose Expected outcome and basis: Enhance therapeutic effect/increase quality, recommended higher dose of vanco 1 gram q12h with trough with 4th dose. Electronic Signatures: Allan Etienne () (Signed 25-Feb-2018 19:57) Authored: Pharmacist's Clinical Intervention Last Updated: 25-Feb-2018 19:57 by Allan Etienne () TH CHEST 1 VIEW Observed: 02/25/2018 Status: F Source: [facility] 6:30 PM HOSPITALS REPOSITORY Patient Name: DIPESH BERMUDEZ STUDY: TH CHEST 1 VIEW; 02/25/2018 6:30 pm INDICATION: Signs/Symptoms: Oxygenation saturation not improving. COMPARISON: 02/24/2018 ACCESSION NUMBER(S): [id number] ORDERING CLINICIAN: LORE LI FINDINGS: CARDIOMEDIASTINAL SILHOUETTE: The cardiomediastinal silhouette is obscured limiting evaluation. Atherosclerotic calcifications of the aortic arch. LUNGS: No significant change in the left mid to lower lung zone opacification with a component of volume loss of the left lung. There is no pneumothorax. The right lung is clear. ABDOMEN: No remarkable upper abdominal findings. BONES: No acute osseous changes. The osseous structures are unchanged from the prior exam. IMPRESSION: 1. Redemonstration of left basilar opacity concerning for consolidation/pneumonia (possibly aspiration induced). Left-sided pleural effusion cannot be excluded. I personally reviewed the images/study and I agree with the findings as stated. This study was interpreted at [facility], [place], [place]. Electronically signed by: LASHAE CASTAÑEDA MD GLUCOSE-POCT Collected: 02/25/2018 Status: F Source: [facility] 3:57 PM HOSPITALS REPOSITORY TYPE CODE TESTS RESULT OUT OF RANGE REFERENCE UNITS LAB GLUP(LOINC) 74 - 99 mg/dL High 136 GLUCOSE-POCT Performed By: #### GLUPO #### [facility] [address] [place] [address] EMR ADDON Collected: 02/25/2018 Status: F Source: [facility] 12:59 PM [facility]OSPITALS REPOSITORY TYPE CODE TESTS RESULT OUT OF REFERENCE UNITS RANGE LAB EMRAC(ABEBE C) ADDON CONFIRMATION REQUEST REC'D Performed By: #### EMRAD #### NO LOCATION NEEDED DAILY PROGRESS NOTE Observed: 02/25/2018 Status: COMPLETED Source: [facility] - CRITICAL CARE 12:58 PM HOSPITALS REPOSITORY Subjective Data: ID Statement: DIPESH BERMUDEZ is a 67 year old Male who is Hospital Day # 16 and ICU Day #5 and POD #14 for left retrosigmoid craniotomy for tumor resection. Mr. Bermudez is more awake and alert this morning. Though he does not respond to commands, he did say no when asked if he was in any pain. Neurosurgery performed a LP on patient overnight. They spoke to Donta and have been updating him. Objective Data: Objective Information T PRBPSpO2 [id number]/7491% Date/Time02/25 12:121 12: 12: 12:001 12:00 Range(35.2C - 37C ) (84 - 103 ) (16 - 36 ) (106 - 170 )/ (57 - 89 ) (85% - 99% ) As of 25-Feb-2018 12:00:00, patient is on 50 L/min of oxygen via high-flow nasal cannula; Airvo. Highest temp of 37 C was recorded at 02/24 16:00 ---- Intake and Output ----- Mn/Dy/Year TimeIntakeOutunm [facility] centerNet Feb 25, 2018 6:00 [id number] Feb 24, 2018 10:00 [id number] Feb 24, 2018 2:00 [id number] The Intake and Output Totals for the last 24 hours are: [facility] [id number] Weights 02/25 4:00: Weight in kg (Weight (kg)) 88.6 02/25 4:00: Weight in lbs ((lbs)) 195.3 Physical Exam: Physical Exam: Neurological: Right facial droop; dysarthria. Unable to perform neuro exam as patient unable to respond to commands; more alert and awake than yesterday Cardiovascular: RRR, no m/r/g appreciated Respiratory/Thorax: Absent lung sounds in left lung, crackles in lower right lung base Gastrointestinal: Soft, non-tender, non-distended, BS+ Constitutional: Sitting upright in bed with mouth open, NAD, awake, opening eyes and smiles Eyes: PERRL Extremities: No clubbing, cyanosis, or edema Allergies: Allergies: Codeine Sulfate: Unknown penicillin: Unknown insulin: Unknown Intolerances: Aspir 81: GI Upset Medications: Medications: Continuous Medications 1. Sodium Chloride 0.9% Infusion: 1000 mL IntraVenous <Continuous> Scheduled Medications 1. Albuterol 2.5 mg/ 3 mL Nebulizer Soln: 3 mL Inhalation Every 6 Hours 2. Atorvastatin: 40 mg Oral Daily 3. Budesonide 0.25 mg/ 2 mL Nebulizer Soln: 2 mL Inhalation Every 12 Hours 4. Docusate Oral Liquid: 100 mg Oral 2 Times a Day 5. Esomeprazole Oral Packet: 40 mg NasoGastric Tube Daily 6. Formoterol 20 microgram/ 2 mL Neb Soln: 2 mL Inhalation Every 12 Hours 7. guaiFENesin Oral Liquid: 400 mg Oral Every 6 Hours 8. Heparin SubCutaneous: 5000 unit(s) SubCutaneous Every 8 Hours 9. Insulin Lispro Moderate Corrective Scale: unit(s) SubCutaneous Every 4 Hours 10. Meropenem IV Piggy Back: 1 gram(s) IntraVenous Piggyback Every 8 Hours 11. Nicotine 14 mg/ 24 hour TransDermal: 1 patch TransDermal Every 24 Hours 12. Sennosides: 2 tablet(s) Oral Daily 13. Silodosin (NON - Formulary): 8 mg NasoGastric Tube Daily 14. Sodium Chloride 0.9% Injectable Flush: 10 mL IntraVenous Flush Every 12 Hours 15. Valproic Acid (Depakene) Oral Liquid: 250 mg PEG Tube Every 12 Hours PRN Medications 1. Acetaminophen: 650 mg Oral Every 6 Hours 2. Albuterol 2.5 mg/ 3 mL Nebulizer Soln: 3 mL Inhalation Every 2 Hours 3. Bisacodyl Rectal: 10 mg Rectal Daily 4. Dextrose 50% in Water Injectable: 25 gram(s) IntraVenous Push Every 15 Minutes 5. Fleet Adult (Sodium Phosphate) Rectal: 1 enema Rectal Daily 6. Glucagon Injectable: 1 mg IntraMuscular Every 15 Minutes 7. Heparin Flush 10 unit/ mL PF Injectable PRN: 5 mL IntraVenous Flush According to Flush Policy 8. hydrALAZINE Injectable: 10 mg IntraVenous Push Every 6 Hours 9. Lidocaine 1% Injectable (PICC KIT): 1 mL IntraDermal Once 10. Ondansetron Injectable: 4 mg IntraVenous Push Every 6 Hours 11. oxyCODONE Immediate Release: 5 mg Oral Every 4 Hours 12. oxyCODONE Immediate Release: 10 mg Oral Every 4 Hours 13. Polyethylene Glycol: 17 gram(s) Oral Daily Currently Suspended Medications 1. amLODIPine: 10 mg Oral Daily 2. hydroCHLOROthiazide: 25 mg Oral Daily 3. Lisinopril: 30 mg Oral Daily Recent Lab Results: Results: CBC: 02/25/2018 01:49 \ Hgb / \ 12.7 L / WBC Plt 26.7 H 308 / Hct \ / 38.7 L \ RBC: 4.63 MCV: 84 RFP: 02/25/2018 01:49 NA+ Cl- BUN / 135 L 100 53 H / Glucose 167 H K+ HCO3- Creat \ 4.7 25 1.18 \ Calcium : 9.6Anion Gap : 15 Albumin : 2.5 L Phos : 2.8 Coagulation: 02/25/2018 01:50 PT / 15.2 H / -------< INR < 1.4 H PTT\ 30 \ Results: No new imaging. Assessment and Plan: Daily Risk Screen: Does patient have a central lineno Does patient have an indwelling urinary catheteryes Plan for indwelling urinary catheter removal todayno The patient continues to require indwelling urinary catheterization for critically ill patients who need accurate urinary output measurements Is the patient intubatedno Neurology: Diagnosis: Assessment: Mr. Bermudez is a 67 year old man with a PMH of HTN, DM, COPD, tobacco abuse, CYNTHIA, meningioma s/p resection 02/11 with post-op dysphagia and dysarthria who presented with hypoxic respiratory failure and is now requiring HF NC at 60 LPM with 71% FiO2 (10 AM). Most likely etiology of patient's presentation is worsening aspiration pneumonitis with lung collapse. Patient still has elevated WBC and his more recent procalcitonin was elevated (0.24). Abx coverage was broadened yesterday. Delirium w/u completed and overall unremarkable. DDx for AMS still includes delirum, recovery from surgery, stroke, and infection. Neurosurgery performed an LP on patient yesterday to evaluate for elevated opening pressure. Patient was more responsive after LP. Patient's O2 requirements have improved since yesterday--HDS on HF NC on 50 LPM and 63% FiO2. 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 - Patient's trazodone and risperidone have been suspended - Rule out delirium as cause of patient's AMS TSH wnl, B12 elevated, folate slightly low, ammonia elevated, most probably a side effect from valproic acid - Neurosurgery did LP on 02/24 LP to r/o elevated opening pressure If patient's opening pressure was elevated, that would indicate concerns for hydrocephalus Patient's tap was traumatic, with 85,000 RBC and xanthochromia--NS not concerned Fungal smear negative, viral PCR sent #Pulm: - Hypoxic, hypercapnic respiratory failure likely 2/2 to aspiration pneumonitis but could also be a COPD exacerbation - Patient on albuterol q4h as needed - Continue Pulmicort BID - Continue Formoterol BID - Aggressive RT physiotherapy, IPV Wean off FiO2 as tolerated Patient now on 50 LMP at 63% FiO2--oxygen requirement has decreased - Blood cultures negative to date - Procalcitonin (0.24 and 0.19) - Sputum cultures unremarkable - Antibiotic management: Discontinued vancomycin 02/22 Discontinue azithromycin 02/23 Discontinue flagyl 02/23 Discontinue cefepime Start meropenum--patient's WBC remains elevated and procalcitonin is also higher; meropenum will broaden coverage, and pt may be resistant to cefepime #Cardiovascular - HTN Patient takes amlodipine, HCTZ, and lisinopril These have been discontinued as patient's pressures were soft - DLD Atorvastatin 40 mg daily #GI - 02/16 MBS showed patient should be NPO - 02/21 PEG tube was placed - GI unable to place J tube extension today, but will put patient on schedule for Wednesday--they feel J tube extension may not help risk of aspiration Patient could have aspirated from oral secretions or prior tube feeds Patient has been NPO for four days and we will start trickle tube feeds at a very low rate of 10 ml/hr so patient receives some nutrition Will continue to evaluate patient closely--we have a very low threshold to stop TF #Heme - No active issues #ID - Possible aspiration pneumonitis - See pulm part of plan for infection management via abx #Endocrine - Insulin moderate lispro sliding scale - Lantus 20 units at PM held as patient NPO F - Maintenance NS 75cc/hr E - Replete as needed N - TF through PEG tube PPx - Heparin subcutaneous Code status: DNR/DNI (Confirmed on family meeting 02/17) Code Status: Code StatusDNAR Signature/Cosignature/Attestation: Attending AttestationI saw and evaluated the patient. I personally obtained the gonzalez and critical portions of the history and physical exam or was physically present for gonzalez and critical portions performed by the resident/fellow. I reviewed the resident/fellows documentation and discussed the patient with the resident/fellow. I agree with the resident/fellows medical decision making as documented in the residents note. I personally evaluated the patient (as noted in the above attestation) on 25-Feb-2018 Critical Care PatientI have reviewed and evaluated the most recent data and results, personally examined the patient, and formulated the plan of care as presented above. This patient was critically ill and required continued critical care treatment. Teaching and any separately billable procedures are not included in the time calculation. Billing Provider Critical Care Time40 minute(s) Primary Critical Care Issue/Treatment (See Assessment and Plan for greater detail)-- This patient has impending or acute respiratory failure. We are treating with appropriate medications, ventilatory and/or oxygenating support, as indicated, as well as intensive monitoring. Please see assessment and plan above for greater detail.; -- This patient has significantly altered mental status (delirium, encephalopathy, coma, or anoxic brain damage). We are treating with appropriate medications, hemodynamic support, ventilatory and/or oxygenating support, as indicated, as well as doing intensive diagnostic evaluation and neurological monitoring. Please see assessment and plan above for greater detail. Electronic Signatures: Lore Li (Resident)) (Signed 25-Feb-2018 14:24) Authored: Subjective Data, Objective Data, Assessment and Plan, Signature/Cosignature/Attestation Antoinette Pino) (Signed 26-Feb-2018 00:24) Authored: Assessment and Plan, Signature/Cosignature/Attestation Co-Signer: Subjective Data, Objective Data, Assessment and Plan, Signature/Cosignature/Attestation Last Updated: 26-Feb-2018 00:24 by Antoinette Pino) GLUCOSE-POCT Collected: 02/25/2018 Status: F Source: [facility] 12:11 PM HOSPITALS REPOSITORY TYPE CODE TESTS RESULT OUT OF RANGE REFERENCE UNITS LAB GLUP(LOINC) 74 - 99 mg/dL High 166 GLUCOSE-POCT Performed By: #### GLUPO #### [facility] [address] [place] [address] DAILY PROGRESS Observed: Status: COMPLETED Source: [facility] NOTE-GASTROENTEROLOGY 02/25/2018 8:54 AM HOSPITALS REPOSITORY Service: Gastroenterology Subjective Data: DIPESH BERMUDEZ is a 67 year old Male who is Hospital Day # 16 and POD #14 for left retrosigmoid craniotomy for tumor resection. Additional Information: 67 year old man with HTN, DM, COPD, tobacco abuse, CYNTHIA, hypoxic episodes ( aspiration pneumonitis) with previous meningioma resection presented to [facility] because he is found to have enlargement of the residual mass with worsening diplopia and unsteady gait. He then underwent left retrosigmoid craniotomy for tumor resection on 02/11/18. On 02/16 patient was complaining of dysphagia. MBS done and per speech note: given trials of thin, nectar and honey thick liquids. presents with significantly impaired bolus formation/control, resulting in premature spillage into the pharynx across tested consistencies. Significantly delayed swallow onset with decreased laryngeal elevation/anterior pull and laryngeal vestibular closure resulting in SILENT ASPIRATION in moderate amounts during the swallow with thin liquids and after the swallow with nectar and honey thick liquids 2/2 pharyngeal residue. Given increased amount of pharyngeal residue with thicker viscosities, puree consistency not tested at this time. MANAGER PROCESS IMPROVEMENT recommends STRICT NPO. ENT was consulted, flex endoscopy performed showed left septal deviation, mild oropharyngeal redundant tissue, bilateral TVC movement, pooling of secretions in the valleculae and pyriforms with gross aspiration, decreased laryngeal sensation, weak pharyngeal squeeze. On 02/17: patient hypoxic transferred to NSICU, concern for aspiration. BLL PNA. 02/21 Placed PEG tube by GI: EGD showed LA Grade D esophagitis. 02/21 at 9 PM luis mason called to bedside for desaturation and increasing O2 demands. Upon luis mason arrival, BP 126/75, HR 76, O2sat 76% on 40%VM. 02/22: Altered mental status--> likely delirium 02/24 More drowsy. Delirium work up negative Nutrition consult recommended J tube extension to decrease risk of aspiration; have contacted GI to place. 02/25--> GI consulted for J-tube extension placement. Currently patient is not verbal. Follows commands. Per respiratory therapist, large volumes of secretions was suctioned today; not gastric contents. Objective Data: Objective Information: ---- Intake and Output ----- Mn/Dy/Year TimeIntakeOutputNet Feb 25, 2018 6:00 [id number] Feb 24, 2018 10:00 [id number] Feb 24, 2018 2:00 [id number] The Intake and Output Totals for the last 24 hours are: IntakeOutputNet 7680815-076 T PRBPSpO2 Value36.18559933/5994% Date/Time02/25 9: 6: 6: 6:0010/12 6:00 Range(35.2C - 37C ) (84 - 94 ) (16 - 27 ) (109 - 142 )/ (57 - 83 ) (85% - 99% ) As of 25-Feb-2018 04:00:00, patient is on 50 L/min of oxygen via Airvo. Highest temp of 37 C was recorded at 02/24 16:00 Physical Exam: Constitutional: Alert, follows commands. Not verbal. In no distress. Respiratory/Thorax: Coarse breath sounds. No wheezing. Cardiovascular: S1, S2 heard. RRR Gastrointestinal: Soft, non tender, + BS, PEG tube in th epigastric region. No erythema or tenderness. Extremities: No edema Neurological: Follows commands. alert. Skin: No rashes. Medication: Medications: Continuous Medications 1. Sodium Chloride 0.9% Infusion: 1000 mL IntraVenous <Continuous> Scheduled Medications 1. Albuterol 2.5 mg/ 3 mL Nebulizer Soln: 3 mL Inhalation Every 6 Hours 2. Atorvastatin: 40 mg Oral Daily 3. Budesonide 0.25 mg/ 2 mL Nebulizer Soln: 2 mL Inhalation Every 12 Hours 4. Docusate Oral Liquid: 100 mg Oral 2 Times a Day 5. Esomeprazole Oral Packet: 40 mg NasoGastric Tube Daily 6. Formoterol 20 microgram/ 2 mL Neb Soln: 2 mL Inhalation Every 12 Hours 7. guaiFENesin Oral Liquid: 400 mg Oral Every 6 Hours 8. Heparin SubCutaneous: 5000 unit(s) SubCutaneous Every 8 Hours 9. Insulin Lispro Moderate Corrective Scale: unit(s) SubCutaneous Every 4 Hours 10. Meropenem IV Piggy Back: 1 gram(s) IntraVenous Piggyback Every 8 Hours 11. Nicotine 14 mg/ 24 hour TransDermal: 1 patch TransDermal Every 24 Hours 12. Sennosides: 2 tablet(s) Oral Daily 13. Silodosin (NON - Formulary): 8 mg NasoGastric Tube Daily 14. Sodium Chloride 0.9% Injectable Flush: 10 mL IntraVenous Flush Every 12 Hours 15. Valproic Acid (Depakene) Oral Liquid: 250 mg PEG Tube Every 12 Hours PRN Medications 1. Acetaminophen: 650 mg Oral Every 6 Hours 2. Albuterol 2.5 mg/ 3 mL Nebulizer Soln: 3 mL Inhalation Every 2 Hours 3. Bisacodyl Rectal: 10 mg Rectal Daily 4. Dextrose 50% in Water Injectable: 25 gram(s) IntraVenous Push Every 15 Minutes 5. Fleet Adult (Sodium Phosphate) Rectal: 1 enema Rectal Daily 6. Glucagon Injectable: 1 mg IntraMuscular Every 15 Minutes 7. Heparin Flush 10 unit/ mL PF Injectable PRN: 5 mL IntraVenous Flush According to Flush Policy 8. hydrALAZINE Injectable: 10 mg IntraVenous Push Every 6 Hours 9. Lidocaine 1% Injectable (PICC KIT): 1 mL IntraDermal Once 10. Ondansetron Injectable: 4 mg IntraVenous Push Every 6 Hours 11. oxyCODONE Immediate Release: 5 mg Oral Every 4 Hours 12. oxyCODONE Immediate Release: 10 mg Oral Every 4 Hours 13. Polyethylene Glycol: 17 gram(s) Oral Daily Currently Suspended Medications 1. amLODIPine: 10 mg Oral Daily 2. hydroCHLOROthiazide: 25 mg Oral Daily 3. Lisinopril: 30 mg Oral Daily Recent Lab Results: Results: I have reviewed these laboratory results: Coagulation Screen 25-Feb-2018 01:50:00 ResultValue Prothrombin Time, Plasma 15.2 H International Normalized Ratio, Plasma 1.4 H Activated Partial Thromboplastin Time 30 Renal Function Panel Trending View [id number] 01:49:00 24-Feb-2018 04:14:00 Glucose, Kfcwl214 H 121 H NA135 L 132 L K4.7 5.0 CL100 98 Bicarbonate, Serum25 25 Anion Gap, Serum15 14 BUN53 H 53 H CREAT1.18 1.25 GFR-Non >60 58 A GFR->60 70 Calcium, Serum9.6 9.5 Phosphorus, Serum2.8 2.3 L ALB2.5 L 2.5 L Complete Blood Count Trending View [id number] 01:49:00 24-Feb-2018 04:14:00 White Blood Cell Count26.7 H 21.4 H Nucleated Erythrocyte Count0.0 0.0 Red Blood Cell Count4.63 4.52 HGB12.7 L 12.4 L HCT38.7 L 37.9 L MCV84 84 MCHC32.8 32.7 SNK042 263 RDW-CV14.5 14.4 Culture, Respiratory Lower, incl. smear 24-Feb-2018 17:00:00 ResultValue Gram Stain GRAM STAIN INDICATES SPECIMEN CONSISTS OF LOWER RESPIRATORY TRACT SECRETIONS. NO PREDOMINANT ORGANISM. Magnesium, Serum 24-Feb-2018 04:14:00 ResultValue Magnesium, Serum 2.13 Thyroid Stimulating Hormone, Serum 23-Feb-2018 15:10:00 ResultValue Thyroid Stimulating Hormone, Serum 1.03 Radiology Results: Results: Impression: There has been no significant interval change when compared the prior study dated 02/22/2018 as described above. The study was interpreted at [facility]. CT Head without Contrast [Feb 24 2018 1:00PM] Assessment and Plan: Assessment: 67 year old man with HTN, DM, COPD, tobacco abuse, CYNTHIA, hypoxic episodes ( aspiration pneumonitis) with previous meningioma resection presented to [facility] because he is found to have enlargement of the residual mass with worsening diplopia and unsteady gait. He then underwent left retrosigmoid craniotomy for tumor resection on 02/11/18. On 02/16 patient was complaining of dysphagia. MBS done and per speech note: presents with significantly impaired bolus formation/control, resulting in premature spillage into the pharynx across tested consistencies. Significantly delayed swallow onset with decreased laryngeal elevation/anterior pull and laryngeal vestibular closure resulting in SILENT ASPIRATION in moderate amounts during the swallow with thin liquids and after the swallow with nectar and honey thick liquids 2/2 pharyngeal residue. PEG tube was placed on 02/21. Patient's hospital course then got complicated by acute hypoxic hypercapnic respiratory failure 2/2 to aspiration PNA and AMS that lead to transferring him to MICU for further care. GI consulted for J-tube extension placement to try to reduce the risk of aspiration. #Dysphagia: oropharyngeal likely 2/2 to his post procedure brain stem infarct. Patient is at high risk aspiration of his oral secretions as well as TF. Can attempt placing a J-tube extension however that may or may not reduce the risk of aspiration. Moreover, due to patient's current O2 requirement (FIO2=60%), he will need to be intubated for the procedure. I did discuss that with MICU team who felt that if patient gets intubated, then it would be very difficult to extubate him following the procedure. After this discussion, it was decided that the J-tube placement can be postponed until patient's respiratory status improves. # LA grade D esophagitis was found on EGD 02/21: Please place patient on PPI BID x3 months with plan for follow up with GI clinic as an outpatient in 3 months. GI will not actively follow at this time; once respiratory status improves, and if J-tube extension still requested and patient's nephew wishes to proceed given risks, then call us back. Please call GI inpatient service with any questions. Multidisciplinary Rounding: The following staff were in attendance consulting physician and fellow. The following topics were discussed during rounds blood test results, diet, imaging/procedure results, medications and plan of care. Signature/Cosignature/Attestation: Attending AttestationI saw and evaluated the patient. I personally obtained the gonzalez and critical portions of the history and physical exam or was physically present for gonzalez and critical portions performed by the resident/fellow. I reviewed the resident/fellows documentation and discussed the patient with the resident/fellow. I agree with the resident/fellows medical decision making as documented in the resident/fellows note with the exception/addition of the following: I personally evaluated the patient (as noted in the above attestation) on 25-Feb-2018 Comments/ Additional Findings See comments above. Electronic Signatures: Osmany Cedeno) (Signed 26-Feb-2018 07:23) Authored: Subjective Data, Assessment and Plan, Multidisciplinary Rounding, Signature/Cosignature/Attestation Co-Signer: Service, Subjective Data, Objective Data, Assessment and Plan Eliana Torres (Fellow)) (Signed 25-Feb-2018 18:25) Authored: Service, Subjective Data, Objective Data, Assessment and Plan Last Updated: 26-Feb-2018 07:23 by Osmany Cedeno) GLUCOSE-POCT Collected: 02/25/2018 Status: F Source: [facility] 7:39 AM [facility]ALS REPOSITORY TYPE CODE TESTS RESULT OUT OF RANGE REFERENCE UNITS LAB GLUP(LOINC) 74 - 99 mg/dL High 157 GLUCOSE-POCT Performed By: #### GLUPO #### [facility] [address] [place] [address] GLUCOSE-POCT Collected: 02/25/2018 Status: F Source: [facility] 3:30 AM [facility]ITALS REPOSITORY TYPE CODE TESTS RESULT OUT OF RANGE REFERENCE UNITS LAB GLUP(LOINC) 74 - 99 mg/dL High 170 GLUCOSE-POCT Performed By: #### GLUPO #### [facility] [address] [place] [address] DAILY PROGRESS Observed: 02/25/2018 Status: COMPLETED Source: [facility] NOTE-NEUROSURGERY 2:51 AM [facility]OSPITALS REPOSITORY Service: Neurosurgery Subjective Data: DIPESH BERMUDEZ is a 67 year old Male who is Hospital Day # 16 and POD #14 for left retrosigmoid craniotomy for tumor resection. Objective Data: Objective Information: ---- Intake and Output ----- Mn/Dy/Year TimeIntakeOutputNet Feb 23, 2018 10:00 [id number] Feb 23, 2018 2:00 [id number] Feb 23, 2018 6:00 [id number] The Intake and Output Totals for the last 24 hours are: IntakeOutputNet [id number] T PRBPSpO2 Value35.76427690/5994% Date/Time02/25 4:001 6: 6: 6:001 6:00 Range(35.2C - 37C ) (84 - 94 ) (16 - 27 ) (109 - 142 )/ (57 - 83 ) (85% - 99% ) As of 25-Feb-2018 04:00:00, patient is on 50 L/min of oxygen via Airvo. 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 vMRI done. Patient doing remarkably well this morning (see neurological exam). 02/11 s/p L crani for tumor resection. 02/12 MRI POC 02/13 Code White 02/17 code white, concern for aspiration, transferred to NSU for increased O2 requirement. CTH/CT chest stable 02/24 s/p LP OP 15 CSF R89K, W346, Pro 484, Glu 64; ABG stable Plan - f/u ammonia - please page nsg with questions Signature/Cosignature/Attestation: Attending AttestationI reviewed the resident/fellows documentation and discussed the patient with the resident/fellow. I agree with the resident/fellows medical decision making as documented in the residents note. Electronic Signatures: Augustine Cardoza) (Signed 25-Feb-2018 08:26) Authored: Signature/Cosignature/Attestation Co-Signer: Service, Subjective Data, Objective Data, Assessment and Plan, Signature/Cosignature/Attestation Norman Daniel ( (Resident)) (Signed 25-Feb-2018 07:46) Authored: Objective Data, Assessment and Plan Troy Abraham ( (Resident)) (Signed 25-Feb-2018 02:52) Authored: Service, Subjective Data, Objective Data, Assessment and Plan, Signature/Cosignature/Attestation Last Updated: 25-Feb-2018 08:26 by Augustine Cardoza) COAGULATION SCREEN Collected: 02/25/2018 Status: F Source: [facility] 1:50 [facility] REPOSITORY TYPE CODE TESTS RESULT OUT OF REFERENCE UNITS RANGE LAB PT(LOINC) 9.8 - 12.7 sec PROTHROMBIN High TIME 15.2 LAB INR(LOINC) 0.9 - 1.1 PT, INR High 1.4 LAB APTT(LOINC 25 - 36 sec ) APTT 30 Result Comment: THE APTT IS NO LONGER USED FOR MONITORING UNFRACTIONATED HEPARIN THERAPY. FOR MONITORING HEPARIN THERAPY, USE THE HEPARIN ASSAY. Performed By: #### COAGS #### [facility] [address] [place] [address] CBC Collected: 02/25/2018 Status: F Source: [facility] 1:49 AM [facility]ITALS REPOSITORY TYPE CODE TESTS RESULT OUT OF REFERENCE UNITS RANGE LAB WBCR(LOINC 4.4 - 11.3 x10E9/L ) WBC High 26.7 LAB NRBC(LOINC 0.0-0.0 /100 WBC ) NUCLEATED RBC 0.0 LAB RBCCT(LOIN 4.50 - 5.90 x10E12/L C) RBC 4.63 LAB HGB(LOINC) 13.5 - 17.5 g/dL Low HGB 12.7 LAB HCT(LOINC) 41.0 - 52.0 % Low HCT 38.7 LAB MCV(LOINC) 80 - 100 fL MCV 84 LAB MCHC2(LOIN 32.0 - 36.0 g/dL C) MCHC 32.8 LAB PLTCT(LOIN 150 - 450 x10E9/L C) PLT 308 LAB RDWCV(LOIN 11.5 - 14.5 % C) RDW-CV 14.5 Performed By: #### CBC #### [facility] [address] [place] [address] RENAL FUNCTION PANEL Collected: 02/25/2018 Status: F Source: [facility] 1:49 AM [facility] REPOSITORY TYPE CODE TESTS RESULT OUT OF REFERENCE UNITS RANGE LAB GLU(LOINC) 74 - 99 mg/dL GLUCOSE High 167 LAB SOD(LOINC) 136 - 145 mmol/L Low SODIUM 135 LAB K(LOINC) 3.5 - 5.3 mmol/L POTASSIUM 4.7 LAB CHLOR(LOIN 98 - 107 mmol/L C) CHLORIDE 100 LAB BIC(LOINC) 21 - 32 mmol/L BICARBONATE 25 LAB ANGAP(LOIN 10 - 20 mmol/L C) ANION GAP 15 LAB UREA(LOINC 6 - 23 mg/dL ) UREA High NITROGEN 53 LAB CREA(LOINC 0.50 - 1.30 mg/dL ) CREATININE 1.18 LAB GFRFN(LOIN >60 mL/min/1.7 C) 3m2 GFR-NON AM. >60 LAB GFRAA(LOIN >60 mL/min/1.7 C) 3m2 GFR- AM. >60 Result Comment: CALCULATIONS OF ESTIMATED GFR ARE PERFORMED USING THE MDRD STUDY EQUATION FOR THE IDMS-TRACEABLE CREATININE METHODS. CLIN CHEM 2007;53:766-72 LAB CA(LOINC) 8.6 - 10.6 mg/dL CALCIUM 9.6 LAB PHOS(LOINC) 2.5 - 4.9 mg/dL PHOSPHORUS 2.8 Result Comment: The performance characteristics of phosphorus testing in heparinized plasma have been validated by the individual laboratory site where testing is performed. Testing on heparinized plasma is not approved by the FDA; however, such approval is not necessary. LAB ALB(LOINC) 3.4 - 5.0 g/dL Low ALBUMIN 2.5 Performed By: #### RENAL #### [facility] [address] [place] [address] POST PROCEDURE NOTE - Observed: 02/24/2018 Status: COMPLETED Source: [facility] NOT IN OR-LUMBAR 11:13 PM HOSPITALS REPOSITORY PUNCTURE Pre-procedure Verification and Time Out: Procedure location: bedside Pre-procedure verification - Bedside: Pre-procedure verification completed - includes patient identity, site/laterality, procedure, and consent Pre-procedure verification date - Bedside: 24-Feb-2018 Pre-procedure verification time - Bedside: 10:22 Time-Out - Final Verification: Time Out completed - Final verification includes patient identity, site/laterality, and procedure verified by entire procedure team Time-Out - Final Verification Date: 24-Feb-2018 Time-Out - Final Verification Time: 23:22 General Information: Date/Time of Procedure: 24-Feb-2018 23:22 Post-Procedure Diagnosis: none Procedure Name: Lumbar puncture Findings: grossly normal anatomy Procedure performed by: id Soil And Plant Scientist(s): none Estimated Blood Loss (mL): none Specimen: yes Informed Consent: written consent obtained Procedure Details: Procedure Details: PROCEDURE: Lumbar Puncture. PROCEDURE SUMMARY: A time-out was performed. The patient was placed in the LEFT lateral decubitus position in a semi- position with help from the nursing staff. The area was cleansed and draped in usual sterile fashion. Anesthesia was achieved with 1% lidocaine. A 20-gauge 3.5-inch spinal needle was placed in the L4-L5 interspace. Clear cerebral spinal fluid was obtained. Four tubes were filled with 4 mL of CSF. These were sent for the usual tests. The patient had no immediate complications and tolerated the procedure well. Opening pressure 15. Tolerance: good Signature/Cosignature/Attestation: Attending AttestationI was not present for the procedure Electronic Signatures: Augustine Cardoza) (Signed 25-Feb-2018 08:26) Authored: Signature/Cosignature/Attestation Co-Signer: Pre-procedure Verification and Time Out, General Information, Signature/Cosignature/Attestation Norman Daniel (Resident)) (Signed 24-Feb-2018 23:29) Authored: Pre-procedure Verification and Time Out, General Information, Procedure Details, Signature/Cosignature/Attestation Last Updated: 25-Feb-2018 08:26 by Augustine Cardoza) GLUCOSE-POCT Collected: 02/24/2018 Status: F Source: [facility] 11:12 PM [facility]ITALS REPOSITORY TYPE CODE TESTS RESULT OUT OF RANGE REFERENCE UNITS LAB GLUP(LOINC) 74 - 99 mg/dL High 157 GLUCOSE-POCT Performed By: #### GLUPO #### [facility] [address] [place] [address] TOTAL PROTEIN AND Collected: 02/24/2018 Status: F Source: [facility] GLUCOSE, CSF 11:02 PM [facility]OSPITALS REPOSITORY TYPE CODE TESTS RESULT OUT OF RANGE REFERENCE UNITS LAB TPCSF(LOINC 15 - 45 mg/dL ) High TOTAL 484 PROTEIN,CSF LAB GLUCS(LOINC 40 - 70 mg/dL ) 64 GLUCOSE,CSF Performed By: #### TPGLU #### [facility] [address] [place] [address] CELL COUNT AND Collected: 02/24/2018 Status: F Source: [facility] DIFF, CSF 11:02 PM [facility]ITALS REPOSITORY TYPE CODE TESTS RESULT OUT OF REFERENCE UNITS RANGE LAB COLCS(SHAKEEL COLORLESS NC) COLOR Red LAB CLACS(SHAKEEL CLEAR NC) CLARITY Turbid LAB TUBE#(SHAKEEL NC) TUBE # Tube 1 LAB WBCS2(SHAKEEL 0 - 5 /uL NC) WBC 346 High COUNT LAB RBCS2(SHAKEEL 0 - 5 /uL NC) RBC [id number] High COUNT LAB SUPCS(SHAKEEL COLORLESS NC) Xanthochromic SUPERNATANT LAB COMCS(SHAKEEL NC) CSF SEE BELOW COMMENT Result Comment: Cell count and differential may be inaccurate due to particulate matter and/or clots. LAB CSNE%(LOINC) % NEUTROPHILS 84 LAB CSLY%(LOINC) % LYMPHOCYTES 7 LAB CSMO%(LOINC) % MONONUCLEAR CELLS 9 LAB LIMCS(LOINC) CELLS COUNTED 100 Performed By: #### CSFC2 #### [facility] [address] [place] [address] MISCELLANEOUS Collected: 02/24/2018 Status: F Source: [facility] TEST-SOARIAN 11:02 [facility] REPOSITORY TYPE CODE TESTS RESULT OUT OF REFERENCE UNITS RANGE LAB MISCT(SHAKEEL NC) NAME OF SEND VIRAL OUT TEST MENINGITIS PANEL BY PCR LAB MIS(LOIN C) MISCELLANEOUS SEE BELOW Result Comment: VIRAL MENINGITIS PANEL BY PCR CSF Enterovirus by PCR Not Detected NOT DETECTED - A negative result does not rule out the presence of PCR inhibitors in the patient specimen or assay specific nucleic acid in concentrations below the level of detection by the assay. INTERPRETIVE INFORMATION: Enterovirus by PCR Test developed and characteristics determined by [employer]. See Compliance Statement A: [employer] Herpes Simplex Virus by PCR Not Detected NOT DETECTED - A negative result does not rule out the presence of PCR inhibitors in the patient specimen or assay specific nucleic acid in concentrations below the level of detection by the assay. INTERPRETIVE INFORMATION: Herpes Simplex Virus by PCR Test developed and characteristics determined by [employer]. See Compliance Statement B: Parechovirus by PCR Not Detected NOT DETECTED - A negative result does not rule out the presence of PCR inhibitors in the patient specimen or assay specific nucleic acid in concentrations below the level of detection by the assay. INTERPRETIVE INFORMATION: Parechovirus by PCR Test developed and characteristics determined by [employer]. See Compliance statement REFERRED TO [facility] [address] [facility] [address] Performed By: #### MISCS #### GENERAL SENDOUT CSF Observed: 02/24/2018 Status: F Source: [facility]ITY CULTURE/SM., BACTERIAL 11: [facility] REPOSITORY PATIENT: DIPESH BERMUDEZ LOCATION: [facility]#: [id number] : 54 AGE: SEX: M ORDERED BY: NORMAN DANIEL SOURCE: CSF COLLECTED: 02/24/18 23:02 ANTIBIOTICS AT [facility].: RECEIVED : 02/25/18 03:19 SITE: lumbar puncture VENTRICULAR R E S U L T S GRAM STAIN FINAL 02/25/18 06:25 4+ GRANULOCYTES, NO ORGANISM SEEN CSF CULTURE/SM., BACTERIAL FINAL 03/03/18 08:40 NO GROWTH Performed By: #### CSF #### [facility] [address] [place] [address] Observed: 02/24/2018 Status: F Source: [facility] FUNGAL CULTURE/SM, MISC 11:02 PM HOSPITALS REPOSITORY PATIENT: DIPESH BERMUDEZ LOCATION: [facility] BILL#: [id number] : 54 AGE: SEX: M ORDERED BY: NORMAN DANIEL SOURCE: CSF COLLECTED: 02/24/18 23:02 ANTIBIOTICS AT [facility].: RECEIVED : 02/25/18 02:33 SITE: R E S U L T S FUNGAL SMEAR FINAL 02/25/18 11:45 FLUORESCENT FUNGAL STAIN: NEGATIVE FUNGAL CULTURE/SM, MISC FINAL 03/14/18 12:20 NO FUNGI ISOLATED. Performed By: #### FUNCS #### [facility] [address] [place] [id number] GLUCOSE-POCT Collected: 02/24/2018 Status: F Source: [facility] 7:34 PM HOSPITALS REPOSITORY TYPE CODE TESTS RESULT OUT OF RANGE REFERENCE UNITS LAB GLUP(LOINC) 74 - 99 mg/dL High 143 GLUCOSE-POCT Performed By: #### GLUPO #### [facility] [address] [place] [id number] Observed: 02/24/2018 Status: F Source: [facility] RESPIRATORY 5:00 PM HOSPITALS REPOSITORY CULT./SM,LOWER PATIENT: DIPESH BERMUDEZ LOCATION: [facility] BILL#: [id number] : 54 AGE: SEX: M ORDERED BY: EMMANUELLE MARC SOURCE: SPUTUM COLLECTED: 02/24/18 17:00 ANTIBIOTICS AT [facility].: RECEIVED : 02/24/18 17:50 SITE: R E S U L T S GRAM STAIN FINAL 02/25/18 00:57 GRAM STAIN INDICATES SPECIMEN CONSISTS OF LOWER RESPIRATORY TRACT SECRETIONS. NO PREDOMINANT ORGANISM. RESPIRATORY CULT./SM,LOWER FINAL 02/26/18 09:25 ISOLATE1 : Staphylococcus aureus 4+ METHICILLIN(OXACILLIN)RESISTANT METHICILLIN(OXACILLIN)RESISTANT STAPHYLOCOCCI ARE RESISTANT TO ALL CURRENTLY AVAILABLE PENICILLINS, BETA-LACTAM/BETA-LACTAMASE INHIBITOR COMBINATIONS (INCLUDING AMPICILLIN/SULBACTAM, AMOXICILLIN/CLAVULANATE AND PIPERACILLIN/TAZOBACTAM),CARBAPENEMS AND CEPHALOSPORINS(EXCEPT CEFTAROLINE). Organism S aureus Antibiotic BP INTRP Ampicillin R Clindamycin S Ciprofloxacin R Erythromycin R Gentamicin S Levofloxacin R Oxacillin R Penicillin R Trimeth/Sulfa S Tetracycline S Vancomycin S S=SUSCEPTIBLE I=INTERMEDIATE R=RESISTANT SDD=SUSCEPTIBLE DOSE DEPENDENT NS=NONSUSCEPTIBLE X=REPORTED IN ERROR Performed By: #### RESPL #### [facility] [address] [place] [address] GLUCOSE-POCT Collected: 02/24/2018 Status: F Source: [facility] 3:36 PM HOSPITALS REPOSITORY TYPE CODE TESTS RESULT OUT OF RANGE REFERENCE UNITS LAB GLUP(LOINC) 74 - 99 mg/dL High 139 GLUCOSE-POCT Performed By: #### GLUPO #### [facility] [address] [facility] [facility] [place] [address] CHEST 1 VIEW Observed: 02/24/2018 Status: F Source: [facility] 2:30 PM HOSPITALS REPOSITORY Patient Name: DIPESH BERMUDEZ STUDY: CHEST 1 VIEW; 02/24/2018 2:30 pm INDICATION: Signs/Symptoms: HYPOXIA. COMPARISON: 02/23/2018 ACCESSION NUMBER(S): [id number] ORDERING CLINICIAN: EMMANUELLE MARC FINDINGS: Cannot assess cardiac silhouette size as the left heart border is obscured. There is calcification in aortic knob. Interval development of left mid and lower lung opacification. Component of volume loss in the left lung. There is also faint opacity in the right lung base. There is no sizable pneumothorax. No acute osseous abnormality. IMPRESSION: 1. Interval development of opacification of the left mid and lower lung with some volume loss. Findings are concerning for consolidation/pneumonia and correlation for aspiration. Also please correlate for component of left lower lobe collapse. 2. Cannot exclude small left pleural effusion. 3. Right basilar atelectasis. Electronically signed by: MD GERMÁN CODY CT HEAD WO Observed: 02/24/2018 Status: F Source: [facility] CONTRAST 12:29 PM HOSPITALS REPOSITORY Patient Name: DIPESH BERMUDEZ STUDY: NR CT HEAD WO CONTRAST; 02/24/2018 12:29 pm INDICATION: Signs/Symptoms: AMS, Lie Flat: Yes. COMPARISON: 02/22/2018 ACCESSION NUMBER(S): [id number] ORDERING CLINICIAN: LORE LI TECHNIQUE: Axial CT images images of the head were obtained without intravenous contrast administration. FINDINGS: Postoperative changes are again identified compatible with a left occipital craniectomy with surgical mesh overlying the craniectomy site as well as an additional left temporal craniotomy. There is again evidence of an extracranial fluid collection overlying the surgical mesh along the left occipital craniectomy site which extends caudally into the soft tissues of the upper left neck suggestive of a pseudomeningocele. There is again evidence of asymmetric prominence of the extra-axial space similar to CSF in attenuation deep to the left occipital craniectomy site and surrounding the lateral left cerebellar hemisphere. There is again evidence of asymmetric hypodensity along the left aspect of the brainstem which corresponds to abnormal diffusion restriction on the prior MRI dated 02/12/2018 and is suggestive of an evolving area of infarction. Areas of encephalomalacia are again identified along the inferior medial cerebellar hemispheres right greater than left. An additional area of encephalomalacia/gliosis is again noted along the anterior left temporal lobe. There is again evidence of a small amount of asymmetric extra-axial intermediate attenuation noted along the left aspect of the clivus and left petrous apex which may represent a small amount of residual neoplasm/meningioma. There is again evidence of moderate brain parenchymal volume loss. There are mild nonspecific white matter changes again noted within the cerebral hemispheres bilaterally. There is no midline shift. There is opacification of a few left ethmoid air cells. IMPRESSION: There has been no significant interval change when compared the prior study dated 02/22/2018 as described above. The study was interpreted at [facility]. Electronically signed by: CELIA MCPHERSON MD GLUCOSE-POCT Collected: 02/24/2018 Status: F Source: [facility] 12:09 PM HOSPITALS REPOSITORY TYPE CODE TESTS RESULT OUT OF RANGE REFERENCE UNITS LAB GLUP(LOINC) 74 - 99 mg/dL High 163 GLUCOSE-POCT Performed By: #### GLUPO #### [facility] [address] [place] [address] DAILY PROGRESS NOTE - Observed: 02/24/2018 Status: COMPLETED Source: [facility] CRITICAL CARE-MICU 9:23 AM HOSPITALS REPOSITORY Service: Critical Care Service: ServiceMICU Subjective Data: ID Statement: DIPESH BERMUDEZ is a 67 year old Male who is Hospital Day # 15 and ICU Day #4 and POD #13 for left retrosigmoid craniotomy for tumor resection. Patient appears more drowsy this morning. He is not able to follow commands as he was yesterday. Neurosurgery was paged early this morning to communicate this. Neurosurgery had evaluated patient yesterday and stated they would communicate their findings to patient's nephew Donta--they also recommended we get an ABG. If the ABG was stable, they wanted another CT head. ABG was drawn immediately and it was similar to patient's baseline. CT head was ordered to assess change from last CT head. Patient's oxygenation is not optimal at this time to send down for imaging. Patient's nephew Donta called, and Dr. Marc spoke to him in detail. He felt that both our teams were missing something. We discussed that we have done a full delirium w/u on the patient, and that we are still treating his infection. We also told him that patient is not stable enough to get an MRI, as his oxygen requirement is increasing. Spoke to neurosurgery later in the afternoon and they had already communicated their assessment to the family. 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 Neurosurgery is continuing to follow patient. Objective Data: Objective Information T PRBPSpO2 [id number]% Date/Time02/24 8: 8: 8: 8: 8:00 Range(35.9C - 37.7C ) (84 - 106 ) (15 - 27 ) (108 - 139 )/ (57 - 95 ) (85% - 99% ) As of 24-Feb-2018 08:00:00, patient is on 60 L/min of oxygen via Airvo. Highest temp of 37.7 C was recorded at 02/23 16:00 ---- Intake and Output ----- Mn/Dy/Year TimeIntakeOutunm psychiatric centerNet Feb 24, 2018 6:00 [id number] Feb 23, 2018 10:00 [id number] Feb 23, 2018 2:00 [id number] The Intake and Output Totals for the last 24 hours are: IntakeOutputNet [id number] Drain and tube details (included in I&O totals) 1525 cc Indwelling Catheter - Urethral( 24-Feb-2018 06:00:00 ) Weights 02/24 5:00: Weight in kg (Weight (kg)) 95.1 02/24 5:00: Weight in lbs ((lbs)) 209.6 Physical Exam: Physical Exam: Neurological: Right facial droop; dysarthria. Unable to perform neuro exam as patient unable to respond to commands or communicate; alert but not oriented Cardiovascular: RRR, no m/r/g appreciated Respiratory/Thorax: Absent lung sounds in left lung, crackles in lower right lung base Gastrointestinal: Soft, non-tender, non-distended, BS+ Constitutional: Sitting upright in bed with mouth open, NAD, awake, opens eyes, not tracking today Eyes: PERRL Extremities: No clubbing, cyanosis, or edema Allergies: Allergies: Codeine Sulfate: Unknown penicillin: Unknown insulin: Unknown Intolerances: Aspir 81: GI Upset Medications: Medications: Continuous Medications 1. Sodium Chloride 0.9% Infusion: 1000 mL IntraVenous <Continuous> Scheduled Medications 1. Albuterol 2.5 mg/ 3 mL Nebulizer Soln: 3 mL Inhalation Every 6 Hours 2. Atorvastatin: 40 mg Oral Daily 3. Budesonide 0.25 mg/ 2 mL Nebulizer Soln: 2 mL Inhalation Every 12 Hours 4. Docusate Oral Liquid: 100 mg Oral 2 Times a Day 5. Esomeprazole Oral Packet: 40 mg NasoGastric Tube Daily 6. Formoterol 20 microgram/ 2 mL Neb Soln: 2 mL Inhalation Every 12 Hours 7. guaiFENesin Oral Liquid: 400 mg Oral Every 6 Hours 8. Heparin SubCutaneous: 5000 unit(s) SubCutaneous Every 8 Hours 9. Insulin Lispro Moderate Corrective Scale: unit(s) SubCutaneous Every 4 Hours 10. Meropenem IV Piggy Back: 1 gram(s) IntraVenous Piggyback Every 8 Hours 11. Nicotine 14 mg/ 24 hour TransDermal: 1 patch TransDermal Every 24 Hours 12. Sennosides: 2 tablet(s) Oral Daily 13. Silodosin (NON - Formulary): 8 mg NasoGastric Tube Daily 14. Sodium Chloride 0.9% Injectable Flush: 10 mL IntraVenous Flush Every 12 Hours 15. Valproic Acid (Depakene) Oral Liquid: 250 mg PEG Tube Every 12 Hours PRN Medications 1. Acetaminophen: 650 mg Oral Every 6 Hours 2. Albuterol 2.5 mg/ 3 mL Nebulizer Soln: 3 mL Inhalation Every 2 Hours 3. Bisacodyl Rectal: 10 mg Rectal Daily 4. Dextrose 50% in Water Injectable: 25 gram(s) IntraVenous Push Every 15 Minutes 5. Fleet Adult (Sodium Phosphate) Rectal: 1 enema Rectal Daily 6. Glucagon Injectable: 1 mg IntraMuscular Every 15 Minutes 7. Heparin Flush 10 unit/ mL PF Injectable PRN: 5 mL IntraVenous Flush According to Flush Policy 8. hydrALAZINE Injectable: 10 mg IntraVenous Push Every 6 Hours 9. Lidocaine 1% Injectable (PICC KIT): 1 mL IntraDermal Once 10. Ondansetron Injectable: 4 mg IntraVenous Push Every 6 Hours 11. oxyCODONE Immediate Release: 5 mg Oral Every 4 Hours 12. oxyCODONE Immediate Release: 10 mg Oral Every 4 Hours 13. Polyethylene Glycol: 17 gram(s) Oral Daily Currently Suspended Medications 1. amLODIPine: 10 mg Oral Daily 2. hydroCHLOROthiazide: 25 mg Oral Daily 3. Lisinopril: 30 mg Oral Daily Recent Lab Results: Results: CBC: 02/24/2018 04:14 \ Hgb / \ 12.4 L / WBC Plt 21.4 H 263 / Hct \ / 37.9 L \ RBC: 4.52 MCV: 84 RFP: 02/24/2018 04:14 NA+ Cl- BUN / 132 L 98 53 H / Glucose 121 H K+ HCO3- Creat \ 5.0 25 1.25 \ Calcium : 9.5Anion Gap : 14 Albumin : 2.5 L Phos : 2.3 L Recent Arterial Blood Gas Results 02/24/2018 08:49 [id number] 24 h range: ( 60 - 66 ) pH7.48 24 h range: ( 7.48 - 7.49 ) tRB846 24 h range: ( 39 - 40 ) SO294 24 h range: ( 94 - 95 ) Base Excess5.2 24 h range: ( 5.2 - 6.6 ) Ryhiobiyznt19.0 24 h range: ( 29 - 30.5 ) Results: Impression: 1. Interval development of opacification of the left mid and lower lung with some volume loss. Findings are concerning for consolidation/pneumonia and correlation for aspiration. Also please correlate for component of left lower lobe collapse. 2. Cannot exclude small left pleural effusion. 3. Right basilar atelectasis. Xray Chest 1 View [Feb 24 2018 2:56PM] Impression: There has been no significant interval change when compared the prior study dated 02/22/2018 as described above. The study was interpreted at [facility]. CT Head without Contrast [Feb 24 2018 1:00PM] Assessment and Plan: Daily Risk Screen: Does patient have a central lineno Does patient have an indwelling urinary catheteryes Plan for indwelling urinary catheter removal todayno The patient continues to require indwelling urinary catheterization for critically ill patients who need accurate urinary output measurements Is the patient intubatedno Neurology: Diagnosis: Assessment: Mr. Bermudez is a 67 year old man with a PMH of HTN, DM, COPD, tobacco abuse, CYNTHIA, meningioma s/p resection 02/11 with post-op dysphagia and dysarthria who presented with hypoxic respiratory failure and is now requiring HF NC at 60 LPM with 71% FiO2 (02/23 AM). Most likely etiology of patient's presentation is worsening aspiration pneumonitis with lung collapse. Patient still has a WBC and his more recent procalcitonin was elevated (0.24). Broadening abx coverage. Delirium w/u completed and overall unremarkable. Touched base with neurosurgery who informed us patient had a post-surgical stroke, which could explain his AMS. Neurosurgery team communicated this to patient's family. Patient's mentation decreased from yesterday, and repeat CT head was ordered. Patient remains HDS on HF NC but we are unable to successfully wean down FiO2. 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 - Patient's trazodone and risperidone have been suspended - Rule out delirium as cause of patient's AMS TSH wnl, B12 elevated, folate slightly low, ammonia elevated, most probably a side effect from valproic acid - Communicated with family and neurosurgery today Family informed that we are also concerned and are trying to rule out all causes of AMS #Pulm: - Acute hypoxic, hypercapnic respiratory failure likely 2/2 to aspiration pneumonitis but could also be a COPD exacerbation - Patient on albuterol q4h as needed - Continue Pulmicort BID - Continue Formoterol BID - Aggressive RT physiotherapy, IPV Wean off FiO2 as tolerated Patient now on 60 LMP at 81% FiO2--oxygen requirement has increased Morning CXR ordered - Blood cultures negative to date - Procalcitonin not elevated at 0.19 Repeat procalcitonin ordered - Antibiotic management: Discontinued vancomycin 02/22 Discontinue azithromycin 02/23 Discontinue flagyl 02/23 Discontinue cefepime Start meropenum--patient's WBC remains elevated and procalcitonin is also higher; meropenum will broaden coverage, and pt may be resistant to cefepime #Cardiovascular - HTN Patient takes amlodipine, HCTZ, and lisinopril These have been discontinued as patient's pressures were soft - DLD Atorvastatin 40 mg daily #GI - 02/16 MBS showed patient should be NPO - 02/21 PEG tube was placed - Nutrition consult recommended J tube extension to decrease risk of aspiration; have contacted GI to place #Heme - No active issues #ID - Possible aspiration pneumonitis - See pulm part of plan for infection management via abx #Endocrine - Insulin moderate lispro sliding scale - Lantus 20 units at PM held as patient NPO F - Maintenance NS 75cc/hr E - Replete as needed N - NPO until J tube extension placement PPx - Heparin subcutaneous Code status: DNR/DNI (Confirmed on family meeting 02/17) Code Status: Code StatusDNAR with Added Limitations Signature/Cosignature/Attestation: Attending AttestationI saw and evaluated the patient. I personally obtained the gonzalez and critical portions of the history and physical exam or was physically present for gonzalez and critical portions performed by the resident/fellow. I reviewed the resident/fellows documentation and discussed the patient with the resident/fellow. I agree with the resident/fellows medical decision making as documented in the residents note. I personally evaluated the patient (as noted in the above attestation) on 24-Feb-2018 Critical Care PatientI have reviewed and evaluated the most recent data and results, personally examined the patient, and formulated the plan of care as presented above. This patient was critically ill and required continued critical care treatment. Teaching and any separately billable procedures are not included in the time calculation. Billing Provider Critical Care Time50 minute(s) Primary Critical Care Issue/Treatment (See Assessment and Plan for greater detail)-- This patient is believed to have sepsis. We are treating with appropriate agents (antibiotics, antifungals, and/or antivirals), fluids and/or pressors, as indicated, as well as intensive monitoring. Please see assessment and plan above for greater detail.; -- This patient has impending or acute respiratory failure. We are treating with appropriate medications, ventilatory and/or oxygenating support, as indicated, as well as intensive monitoring. Please see assessment and plan above for greater detail.; -- This patient has significantly altered mental status (delirium, encephalopathy, coma, or anoxic brain damage). We are treating with appropriate medications, hemodynamic support, ventilatory and/or oxygenating support, as indicated, as well as doing intensive diagnostic evaluation and neurological monitoring. Please see assessment and plan above for greater detail. Electronic Signatures: Lore Li (Resident)) (Signed 24-Feb-2018 16:33) Authored: Service, Subjective Data, Objective Data, Assessment and Plan, Signature/Cosignature/Attestation Antoinette Pino) (Signed 08-Mar-2018 17:45) Authored: Assessment and Plan, Signature/Cosignature/Attestation Co-Signer: Subjective Data, Objective Data, Assessment and Plan, Signature/Cosignature/Attestation Last Updated: 08-Mar-2018 17:45 by Antoinette Pino) ARTERIAL BLOOD GAS Collected: 02/24/2018 Status: F Source: [facility] 8:49 AM HOSPITALS REPOSITORY TYPE CODE TESTS RESULT OUT OF REFERENCE UNITS RANGE LAB PHART(LOIN 7.38 - 7.42 C) pH High 7.48 LAB PCO2A(LOIN 38 - 42 mmHg C) PCO2 39 LAB PO2A(LOINC 85 - 95 mmHg ) PO2 Low 60 LAB TEMP(LOINC degrees C ) PATIENT TEMPERATURE 37.0 Result Comment: NOTE: PATIENT RESULTS ARE NOT CORRECTED FOR TEMPERATURE. LAB SO2%A(LOINC) 94 - 100 % SO2 94 LAB BSEXB(LOINC) -2.0 - 3.0 mmol/L BASE High EXCESS-BLOOD 5.2 LAB BICAR(LOINC) 22.0 - mmol/L 26.0 BICARB, High CALCULATED 29.0 Performed By: #### [email or web address] #### [facility] [address] [place] [address] DAILY PROGRESS Observed: 02/24/2018 Status: COMPLETED Source: UNIVERSITY NOTE-NEUROSURGERY 7:59 AM HOSPITALS REPOSITORY Service: Neurosurgery Subjective Data: DIPESH BERMUDEZ is a 67 year old Male who is Hospital Day # 15 and POD #13 for left retrosigmoid craniotomy for tumor resection. 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 vMRI done 02/11 s/p L crani for tumor resection. 02/12 MRI POC 02/13 Code White 02/17 code white, concern for aspiration, transferred to NSU for increased O2 requirement. CTH/CT chest stable Plan -fu ABG -if ABG normal, CTH for decreased neurological exam. Signature/Cosignature/Attestation: Attending AttestationI reviewed the resident/fellows documentation and discussed the patient with the resident/fellow. I agree with the resident/fellows medical decision making as documented in the residents note. Electronic Signatures: Augustine Cardoza) (Signed 25-Feb-2018 08:26) Authored: Signature/Cosignature/Attestation Co-Signer: Service, Subjective Data, Objective Data, Assessment and Plan, Signature/Cosignature/Attestation Reginald Rubi (Resident)) (Signed 24-Feb-2018 08:04) Authored: Service, Subjective Data, Objective Data, Assessment and Plan, Signature/Cosignature/Attestation Last Updated: 25-Feb-2018 08:26 by Augustine Cardoza) GLUCOSE-POCT Collected: 02/24/2018 Status: F Source: [facility] 7:35 AM HOSPITALS REPOSITORY TYPE CODE TESTS RESULT OUT OF RANGE REFERENCE UNITS LAB GLUP(LOINC) 74 - 99 mg/dL High 128 GLUCOSE-POCT Performed By: #### GLUPO #### [facility] [address] [place] [address] CBC Collected: 02/24/2018 Status: F Source: [facility] [address] [place] [address] REPOSITORY TYPE CODE TESTS RESULT OUT OF REFERENCE UNITS RANGE LAB WBCR(LOINC 4.4 - 11.3 x10E9/L ) WBC High 21.4 LAB NRBC(LOINC 0.0-0.0 /100 WBC ) NUCLEATED RBC 0.0 LAB RBCCT(LOIN 4.50 - 5.90 x10E12/L C) RBC 4.52 LAB HGB(LOINC) 13.5 - 17.5 g/dL Low HGB 12.4 LAB HCT(LOINC) 41.0 - 52.0 % Low HCT 37.9 LAB MCV(LOINC) 80 - 100 fL MCV 84 LAB MCHC2(LOIN 32.0 - 36.0 g/dL C) MCHC 32.7 LAB PLTCT(LOIN 150 - 450 x10E9/L C) PLT 263 LAB RDWCV(LOIN 11.5 - 14.5 % C) RDW-CV 14.4 Performed By: #### CBC #### [facility] [address] [place] [address] MAGNESIUM Collected: 02/24/2018 Status: F Source: [place] [id number] [place] [address] REPOSITORY TYPE CODE TESTS RESULT OUT OF REFERENCE UNITS RANGE LAB MG(LOINC) 1.60 - 2.40 mg/dL MAGNESIUM 2.13 Performed By: #### MG #### [facility] [address] [place] [address] RENAL FUNCTION PANEL Collected: 02/24/2018 Status: F Source: [facility] [address] [place] [address] REPOSITORY TYPE CODE TESTS RESULT OUT OF RANGE REFERENCE UNITS LAB GLU(LOINC) 74 - 99 mg/dL High GLUCOSE 121 LAB SOD(LOINC) 136 - 145 mmol/L Low SODIUM 132 LAB K(LOINC) 3.5 - 5.3 mmol/L POTASSIUM 5.0 LAB CHLOR(LOIN 98 - 107 mmol/L C) CHLORIDE 98 LAB BIC(LOINC) 21 - 32 mmol/L BICARBONATE 25 LAB ANGAP(LOIN 10 - 20 mmol/L C) ANION GAP 14 LAB UREA(LOINC 6 - 23 mg/dL ) High UREA NITROGEN 53 LAB CREA(LOINC 0.50 - 1.30 mg/dL ) CREATININE 1.25 LAB GFRFN(LOIN >60 mL/min/1.7 C) 3m2 GFR-NON Abnormal AM. 58 LAB GFRAA(LOIN >60 mL/min/1.7 C) 3m2 GFR- AM. 70 Result Comment: CALCULATIONS OF ESTIMATED GFR ARE PERFORMED USING THE MDRD STUDY EQUATION FOR THE IDMS-TRACEABLE CREATININE METHODS. CLIN CHEM 2007;53:766-72 LAB CA(LOINC) 8.6 - 10.6 mg/dL CALCIUM 9.5 LAB PHOS(LOINC) 2.5 - 4.9 mg/dL PHOSPHORUS Low 2.3 Result Comment: The performance characteristics of phosphorus testing in heparinized plasma have been validated by the individual laboratory site where testing is performed. Testing on heparinized plasma is not approved by the FDA; however, such approval is not necessary. LAB ALB(LOINC) 3.4 - 5.0 g/dL Low ALBUMIN 2.5 Performed By: #### RENAL #### [facility] [address] [place] [address] GLUCOSE-POCT Collected: 02/24/2018 Status: F Source: [facility] 3:49 AM HOSPITALS REPOSITORY TYPE CODE TESTS RESULT OUT OF RANGE REFERENCE UNITS LAB GLUP(LOINC) 74 - 99 mg/dL High 120 GLUCOSE-POCT Performed By: #### GLUPO #### [facility] [address] [place] [address] GLUCOSE-POCT Collected: 02/23/2018 Status: F Source: [facility] 11:04 PM HOSPITALS REPOSITORY TYPE CODE TESTS RESULT OUT OF RANGE REFERENCE UNITS LAB GLUP(LOINC) 74 - 99 mg/dL High 108 GLUCOSE-POCT Performed By: #### GLUPO #### [facility] [address] [place] [address] GLUCOSE-POCT Collected: 02/23/2018 Status: F Source: [facility] 7:32 PM HOSPITALS REPOSITORY TYPE CODE TESTS RESULT OUT OF RANGE REFERENCE UNITS LAB GLUP(LOINC) 74 - 99 mg/dL High 113 GLUCOSE-POCT Performed By: #### GLUPO #### [facility] [address] [place] [address] EMR ADDON Collected: 02/23/2018 Status: F Source: [facility] 5:56 PM [facility] REPOSITORY TYPE CODE TESTS RESULT OUT OF REFERENCE UNITS RANGE LAB EMRAC(LOIN C) ADDON CONFIRMATION REQUEST REC'D Performed By: #### EMRAD #### NO LOCATION NEEDED GLUCOSE-POCT Collected: 02/23/2018 Status: F Source: [facility] 4:36 PM [facility]ITALS REPOSITORY TYPE CODE TESTS RESULT OUT OF RANGE REFERENCE UNITS LAB GLUP(LOINC) 74 - 99 mg/dL High 125 GLUCOSE-POCT Performed By: #### GLUPO #### [facility] [address] [place] [address] AMMONIA Collected: 02/23/2018 Status: F Source: ID[facility] 3:10 PM [facility] REPOSITORY TYPE CODE TESTS RESULT OUT OF RANGE REFERENCE UNITS LAB AMM(LOINC) umol/L Abnormal AMMONIA 61 Result Comment: . REFERENCE VALUES DAY 1 to DAY 7 <110 DAY 8 to DAY 14 < 90 DAY 15 to ADULT 16-53 Performed By: #### AMM #### [facility] [address] [place] [address] TSH Collected: 02/23/2018 Status: F Source: ID[facility]EL 3:10 [facility] REPOSITORY TYPE CODE TESTS RESULT OUT OF RANGE REFERENCE UNITS LAB TSH2(LOINC) 0.44 - 3.98 mIU/L TSH 1.03 Result Comment: TSH testing is performed using different testing methodology at [facility] than at other [facility]. Direct result comparisons should only be made within the same method. . Patients receiving more than 5 mg/day of biotin may have interference in test results. A sample should be taken no sooner than eight hours after previous dose. Contact [phone] for additional information. Performed By: #### TSH2 #### [facility] [address] [place] [id number] NUTRITION THERAPY-ASSESSMENT Observed: 02/23/2018 Status: UNK Source: [facility]EL 3:03 PM [facility] REPOSITORY Assessment Subjective/Objective: Note Type: Assessment Note Authored by: Registered Dietitian Career Placement Specialist Pager Number: [phone] Nutrition Note: Reconsulted to provide TF recommendations for patient who is s/p PEG on 02/21. He had issues with aspiration (secretions) post-PEG and was transferred to MICU for further care. Pt being followed by RDNs this admission with most recent TF recommendations made on 02/21. Difficult to determine on RN flowsheets how much TF patient has received since admission but appears that he has not had any since 02/18 or 02/19 and has not been at goal rate per RDN recommendations as EMR orders were not updated. Sugars were high while on TF previously and pt has an HbA1c of 7.6% this admission. Sugars are currently in the mid-100s. He is currently sitting up in bed and on 50% Airvo and receiving 50L oxygen per minute for support. Estimated needs: 2200-2400kcals, 100grams protein Recommendations: 1) May need to consider J-tube extension for patient if he is high risk for aspiration. 2) For TF, please change EMR orders to Diabetisource AC at start rate of 20mls/hr. Increase by 10mls q6hrs as sugars are controlled to goal rate of 80mls/hr reached. Water flushes per team's discretion. --> Pt will receive 2304kcals, 115grams protein, 192grams carbs and 1920mls volume (1566mls volume). --> If pt has tolerance issues to this formula, may need to change to a lower fat, fiber-free formula if issues are r/t gastroparesis. Will monitor. Following-- [id number] . Electronic Signatures: Margarita Harrington (JORDYN, NOAH) (Signed 23-Feb-2018 15:42) Authored: Assessment Subjective/Objective Last Updated: 23-Feb-2018 15:42 by Margarita Harrington (JORDYN, NOAH) DAILY PROGRESS NOTE Observed: 02/23/2018 Status: COMPLETED Source: [facility] 2:58 PM [facility] REPOSITORY Subjective Data: ID Statement: DIPESH BERMUDEZ is a 67 year old Male who is Hospital Day # 14 and ICU Day #3 and POD #12 for left retrosigmoid craniotomy for tumor resection. Mr. Bermudez is doing well this morning. His mentation has improved greatly since yesterday. He is able to follow commands and answer questions. Patient says he does not have pain and is able to endorse that he feels better. Spoke to family on phone and they wanted to know more about imaging. Conveyed results of CT to them. Also spoke to neurosurgery who said they would update family, as family was concerned about acute change in mental status since 02/21. Objective Data: Objective Information T PRBPSpO2 [id number]% Date/Time02/23 12: 14: 14: 14: 14:00 Range(35.9C - 37.3C ) (79 - 101 ) (11 - 27 ) (101 - 145 )/ (63 - 95 ) (89% - 99% ) As of 23-Feb-2018 08:00:00, patient is on 70% oxygen via airvo. Highest temp of 37.3 C was recorded at 02/23 8:00 Pain at Rest reported at 02/23 8:00: 0 ---- Intake and Output ----- Mn/Dy/Year TimeIntakeOutputNet Feb 23, 2018 2:00 [id number] Feb 23, 2018 6:00 [id number] Feb 22, 2018 10:00 [id number] The Intake and Output Totals for the last 24 hours are: IntakeOutputNet [id number] Drain and tube details (included in I&O totals) 1100 cc Indwelling Catheter - Urethral( 23-Feb-2018 06:00:00 ) Weights 02/23 6:00: Weight in kg (Weight (kg)) 92.7 02/23 6:00: Weight in lbs ((lbs)) 204.3 Physical Exam: Physical Exam: Neurological: Right facial droop; dysarthria. Tried to perform neuro exam but patient only able to follow certain commands--patient was slightly confused when trying to test sensation; strength 4/5 in right lower extremity and 5/5 in other extremities; AAOx1 (oriented to self) Cardiovascular: RRR, no m/r/g appreciated Respiratory/Thorax: Absent lung sounds in left lung, crackles in lower right lung base Gastrointestinal: Soft, non-tender, non-distended, BS+ Constitutional: Sitting upright in bed, NAD, awake, opens eyes and tracks Eyes: PERRL Extremities: No clubbing, cyanosis, or edema Allergies: Allergies: Codeine Sulfate: Unknown penicillin: Unknown insulin: Unknown Intolerances: Aspir 81: GI Upset Medications: Medications: Continuous Medications 1. Sodium Chloride 0.9% Infusion: 1000 mL IntraVenous <Continuous> Scheduled Medications 1. Albuterol 2.5 mg/ 3 mL Nebulizer Soln: 3 mL Inhalation Every 6 Hours 2. Atorvastatin: 40 mg Oral Daily 3. Budesonide 0.25 mg/ 2 mL Nebulizer Soln: 2 mL Inhalation Every 12 Hours 4. Cefepime 2 gram IVPB/ Premixed Soln 100 mL: 100 mL IntraVenous Piggyback Every 8 Hours 5. Docusate Oral Liquid: 100 mg Oral 2 Times a Day 6. Esomeprazole Oral Packet: 40 mg NasoGastric Tube Daily 7. Formoterol 20 microgram/ 2 mL Neb Soln: 2 mL Inhalation Every 12 Hours 8. guaiFENesin Oral Liquid: 400 mg Oral Every 6 Hours 9. Heparin SubCutaneous: 5000 unit(s) SubCutaneous Every 8 Hours 10. Insulin Lispro Moderate Corrective Scale: unit(s) SubCutaneous Every 4 Hours 11. Nicotine 14 mg/ 24 hour TransDermal: 1 patch TransDermal Every 24 Hours 12. Sennosides: 2 tablet(s) Oral Daily 13. Silodosin (NON - Formulary): 8 mg NasoGastric Tube Daily 14. Sodium Chloride 0.9% Injectable Flush: 10 mL IntraVenous Flush Every 12 Hours 15. Valproic Acid IV Piggy Back (Depacon): 250 mg IntraVenous Piggyback Every 12 Hours PRN Medications 1. Acetaminophen: 650 mg Oral Every 6 Hours 2. Albuterol 2.5 mg/ 3 mL Nebulizer Soln: 3 mL Inhalation Every 2 Hours 3. Bisacodyl Rectal: 10 mg Rectal Daily 4. Dextrose 50% in Water Injectable: 25 gram(s) IntraVenous Push Every 15 Minutes 5. Fleet Adult (Sodium Phosphate) Rectal: 1 enema Rectal Daily 6. Glucagon Injectable: 1 mg IntraMuscular Every 15 Minutes 7. Heparin Flush 10 unit/ mL PF Injectable PRN: 5 mL IntraVenous Flush According to Flush Policy 8. hydrALAZINE Injectable: 10 mg IntraVenous Push Every 6 Hours 9. Lidocaine 1% Injectable (PICC KIT): 1 mL IntraDermal Once 10. Morphine Injectable: 4 mg IntraVenous Push Every 3 Hours 11. Ondansetron Injectable: 4 mg IntraVenous Push Every 6 Hours 12. oxyCODONE Immediate Release: 5 mg Oral Every 4 Hours 13. oxyCODONE Immediate Release: 10 mg Oral Every 4 Hours 14. Polyethylene Glycol: 17 gram(s) Oral Daily Currently Suspended Medications 1. amLODIPine: 10 mg Oral Daily 2. Divalproex Sodium Ext Rel (Depakote ER): 500 mg Oral Every 24 Hours 3. hydroCHLOROthiazide: 25 mg Oral Daily 4. Lisinopril: 30 mg Oral Daily Recent Lab Results: Results: CBC: 02/23/2018 04:31 \ Hgb / \ 13.4 L / WBC Plt 28.9 H 235 / Hct \ / 40.7 L \ RBC: 4.85 MCV: 84 RFP: 02/23/2018 04:31 NA+ Cl- BUN / 134 L 97 L 54 H / Glucose 133 H K+ HCO3- Creat \ 5.1 28 1.40 H \ Calcium : 9.5Anion Gap : 14 Albumin : 2.6 L Phos : 2.7 Recent Arterial Blood Gas Results 02/23/2018 13:54 pO266 pH7.49 [id number] SO295 Base Excess6.6 [id number] Results: Impression: 1. Interval significant improvement in left lung aeration with residual mild left basilar atelectasis and small left pleural effusion remaining. No sizable pneumothorax. Xray Chest 1 View [Feb 23 2018 9:12AM] Impression: Unchanged CT head including stable postoperative changes as above. CT Head without Contrast [Feb 22 2018 2:47PM] Assessment and Plan: Daily Risk Screen: Does patient have a central lineno Does patient have an indwelling urinary catheteryes Plan for indwelling urinary catheter removal todayno The patient continues to require indwelling urinary catheterization for critically ill patients who need accurate urinary output measurements Is the patient intubatedno Neurology: Diagnosis: Assessment: Mr. Bermudez is a 67 year old man with a PMH of HTN, DM, COPD, tobacco abuse, CYNTHIA, meningioma s/p resection 02/11 with post-op dysphagia and dysarthria who presented with hypoxic respiratory failure and is now requiring HF NC at 60 LPM with 71% FiO2 (10 AM). Most likely etiology of patient's presentation is worsening aspiration pneumonitis with lung collapse. Patient's WBC has improved slightly (28.9 from 29.7) and mentation has improved greatly. Delirium suspected as well--delirum w/u ordered. Touched base with neurosurgery about patient's mental status and they saw him today and will communicate status to family. Currently DNR/DNI. HDS on HF NC. Weaning down HF NC. Plan: #Neuro: - Patient is s/p left craniotomy on 02/11 - Patient's most recent MRI showed a left lateral alejandra diffusion restriction - CT head without contrast ordered 02/22 Post-operative changes noted are stable - Patient has post-op dysphagia, dysarthria, and possible left CN palsy - Patient's trazodone and risperidone have been suspended Patient's mentation improved today, could also be 2/2 to discontinuation of these medications - Rule out delirium as cause of patient's AMS TSH, B12, folate, ammonia ordered #Pulm: - Acute hypoxic, hypercapnic respiratory failure likely 2/2 to aspiration pneumonitis but could also be a COPD exacerbation - Patient on albuterol q4h as needed - Continue Pulmicort BID - Started Formoterol BID - Aggressive RT physiotherapy, IPV Wean off FiO2 as tolerated Patient now on 50 LMP at 55% FiO2 - Blood cultures negative to date - Procalcitonin not elevated at 0.19 Repeat procalcitonin ordered - Antibiotic management: Discontinued vancomycin 02/22 Discontinue azithromycin Discontinue flagyl Continue cefepime (stop tomorrow to complete course) #Cardiovascular - HTN Patient takes amlodipine, HCTZ, and lisinopril These have been discontinued as patient's pressure were soft - DLD Atorvastatin 40 mg daily #GI - 02/16 MBS showed patient should be NPO - 02/21 PEG tube was placed - Since patient is more alert than yesterday, his risk of aspiration has decreased - Nutrition consult placed and will then start patient on tube feeds through PEG #Heme - No active issues #ID - Possible aspiration pneumonitis - See pulm part of plan for infection management via abx #Endocrine - Insulin moderate lispro sliding scale - Lantus 20 units at PM held as patient NPO F - Maintenance NS 75cc/hr E - Replete as needed N - NPO until oxygen requirement improves--will start feeds after nutrition therapy recs for first time use of PEG PPx - Heparin subcutaneous Code status: DNR/DNI (Confirmed on family meeting 02/17) Code Status: Code StatusDNAR with Added Limitations Signature/Cosignature/Attestation: Attending AttestationI saw and evaluated the patient. I personally obtained the gonzalez and critical portions of the history and physical exam or was physically present for gonzalez and critical portions performed by the resident/fellow. I reviewed the resident/fellows documentation and discussed the patient with the resident/fellow. I agree with the resident/fellows medical decision making as documented in the residents note. I personally evaluated the patient (as noted in the above attestation) on 23-Feb-2018 Critical Care PatientI have reviewed and evaluated the most recent data and results, personally examined the patient, and formulated the plan of care as presented above. This patient was critically ill and required continued critical care treatment. Teaching and any separately billable procedures are not included in the time calculation. Billing Provider Critical Care Time45 minute(s) Primary Critical Care Issue/Treatment (See Assessment and Plan for greater detail)-- This patient has impending or acute respiratory failure. We are treating with appropriate medications, ventilatory and/or oxygenating support, as indicated, as well as intensive monitoring. Please see assessment and plan above for greater detail.; -- This patient is believed to have sepsis. We are treating with appropriate agents (antibiotics, antifungals, and/or antivirals), fluids and/or pressors, as indicated, as well as intensive monitoring. Please see assessment and plan above for greater detail.; -- This patient has significantly altered mental status (delirium, encephalopathy, coma, or anoxic brain damage). We are treating with appropriate medications, hemodynamic support, ventilatory and/or oxygenating support, as indicated, as well as doing intensive diagnostic evaluation and neurological monitoring. Please see assessment and plan above for greater detail. Electronic Signatures: Lore Li (Resident)) (Signed 23-Feb-2018 15:20) Authored: Subjective Data, Objective Data, Assessment and Plan, Signature/Cosignature/Attestation Antoinette Pino) (Signed 28-Feb-2018 18:58) Authored: Assessment and Plan, Signature/Cosignature/Attestation Co-Signer: Subjective Data, Objective Data, Assessment and Plan, Signature/Cosignature/Attestation Last Updated: 28-Feb-2018 18:58 by Antointete Pino) ARTERIAL BLOOD GAS Collected: 02/23/2018 Status: F Source: ID[facility]EL 1:54 PM [facility] REPOSITORY TYPE CODE TESTS RESULT OUT OF REFERENCE UNITS RANGE LAB PHART(LOIN 7.38 - 7.42 C) pH High 7.49 LAB PCO2A(LOIN 38 - 42 mmHg C) PCO2 40 LAB PO2A(LOINC 85 - 95 mmHg ) PO2 Low 66 LAB TEMP(LOINC degrees C ) PATIENT TEMPERATURE 37.0 Result Comment: NOTE: PATIENT RESULTS ARE NOT CORRECTED FOR TEMPERATURE. LAB SO2%A(LOINC) 94 - 100 % SO2 95 LAB BSEXB(LOINC) -2.0 - 3.0 mmol/L BASE High EXCESS-BLOOD 6.6 LAB BICAR(LOINC) 22.0 - mmol/L 26.0 BICARB, High CALCULATED 30.5 Performed By: #### [email or web address] #### [facility] [address] [address] [place] [address] EMR ADDON Collected: 02/23/2018 Status: F Source: [facility] 12:35 PM [facility] REPOSITORY TYPE CODE TESTS RESULT OUT OF REFERENCE UNITS RANGE LAB EMRAC(LOIN C) ADDON CONFIRMATION REQUEST REC'D Performed By: #### EMRAD #### NO LOCATION NEEDED EMR ADDON Collected: 02/23/2018 Status: F Source: [facility] 12:29 PM [facility] REPOSITORY TYPE CODE TESTS RESULT OUT OF REFERENCE UNITS RANGE LAB EMRAC(LOIN C) ADDON CONFIRMATION REQUEST REC'D Performed By: #### EMRAD #### NO LOCATION NEEDED GLUCOSE-POCT Collected: 02/23/2018 Status: F Source: [facility] 12:11 PM [facility] REPOSITORY TYPE CODE TESTS RESULT OUT OF RANGE REFERENCE UNITS LAB GLUP(LOINC) 74 - 99 mg/dL High 136 GLUCOSE-POCT Performed By: #### GLUPO #### [facility] [address] [place] [address] GLUCOSE-POCT Collected: 02/23/2018 Status: F Source: [facility] 8:13 AM [facility] REPOSITORY TYPE CODE TESTS RESULT OUT OF RANGE REFERENCE UNITS LAB GLUP(LOINC) 74 - 99 mg/dL High 158 GLUCOSE-POCT Performed By: #### GLUPO #### [facility] [address] [place] [address] TH CHEST 1 VIEW Observed: 02/23/2018 Status: F Source: [facility] 7:25 AM [facility] REPOSITORY Patient Name: DIPESH BERMUDEZ STUDY: TH CHEST 1 VIEW; 02/23/2018 7:25 am INDICATION: Signs/Symptoms: Follow up for aspiration pneumonia. COMPARISON: 02/21/2018 at 10:10 p.m. ACCESSION NUMBER(S): [id number] ORDERING CLINICIAN: OLGA MANUEL FINDINGS: There is better delineation of left cardiac border on present examination. Patient is status post left lower lobectomy. There has been interval significant improvement in left lung aeration with mild residual left basilar retrocardiac opacities remaining. Small left pleural effusion not excluded. Right lung is clear. No pneumothorax. No acute osseous abnormality. IMPRESSION: 1. Interval significant improvement in left lung aeration with residual mild left basilar atelectasis and small left pleural effusion remaining. No sizable pneumothorax. I personally reviewed the images/study and resident's interpretation and I agree with the findings as stated. This study was performed , analyzed and interpreted at [facility], [place], [place]. Electronically signed by: LEXI LI MD VITAMIN B12 Collected: 02/23/2018 Status: F Source: [facility] 5:48 AM [facility] REPOSITORY TYPE CODE TESTS RESULT OUT OF REFERENCE UNITS RANGE LAB VTB12(LOINC 211 - 911 pg/mL ) High VITAMIN B12 1203 Performed By: #### VTB12 #### [facility] [address] [place] [address] FOLATE, SERUM Collected: 02/23/2018 Status: F Source: [facility] 5:48 AM [facility] REPOSITORY TYPE CODE TESTS RESULT OUT OF RANGE REFERENCE UNITS LAB FOLA2(LOINC >5.0 ng/mL ) Abnormal 3.1 FOLATE, SERUM Result Comment: Patients receiving more than 5 mg/day of biotin may have interference in test results. A sample should be taken no sooner than eight hours after previous dose. Contact [phone] for additional information. Performed By: #### FOLA2 #### [facility] [address] [place] [address] CLINICAL EVENT Observed: 02/23/2018 Status: UNK Source: [facility]EL NOTE-NSGY UPDATE 5:00 AM [facility]OSPITALS REPOSITORY Event: Topic: nsgy update Details: Patient seen this morning. O2 requirements have decreased On exam, patient was wide awake, Ox1, DORA (RUE with slower movements compared to the other three), occasionally follows commands incision cdi with running nylon -micu primary -will follow the patient -please page nsgy if you have any questions Provider / Team Contact Information: Provider/Team Contact Info-Pager Number: [phone] Electronic Signatures: Santiago Tompkins ( (Resident)) (Signed 23-Feb-2018 14:33) Authored: Event, Provider / Team Contact Information Last Updated: 23-Feb-2018 14:33 by Santiago Tompkins ( (Resident)) CBC Collected: 02/23/2018 Status: F Source: [facility] 4:31 AM [facility] REPOSITORY TYPE CODE TESTS RESULT OUT OF REFERENCE UNITS RANGE LAB WBCR(LOINC 4.4 - 11.3 x10E9/L ) WBC High 28.9 LAB NRBC(LOINC 0.0-0.0 /100 WBC ) NUCLEATED RBC 0.0 LAB RBCCT(LOIN 4.50 - 5.90 x10E12/L C) RBC 4.85 LAB HGB(LOINC) 13.5 - 17.5 g/dL Low HGB 13.4 LAB HCT(LOINC) 41.0 - 52.0 % Low HCT 40.7 LAB MCV(LOINC) 80 - 100 fL MCV 84 LAB MCHC2(LOIN 32.0 - 36.0 g/dL C) MCHC 32.9 LAB PLTCT(LOIN 150 - 450 x10E9/L C) PLT 235 LAB RDWCV(LOIN 11.5 - 14.5 % C) RDW-CV 14.2 Performed By: #### CBC #### [facility] [address] [place] [address] MAGNESIUM Collected: 02/23/2018 Status: F Source: [facility] 4:31 AM [facility] REPOSITORY TYPE CODE TESTS RESULT OUT OF REFERENCE UNITS RANGE LAB MG(LOINC) 1.60 - 2.40 mg/dL MAGNESIUM 2.22 Performed By: #### MG #### [facility] [address] [place] [address] RENAL FUNCTION PANEL Collected: 02/23/2018 Status: F Source: [facility] 4:31 AM [facility] REPOSITORY TYPE CODE TESTS RESULT OUT OF RANGE REFERENCE UNITS LAB GLU(LOINC) 74 - 99 mg/dL High GLUCOSE 133 LAB SOD(LOINC) 136 - 145 mmol/L Low SODIUM 134 LAB K(LOINC) 3.5 - 5.3 mmol/L POTASSIUM 5.1 LAB CHLOR(LOIN 98 - 107 mmol/L C) Low CHLORIDE 97 LAB BIC(LOINC) 21 - 32 mmol/L BICARBONATE 28 LAB ANGAP(LOIN 10 - 20 mmol/L C) ANION GAP 14 LAB UREA(LOINC 6 - 23 mg/dL ) High UREA NITROGEN 54 LAB CREA(LOINC 0.50 - 1.30 mg/dL ) High CREATININE 1.40 LAB GFRFN(LOIN >60 mL/min/1.7 C) 3m2 GFR-NON Abnormal AM. 51 LAB GFRAA(LOIN >60 mL/min/1.7 C) 3m2 GFR- AM. 62 Result Comment: CALCULATIONS OF ESTIMATED GFR ARE PERFORMED USING THE MDRD STUDY EQUATION FOR THE IDMS-TRACEABLE CREATININE METHODS. CLIN CHEM 2007;53:766-72 LAB CA(LOINC) 8.6 - 10.6 mg/dL CALCIUM 9.5 LAB PHOS(LOINC) 2.5 - 4.9 mg/dL PHOSPHORUS 2.7 Result Comment: The performance characteristics of phosphorus testing in heparinized plasma have been validated by the individual laboratory site where testing is performed. Testing on heparinized plasma is not approved by the FDA; however, such approval is not necessary. LAB ALB(LOINC) 3.4 - 5.0 g/dL Low ALBUMIN 2.6 Performed By: #### RENAL #### [facility] [address] [place] [address] PROCALCITONIN Collected: 02/23/2018 Status: F Source: [facility] 4:31 [facility] REPOSITORY TYPE CODE TESTS RESULT OUT OF RANGE REFERENCE UNITS LAB PCALC(SHAKEEL <=0.07 ng/mL NC) PROCALCITONIN Abnormal 0.24 Result Comment: Note new reference range and methodology as of 06/29/2017. . Procalcitonin (PCT) results measured serially can aid in decision-making for antibiotic discontinuation in patients with suspected or confirmed sepsis in conjunction with additional clinical information. Antibiotic discontinuation may be considered with a change in PCT of >80% from the peak result or when PCT falls below 0.50 ng/mL. . Procalcitonin results should not be used in isolation but should be interpreted in conjunction with additional clinical and laboratory findings. Procalcitonin results should not be used to guide the initiation of antibiotic therapy. . Falsely low PCT values in the presence of bacterial infection may occur in early infection, with atypical pathogens, localized infections, and subacute infectious endocarditis. . Falsely elevated results outside of severe bacterial infection/sepsis may be seen in patients with renal failure or insufficiency, severe trauma or chao, recent major abdominal/cardiac surgery, acute multi-organ failure, rarely in patients with medullary thyroid carcinoma and rare neuroendocrine tumors, and non-specific interfering antibodies (heterophile antibodies, rheumatoid factor, human anti-mouse antibodies (HAMA), etc). . Performance of the PCT test in pediatric patients (<18yo), women, immunocompromised patients, and patients on immunomodulatory medications has not been evaluated. 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 TYPE CODE TESTS RESULT OUT OF REFERENCE UNITS RANGE LAB TSH2(LOINC) TSH Canceled Result Comment: TSH testing is performed using different testing methodology at [facility] than at other [facility]. Direct result comparisons should only be made within the same method. . Patients receiving more than 5 mg/day of biotin may have interference in test results. A sample should be taken no sooner than eight hours after previous dose. Contact [phone] for additional information. Performed By: #### TSH2 #### [facility] [address] [place] [address] GLUCOSE-POCT Collected: 02/23/2018 Status: F Source: [facility] 3:35 AM [facility] REPOSITORY TYPE CODE TESTS RESULT OUT OF RANGE REFERENCE UNITS LAB GLUP(LOINC) 74 - 99 mg/dL High 165 GLUCOSE-POCT Performed By: #### GLUPO #### [facility] [address] [place] [address] GLUCOSE-POCT Collected: 02/22/2018 Status: F Source: [facility] 11:41 PM [facility] REPOSITORY TYPE CODE TESTS RESULT OUT OF RANGE REFERENCE UNITS LAB GLUP(LOINC) 74 - 99 mg/dL High 133 GLUCOSE-POCT Performed By: #### GLUPO #### [facility] [address] [place] [address] GLUCOSE-POCT Collected: 02/22/2018 Status: F Source: [place] 7:15 PM [facility] REPOSITORY TYPE CODE TESTS RESULT OUT OF RANGE REFERENCE UNITS LAB GLUP(LOINC) 74 - 99 mg/dL High 126 GLUCOSE-POCT Performed By: #### GLUPO #### [facility] [address] [place] [address] GLUCOSE-POCT Collected: 02/22/2018 Status: F Source: [facility] 3:35 PM [facility] REPOSITORY TYPE CODE TESTS RESULT OUT OF RANGE REFERENCE UNITS LAB GLUP(LOINC) 74 - 99 mg/dL High 132 GLUCOSE-POCT Performed By: #### GLUPO #### [facility] [address] [place] [address] DAILY PROGRESS NOTE - Observed: 02/22/2018 Status: COMPLETED Source: [facility] CRITICAL CARE-MICU 1:44 PM HOSPITALS REPOSITORY Service: Critical Care Service: ServiceMICU Subjective Data: ID Statement: DIPESH BERMUDEZ is a 67 year old Male who is Hospital Day # 13 and ICU Day #2 and POD #11 for left retrosigmoid craniotomy for tumor resection. Mr. Bermudez is doing okay this morning. He is sitting upright in bed and is awake. He opens his eyes and acknowledges when visitors are in the room but is unable to follow commands or respond to questions at this time. Patient's mentation slightly improved in afternoon. Family at bedside and patient's condition was discussed with them. They stated that though patient had dysarthria after his surgery in January, his more acute mental status change occurred since yesterday. Objective Data: Objective Information T PRBPSpO2 [id number]/6595% Date/Time02/22 12: 13: 13: 13: 13:00 Range(35.7C - 36.9C ) (76 - 103 ) (15 - 27 ) (85 - 138 )/ (52 - 97 ) (85% - 98% ) As of 22-Feb-2018 12:00:00, patient is on 60 L/min of oxygen via airvo. Highest temp of 36.9 C was recorded at 02/21 15:00 Pain with Activity reported at 02/22 4:00: 0 Pain at Rest reported at 02/22 4:00: 0 ---- Intake and Output ----- [facility] 22, 2018 6:00 [id number] Feb 21, 2018 10:00 [id number] Feb 21, 2018 2:00 [id number] The Intake and Output Totals for the last 24 hours are: IntakeOutputNet [id number] Physical Exam: Physical Exam: Neurological: Left facial droop; dysarthria. Unable to perform full neuro exam as patient unable to respond to commands Cardiovascular: RRR, no m/r/g appreciated Respiratory/Thorax: Absent lung sounds in left lung, crackles in lower right lung base Gastrointestinal: Soft, non-tender, non-distended, BS+ Constitutional: Sitting upright in bed, NAD, awake but not alert; opens eyes and tracks Eyes: PERRL Extremities: No clubbing, cyanosis, or edema Allergies: Allergies: Codeine Sulfate: Unknown penicillin: Unknown insulin: Unknown Intolerances: Aspir 81: GI Upset Medications: Medications: Continuous Medications 1. Sodium Chloride 0.9% Infusion: 1000 mL IntraVenous <Continuous> Scheduled Medications 1. Albuterol 2.5 mg/ 3 mL Nebulizer Soln: 3 mL Inhalation Every 6 Hours 2. amLODIPine: 10 mg Oral Daily 3. Atorvastatin: 40 mg Oral Daily 4. Azithromycin: 500 mg Feeding tube Every 24 Hours 5. Budesonide 0.25 mg/ 2 mL Nebulizer Soln: 2 mL Inhalation Every 12 Hours 6. Cefepime 2 gram IVPB/ Premixed Soln 100 mL: 100 mL IntraVenous Piggyback Every 8 Hours 7. Docusate: 100 mg Oral 2 Times a Day 8. Docusate Oral Liquid: 100 mg Oral 2 Times a Day 9. Esomeprazole Oral Packet: 40 mg NasoGastric Tube 2 Times a Day 10. guaiFENesin Oral Liquid: 400 mg Oral Every 6 Hours 11. Heparin SubCutaneous: 5000 unit(s) SubCutaneous Every 8 Hours 12. hydroCHLOROthiazide: 25 mg Oral Daily 13. Insulin Glargine (Lantus) Injectable: 20 unit(s) SubCutaneous At Bedtime 14. Insulin Lispro Moderate Corrective Scale: unit(s) SubCutaneous Every 4 Hours 15. Lisinopril: 30 mg Oral Daily 16. metroNIDAZOLE: 500 mg Feeding tube Every 8 Hours 17. Nicotine 14 mg/ 24 hour TransDermal: 1 patch TransDermal Every 24 Hours 18. Sennosides: 2 tablet(s) Oral Daily 19. Silodosin (NON - Formulary): 8 mg NasoGastric Tube Daily 20. Sodium Chloride 0.9% Injectable Flush: 10 mL IntraVenous Flush Every 12 Hours 21. Valproic Acid IV Piggy Back (Depacon): 250 mg IntraVenous Piggyback Every 12 Hours PRN Medications 1. Acetaminophen: 650 mg Oral Every 6 Hours 2. Albuterol 2.5 mg/ 3 mL Nebulizer Soln: 3 mL Inhalation Every 2 Hours 3. Bisacodyl Rectal: 10 mg Rectal Daily 4. Dextrose 50% in Water Injectable: 25 gram(s) IntraVenous Push Every 15 Minutes 5. Fleet Adult (Sodium Phosphate) Rectal: 1 enema Rectal Daily 6. Glucagon Injectable: 1 mg IntraMuscular Every 15 Minutes 7. Heparin Flush 10 unit/ mL PF Injectable PRN: 5 mL IntraVenous Flush According to Flush Policy 8. hydrALAZINE Injectable: 10 mg IntraVenous Push Every 6 Hours 9. Lidocaine 1% Injectable (PICC KIT): 1 mL IntraDermal Once 10. Morphine Injectable: 4 mg IntraVenous Push Every 3 Hours 11. Ondansetron Injectable: 4 mg IntraVenous Push Every 6 Hours 12. oxyCODONE Immediate Release: 5 mg Oral Every 4 Hours 13. oxyCODONE Immediate Release: 10 mg Oral Every 4 Hours 14. Polyethylene Glycol: 17 gram(s) Oral Daily Currently Suspended Medications 1. Divalproex Sodium Ext Rel (Depakote ER): 500 mg Oral Every 24 Hours Recent Lab Results: Results: CBC: 02/22/2018 02:37 \ Hgb / \ 13.3 L / WBC Plt 29.7 H 232 / Hct \ / 41.1 \ RBC: 4.80 MCV: 86 Neutrophil %: 84.3 RFP: 02/22/2018 02:37 NA+ Cl- BUN / 130 L 96 L 47 H / Glucose 164 H K+ HCO3- Creat \ 5.5 H 29 1.19 \ Calcium : 9.3Anion Gap : 11 Albumin : 2.6 L Phos : 2.9 Recent Arterial Blood Gas Results 02/22/2018 03:45 [id number] 24 h range: ( 50 - 101 ) pH7.42 24 h range: ( 7.41 - 7.42 ) iIV115 24 h range: ( 47 - 49 ) SO299 24 h range: ( 87 - 99 ) Base Excess5.4 24 h range: ( 4.2 - 5.4 ) Vneqeqqhutn79.1 24 h range: ( 29.8 - 31.1 ) Results: Impression: 1. New left lung volume loss with left mid basilar lung opacification, likely representing postobstructive atelectasis secondary to mucous plugging, better seen on recent CT scan 02/17/2018. Small left pleural effusion or superimposed infectious process is not excluded. Xray Chest 1 View [Feb 22 2018 7:40AM] Assessment and Plan: Daily Risk Screen: Does patient have a central lineno Does patient have an indwelling urinary catheteryes Plan for indwelling urinary catheter removal todayyes Is the patient intubatedno Neurology: Diagnosis: Assessment: Mr. Bermudez is a 67 year old man with a PMH of HTN, DM, COPD, tobacco abuse, CYNTHIA, meningioma s/p resection 02/11 with post-op dysphagia and dysarthria who presented with hypoxic respiratory failure and is now requiring HF NC at 60 LPM with 79% FiO2. Most likely etiology of patient's presentation is worsening aspiration pneumonitis with lung collapse. Patient also has an elevated WBC count at 29.2 though he remains afebrile. Patient has failed his swallow evaluation, and is now NPO. Currently DNR/DNI. HDS on HF NC. Plan: #Neuro: - Patient is s/p left craniotomy on 02/11 - Patient's most recent MRI showed a left lateral alejandra diffusion restriction - CT head without contrast ordered Family would like an MRI ordered if the CT head is not conclusive - Patient has post-op dysphagia, dysarthria, and possible left CN palsy - Patient's trazodone and risperidone have been suspended for tonight--we will evaluate how patient responds to this cessation #Pulm: - Hypoxic, hypercapnic respiratory failure likely 2/2 to aspiration pneumonitis but could also be a COPD exacerbation - Patient on albuterol q4h as needed - Continue Pulmicort BID - Aggressive RT physiotherapy, IPV - Wean off FiO2 as tolerated - Blood cultures negative to date - Procalcitonin not elevated at 0.19 Repeat procalcitonin ordered for 22:00 02/22 - Antibiotic management: Discontinued vancomycin Continue azithromycin Continue flagyl (stop tomorrow) Continue cefepime (stop tomorrow) #Cardiovascular - HTN Patient takes amlodipine, HCTZ, and lisinopril These should be held for soft pressures - DLD Atorvastatin 40 mg daily #GI - 02/16 MBS showed patient should be NPO - 02/21 PEG tube was placed - Patient de-saturated shortly after placement of PEG tube - Patient should remain NPO at this time as his risk of aspiration and subsequent de-saturation is very high--we can start diet once he is not requiring a high FiO2 #Heme - No active issues #ID - Possible aspiration pneumonitis - See pulm part of plan for infection management via abx #Endocrine - Insulin moderate lispro sliding scale - Lantus 20 units at PM F - Maintenance NS 75cc/hr E - Replete as needed N - NPO until oxygen requirement improves PPx - Heparin subcutaneous Code status: DNR/DNI (Confirmed on family meeting 02/17) Code Status: Code StatusDNAR with Added Limitations Signature/Cosignature/Attestation: Attending AttestationI saw and evaluated the patient. I personally obtained the gonzalez and critical portions of the history and physical exam or was physically present for gonzalez and critical portions performed by the resident/fellow. I reviewed the resident/fellows documentation and discussed the patient with the resident/fellow. I agree with the resident/fellows medical decision making as documented in the residents note. I personally evaluated the patient (as noted in the above attestation) on 22-Feb-2018 Comments/ Additional Findings critcal care time already billed on H&P Critical Care PatientI have reviewed and evaluated the most recent data and results, personally examined the patient, and formulated the plan of care as presented above. This patient was critically ill and required continued critical care treatment. Teaching and any separately billable procedures are not included in the time calculation. Billing Provider Critical Care Time0 minute(s) Primary Critical Care Issue/Treatment (See Assessment and Plan for greater detail)-- This patient has impending or acute respiratory failure. We are treating with appropriate medications, ventilatory and/or oxygenating support, as indicated, as well as intensive monitoring. Please see assessment and plan above for greater detail.; -- This patient has significantly altered mental status (delirium, encephalopathy, coma, or anoxic brain damage). We are treating with appropriate medications, hemodynamic support, ventilatory and/or oxygenating support, as indicated, as well as doing intensive diagnostic evaluation and neurological monitoring. Please see assessment and plan above for greater detail. Electronic Signatures for Addendum Section: Lore Li (Resident)) (Signed Addendum 24-Feb-2018 13:57) NOTE: patient had RIGHT facial droop on this day, not LEFT. Family mentioned right legged weakness, which I was unable to assess that morning as patient was not responding to commands to left legs and test strength. Electronic Signatures: Lore Li ( (Resident)) (Signed 22-Feb-2018 14:21) Authored: Service, Subjective Data, Objective Data, Assessment and Plan, Signature/Cosignature/Attestation Antoinette Pino) (Signed 22-Feb-2018 19:14) Authored: Assessment and Plan, Signature/Cosignature/Attestation Co-Signer: Assessment and Plan, Signature/Cosignature/Attestation Last Updated: 24-Feb-2018 13:57 by Lore Li ( (Resident)) Observed: 02/22/2018 Status: F Source: [facility] STAPH/MRSA SCREEN 1:30 PM HOSPITALS REPOSITORY PATIENT: DIPESH BERMUDEZ LOCATION: [facility] BILL#: [id number] : 54 AGE: SEX: M ORDERED BY: MAREN PINO SOURCE: NASOPHARYNGEAL COLLECTED: 02/22/18 13:30 ANTIBIOTICS AT [place].: RECEIVED : 02/22/18 14:19 SITE: R E S U L T S STAPH/MRSA SCREEN FINAL 02/24/18 07:21 NO Staphylococcus aureus ISOLATED. Performed By: #### STAPH #### [facility] [address] [place] [address] Observed: 02/22/2018 Status: CANCELLED Source: [facility] STAPH/MRSA SCREEN 1:29 PM HOSPITALS REPOSITORY TEST STAPH/MRSA SCREEN WAS CANCELLED, 02/23/2018 14:34 DUPLICATE ORDER. PATIENT: DIPESH BERMUDEZ LOCATION: [facility] BILL#: [id number] : 54 AGE: SEX: M ORDERED BY: EMMANUELLE MARC SOURCE: ANTERIOR NARES COLLECTED: 02/22/18 13:29 ANTIBIOTICS AT [place].: RECEIVED : SITE: NARES AND RELATED LOCATIONS R E S U L T S STAPH/MRSA SCREEN CANCELLED 02/23/18 14:34 Performed By: #### STAPH #### [facility] [address] [place] [address] Observed: 02/22/2018 Status: CANCELLED Source: [facility] RESPIRATORY 1:29 PM HOSPITALS REPOSITORY CULT./SM,LOWER TEST RESPIRATORY CULT./SM,LOWER WAS CANCELLED, 02/26/2018 03:39 No specimen received. PATIENT: DIPESH BERMUDEZ [facility] B[facility] [id number] : 54 AGE: SEX: M ORDERED BY: CELIA SAMAYOA SOURCE: SPUTUM COLLECTED: 02/22/18 13:29 ANTIBIOTICS AT [place].: RECEIVED : SITE: R E S U L T S GRAM STAIN CANCELLED 02/26/18 03:39 RESPIRATORY CULT./SM,LOWER CANCELLED 02/26/18 03:39 Performed By: #### RESPL #### [facility] [address] [place] [address] HEAD WO Observed: 02/22/2018 Status: F Source: [facility] CONTRAST 1:17 PM HOSPITALS REPOSITORY Patient Name: DIPESH BERMUDEZ STUDY: NR CT HEAD WO CONTRAST; 02/22/2018 1:17 pm INDICATION: Signs/Symptoms: New right sided weakness, Lie Flat: Yes. COMPARISON: CT head from 02/17/2018. ACCESSION NUMBER(S): [id number] ORDERING CLINICIAN: LORE LI TECHNIQUE: Routine unenhanced CT of the head was performed. FINDINGS: There are postoperative changes from left retrosigmoid craniectomy with mesh cranioplasty and prior left frontoparietal and temporal craniotomy. There is stable extra-axial fluid underlying the retrosigmoid mesh cranioplasty measuring 1.7 cm in maximum thickness and extends into the occipital and suboccipital soft tissues consistent with a pseudomeningocele. There is stable mass effect on the left cerebellum. There is stable prominence of CSF along the left cerebellum and in the left cerebellopontine angle. There is stable soft tissue density in the prepontine cistern and cerebellopontine angle which may reflect residual tumor. There is stable encephalomalacia in the left temporal lobe and in the left brainstem. There is stable encephalomalacia in the bilateral paramedian cerebellum, right greater than left. The ventricles and sulci are unchanged in size, shape, and configuration. There is no acute transcortical infarct in the supratentorial brain. There is no abnormal extra-axial fluid collection in the supratentorial compartment. There is mild mucosal thickening in the paranasal sinuses. The mastoid air cells are clear. There is stable deformity of the right zygoma, likely sequela of prior trauma. IMPRESSION: Unchanged CT head including stable postoperative changes as above. This study was interpreted at [facility]. Electronically signed by: IGNACIO SANTANA MD GLUCOSE-POCT Collected: 02/22/2018 Status: F Source: [place] 11:33 AM [facility] REPOSITORY TYPE CODE TESTS RESULT OUT OF RANGE REFERENCE UNITS LAB GLUP(LOINC) 74 - 99 mg/dL High 149 GLUCOSE-POCT Performed By: #### GLUPO #### [facility] [address] [place] [address] GLUCOSE-POCT Collected: 02/22/2018 Status: F Source: [place] 7:23 AM [facility] REPOSITORY TYPE CODE TESTS RESULT OUT OF RANGE REFERENCE UNITS LAB GLUP(LOINC) 74 - 99 mg/dL High 165 GLUCOSE-POCT Performed By: #### GLUPO #### [facility] [address] [place] [address] GLUCOSE-POCT Collected: 02/22/2018 Status: F Source: [place] 4:05 AM [facility] REPOSITORY TYPE CODE TESTS RESULT OUT OF RANGE REFERENCE UNITS LAB GLUP(LOINC) 74 - 99 mg/dL High 168 GLUCOSE-POCT Performed By: #### GLUPO #### [facility] [address] [place] [address] HISTORY AND PHYSICAL Observed: 02/22/2018 Status: COMPLETED Source: [facility] - CRITICAL CARE 3:58 AM HOSPITALS REPOSITORY Service: Critical Care Service: ServiceMICU History of Present Illness: Admission Reason: Hypoxic respiratory failure HPI: 67 year old man with HTN, DM, COPD, tobacco abuse, CYNTHIA, hypoxic episodes ( aspiration pneumonitis) with previous meningioma resection presented to [facility] because he is found to have enlargement of the residual mass with worsening diplopia and unsteady gait. He then underwent left retrosigmoid craniotomy for tumor resection on 02/11/18. On 02/16 patient was complaining of dysphagia. MBS done and per speech note: given trials of thin, nectar and honey thick liquids Presents with significantly impaired bolus formation/control, resulting in premature spillage into the pharynx across tested consistencies. Significantly delayed swallow onset with decreased laryngeal elevation/anterior pull and laryngeal vestibular closure resulting in SILENT ASPIRATION in moderate amounts during the swallow with thin liquids and after the swallow with nectar and honey thick liquids 2/2 pharyngeal residue. Given increased amount of pharyngeal residue with thicker viscosities, puree consistency not tested at this time. MANAGER PROCESS IMPROVEMENT recommends STRICT NPO. ENT was consulted, flex endoscopy performed showed left septal deviation, mild oropharyngeal redundant tissue, bilateral TVC movement, pooling of secretions in the valleculae and pyriforms with gross aspiration, decreased laryngeal sensation, weak pharyngeal squeeze. Luis mason was called 02/16 for desats with increased oxygen requirements. CT PE was negative but showed opacities in BLLL. LE dopplers were negative for DVTs. Given concern for aspiration PNA and increasing o2 demand, patient was transferred to NSU 02/17 on HF NC at 100% FiO2, dobhoff was placed. Patient was started on vanc, azithro, metronidazole, and cefepime on 02/17 for aspiration pna coverage (penicillin allergy). Goals of care discussion resulted in DNR/DNI. 02/19 GI was consulted for PEG tube placement. Patient was stable over the weekend and PEG was placed Wednesday 02/21. Shortly after, luis mason was called for desats to 76% on 40%VM. He was placed on 100%NRB with improvement to 88%. Patient was accepted to MICU for further management of hypoxic respiratory failure. 02/16 TTE 1. The left ventricular systolic function is normal with a 55-60% estimated ejection fraction. 2. Spectral Doppler shows an impaired relaxation pattern of left ventricular diastolic filling. 3. There is moderate concentric left ventricular hypertrophy. 02/17 Venous duplex CONCLUSIONS: Right Lower Venous: No evidence of acute deep vein thrombus visualized in the right lower extremity. Left Lower Venous: No evidence of acute deep vein thrombus visualized in the left lower extremity. PMH: DM HTN meningioma COPD CYNTHIA PSH: craniotomy 2013, 2018 Home Meds: Insulin metformin amlodipine lisinopril FH: not h/o brain masses Social: everyday smoker Comorbidities: Comorbid Conditionschronic obstructive pulmonary disease COPDunknown Allergies: Codeine Sulfate: Unknown penicillin: Unknown insulin: Unknown Intolerances: Aspir 81: GI Upset Medications Prior to Admission: amLODIPine 10 mg oral tablet: 1 tab(s) orally once a day (at bedtime) albuterol: inhaled prn, As Needed hydroCHLOROthiazide 25 mg oral tablet: 1 tab(s) orally once a day (at bedtime) lisinopril 30 mg oral tablet: orally once a day (at bedtime) mometasone 220 mcg/inh inhalation aerosol powder: inhaled 2 times a day atorvastatin 40 mg oral tablet: orally once a day (at bedtime) divalproex sodium 500 mg oral tablet, extended release: orally once a day (at bedtime) NovoLOG Mix 70/30 FlexPen: 8 unit(s) subcutaneous 3 times a day metFORMIN 1000 mg oral tablet: 1 tab(s) orally 2 times a day RisperDAL 3 mg oral tablet: orally once a day (at bedtime) Lantus 100 units/mL subcutaneous solution: 40 unit(s) subcutaneous once a day (at bedtime) Melatonin: orally once a day (at bedtime) traZODone 100 mg oral tablet: 1 orally once a day (at bedtime). Objective: Objective Information: Objective Information T PRBPSpO2 Value36.2917400/6295% Date/Time02/22 0: 3: 3: 3:001 3:00 Range(36.6C - 36.9C ) (62 - 103 ) (15 - 27 ) (85 - 149 )/ (58 - 97 ) (87% - 98% ) As of 22-Feb-2018 04:00:00, patient is on 60 L/min of oxygen via airvo. Highest temp of 36.9 C was recorded at 02/21 7:17 Pain with Activity reported at 02/22 4:00: 0 Pain at Rest reported at 02/22 4:00: 0 ---- Intake and Output ----- Mn/Dy/Year TimeIntakeOutputNet Feb 20, 2018 10:00 [id number] Feb 20, 2018 2:00 [id number] Feb 20, 2018 6:00 [id number] The Intake and Output Totals for the last 24 hours are: IntakeOutputNet [id number] Physical Exam: Neurological: General - NAD, sitting comfortably in bed. Opens eyes and tracks with eyes but has difficulty responding HEENT - PERRL, EOMI, MMM CV - RRR, no m/r/g appreciated Pulm - absent lung sounds in left lung, inspiratory crackles in right lung base Abd - +BS, soft, nttp Ext - no swelling Neuro - left facial droop (baseline per neurosurg), dysarthria. No new focal deficit. Medications: Medications: Continuous Medications 1. Sodium Chloride 0.9% Infusion: 1000 mL IntraVenous <Continuous> Scheduled Medications 1. Albuterol 2.5mg - Ipratropium 0.5 mg/ 3mL Neb Soln: 3 mL Inhalation Every 4 Hours 2. amLODIPine: 10 mg Oral Daily 3. Atorvastatin: 40 mg Oral Daily 4. Azithromycin: 500 mg Feeding tube Every 24 Hours 5. Budesonide 0.25 mg/ 2 mL Nebulizer Soln: 2 mL Inhalation Every 12 Hours 6. Cefepime 2 gram IVPB/ Premixed Soln 100 mL: 100 mL IntraVenous Piggyback Every 8 Hours 7. Docusate: 100 mg Oral 2 Times a Day 8. Docusate Oral Liquid: 100 mg Oral 2 Times a Day 9. Esomeprazole Oral Packet: 40 mg NasoGastric Tube 2 Times a Day 10. guaiFENesin Oral Liquid: 400 mg Oral Every 6 Hours 11. Heparin SubCutaneous: 5000 unit(s) SubCutaneous Every 8 Hours 12. hydroCHLOROthiazide: 25 mg Oral Daily 13. Insulin Glargine (Lantus) Injectable: 20 unit(s) SubCutaneous At Bedtime 14. Insulin Lispro Moderate Corrective Scale: unit(s) SubCutaneous Every 4 Hours 15. Lisinopril: 30 mg Oral Daily 16. metroNIDAZOLE: 500 mg Feeding tube Every 8 Hours 17. Nicotine 14 mg/ 24 hour TransDermal: 1 patch TransDermal Every 24 Hours 18. risperiDONE: 3 mg Oral At Bedtime 19. Sennosides: 2 tablet(s) Oral Daily 20. Silodosin (NON - Formulary): 8 mg NasoGastric Tube Daily 21. Sodium Chloride 0.9% Injectable Flush: 10 mL IntraVenous Flush Every 12 Hours 22. Tiotropium 18 micrograms/ Inhalation: 1 inhalation Inhalation Every 24 Hours 23. traZODone: 150 mg Oral At Bedtime 24. Valproic Acid IV Piggy Back (Depacon): 250 mg IntraVenous Piggyback Every 12 Hours 25. Vancomycin IV Piggy Back: 1.5 gram(s) IntraVenous Piggyback Every 12 Hours PRN Medications 1. Acetaminophen: 650 mg Oral Every 6 Hours 2. Albuterol 2.5mg - Ipratropium 0.5 mg/ 3mL Neb Soln: 3 mL Inhalation Every 2 Hours 3. Bisacodyl Rectal: 10 mg Rectal Daily 4. Dextrose 50% in Water Injectable: 25 gram(s) IntraVenous Push Every 15 Minutes 5. Fleet Adult (Sodium Phosphate) Rectal: 1 enema Rectal Daily 6. Glucagon Injectable: 1 mg IntraMuscular Every 15 Minutes 7. Heparin Flush 10 unit/ mL PF Injectable PRN: 5 mL IntraVenous Flush According to Flush Policy 8. hydrALAZINE Injectable: 10 mg IntraVenous Push Every 6 Hours 9. Lidocaine 1% Injectable (PICC KIT): 1 mL IntraDermal Once 10. Morphine Injectable: 4 mg IntraVenous Push Every 3 Hours 11. Ondansetron Injectable: 4 mg IntraVenous Push Every 6 Hours 12. oxyCODONE Immediate Release: 5 mg Oral Every 4 Hours 13. oxyCODONE Immediate Release: 10 mg Oral Every 4 Hours 14. Polyethylene Glycol: 17 gram(s) Oral Daily Currently Suspended Medications 1. Divalproex Sodium Ext Rel (Depakote ER): 500 mg Oral Every 24 Hours Recent Lab Results: Results: CBC: 02/22/2018 02:37 \ Hgb / \ 13.3 L / WBC Plt 29.7 H 232 / Hct \ / 41.1 \ RBC: 4.80 MCV: 86 Neutrophil %: 84.3 Recent Arterial Blood Gas Results 02/22/2018 03:45 [id number] 24 h range: ( 50 - 101 ) pH7.42 24 h range: ( 7.41 - 7.42 ) [id number] 24 h range: ( 47 - 49 ) SO299 24 h range: ( 87 - 99 ) Base Excess5.4 24 h range: ( 4.2 - 5.4 ) Yedlmivnoaz34.1 24 h range: ( 29.8 - 31.1 ) Results: Impression: [Interval volume loss and atelectasis of the left lung, which shift of mediastinal silhouette to the left. Right lung is clear. No sizable pneumothorax. UNSIGNED REPOR Xray Chest 1 View [Feb 21 2018 11:40PM] Assessment and Plan: Neurology: Diagnosis: 67 year old man with HTN, DM, COPD, tobacco abuse, CYNTHIA, hypoxic episodes, meningioma s/p resection 02/11 with post-op dysphagia and dysarthria presenting with hypoxic respiratory failure requiring HF NC at 30L 55%FiO2. Suspected worsening aspiration PNA with lung collapse. CPAP avoided 2/2 secretions and aspiration risk. Patient is currently DNR/DNI. Neuro: 02/11 s/p L crani for tumor resection. 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 S/p PEG 02/21 Pulm: #acute hypoxic and hypercapnic respiratory failure - COPD exacerbation vs. Aspiration PNA vs. decreased respiratory drive from brainstem injury #COPD: - Duonebs q4 - c/w pulmicort - Finished solumedrol taper, consider restarting #Concern for aspiration PNA v. aspiration pneumonitis - Keep HOB 30 degrees - Suctioning. 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 There is continued risk of aspiration with PEG. Discuss with family in AM. Renal/: - Daily I/O - On silodosin Hematologic: No active issues ID: #Possible aspiration PNA: above Endocrine: #DM: - Home lantus 40 - On lantus 20 daily - SSI Other: Smoker. on nicotine patch F - maintenance NS 75cc/hr E - replete as needed N - NPO, f/u with GI and family regarding PEG use and risk for aspiration PPx - subq heparin DNR/DNI Code Status: Code StatusDNAR with Added Limitations Signatures/Attestation/Certification: Attending AttestationI saw and evaluated the patient. I personally obtained the gonzalez and critical portions of the history and physical exam or was physically present for gonzalez and critical portions performed by the resident/fellow. I reviewed the resident/fellows documentation and discussed the patient with the resident/fellow. I agree with the resident/fellows medical decision making as documented in the residents note. I personally evaluated the patient (as noted in the above attestation) on 22-Feb-2018 Critical Care PatientI have reviewed and evaluated the most recent data and results, personally examined the patient, and formulated the plan of care as presented above. This patient was critically ill and required continued critical care treatment. Teaching and any separately billable procedures are not included in the time calculation. Billing Provider Critical Care Time50 minute(s) Primary Critical Care Issue/Treatment (See Assessment and Plan for greater detail)-- This patient has impending or acute respiratory failure. We are treating with appropriate medications, ventilatory and/or oxygenating support, as indicated, as well as intensive monitoring. Please see assessment and plan above for greater detail.; -- This patient has significantly altered mental status (delirium, encephalopathy, coma, or anoxic brain damage). We are treating with appropriate medications, hemodynamic support, ventilatory and/or oxygenating support, as indicated, as well as doing intensive diagnostic evaluation and neurological monitoring. Please see assessment and plan above for greater detail. Attending Provider Inpatient Certification StatementI certify this patients need for inpatient care based on the above documentation including; the order to admit as inpatient, the anticipated length of stay, diagnosis, problem list and plan of care, and discharge plan. Electronic Signatures: Antoinette Pino) (Signed 22-Feb-2018 19:10) Authored: Comorbidities, Assessment and Plan, Signatures/Attestation/Certification Co-Signer: Service, History of Present Illness, Allergies, Medications Prior to Admission, Objective, Assessment and Plan, Signatures/Attestation/Certification Nasr, Celia C (MD (Resident)) (Signed 22-Feb-2018 05:12) Authored: Service, History of Present Illness, Allergies, Medications Prior to Admission, Objective, Assessment and Plan, Signatures/Attestation/Certification Last Updated: 22-Feb-2018 19:10 by Antoinette Pino) ARTERIAL FULL PANEL Collected: 02/22/2018 Status: F Source: [facility] 3:45 AM [facility]OSPITALS REPOSITORY TYPE CODE TESTS RESULT OUT OF REFERENCE UNITS RANGE LAB PHART(LOIN 7.38 - 7.42 C) pH 7.42 LAB PCO2A(LOIN 38 - 42 mmHg C) PCO2 High 48 LAB PO2A(LOINC 85 - 95 mmHg ) PO2 High 101 LAB TEMP(LOINC degrees C ) PATIENT TEMPERATURE 37.0 Result Comment: NOTE: PATIENT RESULTS ARE NOT CORRECTED FOR TEMPERATURE. LAB FIO2(LOINC) % FIO2 100 LAB SO2%A(LOINC) 94 - 100 % SO2 99 LAB HCTN(LOINC) 41.0 - % 52.0 HCT 45.0 LAB SODN(LOINC) 136 - 145 mmol/L Low SODIUM 127 LAB POTN(LOINC) 3.5 - 5.3 mmol/L POTASSIUM High 5.9 LAB CHLN(LOINC) 98 - 107 mmol/L Low CHLORIDE 97 LAB IONCA(LOINC) 1.10 - mmol/L 1.33 High CALCIUM,IONIZED 1.37 LAB GLUN(LOINC) 74 - 99 mg/dL GLUCOSE High 184 LAB LACTN(LOINC) 0.4 - 2.0 mmol/L LACTATE 0.6 LAB BSEXB(LOINC) -2.0 - 3.0 mmol/L BASE High EXCESS-BLOOD 5.4 LAB BICAR(LOINC) 22.0 - mmol/L 26.0 BICARB, High CALCULATED 31.1 LAB HGBNC(LOINC) 13.5 - g/dL 17.5 HGB,CALCULATED 15.3 LAB ANGPN(LOINC) 10 - 25 mmol/L Low ANION GAP 5 Performed By: #### AFPA3 #### [facility] [address] [place] [address] CBC AND DIFFERENTIAL Collected: 02/22/2018 Status: F Source: [facility] 2:37 AM [facility]OS[facility]ITALS REPOSITORY TYPE CODE TESTS RESULT OUT OF REFERENCE UNITS RANGE LAB WBCR(LOINC 4.4 - 11.3 x10E9/L ) WBC High 29.7 LAB NRBC(LOINC 0.0-0.0 /100 WBC ) NUCLEATED RBC 0.0 LAB RBCCT(LOIN 4.50 - 5.90 x10E12/L C) RBC 4.80 LAB HGB(LOINC) 13.5 - 17.5 g/dL Low HGB 13.3 LAB HCT(LOINC) 41.0 - 52.0 % HCT 41.1 LAB MCV(LOINC) 80 - 100 fL MCV 86 LAB MCHC2(LOIN 32.0 - 36.0 g/dL C) MCHC 32.4 LAB PLTCT(LOIN 150 - 450 x10E9/L C) PLT 232 LAB RDWCV(LOIN 11.5 - 14.5 % C) RDW-CV 14.3 LAB NEUT(LOINC 40.0 - 80.0 % ) % NEUTROPHIL 84.3 LAB IG(LOINC) 0.0 - 0.9 % % AUTOMATED 3.2 IMMATURE GRAN Result Comment: Percent differential counts (%) should be interpreted in the context of the absolute cell counts (cells/L). LAB LYMPH(LOINC) 13.0 - 44.0 % % LYMPHOCYTE 4.0 LAB MONO(LOINC) 2.0 - 10.0 % % MONOCYTE 8.0 LAB EOS(LOINC) 0.0 - 6.0 % % EOSINOPHIL 0.1 LAB BASO(LOINC) 0.0 - 2.0 % % BASOPHIL 0.4 LAB #NEUT(LOINC) 1.20 - 7.70 x10E9/L NEUTROPHIL High 25.01 LAB #LYMP(LOINC) 1.20 - 4.80 x10E9/L LYMPHOCYTE 1.20 LAB #MONO(LOINC) 0.10 - 1.00 x10E9/L MONOCYTE High 2.36 LAB #EOS(LOINC) 0.00 - 0.70 x10E9/L EOSINOPHIL 0.03 LAB #BASO(LOINC) 0.00 - 0.10 x10E9/L BASOPHIL High 0.11 Performed By: #### CBCDF #### [facility] [address] [place] [address] RENAL FUNCTION PANEL Collected: 02/22/2018 Status: F Source: [facility] 2:37 AM [facility]OS[facility]ITALS REPOSITORY TYPE CODE TESTS RESULT OUT OF REFERENCE UNITS RANGE LAB GLU(LOINC) 74 - 99 mg/dL GLUCOSE High 164 LAB SOD(LOINC) 136 - 145 mmol/L Low SODIUM 130 LAB K(LOINC) 3.5 - 5.3 mmol/L POTASSIUM High 5.5 LAB CHLOR(LOIN 98 - 107 mmol/L C) Low CHLORIDE 96 LAB BIC(LOINC) 21 - 32 mmol/L BICARBONATE 29 LAB ANGAP(LOIN 10 - 20 mmol/L C) ANION GAP 11 LAB UREA(LOINC 6 - 23 mg/dL ) UREA High NITROGEN 47 LAB CREA(LOINC 0.50 - 1.30 mg/dL ) CREATININE 1.19 LAB GFRFN(LOIN >60 mL/min/1.7 C) 3m2 GFR-NON AM. >60 LAB GFRAA(LOIN >60 mL/min/1.7 C) 3m2 GFR- AM. >60 Result Comment: CALCULATIONS OF ESTIMATED GFR ARE PERFORMED USING THE MDRD STUDY EQUATION FOR THE IDMS-TRACEABLE CREATININE METHODS. CLIN CHEM 2007;53:766-72 LAB CA(LOINC) 8.6 - 10.6 mg/dL CALCIUM 9.3 LAB PHOS(LOINC) 2.5 - 4.9 mg/dL PHOSPHORUS 2.9 Result Comment: The performance characteristics of phosphorus testing in heparinized plasma have been validated by the individual laboratory site where testing is performed. Testing on heparinized plasma is not approved by the FDA; however, such approval is not necessary. LAB ALB(LOINC) 3.4 - 5.0 g/dL Low ALBUMIN 2.6 Performed By: #### RENAL #### [facility] [address] [place] [address] PROCALCITONIN Collected: 02/22/2018 Status: F Source: [facility] 2:37 AM [facility] REPOSITORY TYPE CODE TESTS RESULT OUT OF RANGE REFERENCE UNITS LAB PCALC(SHAKEEL <=0.07 ng/mL NC) PROCALCITONIN Abnormal 0.15 Result Comment: Note new reference range and methodology as of 06/29/2017. . Procalcitonin (PCT) results measured serially can aid in decision-making for antibiotic discontinuation in patients with suspected or confirmed sepsis in conjunction with additional clinical information. Antibiotic discontinuation may be considered with a change in PCT of >80% from the peak result or when PCT falls below 0.50 ng/mL. . Procalcitonin results should not be used in isolation but should be interpreted in conjunction with additional clinical and laboratory findings. Procalcitonin results should not be used to guide the initiation of antibiotic therapy. . Falsely low PCT values in the presence of bacterial infection may occur in early infection, with atypical pathogens, localized infections, and subacute infectious endocarditis. . Falsely elevated results outside of severe bacterial infection/sepsis may be seen in patients with renal failure or insufficiency, severe trauma or chao, recent major abdominal/cardiac surgery, acute multi-organ failure, rarely in patients with medullary thyroid carcinoma and rare neuroendocrine tumors, and non-specific interfering antibodies (heterophile antibodies, rheumatoid factor, human anti-mouse antibodies (HAMA), etc). . Performance of the PCT test in pediatric patients (<18yo), women, immunocompromised patients, and patients on immunomodulatory medications has not been evaluated. Performed By: #### PCALC #### [facility] [address] [facility] [address] [address] [address] [place] [id number] Observed: 02/22/2018 Status: F Source: [facility] BLOOD CULTURE, 2:37 AM HOSPITALS REPOSITORY BACTERIAL PATIENT: DIPESH BERMUDEZ LOCATION: [facility] BILL#: [id number] : 54 AGE: SEX: M ORDERED BY: CELIA SAMAYOA SOURCE: Blood COLLECTED: 02/22/18 02:37 ANTIBIOTICS AT [facility].: RECEIVED : 02/22/18 07:19 SITE: PERIPHERAL R E S U L T S BLOOD CULTURE, BACTERIAL FINAL 02/27/18 07:42 No Growth at 1 days No Growth at 2 days No Growth at 3 days No Growth at 4 days NO GROWTH - FINAL REPORT Performed By: #### BLDC #### [facility] [address] [facility] [place] [address] DAILY PROGRESS Observed: 02/22/2018 Status: COMPLETED Source: [facility] NOTE-NEUROSURGERY 12:52 AM HOSPITALS REPOSITORY Service: Neurosurgery Subjective Data: DIPESH BERMUDEZ is a 67 year old Male who is Hospital Day # 12 and POD #10 for left retrosigmoid craniotomy for tumor resection. 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 vMRI done 02/11 s/p L crani for tumor resection. 02/12 MRI POC 02/13 Code White 02/17 code white, concern for aspiration, transferred to NSU for increased O2 requirement. CTH/CT chest stable Plan - floor - pain control - continue antibiotics for presumed aspiration - MANAGER PROCESS IMPROVEMENT-NPO (repeat swallow eval) - pulmonary recs - GI recs: PEG 02/21 - PTOT-rehab - teds. scds, SQH - following PEG will be medically ready for discharge Electronic Signatures: Alvina Garcia) (Signed 22-Feb-2018 22:34) Authored: Signature/Cosignature/Attestation Co-Signer: Service, Subjective Data, Objective Data, Assessment and Plan, Signature/Cosignature/Attestation Troy Abraham (Resident)) (Signed 21-Feb-2018 18:59) Authored: Service, Subjective Data, Objective Data, Assessment and Plan, Signature/Cosignature/Attestation Last Updated: 22-Feb-2018 22:34 by Alvina Garcia) GLUCOSE-POCT Collected: 02/21/2018 Status: F Source: [facility] 11:44 PM HOSPITALS REPOSITORY TYPE CODE TESTS RESULT OUT OF RANGE REFERENCE UNITS LAB GLUP(LOINC) 74 - 99 mg/dL High 166 GLUCOSE-POCT Performed By: #### GLUPO #### [facility] [address] [place] [address] TH CHEST 1 VIEW Observed: 02/21/2018 Status: F Source: [facility] 10:47 PM HOSPITALS REPOSITORY Patient Name: DIPESH BERMUDEZ STUDY: TH CHEST 1 VIEW; 02/21/2018 10:47 pm INDICATION: Signs/Symptoms: evaluate new oxygen requirement. COMPARISON: CT chest dated 02/17/2018; one view of the chest dated 02/17/2018 ACCESSION NUMBER(S): [id number] ORDERING CLINICIAN: ZORAIDA SIGALA FINDINGS: Interval removal of previously visualized enteric tube. There is new leftward mediastinal shift with near complete obscuration of left heart border. The patient is status post left lower lobectomy. There has been interval left lung volume loss with new left mid basilar lung opacification, likely representing postobstructive atelectasis secondary to mucous plugging seen on recent CT scan 02/17/2018. Small left pleural effusion or superimposed infectious process is not excluded. Unchanged presumed mild right basilar atelectasis. No sizable right-sided pleural effusion. No pneumothorax. No acute osseous abnormality. IMPRESSION: 1. New left lung volume loss with left mid basilar lung opacification, likely representing postobstructive atelectasis secondary to mucous plugging, better seen on recent CT scan 02/17/2018. Small left pleural effusion or superimposed infectious process is not excluded. I personally reviewed the images/study and resident's interpretation and I agree with the findings as stated. This study was performed , analyzed and interpreted at [facility], [place], [place]. Electronically signed by: LEXI LI MD ARTERIAL BLOOD GAS Collected: 02/21/2018 Status: F Source: [facility] 10:07 PM [facility]OSPITALS REPOSITORY TYPE CODE TESTS RESULT OUT OF REFERENCE UNITS RANGE LAB PHART(LOIN 7.38 - 7.42 C) pH 7.41 LAB PCO2A(LOIN 38 - 42 mmHg C) PCO2 High 47 LAB PO2A(LOINC 85 - 95 mmHg ) PO2 Low 62 LAB TEMP(LOINC degrees C ) PATIENT TEMPERATURE 37.0 Result Comment: NOTE: PATIENT RESULTS ARE NOT CORRECTED FOR TEMPERATURE. LAB SO2%A(LOINC) 94 - 100 % SO2 96 LAB BSEXB(LOINC) -2.0 - 3.0 mmol/L BASE High EXCESS-BLOOD 4.2 LAB BICAR(LOINC) 22.0 - mmol/L 26.0 BICARB, High CALCULATED 29.8 Performed By: #### [email or web address] #### [facility] [address] [place] [address] ARTERIAL BLOOD GAS Collected: 02/21/2018 Status: F Source: [facility] 9:05 PM [facility]OSPITALS REPOSITORY TYPE CODE TESTS RESULT OUT OF REFERENCE UNITS RANGE LAB PHART(LOIN 7.38 - 7.42 C) pH 7.41 LAB PCO2A(LOIN 38 - 42 mmHg C) PCO2 High 49 LAB PO2A(LOINC 85 - 95 mmHg ) PO2 Low 50 LAB TEMP(LOINC degrees C ) PATIENT TEMPERATURE 37.0 Result Comment: NOTE: PATIENT RESULTS ARE NOT CORRECTED FOR TEMPERATURE. LAB SO2%A(LOINC) 94 - 100 % Low SO2 87 LAB BSEXB(LOINC) -2.0 - 3.0 mmol/L BASE High EXCESS-BLOOD 5.2 LAB BICAR(LOINC) 22.0 - mmol/L 26.0 BICARB, High CALCULATED 31.1 Performed By: #### BLGA1 #### [facility] [address] [place] [address] GLUCOSE-POCT Collected: 02/21/2018 Status: F Source: [facility] 7:02 PM [facility]OSPITALS REPOSITORY TYPE CODE TESTS RESULT OUT OF RANGE REFERENCE UNITS LAB GLUP(LOINC) 74 - 99 mg/dL High 144 GLUCOSE-POCT Performed By: #### GLUPO #### [facility] [address] [place] [address] GLUCOSE-POCT Collected: 02/21/2018 Status: F Source: [facility] 3:52 PM [facility]OSPITALS REPOSITORY TYPE CODE TESTS RESULT OUT OF RANGE REFERENCE UNITS LAB GLUP(LOINC) 74 - 99 mg/dL High 180 GLUCOSE-POCT Performed By: #### GLUPO #### [facility] [address] [place] [address] NUTRITION THERAPY-FOLLOW Observed: 02/21/2018 Status: UNK Source: [facility] 2:53 PM HOSPITALS REPOSITORY Assessment Subjective/Objective: Note Type: Follow Up Note Authored by: Registered Dietitian Career Placement Specialist Pager Number: [phone] Nutrition Note: The patient is a 67 year old male on hospital day #12, POD #10 for left retrosigmoid craniotomy for tumor resection. Pt seen today for follow up nutrition assessment. Events noted since initial assessment: 02/15: dobhoff was removed and replaced and then later removed by pt 02/16: MBSS recommending NPO status 02/16-02/17: pt desaturated (possible aspiration) and required ICU transfer 02/19: pt transferred out of NSU to LT9 02/21: PEG placed. Objective Information: Weights: 02/10 99.7 kg 02/20 92.7 kg ---- Intake and Output ----- Mn/Dy/Year TimeIntakeOutputNet Feb 21, 2018 2:00 pm000 Feb 21, 2018 6:00 [id number] Feb 20, 2018 10:00 [id number] The Intake and Output Totals for the last 24 hours are: IntakeOutputNet [id number] Recent Lab Results: Results: I have reviewed these laboratory results: Glucose_POCT Trending View [id number] 13:01:00 21-Feb-2018 07:19:00 21-Feb-2018 03:11:00 20-Feb-2018 23:38:00 20-Feb-2018 19:10:00 [id number] H 166 H 278 H 264 H 241 H Current Active Medications/PN: hydroCHLOROthiazide, Tablet (ESIDRIX) DOSE = 25 mg Oral Daily, 11-Feb-2018 Bisacodyl Rectal, Suppository (DULCOLAX) DOSE = 10 mg Rectal Daily, PRN if no BM in the previous 36 hours Clinician Notes: once now and daily PRN, 11-Feb-2018 Docusate, Capsule (COLACE) DOSE = 100 mg Oral 2 Times a Day, 11-Feb-2018 Sennosides, Tablet (SENOKOT) DOSE = 2 tablet(s) Oral Daily, 11-Feb-2018 Insulin Glargine (Lantus) Injectable, DOSE = 20 unit(s) SubCutaneous At Bedtime Notes from Pharmacy: HIGH ALERT , 12-Feb-2018 Insulin Lispro Moderate Corrective Scale, Give SubCutaneous Every 4 Hours Hypoglycemia Protocol Call LIP unit(s) if Blood Glucose is between 0 - 70 0 unit(s) if Blood Glucose is between 71 - 150 4 unit(s) if Blood Glucose is between 151 - 200 6 unit(s) if Blood Glucose is between 201 - 250 8 unit(s) if Blood Glucose is between 251 - 300 10 unit(s) if Blood Glucose is between 301 - 350 12 unit(s) if Blood Glucose is between 351 - 400 Notify Physician unit(s) if Blood Glucose is greater than 400, 14-Feb-2018 Esomeprazole Oral Packet, DOSE = 40 mg NasoGastric Tube Daily, 17-Feb-2018 Docusate Oral Liquid, (COLACE) DOSE = 100 mg Oral 2 Times a Day, 19-Feb-2018 Sodium Chloride 0.9% Infusion, IV Bag Volume = 1,000 mL Run at: 75 mL/hr IntraVenous <Continuous>, 16-Feb-2018 Nutrition Orders: Enteral Feeding ([facility]), Routine, Isosource 1.5 Swapnil Rate: ( Continuous & Cycle Only)- mL/hr: 50 ,<Continuous> Route: NG (Nasogastric Tube, Continuous Special Instructions: start @ 10 cc/hr and advance by 10 cc/hr every 2 hours until upto 50, 13-Feb-2018 Enteral Feeding Water Flush, 200, NG (Nasogastric Tube), 4 Times a Day, 13-Feb-2018 NPO, Routine ., 16-Feb-2018 Nutrition Focused Physical Findings: Other Physical Findings: Skin: hemicrani site Edema: +1, trace generalized Estimated Needs: kcals/day: 3609-9427 gms protein/day: 100+ mL fluid/day: 1 ml/kcal or per MD Nutrition Diagnosis: Diagnosis1 ongoing. Dx: Swallowing difficulties. related to recent craniotomy for tumor resection as evidenced by speech recs for pt to remain NPO with need for PEG placement. Nutrition Interventions: Individualized Nutrition Prescription Provided for: enteral nutrition Diet Education: not applicable pt denied questions regarding PEG/enteral feeds Provided Nutrition Support Recommendations: TF w/ 375 ml bolus 4x/day= 2250 kcal, 102 g protein, 1142 ml free H20 Nutrition Goals: Goals: Nutrition Therapy: nutrition support is meeting 75% of nutrient needs, tube feed tolerance, Blood Glucose 80-180 mg/dl, electrolytes within normal limits, maintain stable weight Outcomes Summary: Nutrition Therapy Progress: Nutrition Therapy: no change Outcome Summary: Nutritional Therapy: Swallowing Difficulties NUTRITION RECOMMENDATIONS: Recommendations: 1. Resume enteral feeds as medically appropriate: Isosource 1.5, increase goal rate to 65 ml/hr Maintain 200 ml H20 flush 4x/day 2. Consider changing to bolus regimen: Isosource 1.5 375 ml 4x/day (1.5 cans) 60 ml free H20 flush before and after each bolus 250-300 ml additional H20 flush 2x between boluses Nutrition Therapy Recommendations: Nutrition Therapy Recommendations: see RDN note Dietitian Monitoring and Evaluation Plan: Monitoring and Evaluation Plan: Nutrition Support tolerance/adequacy, weight trend, stool output, labs Diet Education: Nutrition Education: not appropriate for diet education at this time Electronic Signatures: Ghislaine Oliveira (JORDYN, NOAH) (Signed 21-Feb-2018 15:16) Authored: Assessment Subjective/Objective, Nutrition Focused Physical Findings, Estimated Needs, Nutrition Diagnosis, Nutrition Interventions, Nutrition Goals, Nutrition Recommendations, Dietitian Monitoring and Evaluation Plan, Diet Education Last Updated: 21-Feb-2018 15:16 by Ghislaine Oliveira (JORDYN, NOAH) DAILY PROGRESS Observed: Status: COMPLETED Source: [facility] NOTE-GASTROENTEROLOGY 02/21/2018 1:06 PM HOSPITALS REPOSITORY Service: Gastroenterology Subjective Data: DIPESH BERMUDEZ is a 67 year old Male who is Hospital Day # 12 and POD #10 for left retrosigmoid craniotomy for tumor resection. Additional Information: No abdominal pain. No cute events over night Objective Data: Objective Information: ---- Intake and Output ----- Mn/Dy/Year TimeIntakeOutputNet Feb 21, 2018 6:00 [id number] Feb 20, 2018 10:00 [id number] Feb 20, 2018 2:00 [id number] The Intake and Output Totals for the last 24 hours are: IntakeOutputNet [id number] Physical Exam: Constitutional: A/O x3. NAD Respiratory/Thorax: Coarse breath sounds. No wheezing Cardiovascular: S1, S2, no murmurs. RRR Gastrointestinal: Nondistended, soft, non-tender, no rebound tenderness or guarding, no masses palpable, no organomegaly, +BS, no bruits Extremities: No edema. Skin: No rashes Medication: Medications: Continuous Medications 1. Sodium Chloride 0.9% Infusion: 1000 mL IntraVenous <Continuous> Scheduled Medications 1. Albuterol 2.5mg - Ipratropium 0.5 mg/ 3mL Neb Soln: 3 mL Inhalation Every 6 Hours 2. amLODIPine: 10 mg Oral Daily 3. Atorvastatin: 40 mg Oral Daily 4. Azithromycin: 500 mg Feeding tube Every 24 Hours 5. Budesonide 0.25 mg/ 2 mL Nebulizer Soln: 2 mL Inhalation Every 12 Hours 6. Cefepime 2 gram IVPB/ Premixed Soln 100 mL: 100 mL IntraVenous Piggyback Every 8 Hours 7. Docusate: 100 mg Oral 2 Times a Day 8. Docusate Oral Liquid: 100 mg Oral 2 Times a Day 9. Esomeprazole Oral Packet: 40 mg NasoGastric Tube Daily 10. Heparin SubCutaneous: 5000 unit(s) SubCutaneous Every 8 Hours 11. hydroCHLOROthiazide: 25 mg Oral Daily 12. Insulin Glargine (Lantus) Injectable: 20 unit(s) SubCutaneous At Bedtime 13. Insulin Lispro Moderate Corrective Scale: unit(s) SubCutaneous Every 4 Hours 14. Lisinopril: 30 mg Oral Daily 15. metroNIDAZOLE: 500 mg Feeding tube Every 8 Hours 16. Nicotine 14 mg/ 24 hour TransDermal: 1 patch TransDermal Every 24 Hours 17. risperiDONE: 3 mg Oral At Bedtime 18. Sennosides: 2 tablet(s) Oral Daily 19. Silodosin (NON - Formulary): 8 mg NasoGastric Tube Daily 20. Sodium Chloride 0.9% Injectable Flush: 10 mL IntraVenous Flush Every 12 Hours 21. Tiotropium 18 micrograms/ Inhalation: 1 inhalation Inhalation Every 24 Hours 22. traZODone: 150 mg Oral At Bedtime 23. Valproic Acid IV Piggy Back (Depacon): 250 mg IntraVenous Piggyback Every 12 Hours 24. Vancomycin IV Piggy Back: 1.5 gram(s) IntraVenous Piggyback Every 12 Hours PRN Medications 1. Acetaminophen: 650 mg Oral Every 6 Hours 2. Albuterol 2.5mg - Ipratropium 0.5 mg/ 3mL Neb Soln: 3 mL Inhalation Every 2 Hours 3. Bisacodyl Rectal: 10 mg Rectal Daily 4. Dextrose 50% in Water Injectable: 25 gram(s) IntraVenous Push Every 15 Minutes 5. Fleet Adult (Sodium Phosphate) Rectal: 1 enema Rectal Daily 6. Glucagon Injectable: 1 mg IntraMuscular Every 15 Minutes 7. guaiFENesin Oral Liquid: 400 mg Oral Every 8 Hours 8. Heparin Flush 10 unit/ mL PF Injectable PRN: 5 mL IntraVenous Flush According to Flush Policy 9. hydrALAZINE Injectable: 10 mg IntraVenous Push Every 6 Hours 10. Lidocaine 1% Injectable (PICC KIT): 1 mL IntraDermal Once 11. Morphine Injectable: 4 mg IntraVenous Push Every 3 Hours 12. Ondansetron Injectable: 4 mg IntraVenous Push Every 6 Hours 13. oxyCODONE Immediate Release: 5 mg Oral Every 4 Hours 14. oxyCODONE Immediate Release: 10 mg Oral Every 4 Hours 15. Polyethylene Glycol: 17 gram(s) Oral Daily Currently Suspended Medications 1. Divalproex Sodium Ext Rel (Depakote ER): 500 mg Oral Every 24 Hours Assessment and Plan: Assessment: 67 year old man with HTN, DM, COPD, tobacco abuse, CYNTHIA, hypoxic episodes (aspiration pneumonitis) with previous meningioma resection presented to [facility] because he is found to have enlargement of the residual mass with worsening diplopia and unsteady gait. He then underwent left retrosigmoid craniotomy for tumor resection on 02/11/18. On 02/16 patient was complaining of dysphagia. MBS done and per speech note: presents with significantly impaired bolus formation/control, resulting in premature spillage into the pharynx across tested consistencies. Significantly delayed swallow onset with decreased laryngeal elevation/anterior pull and laryngeal vestibular closure resulting in SILENT ASPIRATION in moderate amounts during the swallow with thin liquids and after the swallow with nectar and honey thick liquids 2/2 pharyngeal residue. GI consulted for PEG tube placement. PEG placed today. PEG check performed. Bumper rotatable at 3.5 cm. While doing the EGD, LA grade D esophagitis was found. Please place patient on PPI BID x3 months with plan for follow up with GI clinic as an outpatient in 3 months. Signature/Cosignature/Attestation: Attending AttestationI saw and evaluated the patient. I personally obtained the gonzalez and critical portions of the history and physical exam or was physically present for gonzalez and critical portions performed by the resident/fellow. I reviewed the resident/fellows documentation and discussed the patient with the resident/fellow. I agree with the resident/fellows medical decision making as documented in the residents note. I personally evaluated the patient (as noted in the above attestation) on 21-Feb-2018 Electronic Signatures: Eliana Torres (Fellow)) (Signed 21-Feb-2018 18:16) Authored: Service, Subjective Data, Objective Data, Assessment and Plan Pillo Callaway Chi) (Signed 06-Mar-2018 17:44) Authored: Assessment and Plan, Signature/Cosignature/Attestation Co-Signer: Assessment and Plan Last Updated: 06-Mar-2018 17:44 by Pillo Callaway Chi) GLUCOSE-POCT Collected: 02/21/2018 Status: F Source: [facility] 1:01 PM HOSPITALS REPOSITORY TYPE CODE TESTS RESULT OUT OF RANGE REFERENCE UNITS LAB GLUP(LOINC) 74 - 99 mg/dL High 128 GLUCOSE-POCT Performed By: #### GLUPO #### [facility] [address] [place] [address] DAILY PROGRESS Observed: 02/21/2018 Status: COMPLETED Source: [facility] NOTE-NEUROSURGERY 9:50 AM HOSPITALS REPOSITORY Service: Neurosurgery Subjective Data: DIPESH BERMUDEZ is a 67 year old Male who is Hospital Day # 12 and POD #10 for left retrosigmoid craniotomy for tumor resection. 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 vMRI done 02/11 s/p L crani for tumor resection. 02/12 MRI POC 02/13 Code White / code white, concern for aspiration, transferred to NSU for increased O2 requirement. CTH/CT chest stable Plan - floor - pain control - continue antibiotics for presumed aspiration - MANAGER PROCESS IMPROVEMENT-NPO (repeat swallow eval) - pulmonary recs - GI recs: PEG 02/21 - PTOT-rehab - teds. scds, [facility] - following PEG will be medically ready for discharge Electronic Signatures: Alvina Garcia) (Signed 22-Feb-2018 22:33) Authored: Signature/Cosignature/Attestation Co-Signer: Service, Subjective Data, Objective Data, Assessment and Plan, Signature/Cosignature/Attestation Reginald Rubi (Resident)) (Signed 21-Feb-2018 09:52) Authored: Service, Subjective Data, Objective Data, Assessment and Plan, Signature/Cosignature/Attestation Last Updated: 22-Feb-2018 22:33 by Alvina Garcia) GLUCOSE-POCT Collected: 02/21/2018 Status: F Source: [facility] 7:19 AM HOSPITALS REPOSITORY TYPE CODE TESTS RESULT OUT OF RANGE REFERENCE UNITS LAB GLUP(LOINC) 74 - 99 mg/dL High 166 GLUCOSE-POCT Performed By: #### GLUPO #### [facility] [address] [place] [address] GLUCOSE-POCT Collected: 02/21/2018 Status: F Source: [facility] 3:11 AM HOSPITALS REPOSITORY TYPE CODE TESTS RESULT OUT OF RANGE REFERENCE UNITS LAB GLUP(LOINC) 74 - 99 mg/dL High 278 GLUCOSE-POCT Performed By: #### GLUPO #### [facility] [address] [place] [address] GLUCOSE-POCT Collected: 02/20/2018 Status: F Source: [facility] 11:38 PM HOSPITALS REPOSITORY TYPE CODE TESTS RESULT OUT OF RANGE REFERENCE UNITS LAB GLUP(LOINC) 74 - 99 mg/dL High 264 GLUCOSE-POCT Performed By: #### GLUPO #### [facility] [address] [place] [address] GLUCOSE-POCT Collected: 02/20/2018 Status: F Source: [facility] 7:10 PM HOSPITALS REPOSITORY TYPE CODE TESTS RESULT OUT OF RANGE REFERENCE UNITS LAB GLUP(LOINC) 74 - 99 mg/dL High 241 GLUCOSE-POCT Performed By: #### GLUPO #### [facility] [address] [place] [address] GLUCOSE-POCT Collected: 02/20/2018 Status: F Source: [facility] 3:38 PM HOSPITALS REPOSITORY TYPE CODE TESTS RESULT OUT OF RANGE REFERENCE UNITS LAB GLUP(LOINC) 74 - 99 mg/dL High 282 GLUCOSE-POCT Performed By: #### GLUPO #### [facility] [address] [place] [address] DAILY PROGRESS Observed: Status: COMPLETED Source: [facility] NOTE-GASTROENTEROLOGY 02/20/2018 1:23 PM HOSPITALS REPOSITORY Service: Gastroenterology Subjective Data: DIPESH BERMUDEZ is a 67 year old Male who is Hospital Day # 11 and POD #9 for left retrosigmoid craniotomy for tumor resection. Additional Information: No acute events over night Denying complaints. Objective Data: Objective Information: ---- Intake and Output ----- Mn/Dy/Year TimeIntakeOutputNet Feb 20, 2018 6:00 [id number] Feb 19, 2018 10:00 [id number] Feb 19, 2018 2:00 [id number] The Intake and Output Totals for the last 24 hours are: IntakeOutputNet [id number] T PRBPSpO2 [id number]/7293% Date/Time02/20 12: 12: 12: 12: 12:00 Range(36C - 36.9C ) (68 - 79 ) (13 - 19 ) (110 - 149 )/ (62 - 84 ) (90% - 99% ) As of 19-Feb-2018 15:00:00, patient is on 4 L/min of oxygen via nasal cannula. Highest temp of 36.9 C was recorded at 02/19 16:15 Physical Exam: Constitutional: A/O x3. NAD Respiratory/Thorax: Coarse breath sounds. No wheezing Cardiovascular: S1, S2, no murmurs. RRR Gastrointestinal: Nondistended, soft, non-tender, no rebound tenderness or guarding, no masses palpable, no organomegaly, +BS, no bruits Extremities: No edema. Skin: No rashes Medication: Medications: Continuous Medications 1. Sodium Chloride 0.9% Infusion: 1000 mL IntraVenous <Continuous> Scheduled Medications 1. Albuterol 2.5mg - Ipratropium 0.5 mg/ 3mL Neb Soln: 3 mL Inhalation Every 6 Hours 2. amLODIPine: 10 mg Oral Daily 3. Atorvastatin: 40 mg Oral Daily 4. Azithromycin: 500 mg Feeding tube Every 24 Hours 5. Budesonide 0.25 mg/ 2 mL Nebulizer Soln: 2 mL Inhalation Every 12 Hours 6. Cefepime 2 gram IVPB/ Premixed Soln 100 mL: 100 mL IntraVenous Piggyback Every 8 Hours 7. Docusate: 100 mg Oral 2 Times a Day 8. Docusate Oral Liquid: 100 mg Oral 2 Times a Day 9. Esomeprazole Oral Packet: 40 mg NasoGastric Tube Daily 10. Heparin SubCutaneous: 5000 unit(s) SubCutaneous Every 8 Hours 11. hydroCHLOROthiazide: 25 mg Oral Daily 12. Insulin Glargine (Lantus) Injectable: 20 unit(s) SubCutaneous At Bedtime 13. Insulin Lispro Moderate Corrective Scale: unit(s) SubCutaneous Every 4 Hours 14. Lisinopril: 30 mg Oral Daily 15. metroNIDAZOLE: 500 mg Feeding tube Every 8 Hours 16. Nicotine 14 mg/ 24 hour TransDermal: 1 patch TransDermal Every 24 Hours 17. risperiDONE: 3 mg Oral At Bedtime 18. Sennosides: 2 tablet(s) Oral Daily 19. Silodosin (NON - Formulary): 8 mg NasoGastric Tube Daily 20. Sodium Chloride 0.9% Injectable Flush: 10 mL IntraVenous Flush Every 12 Hours 21. Tiotropium 18 micrograms/ Inhalation: 1 inhalation Inhalation Every 24 Hours 22. traZODone: 150 mg Oral At Bedtime 23. Valproic Acid IV Piggy Back (Depacon): 250 mg IntraVenous Piggyback Every 12 Hours 24. Vancomycin IV Piggy Back: 1.5 gram(s) IntraVenous Piggyback Every 12 Hours PRN Medications 1. Acetaminophen: 650 mg Oral Every 6 Hours 2. Albuterol 2.5mg - Ipratropium 0.5 mg/ 3mL Neb Soln: 3 mL Inhalation Every 2 Hours 3. Bisacodyl Rectal: 10 mg Rectal Daily 4. Dextrose 50% in Water Injectable: 25 gram(s) IntraVenous Push Every 15 Minutes 5. Fleet Adult (Sodium Phosphate) Rectal: 1 enema Rectal Daily 6. Glucagon Injectable: 1 mg IntraMuscular Every 15 Minutes 7. Heparin Flush 10 unit/ mL PF Injectable PRN: 5 mL IntraVenous Flush According to Flush Policy 8. hydrALAZINE Injectable: 10 mg IntraVenous Push Every 6 Hours 9. Lidocaine 1% Injectable (PICC KIT): 1 mL IntraDermal Once 10. Morphine Injectable: 4 mg IntraVenous Push Every 3 Hours 11. Ondansetron Injectable: 4 mg IntraVenous Push Every 6 Hours 12. oxyCODONE Immediate Release: 5 mg Oral Every 4 Hours 13. oxyCODONE Immediate Release: 10 mg Oral Every 4 Hours 14. Polyethylene Glycol: 17 gram(s) Oral Daily Currently Suspended Medications 1. Divalproex Sodium Ext Rel (Depakote ER): 500 mg Oral Every 24 Hours Recent Lab Results: Results: I have reviewed these laboratory results: Coagulation Screen 19-Feb-2018 03:41:00 ResultValue Prothrombin Time, Plasma 11.4 International Normalized Ratio, Plasma 1.0 Activated Partial Thromboplastin Time 27 Renal Function Panel 19-Feb-2018 03:41:00 ResultValue Glucose, Serum 190 H NA 136 K 4.5 CL 97 L Bicarbonate, Serum 31 Anion Gap, Serum 13 BUN 54 H CREAT 1.16 GFR-Non >60 GFR- >60 Calcium, Serum 9.4 Phosphorus, Serum 2.7 ALB 2.7 L Complete Blood Count 19-Feb-2018 03:41:00 ResultValue White Blood Cell Count 13.9 H Nucleated Erythrocyte Count 0.0 Red Blood Cell Count 4.89 HGB 13.6 HCT 41.1 MCV 84 MCHC 33.1 PLT 274 RDW-CV 14.1 Assessment and Plan: Assessment: 67 year old man with HTN, DM, COPD, tobacco abuse, CYNTHIA, hypoxic episodes (aspiration pneumonitis) with previous meningioma resection presented to [facility] because he is found to have enlargement of the residual mass with worsening diplopia and unsteady gait. He then underwent left retrosigmoid craniotomy for tumor resection on 02/11/18. On 02/16 patient was complaining of dysphagia. MBS done and per speech note: presents with significantly impaired bolus formation/control, resulting in premature spillage into the pharynx across tested consistencies. Significantly delayed swallow onset with decreased laryngeal elevation/anterior pull and laryngeal vestibular closure resulting in SILENT ASPIRATION in moderate amounts during the swallow with thin liquids and after the swallow with nectar and honey thick liquids 2/2 pharyngeal residue. GI consulted for PEG tube placement. Plan to place PEG on Wednesday 02/21 with anesthesia assistance. Patient is agreeable Please keep patient NPO after midnight tomorrow. Hold TF after midnight. I spoke with sister Nam and updated her. All questions were answered and she is agreeable with the plan. Signature/Cosignature/Attestation: Attending AttestationI saw and evaluated the patient. I personally obtained the gonzalez and critical portions of the history and physical exam or was physically present for gonzalez and critical portions performed by the resident/fellow. I reviewed the resident/fellows documentation and discussed the patient with the resident/fellow. I agree with the resident/fellows medical decision making as documented in the residents note. I personally evaluated the patient (as noted in the above attestation) on 20-Feb-2018 Electronic Signatures: Eliana Torres (Fellow)) (Signed 20-Feb-2018 13:32) Authored: Service, Subjective Data, Objective Data, Assessment and Plan Pillo Callaway Chi) (Signed 06-Mar-2018 17:43) Authored: Assessment and Plan, Signature/Cosignature/Attestation Co-Signer: Service, Subjective Data, Objective Data, Assessment and Plan Last Updated: 06-Mar-2018 17:43 by Pillo Callaway Chi) GLUCOSE-POCT Collected: 02/20/2018 Status: F Source: [facility] 11:56 AM HOSPITALS REPOSITORY TYPE CODE TESTS RESULT OUT OF RANGE REFERENCE UNITS LAB GLUP(LOINC) 74 - 99 mg/dL High 332 GLUCOSE-POCT Performed By: #### GLUPO #### [facility] [address] [place] [address] GLUCOSE-POCT Collected: 02/20/2018 Status: F Source: [facility] 5:43 AM HOSPITALS REPOSITORY TYPE CODE TESTS RESULT OUT OF RANGE REFERENCE UNITS LAB GLUP(LOINC) 74 - 99 mg/dL High 278 GLUCOSE-POCT Performed By: #### GLUPO #### [facility] [address] [place] [address] DAILY PROGRESS Observed: 02/20/2018 Status: COMPLETED Source: [facility] NOTE-NEUROSURGERY 12:51 AM HOSPITALS REPOSITORY Service: Neurosurgery Subjective Data: DIPESH BERMUDEZ is a 67 year old Male who is Hospital Day # 10 and POD #8 for left retrosigmoid craniotomy for tumor resection. 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 vMRI done 02/11 s/p L crani for tumor resection. 02/12 MRI POC 02/13 Code White 10/ code white, concern for aspiration, transferred to NSU for increased O2 requirement. CTH/CT chest stable Plan - tele - pain control - continue antibiotics for presumed aspiration - MANAGER PROCESS IMPROVEMENT-NPO (repeat swallow eval) - pulmonary recs - GI recs: PEG planning - PTOT-rehab - teds. scds, [facility] Electronic Signatures: Alvina Garcia) (Signed 20-Feb-2018 17:18) Authored: Signature/Cosignature/Attestation Co-Signer: Service, Subjective Data, Objective Data, Assessment and Plan, Signature/Cosignature/Attestation Troy Abraham (Resident)) (Signed 19-Feb-2018 18:53) Authored: Service, Subjective Data, Objective Data, Assessment and Plan, Signature/Cosignature/Attestation Last Updated: 20-Feb-2018 17:18 by Alvina Garcia) GLUCOSE-POCT Collected: 02/19/2018 Status: F Source: [facility] 11:48 PM HOSPITALS REPOSITORY TYPE CODE TESTS RESULT OUT OF RANGE REFERENCE UNITS LAB GLUP(LOINC) 74 - 99 mg/dL High 244 GLUCOSE-POCT Performed By: #### GLUPO #### [facility] [address] [place] [address] GLUCOSE-POCT Collected: 02/19/2018 Status: F Source: [facility] 6:58 PM HOSPITALS REPOSITORY TYPE CODE TESTS RESULT OUT OF RANGE REFERENCE UNITS LAB GLUP(LOINC) 74 - 99 mg/dL High 225 GLUCOSE-POCT Performed By: #### GLUPO #### [facility] [address] [place] [address] GLUCOSE-POCT Collected: 02/19/2018 Status: F Source: [facility] 4:35 PM HOSPITALS REPOSITORY TYPE CODE TESTS RESULT OUT OF RANGE REFERENCE UNITS LAB GLUP(LOINC) 74 - 99 mg/dL High 236 GLUCOSE-POCT Performed By: #### GLUPO #### [facility] [address] [place] [id number] CONSULT-GASTROENTEROLOGY Observed: Status: COMPLETED Source: [facility] 02/19/2018 3:07 PM HOSPITALS REPOSITORY Service: Service: Gastroenterology Consult: Consult requested by (Attending Name): Dr. Parada Reason: PEG tube placement History of Present Illness: HPI: 67 year old man with HTN, DM, COPD, tobacco abuse, CYNTHIA, hypoxic episodes (aspiration pneumonitis) with previous meningioma resection presented to [facility] because he is found to have enlargement of the residual mass with worsening diplopia and unsteady gait. He then underwent left retrosigmoid craniotomy for tumor resection on 02/11/18. On 02/16 patient was complaining of dysphagia. MBS done and per speech note: given trials of thin, nectar and honey thick liquids. presents with significantly impaired bolus formation/control, resulting in premature spillage into the pharynx across tested consistencies. Significantly delayed swallow onset with decreased laryngeal elevation/anterior pull and laryngeal vestibular closure resulting in SILENT ASPIRATION in moderate amounts during the swallow with thin liquids and after the swallow with nectar and honey thick liquids 2/2 pharyngeal residue. Given increased amount of pharyngeal residue with thicker viscosities, puree consistency not tested at this time. MANAGER PROCESS IMPROVEMENT recommends STRICT NPO. ENT was consulted, flex endoscopy performed showed left septal deviation, mild oropharyngeal redundant tissue, bilateral TVC movement, pooling of secretions in the valleculae and pyriforms with gross aspiration, decreased laryngeal sensation, weak pharyngeal squeeze. On 02/17: patient hypoxic transferred to NSICU, concern for aspiration. Dobbhoff was placed. Today GI is consulted for PEG placement. Patient is DNR Patient complaints of difficulty initiating swallow, he says the solid and liquid accumulate at the back of his throat. He is denying acid reflux, abdominal pain, nausea, vomiting, change in bowel habits. No GI issues in the past. No abdominal surgeries. Never had an EGD Colonoscopy 3 years ago and he was told it was normal. PMH: DM HTN meningioma PSH: craniotomy 2013 FH: not h/o brain masses Social: everyday smoker Review Family/Social History and ROS: Constitutional: NEGATIVE: Fever, Chills, Anorexia, Weight Loss, Malaise ENMT: POSITIVE: Throat Pain Respiratory: NEGATIVE: Dry Cough, Productive Cough, Hemoptysis, Wheezing, Shortness of Breath Cardiac: NEGATIVE: Chest Pain, Dyspnea on Exertion, Orthopnea, Palpitations, Syncope Gastrointestinal: NEGATIVE: Nausea, Vomiting, Diarrhea, Constipation, Abdominal Pain Neurological: NEGATIVE: Dizziness, Confusion, Headache, Seizures, Syncope Endocrine: NEGATIVE: Heat Intolerance, Cold Intolerance, Sweat, Polyuria, Thirst Allergies: Codeine Sulfate: Unknown penicillin: Unknown insulin: Unknown Intolerances: Aspir 81: GI Upset Objective: Physical Exam: Constitutional: A/O x3. NAD Respiratory/Thorax: Coarse breath sounds. No wheezing Cardiovascular: S1, S2, no murmurs. RRR Gastrointestinal: Nondistended, soft, non-tender, no rebound tenderness or guarding, no masses palpable, no organomegaly, +BS, no bruits Extremities: No edema. Skin: No rashes Medications: Medications: Continuous Medications 1. Sodium Chloride 0.9% Infusion: 1000 mL IntraVenous <Continuous> Scheduled Medications 1. Albuterol 2.5mg - Ipratropium 0.5 mg/ 3mL Neb Soln: 3 mL Inhalation Every 4 Hours 2. amLODIPine: 10 mg Oral Daily 3. Atorvastatin: 40 mg Oral Daily 4. Azithromycin: 500 mg Feeding tube Every 24 Hours 5. Budesonide 0.25 mg/ 2 mL Nebulizer Soln: 2 mL Inhalation Every 12 Hours 6. Cefepime 2 gram IVPB/ Premixed Soln 100 mL: 100 mL IntraVenous Piggyback Every 8 Hours 7. Docusate: 100 mg Oral 2 Times a Day 8. Esomeprazole Oral Packet: 40 mg NasoGastric Tube Daily 9. Heparin SubCutaneous: 5000 unit(s) SubCutaneous Every 8 Hours 10. hydroCHLOROthiazide: 25 mg Oral Daily 11. Insulin Glargine (Lantus) Injectable: 20 unit(s) SubCutaneous At Bedtime 12. Insulin Lispro Moderate Corrective Scale: unit(s) SubCutaneous Every 4 Hours 13. Lisinopril: 30 mg Oral Daily 14. metroNIDAZOLE: 500 mg Feeding tube Every 8 Hours 15. Nicotine 14 mg/ 24 hour TransDermal: 1 patch TransDermal Every 24 Hours 16. risperiDONE: 3 mg Oral At Bedtime 17. Sennosides: 2 tablet(s) Oral Daily 18. Silodosin (NON - Formulary): 8 mg NasoGastric Tube Daily 19. Sodium Chloride 0.9% Injectable Flush: 10 mL IntraVenous Flush Every 12 Hours 20. Tiotropium 18 micrograms/ Inhalation: 1 inhalation Inhalation Every 24 Hours 21. traZODone: 150 mg Oral At Bedtime 22. Valproic Acid IV Piggy Back (Depacon): 250 mg IntraVenous Piggyback Every 12 Hours 23. Vancomycin IV Piggy Back: 1.5 gram(s) IntraVenous Piggyback Every 12 Hours PRN Medications 1. Acetaminophen: 650 mg Oral Every 6 Hours 2. Albuterol 2.5mg - Ipratropium 0.5 mg/ 3mL Neb Soln: 3 mL Inhalation Every 2 Hours 3. Bisacodyl Rectal: 10 mg Rectal Daily 4. Dextrose 50% in Water Injectable: 25 gram(s) IntraVenous Push Every 15 Minutes 5. Fleet Adult (Sodium Phosphate) Rectal: 1 enema Rectal Daily 6. Glucagon Injectable: 1 mg IntraMuscular Every 15 Minutes 7. Heparin Flush 10 unit/ mL PF Injectable PRN: 5 mL IntraVenous Flush According to Flush Policy 8. hydrALAZINE Injectable: 10 mg IntraVenous Push Every 6 Hours 9. Lidocaine 1% Injectable (PICC KIT): 1 mL IntraDermal Once 10. Morphine Injectable: 4 mg IntraVenous Push Every 3 Hours 11. Ondansetron Injectable: 4 mg IntraVenous Push Every 6 Hours 12. oxyCODONE Immediate Release: 5 mg Oral Every 4 Hours 13. oxyCODONE Immediate Release: 10 mg Oral Every 4 Hours 14. Polyethylene Glycol: 17 gram(s) Oral Daily Currently Suspended Medications 1. Divalproex Sodium Ext Rel (Depakote ER): 500 mg Oral Every 24 Hours Recent Lab Results: Results: I have reviewed these laboratory results: Coagulation Screen 19-Feb-2018 03:41:00 ResultValue Prothrombin Time, Plasma 11.4 International Normalized Ratio, Plasma 1.0 Activated Partial Thromboplastin Time 27 Renal Function Panel 19-Feb-2018 03:41:00 ResultValue Glucose, Serum 190 H NA 136 K 4.5 CL 97 L Bicarbonate, Serum 31 Anion Gap, Serum 13 BUN 54 H CREAT 1.16 GFR-Non >60 GFR- >60 Calcium, Serum 9.4 Phosphorus, Serum 2.7 ALB 2.7 L Complete Blood Count 19-Feb-2018 03:41:00 ResultValue White Blood Cell Count 13.9 H Nucleated Erythrocyte Count 0.0 Red Blood Cell Count 4.89 HGB 13.6 HCT 41.1 MCV 84 MCHC 33.1 PLT 274 RDW-CV 14.1 Assessment: 67 year old man with HTN, DM, COPD, tobacco abuse, CYNTHIA, hypoxic episodes (aspiration pneumonitis) with previous meningioma resection presented to [facility] because he is found to have enlargement of the residual mass with worsening diplopia and unsteady gait. He then underwent left retrosigmoid craniotomy for tumor resection on 02/11/18. On 02/16 patient was complaining of dysphagia. MBS done and per speech note: presents with significantly impaired bolus formation/control, resulting in premature spillage into the pharynx across tested consistencies. Significantly delayed swallow onset with decreased laryngeal elevation/anterior pull and laryngeal vestibular closure resulting in SILENT ASPIRATION in moderate amounts during the swallow with thin liquids and after the swallow with nectar and honey thick liquids 2/2 pharyngeal residue. GI consulted for PEG tube placement. Plan to place PEG on Wednesday. Please keep patient NPO after midnight tomorrow. Staffed with Dr. Dominguez Signature/Cosignature/Attestation: Attending AttestationI saw and evaluated the patient. I personally obtained the gonzalez and critical portions of the history and physical exam or was physically present for gonzalez and critical portions performed by the resident/fellow. I reviewed the resident/fellows documentation and discussed the patient with the resident/fellow. I agree with the resident/fellows medical decision making as documented in the residents note. I personally evaluated the patient (as noted in the above attestation) on 20-Feb-2018 Electronic Signatures: Eliana Torres (Fellow)) (Signed 19-Feb-2018 18:44) Authored: Service, History of Present Illness, Review Family/Social History and ROS, Allergies, Objective, Assessment/Recommendations Pillo Callaway Chi) (Signed 06-Mar-2018 17:41) Authored: History of Present Illness, Assessment/Recommendations, Signature/Cosignature/Attestation Co-Signer: Service, History of Present Illness, Review Family/Social History and ROS, Objective, Assessment/Recommendations Last Updated: 06-Mar-2018 17:41 by Pillo Callaway Chi) GLUCOSE-POCT Collected: 02/19/2018 Status: F Source: [facility] 11:26 AM HOSPITALS REPOSITORY TYPE CODE TESTS RESULT OUT OF RANGE REFERENCE UNITS LAB GLUP(LOINC) 74 - 99 mg/dL High 159 GLUCOSE-POCT Performed By: #### GLUPO #### [facility] [address] [place] [address] VANCOMYCIN,TROUGH Collected: Status: F Source: [facility] 02/19/2018 9:50 AM HOSPITALS REPOSITORY TYPE CODE TESTS RESULT OUT OF RANGE REFERENCE UNITS LAB VANCT(LOINC 5.0 - 20.0 ug/mL ) 19.0 VANCOMYCIN,T ROUGH Result Comment: Vancomycin levels should be interpreted in conjunction with the dose, disease being treated, vancomycin JENIFFER, time of draw (trough concentrations should be obtained just before the next dose at steady-state), and other clinical information. Trough concentrations of 15-20 ug/mL are desired for severe infections. Ref.: Am J Health-Syst Pharm 66: 83-98, 2009. Performed By: #### VANCT #### [facility] [address] [place] [address] GLUCOSE-POCT Collected: 02/19/2018 Status: F Source: [facility] 8:29 AM [facility] REPOSITORY TYPE CODE TESTS RESULT OUT OF RANGE REFERENCE UNITS LAB GLUP(LOINC) 74 - 99 mg/dL High 182 GLUCOSE-POCT Performed By: #### GLUPO #### [facility] [address] [place] [address] GLUCOSE-POCT Collected: 02/19/2018 Status: F Source: [facility] 4:17 AM [facility] REPOSITORY TYPE CODE TESTS RESULT OUT OF RANGE REFERENCE UNITS LAB GLUP(LOINC) 74 - 99 mg/dL High 227 GLUCOSE-POCT Performed By: #### GLUPO #### [facility] [address] [place] [address] CBC Collected: 02/19/2018 Status: F Source: ID[facility]EL 3:41 [facility] REPOSITORY TYPE CODE TESTS RESULT OUT OF REFERENCE UNITS RANGE LAB WBCR(LOINC 4.4 - 11.3 x10E9/L ) WBC High 13.9 LAB NRBC(LOINC 0.0-0.0 /100 WBC ) NUCLEATED RBC 0.0 LAB RBCCT(LOIN 4.50 - 5.90 x10E12/L C) RBC 4.89 LAB HGB(LOINC) 13.5 - 17.5 g/dL HGB 13.6 LAB HCT(LOINC) 41.0 - 52.0 % HCT 41.1 LAB MCV(LOINC) 80 - 100 fL MCV 84 LAB MCHC2(LOIN 32.0 - 36.0 g/dL C) MCHC 33.1 LAB PLTCT(LOIN 150 - 450 x10E9/L C) PLT 274 LAB RDWCV(LOIN 11.5 - 14.5 % C) RDW-CV 14.1 Performed By: #### CBC #### [facility] [address] [place] [address] COAGULATION SCREEN Collected: 02/19/2018 Status: F Source: ID[facility]EL 3:41 [facility] REPOSITORY TYPE CODE TESTS RESULT OUT OF REFERENCE UNITS RANGE LAB PT(LOINC) 9.8 - 12.7 sec PROTHROMBIN TIME 11.4 LAB INR(LOINC) 0.9 - 1.1 PT, INR 1.0 LAB APTT(LOINC 25 - 36 sec ) APTT 27 Result Comment: THE APTT IS NO LONGER USED FOR MONITORING UNFRACTIONATED HEPARIN THERAPY. FOR MONITORING HEPARIN THERAPY, USE THE HEPARIN ASSAY. Performed By: #### COAGS #### [facility] [address] [place] [address] MAGNESIUM Collected: 02/19/2018 Status: F Source: ID[facility]EL 3:41 [facility] REPOSITORY TYPE CODE TESTS RESULT OUT OF REFERENCE UNITS RANGE LAB MG(LOINC) 1.60 - 2.40 mg/dL MAGNESIUM 1.98 Performed By: #### MG #### [facility] [address] [place] [address] RENAL FUNCTION PANEL Collected: 02/19/2018 Status: F Source: IDABEL 3:[address] [place] [address] REPOSITORY TYPE CODE TESTS RESULT OUT OF REFERENCE UNITS RANGE LAB GLU(LOINC) 74 - 99 mg/dL GLUCOSE High 190 LAB SOD(LOINC) 136 - 145 mmol/L SODIUM 136 LAB K(LOINC) 3.5 - 5.3 mmol/L POTASSIUM 4.5 LAB CHLOR(LOIN 98 - 107 mmol/L C) Low CHLORIDE 97 LAB BIC(LOINC) 21 - 32 mmol/L BICARBONATE 31 LAB ANGAP(LOIN 10 - 20 mmol/L C) ANION GAP 13 LAB UREA(LOINC 6 - 23 mg/dL ) UREA High NITROGEN 54 LAB CREA(LOINC 0.50 - 1.30 mg/dL ) CREATININE 1.16 LAB GFRFN(LOIN >60 mL/min/1.7 C) 3m2 GFR-NON AM. >60 LAB GFRAA(LOIN >60 mL/min/1.7 C) 3m2 GFR- AM. >60 Result Comment: CALCULATIONS OF ESTIMATED GFR ARE PERFORMED USING THE MDRD STUDY EQUATION FOR THE IDMS-TRACEABLE CREATININE METHODS. CLIN CHEM 2007;53:766-72 LAB CA(LOINC) 8.6 - 10.6 mg/dL CALCIUM 9.4 LAB PHOS(LOINC) 2.5 - 4.9 mg/dL PHOSPHORUS 2.7 Result Comment: The performance characteristics of phosphorus testing in heparinized plasma have been validated by the individual laboratory site where testing is performed. Testing on heparinized plasma is not approved by the FDA; however, such approval is not necessary. LAB ALB(LOINC) 3.4 - 5.0 g/dL Low ALBUMIN 2.7 Performed By: #### RENAL #### [facility] [address] [address] DAILY PROGRESS Observed: 02/19/2018 Status: COMPLETED Source: [facility] NOTE-NEUROSURGERY 12:32 AM [facility] REPOSITORY Service: Neurosurgery Subjective Data: DIPESH BERMUDEZ is a 67 year old Male who is Hospital Day # 9 and POD #7 for left retrosigmoid craniotomy for tumor resection. 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 vMRI done 02/11 s/p L crani for tumor resection. 02/12 MRI POC 02/13 Code White 10/ code white, concern for aspiration, transferred to NSU for increased O2 requirement. CTH/CT chest stable Plan - FRANCK - pain control - continue antibiotics for presumed aspiration - MANAGER PROCESS IMPROVEMENT-NPO (repeat swallow eval) - pulmonary recs - PTOT-rehab - teds. scds, SQH Signature/Cosignature/Attestation: Attending AttestationI saw and evaluated the patient. I personally obtained the gonzalez and critical portions of the history and physical exam or was physically present for gonzalez and critical portions performed by the resident/fellow. I reviewed the resident/fellows documentation and discussed the patient with the resident/fellow. I agree with the resident/fellows medical decision making as documented in the residents note. I personally evaluated the patient (as noted in the above attestation) on 19-Feb-2018 Comments/ Additional Findings Failed swallow evaluation. Plan for PEG. Ok for FRANCK status Electronic Signatures: Alvina Garcia) (Signed 19-Feb-2018 11:09) Authored: Signature/Cosignature/Attestation Co-Signer: Service, Subjective Data, Objective Data, Assessment and Plan, Signature/Cosignature/Attestation Troy Abraham (Resident)) (Signed 18-Feb-2018 19:33) Authored: Service, Subjective Data, Objective Data, Assessment and Plan, Signature/Cosignature/Attestation Last Updated: 19-Feb-2018 11:09 by Alvina Garcia) GLUCOSE-POCT Collected: 02/19/2018 Status: F Source: [facility] 12:14 AM [facility] REPOSITORY TYPE CODE TESTS RESULT OUT OF RANGE REFERENCE UNITS LAB GLUP(LOINC) 74 - 99 mg/dL High 146 GLUCOSE-POCT Performed By: #### GLUPO #### [facility] [address] [place] [address] GLUCOSE-POCT Collected: 02/18/2018 Status: F Source: [facility]EL 8:07 PM [facility]ALS REPOSITORY TYPE CODE TESTS RESULT OUT OF RANGE REFERENCE UNITS LAB GLUP(LOINC) 74 - 99 mg/dL High 206 GLUCOSE-POCT Performed By: #### GLUPO #### [facility] [address] [place] [address] DAILY PROGRESS Observed: 02/18/2018 Status: COMPLETED Source: IDABEL NOTE-PULMONOLOGY 5:43 PM [facility] REPOSITORY Service: Pulmonology Subjective Data: DIPESH BERMUDEZ is a 67 year old Male who is Hospital Day # 9 and POD #7 for left retrosigmoid craniotomy for tumor resection. Additional Information: Patient reports feeling better, breathing improved, decreased cough, oxygen requirement decreased to 5L NC. RT has been working with patient with chest PT (IPV). Patient working with PT/OT today. Patient underwent code status discussion with primary team yesterday, code status corroborated to be DNAR/DNI. Objective Data: Objective Information: T PRBPSpO2 [id number]% Date/Time02/18 0:0010/5 17:00105 17:0010/5 17:0010/5 17:00 Range(36C - 36.5C ) (55 - 116 ) (11 - 22 ) (95 - 150 )/ (58 - 110 ) (92% - 100% ) As of 18-Feb-2018 16:00:00, patient is on 4 L/min of oxygen via nasal cannula. ---- Intake and Output ----- Mn/Dy/[facility] Feb 18, 2018 2:00 [id number] Feb 18, 2018 6:00 [id number] Feb 17, 2018 10:00 [id number] The Intake and Output Totals for the last 24 hours are: IntakeOutunm [facility] centerNet [id number] Physical Exam: Constitutional: Awake, alert, NAD Eyes: EOMI Head/Neck: Neck supple, normal ROM Respiratory/Thorax: Patient with limited inspiratory effort, faint breath sounds with poor air movement and rhonchi, weak cough Cardiovascular: RRR, normal S1/S2 Gastrointestinal: Soft, NT, ND Neurological: Alert, oriented x 3, dysarthric Skin: Warm and dry, no diaphoresis Medication: Medications: ANTI-INFECTIVES: 1. Cefepime 2 gram IVPB/ Premixed Soln 100 mL: 100 mL IntraVenous Piggyback Every 8 Hours 2. Vancomycin IV Piggy Back: 1.5 gram(s) IntraVenous Piggyback Every 12 Hours 3. Azithromycin: 500 mg Feeding tube Every 24 Hours 4. metroNIDAZOLE: 500 mg Feeding tube Every 8 Hours CARDIOVASCULAR AGENTS: 1. Lisinopril: 30 mg Oral Daily 2. Silodosin (NON - Formulary): 8 mg NasoGastric Tube Daily 3. amLODIPine: 10 mg Oral Daily 4. hydroCHLOROthiazide: 25 mg Oral Daily 5. hydrALAZINE Injectable: 10 mg IntraVenous Push Every 6 Hours PRN CENTRAL NERVOUS SYSTEM AGENTS: 1. Acetaminophen: 650 mg Oral Every 6 Hours PRN 2. Morphine Injectable: 4 mg IntraVenous Push Every 3 Hours PRN 3. oxyCODONE Immediate Release: 5 mg Oral Every 4 Hours PRN 4. oxyCODONE Immediate Release: 10 mg Oral Every 4 Hours PRN 5. Valproic Acid IV Piggy Back (Depacon): 250 mg IntraVenous Piggyback Every 12 Hours 6. Ondansetron Injectable: 4 mg IntraVenous Push Every 6 Hours PRN COAGULATION MODIFIERS: 1. Heparin Flush 10 unit/ mL PF Injectable PRN: 5 mL IntraVenous Flush According to Flush Policy PRN 2. Heparin SubCutaneous: 5000 unit(s) SubCutaneous Every 8 Hours GASTROINTESTINAL AGENTS: 1. Bisacodyl Rectal: 10 mg Rectal Daily PRN 2. Docusate: 100 mg Oral 2 Times a Day 3. Fleet Adult (Sodium Phosphate) Rectal: 1 enema Rectal Daily PRN 4. Polyethylene Glycol: 17 gram(s) Oral Daily PRN 5. Sennosides: 2 tablet(s) Oral Daily 6. Esomeprazole Oral Packet: 40 mg NasoGastric Tube Daily METABOLIC AGENTS: 1. Insulin Glargine (Lantus) Injectable: 20 unit(s) SubCutaneous At Bedtime 2. Insulin Lispro Moderate Corrective Scale: unit(s) SubCutaneous Every 4 Hours 3. Atorvastatin: 40 mg Oral Daily 4. Dextrose 50% in Water Injectable: 25 gram(s) IntraVenous Push Every 15 Minutes PRN 5. Glucagon Injectable: 1 mg IntraMuscular Every 15 Minutes PRN MISCELLANEOUS AGENTS: 1. Lidocaine 1% Injectable (PICC KIT): 1 mL IntraDermal Once PRN 2. Nicotine 14 mg/ 24 hour TransDermal: 1 patch TransDermal Every 24 Hours NUTRITIONAL PRODUCTS: 1. Sodium Chloride 0.9% Infusion: 1000 mL IntraVenous <Continuous> 2. Sodium Chloride 0.9% Injectable Flush: 10 mL IntraVenous Flush Every 12 Hours PSYCHOTHERAPEUTIC AGENTS: 1. traZODone: 150 mg Oral At Bedtime 2. risperiDONE: 3 mg Oral At Bedtime RESPIRATORY AGENTS: 1. Albuterol 2.5mg - Ipratropium 0.5 mg/ 3mL Neb Soln: 3 mL Inhalation Every 2 Hours PRN 2. Albuterol 2.5mg - Ipratropium 0.5 mg/ 3mL Neb Soln: 3 mL Inhalation Every 4 Hours 3. Tiotropium 18 micrograms/ Inhalation: 1 inhalation Inhalation Every 24 Hours 4. Budesonide 0.25 mg/ 2 mL Nebulizer Soln: 2 mL Inhalation Every 12 Hours Currently Suspended Medications 1. Divalproex Sodium Ext Rel (Depakote ER): 500 mg Oral Every 24 Hours Recent Lab Results: Results: I have reviewed these laboratory results: Complete Blood Count 18-Feb-2018 00:06:00 ResultValue White Blood Cell Count 12.7 H Nucleated Erythrocyte Count 0.0 Red Blood Cell Count 5.25 HGB 14.2 HCT 44.9 MCV 86 MCHC 31.6 L PLT 299 RDW-CV 13.9 Renal Function Panel 18-Feb-2018 00:06:00 ResultValue Glucose, Serum 177 H NA 137 K 4.3 CL 96 L Bicarbonate, Serum 32 Anion Gap, Serum 13 BUN 54 H CREAT 1.10 GFR-Non >60 GFR- >60 Calcium, Serum 9.7 Phosphorus, Serum 3.3 ALB 2.9 L Coagulation Screen 18-Feb-2018 00:06:00 ResultValue Prothrombin Time, Plasma 11.3 International Normalized Ratio, Plasma 1.0 Activated Partial Thromboplastin Time 26 Culture, Respiratory Lower, incl. smear 17-Feb-2018 10:37:00 ResultValue Gram Stain THE GRAM STAIN INDICATES THAT THE SPECIMEN CONTAINS SIGNIFICANT SALIVARY CONTAMINATION. THE CULTURE WILL NOT BE PROCESSED IT WILL BE OF LIMITED DIAGNOSTIC VALUE.A SPECIMEN OF BETTER QUALITY SHOULD BE SUBMITTED IF CLINICALLY INDICATED. Procalcitonin, Serum 17-Feb-2018 06:01:00 ResultValue Procalcitonin, Serum 0.07 Radiology Results: Results: Impression: 1. Redemonstration of bibasilar, and to lesser extent right upper lobar, centrilobular nodularity with tree-in-bud opacification, grossly unchanged from prior examination. In combination with diffuse bronchial and bronchiolar wall thickening and multifocal mucous plugging, thefindings are suspicious for aspiration bronchiolitis/bronchopneumonia. 2. Stable postsurgical changes related left lower lobectomy. 3. Unchanged trace right pleural effusion. 4. Moderate coronary artery calcifications again seen. CT Chest without Contrast [Feb 17 2018 6:13PM] Impression: Postoperative changes are again identified compatible with a left occipital craniectomy with surgical mesh overlying the craniectomy site as well as an additional left temporal craniotomy. There is an extracranial fluid collection overlying the surgical mesh along the left occipital craniectomy site which extends caudally into the soft tissues of the upper left neck suggestive of a pseudomeningocele. There is asymmetric prominence of the extra-axial space similar to CSF in attenuation deep to the left occipital craniectomy site and surrounding the lateral left cerebellar hemisphere. There has been interval resolution of the previously noted scattered pneumocephalus. There is again evidence of asymmetric hypodensity along the left aspect of the brainstem which corresponds to abnormal diffusion restriction on the prior MRI dated 02/12/2018and is suggestive of an evolving area of infarction. Areas of encephalomalacia are identified along the inferior medial cerebellar hemispheres right greater than left. An additional area of encephalomalacia/gliosis is again noted along the anterior left temporal lobe. There is a small amount of asymmetric extra-axial intermediate attenuation noted along the left aspect of the clivus and left petrous apex which may represent a small amount of residual neoplasm/meningioma. There is moderate brain parenchymal volume loss. There are mild nonspecific white matter changes within the cerebral hemispheres bilaterally. The study was interpreted at [facility]. CT Head without Contrast [Feb 17 2018 4:43PM] Assessment and Plan: Assessment: 67 yo M with history of meningioma s/p craniotomy/resection (2013), HTN, DM, COPD, tobacco abuse, admitted under Neurosurgery following repeat craniotomy tumor resection, noted to have multiple episodes of hypoxia for which Pulmonary has been following. CT chest negative for PE, shows prior LLL resection and patchy opacities in the bilateral lung bases with TIB appearance & mild diffuse bronchial wall thickening. LE Dopplers also negative for DVT in both legs. TTE shows preserved EF 55-60% and diastolic disease. Strict NPO per MANAGER PROCESS IMPROVEMENT due to dysphagia. Transferred to NSU from the floor due to tenuous respiratory status, but has since improved, now down to 5L NC. #Acute respiratory failure/Hypoxia, CTPE negative, etiology likely multifactorial secondary to all of the below #History of COPD - likely chronic bronchitis given bronchial thickening on CT scan; due to lack of PFT data severity of COPD can not be characterized at this point #Dysphagia requiring strict NPO, with chronic aspiration, now with suspected aspiration pneumonia #Bilateral lung atelectasis #Heavy secretions with weak cough #CYNTHIA not treated currently (patient non-adherent to home CPAP) RECS: 1. Antibiotics and infectious work-up per primary team 2. Continue aggressive chest physiotherapy - IPV Q4 hrs plus albuterol nebs - to promote bronchial clearance 3. Continue strict NPO & keep head of bed elevated to 30 degrees; consider alternate permanent means of nutrition 4. Continue Spiriva, Advair, and albuterol nebs PRN 5. Wean FiO2 as tolerated Pulmonary will sign off. [place] [phone] if needed. Patient seen, examined, and discussed with staff Dr. Ramirez. Signature/Cosignature/Attestation: Attending AttestationI saw and evaluated the patient. I personally obtained the gonzalez and critical portions of the history and physical exam or was physically present for gonzlaez and critical portions performed by the resident/fellow. I reviewed the resident/fellows documentation and discussed the patient with the resident/fellow. I agree with the resident/fellows medical decision making as documented in the residents note. I personally evaluated the patient (as noted in the above attestation) on 18-Feb-2018 Electronic Signatures: Allan Babcock (Fellow)) (Signed 18-Feb-2018 17:57) Authored: Service, Subjective Data, Objective Data, Assessment and Plan, Signature/Cosignature/Attestation Shagufta Ramirez) (Signed 22-Feb-2018 09:40) Authored: Signature/Cosignature/Attestation Co-Signer: Service, Subjective Data, Objective Data, Assessment and Plan, Signature/Cosignature/Attestation Last Updated: 22-Feb-2018 09:40 by Shagufta Ramirez) GLUCOSE-POCT Collected: 02/18/2018 Status: F Source: [facility] 10:38 AM [facility]ALS REPOSITORY TYPE CODE TESTS RESULT OUT OF RANGE REFERENCE UNITS LAB GLUP(LOINC) 74 - 99 mg/dL High 204 GLUCOSE-POCT Performed By: #### GLUPO #### [facility] [address] [facility] [place] [address] DAILY PROGRESS Observed: 02/18/2018 Status: COMPLETED Source: UNIVERSITY NOTE-NEUROSURGERY 3:39 AM [facility]ITALS REPOSITORY Service: Neurosurgery Subjective Data: DIPESH BERMUDEZ is a 67 year old Male who is Hospital Day # 8 and POD #6 for left retrosigmoid craniotomy for tumor resection. 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 vMRI done 02/11 s/p L crani for tumor resection. 02/12 MRI POC 02/13 Code White 02/17 code white, concern for aspiration, transferred to NSU for increased O2 requirement. CTH/CT chest stable Plan - NSU, FRANCK transfer - pain control - continue antibiotics for presumed aspiration - MANAGER PROCESS IMPROVEMENT-NPO (repeat swallow eval) - pulmonary recs - PTOT-rehab - teds. scds, H Electronic Signatures: Alvina Garcia) (Signed 18-Feb-2018 09:32) Authored: Signature/Cosignature/Attestation Co-Signer: Service, Subjective Data, Objective Data, Assessment and Plan, Signature/Cosignature/Attestation Manoj Oviedo (Resident)) (Signed 17-Feb-2018 22:40) Authored: Service, Subjective Data, Objective Data, Assessment and Plan, Signature/Cosignature/Attestation Last Updated: 18-Feb-2018 09:32 by Alvina Garcia) GLUCOSE-POCT Collected: 02/18/2018 Status: F Source: IDABEL 12:36 AM [facility] REPOSITORY TYPE CODE TESTS RESULT OUT OF RANGE REFERENCE UNITS LAB GLUP(LOINC) 74 - 99 mg/dL High 190 GLUCOSE-POCT Performed By: #### GLUPO #### [facility] [address] [place] [address] CALCIUM, IONIZED Collected: 02/18/2018 Status: F Source: [facility]EL 12:06 AM [facility] REPOSITORY TYPE CODE TESTS RESULT OUT OF RANGE REFERENCE UNITS LAB CAION(LOINC 1.10 - 1.33 mmol/L ) 1.33 CALCIUM,IONI ZED Result Comment: The performance characteristics of ionized calcium tested in heparinized plasma or serum have been validated by the individual laboratory site where testing is performed. Testing on heparinized plasma or serum is not approved by the FDA; however, such approval is not necessary. Performed By: #### IONC1 #### [facility] [address] [place] [address] CBC Collected: 02/18/2018 Status: F Source: IDABEL 12:06 [facility] REPOSITORY TYPE CODE TESTS RESULT OUT OF REFERENCE UNITS RANGE LAB WBCR(LOINC 4.4 - 11.3 x10E9/L ) WBC High 12.7 LAB NRBC(LOINC 0.0-0.0 /100 WBC ) NUCLEATED RBC 0.0 LAB RBCCT(LOIN 4.50 - 5.90 x10E12/L C) RBC 5.25 LAB HGB(LOINC) 13.5 - 17.5 g/dL HGB 14.2 LAB HCT(LOINC) 41.0 - 52.0 % HCT 44.9 LAB MCV(LOINC) 80 - 100 fL MCV 86 LAB MCHC2(LOIN 32.0 - 36.0 g/dL C) Low MCHC 31.6 LAB PLTCT(LOIN 150 - 450 x10E9/L C) PLT 299 LAB RDWCV(LOIN 11.5 - 14.5 % C) RDW-CV 13.9 Performed By: #### CBC #### [facility] [address] [employer] [facility] [employer] [place] [id number] COAGULATION SCREEN Collected: 02/18/2018 Status: F Source: IDABEL 12:[address] [place] [address] REPOSITORY TYPE CODE TESTS RESULT OUT OF REFERENCE UNITS RANGE LAB PT(LOINC) 9.8 - 12.7 sec PROTHROMBIN TIME 11.3 LAB INR(LOINC) 0.9 - 1.1 PT, INR 1.0 LAB APTT(LOINC 25 - 36 sec ) APTT 26 Result Comment: THE APTT IS NO LONGER USED FOR MONITORING UNFRACTIONATED HEPARIN THERAPY. FOR MONITORING HEPARIN THERAPY, USE THE HEPARIN ASSAY. Performed By: #### COAGS #### [facility] [address] [employer] [facility] [place] [address] MAGNESIUM Collected: 02/18/2018 Status: F Source: ID[facility]EL 12:06 [facility] REPOSITORY TYPE CODE TESTS RESULT OUT OF REFERENCE UNITS RANGE LAB MG(LOINC) 1.60 - 2.40 mg/dL MAGNESIUM 2.01 Performed By: #### MG #### [facility] [address] [employer] [facility] [place] [address] RENAL FUNCTION PANEL Collected: 02/18/2018 Status: F Source: [facility] 12:06 [facility] REPOSITORY TYPE CODE TESTS RESULT OUT OF REFERENCE UNITS RANGE LAB GLU(LOINC) 74 - 99 mg/dL GLUCOSE High 177 LAB SOD(LOINC) 136 - 145 mmol/L SODIUM 137 LAB K(LOINC) 3.5 - 5.3 mmol/L POTASSIUM 4.3 LAB CHLOR(LOIN 98 - 107 mmol/L C) Low CHLORIDE 96 LAB BIC(LOINC) 21 - 32 mmol/L BICARBONATE 32 LAB ANGAP(LOIN 10 - 20 mmol/L C) ANION GAP 13 LAB UREA(LOINC 6 - 23 mg/dL ) UREA High NITROGEN 54 LAB CREA(LOINC 0.50 - 1.30 mg/dL ) CREATININE 1.10 LAB GFRFN(LOIN >60 mL/min/1.7 C) 3m2 GFR-NON AM. >60 LAB GFRAA(LOIN >60 mL/min/1.7 C) 3m2 GFR- AM. >60 Result Comment: CALCULATIONS OF ESTIMATED GFR ARE PERFORMED USING THE MDRD STUDY EQUATION FOR THE IDMS-TRACEABLE CREATININE METHODS. CLIN CHEM 2007;53:766-72 LAB CA(LOINC) 8.6 - 10.6 mg/dL CALCIUM 9.7 LAB PHOS(LOINC) 2.5 - 4.9 mg/dL PHOSPHORUS 3.3 Result Comment: The performance characteristics of phosphorus testing in heparinized plasma have been validated by the individual laboratory site where testing is performed. Testing on heparinized plasma is not approved by the FDA; however, such approval is not necessary. LAB ALB(LOINC) 3.4 - 5.0 g/dL Low ALBUMIN 2.9 Performed By: #### RENAL #### [facility] [address] [place] [address] GLUCOSE-POCT Collected: 02/17/2018 Status: F Source: [facility] 8:24 PM [facility] REPOSITORY TYPE CODE TESTS RESULT OUT OF RANGE REFERENCE UNITS LAB GLUP(LOINC) 74 - 99 mg/dL High 148 GLUCOSE-POCT Performed By: #### GLUPO #### [facility] [address] [place] [address] CLINICAL EVENT Observed: 02/17/2018 Status: UNK Source: [facility] NOTE-DNR/DNI - GOALS OF 7:00 PM [facility]OSPITALS REPOSITORY CARE Event: Topic: DNR/DNI - Goals of care Details: Discussed code status with patient. After initiating the conversation he clearly stated that he is DNR in his living will. More specifically he stated that if his heart were to stop and he were to code, he would not want chest compressions or cardioversion. Additionally, if his breathing were to worsen to the point that he could not breathe without a mask of BiPAP, he would not want to be intubated. He states he would rather that be intubated for respiratory failure. Electronic Signatures: Brittany Osorio ( (Resident)) (Signed 17-Feb-2018 19:03) Authored: Event Last Updated: 17-Feb-2018 19:03 by Brittany Osorio ( (Resident)) DAILY PROGRESS Observed: 02/17/2018 Status: COMPLETED Source: UN[facility]ERSITY NOTE-PULMONOLOGY 6:04 PM [facility]ALS REPOSITORY Service: Pulmonology Subjective Data: DIPESH BERMUDEZ is a 67 year old Male who is Hospital Day # 8 and POD #6 for left retrosigmoid craniotomy for tumor resection. Additional Information: Overnight patient transferred to NSU due to tenuous respiratory status. Patient seen this afternoon, on venti-mask, easily arousable and answering appropriately to questions. Patient with poor respiratory effort and weak cough, moving very little air. Respiratory has been working with patient to help with expectoration with EZ-PAP. Antibiotics initiated per primary team - vanc, cefepime, flagyl, azithromycin. Dopplers of the legs are negative for DVT. Objective Data: Objective Information: T PRBPSpO2 [id number]/32180% Date/Time02/17 16: 18: 18: 18:001 18:00 Range(36.2C - 36.5C ) (67 - 116 ) (13 - 21 ) (109 - 166 )/ (62 - 110 ) (88% - 100% ) As of 17-Feb-2018 16:00:00, patient is on 14 L/min of oxygen via Venturi mask. ---- Intake and Output ----- Mn/Dy/Year TimeIntakeOutputNet Feb 17, 2018 2:00 [id number] Feb 17, 2018 6:00 [id number] Feb 16, 2018 10:00 [id number] The Intake and Output Totals for the last 24 hours are: IntakeOutputNet [id number] Pain with Activity reported at 02/17 6:00: 0 Pain at Rest reported at 02/17 16:00: 0 Physical Exam: Constitutional: Awake, alert, NAD Eyes: EOMI Head/Neck: Neck supple, normal ROM Respiratory/Thorax: Patient with limited inspiratory effort, faint breath sounds, little air movement bilaterally, weak cough Cardiovascular: RRR, normal S1/S2 Gastrointestinal: Soft, NT, ND Extremities: Trace leg edema noted, lower extremities cool to touch Neurological: Alert, oriented x 3, dysarthric Skin: Warm and dry, no diaphoresis Medication: Medications: ANTI-INFECTIVES: 1. Cefepime 2 gram IVPB/ Premixed Soln 100 mL: 100 mL IntraVenous Piggyback Every 8 Hours 2. Vancomycin IV Piggy Back: 1.5 gram(s) IntraVenous Piggyback Every 12 Hours 3. Azithromycin: 500 mg Feeding tube Every 24 Hours 4. metroNIDAZOLE: 500 mg Feeding tube Every 8 Hours CARDIOVASCULAR AGENTS: 1. Lisinopril: 30 mg Oral Daily 2. Silodosin (NON - Formulary): 8 mg NasoGastric Tube Daily 3. amLODIPine: 10 mg Oral Daily 4. hydroCHLOROthiazide: 25 mg Oral Daily 5. hydrALAZINE Injectable: 10 mg IntraVenous Push Every 6 Hours PRN CENTRAL NERVOUS SYSTEM AGENTS: 1. Acetaminophen: 650 mg Oral Every 6 Hours PRN 2. Morphine Injectable: 4 mg IntraVenous Push Every 3 Hours PRN 3. oxyCODONE Immediate Release: 5 mg Oral Every 4 Hours PRN 4. oxyCODONE Immediate Release: 10 mg Oral Every 4 Hours PRN 5. Valproic Acid IV Piggy Back (Depacon): 250 mg IntraVenous Piggyback Every 12 Hours 6. Ondansetron Injectable: 4 mg IntraVenous Push Every 6 Hours PRN COAGULATION MODIFIERS: 1. Heparin Flush 10 unit/ mL PF Injectable PRN: 5 mL IntraVenous Flush According to Flush Policy PRN 2. Heparin SubCutaneous: 5000 unit(s) SubCutaneous Every 8 Hours GASTROINTESTINAL AGENTS: 1. Bisacodyl Rectal: 10 mg Rectal Daily PRN 2. Docusate: 100 mg Oral 2 Times a Day 3. Fleet Adult (Sodium Phosphate) Rectal: 1 enema Rectal Daily PRN 4. Polyethylene Glycol: 17 gram(s) Oral Daily PRN 5. Sennosides: 2 tablet(s) Oral Daily 6. Esomeprazole Oral Packet: 40 mg NasoGastric Tube Daily METABOLIC AGENTS: 1. Insulin Glargine (Lantus) Injectable: 20 unit(s) SubCutaneous At Bedtime 2. Insulin Lispro Moderate Corrective Scale: unit(s) SubCutaneous Every 4 Hours 3. Atorvastatin: 40 mg Oral Daily 4. Dextrose 50% in Water Injectable: 25 gram(s) IntraVenous Push Every 15 Minutes PRN 5. Glucagon Injectable: 1 mg IntraMuscular Every 15 Minutes PRN MISCELLANEOUS AGENTS: 1. Lidocaine 1% Injectable (PICC KIT): 1 mL IntraDermal Once PRN 2. Nicotine 14 mg/ 24 hour TransDermal: 1 patch TransDermal Every 24 Hours NUTRITIONAL PRODUCTS: 1. Sodium Chloride 0.9% Infusion: 1000 mL IntraVenous <Continuous> 2. Sodium Chloride 0.9% Injectable Flush: 10 mL IntraVenous Flush Every 12 Hours PSYCHOTHERAPEUTIC AGENTS: 1. traZODone: 150 mg Oral At Bedtime 2. risperiDONE: 3 mg Oral At Bedtime RESPIRATORY AGENTS: 1. Albuterol 2.5mg - Ipratropium 0.5 mg/ 3mL Neb Soln: 3 mL Inhalation Every 2 Hours PRN 2. Albuterol 2.5mg - Ipratropium 0.5 mg/ 3mL Neb Soln: 3 mL Inhalation Every 4 Hours 3. Tiotropium 18 micrograms/ Inhalation: 1 inhalation Inhalation Every 24 Hours 4. Budesonide 0.25 mg/ 2 mL Nebulizer Soln: 2 mL Inhalation Every 12 Hours Currently Suspended Medications 1. Divalproex Sodium Ext Rel (Depakote ER): 500 mg Oral Every 24 Hours Recent Lab Results: Results: I have reviewed these laboratory results: Culture, Blood Trending View [id number] 10:37:00 17-Feb-2018 10:35:00 Culture, BloodNEGATIVE TO DATE, CULTURE IN PROGRESS. NEGATIVE TO DATE, CULTURE IN PROGRESS. Coagulation Screen 17-Feb-2018 06:20:00 ResultValue Prothrombin Time, Plasma 11.2 International Normalized Ratio, Plasma 1.0 Activated Partial Thromboplastin Time 27 Renal Function Panel 17-Feb-2018 06:01:00 ResultValue Glucose, Serum 147 H NA 138 K 4.2 CL 94 L Bicarbonate, Serum 34 H Anion Gap, Serum 14 BUN 54 H CREAT 1.17 GFR-Non >60 GFR- >60 Calcium, Serum 10.2 Phosphorus, Serum 3.8 ALB 3.2 L Complete Blood Count 17-Feb-2018 06:01:00 ResultValue White Blood Cell Count 12.6 H Nucleated Erythrocyte Count 0.0 Red Blood Cell Count 5.46 HGB 15.1 HCT 46.0 MCV 84 MCHC 32.8 PLT 331 RDW-CV 14.4 Procalcitonin, Serum 17-Feb-2018 06:01:00 ResultValue Procalcitonin, Serum 0.07 Arterial Full Panel 17-Feb-2018 06:00:00 ResultValue pH, Arterial 7.49 H pCO2, Arterial 44 H pO2, Arterial 80 L Patient-Temperature 37.0 SO2, Arterial 98 HCT 49.0 Sodium-Level 132 L Potassium-Level 3.9 Chloride-Level 98 Calcium, Ionized-Level 1.31 Glucose-Level 148 H Lactate-Level 1.0 Base Excess-Blood 8.8 H Bicarbonate, Calculated, Arterial 33.5 H HGB, Calculated 16.7 Anion Gap-Level 4 L Radiology Results: Results: Impression: Postoperative changes are again identified compatible with a left occipital craniectomy with surgical mesh overlying the craniectomy site as well as an additional left temporal craniotomy. There is an extracranial fluid collection overlying the surgical mesh along the left occipital craniectomy site which extends caudally into the soft tissues of the upper left neck suggestive of a pseudomeningocele. There is asymmetric prominence of the extra-axial space similar to CSF in attenuation deep to the left occipital craniectomy site and surrounding the lateral left cerebellar hemisphere. There has been interval resolution of the previously noted scattered pneumocephalus. There is again evidence of asymmetric hypodensity along the left aspect of the brainstem which corresponds to abnormal diffusion restriction on the prior MRI dated 02/12/2018and is suggestive of an evolving area of infarction. Areas of encephalomalacia are identified along the inferior medial cerebellar hemispheres right greater than left. An additional area of encephalomalacia/gliosis is again noted along the anterior left temporal lobe. There is a small amount of asymmetric extra-axial intermediate attenuation noted along the left aspect of the clivus and left petrous apex which may represent a small amount of residual neoplasm/meningioma. There is moderate brain parenchymal volume loss. There are mild nonspecific white matter changes within the cerebral hemispheres bilaterally. The study was interpreted at [facility]. CT Head without Contrast [Feb 17 2018 4:43PM] Impression: 1. Unchanged mild bandlike bibasilar and retrocardiac atelectasis without sizable pleural effusions or pneumothorax. 2. Medical devices as above. Xray Chest 1 View [Feb 17 2018 1:40PM] Conclusion: [facility] Venous Duplex Ultrasound for DVT [Feb 17 2018 8:38AM] Assessment and Plan: Assessment: 67 yo M with history of meningioma s/p craniotomy/resection (2013), HTN, DM, COPD, tobacco abuse, admitted under Neurosurgery following repeat craniotomy tumor resection, noted to have multiple episodes of hypoxia for which Pulmonary has been following. CT chest done overnight, no PE otherwise showed prior LLL resection and patchy opacities in the bilateral lung bases with TIB appearance & mild diffuse bronchial wall thickening. LE Dopplers also negative for DVT in both legs. TTE shows preserved EF 55-60% and diastolic disease. Strict NPO per [employer] due to dysphagia. Transferred to NSU from the floor due to tenuous respiratory status. #Acute respiratory failure/Hypoxia, multifactorial, but CT- PE negative for PE - likely due to all of the below problems #History of COPD - likely chronic bronchitis given bronchial thickening on CT scan; due to lack of PFT data severity of COPD can not be characterized at this point #Dysphagia requiring strict NPO, with chronic aspiration, now with possible aspiration pneumonia #Bilateral lung atelectasis #Heavy secretions with weak cough #CYNTHIA not treated currently (patient non-adherent to home CPAP) RECS: 1. Antibiotics and infectious work-up per primary team 2. Chest physiotherapy - we discussed personally with RT re: initiation of IPV Q4 hrs + albuterol nebs prior, please start this today 3. Continue strict NPO & keep head of bed elevated to 30 degrees 4. Continue Spiriva, Advair, and albuterol nebs PRN 5. Wean FiO2 as tolerated Will follow. Please page [phone] with questions. Patient seen, examined, and discussed with staff Dr. Ramirez. Signature/Cosignature/Attestation: Attending AttestationI saw and evaluated the patient. I personally obtained the gonzalez and critical portions of the history and physical exam or was physically present for gonzalez and critical portions performed by the resident/fellow. I reviewed the resident/fellows documentation and discussed the patient with the resident/fellow. I agree with the resident/fellows medical decision making as documented in the residents note. I personally evaluated the patient (as noted in the above attestation) on 17-Feb-2018 Electronic Signatures: Allan Babcock (Fellow)) (Signed 17-Feb-2018 18:19) Authored: Service, Subjective Data, Objective Data, Assessment and Plan, Signature/Cosignature/Attestation Shagufta Ramirez) (Signed 22-Feb-2018 09:38) Authored: Signature/Cosignature/Attestation Co-Signer: Service, Subjective Data, Objective Data, Assessment and Plan, Signature/Cosignature/Attestation Last Updated: 22-Feb-2018 09:38 by Shagufta Ramirez) NR CT HEAD WO Observed: 02/17/2018 Status: F Source: [facility] CONTRAST 4:06 PM HOSPITALS REPOSITORY Patient Name: DIPESH BERMUDEZ STUDY: CT HEAD WO CONTRAST; 02/17/2018 4:06 pm INDICATION: Signs/Symptoms: neuro change, Lie Flat: Yes. COMPARISON: 02/12/2018 ACCESSION NUMBER(S): [id number] ORDERING CLINICIAN: MANOJ OVIEDO TECHNIQUE: Axial CT images images of the head were obtained without intravenous contrast administration. FINDINGS: Postoperative changes are again identified compatible with a left occipital craniectomy with surgical mesh overlying the craniectomy site as well as an additional left temporal craniotomy. There is an extracranial fluid collection overlying the surgical mesh along the left occipital craniectomy site which extends caudally into the soft tissues of the upper left neck suggestive of a pseudomeningocele. There is asymmetric prominence of the extra-axial space similar to CSF in attenuation deep to the left occipital craniectomy site and surrounding the lateral left cerebellar hemisphere. There has been interval resolution of the previously noted scattered pneumocephalus. There is again evidence of asymmetric hypodensity along the left aspect of the brainstem which corresponds to abnormal diffusion restriction on the prior MRI dated 02/12/2018 and is suggestive of an evolving area of infarction. Areas of encephalomalacia are identified along the inferior medial cerebellar hemispheres right greater than left. An additional area of encephalomalacia/gliosis is again noted along the anterior left temporal lobe. There is a small amount of asymmetric extra-axial intermediate attenuation noted along the left aspect of the clivus and left petrous apex which may represent a small amount of residual neoplasm/meningioma. There is moderate brain parenchymal volume loss. There are mild nonspecific white matter changes within the cerebral hemispheres bilaterally. There is no midline shift. The visualized paranasal sinuses and mastoid air cells are clear. IMPRESSION: Postoperative changes are again identified compatible with a left occipital craniectomy with surgical mesh overlying the craniectomy site as well as an additional left temporal craniotomy. There is an extracranial fluid collection overlying the surgical mesh along the left occipital craniectomy site which extends caudally into the soft tissues of the upper left neck suggestive of a pseudomeningocele. There is asymmetric prominence of the extra-axial space similar to CSF in attenuation deep to the left occipital craniectomy site and surrounding the lateral left cerebellar hemisphere. There has been interval resolution of the previously noted scattered pneumocephalus. There is again evidence of asymmetric hypodensity along the left aspect of the brainstem which corresponds to abnormal diffusion restriction on the prior MRI dated 02/12/2018 and is suggestive of an evolving area of infarction. Areas of encephalomalacia are identified along the inferior medial cerebellar hemispheres right greater than left. An additional area of encephalomalacia/gliosis is again noted along the anterior left temporal lobe. There is a small amount of asymmetric extra-axial intermediate attenuation noted along the left aspect of the clivus and left petrous apex which may represent a small amount of residual neoplasm/meningioma. There is moderate brain parenchymal volume loss. There are mild nonspecific white matter changes within the cerebral hemispheres bilaterally. The study was interpreted at [facility]. Electronically signed by: CELIA MCPHERSON MD CT CHEST WO Observed: 02/17/2018 Status: F Source: [facility]ERS[facility] CONTRAST 4:06 PM HOSPITALS REPOSITORY Patient Name: DIPESH BERMUDEZ STUDY: CT CHEST WO CONTRAST; 02/17/2018 4:06 pm INDICATION: Signs/Symptoms: neuro change, concern for aspiration, Lie Flat: Yes. COMPARISON: Chest CT from 02/16/2018 ACCESSION NUMBER(S): [id number] ORDERING CLINICIAN: MANOJ OVIEDO TECHNIQUE: Helical data acquisition of the chest was obtained without IV contrast material. Images were reformatted in axial, coronal, and sagittal planes. FINDINGS: Please note that, the examination is limited by respiratory motion artifacts as well as streak artifacts from patient's low lying upper extremities. LUNGS AND AIRWAYS: The trachea and central airways are patent. No endobronchial lesion, however, there is small amount of nonobstructive mucus material seen within trachea and central airways. Note is also made of diffuse bronchial and bronchiolar wall thickening along with multifocal mucous plugging particularly within left lung. The patient is status post left lower lobectomy. Although, the evaluation of lung parenchyma is slightly limited because of respiratory motion artifacts, there is again demonstration of centrilobular nodularity with tree-in-bud along bilateral lung bases, right more than left. Similar changes to a lesser extent are also seen within right upper lobe. Overall appearance is grossly unchanged from prior examination. There is also bandlike bibasilar atelectasis identified. Trace right pleural effusion again identified. No pneumothorax. MEDIASTINUM AND MERRILL, LOWER NECK AND AXILLA: The visualized thyroid gland is within normal limits. No evidence of thoracic lymphadenopathy by CT criteria. Esophagus appears within normal limits as seen. Enteric tube is now seen traversing the esophagus and terminating within distal gastric body/antrum. HEART AND VESSELS: Thoracic aorta is normal in course and caliber with similar mild scattered atherosclerotic calcifications. Main pulmonary artery and its branches are normal in caliber. Moderate coronary artery calcifications again identified. The study is not optimized for evaluation of coronary arteries. The cardiac chambers are not enlarged. No evidence of pericardial effusion. UPPER ABDOMEN: There is unchanged mild nodular thickening of right adrenal gland. The visualized subdiaphragmatic structures demonstrate no remarkable findings. CHEST WALL AND OSSEOUS STRUCTURES: There are no suspicious osseous lesions. Multilevel degenerative changes are present. Remote fracture deformity of left lateral 7th rib again identified. IMPRESSION: 1. Redemonstration of bibasilar, and to lesser extent right upper lobar, centrilobular nodularity with tree-in-bud opacification, grossly unchanged from prior examination. In combination with diffuse bronchial and bronchiolar wall thickening and multifocal mucous plugging, the findings are suspicious for aspiration bronchiolitis/bronchopneumonia. 2. Stable postsurgical changes related left lower lobectomy. 3. Unchanged trace right pleural effusion. 4. Moderate coronary artery calcifications again seen. Electronically signed by: LEXI LI MD TUMOR BOARD Observed: 02/17/2018 Status: UNK Source: [facility]ERS[facility] NOTE-BRAIN/SPINE 3:27 PM HOSPITALS REPOSITORY Note: Tumor Board Note DIPESH BERMUDEZ was presented at Brain/Spine Tumor Board Conference on 16-Feb-[address] Allie Pardaa. Impression: Presented with partial resection 2014 meningioma at outside hospital. Presents with facial weakness and probable recurrence. S/P resection Jan 2018. Recommendations: Rad Onc referral. Radiation. Disclaimer SCC tumor board recommendations represent the consensus opinion of physicians present at a weekly patient care conference. The treating [facility] physician is not always present, and many of the physicians formulating the recommendation have not personally seen or examined the patient under discussion. It is understood that the treating [facility] physician considers the expertise of the Tumor Board Recommendation in formulating his/her plan for the patient. However, in many situations, based on individualized patient considerations, a different plan is determined by the treating physician to be the optimal medical management. Electronic Signatures: Vandana Lee (PT REG) (Signed 23-Feb-2018 13:50) Authored: Tumor Board, Disclaimer Last Updated: 23-Feb-2018 13:50 by Vandana Lee (PT REG) GLUCOSE-POCT Collected: 02/17/2018 Status: F Source: [facility] 3:20 PM [facility] REPOSITORY TYPE CODE TESTS RESULT OUT OF RANGE REFERENCE UNITS LAB GLUP(LOINC) 74 - 99 mg/dL High 186 GLUCOSE-POCT Performed By: #### GLUPO #### [facility] [address] [place] [address] TH CHEST 1 VIEW Observed: 02/17/2018 Status: F Source: IDABEL 12:20 PM [facility] REPOSITORY Patient Name: DIPESH BERMUDEZ STUDY: TH CHEST 1 VIEW; 02/17/2018 12:20 pm INDICATION: Signs/Symptoms: Hypoxia, oxygen requirement,. COMPARISON: Chest radiograph from 02/16/2018 ACCESSION NUMBER(S): [id number] ORDERING CLINICIAN: BRITTANY OSORIO FINDINGS: Enteric tube is again seen coursing below diaphragm and tip not included. The cardiomediastinal silhouette is stable in size and configuration, not enlarged on AP radiograph. Mild aortic knob calcifications again seen. The patient is status post left lower lobectomy. There is similar mild bibasilar bandlike atelectasis. No new focal airspace consolidation, sizeable pleural effusion or pneumothorax. No acute osseous abnormality. IMPRESSION: 1. Unchanged mild bandlike bibasilar and retrocardiac atelectasis without sizable pleural effusions or pneumothorax. 2. Medical devices as above. Electronically signed by: LEXI LI MD GLUCOSE-POCT Collected: 02/17/2018 Status: F Source: [facility] 11:18 AM HOSPITALS REPOSITORY TYPE CODE TESTS RESULT OUT OF RANGE REFERENCE UNITS LAB GLUP(LOINC) 74 - 99 mg/dL High 137 GLUCOSE-POCT Performed By: #### GLUPO #### [facility] [address] [place] [address] Observed: 02/17/2018 Status: F Source: [facility] RESPIRATORY 10:37 AM [facility] REPOSITORY CULT./,LOWER PATIENT: DIPESH BERMUDEZ LOCATION: [facility] BILL#: [id number] : 54 AGE: SEX: M ORDERED BY: BRITTANY OSORIO SOURCE: SPUTUM COLLECTED: 02/17/18 10:37 ANTIBIOTICS AT [facility].: RECEIVED : 02/17/18 11:06 SITE: R E S U L T S GRAM STAIN FINAL 02/18/18 01:39 THE GRAM STAIN INDICATES THAT THE SPECIMEN CONTAINS SIGNIFICANT SALIVARY CONTAMINATION. THE CULTURE WILL NOT BE PROCESSED IT WILL BE OF LIMITED DIAGNOSTIC VALUE.A SPECIMEN OF BETTER QUALITY SHOULD BE SUBMITTED IF CLINICALLY INDICATED. RESPIRATORY CULT./,LOWER CANCELLED 02/18/18 01:41 Performed By: #### RESPL #### [facility] [address] [place] [address] Observed: 02/17/2018 Status: F Source: [facility] BLOOD CULTURE, 10:37 [facility] REPOSITORY BACTERIAL PATIENT: DIPESH BERMUDEZ LOCATION: [facility] BILL#: [id number] : 54 AGE: SEX: M ORDERED BY: BRITTANY OSORIO SOURCE: Blood COLLECTED: 02/17/18 10:37 ANTIBIOTICS AT [facility].: RECEIVED : 02/17/18 11:07 SITE: L midline R E S U L T S BLOOD CULTURE, BACTERIAL FINAL 02/22/18 11:42 No Growth at 1 days No Growth at 2 days No Growth at 3 days No Growth at 4 days NO GROWTH - FINAL REPORT Performed By: #### BLDC #### [facility] [address] [place] [address] Observed: 02/17/2018 Status: F Source: [facility] BLOOD CULTURE, 10:35 AM HOSPITALS REPOSITORY BACTERIAL PATIENT: DIPESH BERMUDEZ LOCATION: [facility] BILL#: [id number] : 54 AGE: SEX: M ORDERED BY: BRITTANY OSORIO SOURCE: Blood COLLECTED: 02/17/18 10:35 ANTIBIOTICS AT [facility].: RECEIVED : 02/17/18 11:08 SITE: R AC PERIPHERAL R E S U L T S BLOOD CULTURE, BACTERIAL FINAL 02/22/18 11:42 No Growth at 1 days No Growth at 2 days No Growth at 3 days No Growth at 4 days NO GROWTH - FINAL REPORT Performed By: #### BLDC #### [facility] [address] [place] [id number] DAILY PROGRESS NOTE Observed: 02/17/2018 Status: COMPLETED Source: [facility] 9:06 AM HOSPITALS REPOSITORY Subjective Data: ID Statement: DIPESH BERMUDEZ is a 67 year old Male who is Hospital Day # 8 and ICU Day #1 and POD #6 for left retrosigmoid craniotomy for tumor resection. Patient transferred to NSU overnight for tenuous respiratory status. 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 On swallow eval and MBS patient noted to have moderate silent aspiration. Strict NPO, NG placed though pulled at least once. First NG was in esophagus, possible aspiration of TF. Since surgery, patient has been intermittently on 45-55% FiO2 and SpO2's have been mostly 88-92 since 02/13. Patient has also been difficult, refusing to cooperate with care team members of decent. Seen by Pulm and ENT on 02/16 for dysphagia and O2 requirements. Steroids started for neurosurgery and for possible COPD. ENT found laryngeal decreased sensation and pharyngeal weakness, though TVC movement was intact bilaterally. Pulm suggest breathing may be due to aspiration and COPD, recommend aggressive pulm therapy and infectious workup. Yesterday evening, was on room air, refusing oxygen, demanding coca cola. REspiratory status declined, required 100% FiO2, satting ~90%, transferred to NSU, aggressive respiratory therapy improved SpO2 to 100%. Kicked nurse forcefully which he states was on purpose while fully oriented and aware, now requires 4-point restraints. Objective Data: Objective Information T PRBPSpO2 Value36.65230325/26075% Date/Time02/17 8: 9: 9: 9: 9:00 Range(36.2C - 36.7C ) (69 - 111 ) (13 - 20 ) (118 - 173 )/ (63 - 104 ) (88% - 100% ) As of 17-Feb-2018 08:00:00, patient is on 14 L/min of oxygen via Venturi mask. Pain with Activity reported at 02/17 6:00: 0 Pain at Rest reported at 02/17 5:53: 0 ---- Intake and Output ----- Mn/Dy/Year TimeIntakeOutputNet Feb 17, 2018 6:00 [id number] Feb 16, 2018 10:00 [id number] Feb 16, 2018 2:00 [id number] The Intake and Output Totals for the last 24 hours are: IntakeOutputNet [id number] Drain and tube details (included in I&O totals) 325 cc Indwelling Catheter - Urethral( 17-Feb-2018 06:00:00 ) Physical Exam: Physical Exam: Neurological: Mental: Agitated, A&Ox4, follows some commands but not cooperative. CN: VFF to counting. Cough intact. Motor: moves all 4 extremities spontaneously Cardiovascular: RRR, normal S1, S2, no MRG. Difficult to assess JVD, thick neck skin. Respiratory/Thorax: Distant breath sound. Intermittent bilateral lower mild rhonchi and crackles. Genitourinary: No flynn Gastrointestinal: S NT ND hypoactive bowel sounds. Constitutional: Sitting in bed, drowsy, occasionally yelling. Extremities: 1+ pulses, trace edema NIHSS: Level of Consciousness: 1 = drowsy LOC Question: 0 = both correct LOC Commands: 0 = obeys both Best Gaze: 1 = partial gaze palsy Visual Field: 0 = no visual loss Facial Paresis: 0 = normal Left Upper Extremity: 1 = drift Right Upper Extremity: 1 = drift Dysarthria: 1 = mild-moderate Left Lower Extremity: 1 = drift Right Lower Extremity: 1 = drift Best Language: 0 = no aphasia Limb Ataxia: 0 = absent Sensory: 0 = absent Neglect: 0 = none NIHSS Score: 7 Allergies: Allergies: Codeine Sulfate: Unknown penicillin: Unknown insulin: Unknown Intolerances: Aspir 81: GI Upset Medications: Medications: Continuous Medications 1. Sodium Chloride 0.9% Infusion: 1000 mL IntraVenous <Continuous> Scheduled Medications 1. Albuterol 2.5mg - Ipratropium 0.5 mg/ 3mL Neb Soln: 3 mL Inhalation Every 4 Hours 2. amLODIPine: 10 mg Oral Daily 3. Atorvastatin: 40 mg Oral Daily 4. Docusate: 100 mg Oral 2 Times a Day 5. Fluticasone 100 microgram -Salmeterol 50 microgram/ Inh: 1 inhalation Inhalation Every 12 Hours 6. Heparin SubCutaneous: 5000 unit(s) SubCutaneous Every 8 Hours 7. hydroCHLOROthiazide: 25 mg Oral Daily 8. Insulin Glargine (Lantus) Injectable: 20 unit(s) SubCutaneous At Bedtime 9. Insulin Lispro Moderate Corrective Scale: unit(s) SubCutaneous Every 4 Hours 10. Lisinopril: 30 mg Oral Daily 11. Nicotine 14 mg/ 24 hour TransDermal: 1 patch TransDermal Every 24 Hours 12. risperiDONE: 3 mg Oral At Bedtime 13. Sennosides: 2 tablet(s) Oral Daily 14. Silodosin (NON - Formulary): 8 mg NasoGastric Tube Daily 15. Sodium Chloride 0.9% Injectable Flush: 10 mL IntraVenous Flush Every 12 Hours 16. Tiotropium 18 micrograms/ Inhalation: 1 inhalation Inhalation Every 24 Hours 17. traZODone: 150 mg Oral At Bedtime 18. Valproic Acid IV Piggy Back (Depacon): 250 mg IntraVenous Piggyback Every 12 Hours 19. Vancomycin 1 gram IVPB/ Premixed Soln 200 mL: 200 mL IntraVenous Piggyback Every 12 Hours PRN Medications 1. Acetaminophen: 650 mg Oral Every 6 Hours 2. Albuterol 2.5mg - Ipratropium 0.5 mg/ 3mL Neb Soln: 3 mL Inhalation Every 2 Hours 3. Bisacodyl Rectal: 10 mg Rectal Daily 4. Cyclobenzaprine: 10 mg Oral 3 Times a Day 5. Dextrose 50% in Water Injectable: 25 gram(s) IntraVenous Push Every 15 Minutes 6. Fleet Adult (Sodium Phosphate) Rectal: 1 enema Rectal Daily 7. Glucagon Injectable: 1 mg IntraMuscular Every 15 Minutes 8. Heparin Flush 10 unit/ mL PF Injectable PRN: 5 mL IntraVenous Flush According to Flush Policy 9. hydrALAZINE Injectable: 10 mg IntraVenous Push Every 6 Hours 10. Lidocaine 1% Injectable (PICC KIT): 1 mL IntraDermal Once 11. Morphine Injectable: 4 mg IntraVenous Push Every 3 Hours 12. Ondansetron Injectable: 4 mg IntraVenous Push Every 6 Hours 13. oxyCODONE Immediate Release: 5 mg Oral Every 4 Hours 14. oxyCODONE Immediate Release: 10 mg Oral Every 4 Hours 15. Polyethylene Glycol: 17 gram(s) Oral Daily Currently Suspended Medications 1. Divalproex Sodium Ext Rel (Depakote ER): 500 mg Oral Every 24 Hours Recent Lab Results: Results: CBC: 02/17/2018 06:01 \ Hgb / \ 15.1 / WBC Plt 12.6 H 331 / Hct \ / 46.0 \ RBC: 5.46 MCV: 84 RFP: 02/17/2018 06:01 NA+ Cl- BUN / 138 94 L 54 H / Glucose 147 H K+ HCO3- Creat \ 4.2 34 H 1.17 \ Calcium : 10.2Anion Gap : 14 Albumin : 3.2 L Phos : 3.8 Coagulation: 02/17/2018 06:20 PT / 11.2 / -------< INR < 1.0 PTT\ 27 \ Recent Arterial Blood Gas Results 02/17/2018 06:00 [id number] 24 h range: ( 58 - 80 ) pH7.49 24 h range: ( 7.47 - 7.49 ) [id number] 24 h range: ( 44 - 44 ) SO298 24 h range: ( 93 - 98 ) Base Excess8.8 24 h range: ( 7.1 - 8.8 ) Zewsesltttx00.5 24 h range: ( 32 - 33.5 ) Results: Conclusion: [facility] Venous Duplex Ultrasound for DVT [Feb 17 2018 8:38AM] Prelim report shows no DVTs bilaterally Impression: Xray Chest 1 View [Feb 17 2018 8:22AM] 1. Unchanged mild bibasilar retrocardiac bandlike atelectasis, better seen on CT scan from earlier same day. 2. Medical support devices as described above. Impression: CT Chest w/wo Contrast [Feb 16 2018 9:15AM] 1. There is no evidence of central, lobar, proximal segmental pulmonary embolism. Limited evaluation for subsegmental pulmonary embolism secondary to motion artifact. 2. Patchy opacity in the right lower lobe and left lung base with areas of tree-in-bud appearance and mild diffuse bronchial and bronchial wall thickening suggestive of small airway disease/bronchiolitis. Correlation for concern for infection. Also please correlate with concern for aspiration 3. Postsurgical changes in the left lung, apparently status post left lower lobectomy. Please correlate with surgical history. 4. Mild nodular thickening of the right adrenal gland. 5. Moderatecoronary artery calcification. 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 On swallow eval and MBS patient noted to have moderate silent aspiration. Strict NPO, NG placed though pulled at least once. First NG was in esophagus, possible aspiration of TF. Since surgery, patient has been intermittently on 45-55% FiO2 and SpO2's have been mostly 88-92 since 02/13. Patient has also been difficult, refusing to cooperate with care team members of [facility]. Seen by Pulm and ENT on 02/16 for dysphagia and O2 requirements. Steroids started for neurosurgery and for possible COPD. ENT found laryngeal decreased sensation and pharyngeal weakness, though TVC movement was intact bilaterally. Pulm suggest breathing may be due to aspiration and COPD, recommend aggressive pulm therapy and infectious workup. Plan: Plan: Neuro: 02/11 s/p L crani for tumor resection. 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 Dobhoff in. May need PEG #agitation - delirium vs. baseline personality - home risperdal 3 (continued) - trazodone 100 at bedtime (increased to 150) - valproate 500 ER (suspended) - Avoid sedation at this time with tenuous respiratory status. Pulm: #Hypoxic hypercapnic respiratory failure - COPD exacerbation vs. Aspiration PNA vs. decreased respiratory drive from brainstem injury #COPD: - Duonebs q4 - Advair switched to pulmicort because not cooperating with inhaler - on medrol taper 4mg -> 90-28-31-8-4. #Concern for aspiration PNA - Pulm consulted - Keep HOB 30 degrees - Suctioning. Afebrile, WBC 12 (lowest since admission -Aggressive RT physiotherapy - Wean FiO2 as tolerated - Sputum cx, 2x BCX on 02/17 - Vanc started 02/17, may need HCAP aspiration coverage for mild pcn allergy: vanc, cefepime 2g q8, azithro 500 q25, metronidaazole 500 q8. CV/Hemodynamics: #HTN: on amlodipine 10, hctz 25, lisinopril 30 #DLD: continue home atorva GI: #Dysphagia - Dobhoff on TF. May need PE Renal/: - Daily I/O - On silodosin Hematologic: No active issues ID: #Possible aspiration PNA: above Endocrine: #DM: - Home lantus 40 - On lantus 20 daily - SSI Trauma/MSK/Ortho/Skin: No active issues Other: Smoker. on nicotine patch Labs: Daily: CBC, RFP, Mg, Ca Ion Weekly: Pre-albumin, CRP Fluids: NS 75 cc/hr Diet: NPO. Dobhoff. Isosource 50cc Access: Midline R side 02/15 DVT PPX: SQH GI PPX: Senna/docusate Sleep/Delirium PPX: Re-orient Dispo: Acute rehab Code: Will confirm with patient. Full code in interem Code Status: Code StatusFull Code Signature/Cosignature/Attestation: Attending AttestationI saw and evaluated the patient. I personally obtained the gonzalez and critical portions of the history and physical exam or was physically present for gonzalez and critical portions performed by the resident/fellow. I reviewed the resident/fellows documentation and discussed the patient with the resident/fellow. I agree with the resident/fellows medical decision making as documented in the resident/fellows note with the exception/addition of the following: I personally evaluated the patient (as noted in the above attestation) on 17-Feb-2018 Comments/ Additional Findings PNA, on therapy Critical Care PatientI have reviewed and evaluated the most recent data and results, personally examined the patient, and formulated the plan of care as presented above. This patient was critically ill and required continued critical care treatment. Teaching and any separately billable procedures are not included in the time calculation. Billing Provider Critical Care Time35 minute(s) Primary Critical Care Issue/Treatment (See Assessment and Plan for greater detail)-- For the nature of the critical condition and treatment, this documentation has been prepared by the attending physician/CHIRAG- billing provider of these critical care services. Electronic Signatures: Brittany Osorio (Resident)) (Signed 17-Feb-2018 10:52) Authored: Subjective Data, Objective Data, Assessment and Plan, Signature/Cosignature/Attestation Israel Hernandez) (Signed 17-Feb-2018 12:11) Authored: Signature/Cosignature/Attestation Last Updated: 17-Feb-2018 12:11 by Israel Hernandez) GLUCOSE-POCT Collected: 02/17/2018 Status: F Source: [facility] 8:56 AM [facility]ALS REPOSITORY TYPE CODE TESTS RESULT OUT OF RANGE REFERENCE UNITS LAB GLUP(LOINC) 74 - 99 mg/dL High 139 GLUCOSE-POCT Performed By: #### GLUPO #### [facility] [address] [place] [address] [facility] VENOUS DUPLEX Observed: 02/17/2018 Status: F Source: [facility] ULTRASOUND DVT 7:55 AM HOSPITALS REPOSITORY [facility], [address] [place], [place] [id number] and Vascular Lab Report Lower Venous Duplex Ultrasound Patient Name: DIPESH BERMUDEZ Reading Physician: [id number] Callaway MD Study Date: 02/17/2018 Referring Physician: Allie Parada MD MRN/PID: [id number] PCP: Accession/Order#: [id number] Report to: Date of : 1950 Technologist: Genaro Malone RVT Gender: M Technologist 2: Dyana BENAVIDEZT, [facility] Admission Status: Inpatient Location Performed: [facility] Diagnosis/ICD: R60.0-Localized (leg) edema Procedure/CPT: 20882 Peripheral venous duplex scan for DVT complete-[id number] CONCLUSIONS: Right Lower Venous: No evidence of acute deep vein thrombus visualized in the right lower extremity. Left Lower Venous: No evidence of acute deep vein thrombus visualized in the left lower extremity. Imaging AND Doppler Findings: Right Compressible Thrombus CFV Yes None PFV Yes None FV Proximal Yes None FV Mid Yes None FV Distal Yes None Popliteal Yes None Peroneal Yes None PTV Yes None Left Compress Thrombus CFV Yes None PFV Yes None FV Proximal Yes None FV Mid Yes None FV Distal Yes None Popliteal Yes None Peroneal Yes None PTV Yes None [id number] Alexa Callaway MD Final DAILY PROGRESS Observed: 02/17/2018 Status: COMPLETED Source: [facility]NEUROSURGERY 7:31 AM HOSPITALS REPOSITORY Service: Neurosurgery Subjective Data: DIPESH BERMUDEZ is a 67 year old Male who is Hospital Day # 8 and POD #6 for left retrosigmoid craniotomy for tumor resection. 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 vMRI done 02/11 s/p L crani for tumor resection. 02/12 MRI POC 02/13 Code White 10 code white, concern for aspiration, transferred to NSU for increased O2 requirement Plan - NSU - pain control - CTH given concern for weakness - labs - MANAGER PROCESS IMPROVEMENT-NPO (repeat swallow eval) - pulmonary recs - PTOT-rehab - teds. scds, SQH Signature/Cosignature/Attestation: Attending AttestationI reviewed the resident/fellows documentation and discussed the patient with the resident/fellow. I agree with the resident/fellows medical decision making as documented in the residents note. Electronic Signatures: Augustine Cardoza) (Signed 25-Feb-2018 08:25) Authored: Signature/Cosignature/Attestation Co-Signer: Service, Subjective Data, Objective Data, Assessment and Plan, Signature/Cosignature/Attestation Manoj Oviedo (Resident)) (Signed 17-Feb-2018 07:34) Authored: Service, Subjective Data, Objective Data, Assessment and Plan, Signature/Cosignature/Attestation Last Updated: 25-Feb-2018 08:25 by Augustine Cardoza) EMR ADDON Collected: 02/17/2018 Status: F Source: [facility] 7:21 AM [facility] REPOSITORY TYPE CODE TESTS RESULT OUT OF REFERENCE UNITS RANGE LAB EMRAC(LOIN C) ADDON CONFIRMATION REQUEST REC'D Performed By: #### EMRAD #### NO LOCATION NEEDED COAGULATION SCREEN Collected: 02/17/2018 Status: F Source: [facility] 6:20 AM [facility] REPOSITORY TYPE CODE TESTS RESULT OUT OF REFERENCE UNITS RANGE LAB PT(LOINC) 9.8 - 12.7 sec PROTHROMBIN TIME 11.2 LAB INR(LOINC) 0.9 - 1.1 PT, INR 1.0 LAB APTT(LOINC 25 - 36 sec ) APTT 27 Result Comment: THE APTT IS NO LONGER USED FOR MONITORING UNFRACTIONATED HEPARIN THERAPY. FOR MONITORING HEPARIN THERAPY, USE THE HEPARIN ASSAY. Performed By: #### COAGS #### [facility] [address] [place] [address] RENAL FUNCTION PANEL Collected: 02/17/2018 Status: F Source: [facility] 6:01 AM [facility]OSPITALS REPOSITORY TYPE CODE TESTS RESULT OUT OF REFERENCE UNITS RANGE LAB GLU(LOINC) 74 - 99 mg/dL GLUCOSE High 147 LAB SOD(LOINC) 136 - 145 mmol/L SODIUM 138 LAB K(LOINC) 3.5 - 5.3 mmol/L POTASSIUM 4.2 LAB CHLOR(LOIN 98 - 107 mmol/L C) Low CHLORIDE 94 LAB BIC(LOINC) 21 - 32 mmol/L BICARBONATE High 34 LAB ANGAP(LOIN 10 - 20 mmol/L C) ANION GAP 14 LAB UREA(LOINC 6 - 23 mg/dL ) UREA High NITROGEN 54 LAB CREA(LOINC 0.50 - 1.30 mg/dL ) CREATININE 1.17 LAB GFRFN(LOIN >60 mL/min/1.7 C) 3m2 GFR-NON AM. >60 LAB GFRAA(LOIN >60 mL/min/1.7 C) 3m2 GFR- AM. >60 Result Comment: CALCULATIONS OF ESTIMATED GFR ARE PERFORMED USING THE MDRD STUDY EQUATION FOR THE IDMS-TRACEABLE CREATININE METHODS. CLIN CHEM 2007;53:766-72 LAB CA(LOINC) 8.6 - 10.6 mg/dL CALCIUM 10.2 LAB PHOS(LOINC) 2.5 - 4.9 mg/dL PHOSPHORUS 3.8 Result Comment: The performance characteristics of phosphorus testing in heparinized plasma have been validated by the individual laboratory site where testing is performed. Testing on heparinized plasma is not approved by the FDA; however, such approval is not necessary. LAB ALB(LOINC) 3.4 - 5.0 g/dL Low ALBUMIN 3.2 Performed By: #### RENAL #### [facility] [address] [place] [address] CBC Collected: 02/17/2018 Status: F Source: [facility] 6:01 AM [facility]ITALS REPOSITORY TYPE CODE TESTS RESULT OUT OF REFERENCE UNITS RANGE LAB WBCR(LOINC 4.4 - 11.3 x10E9/L ) WBC High 12.6 LAB NRBC(LOINC 0.0-0.0 /100 WBC ) NUCLEATED RBC 0.0 LAB RBCCT(LOIN 4.50 - 5.90 x10E12/L C) RBC 5.46 LAB HGB(LOINC) 13.5 - 17.5 g/dL HGB 15.1 LAB HCT(LOINC) 41.0 - 52.0 % HCT 46.0 LAB MCV(LOINC) 80 - 100 fL MCV 84 LAB MCHC2(LOIN 32.0 - 36.0 g/dL C) MCHC 32.8 LAB PLTCT(LOIN 150 - 450 x10E9/L C) PLT 331 LAB RDWCV(LOIN 11.5 - 14.5 % C) RDW-CV 14.4 Performed By: #### CBC #### [facility] [address] [place] [address] PROCALCITONIN Collected: 02/17/2018 Status: F Source: [facility] 6:01 AM [facility]OSPITALS REPOSITORY TYPE CODE TESTS RESULT OUT OF REFERENCE UNITS RANGE LAB PCALC(LOIN <=0.07 ng/mL C) PROCALCITONIN 0.07 Result Comment: Note new reference range and methodology as of 06/29/2017. . Procalcitonin (PCT) results measured serially can aid in decision-making for antibiotic discontinuation in patients with suspected or confirmed sepsis in conjunction with additional clinical information. Antibiotic discontinuation may be considered with a change in PCT of >80% from the peak result or when PCT falls below 0.50 ng/mL. . Procalcitonin results should not be used in isolation but should be interpreted in conjunction with additional clinical and laboratory findings. Procalcitonin results should not be used to guide the initiation of antibiotic therapy. . Falsely low PCT values in the presence of bacterial infection may occur in early infection, with atypical pathogens, localized infections, and subacute infectious endocarditis. . Falsely elevated results outside of severe bacterial infection/sepsis may be seen in patients with renal failure or insufficiency, severe trauma or chao, recent major abdominal/cardiac surgery, acute multi-organ failure, rarely in patients with medullary thyroid carcinoma and rare neuroendocrine tumors, and non-specific interfering antibodies (heterophile antibodies, rheumatoid factor, human anti-mouse antibodies (HAMA), etc). . Performance of the PCT test in pediatric patients (<18yo), women, immunocompromised patients, and patients on immunomodulatory medications has not been evaluated. Performed By: #### PCALC #### [facility] [address] [place], [place] [id number] ARTERIAL FULL PANEL Collected: 02/17/2018 Status: F Source: [facility] 6:00 AM [facility]OSPITALS REPOSITORY TYPE CODE TESTS RESULT OUT OF REFERENCE UNITS RANGE LAB PHART(LOIN 7.38 - 7.42 C) pH High 7.49 LAB PCO2A(LOIN 38 - 42 mmHg C) PCO2 High 44 LAB PO2A(LOINC 85 - 95 mmHg ) PO2 Low 80 LAB TEMP(LOINC degrees C ) PATIENT TEMPERATURE 37.0 Result Comment: NOTE: PATIENT RESULTS ARE NOT CORRECTED FOR TEMPERATURE. LAB SO2%A(LOINC) 94 - 100 % SO2 98 LAB HCTN(LOINC) 41.0 - % 52.0 HCT 49.0 LAB SODN(LOINC) 136 - 145 mmol/L Low SODIUM 132 LAB POTN(LOINC) 3.5 - 5.3 mmol/L POTASSIUM 3.9 LAB CHLN(LOINC) 98 - 107 mmol/L CHLORIDE 98 LAB IONCA(LOINC) 1.10 - mmol/L 1.33 CALCIUM,IONIZED 1.31 LAB GLUN(LOINC) 74 - 99 mg/dL GLUCOSE High 148 LAB LACTN(LOINC) 0.4 - 2.0 mmol/L LACTATE 1.0 LAB BSEXB(LOINC) -2.0 - 3.0 mmol/L BASE High EXCESS-BLOOD 8.8 LAB BICAR(LOINC) 22.0 - mmol/L 26.0 BICARB, High CALCULATED 33.5 LAB HGBNC(LOINC) 13.5 - g/dL 17.5 HGB,CALCULATED 16.7 LAB ANGPN(LOINC) 10 - 25 mmol/L Low ANION GAP 4 Performed By: #### [id number] #### [facility] [address] [facility] [place] [address] GLUCOSE-POCT Collected: 02/17/2018 Status: F Source: [facility] 3:40 AM [facility]ITALS REPOSITORY TYPE CODE TESTS RESULT OUT OF RANGE REFERENCE UNITS LAB GLUP(LOINC) 74 - 99 mg/dL High 172 GLUCOSE-POCT Performed By: #### GLUPO #### [facility] [address] [facility] [place] [address] GLUCOSE-POCT Collected: 02/17/2018 Status: F Source: [facility] 12:10 AM [facility]ITALS REPOSITORY TYPE CODE TESTS RESULT OUT OF RANGE REFERENCE UNITS LAB GLUP(LOINC) 74 - 99 mg/dL High 218 GLUCOSE-POCT Performed By: #### GLUPO #### [facility] [address] [place] [address] TH CHEST 1 VIEW Observed: 02/16/2018 Status: F Source: [facility] 10:35 PM HOSPITALS REPOSITORY Patient Name: DIPESH BERMUDEZ STUDY: CHEST 1 VIEW; 02/16/2018 10:35 pm INDICATION: Signs/Symptoms: code white. COMPARISON: Chest radiograph from 02/15/2018 and abdominal radiograph from 02/16/2018; CT angiogram chest from 02/16/2018 ACCESSION NUMBER(S): [id number] ORDERING CLINICIAN: NORMAN DANIEL FINDINGS: Enteric tube is now seen coursing below diaphragm and tip not included. CARDIOMEDIASTINAL SILHOUETTE: Cardiomediastinal silhouette is normal in size and configuration. Minimal aortic knob calcifications again seen. LUNGS: The patient is status post left lower lobectomy. There is similar mild bibasilar atelectasis. No new focal airspace consolidation, sizeable pleural effusion or pneumothorax. ABDOMEN: No remarkable upper abdominal findings. BONES: No acute osseous changes. IMPRESSION: 1. Unchanged mild bibasilar retrocardiac bandlike atelectasis, better seen on CT scan from earlier same day. 2. Medical support devices as described above. I personally reviewed the images/study and I agree with the findings as stated. This study was interpreted at [facility], [place], [place]. Electronically signed by: LEXI LI MD ARTERIAL BLOOD GAS Collected: 02/16/2018 Status: F Source: [facility] 10:30 PM [facility]OSPITALS REPOSITORY TYPE CODE TESTS RESULT OUT OF REFERENCE UNITS RANGE LAB PHART(LOIN 7.38 - 7.42 C) pH High 7.47 LAB PCO2A(LOIN 38 - 42 mmHg C) PCO2 High 44 LAB PO2A(LOINC 85 - 95 mmHg ) PO2 Low 58 LAB TEMP(LOINC degrees C ) PATIENT TEMPERATURE 37.0 Result Comment: NOTE: PATIENT RESULTS ARE NOT CORRECTED FOR TEMPERATURE. LAB SO2%A(LOINC) 94 - 100 % Low SO2 93 LAB BSEXB(LOINC) -2.0 - 3.0 mmol/L BASE High EXCESS-BLOOD 7.1 LAB BICAR(LOINC) 22.0 - mmol/L 26.0 BICARB, High CALCULATED 32.0 Performed By: #### [id number] #### [facility] [address] [place] [address] DAILY PROGRESS Observed: 02/16/2018 Status: COMPLETED Source: [facility] NOTE-PULMONOLOGY 8:46 PM HOSPITALS REPOSITORY Service: Pulmonology Subjective Data: DIPESH BREMUDEZ is a 67 year old Male who is Hospital Day # 7 and POD #5 for left retrosigmoid craniotomy for tumor resection. Additional Information: Patient with CT chest done overnight - no PE identified. CT chest otherwise showed history of LLL resection and patchy opacities in the bilateral lung bases with TIB appearance, plus mild diffuse bronchial wall thickening. Patient failed additional swallow evaluations today and continues to be NPO with recommendation to have feeding tube replaced to facilitate nutrition. Per RN patient ripped off oxygen this morning at which point SpO2 was found to be 88% while on RA. Objective Data: Objective Information: T PRBPSpO2 [id number]/8490% Date/Time02/16 17:00103 18:0013 18:00103 18:00103 18:00 Range(36.5C - 36.8C ) (82 - 107 ) (17 - 21 ) (157 - 173 )/ (81 - 87 ) (88% - 95% ) Pain at Rest reported at 02/16 13:00: 0 ---- Intake and Output ----- Mn/Dy/Year TimeIntakeOutputNet Feb 16, 2018 2:00 [id number] Feb 16, 2018 6:00 [id number] Feb 15, 2018 10:00 [id number] The Intake and Output Totals for the last 24 hours are: IntakeOutputNet [id number] Physical Exam: Constitutional: Awake, alert, NAD Eyes: EOMI Head/Neck: Neck supple, normal ROM Respiratory/Thorax: Effort appears normal, patient with diffuse rhonchi bilaterally Cardiovascular: RRR, normal S1/S2 Gastrointestinal: Soft, NT, ND Extremities: Trace leg edema noted, lower extremities cool to touch Neurological: Alert, oriented x 3, dysarthric Skin: Warm and dry, no diaphoresis Medication: Medications: CARDIOVASCULAR AGENTS: 1. Lisinopril: 30 mg Oral Daily 2. Silodosin (NON - Formulary): 8 mg NasoGastric Tube Daily 3. amLODIPine: 10 mg Oral Daily 4. hydroCHLOROthiazide: 25 mg Oral Daily 5. hydrALAZINE Injectable: 10 mg IntraVenous Push Every 6 Hours PRN CENTRAL NERVOUS SYSTEM AGENTS: 1. Acetaminophen: 650 mg Oral Every 6 Hours PRN 2. Morphine Injectable: 4 mg IntraVenous Push Every 3 Hours PRN 3. oxyCODONE Immediate Release: 5 mg Oral Every 4 Hours PRN 4. oxyCODONE Immediate Release: 10 mg Oral Every 4 Hours PRN 5. Valproic Acid IV Piggy Back (Depacon): 250 mg IntraVenous Piggyback Every 12 Hours 6. Ondansetron Injectable: 4 mg IntraVenous Push Every 6 Hours PRN 7. Cyclobenzaprine: 10 mg Oral 3 Times a Day PRN COAGULATION MODIFIERS: 1. Heparin Flush 10 unit/ mL PF Injectable PRN: 5 mL IntraVenous Flush According to Flush Policy PRN 2. Heparin SubCutaneous: 5000 unit(s) SubCutaneous Every 8 Hours GASTROINTESTINAL AGENTS: 1. Bisacodyl Rectal: 10 mg Rectal Daily PRN 2. Docusate: 100 mg Oral 2 Times a Day 3. Fleet Adult (Sodium Phosphate) Rectal: 1 enema Rectal Daily PRN 4. Polyethylene Glycol: 17 gram(s) Oral Daily PRN 5. Sennosides: 2 tablet(s) Oral Daily METABOLIC AGENTS: 1. Insulin Glargine (Lantus) Injectable: 20 unit(s) SubCutaneous At Bedtime 2. Insulin Lispro Moderate Corrective Scale: unit(s) SubCutaneous Every 4 Hours 3. Atorvastatin: 40 mg Oral Daily 4. Dextrose 50% in Water Injectable: 25 gram(s) IntraVenous Push Every 15 Minutes PRN 5. Glucagon Injectable: 1 mg IntraMuscular Every 15 Minutes PRN MISCELLANEOUS AGENTS: 1. Lidocaine 1% Injectable (PICC KIT): 1 mL IntraDermal Once PRN 2. Nicotine 14 mg/ 24 hour TransDermal: 1 patch TransDermal Every 24 Hours NUTRITIONAL PRODUCTS: 1. Sodium Chloride 0.9% Infusion: 1000 mL IntraVenous <Continuous> 2. Sodium Chloride 0.9% Injectable Flush: 10 mL IntraVenous Flush Every 12 Hours PSYCHOTHERAPEUTIC AGENTS: 1. traZODone: 150 mg Oral At Bedtime 2. risperiDONE: 3 mg Oral At Bedtime RESPIRATORY AGENTS: 1. Albuterol 2.5mg - Ipratropium 0.5 mg/ 3mL Neb Soln: 3 mL Inhalation Every 2 Hours PRN 2. Fluticasone 100 microgram -Salmeterol 50 microgram/ Inh: 1 inhalation Inhalation Every 12 Hours 3. Tiotropium 18 micrograms/ Inhalation: 1 inhalation Inhalation Every 24 Hours Currently Suspended Medications 1. Divalproex Sodium Ext Rel (Depakote ER): 500 mg Oral Every 24 Hours Recent Lab Results: Results: I have reviewed these laboratory results: Arterial Full Panel 15-Feb-2018 08:53:00 ResultValue pH, Arterial 7.45 H pCO2, Arterial 47 H pO2, Arterial 57 L Patient-Temperature 37.0 SO2, Arterial 92 L HCT 42.0 Sodium-Level 134 L Potassium-Level 4.3 Chloride-Level 98 Calcium, Ionized-Level 1.39 H Glucose-Level 226 H Lactate-Level 1.4 Base Excess-Blood 7.4 H Bicarbonate, Calculated, Arterial 32.7 H HGB, Calculated 14.3 Anion Gap-Level 8 L Radiology Results: Results: Impression: 1. Abnormal modified barium swallow study; laryngeal penetration and aspiration as above. Correlate with detailed report from speech pathologist for dietary recommendations. Xray Complete Pharyngeal + Speech Eval [Feb 16 2018 5:13PM] Conclusion: CONCLUSIONS: 1. The left ventricular systolic function is normal with a 55-60% estimated ejection fraction. 2. Spectral Doppler shows an impaired relaxation pattern of left ventricular diastolic filling. 3. There is moderate concentric left ventricular hypertrophy. Echocardiogram [Feb 16 2018 12:46PM] Impression: 1. There is no evidence of central, lobar, proximal segmental pulmonary embolism. Limited evaluation for subsegmental pulmonary embolism secondary to motion artifact. 2. Patchy opacity in the right lower lobe and left lung base with areas of tree-in-bud appearance and mild diffuse bronchial and bronchial wall thickening suggestive of small airway disease/bronchiolitis. Correlation for concern for infection. Also please correlate with concern for aspiration 3. Postsurgical changes in the left lung, apparently status post left lower lobectomy. Please correlate with surgical history. 4. Mild nodular thickening of the right adrenal gland. 5. Moderatecoronary artery calcification. CT Chest w/wo Contrast [Feb 16 2018 9:15AM] Assessment and Plan: Assessment: 67 yo M with history of meningioma s/p craniotomy/resection (2013), HTN, DM, COPD, tobacco abuse, admitted currently under Neurosurgery following repeat craniotomy/tumor resection, noted to have multiple episodes of hypoxia for which Pulmonary has been consulted. CT chest done overnight, summarized as per HPI, as well as TTE which shows preserved EF 55-60% and diastolic disease. #History of COPD - likely chronic bronchitis given bronchial thickening on CT scan; due to lack of PFT data severity of COPD not characterized at this point #Dysphagia requiring strict NPO, with chronic aspiration #Bilateral lung atelectasis #Hypoxia, multifactorial, but CT-PE negative for PE #Heavy secretions with weak cough #CYNTHIA not treated currently (patient non-adherent to home CPAP) RECS: 1. Continue strict NPO & keep head of bed elevated to 30 degrees 2. Would recommend sputum cx and pro-calcitonin 3. Continue Spiriva, Advair, and albuterol nebs PRN 4. Aggressive chest PT (involve RT) & encourage use of incentive spirometry 5. PT/OT, OOB to chair if able 6. Wean FiO2; please assess for home oxygen needs prior to discharge 7. Encourage smoking cessation 8. Outpatient follow-up with Sleep Medicine regarding CYNTHIA (at the [facility]) Will follow. Please page [phone] with questions. Patient seen, examined, and discussed with staff Dr. Ramirez. Signature/Cosignature/Attestation: Attending AttestationI saw and evaluated the patient. I personally obtained the gonzalez and critical portions of the history and physical exam or was physically present for gonzalez and critical portions performed by the resident/fellow. I reviewed the resident/fellows documentation and discussed the patient with the resident/fellow. I agree with the resident/fellows medical decision making as documented in the residents note. I personally evaluated the patient (as noted in the above attestation) on 16-Feb-2018 Electronic Signatures: Allan Babcock (Fellow)) (Signed 16-Feb-2018 21:05) Authored: Service, Subjective Data, Objective Data, Assessment and Plan, Signature/Cosignature/Attestation Shagufta Ramirez) (Signed 22-Feb-2018 09:37) Authored: Signature/Cosignature/Attestation Co-Signer: Service, Subjective Data, Objective Data, Assessment and Plan, Signature/Cosignature/Attestation Last Updated: 22-Feb-2018 09:37 by Shagufta Ramirez) CONSULT-OTOLARYNGOLOGY Observed: Status: COMPLETED Source: [facility] 02/16/2018 8:27 PM HOSPITALS REPOSITORY Service: Service: Otolaryngology History of Present Illness: HPI: CC/Reason for Consult: dysphagia Consulted by: Tal HPI: Per daily neurosurgery notes this is a 67 year-old male with a h/o HTN, DM, previous Left crani for meningioma who presented with worsening gait and diplopia, imaging with residual Left petroclival meningioma. 02/10 s/p angio with no target for embolization and taken to OR 02/11 and had a left craniotomy for tumor resection. Patient reports no issues with voice but appreciates that he has significant trouble with speech. No trouble with secretions that he appreciates. No issues with shortness of breath. Past medical history: as above PSH: Craniotomy x 2, left lung resection for rib poking through my lung in the s (per pt, 2/3 left lung removed) SH: Current smoker 1 ppd x 51 yrs FH: Sister withith lung cancer unknown type Current medications: Reviewed as noted in current orders Allergies: codeine, PCN, insulin, ASA ROS: A full review of systems was obtained and all other systems are negative for complaint Physical Exam: CONSTITUTIONAL: No acute distress, obese VOICE: No hoarseness, wet voicing, moderate dysarthria RESPIRATION: Breathing comfortably, no stridor CV: No clubbing/cyanosis/edema in hands EYES: EOM intact, sclera normal NEURO: Alert and oriented times 3, Cranial nerves II-XII grossly intact and symmetric bilaterally except for: - right XI - weak palatal raise HEAD AND FACE: Symmetric facial features, no masses or lesions, sinuses non-tender to palpation SALIVARY GLANDS: Parotid and submandibular glands normal bilaterally EARS: Normal external ears, grossly normal hearing NOSE: External nose midline, anterior rhinoscopy is normal with limited visualization to the anterior aspect of the interior turbinates, no bleeding or drainage, no lesions ORAL CAVITY/OROPHARYNX/LIPS: Normal mucous membranes, normal floor of mouth/tongue/OP, no masses or lesions PHARYNGEAL CAMPOS: No masses or lesions NECK/LYMPH: No LAD, no thyroid masses, trachea midline SKIN: Neck skin is without scar or injury PSYCH: Alert and oriented with appropriate mood and affect Radiology reviewed: I personally reviewed the MBS from 02/16 and this is my impression: - pooling of secretions and poor clearance of bolus Other Studies/Information: I personally reviewed the oracle identity management consultant notes or primary team notes as well as the following other studies: Speech note: MBSS completed. Informed verbal consent obtained. Given trials of thin, nectar and honey thick liquids. Pt presents with significantly impaired bolus formation/control, resulting in premature spillage into the pharynx across tested consistencies. Significantly delayed swallow onset with decreased laryngeal elevation/anterior pull and laryngeal vestibular closure resulting in SILENT ASPIRATION in moderate amounts during the swallow with thin liquids and after the swallow with nectar and honey thick liquids 2/2 pharyngeal residue. Given increased amount of pharyngeal residue with thicker viscosities, puree consistency not tested at this time. MANAGER PROCESS IMPROVEMENT recommends STRICT NPO. Question need for fci means nutrition/hydration. HANDLE SANDER OPERATOR (Dorina) aware of results/recommendations. Will follow. Flexible Endoscopy: - Indication: dysphagia - Consent for procedure was verbally obtained - Anesthesia: topical lidocaine/neosynephrine - Findings: the nasal cavity, nasopharynx, oropharynx, hypopharynx, and larynx were normal except as follows: - left septal deviation - mild oropharyngeal redundant tissue - bilateral TVC movement - pooling of secretions in the valleculae and pyriforms with gross aspiration - decreased laryngeal sensation - weak pharyngeal squeeze . Assessment and Plan: 67 year-old male s/p left craniotomy now with dysarthria and dysphagia. Scope demonstrated generalized pharyngeal weakness with gross aspiration. - no evidence of mass or lesion of the oropharynx - continued speech therapy and strengthening exercises - no further ENT needs at this time, will staff tomorrow Servando Ernandez MD, PGY-4 Otolaryngology-[facility] Personal pager [phone] Weekend/Evening pager [phone], ADDENDUM Patient seen and staffed with attending physician, Dr. Ba Patient is now s/p code white for desats requiring nonbreather ENT rescoped patient. Scope again shows significant pooling of secretions in valleculae, decreased lryngeal sensation, and lowell aspiration Symptoms correlate with generalized pharyngeal weakness - continue MANAGER PROCESS IMPROVEMENT therapy and strengthening exercises - can consider glycopyrrolate for secretions if medically cleared - no further intervention from ENT, signing off ENT [id number] Allergies: Codeine Sulfate: Unknown penicillin: Unknown insulin: Unknown Intolerances: Aspir 81: GI Upset Objective: Objective Information: T PRBPSpO2 [id number]/8490% Date/Time02/16 17:0010 18:001 18:00103 18:0013 18:00 Range(36.5C - 36.8C ) (82 - 107 ) (17 - 21 ) (157 - 173 )/ (81 - 87 ) (88% - 95% ) Medications: Medications: CARDIOVASCULAR AGENTS: 1. Lisinopril: 30 mg Oral Daily 2. Silodosin (NON - Formulary): 8 mg NasoGastric Tube Daily 3. amLODIPine: 10 mg Oral Daily 4. hydroCHLOROthiazide: 25 mg Oral Daily 5. hydrALAZINE Injectable: 10 mg IntraVenous Push Every 6 Hours PRN CENTRAL NERVOUS SYSTEM AGENTS: 1. Acetaminophen: 650 mg Oral Every 6 Hours PRN 2. Morphine Injectable: 4 mg IntraVenous Push Every 3 Hours PRN 3. oxyCODONE Immediate Release: 5 mg Oral Every 4 Hours PRN 4. oxyCODONE Immediate Release: 10 mg Oral Every 4 Hours PRN 5. Valproic Acid IV Piggy Back (Depacon): 250 mg IntraVenous Piggyback Every 12 Hours 6. Ondansetron Injectable: 4 mg IntraVenous Push Every 6 Hours PRN 7. Cyclobenzaprine: 10 mg Oral 3 Times a Day PRN COAGULATION MODIFIERS: 1. Heparin Flush 10 unit/ mL PF Injectable PRN: 5 mL IntraVenous Flush According to Flush Policy PRN 2. Heparin SubCutaneous: 5000 unit(s) SubCutaneous Every 8 Hours GASTROINTESTINAL AGENTS: 1. Bisacodyl Rectal: 10 mg Rectal Daily PRN 2. Docusate: 100 mg Oral 2 Times a Day 3. Fleet Adult (Sodium Phosphate) Rectal: 1 enema Rectal Daily PRN 4. Polyethylene Glycol: 17 gram(s) Oral Daily PRN 5. Sennosides: 2 tablet(s) Oral Daily METABOLIC AGENTS: 1. Insulin Glargine (Lantus) Injectable: 20 unit(s) SubCutaneous At Bedtime 2. Insulin Lispro Moderate Corrective Scale: unit(s) SubCutaneous Every 4 Hours 3. Atorvastatin: 40 mg Oral Daily 4. Dextrose 50% in Water Injectable: 25 gram(s) IntraVenous Push Every 15 Minutes PRN 5. Glucagon Injectable: 1 mg IntraMuscular Every 15 Minutes PRN MISCELLANEOUS AGENTS: 1. Lidocaine 1% Injectable (PICC KIT): 1 mL IntraDermal Once PRN 2. Nicotine 14 mg/ 24 hour TransDermal: 1 patch TransDermal Every 24 Hours NUTRITIONAL PRODUCTS: 1. Sodium Chloride 0.9% Infusion: 1000 mL IntraVenous <Continuous> 2. Sodium Chloride 0.9% Injectable Flush: 10 mL IntraVenous Flush Every 12 Hours PSYCHOTHERAPEUTIC AGENTS: 1. traZODone: 150 mg Oral At Bedtime 2. risperiDONE: 3 mg Oral At Bedtime RESPIRATORY AGENTS: 1. Albuterol 2.5mg - Ipratropium 0.5 mg/ 3mL Neb Soln: 3 mL Inhalation Every 2 Hours PRN 2. Fluticasone 100 microgram -Salmeterol 50 microgram/ Inh: 1 inhalation Inhalation Every 12 Hours 3. Tiotropium 18 micrograms/ Inhalation: 1 inhalation Inhalation Every 24 Hours Currently Suspended Medications 1. Divalproex Sodium Ext Rel (Depakote ER): 500 mg Oral Every 24 Hours Radiology Results: Results: Impression: 1. Abnormal modified barium swallow study; laryngeal penetration and aspiration as above. Correlate with detailed report from speech pathologist for dietary recommendations. Xray Complete Pharyngeal + Speech Eval [Feb 16 2018 5:13PM] Signature/Cosignature/Attestation: Attending AttestationI saw and evaluated the patient. I personally obtained the gonzalez and critical portions of the history and physical exam or was physically present for gonzalez and critical portions performed by the resident/fellow. I reviewed the resident/fellows documentation and discussed the patient with the resident/fellow. I agree with the resident/fellows medical decision making as documented in the residents note. I personally evaluated the patient (as noted in the above attestation) on 16-Feb-2018 Comments/ Additional Findings Patient seen and examined Patient overnight had episode of desaturation and was moved to the ICU. Patient seen upon arrival to the ICU I was personally present for the flexible laryngoscopy, speech therapy was present as well. My findings are detailed above. There is evidence of lowell aspiration and severe oropharyngeal dysphagia Recommend continue speech therapy No ENT interventions recommended at this time. Electronic Signatures: Vivek Ernandez ( (Resident)) (Signed 16-Feb-2018 20:47) Authored: Service, History of Present Illness, Allergies, Objective, Signature/Cosignature/Attestation Jesenia WADSWORTH, Mahsa Gregory (Otolaryngology) () (Signed 20-Feb-2018 15:41) Authored: Signature/Cosignature/Attestation Co-Signer: Service, History of Present Illness, Allergies, Objective, Signature/Cosignature/Attestation Celia Ag (Resident)) (Signed 17-Feb-2018 13:02) Entered: History of Present Illness Authored: Service, History of Present Illness, Allergies, Objective, Signature/Cosignature/Attestation Last Updated: 20-Feb-2018 15:41 by Jesenia WADSWORTH, Mahsa Gregory (Otolaryngology) () GLUCOSE-POCT Collected: 02/16/2018 Status: F Source: [facility] 6:03 PM HOSPITALS REPOSITORY TYPE CODE TESTS RESULT OUT OF RANGE REFERENCE UNITS LAB GLUP(LOINC) 74 - 99 mg/dL High 118 GLUCOSE-POCT Performed By: #### GLUPO #### [facility] [id number] [place] [address] ABDOMEN AP VIEW Observed: 02/16/2018 Status: F Source: [facility] 5:49 PM HOSPITALS REPOSITORY Patient Name: DIPESH BERMUDEZ STUDY: TH ABDOMEN AP VIEW; 02/16/2018 5:49 pm INDICATION: Signs/Symptoms: Feeding tube palcement. COMPARISON: 02/15/2018 at 3:30 p.m. ACCESSION NUMBER(S): [id number] ORDERING CLINICIAN: DORINA BANGURA FINDINGS: Enteric tube is noted coursing inferior to the diaphragm, with tip overlying the expected location of the gastric antrum. There is a nonobstructive bowel gas pattern. Residual contrast is visualized throughout the bowel. Visualized lung bases are clear. IMPRESSION: 1. Enteric tube projects over the expected location of the gastric antrum. 2. Nonobstructive bowel gas pattern. I personally reviewed the images/study and resident's interpretation and I agree with the findings as stated. This study was performed , analyzed and interpreted at [facility], [place], [place]. Electronically signed by: Brandee COTTER MD CLINICAL EVENT Observed: Status: UNK Source: [facility] NOTE-DYSPHAGIA/ASPIRATION 02/16/2018 4:36 PM HOSPITALS REPOSITORY Event: Topic: Dysphagia/Aspiration Details: S: Patient with postop dysphagia with aspiration; feeding tube removed on 02/15 due to feeding tube in esophagus and likely aspirated; feeding tube replaced and then pulled out by patient pm of 02/15/18. Seen by Speech today and failed MBS; patient refusing feeding tube placement. O: VS: 36.5-97-18-157/81 General: in bed, no distress Neuro: PERRLA, Alert, oriented x3, follows commands, REMY's with right sided weakness of 4/5. Dysarthric Cardiac: S1 & S2, regular Respir: ocassional wet cough noted with clear to white sputum, lung sounds diminished in bases Abd: BS +x4, soft, round, non-tender; no nausea/vomiting Extr: No extremity edema Skin: Incision to left scalp intact, no drainage ASSESSMENT/PLAN: 67 yo male with a h/o HTN, DM, previous Left crani for meningioma who presented with worsening gait and diplopia, imaging with residual Left petroclival meningioma. 02/10 s/p angio with no target for embolization and taken to OR 02/11 and had a left craniotomy for tumor resection. Postop dysphagia and dysarthria. DYSPHAGIA: postop; initial feeding tube had to be removed due to being in esphagus and possibly aspirating -patient removed feeding tube himself yesterday when replaced; has refused to have new feeding tube replaced, wants to eat -Speech re-eval today and failed MBS--> silent aspiration on all consistencies; recommend NPO -ENT consulted per Speech for pharyngeal bulkiness seen on MBS -continue to impress on patient the importance and need for feeding tube; patient states he understands reasons he needs feeding tube and risks of eating at this time -will order IVF's while NPO as patient had contrast with CT chest last night -monitor labs URINARY RETENTION: -flynn removed at 9am, no void; bladder scan with over 500cc - replace flynn cath if unable to void -will start silodosin 8mg daily ADDENDUM: 1720 -patient agreed to feeding tube placement -placed in right nares at 65cm -will get KUB to confirm placement Provider / Team Contact Information: Provider/Team Contact Info-Pager Number: [phone] Electronic Signatures: Dorina Bangura ([employer]ORTEX OPERATOR-GROUP MANAGER) (Signed 16-Feb-2018 17:20) Authored: Event, Provider / Team Contact Information Last Updated: 16-Feb-2018 17:20 by Dorina Bangura ([employer] OPERATOR-GROUP MANAGER) SWALLOW EVALUATION Observed: 02/16/2018 Status: UNK Source: [facility] V2-MODIFED BARIUM 4:07 PM HOSPITALS REPOSITORY SWALLOW, MANAGER PROCESS IMPROVEMENT Rehab: Info: Mode of TreatmentSpeech-Language Pathology Time IN15:00 Time OUT15:30 Total Treatment [id number] Patient in ... at end of sessionbed, 3 railings up Evaluation TypeModifed Barium Swallow, MANAGER PROCESS IMPROVEMENT Patient Profile Reviewedyes Onset of Illness/Injury or Date of [id number] Reason for ReferralSLP consulted to assess oropharyngeal swallowing function for safe oral diet initiation s/p L retrosigmoid crani for tumor resect 02/11. General Observations of PatientSevere to Profound Dysarthria, edentulous , baseline congested cough , pt denies prior dysphagia and states he had a cough before surgery. Pt currently on 3 L O2 NC Pertinent History of Current Functional [id number] y/o with a PMH of htn, DM, previous craniotomy with resection of an intracranial mass- meningoma in 2013 (at [facility]) , and smoker who was admitted for a resect of an enlarging mass. Precautions/Limitationsswallowing precautions; oxygen therapy device and L/min Limitations/Impairmentssafety/cognitive; sensory; swallowing Impression: MANAGER PROCESS IMPROVEMENT Swallowing DiagnosisSevere Oral-Pharyngeal Dysphagia Assessment (Swallow Eval)MBSS completed. Informed verbal consent obtained. Given trials of thin, nectar and honey thick liquids. Pt presents with significantly impaired bolus formation/control, resulting in premature spillage into the pharynx across tested consistencies. Significantly delayed swallow onset with decreased laryngeal elevation/anterior pull and laryngeal vestibular closure resulting in SILENT ASPIRATION in moderate amounts during the swallow with thin liquids and after the swallow with nectar and honey thick liquids 2/2 pharyngeal residue. Given increased amount of pharyngeal residue with thicker viscosities, puree consistency not tested at this time. MANAGER PROCESS IMPROVEMENT recommends STRICT NPO. Question need for fci means nutrition/hydration. HANDLE SANDER OPERATOR (Dorina) aware of results/recommendations. Will follow. MANAGER PROCESS IMPROVEMENT Diet Recommendations (Swallow Eval)STRICT NPO with frequent aggressive oral care MBSS: Rosenbek's Penetration Aspiration Scale, Thin Liquid (MBSS)(8) contrast passes glottis, visible subglottic residue remains, absent patient response (aspiration) Rosenbek's Penetration Aspiration Scale, [place] Thick (MBSS)(8) contrast passes glottis, visible subglottic residue remains, absent patient response (aspiration) Rosenbek's Penetration Aspiration Scale, Honey Thick (MBSS)(8) contrast passes glottis, visible subglottic residue remains, absent patient response (aspiration) Education: Learnerpatient Education - TopicExtensive education provided re: dysphagia and impairment of swallow mechanism. Pt shown images of exam in detail. Counseling provided and questions answered. Will follow up to provide dysphagia treatment. DC Recommendations: Demonstrates Need for Referral to Another Service (Swallow Eval)Question need for ENT consult given suspected edematous tissue viewed for duration of exam throughout the pharyngeal cavity. Electronic Signatures: Danielle Florence (RYLAN) (Signed 16-Feb-2018 16:21) Authored: Rehab Last Updated: 16-Feb-2018 16:21 by Danielle Florence (RYLAN) GI COMP PHARYNGEAL Observed: 02/16/2018 Status: F Source: [facility] SPEECH EVAL 3:30 PM HOSPITALS REPOSITORY Patient Name: DIPESH BERMUDEZ STUDY: GI COMP PHARYNGEAL SPEECH EVAL; 02/16/2018 3:30 pm INDICATION: Signs/Symptoms: Dysphagia; pending discharge. COMPARISON: None. ACCESSION NUMBER(S): [id number] ORDERING CLINICIAN: DORINA BANGURA TECHNIQUE: Radiographic and videographic assistance was provided to the speech pathologist performing modified barium swallow. The patient was given food of different consistencies mixed with approximately 150 mL of barium and the swallowing response was observed. Fluoroscopic time was 3.4 minute. FINDINGS: Oral phase swallowing function was abnormal The pharyngeal phase is abnormal. Laryngeal penetration and aspiration were detected with all consistencies IMPRESSION: 1. Abnormal modified barium swallow study; laryngeal penetration and aspiration as above. Correlate with detailed report from speech pathologist for dietary recommendations. I personally reviewed the images/study and I agree with the findings as stated. This study was interpreted at [place], [place]. Electronically signed by: CHARLES RODRIGUEZ MD, PHD GLUCOSE-POCT Collected: 02/16/2018 Status: F Source: [facility] 1:03 PM HOSPITALS REPOSITORY TYPE CODE TESTS RESULT OUT OF RANGE REFERENCE UNITS LAB GLUP(LOINC) 74 - 99 mg/dL High 161 GLUCOSE-POCT Performed By: #### GLUPO #### [facility] [address] [place] [address] ECHOCARDIOGRAM Observed: 02/16/2018 Status: F Source: [facility] 11:22 AM [facility], [address] [place] [address] and TRANSTHORACIC ECHOCARDIOGRAM REPORT Patient Name: DIPESH BERMUDEZ Reading Physician: [id number] Omar Durant MD Study Date: 02/16/2018 Referring Allie Parada MD Physician: MRN/PID: [id number] PCP: Accession/Order#: [id number] [facility] Non Location: Invasive Date of : 1950 Fellow: Gender: M Nurse: Admit Date: 02/10/2018 Injection Molding Machine Offbearer: Tam Soria [facility] Admission Status: Inpatient - Additional Staff: Routine Height: 175.26 cm CC Report to: [address] Weight: 98.43 kg Study Type: Echocardiogram BSA: 2.14 m2 Blood Pressure: 157 /81 mmHg Diagnosis/ICD: R09.02 Hypoxemia Indication: hypoxemia Procedure/CPT: Echo Complete w/Full Doppler (33265) Patient History: Pertinent History: Current smoker; DM; HTN. Study Detail: The following Echo studies were performed: 2D, M-Mode, Doppler and color flow. Technically challenging study due to body habitus. Definity used as a contrast agent for endocardial border definition. Total contrast used for this procedure was 3.0 mL via IV push. PHYSICIAN INTERPRETATION: Left Ventricle: The left ventricular systolic function is normal, with an estimated ejection fraction of 55-60%. The left ventricular cavity size is upper limits of normal. There is moderate concentric left ventricular hypertrophy. Abnormal (paradoxical) septal motion, consistent with an intraventricular conduction delay. Spectral Doppler shows an impaired relaxation pattern of left ventricular diastolic filling. Left Atrium: The left atrium is normal in size. Right Ventricle: The right ventricle is normal in size. There is normal right ventricular global systolic function. Right Atrium: The right atrium is normal in size. Aortic Valve: The aortic valve is probably trileaflet. There is trivial aortic valve regurgitation. The peak instantaneous gradient of the aortic valve is 10.8 mmHg. Mitral Valve: The mitral valve is normal in structure. There is trace mitral valve regurgitation. Tricuspid Valve: The tricuspid valve is structurally normal. There is trace tricuspid regurgitation. Pulmonic Valve: The pulmonic valve is structurally normal. There is trace pulmonic valve regurgitation. Pericardium: There is a trivial pericardial effusion. Aorta: The aortic root is normal. The aortic root is at the upper limits of normal size. Pulmonary Artery: The estimated pulmonary artery pressure is normal. Systemic Veins: The inferior vena cava appears to be of normal size. CONCLUSIONS: 1. The left ventricular systolic function is normal with a 55-60% estimated ejection fraction. 2. Spectral Doppler shows an impaired relaxation pattern of left ventricular diastolic filling. 3. There is moderate concentric left ventricular hypertrophy. QUANTITATIVE DATA SUMMARY: 2D MEASUREMENTS: Normal Ranges: IVSd: 1.70 cm (0.6-1.1cm) LVPWd: 1.30 cm (0.6-1.1cm) LVIDd: 5.61 cm (3.9-5.9cm) LVIDs: 3.50 cm LV % FS 37.6 % LA VOLUME: Normal Ranges: LA Volume Index: 22.0 ml/m2 M-MODE MEASUREMENTS: Normal Ranges: Ao Root: 3.70 cm (2.0-3.7cm) LAs: 2.50 cm (2.7-4.0cm) AORTA MEASUREMENTS: Normal Ranges: Ao Sinus, d: 3.70 cm (2.1-3.5cm) Asc Ao, d: 3.54 cm (2.1-3.4cm) LV SYSTOLIC FUNCTION BY 2D PLANIMETRY (MOD): Normal Ranges: EF-A4C View: 61.5 % (>55%) EF-A2C View: 57.6 % EF-Biplane: 58.7 % LV DIASTOLIC FUNCTION: Normal Ranges: MV Peak E: 0.58 m/s (0.7-1.2 m/s) AORTIC VALVE: Normal Ranges: AoV Vmax: 1.64 m/s (<1.7m/s) AoV Peak P.8 mmHg (<20mmHg) LVOT Max Siddhartha: 1.50 m/s (<1.1m/s) LVOT VTI: 23.90 cm LVOT Diameter: 2.10 cm (1.8-2.4cm) AoV Area,Vmax: 3.17 cm2 (2.5-4.5cm2) PULMONIC VALVE: Normal Ranges: PV Max Siddhartha: 1.2 m/s (0.6-0.9m/s) PV Max P.9 mmHg [id number] Omar Durant MD Electronically signed on 02/16/2018 at 12:46:32 PM Final GLUCOSE-POCT Collected: 02/16/2018 Status: F Source: [facility] 5:42 AM [facility]ALS REPOSITORY TYPE CODE TESTS RESULT OUT OF RANGE REFERENCE UNITS LAB GLUP(LOINC) 74 - 99 mg/dL High 152 GLUCOSE-POCT Performed By: #### GLUPO #### [facility] [address] [facility] [place] [address] ANGIO CHEST Observed: 02/16/2018 Status: F Source: [facility] FOR PE 2:13 AM [facility]OSPITALS REPOSITORY Patient Name: DIPESH BERMUDEZ STUDY: TH CT ANGIO CHEST FOR PE; 02/16/2018 2:13 am INDICATION: Signs/Symptoms: evaluate for airspace disease and PE, Lie Flat: Yes. COMPARISON: None. ACCESSION NUMBER(S): [id number] ORDERING CLINICIAN: BOBBY RICHARDSON TECHNIQUE: Helical data acquisition of the chest was obtained contrast volume: With 68 cc of Isovue 370 as intravenous contrast. Images were reformatted in axial, coronal, and sagittal planes. FINDINGS: POTENTIAL LIMITATIONS OF THE STUDY:Evaluation limited by respiratory motion. HEART AND VESSELS: There is no evidence of central, lobar, proximal segmental pulmonary embolism. Limited evaluation for subsegmental pulmonary embolism secondary to motion artifact. Main pulmonary artery and its branches are normal in caliber. The thoracic aorta is of normal course and caliber with scattered vascular calcifications. Moderate coronary artery calcification.The study is not optimized for evaluation of coronary arteries. The cardiac chambers are not enlarged. No evidence of pericardial effusion. MEDIASTINUM AND MERRILL, LOWER NECK AND AXILLA: The visualized thyroid gland is within normal limits. No evidence of thoracic lymphadenopathy by CT criteria. Esophagus appears within normal limits as seen. LUNGS AND AIRWAYS: The trachea and central airways are patent. No endobronchial lesion. Mild diffuse bronchial and bronchiolar wall thickening. There is patchy opacity in both lung bases with areas of tree-in-bud appearance in the right lower lobe and left lung base. There is trace right basilar pleural effusion. Patient is apparently status post left lower lobectomy. UPPER ABDOMEN: Mild nodular thickening of the right adrenal gland. A few small hypodense lesions are identified in the visualized portion of the right kidney, incompletely characterized. The visualized subdiaphragmatic structures demonstrate no remarkable findings. CHEST WALL AND OSSEOUS STRUCTURES: There are no suspicious osseous lesions. Subacute to chronic fracture deformity of the posterior aspect of the left 11th rib. Multilevel degenerative changes in the thoracic spine. IMPRESSION: 1. There is no evidence of central, lobar, proximal segmental pulmonary embolism. Limited evaluation for subsegmental pulmonary embolism secondary to motion artifact. 2. Patchy opacity in the right lower lobe and left lung base with areas of tree-in-bud appearance and mild diffuse bronchial and bronchial wall thickening suggestive of small airway disease/bronchiolitis. Correlation for concern for infection. Also please correlate with concern for aspiration 3. Postsurgical changes in the left lung, apparently status post left lower lobectomy. Please correlate with surgical history. 4. Mild nodular thickening of the right adrenal gland. 5. Moderate coronary artery calcification. I personally reviewed the images/study and I agree with the findings as stated. This study was interpreted at [facility], [place], [place]. Electronically signed by: FADIA WEI MD CBC Collected: 02/16/2018 Status: CANCELLED Source: [facility] 12:30 AM [facility] REPOSITORY Order Comment: TEST CBC WAS CANCELLED, 02/17/2018 12:56 NO SPECIMEN RECEIVED IN LAB. TYPE CODE TESTS RESULT OUT OF REFERENCE UNITS RANGE LAB WBCR(LOINC ) WBC Canceled LAB NRBC(LOINC ) NUCLEATED RBC Canceled LAB RBCCT(LOIN C) RBC Canceled LAB HGB(LOINC) HGB Canceled LAB HCT(LOINC) HCT Canceled LAB MCV(LOINC) MCV Canceled LAB MCHC2(LOIN C) MCHC Canceled LAB PLTCT(LOIN C) PLT Canceled LAB RDWCV(LOIN C) RDW-CV Canceled Performed By: #### CBC #### [facility] [address] [place] [address] RENAL FUNCTION PANEL Collected: 02/16/2018 Status: CANCELLED Source: [facility] 12:30 [facility] REPOSITORY Order Comment: TEST RENAL FUNCTION PANEL WAS CANCELLED, 02/17/2018 12:56 NO SPECIMEN RECEIVED IN LAB. TYPE CODE TESTS RESULT OUT OF REFERENCE UNITS RANGE LAB GLU(LOINC) GLUCOSE Canceled LAB SOD(LOINC) SODIUM Canceled LAB K(LOINC) POTASSIUM Canceled LAB CHLOR(LOIN C) CHLORIDE Canceled LAB BIC(LOINC) BICARBONATE Canceled LAB ANGAP(LOIN C) ANION GAP Canceled LAB UREA(LOINC ) UREA NITROGEN Canceled LAB CREA(LOINC ) CREATININE Canceled LAB GFRFN(LOIN C) GFR-NON AM. Canceled LAB GFRAA(LOIN C) GFR- AM. Canceled Result Comment: CALCULATIONS OF ESTIMATED GFR ARE PERFORMED USING THE MDRD STUDY EQUATION FOR THE IDMS-TRACEABLE CREATININE METHODS. CLIN CHEM 2007;53:766-72 LAB CA(LOINC) CALCIUM Canceled LAB PHOS(LOINC) PHOSPHORUS Canceled Result Comment: The performance characteristics of phosphorus testing in heparinized plasma have been validated by the individual laboratory site where testing is performed. Testing on heparinized plasma is not approved by the FDA; however, such approval is not necessary. LAB ALB(LOINC) Canceled ALBUMIN Performed By: #### RENAL #### [facility] [address] [place] [address] DAILY PROGRESS Observed: 02/16/2018 Status: COMPLETED Source: [facility]-NEUROSURGERY 12:28 AM [facility]OSPITALS REPOSITORY Service: Neurosurgery Subjective Data: DIPESH BERMUDEZ is a 67 year old Male who is Hospital Day # 7 and POD #5 for left retrosigmoid craniotomy for tumor resection. Objective Data: Objective Information: ---- Intake and Output ----- Mn/Dy/Year TimeIntakeOutputNet Feb 14, 2018 10:00 [id number] Feb 14, 2018 2:00 [id number] Feb 14, 2018 6:00 [id number] The Intake and Output Totals for the last 24 hours are: IntakeOutputNet [id number] Physical Exam: Neurological: AAOx3, dysarthric, FCx4 L FD, L CN6 palsy Assessment and Plan: Assessment: 67M with a h/o HTN, DM, prev L crani for meningioma p/w worsening gait and diplopia, interval inc in residual L petroclival meningioma 02/10 s/p angio with no target for embo. vMRI done 02/11 s/p L crani for tumor resection. 02/12 MRI POC 02/13 Code White Plan - FRANCK - pain control - [employer]NA[employer]-NPO (repeat swallow eval) - pulmonary recs - PTOT-rehab - SQH POD2 Signature/Cosignature/Attestation: Attending AttestationI reviewed the resident/fellows documentation and discussed the patient with the resident/fellow. I agree with the resident/fellows medical decision making as documented in the residents note. Electronic Signatures: Augustine Cardoza) (Signed 25-Feb-2018 08:24) Authored: Signature/Cosignature/Attestation Co-Signer: Service, Subjective Data, Objective Data, Assessment and Plan, Signature/Cosignature/Attestation Troy Abraham (Resident)) (Signed 16-Feb-2018 00:30) Authored: Service, Subjective Data, Objective Data, Assessment and Plan, Signature/Cosignature/Attestation Last Updated: 25-Feb-2018 08:24 by Augustine Cardoza) GLUCOSE-POCT Collected: 02/16/2018 Status: F Source: [facility] 12:04 AM [facility]OSPITALS REPOSITORY TYPE CODE TESTS RESULT OUT OF RANGE REFERENCE UNITS LAB GLUP(LOINC) 74 - 99 mg/dL High 180 GLUCOSE-POCT Performed By: #### GLUPO #### [facility] [address] [place] [address] CONSULT-PULMONOLOGY Observed: Status: COMPLETED Source: [facility] 02/15/2018 8:52 PM HOSPITALS REPOSITORY Service: Service: Pulmonology Consult: Consult requested by (Attending Name): Dr. Parada Reason: Hypoxia History of Present Illness: Admission Reason: Craniotomy for tumor resection HPI: 67 yo M with history of meningioma s/p craniotomy/resection (2013), HTN, DM, COPD, tobacco abuse, admitted currently under Neurosurgery following scheduled admission for repeat craniotomy/tumor resection, noted to have multiple episodes of hypoxia for which Pulmonary has been consulted. Patient admits to long history of tobacco abuse and reports having COPD x many years. He does not follow with a pencil sorter in [place]. He also admits to history of CYNTHIA, previously had a CPAP but [facility] was stolen and [facility]. He does not use oxygen at home. He is immobile essentially at home, on disability due to leg injuries, uses a scooter to get around his home and outside. He has been noted since surgery to have multiple episodes of hypoxia SpO2 80-85% requiring intermittent venti- mask 50%. Patient has been made strictly NPO due to dysphagia, however he was noted by [employer]NAGER [employer]OV[employer] to have a diet ordered a few days ago despite recommendation against this. Patient has been getting tube feeds via dobhoff. It was noted today during a hypoxic episode this morning that patient's dobhoff was up in the mid esophagus. staff field engineer has been working aggressively with pt with frequent chest PT and NT suctioning as patient produces constant thin loose secretions. Patient denies SOB at baseline when home. He presently denies fevers, chills, weight loss, and night sweats. He reports some leg edema at baseline. He denies any interest in regularly using his CPAP (when he had one). He supposedly uses Asmanex and albuterol inhalers at home but only as needed. PMH: As above PSH: Craniotomy x 2, left lung resection for rib poking through my lung in the s (per pt, 2/3 left lung removed) SH: Current smoker 1 ppd x 51 yrs FH: Sister withith lung cancer unknown type Review Family/Social History and ROS: Review Family/Social History and ROS: I have reviewed the family and social history and review of systems from the History and Physical. Social History: Smoking Status: current every day smoker Constitutional: NEGATIVE: Fever, Chills, Weight Loss Eyes: NEGATIVE: Blurry Vision ENMT: NEGATIVE: Nasal Discharge, Nasal Congestion Respiratory: POSITIVE: Productive Cough; NEGATIVE: Hemoptysis, Shortness of Breath Cardiac: NEGATIVE: Chest Pain, Syncope Gastrointestinal: NEGATIVE: Nausea, Vomiting, Abdominal Pain Genitourinary: NEGATIVE: Discharge Musculoskeletal: POSITIVE: Swelling Hematologic/Lymph: NEGATIVE: Night Sweats Allergies: Codeine Sulfate: Unknown penicillin: Unknown insulin: Unknown Intolerances: Aspir 81: GI Upset Objective: Objective Information: T PRBPSpO2 [id number]/[id number]% Date/Time02/15 16:0010 16:0010 16:00102 17:4510/2 16:00 Range(36.5C - 37C ) (77 - 112 ) (15 - 23 ) (128 - 167 )/ (61 - 113 ) (88% - 95% ) Highest temp of 37 C was recorded at 02/15 4:00 Pain at Rest reported at 02/15 15:45: 0 ---- Intake and Output ----- Mn/Dy/[facility] Feb 15, 2018 2:00 [id number] Feb 15, 2018 6:00 [id number] Feb 14, 2018 10:00 [id number] The Intake and Output Totals for the last 24 hours are: IntakeOutunm psychiatric centerNet [id number] Physical Exam: Constitutional: Awake, alert, frustrated with care, NAD Eyes: EOMI Head/Neck: Neck supple, normal ROM Respiratory/Thorax: Effort appears normal, patient with diffuse rhonchi bilaterally Cardiovascular: RRR, normal S1/S2 Gastrointestinal: Soft, NT, ND, dobhoff tube in place Extremities: Trace leg edema noted, lower extremities cool to touch Neurological: Dysarthria Psychological: Mildly agitated, frustrated, wants to go home Skin: Warm and dry, no diaphoresis Medications: Medications: CARDIOVASCULAR AGENTS: 1. Lisinopril: 30 mg Oral Daily 2. amLODIPine: 10 mg Oral Daily 3. hydroCHLOROthiazide: 25 mg Oral Daily 4. hydrALAZINE Injectable: 10 mg IntraVenous Push Every 6 Hours PRN CENTRAL NERVOUS SYSTEM AGENTS: 1. Acetaminophen: 650 mg Oral Every 6 Hours PRN 2. Morphine Injectable: 4 mg IntraVenous Push Every 3 Hours PRN 3. oxyCODONE Immediate Release: 5 mg Oral Every 4 Hours PRN 4. oxyCODONE Immediate Release: 10 mg Oral Every 4 Hours PRN 5. Valproic Acid (Depakene) Oral Liquid: 250 mg NasoGastric Tube Every 12 Hours 6. Ondansetron Injectable: 4 mg IntraVenous Push Every 6 Hours PRN 7. Cyclobenzaprine: 10 mg Oral 3 Times a Day PRN COAGULATION MODIFIERS: 1. Heparin Flush 10 unit/ mL PF Injectable PRN: 5 mL IntraVenous Flush According to Flush Policy PRN 2. Heparin SubCutaneous: 5000 unit(s) SubCutaneous Every 8 Hours GASTROINTESTINAL AGENTS: 1. Bisacodyl Rectal: 10 mg Rectal Daily PRN 2. Docusate: 100 mg Oral 2 Times a Day 3. Fleet Adult (Sodium Phosphate) Rectal: 1 enema Rectal Daily PRN 4. Polyethylene Glycol: 17 gram(s) Oral Daily PRN 5. Sennosides: 2 tablet(s) Oral Daily METABOLIC AGENTS: 1. Insulin Glargine (Lantus) Injectable: 20 unit(s) SubCutaneous At Bedtime 2. Insulin Lispro Moderate Corrective Scale: unit(s) SubCutaneous Every 4 Hours 3. Atorvastatin: 40 mg Oral Daily 4. Dextrose 50% in Water Injectable: 25 gram(s) IntraVenous Push Every 15 Minutes PRN 5. Glucagon Injectable: 1 mg IntraMuscular Every 15 Minutes PRN MISCELLANEOUS AGENTS: 1. Lidocaine 1% Injectable (PICC KIT): 1 mL IntraDermal Once PRN 2. Nicotine 14 mg/ 24 hour TransDermal: 1 patch TransDermal Every 24 Hours NUTRITIONAL PRODUCTS: 1. Sodium Chloride 0.9% Injectable Flush: 10 mL IntraVenous Flush Every 12 Hours PSYCHOTHERAPEUTIC AGENTS: 1. traZODone: 150 mg Oral At Bedtime 2. risperiDONE: 3 mg Oral At Bedtime RESPIRATORY AGENTS: 1. Albuterol 2.5mg - Ipratropium 0.5 mg/ 3mL Neb Soln: 3 mL Inhalation 4 Times a Day 2. Mometasone 220 microgram/ Inhalation: 1 inhalation Inhalation Every 12 Hours Currently Suspended Medications 1. Divalproex Sodium Ext Rel (Depakote ER): 500 mg Oral Every 24 Hours 2. Valproic Acid IV Piggy Back (Depacon): 250 mg IntraVenous Piggyback Every 12 Hours 3. Sodium Chloride 0.9% Infusion: 1000 mL IntraVenous <Continuous> Recent Lab Results: Results: I have reviewed these laboratory results: Arterial Full Panel 15-Feb-2018 08:53:00 ResultValue pH, Arterial 7.45 H pCO2, Arterial 47 H pO2, Arterial 57 L Patient-Temperature 37.0 SO2, Arterial 92 L HCT 42.0 Sodium-Level 134 L Potassium-Level 4.3 Chloride-Level 98 Calcium, Ionized-Level 1.39 H Glucose-Level 226 H Lactate-Level 1.4 Base Excess-Blood 7.4 H Bicarbonate, Calculated, Arterial 32.7 H HGB, Calculated 14.3 Anion Gap-Level 8 L Blood Gas, Arterial 13-Feb-2018 08:57:00 ResultValue pH, Arterial 7.45 H pCO2, Arterial 43 H pO2, Arterial 97 H Patient-Temperature 37.0 SO2, Arterial 99 Base Excess-Blood 5.2 H Bicarbonate, Calculated, Arterial 29.9 H Renal Function Panel 13-Feb-2018 08:45:00 ResultValue Glucose, Serum 155 H NA 132 L K 4.3 CL 97 L Bicarbonate, Serum 27 Anion Gap, Serum 12 BUN 22 CREAT 1.04 GFR-Non >60 GFR- >60 Calcium, Serum 9.1 Phosphorus, Serum 3.1 ALB 3.1 L Magnesium, Serum 13-Feb-2018 08:45:00 ResultValue Magnesium, Serum 1.73 Radiology Results: Results: Impression: 1. Dobhoff catheter is projecting over the gastric antrum. 2. Nonobstructive bowel gas pattern. Xray Abdomen AP View [Feb 15 2018 4:25PM] Impression: 1. Dobhoff catheter is observed in the middle of the mediastinum. Recommend repositioning. 2. Bibasilar atelectasis and small left pleural effusion Xray Chest 1 View [Feb 15 2018 10:50AM] Assessment: 67 yo M with history of meningioma s/p craniotomy/resection (2013), HTN, DM, COPD, tobacco abuse, admitted currently under Neurosurgery following scheduled admission for repeat craniotomy/tumor resection, noted to have multiple episodes of hypoxia for which Pulmonary has been consulted. #Suspected aspiration pneumonitis, slightly worse infiltrates RLL compared to previous CXR, likely due to dysphagia and improperly located dobhoff tube while actively receiving tube feeds #Hypoxia, multifactorial #Heavy secretions with weak cough #History of COPD - uncharacterized at this point #CYNTHIA not treated currently #Dysphagia, requiring strict NPO RECS: 1. Continue strict NPO & keep head of bed elevated to 30 degrees 2. Infectious work-up: sputum cx, blood cx x 2, serum pro-calcitonin 3. CT chest with contrast (CT-PE) to evaluate bilateral lung parenchyma for airspace disease and R/O PE 4. LE dopplers to R/O DVT d/t immobility and recent surgery; continue DVT ppx 5. Hold on initiating abx therapy for now pending evaluations as above 6. Echocardiogram to evaluate heart function 7. Start Spiriva, Advair, and albuterol nebs PRN for patient's COPD 8. PT/OT, OOB to chair if able, aggressive chest PT (very important) - please involve respiratory therapy to help with sputum expectoration 9. ABG tomorrow morning within 15 minutes of awakening to assess for nocturnal hypercapnia Will follow. Please page [phone] with questions. Patient seen, examined, and discussed with staff Dr. Ramirez. Signature/Cosignature/Attestation: Attending AttestationI saw and evaluated the patient. I personally obtained the gonzalez and critical portions of the history and physical exam or was physically present for gonzalez and critical portions performed by the resident/fellow. I reviewed the resident/fellows documentation and discussed the patient with the resident/fellow. I agree with the resident/fellows medical decision making as documented in the resident/fellows note with the exception/addition of the following: I personally evaluated the patient (as noted in the above attestation) on 15-Feb-2018 Comments/ Additional Findings add Pulmonary service is consulted for worsening oxygenation and respiratory distress hypoxic respiratory failure - increasing O2 needs acute event is most likely related to aspiration As for COPD - it is preexisting. its severity is unknown at baseline. No signs of any acute exacerbation recommendations as above stated Electronic Signatures: Allan Babcock (Fellow)) (Signed 15-Feb-2018 21:16) Authored: Service, History of Present Illness, Review Family/Social History and ROS, Allergies, Objective, Assessment/Recommendations, Signature/Cosignature/Attestation Shagufta Ramirez) (Signed 22-Feb-2018 09:36) Authored: Signature/Cosignature/Attestation Co-Signer: Service, History of Present Illness, Review Family/Social History and ROS, Allergies, Objective, Assessment/Recommendations, Signature/Cosignature/Attestation Last Updated: 22-Feb-2018 09:36 by Shagufta Ramirez) CLINICAL EVENT Observed: 02/15/2018 Status: UNK Source: [facility] NOTE-PT REFUSAL FOR 5:59 PM HOSPITALS REPOSITORY CARE Event: Topic: Pt refusal for care Details: 02/15/18 Patient no longer compliant with treatment and requesting to go home because large amount of foreigners and no one will give me Coke or water. It has been explained to the patient that he is unsafe to swallow and dobhoff had been placed. Patient no longer wants dobhoff and self removed at 1700 02/15. Patient has refused accuchecks and refusing to wear oxygen mask because it is too hot. Patient did agree to wear nasal cannula 6L after MD Hilario came and spoke to him. Neurosurgery team aware of situation, will continue to attend to patient and stress importance of medical care. Team stated they would speak to patient as soon as possible. Demarco Dailey RN Electronic Signatures: Demarco Dailey (RN) (Signed 15-Feb-2018 18:07) Authored: Event Last Updated: 15-Feb-2018 18:07 by Demarco Dailey) TH ABDOMEN AP VIEW Observed: 02/15/2018 Status: F Source: [facility] 3:59 PM HOSPITALS REPOSITORY Patient Name: DIPESH BERMUDEZ STUDY: ABDOMEN AP VIEW; 02/15/2018 3:59 pm INDICATION: Signs/Symptoms: s/p DHT. COMPARISON: 02/13/2018 ACCESSION NUMBER(S): [id number] ORDERING CLINICIAN: NORMAN DANIEL FINDINGS: Single-view of the abdomen. The lower pelvis is not included. Dobhoff catheter projecting over the gastric antrum. Nonobstructive bowel gas pattern. Limited evaluation of pneumoperitoneum on supine imaging, however no gross evidence of free air is noted. Visualized lungs are clear. Osseous structures demonstrate no acute bony changes. IMPRESSION: 1. Dobhoff catheter is projecting over the gastric antrum. 2. Nonobstructive bowel gas pattern. Electronically signed by: FADIA WEI MD GLUCOSE-POCT Collected: 02/15/2018 Status: F Source: [facility] 12:32 PM [facility]OSPITALS REPOSITORY TYPE CODE TESTS RESULT OUT OF RANGE REFERENCE UNITS LAB GLUP(LOINC) 74 - 99 mg/dL High 176 GLUCOSE-POCT Performed By: #### GLUPO #### [facility] [address] [place] [address] ARTERIAL FULL PANEL Collected: 02/15/2018 Status: F Source: [facility] 8:53 AM [facility]OSPITALS REPOSITORY TYPE CODE TESTS RESULT OUT OF REFERENCE UNITS RANGE LAB PHART(LOIN 7.38 - 7.42 C) pH High 7.45 LAB PCO2A(LOIN 38 - 42 mmHg C) PCO2 High 47 LAB PO2A(LOINC 85 - 95 mmHg ) PO2 Low 57 LAB TEMP(LOINC degrees C ) PATIENT TEMPERATURE 37.0 Result Comment: NOTE: PATIENT RESULTS ARE NOT CORRECTED FOR TEMPERATURE. LAB SO2%A(LOINC) 94 - 100 % Low SO2 92 LAB HCTN(LOINC) 41.0 - % 52.0 HCT 42.0 LAB SODN(LOINC) 136 - 145 mmol/L Low SODIUM 134 LAB POTN(LOINC) 3.5 - 5.3 mmol/L POTASSIUM 4.3 LAB CHLN(LOINC) 98 - 107 mmol/L CHLORIDE 98 LAB IONCA(LOINC) 1.10 - mmol/L 1.33 High CALCIUM,IONIZED 1.39 LAB GLUN(LOINC) 74 - 99 mg/dL GLUCOSE High 226 LAB LACTN(LOINC) 0.4 - 2.0 mmol/L LACTATE 1.4 LAB BSEXB(LOINC) -2.0 - 3.0 mmol/L BASE High EXCESS-BLOOD 7.4 LAB BICAR(LOINC) 22.0 - mmol/L 26.0 BICARB, High CALCULATED 32.7 LAB HGBNC(LOINC) 13.5 - g/dL 17.5 HGB,CALCULATED 14.3 LAB ANGPN(LOINC) 10 - 25 mmol/L Low ANION GAP 8 Performed By: #### AFPA3 #### [facility] [address] [place] [address] TH CHEST 1 VIEW Observed: 02/15/2018 Status: F Source: [facility] 8:40 AM [facility]OSPITALS REPOSITORY Patient Name: DIPESH BERMUDEZ STUDY: CHEST 1 VIEW; 02/15/2018 8:40 am INDICATION: Signs/Symptoms: desaturation, cough. COMPARISON: 02/13/2018 chest AP view ACCESSION NUMBER(S): [id number] ORDERING CLINICIAN: MAHSA MAR FINDINGS: Patient is rotated towards the right. There is a enteric tube coursing down midline with the tip observed in the middle of the mediastinum. Consider advancement. CARDIOMEDIASTINAL SILHOUETTE: Cardiomediastinal silhouette is normal in size and configuration. LUNGS: Bibasilar atelectasis. Suggestion of small left pleural effusion. There is no sizable pneumothorax or focal consolidation. ABDOMEN: No remarkable upper abdominal findings. BONES: No acute osseous changes. IMPRESSION: 1. Dobhoff catheter is observed in the middle of the mediastinum. Recommend repositioning. 2. Bibasilar atelectasis and small left pleural effusion I personally reviewed the images/study and I agree with the findings as stated. This study was interpreted at [facility], [place], [place]. Electronically signed by: FADIA WEI MD GLUCOSE-POCT Collected: 02/15/2018 Status: F Source: [facility] 5:45 AM HOSPITALS REPOSITORY TYPE CODE TESTS RESULT OUT OF RANGE REFERENCE UNITS LAB GLUP(LOINC) 74 - 99 mg/dL High 209 GLUCOSE-POCT Performed By: #### GLUPO #### [facility] [address] [place] [address] DAILY PROGRESS Observed: 02/15/2018 Status: COMPLETED Source: [facility] NOTE-NEUROSURGERY 12:45 AM HOSPITALS REPOSITORY Service: Neurosurgery Subjective Data: DIPESH BERMUDEZ is a 67 year old Male who is Hospital Day # 5 and POD #3 for left retrosigmoid craniotomy for tumor resection. 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 vMRI done 02/11 s/p L crani for tumor resection. 02/12 MRI POC 02/13 Code White Plan - FRANCK - pain control - MANAGER PROCESS IMPROVEMENT-NPO (repeat swallow eval) - PTOT-rehab - SQH POD2 Electronic Signatures: Augustine Cardoza) (Signed 15-Feb-2018 16:49) Authored: Signature/Cosignature/Attestation Co-Signer: Service, Subjective Data, Objective Data, Assessment and Plan Troy Abraham (Resident)) (Signed 14-Feb-2018 22:46) Authored: Service, Subjective Data, Objective Data, Assessment and Plan Last Updated: 15-Feb-2018 16:49 by Augustine Cardoza) GLUCOSE-POCT Collected: 02/15/2018 Status: F Source: [facility] 12:12 AM HOSPITALS REPOSITORY TYPE CODE TESTS RESULT OUT OF RANGE REFERENCE UNITS LAB GLUP(LOINC) 74 - 99 mg/dL High 249 GLUCOSE-POCT Performed By: #### GLUPO #### [facility] [address] [place] [address] GLUCOSE-POCT Collected: 02/14/2018 Status: F Source: [facility] 5:50 PM HOSPITALS REPOSITORY TYPE CODE TESTS RESULT OUT OF RANGE REFERENCE UNITS LAB GLUP(LOINC) 74 - 99 mg/dL High 250 GLUCOSE-POCT Performed By: #### GLUPO #### [facility] [address] [place] [address] GLUCOSE-POCT Collected: 02/14/2018 Status: F Source: [facility] 12:43 PM HOSPITALS REPOSITORY TYPE CODE TESTS RESULT OUT OF RANGE REFERENCE UNITS LAB GLUP(LOINC) 74 - 99 mg/dL High 225 GLUCOSE-POCT Performed By: #### GLUPO #### [facility] [address] [place] [address] NUTRITION THERAPY-ASSESSMENT Observed: 02/14/2018 Status: UNK Source: IDABEL 11:18 AM HOSPITALS REPOSITORY Assessment Subjective/Objective: Note Type: Assessment Note Authored by: Registered Dietitian Career Placement Specialist Pager Number: [phone] Nutrition Note: The patient is a 67 year old Male hospital day #4. Pt with h/o L craniotomy for meningioma with resection of intracranial mass in 2013, found to have enlargement of residual mass with worsening diplopia and unsteady gait. Underwent L retrosigmoid craniotomy for tumor resection and lumber drain placement on 02/11/2018. Is for possible d/c to rehab/LTACH, when medically stable. ------>Nutrition consult for enteral assessment/recommendations. Speech consulted after surgery, recs for pt to remain NPO at this time, d/t high risk for aspiration. Dobhoff feeding tube was placed. TF of IsoSource 1.5 were started at 10 ml/hr, current goal rate (per MD) is 50 ml/hr, with water flush of 200 Q4H. TF were running at 40 ml/hr, during conversation with pt, tolerating well, thus far. IVF of NS at 75 ml/hr, currently running, as well. Medical Surgical History: DM, HTN, previous craniotomy for meningioma with resection of intracranial mass in 2013 Objective Information: ---- Intake and Output ----- Mn/Dy/Year TimeIntakeOutputNet Feb 14, 2018 6:00 [id number] Feb 13, 2018 10:00 [id number] Feb 13, 2018 2:00 [id number] The Intake and Output Totals for the last 24 hours are: IntakeOutputNet [id number] Intake Output Enteral - Tube 195 mL Urine 1375 mL IV Fluids 200 mL Stool 1 mL Irrigation Solutions 515 mL Drain 40 mL BM: last documented BM on 02/13/2018 Height/Weight: Height in cm: 175.2 centimeter(s) Weight (kg): 98.8 BMI (kg/m2): 32.187 square meter DBW (kg): 73 %DBW: 135 Weight history/ % weight change: Pt reports he was 135 kg ~3 years ago (27% weight loss-not significant for 3 years), was unsure as to any weight loss over the last 6 mos-1 year. Reviewed EMR: 09/2017-98 kg 11/2017-97.7 kg Significant Weight Change: no Recent Lab Results: Results: I have reviewed these laboratory results: Glucose_POCT Trending View [id number] 00:05:00 13-Feb-2018 18:11:00 13-Feb-2018 12:56:00 13-Feb-2018 06:34:00 12-Feb-2018 19:42:00 Glucose-CTCN189 H 128 H 138 H 146 H 135 H Renal Function Panel 13-Feb-2018 08:45:00 ResultValue Glucose, Serum 155 H NA 132 L K 4.3 CL 97 L Bicarbonate, Serum 27 Anion Gap, Serum 12 BUN 22 CREAT 1.04 GFR-Non >60 GFR- >60 Calcium, Serum 9.1 Phosphorus, Serum 3.1 ALB 3.1 L Magnesium, Serum 13-Feb-2018 08:45:00 ResultValue Magnesium, Serum 1.73 hemoglobin a1c=7.6% (02/10/2018) Current Active Medications/PN: Atorvastatin, Tablet (LIPITOR) DOSE = 40 mg Oral Daily, 11-Feb-2018 Divalproex Sodium Ext Rel (Depakote ER), Tablet, Extended Release DOSE = 500 mg Oral Every 24 Hours, 11-Feb-2018 hydroCHLOROthiazide, Tablet (ESIDRIX) DOSE = 25 mg Oral Daily, 11-Feb-2018 oxyCODONE Immediate Release, Tablet (OXYIR, ROXICODONE) DOSE = 5 mg Oral Every 4 Hours, PRN Pain - Mod (4-6), 11-Feb-2018 risperiDONE, Tablet (RISPERDAL) DOSE = 3 mg Oral At Bedtime, 11-Feb-2018 oxyCODONE Immediate Release, Tablet (OXYIR, ROXICODONE) DOSE = 10 mg Oral Every 4 Hours, PRN Pain - Severe (7-10), 11-Feb-2018 Bisacodyl Rectal, Suppository (DULCOLAX) DOSE = 10 mg Rectal Daily, PRN if no BM in the previous 36 hours Clinician Notes: once now and daily PRN, 11-Feb-2018 Docusate, Capsule (COLACE) DOSE = 100 mg Oral 2 Times a Day, 11-Feb-2018 Morphine Injectable, DOSE = 4 mg IntraVenous Push Every 3 Hours, PRN Breakthrough pain, 11-Feb-2018 Ondansetron Injectable, (ZOFRAN) DOSE = 4 mg IntraVenous Push Every 6 Hours, PRN Nausea, 11-Feb-2018 Sennosides, Tablet (SENOKOT) DOSE = 2 tablet(s) Oral Daily, 11-Feb-2018 Insulin Glargine (Lantus) Injectable, DOSE = 20 unit(s) SubCutaneous At Bedtime Notes from Pharmacy: HIGH ALERT , 12-Feb-2018 Nicotine 14 mg/ 24 hour TransDermal, Film, Extended Release (NICODERM) DOSE = 1 patch TransDermal Every 24 Hours, 12-Feb-2018 Valproic Acid IV Piggy Back (Depacon), in Dextrose 5% in Water 50 mL DOSE = 250 mg Every 12 Hours Recommended Infusion Time: 60 minute(s), 13-Feb-2018 methylPREDNISolone Sodium Succinate Injectable, (SOLU-MEDROL) DOSE = 125 mg IntraVenous Push Every 8 Hours, 13-Feb-2018 Sodium Chloride 0.9% Infusion, IV Bag Volume = 1,000 mL Run at: 75 mL/hr IntraVenous <Continuous> Clinician Notes: Please discontinue when patient is tolerating oral fluid intake, 11-Feb-2018 Nutrition Orders: Enteral Feeding ([facility]), Routine, Isosource 1.5 Swapnil Rate: ( Continuous & Cycle Only)- mL/hr: 50 ,<Continuous> Route: NG (Nasogastric Tube, Continuous Special Instructions: start @ 10 cc/hr and advance by 10 cc/hr every 2 hours until upto 50, 13-Feb-2018 Enteral Feeding Water Flush, 200, NG (Nasogastric Tube), 4 Times a Day, 13-Feb-2018 Food/Nutrition Related History: Change in Oral Intake/Appetite: no change GI Symptoms: none Time Frame for GI Symptoms Greater Than 2 Weeks: not applicable Oral Problems: pt denied any issues chewing or swallowing PHYSICIAN/ALLERGY/IMMUNOLOGY, was noted to be edentulous, has dentures at home Mobility: normal activity Food Allergies Comment: NKFA Nutritional Supplements: denies Food/Nutrition Related History: Spoke to pt, denied n/v or abdominal pain during conversation. Tells appetite is usually very good at home, requesting food and drinks during conversation, I'm hungry, I want to eat. Discussed diet advancement, per MD and speech. Nutrition Focused Physical Findings: Muscle Wasting: Temporal: defer Shoulder: no Clavicle: no Scapula/Back: no Interosseous: no Quadriceps: no Calf: no Loss of Subcutaneous Fat: Eyes: no Perioral: no Triceps: no Chest: defer Other Physical Findings: Hair: negative Eyes: negative Nails: negative Skin: surgical incision to L head Edema: +1, trace (generalized) Change in Metabolic Demand: yes Subjective Global Assessment Rating: malnutrition not present at this time Estimated Needs: kcals/day: 4775-8170 gms protein/day: 110+ mL fluid/day: 1 ml/kcal or per MD Nutrition Diagnosis: Diagnosis1 new. Dx: Swallowing difficulties. related to recent craniotomy for tumor resection as evidenced by speech recs for pt to remain NPO with need for dobhoff placement with TF to meet estimated needs. Additional Assessment Information: Pt unable to take PO at this time d/t high risk for aspiration. Has dobhoff. Recommend change goal rate of 50 ml/hr to 65 ml/hr with one packet Pro-Stat to better meet pt's estimated needs. Nutrition Interventions: Individualized Nutrition Prescription Provided for: enteral nutrition Diet Education: not applicable not appropriate for diet education at this time Provided Nutrition Support Recommendations: TF of IsoSource 1.5 at current goal rate of 50 ml/zs=1658 kcals, 82 g protein (meets 82% estimated kcal needs, 75% estimated protein needs); TF of IsoSource 1.5 at 65 ml/hr with one packet Pro-Bjsx=4320 kcals, 121 g protein (meets >100% estimated kcal needs, 100% estimated protein needs) Nutrition Goals: Goals: Nutrition Therapy: nutrition support is meeting 75% of nutrient needs, tube feed tolerance, Blood Glucose 80-180 mg/dl, electrolytes within normal limits, maintain stable weight, advancement of diet from NPO status Outcomes Summary: Nutrition Therapy Outcome Summary: Nutritional Therapy: Swallowing Difficulties NUTRITION RECOMMENDATIONS: Recommendations: 1. Recommend continue TF of IsoSource 1.5; change to a goal rate of 65 ml/hr add one packet Pro-Stat/day hold on water flush at this time, until Na level normalizes (Na level noted to be 132 at this time), or water flush, per MD monitor and replete lytes, as needed 2. Daily weight 3. Advance diet from NPO status, only as medically appropriate, per speech recs Maintain aspiration precautions Nutrition Therapy Recommendations: Nutrition Therapy Recommendations: see RDN note 02/14/2018 Dietitian Monitoring and Evaluation Plan: Monitoring and Evaluation Plan: Nutrition Support tolerance/adequacy, weight trend, stool output, labs, monitor ability to advance diet (per speech) Diet Education: Nutrition Education: not appropriate for diet education at this time Electronic Signatures: Noreen Crockett (CHRISTIANNEN, LD) (Signed 14-Feb-2018 12:25) Authored: Assessment Subjective/Objective, Nutrition Focused Physical Findings, Estimated Needs, Nutrition Diagnosis, Nutrition Interventions, Nutrition Goals, Nutrition Recommendations, Dietitian Monitoring and Evaluation Plan, Diet Education Last Updated: 14-Feb-2018 12:25 by Noreen Crockett (RDN, LD) BN SPINE, CERVICAL, 2 Observed: 02/14/2018 Status: F Source: UNIVERSITY OR 3 VIEWS 9:37 AM HOSPITALS REPOSITORY Patient Name: DIPESH BERMUDEZ STUDY: BN SPINE, CERVICAL, 2 OR 3 VIEWS; 02/14/2018 9:37 am INDICATION: Signs/Symptoms: evaluate for ostoephytes. COMPARISON: None. ACCESSION NUMBER(S): [id number] ORDERING CLINICIAN: SANTIAGO TOMPKINS TECHNIQUE: 3 views of the cervical spine including AP, lateral were obtained. FINDINGS: The nasogastric tube traversing inferiorly in the esophagus. There is no evidence of acute fracture identified. The vertebral bodies are well aligned without evidence of subluxation. No prevertebral soft tissue swelling is present. The disc spaces and posterior facet joints are well preserved. There is significant osteophytosis along the anterior aspect of the cervical vertebral bodies and calcification of the anterior longitudinal ligament causing mild compression of the posterior hypopharynx/esophagus. IMPRESSION: 1. Significant cervical osteophytes causing mild compression of the posterior hypopharynx/esophagus. I personally reviewed the images/study and I agree with the findings as stated. This study was interpreted at [facility], [place], [place]. Electronically signed by: ALEX RODRIGUEZ MD GLUCOSE-POCT Collected: 02/14/2018 Status: F Source: [facility] 12:05 AM HOSPITALS REPOSITORY TYPE CODE TESTS RESULT OUT OF RANGE REFERENCE UNITS LAB GLUP(LOINC) 74 - 99 mg/dL High 135 GLUCOSE-POCT Performed By: #### GLUPO #### [facility] [address] [place] [address] DAILY PROGRESS Observed: 02/14/2018 Status: COMPLETED Source: [facility] NOTE-NEUROSURGERY 12:01 AM HOSPITALS REPOSITORY Service: Neurosurgery Subjective Data: DIPESH BERMUDEZ is a 67 year old Male who is Hospital Day # 4 and POD #2 for left retrosigmoid craniotomy for tumor resection. Objective Data: Objective Information: ---- Intake and Output ----- Mn/Dy/Year TimeIntakeOutputNet Feb 13, 2018 2:00 [id number] Feb 13, 2018 6:00 [id number] Feb 12, 2018 10:00 [id number] The Intake and Output Totals for the last 24 hours are: IntakeOutputNet [id number] T PRBPSpO2 Value36.14643893/7093% Date/Time02/13 12: 12: 12: 12: 12:00 Range(36.2C - 37.2C ) (67 - 100 ) (18 - 27 ) (128 - 211 )/ (70 - 96 ) (88% - 96% ) As of 13-Feb-2018 12:00:00, patient is on 4 L/min of oxygen via nasal cannula. 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 vMRI done 02/11 s/p L crani for tumor resection. 02/12 MRI POC 02/13 Code White Plan - FRANCK - pain control - MANAGER PROCESS IMPROVEMENT-NPO (repeat swallow eval) - PTOT-LTAC - SQH POD2 Signature/Cosignature/Attestation: Attending AttestationI saw and evaluated the patient. I personally obtained the gonzalez and critical portions of the history and physical exam or was physically present for gonzalez and critical portions performed by the resident/fellow. I reviewed the resident/fellows documentation and discussed the patient with the resident/fellow. I agree with the resident/fellows medical decision making as documented in the residents note. I personally evaluated the patient (as noted in the above attestation) on 14-Feb-2018 Electronic Signatures: Norman Daniel (Resident)) (Signed 13-Feb-2018 16:22) Authored: Service, Subjective Data, Objective Data, Assessment and Plan, Signature/Cosignature/Attestation Allie Parada) (Signed 16-Mar-2018 21:32) Authored: Signature/Cosignature/Attestation Co-Signer: Service, Subjective Data, Objective Data, Assessment and Plan, Signature/Cosignature/Attestation Last Updated: 16-Mar-2018 21:32 by Allie Parada) GLUCOSE-POCT Collected: 02/13/2018 Status: F Source: IDABEL 6:11 PM [facility] REPOSITORY TYPE CODE TESTS RESULT OUT OF RANGE REFERENCE UNITS LAB GLUP(LOINC) 74 - 99 mg/dL High 128 GLUCOSE-POCT Performed By: #### GLUPO #### [facility] [address] 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 Esophagitis, acute: Catalog Name: Esophagitis, unspecified Acute respiratory failure with hypoxia and hypercapnia: Catalog Name: Acute respiratory failure with hypoxia Dysphagia: Catalog Name: Dysphagia, unspecified Meningioma: Catalog Name: Benign neoplasm of meninges, unspecified Medical History: Meningioma: Catalog Name: Benign neoplasm of meninges, unspecified COPD (chronic obstructive pulmonary disease): Catalog Name: Chronic obstructive pulmonary disease, unspecified Type II diabetes mellitus: Catalog Name: Type 2 diabetes mellitus without complications HTN (hypertension): Catalog Name: Essential (primary) hypertension Surg History: History of resection of meningioma: Catalog Name: Other specified postprocedural states Prelim Disch Dx: Leukocytosis: Catalog Name: Elevated white blood cell count, unspecified Aspiration pneumonia due to food (regurgitated): Catalog Name: Pneumonitis due to inhalation of food and vomit MRSA pneumonia: Catalog Name: Pneumonia due to Methicillin resistant Staphylococcus aureus Significant Events: Surgical Procedure: Clinical Events This Visit, 11-Feb-2018, left retrosigmoid craniotomy for tumor resection DNAR: DNAR StatusDNAR + additional limitations DNI Activity: activity with assistance. Weight-bearing Instructions: weight-bearing as tolerated. Diet: Dietnothing by mouth Enteral Feeding: Enteral Feedingyes Tube Feeding ProductDiabetic Source AC Feeding RoutePEG (percutaneous Endoscopic Gastric) Frequency of Feedingcontinuous Rate Per Hour80 Krftekso81 ml free water flushes before feeds, after feeds, and in between feeds Labs 1: Lab Test(s)Basic Metabolic Panel, CBC, Magnesium Date To Be Drawntwice weekly Call Results Tofacility provider Fax Results Tofacility provider Wound Care 1: Wound SiteLeft craniotomy surgical incision Wound Typesurgical incision Cleanse Withsoap and water Cover Withno dressing, leave open to air Instructionsno lotions, creams, or tub soaks Wound Care 2: Wound SiteStage 1- right buttocks Wound Typepressure ulcer Cover Withno dressing, leave open to air Instructionsno lotions, creams, or tub soaks Mechanical Ventilation: Ventilation TypeCPAP Auto CPAP 4-20 Frequencyat night O2 LPM (Liters per Minute) or FIO22 Inspiratory Pressure4-20 Monitors 1: Typepulse oximetry Frequencyas needed Additional Orders: Blood Glucose Monitoringevery 6 hours Vital Signsper facility protocol Weightdaily Hospital Course (Home Care/Gold Form): Hospital Course: Hospital Course: include significant abnormal lab values Mr Bermudez is a 67 y/o male with PMH of HTN, type II DM, COPD, left lung resection ( for unclear reasons), CYNTHIA refuses treatment, and meningioma s/p craniotomy with resection 2013 (at [facility]). Admitted 02/10 for repeat surgical resection of meningioma. 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 Postop course complicated by dysphagia, brainstem infarction and hypoxia concerning for aspiration PNA. Sputum grew MRSA. Seen by ENT for dysphagia, and flexible laryngoscopy showed generalized pharyngeal weakness with gross aspiration. PEG was placed on 02/21/18 with EGD at that time noting grade D esophagitis. On 02/24/18 neurosurgery performed lumbar puncture that was negative. Was in step down for 2 days and then transferred to medicine service on 03/02. He was continued on Vancomycin until 03/04, when ID was consulted for a persistent leukocytosis, up to 23K, they recommended stopping the vancomycin and starting linezolid. CT chest 03/04 showed significant worsening of now severe bronchial and bronchiolar wall thickening, worsening small airway disease, tree in bud changes, infectious bronchiolitis and likely aspiration. Head CT showed left occipital craniectomy and cranioplasty with associated pseudomeningocele and cortical resection defect at the lateral left cerebellum, mild cortical volume loss and slight ventricular dilatation. C. Diff PCR negative. Leukocytosis resolved with switching to Linezolid, with stop date 03/13. During the infectious work up an ultrasound duplex was completed of the BUE which revealed a left basilic occlusive thrombosis adjacent to the midline. No anticoagulation indicated for this, line was removed. New Midline in RUE placed 03/14. Brain MRI repeated 03/07, showing new irregular enhancement within the brainstem suggest evolving subacute infarction within the brainstem with the possibility of a minimal amount of superimposed more acute infarction (compared to initial MRI 02/10. On 03/12 O2 needs increased to NRB mask. CXR showed left chest complete opacified and CT chest 03/13 was negative for PE and revealed complete atelectasis of left lung. He was transferred to the MICU 03/13. Goals of care established no intubation but aggressive measures to reexpand lung. Attempted to utilize NIPPV but pt did not tolerate, refusing care and mask, tried nasal mask and that was not tolerated either. IPV, vest therapy, and NT suction did reexpand the lung by 03/16 but then it partially (LLL) recollapsed 03/17. Over the last 3 days his lung has remained expanded and O2 weaned to room air. MICU team met with family, the Cyber Software Engineer (had been contacted by family), and MICU team and goals of care established further. He will go only to SDU where pulmonary needs can be met, then from there to LTACH for ongoing care. Family was to select a facility over this past weekend. SDU course He is now transferred to [facility]. Upon arrival patient was sleeping, mildly arousable. He was on room air, having episodes of apnea with POx drop to 87% during apneic episodes. RT called to place patient on CPAP. After he was placed on CPAP (auto pap as per previous MICU orderers) POx improved to upper 90s. During the day, pt continue to be drowsy, unable to assess LOC due to level drowsiness, grimacing to painful stimulation. Patient was kept on auto CPAP.Chest Xray order this morning 03/22 with improvement compared to 03/21 Cxray. ABG showed 7.48/37/74/98 HCO3 (27.4). Repeat VBG 7.41/46/36/HCo3 29.2 Code Bat called by Dr Ramirez. Head CT scan done w/o new acute findings. Per neuro stroke likely metabolic encephalopathy. Repeat brain MRI on 03/23 did not show any changes in comparison to prior exam. Hold melatonin and Risperidone, narcotics continue O2 via NC 2L and CPAP at night oxygenation support continue treatement for PSA PNA with levaquin (start on 03/21, plan for 7-10 days of therapy)-stopping on 04/04 03/27-03/29 - Left lower lobe collapse noted on CXR and continues to have leukocytosis. ID consulted, with repeat cultures and C-diff samples negative. NO increase in oxygen needs and aggressive pulmonary toileting contiued. Patient was weaned off aggressive pulmonary hygiene. PT/OT/MANAGER PROCESS IMPROVEMENT rec discharge to a SNF. Infectious Disease: PPD Statusnot given MRSAyes MRSA Sitesputum VREno C. Diffno Other Resistant Organismno Isolation TypeContact, Droplet Gold Form Orders: Care Recommendation: I recommend that INPATIENT care is required at:Skilled Estimated StayConvalescent stay < 30 days PrognosisGood Rehab Potential/FunctionImprove Provider CertificationI certify that inpatient care is required at the level recommended above. To the best of my knowledge, all information provided about the individual is a true and accurate reflection of the individual's condition. Therapy Orders: Occupational Therapy OrdersEval and Treat ([facility]) daily 2 times/day Physical Therapy OrdersEval and Treat ([facility]) daily 2 times/day Speech Therapy OrdersEval and Treat ([facility]) 1-3 times/week Provider Follow Up: Physician To Follow at Skilled/RehabAttending Physician at Skilled/Rehab Provider FINAL REVIEW of Orders: Final Review: Final Review of Medication Reconciliation and Orders Completedby Physician Reviewing Abdias Ramirez MD at 04-Apr-2018 16:32:29 Appointments: Follow-Up Appointment 01: Physician/Dept/ServiceDr. Cardoza - Neurosurgery Scheduled Date/Bugt35-Gku-6669 15:[address] 5[address] Floor, [place] [id number] Phone [phone] CommentsPlease arrive 10-15 minutes early, bring photo ID, current list of medications & dosages, insurance cards and any copay that may apply. If unable to keep this appointment, please call to cancel at least 24 hrs prior to appointment. Follow-Up Appointment 02: Physician/Dept/ServiceDr. Christian Silva - Gastroenterology Scheduled Date/Aold30-Jnf-4762 10:[address] [address] Phone [phone] CommentsPlease arrive 10-15 minutes early, bring photo ID, current list of medications & dosages, insurance cards and any copay that may apply. If unable to keep this appointment, please call to cancel at least 24 hrs prior to appointment. Gold Form - Nursing Summary: Special Treatments/Procedures (in past 14 days): Chemotherapyno Dialysisno IV Medicationyes Last Date Lnkfmnua55-Jaq-5308 Oxygen Therapyyes Last Date Vwzwmzmw14-Jwk-1224 Transfusionsno Feverno Radiationno Ventilatorno Tracheostomyno Suctioningyes Suctioning Frequencyintermittent Secretionssalivary Nutrition: Nutritional Statusfeeding tube Date Tube Swpzvjxs57-Dum-0288 Feeding Tube TypePEG tube Nutrition CommentDiabetasource AC @ 80mL/hour; 60mL flushes before and after medications IV Hydration: Type Of Vascular AccessPeripheral IV Peripheral IV #1 Insertion Pdfd41-Ymb-7407 Peripheral IV #1 Locationleft basilic vein (medial side of arm) Device #1Angiocath Peripheral IV #1 Gauge20 gauge Sensory/Comfort: Visionuses glasses/contacts Hearingadequate Speechdifficult, garbled Language NeededEnglish Painno Elimination: Bladderincontinent Bowelincontinent Last Bowel Kvdkfhic17-Jed-9402 Toiletingdiapered Safety: Jean Claude Bird Number/Reasonx2-3 for safety Restraintsno Sitterno Fall Riskweakness Medication/Hygiene/Mobility: Medication Administrationtotal dependent Bathingtotal dependent Dressingtotal dependent Bed Mobilitytotal dependent Wheelchairtotal dependent Transferstotal dependent Ambulationtotal dependent Mobilityparesis Paresisright side Pressure Ulcer 1: Locationsacrum StageStage 1 Dressingmepilex Dressing Change Frequencydaily and PRN Incision 1: Locationleft crani Appearancesutures Dressingopen to air Gold Form - Media Production Operator Summary: Community Support: Community Agencies Active With Patientcase management and [facility] and possibly his niece Previous Admissions: Other Hospital/Longterm Admissions Within Past 60 Daysno Other Pertinent InformationMedicaid redetermination needs to be completed by end of month Sister Nam Plascencia ([phone]) was informed Nephew, Donta Plascencia has been very involved and the primary spokesperson fo the family He can be reached at [phone] Referral Information: Referral To of [facility] Referring Facility And [facility] Contact Rmcn6wo floor Supervisor Sandblaster Contact Phone [phone] (Social Work Office) Involved Clinicians To Be Contacted For Yxlopyglo8ee floor Supervisor Sandblaster Advance Directive: DPOA Name/Phone Number(Sibling) Isha Galdamez [phone] Insurance 1: InsuranceAetna Social Security: Social Security [id number] Mental & Functional Status: Mental/Behavioral Statusalert, calm, cooperative, oriented, orientation seems to wax and wane Oriented toperson, time and place Functional Status Prior To AdmissionPatient reported being 100% independent with his daily activities Capacity For Independent Living/Bundle Helper PlanPatient is interested in returning home once short stay is completed Electronic Signatures: Deanne Hinton (METAL ENGINEERING PROCESS WORKER) (Signed 04-Apr-2018 17:30) Authored: Gold Form - Media Production Operator Summary Sandro Fraga (CLIN COOR) (Signed 28-Mar-2018 15:36) Authored: Discharge Orders Cherelle Brooks (CN) (Signed 29-Mar-2018 04:21) Authored: Gold Form - Nursing Summary Fran Verde (PT ACC REP) (Signed 04-Mar-2018 09:03) Authored: Appointments Shagufta Ramirez) (Signed 04-Apr-2018 16:32) Authored: Provider FINAL REVIEW of Orders Co-Signer: Gold Form Orders Shi Galdamez (PT SVS REP) (Signed 31-Mar-2018 08:36) Authored: Appointments Marti Carlisle (CN) (Signed 01-Apr-2018 23:25) Authored: Gold Form - Nursing Summary Jr Jacobs ([facility]) (Signed 08-Mar-2018 17:59) Authored: Discharge Orders, Hospital Course (Home Care/Gold Form), Gold Form Orders Lucas Waddell (RN) (Signed 01-Apr-2018 04:15) Authored: Gold Form - Nursing Summary Brittany Cool ([facility]) (Signed 04-Apr-2018 16:27) Entered: Discharge Orders, Hospital Course (Home Care/Gold Form) Authored: Discharge Orders, Hospital Course (Home Care/Gold Form), Gold Form Orders Marilin Nguyen (RN) (Signed 15-Feb-2018 02:27) Authored: Gold Form - Nursing Summary Cherelle Juarez ([facility]) (Signed 30-Mar-2018 20:36) Authored: Discharge Orders, CABG / Valve, Hospital Course (Home Care/Gold Form), Appointments Danielle Corral ([facility]) (Signed 06-Mar-2018 17:21) Authored: Discharge Orders, CABG / Valve, Hospital Course (Home Care/Gold Form), Gold Form Orders Brooke Mullen ([facility]) (Signed 03-Mar-2018 22:58) Authored: Discharge Orders, Hospital Course (Home Care/Gold Form), Gold Form Orders Rayne Correa (SW) (Signed 13-Feb-2018 16:35) Authored: Gold Form - Media Production Operator Summary Last Updated: 04-Apr-2018 17:30 by Deanne Hinton) MURRAY PEÑA Collected: 02/13/2018 Status: F Source: UNIVERSITY 1:10 PM [facility] REPOSITORY TYPE CODE TESTS RESULT OUT OF REFERENCE UNITS RANGE LAB EMRAC(LOIN C) ADDON CONFIRMATION REQUEST REC'D Performed By: #### EMRAD #### NO LOCATION NEEDED GLUCOSE-POCT Collected: 02/13/2018 Status: F Source: [facility]EL 12:56 PM [facility] REPOSITORY TYPE CODE TESTS RESULT OUT OF RANGE REFERENCE UNITS LAB GLUP(LOINC) 74 - 99 mg/dL High 138 GLUCOSE-POCT Performed By: #### GLUPO #### [facility] [address] [place] [address] TH ABDOMEN AP VIEW Observed: 02/13/2018 Status: F Source: [facility] 10:57 AM [facility] REPOSITORY Patient Name: DIPESH BERMUDEZ STUDY: TH ABDOMEN AP VIEW; 02/13/2018 10:57 am INDICATION: Signs/Symptoms: PLEASE PERFORM AFTER DHT PLACEMENT.. COMPARISON: None ACCESSION NUMBER(S): [id number] ORDERING CLINICIAN: NORMAN DANIEL FINDINGS: Dobhoff tube overlies the GE junction. Nonobstructive bowel gas pattern. Limited evaluation of pneumoperitoneum on supine imaging, however no gross evidence of free air is noted. Visualized lungs are clear. Osseous structures demonstrate no acute bony changes. IMPRESSION: 1. Dobhoff tube overlies the GE junction/proximal stomach advancement is recommended. Electronically signed by: Brandee COTTER MD TH CHEST 1 VIEW Observed: 02/13/2018 Status: F Source: IDABEL 9:35 AM [facility] REPOSITORY Patient Name: DIPESH BERMUDEZ STUDY: TH CHEST 1 VIEW; 02/13/2018 9:35 am INDICATION: Signs/Symptoms: agitaiton. COMPARISON: 02/12/2018 ACCESSION NUMBER(S): [id number] ORDERING CLINICIAN: NORMAN DANIEL FINDINGS: CARDIOMEDIASTINAL SILHOUETTE: Cardiomediastinal silhouette is stable in size and configuration. LUNGS: No significant change in left subsegmental basilar atelectasis and trace pleural effusion. The right lung base is unremarkable. There is no pneumothorax. ABDOMEN: No remarkable upper abdominal findings. BONES: No acute osseous changes. IMPRESSION: 1. No significant change in left subsegmental basilar atelectasis and trace pleural effusion. I personally reviewed the images/study and resident interpretation and I agree with the findings as stated. This study was performed, analyzed, and interpreted at [facility], [place], [place]. Electronically signed by: Brandee COTTER MD ARTERIAL BLOOD GAS Collected: 02/13/2018 Status: F Source: [facility] 8:57 AM [facility]POS[facility] TYPE CODE TESTS RESULT OUT OF REFERENCE UNITS RANGE LAB PHART(LOIN 7.38 - 7.42 C) pH High 7.45 LAB PCO2A(LOIN 38 - 42 mmHg C) PCO2 High 43 LAB PO2A(LOINC 85 - 95 mmHg ) PO2 High 97 LAB TEMP(LOINC degrees C ) PATIENT TEMPERATURE 37.0 Result Comment: NOTE: PATIENT RESULTS ARE NOT CORRECTED FOR TEMPERATURE. LAB SO2%A(LOINC) 94 - 100 % SO2 99 LAB BSEXB(LOINC) -2.0 - 3.0 mmol/L BASE High EXCESS-BLOOD 5.2 LAB BICAR(LOINC) 22.0 - mmol/L 26.0 BICARB, High CALCULATED 29.9 Performed By: #### BLGA1 #### [facility] [address] [place] [address] RENAL FUNCTION PANEL Collected: 02/13/2018 Status: F Source: [facility] 8:45 AM [facility] REPOSITORY TYPE CODE TESTS RESULT OUT OF REFERENCE UNITS RANGE LAB GLU(LOINC) 74 - 99 mg/dL GLUCOSE High 155 LAB SOD(LOINC) 136 - 145 mmol/L Low SODIUM 132 LAB K(LOINC) 3.5 - 5.3 mmol/L POTASSIUM 4.3 LAB CHLOR(LOIN 98 - 107 mmol/L C) Low CHLORIDE 97 LAB BIC(LOINC) 21 - 32 mmol/L BICARBONATE 27 LAB ANGAP(LOIN 10 - 20 mmol/L C) ANION GAP 12 LAB UREA(LOINC 6 - 23 mg/dL ) UREA NITROGEN 22 LAB CREA(LOINC 0.50 - 1.30 mg/dL ) CREATININE 1.04 LAB GFRFN(LOIN >60 mL/min/1.7 C) 3m2 GFR-NON AM. >60 LAB GFRAA(LOIN >60 mL/min/1.7 C) 3m2 GFR- AM. >60 Result Comment: CALCULATIONS OF ESTIMATED GFR ARE PERFORMED USING THE MDRD STUDY EQUATION FOR THE IDMS-TRACEABLE CREATININE METHODS. CLIN CHEM 2007;53:766-72 LAB CA(LOINC) 8.6 - 10.6 mg/dL CALCIUM 9.1 LAB PHOS(LOINC) 2.5 - 4.9 mg/dL PHOSPHORUS 3.1 Result Comment: The performance characteristics of phosphorus testing in heparinized plasma have been validated by the individual laboratory site where testing is performed. Testing on heparinized plasma is not approved by the FDA; however, such approval is not necessary. LAB ALB(LOINC) 3.4 - 5.0 g/dL Low ALBUMIN 3.1 Performed By: #### RENAL #### [facility] [address] [place] [address] MAGNESIUM Collected: 02/13/2018 Status: F Source: [facility] 8:45 AM [facility] REPOSITORY TYPE CODE TESTS RESULT OUT OF REFERENCE UNITS RANGE LAB MG(LOINC) 1.60 - 2.40 mg/dL MAGNESIUM 1.73 Performed By: #### MG #### [facility] [address] [place] [address] GLUCOSE-POCT Collected: 02/13/2018 Status: F Source: [facility] 6:34 AM [facility] REPOSITORY TYPE CODE TESTS RESULT OUT OF RANGE REFERENCE UNITS LAB GLUP(LOINC) 74 - 99 mg/dL High 146 GLUCOSE-POCT Performed By: #### GLUPO #### [facility] [address] [place] [address] DAILY PROGRESS Observed: 02/13/2018 Status: COMPLETED Source: [facility] NOTE-NEUROSURGERY 12:19 AM [facility] REPOSITORY Service: Neurosurgery Subjective Data: DIPESH BERMUDEZ is a 67 year old Male who is Hospital Day # 3 and POD #1 for left retrosigmoid craniotomy for tumor resection. Objective Data: Objective Information: ---- Intake and Output ----- Mn/Dy/Year TimeIntakeOutputNet Feb 12, 2018 2:00 [id number] Feb 12, 2018 6:00 [id number] Feb 11, 2018 10:00 [id number] The Intake and Output Totals for the last 24 hours are: IntakeOutputNet [id number] Physical Exam: Neurological: AOx3 PERRL L CN6, L FD REMY 5/5 SILT groin CDI incision CDI Assessment and Plan: Assessment: h/o HTN, DM, prev L crani for meningioma p/w worsening gait and diplopia, interval inc in residual L petroclival meningioma 02/10 s/p angio with no target for embo. vMRI done 02/11 s/p L crani for tumor resection. 02/12 MRI POC plan FRANCK pain control MANAGER PROCESS IMPROVEMENT: NPO (repeat swallow eval) PTOT SQH POD2 Signature/Cosignature/Attestation: Attending AttestationI saw and evaluated the patient. I personally obtained the gonzalez and critical portions of the history and physical exam or was physically present for gonzalez and critical portions performed by the resident/fellow. I reviewed the resident/fellows documentation and discussed the patient with the resident/fellow. I agree with the resident/fellows medical decision making as documented in the residents note. I personally evaluated the patient (as noted in the above attestation) on 13-Feb-2018 Electronic Signatures: Manoj Nunes) (Signed 13-Feb-2018 07:43) Authored: Signature/Cosignature/Attestation Co-Signer: Service, Subjective Data, Objective Data, Assessment and Plan, Signature/Cosignature/Attestation Troy Abraham (Resident)) (Signed 12-Feb-2018 15:21) Authored: Service, Subjective Data, Objective Data, Assessment and Plan, Signature/Cosignature/Attestation Last Updated: 13-Feb-2018 07:43 by Manoj Nunes) TH CHEST 1 VIEW Observed: 02/12/2018 Status: F Source: [facility] 11:05 PM [facility] REPOSITORY Patient Name: DIPESH BERMUDEZ STUDY: TH CHEST 1 VIEW; 02/12/2018 11:05 pm INDICATION: Signs/Symptoms: cough. COMPARISON: Chest radiograph 02/10/2018 ACCESSION NUMBER(S): [id number] ORDERING CLINICIAN: TROY ABRAHAM FINDINGS: CARDIOMEDIASTINAL SILHOUETTE: The cardiac silhouette is again noted to be slightly prominent in size. LUNGS: Unchanged left basilar atelectatic changes as well as a trace pleural effusion are again noted. The right lung base is unremarkable. ABDOMEN: No remarkable upper abdominal findings. BONES: No acute osseous changes. IMPRESSION: 1. Unchanged left basilar atelectatic changes as well as trace pleural effusion. 2. Unchanged slightly enlarged cardiac silhouette. I personally reviewed the images/study and I agree with the findings as stated. This study was interpreted at [facility], [place], [place]. Electronically signed by: GAYATHRI STEVENSON MD MAGNESIUM Collected: 02/12/2018 Status: F Source: IDABEL [address] [place] [address] REPOSITORY TYPE CODE TESTS RESULT OUT OF REFERENCE UNITS RANGE LAB MG(LOINC) 1.60 - 2.40 mg/dL MAGNESIUM 1.66 Performed By: #### MG #### [facility] [address] [place] [address] RENAL FUNCTION PANEL Collected: 02/12/2018 Status: F Source: [facility] [address] [place] [address] REPOSITORY TYPE CODE TESTS RESULT OUT OF REFERENCE UNITS RANGE LAB GLU(LOINC) 74 - 99 mg/dL GLUCOSE High 124 LAB SOD(LOINC) 136 - 145 mmol/L Low SODIUM 134 LAB K(LOINC) 3.5 - 5.3 mmol/L POTASSIUM 4.2 LAB CHLOR(LOIN 98 - 107 mmol/L C) CHLORIDE 98 LAB BIC(LOINC) 21 - 32 mmol/L BICARBONATE 27 LAB ANGAP(LOIN 10 - 20 mmol/L C) ANION GAP 13 LAB UREA(LOINC 6 - 23 mg/dL ) UREA NITROGEN 17 LAB CREA(LOINC 0.50 - 1.30 mg/dL ) CREATININE 1.08 LAB GFRFN(LOIN >60 mL/min/1.7 C) 3m2 GFR-NON AM. >60 LAB GFRAA(LOIN >60 mL/min/1.7 C) 3m2 GFR- AM. >60 Result Comment: CALCULATIONS OF ESTIMATED GFR ARE PERFORMED USING THE MDRD STUDY EQUATION FOR THE IDMS-TRACEABLE CREATININE METHODS. CLIN CHEM 2007;53:766-72 LAB CA(LOINC) 8.6 - 10.6 mg/dL CALCIUM 9.1 LAB PHOS(LOINC) 2.5 - 4.9 mg/dL PHOSPHORUS 3.6 Result Comment: The performance characteristics of phosphorus testing in heparinized plasma have been validated by the individual laboratory site where testing is performed. Testing on heparinized plasma is not approved by the FDA; however, such approval is not necessary. LAB ALB(LOINC) 3.4 - 5.0 g/dL Low ALBUMIN 3.1 Performed By: #### RENAL #### [facility] [address] [place] [address] GLUCOSE-POCT Collected: 02/12/2018 Status: F Source: [facility] 7:42 PM [facility] REPOSITORY TYPE CODE TESTS RESULT OUT OF RANGE REFERENCE UNITS LAB GLUP(LOINC) 74 - 99 mg/dL High 135 GLUCOSE-POCT Performed By: #### GLUPO #### [facility] [address] [place] [address] NR MRI BRAIN W/WO Observed: 02/12/2018 Status: F Source: [facility] CONTRAST 3:04 PM [facility] REPOSITORY Patient Name: DIPESH BERMUDEZ STUDY: NR MRI BRAIN W/WO CONTRAST; 02/12/2018 3:04 pm INDICATION: Signs/Symptoms: s/p craniotomy for tumor resection, Lie Flat: Yes, Pre Med: No. COMPARISON: 02/10/2018 brain MR and 02/12/[address] ACCESSION NUMBER(S): [id number] ORDERING CLINICIAN: CHENG ALCALA TECHNIQUE: Axial T2, FLAIR, DWI, gradient echo T2 and sagittal and coronal T1 weighted images of brain were acquired. Post contrast T1 weighted images were acquired after administration of 90 mL gadobenate (Multihance) gadolinium based intravenous contrast. FINDINGS: Left suboccipital craniotomy with mesh repair has been performed with resection of a mass along the left clivus/cerebellopontine angle. There is a band of enhancing tissue along the clival surgical site at the insertion of the left tentorium approximately 1.5 cm transverse dimension, 6-7 mm in thickness corresponding to the recent CT. The remaining mass has been resected. Mild dural enhancement is present elsewhere in the posterior fossa and supratentorial region consistent with recent surgery. The diffusion images demonstrate a 5 x 16 mm band of restriction along the left ventral and lateral aspect of the alejandra with subtle enhancement along the periphery. No other foci of diffusion restricted suspicious for acute ischemia are noted. A 1.4 cm collection of fluid and hemorrhagic material lies deep to the mesh repair similar to the previous exam. Subcutaneous collection of fluid approximately 8 mm in thickness and associated edema in the scalp are also similar to the prior study. Multiple bubbles of pneumocephalus are present including air in the frontal horn of the left lateral ventricle. The occipital horns of the lateral ventricles have trace amounts of hemorrhage. The ventricles and sulci are mildly prominent similar to the prior study with an old area of encephalomalacia again noted in the medial inferior right cerebellar hemisphere. The white matter has scattered focal hyperintensities similar to the prior study. The brain parenchyma enhances normally otherwise. No mass or acute hemorrhage in the brain parenchyma is noted. The paranasal sinuses and mastoid air cells are normally aerated. IMPRESSION: 1. A band of enhancing tissue lies along the surgical bed along the left side of the clivus at the insertion of the left tentorium corresponding to the postoperative CT. This may represent residual tumor or postoperative changes; attention to this region on follow-up exams is recommended. 2. The left lateral aspect of the alejandra has developed a band of acute ischemia with faint enhancement along its margins. 3. The occipital horns of the lateral ventricles have trace amounts of hemorrhage. 4. Old areas of encephalomalacia and white matter focal hyperintensities are are similar to the prior study and may be secondary to chronic microvascular ischemic, degenerative or other etiologies. Electronically signed by: PHYSICIAN RUMA SWALLOW EVALUATION Observed: 02/12/2018 Status: UNK Source: [place] [id number] CLINICAL 11:07 AM [facility]ITALS REPOSITORY SWALLOW Rehab: Info: Mode of Treatmentspeech-language pathology Time IN10:45 Time OUT11:10 Total Treatment [id number] Patient in ... at end of sessionbed, 3 railings up Evaluation TypeBedside Clinical Swallow Patient Profile Reviewedyes Onset of Illness/Injury or Date of Bacqkcg11-Cyz-7610 Reason for ReferralSLP consulted to assess oropharyngeal swallowing function for safe oral diet initiation s/p L retrosigmoid crani for tumor resect 02/11. Referring PhysicianMahsa Mar Observations of PatientSevere to Profound Dysarthria, edentulous , baseline congested cough , pt denies prior dysphagia and states he had a cough before surgery. Pt currently on 3 L O2 NC Pertinent History of Current Functional Medbvls20 y/o with a PMH of htn, DM, previous craniotomy with resection of an intracranial mass- meningoma in 2013 (at [facility]) , and smoker who was admitted for a resect of an enlarging mass. Precautions/Limitationsswallowing precautions; oxygen therapy device and L/min Limitations/Impairmentssafety/cognitive; sensory; swallowing Impression: Assessment (Swallow Eval)Oropharyngeal Dysphagia Clinical Swallowing Evaluation completed. Pt p/w weak right sided oromotor skills , poor lingual control -coordination , and strength, and right-sided labial weakness. Pt is edentulous and states he has dentures at home but doesn't not wear them to eat. Severely poor speech intelligibly noted for basic questions. Pt offered 1 ice chip, and 2 tsp sips of water with extra struggling swallows needed per bolus with an overt coughing/choking spell , SOB , and facial discoloration exhibited post 2nd tsp presentation d/t severe impairment of current swallowing function and high risk of aspiration. Rehab Potential/Prognosis (Swallow Eval)good, to achieve stated therapy goals Speech Therapy RecommendationsStrict NPO, consider alternate means of nutrition, hydration, and oral medications. rec Moist oral swabs after aggressive oral care d/w team ,pt. Criteria for Skilled Therapeutic Interventions Met (Swallow Eval)yes; treatment indicated Therapy Frequency (OT)3 times/wk Predicted Duration of Therapy Interventionuntil discharge MANAGER PROCESS IMPROVEMENT Diet Recommendations (Swallow Eval)NPO Monitor for Signs of Aspiration (Swallow Eval)pneumonia; upper respiratory infection; fever; gurgly voice; ongoing/increased oxygen supplementation Oral Assess: Oral Labial Strength (Oral Mechanism)impaired retraction; impaired pursing; impaired coordination; impaired seal Oral Labial Mobility (Oral Mechanism)impaired retraction; impaired pursing; impaired seal; impaired coordination Lingual Strength (Oral Mechanism)impaired lateralization; impaired coordination Lingual Mobility (Oral Mechanism)impaired coordination; impaired lateralization Tone (Oral Mechanism)impaired Dentition (Oral Mechanism)has dentures but rarely or never uses them to eat Oral Musculature General Assessmentabnormal Respiratory Support Currently in Usenasal cannula in use CSE: Mode of Presentation, Thin Liquid (CSE)fed by clinician Volume and Consistency Presented, Thin Liquid (CSE)1 ice chip, 2 tsp sips Oral Phase Results, Thin Liquid (CSE)impaired oral phase, signs of dysfunction present Pharyngeal Phase Results, Thin Liquid (CSE)impaired pharyngeal phase of swallowing Comment, Thin Liquid (CSE)unsafe for p.o. at this time Short Term Goals: Dysphagia/Swallow: Established [id number] Dysphagia/Swallow: Goal Details1. MANAGER PROCESS IMPROVEMENT to follow, and continually assess. Oral motor therapy. 2. S/L evaluation. Dysphagia/Swallow: Time Frame for Goal3 days Education: Learnerpatient Barriers to Learningcommunication limitations barrier DC Recommendations: Anticipated DIscharge Disposition (Swallow Eval)unable to determine at this time; refer to subsequent notes Demonstrates Need for Referral to Another Service (Swallow Eval)dietitian Electronic Signatures: Tootie Ferro (RYLAN) (Signed 12-Feb-2018 11:28) Authored: Rehab Last Updated: 12-Feb-2018 11:28 by Tootie Ferro (RYLAN) NR CT HEAD WO Observed: 02/12/2018 Status: F Source: [facility] CONTRAST 4:48 AM [facility]ALS REPOSITORY Patient Name: DIPESH BERMUDEZ STUDY: NR CT HEAD WO CONTRAST; 02/12/2018 4:48 am INDICATION: Signs/Symptoms: s/p craniotomy for tumor resection, Lie Flat: Yes. COMPARISON: MR brain dated 02/10/2018 ACCESSION NUMBER(S): [id number] ORDERING CLINICIAN: CHENG ALCALA TECHNIQUE: Noncontrast axial CT scan of head was performed. Angled reformats in brain and bone windows were generated. The images were reviewed in bone, brain, blood and soft tissue windows. FINDINGS: There are postsurgical changes from old left temporal craniotomy and new left suboccipital craniotomy and resection of previously visualized left prepontine mass. There is a 3 mm thick 15 mm wide band of soft tissue density material along the left clivus and dorsum sella at the site of surgical resection. Pneumocephalus is present with scattered air bubbles in the subarachnoid and left lateral ventricular regions. There is a 1.4 cm thick collection of extra-axial fluid and air adjacent to the mesh repair of the left suboccipital craniotomy site. There is again mild prominence of the ventricles, cisterns and sulci, suggestive of mild diffuse parenchymal volume loss. There is no midline shift. Slaughter-white differentiation is intact with no evidence of transcortical infarct. There is no new hyperdense intraparenchymal hemorrhage or mass. Paranasal sinuses and mastoid air cells are clear. IMPRESSION: 1. S/p left suboccipital craniotomy and resection of left pontine angle mass; a 3 mm thick approximately 15 mm wide band of soft tissue density material is present along the left lateral clivus in the region of the surgical bed; enhanced MR may be helpful for further evaluation. 2. There is a subdural collection of air and fluid in the left posterior fossa, immediately deep to the craniotomy, with mild mass effect on the adjacent left cerebellar lobe. 3. No evidence of midline shift, acute intraparenchymal hemorrhage, or transcortical infarct. I personally reviewed the images/study and resident's interpretation and I agree with the findings as stated. This study was performed , analyzed and interpreted at [place], [place]. Electronically signed by: ANOOP MENDOZA PHYSICIAN CBC Collected: 02/12/2018 Status: F Source: [facility] 12:54 HOSPITALS REPOSITORY TYPE CODE TESTS RESULT OUT OF REFERENCE UNITS RANGE LAB WBCR(LOINC 4.4 - 11.3 x10E9/L ) WBC High 18.2 LAB NRBC(LOINC 0.0-0.0 /100 WBC ) NUCLEATED RBC 0.0 LAB RBCCT(LOIN 4.50 - 5.90 x10E12/L C) RBC 5.11 LAB HGB(LOINC) 13.5 - 17.5 g/dL HGB 13.7 LAB HCT(LOINC) 41.0 - 52.0 % HCT 41.3 LAB MCV(LOINC) 80 - 100 fL MCV 81 LAB MCHC2(LOIN 32.0 - 36.0 g/dL C) MCHC 33.2 LAB PLTCT(LOIN 150 - 450 x10E9/L C) PLT 290 LAB RDWCV(LOIN 11.5 - 14.5 % C) RDW-CV 14.0 Performed By: #### CBC #### [facility] [address] [place] [address] MAGNESIUM Collected: 02/12/2018 Status: F Source: ID[facility]EL 12:54 [facility] REPOSITORY TYPE CODE TESTS RESULT OUT OF REFERENCE UNITS RANGE LAB MG(LOINC) 1.60 - 2.40 mg/dL MAGNESIUM 1.63 Performed By: #### MG #### [facility] [address] [place] [id number] RENAL FUNCTION PANEL Collected: 02/12/2018 Status: F Source: [facility]EL 12:54 [facility] REPOSITORY TYPE CODE TESTS RESULT OUT OF REFERENCE UNITS RANGE LAB GLU(LOINC) 74 - 99 mg/dL High GLUCOSE 179 LAB SOD(LOINC) 136 - 145 mmol/L Low SODIUM 133 LAB K(LOINC) 3.5 - 5.3 mmol/L POTASSIUM 5.0 Result Comment: MILD HEMOLYSIS DETECTED. The result may be falsely elevated due to hemolysis or other interferents. Clinical correlation is recommended. Repeat testing may be considered. LAB CHLOR(LOINC) 98 - 107 mmol/L CHLORIDE 99 LAB BIC(LOINC) 21 - 32 mmol/L BICARBONATE 23 LAB ANGAP(LOINC) 10 - 20 mmol/L ANION GAP 16 LAB UREA(LOINC) 6 - 23 mg/dL UREA NITROGEN 14 LAB CREA(LOINC) 0.50 - mg/dL 1.30 CREATININE 1.07 LAB GFRFN(LOINC) >60 mL/min/1.73m 2 GFR-NON AM. >60 LAB GFRAA(LOINC) >60 mL/min/1.73m 2 GFR- AM. >60 Result Comment: CALCULATIONS OF ESTIMATED GFR ARE PERFORMED USING THE MDRD STUDY EQUATION FOR THE IDMS-TRACEABLE CREATININE METHODS. CLIN CHEM 2007;53:766-72 LAB CA(LOINC) 8.6 - 10.6 mg/dL CALCIUM 8.9 LAB PHOS(LOINC) 2.5 - 4.9 mg/dL PHOSPHORUS 4.0 Result Comment: The performance characteristics of phosphorus testing in heparinized plasma have been validated by the individual laboratory site where testing is performed. Testing on heparinized plasma is not approved by the FDA; however, such approval is not necessary. LAB ALB(LOINC) 3.4 - 5.0 g/dL Low ALBUMIN 2.8 Performed By: #### RENAL #### [facility] [address] [address] CALCIUM, IONIZED Collected: 02/12/2018 Status: F Source: [facility] 12:52 HOSPITALS REPOSITORY TYPE CODE TESTS RESULT OUT OF RANGE REFERENCE UNITS LAB CAION(LOINC 1.10 - 1.33 mmol/L ) 1.25 CALCIUM,IONI ZED Result Comment: The performance characteristics of ionized calcium tested in heparinized plasma or serum have been validated by the individual laboratory site where testing is performed. Testing on heparinized plasma or serum is not approved by the FDA; however, such approval is not necessary. Performed By: #### IONC1 #### [facility] [address] [place] [address] COAGULATION SCREEN Collected: 02/12/2018 Status: F Source: [facility] 12:52 AM [facility]OSPITALS REPOSITORY TYPE CODE TESTS RESULT OUT OF REFERENCE UNITS RANGE LAB PT(LOINC) 9.8 - 12.7 sec PROTHROMBIN TIME 12.2 LAB INR(LOINC) 0.9 - 1.1 PT, INR 1.1 LAB APTT(LOINC 25 - 36 sec ) APTT 30 Result Comment: THE APTT IS NO LONGER USED FOR MONITORING UNFRACTIONATED HEPARIN THERAPY. FOR MONITORING HEPARIN THERAPY, USE THE HEPARIN ASSAY. Performed By: #### COAGS #### [facility] [address] [place] [address] DAILY PROGRESS Observed: 02/12/2018 Status: COMPLETED Source: UNIVERSITY NOTE-NEUROSURGERY 12:16 AM HOSPITALS REPOSITORY Service: Neurosurgery Subjective Data: DIPSEH BERMUDEZ is a 67 year old Male who is Hospital Day # 3 and POD #1 for left retrosigmoid craniotomy for tumor resection. Objective Data: Objective Information: ---- Intake and Output ----- Mn/Dy/Year TimeIntakeOutputNet Feb 10, 2018 10:00 [id number] Feb 10, 2018 10:00 [id number] Feb 10, 2018 2:00 [id number] T PRBPSpO2 [id number]/50249% Date/Time02/12 0:009/29 0:009/29 0:009/29 0:009/29 0:00 Range(36C - 36.8C ) (60 - 75 ) (11 - 18 ) (143 - 185 )/ (74 - 95 ) (96% - 100% ) As of 12-Feb-2018 00:00:00, patient is on 3 L/min of oxygen via nasal cannula. 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 vMRI done 02/11 s/p L crani for tumor resection. plan CTH MRI FRANCK after MRI if stable pain control swallow eval PTOTSP teds scds SQH POD2 Signature/Cosignature/Attestation: Attending AttestationI saw and evaluated the patient. I personally obtained the gonzalez and critical portions of the history and physical exam or was physically present for gonzalez and critical portions performed by the resident/fellow. I reviewed the resident/fellows documentation and discussed the patient with the resident/fellow. I agree with the resident/fellows medical decision making as documented in the residents note. I personally evaluated the patient (as noted in the above attestation) on 12-Feb-2018 Electronic Signatures: Manoj Nunes) (Signed 12-Feb-2018 07:38) Authored: Signature/Cosignature/Attestation Co-Signer: Service, Subjective Data, Objective Data, Assessment and Plan, Signature/Cosignature/Attestation Manoj Oviedo (Resident)) (Signed 12-Feb-2018 00:18) Authored: Service, Subjective Data, Objective Data, Assessment and Plan, Signature/Cosignature/Attestation Last Updated: 12-Feb-2018 07:38 by Manoj Nunes) GLUCOSE-POCT Collected: 02/11/2018 Status: F Source: [facility]EL 6:28 PM HOSPITALS REPOSITORY TYPE CODE TESTS RESULT OUT OF RANGE REFERENCE UNITS LAB GLUP(LOINC) 74 - 99 mg/dL High 146 GLUCOSE-POCT Performed By: #### GLUPO #### [facility] [address] [place] [address] POST OPERATIVE NOTE - Observed: 02/11/2018 Status: COMPLETED Source: [facility] OR 5:06 PM HOSPITALS REPOSITORY Post Operative Note: Post-Procedure Diagnosis: Meningioma Procedure: left retrosigmoid craniotomy for tumor resection Surgeon: Augustine cardoza Resident/Fellow/Other Soil And Plant Scientist: Uday Alcala Anesthesia: General I.V. Fluids: 1.5 L NS, 1 L LR Estimated Blood Loss (mL): 50 cc Blood Replacement: none Specimen: yes Complications: none Findings: fibrous mass with post-treatment scar, adherent to brainstem and clivus Patient Returned To/Condition: PACU/Satisfactory Signature/Cosignature/Attestation: Attending AttestationI was present for gonzalez portions of the procedure and the procedure lasted longer than 5 minutes. Electronic Signatures: Augustine Cardoza) (Signed 14-Feb-2018 16:49) Authored: Signature/Cosignature/Attestation Co-Signer: Post Operative Note, Signature/Cosignature/Attestation Bobby Richardson (Resident)) (Signed 11-Feb-2018 17:09) Authored: Post Operative Note, Signature/Cosignature/Attestation Last Updated: 14-Feb-2018 16:49 by Augustine Cardoza) ARTERIAL FULL PANEL Collected: 02/11/2018 Status: F Source: [facility] 2:30 PM HOSPITALS REPOSITORY TYPE CODE TESTS RESULT OUT OF REFERENCE UNITS RANGE LAB PHART(LOIN 7.38 - 7.42 C) pH High 7.43 LAB PCO2A(LOIN 38 - 42 mmHg C) PCO2 High 44 LAB PO2A(LOINC 85 - 95 mmHg ) PO2 95 LAB TEMP(LOINC degrees C ) PATIENT TEMPERATURE 37.0 Result Comment: NOTE: PATIENT RESULTS ARE NOT CORRECTED FOR TEMPERATURE. LAB SO2%A(LOINC) 94 - 100 % SO2 99 LAB HCTN(LOINC) 41.0 - % Low 52.0 HCT 39.0 LAB SODN(LOINC) 136 - 145 mmol/L Low SODIUM 127 LAB POTN(LOINC) 3.5 - 5.3 mmol/L POTASSIUM 4.8 LAB CHLN(LOINC) 98 - 107 mmol/L Low CHLORIDE 97 LAB IONCA(LOINC) 1.10 - mmol/L 1.33 CALCIUM,IONIZED 1.25 LAB GLUN(LOINC) 74 - 99 mg/dL GLUCOSE High 121 LAB LACTN(LOINC) 0.4 - 2.0 mmol/L LACTATE 0.7 LAB BSEXB(LOINC) -2.0 - 3.0 mmol/L BASE High EXCESS-BLOOD 4.2 LAB BICAR(LOINC) 22.0 - mmol/L 26.0 BICARB, High CALCULATED 29.2 LAB HGBNC(LOINC) 13.5 - g/dL Low 17.5 HGB,CALCULATED 13.3 LAB ANGPN(LOINC) 10 - 25 mmol/L Low ANION GAP 6 Performed By: #### AFPA3 #### [facility] [address] [place] [address] ARTERIAL FULL PANEL Collected: 02/11/2018 Status: F Source: [facility] 1:51 PM HOSPITALS REPOSITORY TYPE CODE TESTS RESULT OUT OF REFERENCE UNITS RANGE LAB PHART(LOIN 7.38 - 7.42 C) pH 7.39 LAB PCO2A(LOIN 38 - 42 mmHg C) PCO2 High 45 LAB PO2A(LOINC 85 - 95 mmHg ) PO2 High 163 LAB TEMP(LOINC degrees C ) PATIENT TEMPERATURE 37.0 Result Comment: NOTE: PATIENT RESULTS ARE NOT CORRECTED FOR TEMPERATURE. LAB SO2%A(LOINC) 94 - 100 % SO2 100 LAB HCTN(LOINC) 41.0 - % Low 52.0 HCT 35.0 LAB SODN(LOINC) 136 - 145 mmol/L Low SODIUM 131 LAB POTN(LOINC) 3.5 - 5.3 mmol/L POTASSIUM 4.0 LAB CHLN(LOINC) 98 - 107 mmol/L CHLORIDE 100 LAB IONCA(LOINC) 1.10 - mmol/L 1.33 CALCIUM,IONIZED 1.19 LAB GLUN(LOINC) 74 - 99 mg/dL GLUCOSE High 103 LAB LACTN(LOINC) 0.4 - 2.0 mmol/L LACTATE 1.3 LAB BSEXB(LOINC) -2.0 - 3.0 mmol/L BASE EXCESS-BLOOD 1.8 LAB BICAR(LOINC) 22.0 - mmol/L 26.0 BICARB, High CALCULATED 27.2 LAB HGBNC(LOINC) 13.5 - g/dL Low 17.5 HGB,CALCULATED 11.9 LAB ANGPN(LOINC) 10 - 25 mmol/L Low ANION GAP 8 Performed By: #### AFPA3 #### [facility] [address] [place] [address] GLUCOSE-POCT Collected: 02/11/2018 Status: F Source: [facility] 10:05 AM HOSPITALS REPOSITORY TYPE CODE TESTS RESULT OUT OF RANGE REFERENCE UNITS LAB GLUP(LOINC) 74 - 99 mg/dL High 123 GLUCOSE-POCT Performed By: #### GLUPO #### [facility] [address] [place] [address] PREOP CHECKLIST Observed: 02/11/2018 Status: UNK Source: [facility] 9:40 AM HOSPITALS REPOSITORY Preop Checklist: Preop Checklist: Arrival [id number] Arrival Time09:59 Procedure Typeleft craniotomy NPO [id number] 00:00 ID Band Onyes Allergy Bandyes Consent Signedyes H&P Completeyes Anesthesia Assessment Completedyes EKG Performednot ordered Chest X-Ray Performednot ordered SCD's Appliedsent to OR TIFFANY Hose Appliedyes Denturesnot applicable Prostheticsnot applicable Hearing Aidsnot applicable Valuables Securedleft in patient room Glasses / Contactsleft in patient room Bowel Prepno Cardiovascular Assessment: Apicalregular Extremitieswarm Respiratory Assessment: Respirationsunlabored regular Air Exchangeequal Breath Soundsclear Neurological Assessment: Level of Consciousnessalert, oriented Mobilitymoves all extremities Able to Express Selfyes Age Appropriateyes Emotional Statuscalm Preop Education: Pain Scales and Managementno Language / Communication: Language / CommunicationEnglish Electronic Signatures: Italia Browne (LEEROY) (Signed 11-Feb-2018 09:43) Authored: Preop Checklist Ángela Handy (RN) (Signed 11-Feb-2018 10:16) Authored: Preop Checklist Last Updated: 11-Feb-2018 10:16 by Ángela Handy (RN) DAILY PROGRESS Observed: 02/11/2018 Status: COMPLETED Source: UNIVERSITY NOTE-NEUROSURGERY 3:31 AM HOSPITALS REPOSITORY Service: Neurosurgery Subjective Data: DIPESH BERMUDEZ is a 67 year old Male who is Hospital Day # 2. 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 vMRI done plan OR today for resection Signature/Cosignature/Attestation: Attending AttestationI saw and evaluated the patient. I personally obtained the gonzalez and critical portions of the history and physical exam or was physically present for gonzalez and critical portions performed by the resident/fellow. I reviewed the resident/fellows documentation and discussed the patient with the resident/fellow. I agree with the resident/fellows medical decision making as documented in the residents note. I personally evaluated the patient (as noted in the above attestation) on 11-Feb-2018 Electronic Signatures: Augustine Cardoza) (Signed 11-Feb-2018 16:49) Authored: Signature/Cosignature/Attestation Co-Signer: Service, Subjective Data, Objective Data, Assessment and Plan, Signature/Cosignature/Attestation Norman Daniel (Resident)) (Signed 11-Feb-2018 05:53) Authored: Assessment and Plan Manoj Oviedo (Resident)) (Signed 11-Feb-2018 03:32) Authored: Service, Subjective Data, Objective Data, Assessment and Plan, Signature/Cosignature/Attestation Last Updated: 11-Feb-2018 16:49 by Augustine Cardoza) HISTORY AND PHYSICAL Observed: 02/11/2018 Status: COMPLETED Source: [facility] - SURGICAL UPDATE < 2:30 AM HOSPITALS REPOSITORY 30 DAYS History & Physical Reviewed: I have reviewed the History and Physical dated: 10-Feb-2018 History and Physical reviewed and relevant findings noted. Patient examined to review pertinent physical findings.: No significant changes Home Medications Reviewed: no changes noted Allergies Reviewed: no changes noted This patient has been seen and discussed with the attending physician responsible for performing the procedure: yes Signatures/Attestation/Certification: Attending AttestationI saw and evaluated the patient. I personally obtained the gonzalez and critical portions of the history and physical exam or was physically present for gonzalez and critical portions performed by the resident/fellow. I reviewed the resident/fellows documentation and discussed the patient with the resident/fellow. I agree with the resident/fellows medical decision making as documented in the residents note. I personally evaluated the patient (as noted in the above attestation) on 11-Feb-2018 Attending Provider Inpatient Certification StatementI certify this patients need for inpatient care based on the above documentation including; the order to admit as inpatient, the anticipated length of stay, diagnosis, problem list and plan of care, and discharge plan. Electronic Signatures: Augustine Cardoza) (Signed 11-Feb-2018 16:49) Authored: Signatures/Attestation/Certification Co-Signer: History & Physical Reviewed, Signatures/Attestation/Certification Pace, Manoj (MD (Resident)) (Signed 10-Feb-2018 20:31) Authored: History & Physical Reviewed, Signatures/Attestation/Certification Last Updated: 11-Feb-2018 16:49 by Augustine Cardoza) OPERATIVE REPORT Observed: 02/11/2018 Status: UNK Source: IDABEL 12:00 [place] [address] Patient Name: HARRY. Moshe BERMUDEZ : 1950 Date of Service: 02/11/2018 Patient Location: [facility] TNSU0 [id number] Patient Type: I Surgeon: Augustine Cardoza MD Report Type: Operative Reports PREOPERATIVE DIAGNOSIS: Posterior fossa cranial skull base tumor. POSTOPERATIVE DIAGNOSIS: Posterior fossa cranial skull base tumor. 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 SURGEON: Augustine Cardoza MD ROOF ASSEMBLER(S): 1. Yumiko Jorgensen. 2. Cheng Alcala MD ANESTHESIA: Plant. OPERATIVE NOTE: After the induction of anesthesia, lumbar drain catheter was placed in the L3-L4 interspace with spinal fluid obtained under normal pressure and allowed to drain intermittently throughout the operation. The patient was then placed laterally, head turned to the right. A left-sided vertical skin incision was made in the posterior fossa exposing retromastoid bone using stereotactic navigation. A high-speed drill craniectomy was then performed exposing posterior fossa dura. This was opened widely. The operative microscope was brought into position, careful dissection, the cerebellopontine angle was identified exposing a petroclival residual previously radiated meningioma. Internally debulking and gross total resection of obvious posterior fossa component of the tumor was accomplished without complication using stereotactic navigation, microdissection. The basilar artery was identified and carefully preserved. Following resection of the posterior fossa tumor, the wound was copiously irrigated. Hemostasis was excellent. Dural defect covered with synthetic dural graft, loosely approximated and synthetic dural sealant. Bony defect covered with titanium mesh, and the wound was closed using sutures. No complications. Augustine Cardoza MD EST TT: 02/12/2018 03:46 AM EST DICTATION NUMBER: [id number] LAURAIS JOB NUMBER: [id number] CC: Beatriz Hammer, Allie Parada MD, [id number] Christy Esquivel MD, Electronically Signed by Dr. Augustine Cardoza 02/16/2018 11:04:45 AM [facility] SURGICAL PATHOLOGY Observed: 02/11/2018 Status: F Source: [facility] DEPARTMENT 12:00 AM HOSPITALS REPOSITORY Name DIPESH BERMUDEZ Pathologist: Nora Moscoso MD, Ph.D. Date of Procedure: 02/11/2018 Date Received: 02/11/2018 Date Reported 03/11/2018 Submitting Physician: AUGUSTINE CARDOZA [facility] Other External # FINAL DIAGNOSIS BRAIN TUMOR, BIOPSY: --MENINGIOMA, WHO GRADE I Electronically Signed Out By Nora Moscoso MD, Ph.D./[facility] By the signature on this report, the individual or group listed as making the Final Interpretation/Diagnosis certifies that they have reviewed this case. Clinical History: Brain Mass Specimens Submitted As: A: BRAIN TUMOR Gross Description: Received fresh, labeled with the patient's name and hospital number, are multiple fragments of millard-red friable soft tissue aggregating to 1.2 x 0.4 x 0.4 cm. The specimen is submitted in toto in one cassette. TMS tms/02/11/2018 Performed By: #### [facility] #### [facility] Surgical Pathology Department [address] [facility] [address] GLUCOSE-POCT Collected: 02/10/2018 Status: F Source: [facility] 10:07 PM HOSPITALS REPOSITORY TYPE CODE TESTS RESULT OUT OF RANGE REFERENCE UNITS LAB GLUP(LOINC) 74 - 99 mg/dL High 214 GLUCOSE-POCT Performed By: #### GLUPO #### [facility] [address] [facility] [place] [address] NR MRI BRAIN W/WO Observed: 02/10/2018 Status: F Source: [facility] CONTRAST 9:35 PM HOSPITALS REPOSITORY Patient Name: DIPESH BERMUDEZ STUDY: MRI BRAIN W/WO CONTRAST; 02/10/2018 9:35 pm INDICATION: Signs/Symptoms: preop planning. COMPARISON: None. ACCESSION NUMBER(S): [id number] ORDERING CLINICIAN: KATY BALTAZAR TECHNIQUE: Axial T2, FLAIR, DWI, gradient echo T2 and sagittal and coronal T1 weighted images of brain were acquired. Post contrast T1 weighted images were acquired after administration of 20 mL gadolinium based intravenous contrast. FINDINGS: There are postoperative changes from prior left lateral craniotomy. There is similar appearance of T2 hyperintense signal in the left temporal lobe white matter, which may be treatment related. There is stable appearance of the previously seen mass located in the left retroclival/prepontine cistern, extending into the left Meckel's cave and cavernous sinus. There is similar appearance mass effect on the adjacent left ventral alejandra. This lesion abuts the basilar artery without significant luminal narrowing. The ventricles are nondilated. There is no evidence of intracranial hemorrhage or infarct. The paranasal sinuses and mastoid air cells are clear. IMPRESSION: 1. The previously demonstrated left parasellar meningioma is unchanged in size. There is unchanged nodule in the left prepontine space measuring approximately 1.5 cm in size. There is unchanged intracavernous component measuring 5 mm x 10 mm in size 2. There are no new or additional enhancing foci. I personally reviewed the images/study and I agree with the findings as stated. This study was interpreted at [facility], [place], [place]. Electronically signed by: JUDY NASSAR MD DISCHARGE PLANNING Observed: 02/10/2018 Status: UNK Source: UNIVERSITY NOTE 8:30 PM HOSPITALS REPOSITORY OB Information: Type of Financial/Environmental Concernno back-up generator Patient Learning: Factors that Impact Ability to Learnvisual problems(1) Other Factors: Functional Screen: In the recent/past 2-4 weeks, patient or family have noticedno issues that require a rehabilitation consult at this time(2) Discharge Needs: Anticipated Discharge Facility/Level of Care NeedsTo Cancer/Child Hosp Plan Readmit Discharge Planning: Discharge Planning: Prior to transfer to MICU, called and gave report to JANIYA Rollins in MICU. Team transferred patient, spoke with sister Isha in MICU. Deacon Roman RN and the team have been notified.Pt. admitted to LT4 Floor from IR, after Angio. Pt. plan to go to MRI tonight, O.R. For Meningioma Resection in the a.m. 02/11/18. Pt. States he lives with Niece and her children in a house. Pt. has wheelchair lift, uses wheelchair for long distances, otherwise up Ad chidi. Pt. states he has home health care. Pt. has powered wheelchair, clothing, glasses at bedside. States Main contact is Sister Nam at [phone]. No PT/OT orders at this time. Will continue to monitor for needs. Mery Su RN 02/11/18 1120 CARE COORDINATION - Attempted to assess patient but was unable as he was already down to OR. Waste Disposal Attendant will see at later time. Phoebe Bailey RN [id number]. 02/12/18 1030 Waste Disposal Attendant Note Spoke with NSGY Team regarding discharge planning. no plans for weekend DC, patient is now in NSU. CC will Attempt to meet. Bibiana Brown [place] Dis[phone] 02/13/18 Social Work Note 1600 SW met with this patient on this date to discuss discharge plan. PT recommend Acute Rehabilitation, patient is amenable and when medically ready is interested in discharging to [facility]. Patient reported that he has [employer] Insurance Coverage. Patient is a and resides with his niece and her children in a house located in [place], [place]. Patient reported being 100% independent with daily activities. CONST[facility]INO will send a referral on this date. MAGDY/Tam form started. Rayne BRANDT ([id number]) 02/14/18: [facility] and would like an update on patient's DC plan and DC date. We will call her closer to DC. Her # is [phone]. Advised Lore/ALEJANDRO that at this time patient is requesting [facility]. Also gave her Tony/CONSTANTINO's phone #. [place] continue [place] [phone] 02/15/18 8371 Nursing Discharge Planning Note Pt currently tele status. Need to reevaluate swallowing needs. Will discharge when medically stable. Unknown discharge date at this time Marilin Nguyen RN 02-15-18 14:21 Nursing Note: Spoke to Vinita Sheth who takes care of patients behavior health normally. She asked to be notified when patient is discharged so she can follow up with his care. Phone # Ex:[phone] Brooke Henriquez RN 03/02/18 Social Work Note 810 Spoke with financial counselor Andriy. Pt has active [employer] Medicare HMO policy #[id number]. Will need precert. 1100 Spoke with pt's nephew Kyle Plascencia [phone]. Family would like pt to go to [facility] in [place] for Rehab. Advised nephew that it does not appear pt is anywhere near ready for dc but I will send info to [facility]. Information sent to [facility] via [facility] and asked to verify if they are in network for [employer]. [facility] [employer] and pt does not have OON benefit. Updated pt's nephew. He inquired if pt has benefit through [place] to go to SNF or Acute Rehab. Spoke [place] at [place] transfer center. Pt is not seventy percent + service connected, therefore he does not have post acute SNF benefit. He could be eligible for their acute rehab, which is at [facility]. Updated nephew. He is not interested in acute rehab at [facility]. Will wait to see what PT and OT recommend (acute rehab vs SNF) closer to [place]. BRYANT Sandoval [id number] 03/04/18 Social Work Note Nurse reports pt is confused today. Team reports pt is being worked up for cdiff. Asked PT and OT to reassess acute rehab vs SNF. PT now recommending SNF. Left message pt's nephew Kyle Plascencia. Advised him rec is now SNF and advised him of medicare.gov website and encouraged him to look at options. BRYANT Sandoval [id number] 03/05/2018 1800 Transfer Patient transferred to [place] [address], 8050, for tele bed per Dr. Sanchez Order. 03/05/182034: Transfer: Patient transferred to [place] [address] from [place] [address] this evening. Placed on tele and vitals done. Bed alarm on for safety. Glasses on patient and blue book bag with him. Will continue to assess for discharge needs while in the hospital. Khadijah Steinberg RN 03/07/18 1:50pm SOCIAL WORK NOTE TAMALE MACHINE FEEDER called the patient's nephew Donta [phone] to discuss SNF options. TAMALE MACHINE FEEDER asked Donta if he had picked any SNFs. Donta reported that, due to the patient's status change, he had not had the chance to look over the list of facilities yet. TAMALE MACHINE FEEDER explained that she would give him a more detailed list of what the patient's insurance would actually be able to take. TAMALE MACHINE FEEDER will email the list to the patient's nephew. TAMALE MACHINE FEEDER will follow up as needed. VERONICA Simmons, TAMALE MACHINE FEEDER pager [phone] 03/09/18 3:56pm SOCIAL WORK NOTE TAMALE MACHINE FEEDER spoke with the patient on this date to discuss SNF placement. Patient's POA Donta reported that he just left a facility in [place] that he said was ok. Patient's POA reported that he would prefer the patient go to [facility] but he is unsure if they take the patient's insurance. TAMALE MACHINE FEEDER explained that she would send the information to both facilities and would let him know when she gets an answer. TAMALE MACHINE FEEDER spoke with the GROUP MANAGER this morning who reported that the patient is medically ready for discharge. TAMALE MACHINE FEEDER will follow up as needed. VERONICA Simmons, TAMALE MACHINE FEEDER pager [phone] 03/11/18 1:49pm SOCIAL WORK NOTE TAMALE MACHINE FEEDER spoke with the patient's POA Donta on this date to discuss d/c plans. TAMALE MACHINE FEEDER explained that [place] is able to accept and started precert. Patient's POA reported understanding. TAMALE MACHINE FEEDER sent [place] more updates. TAMALE MACHINE FEEDER spoke with the patient's GROUP MANAGER who reported that the patient is medically ready today. TAMALE MACHINE FEEDER will follow up as needed. VERONICA Simmons, TAMALE MACHINE FEEDER pager [phone] Transfer Note March 13, 2018 184 Pt. tranferred to MICU secondary to respiratory distress , sister Isha and Nephew Dipesh notified and on their way back to the hospital. , and NPO @ bedside. Pt. raf blue backpack taken to unit. Will transfer pt. mototrized scooter and glasses which was place in the basket of the scooter other belongs later. La Green RN 03/13/18: Nursing Note Prior to transfer to MICU, called and gave report to JANIYA Rollins in MICU. Team transferred patient, spoke with sister Isha in MICU. Deacon Roman RNuniversal grinder tool Note 11/5/184:20pm SW has spoken with anel Macias and provided facility lists for potential LTACH placement. Have reviewed the difference in LOC between SNF and LTACH. Referrals sent to preferred providers; Shireen Matos, Halina Farley and Shantanu Starks to review with his approval. No facility chosen as yet. Will update him on facility responses and continue to follow for any needed discharge planning assistance MOJGAN Cantor, METAL ENGINEERING PROCESS WORKER-S pager [phone] Social Work Note 03/23/18 10:35am Spoke with nephew last evening. He reported change in pt condition with possible return to MICU and need to revisit goals of care and plans of continued care. Offered support and encouraged him to contact SW for any issues or concerns that he would like to discuss SW will continue to follow MOJGAN Cantor, METAL ENGINEERING PROCESS WORKER-S pager [phone] Social Work Note 03/25/18 11:30am Spoke with POA/anel Macias on 03/24. He reported that they are no longer interested in pursuing LTACH and want pt transferred to the previously identified SNF, [facility] when he is stable and medically ready for discharge. He is aware that the facility will need to review updated information to determine if they are able to meet pt's needs Updates sent via [facility]. SW will continue to follow. MOJGAN Cantor, METAL ENGINEERING PROCESS WORKER-S pager [phone] Social Work Note 03/29/18 12:16pm Spoke with Pao in admissions at the facility ([phone]) re status. She indicated that precert has been initiated and will take several days to obtain. Discussed need for IPV treatments. She contacted their RT company who can only provide cough assist and would need to train facility staff prior to pt being admitted. This would not likely happen prior to Sunday 04/01. She further indicated that if cough assist was not adequate to meet pt's needs, then they would not be able to accept him. Updated HANDLE SANDER OPERATORCherelle who will f/u with attending for clarification. Will update facility with determination re cough assist SW was also informed that pt's [facility] Medicaid will term at end of month if redetermination is not completed. Will contact POA to inform SW will continue to follow. MOJGAN Cantor LISW-S pager [phone] Social Work Note 04/04/18 5:10pm late entry for 04/01/18 Decision was made to monitor pt over the weekend and discharge to SNF on 04/04 without cough assist or any other similar treatments if he was stable Facility was informed and indicated that they would be able to accept pt on 04/04. Spoke with HANDLE SANDER OPERATOR, Brittany this morning. She indicated that team is ready to discharge. Facility was informed. Unable to reach nephew, but did speak to his mother, pt's sister Nam who confirmed willy tfamily is all in agreement with this plan and are anxious to have pt closer to home. Adornments completed for transfer at via [facility]. Number fo report given to bedside nurse. 7000 form completed in [facility] and updates sent to facility. Informed pt's sister of need to complete Medicaid redetermination by end of month and provided number for Medicaid hotline. Will also inform facility No other SW needs at this time. buttermaker continuous churn plan will depend on progress at facility. Pt can remain for fci care or may be able to return home with waiver services. Per sister, pt had some services prior to admission but was only aware of case management and transportation MOJGAN Cantor, LEXI-S pager [phone] 04/04/2018: 6:20 pm Discharge note: Pt unable to fully comprehend discharge instructions. Report called to [facility], [facility] [phone]. Pt is not on Oxygen and has his peripheral IV Dc'd Pt belongings and discharge instructions will be sent with patient once transportation for the SNF arrives. Comfort DENSON Final Disposition/Discharge: Disposition/Discharge Information: Discharge/Transfer Information: Discharge/Transfer Date/[id number] 20:17 Discharge Modeambulatory Transportation Methodambulance Valuables/Medications/Belongings Returnedyes Belongings CommentPt electric wheelchair left behind. Ambulatory service personnel said they would put a rec in, charge nurse notified of situation. [place] will be notified in AM of situation if wheelchair was not yet picked up. [facility] Electronic Signatures: Deanne Hinton (METAL ENGINEERING PROCESS WORKER) (Signed 04-Apr-2018 17:54) Authored: Discharge Planning Note La Green (CN) (Signed 13-Mar-2018 21:08) Authored: Discharge Planning Note Brooke Henriquez (STAFF N) (Signed 15-Feb-2018 14:24) Authored: Discharge Planning Note Khadijah Steinberg (CN) (Signed 05-Mar-2018 20:42) Authored: Discharge Planning Note Althea Ordaz (SW) (Signed 11-Mar-2018 16:07) Authored: Discharge Planning Note Gillian Giordano (METAL ENGINEERING PROCESS WORKER-S) (Signed 04-Mar-2018 14:59) Authored: Discharge Planning Note Deacon Roman (CN) (Signed 13-Mar-2018 21:09) Authored: Discharge Planning Note Mery Su (RN) (Signed 10-Feb-2018 20:35) Authored: Discharge Planning Note Lucas Waddell (RN) (Signed 05-Apr-2018 03:47) Authored: Final Disposition/Discharge Anjali Saucedo (CLIN COOR) (Signed 14-Feb-2018 16:30) Authored: Discharge Planning Note Violette Zheng (CN) (Signed 05-Mar-2018 18:14) Authored: Discharge Planning Note Comfort Barba (RN) (Signed 04-Apr-2018 18:21) Authored: Discharge Planning Note Marilin Nguyen (RN) (Signed 15-Feb-2018 02:29) Authored: Discharge Planning Note Phoebe Bailey (CLIN COOR) (Signed 11-Feb-2018 14:18) Authored: Discharge Planning Note Bibiana Brown (RN) (Signed 12-Feb-2018 13:02) Authored: Discharge Planning Note Rayne Correa (SW) (Signed 13-Feb-2018 16:58) Authored: Discharge Planning Note Last Updated: 05-Apr-2018 03:47 by Lucas Waddell (RN) References: 1. Data Referenced From 5. Education 02/10/2018 7:41 PM 2. Data Referenced From Admission Risk Screen - Adult 02/10/2018 7:41 PM POCT CREATININE AND Collected: 02/10/2018 Status: F Source: [facility] GFR 8:23 PM HOSPITALS REPOSITORY TYPE CODE TESTS RESULT OUT OF REFERENCE UNITS RANGE LAB POCCR(LOIN 0.6 - 1.3 mg/dL C) CREATININE 1.2 LAB POGFR(LOIN >60 C) mL/min/1.73m2 POCT GFR >60 Result Comment: POCT eGFR is intended for Radiology screening purposes only. Performed By: #### PCRGF #### [facility] [address] [place] [address] URINALYSIS Collected: 02/10/2018 Status: F Source: [facility] 8:09 [facility] REPOSITORY TYPE CODE TESTS RESULT OUT OF RANGE REFERENCE UNITS LAB COLU(LOIN STRAW,YELLOW C) COLOR YELLOW LAB APPRU(SHAKEEL CLEAR NC) APPEARANCE CLEAR LAB SPGRU(SHAKEEL 1.005 - 1.035 NC) SPECIFIC GRAVITY 1.029 LAB CAMMY(LOINC 5.0 - 8.0 ) pH 5.0 LAB PROTU(SHAKEEL NEGATIVE mg/dL NC) PROTEIN Abnormal >=500 (3+) LAB GLUCU(SHAKEEL NEGATIVE mg/dL NC) GLUCOSE Abnormal 50 (TRACE) LAB BLDU(LOIN NEGATIVE C) BLOOD Abnormal MODERATE (2+) LAB KETU(LOIN NEGATIVE mg/dL C) KETONES NEGATIVE LAB BILIU(SHAKEEL NEGATIVE NC) BILIRUBIN NEGATIVE LAB UROU2(SHAKEEL 0.0 - 1.9 mg/dL NC) UROBILINOGEN <2.0 LAB NITRU(SHAKEEL NEGATIVE NC) NITRITE NEGATIVE LAB LEUKU(SHAKEEL NEGATIVE NC) LEUKOCYTE ESTERASE NEGATIVE Performed By: #### UA #### [facility] [address] [place] [id number] UA MICROSCOPIC Collected: 02/10/2018 Status: F Source: ID[facility] 8:[address] [place] [address] REPOSITORY TYPE CODE TESTS RESULT OUT OF RANGE REFERENCE UNITS LAB WBCUR(LOINC 0-5 /HPF ) WBC 1 LAB RBCUR(LOINC 0-5 /HPF ) Abnormal RBC 7 LAB MUCOU(LOINC /LPF ) MUCUS 1+ Performed By: #### UAMIC #### [facility] [address] [place] [address] CBC AND DIFFERENTIAL Collected: 02/10/2018 Status: F Source: [facility] 8:08 [facility] REPOSITORY TYPE CODE TESTS RESULT OUT OF REFERENCE UNITS RANGE LAB WBCR(LOINC 4.4 - 11.3 x10E9/L ) WBC High 12.8 LAB NRBC(LOINC 0.0-0.0 /100 WBC ) NUCLEATED RBC 0.0 LAB RBCCT(LOIN 4.50 - 5.90 x10E12/L C) RBC 5.39 LAB HGB(LOINC) 13.5 - 17.5 g/dL HGB 14.9 LAB HCT(LOINC) 41.0 - 52.0 % HCT 44.6 LAB MCV(LOINC) 80 - 100 fL MCV 83 LAB MCHC2(LOIN 32.0 - 36.0 g/dL C) MCHC 33.4 LAB PLTCT(LOIN 150 - 450 x10E9/L C) PLT 301 LAB RDWCV(LOIN 11.5 - 14.5 % C) RDW-CV 14.1 LAB NEUT(LOINC 40.0 - 80.0 % ) % NEUTROPHIL 71.9 LAB IG(LOINC) 0.0 - 0.9 % % AUTOMATED 0.5 IMMATURE GRAN Result Comment: Percent differential counts (%) should be interpreted in the context of the absolute cell counts (cells/L). LAB LYMPH(LOINC) 13.0 - % 44.0 % LYMPHOCYTE 19.1 LAB MONO(LOINC) 2.0 - 10.0 % % MONOCYTE 6.3 LAB EOS(LOINC) 0.0 - 6.0 % % EOSINOPHIL 1.6 LAB BASO(LOINC) 0.0 - 2.0 % % BASOPHIL 0.6 LAB #NEUT(LOINC) 1.20 - x10E9/L 7.70 NEUTROPHIL High 9.19 LAB #LYMP(LOINC) 1.20 - x10E9/L 4.80 LYMPHOCYTE 2.45 LAB #MONO(LOINC) 0.10 - x10E9/L 1.00 MONOCYTE 0.81 LAB #EOS(LOINC) 0.00 - x10E9/L 0.70 EOSINOPHIL 0.20 LAB #BASO(LOINC) 0.00 - x10E9/L 0.10 BASOPHIL 0.08 Performed By: #### CBCDF #### [facility] [address] [place] [address] COAGULATION SCREEN Collected: 02/10/2018 Status: F Source: [facility] 8:08 PM HOSPITALS REPOSITORY TYPE CODE TESTS RESULT OUT OF REFERENCE UNITS RANGE LAB PT(LOINC) 9.8 - 12.7 sec PROTHROMBIN TIME 10.9 LAB INR(LOINC) 0.9 - 1.1 PT, INR 1.0 LAB APTT(LOINC 25 - 36 sec ) APTT 32 Result Comment: THE APTT IS NO LONGER USED FOR MONITORING UNFRACTIONATED HEPARIN THERAPY. FOR MONITORING HEPARIN THERAPY, USE THE HEPARIN ASSAY. Performed By: #### COAGS #### [facility] [address] [place] [address] RENAL FUNCTION PANEL Collected: 02/10/2018 Status: F Source: [place] 8:08 [facility] REPOSITORY TYPE CODE TESTS RESULT OUT OF REFERENCE UNITS RANGE LAB GLU(LOINC) 74 - 99 mg/dL GLUCOSE High 143 LAB SOD(LOINC) 136 - 145 mmol/L Low SODIUM 134 LAB K(LOINC) 3.5 - 5.3 mmol/L POTASSIUM 4.5 LAB CHLOR(LOIN 98 - 107 mmol/L C) CHLORIDE 98 LAB BIC(LOINC) 21 - 32 mmol/L BICARBONATE 27 LAB ANGAP(LOIN 10 - 20 mmol/L C) ANION GAP 14 LAB UREA(LOINC 6 - 23 mg/dL ) UREA NITROGEN 13 LAB CREA(LOINC 0.50 - 1.30 mg/dL ) CREATININE 1.09 LAB GFRFN(LOIN >60 mL/min/1.7 C) 3m2 GFR-NON AM. >60 LAB GFRAA(LOIN >60 mL/min/1.7 C) 3m2 GFR- AM. >60 Result Comment: CALCULATIONS OF ESTIMATED GFR ARE PERFORMED USING THE MDRD STUDY EQUATION FOR THE IDMS-TRACEABLE CREATININE METHODS. CLIN CHEM 2007;53:766-72 LAB CA(LOINC) 8.6 - 10.6 mg/dL CALCIUM 9.7 LAB PHOS(LOINC) 2.5 - 4.9 mg/dL PHOSPHORUS 3.6 Result Comment: The performance characteristics of phosphorus testing in heparinized plasma have been validated by the individual laboratory site where testing is performed. Testing on heparinized plasma is not approved by the FDA; however, such approval is not necessary. LAB ALB(LOINC) 3.4 - 5.0 g/dL ALBUMIN 3.4 Performed By: #### RENAL #### [facility] [address] [place] [address] HEMOGLOBIN A1C Collected: 02/10/2018 Status: F Source: [place] 8:08 [facility] REPOSITORY TYPE CODE TESTS RESULT OUT OF RANGE REFERENCE UNITS LAB HBA1C(LOINC % ) HGB A1C 7.6 Result Comment: Diagnosis of Diabetes-Adults Non-Diabetic: < or = 5.6% Increased risk for developing diabetes: 5.7-6.4% Diagnostic of diabetes: > or = 6.5% . Monitoring of Diabetes Age (y) Therapeutic Goal (%) Adults: >18 <7.0 Pediatrics: 13-18 <7.5 7-12 <8.0 0- 6 7.5-8.5 [place] [employer]. Diabetes Care 33(S1), May 2009. LAB ESAVG(LOINC) MG/DL EST.AVG.GLUCOSE 171 Performed By: #### HBA1E #### [facility] [address] [place] [address] TYPE + SCREEN Collected: 02/10/2018 Status: F Source: [facility] 8:08 PM HOSPITALS REPOSITORY TYPE CODE TESTS RESULT OUT OF REFERENCE UNITS RANGE LAB ABORH(LOINC ) ABO TYPE O LAB RH(LOINC) RH TYPE NEG LAB ABSC(LOINC) ANTIBODY NEG SCREEN Performed By: #### T+S #### [facility] [address] [place] [address] PATIENT PROFILE - Observed: 02/10/2018 Status: UNK Source: [facility] ADULT V2 7:45 PM HOSPITALS REPOSITORY Profile: Initial Info: How to be AddressedHarry Spoken Language PreferredEnglish Source of Informationpatient Are you currently using the Personal Electronic Health Record or WePowFAIRFIELD MEDICAL CENTERno Are you interested in learning more about [facility] for the management of your healthdeclined Stated Reason for AdmissionMass in my head Arrived Fromhospital Patient Belongingsremains with patient Patient Belongings Remaining with Patientclothing; medical/assistive equipment; vision aids Medications Brought to Hospitalno General Health: Weight in kg99.7 kilogram(s) Weight in uvq133.8 pound(s) Height in cm175.2 centimeter(s) BMI (kg/m2)32.48 square meter Weight Methodactual (measured) Scale Typestanding Height Methodstated Sleep Aids/Routinemedication; relaxation/quiet time RSP Based Care: How would you like to participate in your careparticipate in ADL's What is the number one concern for you during this hospitalizationto get better What is the most important thing we can do to support you during this hospitalizationupdate me on my plan of care Is there anything we need to know to best care for youno Substance: Current or Former Substance Use never: e-Cigarette/Vaping, Street Drugs YES: Cigarette/Tobacco, Alcohol Tobacco Cessation Education (provide if tobacco use within the last 12 mos) patient declined Alcohol Use Statuspast alcohol Health Mgmt: Symptoms/Conditions Managed at Homecardiovascular; endocrine Cardiovascular Symptoms/Conditionshypertension Cardiovascular Management Strategiesmedication therapy Cardiovascular Managementnot managed Endocrine Management Strategiesmedication therapy; insulin therapy; blood glucose testing Blood Glucose Testingbefore meals and at bedtime Endocrine Managementmanaged Barriers to Managing Healthunderstanding health advice; stress of chronic illness Endocrine Symptoms/Conditionsdiabetes Relationship/Environ: Primary Source of Support/Comfortfriend; extended family Lives Withother relative(s) Living Arrangementshouse Resource/Environmental Concernsnone [place]tic[place]ated [place] [facility] Significant IndicatorsComplete Information Review: Allergies, Home Meds and Significant Events have been Reviewed and Verified with Patient/Familyyes ALLERGY, INTOLERANCE, ADVERSE EVENT: Allergies: Codeine Sulfate: Drug, Unknown, Active penicillin: Drug, Unknown, Active insulin: Drug, Unknown, Active Intolerances: Aspir 81: Drug, GI Upset, Active Electronic Signatures: Mery Su (RN) (Signed 10-Feb-2018 19:51) Authored: Profile, Additional Information Last Updated: 06-Mar-2018 10:56 by La Green (LEEROY) ADMISSION RISK SCREEN Observed: 02/10/2018 Status: UNK Source: [facility] - ADULT 7:41 PM HOSPITALS REPOSITORY Allergies: Allergies: Codeine Sulfate: Unknown penicillin: Unknown insulin: Unknown Intolerances: Aspir 81: GI Upset Patient Verification: New W ID Band Applied in my Departmentyes Patient Identity Verified Bypatient ID Band FULL Name, include Middle, spelling matches patient's ID used for verificationyes ID Band Matches Patient ID used for Verficationyes ID Band MRN Matches EMR MRNyes Advance Directive: Advance Directive Medicalyes Advance Directive typeDurable Power of Metal Mover for Healthcare Durable Power of Metal Mover AvailabilityDPOA not available now Durable Power of Metal Mover [id number] Durable Power of Metal Mover contact (name and number)Colleen Acosta- [phone] Falls Screen: Type of Assessmentadmission Moderate Risk Factorspatient care equipment (scds, ivs, chest tubes, flynn, etc), sensory deficits High Risk Factorsgait instability, symptoms due to meds (sedatives, hypnotics, new diuretics and new laxatives) Risk for Injury Associated with Fallnone Fall Risk Conclusionhigh falls risk with low risk for associated injury [place] Safety InterventionsWDL *orient to call system *instruct to call for assistance before getting out of bed *non-slip footwear when patient is out of bed *call kam in reach *personal items and telephone in reach *physically safe environment (no spills or clutter) *bed in lowest position with wheels locked *appropriate side rails in place *room/bathroom lighting operational, light cord in reach *appropriate signage on door Fall and Injury Risk Interventionssupervised toileting (mandatory for all high risk patients), exit (bed/chair) alarms (mandatory for all high risk patients), collaborate with team for PT/OT consult/ambulatory aids, educate pt/family, if orthostatic, encourage patient to sit on the edge of the bed before standing, educate patient/family for risk for injury (fractures and bleeding), do not leave patient unattended while in the bathroom Family Violence Screen: Are you or have you been threatened or abused physically, emotionally, or sexually by anyoneno Do you feel UNSAFE going back to the place where you are livingno Clinical assessment: Are there any apparent signs of injuries/behaviors that could be related to abuse/neglectno Social Service Consult for abuse/neglect needed this visitno Functional screen: Functional Screen: In the recent/past 2-4 weeks, patient or family have noticedno issues that require a rehabilitation consult at this time Learning Assessment (Patient): Patient is Able to be Assessed for Learningyes Factors Influencing Readiness to Learninterest in learning; motivation to learn Factors that Impact Ability to Learnvisual problems Devices/Methods Used to Communicatenone Learning Preferencesverbal instruction; video Cultural Considerationsnone Developmental Considerationsnone Quaker Considerationsnone Learning Assessment (Other Learner): Other learner availableno Suicide/Depression Screen: During the past month, have you often been bothered by feeling down, depressed or hopelessno During the past month, have you often had little interest or pleasure in doing thingsno Have you had any thoughts of harming yourselfno Have you had any thoughts of harming anyone elseno Adult Nutrition Screen: Have you recently lost weight without tryingno Have you been eating poorly because of a decreased appetiteno MST Score0 RiskMST = 0 or 1 Not at risk. Eating well with little or no weight loss Nutrition Consult needed this visitno Can Patient Participate in Room Serviceyes Patient requires Paper Dishes/Plastic Utensilsno Pain Screen: Pain Scalenumerical 0-10 Pain Scale Educationteaching provided Current Pain Level0 = None Acceptable Pain Level4 = Moderate Expression of Pain (nonverbal)grimace, verbalization Chronic Painno Spiritual Screen: Are there any cultural, spiritual, voodoo practices/values/needs that are important for us to knowno CAGE: Is this an injured patient at a Trauma Center ([facility]): no Vaccinations: Vaccination - Influenza Vaccination Screen: Is it flu season (between and )Yes Screening for identified contraindications to influenza vaccinationpatient already received vaccine this season Vaccination - Pneumonia Vaccination Screen: Patient has received a previous pneumonia vaccine:yes Rikki: Skin - Rikki Scale: Rikki: Sensory Perception (response to environment)(3) slightly limited Rikki: Moisture (degree skin exposed to moisture)(4) rarely moist Rikki: Activity (ability to walk)(3) walks occasionally Rikki: Mobility (amount/control of body movement)(3) slightly limited Rikki: Nutrition (quality of food intake)(2) probably inadequate Rikki: Friction and Shear(3) no apparent problem Rikki: Score18 Skin Intervention Orders (Nursing orders will be generated)elevate heels, up in chair < 1 hr intervals, turn side to side every 2 hrs, assess for therapeutic equipment, assess pressure points, hygiene care, toilet/ADL every 2 hrs awake, toilet/ADL every 4 hrs asleep, educate prevent/treat pressure ulcer Significant Indicatiors: Significant Indicators: Complete Pressure Injury: Pressure Injury Present on Admissionno Electronic Signatures: Mery Su (JANIYA) (Signed 10-Feb-2018 19:45) Authored: Admission Risk Screens, Vaccinations, Rikki, Pressure Injury Last Updated: 10-Feb-2018 19:45 by Mery Su (JANIYA) CHEST 1 VIEW Observed: 02/10/2018 Status: F Source: [facility] 5:35 PM HOSPITALS REPOSITORY Patient Name: DIPESH BERMUDEZ STUDY: TH CHEST 1 VIEW; 02/10/2018 5:35 pm INDICATION: Signs/Symptoms: prepo. COMPARISON: None. ACCESSION NUMBER(S): [id number] ORDERING CLINICIAN: KATY BALTAZAR FINDINGS: CARDIOMEDIASTINAL SILHOUETTE: Cardiac silhouette size is slightly prominent. LUNGS: There is a small left-sided pleural effusion. Left basilar atelectasis. There is no sizable pneumothorax. ABDOMEN: No remarkable upper abdominal findings. BONES: No acute osseous changes. IMPRESSION: 1. Slightly prominent/enlarged cardiac silhouette size. 2. Small left-sided pleural effusion with left basilar atelectasis. I personally reviewed the images/study and I agree with the findings as stated. This study was interpreted at [facility], [place], [place]. Electronically signed by: FADIA WEI MD HISTORY AND PHYSICAL - Observed: 02/10/2018 Status: COMPLETED Source: [facility] NEURO-SURGERY 4:50 PM HOSPITALS REPOSITORY History of Present Illness: Service: Service: Surgery History Present Illness: Admission Reason: Intracranial Mass HPI: 67 year old man with a history of HTN and DM and previous craniotomy with resection of an intracranial mass in 2013 (done at [facility]) who presents for admission for resection of enlarging residual mass. He was seen in clinic with Dr. Parada, where he noted to have more persistent and worsening double vision along with an unsteady gait. He states he had a previous resection (planned subtotal) done in 2013. He denies any changes to his strength, sensation, or visual acuity. Recent imaging demonstrates interval enlargement of his known residual mass, which was proven to be a meningioma. After discussion, he was recommended to go for surgical resection, which he has agreed upon given his symptoms and knowing the potential risks and benefits of surgery. Today, he underwent a cerebral angiogram for a possible preoperative embolization; however, there were no suitable embolization targets identified on angiogram. PMH: DM HTN meningioma PSH: craniotomy 2014 Home Meds: Insulin metformin amlodipine lisinopril FH: not h/o brain masses Social: everyday smoker 14 point ROS negative unless specified otherwise in above hpi. Comorbidities: Comorbid Conditionsdiabetes, hypertension Diabtetes TypeType 2 Insulin Dependentyes DM Acuity or Statusunknown DM Complicationsunknown Allergies: Codeine Sulfate: Unknown penicillin: Unknown insulin: Unknown Intolerances: Aspir 81: GI Upset Objective Information: Objective Information: T PRBPSpO2 [id number]/9596% Date/Time02/11 5: 5: 5: 5: 5:36 Range(36.1C - 36.8C ) (60 - 82 ) (18 - 18 ) (145 - 194 )/ (74 - 97 ) (93% - 99% ) Physical Exam: Constitutional: Well developed, awake/alert/oriented x3, no distress, alert and cooperative Eyes: anicteric sclera ENMT: MMM Head/Neck: nc/at, incisions well healed Respiratory/Thorax: equal chest rise on respirations Cardiovascular: RRR on monitor Gastrointestinal: soft, NT, ND Extremities: wwp Neurological: AOx3, fluent speech PERRL, mild abduction palsy OS, TML, mild left nasolabial flattening Strength 5/5 x 4 No drift No clonus SILT Psychological: Appropriate mood and behavior Skin: warm and dry Assessment and Plan: Problem List: Additional Dx: skilled nursing current use of insulin: Type 2 diabetes mellitus: Meningioma: Assessment: 67 year old man with HTN and DM with previous meningioma resection now found to have enlargement of the residual mass with worsening diplopia and unsteady gait. Preoperative angiogram with any target for embolization. - Admit to neurosurgical floor - Plan for resection 02/11/18 - continue home meds and insulin; hold Lisinopril until post-op - preop labs and studies - SCD, TIFFANY for DVT; plan to start chemoppx on POD#2 Signatures/Attestation/Certification: Attending AttestationI saw and evaluated the patient. I personally obtained the gonzalez and critical portions of the history and physical exam or was physically present for gonzalez and critical portions performed by the resident/fellow. I reviewed the resident/fellows documentation and discussed the patient with the resident/fellow. I agree with the resident/fellows medical decision making as documented in the residents note. I personally evaluated the patient (as noted in the above attestation) on 10-Feb-2018 Attending Provider Inpatient Certification StatementI certify this patients need for inpatient care based on the above documentation including; the order to admit as inpatient, the anticipated length of stay, diagnosis, problem list and plan of care, and discharge plan. Electronic Signatures: Allei Parada) (Signed 13-Feb-2018 15:11) Authored: Signatures/Attestation/Certification Co-Signer: History of Present Illness, Comorbidities, Allergies, Objective, Assessment and Plan, Signatures/Attestation/Certification Fritz Duarte (Resident)) (Signed 11-Feb-2018 08:51) Authored: History of Present Illness, Comorbidities, Allergies, Objective, Assessment and Plan, Signatures/Attestation/Certification Last Updated: 13-Feb-2018 15:11 by Allie Parada) REQUEST-LEUKOREDUCED RED CELLS Collected: Status: F Source: [facility] 02/10/2018 4:33 PM HOSPITALS REPOSITORY TYPE CODE TESTS RESULT OUT OF RANGE REFERENCE UNITS LAB [facility](LOINC) ORDER RECD REQUEST-LEUK OREDUCED RED CELLS Performed By: #### [facility] #### [facility] [id number] [place] [address] HISTORY AND PHYSICAL - Observed: 02/10/2018 Status: COMPLETED Source: [facility] NEURO-SURGERY 1:20 PM HOSPITALS REPOSITORY History of Present Illness: Service: Service: Surgery History Present Illness: Admission Reason: Intracranial Mass HPI: 67 year old man with a history of HTN and DM and previous craniotomy with resection of an intracranial mass in 2013 (done at [facility]) who presents for admission for resection of enlarging residual mass. He was seen in clinic with Dr. Parada, where he noted to have more persistent and worsening double vision along with an unsteady gait. He states he had a previous resection (planned subtotal) done in 2013. He denies any changes to his strength, sensation, or visual acuity. Recent imaging demonstrates interval enlargement of his known residual mass, which was proven to be a meningioma. After discussion, he was recommended to go for surgical resection, which he has agreed upon given his symptoms and knowing the potential risks and benefits of surgery. Today, he underwent a cerebral angiogram for a possible preoperative embolization; however, there were no suitable embolization targets identified on angiogram. PMH: DM HTN meningioma PSH: craniotomy 2014 Home Meds: Insulin metformin amlodipine lisinopril FH: not h/o brain masses Social: everyday smoker 14 point ROS negative unless specified otherwise in above hpi. Comorbidities: Comorbid Conditionsdiabetes, hypertension Diabtetes TypeType 2 Insulin Dependentyes DM Acuity or Statusunknown DM Complicationsunknown Allergies: Codeine Sulfate: Unknown penicillin: Unknown insulin: Unknown Intolerances: Aspir 81: GI Upset Physical Exam: Constitutional: Well developed, awake/alert/oriented x3, no distress, alert and cooperative Eyes: anicteric sclera ENMT: MMM Head/Neck: nc/at, incisions well healed Respiratory/Thorax: equal chest rise on respirations Cardiovascular: RRR on monitor Gastrointestinal: soft, NT, ND Extremities: wwp Neurological: AOx3, fluent speech PERRL, mild abduction palsy OS, TML, mild left nasolabial flattening Strength 5/5 x 4 No drift No clonus SILT Psychological: Appropriate mood and behavior Skin: warm and dry Assessment and Plan: Assessment: 67 year old man with HTN and DM with previous meningioma resection now found to have enlargement of the residual mass with worsening diplopia and unsteady gait. Preoperative angiogram with any target for embolization. - Admit to neurosurgical floor - Plan for resection 02/11/18 - continue home meds and insulin; hold Lisinopril until post-op - preop labs and studies - SCD, TIFFANY for DVT; plan to start chemoppx on POD#2 Signatures/Attestation/Certification: Attending AttestationI saw and evaluated the patient. I personally obtained the gonzalez and critical portions of the history and physical exam or was physically present for gonzalez and critical portions performed by the resident/fellow. I reviewed the resident/fellows documentation and discussed the patient with the resident/fellow. I agree with the resident/fellows medical decision making as documented in the resident/fellows note with the exception/addition of the following: I personally evaluated the patient (as noted in the above attestation) on 10-Feb-2018 Comments/ Additional Findings I admitted this patient for pre-op embo and surgery. There were no targets for embolization and no embolization was performed and patient remains at baseline neurolgical function. However, due to trauma and admissions who need urgent surgery. I am unable to perform surgery till Wednesday 02/14. I discussed this with the patient and offered that one of my colleagues, Dr. Cardoza would be able to perform the surgery. He agreed to this and expressed his wish to proceed on 02/11 as planned switching to Dr. Cardoza as his attending surgeon. He later told me that he had met with Dr. Ferguson and agreed to proceed. Attending Provider Inpatient Certification StatementI certify this patients need for inpatient care based on the above documentation including; the order to admit as inpatient, the anticipated length of stay, diagnosis, problem list and plan of care, and discharge plan. Electronic Signatures: Allie Parada) (Signed 13-Feb-2018 15:28) Authored: Signatures/Attestation/Certification Co-Signer: History of Present Illness, Comorbidities, Allergies, Objective, Assessment and Plan, Signatures/Attestation/Certification Fritz Duarte (Resident)) (Signed 10-Feb-2018 13:31) Authored: History of Present Illness, Comorbidities, Allergies, Objective, Assessment and Plan, Signatures/Attestation/Certification Last Updated: 13-Feb-2018 15:28 by Allie Parada) SELECTIVE CATHETER Observed: 02/10/2018 Status: F Source: [facility]ACEMENT,INTERNAL CAROTID 10:36 AM HOSPITALS REPOSITORY ARTERY,UNILATERAL Patient Name: DIPESH BERMUDEZ STUDY: SELECTIVE CATHETER PLACEMENT,INTERNAL CAROTID ARTERY,UNILATERAL; EXT-ART/UNI-A; SELECTIVE CATHETER PLACEMENT,EXTERNAL CAROTID ARTERY,UNILATERAL; EXT/UNI; 02/10/2018 10:36 am INDICATION: 67-year-old patient with 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 Angiogram for preoperative planning COMPARISON: MRI brain dated 11/15/2017 ACCESSION NUMBER(S): [id number]; [id number]; [id number]; [id number] ORDERING CLINICIAN: ALLIE PARADA TECHNIQUE: Following discussion of risks and benefits and alternatives, informed consent for these procedures was obtained from the patient. The patient was monitored throughout for EKG, blood pressure, and pulse oximetry. Moderate sedation services (supervision of administration, induction, and maintenance) were provided by the physician performing the procedure with intravenous fentanyl and versed for 40 minutes. The physician was assisted by an independent trained observer in the continuous monitoring of patient level of consciousness and physiologic status. There were no apparent sedation complications. Total fluoroscopy time was 12.7 minutes. Approximately 35 ML Optiray 320 contrast was employed. Using Seldinger technique and a right common femoral approach a 5 Armenian sheath was placed. Next a 5 Armenian MCS catheter was used for selective injections of the following arteries: 1. Left internal carotid artery 2. Left external carotid artery 3. Right common femoral artery The catheter and then the sheath were removed. Hemostasis was obtained with hand compression following placement of Angio-Seal device. The patient was taken to a hospital bed for routine post procedure observation and care. There were no apparent complications. FINDINGS: LEFT INTERNAL CAROTID ARTERY INJECTIONS: DSA runs were obtained over the head in PA, lateral, and oblique views. The distal cervical and intracranial left internal carotid artery opacify well and appear unremarkable. The left internal carotid artery bifurcates normally into widely patent and unremarkable left anterior cerebral and left middle cerebral arteries. There is flash filling of the anterior communicating artery. Tiny vessels are seen arising from the left cavernous ICA, likely leading into the left retro clival/left cavernous sinus mass and giving rise to a minimal tumor blush. However, no definite target for embolization was identified. No aneurysm, early draining vein, or stenosis is seen. LEFT EXTERNAL CAROTID ARTERY INJECTION: DSA runs were obtained over the head in PA and lateral views. There is good opacification of the branches of the left external carotid artery. However, there is no evidence of abnormal vessels arising from the left ECA branches and supplying the left retro clival/cavernous sinus mass. RIGHT COMMON FEMORAL ARTERY INJECTION: DSA run over the right hip was obtained in MAURER view. The right common femoral artery, femoral bifurcation, and distal vasculature opacify well appear unremarkable. There is no evidence of pseudoaneurysm, stenosis, dissection, or other type of vascular injury. IMPRESSION: 1. Tiny vessels arising from the left cavernous ICA and likely supplying the left intracranial/cavernous sinus mass with minimal tumor blush. No definite target for embolization was identified. 2. No evidence of abnormal blood supply to the left intracranial mass from the left ECA branches. I was present for and/or performed the critical portions of the procedure and immediately available throughout the entire procedure. I personally reviewed the image(s) / study and fellow (Dr Erika Gamino) interpretation. I agree with the findings as stated. This study was interpreted at [facility]. 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 Angiogram for preoperative planning COMPARISON: MRI brain dated 11/15/2017 ACCESSION NUMBER(S): [id number]; [id number]; [id number]; [id number] ORDERING CLINICIAN: ALLIE PARADA TECHNIQUE: Following discussion of risks and benefits and alternatives, informed consent for these procedures was obtained from the patient. The patient was monitored throughout for EKG, blood pressure, and pulse oximetry. Moderate sedation services (supervision of administration, induction, and maintenance) were provided by the physician performing the procedure with intravenous fentanyl and versed for 40 minutes. The physician was assisted by an independent trained observer in the continuous monitoring of patient level of consciousness and physiologic status. There were no apparent sedation complications. Total fluoroscopy time was 12.7 minutes. Approximately 35 ML Optiray 320 contrast was employed. Using Seldinger technique and a right common femoral approach a 5 Armenian sheath was placed. Next a 5 Armenian MCS catheter was used for selective injections of the following arteries: 1. Left internal carotid artery 2. Left external carotid artery 3. Right common femoral artery The catheter and then the sheath were removed. Hemostasis was obtained with hand compression following placement of Angio-Seal device. The patient was taken to a hospital bed for routine post procedure observation and care. There were no apparent complications. FINDINGS: LEFT INTERNAL CAROTID ARTERY INJECTIONS: DSA runs were obtained over the head in PA, lateral, and oblique views. The distal cervical and intracranial left internal carotid artery opacify well and appear unremarkable. The left internal carotid artery bifurcates normally into widely patent and unremarkable left anterior cerebral and left middle cerebral arteries. There is flash filling of the anterior communicating artery. Tiny vessels are seen arising from the left cavernous ICA, likely leading into the left retro clival/left cavernous sinus mass and giving rise to a minimal tumor blush. However, no definite target for embolization was identified. No aneurysm, early draining vein, or stenosis is seen. LEFT EXTERNAL CAROTID ARTERY INJECTION: DSA runs were obtained over the head in PA and lateral views. There is good opacification of the branches of the left external carotid artery. However, there is no evidence of abnormal vessels arising from the left ECA branches and supplying the left retro clival/cavernous sinus mass. RIGHT COMMON FEMORAL ARTERY INJECTION: DSA run over the right hip was obtained in MAURER view. The right common femoral artery, femoral bifurcation, and distal vasculature opacify well appear unremarkable. There is no evidence of pseudoaneurysm, stenosis, dissection, or other type of vascular injury. IMPRESSION: 1. Tiny vessels arising from the left cavernous ICA and likely supplying the left intracranial/cavernous sinus mass with minimal tumor blush. No definite target for embolization was identified. 2. No evidence of abnormal blood supply to the left intracranial mass from the left ECA branches. I was present for and/or performed the critical portions of the procedure and immediately available throughout the entire procedure. I personally reviewed the image(s) / study and fellow (Dr Erika Gamino) interpretation. I agree with the findings as stated. This study was interpreted at [facility]. 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 Angiogram for preoperative planning COMPARISON: MRI brain dated 11/15/2017 ACCESSION NUMBER(S): [id number]; [id number]; [id number]; [id number] ORDERING CLINICIAN: ALLIE PARADA TECHNIQUE: Following discussion of risks and benefits and alternatives, informed consent for these procedures was obtained from the patient. The patient was monitored throughout for EKG, blood pressure, and pulse oximetry. Moderate sedation services (supervision of administration, induction, and maintenance) were provided by the physician performing the procedure with intravenous fentanyl and versed for 40 minutes. The physician was assisted by an independent trained observer in the continuous monitoring of patient level of consciousness and physiologic status. There were no apparent sedation complications. Total fluoroscopy time was 12.7 minutes. Approximately 35 ML Optiray 320 contrast was employed. Using Seldinger technique and a right common femoral approach a 5 Armenian sheath was placed. Next a 5 Armenian MCS catheter was used for selective injections of the following arteries: 1. Left internal carotid artery 2. Left external carotid artery 3. Right common femoral artery The catheter and then the sheath were removed. Hemostasis was obtained with hand compression following placement of Angio-Seal device. The patient was taken to a hospital bed for routine post procedure observation and care. There were no apparent complications. FINDINGS: LEFT INTERNAL CAROTID ARTERY INJECTIONS: DSA runs were obtained over the head in PA, lateral, and oblique views. The distal cervical and intracranial left internal carotid artery opacify well and appear unremarkable. The left internal carotid artery bifurcates normally into widely patent and unremarkable left anterior cerebral and left middle cerebral arteries. There is flash filling of the anterior communicating artery. Tiny vessels are seen arising from the left cavernous ICA, likely leading into the left retro clival/left cavernous sinus mass and giving rise to a minimal tumor blush. However, no definite target for embolization was identified. No aneurysm, early draining vein, or stenosis is seen. LEFT EXTERNAL CAROTID ARTERY INJECTION: DSA runs were obtained over the head in PA and lateral views. There is good opacification of the branches of the left external carotid artery. However, there is no evidence of abnormal vessels arising from the left ECA branches and supplying the left retro clival/cavernous sinus mass. RIGHT COMMON FEMORAL ARTERY INJECTION: DSA run over the right hip was obtained in MAURER view. The right common femoral artery, femoral bifurcation, and distal vasculature opacify well appear unremarkable. There is no evidence of pseudoaneurysm, stenosis, dissection, or other type of vascular injury. IMPRESSION: 1. Tiny vessels arising from the left cavernous ICA and likely supplying the left intracranial/cavernous sinus mass with minimal tumor blush. No definite target for embolization was identified. 2. No evidence of abnormal blood supply to the left intracranial mass from the left ECA branches. I was present for and/or performed the critical portions of the procedure and immediately available throughout the entire procedure. I personally reviewed the image(s) / study and fellow (Dr Erika Gamino) interpretation. I agree with the findings as stated. This study was interpreted at [facility]. 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 Angiogram for preoperative planning COMPARISON: MRI brain dated 11/15/2017 ACCESSION NUMBER(S): [id number]; [id number]; [id number]; [id number] ORDERING CLINICIAN: ALLIE PARADA TECHNIQUE: Following discussion of risks and benefits and alternatives, informed consent for these procedures was obtained from the patient. The patient was monitored throughout for EKG, blood pressure, and pulse oximetry. Moderate sedation services (supervision of administration, induction, and maintenance) were provided by the physician performing the procedure with intravenous fentanyl and versed for 40 minutes. The physician was assisted by an independent trained observer in the continuous monitoring of patient level of consciousness and physiologic status. There were no apparent sedation complications. Total fluoroscopy time was 12.7 minutes. Approximately 35 ML Optiray 320 contrast was employed. Using Seldinger technique and a right common femoral approach a 5 Armenian sheath was placed. Next a 5 Armenian MCS catheter was used for selective injections of the following arteries: 1. Left internal carotid artery 2. Left external carotid artery 3. Right common femoral artery The catheter and then the sheath were removed. Hemostasis was obtained with hand compression following placement of Angio-Seal device. The patient was taken to a hospital bed for routine post procedure observation and care. There were no apparent complications. FINDINGS: LEFT INTERNAL CAROTID ARTERY INJECTIONS: DSA runs were obtained over the head in PA, lateral, and oblique views. The distal cervical and intracranial left internal carotid artery opacify well and appear unremarkable. The left internal carotid artery bifurcates normally into widely patent and unremarkable left anterior cerebral and left middle cerebral arteries. There is flash filling of the anterior communicating artery. Tiny vessels are seen arising from the left cavernous ICA, likely leading into the left retro clival/left cavernous sinus mass and giving rise to a minimal tumor blush. However, no definite target for embolization was identified. No aneurysm, early draining vein, or stenosis is seen. LEFT EXTERNAL CAROTID ARTERY INJECTION: DSA runs were obtained over the head in PA and lateral views. There is good opacification of the branches of the left external carotid artery. However, there is no evidence of abnormal vessels arising from the left ECA branches and supplying the left retro clival/cavernous sinus mass. RIGHT COMMON FEMORAL ARTERY INJECTION: DSA run over the right hip was obtained in MAURER view. The right common femoral artery, femoral bifurcation, and distal vasculature opacify well appear unremarkable. There is no evidence of pseudoaneurysm, stenosis, dissection, or other type of vascular injury. IMPRESSION: 1. Tiny vessels arising from the left cavernous ICA and likely supplying the left intracranial/cavernous sinus mass with minimal tumor blush. No definite target for embolization was identified. 2. No evidence of abnormal blood supply to the left intracranial mass from the left ECA branches. I was present for and/or performed the critical portions of the procedure and immediately available throughout the entire procedure. I personally reviewed the image(s) / study and fellow (Dr Erika Gamino) interpretation. I agree with the findings as stated. This study was interpreted at [facility]. Electronically signed by: AUGUSTINE CARDOZA MD POST PROCEDURE NOTE - Observed: 02/10/2018 Status: COMPLETED Source: [place] NOT IN OR-CEREBRAL 10:30 AM [facility] REPOSITORY ANGIOGRAM Pre-procedure Verification and Time Out: Procedure location: procedure area Pre-procedure verification - Procedure Area: See departmental electronic charting or paper form Time-Out - Final Verification: See departmental electronic charting or paper form General Information: Post-Procedure Diagnosis: Intracranial Mass Procedure Name: Cerebral Angiogram Findings: Mild tumor blush from small ill-defined vessels emanating from left ICA; no target for embolization identified Procedure performed by: Soil And Plant Scientist(s): Fausto Gamino Estimated Blood Loss (mL): 5 Specimen: no Informed Consent: written consent obtained Procedure Details: Procedure Details: Access: 6 Fr Sheath Right ANGLE SHEARER Closure: AngioSeal Vessels injected: L ICA, L ECA, R ANGLE SHEARER Findings: Mild tumor blush from small ill-defined vessels emanating from left ICA; no target for embolization identified Full report to follow in PACS. Tolerance: good Complications: None Prep: Patient Position: supine Site Prep: with chlorhexidine, draped, usual sterile procedure followed Anesthesia: Anesthesia: local, intravenous Fentanyl (mcg): 100 microgram(s) 1% Lidocaine (mL): 5 mL Signature/Cosignature/Attestation: Attending AttestationI was present for the entire procedure Electronic Signatures: Alvina Garcia () (Signed 11-Feb-2018 10:44) Authored: Signature/Cosignature/Attestation Co-Signer: Pre-procedure Verification and Time Out, General Information, Procedure Details, Prep/Sedation, Signature/Cosignature/Attestation Fritz Duarte (Resident)) (Signed 10-Feb-2018 10:33) Authored: Pre-procedure Verification and Time Out, General Information, Procedure Details, Prep/Sedation, Signature/Cosignature/Attestation Last Updated: 11-Feb-2018 10:44 by Alvina Garcia) GLUCOSE-POCT Collected: 02/10/2018 Status: F Source: [facility] 8:37 AM [facility] REPOSITORY TYPE CODE TESTS RESULT OUT OF RANGE REFERENCE UNITS LAB GLUP(LOINC) 74 - 99 mg/dL High 170 GLUCOSE-POCT Performed By: #### GLUPO #### [facility] [address] [place] [id number] ABO/RH GROUP TEST Collected: 12/16/2017 Status: CANCELLED Source: [place] 8:12 AM [facility] REPOSITORY Order Comment: TEST ABO/RH GROUP TEST WAS CANCELLED, 12/20/2017 19:29 NO SPECIMEN RECEIVED IN LAB. TYPE CODE TESTS RESULT OUT OF REFERENCE UNITS RANGE LAB ABORH(LOINC ) ABO TYPE Canceled LAB RH(LOINC) RH TYPE Canceled Performed By: #### VERAB #### [facility] [address] [place] [address] URINALYSIS Collected: 12/15/2017 Status: F Source: [place] 11:11 AM [facility] REPOSITORY TYPE CODE TESTS RESULT OUT OF RANGE REFERENCE UNITS LAB COLU(LOIN STRAW,YELLOW C) COLOR YELLOW LAB APPRU([place] CLEAR NC) APPEARANCE CLEAR LAB SPGRU(SHAKE[place] 1.005 - 1.035 NC) SPECIFIC GRAVITY 1.017 LAB CAMMY(LOINC 5.0 - 8.0 ) pH 5.0 LAB PROTU([place] NEGATIVE mg/dL NC) PROTEIN Abnormal 100 (2+) LAB GLUCU(SHAKE[place] NEGATIVE mg/dL NC) GLUCOSE NEGATIVE LAB BLDU(LOIN NEGATIVE C) BLOOD Abnormal SMALL (1+) LAB KETU(LOIN NEGATIVE mg/dL C) KETONES NEGATIVE LAB BILIU([place]KE[place] NEGATIVE NC) BILIRUBIN NEGATIVE LAB UROU2(SHAKEEL 0.0 - 1.9 mg/dL NC) UROBILINOGEN <2.0 LAB NITRU(SHAKEEL NEGATIVE NC) NITRITE NEGATIVE LAB LEUKU(SHAKEEL NEGATIVE NC) LEUKOCYTE ESTERASE NEGATIVE Performed By: #### UA #### [facility] [address] [place] [address] UA MICROSCOPIC Collected: 12/15/2017 Status: F Source: [place] 11:11 AM [facility] REPOSITORY TYPE CODE TESTS RESULT OUT OF REFERENCE UNITS RANGE LAB WBCUR(LOINC 0-5 /HPF ) WBC 2 LAB RBCUR(LOINC 0-5 /HPF ) RBC 5 LAB EPSQE(LOINC /HPF ) SQUAMOUS <1 EPITH. CELLS Performed By: #### UAMIC #### [facility] [address] [place] [address] URINE Observed: 12/15/2017 Status: F Source: [place] CULTURE,BACTERIAL 11:11 [facility] REPOSITORY PATIENT: DIPESH BERMUDEZ LOCATION: [place] BESS#: [id number] : 54 AGE: SEX: M ORDERED BY: ALLIE PARADA SOURCE: URINE COLLECTED: 12/15/17 11:11 ANTIBIOTICS AT [facility].: RECEIVED : 12/15/17 19:34 SITE: Clean Catch/Voided R E S U L T S URINE CULTURE,BACTERIAL FINAL 12/16/17 11:54 NO SIGNIFICANT GROWTH. Performed By: #### URINC #### [facility] [address] [place] [address] Observed: 12/15/2017 Status: F Source: [place] STAPH/MRSA SCREEN 11:11 [facility] REPOSITORY PATIENT: DIPESH BERMUDEZ LOCATION: [place] BESS#: [id number] : 54 AGE: SEX: M ORDERED BY: ALLIE PARADA SOURCE: ANTERIOR NARES COLLECTED: 12/15/17 11:11 ANTIBIOTICS AT [facility].: RECEIVED : 12/15/17 14:09 SITE: Nasal R E S U L T S STAPH/MRSA SCREEN FINAL 12/17/17 06:33 NO Staphylococcus aureus ISOLATED. Performed By: #### STAPH #### [facility] [address] [place] [address] COAGULATION SCREEN Collected: 12/15/2017 Status: CANCELLED Source: [place] 11:10 [facility] REPOSITORY Order Comment: TEST COAGULATION SCREEN WAS CANCELLED, 12/15/2017 14:13 HCT >55. REQUIRES MODIFIED TUBE. TYPE CODE TESTS RESULT OUT OF REFERENCE UNITS RANGE LAB PT(LOINC) PROTHROMBIN TIME Canceled LAB INR(LOINC) PT, INR Canceled LAB APTT(LOINC ) APTT Canceled Result Comment: THE APTT IS NO LONGER USED FOR MONITORING UNFRACTIONATED HEPARIN THERAPY. FOR MONITORING HEPARIN THERAPY, USE THE HEPARIN ASSAY. Performed By: #### COAGS #### [facility] [address] [facility] [employer] [facility] [employer] [facility] [place] [address] CBC AND DIFFERENTIAL Collected: 12/15/2017 Status: F Source: [place] 11:10 [facility] REPOSITORY TYPE CODE TESTS RESULT OUT OF REFERENCE UNITS RANGE LAB WBCR(LOINC 4.4 - 11.3 x10E9/L ) WBC High 11.7 LAB NRBC(LOINC 0.0-0.0 /100 WBC ) NUCLEATED RBC 0.0 LAB RBCCT(LOIN 4.50 - 5.90 x10E12/L C) RBC High 6.19 LAB HGB(LOINC) 13.5 - 17.5 g/dL HGB 16.6 LAB HCT(LOINC) 41.0 - 52.0 % HCT High 55.3 LAB MCV(LOINC) 80 - 100 fL MCV 89 LAB MCHC2(LOIN 32.0 - 36.0 g/dL C) Low MCHC 30.0 LAB PLTCT(LOIN 150 - 450 x10E9/L C) PLT 293 LAB RDWCV(LOIN 11.5 - 14.5 % C) RDW-CV High 15.6 LAB NEUT(LOINC 40.0 - 80.0 % ) % NEUTROPHIL 77.3 LAB IG(LOINC) 0.0 - 0.9 % % AUTOMATED 0.5 IMMATURE GRAN Result Comment: Percent differential counts (%) should be interpreted in the context of the absolute cell counts (cells/L). LAB LYMPH(LOINC) 13.0 - % 44.0 % LYMPHOCYTE 14.6 LAB MONO(LOINC) 2.0 - 10.0 % % MONOCYTE 6.3 LAB EOS(LOINC) 0.0 - 6.0 % % EOSINOPHIL 0.6 LAB BASO(LOINC) 0.0 - 2.0 % % BASOPHIL 0.7 LAB #NEUT(LOINC) 1.20 - x10E9/L 7.70 NEUTROPHIL High 9.07 LAB #LYMP(LOINC) 1.20 - x10E9/L 4.80 LYMPHOCYTE 1.71 LAB #MONO(LOINC) 0.10 - x10E9/L 1.00 MONOCYTE 0.74 LAB #EOS(LOINC) 0.00 - x10E9/L 0.70 EOSINOPHIL 0.07 LAB #BASO(LOINC) 0.00 - x10E9/L 0.10 BASOPHIL 0.08 Performed By: #### CBCDF #### [facility] [address] [place] [address] BASIC METABOLIC PANEL Collected: 12/15/2017 Status: F Source: [place] 11:10 AM [facility] REPOSITORY TYPE CODE TESTS RESULT OUT OF REFERENCE UNITS RANGE LAB GLU(LOINC) 74 - 99 mg/dL High GLUCOSE 107 LAB SOD(LOINC) 136 - 145 mmol/L Low SODIUM 133 LAB K(LOINC) 3.5 - 5.3 mmol/L POTASSIUM 4.7 Result Comment: MILD HEMOLYSIS DETECTED. The result may be falsely elevated due to hemolysis or other interferents. Clinical correlation is recommended. Repeat testing may be considered. LAB CHLOR(LOINC) 98 - 107 mmol/L CHLORIDE Low 97 LAB BIC(LOINC) 21 - 32 mmol/L BICARBONATE 26 LAB ANGAP(LOINC) 10 - 20 mmol/L ANION GAP 15 LAB UREA(LOINC) 6 - 23 mg/dL UREA NITROGEN 16 LAB CREA(LOINC) 0.50 - mg/dL 1.30 CREATININE 1.20 LAB GFRFN(LOINC) >60 mL/min/1.73m 2 GFR-NON AM. >60 LAB GFRAA(LOINC) >60 mL/min/1.73m 2 GFR- AM. >60 Result Comment: CALCULATIONS OF ESTIMATED GFR ARE PERFORMED USING THE MDRD STUDY EQUATION FOR THE IDMS-TRACEABLE CREATININE METHODS. CLIN CHEM 2007;53:766-72 LAB CA(LOINC) 8.6 - 10.6 mg/dL CALCIUM 9.3 Performed By: #### BMP #### [facility] [address] [place] [address] COAGULATION SCREEN Collected: 12/15/2017 Status: F Source: [place] 11:10 AM [facility] REPOSITORY TYPE CODE TESTS RESULT OUT OF REFERENCE UNITS RANGE LAB PT(LOINC) 9.8 - 12.7 sec PROTHROMBIN TIME 10.2 Result Comment: A HEMATOCRIT VALUE GREATER THAN 55% MAY LEAD TO INACCURATE RESULTS IN COAGULATION TESTING. PATIENTS HAVING HEMATOCRIT VALUES >55% REQUIRE A SPECIAL COLLECTION TUBE FOR COAGULATION STUDIES. PLEASE CONTACT THE LABORATORY AT [phone] FOR INSTRUCTIONS. LAB INR(LOINC) 0.9 - 1.1 PT, INR 0.9 LAB APTT(LOINC) 25 - 36 sec APTT 36 Result Comment: THE APTT IS NO LONGER USED FOR MONITORING UNFRACTIONATED HEPARIN THERAPY. FOR MONITORING HEPARIN THERAPY, USE THE HEPARIN ASSAY. A HEMATOCRIT VALUE GREATER THAN 55% MAY LEAD TO INACCURATE RESULTS IN COAGULATION TESTING. PATIENTS HAVING HEMATOCRIT VALUES >55% REQUIRE A SPECIAL COLLECTION TUBE FOR COAGULATION STUDIES. PLEASE CONTACT THE LABORATORY AT [phone] FOR INSTRUCTIONS. Performed By: #### COAGS #### [facility] [address] [place] [address] TYPE + SCREEN Collected: 12/15/2017 Status: F Source: [place] 11:10 [facility] REPOSITORY TYPE CODE TESTS RESULT OUT OF REFERENCE UNITS RANGE LAB ABORH(LOINC ) ABO TYPE O LAB RH(LOINC) RH TYPE NEG LAB ABSC(LOINC) ANTIBODY NEG SCREEN Performed By: #### T+S #### [facility] [address] [place] [address] ESTABLISHED VISIT Observed: 12/02/2017 Status: UNK Source: [place] (NEUROSURGERY) 2:32 PM [facility] REPOSITORY Chief Complaint Patient is being seen for a follow-up Neurosurgical visit. History of Present Illness Mr Bermudez is a 67 y/o male with history of partial tumor resecton in 2013 at [facility] by Dr Cardenas. [facility] He comes with his critical care technician. He states that he has progressive deterioration particularly in terms of his diplopia and headache. His gait is also worse. He denies nausea and vomiting however.. He continues to smoke a pack a day Review of Systems Constitutional - no fever, no chills, no recent weight gain and no recent weight loss. Eyes - no blurred vision, no floaters, no unilateral loss of vision and no tunnel vision. ENT - no hearing loss, no nosebleeds, no dysphagia and no hoarseness. Cardiovascular - no chest pain, no chest pressure and no palpitations. Respiratory - no shortness of breath, no shortness of breath during exertion, no asthma, no cough and no hemoptysis. Gastrointestinal - no abdominal pain, no constipation, no heartburn, no nausea, no vomiting, no change in bowel movement, no diarrhea and no blood in stools. Genitourinary - no dysuria and no hematuria. Integumentary - no pressure wounds and is not slow to heal. Psychiatric - no suicidal ideations. Endocrine - no proptosis, heat or cold intolerance, no polydipsia, no polyuria, no abnormal was observed, no deepening of the voice and no hot flashes. Hematologic/Lymphatic - no swollen glands, no thrombophlebitis, no anemia, no tendency for easy bleeding, no tendency for easy bruising and no blood transfusion. Active Problems Problems Brain lesion (348.89) (G93.9) Meningioma (225.2) (D32.9) Family History Mother No pertinent family history Social History Problems Current every day smoker (305.1) (F17.200) Allergies Medication aspirin Recorded By: Yaneth Ocampo; 10/14/2017 8:35:55 AM codeine Recorded By: Yaneth Ocampo; 10/14/2017 8:35:55 AM Penicillins Recorded By: Yaneth Ocampo; 10/14/2017 8:35:55 AM sulindac Recorded By: Yaneth Ocampo; 10/14/2017 8:35:55 AM Current Meds Medication NameInstruction Albuterol Sulfate (2.5 MG/3ML) 0.083% Inhalation Nebulization Solution Albuterol Sulfate HFA 108 MCG/ACT AERS AmLODIPine Besylate 10 MG Oral Tablet Atorvastatin Calcium 20 MG Oral Tablet Carboxymethylcellulose Sodium Granules Chlorthalidone 25 MG Oral Tablet Depakote 500 MG Oral Tablet Delayed Release Divalproex Sodium 500 MG Oral Tablet Delayed Release Glucose 4 GM Oral Tablet Chewable GuaiFENesin 400 MG Oral Tablet Ketoconazole 2 % External Cream Levemir 100 UNIT/ML Subcutaneous Solution Lisinopril 40 MG Oral Tablet Loratadine 10 MG Oral Tablet Melatonin 3 MG Oral Tablet MetFORMIN HCl - 1000 MG Oral Tablet MiraLax Oral Packet Mometasone Furoate [id number] MCG/INH Mupirocin 2 % External Ointment NovoLOG FlexPen 100 UNIT/ML SOLN RisperiDONE 3 MG Oral Tablet Sildenafil Citrate 100 MG Oral Tablet Tolnaftate 1 % External Cream TraZODone HCl - 100 MG Oral Tablet Vitals Vital Signs Recorded: [id number] 01:38PM Sgeijsplkby451.3 F Heart Rate76 Ovbsybvlncx82 Nsngnrej128 Nxjcyrzrz00 Blood Pressure Cuff SizeAdult Height5 ft 9.29 in Ohubgx973 lb BMI Hpsmggnphc74.48 BSA Calculated2.14 O2 Kzkkzcguwz84 Pain Scale0 Physical Exam Constitutional - General appearance: No acute distress, well developed, well nourished and appearing his stated age. Head and Face - Normocephalic. Atraumatic. Eyes - Conjunctiva and sclera clear and not injected. Examination of pupils and irises: equal, round, and reactive to light. Ocular Motility Examination: Normal. Ophthalmoscopic examination: Normal appe aring optic disc and posterior segments. Ears, Nose, Mouth, and Throat - External inspection of ears and nose: No drainage from ears. Otoscopic examination: Normal. Inspection of nose and throat: No lesions; septum midline. Lips, teeth, and g ums: Normal. Oropharynx: Normal. Neck - Neck and thyroid: Normal, supple, trachea midline, no masses or thyromegaly. No palpable thyroid nodules. Pulmonary - Respiratory effort: Normal respiration. Cardiovascular - Carotid pulses: Normal; carotid bruits absent. Pedal pulses: Normal. edema/varicosities: normal. Abdomen - Abdomen: Soft, nontender, no organomegaly. Lymphatic - Palpation of lymph nodes: no lymphadenopathy. Musculoskeletal - Digits and nails: No visible deformity of joints. Inspection/palpation of joints, bones and muscles: Normal. Range of motion: Normal. Neurologic - Oriented to self, place, and time. Recent and remote memory: Demonstrates normal memory. Attention span and concentration: Normal thought process and attention span. Language: Fluid speec h and intact cognition. Fund of knowledge: Normal vocabulary with appropriate knowledge of current events and past history. 2nd cranial nerve: Normal. 3rd, 4th, and 6th cranial nerve: Abnormal. Asst. diplopia in all jimenez a few on the left. 5th cranial nerve: Normal. 7th cranial nerve: Normal. 8th cranial nerve: Normal. 9th cranial nerve: Normal. 10th cranial nerve: Normal. 11th cranial nerve: Normal. 12th cranial nerve: Normal. Muscle strength: 5/5 strength both UE and LE without flacidity, rigidity, cogwheeling, or spasticity. No visible fasiculations. Muscle tone: No atrophy, abnormal movements, flaccidity, cogwheeling or spasticity. Gait and Station: Abnormal. Poor tandem gait with positive Romberg. Sensation: Grossly intact to pinprick and temperature throughout all dermatomes. No allodynia. Reflexes: Symmetric and normal deep tendon reflexes throughout. Negative Perez's sign. Toes down on Babinski. No clonus at ankles. Coordination: No dysmetria, no dysdiadochokinesis, negative Romberg sign. Judgment and insight: Normal. Mood and affect: Normal. Radicular Testing: Normal. Spine - Normal. Results/Data I personally reviewed the MRI dated 11/15/17. This shows a 33 x 19 x 17 mm left petroclival cistern mass abutting the Meckel's cave in the left and compressing the brainstem. This is dural based extra-axi al and enhancing most consistent with meningioma. On 08/22/14, the MRI was 27 x 16.5 x 17.5 again in the left heather clinoid region. On 10/07/15 the dimensions were 29 x 16 x 20. This is suggestive of persistent growth Diagnoses/Problems Assessed Meningioma (225.2) (D32.9) No pertinent family history : Mother Current every day smoker (305.1) (F17.200) Patient Discussion/Summary I met with the patient and his critical care technician. He has persistent diplopia on the left with gait imbalance and a wide-based gait. The tumor is larger and he has a reasonable KPS of 70 spent approximately 45min with pt and congregational care pastor or sleeping consultation He is definitive that he wants surgery. I was quite definitive and that I could not necessarily promise that I would make him better and that in fact he may be worse. He was quite clear that he was gett ing worse anyway and he wanted to try surgical approach. I agreed to have him evaluated by the PAT group. I will see him back in a week. If he does undergo surgery he will also need to be embolized preoperatively and the insurance person all agreed that that would be a reasonable plan. All questions were answered and we will see him back in 2 weeks' time after PAT visit.. Signatures Electronically signed by : Allie Parada MD; Dec 02 2017 2:32PM EST (Author) PROGRESS Observed: 11/30/2017 Status: COMPLETED Source: [place] 11:16 AM [facility] REPOSITORY HNO ID: [id number] Author: Rubin Lennon Service: (none) Author Type: Physician Type: Progress Notes Filed: 11/30/2017 12:12 PM Note Text: [facility] [address] [place] [address], [id number] [place] [address] [facility] Follow-Up Evaluation Date: November 30, 2017 - 11:16 AM Nursing Assessment: AMB ROOMING INTAKE FLOWSHEET DATA Risk Screening Do you have concerns about personal safety or safety in the home?: No Does the pain radiate? No. Distribution: N/A Is the pain related to trauma? No Best pain intensity (on a scale of 0-10/10): 0 Worst pain intensity (on a scale of 0-10/10): NA Exacerbating factors: unable to pinpoint exacerbating factors/positions Alleviating factors: unable to pinpoint positions/factors that are mitigating Previous pain treatments: physical therapy, medications Physical Therapy: - Last Visit: 2-3 weeks ago effective Since his last visit the patient reported marked improvement in pain and marked improvement in function. Allergies: ALLERGIES Allergen Reactions - Insulin Nph Human I* Other: See Comments Other allergic reaction CAUSES HYPERGLYCEMIA Onset Date: 2006 - Asa [Aspirin] Intolerance - Codeine Intolerance - Penicillins Unknown Current Outpatient Medications: Current Outpatient Prescriptions: amLODIPine (NORVASC) 10 mg tablet Take 10 mg by mouth once daily. divalproex ER (DEPAKOTE ER) 500 mg 24 hr tablet Take 500 mg by mouth once daily. VENTOLIN HFA 90 mcg/actuation inhaler metFORMIN (GLUCOPHAGE) 1,000 mg tablet LANTUS SOLOSTAR 100 unit/mL (3 mL) inpn albuterol (PROVENTIL) 2.5 mg /3 mL (0.083 %) nebulizer solution Use 2.5 mg via nebulizer every 6 hours as needed. ALBUTEROL SULFATE INHALATION Inhale 1 Puff as instructed four times daily as needed. IPRATROPIUM BROMIDE INHALATION Inhale as instructed four times daily. INSULIN GLARGINE,HUM.REC.ANLOG (LANTUS SUBCUTANEOUS) Inject 45 Units/mL subcutaneously daily at bedtime. insulin aspart (NOVOLOG) 100 unit/mL inpn Inject 12 Units subcutaneously three times daily. POLYETHYLENE GLYCOL 3350 ORAL Take 17 g by mouth once daily. PRN hydrochlorothiazide (HYDRODIURIL, ESIDRIX) 25 mg tablet ibuprofen (MOTRIN) 800 mg tablet Lisinopril 30 mg tablet risperiDONE (RISPERDAL) 3 mg tablet Topiramate (TOPAMAX) 50 mg tablet ketoconazole (NIZORAL) 2 % shampoo Apply 1 application to affected area once daily. metFORMIN (GLUCOPHAGE) 500 mg tablet Take 1,000 mg by mouth twice daily. mupirocin (BACTROBAN) 2 % ointment Apply 1 application to affected area twice daily. TOLNAFTATE TOPICAL Apply to affected area. 1 powder Once per day Topical ZOSTAVAX, PF, 19,400 unit/0.65 mL injection No current facility-administered medications for this visit. 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 - Backache - Benign neoplasm of brain (HCC) meningioma - Benign neoplasm of meninges ([facility]) stable 1.5 x2.5 cm mass in left anterior-posterior - Bipolar 1 disorder (HCC) - Bipolar I disorder (HCC) - Bronchitis - Chest pain - Chronic obstructive lung disease (HCC) - Cough - Diabetes ([facility]) - Essential hypertension - Essential tremor - HBP (high blood pressure) - Headache intermittent - Heart disease - Hx of peptic ulcer - Hyperlipidemia - Hypoglycemia associated with diabetes ([facility]) - Hyponatremia - Irregular heartbeat - Leg cramp - Low back pain - Lymphedema - Near syncope - Neck pain - Obstructive sleep apnea syndrome CPAP - Osteoarthritis - Paranoid personality (disorder) ([facility]) - Seizure ([facility]) - Solitary pulmonary nodule present on computed tomography of lung - Tietze's disease - Type 2 diabetes mellitus ([facility] Past Surgical History: PAST SURGICAL HISTORY Procedure Laterality Date - PAST SURGICAL HISTORY OF Right tib - PAST SURGICAL HISTORY OF brain surg - PAST SURGICAL HISTORY OF Remove lung, partial Family History: FAMILY HISTORY Problem Relation Age of Onset - Stroke Mother Social History: Alcohol Use: Approximately 1.5 oz/week [which includes 1 Cans of Beer (12oz) per week] (quit July/drinks 1 beer/day) Tobacco Use: 1 packs/day Types: Cigarettes Drug Use: No Occupation: Retired Psychiatric History: depression, anxiety, bipolar, post-traumatic stress disorder Review of Systems: GENERAL: Any recent malaise or fevers? No HEENT: Any frequent or significant headaches? No Any recent changes in hearing or vision, nose bleeds or other nasal problems? No NECK: Any lumps, goiter, pain and significant neck swelling? No RESPIRATORY: Any recent cough, wheezing or shortness of breath? No CARDIOVASCULAR: Any recent chest pain, leg swelling or palpitations? No GASTROINTESTINAL: Any recent abdominal discomfort, blood in stools or black stools or change in bowel habits? No GENITOURINARY: Any history of dysuria, frequency or incontinence? No PEANUT SHELLER: Any for abnormal vaginal bleeding, abnormal vaginal discharge? N/A MUSCULOSKELETAL: Any joint pain or swelling, back pain or muscle pain? No NEUROLOGIC: Any recent focal numbness or weakness, dizziness or syncope? Yes - LUE extremity numbness SKIN: Any recent skin lesions, rash, and itching? No PSYCHIATRIC: Any recent sleep disturbance, mood disorder and recent psychosocial stressors? No HEMATOLOGIC/LYMPHATIC/IMMUNOLOGIC: Any problems with prolonged bleeding, bruising easily or swollen nodes? No ENDOCRINE: Any cold or heat intolerance, polyuria, polydipsia and goiter? No The remainder of the ROS was negative. Julianna Lofton RN November 30, 2017 11:16 AM Nursing Attestation: I have reviewed the nursing documentation, edited it as necessary, and confirmed the pertinent information with the patient. Rubin Lennon MD 11:40 AM SUBJECTIVE: Dipesh Bermudez is a 67 year old who presents to [facility] Pain Management Department for a follow up appointment. The plan from the last visit on 09/07/17 was: Plan: 1. A referral to PT was provided to the patient. 2. Recommend using Salon Pas patches over the affected areas before bedtime. 3. Discontinue ibuprofen. 4. Return to clinic after completing PT. 5. Consider interventional options in the future if his pain does not improve with conservative management. Since the last visit, his pain has resolved since completing PT. He continues to do his exercises at home daily. He did not try the Salon Pas patches and he continues to take Ibuprofen. Current pain medication: Ibuprofen OARRS Report: Reviewed: The patient's OARRS report was reviewed and is consistent with the reported medication use. Physical Examination: BP 154/91 Pulse 76 Resp 18 Ht 5' 10 (1.78m) Wt 217 lb 4.8 oz (98.6kg) BMI 31.18 kg/(m2). General:Overweight, well appearing, alert and in no acute distress Skin: skin color, texture, turgor normal, no rashes or lesions HEENT: normocephalic, atraumatic, sclera non-icteric Lungs: unlabored breathing Musculoskeletal: Neck: Supple; good ROM. Extremities: Extremities normal. No deformities, edema, or skin discoloration Neurological: Mental Status: alert, oriented to person, place and time Motor Strength: grossly normal Gait: Antalgic. New Imaging and Diagnostic Studies: No ASSESSMENT: Dipesh Bermudez is a 67 year old male with chronic neck pain with radiation into the shoulders and axial low back pain without radiation. He only has pain while sleeping typically. His pain is most consistent with myofascial pain and facet arthropathy of the lumbar spine. He does have degenerative changes noted in the cervical spin on imaging studies. He smokes a pack of cigarettes a day which will impact his overall health and his chronic pain. I have encouraged him to try to quit smoking. His pain has resolved since participating in PT. I encouraged him to continue his home exercises. He may be a candidate for interventional options in the future if he fails to improve with conservative management. (M79.1) Myofascial pain (primary encounter diagnosis) (M54.2) Neck pain (M54.5, G89.29) Chronic bilateral low back pain without sciatica (R53.81) Physical deconditioning (R26.9) Abnormality of gait Plan: 1. Continue home exercise program. 2. Recommend smoking cessation. 3. Continue all medications as prescribed by his prescribing physicians. 4. Return to clinic on an as needed basis. The above plan and management options were discussed at length with patient. Patient is in agreement with the above and verbalized understanding. Rubin Lennon MD Staff Physician [facility] November 30, 2017 12:11 PM CNOV Observed: 11/30/2017 Status: COMPLETED Source: [place] 11:10 AM [facility] REPOSITORY Office Visit (SPMPTW) LARSDIPESH ([id number]) 1950 M [facility] Date Time Provider Department 11/30/17 11:10 AM RUBIN LENNON SPMPTW During your visit today, we recorded the following information about you: Pulse Respiration Blood pressure Weight 76/minute 18/minute 154/91 98.6 kg Height 1.778 m Rubin Lennon MD 11/30/2017 12:12 PM Signed [facility] [address] [place] [address] Chronic Pain Clinic Follow-Up Evaluation Date: November 30, 2017 - 11:16 AM Nursing Assessment: AMB ROOMING INTAKE FLOWSHEET DATA Risk Screening Do you have concerns about personal safety or safety in the home?: No Does the pain radiate? No. Distribution: N/A Is the pain related to trauma? No Best pain intensity (on a scale of 0-10/10): 0 Worst pain intensity (on a scale of 0-10/10): NA Exacerbating factors: unable to pinpoint exacerbating factors/positions Alleviating factors: unable to pinpoint positions/factors that are mitigating Previous pain treatments: physical therapy, medications Physical Therapy: - Last Visit: 2-3 weeks ago effective Since his last visit the patient reported marked improvement in pain and marked improvement in function. Allergies: ALLERGIES Allergen Reactions - Insulin Nph Human I* Other: See Comments Other allergic reaction CAUSES HYPERGLYCEMIA Onset Date: 2006 - Asa [Aspirin] Intolerance - Codeine Intolerance - Penicillins Unknown Current Outpatient Medications: Current Outpatient Prescriptions: amLODIPine (NORVASC) 10 mg tablet Take 10 mg by mouth once daily. divalproex ER (DEPAKOTE ER) 500 mg 24 hr tablet Take 500 mg by mouth once daily. VENTOLIN HFA 90 mcg/actuation inhaler metFORMIN (GLUCOPHAGE) 1,000 mg tablet LANTUS SOLOSTAR 100 unit/mL (3 mL) inpn albuterol (PROVENTIL) 2.5 mg /3 mL (0.083 %) nebulizer solution Use 2.5 mg via nebulizer every 6 hours as needed. ALBUTEROL SULFATE INHALATION Inhale 1 Puff as instructed four times daily as needed. IPRATROPIUM BROMIDE INHALATION Inhale as instructed four times daily. INSULIN GLARGINE,HUM.REC.ANLOG (LANTUS SUBCUTANEOUS) Inject 45 Units/mL subcutaneously daily at bedtime. insulin aspart (NOVOLOG) 100 unit/mL inpn Inject 12 Units subcutaneously three times daily. POLYETHYLENE GLYCOL 3350 ORAL Take 17 g by mouth once daily. PRN hydrochlorothiazide (HYDRODIURIL, ESIDRIX) 25 mg tablet ibuprofen (MOTRIN) 800 mg tablet Lisinopril 30 mg tablet risperiDONE (RISPERDAL) 3 mg tablet Topiramate (TOPAMAX) 50 mg tablet ketoconazole (NIZORAL) 2 % shampoo Apply 1 application to affected area once daily. metFORMIN (GLUCOPHAGE) 500 mg tablet Take 1,000 mg by mouth twice daily. mupirocin (BACTROBAN) 2 % ointment Apply 1 application to affected area twice daily. TOLNAFTATE TOPICAL Apply to affected area. 1 powder Once per day Topical ZOSTAVAX, PF, 19,400 unit/0.65 mL injection No current facility-administered medications for this visit. 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 - Backache - Benign neoplasm of brain (HCC) meningioma - Benign neoplasm of meninges (HCC) stable 1.5 x2.5 cm mass in left anterior-posterior - Bipolar 1 disorder (HCC) - Bipolar I disorder (HCC) - Bronchitis - Chest pain - Chronic obstructive lung disease (HCC) - Cough - Diabetes (HCC) - Essential hypertension - Essential tremor - HBP (high blood pressure) - Headache intermittent - Heart disease - Hx of peptic ulcer - Hyperlipidemia - Hypoglycemia associated with diabetes (HCC) - Hyponatremia - Irregular heartbeat - Leg cramp - Low back pain - Lymphedema - Near syncope - Neck pain - Obstructive sleep apnea syndrome CPAP - Osteoarthritis - Paranoid personality (disorder) (HCC) - Seizure (HCC) - Solitary pulmonary nodule present on computed tomography of lung - Tietze's disease - Type 2 diabetes mellitus (HCC) [facility] Past Surgical History: PAST SURGICAL HISTORY Procedure Laterality Date - PAST SURGICAL HISTORY OF Right tib - PAST SURGICAL HISTORY OF brain surg - PAST SURGICAL HISTORY OF Remove lung, partial Family History: FAMILY HISTORY Problem Relation Age of Onset - Stroke Mother Social History: Alcohol Use: Approximately 1.5 oz/week [which includes 1 Cans of Beer (12oz) per week] (quit July/drinks 1 beer/day) Tobacco Use: 1 packs/day Types: Cigarettes Drug Use: No Occupation: Retired Psychiatric History: depression, anxiety, bipolar, post-traumatic stress disorder Review of Systems: GENERAL: Any recent malaise or fevers? No HEENT: Any frequent or significant headaches? No Any recent changes in hearing or vision, nose bleeds or other nasal problems? No NECK: Any lumps, goiter, pain and significant neck swelling? No RESPIRATORY: Any recent cough, wheezing or shortness of breath? No CARDIOVASCULAR: Any recent chest pain, leg swelling or palpitations? No GASTROINTESTINAL: Any recent abdominal discomfort, blood in stools or black stools or change in bowel habits? No GENITOURINARY: Any history of dysuria, frequency or incontinence? No PEANUT SHELLER: Any for abnormal vaginal bleeding, abnormal vaginal discharge? N/A MUSCULOSKELETAL: Any joint pain or swelling, back pain or muscle pain? No NEUROLOGIC: Any recent focal numbness or weakness, dizziness or syncope? Yes - LUE extremity numbness SKIN: Any recent skin lesions, rash, and itching? No PSYCHIATRIC: Any recent sleep disturbance, mood disorder and recent psychosocial stressors? No HEMATOLOGIC/LYMPHATIC/IMMUNOLOGIC: Any problems with prolonged bleeding, bruising easily or swollen nodes? No ENDOCRINE: Any cold or heat intolerance, polyuria, polydipsia and goiter? No The remainder of the ROS was negative. Julianna Lofton RN November 30, 2017 11:16 AM Nursing Attestation: I have reviewed the nursing documentation, edited it as necessary, and confirmed the pertinent information with the patient. Rubin Lennon MD 11:40 AM SUBJECTIVE: Dipesh Bermudez is a 67 year old who presents to [facility] Pain Management Department for a follow up appointment. The plan from the last visit on 09/07/17 was: Plan: 1. A referral to PT was provided to the patient. 2. Recommend using Salon Pas patches over the affected areas before bedtime. 3. Discontinue ibuprofen. 4. Return to clinic after completing PT. 5. Consider interventional options in the future if his pain does not improve with conservative management. Since the last visit, his pain has resolved since completing PT. He continues to do his exercises at home daily. He did not try the Salon Pas patches and he continues to take Ibuprofen. Current pain medication: Ibuprofen OARRS Report: Reviewed: The patient's OARRS report was reviewed and is consistent with the reported medication use. Physical Examination: BP 154/91 Pulse 76 Resp 18 Ht 5' 10 (1.78m) Wt 217 lb 4.8 oz (98.6kg) BMI 31.18 kg/(m2). General:Overweight, well appearing, alert and in no acute distress Skin: skin color, texture, turgor normal, no rashes or lesions HEENT: normocephalic, atraumatic, sclera non-icteric Lungs: unlabored breathing Musculoskeletal: Neck: Supple; good ROM. Extremities: Extremities normal. No deformities, edema, or skin discoloration Neurological: Mental Status: alert, oriented to person, place and time Motor Strength: grossly normal Gait: Antalgic. New Imaging and Diagnostic Studies: No ASSESSMENT: Dipesh Bermudez is a 67 year old male with chronic neck pain with radiation into the shoulders and axial low back pain without radiation. He only has pain while sleeping typically. His pain is most consistent with myofascial pain and facet arthropathy of the lumbar spine. He does have degenerative changes noted in the cervical spin on imaging studies. He smokes a pack of cigarettes a day which will impact his overall health and his chronic pain. I have encouraged him to try to quit smoking. His pain has resolved since participating in PT. I encouraged him to continue his home exercises. He may be a candidate for interventional options in the future if he fails to improve with conservative management. (M79.1) Myofascial pain (primary encounter diagnosis) (M54.2) Neck pain (M54.5, G89.29) Chronic bilateral low back pain without sciatica (R53.81) Physical deconditioning (R26.9) Abnormality of gait Plan: 1. Continue home exercise program. 2. Recommend smoking cessation. 3. Continue all medications as prescribed by his prescribing physicians. 4. Return to clinic on an as needed basis. The above plan and management options were discussed at length with patient. Patient is in agreement with the above and verbalized understanding. Rubin Lennon MD Staff Physician [facility] November 30, 2017 12:11 PM Referring Provider: SELF [[id number]] Allergies As of Date: 11/30/2017 Noted Allergy Reaction INSULIN NPH HUMAN ISOPHANE 09/18/2015 14 - Other: See Comments Comments: Other allergic reaction CAUSES HYPERGLYCEMIA Onset Date: 2006 ASA (ASPIRIN) 03/28/2015 5 - Intolerance CODEINE 03/28/2015 5 - Intolerance PENICILLINS 03/28/2015 16 - Unknown Date Reviewed: 11/30/2017 Reviewed by: Julianna Sullivan) JANIYA Lofton - Fully Assessed Reason for Visit: Recheck [92] Cmt: back pain Primary Visit Diagnosis:Myofascial pain [M79.1] Other Visit Diagnoses:Neck pain [M54.2] Chronic bilateral low back pain without sciatica [M54.5, G89.29] Physical deconditioning [R53.81] Abnormality of gait [R26.9] Prescriptions as of 11/30/2017 Sig: AMLODIPINE 10 MG TABLET Take 10 mg by mouth once gulshan* DIVALPROEX ER 500 MG TABLET,E* Take 500 mg by mouth once rochelle* VENTOLIN HFA 90 MCG/ACTUATION* METFORMIN 1,000 MG TABLET LANTUS SOLOSTAR U-100 INSULIN* ALBUTEROL SULFATE 2.5 MG/3 ML* Use 2.5 mg via nebulizer ever* ALBUTEROL SULFATE INHALATION Inhale 1 Puff as instructed f* IPRATROPIUM BROMIDE INHALATION Inhale as instructed four ti* LANTUS SUBCUTANEOUS Inject 45 Units/mL subcutaneo* INSULIN ASPART U-100 100 UNI* Inject 12 Units subcutaneousl* POLYETHYLENE GLYCOL 3350 ORAL Take 17 g by mouth once daily* HYDROCHLOROTHIAZIDE 25 MG TAB* IBUPROFEN 800 MG TABLET LISINOPRIL 30 MG TABLET RISPERIDONE 3 MG TABLET TOPIRAMATE 50 MG TABLET KETOCONAZOLE 2 % SHAMPOO Apply 1 application to affect* METFORMIN 500 MG TABLET Take 1,000 mg by mouth twice * MUPIROCIN 2 % TOPICAL OINTMENT Apply 1 application to affect* TOLNAFTATE TOPICAL Apply to affected area. 1 po* ZOSTAVAX (PF) 19,400 UNIT/0.6* Problem List As Of Date 11/30/2017 Noted Resolved Closed displaced oblique fracture of shaft of r*INVALID FOR* Lisfranc dislocation [S93.326A] INVALID FOR* Bipolar 1 disorder (HCC) [F31.9] Benign neoplasm of meninges (HCC) [D32.9] More... Remote history of stroke [Z86.73] INVALID FOR* Disposition: Return if symptoms worsen or fail to improve. Follow-up and Disposition History Recorded Encounter Status:Closed by RUBIN LENNON MD on 11/30/17 NR MRI BRAIN W/WO Observed: 11/15/2017 Status: F Source: [facility] 3:45 PM [facility] Patient Name: DIPESH BERMUDEZ STUDY: NR MRI BRAIN W/WO CONTRAST; 11/15/2017 3:45 pm INDICATION: Signs/Symptoms: meningioma. COMPARISON: None. ACCESSION NUMBER(S): [id number] ORDERING CLINICIAN: ALLIE PARADA TECHNIQUE: MRI of the brain was performed with acquisition of axial diffusion-weighted, axial FLAIR, axial T1, axial T2, axial T2 gradient echo, axial T1 post-contrast, and volumetric axial T1 post contrast with multiplanar reformats. CONTRAST 20 mL of MultiHance was injected intravenously. FINDINGS: There is no acute intracranial hemorrhage or infarct. There are postoperative changes from prior left lateral craniotomy. There is underlying dural enhancement which may be reactive. There is T2 hyperintense signal in the left temporal lobe white matter which may be treatment related. There is associated mild ex vacuo dilatation of the left temporal horn. There is a 3.3 cm AP x 1.9 cm transverse x 1.7 cm craniocaudal mass located in the left retro clival/prepontine cistern and in left Meckel's cave and cavernous sinus which is most consistent with a meningioma. There is mass effect on the adjacent left ventral alejandra. There is no edema in the brainstem. The meningioma abuts the basilar artery and the left superior cerebellar artery without luminal narrowing. The meningioma terminates just before the level of the foramen ovale and does not extend into the foramen rotundum or ovale. There is an old small lacunar infarct in the right thalamus. There are few scattered foci of T2 hyperintensity in the bilateral cerebral hemispheric white matter which are nonspecific but are within normal limits for patient's age. Ventricles and sulci are diffusely prominent due to age related diffuse cerebral volume loss. There is encephalomalacia in the paramedian portions of bilateral cerebellum, likely sequela of prior infarcts. Visualized paranasal sinuses and mastoid air cells are essentially clear. IMPRESSION: 1. There are postoperative changes from prior left lateral craniotomy. There is underlying dural enhancement which is likely reactive. There is mild encephalomalacia in the left temporal lobe, likely treatment related. 2. There is a 3.3 cm AP x 1.9 cm transverse x 1.7 cm craniocaudal mass located in the left retro clival/prepontine cistern and in left Meckel's cave and cavernous sinus which is most consistent with a meningioma. Surrounding mass effect as detailed above. 3. There are old supra and infratentorial infarcts as detailed above. This study was interpreted at [facility]. Electronically signed by: IGNACIO SANTANA MD POCT CREATININE AND Collected: 11/15/2017 Status: F Source: [facility] GFR 3:17 PM [facility]IT[facility] REPOSITORY TYPE CODE TESTS RESULT OUT OF RANGE REFERENCE UNITS LAB POCCR(LOIN 0.6 - 1.3 mg/dL C) CREATININE 1.3 LAB POGFR(LOIN >60 C) mL/min/1.73m2 POCT GFR Abnormal 58 Result Comment: POCT eGFR is intended for Radiology screening purposes only. Performed By: #### PCRGF #### [facility] [address] [place] [address] CREATININE Collected: 11/15/2017 Status: F Source: [facility] 1:27 PM [facility] REPOSITORY TYPE CODE TESTS RESULT OUT OF RANGE REFERENCE UNITS LAB CREA(LOINC 0.50 - 1.30 mg/dL ) CREATININE 1.28 LAB GFRFN(LOIN >60 mL/min/1.7 C) 3m2 GFR-NON Abnormal AM. 56 LAB GFRAA(LOIN >60 mL/min/1.7 C) 3m2 GFR- AM. 68 Result Comment: CALCULATIONS OF ESTIMATED GFR ARE PERFORMED USING THE MDRD STUDY EQUATION FOR THE IDMS-TRACEABLE CREATININE METHODS. CLIN CHEM 2007;53:766-72 Performed By: #### CREAT #### [facility] [address] [place] [address] UREA NITROGEN Collected: 11/15/2017 Status: F Source: [facility] 1:27 PM [facility]ITALS REPOSITORY TYPE CODE TESTS RESULT OUT OF REFERENCE UNITS RANGE LAB UREA(LOINC) 6 - 23 mg/dL UREA NITROGEN 15 Performed By: #### UREA #### [facility] [address] [place] [address] PROGRESS Observed: 11/11/2017 Status: COMPLETED Source: [place] 8:40 AM CLINIC OTHER CAMPUS REPOSITORY HNO ID: [id number] Author: Teja (Pt) SHANNA Ortega Service: (none) Author Type: Physical Therapist Type: Progress Notes Filed: 11/11/2017 1:09 PM Note Text: Episode Visit Count: 9 Therapist That Will Oversee The Plan Of Care: Teja Ortega PT Start of Care Date: 09/15/17 Onset Date: 03/17/17 Plan of Care Certification Date: 09/15/17 Patient Identified by Name and Date of : Yes REHABILITATION AND SPORTS THERAPY PHYSICAL THERAPY DISCONTINUANCE OF CARE PLAN OF CARE UPDATE: Assessment: Dipesh Bermudez is discontinued from Physical Therapy services due to goal achievement and maximal benefit.. Patient was seen for 9 visits from Start of Care Date: 09/15/17 to 11/11/2017 and treatment included: Therapeutic exercise, Therapeutic activities, Self- mcc management, Patient/Family/Caregiver Education and Chronic pain rehabilitation program. UPDATED 11/11/17 Goals for Episode of Care: created on 09/15/17 through 11/15/17 Independent in home exercises. MET Patient will decrease pain rating by 2 points to meet minimal clinical important difference for numeric pain rating scale. MET Sleep through night without pain/symptoms. MET Knowledgeable regarding prophylaxis. MET Patient will increase strength of bilateral upper and lower extremities to 4->4+/5 to allow for perform ADLs. Partially MET Patient will increase flexibility/AROM of cervical and lumbar spine by 25% all planes to decrease pain. Met. Patient will improve his/her AM-PAC T-scale score by 4 points to indicate a Minimal Clinical Important Difference. MET G CODE REPORTING Based on clinical assessment and the score on the AM-PAC Scale Score Assessment Tool, the G code and corresponding severity modifiers are documented below. MET Evaluation: 09/16/2017 Current Status: Mobility: Walking and Moving Around: G8978 CK 40-59% impaired Goal Status: Mobility: Walking and Moving Around: G8979 CK 40-59% impaired MET 11/11/17 AM-PAC Basic Mobility Adaptive Form score = 41; 33% Goal status G8979 CK DC status G8980 CJ SUBJECTIVE: Patient presents without any complaints of pain today. He is agreeable with today being his last PT session. Arrives to PT via motorized scooter. Pain Score: 0/10 Pain Location: Low Back/Lumbar Spine - Right;Low Back/Lumbar Spine - Left Post Treatment Pain Score: 0/10 Pain Location: Low Back/Lumbar Spine - Right;Low Back/Lumbar Spine - Left OBJECTIVE MEASURES WITH LEVEL OF FUNCTION: Trunk AROM: Flexion = min loss Extension = mod loss Side bending = mod loss bilaterally Cervical AROM: Flexion = WFL Extension = major loss Rotation = min loss right, mod loss left Side bending = mod loss right, major loss left Strength Right Left Hip flexion 4-/5 4/5 Knee extension 4/5 4/5 Knee flexion 4-/5 4-/5 Ankle DF 4/5 4/5 Ankle PF 4-/5 4-/5 Shoulders 4/5 4/5 Elbows 4/5 4/5 AM-PAC score = 41; 33% TREATMENT: Therapeutic Exercise: 1: NuStep L 5-7, 8 min 2: Seated roll outs with 75 cm ball 10 reps, 10 sec hold 3: Seated roll outs to the right 10 reps, 10 sec hold 4: Seated thoracic rotation right 10 reps, 5 sec hold 8: Standing hamstring stretch 2X each leg for 30 seconds ea 9: Pelvic Tilts 10X with 5 second squeeze 10: trunk Rotation 10X2 with BLE's elevated on 65 cm ball 11: prone lying -> prone prop 2 min 13: Calf Stretch on slant board for 30 sec X 2 14: Prone knee curls 1 1/2 lb 10 reps, 2 sets bilateral 15: SKTC stretch 15 sec ea 5X 16: Bridges 10X2 with 5 sec hold with BLE's elevated on 65 cm ball 17: DKTC 10X2 with 65 cm ball 18: Cervical ROM ex's 5X ea: flex, extend, SB, Rot ea. direction 19: Cervical stretching CW and CW X 3 20: Trunk SB stretch seated L AND R 3X ea for 10 sec Skilled Intervention: Patient was educated in proper exercise technique and purpose for exercises. Skilled judgment was provided in selection of appropriate interventions. Billing: [place]: Therapeutic Exercise ([id number]): 1:1 time: 50 minutes (3 units: 38-52 mins) Total time: 50 minutes Teja Ortega PT CNTHERAPY Observed: 11/11/2017 Status: COMPLETED Source: [place] 8:30 AM CLINIC OTHER CAMPUS REPOSITORY OT/PT/Speech Visit (AKPTLZena) DIPESH BERMUDEZ ([id number]) 1950 M T Date Time Provider Department 11/11/17 8:30 AM TEJA ORTEGA (PT) [facility] Date Time Provider Department Center 11/11/2017 8:30 AM [id number] ORTEGA *[facility]PTR[facility] Reason for Visit: PT Progress Note [1766] Reason For Visit History Recorded Primary Visit Diagnosis:Chronic bilateral low back pain without sciatica [M54.5, G89.29] Other Visit Diagnoses:Neck pain [M54.2] Physical deconditioning [R53.81] Abnormal gait [R26.9] Allergies As of Date: 11/11/2017 Noted Allergy Reaction INSULIN NPH HUMAN ISOPHANE 09/18/2015 14 - Other: See Comments Comments: Other allergic reaction CAUSES HYPERGLYCEMIA Onset Date: 2006 ASA (ASPIRIN) 03/28/2015 5 - Intolerance CODEINE 03/28/2015 5 - Intolerance PENICILLINS 03/28/2015 16 - Unknown Date Reviewed: 09/07/2017 Reviewed by: Jay Chamberlain Ma - Fully Assessed Prescriptions as of 11/11/2017 Sig: AMLODIPINE 10 MG TABLET Take 10 mg by mouth once gulshan* DIVALPROEX ER 500 MG TABLET,E* Take 500 mg by mouth once rochelle* VENTOLIN HFA 90 MCG/ACTUATION* METFORMIN 1,000 MG TABLET LANTUS SOLOSTAR U-100 INSULIN* ALBUTEROL SULFATE 2.5 MG/3 ML* Use 2.5 mg via nebulizer ever* ALBUTEROL SULFATE INHALATION Inhale 1 Puff as instructed f* IPRATROPIUM BROMIDE INHALATION Inhale as instructed four ti* KETOCONAZOLE 2 % SHAMPOO Apply 1 application to affect* LANTUS SUBCUTANEOUS Inject 45 Units/mL subcutaneo* METFORMIN 500 MG TABLET Take 1,000 mg by mouth twice * MUPIROCIN 2 % TOPICAL OINTMENT Apply 1 application to affect* INSULIN ASPART U-100 100 UNI* Inject 12 Units subcutaneousl* POLYETHYLENE GLYCOL 3350 ORAL Take 17 g by mouth once daily* TOLNAFTATE TOPICAL Apply to affected area. 1 po* HYDROCHLOROTHIAZIDE 25 MG TAB* IBUPROFEN 800 MG TABLET LISINOPRIL 30 MG TABLET RISPERIDONE 3 MG TABLET TOPIRAMATE 50 MG TABLET ZOSTAVAX (PF) 19,400 UNIT/0.6* Progress Notes: Teja Ortega PT, PT 11/11/2017 1:09 PM Signed Episode Visit Count: 9 Therapist That Will Oversee The Plan Of Care: Teja Ortega PT Start of Care Date: 09/15/17 Onset Date: 03/17/17 Plan of Care Certification Date: 09/15/17 Patient Identified by Name and Date of : Yes REHABILITATION AND SPORTS THERAPY PHYSICAL THERAPY DISCONTINUANCE OF CARE PLAN OF CARE UPDATE: Assessment: Dipesh Bermudez is discontinued from Physical Therapy services due to goal achievement and maximal benefit.. Patient was seen for 9 visits from Start of Care Date: 09/15/17 to 11/11/2017 and treatment included: Therapeutic exercise, Therapeutic activities, Self-mcc management, Patient/Family/Caregiver Education and Chronic pain rehabilitation program. UPDATED 11/11/17 Goals for Episode of Care: created on 09/15/17 through 11/15/17 Independent in home exercises. MET Patient will decrease pain rating by 2 points to meet minimal clinical important difference for numeric pain rating scale. MET Sleep through night without pain/symptoms. MET Knowledgeable regarding prophylaxis. MET Patient will increase strength of bilateral upper and lower extremities to 4->4+/5 to allow for perform ADLs. Partially MET Patient will increase flexibility/AROM of cervical and lumbar spine by 25% all planes to decrease pain. Met. Patient will improve his/her AM-PAC T-scale score by 4 points to indicate a Minimal Clinical Important Difference. MET G CODE REPORTING Based on clinical assessment and the score on the AM-PAC Scale Score Assessment Tool, the G code and corresponding severity modifiers are documented below. MET Evaluation: 09/16/2017 Current Status: Mobility: Walking and Moving Around: G8978 CK 40-59% impaired Goal Status: Mobility: Walking and Moving Around: G8979 CK 40-59% impaired MET 11/11/17 AM-PAC Basic Mobility Adaptive Form score = 41; 33% Goal status G8979 CK DC status G8980 CJ SUBJECTIVE: Patient presents without any complaints of pain today. He is agreeable with today being his last PT session. Arrives to PT via motorized scooter. Pain Score: 0/10 Pain Location: Low Back/Lumbar Spine - Right;Low Back/Lumbar Spine - Left Post Treatment Pain Score: 0/10 Pain Location: Low Back/Lumbar Spine - Right;Low Back/Lumbar Spine - Left OBJECTIVE MEASURES WITH LEVEL OF FUNCTION: Trunk AROM: Flexion = min loss Extension = mod loss Side bending = mod loss bilaterally Cervical AROM: Flexion = WFL Extension = major loss Rotation = min loss right, mod loss left Side bending = mod loss right, major loss left Strength Right Left Hip flexion 4-/5 4/5 Knee extension 4/5 4/5 Knee flexion 4-/5 4-/5 Ankle DF 4/5 4/5 Ankle PF 4-/5 4-/5 Shoulders 4/5 4/5 Elbows 4/5 4/5 AM-PAC score = 41; 33% TREATMENT: Therapeutic Exercise: 1: NuStep L 5-7, 8 min 2: Seated roll outs with 75 cm ball 10 reps, 10 sec hold 3: Seated roll outs to the right 10 reps, 10 sec hold 4: Seated thoracic rotation right 10 reps, 5 sec hold 8: Standing hamstring stretch 2X each leg for 30 seconds ea 9: Pelvic Tilts 10X with 5 second squeeze 10: trunk Rotation 10X2 with BLE's elevated on 65 cm ball 11: prone lying -> prone prop 2 min 13: Calf Stretch on slant board for 30 sec X 2 14: Prone knee curls 1 1/2 lb 10 reps, 2 sets bilateral 15: SKTC stretch 15 sec ea 5X 16: Bridges 10X2 with 5 sec hold with BLE's elevated on 65 cm ball 17: DKTC 10X2 with 65 cm ball 18: Cervical ROM ex's 5X ea: flex, extend, SB, Rot ea. direction 19: Cervical stretching CW and CW X 3 20: Trunk SB stretch seated L AND R 3X ea for 10 sec Skilled Intervention: Patient was educated in proper exercise technique and purpose for exercises. Skilled judgment was provided in selection of appropriate interventions. Jacky: Los: Therapeutic Exercise (48284): 1:1 time: 50 minutes (3 units: 38-52 mins) Total time: 50 minutes Teja Ortega PT CNTHERAPY Observed: 11/04/2017 Status: COMPLETED Source: [place] 9:15 AM CLINIC OTHER CAMPUS REPOSITORY OT/PT/Speech Visit (AKPTRADHA) DIPESH BERMUDEZ ([id number]) 1950 M [facility] Date Time Provider Department 11/04/17 9:15 AM LAZARO ROACH (MARIELA) AKPTRADHA Date Time Provider Department Center 11/04/2017 9:15 AM [id number], DANA (P*AKPTRADHA BAI Reason for Visit: PT Progress Note [4876] Reason For Visit History Recorded Primary Visit Diagnosis:Chronic bilateral low back pain without sciatica [M54.5, G89.29] Other Visit Diagnoses:Neck pain [M54.2] Physical deconditioning [R53.81] Abnormal gait [R26.9] Allergies As of Date: 11/04/2017 Noted Allergy Reaction INSULIN NPH HUMAN ISOPHANE 09/18/2015 14 - Other: See Comments Comments: Other allergic reaction CAUSES HYPERGLYCEMIA Onset Date: 2006 ASA (ASPIRIN) 03/28/2015 5 - Intolerance CODEINE 03/28/2015 5 - Intolerance PENICILLINS 03/28/2015 16 - Unknown Date Reviewed: 09/07/2017 Reviewed by: Jay Chamberlain Ma - Fully Assessed Prescriptions as of 11/04/2017 Sig: AMLODIPINE 10 MG TABLET Take 10 mg by mouth once gulshan* DIVALPROEX ER 500 MG TABLET,E* Take 500 mg by mouth once rochelle* VENTOLIN HFA 90 MCG/ACTUATION* METFORMIN 1,000 MG TABLET LANTUS SOLOSTAR U-100 INSULIN* ALBUTEROL SULFATE 2.5 MG/3 ML* Use 2.5 mg via nebulizer ever* ALBUTEROL SULFATE INHALATION Inhale 1 Puff as instructed f* IPRATROPIUM BROMIDE INHALATION Inhale as instructed four ti* KETOCONAZOLE 2 % SHAMPOO Apply 1 application to affect* LANTUS SUBCUTANEOUS Inject 45 Units/mL subcutaneo* METFORMIN 500 MG TABLET Take 1,000 mg by mouth twice * MUPIROCIN 2 % TOPICAL OINTMENT Apply 1 application to affect* INSULIN ASPART U-100 100 UNI* Inject 12 Units subcutaneousl* POLYETHYLENE GLYCOL 3350 ORAL Take 17 g by mouth once daily* TOLNAFTATE TOPICAL Apply to affected area. 1 po* HYDROCHLOROTHIAZIDE 25 MG TAB* IBUPROFEN 800 MG TABLET LISINOPRIL 30 MG TABLET RISPERIDONE 3 MG TABLET TOPIRAMATE 50 MG TABLET ZOSTAVAX (PF) 19,400 UNIT/0.6* Progress Notes: Lazaro Roach PTA, PT ASSIST 11/04/2017 1:37 PM Signed Episode Visit Count: 8 Therapist That Will Oversee The Plan Of Care: Teja Ortega PT Start of Care Date: 09/15/17 Onset Date: 03/17/17 Plan of Care Certification Date: 09/15/17 Patient Identified by Name and Date of : Yes Surgical Procedure: none regarding spine REHABILITATION AND SPORTS THERAPY PHYSICAL THERAPY PROGRESS REPORT PLAN OF CARE UPDATE: Assessment: Dipesh Bermudez exhibits improvements in Trunk ROM AND BLE/BUE strengthening. He continues to be limited with walking in the house and physical activities. He is progressing as expected towards his therapy goals as demonstrated by: home exercise program compliance, pain levels, documented subjective information on progress, documented objective information regarding patient reported outcome measures and appointment compliance. He will benefit from continued skilled therapy requiring further physical therapy in order to further improve neck AND back pain. Functional gains: Improved postural awareness Decreased intensity of pain Decreased frequency of pain Goals for Episode of Care: created on 09/15/17 through 11/15/17 Independent in home exercises. Patient will decrease pain rating by 2 points to meet minimal clinical important difference for numeric pain rating scale. Sleep through night without pain/symptoms. Knowledgeable regarding prophylaxis. Patient will increase strength of bilateral upper and lower extremities to 4->4+/5 to allow for perform ADLs. Patient will increase flexibility/AROM of cervical and lumbar spine by 25% all planes to decrease pain. Patient will improve his/her AM-PAC T-scale score by 4 points to indicate a Minimal Clinical Important Difference. G CODE REPORTING Based on clinical assessment and the score on the AM-PAC Scale Score Assessment Tool, the G code and corresponding severity modifiers are documented below. Evaluation: 09/16/2017 Current Status: Mobility: Walking and Moving Around: G8978 CK 40-59% impaired Goal Status: Mobility: Walking and Moving Around: G8979 CK 40-59% impaired Planned Interventions, Frequency, and Duration: 2x/week, 8 weeks Total Number of Visits Planned: 16 Patient to be seen for Therapeutic exercise;Neuromuscular re-education;Manual therapy;Therapeutic activities;Self-mcc management;Patient/Family/Caregiver Education;Modalities;Body Mechanics Training (moist heat vs ice prn) PLAN FOR NEXT VISIT: Continue with posture education. Initiate therapeutic exercises for range of motion, flexibility and lumbar stabilization/strengthening Prognosis: Fair Fair due to: multiple co- morbidities;poor understanding of deficits SUBJECTIVE: Pt. c/o of 2-3/10 neck pain this date, no c/o of LBP. Pain Score: 0/10 Pain Location: Low Back/Lumbar Spine - Left;Low Back/Lumbar Spine - Right Post Treatment Pain Score: 0/10 Pain Location: Low Back/Lumbar Spine - Right;Low Back/Lumbar Spine - Left Spine History Symptoms Location at Onset: Neck;Back Symptoms Since Onset: Unchanged Pain is Worse Always: Lying Pain is Worse Sometimes: Sitting Pain is Better Always: Standing;Walking (standing or walking short intervals;using recliner) Previous Episodes: No Sleeping Position: Side lying left > right Sleep Affected by Pain: Pain keeps from falling asleep;Pain awakens Red Flags Vertebral Fracture Clinical Reasoning: No identified risk factors Abdominal Aortic Aneurysm Red Flags: Age >60 Abdominal Aortic Aneurysm Clinical Reasoning: Proceed with caution Cancer Red Flags: Age >50 or <20 Cancer Clinical Reasoning: Proceed with caution Infection Clinical Reasoning: No identified risk factors. Cauda Equina Syndrome Clinical Reasoning: No identified risk factors. Red Flags - Cervical Cancer Red Flags: Age >50 or <20 Cancer Clinical Reasoning: Proceed with caution Infection Clinical Reasoning: No identified risk factors. OBJECTIVE MEASURES WITH LEVEL OF FUNCTION: Cognition Cognition: Follows Commands Posture / Alignment Posture: Forward head;Rounded shoulders;Flattened thoracic spine Gait Gait Device: None (for short distance;uses scooter for longer distances) Balance Static Sitting Balance: good Spine Palpation R Thoracic Spine Palpation Tenderness: Paraspinals;Levator Scapulae L Thoracic Spine Palpation Tenderness: Paraspinals;Levator Scapulae R Lumbar Spine Palpation Tenderness: Paraspinals;Spinous Process (midline L2-L5 as well as transverse processes at same levels) L Lumbar Spine Palpation Tenderness: Paraspinals;Spinous Process (midline L2-L5 as well as transverse processes at same levels) Sensation - Lumbar Sensation: Grossly Intact (c/o N/T L fingers->elbow since his brain surgery) Lumbar Spine AROM Lumbar Flexion: Moderate limitation Lumbar Extension: Major limitation (painful) Lumbar R Side-Bend: Major limitation (painful) Lumbar L Side-Bend: Major limitation (painful) Static Testing - Lumbar Sit Slouched: worse Sit Erect: better (with small lumbar roll) LE Strength R Hip Flexion (L2): 3+/5 R Knee Extension (L3): 4-/5 R Knee Flexion: 4-/5 R Ankle Dorsiflexion (L4): 4-/5 R Ankle Plantar Flexion: 4-/5 L Hip Flexion (L2): 3+/5 L Knee Extension (L3): 4-/5 L Knee Flexion: 3+/5 L Ankle Dorsiflexion (L4): 4-/5 L Ankle Plantar Flexion: 4-/5 Sensory Vision Deficits: Wears glasses;Diplopia AM-PAC Basic Mobility Adaptive 56.13 Progress Report: 11/04/2017 Current Status: Mobility: Walking and Moving Around: G8978 20-39% impaired Goal Status: Mobility: Walking and Moving Around: G8979 20-39% impaired TREATMENT: Therapeutic Exercise: 1: NuStep L 10, 8 min 2: Seated roll outs with 75 cm ball 10 reps, 10 sec hold 3: Seated roll outs to the right 10 reps, 10 sec hold 4: Seated thoracic rotation right 10 reps, 5 sec hold 8: Standing hamstring stretch 2X each leg for 30 seconds ea 9: Pelvic Tilts 10X with 5 second squeeze 10: trunk Rotation 10X2 with BLE's elevated on 65 cm ball 11: prone lying -> prone prop 2 min 12: LAQ 1 1/2 lbs 10 rep, 2 sets bilateral 13: Calf Stretch on slant board for 30 sec X 2 14: Prone knee curls 1 1/2 lb 10 reps, 2 sets bilateral 15: SKTC stretch 15 sec ea 5X 16: Bridges 10X2 with 5 sec hold with BLE's elevated on 65 cm ball 17: DKTC 10X2 with 65 cm ball 18: Cervical ROM ex's 5X ea: flex, extend, SB, Rot ea. direction 19: Cervical stretching CW and CW X 3 20: Trunk SB stretch seated L AND R 3X ea for 10 sec Skilled Intervention: Patient was educated in proper exercise technique and purpose for exercises. Reviewed and educated patient on additions/changes for home exercise program as above. Skilled judgment was provided in selection of appropriate interventions. Provided written instruction for home exercise program to facilitate proper performance and compliance. Correct performance of therapeutic exercises was facilitated with verbal and visual cuing. Billing: Los: Therapeutic Exercise ([id number]): 1:1 time: 55 minutes (4 units: 53-67 mins) Total time: 55 minutes Lazaro Roach PTA PROGRESS Observed: 11/04/2017 Status: COMPLETED Source: [place] 9:[address] [facility] OTHER CAMPUS REPOSITORY [facility] ID: [id number] Author: Lazaro Roach PT ASSIST Service: (none) Author Type: Core Driller Type: Progress Notes Filed: 11/04/2017 1:37 PM Note Text: Episode Visit Count: 8 Therapist That Will Oversee The Plan Of Care: Teja Ortgea PT Start of Care Date: 09/15/17 Onset Date: 03/17/17 Plan of Care Certification Date: 09/15/17 Patient Identified by Name and Date of : Yes Surgical Procedure: none regarding spine REHABILITATION AND SPORTS THERAPY PHYSICAL THERAPY PROGRESS REPORT PLAN OF CARE UPDATE: Assessment: Dipesh Bermudez exhibits improvements in Trunk ROM AND BLE/BUE strengthening. He continues to be limited with walking in the house and physical activities. He is progressing as expected towards his therapy goals as demonstrated by: home exercise program compliance, pain levels, documented subjective information on progress, documented objective information regarding patient reported outcome measures and appointment compliance. He will benefit from continued skilled therapy requiring further physical therapy in order to further improve neck AND back pain. Functional gains: Improved postural awareness Decreased intensity of pain Decreased frequency of pain Goals for Episode of Care: created on 09/15/17 through 11/15/17 Independent in home exercises. Patient will decrease pain rating by 2 points to meet minimal clinical important difference for numeric pain rating scale. Sleep through night without pain/symptoms. Knowledgeable regarding prophylaxis. Patient will increase strength of bilateral upper and lower extremities to 4->4+/5 to allow for perform ADLs. Patient will increase flexibility/AROM of cervical and lumbar spine by 25% all planes to decrease pain. Patient will improve his/her AM-PAC T-scale score by 4 points to indicate a Minimal Clinical Important Difference. G CODE REPORTING Based on clinical assessment and the score on the AM-PAC Scale Score Assessment Tool, the G code and corresponding severity modifiers are documented below. Evaluation: 09/16/2017 Current Status: Mobility: Walking and Moving Around: G8978 CK 40-59% impaired Goal Status: Mobility: Walking and Moving Around: G8979 CK 40-59% impaired Planned Interventions, Frequency, and Duration: 2x/week, 8 weeks Total Number of Visits Planned: 16 Patient to be seen for Therapeutic exercise;Neuromuscular re-education;Manual therapy;Therapeutic activities;Self-mcc management;Patient/Family/Caregiver Education;Modalities;Body Mechanics Training (moist heat vs ice prn) PLAN FOR NEXT VISIT: Continue with posture education. Initiate therapeutic exercises for range of motion, flexibility and lumbar stabilization/strengthening Prognosis: Fair Fair due to: multiple co- morbidities;poor understanding of deficits SUBJECTIVE: Pt. c/o of 2-3/10 neck pain this date, no c/o of LBP. Pain Score: 0/10 Pain Location: Low Back/Lumbar Spine - Left;Low Back/Lumbar Spine - Right Post Treatment Pain Score: 0/10 Pain Location: Low Back/Lumbar Spine - Right;Low Back/Lumbar Spine - Left Spine History Symptoms Location at Onset: Neck;Back Symptoms Since Onset: Unchanged Pain is Worse Always: Lying Pain is Worse Sometimes: Sitting Pain is Better Always: Standing;Walking (standing or walking short intervals;using recliner) Previous Episodes: No Sleeping Position: Side lying left > right Sleep Affected by Pain: Pain keeps from falling asleep;Pain awakens Red Flags Vertebral Fracture Clinical Reasoning: No identified risk factors Abdominal Aortic Aneurysm Red Flags: Age >60 Abdominal Aortic Aneurysm Clinical Reasoning: Proceed with caution Cancer Red Flags: Age >50 or <20 Cancer Clinical Reasoning: Proceed with caution Infection Clinical Reasoning: No identified risk factors. Cauda Equina Syndrome Clinical Reasoning: No identified risk factors. Red Flags - Cervical Cancer Red Flags: Age >50 or <20 Cancer Clinical Reasoning: Proceed with caution Infection Clinical Reasoning: No identified risk factors. OBJECTIVE MEASURES WITH LEVEL OF FUNCTION: Cognition Cognition: Follows Commands Posture / Alignment Posture: Forward head;Rounded shoulders;Flattened thoracic spine Gait Gait Device: None (for short distance;uses scooter for longer distances) Balance Static Sitting Balance: good Spine Palpation R Thoracic Spine Palpation Tenderness: Paraspinals;Levator Scapulae L Thoracic Spine Palpation Tenderness: Paraspinals;Levator Scapulae R Lumbar Spine Palpation Tenderness: Paraspinals;Spinous Process (midline L2-L5 as well as transverse processes at same levels) L Lumbar Spine Palpation Tenderness: Paraspinals;Spinous Process (midline L2-L5 as well as transverse processes at same levels) Sensation - Lumbar Sensation: Grossly Intact (c/o N/T L fingers->elbow since his brain surgery) Lumbar Spine AROM Lumbar Flexion: Moderate limitation Lumbar Extension: Major limitation (painful) Lumbar R Side-Bend: Major limitation (painful) Lumbar L Side-Bend: Major limitation (painful) Static Testing - Lumbar Sit Slouched: worse Sit Erect: better (with small lumbar roll) LE Strength R Hip Flexion (L2): 3+/5 R Knee Extension (L3): 4-/5 R Knee Flexion: 4-/5 R Ankle Dorsiflexion (L4): 4-/5 R Ankle Plantar Flexion: 4-/5 L Hip Flexion (L2): 3+/5 L Knee Extension (L3): 4-/5 L Knee Flexion: 3+/5 L Ankle Dorsiflexion (L4): 4-/5 L Ankle Plantar Flexion: 4-/5 Sensory Vision Deficits: Wears glasses;Diplopia AM-PAC Basic Mobility Adaptive 56.13 Progress Report: 11/04/2017 Current Status: Mobility: Walking and Moving Around: G8978 20-39% impaired Goal Status: Mobility: Walking and Moving Around: G8979 20-39% impaired TREATMENT: Therapeutic Exercise: 1: NuStep L 10, 8 min 2: Seated roll outs with 75 cm ball 10 reps, 10 sec hold 3: Seated roll outs to the right 10 reps, 10 sec hold 4: Seated thoracic rotation right 10 reps, 5 sec hold 8: Standing hamstring stretch 2X each leg for 30 seconds ea 9: Pelvic Tilts 10X with 5 second squeeze 10: trunk Rotation 10X2 with BLE's elevated on 65 cm ball 11: prone lying -> prone prop 2 min 12: LAQ 1 1/2 lbs 10 rep, 2 sets bilateral 13: Calf Stretch on slant board for 30 sec X 2 14: Prone knee curls 1 1/2 lb 10 reps, 2 sets bilateral 15: SKTC stretch 15 sec ea 5X 16: Bridges 10X2 with 5 sec hold with BLE's elevated on 65 cm ball 17: DKTC 10X2 with 65 cm ball 18: Cervical ROM ex's 5X ea: flex, extend, SB, Rot ea. direction 19: Cervical stretching CW and CW X 3 20: Trunk SB stretch seated L AND R 3X ea for 10 sec Skilled Intervention: Patient was educated in proper exercise technique and purpose for exercises. Reviewed and educated patient on additions/changes for home exercise program as above. Skilled judgment was provided in selection of appropriate interventions. Provided written instruction for home exercise program to facilitate proper performance and compliance. Correct performance of therapeutic exercises was facilitated with verbal and visual cuing. Billing: Los: Therapeutic Exercise ([id number]): 1:1 time: 55 minutes (4 units: 53-67 mins) Total time: 55 minutes Lazaro Roach PTA PROGRESS Observed: 11/01/2017 Status: COMPLETED Source: [place] 1:26 PM CLINIC OTHER CAMPUS REPOSITORY [facility] ID: [id number] Author: Lazaro Richter) Flaquita PT ASSIST Service: (none) Author Type: Core Driller Type: Progress Notes Filed: 11/01/2017 1:48 PM Note Text: Episode Visit Count: 7 Therapist That Will Oversee The Plan Of Care: Teja Ortega PT Start of Care Date: 09/15/17 Onset Date: 03/17/17 Plan of Care Certification Date: 09/15/17 Surgical Procedure: none regarding spine REHABILITATION AND SPORTS THERAPY PHYSICAL THERAPY TREATMENT NOTE ASSESSMENT: Dipesh Bermudez demonstrated improvements in core strengthening/Trunk ROM AND no c/o of low back pain. The patient will continue to benefit from skilled physical therapy for improving strengthening for improved functional mobility returning pt. To previous level of function. PLAN FOR NEXT VISIT: Monthly Progress Report Due Next Visit SUBJECTIVE: Pt. Had no c/o of LBP this date. Pt. Reported that physical therapy is helping him be more mobile and has decreased LBP. Pain Score: 0/10 Pain Location: Low Back/Lumbar Spine - Left;Low Back/Lumbar Spine - Right Post Treatment Pain Score: 0/10 OBJECTIVE MEASURES WITH LEVEL OF FUNCTION: Trunk AROM Functional Limitation Forward Bending Moderate limitation Backward Bending Minimal limitation Side Bending (Right) Moderate limitation Side Bending (Left) Moderate limitation Trunk Rotation (Left) Moderate limitation Trunk Rotation (Right) Moderate limitation Abdominal Strength: 3+/5----4-/5 TREATMENT: Therapeutic Exercise: 1: NuStep L 9, 8 min 2: Seated roll outs with 75 cm ball 10 reps, 10 sec hold 3: Seated roll outs to the right 10 reps, 10 sec hold 4: Seated thoracic rotation right 10 reps, 5 sec hold 8: Standing hamstring stretch 2X each leg for 30 seconds ea 9: Pelvic Tilts 10X with 5 second squeeze 10: trunk Rotation 10X2 with BLE's elevated on 65 cm ball 11: prone lying -> prone prop 2 min 12: LAQ 1 1/2 lbs 10 rep, 2 sets bilateral 13: Calf Stretch on slant board for 30 sec X 2 14: Prone knee curls 1 1/2 lb 10 reps, 2 sets bilateral 15: SKTC stretch 15 sec ea 5X 16: Bridges 10X2 with 5 sec hold with BLE's elevated on 65 cm ball 17: DKTC 10X2 with 65 cm ball 18: Cervical ROM ex's 5X ea: flex, extend, SB, Rot ea. direction Skilled Intervention: Patient was educated in proper exercise technique and purpose for exercises. Reviewed and educated patient on additions/changes for home exercise program as above. Skilled judgment was provided in selection of appropriate interventions. Correct performance of therapeutic exercises was facilitated with verbal and visual cuing. Billing: Los: Therapeutic Exercise ([id number]): 1:1 time: 45 minutes (3 units: 38-52 mins) Total time: 45 minutes Lazaro Roach PTA CNTHERAPY Observed: 11/01/2017 Status: COMPLETED Source: [place] 9:00 AM CLINIC OTHER CAMPUS REPOSITORY OT/PT/Speech Visit (AKPTLK) DIPESH BERMUDEZ ([id number]) 1950 M [facility] Date Time Provider Department 11/01/17 9:00 AM LAZARO ROACH (MARIELA) AKPTLZena Date Time Provider Department Center 11/01/2017 9:00 AM [id number], DANA (P*AKPTLZena BAI Reason for Visit: Physical Therapy [503] Primary Visit Diagnosis:Chronic bilateral low back pain without sciatica [M54.5, G89.29] Other Visit Diagnoses:Neck pain [M54.2] Physical deconditioning [R53.81] Abnormal gait [R26.9] Allergies As of Date: 11/01/2017 Noted Allergy Reaction INSULIN NPH HUMAN ISOPHANE 09/18/2015 14 - Other: See Comments Comments: Other allergic reaction CAUSES HYPERGLYCEMIA Onset Date: 2006 ASA (ASPIRIN) 03/28/2015 5 - Intolerance CODEINE 03/28/2015 5 - Intolerance PENICILLINS 03/28/2015 16 - Unknown Date Reviewed: 09/07/2017 Reviewed by: Jay Chamberlain Ma - Fully Assessed Prescriptions as of 11/01/2017 Sig: AMLODIPINE 10 MG TABLET Take 10 mg by mouth once gulshan* DIVALPROEX ER 500 MG TABLET,E* Take 500 mg by mouth once rochelle* VENTOLIN HFA 90 MCG/ACTUATION* METFORMIN 1,000 MG TABLET LANTUS SOLOSTAR U-100 INSULIN* ALBUTEROL SULFATE 2.5 MG/3 ML* Use 2.5 mg via nebulizer ever* ALBUTEROL SULFATE INHALATION Inhale 1 Puff as instructed f* IPRATROPIUM BROMIDE INHALATION Inhale as instructed four ti* KETOCONAZOLE 2 % SHAMPOO Apply 1 application to affect* LANTUS SUBCUTANEOUS Inject 45 Units/mL subcutaneo* METFORMIN 500 MG TABLET Take 1,000 mg by mouth twice * MUPIROCIN 2 % TOPICAL OINTMENT Apply 1 application to affect* INSULIN ASPART U-100 100 UNI* Inject 12 Units subcutaneousl* POLYETHYLENE GLYCOL 3350 ORAL Take 17 g by mouth once daily* TOLNAFTATE TOPICAL Apply to affected area. 1 po* HYDROCHLOROTHIAZIDE 25 MG TAB* IBUPROFEN 800 MG TABLET LISINOPRIL 30 MG TABLET RISPERIDONE 3 MG TABLET TOPIRAMATE 50 MG TABLET ZOSTAVAX (PF) 19,400 UNIT/0.6* Progress Notes: Lazaro Roach PTA, PT ASSIST 11/01/2017 1:48 PM Signed Episode Visit Count: 7 Therapist That Will Oversee The Plan Of Care: Teja Ortega PT Start of Care Date: 09/15/17 Onset Date: 03/17/17 Plan of Care Certification Date: 09/15/17 Surgical Procedure: none regarding spine REHABILITATION AND SPORTS THERAPY PHYSICAL THERAPY TREATMENT NOTE ASSESSMENT: Dipesh Bermudez demonstrated improvements in core strengthening/Trunk ROM AND no c/o of low back pain. The patient will continue to benefit from skilled physical therapy for improving strengthening for improved functional mobility returning pt. To previous level of function. PLAN FOR NEXT VISIT: Monthly Progress Report Due Next Visit SUBJECTIVE: Pt. Had no c/o of LBP this date. Pt. Reported that physical therapy is helping him be more mobile and has decreased LBP. Pain Score: 0/10 Pain Location: Low Back/Lumbar Spine - Left;Low Back/Lumbar Spine - Right Post Treatment Pain Score: 0/10 OBJECTIVE MEASURES WITH LEVEL OF FUNCTION: Trunk AROM Functional Limitation Forward Bending Moderate limitation Backward Bending Minimal limitation Side Bending (Right) Moderate limitation Side Bending (Left) Moderate limitation Trunk Rotation (Left) Moderate limitation Trunk Rotation (Right) Moderate limitation Abdominal Strength: 3+/5----4-/5 TREATMENT: Therapeutic Exercise: 1: NuStep L 9, 8 min 2: Seated roll outs with 75 cm ball 10 reps, 10 sec hold 3: Seated roll outs to the right 10 reps, 10 sec hold 4: Seated thoracic rotation right 10 reps, 5 sec hold 8: Standing hamstring stretch 2X each leg for 30 seconds ea 9: Pelvic Tilts 10X with 5 second squeeze 10: trunk Rotation 10X2 with BLE's elevated on 65 cm ball 11: prone lying -> prone prop 2 min 12: LAQ 1 1/2 lbs 10 rep, 2 sets bilateral 13: Calf Stretch on slant board for 30 sec X 2 14: Prone knee curls 1 1/2 lb 10 reps, 2 sets bilateral 15: SKTC stretch 15 sec ea 5X 16: Bridges 10X2 with 5 sec hold with BLE's elevated on 65 cm ball 17: DKTC 10X2 with 65 cm ball 18: Cervical ROM ex's 5X ea: flex, extend, SB, Rot ea. direction Skilled Intervention: Patient was educated in proper exercise technique and purpose for exercises. Reviewed and educated patient on additions/changes for home exercise program as above. Skilled judgment was provided in selection of appropriate interventions. Correct performance of therapeutic exercises was facilitated with verbal and visual cuing. Billing: Los: Therapeutic Exercise ([id number]): 1:1 time: 45 minutes (3 units: 38-52 mins) Total time: 45 minutes Lazaro Roach PTA PROGRESS Observed: 10/19/2017 Status: COMPLETED Source: [place] 10:[address] [facility] OTHER CAMPUS REPOSITORY O ID: [id number] Author: Teja (Pt) SHANNA Ortega Service: (none) Author Type: Physical Therapist Type: Progress Notes Filed: 10/19/2017 5:19 PM Note Text: Episode Visit Count: 6 Therapist That Will Oversee The Plan Of Care: Teja Ortega PT Start of Care Date: 09/15/17 Onset Date: 03/17/17 Plan of Care Certification Date: 09/15/17 Patient Identified by Name and Date of : Yes REHABILITATION AND SPORTS THERAPY PHYSICAL THERAPY TREATMENT NOTE ASSESSMENT: Dipesh Bermudez demonstrated improvements in back pain levels. The patient will continue to benefit from continued skilled physical therapy for progressive therapeutic exercises to address deficits for increased function. PLAN FOR NEXT VISIT: Continue to progress therapeutic exercise as tolerated. SUBJECTIVE: Patient presented to PT via motorized scooter. He voiced no complaints this session. Pain Score: 0/10 Pain Location: Low Back/Lumbar Spine - Right;Low Back/Lumbar Spine - Left;Neck OBJECTIVE MEASURES WITH LEVEL OF FUNCTION: Patient tolerated exercise progression this session without difficulty or complaint. TREATMENT: Therapeutic Exercise: 1: NuStep L 9, 7 min 2: Seated roll outs with 75 cm ball 10 reps, 10 sec hold 3: Seated roll outs to the right 10 reps, 10 sec hold 4: Seated thoracic rotation right 10 reps, 5 sec hold 8: Standing hamstring stretch 2X each leg for 30 seconds ea 9: Pelvic Tilts 10X with 5 second squeeze 10: trunk Rotation 10X2 with BLE's elevated on 65 cm ball 11: prone lying -> prone prop 2 min 12: LAQ 1 1/2 lbs 10 rep, 2 sets bilateral 13: Calf Stretch on slant board for 30 sec X 2 14: Prone knee curls 1 1/2 lb 10 reps, 2 sets bilateral 15: SKTC stretch 15 sec ea 5X 16: Bridges 10X2 with 5 sec hold 17: DKTC 10X2 with 65 cm ball 18: Cervical ROM ex's 5X ea: flex, extend, SB, Rot ea. direction Skilled Intervention: Patient was educated in proper exercise technique and purpose for exercises. Skilled judgment was provided in selection of appropriate interventions. Correct performance of therapeutic exercises was facilitated with verbal and visual cuing. Billing: Los: Therapeutic Exercise ([id number]): 1:1 time: 45 minutes (3 units: 38-52 mins) Total time: 45 minutes Teja Ortega PT CNTHERAPY Observed: 10/19/2017 Status: COMPLETED Source: [place] 10:00 AM [facility] OTHER CAMPUS REPOSITORY OT/PT/Speech Visit (AKPTLK) DIPESH BERMUDEZ ([id number]) 1950 M [facility] Date Time Provider Department 10/19/17 10:00 AM TEJA ORTEGA (PT) [place] Date Time Provider Department Center 10/19/2017 10:00 AM [id number] ORTEGA *AKRAMIN BAI Reason for Visit: Physical Therapy [503] Primary Visit Diagnosis:Chronic bilateral low back pain without sciatica [M54.5, G89.29] Other Visit Diagnoses:Neck pain [M54.2] Physical deconditioning [R53.81] Abnormal gait [R26.9] Allergies As of Date: 10/19/2017 Noted Allergy Reaction INSULIN NPH HUMAN ISOPHANE 09/18/2015 14 - Other: See Comments Comments: Other allergic reaction CAUSES HYPERGLYCEMIA Onset Date: 2006 ASA (ASPIRIN) 03/28/2015 5 - Intolerance CODEINE 03/28/2015 5 - Intolerance PENICILLINS 03/28/2015 16 - Unknown Date Reviewed: 09/07/2017 Reviewed by: Jay Chamberlain Ma - Fully Assessed Prescriptions as of 10/19/2017 Sig: AMLODIPINE 10 MG TABLET Take 10 mg by mouth once gulshan* DIVALPROEX ER 500 MG TABLET,E* Take 500 mg by mouth once rochelel* VENTOLIN HFA 90 MCG/ACTUATION* METFORMIN 1,000 MG TABLET LANTUS SOLOSTAR U-100 INSULIN* ALBUTEROL SULFATE 2.5 MG/3 ML* Use 2.5 mg via nebulizer ever* ALBUTEROL SULFATE INHALATION Inhale 1 Puff as instructed f* IPRATROPIUM BROMIDE INHALATION Inhale as instructed four ti* KETOCONAZOLE 2 % SHAMPOO Apply 1 application to affect* LANTUS SUBCUTANEOUS Inject 45 Units/mL subcutaneo* METFORMIN 500 MG TABLET Take 1,000 mg by mouth twice * MUPIROCIN 2 % TOPICAL OINTMENT Apply 1 application to affect* INSULIN ASPART U-100 100 UNI* Inject 12 Units subcutaneousl* POLYETHYLENE GLYCOL 3350 ORAL Take 17 g by mouth once daily* TOLNAFTATE TOPICAL Apply to affected area. 1 po* HYDROCHLOROTHIAZIDE 25 MG TAB* IBUPROFEN 800 MG TABLET LISINOPRIL 30 MG TABLET RISPERIDONE 3 MG TABLET TOPIRAMATE 50 MG TABLET ZOSTAVAX (PF) 19,400 UNIT/0.6* Progress Notes: Teja Ortega PT, PT 10/19/2017 5:19 PM Signed Episode Visit Count: 6 Therapist That Will Oversee The Plan Of Care: Teja Ortega PT Start of Care Date: 09/15/17 Onset Date: 03/17/17 Plan of Care Certification Date: 09/15/17 Patient Identified by Name and Date of : Yes REHABILITATION AND SPORTS THERAPY PHYSICAL THERAPY TREATMENT NOTE ASSESSMENT: Dipesh Bermudez demonstrated improvements in back pain levels. The patient will continue to benefit from continued skilled physical therapy for progressive therapeutic exercises to address deficits for increased function. PLAN FOR NEXT VISIT: Continue to progress therapeutic exercise as tolerated. SUBJECTIVE: Patient presented to PT via motorized scooter. He voiced no complaints this session. Pain Score: 0/10 Pain Location: Low Back/Lumbar Spine - Right;Low Back/Lumbar Spine - Left;Neck OBJECTIVE MEASURES WITH LEVEL OF FUNCTION: Patient tolerated exercise progression this session without difficulty or complaint. TREATMENT: Therapeutic Exercise: 1: NuStep L 9, 7 min 2: Seated roll outs with 75 cm ball 10 reps, 10 sec hold 3: Seated roll outs to the right 10 reps, 10 sec hold 4: Seated thoracic rotation right 10 reps, 5 sec hold 8: Standing hamstring stretch 2X each leg for 30 seconds ea 9: Pelvic Tilts 10X with 5 second squeeze 10: trunk Rotation 10X2 with BLE's elevated on 65 cm ball 11: prone lying -> prone prop 2 min 12: LAQ 1 1/2 lbs 10 rep, 2 sets bilateral 13: Calf Stretch on slant board for 30 sec X 2 14: Prone knee curls 1 1/2 lb 10 reps, 2 sets bilateral 15: SKTC stretch 15 sec ea 5X 16: Bridges 10X2 with 5 sec hold 17: DKTC 10X2 with 65 cm ball 18: Cervical ROM ex's 5X ea: flex, extend, SB, Rot ea. direction Skilled Intervention: Patient was educated in proper exercise technique and purpose for exercises. Skilled judgment was provided in selection of appropriate interventions. Correct performance of therapeutic exercises was facilitated with verbal and visual cuing. Ilaning: Los: Therapeutic Exercise ([id number]): 1:1 time: 45 minutes (3 units: 38-52 mins) Total time: 45 minutes Teja Ortega PT PROGRESS Observed: 10/08/2017 Status: COMPLETED Source: [place] 8:31 AM [facility] OTHER CAMPUS REPOSITORY HNO ID: [id number] Author: Lazaro (Mariela) SHANNA Roach ASSIST Service: (none) Author Type: Core Driller Type: Progress Notes Filed: 10/08/2017 10:31 AM Note Text: Episode Visit Count: 5 Therapist That Will Oversee The Plan Of Care: Teja Ortega PT Start of Care Date: 09/15/17 Onset Date: 03/17/17 Plan of Care Certification Date: 09/15/17 REHABILITATION AND SPORTS THERAPY PHYSICAL THERAPY TREATMENT NOTE ASSESSMENT: Dipesh Bermudez demonstrated improvements in cervical ROM. The patient will continue to benefit from continued skilled physical therapy for improving BLE/Core strengthening, cervical and trunk rom, and improving overall functional mobility. PLAN FOR NEXT VISIT: Review posture AND HEP and cont. to add therapeutic exercises for range of motion, flexibility and lumbar stabilization/strengthening SUBJECTIVE: Pt. Reported 0/10 LBP AND neck pain this date. Pt. Stated he had the rash on bilateral arms evaluated [facility] and he stated, I have bed bugs. Pt. Is currently being treated for them. Pain Score: 0/10 Pain Location: Low Back/Lumbar Spine - Right;Low Back/Lumbar Spine - Left;Neck OBJECTIVE MEASURES WITH LEVEL OF FUNCTION: Pt. Able to perform newly added cervical rom AND core exercises without any c/o of increased pain. Cervical AROM Functional Limitation Forward Bending Minimal Fxnl. Limitation Backward Bending Minimal Fxnl Limitation Side Bending (Right) Moderate fxnl Limitation Side Bending (Left) Moderate fxnl limitation Rotation (Right) Moderate fxnl limitation Rotation (Left) Moderate fxnl limitation TREATMENT: Therapeutic Exercise: 1: NuStep L 9, 6 min 3: Seated roll outs to the right 10 reps, 10 sec hold 4: Seated thoracic rotation right 10 reps, 5 sec hold 8: Standing hamstring stretch 2X each leg for 30 seconds ea 9: Pelvic Tilts 10X with 5 second squeeze 10: trunk Rotation 10X2 with BLE's elevated on 65 cm ball 11: prone lying 13: Calf Stretch on slant board for 30 sec X 2 15: SKTC stretch 15 sec ea 5X 16: Bridges 10X with 5 sec hold 17: DKTC 10X2 with 65 cm ball 18: Cervical ROM ex's 5X ea: flex, extend, SB, Rot ea. direction Skilled Intervention: Patient was educated in proper exercise technique and purpose for exercises. Reviewed and educated patient on additions/changes for home exercise program as above. Skilled judgment was provided in selection of appropriate interventions. Correct performance of therapeutic exercises was facilitated with verbal and visual cuing. Billing: [place]: Therapeutic Exercise ([id number]): 1:1 time: 45 minutes (3 units: 38-52 mins) Total time: 45 minutes Lazaro Roach PTA CNTHERAPY Observed: 10/08/2017 Status: COMPLETED Source: [place] 8:00 AM [facility] OTHER CAMPUS REPOSITORY OT/PT/Speech Visit (AKPTLK) DIPESH BERMUDEZ ([id number]) 1950 M [facility] Date Time Provider Department 10/08/17 8:00 AM LAZARO ROACH (MARIELA) AKPTR[facility] Date Time Provider Department Center 10/08/2017 8:00 AM [id number], DANA (P*AKPTRADHA BAI Reason for Visit: Physical Therapy [503] Primary Visit Diagnosis:Chronic bilateral low back pain without sciatica [M54.5, G89.29] Other Visit Diagnoses:Neck pain [M54.2] Physical deconditioning [R53.81] Abnormal gait [R26.9] Allergies As of Date: 10/08/2017 Noted Allergy Reaction INSULIN NPH HUMAN ISOPHANE 09/18/2015 14 - Other: See Comments Comments: Other allergic reaction CAUSES HYPERGLYCEMIA Onset Date: 2006 ASA (ASPIRIN) 03/28/2015 5 - Intolerance CODEINE 03/28/2015 5 - Intolerance PENICILLINS 03/28/2015 16 - Unknown Date Reviewed: 09/07/2017 Reviewed by: Jay Chamberlain Ma - Fully Assessed Prescriptions as of 10/08/2017 Sig: AMLODIPINE 10 MG TABLET Take 10 mg by mouth once gulshan* DIVALPROEX ER 500 MG TABLET,E* Take 500 mg by mouth once rochelle* VENTOLIN HFA 90 MCG/ACTUATION* METFORMIN 1,000 MG TABLET LANTUS SOLOSTAR U-100 INSULIN* ALBUTEROL SULFATE 2.5 MG/3 ML* Use 2.5 mg via nebulizer ever* ALBUTEROL SULFATE INHALATION Inhale 1 Puff as instructed f* IPRATROPIUM BROMIDE INHALATION Inhale as instructed four ti* KETOCONAZOLE 2 % SHAMPOO Apply 1 application to affect* LANTUS SUBCUTANEOUS Inject 45 Units/mL subcutaneo* METFORMIN 500 MG TABLET Take 1,000 mg by mouth twice * MUPIROCIN 2 % TOPICAL OINTMENT Apply 1 application to affect* INSULIN ASPART U-100 100 UNI* Inject 12 Units subcutaneousl* POLYETHYLENE GLYCOL 3350 ORAL Take 17 g by mouth once daily* TOLNAFTATE TOPICAL Apply to affected area. 1 po* HYDROCHLOROTHIAZIDE 25 MG TAB* IBUPROFEN 800 MG TABLET LISINOPRIL 30 MG TABLET RISPERIDONE 3 MG TABLET TOPIRAMATE 50 MG TABLET ZOSTAVAX (PF) 19,400 UNIT/0.6* Progress Notes: Lazaro Roach PTA, PT ASSIST 10/08/2017 10:31 AM Signed Episode Visit Count: 5 Therapist That Will Oversee The Plan Of Care: Teja Ortega PT Start of Care Date: 09/15/17 Onset Date: 03/17/17 Plan of Care Certification Date: 09/15/17 REHABILITATION AND SPORTS THERAPY PHYSICAL THERAPY TREATMENT NOTE ASSESSMENT: Dipesh Bermudez demonstrated improvements in cervical ROM. The patient will continue to benefit from continued skilled physical therapy for improving BLE/Core strengthening, cervical and trunk rom, and improving overall functional mobility. PLAN FOR NEXT VISIT: Review posture AND HEP and cont. to add therapeutic exercises for range of motion, flexibility and lumbar stabilization/strengthening SUBJECTIVE: Pt. Reported 0/10 LBP AND neck pain this date. Pt. Stated he had the rash on bilateral [facility] and he stated, I have bed bugs. Pt. Is currently being treated for them. Pain Score: 0/10 Pain Location: Low Back/Lumbar Spine - Right;Low Back/Lumbar Spine - Left;Neck OBJECTIVE MEASURES WITH LEVEL OF FUNCTION: Pt. Able to perform newly added cervical rom AND core exercises without any c/o of increased pain. Cervical AROM Functional Limitation Forward Bending Minimal Fxnl. Limitation Backward Bending Minimal Fxnl Limitation Side Bending (Right) Moderate fxnl Limitation Side Bending (Left) Moderate fxnl limitation Rotation (Right) Moderate fxnl limitation Rotation (Left) Moderate fxnl limitation TREATMENT: Therapeutic Exercise: 1: NuStep L 9, 6 min 3: Seated roll outs to the right 10 reps, 10 sec hold 4: Seated thoracic rotation right 10 reps, 5 sec hold 8: Standing hamstring stretch 2X each leg for 30 seconds ea 9: Pelvic Tilts 10X with 5 second squeeze 10: trunk Rotation 10X2 with BLE's elevated on 65 cm ball 11: prone lying 13: Calf Stretch on slant board for 30 sec X 2 15: SKTC stretch 15 sec ea 5X 16: Bridges 10X with 5 sec hold 17: DKTC 10X2 with 65 cm ball 18: Cervical ROM ex's 5X ea: flex, extend, SB, Rot ea. direction Skilled Intervention: Patient was educated in proper exercise technique and purpose for exercises. Reviewed and educated patient on additions/changes for home exercise program as above. Skilled judgment was provided in selection of appropriate interventions. Correct performance of therapeutic exercises was facilitated with verbal and visual cuing. Billing: Los: Therapeutic Exercise ([id number]): 1:1 time: 45 minutes (3 units: 38-52 mins) Total time: 45 minutes Lazaro Roach PTA PROGRESS Observed: 10/04/2017 Status: COMPLETED Source: [place] 9:31 AM [facility] OTHER CAMPUS REPOSITORY O ID: [id number] Author: Lazaro Roach PT ASSIST Service: (none) Author Type: Core Driller Type: Progress Notes Filed: 10/04/2017 9:40 AM Note Text: Episode Visit Count: 4 Therapist That Will Oversee The Plan Of Care: Teja Ortgea PT Start of Care Date: 09/15/17 Onset Date: 03/17/17 Plan of Care Certification Date: 09/15/17 REHABILITATION AND SPORTS THERAPY PHYSICAL THERAPY TREATMENT NOTE ASSESSMENT: Dipesh Bermudez has reported little to no back pain before and after tx. Session this date. Pt. Able to perform all exercises without any pain. The patient will continue to benefit from continued skilled physical therapy for improving both cervical and lumbar ROM, strengthening of several muscle groups, posture/body mechanics and returning pt. Back to prior level of function. PLAN FOR NEXT VISIT: Review posture AND HEP and cont. to add therapeutic exercises for range of motion, flexibility and lumbar stabilization/strengthening SUBJECTIVE: Pt. Reported 0/10 low back and neck pain this date. Pain Score: 0/10 Pain Location: Low Back/Lumbar Spine - Right;Low Back/Lumbar Spine - Left;Neck Post Treatment Pain Score: 0/10 Pain Location: Neck;Low Back/Lumbar Spine - Right;Low Back/Lumbar Spine - Left OBJECTIVE MEASURES WITH LEVEL OF FUNCTION: Pt. Able to tolerate the addition of prone lying and prone on elbows without c/o of increased low back pain. TREATMENT: Therapeutic Exercise: 1: NuStep L 8, 6 min 2: Seated roll outs with 75 cm ball 10 reps, 10 sec hold 3: Seated roll outs to the right 10 reps, 10 sec hold 4: Seated thoracic rotation right 10 reps, 5 sec hold 8: Standing hamstring stretch 2X each leg for 30 seconds ea 9: Pelvic Tilts 10X with 5 second squeeze 10: trunk Rotation 10X with BLE's elevated on 65 cm ball 11: prone lying 12: chin tucks 10X 13: Calf Stretch on slant board for 30 sec X 2 14: Pulleys for 2 min. 15: SKTC stretch 15 sec ea 5X Skilled Intervention: Patient was educated in proper exercise technique and purpose for exercises. Reviewed and educated patient on additions/changes for home exercise program as above. Skilled judgment was provided in selection of appropriate interventions. Provided written instruction for home exercise program to facilitate proper performance and compliance. Correct performance of therapeutic exercises was facilitated with verbal and visual cuing. Ilaning: Los: Therapeutic Exercise ([id number]): 1:1 time: 47 minutes (3 units: 38-52 mins) Total time: 47 minutes Lazaro Roach PTA CNTHERAPY Observed: 10/04/2017 Status: COMPLETED Source: [place] 8:15 AM [facility] OTHER CAMPUS REPOSITORY OT/PT/Speech Visit (AKPTLK) DIPESH BERMUDEZ ([id number]) 1950 M [facility] Date Time Provider Department 10/04/17 8:15 AM LAZARO ROACH (PHYSICIAN/ALLERGY/IMMUNOLOGY) [facility] Date Time Provider Department Center 10/04/2017 8:15 AM [id number], DANA (P*AKPTRADHA BAI Reason for Visit: Physical Therapy [503] Primary Visit Diagnosis:Chronic bilateral low back pain without sciatica [M54.5, G89.29] Other Visit Diagnoses:Neck pain [M54.2] Physical deconditioning [R53.81] Abnormal gait [R26.9] Allergies As of Date: 10/04/2017 Noted Allergy Reaction INSULIN NPH HUMAN ISOPHANE 09/18/2015 14 - Other: See Comments Comments: Other allergic reaction CAUSES HYPERGLYCEMIA Onset Date: 2006 ASA (ASPIRIN) 03/28/2015 5 - Intolerance CODEINE 03/28/2015 5 - Intolerance PENICILLINS 03/28/2015 16 - Unknown Date Reviewed: 09/07/2017 Reviewed by: Jay Chamberlain Ma - Fully Assessed Prescriptions as of 10/04/2017 Sig: AMLODIPINE 10 MG TABLET Take 10 mg by mouth once gulshan* DIVALPROEX ER 500 MG TABLET,E* Take 500 mg by mouth once rochelle* VENTOLIN HFA 90 MCG/ACTUATION* METFORMIN 1,000 MG TABLET LANTUS SOLOSTAR U-100 INSULIN* ALBUTEROL SULFATE 2.5 MG/3 ML* Use 2.5 mg via nebulizer ever* ALBUTEROL SULFATE INHALATION Inhale 1 Puff as instructed f* IPRATROPIUM BROMIDE INHALATION Inhale as instructed four ti* KETOCONAZOLE 2 % SHAMPOO Apply 1 application to affect* LANTUS SUBCUTANEOUS Inject 45 Units/mL subcutaneo* METFORMIN 500 MG TABLET Take 1,000 mg by mouth twice * MUPIROCIN 2 % TOPICAL OINTMENT Apply 1 application to affect* INSULIN ASPART U-100 100 UNI* Inject 12 Units subcutaneousl* POLYETHYLENE GLYCOL 3350 ORAL Take 17 g by mouth once daily* TOLNAFTATE TOPICAL Apply to affected area. 1 po* HYDROCHLOROTHIAZIDE 25 MG TAB* IBUPROFEN 800 MG TABLET LISINOPRIL 30 MG TABLET RISPERIDONE 3 MG TABLET TOPIRAMATE 50 MG TABLET ZOSTAVAX (PF) 19,400 UNIT/0.6* Progress Notes: Lazaro Roach, MARIELA, PT ASSIST 10/04/2017 9:40 AM Signed Episode Visit Count: 4 Therapist That Will Oversee The Plan Of Care: Teja Ortega PT Start of Care Date: 09/15/17 Onset Date: 03/17/17 Plan of Care Certification Date: 09/15/17 REHABILITATION AND SPORTS THERAPY PHYSICAL THERAPY TREATMENT NOTE ASSESSMENT: Dipesh Bermudez has reported little to no back pain before and after tx. Session this date. Pt. Able to perform all exercises without any pain. The patient will continue to benefit from continued skilled physical therapy for improving both cervical and lumbar ROM, strengthening of several muscle groups, posture/body mechanics and returning pt. Back to prior level of function. PLAN FOR NEXT VISIT: Review posture AND HEP and cont. to add therapeutic exercises for range of motion, flexibility and lumbar stabilization/strengthening SUBJECTIVE: Pt. Reported 0/10 low back and neck pain this date. Pain Score: 0/10 Pain Location: Low Back/Lumbar Spine - Right;Low Back/Lumbar Spine - Left;Neck Post Treatment Pain Score: 0/10 Pain Location: Neck;Low Back/Lumbar Spine - Right;Low Back/Lumbar Spine - Left OBJECTIVE MEASURES WITH LEVEL OF FUNCTION: Pt. Able to tolerate the addition of prone lying and prone on elbows without c/o of increased low back pain. TREATMENT: Therapeutic Exercise: 1: NuStep L 8, 6 min 2: Seated roll outs with 75 cm ball 10 reps, 10 sec hold 3: Seated roll outs to the right 10 reps, 10 sec hold 4: Seated thoracic rotation right 10 reps, 5 sec hold 8: Standing hamstring stretch 2X each leg for 30 seconds ea 9: Pelvic Tilts 10X with 5 second squeeze 10: trunk Rotation 10X with BLE's elevated on 65 cm ball 11: prone lying 12: chin tucks 10X 13: Calf Stretch on slant board for 30 sec X 2 14: Pulleys for 2 min. 15: SKTC stretch 15 sec ea 5X Skilled Intervention: Patient was educated in proper exercise technique and purpose for exercises. Reviewed and educated patient on additions/changes for home exercise program as above. Skilled judgment was provided in selection of appropriate interventions. Provided written instruction for home exercise program to facilitate proper performance and compliance. Correct performance of therapeutic exercises was facilitated with verbal and visual cuing. Billing: Los: Therapeutic Exercise ([id number]): 1:1 time: 47 minutes (3 units: 38-52 mins) Total time: 47 minutes Lazaro Roach PTA PROGRESS Observed: 10/01/2017 Status: COMPLETED Source: [place] 12:31 PM [facility] OTHER CAMPUS REPOSITORY HNO ID: [id number] Author: Lazaro Roach PT ASSIST Service: (none) Author Type: Core Driller Type: Progress Notes Filed: 10/01/2017 12:59 PM Note Text: Episode Visit Count: 3 Therapist That Will Oversee The Plan Of Care: Teja Ortega PT Start of Care Date: 09/15/17 Onset Date: 03/17/17 Plan of Care Certification Date: 09/15/17 REHABILITATION AND SPORTS THERAPY PHYSICAL THERAPY TREATMENT NOTE ASSESSMENT: Dipesh Mesa Bermudez demonstrated improvements in low back pain this date. The patient will continue to benefit from continued skilled physical therapy for improving core strengthening, posture and flexibility for overall improved functional mobility. PLAN FOR NEXT VISIT: Review posture AND HEP and cont. to add therapeutic exercises for range of motion, flexibility and lumbar stabilization/strengthening SUBJECTIVE: Pt. Reported 0/10 low back pain at the beginning of tx. Session and little to no pain at the end. Pt. Had a noticeable rash on both arms AND stated, [facility] Advised pt. If it gets any worse to go to an urgent care center. Pt. Reported, My friend asked me if I had dogs and I do but they don't have fleas. Pain Score: 0/10 Pain Location: Low Back/Lumbar Spine - Right;Low Back/Lumbar Spine - Left OBJECTIVE MEASURES WITH LEVEL OF FUNCTION: 182/90 mmhg LUE seated @ mat table 60 BPM in the beginning of tx. Session and @ the end of tx. Session 136/86 mmhg RUE seated in a chair 55 BPM TREATMENT: Therapeutic Exercise: 1: NuStep L 8, 6 min 2: Seated roll outs with 75 cm ball 10 reps, 10 sec hold 3: Seated roll outs to the right 10 reps, 10 sec hold 4: Seated thoracic rotation right 10 reps, 5 sec hold 5: Left CBA 10 reps, 10 sec hold 6: Seated trunk flexion 10 reps 7: Seated scapular retraction 10 reps 8: Seated hamstring stretch 5 reps, 10 sec hold bilaterally 9: Pelvic Tilts 10X with 5 second squeeze 10: trunk Rotation 10X Skilled Intervention: Patient was educated in proper exercise technique and purpose for exercises. Reviewed and educated patient on additions/changes for home exercise program as above. Skilled judgment was provided in selection of appropriate interventions. Correct performance of therapeutic exercises was facilitated with verbal and visual cuing. Therapeutic Activity: 1: Instructed patient in proper sitting posture using appropriate sized lumbar roll. 2: Instructed pt. in log roll tech. with issued handout on proper body mechanics with transitional movements. 4: Educated pt. on why poor posture hurts, issued handout. 5: Issued handout on proper body mechanics during ADL's Skilled Intervention: Instructed on proper lifting and carrying techniques with importance of core activation. Educated on proper/safe technique for activities performed today. Billing: [place]: Therapeutic Exercise (38496): 1:1 time: 35 minutes (2 units: 23-37 mins) Therapeutic Activity ([id number]): 1:1 time: 10 minutes (1 unit: 8-22 mins) Total time: 45 minutes Lazaro Roach PTA CNTHERAPY Observed: 10/01/2017 Status: COMPLETED Source: [facility] 10:15 AM CLINIC OTHER CAMPUS REPOSITORY OT/PT/Speech Visit (AKPTLK) BERMUDEZDIPESH Moshe ([id number]) 1950 M CHT Date Time Provider Department 10/01/17 10:15 AM LAZARO ROACH (PHYSICIAN/ALLERGY/IMMUNOLOGY) [place] Date Time Provider Department Center 10/01/2017 10:15 AM [id number], DANA (P*AKPTRADHA BAI Reason for Visit: Physical Therapy [503] Primary Visit Diagnosis:Chronic bilateral low back pain without sciatica [M54.5, G89.29] Other Visit Diagnoses:Neck pain [M54.2] Physical deconditioning [R53.81] Abnormal gait [R26.9] Allergies As of Date: 10/01/2017 Noted Allergy Reaction INSULIN NPH HUMAN ISOPHANE 09/18/2015 14 - Other: See Comments Comments: Other allergic reaction CAUSES HYPERGLYCEMIA Onset Date: 2006 ASA (ASPIRIN) 03/28/2015 5 - Intolerance CODEINE 03/28/2015 5 - Intolerance PENICILLINS 03/28/2015 16 - Unknown Date Reviewed: 09/07/2017 Reviewed by: Jay Chamberlain Ma - Fully Assessed Prescriptions as of 10/01/2017 Sig: AMLODIPINE 10 MG TABLET Take 10 mg by mouth once gulshan* DIVALPROEX ER 500 MG TABLET,E* Take 500 mg by mouth once rochelle* VENTOLIN HFA 90 MCG/ACTUATION* METFORMIN 1,000 MG TABLET LANTUS SOLOSTAR U-100 INSULIN* ALBUTEROL SULFATE 2.5 MG/3 ML* Use 2.5 mg via nebulizer ever* ALBUTEROL SULFATE INHALATION Inhale 1 Puff as instructed f* IPRATROPIUM BROMIDE INHALATION Inhale as instructed four ti* KETOCONAZOLE 2 % SHAMPOO Apply 1 application to affect* LANTUS SUBCUTANEOUS Inject 45 Units/mL subcutaneo* METFORMIN 500 MG TABLET Take 1,000 mg by mouth twice * MUPIROCIN 2 % TOPICAL OINTMENT Apply 1 application to affect* INSULIN ASPART U-100 100 UNI* Inject 12 Units subcutaneousl* POLYETHYLENE GLYCOL 3350 ORAL Take 17 g by mouth once daily* TOLNAFTATE TOPICAL Apply to affected area. 1 po* HYDROCHLOROTHIAZIDE 25 MG TAB* IBUPROFEN 800 MG TABLET LISINOPRIL 30 MG TABLET RISPERIDONE 3 MG TABLET TOPIRAMATE 50 MG TABLET ZOSTAVAX (PF) 19,400 UNIT/0.6* Progress Notes: Lazaro Roach PTA, PT ASSIST 10/01/2017 12:59 PM Signed Episode Visit Count: 3 Therapist That Will Oversee The Plan Of Care: Teja Ortega PT Start of Care Date: 09/15/17 Onset Date: 03/17/17 Plan of Care Certification Date: 09/15/17 REHABILITATION AND SPORTS THERAPY PHYSICAL THERAPY TREATMENT NOTE ASSESSMENT: Dipesh Bermudez demonstrated improvements in low back pain this date. The patient will continue to benefit from continued skilled physical therapy for improving core strengthening, posture and flexibility for overall improved functional mobility. PLAN FOR NEXT VISIT: Review posture AND HEP and cont. to add therapeutic exercises for range of motion, flexibility and lumbar stabilization/strengthening SUBJECTIVE: Pt. Reported 0/10 low back pain at the beginning of tx. Session and little to no pain at the end. Pt. Had a noticeable rash on both arms AND stated, [facility] [place] [facility] to get [facility] looked at. Advised pt. If it gets any worse to go to an urgent care center. Pt. Reported, My friend asked me if I had dogs and I do but they don't have fleas. Pain Score: 0/10 Pain Location: Low Back/Lumbar Spine - Right;Low Back/Lumbar Spine - Left OBJECTIVE MEASURES WITH LEVEL OF FUNCTION: 182/90 mmhg LUE seated @ mat table 60 BPM in the beginning of tx. Session and @ the end of tx. Session 136/86 mmhg RUE seated in a chair 55 BPM TREATMENT: Therapeutic Exercise: 1: NuStep L 8, 6 min 2: Seated roll outs with 75 cm ball 10 reps, 10 sec hold 3: Seated roll outs to the right 10 reps, 10 sec hold 4: Seated thoracic rotation right 10 reps, 5 sec hold 5: Left CBA 10 reps, 10 sec hold 6: Seated trunk flexion 10 reps 7: Seated scapular retraction 10 reps 8: Seated hamstring stretch 5 reps, 10 sec hold bilaterally 9: Pelvic Tilts 10X with 5 second squeeze 10: trunk Rotation 10X Skilled Intervention: Patient was educated in proper exercise technique and purpose for exercises. Reviewed and educated patient on additions/changes for home exercise program as above. Skilled judgment was provided in selection of appropriate interventions. Correct performance of therapeutic exercises was facilitated with verbal and visual cuing. Therapeutic Activity: 1: Instructed patient in proper sitting posture using appropriate sized lumbar roll. 2: Instructed pt. in log roll tech. with issued handout on proper body mechanics with transitional movements. 4: Educated pt. on why poor posture hurts, issued handout. 5: Issued handout on proper body mechanics during ADL's Skilled Intervention: Instructed on proper lifting and carrying techniques with importance of core activation. Educated on proper/safe technique for activities performed today. Billing: [place]: Therapeutic Exercise ([id number]): 1:1 time: 35 minutes (2 units: 23-37 mins) Therapeutic Activity ([id number]): 1:1 time: 10 minutes (1 unit: 8-22 mins) Total time: 45 minutes Lazaro Roach PTA PROGRESS Observed: 2017 Status: COMPLETED Source: [facility] [place] 8:30 AM CLINIC OTHER CAMPUS REPOSITORY HNO ID: [id number] Author: Teja Ortega (Pt), PT Service: (none) Author Type: Physical Therapist Type: Progress Notes Filed: 2017 10:25 AM Note Text: Episode Visit Count: 2 Therapist That Will Oversee The Plan Of Care: Teja Ortega PT Start of Care Date: 09/15/17 Onset Date: 03/17/17 Plan of Care Certification Date: 09/15/17 Patient Identified by Name and Date of : Yes REHABILITATION AND SPORTS THERAPY PHYSICAL THERAPY TREATMENT NOTE ASSESSMENT: Dipesh Bermudez demonstrated difficulty with left low back pain. The patient will continue to benefit from continued skilled physical therapy for progressive therapeutic exercise for range of motion, stretching, lumbar stabilization and continued posture education to address deficits for improved function. PLAN FOR NEXT VISIT: Continue with posture education. Initiate therapeutic exercises for range of motion, flexibility and lumbar stabilization/strengthening SUBJECTIVE: Patient presents to PT via motorized scooter with reports of left low back pain. He states his neck feels good today. No pain noted in neck this morning. Pain Score: 8/10 (0/10 neck) Pain Location: Low Back/Lumbar Spine - Left Description: Stabbing Frequency: Continuous OBJECTIVE MEASURES WITH LEVEL OF FUNCTION: Vitals: O2 = 98% HR = 99 BP = 145/107 at beginning of PT; 152/105 at completion of PT. Patient reports taking his BP meds at night. He reports he did have a BP cuff at home but lost it. Contacted patient's PCP to report above BP readings. Information provided to nurse. Patient [facility] appointment [facility] tomorrow to have his heart monitor removed. He states they will assess his BP at that time. TREATMENT: Therapeutic Exercise: 1: NuStep L 7, 6 min 2: Seated roll outs with 75 cm ball 10 reps, 10 sec hold 3: Seated roll outs to the right 10 reps, 10 sec hold 4: Seated thoracic rotation right 10 reps, 5 sec hold 5: Left CBA 10 reps, 10 sec hold 6: Seated trunk flexion 10 reps 7: Seated scapular retraction 10 reps 8: Seated hamstring stretch 5 reps, 10 sec hold bilaterally Skilled Intervention: Patient was educated in proper exercise technique and purpose for exercises. Skilled judgment was provided in selection of appropriate interventions. Correct performance of therapeutic exercises was facilitated with verbal and visual cuing. Moist heat applied to bilateral lumbosacral region in sitting x 12 min Billing: [place]: Therapeutic Exercise ([id number]): 1:1 time: 40 minutes (3 units: 38-52 mins) Modalities: Moist heat 12 min (0 units) Total time: 52 minutes Teja Ortega, PT CNTHERAPY Observed: 2017 Status: COMPLETED Source: [facility] [place] 8:30 AM CLINIC OTHER CAMPUS REPOSITORY OT/PT/Speech Visit (AKPTLK) DIPESH BERMUDEZ ([id number]) 1950 M T Date Time Provider Department 09/23/17 8:30 AM TEJA ORTEGA (PT) AKPTLK Date Time Provider Department Center 2017 8:30 AM [id number] ORTEGA *AKPTLZena BAI Reason for Visit: Physical Therapy [503] Primary Visit Diagnosis:Chronic bilateral low back pain without sciatica [M54.5, G89.29] Other Visit Diagnoses:Neck pain [M54.2] Physical deconditioning [R53.81] Abnormal gait [R26.9] Allergies As of Date: 2017 Noted Allergy Reaction INSULIN NPH HUMAN ISOPHANE 09/18/2015 14 - Other: See Comments Comments: Other allergic reaction CAUSES HYPERGLYCEMIA Onset Date: 2006 ASA (ASPIRIN) 03/28/2015 5 - Intolerance CODEINE 03/28/2015 5 - Intolerance PENICILLINS 03/28/2015 16 - Unknown Date Reviewed: 09/07/2017 Reviewed by: Jay Chamberlain Ma - Fully Assessed Prescriptions as of 2017 Sig: AMLODIPINE 10 MG TABLET Take 10 mg by mouth once gulshan* DIVALPROEX ER 500 MG TABLET,E* Take 500 mg by mouth once rochelle* VENTOLIN HFA 90 MCG/ACTUATION* METFORMIN 1,000 MG TABLET LANTUS SOLOSTAR U-100 INSULIN* ALBUTEROL SULFATE 2.5 MG/3 ML* Use 2.5 mg via nebulizer ever* ALBUTEROL SULFATE INHALATION Inhale 1 Puff as instructed f* IPRATROPIUM BROMIDE INHALATION Inhale as instructed four ti* KETOCONAZOLE 2 % SHAMPOO Apply 1 application to affect* LANTUS SUBCUTANEOUS Inject 45 Units/mL subcutaneo* METFORMIN 500 MG TABLET Take 1,000 mg by mouth twice * MUPIROCIN 2 % TOPICAL OINTMENT Apply 1 application to affect* INSULIN ASPART U-100 100 UNI* Inject 12 Units subcutaneousl* POLYETHYLENE GLYCOL 3350 ORAL Take 17 g by mouth once daily* TOLNAFTATE TOPICAL Apply to affected area. 1 po* HYDROCHLOROTHIAZIDE 25 MG TAB* IBUPROFEN 800 MG TABLET LISINOPRIL 30 MG TABLET RISPERIDONE 3 MG TABLET TOPIRAMATE 50 MG TABLET ZOSTAVAX (PF) 19,400 UNIT/0.6* Progress Notes: Teja Ortega (Pt), PT 2017 10:25 AM Signed Episode Visit Count: 2 Therapist That Will Oversee The Plan Of Care: Teja Ortega PT Start of Care Date: 09/15/17 Onset Date: 03/17/17 Plan of Care Certification Date: 09/15/17 Patient Identified by Name and Date of : Yes REHABILITATION AND SPORTS THERAPY PHYSICAL THERAPY TREATMENT NOTE ASSESSMENT: Dipesh Bermudez demonstrated difficulty with left low back pain. The patient will continue to benefit from continued skilled physical therapy for progressive therapeutic exercise for range of motion, stretching, lumbar stabilization and continued posture education to address deficits for improved function. PLAN FOR NEXT VISIT: Continue with posture education. Initiate therapeutic exercises for range of motion, flexibility and lumbar stabilization/strengthening SUBJECTIVE: Patient presents to PT via motorized scooter with reports of left low back pain. He states his neck feels good today. No pain noted in neck this morning. Pain Score: 8/10 (0/10 neck) Pain Location: Low Back/Lumbar Spine - Left Description: Stabbing Frequency: Continuous OBJECTIVE MEASURES WITH LEVEL OF FUNCTION: Vitals: O2 = 98% HR = 99 BP = 145/107 at beginning of PT; 152/105 at completion of PT. Patient reports taking his BP meds at night. He reports he did have a BP cuff at home but lost it. Contacted patient's PCP to report above BP readings. Information provided to nurse. Patient has appointment [facility] tomorrow to have his heart monitor removed. He states they will assess his BP at that time. TREATMENT: Therapeutic Exercise: 1: NuStep L 7, 6 min 2: Seated roll outs with 75 cm ball 10 reps, 10 sec hold 3: Seated roll outs to the right 10 reps, 10 sec hold 4: Seated thoracic rotation right 10 reps, 5 sec hold 5: Left CBA 10 reps, 10 sec hold 6: Seated trunk flexion 10 reps 7: Seated scapular retraction 10 reps 8: Seated hamstring stretch 5 reps, 10 sec hold bilaterally Skilled Intervention: Patient was educated in proper exercise technique and purpose for exercises. Skilled judgment was provided in selection of appropriate interventions. Correct performance of therapeutic exercises was facilitated with verbal and visual cuing. Moist heat applied to bilateral lumbosacral region in sitting x 12 min Billing: [place]: Therapeutic Exercise ([id number]): 1:1 time: 40 minutes (3 units: 38-52 mins) Modalities: Moist heat 12 min (0 units) Total time: 52 minutes Teja Ortega PT PROGRESS Observed: 09/15/2017 Status: COMPLETED Source: [place] 2:17 PM CLINIC OTHER CAMPUS REPOSITORY HNO ID: [id number] Author: Teja Ortega (Pt), PT Service: (none) Author Type: Physical Therapist Type: Progress Notes Filed: 09/16/2017 8:58 PM Note Text: Episode Visit Count: 1 Therapist That Will Oversee The Plan Of Care: Teja Ortega PT Start of Care Date: 09/15/17 Onset Date: 03/17/17 Plan of Care Certification Date: 09/15/17 Patient Identified by Name and Date of : Yes REHABILITATION AND SPORTS THERAPY PHYSICAL THERAPY EVALUATION PLAN OF CARE: Assessment: Dipesh Bermudez presents with the chief complaint of neck and low back pain. He presents with impairments of pain levels, spinal range of motion, trunk and lower extremity strength, sleep and functional mobility. He may benefit from skilled therapy services to improve his deficits for increased function and decreased pain. Prognosis: Fair Fair due to: multiple co- morbidities;poor understanding of deficits Goals for Episode of Care: created on 09/15/17 through 11/15/17 Independent in home exercises. Patient will decrease pain rating by 2 points to meet minimal clinical important difference for numeric pain rating scale. Sleep through night without pain/symptoms. Knowledgeable regarding prophylaxis. Patient will increase strength of bilateral upper and lower extremities to 4->4+/5 to allow for perform ADLs. Patient will increase flexibility/AROM of cervical and lumbar spine by 25% all planes to decrease pain. Patient will improve his/her AM-PAC T-scale score by 4 points to indicate a Minimal Clinical Important Difference. G CODE REPORTING Based on clinical assessment and the score on the AM-PAC Scale Score Assessment Tool, the G code and corresponding severity modifiers are documented below. Evaluation: 09/16/2017 Current Status: Mobility: Walking and Moving Around: G8978 CK 40-59% impaired Goal Status: Mobility: Walking and Moving Around: G8979 CK 40-59% impaired Planned Interventions, Frequency, and Duration: Current Frequency: 2x/week Duration: 8 weeks Total Number of Visits Planned: 16 Patient to be see for Planned Treatment Interventions: Therapeutic exercise;Neuromuscular re-education;Manual therapy;Therapeutic activities;Self-mcc management;Patient/Family/Caregiver Education;Modalities;Body Mechanics Training Modalities: (moist heat vs ice prn) PLAN FOR NEXT VISIT: Continue with posture education. Initiate therapeutic exercises for range of motion, flexibility and lumbar stabilization/strengthening Patient demonstrates good understanding of plan of care and treatment. The above goals and plan of care were discussed and agreed upon by patient/family. SUBJECTIVE: Dipesh Bermudez is a 66 year old male seen today for neck, upper back and low back pain. Patient reports he has had these pain complaints for ~ 6 months. Patient reports being on disability. He is slow to respond to questions from PT. Patient reports using his motorized scooter for majority of his mobility. He states that he is on his 4th one and receives them through the [place]. A transportation service takes him to/from his medical appointments. He obtains his food through a program called [employer] on a weekly basis. 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 He states that he had surgery in 2013 and then a gamma knife procedure ~ 1 year later. Patient reports he will be seeing a doctor through on 10/14/17 for a second opinion to determine if additional surgery is needed. Per patient, told him double vision is from this tumor. He is also wearing a heart monitor until 09/27/17. Patient reports low back and neck are 0/10 in sitting but increase to 5-6/10 when he lays down. Functional Limitations: sitting;sleeping Prior Level of Function: Independent without limitations Patient Goals: decrease pain and sleep better Intake Information: Prescription present Previous Treatment: Pain Management?;Pain meds? 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) Preferred Language: Kiswahili Right or Left Handed: Right Employment: Medically Disabled Hobbies / Interests: likes to paint cermanics Home Environment Patient Lives With: Family Assistance Available: PRN Home Type: [place] Entry To Home: (electric lift for scooter) Laundry: family does laundry Equipment Owned: (electric scooter) Spine History Symptoms Location at Onset: Neck;Back Symptoms Since Onset: Unchanged Pain is Worse Always: Lying Pain is Worse Sometimes: Sitting Pain is Better Always: Standing;Walking (standing or walking short intervals;using recliner) Sleeping Position: Side lying left > right Sleep Affected by Pain: Pain keeps from falling asleep;Pain awakens Previous Episodes: No Red Flags Vertebral Fracture Clinical Reasoning: No identified risk factors Abdominal Aortic Aneurysm Red Flags: Age >60 Abdominal Aortic Aneurysm Clinical Reasoning: Proceed with caution Cancer Red Flags: Age >50 or <20 Cancer Clinical Reasoning: Proceed with caution Infection Clinical Reasoning: No identified risk factors. Cauda Equina Syndrome Clinical Reasoning: No identified risk factors. Red Flags - Cervical Cancer Red Flags: Age >50 or <20 Cancer Clinical Reasoning: Proceed with caution Infection Clinical Reasoning: No identified risk factors. Pain Score: 6/10 Pain Location: Neck;Scapula - Right;Scapula - Left;Low Back/Lumbar Spine - Right;Low Back/Lumbar Spine - Left Description: Stabbing Frequency: Intermittent (occ with sitting;usually with lying down at night) OBJECTIVE MEASURES WITH LEVEL OF FUNCTION: Cognition Cognition: Follows Commands Follows Commands: 1-step Commands Vision Vision Deficits: Wears glasses;Diplopia Posture / Alignment Posture: Forward head;Rounded shoulders;Flattened thoracic spine Effects of Posture Correction: better with small lumbar support Gait Assessment Weight Bearing Status: FWB Gait: Modified Independent Gait Distance (feet): 15' intervals only Gait Device: None (for short distance;uses scooter for longer distances) Balance Static Sitting Balance: good Dynamic Sitting Balance : good Spine Palpation R Thoracic Spine Palpation Tenderness: Paraspinals;Levator Scapulae L Thoracic Spine Palpation Tenderness: Paraspinals;Levator Scapulae R Lumbar Spine Palpation Tenderness: Paraspinals;Spinous Process (midline L2-L5 as well as transverse processes at same levels) L Lumbar Spine Palpation Tenderness: Paraspinals;Spinous Process (midline L2-L5 as well as transverse processes at same levels) Sensation - Lumbar Sensation: Grossly Intact (c/o N/T L fingers->elbow since his brain surgery) Lumbar Spine AROM Lumbar Flexion: Moderate limitation Lumbar Extension: Major limitation (painful) Lumbar R Side-Bend: Major limitation (painful) Lumbar L Side-Bend: Major limitation (painful) LE AROM Tested?: Yes Static Testing - Lumbar Sit Slouched: worse Sit Erect: better (with small lumbar roll) LE AROM R LE AROM: WFL L LE AROM: WFL Lumbar Spine Evaluated?: Yes LE Strength R Hip Flexion: 3+/5 R Knee Extension: 4-/5 R Knee Flexion: 4-/5 R Ankle Dorsiflexion: 4-/5 R Ankle Plantar Flexion: 4-/5 L Hip Flexion: 3+/5 L Knee Extension: 4-/5 L Knee Flexion: 3+/5 L Ankle Dorsiflexion: 4-/5 L Ankle Plantar Flexion: 4-/5 Functional Strength Functional Strength: Transfers;Wheelchair mobility Transfers: independent with UE support Wheelchair mobility: independent due to wc is motorized Cervical AROM: Flexion WFL Extension mod loss* Right Rotation min loss Left Rotation mod loss* Side bending mod loss bilaterally* * = pain AROM bilateral upper extremities: WFL Strength bilateral upper extremities: Right Left Shoulder FE 4/5 4-/5 Shoulder Ext 4/5 4/5 Shoulder Abd 4-/5 4-/5 Shoulder IR 4/5 4-/5 Shoulder ER 4-/5 4-/5 Elbow flexion 4/5 4-/5 Elbow extension 4/5 4-/5 Printed Circuit Board Reworker (2nd position dynamometer) 45 lbs 36 lbs Education: Education Learning Preferences: Demonstration;Explanation;Performance;Printed Materials Barriers: Visual Deficit (double vision with glasses;worse without;since brain sx ) Learning/educational needs: Home exercise program;Plan of Care;Posture;Dance Artist Education Provided: Yes, see treatment interventions for education provided Education Provided To: Patient Education Mode/Type: Demonstration;Explanation/Discussion;Performance Response to Education/Teach Back: Requires Review/Additional Education TREATMENT: Therapeutic Activity: 1: Instructed patient in proper sitting posture using appropriate sized lumbar roll. 2: Instructed patient in proper sleeping postures to keep spine supported in neutral. 3: Discussed use of moist heat vs ice at home. Skilled Intervention: Education was provided regarding the above information. Patient verbalized an understanding of the information presented. Billing: [place]: Evaluation - Moderate Complexity (41046) Therapeutic Activity (10467): 1:1 time: 20 minutes (1 unit: 8-22 mins) Total time: 60 minutes Teja Ortega PT CNTHERAPY Observed: 09/15/2017 Status: COMPLETED Source: [place] 1:45 PM CLINIC OTHER CAMPUS REPOSITORY OT/PT/Speech Visit (AKPTLK) DIPESH BERMUDEZ ([id number]) 1950 M [facility] Date Time Provider Department 09/15/17 1:45 PM TEJA ORTEGA (PT) AKPTRADHA Date Time Provider Department Center 09/15/2017 1:45 PM [id number] ORTEGA *AKPTRADHA BAI Reason for Visit: PT Eval [747] Primary Visit Diagnosis:Chronic bilateral low back pain without sciatica [M54.5, G89.29] Other Visit Diagnoses:Neck pain [M54.2] Physical deconditioning [R53.81] Abnormal gait [R26.9] Allergies As of Date: 09/15/2017 Noted Allergy Reaction INSULIN NPH HUMAN ISOPHANE 09/18/2015 14 - Other: See Comments Comments: Other allergic reaction CAUSES HYPERGLYCEMIA Onset Date: 2006 ASA (ASPIRIN) 03/28/2015 5 - Intolerance CODEINE 03/28/2015 5 - Intolerance PENICILLINS 03/28/2015 16 - Unknown Date Reviewed: 09/07/2017 Reviewed by: Jay Chamberlain Ma - Fully Assessed Prescriptions as of 09/15/2017 Sig: AMLODIPINE 10 MG TABLET Take 10 mg by mouth once gulshan* DIVALPROEX ER 500 MG TABLET,E* Take 500 mg by mouth once rochelle* VENTOLIN HFA 90 MCG/ACTUATION* METFORMIN 1,000 MG TABLET LANTUS SOLOSTAR U-100 INSULIN* ALBUTEROL SULFATE 2.5 MG/3 ML* Use 2.5 mg via nebulizer ever* ALBUTEROL SULFATE INHALATION Inhale 1 Puff as instructed f* IPRATROPIUM BROMIDE INHALATION Inhale as instructed four ti* KETOCONAZOLE 2 % SHAMPOO Apply 1 application to affect* LANTUS SUBCUTANEOUS Inject 45 Units/mL subcutaneo* METFORMIN 500 MG TABLET Take 1,000 mg by mouth twice * MUPIROCIN 2 % TOPICAL OINTMENT Apply 1 application to affect* INSULIN ASPART U-100 100 UNI* Inject 12 Units subcutaneousl* POLYETHYLENE GLYCOL 3350 ORAL Take 17 g by mouth once daily* TOLNAFTATE TOPICAL Apply to affected area. 1 po* HYDROCHLOROTHIAZIDE 25 MG TAB* IBUPROFEN 800 MG TABLET LISINOPRIL 30 MG TABLET RISPERIDONE 3 MG TABLET TOPIRAMATE 50 MG TABLET ZOSTAVAX (PF) 19,400 UNIT/0.6* Progress Notes: Teja Ortega (Pt), PT 09/16/2017 8:58 PM Signed Episode Visit Count: 1 Therapist That Will Oversee The Plan Of Care: Teja Ortega PT Start of Care Date: 09/15/17 Onset Date: 03/17/17 Plan of Care Certification Date: 09/15/17 Patient Identified by Name and Date of : Yes RE[facility]ABILIT[facility] AND SPORTS THERAPY PHYSICAL THERAPY EVALUATION PLAN OF CARE: Assessment: Dipesh Bermudez presents with the chief complaint of neck and low back pain. He presents with impairments of pain levels, spinal range of motion, trunk and lower extremity strength, sleep and functional mobility. He may benefit from skilled therapy services to improve his deficits for increased function and decreased pain. Prognosis: Fair Fair due to: multiple co- morbidities;poor understanding of deficits Goals for Episode of Care: created on 09/15/17 through 11/15/17 Independent in home exercises. Patient will decrease pain rating by 2 points to meet minimal clinical important difference for numeric pain rating scale. Sleep through night without pain/symptoms. Knowledgeable regarding prophylaxis. Patient will increase strength of bilateral upper and lower extremities to 4->4+/5 to allow for perform ADLs. Patient will increase flexibility/AROM of cervical and lumbar spine by 25% all planes to decrease pain. Patient will improve his/her AM-PAC T-scale score by 4 points to indicate a Minimal Clinical Important Difference. G CODE REPORTING Based on clinical assessment and the score on the AM-PAC Scale Score Assessment Tool, the G code and corresponding severity modifiers are documented below. Evaluation: 09/16/2017 Current Status: Mobility: Walking and Moving Around: G8978 CK 40-59% impaired Goal Status: Mobility: Walking and Moving Around: G8979 CK 40-59% impaired Planned Interventions, Frequency, and Duration: Current Frequency: 2x/week Duration: 8 weeks Total Number of Visits Planned: 16 Patient to be see for Planned Treatment Interventions: Therapeutic exercise;Neuromuscular re-education;Manual therapy;Therapeutic activities;Self-mcc management;Patient/Family/Caregiver Education;Modalities;Body Mechanics Training Modalities: (moist heat vs ice prn) PLAN FOR NEXT VISIT: Continue with posture education. Initiate therapeutic exercises for range of motion, flexibility and lumbar stabilization/strengthening Patient demonstrates good understanding of plan of care and treatment. The above goals and plan of care were discussed and agreed upon by patient/family. SUBJECTIVE: Dipesh Bermudez is a 66 year old male seen today for neck, upper back and low back pain. Patient reports he has had these pain complaints for ~ 6 months. Patient reports being on disability. He is slow to respond to questions from PT. Patient reports using his motorized scooter for majority of his mobility. He states that he is on his 4th one and receives them through the [place]. A transportation service takes him to/from his medical appointments. He obtains his food through a program called [employer] on a weekly basis. 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 He states that he had surgery in 2013 and then a gamma knife procedure ~ 1 year later. Patient reports he will be seeing a doctor through on 10/14/17 for a second opinion to determine if additional surgery is needed. Per patient, told him double vision is from this tumor. He is also wearing a heart monitor until 09/27/17. Patient reports low back and neck are 0/10 in sitting but increase to 5-6/10 when he lays down. Functional Limitations: sitting;sleeping Prior Level of Function: Independent without limitations Patient Goals: decrease pain and sleep better Intake Information: Prescription present Previous Treatment: Pain Management?;Pain meds? 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) Preferred Language: Kiswahili Right or Left Handed: Right Employment: Medically Disabled Hobbies / Interests: likes to paint cermanics Home Environment Patient Lives With: Family Assistance Available: PRN Home Type: [place] Entry To Home: (electric lift for scooter) Laundry: family does laundry Equipment Owned: (electric scooter) Spine History Symptoms Location at Onset: Neck;Back Symptoms Since Onset: Unchanged Pain is Worse Always: Lying Pain is Worse Sometimes: Sitting Pain is Better Always: Standing;Walking (standing or walking short intervals;using recliner) Sleeping Position: Side lying left > right Sleep Affected by Pain: Pain keeps from falling asleep;Pain awakens Previous Episodes: No Red Flags Vertebral Fracture Clinical Reasoning: No identified risk factors Abdominal Aortic Aneurysm Red Flags: Age >60 Abdominal Aortic Aneurysm Clinical Reasoning: Proceed with caution Cancer Red Flags: Age >50 or <20 Cancer Clinical Reasoning: Proceed with caution Infection Clinical Reasoning: No identified risk factors. Cauda Equina Syndrome Clinical Reasoning: No identified risk factors. Red Flags - Cervical Cancer Red Flags: Age >50 or <20 Cancer Clinical Reasoning: Proceed with caution Infection Clinical Reasoning: No identified risk factors. Pain Score: 6/10 Pain Location: Neck;Scapula - Right;Scapula - Left;Low Back/Lumbar Spine - Right;Low Back/Lumbar Spine - Left Description: Stabbing Frequency: Intermittent (occ with sitting;usually with lying down at night) OBJECTIVE MEASURES WITH LEVEL OF FUNCTION: Cognition Cognition: Follows Commands Follows Commands: 1-step Commands Vision Vision Deficits: Wears glasses;Diplopia Posture / Alignment Posture: Forward head;Rounded shoulders;Flattened thoracic spine Effects of Posture Correction: better with small lumbar support Gait Assessment Weight Bearing Status: FWB Gait: Modified Independent Gait Distance (feet): 15' intervals only Gait Device: None (for short distance;uses scooter for longer distances) Balance Static Sitting Balance: good Dynamic Sitting Balance : good Spine Palpation R Thoracic Spine Palpation Tenderness: Paraspinals;Levator Scapulae L Thoracic Spine Palpation Tenderness: Paraspinals;Levator Scapulae R Lumbar Spine Palpation Tenderness: Paraspinals;Spinous Process (midline L2-L5 as well as transverse processes at same levels) L Lumbar Spine Palpation Tenderness: Paraspinals;Spinous Process (midline L2-L5 as well as transverse processes at same levels) Sensation - Lumbar Sensation: Grossly Intact (c/o N/T L fingers->elbow since his brain surgery) Lumbar Spine AROM Lumbar Flexion: Moderate limitation Lumbar Extension: Major limitation (painful) Lumbar R Side-Bend: Major limitation (painful) Lumbar L Side-Bend: Major limitation (painful) LE AROM Tested?: Yes Static Testing - Lumbar Sit Slouched: worse Sit Erect: better (with small lumbar roll) LE AROM R LE AROM: WFL L LE AROM: WFL Lumbar Spine Evaluated?: Yes LE Strength R Hip Flexion: 3+/5 R Knee Extension: 4-/5 R Knee Flexion: 4-/5 R Ankle Dorsiflexion: 4-/5 R Ankle Plantar Flexion: 4-/5 L Hip Flexion: 3+/5 L Knee Extension: 4-/5 L Knee Flexion: 3+/5 L Ankle Dorsiflexion: 4-/5 L Ankle Plantar Flexion: 4-/5 Functional Strength Functional Strength: Transfers;Wheelchair mobility Transfers: independent with UE support Wheelchair mobility: independent due to wc is motorized Cervical AROM: Flexion WFL Extension mod loss* Right Rotation min loss Left Rotation mod loss* Side bending mod loss bilaterally* * = pain AROM bilateral upper extremities: WFL Strength bilateral upper extremities: Right Left Shoulder FE 4/5 4-/5 Shoulder Ext 4/5 4/5 Shoulder Abd 4-/5 4-/5 Shoulder IR 4/5 4-/5 Shoulder ER 4-/5 4-/5 Elbow flexion 4/5 4-/5 Elbow extension 4/5 4-/5 Printed Circuit Board Reworker (2nd position dynamometer) 45 lbs 36 lbs Education: Education Learning Preferences: Demonstration;Explanation;Performance;Printed Materials Barriers: Visual Deficit (double vision with glasses;worse without;since brain sx ) Learning/educational needs: Home exercise program;Plan of Care;Posture;Dance Artist Education Provided: Yes, see treatment interventions for education provided Education Provided To: Patient Education Mode/Type: Demonstration;Explanation/Discussion;Performance Response to Education/Teach Back: Requires Review/Additional Education TREATMENT: Therapeutic Activity: 1: Instructed patient in proper sitting posture using appropriate sized lumbar roll. 2: Instructed patient in proper sleeping postures to keep spine supported in neutral. 3: Discussed use of moist heat vs ice at home. Skilled Intervention: Education was provided regarding the above information. Patient verbalized an understanding of the information presented. Billing: [place]: Evaluation - Moderate Complexity (28670) Therapeutic Activity (74204): 1:1 time: 20 minutes (1 unit: 8-22 mins) Total time: 60 minutes Teja Ortega PT PROGRESS Observed: 09/07/2017 Status: COMPLETED Source: [place] 7:[address] [facility] HNO ID: [id number] Author: Rubin Lennon Service: (none) Author Type: Physician Type: Progress Notes Filed: 09/07/2017 9:45 AM Note Text: [facility] [address] [place] [address], [place] [address] New Patient Chronic Pain Consult Note Date: September 07, 2017 - 7:57 AM Referring physician: Christy Esquivel I This consult was requested by Christy Esquivel I for my medical opinion. My final recommendations will be communicated to the referring physician by way of the shared medical record for internal providers or by letter via the [employer] for external providers. Nursing Assessment: AMB ROOMING INTAKE FLOWSHEET DATA Risk Screening Do you have concerns about personal safety or safety in the home?: No Pain Pain Score: 5/10 Pain Location: Back-Lower Description: Aching, Stabbing Duration Amount of Time: 7 Duration Units: Months Frequency: Continuous Intervention: Medication Does the pain radiate? No. Distribution: back pain greater than leg pain. Is the pain related to trauma? No Best pain intensity (on a scale of 0-10/10): 5 Worst pain intensity (on a scale of 0-10/10): 10 Exacerbating factors: lying down Alleviating factors: sitting Previous pain treatments: medications Occupation: Disabled Past Medical History: PAST MEDICAL HISTORY Diagnosis Date - Anterior chest wall pain - Arthritis - Ataxia Able to ambulate but uses wheelchair - Backache - Benign neoplasm of brain (HCC) meningioma - Benign neoplasm of meninges (HCC) stable 1.5 x2.5 cm mass in left anterior-posterior - Bipolar 1 disorder (HCC) - Bipolar I disorder (HCC) - Bronchitis - Chest pain - Chronic obstructive lung disease (HCC) - Cough - Diabetes (HCC) - Essential hypertension - Essential tremor - HBP (high blood pressure) - Headache intermittent - Heart disease - Hx of peptic ulcer - Hyperlipidemia - Hypoglycemia associated with diabetes (HCC) - Hyponatremia - Irregular heartbeat - Leg cramp - Low back pain - Lymphedema - Near syncope - Neck pain - Obstructive sleep apnea syndrome CPAP - Osteoarthritis - Paranoid personality (disorder) - Seizure (HCC) - Solitary pulmonary nodule present on computed tomography of lung - Tietze's disease - Type 2 diabetes mellitus (HCC) [facility] Past Surgical History: PAST SURGICAL HISTORY Procedure Laterality Date - PAST SURGICAL HISTORY OF Right tib - PAST SURGICAL HISTORY OF brain surg - PAST SURGICAL HISTORY OF Remove lung, partial Family History: FAMILY HISTORY Problem Relation Age of Onset - Stroke Mother Social History: Alcohol Use: Approximately 1.5 oz/week [which includes 1 Cans of Beer (12oz) per week] (quit July/drinks 1 beer/day) Tobacco Use: 1 packs/day Types: Cigarettes. Ready to quit: No. Drug Use: No Psychiatric History: depression, anxiety Allergies: ALLERGIES Allergen Reactions - Insulin Nph Human I* Other: See Comments Other allergic reaction CAUSES HYPERGLYCEMIA Onset Date: 2006 - Asa [Aspirin] Intolerance - Codeine Intolerance - Penicillins Unknown Current Outpatient Medications: Current Outpatient Prescriptions: amLODIPine (NORVASC) 10 mg tablet Take 10 mg by mouth once daily. divalproex ER (DEPAKOTE ER) 500 mg 24 hr tablet Take 500 mg by mouth once daily. LANTUS SOLOSTAR 100 unit/mL (3 mL) inpn albuterol (PROVENTIL) 2.5 mg /3 mL (0.083 %) nebulizer solution Use 2.5 mg via nebulizer every 6 hours as needed. ALBUTEROL SULFATE INHALATION Inhale 1 Puff as instructed four times daily as needed. IPRATROPIUM BROMIDE INHALATION Inhale as instructed four times daily. ketoconazole (NIZORAL) 2 % shampoo Apply 1 application to affected area once daily. INSULIN GLARGINE,HUM.REC.ANLOG (LANTUS SUBCUTANEOUS) Inject 45 Units/mL subcutaneously daily at bedtime. metFORMIN (GLUCOPHAGE) 500 mg tablet Take 1,000 mg by mouth twice daily. mupirocin (BACTROBAN) 2 % ointment Apply 1 application to affected area twice daily. insulin aspart (NOVOLOG) 100 unit/mL inpn Inject 12 Units subcutaneously three times daily. POLYETHYLENE GLYCOL 3350 ORAL Take 17 g by mouth once daily. PRN TOLNAFTATE TOPICAL Apply to affected area. 1 powder Once per day Topical hydrochlorothiazide (HYDRODIURIL, ESIDRIX) 25 mg tablet ibuprofen (MOTRIN) 800 mg tablet Lisinopril 30 mg tablet risperiDONE (RISPERDAL) 3 mg tablet VENTOLIN HFA 90 mcg/actuation inhaler metFORMIN (GLUCOPHAGE) 1,000 mg tablet Topiramate (TOPAMAX) 50 mg tablet ZOSTAVAX, PF, 19,400 unit/0.65 mL injection No current facility-administered medications for this visit. Review of Systems: GENERAL: Any recent malaise or fevers? No HEENT: Any frequent or significant headaches? Yes - headaches Any recent changes in hearing or vision, nose bleeds or other nasal problems? No NECK: Any lumps, goiter, pain and significant neck swelling? Yes - neck and shoulder pain RESPIRATORY: Any recent cough, wheezing or shortness of breath? No CARDIOVASCULAR: Any recent chest pain, leg swelling or palpitations? No GASTROINTESTINAL: Any recent abdominal discomfort, blood in stools or black stools or change in bowel habits? No GENITOURINARY: Any history of dysuria, frequency or incontinence? No PEANUT SHELLER: Any for abnormal vaginal bleeding, abnormal vaginal discharge? N/A MUSCULOSKELETAL: Any joint pain or swelling, back pain or muscle pain? Yes - head pain, neck and b/l shoulder pain, low back pain NEUROLOGIC: Any recent focal numbness or weakness, dizziness or syncope? Yes - left hand tingling and numbness SKIN: Any recent skin lesions, rash, and itching? Yes - left arm scratches (from dog) PSYCHIATRIC: Any recent sleep disturbance, mood disorder and recent psychosocial stressors? Yes - sleep HEMATOLOGIC/LYMPHATIC/IMMUNOLOGIC: Any problems with prolonged bleeding, bruising easily or swollen nodes? Yes - bleeding ENDOCRINE: Any cold or heat intolerance, polyuria, polydipsia and goiter? No The remainder of the ROS was negative. Jay Betsy Her September 07, 2017 7:57 AM Nursing Attestation: I have reviewed the nursing documentation, edited the information as necessary, and confirmed the pertinent information with the patient. Rubin Lennon MD 8:00 AM History of Present Illness: File Conversion Operator, Vinita Asher, present during the entire encounter Dipesh Bermudez is a 66 year old male who presents with a chief complaint of low back without radiation and neck pain that radiates into both shoulders. The patient reports numbness in the left hand for years. He states he was given a brace years ago. The patient reports weakness in the left arm from the elbow down. The patient denies any loss of bowel or bladder function. The pain in the back and the neck are equal. The pain started 6-7 months ago without any inciting event. The pain is intermittent. The pain tends to occur and neck when he sleeps. He denies any pain during waking hours. He then states that once in a while he will have pain when he is awake. He has not participated in PT. He has tried Mobic in the past without benefit. He is taking ibuprofen without benefit. He has also tried Flexeril from [facility] which did help with the pain. He also states he received Percocet which did help with his pain. He smokes a pack of cigarettes a day. He states he has tried to quit but has not been successful. 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 OARRS Report: Reviewed: The patient's OARRS report was reviewed and is consistent with the reported medication use. Physical Examination: BP 190/96 Pulse 81 Resp 16 Ht 5' 9.291 (1.76m) Wt 221 lb (100.2kg) BMI 32.36 kg/(m2). General: Obese, well appearing, alert, in no acute distress Skin: skin color, texture, turgor normal, multiple abrasions on the left arm, posterior neck and base of the skull. HEENT: normocephalic, atraumatic, sclera non-icteric Cardiovascular: Regular rate and rhythm, no murmur, clicks or rubs - pulses present bilaterally and pulses equal Lungs: Lungs clear to auscultation. No wheezing, rhonchi, rales Musculoskeletal: Neck: Supple; good ROM with pain on end range. Tenderness over the bilateral cervical paraspinal muscles Back: Tenderness on palpation over the thoracic spine. Tenderness on palpation over the lumbar spine. Tenderness over the bilateral lumbar paraspinal muscles. Pain reproduced with extension of the lumbar spine. Facet loading is positive bilaterally. Extremities: Extremities normal. No deformities, edema, or skin discoloration Neurological: Mental Status: alert, oriented to person, place and time Cranial Nerves: Not examined Reflexes: Patellar reflexes are 2+. Motor Strength: Motor strength and tone are 5/5 all throughout. Sensory: Sensation was intact to light touch all throughout. Gait: Antalgic. The patient can walk on his heels. The patient can walk on his toes. Recent Imaging: EXAMINATION: ?MRI CERVICAL SPINE W/O CONTRAST ? CLINICAL HISTORY: ?Neck pain radiating into shoulders, left hand numbness ? TECHNIQUE: Routine cervical spine MR protocol without gadolinium. ? COMPARISON: MRI ? ? RESULT: ? Counting reference: ?Craniocervical junction. ? ? Alignment: ? ?Alignment is anatomic. ? Craniocervical junction: ? ?Unremarkable. ?Redemonstration of bilateral chronic cerebellar infarcts. ? Cord: ?The visualized cord is within normal limits of signal intensity and morphology. ? Bone marrow signal/fracture: ? ?No evidence of pathologic marrow infiltration. ?No ?evidence of prior fracture. ? Cervical soft tissues: ? ?The paraspinal soft tissues are within normal limits. ? C2-C3: No osseous or disc abnormality ? C3-C4: Minimal uncovertebral spurs ? C4-C5: Asymmetric moderate degenerative left central canal stenosis and severe left foraminal stenosis due to left posterior disc/osteophyte complex deforms the left ventral portion of the cord seen on axial image 13, unchanged ? C5-C6: Moderate degree of degenerative central and foraminal stenosis, greater towards right side, secondary to disc/osteophyte complexes. ? C6-C7: Moderate degree of degenerative central and foraminal stenosis secondary to ?disc/osteophyte complex and posterior hypertrophic changes with mild degree mass effect on the ventral and dorsal aspect of the cord seen on T2 sagittal image 8, unchanged ? C7-T1: no osseous or disc abnormality. At the T2-T3 level, endplate degenerative changes with bilateral foraminal stenosis secondary to spurs. ? ? IMPRESSION: ? No significant change from 04/10/2014 MRI. No evidence of soft disc herniation. Redemonstration of multilevel degenerative central and foraminal stenosis most prominent C4-5 and C6-7 levels due to posterior spurs and posterior hypertrophic changes with mild mass effect/deformity of the spinal cord as listed above Recent Labs: Hemoglobin A1C (%) Date Value 12/01/2015 8.5 HGBA1C (%) Date Value 04/21/2016 7.4 Albumin (g/dL) Date Value 04/21/2016 3.6 HDL Cholesterol (mg/dL) Date Value 04/21/2016 47 LDL Calculated (mg/dL) Date Value 04/21/2016 142 Triglyceride (mg/dL) Date Value 04/21/2016 213 ] Glucose (mg/dL) Date Value 01/19/2017 60 (L) 04/21/2016 198 (A) BUN (mg/dL) Date Value 01/22/2017 11 Creatinine (mg/dL) Date Value 01/22/2017 0.85 Sodium (mEq/L) Date Value 01/19/2017 137 Potassium (mEq/L) Date Value 01/19/2017 4.0 Chloride (mEq/L) Date Value 01/19/2017 102 CO2 (mEq/L) Date Value 01/19/2017 29 Protein, Total (g/dL) Date Value 04/21/2016 7.5 Albumin (g/dL) Date Value 04/21/2016 3.6 Calcium (mg/dL) Date Value 01/19/2017 9.1 Alkaline Phosphatase (U/L) Date Value 04/21/2016 114 Bilirubin, Total (mg/dL) Date Value 04/21/2016 0.4 AST (U/L) Date Value 04/21/2016 4 (L) ALT (U/L) Date Value 04/21/2016 10 (L) WBC (thou/cmm) Date Value 01/19/2017 12.77 (H) RBC (mil/cmm) Date Value 01/19/2017 5.10 Hemoglobin (g/dL) Date Value 09/14/2015 15.3 HGB (g/dL) Date Value 01/19/2017 13.8 Hematocrit (%) Date Value 01/19/2017 43.4 MCV (fl) Date Value 01/19/2017 85.1 MCH (pg) Date Value 01/19/2017 27.1 MCHC (%) Date Value 01/19/2017 31.8 (L) Platelet Count (thou/cmm) Date Value 01/19/2017 299 MPV (fl) Date Value 01/19/2017 9.4 EMG/NCV: NONE Current Anticoagulant Therapy: No NSAID: Yes: Ibuprofen Physical Therapy: No Assessment: Dipesh Bermudez is a 66 year old male with chronic neck pain with radiation into the shoulders and axial low back pain without radiation. He only has pain while sleeping typically. His pain is most consistent with myofascial pain and facet arthropathy of the lumbar spine. He does have degenerative changes noted in the cervical spin on imaging studies. He smokes a pack of cigarettes a day which will impact his overall health and his chronic pain. I have encouraged him to try to quit smoking. I believe he will benefit from participating in PT. I would also like him to try Sal[place] Patches over the affected areas before bed time. Since he does not find any relief from taking Ibuprofen, I suggest that he discontinue this medication. He may be a candidate for interventional options in the future if he fails to improve with conservative management. (M79.1) Myofascial pain (primary encounter diagnosis) (M54.2) Neck pain (M54.5, G89.29) Chronic bilateral low back pain without sciatica (R53.81) Physical deconditioning (R26.9) Abnormality of gait (D32.9) Benign neoplasm of meninges (HCC) Plan: 1. A referral to PT was provided to the patient. 2. Recommend using Salon Pas patches over the affected areas before bedtime. 3. Discontinue ibuprofen. 4. Return to clinic after completing PT. 5. Consider interventional options in the future if his pain does not improve with conservative management. The above plan and management options were discussed at length with patient. The patient is in agreement with the above and verbalized understanding. Rubin Lennon MD Staff Physician [facility] September 07, 2017 8:27 AM LEEROYOV Observed: 09/07/2017 Status: COMPLETED Source: [place] 7:40 AM [facility] REPOSITORY Office Visit (SPMPTW) DIPESH BERMUDEZ ([id number]) 1950 M [facility] Date Time Provider Department 09/07/17 7:40 AM RUBIN LENNON SPMPTW During your visit today, we recorded the following information about you: Pulse Respiration Blood pressure Weight 80/minute 16/minute 143/89 100.2 kg Height 1.76 m Rubin Lennon MD 09/07/2017 9:45 AM Signed [facility] [address] [place] [address] New Patient Chronic Pain Consult Note Date: September 07, 2017 - 7:57 AM Referring physician: Christy Esquivel I This consult was requested by Christy Esquivel I for my medical opinion. My final recommendations will be communicated to the referring physician by way of the shared medical record for internal providers or by letter via the [employer] for external providers. Nursing Assessment: AMB ROOMING INTAKE FLOWSHEET DATA Risk Screening Do you have concerns about personal safety or safety in the home?: No Pain Pain Score: 5/10 Pain Location: Back-Lower Description: Aching, Stabbing Duration Amount of Time: 7 Duration Units: Months Frequency: Continuous Intervention: Medication Does the pain radiate? No. Distribution: back pain greater than leg pain. Is the pain related to trauma? No Best pain intensity (on a scale of 0-10/10): 5 Worst pain intensity (on a scale of 0-10/10): 10 Exacerbating factors: lying down Alleviating factors: sitting Previous pain treatments: medications Occupation: Disabled Past Medical History: PAST MEDICAL HISTORY Diagnosis Date - Anterior chest wall pain - Arthritis - Ataxia Able to ambulate but uses wheelchair - Backache - Benign neoplasm of brain (HCC) meningioma - Benign neoplasm of meninges (HCC) stable 1.5 x2.5 cm mass in left anterior-posterior - Bipolar 1 disorder (HCC) - Bipolar I disorder (HCC) - Bronchitis - Chest pain - Chronic obstructive lung disease (HCC) - Cough - Diabetes (HCC) - Essential hypertension - Essential tremor - HBP (high blood pressure) - Headache intermittent - Heart disease - Hx of peptic ulcer - Hyperlipidemia - Hypoglycemia associated with diabetes (HCC) - Hyponatremia - Irregular heartbeat - Leg cramp - Low back pain - Lymphedema - Near syncope - Neck pain - Obstructive sleep apnea syndrome CPAP - Osteoarthritis - Paranoid personality (disorder) - Seizure (HCC) - Solitary pulmonary nodule present on computed tomography of lung - Tietze's disease - Type 2 diabetes mellitus (HCC) goes to [place] Past Surgical History: PAST SURGICAL HISTORY Procedure Laterality Date - PAST SURGICAL HISTORY OF Right tib - PAST SURGICAL HISTORY OF brain surg - PAST SURGICAL HISTORY OF Remove lung, partial Family History: FAMILY HISTORY Problem Relation Age of Onset - Stroke Mother Social History: Alcohol Use: Approximately 1.5 oz/week [which includes 1 Cans of Beer (12oz) per week] (quit July/drinks 1 beer/day) Tobacco Use: 1 packs/day Types: Cigarettes. Ready to quit: No. Drug Use: No Psychiatric History: depression, anxiety Allergies: ALLERGIES Allergen Reactions - Insulin Nph Human I* Other: See Comments Other allergic reaction CAUSES HYPERGLYCEMIA Onset Date: 2006 - Asa [Aspirin] Intolerance - Codeine Intolerance - Penicillins Unknown Current Outpatient Medications: Current Outpatient Prescriptions: amLODIPine (NORVASC) 10 mg tablet Take 10 mg by mouth once daily. divalproex ER (DEPAKOTE ER) 500 mg 24 hr tablet Take 500 mg by mouth once daily. LANTUS SOLOSTAR 100 unit/mL (3 mL) inpn albuterol (PROVENTIL) 2.5 mg /3 mL (0.083 %) nebulizer solution Use 2.5 mg via nebulizer every 6 hours as needed. ALBUTEROL SULFATE INHALATION Inhale 1 Puff as instructed four times daily as needed. IPRATROPIUM BROMIDE INHALATION Inhale as instructed four times daily. ketoconazole (NIZORAL) 2 % shampoo Apply 1 application to affected area once daily. INSULIN GLARGINE,HUM.REC.ANLOG (LANTUS SUBCUTANEOUS) Inject 45 Units/mL subcutaneously daily at bedtime. metFORMIN (GLUCOPHAGE) 500 mg tablet Take 1,000 mg by mouth twice daily. mupirocin (BACTROBAN) 2 % ointment Apply 1 application to affected area twice daily. insulin aspart (NOVOLOG) 100 unit/mL inpn Inject 12 Units subcutaneously three times daily. POLYETHYLENE GLYCOL 3350 ORAL Take 17 g by mouth once daily. PRN TOLNAFTATE TOPICAL Apply to affected area. 1 powder Once per day Topical hydrochlorothiazide (HYDRODIURIL, ESIDRIX) 25 mg tablet ibuprofen (MOTRIN) 800 mg tablet Lisinopril 30 mg tablet risperiDONE (RISPERDAL) 3 mg tablet VENTOLIN HFA 90 mcg/actuation inhaler metFORMIN (GLUCOPHAGE) 1,000 mg tablet Topiramate (TOPAMAX) 50 mg tablet ZOSTAVAX, PF, 19,400 unit/0.65 mL injection No current facility-administered medications for this visit. Review of Systems: GENERAL: Any recent malaise or fevers? No HEENT: Any frequent or significant headaches? Yes - headaches Any recent changes in hearing or vision, nose bleeds or other nasal problems? No NECK: Any lumps, goiter, pain and significant neck swelling? Yes - neck and shoulder pain RESPIRATORY: Any recent cough, wheezing or shortness of breath? No CARDIOVASCULAR: Any recent chest pain, leg swelling or palpitations? No GASTROINTESTINAL: Any recent abdominal discomfort, blood in stools or black stools or change in bowel habits? No GENITOURINARY: Any history of dysuria, frequency or incontinence? No PEANUT SHELLER: Any for abnormal vaginal bleeding, abnormal vaginal discharge? N/A MUSCULOSKELETAL: Any joint pain or swelling, back pain or muscle pain? Yes - head pain, neck and b/l shoulder pain, low back pain NEUROLOGIC: Any recent focal numbness or weakness, dizziness or syncope? Yes - left hand tingling and numbness SKIN: Any recent skin lesions, rash, and itching? Yes - left arm scratches (from dog) PSYCHIATRIC: Any recent sleep disturbance, mood disorder and recent psychosocial stressors? Yes - sleep HEMATOLOGIC/LYMPHATIC/IMMUNOLOGIC: Any problems with prolonged bleeding, bruising easily or swollen nodes? Yes - bleeding ENDOCRINE: Any cold or heat intolerance, polyuria, polydipsia and goiter? No The remainder of the ROS was negative. Jay Chamberlain Ma September 07, 2017 7:57 AM Nursing Attestation: I have reviewed the nursing documentation, edited the information as necessary, and confirmed the pertinent information with the patient. Rubin Lennon MD 8:00 AM History of Present Illness: File Conversion Operator, Vinita Asher, present during the entire encounter Dipesh Bermudez is a 66 year old male who presents with a chief complaint of low back without radiation and neck pain that radiates into both shoulders. The patient reports numbness in the left hand for years. He states he was given a brace years ago. The patient reports weakness in the left arm from the elbow down. The patient denies any loss of bowel or bladder function. The pain in the back and the neck are equal. The pain started 6-7 months ago without any inciting event. The pain is intermittent. The pain tends to occur and neck when he sleeps. He denies any pain during waking hours. He then states that once in a while he will have pain when he is awake. He has not participated in PT. He has tried Mobic in the past without benefit. He is taking ibuprofen without benefit. He has also tried Flexeril from [facility] which did help with the pain. He also states he received Percocet which did help with his pain. He smokes a pack of cigarettes a day. He states he has tried to quit but has not been successful. 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 OARRS Report: Reviewed: The patient's OARRS report was reviewed and is consistent with the reported medication use. Physical Examination: BP 190/96 Pulse 81 Resp 16 Ht 5' 9.291ANDquot; (1.76m) Wt 221 lb (100.2kg) BMI 32.36 kg/(m2). General: Obese, well appearing, alert, in no acute distress Skin: skin color, texture, turgor normal, multiple abrasions on the left arm, posterior neck and base of the skull. HEENT: normocephalic, atraumatic, sclera non-icteric Cardiovascular: Regular rate and rhythm, no murmur, clicks or rubs - pulses present bilaterally and pulses equal Lungs: Lungs clear to auscultation. No wheezing, rhonchi, rales Musculoskeletal: Neck: Supple; good ROM with pain on end range. Tenderness over the bilateral cervical paraspinal muscles Back: Tenderness on palpation over the thoracic spine. Tenderness on palpation over the lumbar spine. Tenderness over the bilateral lumbar paraspinal muscles. Pain reproduced with extension of the lumbar spine. Facet loading is positive bilaterally. Extremities: Extremities normal. No deformities, edema, or skin discoloration Neurological: Mental Status: alert, oriented to person, place and time Cranial Nerves: Not examined Reflexes: Patellar reflexes are 2+. Motor Strength: Motor strength and tone are 5/5 all throughout. Sensory: Sensation was intact to light touch all throughout. Gait: Antalgic. The patient can walk on his heels. The patient can walk on his toes. Recent Imaging: EXAMINATION: ?MRI CERVICAL SPINE W/O CONTRAST ? CLINICAL HISTORY: ?Neck pain radiating into shoulders, left hand numbness ? TECHNIQUE: Routine cervical spine MR protocol without gadolinium. ? COMPARISON: MRI ? ? RESULT: ? Counting reference: ?Craniocervical junction. ? ? Alignment: ? ?Alignment is anatomic. ? Craniocervical junction: ? ?Unremarkable. ?Redemonstration of bilateral chronic cerebellar infarcts. ? Cord: ?The visualized cord is within normal limits of signal intensity and morphology. ? Bone marrow signal/fracture: ? ?No evidence of pathologic marrow infiltration. ?No ?evidence of prior fracture. ? Cervical soft tissues: ? ?The paraspinal soft tissues are within normal limits. ? C2-C3: No osseous or disc abnormality ? C3-C4: Minimal uncovertebral spurs ? C4-C5: Asymmetric moderate degenerative left central canal stenosis and severe left foraminal stenosis due to left posterior disc/osteophyte complex deforms the left ventral portion of the cord seen on axial image 13, unchanged ? C5-C6: Moderate degree of degenerative central and foraminal stenosis, greater towards right side, secondary to disc/osteophyte complexes. ? C6-C7: Moderate degree of degenerative central and foraminal stenosis secondary to ?disc/osteophyte complex and posterior hypertrophic changes with mild degree mass effect on the ventral and dorsal aspect of the cord seen on T2 sagittal image 8, unchanged ? C7-T1: no osseous or disc abnormality. At the T2-T3 level, endplate degenerative changes with bilateral foraminal stenosis secondary to spurs. ? ? IMPRESSION: ? No significant change from 04/10/2014 MRI. No evidence of soft disc herniation. Redemonstration of multilevel degenerative central and foraminal stenosis most prominent C4-5 and C6-7 levels due to posterior spurs and posterior hypertrophic changes with mild mass effect/deformity of the spinal cord as listed above Recent Labs: Hemoglobin A1C (%) Date Value 12/01/2015 8.5 HGBA1C (%) Date Value 04/21/2016 7.4 Albumin (g/dL) Date Value 04/21/2016 3.6 HDL Cholesterol (mg/dL) Date Value 04/21/2016 47 LDL Calculated (mg/dL) Date Value 04/21/2016 142 Triglyceride (mg/dL) Date Value 04/21/2016 213 ] Glucose (mg/dL) Date Value 01/19/2017 60 (L) 04/21/2016 198 (A) BUN (mg/dL) Date Value 01/22/2017 11 Creatinine (mg/dL) Date Value 01/22/2017 0.85 Sodium (mEq/L) Date Value 01/19/2017 137 Potassium (mEq/L) Date Value 01/19/2017 4.0 Chloride (mEq/L) Date Value 01/19/2017 102 CO2 (mEq/L) Date Value 01/19/2017 29 Protein, Total (g/dL) Date Value 04/21/2016 7.5 Albumin (g/dL) Date Value 04/21/2016 3.6 Calcium (mg/dL) Date Value 01/19/2017 9.1 Alkaline Phosphatase (U/L) Date Value 04/21/2016 114 Bilirubin, Total (mg/dL) Date Value 04/21/2016 0.4 AST (U/L) Date Value 04/21/2016 4 (L) ALT (U/L) Date Value 04/21/2016 10 (L) WBC (thou/cmm) Date Value 01/19/2017 12.77 (H) RBC (mil/cmm) Date Value 01/19/2017 5.10 Hemoglobin (g/dL) Date Value 09/14/2015 15.3 HGB (g/dL) Date Value 01/19/2017 13.8 Hematocrit (%) Date Value 01/19/2017 43.4 MCV (fl) Date Value 01/19/2017 85.1 MCH (pg) Date Value 01/19/2017 27.1 MCHC (%) Date Value 01/19/2017 31.8 (L) Platelet Count (thou/cmm) Date Value 01/19/2017 299 MPV (fl) Date Value 01/19/2017 9.4 EMG/NCV: NONE Current Anticoagulant Therapy: No NSAID: Yes: Ibuprofen Physical Therapy: No Assessment: Dipesh Bermudez is a 66 year old male with chronic neck pain with radiation into the shoulders and axial low back pain without radiation. He only has pain while sleeping typically. His pain is most consistent with myofascial pain and facet arthropathy of the lumbar spine. He does have degenerative changes noted in the cervical spin on imaging studies. He smokes a pack of cigarettes a day which will impact his overall health and his chronic pain. I have encouraged him to try to quit smoking. I believe he will benefit from participating in PT. I would also like him to try Salon Pas Patches over the affected areas before bed time. Since he does not find any relief from taking Ibuprofen, I suggest that he discontinue this medication. He may be a candidate for interventional options in the future if he fails to improve with conservative management. (M79.1) Myofascial pain (primary encounter diagnosis) (M54.2) Neck pain (M54.5, G89.29) Chronic bilateral low back pain without sciatica (R53.81) Physical deconditioning (R26.9) Abnormality of gait (D32.9) Benign neoplasm of meninges (HCC) Plan: 1. A referral to PT was provided to the patient. 2. Recommend using Salon Pas patches over the affected areas before bedtime. 3. Discontinue ibuprofen. 4. Return to clinic after completing PT. 5. Consider interventional options in the future if his pain does not improve with conservative management. The above plan and management options were discussed at length with patient. The patient is in agreement with the above and verbalized understanding. Rubin Lennon MD Staff Physician [facility] Management September 07, 2017 8:27 AM Jay Chamberlain Ma 09/07/2017 8:11 AM Signed Pt was instructed to follow up with PCP or make a nurse visit within the next 2 weeks regarding elevated Blood Pressure. Patient verbalizes understanding and has no other questions or concerns at this time. Jay Chamberlain CMa September 07, 2017 8:11 AM Rubin Lennon MD 09/07/2017 8:24 AM Signed Salon Pas Patches (menthol, camphor, methyl salicylate) Referring Provider: CHRISTY ESQUIVEL I [[id number]] Allergies As of Date: 09/07/2017 Noted Allergy Reaction INSULIN NPH HUMAN ISOPHANE 09/18/2015 14 - Other: See Comments Comments: Other allergic reaction CAUSES HYPERGLYCEMIA Onset Date: 2006 ASA (ASPIRIN) 03/28/2015 5 - Intolerance CODEINE 03/28/2015 5 - Intolerance PENICILLINS 03/28/2015 16 - Unknown Date Reviewed: 09/07/2017 Reviewed by: Jay Chamberlain Ma - Fully Assessed Reason for Visit: Consult [173] Cmt: back pain, b/l shoulder pain Reason For Visit History Recorded Primary Visit Diagnosis:Myofascial pain [M79.1] Other Visit Diagnoses:Neck pain [M54.2] Chronic bilateral low back pain without sciatica [M54.5, G89.29] Physical deconditioning [R53.81] Abnormality of gait [R26.9] Benign neoplasm of meninges (HCC) [D32.9] Order(s):CONSULT TO PHYSICAL THERAPY [9032] Order #: [id number]: 1 Prescriptions as of 09/07/2017 Sig: AMLODIPINE 10 MG TABLET Take 10 mg by mouth once gulshan* DIVALPROEX ER 500 MG TABLET,E* Take 500 mg by mouth once rochelle* LANTUS SOLOSTAR U-100 INSULIN* ALBUTEROL SULFATE 2.5 MG/3 ML* Use 2.5 mg via nebulizer ever* ALBUTEROL SULFATE INHALATION Inhale 1 Puff as instructed f* IPRATROPIUM BROMIDE INHALATION Inhale as instructed four ti* KETOCONAZOLE 2 % SHAMPOO Apply 1 application to affect* LANTUS SUBCUTANEOUS Inject 45 Units/mL subcutaneo* METFORMIN 500 MG TABLET Take 1,000 mg by mouth twice * MUPIROCIN 2 % TOPICAL OINTMENT Apply 1 application to affect* INSULIN ASPART U-100 100 UNI* Inject 12 Units subcutaneousl* POLYETHYLENE GLYCOL 3350 ORAL Take 17 g by mouth once daily* TOLNAFTATE TOPICAL Apply to affected area. 1 po* HYDROCHLOROTHIAZIDE 25 MG TAB* IBUPROFEN 800 MG TABLET LISINOPRIL 30 MG TABLET RISPERIDONE 3 MG TABLET VENTOLIN HFA 90 MCG/ACTUATION* METFORMIN 1,000 MG TABLET TOPIRAMATE 50 MG TABLET ZOSTAVAX (PF) 19,400 UNIT/0.6* Medication notes this encounter AMLODIPINE 10 MG TABLET >> Jay Chamberlain Ma 09/07/2017 7:51 AM >> JAY CHAMBERLAIN MA Sep 07, 2017 7:51 AM Received from: External Pharmacy Received Sig: TAKE ONE TABLET BY MOUTH ONCE DAILY DIVALPROEX ER 500 MG TABLET,EXTENDED RELEASE 24 HR >> Jay Chamberlain Ma 09/07/2017 7:53 AM >> JAY CHAMBERLAIN MA Sep 07, 2017 7:53 AM Received from: External Pharmacy TOPIRAMATE 100 MG TABLET >> Jay Chamberlain Ma 09/07/2017 7:54 AM >> JAY CHAMBERLAIN MA Sep 07, 2017 7:54 AM Not taking SILDENAFIL 100 MG TABLET >> Jay Chamberlain Ma 09/07/2017 7:53 AM >> JAY CHAMBERLAIN MA Sep 07, 2017 7:53 AM Not taking TRAZODONE 100 MG TABLET >> Jay Chamberlain Ma 09/07/2017 7:54 AM >> JAY CHAMBERLAIN MA Sep 07, 2017 7:54 AM Not taking Problem List As Of Date 09/07/2017 Noted Resolved Closed displaced oblique fracture of shaft of r*INVALID FOR* Lisfranc dislocation [S93.326A] INVALID FOR* Bipolar 1 disorder (HCC) [F31.9] Benign neoplasm of meninges (HCC) [D32.9] More... Remote history of stroke [Z86.73] INVALID FOR* Other instructions from your clinician: Salon Pas Patches (menthol, camphor, methyl salicylate) Visit Notes: >> Jay Chamberlain Ma dennis Sep 07, 2017 8:10 AM Status: Signed Pt was instructed to follow up with PCP or make a nurse visit within the next 2 weeks regarding elevated Blood Pressure. Patient verbalizes understanding and has no other questions or concerns at this time. Jay Chamberlain CMa September 07, 2017 8:11 AM Medications Discontinued During This Encounter traZODone (DESYREL) 100 mg tablet 03/23/2015 09/07/2017 Class: Historical Med Sig: Disc: Reason for discontinue is not on file. topiramate (TOPAMAX) 100 mg tablet 08/30/2015 09/07/2017 Class: Historical Med Sig: Disc: Reason for discontinue is not on file. sildenafil (VIAGRA) 100 mg tablet 09/07/2017 Class: Historical Med Route: ORAL Sig: Take 100 mg by mouth as needed. Disc: Reason for discontinue is not on file. Follow-up and Disposition History Recorded Letter Text Dipesh Bermudez Authorization for the Release of Medical Information From Other Healthcare Facilities Patient's Name: Dipesh Bermudez #: [id number] [facility] #: [id number] Date of : 1950 (home) Current Address of Physician: Name: Street: City: State: Zip: Physician's Telephone #: FAX Reason for Disclosure: continuation of care (Reason for disclosure must be completed prior to processing) Past Dates of Treatment: ALL Release Medical Information to: SEND TO: Dr. Lennon [facility] [address] [place] [address] (FAX: [phone]) I hereby authorize to release the health information indicated below that is contained in my patient records to [facility]. I understand and acknowledge that this may include treatment for physical and mental illness, alcohol/drug abuse, and/or HIV/AIDS test results or diagnoses. This authorization does not include permission to release outpatient Psychotherapy Notes (*) as defined below. The release of Psychotherapy Notes requires a separate authorization. *Psychotherapy Notes are defined as notes that document private, joint, group, or family counseling sessions that are from the rest of a patient?s medical record. Emergency Department Reports Pathology Reports Discharge Summary Laboratory Reports History AND Physical EMG Reports EKGs Operative Reports Physical/Occupations Therapy Report __x____Other (ALL) Vaccines Radiology Problem List Colonoscopy/EGD Consults This consent is subject to revocation at any time except to the extent the action has been taken thereon. This authorization and consent will one year from the date of authorization written below. I understand that the Recipient of my health information may be charged for the service of releasing medical information. Your health care (or payment for care) will not be affected by whether or not you sign this authorization. Once your health care information is released, re-disclosure of your health care information by the Recipient may no longer be protected by law. Signature of Patient/Legal Guardian: Printed Name:____Dipesh Bermudez Date: Relationship if other than Patient: Self *If other than patient's signature, a copy of legal papers (i.e.. Power of Metal Mover or Certificate) MUST accompany the authorization when presented. Exception: patient is under age 18. Encounter Status:Closed by RUBIN LENNON MD on 09/07/17 YOSSI Observed: 06/07/2017 Status: COMPLETED Source: [place] 9:[address] [facility] OTHER [place] REPOSITORY Office Visit (AKPULM) DIPESH BERMUDEZ ([id number]) 1950 M [facility] Date Time Provider Department 06/07/17 9:00 AM [facility] During your visit today, we recorded the following information about you: Control Analyst: Facesheet ID: [id number] 06/07/2017 12:00 AM Author: J LUIS BUCHANAN Signed by CHANEL PROVIDER on 06/07/2017 at 9:12 AM Document text: Display document [id number] only Referring Provider: TEJA CARLIN [[id number]] Allergies As of Date: 06/07/2017 Noted Allergy Reaction INSULIN NPH HUMAN ISOPHANE 09/18/2015 14 - Other: See Comments Comments: Other allergic reaction CAUSES HYPERGLYCEMIA Onset Date: 2006 ASA (ASPIRIN) 03/28/2015 5 - Intolerance CODEINE 03/28/2015 5 - Intolerance PENICILLINS 03/28/2015 16 - Unknown Date Reviewed: 03/29/2017 Reviewed by: Allan (Tamiko) TAMIKO Segura - Fully Assessed Reason for Visit: COPD [27] Primary Visit Diagnosis:Asthma with chronic obstructive pulmonary disease (COPD) ([facility]) [J44.9] Prescriptions as of 06/07/2017 Sig: VENTOLIN HFA 90 MCG/ACTUATION* METFORMIN 1,000 MG TABLET LANTUS SOLOSTAR 100 UNIT/ML (* TOPIRAMATE 100 MG TABLET ALBUTEROL SULFATE 2.5 MG/3 ML* Use 2.5 mg via nebulizer ever* ALBUTEROL SULFATE INHALATION Inhale 1 Puff as instructed f* IPRATROPIUM BROMIDE INHALATION Inhale as instructed four ti* KETOCONAZOLE 2 % SHAMPOO Apply 1 application to affect* LANTUS SUBCUTANEOUS Inject 45 Units/mL subcutaneo* METFORMIN 500 MG TABLET Take 1,000 mg by mouth twice * MUPIROCIN 2 % TOPICAL OINTMENT Apply 1 application to affect* INSULIN ASPART 100 UNIT/ML SANTOYO* Inject 12 Units subcutaneousl* POLYETHYLENE GLYCOL 3350 ORAL Take 17 g by mouth once daily* SILDENAFIL 100 MG TABLET Take 100 mg by mouth as neede* TOLNAFTATE TOPICAL Apply to affected area. 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 Remote history of stroke [Z86.73] INVALID FOR* Encounter Status:Closed by MINDI ELIZONDO on 06/07/17 CORA Observed: 06/07/2017 Status: COMPLETED Source: [place] 12:00 AM [facility] OTHER [facility] REPOSITORY Telephone (AGSPINE1) DIPESH BERMUDEZ ([id number]) 1950 M [facility] Date Time Provider Department 06/07/17 DARLEEN LESLIE AGSPINE1 During your visit today, we recorded the following information about you: Gerardo Kaur 06/07/2017 8:49 AM Signed The background check and OARRS report have been scanned into the chart. The patient would be coming in for Cervical Myelopathy pain. This is a Non [facility] referral. The referring physician is Dr. Yohannes Hale. The patient has [employer] Medicare insurance. Please review. Have you had Pain Management in the past 3 years? Unkown If yes, where? Are you currently taking pain medication? Unkown If so, please list: Gerardo Leslie MD 06/08/2017 10:10 AM Signed Ok to schedule thanks Rosa Smallwood 06/08/2017 10:27 AM Signed Spoke with patient because of his insurance he needs to obtain an insurance referral. He was provided with [email or web address] fax number to have sent over by his PCP. Rosa Smallwood [employer] Worker to Dr. Darvin Vasques and Dr. Darleen Leslie [place] [facility] [place] [phone] ext [phone] Rosa Smallwood 06/18/2017 10:20 AM Signed Patient didn't know the name or phone number for his PCP, He was advised we couldn't schedule without the referral from his PCP for his insurance requirement. Rosa Smallwood [place] to Dr. Darvin Vasques and Dr. Darleen Yepez [facility] [place] [phone] ext [phone] Allergies As of Date: 06/07/2017 Noted Allergy Reaction INSULIN NPH HUMAN ISOPHANE 09/18/2015 14 - Other: See Comments Comments: Other allergic reaction CAUSES HYPERGLYCEMIA Onset Date: 2006 ASA (ASPIRIN) 03/28/2015 5 - Intolerance CODEINE 03/28/2015 5 - Intolerance PENICILLINS 03/28/2015 16 - Unknown Date Reviewed: 03/29/2017 Reviewed by: Allan Poon) TAMIKO Segura - Fully Assessed Reason for Visit: New Patient [172] Prescriptions as of 06/07/2017 Sig: VENTOLIN HFA 90 MCG/ACTUATION* METFORMIN 1,000 MG TABLET LANTUS SOLOSTAR 100 UNIT/ML (* TOPIRAMATE 100 MG TABLET ALBUTEROL SULFATE 2.5 MG/3 ML* Use 2.5 mg via nebulizer ever* ALBUTEROL SULFATE INHALATION Inhale 1 Puff as instructed f* IPRATROPIUM BROMIDE INHALATION Inhale as instructed four ti* KETOCONAZOLE 2 % SHAMPOO Apply 1 application to affect* LANTUS SUBCUTANEOUS Inject 45 Units/mL subcutaneo* METFORMIN 500 MG TABLET Take 1,000 mg by mouth twice * MUPIROCIN 2 % TOPICAL OINTMENT Apply 1 application to affect* INSULIN ASPART 100 UNIT/ML SANTOYO* Inject 12 Units subcutaneousl* POLYETHYLENE GLYCOL 3350 ORAL Take 17 g by mouth once daily* SILDENAFIL 100 MG TABLET Take 100 mg by mouth as neede* TOLNAFTATE TOPICAL Apply to affected area. 1 po* HYDROCHLOROTHIAZIDE 25 MG TAB* IBUPROFEN 800 MG TABLET LISINOPRIL 30 MG TABLET RISPERIDONE 3 MG TABLET TOPIRAMATE 50 MG TABLET TRAZODONE 100 MG TABLET ZOSTAVAX (PF) 19,400 UNIT/0.6* Problem List As Of Date 06/07/2017 Noted Resolved Closed displaced oblique fracture of shaft of r*INVALID FOR* Lisfranc dislocation [S93.326A] INVALID FOR* Bipolar 1 disorder (HCC) [F31.9] Benign neoplasm of meninges (HCC) [D32.9] More... Remote history of stroke [Z86.73] INVALID FOR* Encounter Status:Closed by GERARDO KAUR on 06/07/17 ALLERGIES ALLERGIES DATE TYPE / NAME / CODE REACTION SEVERITY SOURCE CODE 04/18/2018 Drug Insulins/[id number] Unknown Unknown Marcial Allergy/41 77(RXNORM) [facility] [id number]([facility]) Repository 04/18/2018 Drug Penicillins/F0010 Unknown Unknown Marcial Allergy/41 41443(RXNORM) [facility] [id number]([facility]) Repository 04/18/2018 Drug codeine/[id number] Unknown Unknown Marcial Allergy/41 0(RXNORM) [facility] 2471550(SN [facility] OMED [facility]) Repository 09/18/2015 DRUG INSULIN NPH HUMAN OTHER: SEE C High [facility] INGREDI/41 ISOPHANE Other [place] 0769237(SN Repository OMED CT) 03/28/2015 DRUG ASPIRIN INTOLERANCE [facility] INGREDI/41 Other [place] 7153524(SN Repository OMED CT) 03/28/2015 DRUG CODEINE INTOLERANCE [facility] INGREDI/41 Other [place] 9283991(SN Repository OMED CT) 03/28/2015 Drug PENICILLINS UNKNOWN [facility] Class/4195 Other [place] [address]184(SNOM Repository ED CT) NG/3040332 INSULIN NPH HUMAN [facility] 06([facility]OMED [facility]) Repository NG/6600440 ASPIRIN [facility] 06(SNOMED [facility] CT) Repository NG/8355949 CODEINE [facility] 06(SNOMED [facility]) Repository NG/6061026 PENICILLINS [facility] 06(Virdocs SoftwareOMED Health [facility] CT) Repository ENCOUNTERS ENCOUNTERS ADMIT/DISCHARGE ACCOUNT NUMBER ADMITTING ENCOUNTER LOCATION SOURCE CLASS 04/18/2018/05/02/20 [id number] GRACIELA BARBOZA Inpatient UHCBuilding: [place] [address] Encounter [id number]: [facility] [id number]: Repository [id number] 04/18/2018/04/18/20 [id number] Emergency [place] Marcial[address] ding:ED Repository 04/11/2018 [id number] Ambulatory [address] [place] [address] Repository 03/13/2018 [id number] Ambulatory [facility] Repository 02/24/2018 [id number] Ambulatory [facility] Repository 02/10/2018/04/04/[id number] Tal Inpatient UHCBuilding: [place] [address] Allie Ruiz Encounter [id number]: [facility] [id number]: Repository [id number] 02/10/2018/02/11/[id number] Tal Ambulatory UHCBuilding: [place] [address] Allie Ruiz TRADRoom: Hospitals LHFW1Vhl: Repository TRAD22 12/15/2017 [id number] Ambulatory [facility] Repository 12/02/2017 [id number] Ambulatory [facility] Repository 11/30/2017/12/02/19 [id number] Ambulatory [address] Main [place] Repository 11/15/2017 [id number] Ambulatory [facility] Repository 11/11/2017/06/28 [id number] Ambulatory [address] Other [place] Repository 11/11/2017/11/12/19 [id number] Ambulatory [place] [address] MEDICAL Repository CENTERBuildi ng:AKPTL 11/09/2017 [id number] Ambulatory [place] [facility] MEDICAL Repository CENTERBuildi ng:AKPTL 11/04/2017/11/05/19 [id number] Ambulatory [address] Repository 11/04/2017/11/05/19 [id number] Ambulatory [place] [address] MEDICAL Repository CENTERBuildi ng:AKPTL 11/01/2017/11/02/19 [id number] Ambulatory [address] Repository 11/01/2017/11/02/19 [id number] Ambulatory [place] [address] MEDICAL Repository CENTERBuildi ng:AKPTL 10/28/2017 [id number] Ambulatory [place] [facility] MEDICAL Repository CENTERBuildi ng:AKPTL 10/25/2017 [id number] Ambulatory [place] [facility] MEDICAL Repository CENTERBuildi ng:AKPTL 10/20/2017 [id number] Ambulatory [place] [facility] MEDICAL Repository CENTERBuildi ng:AKPTL 10/19/2017/10/20/19 [id number] Ambulatory [address] Repository 10/19/2017/10/20/19 [id number] Ambulatory [place] [address] MEDICAL Repository CENTERBuildi ng:AKPTL 10/18/2017 [id number] Ambulatory [place] [facility] MEDICAL Repository CENTERBuildi ng:AKPTL 10/14/[id number] Tal Ambulatory [facility] Repository 10/08/2017/10/09/19 [id number] Ambulatory [address] Repository 10/08/2017/10/09/19 [id number] Ambulatory [place] [address] MEDICAL Repository CENTERBuildi ng:AKPTL 10/06/2017 [id number] Ambulatory [place] [facility] MEDICAL Repository CENTERBuildi ng:AKPTL 10/04/2017/05/21/20 [id number] Ambulatory [address] Other [place] Repository 10/04/2017/10/05/19 [id number] Ambulatory [place] [address] MEDICAL Repository CENTERBuildi ng:AKPTL 10/01/2017/10/02/19 [id number] Ambulatory [address] Other [place] Repository 10/01/2017/10/02/19 [id number] Ambulatory [place] [address] MEDICAL Repository CENTERBuildi ng:AKPTL 09/29/2017 [id number] Ambulatory [place] [facility] MEDICAL Repository CENTERBuildi ng:AKPTL 09/23/2017/09/24/19 [id number] Ambulatory [address] Other [place] Repository 09/23/2017/09/24/19 [id number] Ambulatory [place] [address] MEDICAL Repository CENTERBuildi ng:AKPTL 09/21/2017 [id number] Ambulatory [facility] MEDICAL Repository CENTERBuildi ng:AKPTL 09/15/2017/09/16/19 [id number] Ambulatory [address] Other [place] Repository 09/15/2017/09/16/19 [id number] Ambulatory [place] [address] MEDICAL Repository CENTERBuildi ng:AKPTL 09/07/2017/09/09/19 [id number] Ambulatory [address] [place] Repository 06/07/2017 [id number] Ambulatory [facility] Other [place] Repository 06/07/2017 [id number] Ambulatory [facility] MEDICAL Repository CENTERBuildi ng:AKPULM PAYERS PAYERS ENCOUNTER GUARANTOR PAYER SUBSCRIBER SOURCE 04/18/2018 [facility]ESH [facility]: Insurance:A[facility]Pol[facility]: [facility] [id number] Number: [id number] [facility] MEBJDFBHEffective [place], [place] Date:Plan Name:[place], [place] [address]Mft: [phone]: () [phone] () 04/18/2018 DIPESH [place] [facility] Primary DIPESH [place] [facility] HEALTH Insurance:MEDICARE PART DOWELLDOB: Community CARE [id number] A BPolicy Number: [id number] [facility] EMIGDIOLA [id number] Repository [facility] [place] Date:2018-04-18 06181Lyh: (HP) 04/18/2018 Secondary [facility] Marcial Insurance:SELF PAY Community INSURANCEPolicy Number: Hospital Effective Repository Date:2018-04-18 04/11/2018 [facility]: Insurance:AetnaPolErlanger Western Carolina HospitalB: [facility] Number: [id number] Repository [facility] CENTERBJDFBHEffective [facility] [place] Date:Plan Name:[place], [place] [address]Ggo: [phone]: (HP) [phone] (HP) 04/11/2018 Secondary [facility] Insurance:MedicarePolic MCDOWELLDOB: Hospitals y Number: [id number] Repository [id number] KAILUA KONA Date:Plan Name:[facility] [place], [place] [address]Gav: (HP) 04/11/2018 Tertiary [facility] Insurance:MedicarePolic MCDOWELLDOB: Hospitals y Number: [id number] Repository [id number] KAILUA KONA Date:Plan Name:[facility] Clotilde [place], [place] [address]Xep: (HP) 03/13/2018 [facility]: Insurance:AetnaECU HealthB: [facility] Number: [id number] Repository [facility] HOMEJDFBHEffective [facility], [place] Date:Plan Name:[place], [place] [address]Tsp: [phone]: (HP) [phone] (HP) 03/13/2018 Secondary [facility] Insurance:[facility]-Fin[facility] HospitalB: Hospitals Administration [id number] Repository [facility] HospitalPolicy Number: XAVIERGOSHEN [id number] [facility] [place] Date:Plan Name:Health [address]Xnm: (HP) 03/13/2018 [facility] Insurance:[facility] CenterB: [facility] [id number] Repository [facility] HospitalPolicy Number: [place] [id number] [address]Qry: (234) Date:Plan Name:Health [phone] (HP) 02/24/2018 [facility] CenterB: Insurance:AetnaPolErlanger Western Carolina HospitalB: [facility] Number: [id number] Repository [facility] CENTERBJDFBHEffective [facility], [place] Date:Plan Name:[place], [place] [address]Luz: [phone]: (HP) [phone] (HP) 02/10/2018 [facility]B: Insurance:[facility] HospitalB: [facility] Administration [id number] Repository [facility] Hospitalic Number: [place] [id number] [facility] UNITJOSE[place]IGO, [place] [address]Pqg: (234) Date:Plan Name:Health [address]Jux: (HP) [phone] (HP) 02/10/2018 [facility] CenterB: Insurance:AeOn license of UNC Medical CenterB: [facility] Number: [id number] Repository [facility] CENTERBJDFBHEffective [facility], [place] Date:Plan Name:[place], [place] [address]Jks: [phone]: (HP) [phone] (HP) 02/10/2018 [facility] Insurance:[facility] CenterB: [facility] Conne[facility] [id number] Repository [facility] SecondaryPolicy Number: CHU BONE [id number] [address]Qgk: (234) Date:Plan Name:Health [phone] (HP) 12/15/2017 [facility]B: Insurance:Critical access hospital: [facility] Number: [id number] Repository [facility] CENTERBJDFBHEffeAlburgh, [place] Date:Plan Name:Health [place] [address]Njd: [phone]: (HP) [phone] (HP) 12/15/2017 [facility] Insurance:[facility]: [facility] Healthcare Connected [id number] Repository [facility] SecondaryPolicy Number: CHU BONE [id number] [address]Ggu: (234) Date:Plan Name:Health [phone] () 12/02/2017 [facility]B: Insurance:[facility]: [facility] [id number] Repository [facility] UnitPolicy Number: [facility] ARMS HOSPITALGOSHEN [place] [id number] [facility]ICE UNITJOSEAMIGO, [place] [address]Eie: (234) Date:Plan Name:Health [address]Yhb: (HP) [phone] (HP) 12/02/2017 [facility] Insurance:Critical access hospital: [facility] Number: [id number] Repository NEBJDFBHEffective XAVIERGOSHEN Date:Plan Name:Health [facility]ICE UNITJOSEAMIGO, [place] [address]Ivu: (HP) 12/02/2017 [facility] Insurance:[facility]: [facility] Healthcare Connected [id number] Repository [facility] HospitalPolicy Number: [place] [id number] [address]Olk: (234) Date:Plan Name:Health [phone] (HP) 11/15/2017 [facility]Y T [facility]B: Insurance:Quorum HealthB: [facility] Number: [id number] Repository KAILUA KONA BJDFBHEffective [facility] CENTERISREAL LOUIESP [place] Date:Plan Name:[place], [place] [address]Twy: [phone]: (HP) [phone] (HP) 11/15/2017 Secondary DIPESH T [facility] Insurance:[facility] CenterB: [facility] [id number] Repository [facility] Number: [place] [id number] [address]Nwl: (234) Date:Plan Name:[place] [phone] () 11/11/2017 DIPESH T Primary Insurance:AETNA DIPESH T [facility]: MEDICARE HMOPolicy MCDOWELLDOB: Health System Number: [id number] Repository CARMENLOS, BJDFBHEffective Date: [place] [address]Nkt: (HP) 11/11/2017 Secondary DIPESH T [facility] Insurance:[facility]: Health System MEDICAID ONLYPolunitypoint health-[facility] [id number] Repository Number: [id number] Date: 11/09/2017 DIPESH T Primary Insurance:AETNA DIPESH T [facility]B: MEDICARE HMOPolicy MCDOWELLDOB: Health System Number: [id number] Repository AMARILYSARVIND, BJDFBHEffective Date: [place] [address]Bow: (HP) 11/09/2017 Secondary DIPESH T [facility] Insurance:[facility] WAX[facility]WB: Health System MEDICAID ONLYPolunitypoint health-[facility] [id number] Repository Number: [id number] Date: 11/04/2017 DIPESH T Primary Insurance:AETNA DIPESH T [facility]: MEDICARE HMOPolicy MCDOWELLDOB: Health System Number: [id number] Repository ME MONABJDFBHEffective Date: [place] [address]Hgk: (HP) 11/04/2017 Secondary DIPESH T [facility] Insurance:[facility]ITALELLD[facility]: Health System [facility] [id number] Repository Number: [id number] Date: 11/01/2017 DIPESH T Primary Insurance:AETNA DIPESH T [facility]UN[facility] HOSPITALOWELLDOB: MEDICARE HMOPolicy MCDOWELLDOB: [facility] System Number: [id number] Repository MONA BJDFBHEffective Date: [place] [address]Oci: (HP) 11/01/2017 Secondary DIPESH T [facility] Insurance:[facility]OSPITALELLDOB: Health System MEDICAID [facility] [id number] Repository Number: [id number] Date: 10/28/2017 DIPESH T Primary Insurance:AETNA DIPESH T [facility] [place] [facility]: MEDICARE HMOPolicy MCDOWELLDOB: Health System Number: [id number] Repository MONA BJDFBHEffective Date: [place] [address]Owr: (HP) 10/28/2017 Secondary DIPESH T [facility] Insurance:[facility] HOSPITALELLDOB: Health System MEDICAID [facility] [id number] Repository Number: [id number] Date: 10/25/2017 DIPESH T Primary Insurance:AETNA DIPESH T [facility]LLD[facility]: MEDICARE HMOPolicy MCDOWELLDOB: Health System Number: [id number] Repository AMARILYSARVIND BJDFBHEffective Date: [place] [address]Iyn: (HP) 10/25/2017 Secondary DIPESH T [facility] Insurance:[facility] HOSPITALELLDOB: Health System MEDICAID [facility] [id number] Repository Number: [id number] Date: 10/20/2017 DIPESH T Primary Insurance:AETTREY Yepez [facility] CareB: MEDICARE HMOPolicy MCDOWELLDOB: [facility] System Number: [id number] Repository ME MONABJDFBHEffective Date: [place] [address]Vqp: () 10/20/2017 Secondary DIPESH T [facility] Insurance:[facility]: Health System MEDICAID [facility] [id number] Repository Number: [id number] Date: 10/19/2017 DIPESH T Primary Insurance:AETNA DIPESH Cmron [facility] CareB: MEDICARE HMOPolicy MCDOWELLDOB: [facility] Number: [id number] Repository MONA BJDFBHEffective Date: [place] [address]Lag: () 10/19/2017 Secondary DIPESH T [facility] Insurance:[facility]: Health System MEDICAID [facility] [id number] Repository Number: [id number] Date: 10/18/2017 DIPESH T Primary Insurance:AETTREY Yepez [facility]: MEDICARE HMOPolicy MCDOWELLDOB: [facility] Number: [id number] Repository MONA BJDFBHEffective Date: [place] [address]Ltz: () 10/18/2017 Secondary DIPESH T [facility] Insurance:[facility]: Health System MEDICAID [facility] [id number] Repository Number: [id number] Date: 10/14/2017 DIPESH T Primary DIPESH T [facility]: Insurance:Critical access hospital: [facility] Number: [id number] Repository CARMEN HUNTERJDFBHEffective [place] Date:Plan Name:[facility] [place] [address]Jdd: [phone]: (HP) [phone] (HP) 10/14/2017 Secondary DIPESH T University Insurance:[facility]: [facility] [id number] Repository [facility] XAVIERGOSHEN Number: [place] [id number] [phone]: (234) Date:Plan Name:[place] [phone] () 10/08/2017 DIPESH T Primary Insurance:AETNA DIPESH T [facility]: MEDICARE HMOPolicy MCDOWELLDOB: [facility] System Number: [id number] Repository DALE DUNNJDFBHEffective Date: [place] [address]Ynm: () 10/08/2017 Secondary DIPESH T [facility] Insurance:[facility]: [facility] System MEDICAID ONLYPolicy [id number] Repository Number: [id number] Date: 10/06/2017 DIPESH T Primary Insurance:AETNA DIPESH T [facility] [place] [facility]: MEDICARE HMOPolicy MCDOWELLDOB: [facility] System Number: [id number] Repository [facility]OSPITALBJDFBHEffective Date: [place] [address]Esc: () 10/06/2017 Secondary DIPESH T [facility] Insurance:[facility]AX[facility]WB: [facility] System MEDICAID [facility] [id number] Repository Number: [id number] Date: 10/04/2017 DIPESH T Primary Insurance:AETNA DIPESH T [facility]: MEDICARE HMOPolicy MCDOWELLDOB: [facility] System Number: [id number] Repository [facility]OSPITALBJDFBHEffective Date: [place], [place] [address]Dve: () 10/04/2017 Secondary DIPESH T [facility] Insurance:[facility]: [facility] System MEDICAID [facility] [id number] Repository Number: [id number] Date: 10/01/2017 DIPESH T Primary Insurance:AETNA DIPESH T [facility]: MEDICARE HMOPolicy MCDOWELLDOB: [facility] System Number: [id number] Repository [facility]STEV[facility] CENTERBJDFBHEffective Date: [facility], [place] [address]Eyj: () 10/01/2017 Secondary DIPESH T [facility] Insurance:[facility]OSPITALELLDOB: Health System MEDICAID ONLYPolunitypoint health-[facility] [id number] Repository Number: [id number] Date: 09/29/2017 DIPESH T Primary Insurance:AETNA DIPESH T [facility] [place] [facility]: MEDICARE HMOPolicy MCDOWELLDOB: [facility] System Number: [id number] Repository [facility]OSPITALBJDFBHEffective Date: [place], [place] [address]Dbo: () 09/29/2017 Secondary DIPESH T [facility] Insurance:[facility]OS[facility]ITALELLDOB: Health System MEDICAID ONLYPolunitypoint health-[facility] [id number] Repository Number: [id number] Date: 2017 DIPESH T Primary Insurance:AETNA DIPESH T [facility] [place] [facility]LLDOB: MEDICARE HMOPolicy MCDOWELLDOB: [facility] System Number: [id number] Repository [facility]OSPITALBJDFBHEffective Date: [place], [place] [address]Nuu: () 2017 Secondary DIPESH T [facility] Insurance:[facility]OSPITALELLDOB: Health System MEDICAID ONLYPolunitypoint health-[facility] [id number] Repository Number: [id number] Date: 09/21/2017 DIPESH T Primary Insurance:AETNA DIPESH T [facility]: MEDICARE HMOPolicy MCDOWELLDOB: Health System Number: [id number] Repository [facility]PITALBJDFBHEffective Date: [place], [place] [address]Lgp: () 09/21/2017 Secondary DIPESH T [facility] Insurance:[facility]: [facility] System MEDICAID [facility] [id number] Repository Number: [id number] Date: 09/15/2017 DIPESH T Primary Insurance:AETTREY COWART Mohse [place] [facility] CareB: MEDICARE HMOPolicy MCDOWELLDOB: [facility] System Number: [id number] Repository [facility]ENTERBJDFBHEffective Date: [facility] [place] [place] [address]Pmh: () 09/15/2017 Secondary DIPESH T [facility] Insurance:[facility]WB: [facility] MEDICAID [facility] [id number] Repository Number: [id number] Date: 06/07/2017 DIPESH T Primary Insurance:AETNA DIPESH Moshe [facility] CareB: MEDICARE HMOPolicy MCDOWELLDOB: [facility] System Number: [id number] Repository [facility] CENTERBJDFBHEffective Date: [facility] [place] [address]Mgg: ()
== END 2018-04-18 17:51 | disposition short-term general hospital (02) ==
LOC: ED 12:34
PROVIDERS: Emergency Provider Emergency Medicine; Family Provider Internal Medicine Geriatric Medicine; PCP Internal Medicine Geriatric Medicine
DX: J18.9 Pneumonia, unspecified organism (principal); Y95 Nosocomial condition; R41.0 Disorientation, unspecified
CPT/HCPCS: 71045; 80048; 83605; 83880; 85025; 87040; 87077; 87186; 87804; 93005; 94640; 96365; 96367; 96368; 99285; J7030; J7050; A4216; J2405

== ENCOUNTER 2018-07-15 09:07 | Inpatient (IN) | payer MEDICARE, MEDICAID, SELFPAY ==
[2018-07-15] VITALS (22 sets, daily range): BP systolic 108–164; BP diastolic 70–104; PULSE 107–138; RESP 18–32; TEMP 35.9–37.1; O2SAT 86–97; BMI 28.0; BMI 26.9
--- NOTE | 2018-07-15 09:31 | EKG12_ITS ---
Test Reason : Blood Pressure : / mmHG Vent. Rate : 137 BPM Atrial Rate : 122 BPM P-R Int : 000 ms QRS Dur : 104 ms QT Int : 322 ms P-R-T Axes : 000 255 058 degrees QTc Int : 486 ms Supraventricular tachycardia with occasional Premature ventricular complexes Inferior infarct , age undetermined Anterolateral infarct , age undetermined Abnormal ECG Confirmed by DEL WADSWORTH, DOMITILA ([id number]), editorial project manager MARYLIN ENGLE ([id number]) on 07/19/2018 1:17:17 PM Referred By: Confirmed By:DOMITILA MATHIS MD
[2018-07-15] MEDS: 0.9% Normal Saline 1,000 ML 1000 ML IV (10:14)
[2018-07-15] MEDS: 0.9% Normal Saline 1,000 ML 125 ML IV (10:14)
[2018-07-15 10:18] LABS: Bacteria 0 SEEN /hpf (None Seen); Mucous, Urine 0 SEEN /hpf (<or=2+); Squamous Epithelial Cells - UA 0 SEEN /hpf (0-5)
[2018-07-15 10:22] LABS: Absolute Lymphocyte Count 0.89 X10^3/ul (0.83-4.51); Absolute Neutrophil Count 19.2 X10^3/uL (2.0-7.7); Basophil# 0.05 X10^3/uL; Basophil% 0.2 % (0-1); Hematocrit 49.5 % (40-54); Hemoglobin 15.1 g/dl (13.0-16.5); Lymphocyte # 0.89 X10^3/ul (4.0); Lymphocyte % 4.2 % (19-41); Mean Corp Hgb Conc 30.5 g/gl (32-36); Mean Corpuscular Hgb 27.2 pg (27.0-32.0); Mean Corpuscular Volume 89.2 fL (80-94); Mean Platelet Vol. 10.3 fl (6.2-12.0); Monocyte# 0.74 X10^3/uL; Monocyte% 3.5 % (0-10); Neutrophil # 19.17 X10^3/uL (2.7-7.7); Neutrophil % 91.5 % (47-70); Platelet Count 346 K/mm3 (150-450); RBC Distribution Width SD 48.4 fl (35.1-43.9); Red Blood Count 5.55 M/mm3 (4.6-6.2)
[2018-07-15 10:23] LABS: Color, Urine Yellow (Yellow); Glucose, Dipstick Normal (Normal); Ketone-Dipstick 50 mg/dl (Negative); Leukocyte Esterase-Dipstick 100 /ul (Negative); Nitrite-Dipstick Negative (Negative); Occult Blood-Urine 50 /ul (Negative); POSITIVE COUNT NO; POSITIVE DIFFERENTIAL NO; POSITIVE MORPHOLOGY NO; Protein-Dipstick 500 mg/dl (Negative); Urine Bilirubin Dipstick Negative (Negative); Urine Clarity Clear (Clear); Urine Urobilinogen 1 mg/dl (Normal)
[2018-07-15 10:34] LABS: Partial Thromboplast Time 30.5 Seconds (24.1-36.2)
[2018-07-15 10:37] LABS: Red Blood Cells-Urine 0-5 SEEN /hpf (0-5); White Blood Cells 10-25 SEEN /hpf (0-5)
[2018-07-15 10:42] LABS: ALB/GLOB Ratio 0.5 RATIO (0.9-2.4); AST(SGOT) 23 U/L (15-37); Alanine Aminotransfer ALT/SGPT 25 U/L (16-61); Albumin, Serum 2.7 g/dL (3.2-5.0); Alkaline Phosphatase 117 U/L (45-117); Anion Gap 8 (5-15); BUN 31 mg/dL (7-18); BUN/Creat Ratio 46.5 RATIO (10-20); Chloride 98 mmol/L (98-107); Creatinine, Serum 0.67 mg/dL (0.70-1.30); EST Glomerular Filtration Rate 127 mL/min (>60); Est Glom Filt Rate - Afr Amer 154 mL/min (>60); Globulin 5.7 g/dL (2.2-4.2); Glucose 170 mg/dL (74-106); Lipase 103 U/L (73-393); Potassium 4.2 mmol/L (3.5-5.1); Protein, Total 8.4 g/dL (6.4-8.2); Sodium Level 135 mmol/L (136-145)
--- NOTE | 2018-07-15 10:48 | CT_ITS ---
STUDY: CT BRAIN WITHOUT CONTRAST REASON FOR EXAM: Male, 67 years old. Recent surgery. Brown emesis. RADIATION DOSAGE (If Supplied By Facility): CTDIvol = ( 44.99 ) mGy, DLP = ( 1614.71 ) mGycm TECHNIQUE: Transaxial CT imaging of the brain was performed without administration of intravenous contrast material. Individualized dose optimization techniques were used for this CT. COMPARISON: None. FINDINGS: There is evidence of a 6.7 cm x 4.7 cm fluid collection in the soft tissues overlying the left occipital bone. Prior craniotomy in the left occipital bone. There is disproportionate enlargement of the lateral and third ventricles, as compared to the extra-axial spaces. The findings suggest normal pressure hydrocephalus (NPH). Normal white matter tracts of the cerebral hemispheres. Normal basal ganglia and thalami. Normal brainstem. There is mild cerebellar atrophy. Postoperative encephalomalacia in the left lobe of the cerebellum. There is no intracranial hemorrhage. There are no findings of an acute ischemic infarction. Normal visualized paranasal sinuses. CT/Brain/Head without Contrast IMPRESSION: Findings suggestive of normal pressure hydrocephalus. The patient is status post left occipital craniotomy with fluid collection in the overlying soft tissue most likely representing a postoperative seroma. Electronically Signed: Jose Trejo, at 12:39 EST , Service support ,
--- NOTE | 2018-07-15 10:48 | CT_ITS ---
STUDY: CT ABDOMEN AND PELVIS WITH CONTRAST REASON FOR EXAM: Male, 67 years old. Dark brown emesis. Recent surgery. RADIATION DOSAGE (If Supplied By Facility): CTDIvol = ( 20.42 ) mGy, DLP = ( 2103.49 ) mGycm TECHNIQUE: Transaxial images were obtained from the dome of the diaphragm to the symphysis pubis without oral contrast. Isovue 300 100 IV was administered. Sagittal and coronal images were reconstructed. Individualized dose optimization techniques were used for this CT. COMPARISON: None. FINDINGS: Minimal increased linear markings at the lung bases suggestive of linear scarring and/or atelectasis. Coronary artery calcification. Normal liver. Normal gallbladder and extrahepatic biliary system. Normal spleen. Normal pancreas. Normal bilateral adrenal glands. Multiple cysts are seen in the right kidney. The largest measures 3 cm x 2.9 cm. Multiple cysts are also seen in the left kidney. The largest measuring 2.3 cm x 2.4 cm. There is a small hiatal hernia. A gastrostomy tube is seen within the body of the stomach. Normal small intestine. There are scattered colonic diverticula consistent with diverticulosis. The patient is status post appendectomy. There is diffuse atherosclerotic calcification of the abdominal aorta, without a demonstrated aneurysm. Normal inferior vena cava. Normal retroperitoneum. Partially filled urinary bladder with diffuse bladder wall thickening. Normal abdominal wall. There are degenerative changes of the visualized lumbar spine. CT/Abdomen/Pelvis W IV Cont ONLY IMPRESSION: Urinary bladder wall thickening. Scattered sigmoid diverticula. Bilateral renal cysts. Electronically Signed: Jose Trejo, at 12:36 EST , Service support ,
--- NOTE | 2018-07-15 10:49 | CT_ITS ---
STUDY: CTA CHEST REASON FOR EXAM: Male, 67 years old. Dark brown emesis. Prior lung surgery. RADIATION DOSAGE (If Supplied By Facility): CTDIvol = ( 20.42 ) mGy, DLP = ( 2103.49 ) mGycm TECHNIQUE: The examination was performed with the intravenous administration of Isovue 370 100 IV. Post-processing of the angiographic images was performed, with multiplanar reformation and 3D reconstruction. Individualized dose optimization techniques were used for this CT. COMPARISON: None. FINDINGS: Normal enhancement of the main pulmonary artery and right and left pulmonary arteries. Normal enhancement of the bilateral peripheral pulmonary arteries. There is no demonstrated pulmonary embolism. Normal thoracic aorta and visualized great vessels. There is no demonstrated aortic dissection. There are calcifications of the coronary arteries. Normal mediastinum. Normal hilar regions. Normal visualized trachea and bronchi. Shift of the heart and mediastinal structures towards the left side of the midline most likely secondary to prior lobectomy. Increased linear markings at the lung bases suggestive of scarring. Normal pleura. Normal chest wall structures. There are degenerative changes of thoracic spine. Circumferential thickening of the esophagus throughout its length. CT/CTA Chest W/WO Contrast IMPRESSION: There is no evidence of pulmonary embolism. Circumferential wall thickening of the esophagus throughout its length. Findings suggestive of scarring at the lung bases. Electronically Signed: Jose Trejo, at 12:42 EST , Service support ,
[2018-07-15 11:07] LABS: Lactic Acid 3.3 mmol/L (0.4-2.0)
[2018-07-15] MEDS: Ondansetron 4 MG/2 ML Vial IV (12:09)
[2018-07-15] MEDS: proMETHazine 25 MG/ML Syringe 12.5 MG IV (12:35)
[2018-07-15] MEDS: HYDROmorphone 0.5 MG/0.5 ML SYRINGE IV (12:35)
--- NOTE | 2018-07-15 12:45 | EKG12_ITS ---
Test Reason : REPEAT Blood Pressure : / mmHG Vent. Rate : 121 BPM Atrial Rate : 121 BPM P-R Int : 176 ms QRS Dur : 106 ms QT Int : 348 ms P-R-T Axes : 113 265 053 degrees QTc Int : 494 ms Junctional tachycardia with occasional Premature ventricular complexes Right superior axis deviation Inferior infarct , age undetermined Anterior infarct , age undetermined Abnormal ECG Confirmed by DEL WADSWORTH, DOMITILA ([id number]), fan mail editor MARYLIN ENGLE ([id number]) on 07/18/2018 1:48:40 PM Referred By: SADAF Confirmed By:DOMITILA MATHIS MD
[2018-07-15] MEDS: 0.9% Normal Saline 1,000 ML 999 ML IV (12:58)
--- NOTE | 2018-07-15 13:13 | ED.DCSUM_ITS ---
- ER Visit Summary Date of Service: 07/15/18 Chief Complaint: Vomiting History of Present Illness: The patient is a 67 M who is from [facility]. His baseline is nonverbal confined to bed. 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 Since that time he has had several admissions to for sepsis. Yesterday the power of title attorney, his nephew, states that they started palliative care but not hospice care. He states he gave him oxycodone. Last night he had some vomiting was described to the nephew as clear and then turned to coffee grounds. Stools have not been black. He does have a history of aspiration. He has a PEG tube. He has a history of DVT but is not currently on anticoagulation Physical Examination: 96.7 heart rate 124 blood pressure 151/101 respirations are 18 pulse ox 93% on room air Gen: Well-nourished well-developed Head: Normocephalic there is a fluid collection in the left posterior auricular region is consistent with a seroma Eyes: Perrl EOMI ENT: TMs clear no rhinorrhea moist mucous membranes Neck: Supple no lymphadenopathy no JVD nontender CVS: Regular rate tachycardic rhythm no murmurs normal S1-S2 Respiratory: No distress clear to auscultation bilaterally chest nontender Abdomen: Soft nontender nondistended normal bowel sounds no masses minor irritation around the PEG tube Back: Nontender there is a small decubitus ulcer in the sacral region Extremity: Nontender no edema Skin: Normal color no rash Neuro: alert o patient is nonverbal he is contractures of the left arm. Psych: Normal affect normal mood Test Results: White count is 21. Hemoglobin 15.1. Lactic acid 3.3. Troponin negative. BUN of 31 with a creatinine 0.67. Urinalysis 10-25 white blood cells but no bacteria negative nitrates. Head CT showed a postoperative seroma and evidence of normal pressure hydrocephalus. CTA of the chest demonstrates no pulmonary embolism or infiltrate. CT abdomen pelvis does not demonstrate any acute process. Emergency Department Course and Treatment: Patient received IV fluids Phenergan Dilaudid he is resting comfortably. He did have an episode of a small amount of vomiting it was brown not coffee grounds and there is no lowell blood. He has evidence of sepsis without a source and we administered tobramycin and vancomycin and Levaquin based on the hospital approved order set. While the patient was sleeping his pulse ox did drop into the 8889% range he was placed on supplemental oxygen. Impression: 1. Junctional tachycardia 2. Leukocytosis 2. Elevated lactic acid 4. Postoperative seroma of the scalp This note was generated with [employer] dictation software. It may contain incorrect words, spelling, and punctuation that were not noted in review of the chart prior to signing ED Disposition - Plan for ED Patient: Referrals: Kamilah Lopez [Primary Care Provider] -
--- NOTE | 2018-07-15 13:49 | PCM.HP.STD ---
Problem List (1) SIRS (systemic inflammatory response syndrome) Status: Acute (2) Elevated lactic acid level Status: Acute (3) Esophageal thickening Status: Acute (4) Aspiration into airway Status: Suspected Qualifiers: Encounter type: initial encounter Qualified Code(s): T17.908A - Unspecified foreign body in respiratory tract, part unspecified causing other injury, initial encounter (5) Meningioma Status: Chronic (6) CVA (cerebral vascular accident) Status: Chronic Qualifiers: CVA mechanism: unspecified Qualified Code(s): I63.9 - Cerebral infarction, unspecified (7) Diabetes mellitus, type II Status: Chronic Qualifiers: Diabetes mellitus nursing home insulin use: with nursing home use Diabetes mellitus complication status: with unspecified complications Qualified Code(s): E11.8 - Type 2 diabetes mellitus with unspecified complications; Z79.4 - skin former (current) use of insulin (8) HTN (hypertension) Status: Chronic Qualifiers: Hypertension type: essential hypertension Qualified Code(s): I10 - Essential (primary) hypertension (9) HLD (hyperlipidemia) Status: Chronic Qualifiers: Hyperlipidemia type: pure hypercholesterolemia Qualified Code(s): E78.00 - Pure hypercholesterolemia, unspecified; E78.0 - Pure hypercholesterolemia (10) Anxiety and depression Status: Chronic (11) COPD (chronic obstructive pulmonary disease) Status: Chronic Qualifiers: COPD type: unspecified COPD Qualified Code(s): J44.9 - Chronic obstructive pulmonary disease, unspecified (12) AVM (arteriovenous malformation) Status: Chronic (13) CYNTHIA (obstructive sleep apnea) Status: Chronic (14) History of DVT (deep vein thrombosis) Status: Chronic (15) Decubitus ulcer of coccyx Status: Chronic Qualifiers: Pressure injury stage: stage 2 Qualified Code(s): L89.152 - Pressure ulcer of sacral region, stage 2 History of Present Illness Date of Admission: 07/15/18 Chief Complaint: Emesis at SNF The patient is a 67 y/o M w/ PMHx: History of Meningioma s/p initial resection 2013, 2nd resection 2018 w/ 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, non-verbal, oropharyngeal dysphagia w/ PEG tube/NPO and bedbound status, History of Lung Resection for unclear etiology, Diabetes mellitus type II, HTN, HLD, Depression and Anxiety, Chronic COPD, History of AVM, CYNTHIA, History of LUE DVT after access placement, Known Decubitous Ulcer Coccyx and R upper Buttock following with Wound Care, Dementia unclear type, Former tobacco use, History of prior MRSA PNA in addition to History of Enterococcal UTI, Prior Septic admissions who presents to the [facility] ED from SNF on on 07/15/18 with history of transition the day prior to palliative therapy regimen with initiation of narcotic therapy with onset on day of presentation emesis x 2 despite no oral intake with PEG tube in place initially described per skilled facility is clear but following this possibly coffee-ground in appearance however in the ED emesis recurrence and only brown appearing in nature. Patient at facility had no evidence of diarrhea, fever, cough, congestion, rhinorrhea or other symptoms aside emesis as noted. Work-up in the ED included T 96.7, heart rate 124, BP 151/101, respiratory rate 24, 93% on room air-->94% on 2L NC, CBC with W BC 21, heme globin 15.1, platelets 346 with left shift, unremarkable coags, CMP with sodium 135, BUN/Cr 31/0.67, glucose 170, LA 3.3, trop <0.015, lipase 103, UA w/ evidence of dehydration with specific gravity 1.020, protein 500, ketones 50, occult blood 50, urobilinogen 1, leukocyte esterase 100, WBC 10-25, CT abdomen and pelvis with urinary bladder wall thickening, scattered sigmoid diverticula, bilateral renal cysts, CT brain with findings of normal pressure hydrocephalus status post left occipital craniotomy with a fluid collection in these overlying soft tissue consistent with postoperative seroma, CT abdomen and pelvis with urinary bladder wall thickening, scattered sigmoid diverticulum bilateral renal cysts, chest CTA with no evidence of PE with circumferential wall thickening of the esophagus throughout its length with scarring at the lung bases bilaterally, EKG in the ED with concern for junctional rhythm therefore cardiology consulted per ED and agreed with recommendation for continued treatment for underlying etiology for possible severe sepsis. Patient nephew [facility] power of estate attorney was present in the ED upon patient presentation however at time of evaluation he had left per nursing report to run errands and was not available. Past Medical History Past Medical History (Chronic Problems): Chronic Problems Meningioma (Chronic) CVA (cerebral vascular accident) (Chronic) Diabetes mellitus, type II (Chronic) HTN (hypertension) (Chronic) HLD (hyperlipidemia) (Chronic) Anxiety and depression (Chronic) COPD (chronic obstructive pulmonary disease) (Chronic) AVM (arteriovenous malformation) (Chronic) CYNTHIA (obstructive sleep apnea) (Chronic) History of DVT (deep vein thrombosis) (Chronic) Decubitus ulcer of coccyx (Chronic) Allergies codeine Allergy (Verified 07/15/18 09:15) Unknown Insulins Allergy (Verified 07/15/18 09:15) Unknown Penicillins [PCN] Allergy (Verified 07/15/18 09:15) Unknown Home Medications: Ambulatory Orders Medication Instructions Recorded Acetaminophen [Tylenol Extra 500 mg GT Q8H 04/18/18 Strength] Atorvastatin Calcium [Lipitor] 40 mg GT QHS 04/18/18 Budesonide 0.5 mg IH Q12H 04/18/18 Formoterol Fumarate [Perforomist] 20 mcg INHALATION BID 04/18/18 Insulin Aspart [Novolog Flexpen See Protocol SC Q6H 04/18/18 ([facility])] Insulin Glargine,Hum.rec.anlog 30 unit SQ DAILY 04/18/18 [Lantus] Polyethylene Glycol 3350 [Clearlax] 17 gm GT DAILY 04/18/18 Silodosin [Rapaflo] 8 mg GT DAILY 04/18/18 Docusate Sodium [Docu Liquid] 50 mg GT BID 07/15/18 Glucagon,Human Recombinant 1 mg IJ X1 PRN 07/15/18 [Glucagen] Oxycodone HCl 10 mg GT Q8H 07/15/18 Pantoprazole Granules [Protonix 40 mg GT BID 07/15/18 Granules] Simethicone 40MG/0.6ML [Mylicon] 80 mg GT ACHS 07/15/18 Venlafaxine HCl [Effexor] 75 mg GT DAILY 07/15/18 Surgical History: - - Prior lung resection for unclear etiology, PEG tube placement, craniotomy x2. Psychiatric History: Anxiety, Depression Lives: Prison Smoking Status: Former smoker - Patient with a 1 pack/day x 51-year tobacco use history. Tobacco Use: Non-smoker Alcohol: None Drugs: None - *Family History Maternal History Items: Unknown - Patient is unable to give family history is nonverbal. Paternal History Items: Unknown - Patient is unable to give family history is nonverbal. Review of Systems Unable to obtain accurate/complete ROS d/t: Patient unable to give ROS secondary to nonverbal status. Comment: Skilled facility did emesis no other acute complaints. VTE Information - Inpt Only VTE Present on Admission: No VTE Mechan Device Prophylaxis: SCD's VTE Pharm Prophylaxis ordered?: No Reason prophylaxis not ordered:: Medical Contraindication - Patient currently on aspirin therapy and stroke history therefore given recent craniotomies will defer chemoprophylaxis until clarified allowance. Patient Problems: Active and Suspected Problems SIRS (systemic inflammatory response syndrome) (Acute) Elevated lactic acid level (Acute) Esophageal thickening (Acute) Aspiration into airway (Suspected) Subjective: Seated upright in the ED bed, fatigued, not alert, not very responsive, snoring. Objective: Physical Examination: General: awakens minimally to stimuli, not alert, not oriented, similar presentation to baseline per staff report from facility, non-verbal, bedbound, R>L hemiplegia, currently seated upright in the ED bed, NAD. Skin: normal color, turgor, no icterus, cyanosis except stage II coccyx and right upper buttock decubitus ulcer as well as mild irritation around patient PEG tube insertion site. HEENT: AT/NC, EOM unable to be assessed well, PERRLA, dry MM, no carotid bruits or JVD noted. Lungs: Bilaterally decreased breath sounds, mildly coarse upper airway sounds with poor ability to clear secretions, snoring, no rales, ronchi or wheezing. Heart: Tachycardic with regular rhythm; no gallop, rub audible. Abdomen: soft, NTTP with no evidence of grimace or guarding, ND, mildly hypoactive BS, no HSM. Extremities: no cyanosis, clubbing, status post CVA with mild contractures noted. Neurological: awakens minimally to stimuli, not alert, not oriented, similar presentation to baseline per staff report from facility, non-verbal, bedbound, R>L hemiplegia, currently seated upright in the ED bed, NAD; per staff report from his facility cognitive function Nonverbal, baseline non-alert and not oriented; pupils equally reactive to light and accomodation; cranial nerves difficult to assess given non-interactive minimally alert status, strength difficult to assess but chronic right greater than left hemiplegia baseline. Psychiatric: affect appears lethargic, no acute evidence of depressive or anxiety feelings. - Physical Exam Vital Signs Temp Pulse Resp BP Pulse Ox 96.7 F L 116 H 23 H 108/73 94 07/15/18 09:09 07/15/18 13:02 07/15/18 13:02 07/15/18 13:02 07/15/18 13:02 Oxygen Flow Rate (L/min) 2 Oxygen Delivery Method Nasal Cannula Weight: 195 lb 5.273 oz Body Mass Index (BMI) 28.0 Laboratory Tests Past 24 Hrs 07/15/18 07/15/18 07/15/18 10:10 10:10 10:10 WBC 21.0 H RBC 5.55 Hgb 15.1 Hct 49.5 MCV 89.2 MCH 27.2 MCHC 30.5 L RDW 15.0 H RDW Differential 48.4 H Plt Count 346 MPV 10.3 Immature Gran % (Auto) 0.600 Neut % (Auto) 91.5 H Lymph % (Auto) 4.2 L [place] % (Auto) 3.5 Eos % (Auto) 0.0 Baso % (Auto) 0.2 Absolute Neuts (auto) 19.2 H Absolute Lymphs (auto) 0.89 Total Counted Not Reportable PT 13.0 INR 1.0 APTT 30.5 Sodium 135 L Potassium 4.2 Chloride 98 Carbon Dioxide 29.0 Anion Gap 8 BUN 31 H Creatinine 0.67 L Estim Creat Clear Calc 113.50 Est GFR (MDRD) Af Amer 154 Est GFR (MDRD) Non-Af 127 BUN/Creatinine Ratio 46.5 H Glucose 170 H Lactic Acid Calcium 10.0 Total Bilirubin 0.50 AST 23 ALT 25 Alkaline Phosphatase 117 Troponin I < 0.015 Total Protein 8.4 H Albumin 2.7 L Globulin 5.7 H Albumin/Globulin Ratio 0.5 L Lipase 103 Urine Color Urine Clarity Urine pH Ur Specific [place] Urine Protein Urine Glucose (UA) Urine Ketones Urine Occult Blood Urine Nitrite Urine Bilirubin Urine Urobilinogen Ur Leukocyte Esterase Urine RBC Urine WBC Ur Squamous Epith Cells Urine Bacteria Urine Mucus 07/15/18 07/15/18 10:10 10:10 WBC RBC Hgb Hct MCV MCH MCHC RDW RDW Differential Plt Count MPV Immature Gran % (Auto) Neut % (Auto) Lymph % (Auto) [place] % (Auto) Eos % (Auto) Baso % (Auto) Absolute Neuts (auto) Absolute Lymphs (auto) Total Counted PT INR APTT Sodium Potassium Chloride Carbon Dioxide Anion Gap BUN Creatinine Estim Creat Clear Calc Est GFR (MDRD) Af Amer Est GFR (MDRD) Non-Af BUN/Creatinine Ratio Glucose Lactic Acid 3.3 H Calcium Total Bilirubin AST ALT Alkaline Phosphatase Troponin I Total Protein Albumin Globulin Albumin/Globulin Ratio Lipase Urine Color Yellow Urine Clarity Clear Urine pH 7.0 Ur Specific [place] 1.020 Urine Protein 500 H Urine Glucose (UA) Normal Urine Ketones 50 H Urine Occult Blood 50 H Urine Nitrite Negative Urine Bilirubin Negative Urine Urobilinogen 1 H Ur Leukocyte Esterase 100 H Urine RBC 0-5 SEEN Urine WBC 10-25 SEEN Ur Squamous Epith Cells 0 SEEN Urine Bacteria 0 SEEN Urine Mucus 0 SEEN Assessment/Plan All Active Problems SIRS (systemic inflammatory response syndrome) (Acute) Elevated lactic acid level (Acute) Esophageal thickening (Acute) The patient is a 67 y/o M w/ PMHx: History of Meningioma s/p initial resection 2013, 2nd resection 2018 w/ 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, non-verbal, oropharyngeal dysphagia w/ PEG tube/NPO and bedbound status, History of Lung Resection for unclear etiology, Diabetes mellitus type II, HTN, HLD, Depression and Anxiety, Chronic COPD, History of AVM, CYNTHIA, History of LUE DVT after access placement, Known Decubitous Ulcer Coccyx and R upper Buttock following with Wound Care, Dementia unclear type, Former tobacco use, History of prior MRSA PNA in addition to History of Enterococcal UTI, Prior Septic admissions who presents to the [facility] ED from SNF on on 07/15/18 with history of transition the day prior to palliative therapy regimen with initiation of narcotic therapy with onset on day of presentation emesis x 2 despite no oral intake with PEG tube in place initially described per skilled facility is clear but following this possibly coffee-ground in appearance however in the ED emesis recurrence and only brown appearing in nature. (1) SIRS w/ Lactic Acidosis, Unclear Specific Etiology: Given recent emesis, ? aspiration; however, no marked findings on CT chest as noted, Work-up in the ED included T 96.7, heart rate 124, BP 151/101, respiratory rate 24, 93% on room air-->94% on 2L NC, CBC with WBC 21, hemoglobin 15.1, platelets 346 with left shift, unremarkable coags, CMP with sodium 135, BUN/Cr 31/0.67, glucose 170, LA 3.3, trop <0.015, lipase 103, UA w/ evidence of dehydration with specific gravity 1.020, protein 500, ketones 50, occult blood 50, urobilinogen 1, leukocyte esterase 100, WBC 10-25, CT brain with findings of normal pressure hydrocephalus status post left occipital craniotomy with a fluid collection in these overlying soft tissue consistent with postoperative seroma, CT abdomen and pelvis with urinary bladder wall thickening, scattered sigmoid diverticulum bilateral renal cysts, chest CTA with no evidence of PE with circumferential wall thickening of the esophagus throughout its length with scarring at the lung bases bilaterally. Will admit to PCU given cardiac findings concurrently, continue aggressive hydration, in the ED patient administered aggressive 2 L bolus, Phenergan, Zofran, Levaquin tobramycin as well as vancomycin given unclear etiology for what appears to be severe sepsis presentation but unclear source thus SIRS as noted, pending Bld Cx, pending UCx, will additionally obtain Sputum Cx if able, obtain urine antigens, respiratory viral panel, will hold on additional abx pending re-evaluation and repeat AM labs unless worsened status then would restart BSA, but currently dosed, aspiration precautions, PT, OT, Speech for concern for possible aspiration, plan repeat PA and Lateral in AM to assure not developing, hold TFs given recent bouts of emesis until assure resolved, continue PRN antiemetics. Given onset emesis following narcotic scheduled regimen will hold also. (2) Junctional Tachycardia, New Onset: EKG in the ED with concern for junctional rhythm therefore cardiology consulted per ED and agreed with recommendation for continued treatment for underlying etiology for possible severe sepsis. Will maintain on cardiac telemetry, cycle cardiac enzymes, obtain magnesium and supplement if appropriate, obtain TSH, obtain repeat EKG in a.m., obtain echocardiogram, continue cardiology consultation initiated per ED. Continue treatment per cardiology recommendation of presentation #1. (3) ? Esophagitis: Unclear if prior etiology, no comparison imaging, continue PPI, may consider surgery evaluation for endoscopy given emesis if recurrent w/ PEG in place and NPO status baseline, if no specific etiology for SIRS (unclear source) then may need to consider to assess for candidal or other. (4) History of Meningioma: Patient s/p initial resection 2013, 2nd resection 2018 w/ unfortunate post-operative CVA as noted, CT brain with findings of normal pressure hydrocephalus status post left occipital craniotomy with a fluid collection in these overlying soft tissue consistent with postoperative seroma, encourage continued follow-up with his Neurosurgeon. Currently list not noting ASA, will need clarification for prophylaxis also. (5) CVA: Patient following 2nd meningioma resection w/ CVA w/ R>L hemiplegia, non-verbal, oropharyngeal dysphagia w/ PEG tube/NPO and bedbound status, concern possible aspiration as noted. PT, OT, Speech, CM consultations, continue asa, (6) Hypertension: Not on regimen, BP normal range currently, continue to monitor, PRN hydralazine. (7) Hyperlipidemia: Continue home statin regimen. (8) Chronic COPD: Continue home budesonide, Perforomist regimen with as needed albuterol., HOB, IS parameters. (9) Depression and Anxiety: Continue home venlafaxine regimen. (10) Known Decubitous Ulcer Coccyx and R upper Buttock: Patient following with Wound Care, frequent positioning, wound RN consultation, barrier creams. (11) Diabetes mellitus type II: Will continue home insulin regimen, NPO status, accu checks w/ ISS, nutrition consulted for recommendations, PEG w/ TFs. (12) GERD: PPI as noted. (13) DVT Prophylaxis: SCDs, defer chemoprophylaxis pending clarification of allowance as also no ASA listed on SNF regimen. (14) CODE status: DNR-CCA, no intubation per SNF paperwork and HCPOA, Nephew per ED. Code Visit Inpatient E&M: 26695 Init Hosp L3
--- NOTE | 2018-07-15 13:53 | CM.ED ---
Social Work Note Pt is from [facility] in [facility]. Pt is nonverbal and no family is present with him at this time. Placed call to Kyle Plascencia, the pt's nephew and HCPOA. HCPOA paperwork on chart. Left requesting a return phone call to confirm pt's discharge plan. SW on assigned unit to continue to follow and assist with discharge planning. VERONICA Chau, LEXI
[2018-07-15] MEDS: levoFLOXacin IV 750 MG/150 ML BAG 100 MG IV (14:02)
--- NOTE | 2018-07-15 14:09 | NURSING ---
PCU SEPSIS JUNCTIONAL TACHYCARDIA WHITE
[2018-07-15 14:16] LABS: Reflex Lactate? Y
--- NOTE | 2018-07-15 14:24 | CM.ED ---
Social Work Note Call back from Dr. Kyle Plascencia, pt's nephew and HCPOA. Per HCPOA pt is at [facility] in [facility]. Reports that he has been there since April of 2018 and plan would be for him to return there are discharge. At this time no further concerns expressed by HCPOA. SW to continue to follow and assist with discharge planning. [facility] Althea Garcia, PRESS OPERATOR AUTOMATIC, MEDICAL BILLING SERVICE
[2018-07-15 15:59] LABS: Lactic Acid 1.3 mmol/L (0.4-2.0)
--- NOTE | 2018-07-15 15:59 | ECHOCS_ITS ---
Reason For Study: Arrhythmia Procedure This was a 2D Doppler, Color Flow transthoracic echocardiogram. The study was technically difficult. Contrast injection was performed. Exam performed portable in patient room. Left Ventricle Normal LV size. Moderate eccentric left ventricular hypertrophy. Left ventricular systolic function is normal. The estimated ejection fraction is 60 %. No regional wall motion abnormalities noted. Right Ventricle Normal RV size. Normal systolic function. Atria Normal left atrium. Mitral Valve Normal mitral valve. Tricuspid Valve Normal tricuspid valve. Aortic Valve Trisinus/trileaflet aortic valve. Pulmonic Valve The pulmonic valve is not well visualized. Great Vessels Normal aortic root. The pulmonary artery is normal size. Normal inferior vena cava. Pericardium/Pleural No pericardial effusion. Medication Definity0.2ml given slow IV push to enhance endocardial definition. MMode/2D Measurements & Calculations LVIDd: 3.4 cm IVSd: 2.0 cm Ao root diam: 3.6 cm LVIDs: 2.7 cm LVPWd: 1.1 cm RVDd: 2.8 cm FS: 21.5 % LAV(MOD-sp4): 13.2 ml LA A4 area: 9.0 cm2 LA dimension(2D): 2.6 cm RA A4 area: 9.1 cm2 Doppler Measurements & Calculations MV E max sunita: 79.9 cm/sec Ao V2 max: 109.1 cm/sec LV V1 max: 112.5 cm/sec Ao max P.8 mmHg LV V1 max P.1 mmHg Ao V2 mean: 80.2 cm/sec Ao mean P.8 mmHg Ao V2 VTI: 12.4 cm PA V2 max: 77.0 cm/sec Interpretation Summary Normal LV size. Moderate eccentric left ventricular hypertrophy. Left ventricular systolic function is normal. The estimated ejection fraction is 60 %. Contrast injection was performed. Ordering Physician: Marilyn Haynes Referring Physician: Kamilah Lopez Performed By: Shima Kaiser, ISAMAR, RVT
[2018-07-15] MEDS: 0.9% Normal Saline 1,000 ML 150 ML IV (16:40)
[2018-07-15 17:10] LABS: Magnesium 1.9 mg/dL (1.6-2.6); Thyroid Stim Hormone (TSH) 0.59 uIU/mL (0.358-3.74)
[2018-07-15 17:26] LABS: Bedside Glucose 139 mg/dL (70-110)
[2018-07-15] MEDS: Albuterol 2.5 MG/3 ML VIAL.NEB. INHALATION (20:30)
[2018-07-15] MEDS: Budesonide Respules 0.5 MG/2 ML AMPUL.NEB. INHALATION (20:40)
--- NOTE | 2018-07-15 20:56 | EKG12_ITS ---
Test Reason : N/V Blood Pressure : / mmHG Vent. Rate : 123 BPM Atrial Rate : 113 BPM P-R Int : 000 ms QRS Dur : 104 ms QT Int : 348 ms P-R-T Axes : 000 -87 042 degrees QTc Int : 498 ms Accelerated Junctional rhythm with retrograde conduction Left axis deviation Inferior infarct , age undetermined Possible Anterior infarct , age undetermined Abnormal ECG Confirmed by DEL WADSWORTH, DOMITILA ([id number]), deputy editor in chief MARYLIN ENGLE ([id number]) on 07/18/2018 1:38:16 PM Referred By: SADAF Confirmed By:DOMITILA MATHIS MD
[2018-07-15 21:31] LABS: Allen Test POS; Base Excess -3 mmol/L (-2 to +2); Bicarbonate 23.8 mmol/L (22-26); Blood Gas Specimen Type ART; O2 Delivery Device NRB Mask; PO2 50 mmHG (75-100); SITE R Radial; SO2 80 % (95-99); Time Given 2120; Total Carbon Dioxide 25 mmol/L; pCO2 48.1 mmHg (35-45)
--- NOTE | 2018-07-15 21:57 | RAD_ITS ---
HISTORY: SOB, FEVER EXAM/TECHNIQUE: XR Chest 1 View: COMPARISON: CTA chest earlier same date. FINDINGS: # of images incl. paperwork: 1 Interval progression of multifocal left-sided reticular-nodular opacities and similar but less prominent findings in the right lung base. Mild left-sided volume loss again demonstrated. No apparent pneumothorax or pleural effusion. Heart size normal. RAD/Chest 1 View (Portable) IMPRESSION: Interval progression of left and the right airspace disease most likely multifocal pneumonia. at 2227 Reported and signed by: Joseph Martinez MD Electronically Signed: Joseph Martinez, at 22:26 EST Tel , Service support ,
[2018-07-15] MEDS: Metoprolol Tartrate 5 MG/5 ML Vial 2.5 MG IV (22:40)
[2018-07-15] MEDS: 0.9% NaCl Peripheral Flush Adult/Peds IV ×2 (22:41→23:43)
[2018-07-15] MEDS: Acetaminophen 650 MG/20 ML UDC 500 MG GT (22:42)
[2018-07-15] MEDS: Docusate Sodium 100 MG/10 ML UDC 50 MG GT (22:42)
[2018-07-15] MEDS: Atorvastatin Calcium 40 MG Tablet GT (22:44)
[2018-07-15] MEDS: oxyCODONE 5 MG Tablet 2.5 MG GT (22:44)
[2018-07-15] MEDS: Insulin Lispro 100 UNIT/ML INSULN.PEN SC (22:52)
[2018-07-15 23:01] LABS: Bedside Glucose 170 mg/dL (70-110)
--- NOTE | 2018-07-15 23:28 | NURSING ---
called [facility] and spoke with JANIYA Mauricio to get a more informative baseline on patient, per Dr. Matos's request. Per Luly, patient is normally alert and awake with eyes open most of the day. He is nonverbal but will interact with others. His hands are normally contracted and is complete bedrest. Lung sounds are usually clear but diminished and patient does not wear any oxygen. he gets scheduled breathing treatments but that is it. she states patient hardly requires suctioning. all meds are given through patient's peg tube. i informed this RN that patient was admitted with severe sepsis and they did a CXR on him that showed pneumonia so we are giving patient IV ATBs. i notified her that patient is very lethargic here but will respond occassionally to his name, but always to painful stimuli. patient has had to be suctioned a couple times and is requiring a significant amount of oxygen. patient was desatting on 5L so he is now on a nonrebreather. HR is still elevated but we are closley monitoring him and getting vitals every hour.
[2018-07-15 23:30] LABS: BNP,B-Type NATRIURETIC PEPTIDE 171.1 pg/mL (0-100)
[2018-07-15] MEDS: Furosemide 40 MG/4 ML Vial IV (23:43)
[2018-07-16] VITALS (20 sets, daily range): BP systolic 105–163; BP diastolic 80–132; PULSE 94–122; RESP 17–30; TEMP 35.9–36.7; O2SAT 93–100
--- NOTE | 2018-07-16 00:14 | PCM.RX.CS ---
Consult Pharmacy has been consulted to manage selected antiobiotic: Vancomycin Type of Consult: New start Suspected Infection: Sepsis Labs: Sodium 135 mmol/L (136-145) L 07/15/18 10:10 Potassium 4.2 mmol/L (3.5-5.1) 07/15/18 10:10 Chloride 98 mmol/L (98-107) 07/15/18 10:10 Carbon Dioxide 29.0 mmol/L (21.0-32.0) 07/15/18 10:10 Anion Gap 8 (5-15) 07/15/18 10:10 BUN 31 mg/dL (7-18) H 07/15/18 10:10 Creatinine 0.67 mg/dL (0.70-1.30) L 07/15/18 10:10 Est GFR (MDRD) Af Amer 154 mL/min (>60) 07/15/18 10:10 Est GFR (MDRD) Non-Af 127 mL/min (>60) 07/15/18 10:10 BUN/Creatinine Ratio 46.5 RATIO (10-20) H 07/15/18 10:10 Glucose 170 mg/dL (74-106) H 07/15/18 10:10 Weight used for dosin.27 kg Estimated Creatinine Clearance: 113.5 Goal Trough: 10-15 mcg/mL Pharmacy Plan for Drug Dosing: Pharmacy Service will continue to monitor and adjust dosing as required. Medications Vancomycin HCl 1,500 mg/ (Sodium Chloride) 530 mls @ 250 mls/hr IV Q12H BREANN Discontinued Medications Vancomycin HCl 1,500 mg/ (Sodium Chloride) 530 mls @ 250 mls/hr IV X1 ONE Stop: 07/15/18 16:37 Last Admin: 07/15/18 17:18 Dose: 250 mls/hr Follow-Up Labs: Trough Vancomycin Labs to be done on [date and time ordered]: 07/17 @ 0500
[2018-07-16] MEDS: Albuterol 2.5 MG/3 ML VIAL.NEB. INHALATION ×4 (02:19→19:34)
--- NOTE | 2018-07-16 04:22 | CPS ---
ATEMPTED TO WEAN PT DOWN TO 50% VENTI MASK.PT SATS DROPPED TO 85% ,PT PLACED BACK ON NONREBREATHER AT 100% O2
[2018-07-16] MEDS: Insulin Lispro 100 UNIT/ML INSULN.PEN SC ×2 (04:43→10:52)
[2018-07-16 05:10] LABS: Bedside Glucose 186 mg/dL (70-110)
--- NOTE | 2018-07-16 05:55 | EKG12_ITS ---
Test Reason : Blood Pressure : / mmHG Vent. Rate : 116 BPM Atrial Rate : 119 BPM P-R Int : 000 ms QRS Dur : 106 ms QT Int : 366 ms P-R-T Axes : 000 -69 059 degrees QTc Int : 508 ms Atrial fibrillation Left axis deviation Low voltage QRS Inferior infarct , age undetermined Cannot rule out Anterior infarct , age undetermined Abnormal ECG Confirmed by DEL WADSWORTH, DOMITILA ([id number]), food expeditor MARYLIN ENGLE ([id number]) on 07/19/2018 1:16:03 PM Referred By: Confirmed By:DOMITILA MATHIS MD
[2018-07-16] MEDS: Acetaminophen 650 MG/20 ML UDC 500 MG GT ×3 (06:17→21:46)
[2018-07-16] MEDS: oxyCODONE 5 MG Tablet 2.5 MG GT ×3 (06:17→21:46)
[2018-07-16] MEDS: Budesonide Respules 0.5 MG/2 ML AMPUL.NEB. INHALATION ×2 (06:35→19:36)
[2018-07-16] MEDS: Venlafaxine HCl 75 MG Tablet GT (10:50)
[2018-07-16] MEDS: Polyethylene Glycol 3350 17 GM PACKET GT (10:51)
[2018-07-16] MEDS: Docusate Sodium 100 MG/10 ML UDC 50 MG GT ×2 (10:51→21:45)
[2018-07-16] MEDS: Lansoprazole 15 MG Capsule.DR 30 MG GT ×2 (10:53→21:49)
[2018-07-16 11:05] LABS: Bedside Glucose 169 mg/dL (70-110)
--- NOTE | 2018-07-16 11:55 | CASEMGMT ---
Social Work PCU Received notice that nephew/patient's [facility] Kyle Plascencia would like Roll Out Manager to come in to see patient; also that interested in having patient transition from [facility] services to hospice. Called [facility] at [phone]. Kyle confirms that would like a Roll Out Manager to see patient today, perform last rites (no Eucharist where patient may be given anything by mouth). Kyle confirms agreement to have patient go onto hospice through [facility]. Informed Kyle that [facility] does not do inpatient hospice at hospital, so this would mean transitioning patient back to the snf and admitting to hospice at the snf. Kyle reports before admission to hospice, would like to see patient have more time on antibiotics at the hospital to see if this will help to stabilize symptoms and breathing a bit better before returning to the snf. Kyle reports would like to give patient at least 24 hour more hours at hospital before agreeing to initiation of hospice. Updated RN JULIANO Tavares and SPANISH INSTRUCTOR Althea Ray of conversation with the nephew. Called [facility] and left message on the emergency line of family's request for patient to be seen by universal winding machine operator today. Called [facility] to discuss with nursing of eventual plan for hospice at time of discharge, see what needs to be done beforehand. called , option #1. Spoke with Jose G who will have Porfirio call this publications writer today. Plan: Anticipate return to [facility] in [place] with initiation of hospice. Await call back from [facility]. Continue to assist with coordination of discharge planning for this patient. -BRYANT Hackett, NAIL MAKING MACHINE SETTER
--- NOTE | 2018-07-16 12:31 | PCM.PROGNOTE ---
<Althea Ray - Last Filed: 07/16/18 12:56> Patient Problems: Active and Suspected Problems SIRS (systemic inflammatory response syndrome) (Acute) Elevated lactic acid level (Acute) Esophageal thickening (Acute) Aspiration into airway (Suspected) Subjective: Patient seen and examined. Lethargic. NephewEMMANUEL at bedside. Requesting transition to hospice services. - Physical Exam General: Lethargic HEENT: Atraumatic, PERRLA, EOMI, Normocephalic Oral: Dry Mucosa Neck: Supple, No JVD, Negative Carotid Bruits Lungs: Diminished, - - Coarse breath sounds throughout. Cardiovascular: Regular Rhythm, Normal S1, Normal S2, No murmurs, Tachycardic Abdomen: Bowel Sounds Present, Soft, Non Tender, Non-Distended, Obese Extremities: No clubbing, No cyanosis, No edema, Capillary Refill Less than 3 Seconds Skin: No rashes, No breakdown Musculoskeletal: No Tenderness to Palpation of Joints or Extremities Neurological: Cranial nerves II-XII grossly intact, Neuro grossly intact Psych/Mental Status: - - Unable to assess due to lethargy. Vital Signs Temp Pulse Resp BP Pulse Ox 97.8 F 113 H 17 127/86 H 100 07/16/18 10:00 07/16/18 10:00 07/16/18 10:00 07/16/18 10:00 07/16/18 10:00 Oxygen Flow Rate (L/min) 10 Oxygen Delivery Method Non-Rebreather Weight: 188 lb 4.396 oz Body Mass Index (BMI) 26.9 Intake and Output for Last 24 Hours 07/14/18 07/15/18 07/16/18 23:59 23:59 23:59 Intake Total 1283.9 / 1283.9 730 / 730 Balance 1283.9 / 1283.9 730 / 730 Microbiology Past 72 Hours 07/15/18 21:30 Respiratory Panel (PCR) - Final Mucosa - Nasopharyngeal Human [place] Laboratory Tests Past 24 Hrs 07/15/18 07/15/18 07/15/18 10:10 10:10 15:29 Specimen Type Sample Site pH Bicarbonate Actual POC Total CO2 Base Excess O2 Saturation ABG pCO2 ABG pO2 Flaquito Test O2 Delivery Device Liter Flow Blood Gas Notified Whom Blood Gas Notified Time Lactic Acid 1.3 Magnesium 1.9 Troponin I B-Natriuretic Peptide 171.1 H TSH 0.59 07/15/18 07/15/18 07/15/18 17:25 20:20 21:15 Specimen Type ART Sample Site R Radial pH Pending Bicarbonate Actual Pending POC Total CO2 Pending Base Excess Pending O2 Saturation Pending ABG pCO2 Pending ABG pO2 50 L [place] Test POS O2 Delivery Device NRB Mask Liter Flow 15.0 Blood Gas Notified Whom [facility] Blood Gas Notified Time 2109 Lactic Acid Magnesium Troponin I 0.030 0.028 B-Natriuretic Peptide TSH 07/15/18 21:24 Specimen Type ART Sample Site R Radial pH 7.30 L Bicarbonate Actual 23.8 POC Total CO2 25 Base Excess -3 L O2 Saturation 80 L ABG pCO2 48.1 H ABG pO2 50 L [place] Test POS O2 Delivery Device NRB Mask Liter Flow 15.0 Blood Gas Notified Whom [facility] Blood Gas Notified Time 2119 Lactic Acid Magnesium Troponin I B-Natriuretic Peptide TSH POC Glucose 07/16/18 07/16/18 07/15/18 10:45 04:42 22:51 POC Glucose 169 H 186 H 170 H 07/15/18 16:58 POC Glucose 139 H Medical Necessity - Tobacco Use Smoking Status: Former smoker - Patient with a 1 pack/day x 51-year tobacco use history. Tobacco Use: Non-smoker Assessment/Plan All Active Problems SIRS (systemic inflammatory response syndrome) (Acute) Elevated lactic acid level (Acute) Esophageal thickening (Acute) 1. Sepsis secondary to multifocal pneumonia, suspected aspiration pneumonia and human Metapneumo virus-CT of chest on admission without market findings however chest x-ray overnight with multifocal pneumonia. Continue IV aztreonam and IV vancomycin. Blood cultures pending. Albuterol and DuoNeb aerosols. Currently requiring high flow oxygen, 100% nonrebreather. Continue supplement oxygen to maintain O2 sat above 90%. Family wishes for hospice transition but would like to attempt to stabilize patient over the next 24 hours prior to transporting patient back to SNF with hospice services. 2. Junctional tachycardia, new onset-troponin negative. Suspected secondary to #1. Continue to monitor telemetry. Echocardiogram pending. 3. Questionable esophagitis-CT of chest showed circumferential wall thickening of the esophagus. Continue PPI. Patient has not had further emesis. Continue n.p.o. status which is patient's baseline. Status post PEG tube. 4. History of meningioma/CVA-patient has had 2 meningioma resections, most recently in 2018 complicated by postoperative CVA. CT on admission showed normal pressure hydrocephalus status post left occipital craniotomy with a fluid collection in these overlying soft tissue consistent with postoperative seroma. PT/OT/ST. 5. 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 Frequent position changes. Wound RN consult. 6. Hypertension-not on regimen, stable. 7. Hyperlipidemia-continue statin. 8. Depression/anxiety-continue home venlafaxine regimen. 9. Chronic COPD-continue home budesonide, perforomist regimen. As needed albuterol aerosols. 10. Type 2 diabetes [id number] before meals at bedtime with sliding scale insulin. 11. GERD-PPI. 12. Debility-secondary to CVA. Currently residing in SNF. PT/OT. SNF at [place] with hospice. 13. Hospice transition-POA/family requesting hospice transition. Plan for discharge to SNF tomorrow with hospice services. DVT prophylaxis-SCDs This patient was seen by GLEN Villa under the supervision of Dr. Harvey. <Allan Harvey - Last Filed: 07/16/18 13:53> - Physical Exam Vital Signs Temp Pulse Resp BP Pulse Ox 97.8 F 111 H 24 H 127/86 H 98 07/16/18 10:00 07/16/18 13:28 07/16/18 13:28 07/16/18 10:00 07/16/18 13:28 Oxygen Flow Rate (L/min) 15 Oxygen Delivery Method Non-Rebreather Weight: 85.4 kg Body Mass Index (BMI) 26.9 Intake and Output for Last 24 Hours 07/14/18 07/15/18 07/16/18 23:59 23:59 23:59 Intake Total 1283.9 / 1283.9 1177 / 1177 Balance 1283.9 / 1283.9 1177 / 1177 Microbiology Past 72 Hours 07/15/18 21:30 Respiratory Panel (PCR) - Final Mucosa - Nasopharyngeal Human [place] Laboratory Tests Past 24 Hrs 07/15/18 07/15/18 07/15/18 10:10 10:10 15:29 Specimen Type Sample Site pH Bicarbonate Actual POC Total CO2 Base Excess O2 Saturation ABG pCO2 ABG pO2 [place] Test O2 Delivery Device Liter Flow Blood Gas Notified Whom Blood Gas Notified Time Lactic Acid 1.3 Magnesium 1.9 Troponin I B-Natriuretic Peptide 171.1 H TSH 0.59 07/15/18 07/15/18 07/15/18 17:25 20:20 21:15 Specimen Type ART Sample Site R Radial pH Pending Bicarbonate Actual Pending POC Total CO2 Pending Base Excess Pending O2 Saturation Pending ABG pCO2 Pending ABG pO2 50 L [place] Test POS O2 Delivery Device NRB Mask Liter Flow 15.0 Blood Gas Notified Whom [facility] Blood Gas Notified Time 2109 Lactic Acid Magnesium Troponin I 0.030 0.028 B-Natriuretic Peptide TSH 07/15/18 21:24 Specimen Type ART Sample Site R Radial pH 7.30 L Bicarbonate Actual 23.8 POC Total CO2 25 Base Excess -3 L O2 Saturation 80 L ABG pCO2 48.1 H ABG pO2 50 L [place] Test POS O2 Delivery Device NRB Mask Liter Flow 15.0 Blood Gas Notified Whom [facility] Blood Gas Notified Time 2119 Lactic Acid Magnesium Troponin I B-Natriuretic Peptide TSH POC Glucose 07/16/18 07/16/18 07/15/18 10:45 04:42 22:51 POC Glucose 169 H 186 H 170 H 07/15/18 16:58 POC Glucose 139 H Assessment/Plan This patient was seen in conjunction with GLEN Villa . I have independently interviewed and examined the patient and reviewed pertinent historical, laboratory, and other data. Please refer to GLEN Villa note for details of this patient's presentation, findings, and recommendations. I have reviewed GLEN Villa note and concur with documented findings. In brief, patient is a 67-year-old gentleman with history of resection of meningioma resident at an extended care facility brought in with progressive shortness of breath and cough Physical Examination: Assessment: 1. Multifocal pneumonia with suspected aspiration pneumonia as well as human [place] pneumo virus infection 2. Esophagitis 3. History of CVA following meningioma resection 4. Stage IV decubitus ulcer coccyx present on admission 5. Essential hypertension 6. Dyslipidemia 7. Diabetes mellitus type 2 8. Debility Prognosis poor had a discussion with patient's nephew who is his medical POA regarding patient current status patient's medical POA is currently leaning towards hospice consultation following discussion with the rest of the family Recommendations: 1. I have discussed the results of my overview and impressions with the patient 2. Options for management were reviewed Code Visit Inpatient E&M: 01133 Subs Hosp L3
--- NOTE | 2018-07-16 13:25 | CASEMGMT ---
Social Work PCU Received call from Katalina ([phone]) at [facility]. Katalina has set up at 1000 meeting with patient's family at the hospital tomorrow 3.. Katalina confirms that if decision to go with hospice is made, that admission to hospice to occur upon return to the senior living. Confirmed [place] fax number of [phone], faxed order for hospice and pertinent clinical information for referral. Called [facility], spoke with nurse Duke to update of tentative plans. Inquired whether patient has been skilled or intermediate level of care under medicaid. Per Leilani patient recently ended skilled services. Let Leilani know that if all goes well with hospice meeting and patient is stable for transfer then discharge could potentially happen tomorrow. Plan: Discharge pending hospice consult. Anticipate hospice admission upon return to senior living. GREEN Sheet on chart to be followed by nursing in case of weekend discharge. -BRYANT Hackett, ROUNDING AND BACKING MACHINE OPERATOR
[2018-07-16 18:06] LABS: Bedside Glucose 117 mg/dL (70-110)
[2018-07-16] MEDS: Atorvastatin Calcium 40 MG Tablet GT (21:46)
[2018-07-16 22:11] LABS: Bedside Glucose 96 mg/dL (70-110)
[2018-07-17] VITALS (18 sets, daily range): BP systolic 144–165; BP diastolic 71–115; PULSE 91–111; RESP 15–20; TEMP 36–36.8; O2SAT 94–100
[2018-07-17 04:16] LABS: Bedside Glucose 88 mg/dL (70-110)
[2018-07-17 04:19] LABS: Vancomycin, Trough Level 24.2 ug/mL (5.0-15.0)
[2018-07-17] MEDS: oxyCODONE 5 MG Tablet 2.5 MG GT ×3 (06:35→21:42)
[2018-07-17] MEDS: Acetaminophen 650 MG/20 ML UDC 500 MG GT ×3 (06:35→21:43)
[2018-07-17] MEDS: Albuterol 2.5 MG/3 ML VIAL.NEB. INHALATION ×2 (07:52→18:57)
[2018-07-17] MEDS: Budesonide Respules 0.5 MG/2 ML AMPUL.NEB. INHALATION ×2 (07:52→18:57)
[2018-07-17] MEDS: Venlafaxine HCl 75 MG Tablet GT (10:39)
[2018-07-17] MEDS: Lansoprazole 15 MG Capsule.DR 30 MG GT ×2 (10:41→21:42)
[2018-07-17] MEDS: Docusate Sodium 100 MG/10 ML UDC 50 MG GT ×2 (10:41→21:42)
[2018-07-17] MEDS: Polyethylene Glycol 3350 17 GM PACKET GT (10:42)
[2018-07-17 11:25] LABS: Bedside Glucose 73 mg/dL (70-110)
--- NOTE | 2018-07-17 12:23 | PCM.PROGNOTE ---
Patient Problems: Active and Suspected Problems SIRS (systemic inflammatory response syndrome) (Acute) Elevated lactic acid level (Acute) Esophageal thickening (Acute) Aspiration into airway (Suspected) Subjective: Patient seen and examined. More alert today. Nonverbal at baseline. Respiratory status improving. - Physical Exam General: Alert, Cooperative HEENT: Atraumatic, PERRLA, EOMI, Normocephalic Oral: Dry Mucosa Lungs: Diminished, Rales Cardiovascular: Regular Rhythm, Normal S1, Normal S2, No murmurs, Tachycardic Abdomen: Bowel Sounds Present, Soft, Non Tender, Non-Distended Extremities: No clubbing, No cyanosis, No edema, Capillary Refill Less than 3 Seconds Skin: No rashes, No breakdown Musculoskeletal: No Tenderness to Palpation of Joints or Extremities Neurological: Cranial nerves II-XII grossly intact, Neuro grossly intact Psych/Mental Status: Normal Affect, Appropriate Vital Signs Temp Pulse Resp BP Pulse Ox 97.3 F L 101 H 20 H 156/100 H 96 07/17/18 10:37 07/17/18 10:37 07/17/18 10:37 07/17/18 10:37 07/17/18 10:37 Oxygen Flow Rate (L/min) 8 Oxygen Delivery Method Venturi Mask Weight: 186 lb 1.122 oz Body Mass Index (BMI) 26.9 Intake and Output for Last 24 Hours 07/15/18 07/16/18 07/17/18 23:59 23:59 23:59 Intake Total 1283.9 / 1283.9 2438 / 2438 765 / 765 Balance 1283.9 / 1283.9 2438 / 2438 765 / 765 Microbiology Past 72 Hours 07/15/18 13:50 Blood Culture - Preliminary Blood Culture (Wb) - Left Hand No growth in 48 hours. 07/15/18 13:40 Blood Culture - Preliminary Blood Culture (Wb) - Left Wrist No growth in 48 hours. 07/15/18 21:30 Respiratory Panel (PCR) - Final Mucosa - Nasopharyngeal Human [place] Laboratory Tests Past 24 Hrs 07/17/18 03:37 Vancomycin Trough 24.2 H POC Glucose 07/17/18 07/17/18 07/16/18 10:53 04:07 21:55 POC Glucose 73 88 96 07/16/18 17:49 POC Glucose 117 H Medical Necessity - Tobacco Use Smoking Status: Former smoker - Patient with a 1 pack/day x 51-year tobacco use history. Tobacco Use: Non-smoker Assessment/Plan All Active Problems SIRS (systemic inflammatory response syndrome) (Acute) Elevated lactic acid level (Acute) Esophageal thickening (Acute) 1. Sepsis secondary to multifocal pneumonia, suspected aspiration pneumonia and human Metapneumo virus-CT of chest on admission without market findings however chest x-ray overnight with multifocal pneumonia. Continue IV aztreonam and IV vancomycin. Blood cultures pending. Albuterol and DuoNeb aerosols. Continue supplement oxygen to maintain O2 sat above 90%. Family wishes for hospice transition but would like to attempt to stabilize patient over the next 24 hours prior to transporting patient back to SNF with hospice services. Family to meet with hospice tomorrow morning. 2. Junctional tachycardia, new onset-troponin negative. Suspected secondary to #1. Continue to monitor telemetry. Echocardiogram showed an EF of 60%. 3. Questionable esophagitis-CT of chest showed circumferential wall thickening of the esophagus. Continue PPI. Patient has not had further emesis. Continue n.p.o. status which is patient's baseline. Status post PEG tube, tube feeds resumed. 4. History of meningioma/CVA-patient has had 2 meningioma resections, most recently in 2018 complicated by postoperative CVA. CT on admission showed normal pressure hydrocephalus status post left occipital craniotomy with a fluid collection in these overlying soft tissue consistent with postoperative seroma. PT/OT/ST. 5. 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 Frequent position changes. Wound RN consult. 6. Hypertension-not on regimen, stable. 7. Hyperlipidemia-continue statin. 8. Depression/anxiety-continue home venlafaxine regimen. 9. Chronic COPD-continue home budesonide, perforomist regimen. As needed albuterol aerosols. 10. Type 2 diabetes [id number] before meals at bedtime with sliding scale insulin. 11. GERD-PPI. 12. Debility-secondary to CVA. Currently residing in SNF. PT[place]OT. [place] with hospice. 13. Hospice transition-POA/family requesting hospice transition. Plan for discharge to SNF tomorrow with hospice services. DVT prophylaxis-SCDs This patient was seen by GLEN Villa under the supervision of Dr. Kasper.
--- NOTE | 2018-07-17 12:39 | PN_ITS ---
Patient Problems: Active and Suspected Problems SIRS (systemic inflammatory response syndrome) (Acute) Elevated lactic acid level (Acute) Esophageal thickening (Acute) Aspiration into airway (Suspected) Subjective: Patient seen and examined. More alert today. Nonverbal at baseline. Respiratory status improving. - Physical Exam General: Alert, Cooperative HEENT: Atraumatic, PERRLA, EOMI, Normocephalic Oral: Dry Mucosa Lungs: Diminished, Rales Cardiovascular: Regular Rhythm, Normal S1, Normal S2, No murmurs, Tachycardic Abdomen: Bowel Sounds Present, Soft, Non Tender, Non-Distended Extremities: No clubbing, No cyanosis, No edema, Capillary Refill Less than 3 Seconds Skin: No rashes, No breakdown Musculoskeletal: No Tenderness to Palpation of Joints or Extremities Neurological: Cranial nerves II-XII grossly intact, Neuro grossly intact Psych/Mental Status: Normal Affect, Appropriate Vital Signs Temp Pulse Resp BP Pulse Ox 97.3 F L 101 H 20 H 156/100 H 96 07/17/18 10:37 07/17/18 10:37 07/17/18 10:37 07/17/18 10:37 07/17/18 10:37 Oxygen Flow Rate (L/min) 8 Oxygen Delivery Method Venturi Mask Weight: 186 lb 1.122 oz Body Mass Index (BMI) 26.9 Intake and Output for Last 24 Hours 07/15/18 07/16/18 07/17/18 23:59 23:59 23:59 Intake Total 1283.9 / 1283.9 2438 / 2438 765 / 765 Balance 1283.9 / 1283.9 2438 / 2438 765 / 765 Microbiology Past 72 Hours 07/15/18 13:50 Blood Culture - Preliminary Blood Culture (Wb) - Left Hand No growth in 48 hours. 07/15/18 13:40 Blood Culture - Preliminary Blood Culture (Wb) - Left Wrist No growth in 48 hours. 07/15/18 21:30 Respiratory Panel (PCR) - Final Mucosa - Nasopharyngeal Human [place] Laboratory Tests Past 24 Hrs 07/17/18 03:37 Vancomycin Trough 24.2 H POC Glucose 07/17/18 07/17/18 07/16/18 10:53 04:07 21:55 POC Glucose 73 88 96 07/16/18 17:49 POC Glucose 117 H Medical Necessity - Tobacco Use Smoking Status: Former smoker - Patient with a 1 pack/day x 51-year tobacco use history. Tobacco Use: Non-smoker Assessment/Plan All Active Problems SIRS (systemic inflammatory response syndrome) (Acute) Elevated lactic acid level (Acute) Esophageal thickening (Acute) 1. Sepsis secondary to multifocal pneumonia, suspected aspiration pneumonia and human Metapneumo virus-CT of chest on admission without market findings however chest x-ray overnight with multifocal pneumonia. Continue IV aztreonam and IV vancomycin. Blood cultures pending. Albuterol and DuoNeb aerosols. Continue supplement oxygen to maintain O2 sat above 90%. Family wishes for hospice transition but would like to attempt to stabilize patient over the next 24 hours prior to transporting patient back to SNF with hospice services. Family to meet with hospice tomorrow morning. 2. Junctional tachycardia, new onset-troponin negative. Suspected secondary to #1. Continue to monitor telemetry. Echocardiogram showed an EF of 60%. 3. Questionable esophagitis-CT of chest showed circumferential wall thickening of the esophagus. Continue PPI. Patient has not had further emesis. Continue n.p.o. status which is patient's baseline. Status post PEG tube, tube feeds resumed. 4. History of meningioma/CVA-patient has had 2 meningioma resections, most recently in 2018 complicated by postoperative CVA. CT on admission showed normal pressure hydrocephalus status post left occipital craniotomy with a fluid collection in these overlying soft tissue consistent with postoperative seroma. PT/OT/ST. 5. 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 Frequent position changes. Wound RN consult. 6. Hypertension-not on regimen, stable. 7. Hyperlipidemia-continue statin. 8. Depression/anxiety-continue home venlafaxine regimen. 9. Chronic COPD-continue home budesonide, perforomist regimen. As needed albuterol aerosols. 10. Type 2 diabetes [id number]-[id number] before meals at bedtime with sliding scale insulin. 11. GERD-PPI. 12. Debility-secondary to CVA. Currently residing in SNF. PT/OT. SNF at [place] with hospice. 13. Hospice transition-POA/family requesting hospice transition. Plan for dis charge to SNF tomorrow with hospice services. DVT prophylaxis-SCDs This patient was seen by GLEN Villa under the supervision of Dr. Kasper.
[2018-07-17 16:19] LABS: Creatinine, Serum 0.54 mg/dL (0.70-1.30); EST Glomerular Filtration Rate 163 mL/min (>60); Est Glom Filt Rate - Afr Amer 197 mL/min (>60); Estimated Creatinine Clearance 140.82 ml/min
[2018-07-17 16:25] LABS: Vancomycin, Random Level 22.6 ug/mL (0.0-15.0)
[2018-07-17 17:11] LABS: Bedside Glucose 62 mg/dL (70-110)
[2018-07-17] MEDS: Dextrose 50%-Water 25 GM/50 ML DISP.SYRIN IV (17:13)
[2018-07-17 17:26] LABS: Bedside Glucose 148 mg/dL (70-110)
--- NOTE | 2018-07-17 18:01 | PHA.PHARE_ITS ---
Consult Pharmacy has been consulted to manage selected antiobiotic: Vancomycin Type of Consult: Follow-up Suspected Infection: Sepsis Prior Doses of Antibiotics Received/Current Regimen: Patient had been receiving 1500mg IV q12h with the last dose given today at 03:55. Labs: Sodium 135 mmol/L (136-145) L 07/15/18 10:10 Potassium 4.2 mmol/L (3.5-5.1) 07/15/18 10:10 Chloride 98 mmol/L (98-107) 07/15/18 10:10 Carbon Dioxide 29.0 mmol/L (21.0-32.0) 07/15/18 10:10 Anion Gap 8 (5-15) 07/15/18 10:10 BUN 31 mg/dL (7-18) H 07/15/18 10:10 Creatinine 0.54 mg/dL (0.70-1.30) L 07/17/18 16:00 Est GFR (MDRD) Af Amer 197 mL/min (>60) 07/17/18 16:00 Est GFR (MDRD) Non-Af 163 mL/min (>60) 07/17/18 16:00 BUN/Creatinine Ratio 46.5 RATIO (10-20) H 07/15/18 10:10 Glucose 170 mg/dL (74-106) H 07/15/18 10:10 Vancomycin Trough 24.2 ug/mL (5.0-15.0) H 07/17/18 03:37 Random Vancomycin 22.6 ug/mL (0.0-15.0) H 07/17/18 16:00 Microbiology: Microbiology 07/15/18 13:50 Blood Culture (Wb) - Left Hand Blood Culture - Preliminary No growth in 48 hours. 07/15/18 13:40 Blood Culture (Wb) - Left Wrist Blood Culture - Preliminary No growth in 48 hours. 07/15/18 21:30 Mucosa - Nasopharyngeal Respiratory Panel (PCR) - Final Human [employer] Goal Trough: 10-15 mcg/mL Pharmacy Plan for Drug Dosing: The previous trough level obtained early this morning was 24.2. With that result, further dosing was held and another random level was scheduled for this afternoon at 16:00. This returned as 22.6. Since it is still above 20, further dosing will be held until the next random level is back below 20. Will schedule another random level to be drawn tomorrow morning. Pharmacy Service will continue to monitor and adjust dosing as required. Follow-Up Labs: Trough Vancomycin - random level Labs to be done on [date and time ordered]: 07/18/18 06:00
[2018-07-17] MEDS: Atorvastatin Calcium 40 MG Tablet GT (21:42)
[2018-07-17 22:11] LABS: Bedside Glucose 73 mg/dL (70-110)
[2018-07-18] VITALS (9 sets, daily range): BP systolic 126–153; BP diastolic 72–103; PULSE 86–104; RESP 14–17; TEMP 35.9–36.8; O2SAT 96–100
[2018-07-18 03:46] LABS: Bedside Glucose 108 mg/dL (70-110)
[2018-07-18 05:29] LABS: Absolute Lymphocyte Count 0.92 X10^3/ul (0.83-4.51); Absolute Neutrophil Count 8.4 X10^3/uL (2.0-7.7); Basophil# 0.04 X10^3/uL; Basophil% 0.4 % (0-1); Eosinophil# 0.01 X10^3/uL; Eosinophils% 0.1 % (0-5); Hemoglobin 11.4 g/dl (13.0-16.5); Lymphocyte # 0.92 X10^3/ul (4.0); Lymphocyte % 9.4 % (19-41); Mean Corp Hgb Conc 29.2 g/gl (32-36); Mean Corpuscular Hgb 26.4 pg (27.0-32.0); Mean Corpuscular Volume 90.3 fL (80-94); Mean Platelet Vol. 10.4 fl (6.2-12.0); Monocyte# 0.45 X10^3/uL; Monocyte% 4.6 % (0-10); Neutrophil # 8.36 X10^3/uL (2.7-7.7); Neutrophil % 85.3 % (47-70); POSITIVE COUNT NO; POSITIVE DIFFERENTIAL NO; POSITIVE MORPHOLOGY NO; Platelet Count 321 K/mm3 (150-450); RBC Distribution Width CV 15.3 % (11.6-14.6); RBC Distribution Width SD 50.5 fl (35.1-43.9); Red Blood Count 4.32 M/mm3 (4.6-6.2); White Blood Count 9.8 K/mm3 (4.4-11.0)
[2018-07-18] MEDS: Acetaminophen 650 MG/20 ML UDC 500 MG GT (05:38)
[2018-07-18] MEDS: oxyCODONE 5 MG Tablet 2.5 MG GT (05:38)
[2018-07-18] MEDS: Albuterol 2.5 MG/3 ML VIAL.NEB. INHALATION ×2 (06:45→13:09)
[2018-07-18] MEDS: Budesonide Respules 0.5 MG/2 ML AMPUL.NEB. INHALATION (06:45)
--- NOTE | 2018-07-18 07:59 | PCM.RX.CS ---
Consult Pharmacy has been consulted to manage selected antiobiotic: Vancomycin Type of Consult: Follow-up Suspected Infection: Sepsis Labs: Sodium 135 mmol/L (136-145) L 07/15/18 10:10 Potassium 4.2 mmol/L (3.5-5.1) 07/15/18 10:10 Chloride 98 mmol/L (98-107) 07/15/18 10:10 Carbon Dioxide 29.0 mmol/L (21.0-32.0) 07/15/18 10:10 Anion Gap 8 (5-15) 07/15/18 10:10 BUN 31 mg/dL (7-18) H 07/15/18 10:10 Creatinine 0.54 mg/dL (0.70-1.30) L 07/17/18 16:00 Est GFR (MDRD) Af Amer 197 mL/min (>60) 07/17/18 16:00 Est GFR (MDRD) Non-Af 163 mL/min (>60) 07/17/18 16:00 BUN/Creatinine Ratio 46.5 RATIO (10-20) H 07/15/18 10:10 Glucose 170 mg/dL (74-106) H 07/15/18 10:10 Vancomycin Trough 24.2 ug/mL (5.0-15.0) H 07/17/18 03:37 Random Vancomycin 16.0 ug/mL (0.0-15.0) H 07/18/18 05:05 Microbiology: Microbiology 07/15/18 13:50 Blood Culture (Wb) - Left Hand Blood Culture - Preliminary No growth in 48 hours. 07/15/18 13:40 Blood Culture (Wb) - Left Wrist Blood Culture - Preliminary No growth in 48 hours. 07/15/18 21:30 Mucosa - Nasopharyngeal Respiratory Panel (PCR) - Final Human [place] Weight used for dosin.7 kg Estimated Creatinine Clearance: 140ml/min Goal Trough: 10-15 mcg/mL Pharmacy Plan for Drug Dosing: Pt's random level came back at 16.0. Recommend a 1 time dose of 15mg/kg due to pt being discharged (possibly) to snf on hospice on 07/18/18. If pt still here on 07/19/18, pharmacy will continue to dose. Pharmacy Service will continue to monitor and adjust dosing as required. Follow-Up Labs: Trough Vancomycin Labs to be done on [date and time ordered]: random 07/19/18
[2018-07-18] MEDS: Lansoprazole 15 MG Capsule.DR 30 MG GT (09:34)
[2018-07-18] MEDS: Venlafaxine HCl 75 MG Tablet GT (09:34)
--- NOTE | 2018-07-18 10:50 | PCM.EXTCARCO ---
- Diet 07/15/18 16:00 Diet: Nothing Per Oral Is pt able to select menu?: Yes - Routine Orders/Code Status Enema Type: Fleetz Enema Frequency: Daily PRN Suppository Type: Dulcolax 10mg Suppository Frequency: Daily PRN O2 Liters per Minute: 5-8 O2 Frequency: Continuous Keep PO Greater than or Equal to (%): 90 Code Status: DNRCC - Wound(s) RT SMALL TOE Wound Type: Pressure Injury LEFT GREAT TOE Wound Type: Pressure Injury COCCYX Wound Type: Pressure Injury - Suggestions for Active Care Change Position every (hours): 2 Times a day to sit in chair: 3 - Therapies Physical Therapy: Eval and Treat Occupational Therapy: Eval and Treat - Problem/Diagnosis (1) SIRS (systemic inflammatory response syndrome) Status: Acute Current Visit: Yes (2) Elevated lactic acid level Status: Acute Current Visit: Yes (3) Esophageal thickening Status: Acute Current Visit: Yes (4) Meningioma Status: Chronic Current Visit: No (5) CVA (cerebral vascular accident) Status: Chronic Current Visit: No (6) Diabetes mellitus, type II Status: Chronic Current Visit: No (7) HTN (hypertension) Status: Chronic Current Visit: No (8) HLD (hyperlipidemia) Status: Chronic Current Visit: No (9) Anxiety and depression Status: Chronic Current Visit: No (10) COPD (chronic obstructive pulmonary disease) Status: Chronic Current Visit: No (11) AVM (arteriovenous malformation) Status: Chronic Current Visit: No (12) CYNTHIA (obstructive sleep apnea) Status: Chronic Current Visit: No (13) History of DVT (deep vein thrombosis) Status: Chronic Current Visit: No (14) Decubitus ulcer of coccyx Status: Chronic Current Visit: No (15) Aspiration into airway Status: Suspected Current Visit: Yes - Allergies/Procedures Done in Hospital Allergies/Adverse Reactions: Allergies codeine Allergy (Verified 07/15/18 09:15) Unknown Insulins Allergy (Verified 07/15/18 09:15) Unknown Penicillins [PCN] Allergy (Verified 07/15/18 09:15) Unknown Procedures: 2-D Echocardiogram - Type of Care/Length of Stay Estimated LOS: More Than 30 Days Type of Care Needed: Skilled Rehab Potential: Poor Prognosis: Poor - Additional Orders/Day of Discharge H&P will serve as current which was dated: 07/15/18 Day of Discharge: 07/18/18 - Dietary and Speech Recommendations Dietitian Recommendations/Changes: If continuation of TF appropraite, rec Glucerna 1.5 kristen via PEG at goal rate of 55mL/hour w/ 150mL H2O flush every 4 hours to provide 1980 calories, 109 g protein, and 1901 total fluid/day (1001 mL from formula, 900 from flushes). May benefit from 1 packet Vladislav BID (mixed w/ 8oz water) for wound healing. - Follow Up Care Primary Care Physician: Kamilah Lopez [Primary Care Provider] - Please follow up with your Primary Care Physician in: As needed, hospice transition
--- NOTE | 2018-07-18 10:55 | PCM.DC.SUM ---
Discharge Date and Diagnosis Date of Admission: 07/15/18 Date of Discharge: 07/18/18 - Primary Discharge Diagnosis Active and Suspected Problems 1. Sepsis secondary to multifocal pneumonia, suspected aspiration pneumonia and human Metapneumo virus 2. Junctional tachycardia, new onset 3. Questionable esophagitis 4. History of meningioma/CVA 5. 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 6. Hypertension 7. Hyperlipidemia 8. Depression/anxiety 9. Chronic COPD 10. Type 2 diabetes mellitus 11. GERD 12. Debility 13. Hospice transition - Secondary Discharge Diagnosis Chronic Problems Meningioma (Chronic) CVA (cerebral vascular accident) (Chronic) Diabetes mellitus, type II (Chronic) HTN (hypertension) (Chronic) HLD (hyperlipidemia) (Chronic) Anxiety and depression (Chronic) COPD (chronic obstructive pulmonary disease) (Chronic) AVM (arteriovenous malformation) (Chronic) CYNTHIA (obstructive sleep apnea) (Chronic) History of DVT (deep vein thrombosis) (Chronic) Decubitus ulcer of coccyx (Chronic) Hospital Course and Treatment Imaging Results: Diagnostic Data Abdomen/Pelvis CT 07/15/18 10:48 IMPRESSION: Urinary bladder wall thickening. Scattered sigmoid diverticula. Bilateral renal cysts. Electronically Signed: Jose Trejo, at 12:36 EST , Service support , Brain CT 07/15/18 10:48 IMPRESSION: Findings suggestive of normal pressure hydrocephalus. The patient is status post left occipital craniotomy with fluid collection in the overlying soft tissue most likely representing a postoperative seroma. Electronically Signed: Jose Trejo, at 12:39 EST , Service support , Chest CTA 07/15/18 10:49 IMPRESSION: There is no evidence of pulmonary embolism. Circumferential wall thickening of the esophagus throughout its length. Findings suggestive of scarring at the lung bases. Electronically Signed: Jose Trejo, at 12:42 EST , Service support , Chest X-Ray 07/15/18 21:57 IMPRESSION: Interval progression of left and the right airspace disease most likely multifocal pneumonia. at 2227 Reported and signed by: Joseph Martinez MD Electronically Signed: Joseph Martinez, at 22:26 EST Tel , Service support , Consultations 07/15/18 15:59 Consult: Onc/Wound/cloth washer operator Routine Comment: Operations: None Procedures: 2-D Echocardiogram Summary of Care Provided: The patient is a 67 year old M admitted 07/15/2018 due to emesis at SNF. 1. Sepsis secondary to multifocal pneumonia, suspected aspiration pneumonia and human Metapneumo virus-CT of chest on admission without market findings however chest x-ray overnight with multifocal pneumonia. IV aztreonam and IV vancomycin during admission. Blood cultures show no growth. Continue supplement oxygen to maintain O2 sat above 90%. Discharged on 5 more days of clindamycin through G-tube. Oxygen now stable on 5 L nasal cannula. Transition to hospice at discharge. 2. Junctional tachycardia, new onset-troponin negative. Suspected secondary to #1. Echocardiogram showed an EF of 60%. 3. Questionable esophagitis-CT of chest showed circumferential wall thickening of the esophagus. Continue PPI. Patient has not had further emesis. Continue n.p.o. status which is patient's baseline. Status post PEG tube, tube feeds resumed. 4. History of meningioma/CVA-patient has had 2 meningioma resections, most recently in 2018 complicated by postoperative CVA. CT on admission showed normal pressure hydrocephalus status post left occipital craniotomy with a fluid collection in these overlying soft tissue consistent with postoperative seroma. PT/OT/ST. 5. 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 Frequent position changes. 6. Hypertension-not on regimen, stable. 7. Hyperlipidemia-continue statin. 8. Depression/anxiety-continue home venlafaxine regimen. 9. Chronic COPD-continue home budesonide, perforomist regimen. As needed albuterol aerosols for shortness of breath. 10. Type 2 diabetes mellitus-continue home insulin regimen. 11. GERD-PPI. 12. Debility-secondary to CVA. PT/OT. SNF at [place] with hospice. 13. Hospice transition-POA/family requesting hospice transition. Plan for discharge to SNF with hospice services. General: Alert, Cooperative HEENT: Atraumatic, PERRLA, EOMI, Normocephalic Oral: Dry Mucosa Lungs: Diminished, clear to auscultation Cardiovascular: Regular Rhythm, Normal S1, Normal S2, No murmurs, Tachycardic Abdomen: Bowel Sounds Present, Soft, Non Tender, Non-Distended, PEG tube in place Extremities: No clubbing, No cyanosis, No edema, Capillary Refill Less than 3 Seconds Skin: No rashes, chronic decubitus coccyx ulcer and right upper buttock wound Musculoskeletal: No Tenderness to Palpation of Joints or Extremities Neurological: Cranial nerves II-XII grossly intact, Neuro grossly intact Psych/Mental Status: Normal Affect, Appropriate Patient seen and examined prior to discharge. Physical assessment as noted above. Patient is stable for discharge with follow up recommendations as noted above. This patient was seen by GLEN Villa under the supervision of Dr. Kasper. - Physical Exam Vital Signs Temp Pulse Resp BP Pulse Ox 97.8 F 96 14 153/103 H 99 07/18/18 09:20 07/18/18 09:20 07/18/18 09:20 07/18/18 09:20 07/18/18 09:20 Oxygen Flow Rate (L/min) 5 Oxygen Delivery Method Nasal Cannula Weight: 193 lb 5.526 oz Body Mass Index (BMI) 26.9 Intake and Output for Last 24 Hours 07/16/18 07/17/18 07/18/18 23:59 23:59 23:59 Intake Total 2438 / 2438 181 / 181 696.7 / 696.7 Balance 2438 / 2438 1819 / 181 696.7 / 696.7 Microbiology Past 72 Hours 07/15/18 13:50 Blood Culture - Preliminary Blood Culture (Wb) - Left Hand No growth in 48 hours. 07/15/18 13:40 Blood Culture - Preliminary Blood Culture (Wb) - Left Wrist No growth in 48 hours. 07/15/18 21:30 Respiratory Panel (PCR) - Final Mucosa - Nasopharyngeal Human [place] [facility] Tests Past 24 Hrs 0307/17/18 07/18/18 16:00 16:00 05:05 WBC 9.8 RBC 4.32 L Hgb 11.4 L Hct 39.0 L MCV 90.3 MCH 26.4 L MCHC 29.2 L RDW 15.3 H RDW Differential 50.5 H Plt Count 321 MPV 10.4 Immature Gran % (Auto) 0.200 Neut % (Auto) 85.3 H Lymph % (Auto) 9.4 L [place] % (Auto) 4.6 Eos % (Auto) 0.1 Baso % (Auto) 0.4 Absolute Neuts (auto) 8.4 H Absolute Lymphs (auto) 0.92 Total Counted Not Reportable Creatinine 0.54 L Estim Creat Clear Calc 140.82 Est GFR (MDRD) Af Amer 197 Est GFR (MDRD) Non-Af 163 Random Vancomycin 22.6 H 07/18/18 05:05 WBC RBC Hgb Hct MCV MCH MCHC RDW RDW Differential Plt Count MPV Immature Gran % (Auto) Neut % (Auto) Lymph % (Auto) [place] % (Auto) Eos % (Auto) Baso % (Auto) Absolute Neuts (auto) Absolute Lymphs (auto) Total Counted Creatinine Estim Creat Clear Calc Est GFR (MDRD) Af Amer Est GFR (MDRD) Non-Af Random Vancomycin 16.0 H POC Glucose 07/18/18 07/17/18 07/17/18 03:38 21:41 17:19 POC Glucose 108 73 148 H 07/17/18 07/17/18 17:05 10:53 POC Glucose 62 L 73 Home Medications: Medications to take at Discharge Acetaminophen [Tylenol] 500 mg GT Q8H 04/18/18 Atorvastatin Calcium [Lipitor] 40 mg GT QHS 04/18/18 Budesonide 0.5 mg IH Q12H 04/18/18 Formoterol Fumarate [Perforomist] 20 mcg INHALATION BID 04/18/18 Insulin Aspart [Novolog Flexpen] See Protocol SC Q6H 04/18/18 Insulin Glargine,Hum.rec.anlog [Lantus] 30 unit SQ DAILY 04/18/18 Polyethylene Glycol 3350 [Clearlax] 17 gm GT DAILY 04/18/18 Silodosin [Rapaflo] 8 mg GT DAILY 04/18/18 Docusate Sodium [Docu Liquid] 50 mg GT BID 07/15/18 Glucagon,Human Recombinant [Glucagen] 1 mg IJ X1 PRN 07/15/18 Oxycodone HCl 10 mg GT Q8H 07/15/18 Pantoprazole Granules [Protonix Granules for Suspension] 40 mg GT BID 07/15/18 Simethicone 40MG/0.6ML [Mylicon] 80 mg GT ACHS 07/15/18 Venlafaxine HCl [Effexor] 75 mg GT DAILY 07/15/18 Albuterol Aerosols [Ventolin Aerosols] 2.5 mg INHALATION Q4H PRN PRN vial.neb. 07/18/18 Clindamycin Palm Suspension [Cleocin Suspension] 150 mg GT 4X/DAY #100 ml 07/18/18 Menthol/Lanolin/Calamine/Znox [Calmoseptine Ointment] 1 applic TOPICAL Q2H PRN PRN tube 07/18/18 Following Prescrptions Were Given to Patient: Clindamycin Palm Suspension [Cleocin Suspension] 150 mg GT 4X/DAY #100 ml Primary Care Physician: Kamilah Lopez [Primary Care Provider] - Please follow up with your Primary Care Physician in: As needed, hospice transition Disposition: SNF with Hospice Minutes spent on discharge:: 35 Patient Condition:: Guarded Medical Necessity - Tobacco Use Smoking Status: Former smoker - Patient with a 1 pack/day x 51-year tobacco use history. Tobacco Use: Non-smoker Meaningful Use Info Meaningful Use Diagnoses (Choose all that apply): None applicable
[2018-07-18 11:05] LABS: Bedside Glucose 133 mg/dL (70-110)
--- NOTE | 2018-07-18 11:10 | DS.PCM_ITS ---
Discharge Date and Diagnosis Date of Admission: 07/15/18 Date of Discharge: 07/18/18 - Primary Discharge Diagnosis Active and Suspected Problems 1. Sepsis secondary to multifocal pneumonia, suspected aspiration pneumonia and human Metapneumo virus 2. Junctional tachycardia, new onset 3. Questionable esophagitis 4. History of meningioma/CVA 5. 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 6. Hypertension 7. Hyperlipidemia 8. Depression/anxiety 9. Chronic COPD 10. Type 2 diabetes mellitus 11. GERD 12. Debility 13. Hospice transition - Secondary Discharge Diagnosis Chronic Problems Meningioma (Chronic) CVA (cerebral vascular accident) (Chronic) Diabetes mellitus, type II (Chronic) HTN (hypertension) (Chronic) HLD (hyperlipidemia) (Chronic) Anxiety and depression (Chronic) COPD (chronic obstructive pulmonary disease) (Chronic) AVM (arteriovenous malformation) (Chronic) CYNTHIA (obstructive sleep apnea) (Chronic) History of DVT (deep vein thrombosis) (Chronic) Decubitus ulcer of coccyx (Chronic) Hospital Course and Treatment Imaging Results: Diagnostic Data Abdomen/Pelvis CT 07/15/18 10:48 IMPRESSION: Urinary bladder wall thickening. Scattered sigmoid diverticula. Bilateral renal cysts. Electronically Signed: Jose Trejo, at 12:36 EST , Service support , Brain CT 07/15/18 10:48 IMPRESSION: Findings suggestive of normal pressure hydrocephalus. The patient is status post left occipital craniotomy with fluid collection in the overlying soft tissue most likely representing a postoperative seroma. Electronically Signed: Jose Trejo, at 12:39 EST , Service support , Chest CTA 07/15/18 10:49 IMPRESSION: There is no evidence of pulmonary embolism. Circumferential wall thickening of the esophagus throughout its length. Findings suggestive of scarring at the lung bases. Electronically Signed: Jose Trejo, at 12:42 EST , Service support , Chest X-Ray 07/15/18 21:57 IMPRESSION: Interval progression of left and the right airspace disease most likely multifocal pneumonia. at 2227 Reported and signed by: Joseph Martinez MD Electronically Signed: Joseph Martinez, at 22:26 EST Tel , Service support , Consultations 07/15/18 15:59 Consult: Onc/Wound/yeast culture developer Routine Comment: Operations: None Procedures: 2-D Echocardiogram Summary of Care Provided: The patient is a 67 year old M admitted 07/15/2018 due to emesis at SNF. 1. Sepsis secondary to multifocal pneumonia, suspected aspiration pneumonia and human Metapneumo virus-CT of chest on admission without market findings however chest x-ray overnight with multifocal pneumonia. IV aztreonam and IV vancomycin during admission. Blood cultures show no growth. Continue supplement oxygen to maintain O2 sat above 90%. Discharged on 5 more days of clindamycin through G- tube. Oxygen now stable on 5 L nasal cannula. Transition to hospice at discharge. 2. Junctional tachycardia, new onset-troponin negative. Suspected secondary to #1. Echocardiogram showed an EF of 60%. 3. Questionable esophagitis-CT of chest showed circumferential wall thickening of the esophagus. Continue PPI. Patient has not had further emesis. Continue n.p.o. status which is patient's baseline. Status post PEG tube, tube feeds resumed. 4. History of meningioma/CVA-patient has had 2 meningioma resections, most recently in 2018 complicated by postoperative CVA. CT on admission showed normal pressure hydrocephalus status post left occipital craniotomy with a fluid collection in these overlying soft tissue consistent with postoperative seroma. PT/OT/ST. 5. 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 Frequent position changes. 6. Hypertension-not on regimen, stable. 7. Hyperlipidemia-continue statin. 8. Depression/anxiety-continue home venlafaxine regimen. 9. Chronic COPD-continue home budesonide, perforomist regimen. As needed albuterol aerosols for shortness of breath. 10. Type 2 diabetes mellitus-continue home insulin regimen. 11. GERD-PPI. 12. Debility-secondary to CVA. PT/OT. SNF at [place] with hospice. 13. Hospice transition-POA/family requesting hospice transition. Plan for discharge to SNF with hospice services. General: Alert, Cooperative HEENT: Atraumatic, PERRLA, EOMI, Normocephalic Oral: Dry Mucosa Lungs: Diminished, clear to auscultation Cardiovascular: Regular Rhythm, Normal S1, Normal S2, No murmurs, Tachycardic Abdomen: Bowel Sounds Present, Soft, Non Tender, Non-Distended, PEG tube in place Extremities: No clubbing, No cyanosis, No edema, Capillary Refill Less than 3 Seconds Skin: No rashes, chronic decubitus coccyx ulcer and right upper buttock wound Musculoskeletal: No Tenderness to Palpation of Joints or Extremities Neurological: Cranial nerves II-XII grossly intact, Neuro grossly intact Psych/Mental Status: Normal Affect, Appropriate Patient seen and examined prior to discharge. Physical assessment as noted above. Patient is stable for discharge with follow up recommendations as noted above. This patient was seen by GLEN Villa under the supervision of Dr. Kasper. - Physical Exam Vital Signs Temp Pulse Resp BP Pulse Ox 97.8 F 96 14 153/103 H 99 07/18/18 09:20 07/18/18 09:20 07/18/18 09:20 07/18/18 09:20 07/18/18 09:20 Oxygen Flow Rate (L/min) 5 Oxygen Delivery Method Nasal Cannula Weight: 193 lb 5.526 oz Body Mass Index (BMI) 26.9 Intake and Output for Last 24 Hours 07/16/18 07/17/18 07/18/18 23:59 23:59 23:59 Intake Total 2438 / 2438 181 / 181 696.7 / 696.7 Balance 2438 / 2438 1819 / 181 696.7 / 696.7 Microbiology Past 72 Hours 07/15/18 13:50 Blood Culture - Preliminary Blood Culture (Wb) - Left Hand No growth in 48 hours. 07/15/18 13:40 Blood Culture - Preliminary Blood Culture (Wb) - Left Wrist No growth in 48 hours. 07/15/18 21:30 Respiratory Panel (PCR) - Final Mucosa - Nasopharyngeal Human [facility] Tests Past 24 Hrs 0307/17/18 07/18/18 16:00 16:00 05:05 WBC 9.8 RBC 4.32 L Hgb 11.4 L Hct 39.0 L MCV 90.3 MCH 26.4 L MCHC 29.2 L RDW 15.3 H RDW Differential 50.5 H Plt Count 321 MPV 10.4 Immature Gran % (Auto) 0.200 Neut % (Auto) 85.3 H Lymph % (Auto) 9.4 L [place] % (Auto) 4.6 Eos % (Auto) 0.1 Baso % (Auto) 0.4 Absolute Neuts (auto) 8.4 H Absolute Lymphs (auto) 0.92 Total Counted Not Reportable Creatinine 0.54 L Estim Creat Clear Calc 140.82 Est GFR (MDRD) Af Amer 197 Est GFR (MDRD) Non-Af 163 Random Vancomycin 22.6 H 07/18/18 05:05 WBC RBC Hgb Hct MCV MCH MCHC RDW RDW Differential Plt Count MPV Immature Gran % (Auto) Neut % (Auto) Lymph % (Auto) [place] % (Auto) Eos % (Auto) Baso % (Auto) Absolute Neuts (auto) Absolute Lymphs (auto) Total Counted Creatinine Estim Creat Clear Calc Est GFR (MDRD) Af Amer Est GFR (MDRD) Non-Af Random Vancomycin 16.0 H POC Glucose 07/18/18 07/17/18 07/17/18 03:38 21:41 17:19 POC Glucose 108 73 148 H 07/17/18 07/17/18 17:05 10:53 POC Glucose 62 L 73 Home Medications: Medications to take at Discharge Acetaminophen [Tylenol] 500 mg GT Q8H 04/18/18 Atorvastatin Calcium [Lipitor] 40 mg GT QHS 04/18/18 Budesonide 0.5 mg IH Q12H 04/18/18 Formoterol Fumarate [Perforomist] 20 mcg INHALATION BID 04/18/18 Insulin Aspart [Novolog Flexpen] See Protocol SC Q6H 04/18/18 Insulin Glargine,Hum.rec.anlog [Lantus] 30 unit SQ DAILY 04/18/18 Polyethylene Glycol 3350 [Clearlax] 17 gm GT DAILY 04/18/18 Silodosin [Rapaflo] 8 mg GT DAILY 04/18/18 Docusate Sodium [Docu Liquid] 50 mg GT BID 07/15/18 Glucagon,Human Recombinant [Glucagen] 1 mg IJ X1 PRN 07/15/18 Oxycodone HCl 10 mg GT Q8H 07/15/18 Pantoprazole Granules [Protonix Granules for Suspension] 40 mg GT BID 07/15/18 Simethicone 40MG/0.6ML [Mylicon] 80 mg GT ACHS 07/15/18 Venlafaxine HCl [Effexor] 75 mg GT DAILY 07/15/18 Albuterol Aerosols [Ventolin Aerosols] 2.5 mg INHALATION Q4H PRN PRN vial.neb. 07/18/18 Clindamycin Palm Suspension [Cleocin Suspension] 150 mg GT 4X/DAY #100 ml 07/18/18 Menthol/Lanolin/Calamine/Znox [Calmoseptine Ointment] 1 applic TOPICAL Q2H PRN PRN tube 07/18/18 Following Prescrptions Were Given to Patient: Clindamycin Palm Suspension [Cleocin Suspension] 150 mg GT 4X/DAY #100 ml Primary Care Physician: Kamilah Lopez [Primary Care Provider] - Please follow up with your Primary Care Physician in: As needed, hospice transition Disposition: SNF with Hospice Minutes spent on discharge:: 35 Patient Condition:: Guarded Medical Necessity - Tobacco Use Smoking Status: Former smoker - Patient with a 1 pack/day x 51-year tobacco use history. Tobacco Use: Non-smoker Meaningful Use Info Meaningful Use Diagnoses (Choose all that apply): None applicable
--- NOTE | 2018-07-18 12:12 | CASEMGMT ---
Pt LINDA is in pt electronic medical record and a copy on the chart. KARLY Solano
--- NOTE | 2018-07-18 12:16 | CASEMGMT ---
Social Work Pt and family met with [facility] today and opted to enroll in hospice services and pt will discharge to [facility] today. SW spoke with hospice nurse Kimmy who states she set transportation up for 2:00. Phone call to [facility] and orders faxed. Nursing notified of d/c time. KARLY Solano
--- NOTE | 2018-07-18 15:00 | NURSING ---
wound photo: sacrum
== END 2018-07-18 14:30 | disposition hospice, inpatient (51) | DRG 871 ==
LOC: ED 14:46 → PCU 15:31
PROVIDERS: Hospitalist; Internal Medicine; Nurse Practitioner Family; Admitting Provider Family Medicine; Emergency Provider Emergency Medicine; Family Provider Internal Medicine Geriatric Medicine; PCP Internal Medicine Geriatric Medicine; Visit Provider Internal Medicine
DX: A41.9 Sepsis, unspecified organism (principal); L89.153 Pressure ulcer of sacral region, stage 3; J69.0 Pneumonitis due to inhalation of food and vomit; J12.3 Human metapneumovirus pneumonia; I47.1 Supraventricular tachycardia; I69.351 Hemiplegia and hemiparesis following cerebral infarction affecting right dominant side; G91.2 (Idiopathic) normal pressure hydrocephalus; Z51.5 Encounter for palliative care; Z93.1 Gastrostomy status; E78.5 Hyperlipidemia, unspecified; F32.9 Major depressive disorder, single episode, unspecified; F41.9 Anxiety disorder, unspecified; J44.9 Chronic obstructive pulmonary disease, unspecified; E11.9 Type 2 diabetes mellitus without complications; R53.81 Other malaise; K21.0 Gastro-esophageal reflux disease with esophagitis; I10 Essential (primary) hypertension; G47.33 Obstructive sleep apnea (adult) (pediatric); Z86.011 Personal history of benign neoplasm of the brain; Z87.891 Personal history of nicotine dependence; I69.391 Dysphagia following cerebral infarction; R13.12 Dysphagia, oropharyngeal phase; Z74.01 Bed confinement status; Z66 Do not resuscitate; Z86.718 Personal history of other venous thrombosis and embolism
CPT/HCPCS: 36415; 36600; 70450; 71045; 71275; 74177; 80053; 80202; 81001; 82565; 82803; 82962; 83605; 83690; 83735; 83880; 84443; 84484; 85025; 85610; 85730; 87040; 87633; 92526; 92610; 93005; 93306; 94640; 97161; 97166; 97530; 97535; 97802; 99285; J7030; J7040; Q9957; Q9967; A4216; C8929; J1940; J2405

== ENCOUNTER → 2019-04-23 17:44 | Outpatient (CLI) | payer MEDICARE, SELFPAY ==
[2018-07-15 16:13] VITALS: BMI 26.9
[2019-04-23 17:52] LABS: Absolute Lymphocyte Count 2.41 X10^3/uL (0.83-4.51); Absolute Neutrophil Count 8.3 X10^3/uL (2.0-7.7); Basophil# 0.09 X10^3/uL; Basophil% 0.8 % (0-1); Eosinophil# 0.18 X10^3/uL; Eosinophils% 1.5 % (0-5); Hematocrit 42.3 % (40-54); Hemoglobin 12.6 g/dL (13.0-16.5); Lymphocyte # 2.41 X10^3/ul (4.0); Lymphocyte % 20.3 % (19-41); Mean Corp Hgb Conc 29.8 g/dL (32-36); Mean Corpuscular Hgb 24.5 pg (27.0-32.0); Mean Corpuscular Volume 82.3 fL (80-94); Mean Platelet Vol. 10.6 fl (6.2-12.0); Monocyte# 0.81 X10^3/uL; Monocyte% 6.8 % (0-10); NRBC Flagged by Analyzer 0 % (0-5); Platelet Count 321 K/mm3 (150-450); RBC Distribution Width CV 16.8 % (11.6-14.6); RBC Distribution Width SD 49.8 fl (35.1-43.9); Red Blood Count 5.14 M/mm3 (4.6-6.2); White Blood Count 11.9 K/mm3 (4.4-11.0)
== END ==
PROVIDERS: Family Provider Internal Medicine Geriatric Medicine; PCP Internal Medicine Geriatric Medicine; Visit Provider Family Medicine
DX: R11.10 Vomiting, unspecified (principal)
CPT/HCPCS: 85025; 86140

== ENCOUNTER 2019-04-24 18:06 | Emergency (ER) | payer MEDICARE, MEDICAID, SELFPAY ==
[2018-07-15 16:13] VITALS: BMI 26.9
[2019-04-24 18:08] VITALS: BP 118/81; PULSE 83; RESP 18; TEMP 36.8; O2SAT 97; BMI 27.1
--- NOTE | 2019-04-24 18:14 | ED.RN ---
PT IS A [facility]IC FROM [facility]. PT HATES THE FACILITY AND THE NURSES THAT WORK THERE
[2019-04-24 19:04] LABS: Absolute Lymphocyte Count 2.18 X10^3/uL (0.83-4.51); Absolute Neutrophil Count 8.2 X10^3/uL (2.0-7.7); Basophil# 0.08 X10^3/uL; Basophil% 0.7 % (0-1); Eosinophil# 0.18 X10^3/uL; Eosinophils% 1.5 % (0-5); Hematocrit 41.1 % (40-54); Hemoglobin 12.3 g/dL (13.0-16.5); Lymphocyte # 2.18 X10^3/ul (4.0); Lymphocyte % 18.5 % (19-41); Mean Corp Hgb Conc 29.9 g/dL (32-36); Mean Corpuscular Hgb 24.5 pg (27.0-32.0); Mean Corpuscular Volume 81.9 fL (80-94); Mean Platelet Vol. 10.6 fl (6.2-12.0); Monocyte# 1.07 X10^3/uL; Monocyte% 9.1 % (0-10); NRBC Flagged by Analyzer 0 % (0-5); Neutrophil # 8.16 X10^3/uL (2.7-7.7); Neutrophil % 69.4 % (47-70); Platelet Count 294 K/mm3 (150-450); RBC Distribution Width CV 16.9 % (11.6-14.6); RBC Distribution Width SD 50.4 fl (35.1-43.9); Red Blood Count 5.02 M/mm3 (4.6-6.2); White Blood Count 11.8 K/mm3 (4.4-11.0)
[2019-04-24 19:06] VITALS: BP 119/83; PULSE 82; RESP 16; O2SAT 97
[2019-04-24 19:27] LABS: ALB/GLOB Ratio 0.6 RATIO (0.9-2.4); AST(SGOT) 8 U/L (15-37); Alanine Aminotransfer ALT/SGPT 15 U/L (16-61); Albumin, Serum 2.6 g/dL (3.2-5.0); Alkaline Phosphatase 99 U/L (45-117); Anion Gap 5 (5-15); BUN 31 mg/dL (7-18); BUN/Creat Ratio 28.2 RATIO (10-20); Calcium,Total 8.9 mg/dL (8.5-10.1); Chloride 108 mmol/L (98-107); EST Glomerular Filtration Rate 71 mL/min (>60); Est Glom Filt Rate - Afr Amer 86 mL/min (>60); Estimated Creatinine Clearance 68.21 ml/min; Globulin 4.5 g/dL (2.2-4.2); Glucose 168 mg/dL (74-106); Potassium 4.3 mmol/L (3.5-5.1); Protein, Total 7.1 g/dL (6.4-8.2); Sodium Level 139 mmol/L (136-145); Thyroid Stim Hormone (TSH) 0.32 uIU/mL (0.358-3.74)
[2019-04-24 19:47] LABS: Mucous, Urine 0 SEEN /hpf (<or=2+); Squamous Epithelial Cells - UA 0 SEEN /hpf (0-5)
[2019-04-24 19:57] LABS: Alcohol, Blood (Medical)-Serum < 3.0 mg/dL
--- NOTE | 2019-04-24 19:58 | CM.ED ---
SOCIAL WORK INFORMANT: DR. MAZA REASON FOR REFERRAL: MENTAL HEALTH MET WITH PATIENT AND PATIENT'S NEPHEW/ASHLYNCLARISSA IN ROOM. INTRODUCED ROLE AND REASON FOR REFERRAL. PATIENT YELLING THE PLACE I AM IN IS A DUMP. PATIENT FROM THE AVENUE. NEPHEW STATES OVER LAST 6 WEEKS PATIENT HAS HAD AN INCREASE IN AGITATION AND DELUSIONS. PATIENT BELIEVES THE PHARMACY AT FACILITY HAS RATS AND THEY ARE TRYING TO POISON HIM. [facility] FACILITY WAS TO START PATIENT ON DEPAKOTE AND ZYPREXA AND WERE NEVER STARTED. [facility] IS IN THE PROCESS OF FINDING NEW FACILITY FOR PATIENT THAT CAN MANAGE TBI. PATIENT WITH HISTORY OF CVA. [facility] WILL NOT APPROVE PATIENT BE SENT TO PSYCH FACILITY. [facility] STATES UPSET PATIENT WAS SENT TO THE EMERGENCY ROOM AND SHOULD HAVE BEEN SENT TO [facility] WHERE HIS DOCTORS ARE. INFORMED PATIENT REFUSING CT AND NEPHEW DOES NOT FEEL CT IS NEEDED. NEPHEW WISHES TO SPEAK WITH PHYSICIAN. DR. MAZA UPDATED ON THIS WORKER'S CONVERSATION WITH PATIENT AND NEPHEW. DR. MAZA TO FOLLOW UP. PLAN: NIYA STEVEN, SANITATION ENGINEER, DROP FORGE OPERATOR.
[2019-04-24 20:00] VITALS: BP 121/78; PULSE 88; RESP 16; O2SAT 96
[2019-04-24 20:02] LABS: Amphetamine Urine VISTA NEGATIVE (<1000 ng/mL); Barbiturate Urine VISTA NEGATIVE (< 200 ng/mL); Benzodiazepine Urine VISTA NEGATIVE (< 200 ng/mL); Cocaine Urine VISTA NEGATIVE (< 300 ng/mL); Ecstacy Urine VISTA NEGATIVE (< 500 ng/mL); Methadone Urine VISTA NEGATIVE (< 300 ng/mL); PCP Urine VISTA NEGATIVE (< 25 ng/mL); THC Urine VISTA NEGATIVE (< 50 ng/mL); Vista UDS pH Range 5
[2019-04-24 20:03] LABS: Color, Urine Yellow (Yellow); Glucose, Dipstick Normal (Normal); Ketone-Dipstick Negative (Negative); Leukocyte Esterase-Dipstick 500 /ul (Negative); Nitrite-Dipstick Positive (Negative); Occult Blood-Urine 150 /ul (Negative); Protein-Dipstick 100 mg/dl (Negative); Urine Bilirubin Dipstick Negative (Negative); Urine Clarity Clear (Clear); Urine Urobilinogen Normal (Normal)
[2019-04-24 20:05] LABS: Bacteria 1+ /hpf (None Seen); Red Blood Cells-Urine 0-5 SEEN /hpf (0-5); White Blood Cells 10-25 SEEN /hpf (0-5)
--- NOTE | 2019-04-24 20:38 | ED.DCSUM_ITS ---
- ER Visit Summary Date of Service: 04/24/19 Chief Complaint: Agitated and paranoid History of Present Illness: The patient is a [address] Billy Hilario. Nephew who is his power of compliance attorney is here. He reports that he works as a psychoanalyst. He reports that over the past 60 days the patient has been more agitated and had delusional thinking. He is examples as he thinks that the pharmacy is poisoning him and that there is a rodent infestation in it. He also thinks that the kitchen workers are conspiring against him. [facility]. Patient does have a history of bipolar and PTSD. 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 He was never placed back on this. Review of systems: General: No fever, chills, cold sweats. Cardiovascular: No chest pain, palpitations. Respiratory: No cough, shortness of breath, dyspnea on exertion. Gastrointestinal: No abdominal pain, nausea, vomiting, diarrhea, melena, or hematochezia. Skin: No rash. Neuro: No headache, numbness, weakness. Physical Examination: Vitals: Stable. Afebrile. General: Well-nourished and well-developed. Head: Normocephalic atraumatic. Neck: Supple, no lymphadenopathy. No JVD. Nontender. Cardiovascular: Regular rate and rhythm. No murmurs. Respiratory: No respiratory distress. Clear to auscultation bilaterally. Abdominal: Soft, nontender, nondistended, normal bowel sounds. No guarding, rebound, or peritoneal signs. PEG tube site is clean, dry, and intact. There is minimal erythema. He has a Lema catheter in place. Back: Nontender. Extremities: Nontender, no edema. Skin: Normal color, no rash. Neurologic: Alert and oriented ?3. Cranial nerves II through XII are intact. Normal strength and sensation. Psych: Labile affect. Test Results: CBC shows a white count 11.8 with 19 lymphocytes. Hemoglobin 12.3. Chem-7 shows a chloride 108, BUN 31, glucose 168. LFTs are microglobulin of 2.6, gamma 4.5, ALT 15, AST of 8. UA shows 10-25 white blood cells. However this is off of the Lema catheter. This was sent for culture. Troponin is negative. Talk screen is normal. The alcohol is normal. TSH is 0.32. Patient refused a chest x-ray or a CT of the head. Emergency Department Course and Treatment: Nephew who is the power of compliance attorney does not want the patient transferred to a psychiatric facility. He would like him just started back on his Depakote. Treatment Plan: The patient was discussed with Dr. Hilario who would like him placed on Depakote 250 mg twice daily and Seroquel 50 mg p.o. nightly. He states that he will see the patient tomorrow and if he continues to be agitated and paranoid that he may require transfer to a psychiatric hospital. This was discussed with the power of compliance attorney who understands this. Return to the emergency department for any worsening symptoms. Disposition: To home in improved and stable condition. Impression: 1. Bipolar disorder. This note was generated with [employer] dictation software. It may contain incorrect words, spelling, and punctuation that were not noted in review of the chart prior to signing ED Disposition - Plan for ED Patient: Disposition: Home or Assisted Living Instructions: Bipolar Disorder Prescriptions: Divalproex Sodium [Depakote] 250 mg PO BIDCM #60 tab Prescription Printed Quetiapine Fumarate [Seroquel] 50 mg PO QHS #30 tab Prescription Printed Referrals: Billy Hernandez MD [STAFF PHYSICIAN] - 1 Day
[2019-04-24] MEDS: QUEtiapine 25 MG Tablet 50 MG PO (21:23)
[2019-04-24] MEDS: Divalproex Sodium 250 MG Tablet PO (21:28)
[2019-04-24 21:30] VITALS: BP 118/72; PULSE 86; RESP 17; O2SAT 97
--- NOTE | 2019-04-24 21:46 | ED.RN ---
REPORT CALLED [facility] AT [phone] NURSE AMARO.
--- NOTE | 2019-04-27 08:54 | ED.RN ---
Spoke to Shima at [facility] to inform of pt urine culture results. I will fax them to [phone].
== END 2019-04-24 21:48 | disposition home or self-care (01) ==
LOC: ED 18:57
PROVIDERS: Emergency Provider Emergency Medicine; Family Provider Internal Medicine Geriatric Medicine; PCP Internal Medicine Geriatric Medicine
DX: F31.9 Bipolar disorder, unspecified (principal); F43.10 Post-traumatic stress disorder, unspecified; E11.9 Type 2 diabetes mellitus without complications; Z79.4 Long term (current) use of insulin; Z79.899 Other long term (current) drug therapy; Z86.73 Personal history of transient ischemic attack (TIA), and cerebral infarction without residual deficits
CPT/HCPCS: 80053; 80307; 80320; 81001; 84443; 84484; 85025; 87077; 87086; 87088; 87186; 99285; G0480